=== PATIENT | male | born 1940 | race Caucasian/White ===

== ENCOUNTER → 2017-08-28 09:36 | Outpatient (CLI) | payer MEDICARE, BC, SELFPAY ==
--- NOTE | 2017-08-31 08:44 | LEAS ---
Arterial Study - Arterial Study Arterial Study: This is a 77-year-old male with a history of coronary artery disease, myocardial infarction, and hyperlipidemia. The patient presents with physical findings consistent with peripheral arterial occlusive disease, and ischemic changes in the distal lower extremities. Suspecting the presence of atherosclerotic peripheral arterial occlusive disease, the patient was brought to the noninvasive vascular laboratory at this time for the purpose of bilateral noninvasive lower extremity arterial assessment. Doppler signal assessment was used to evaluate the pulses at ankle level bilaterally. The posterior tibial and dorsalis pedis pulses were triphasic bilaterally. Segmental limb pressures were obtained bilaterally. The right ankle pressure, as determined by posterior tibial pulse, was measured at 168 mmHg. The right ankle pressure, as determined by dorsalis pedis pulse, could not be determined due to the noncompressibility of the vasculature. The right digital pressure was measured at 144 mmHg. The left ankle pressure, as determined by posterior tibial pulse, was measured at 215 mmHg. The left ankle pressure, as determined by dorsalis pedis pulse, could not be determined due to the noncompressibility of the vasculature. The left digital pressure was measured at 36 mmHg. Pulse-volume recordings were obtained bilaterally and segmentally. Waveform amplitudes appeared to be markedly diminished bilaterally at all digital levels, but for the right first digit. Resting ankle-brachial indices were calculated bilaterally. The resting right ankle-brachial index was calculated to be 1.27. The resting left ankle-brachial index was calculated to be 1.63. Digital-brachial indices were calculated bilaterally. The right digital-brachial index was calculated to be 1.09. The left digital-brachial index was calculated to be 0.27. Impression: Based upon the findings of this resting noninvasive lower extremity study, there is evidence of arterial calcification bilaterally. The arterial tree is noncompressible at ankle level bilaterally based upon dorsalis pedis pulse assessment. Triphasic waveforms were noted at ankle level bilaterally, which suggests relatively normal arterial flow at this level. The resting right ankle-brachial index appears to be normal. The resting left ankle-brachial index appears to be supra-normal. The presence of arterial calcification may artifactually elevate pressures and indices, with results that may not accurately reflect the presence of arterial occlusive disease. The right digital-brachial index is normal. The left digital-brachial index is severely diminished, suggesting the presence of severe, distal, small-vessel arterial occlusive disease in the left lower extremity, for which clinical correlation is advised.
--- NOTE | 2017-08-31 08:50 | LEAS_ITS ---
Arterial Study - Arterial Study Arterial Study: This is a 77-year-old male with a history of coronary artery disease, myocardial infarction, and hyperlipidemia. The patient presents with physical findings consistent with peripheral arterial occlusive disease, and ischemic changes in the distal lower extremities. Suspecting the presence of atherosclerotic peripheral arterial occlusive disease, the patient was brought to the noninvasive vascular laboratory at this time for the purpose of bilateral noninvasive lower extremity arterial assessment. Doppler signal assessment was used to evaluate the pulses at ankle level bilaterally. The posterior tibial and dorsalis pedis pulses were triphasic bilaterally. Segmental limb pressures were obtained bilaterally. The right ankle pressure, as determined by posterior tibial pulse, was measured at 168 mmHg. The right ankle pressure, as determined by dorsalis pedis pulse, could not be determined due to the noncompressibility of the vasculature. The right digital pressure was measured at 144 mmHg. The left ankle pressure, as determined by posterior tibial pulse, was measured at 215 mmHg. The left ankle pressure, as determined by dorsalis pedis pulse, could not be determined due to the noncompressibility of the vasculature. The left digital pressure was measured at 36 mmHg. Pulse-volume recordings were obtained bilaterally and segmentally. Waveform amplitudes appeared to be markedly diminished bilaterally at all digital levels , but for the right first digit. Resting ankle-brachial indices were calculated bilaterally. The resting right ankle-brachial index was calculated to be 1.27. The resting left ankle- brachial index was calculated to be 1.63. Digital-brachial indices were calculated bilaterally. The right digital- brachial index was calculated to be 1.09. The left digital-brachial index was calculated to be 0.27. Impression: Based upon the findings of this resting noninvasive lower extremity study, there is evidence of arterial calcification bilaterally. The arterial tree is noncompressible at ankle level bilaterally based upon dorsalis pedis pulse assessment. Triphasic waveforms were noted at ankle level bilaterally, which suggests relatively normal arterial flow at this level. The resting right ankle-brachial index appears to be normal. The resting left ankle- brachial index appears to be supra-normal. The presence of arterial calcification may artifactually elevate pressures and indices, with results that may not accurately reflect the presence of arterial occlusive disease. The right digital-brachial index is normal. The left digital-brachial index is severely diminished, suggesting the presence of severe, distal, small-vessel arterial occlusive disease in the left lower extremity, for which clinical correlation is advised.
== END ==
PROVIDERS: Family Provider Family Medicine; PCP Family Medicine; Visit Provider Podiatrist
DX: I73.9 Peripheral vascular disease, unspecified (principal)
CPT/HCPCS: 93922

== ENCOUNTER → 2017-08-28 10:19 | Outpatient (CLI) | payer MEDICARE, BC, SELFPAY ==
[2017-08-28 11:43] LABS: AST(SGOT) 33 U/L (15-37); Alanine Aminotransfer ALT/SGPT 50 U/L (16-61); Albumin, Serum 3.7 g/dL (3.2-5.0); Alkaline Phosphatase 94 U/L (45-117); Bilirubin, Direct 0.33 mg/dL (0.00-0.30); Cholesterol 94 mg/dL (200); Globulin 3.4 g/dL (2.2-4.2); High Density Lipoprotein 61 mg/dL; Protein, Total 7.1 g/dL (6.4-8.2); Triglycerides 44 mg/dL; Very Low Density Lipoprotein 9 mg/dL (5-40)
== END ==
PROVIDERS: Family Provider Family Medicine; PCP Family Medicine; Visit Provider Nurse Practitioner Family
DX: E78.5 Hyperlipidemia, unspecified (principal); I25.10 Atherosclerotic heart disease of native coronary artery without angina pectoris; I48.0 Paroxysmal atrial fibrillation; I10 Essential (primary) hypertension; Z79.899 Other long term (current) drug therapy; I73.9 Peripheral vascular disease, unspecified
CPT/HCPCS: 36415; 80061; 80076; 93922

== ENCOUNTER → 2018-01-21 11:11 | Outpatient (CLI) | payer MEDICARE, BC, SELFPAY ==
[2018-01-21 15:43] LABS: Absolute Lymphocyte Count 0.76 X10^3/ul (0.83-4.51); Basophil# 0.02 X10^3/uL; Basophil% 0.4 % (0-1); Eosinophils% 1.8 % (0-5); Hematocrit 41.6 % (40-54); Hemoglobin 13.6 g/dl (13.0-16.5); Lymphocyte # 0.76 X10^3/ul (4.0); Lymphocyte % 13.9 % (19-41); Mean Corp Hgb Conc 32.7 g/gl (32-36); Mean Corpuscular Hgb 30.3 pg (27.0-32.0); Mean Corpuscular Volume 92.7 fL (80-94); Mean Platelet Vol. 10.8 fl (6.2-12.0); Monocyte# 0.59 X10^3/uL; Monocyte% 10.8 % (0-10); Neutrophil # 3.95 X10^3/uL (2.7-7.7); Neutrophil % 72.5 % (47-70); Platelet Count 237 K/mm3 (150-450); RBC Distribution Width CV 13.1 % (11.6-14.6); RBC Distribution Width SD 43.9 fl (35.1-43.9); Red Blood Count 4.49 M/mm3 (4.6-6.2); White Blood Count 5.5 K/mm3 (4.4-11.0)
[2018-01-21 15:48] LABS: POSITIVE COUNT NO; POSITIVE DIFFERENTIAL NO; POSITIVE MORPHOLOGY NO
[2018-01-21 16:00] LABS: BUN 17 mg/dL (7-18); Creatinine, Serum 0.73 mg/dL (0.70-1.30); EST Glomerular Filtration Rate 110 mL/min (>60); Glucose 90 mg/dL (74-106)
[2018-01-21 16:01] LABS: AST(SGOT) 25 U/L (15-37); Alanine Aminotransfer ALT/SGPT 46 U/L (16-61); Albumin, Serum 3.8 g/dL (3.2-5.0); Alkaline Phosphatase 89 U/L (45-117); Anion Gap 8 (5-15); BUN/Creat Ratio 23.2 RATIO (10-20); Calcium,Total 8.5 mg/dL (8.5-10.1); Chloride 104 mmol/L (98-107); Est Glom Filt Rate - Afr Amer 133 mL/min (>60); Globulin 3.7 g/dL (2.2-4.2); Potassium 4.2 mmol/L (3.5-5.1); Protein, Total 7.5 g/dL (6.4-8.2); Sodium Level 142 mmol/L (136-145); Thyroid Stim Hormone (TSH) 1.37 uIU/mL (0.358-3.74)
== END ==
PROVIDERS: Family Provider Family Medicine; PCP Family Medicine; Visit Provider Family Medicine
DX: I25.10 Atherosclerotic heart disease of native coronary artery without angina pectoris (principal); I48.91 Unspecified atrial fibrillation; I10 Essential (primary) hypertension
CPT/HCPCS: 36415; 80053; 84443; 85025

== ENCOUNTER → 2018-03-07 14:27 | Outpatient (CLI) | payer MEDICARE, BC, SELFPAY ==
[2018-03-07 15:27] LABS: AST(SGOT) 20 U/L (15-37); Alanine Aminotransfer ALT/SGPT 37 U/L (16-61); Albumin, Serum 3.7 g/dL (3.2-5.0); Alkaline Phosphatase 101 U/L (45-117); Bilirubin, Direct 0.29 mg/dL (0.00-0.30); Cholesterol 91 mg/dL (200); Globulin 3.9 g/dL (2.2-4.2); High Density Lipoprotein 52 mg/dL; Protein, Total 7.6 g/dL (6.4-8.2); Triglycerides 66 mg/dL; Very Low Density Lipoprotein 13 mg/dL (5-40)
== END ==
PROVIDERS: Family Provider Family Medicine; PCP Family Medicine; Visit Provider Nurse Practitioner Family
DX: E78.5 Hyperlipidemia, unspecified (principal); Z79.899 Other long term (current) drug therapy
CPT/HCPCS: 36415; 80061; 80076

== ENCOUNTER 2018-06-20 02:54 | Emergency (ER) | payer MEDICARE, BC, SELFPAY ==
[2018-06-20 02:55] VITALS: BP 88/74; PULSE 64; RESP 16; TEMP 36.8; O2SAT 100; BMI 34.9
--- NOTE | 2018-06-20 03:30 | RAD_ITS ---
HISTORY: fall, right sided hip pain COMPARISON: CT abdomen and pelvis 09/14/2016 FINDINGS: XR right Hip Unilateral with Pelvis 3 Views: No fracture, dislocation, or acute disease identified. Mild narrowing of both hip joints. Left hip mild subchondral cyst formation. Degenerative spondylosis of the lower lumbar spine. The SI joints are not widened. Partial ankylosis of the SI joints bilaterally, worse on the left. RAD/HIP, UNI W/ Pelvis 2-3 Views IMPRESSION: 1. No fracture or acute osseous abnormality. 2. Chronic degenerative changes, details above. at 0408 Reported and signed by: Olivier Yuen MD Electronically Signed: Olivier Yuen, at 4:07 EST Tel , Service support ,
[2018-06-20 03:31] VITALS: BP 90/40; PULSE 51; RESP 17
--- NOTE | 2018-06-20 03:33 | ED.RN ---
PT PRESENTED PALE WITH A SBP IN THE 80'S.IV STARTED AND FLUID INITATED.MD AWARE.MANUAL BP CONFIRMED 90/40 AND PER MD IV FLUIDS STOPPED.
--- NOTE | 2018-06-20 03:40 | ED.VIS.GEN ---
History of Present Illness Chief Complaint: Fall Informant: Patient Onset: Today - JPTA Context: Sudden Onset Timing: Continuous Quality: sore Location: right posterior thigh/buttock Current Severity: Mild Maximum Severity: Moderate Worsened by: movement, palpation Relieved by: remaining still Associated Symptoms: off-balance earlier. no other injuries. 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 Therefore, he got up to light some candles to make sure there was light for her. He uses a cane because he has issues with balance, and he was holding the candle in one hand and the striker in the other, not holding his cane, felt off balance causing him to fall down to the floor against his right buttock and proximal posterior thigh very hard. He had trouble getting up but that is because of a pre-existing knee problem. Afterwards, after his son helped him up, he was able to weight-bear without any difficulty, and I did not make the pain worse. He has no groin pain. He has chronic paresthesias in his left foot, those are unchanged. No other injuries, states he has no pain in his back, head, neck, he did not injure those. Of note, patient states his blood pressure usually runs low. He has been 100 over 40s in the past. He denies feeling any lightheadedness tonight or having any recent illness. - Past Medical History (1) PAD (peripheral artery disease) Status: Chronic (2) Hyperlipidemia Status: Chronic (3) Hypertension Status: Chronic (4) Old myocardial infarction Status: Chronic (5) Paroxysmal atrial fibrillation Status: Chronic Past Medical History - Allergies and Home Meds Allergies/Adverse Reactions: Allergies No Known Allergies Allergy (Verified 06/20/18 03:01) Primary Care Physician: Donte Wang MD [Primary Care Provider] - Surgical History: rotator cuff repair - bilateral shoulder rotator cuff repair., - - bilateral knees repair of quadricepts. Piolonidal cystectomy. Cardiac stent. Lives: Spouse/ Significant Other Smoking Status: Never smoker Review of Systems General: Denies: Chills, Fever Eyes: Denies: Visual changes - bilaterally, Diplopia ENT: Denies: Rhinorrhea, Sore throat Cardiovascular: Denies: Chest pain, Palpitations Respiratory: Denies: Dyspnea, Cough Gastrointestinal: Denies: Abdominal pain, Nausea, Vomiting, Diarrhea Musculoskeletal: Reports: Extremity Pain - R thigh/buttock. Denies: Neck pain, Back pain Skin: Denies: Rash, Wounds Neurological: Reports: Parasthesia - left foot, chronic. Denies: Headache, Weakness Physical Exam Vital Signs/Narrative: Vital Signs Temp Pulse Resp BP Pulse Ox 06/20/18 03:31 51 L 17 90/40 L 06/20/18 02:55 98.2 F 64 16 88/74 L 100 Inital Vital Signs reviewed: Yes General: Well nourished, Well developed Head: Normocephalic, Atraumatic Eyes: Perrl, EOMI ENT: Moist mucous membranes, No rhinorrhea. Negative for: Sinus tenderness Neck: Supple - FROM, Nontender Cardiovascular: Regular rate, Regular rhythm, No murmurs Respiratory: No distress, CTA bilaterally, Chest nontender Abdomen: Soft, Nontender, Nondistended, Normal bowel sounds Back: Nontender, Normal Inspection. Negative for: Spinal tenderness Extremities: Tenderness - mild posterior R proximal thigh just distal to ischial tuberosity, which is nontender. FROM hip w/o groin pain. FROM all other joints of all 4 ext's. No leg shortening. All right thigh compartments soft, nondistended. Skin: Normal color, No rash, No Trauma - skin of affected area inspected and normal. Neurological: Alert, Oriented x3, Cranial nerves II-XII grossly intact, Normal Strength, Normal Sensation Psychological: Normal affect Diagnostic/Tx/Re-eval Clinical Impression(s) from Imaging Studies Hip/Pelvis X-Ray 06/20/18 03:30 IMPRESSION: 1. No fracture or acute osseous abnormality. 2. Chronic degenerative changes, details above. at 0408 Reported and signed by: Olivier Yuen MD Electronically Signed: Olivier Yuen, at 4:07 EST Tel , Service support , - Medical Decision Making X-rays are unremarkable, patient is able to ambulate, he was given some Tylenol and reassured and he is cleared to be discharged and he is comfortable with this plan. ED Disposition - Plan for ED Patient: Disposition: Home or Assisted Living Chief Complaint: Fall Diagnosis: Contusion of left thigh, initial encounter Instructions: ED Mechanical Fall, ED Contusion Lower Ext Referrals: Donte Wang MD [Primary Care Provider] - As Needed
[2018-06-20] MEDS: Acetaminophen 500 MG Tablet 1000 MG PO (04:34)
[2018-06-20 04:43] VITALS: BP 90/40; PULSE 585; RESP 20; O2SAT 98
== END 2018-06-20 04:44 | disposition home or self-care (01) ==
PROVIDERS: Emergency Provider Emergency Medicine; Family Provider Family Medicine; PCP Family Medicine
DX: S70.12XA Contusion of left thigh, initial encounter (principal); W19.XXXA Unspecified fall, initial encounter; Y93.9 Activity, unspecified; Y92.9 Unspecified place or not applicable; R20.0 Anesthesia of skin; I73.9 Peripheral vascular disease, unspecified; E78.5 Hyperlipidemia, unspecified; I25.2 Old myocardial infarction; I48.0 Paroxysmal atrial fibrillation; Z95.5 Presence of coronary angioplasty implant and graft; Z79.82 Long term (current) use of aspirin; Z79.899 Other long term (current) drug therapy
CPT/HCPCS: 73502; 99285; J7030; A4216

== ENCOUNTER → 2018-07-03 14:59 | Outpatient (CLI) | payer MEDICARE, BC, SELFPAY ==
[2018-06-20 02:55] VITALS: BMI 34.9
--- NOTE | 2018-07-03 15:05 | VDLE_ITS ---
Reason For Study: LEG SWELLING RIGHT LEFT CFV is compressible, spontaneous, phasic, CFV is compressible, spontaneous, phasic, competent and demonstrates normal competent, and demonstrates normal augmentation. augmentation. GSV is normal. FV is compressible, spontaneous, phasic, competent and demonstrates normal augmentation. POP V is compressible, spontaneous, phasic, competent and demonstrates normal augmentation. T/P Trunk is compressible. PTV is compressible. RT PerV is compressible. Procedure Exam performed in department. A preliminary report was called and/or faxed to Dr. Gleason. Interpretation Summary Deep veins of the right lower extremity are patent and compressible segmentally. There is no evidence of right lower extremity deep vein thrombosis. Valvular competence appears intact within the proximal deep venous system on the right . The right greater saphenous vein appears patent and compressible segmentally. Ordering Physician: Ivonne Gleason Referring Physician: Ivonne Gleason Performed By: Giovana Gonzalez RVT
== END ==
PROVIDERS: Family Provider Family Medicine; PCP Family Medicine; Referring Provider Podiatrist; Visit Provider Podiatrist
DX: R60.0 Localized edema (principal); I82.409 Acute embolism and thrombosis of unspecified deep veins of unspecified lower extremity; R52 Pain, unspecified
CPT/HCPCS: 93971

== ENCOUNTER → 2018-11-26 10:24 | Outpatient (CLI) | payer MEDICARE, BC, SELFPAY ==
[2018-09-25 11:21] VITALS: BMI 33.0
[2018-11-26 12:49] LABS: AST(SGOT) 26 U/L (15-37); Alanine Aminotransfer ALT/SGPT 45 U/L (16-61); Albumin, Serum 3.8 g/dL (3.2-5.0); Alkaline Phosphatase 125 U/L (45-117); Bilirubin, Direct 0.21 mg/dL (0.00-0.30); Cholesterol 96 mg/dL (200); Globulin 3.8 g/dL (2.2-4.2); High Density Lipoprotein 57 mg/dL; Protein, Total 7.6 g/dL (6.4-8.2); Triglycerides 52 mg/dL; Very Low Density Lipoprotein 10 mg/dL (5-40)
== END ==
PROVIDERS: Family Provider Family Medicine; PCP Family Medicine; Referring Provider Internal Medicine Cardiovascular Disease; Visit Provider Internal Medicine Cardiovascular Disease
DX: E78.5 Hyperlipidemia, unspecified (principal)
CPT/HCPCS: 36415; 80061; 80076

== ENCOUNTER 2020-01-02 14:23 | Inpatient (IN) | payer MEDICARE, BC, SELFPAY ==
[2019-03-30 10:15] VITALS: BMI 34.5
[2020-01-02 14:25] VITALS: BP 131/83; PULSE 63; RESP 18; TEMP 36.3; O2SAT 98; BMI 29.5
--- NOTE | 2020-01-02 15:05 | ED.DCSUM_ITS ---
History of Present Illness Chief Complaint: Wound Informant: Patient Narrative: Patient is a 79-year-old male with a history of CAD with stents placed who presents to the emergency department for swelling, pain, erythema and warmth of his right lower extremity. This initially started less than 1 week ago with a skin flap on the lateral aspect of his right foot. 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 Starting just yesterday he noticed the redness and warmth. It became very swollen overnight. He denies any history of blood clots in his legs. He states it is very tender to walk on the foot. No pain with passive range of motion of the toes, ankle. He has had a history of cellulitis in that leg before in the past. It has been multiple months since he has been on antibiotics for this issue before. He denies any systemic symptoms including any fever/chills or nausea/vomiting. Past Medical History - Allergies and Home Meds Allergies/Adverse Reactions: Allergies No Known Allergies Allergy (Verified 01/02/20 14:24) Surgical History: rotator cuff repair - bilateral shoulder rotator cuff repair., - - bilateral knees repair of quadricepts. Piolonidal cystectomy. Cardiac stent. Smoking Status: Never smoker - Family History Maternal Family History: Family History (Last Reviewed 01/02/20 @ 17:[address] Ernesto Bals DO) Mother CHF (congestive heart failure) Paternal Family History: Family History (Last Reviewed 01/02/20 @ 17:[address] Ernesto Blas DO) Mother CHF (congestive heart failure) Family History: Reports: - - emphysema Review of Systems All systems negative except as indicated General: Denies: Chills, Fever, Sweats Eyes: Denies: Visual changes - bilaterally, Diplopia ENT: Denies: Rhinorrhea, Sore throat Cardiovascular: Denies: Chest pain, Palpitations Respiratory: Denies: Dyspnea, Cough, Dyspnea on exertion Gastrointestinal: Denies: Abdominal pain, Nausea, Vomiting, Diarrhea Musculoskeletal: Reports: Swelling, Extremity Pain. Denies: Back pain Skin: Reports: Rash, Wounds Neurological: Denies: Headache, Weakness, Numbness Physical Exam Vital Signs/Narrative: Vital Signs Temp Pulse Resp BP Pulse Ox 01/02/20 14:25 97.4 F L 63 18 131/83 H 98 Inital Vital Signs reviewed: Yes General: Well nourished, Well developed, No Acute Distress Head: Normocephalic, Atraumatic Eyes: Perrl, EOMI ENT: Moist mucous membranes, No rhinorrhea Neck: Supple, Nontender Cardiovascular: Regular rate, Regular rhythm, No murmurs Respiratory: No distress, CTA bilaterally, Chest nontender Abdomen: Soft, Nontender, Nondistended, Normal bowel sounds Back: Nontender, Normal Inspection Extremities: Nontender, No edema, Edema - Right LE Skin: - - Entire right foot and circumferentially around his right calf is er ythema, warmth and tenderness palpation. He has 2+ pitting edema of that leg. No swelling in the other leg. The right lateral foot has an open sore. This is foul-smelling. Neurological: Alert, Oriented x3, Cranial nerves II-XII grossly intact, Normal Strength, Normal Sensation Psychological: Normal affect, Normal Mood Diagnostic/Tx/Re-eval - Medical Decision Making Patient presents to emerge department for cellulitis of his right lower extremity. This is circumferential. Upon arrival vital signs within normal limits. Does not appear in any acute distress. We will start him on Ancef and obtain basic lab work. Patient's lab work did not reveal any significant acute abnormality. Fo rtunately we are unable to do an ultrasound test at this time due to availability. The fact that this has progressed so rapidly I do feel patient be better be served in a hospital setting. Will require an ultrasound once available. Continued on antibiotics. Will check a d-dimer at request of hospitalist. X-ray is currently pending to evaluate for any gas producing organisms or osteomyelitis. This was all made aware to the patient, he understands and is agreeable with this plan. ED Disposition - Plan for ED Patient: Disposition: [facility] Diagnosis: Cellulitis of right lower extremity, Right leg swelling
[2020-01-02] MEDS: Cefazolin 1 GM/50 ML BAG IV ×2 (15:15→21:40)
[2020-01-02 15:16] LABS: Absolute Lymphocyte Count 0.96 X10^3/uL (0.83-4.51); Absolute Neutrophil Count 5.2 X10^3/uL (2.0-7.7); Basophil# 0.02 X10^3/uL; Basophil% 0.3 % (0-1); Eosinophil# 0.12 X10^3/uL; Eosinophils% 1.7 % (0-5); Hemoglobin 12.9 g/dL (13.0-16.5); Lymphocyte # 0.96 X10^3/ul (4.0); Lymphocyte % 13.2 % (19-41); Mean Corp Hgb Conc 32.3 g/dL (32-36); Mean Corpuscular Hgb 30.1 pg (27.0-32.0); Mean Corpuscular Volume 93.5 fL (80-94); Mean Platelet Vol. 10.3 fl (6.2-12.0); Monocyte# 0.86 X10^3/uL; Monocyte% 11.9 % (0-10); NRBC Flagged by Analyzer 0 % (0-5); Neutrophil # 5.23 X10^3/uL (2.7-7.7); Neutrophil % 72.1 % (47-70); POSITIVE MORPHOLOGY YES; Platelet Count 300 K/mm3 (150-450); RBC Distribution Width SD 44.6 fl (35.1-43.9); Red Blood Count 4.28 M/mm3 (4.6-6.2); White Blood Count 7.3 K/mm3 (4.4-11.0)
[2020-01-02 15:32] LABS: Anion Gap 4 (5-15); BUN 16 mg/dL (7-18); BUN/Creat Ratio 23.2 RATIO (10-20); Calcium,Total 8.8 mg/dL (8.5-10.1); Chloride 100 mmol/L (98-107); Creatinine, Serum 0.69 mg/dL (0.70-1.30); EST Glomerular Filtration Rate 117 mL/min (>60); Est Glom Filt Rate - Afr Amer 142 mL/min (>60); Glucose 110 mg/dL (74-106); Potassium 3.9 mmol/L (3.5-5.1); Sodium Level 137 mmol/L (136-145)
[2020-01-02 15:34] LABS: Differential Indicated SCAN CRITERIA MET
[2020-01-02 16:21] LABS: Atypical Lymphocyte RARE %; Differential Comment SCANNED
[2020-01-02 16:24] VITALS: BP 141/82; PULSE 72; RESP 18; O2SAT 98
--- NOTE | 2020-01-02 16:34 | RAD_ITS ---
STUDY: X-RAY - RIGHT FOOT CLINICAL: Male, 79 years old. History of chronic wound, redness and swelling. TECHNIQUE: 3 view(s) of the foot. COMPARISON: None. FINDINGS: There is an enthesophyte involving the posterior superior calcaneus at the site of insertion of the Achilles tendon. There is a plantar calcaneal spur. Normal visualized subtalar, talonavicular, calcaneocuboid, tarsal and tarsometatarsal articulations. Normal metatarsi. There is degenerative arthrosis of the metatarsophalangeal joint of the hallux . Normal tibial and fibular sesamoid bones. There is lateral deviation of the interphalangeal joint of the great toe. Normal phalanges of the great toe. There is flexion deformity of the metatarsophalangeal joints. 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 There may be an old fracture of the proximal phalanx of the fifth toe. There is soft tissue swelling of the fifth metatarsophalangeal joint. RAD/Foot min 3 Views IMPRESSION: 1. Degenerative changes as described above. 2. Soft tissue swelling. 3. No demonstrated definite destructive bony process. 4. If osteomyelitis is suspected clinically, three-phase bone scan is recommended. Electronically Signed: Marek Salgado MD at 17:39 EDT Tel , Service support ,
--- NOTE | 2020-01-02 16:35 | HP.PCM_ITS ---
<Etienne Roth - Last Filed: 01/02/20 16:35> Problem List (1) Cellulitis Status: Acute (2) CAD (coronary artery disease) Status: Chronic (3) Hyperlipidemia Status: Chronic Qualifiers: Hyperlipidemia type: mixed hyperlipidemia Qualified Code(s): E78.2 - Mixed hyperlipidemia (4) Hypertension Status: Chronic Qualifiers: Hypertension type: essential hypertension Qualified Code(s): I10 - Essential (primary) hypertension (5) Paroxysmal atrial fibrillation Status: Chronic History of Present Illness Date of Admission: 01/02/20 Chief Complaint: RLE infection The patient is a 79 year old M with pmhx of PAD with chronic right foot wound near the fifth digit on the plantar/lateral aspect for whom he follows Dr. Gleason, also hx CAD wit prior stents, HTN, HLD, who presents to the ER with c/o RLE infection. The patient noticed that his chronic right foot wound had an enlarged blister forming about 3 weeks ago. He went to see Dr. Gleason who performed some office based local debridement. On Saturday he had increased burning pain and on saturday night started having erythema of the area but it was localized. This morning he woke up and his whole foot and much of his distal leg were swollen, red, and hot. His wound is open but without purulent drainage or abscess. He has no fevers or chills. He has no cough/SOB, no nausea vomiting. He has some fatigu e, otherwise he feels well. He has not recently had any surgery and has no history of blood clots. [] Past Medical History Past Medical History (Chronic Problems): Chronic Problems (Last Reviewed 03/30/19 @ 10:50 by JOCELYN Dc) CAD (coronary artery disease) (Chronic) PAD (peripheral artery disease) (Chronic) intermediate use of drug (Chronic) Antithrombotics/antiplatelets Hyperlipidemia (Chronic) Hypertension (Chronic) S/P coronary artery stent placement (Chronic) PCI- XU- Prox RCA, Prox-Mid RCA and RPLB (Synergy Stents) 01/11/16 @ [facility] Old myocardial infarction (Chronic) Atherosclerotic heart disease of [place] coronary artery without angina pectoris (Chronic) PCI- XU- Prox RCA, Prox-Mid RCA and RPLB (Synergy Stents) 01/11/16 @ [facility] Paroxysmal atrial fibrillation (Chronic) Dilated aortic root (Chronic) Medical History: Medical History (Last Reviewed 03/30/19 @ 10:50 by JOCELYN Dc) PAD (peripheral artery disease) (Chronic) I73.9 medical terminologist use of drug (Chronic) Z79.899 Antithrombotics/antiplatelets Hyperlipidemia (Chronic) E78.5 Hypertension (Chronic) I10 Old myocardial infarction (Chronic) I25.2 Atherosclerotic heart disease of [place] coronary artery without angina pectoris (Chronic) I25.10 PCI- XU- Prox RCA, Prox-Mid RCA and RPLB (Synergy Stents) 01/11/16 @ [facility] Paroxysmal atrial fibrillation (Chronic) I48.0 Dilated aortic root (Chronic) I77.810 Allergies No Known Allergies Allergy (Verified 01/02/20 14:24) Home Medications: Ambulatory Orders Medication Instructions Recorded Aspirin [Adult Low Dose Aspirin EC] 81 mg PO DAILY 01/30/16 finasteride 5 mg tablet 5 mg PO QDAY 07/18/17 acetaminophen 500 mg tablet 500 mg PO Q4H PRN 09/25/18 atorvastatin 80 mg tablet 80 mg PO QHS #90 tab 03/30/19 clopidogrel 75 mg tablet See Rx Instructions .ROUTE 12/21/19 .COMPLEX #90 tablet Surgical History: Surgical History (Last Reviewed 03/30/19 @ 10:50 by JOCELYN Dc) S/P coronary artery stent placement (Chronic) Z95.5 PCI- XU- Prox RCA, Prox-Mid RCA and RPLB (Synergy Stents) 01/11/16 @ [facility] History of knee surgery Z98.890 bilat History of pilonidal cyst Z87.2 S/P rotator cuff repair Z98.890 bilat Surgical History: rotator cuff repair - bilateral shoulder rotator cuff repair., - - bilateral knees repair of quadricepts. Piolonidal cystectomy. Cardiac stent. Psychiatric History: No pertinent psych hx Lives: Alone Smoking Status: Never smoker Tobacco Use: Non-smoker Alcohol: Occasional Drugs: None - *Family History Maternal Family History: Family History (Last Reviewed 01/02/20 @ 16:40 by JOCELYN Willoughby) Mother CHF (congestive heart failure) Paternal Family History: Family History (Last Reviewed 01/02/20 @ 16:40 by JOCELYN Willoughby) Mother CHF (congestive heart failure) History Items: - - emphysema Review of Systems Constitutional: Reports: Fatigue. Denies: Chills, Fever, Weight Change HEENT: Denies: Head Aches, Sinus Congestion, Sinus Drainage Cardiovascular: Denies: Chest Pain, Palpitations Respiratory: Denies: Cough, Shortness of breath at rest, Sputum production Gastrointestinal: Denies: Abdominal Pain, Nausea, Vomiting Genitourinary: Denies: Dysuria Musculoskeletal: Denies: Joint Pain, Joint Tenderness Skin: Reports: Lesions, Rash, Skin Changes, Wounds Neurological: Denies: Numbness, Tingling, Focal weakness Psychiatric: Denies: Anxiety, Depression, Homicidal Ideations, Suicidal Ideations Hematologic/ Lymphatic: Denies: Easy Bruising, Easy Bleeding VTE Information - Inpt Only VTE Present on Admission: No VTE Mechan Device Prophylaxis: None VTE Pharm Prophylaxis ordered?: Yes Patient Problems: Active and Suspected Problems (Last Reviewed 03/30/19 @ 10:50 by JOCELYN Dc) Cellulitis (Acute) - Physical Exam Vitals/I&O's: Vital Signs Temp Pulse Resp BP Pulse Ox 97.4 F L 63 18 131/83 H 98 01/02/20 14:25 01/02/20 14:25 01/02/20 14:25 01/02/20 14:25 01/02/20 14:25 Oxygen Delivery Method Room Air Weight: 200 lb Body Mass Index (BMI) 29.5 Intake and Output for Last 24 Hours 12/31/19 01/01/20 01/02/20 23:59 23:59 23:59 Intake Total 50 / 50 Balance 50 / 50 General: Alert, Oriented x3, Cooperative HEENT: Atraumatic, PERRLA, EOMI, Normocephalic Neck: Supple, No JVD, Negative Carotid Bruits Lungs: Clear to auscultation, Normal air movement Cardiovascular: Regular rate, No murmurs Abdomen: Bowel Sounds Present, Soft, Non Tender Extremities: Capillary Refill Less than 3 Seconds, Diminished Peripheral Pulses, Edema - Right foot and ankle Skin: No rashes, No breakdown, Ulcer/ Wound - right foot near fifth digit pl aashish/lateral surface. surrounding erythema, edema, warmth. no lymphangitis. No purulent drainge. Musculoskeletal: No Tenderness to Palpation of Joints or Extremities Neurological: Cranial nerves II-XII grossly intact Psych/Mental Status: Normal Affect, Appropriate, Alert and oriented to time, place, person, mood and affect Laboratory Results 01/02/20 13:00: D-Dimer Quant (PE/DVT) Pending 01/02/20 15:00: WBC 7.3, RBC 4.28 L, Hgb 12.9 L, Hct 40.0, MCV 93.5, MCH 30.1, MCHC 32.3, RDW Std Deviation 44.6 H, RDW Coeff of [place] 13.0, Plt Count 300, MPV 10.3, Immature Gran % (Auto) 0.800, Neut % (Auto) 72.1 H, Lymph % (Auto) 13.2 L, [place] % (Auto) 11.9 H, Eos % (Auto) 1.7, Baso % (Auto) 0.3, Absolute Neuts (auto) 5.2, Absolute Lymphs (auto) 0.96, Nucleated RBC % 0, Differential Comment SCANNED, Atypical Lymphocytes RARE 01/02/20 15:00: Lactic Acid 1.0 01/02/20 15:00: Sodium 137, Potassium 3.9, Chloride 100, Carbon Dioxide 33.0 H, Anion Gap 4 L, BUN 16, Creatinine 0.69 L, Estim Creat Clear Calc 59.90, Est GFR (MDRD) Af Amer 142, Est GFR (MDRD) Non-Af 117, BUN/Creatinine Ratio 23.2 H, Glucose 110 H, Calcium 8.8 Assessment/Plan All Active Problems (Last Reviewed 03/30/19 @ 10:50 by JOCELYN Dc) Cellulitis (Acute) 1. Acute cellulitis RLE 2/2 infected chronic ulcer likely related to his underlying PAD - no sepsis, no fever/leukocytosis/tachycardia or tachypnea/lactic acidosis. pt otherwise feels well. Check D dimer, if positive will check venous US LE to rule out clot but this appears c/w cellulitis. No hx clots and no recent surgery. -Received cefazolin in the ER. continue beta lactam. -Denies hx mrsa, does have hx cellulitis of the leg -no prior cultures -obtain wound culture, MRSA/MSSA pcr. -consult wound care -f/u with Dr. Gleason 2. Hx CAD - hx stents - pt of Dr. Ahumada. on asp/statin/plavix 3. Hx pAfib - rate controlled, not on rate limiting meds. not on OAC due to hx of hematuria. 4. PAD - arterial study [place] [address] Quigley demonstrated arterial calcification. left digital brachial index was severely diminished, right digital was normal. Suspect progression. 5. BPH - finasteride DVT ppx: lovenox This patient was seen by Etienne Roth PA-C under the supervision of Dr. Blas <Ernesto Blas - Last Filed: 01/02/20 17:05> History of Present Illness The patient is a 79 year old M presents with a 1 day history of right lower extremity erythema and swelling. Patient had had a blister on his right lateral foot. Patient was having periodic debridements of the callus on that side but then had a blister that was unroofed. Patient presented to the emergency room and it was concerning for cellulitis patient did receive ceftezole and. D-dimer was performed and came back at 1.32. Patient states that he has been relatively immobile just due to being weak overall and this blister as well. [] Past Medical History Medical History: Medical History (Last Reviewed 01/02/20 @ 17:[address] Ernesto Blas DO) PAD (peripheral artery disease) (Chronic) I73.9 medical terminologist use of drug (Chronic) Z79.899 Antithrombotics/antiplatelets Hyperlipidemia (Chronic) E78.5 Hypertension (Chronic) I10 Old myocardial infarction (Chronic) I25.2 Atherosclerotic heart disease of [place] coronary artery without angina pectoris (Chronic) I25.10 PCI- XU- Prox RCA, Prox-Mid RCA and RPLB (Synergy Stents) 01/11/16 @ [facility] Paroxysmal atrial fibrillation (Chronic) I48.0 Dilated aortic root (Chronic) I77.810 Allergies No Known Allergies Allergy (Verified 01/02/20 14:24) Surgical History: Surgical History (Last Reviewed 01/02/20 @ 17:[address] Ernesto Blas DO) S/P coronary artery stent placement (Chronic) Z95.5 PCI- XU- Prox RCA, Prox-Mid RCA and RPLB (Synergy Stents) 01/11/16 @ [facility] History of knee surgery Z98.890 bilat History of pilonidal cyst Z87.2 S/P rotator cuff repair Z98.890 bilat Surgical History: rotator cuff repair, - Psychiatric History: No pertinent psych hx Lives: Alone Smoking Status: Never smoker Tobacco Use: Non-smoker Alcohol: Occasional Drugs: None - *Family History Maternal Family History: Family History (Last Reviewed 01/02/20 @ 17:[address] Ernesto Blas DO) Mother CHF (congestive heart failure) Paternal Family History: Family History (Last Reviewed 01/02/20 @ 17:[address] Ernesto Blas DO) Mother CHF (congestive heart failure) Review of Systems Constitutional: Reports: Fatigue. Denies: Chills, Fever, Weight Change HEENT: Denies: Head Aches, Sinus Congestion, Sinus Drainage Cardiovascular: Reports: Edema - RLE. Denies: Chest Pain, Palpitations Respiratory: Denies: Cough, Shortness of breath at rest Skin: Reports: Lesions, Rash, Skin Changes, Wounds Neurological: Denies: Focal weakness, Numbness, Tingling Psychiatric: Denies: Anxiety, Depression, Homicidal Ideations, Suicidal Ideations Hematologic/ Lymphatic: Denies: Easy Bruising, Easy Bleeding VTE Information - Inpt Only VTE Present on Admission: No VTE Mechan Device Prophylaxis: None VTE Pharm Prophylaxis ordered?: No Reason prophylaxis not ordered:: Treatment Not Indicated - Physical Exam Vitals/I&O's: Vital Signs Temp Pulse Resp BP Pulse Ox 36.8 C 72 18 141/82 H 98 01/02/20 16:42 01/02/20 16:42 01/02/20 16:42 01/02/20 16:42 01/02/20 16:42 Oxygen Delivery Method Room Air Weight: 90.718 kg Body Mass Index (BMI) 29.5 Intake and Output for Last 24 Hours 12/31/19 01/01/20 01/02/20 23:59 23:59 23:59 Intake Total 50 / 50 Balance 50 / 50 General: Alert, Cooperative HEENT: Atraumatic, Normocephalic Extremities: Capillary Refill Less than 3 Seconds, Edema - Right foot and ankle. Much larger than his left. Skin: Ulcer/ Wound, - - Mild erythema of the right anterior regalado. Psych/Mental Status: Normal Affect, Appropriate Laboratory Results 01/02/20 13:00: D-Dimer Quant (PE/DVT) 1.32 H* 01/02/20 15:00: WBC 7.3, RBC 4.28 L, Hgb 12.9 L, Hct 40.0, MCV 93.5, MCH 30.1, MCHC 32.3, RDW Std Deviation 44.6 H, RDW Coeff of [place] 13.0, Plt Count 300, MPV 10.3, Immature Gran % (Auto) 0.800, Neut % (Auto) 72.1 H, Lymph % (Auto) 13.2 L, [place] % (Auto) 11.9 H, Eos % (Auto) 1.7, Baso % (Auto) 0.3, Absolute Neuts (auto) 5.2, Absolute Lymphs (auto) 0.96, Nucleated RBC % 0, Differential Comment SCANNED, Atypical Lymphocytes RARE 01/02/20 15:00: Lactic Acid 1.0 01/02/20 15:00: Sodium 137, Potassium 3.9, Chloride 100, Carbon Dioxide 33.0 H, Anion Gap 4 L, BUN 16, Creatinine 0.69 L, Estim Creat Clear Calc 59.90, Est GFR (MDRD) Af Amer 142, Est GFR (MDRD) Non-Af 117, BUN/Creatinine Ratio 23.2 H, Glucose 110 H, Calcium 8.8 Assessment/Plan Patient seen and examined independently. Data reviewed. I agree with the above note by the physician certified nursing assistant. 1. Suspected right lower extremity DVT. D-dimer is elevated at 1.32. Though this is nonspecific given the amount of swelling I am most concerned about DVT in his right lower extremity. Patient will be initiated on weight-based enoxaparin. Check a duplex. If patient is confirmed to have a DVT in the right lower extremity then would recommend transitioning her treatment novel oral anticoagulant upon discharge and treat for 3 months. I feel that this is p rovoked as patient has had some relative immobility given overall weakness and at this lesion that he has on his right lateral foot. Patient does have some erythema which could be related with the DVT if he does have 1 the patient will also be on empiric cefazolin right now. Patient does have a history of hematuria but that is remote at this time. However, if patient does develop bleeding, then may need to consult vascular surgery for a IVC filter. 2. Debility: Patient uses a walker but feels wobbly. Physical and occupational therapy evaluate and treat. 3. VTE prophylaxis not indicated as patient already be anticoagulated. 4. Advanced care planning: Discussed with patient. Patient wishes to be DNR Comfort Care arrest. Inpatient E&M: [id number] Init Hosp L3
[2020-01-02 16:42] VITALS: BP 141/82; PULSE 72; RESP 18; TEMP 36.8; O2SAT 98
[2020-01-02 16:50] LABS: D-Dimer Quantitative (DVT/PE) 1.32 FEU/ug/m (0.27-0.49)
--- NOTE | 2020-01-02 16:56 | ED.RN ---
d-dimer high per call from md juan m notified
[2020-01-02 17:17] VITALS: BP 141/82; PULSE 72; RESP 18; TEMP 37; O2SAT 98
[2020-01-02 17:25] VITALS: BMI 29.5
[2020-01-02 17:39] VITALS: BP 156/66; PULSE 74; RESP 16; TEMP 36.8; O2SAT 98
[2020-01-02] MEDS: Enoxaparin 100 MG/ML Syringe 90 MG SC (18:03)
[2020-01-02 19:28] LABS: M R Staph aureus DNA By PCR Negative (Negative); Probe Check PASS; Staph aureus DNA By PCR POSITIVE (Negative)
[2020-01-02 20:07] VITALS: BP 122/65; PULSE 77; RESP 16; TEMP 36.5; O2SAT 98
[2020-01-02] MEDS: Atorvastatin Calcium 80 MG Tablet PO (21:35)
[2020-01-02] MEDS: Finasteride 5 MG Tablet PO (21:35)
[2020-01-03] VITALS (7 sets, daily range): BP systolic 111–143; BP diastolic 47–73; PULSE 58–75; RESP 18–20; TEMP 36.6–37.2; O2SAT 96–99
[2020-01-03] MEDS: Cefazolin 1 GM/50 ML BAG IV ×3 (05:25→21:38)
[2020-01-03] MEDS: Acetaminophen 325 MG Tablet 650 MG PO ×2 (05:49→21:38)
--- NOTE | 2020-01-03 05:55 | VDLE_ITS ---
Reason For Study: Elevated D-Dimer RIGHT LEFT GSV is normal. CFV is compressible, spontaneous, phasic, CFV is compressible, spontaneous, phasic, competent, and demonstrates normal competent and demonstrates normal augmentation. augmentation. FV is compressible, spontaneous, phasic, competent and demonstrates normal augmentation. POP V is compressible, spontaneous, phasic, competent and demonstrates normal augmentation. T/P Trunk is compressible. PTV is compressible. RT PerV is compressible. Procedure Exam performed portable in patient room. A preliminary report was called and/or faxed to strapper. Interpretation Summary There is no evidence of right lower extremity deep vein thrombosis. Right great saphenous vein appears patent and compressible segmentally. Normal flow patterns left common femoral vein Ordering Physician: Etienne Roth Referring Physician: Donte Wang Performed By: Brittney Betts, MENA, RVT
[2020-01-03 06:22] LABS: Absolute Lymphocyte Count 1.65 X10^3/uL (0.83-4.51); Absolute Neutrophil Count 3.1 X10^3/uL (2.0-7.7); Basophil# 0.04 X10^3/uL; Basophil% 0.7 % (0-1); Eosinophil# 0.18 X10^3/uL; Eosinophils% 3.1 % (0-5); Hematocrit 38.9 % (40-54); Hemoglobin 12.3 g/dL (13.0-16.5); Lymphocyte # 1.65 X10^3/ul (4.0); Lymphocyte % 28.5 % (19-41); Mean Corp Hgb Conc 31.6 g/dL (32-36); Mean Corpuscular Hgb 29.9 pg (27.0-32.0); Mean Corpuscular Volume 94.4 fL (80-94); Mean Platelet Vol. 10.4 fl (6.2-12.0); Monocyte# 0.71 X10^3/uL; Monocyte% 12.3 % (0-10); NRBC Flagged by Analyzer 0 % (0-5); Neutrophil # 3.11 X10^3/uL (2.7-7.7); Neutrophil % 53.8 % (47-70); POSITIVE MORPHOLOGY YES; Platelet Count 291 K/mm3 (150-450); Red Blood Count 4.12 M/mm3 (4.6-6.2); White Blood Count 5.8 K/mm3 (4.4-11.0)
[2020-01-03 06:54] LABS: Anion Gap 5 (5-15); BUN 20 mg/dL (7-18); BUN/Creat Ratio 26.1 RATIO (10-20); Calcium,Total 8.2 mg/dL (8.5-10.1); Chloride 101 mmol/L (98-107); Creatinine, Serum 0.77 mg/dL (0.70-1.30); EST Glomerular Filtration Rate 104 mL/min (>60); Est Glom Filt Rate - Afr Amer 126 mL/min (>60); Glucose 93 mg/dL (74-106); Potassium 4.3 mmol/L (3.5-5.1); Sodium Level 136 mmol/L (136-145)
[2020-01-03 07:05] LABS: Differential Indicated SCAN CRITERIA MET
[2020-01-03 07:07] LABS: Atypical Lymphocyte RARE %
--- NOTE | 2020-01-03 07:36 | NURSING ---
supervisor endless track vehicle notified of STAT r/o DVT venous duplex order
[2020-01-03] MEDS: Aspirin E.C. 81 MG Tablet PO (08:09)
[2020-01-03] MEDS: Clopidogrel Bisulfate 75 MG Tablet PO (10:48)
[2020-01-03] MEDS: Enoxaparin 100 MG/ML Syringe 90 MG SC (10:49)
--- NOTE | 2020-01-03 13:15 | PCM.PN.HOSP ---
<Etienne Roth - Last Filed: 01/03/20 13:15> Patient Problems: Active and Suspected Problems (Last Reviewed 01/02/20 @ 17:[address] Ernesto Blas DO) Cellulitis (Acute) Cellulitis of right lower extremity (Acute) Right leg swelling (Acute) Reason for Visit: nonhealing wound right foot, cellulitis. Subjective: c/o muscle spasms right leg, has frequent restless legs in bed at home. no fever/chills overnight. no nausea/vomiting/diarrhea. Vitals/I&O's: Vital Signs Temp Pulse Resp BP Pulse Ox 97.8 F 60 20 H 114/62 99 01/03/20 08:16 01/03/20 10:58 01/03/20 10:58 01/03/20 08:16 01/03/20 10:58 Oxygen Delivery Method Room Air Weight: 199 lb 15.983 oz Body Mass Index (BMI) 29.5 Intake and Output for Last 24 Hours 01/01/20 01/02/20 01/03/20 23:59 23:59 23:59 Intake Total 350 / 350 358.25 / 358.25 Output Total 275 / 275 Balance 75 / 75 358.25 / 358.25 General: Alert, Oriented x3, Cooperative HEENT: Atraumatic, PERRLA, EOMI, Normocephalic Neck: Supple, No JVD, Negative Carotid Bruits Lungs: Clear to auscultation, Normal air movement Cardiovascular: Regular rate, No murmurs Abdomen: Bowel Sounds Present, Soft, Non Tender Extremities: No edema, Capillary Refill Less than 3 Seconds Skin: No rashes, No breakdown, - - ongoing edema, erythema, warmth, tenderness to palp. no lymphangitis. Musculoskeletal: No Tenderness to Palpation of Joints or Extremities Neurological: Cranial nerves II-XII grossly intact Psych/Mental Status: Normal Affect, Appropriate Microbiology Past 72 Hours 01/02/20 17:51 Wound - Right Foot Gram Stain - Final 01/02/20 17:51 Wound - Right Foot Wound Culture - Preliminary Staphylococcus species Beta streptococcus Gram positive emily Laboratory Results 01/02/20 13:00: D-Dimer Quant (PE/DVT) 1.32 H* 01/02/20 15:00: WBC 7.3, RBC 4.28 L, Hgb 12.9 L, Hct 40.0, MCV 93.5, MCH 30.1, MCHC 32.3, RDW Std Deviation 44.6 H, RDW Coeff of [place] 13.0, Plt Count 300, MPV 10.3, Immature Gran % (Auto) 0.800, Neut % (Auto) 72.1 H, Lymph % (Auto) 13.2 L, [place] % (Auto) 11.9 H, Eos % (Auto) 1.7, Baso % (Auto) 0.3, Absolute Neuts (auto) 5.2, Absolute Lymphs (auto) 0.96, Nucleated RBC % 0, Differential Comment SCANNED, Atypical Lymphocytes RARE 01/02/20 15:00: Lactic Acid 1.0 01/02/20 15:00: Sodium 137, Potassium 3.9, Chloride 100, Carbon Dioxide 33.0 H, Anion Gap 4 L, BUN 16, Creatinine 0.69 L, Estim Creat Clear Calc 59.90, Est GFR (MDRD) Af Amer 142, Est GFR (MDRD) Non-Af 117, BUN/Creatinine Ratio 23.2 H, Glucose 110 H, Calcium 8.8 01/02/20 17:51: S.aureus Protein A PCR POSITIVE H, MRSA (PCR) Negative 01/03/20 05:55: WBC 5.8, RBC 4.12 L, Hgb 12.3 L, Hct 38.9 L, MCV 94.4 H, MCH 29.9, MCHC 31.6 L, RDW Std Deviation 45.0 H, RDW Coeff of [place] 13.0, Plt Count 291, MPV 10.4, Immature Gran % (Auto) 1.600 H, Neut % (Auto) 53.8, Lymph % (Auto) 28.5, [place] % (Auto) 12.3 H, Eos % (Auto) 3.1, Baso % (Auto) 0.7, Absolute Neuts (auto) 3.1, Absolute Lymphs (auto) 1.65, Nucleated RBC % 0, Atypical Lymphocytes RARE 01/03/20 05:55: Sodium 136, Potassium 4.3, Chloride 101, Carbon Dioxide 30.0, Anion Gap 5, BUN 20 H, Creatinine 0.77, Estim Creat Clear Calc 59.90, Est GFR (MDRD) Af Amer 126, Est GFR (MDRD) Non-Af 104, BUN/Creatinine Ratio 26.1 H, Glucose 93, Calcium 8.2 L Current Medications Acetaminophen (Tylenol) 650 mg PO Q6H PRN PRN PRN Reason: Pain Score 1-10/10 Last Admin: 01/03/20 05:49 Dose: 650 mg Documented by: [facility] Last Admin: 01/03/20 08:09 Dose: 81 mg Documented by: Atorvastatin Calcium (Lipitor) 80 mg PO QHS [facility] Last Admin: 01/02/20 21:35 Dose: 80 mg Documented by: Clopidogrel Bisulfate (Plavix) 75 mg PO DAILY [facility] Last Admin: 01/03/20 10:48 Dose: 75 mg Documented by: Enoxaparin Sodium (Lovenox) 40 mg SC DAILY@0600 [facility] Finasteride (Proscar) 5 mg PO QHS [facility] Last Admin: 01/02/20 21:35 Dose: 5 mg Documented by: Cefazolin Sodium () 1 gm in 50 mls @ 100 mls/hr IV Q8 [facility] Last Infusion: 01/03/20 05:55 Dose: Infused Documented by: Sodium Chloride () 250 mls @ 15 mls/hr IV .[id number] PRN PRN Reason: Saline Flush Last Infusion: 01/03/20 05:55 Dose: 15 mls/hr Documented by: Sodium Chloride () 250 mls @ 15 mls/hr IV .[id number] PRN PRN Reason: Additional IVPB Infusion Nutritional Formula (Lactose Free) (Ensure Enlive) 120 ml PO 4X/DAY [facility] Last Admin: 01/03/20 10:52 Dose: 120 ml Documented by: Ondansetron HCl (Zofran Odt) 4 mg PO Q6H PRN PRN PRN Reason: NAUSEA Oxycodone HCl (Oxyir) 5 mg PO Q6H PRN PRN PRN Reason: Pain Score 6-10/10 Pramipexole Dihydrochloride (Mirapex) 0.125 mg PO TID [facility] Sodium Chloride () 10 - 40 ml IV UD PRN PRN Reason: SALINE FLUSH STROKE Vital Signs/Narrative: Vital Signs Pulse Resp Pulse Ox 01/03/20 10:58 60 20 H 99 Medical Necessity - Tobacco Use Smoking Status: Former smoker Tobacco Use: Non-smoker Assessment/Plan All Active Problems (Last Reviewed 01/02/20 @ 17:[address] Ernesto Blas, DO) Cellulitis (Acute) Cellulitis of right lower extremity (Acute) Right leg swelling (Acute) 1. Acute cellulitis RLE 2/2 infected chronic ulcer likely related to his underlying PAD - no sepsis, no fever/leukocytosis/tachycardia or tachypnea/lactic acidosis. elevated neuts and now left shift with inc immature grans on CBC. cellulitis demarcated. complicated by PAD. -consult wound care -f/u with Dr. Gleason -DVT ruled out -wound culture showing MSSA, ольга strep, gram positive rods. -continue cefazolin. -xray with soft tissue swelling. 2. Hx CAD - hx stents - pt of Dr. Ahumada. on asp/statin/plavix 3. Hx pAfib - rate controlled, not on rate limiting meds. not on OAC due to hx of hematuria. 4. PAD - arterial study [place] [address] Quigley demonstrated arterial calcification. left digital brachial index was severely diminished, right digital was normal. Suspect progression, f/u as outpatient for further workup. 5. BPH - finasteride 6. RLS - mirapex DVT ppx: lovenox This patient was seen by Etienne Roth PA-C under the supervision of Dr. Lee <Cathleen Lee - Last Filed: 01/03/20 13:29> Vitals/I&O's: Vital Signs Temp Pulse Resp BP Pulse Ox 98 F 65 20 H 111/47 L 97 01/03/20 12:15 01/03/20 12:15 01/03/20 12:15 01/03/20 12:15 01/03/20 12:15 Oxygen Delivery Method Room Air Weight: 199 lb 15.983 oz Body Mass Index (BMI) 29.5 Intake and Output for Last 24 Hours 01/01/20 01/02/20 01/03/20 23:59 23:59 23:59 Intake Total 350 / 350 558.25 / 558.25 Output Total 275 / 275 Balance 75 / 75 558.25 / 558.25 Microbiology Past 72 Hours 01/02/20 17:51 Wound - Right Foot Gram Stain - Final 01/02/20 17:51 Wound - Right Foot Wound Culture - Preliminary Staphylococcus species Beta streptococcus Gram positive emily Laboratory Results 01/02/20 13:00: D-Dimer Quant (PE/DVT) 1.32 H* 01/02/20 15:00: WBC 7.3, RBC 4.28 L, Hgb 12.9 L, Hct 40.0, MCV 93.5, MCH 30.1, MCHC 32.3, RDW Std Deviation 44.6 H, RDW Coeff of [place] 13.0, Plt Count 300, MPV 10.3, Immature Gran % (Auto) 0.800, Neut % (Auto) 72.1 H, Lymph % (Auto) 13.2 L, [place] % (Auto) 11.9 H, Eos % (Auto) 1.7, Baso % (Auto) 0.3, Absolute Neuts (auto) 5.2, Absolute Lymphs (auto) 0.96, Nucleated RBC % 0, Differential Comment SCANNED, Atypical Lymphocytes RARE 01/02/20 15:00: Lactic Acid 1.0 01/02/20 15:00: Sodium 137, Potassium 3.9, Chloride 100, Carbon Dioxide 33.0 H, Anion Gap 4 L, BUN 16, Creatinine 0.69 L, Estim Creat Clear Calc 59.90, Est GFR (MDRD) Af Amer 142, Est GFR (MDRD) Non-Af 117, BUN/Creatinine Ratio 23.2 H, Glucose 110 H, Calcium 8.8 01/02/20 17:51: S.aureus Protein A PCR POSITIVE H, MRSA (PCR) Negative 01/03/20 05:55: WBC 5.8, RBC 4.12 L, Hgb 12.3 L, Hct 38.9 L, MCV 94.4 H, MCH 29.9, MCHC 31.6 L, RDW Std Deviation 45.0 H, RDW Coeff of [place] 13.0, Plt Count 291, MPV 10.4, Immature Gran % (Auto) 1.600 H, Neut % (Auto) 53.8, Lymph % (Auto) 28.5, [place] % (Auto) 12.3 H, Eos % (Auto) 3.1, Baso % (Auto) 0.7, Absolute Neuts (auto) 3.1, Absolute Lymphs (auto) 1.65, Nucleated RBC % 0, Atypical Lymphocytes RARE 01/03/20 05:55: Sodium 136, Potassium 4.3, Chloride 101, Carbon Dioxide 30.0, Anion Gap 5, BUN 20 H, Creatinine 0.77, Estim Creat Clear Calc 59.90, Est GFR (MDRD) Af Amer 126, Est GFR (MDRD) Non-Af 104, BUN/Creatinine Ratio 26.1 H, Glucose 93, Calcium 8.2 L Current Medications Acetaminophen (Tylenol) 650 mg PO Q6H PRN PRN PRN Reason: Pain Score 1-10/10 Last Admin: 01/03/20 05:49 Dose: 650 mg Documented by: [facility]) [facility] Last Admin: 01/03/20 08:09 Dose: 81 mg Documented by: Atorvastatin Calcium (Lipitor) 80 mg PO QHS [facility] Last Admin: 01/02/20 21:35 Dose: 80 mg Documented by: Clopidogrel Bisulfate (Plavix) 75 mg PO DAILY [facility] Last Admin: 01/03/20 10:48 Dose: 75 mg Documented by: Enoxaparin Sodium (Lovenox) 40 mg SC DAILY@0600 [facility] Finasteride (Proscar) 5 mg PO QHS [facility] Last Admin: 01/02/20 21:35 Dose: 5 mg Documented by: Cefazolin Sodium () 1 gm in 50 mls @ 100 mls/hr IV Q8 [facility] Last Infusion: 01/03/20 05:55 Dose: Infused Documented by: Sodium Chloride () 250 mls @ 15 mls/hr IV .[id number] PRN PRN Reason: Saline Flush Last Infusion: 01/03/20 05:55 Dose: 15 mls/hr Documented by: Sodium Chloride () 250 mls @ 15 mls/hr IV .[id number] PRN PRN Reason: Additional IVPB Infusion Nutritional Formula (Lactose Free) (Ensure Enlive) 120 ml PO 4X/DAY [facility] Last Admin: 01/03/20 10:52 Dose: 120 ml Documented by: Ondansetron HCl (Zofran Odt) 4 mg PO Q6H PRN PRN PRN Reason: NAUSEA Oxycodone HCl (Oxyir) 5 mg PO Q6H PRN PRN PRN Reason: Pain Score 6-10/10 Pramipexole Dihydrochloride (Mirapex) 0.125 mg PO TID [facility] Sodium Chloride () 10 - 40 ml IV UD PRN PRN Reason: SALINE FLUSH STROKE Vital Signs/Narrative: Vital Signs Temp Pulse Resp BP Pulse Ox 01/03/20 12:15 98 F 65 20 H 111/47 L 97 01/03/20 10:58 60 20 H 99 Assessment/Plan Hospitalist note: I am seeing this patient in conjunction with Etienne Roth. I independently seen and examined the patient. Progress note above reviewed, laboratory data and imaging studies reviewed and I concur with above treatment plan. Apart from mild leg pain and cramps, patient had no other complaints. Denied fever chills. His vital signs are stable. - Physical Exam General: Alert, Oriented x3, Cooperative, No apparent distress. HEENT: Atraumatic, PERRLA, EOMI. Neck: Supple, No JVD, Negative Carotid Bruits, Trachea Midline, Thyroid Normal. Lungs: Diminished breath sounds bilateral, otherwise clear no rhonchi, No wheeze, No rales. Cardiovascular: Regular rate, Regular Rhythm, Normal S1, Normal S2, PMI Normal. Abdomen: Bowel Sounds Present, Soft, Non Tender, Non-Distended, No Hepato-splenomegaly. Extremities: No clubbing, No cyanosis, edema. Right leg: Erythema and swelling involving the lower one half of the right leg extending to the right foot. Nonhealing ulcer on the lateral aspect of the right foot measuring about 3 x 3 cm surrounded by erythema, no drainage. Skin: No rashes, chronic nonhealing right foot ulcer on the lateral aspect. Neurological: Cranial nerves are intact, neuro grossly intact Vital Signs are stable. Assessment and plan: #1 acute right lower leg/right foot cellulitis/nonhealing infected right foot ulcer: Patient is on IV cefazolin. Staph aureus PCR was positive, MRSA was negative. Wound culture revealed staph species, beta Streptococcus and gram-positive rods, final is pending. Patient is afebrile, vital signs are stable, no leukocytosis. Venous Doppler of the right leg showed no acute DVT. Routine blood work was unremarkable. Plan to continue same treatment, wound care nurse consult. #2 other chronic medical problems: Stable, continue current medications as above. This note was generated with [employer] dictation software. It may contain incorrect words, spelling, and punctuation that were not noted in checking the note before signing. Inpatient E&M: 59741 Subs Hosp L2
[2020-01-03] MEDS: Pramipexole Di-HCl 0.125 MG Tablet PO ×2 (14:46→21:38)
[2020-01-03] MEDS: Atorvastatin Calcium 80 MG Tablet PO (21:38)
[2020-01-03] MEDS: Finasteride 5 MG Tablet PO (21:40)
[2020-01-04 02:35] VITALS: BP 110/57; PULSE 60; RESP 20; TEMP 36.4; O2SAT 97
[2020-01-04] MEDS: Pramipexole Di-HCl 0.125 MG Tablet PO (05:37)
[2020-01-04] MEDS: Cefazolin 1 GM/50 ML BAG IV (05:38)
[2020-01-04] MEDS: Enoxaparin 40 MG/0.4 ML Syringe SC (05:38)
[2020-01-04 08:22] VITALS: BP 137/70; PULSE 69; RESP 16; TEMP 36.6; O2SAT 97
[2020-01-04] MEDS: Aspirin E.C. 81 MG Tablet PO (08:33)
--- NOTE | 2020-01-04 09:24 | NURSING ---
wound photo: right foot
--- NOTE | 2020-01-04 09:25 | NURSING ---
skin photo: right lower leg
--- NOTE | 2020-01-04 09:35 | DCINST_ITS ---
- Discharge Diagnoses Current Active Problems: Current Active and Chronic Problems (Last Reviewed 01/02/20 @ 17:[address] Ernesto Blas, DO) CAD (coronary artery disease) (Chronic) Cellulitis (Acute) Cellulitis of right lower extremity (Acute) Right leg swelling (Acute) You will use the following diet at home:: Cardiac Your food should be the consistency of: Regular Your liquids should be the consistency of: Regular/Thin Discharge Activity: Return to Normal Activity Allergies/Adverse Reactions: Allergies No Known Allergies Allergy (Verified 01/02/20 14:24) Medications to take at Discharge Aspirin [Adult Low Dose Aspirin EC] 81 mg PO DAILY 01/30/16 finasteride 5 mg tablet 5 mg PO QHS 07/18/17 acetaminophen 500 mg tablet 500 mg PO Q4H PRN 09/25/18 atorvastatin 80 mg tablet 80 mg PO QHS #90 tab 03/30/19 clopidogrel 75 mg tablet See Rx Instructions .ROUTE .COMPLEX #90 tablet 12/21/19 Cefdinir [Omnicef [equiv]] 300 mg PO Q12H #14 cap 01/04/20 The following prescriptions were given: Cefdinir [Omnicef [equiv]] 300 mg PO Q12H #14 cap Transmission Status: Pending to [id number] Primary Care Physician: Donte Wang MD [Primary Care Provider] - Please follow up with your Primary Care Physician in: 1-2 weeks Test Results: Test results from this visit will be discussed in further detail at your follow- up appointment, if applicable. Please Follow Up With: Ivonne Gleason DPM - podiatry When: keep current appointment Please Follow Up With: Mitchel Quigley MD - vascular surgery When: 3-4 weeks Proposed Discharge Date: 01/04/20
[2020-01-04] MEDS: Clopidogrel Bisulfate 75 MG Tablet PO (10:05)
--- NOTE | 2020-01-04 10:23 | PHA.DC.MC ---
Pharmacy Service has performed discharge medication reconciliation and counseling for this patient. The patient was counseled on the following discharge medications and changes in medications for homegoing were reviewed. 1. OMNICEF The Reason for Use, instructions for use, and potential side effects were reviewed for all new medications. The patient's questions regarding all of their medications were answered. The patient was able to verbally demonstrate an understanding of their discharge medications. Home Medications Aspirin [Adult Low Dose Aspirin EC] 81 mg PO DAILY 01/30/16 finasteride 5 mg tablet 5 mg PO QHS 07/18/17 acetaminophen 500 mg tablet 500 mg PO Q4H PRN 09/25/18 atorvastatin 80 mg tablet 80 mg PO QHS #90 tab 03/30/19 clopidogrel 75 mg tablet See Rx Instructions .ROUTE .COMPLEX #90 tablet 12/21/19 Cefdinir [Omnicef [equiv]] 300 mg PO Q12H #14 cap 01/04/20 The patient's discharge medication list was reviewed for discrepancies and discrepancies were resolved.
--- NOTE | 2020-01-04 10:40 | CASEMGMT ---
RN AMEYA Face to Face with patient for initial transition planning/care coordination assessment. RN CM introduced self and role at [facility]. Patient lying in bed, alert and oriented. Patient willing to participate in assessment and is able to answer all questions appropriately. Care providers, pharmacy, and demographics verified. Patient wishes to discharge home, denies need for home health at this time. Patient states he has no further needs or concerns at this time. CM to follow for discharge planning needs that may arise. PCP: Felipe Specialists: Brandyn, vapor coater, Pricila, urologist; Rosibel laundry washer Preferred Pharmacy: [facility] Insurance: [employer] Prescription Benefit: yes Living Will/HPOA: Yes, daughter Arti Mccabe LNOK: daughter Living Arrangements: Patient lives alone in single story home with 3 steps and chair lift to enter the home. Patient states he is independent at home. Transportation: daughter DME/HHC: Patient states he has shower chair, raised toilet, walker, cane, grab bars and wheelchair at home. Disposition Plan: Patient wishes to discharge home with family support and follow-up plans in place. Jacinda AGUILAR, RN, CM
--- NOTE | 2020-01-04 10:54 | DS.PCM_ITS ---
Discharge Date and Diagnosis - Problem List Patient Problems: Active and Suspected Problems (Last Reviewed 01/02/20 @ 17:[address] Ernesto Blas DO) Cellulitis (Acute) Cellulitis of right lower extremity (Acute) Right leg swelling (Acute) Date of Admission: 01/02/20 Date of Discharge: 01/04/20 - Primary Discharge Diagnosis Acute Problems: Active Problems (Last Reviewed 01/02/20 @ 17:[address] Ernesto Blas DO) Cellulitis RLE 2/2 MSSA DVT ruled out complicated by PAD - Secondary Discharge Diagnosis Chronic Problems: Chronic Problems (Last Reviewed 01/02/20 @ 17:[address] 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) Antithrombotics/antiplatelets Hyperlipidemia (Chronic) Hypertension (Chronic) S/P coronary artery stent placement (Chronic) PCI- XU- Prox RCA, Prox-Mid RCA and RPLB (Synergy Stents) 01/11/16 @ [facility] Old myocardial infarction (Chronic) Atherosclerotic heart disease of [place] coronary artery without angina pectoris (Chronic) PCI- XU- Prox RCA, Prox-Mid RCA and RPLB (Synergy Stents) 01/11/16 @ [facility] Paroxysmal atrial fibrillation (Chronic) Dilated aortic root (Chronic) Hospital Course and Treatment Imaging Results: RAD/Foot min 3 Views IMPRESSION: 1. Degenerative changes as described above. 2. Soft tissue swelling. 3. No demonstrated definite destructive bony process. 4. If osteomyelitis is suspected clinically, three-phase bone scan is recommended. Venous doppler Interpretation Summary There is no evidence of right lower extremity deep vein thrombosis. Right great saphenous vein appears patent and compressible segmentally. Normal flow patterns left common femoral vein Consultations 01/02/20 17:21 Consult: Onc/Wound/spark plug tester Routine Comment: Operations: None Procedures: None Summary of Care Provided: Hospital course: The patient is a 79 year old M with pmhx of chronic R foot nonhealing wound likely related to his underlying PAD, pt of Dr. Gleason and Dr. Quigley, who presented to the ER with increased swelling, redness, and pain in his RLE around his chronic wound and spreading proximally into the RLE. He noted that he had worsening of his chronic wound with blister formation that ruptured at home, and had seen his conditioning yard supervisor as an outpatient for in office debridement. He however had worsening of swelling at home so he came to the ER. He did not have fever or WBC elevation and did not appear septic. He was placed on IV cefazolin for suspected cellulitis, and started on therapeutic lovenox as D Dimer was elevated and there was suspicion for DVT. The next day Venous duplex ruled out DVT and lovenox was stopped. He did grow MSSA in his wound cx as well as strep group A and a gram positive emily, blood cultures neg. He was transitioned to 7 days of omnicef. He will need follow up with his PCP in 1-2 weeks, his conditioning yard supervisor (keep current appointment), and should see Dr. Quigley as he likely has worsening of his PAD and will need further workup. He was discharged home in stable condition. This patient was seen by Etienne Roth PA-C under the supervision of Doctor Chao. [] Patient Problems: Active and Suspected Problems (Last Reviewed 01/02/20 @ 17:[address] Ernesto Blas, DO) Cellulitis (Acute) Cellulitis of right lower extremity (Acute) Right leg swelling (Acute) - Physical Exam Vitals/I&O's: Vital Signs Temp Pulse Resp BP Pulse Ox 97.8 F 69 16 137/70 H 97 01/04/20 08:22 01/04/20 08:22 01/04/20 08:22 01/04/20 08:22 01/04/20 08:22 Oxygen Delivery Method Room Air Weight: 199 lb 15.983 oz Body Mass Index (BMI) 29.5 Intake and Output for Last 24 Hours 01/02/20 01/03/20 01/04/20 23:59 23:59 23:59 Intake Total 350 / 350 1479.50 / 1479.50 290 / 290 Output Total 275 / 275 750 / 750 350 / 350 Balance 75 / 75 729.50 / 729.50 -60 / -60 General: Alert, Oriented x3, Cooperative HEENT: Atraumatic, PERRLA, EOMI, Normocephalic Neck: Supple, No JVD, Negative Carotid Bruits Lungs: Clear to auscultation, Normal air movement Cardiovascular: Regular rate, No murmurs Abdomen: Bowel Sounds Present, Soft, Non Tender Extremities: Capillary Refill Less than 3 Seconds, Edema - edema improved. erythema and warmth improved. Skin: No rashes, No breakdown Musculoskeletal: No Tenderness to Palpation of Joints or Extremities Neurological: Cranial nerves II-XII grossly intact Psych/Mental Status: Normal Affect, Appropriate, Alert and oriented to time, place, person, mood and affect Microbiology Past 72 Hours 01/02/20 17:51 Wound - Right Foot Gram Stain - Final 01/02/20 17:51 Wound - Right Foot Wound Culture - Preliminary Staphylococcus aureus Streptococcus group A Gram positive emily 01/02/20 15:12 Blood Culture (Wb) - Anticubital Right Blood Culture - Preliminary No growth in 48 hours. 01/02/20 15:00 Blood Culture (Wb) - Anticubital Right Blood Culture - Preliminary No growth in 48 hours. Current Medications Acetaminophen (Tylenol) 650 mg PO Q6H PRN PRN PRN Reason: Pain Score 1-04/02 Last Admin: 01/03/20 21:38 Dose: 650 mg Documented by: [facility]) [facility] Last Admin: 01/04/20 08:33 Dose: 81 mg Documented by: Atorvastatin Calcium (Lipitor) 80 mg PO QHS [facility] Last Admin: 01/03/20 21:38 Dose: 80 mg Documented by: Clopidogrel Bisulfate (Plavix) 75 mg PO DAILY [facility] Last Admin: 01/04/20 10:05 Dose: 75 mg Documented by: Enoxaparin Sodium (Lovenox) 40 mg SC DAILY@0600 [facility] Last Admin: 01/04/20 05:38 Dose: 40 mg Documented by: Finasteride (Proscar) 5 mg PO QHS [facility] Last Admin: 01/03/20 21:40 Dose: 5 mg Documented by: Cefazolin Sodium () 1 gm in 50 mls @ 100 mls/hr IV Q8 [facility] Last Infusion: 01/04/20 06:10 Dose: Infused Documented by: Sodium Chloride () 250 mls @ 15 mls/hr IV .[id number] PRN PRN Reason: Saline Flush Last Infusion: 01/03/20 21:38 Dose: 0 mls/hr Documented by: Sodium Chloride () 250 mls @ 15 mls/hr IV .[id number] PRN PRN Reason: Additional IVPB Infusion Nutritional Formula (Lactose Free) (Ensure Enlive) 120 ml PO 4X/DAY [facility] Last Admin: 01/04/20 10:04 Dose: Not Given Documented by: Ondansetron HCl (Zofran Odt) 4 mg PO Q6H PRN PRN PRN Reason: NAUSEA Oxycodone HCl (Oxyir) 5 mg PO Q6H PRN PRN PRN Reason: Pain Score 6-10/10 Pramipexole Dihydrochloride (Mirapex) 0.125 mg PO TID [facility] Last Admin: 01/04/20 05:37 Dose: 0.125 mg Documented by: Sodium Chloride () 10 - 40 ml IV UD PRN PRN Reason: SALINE FLUSH Discharge Diet: Low fat/ Low Cholesterol, 2000 mg Sodium Diet Discharge Activity: Return to Normal Activity Home Medications: Medications to take at Discharge Aspirin [Adult Low Dose Aspirin EC] 81 mg PO DAILY 01/30/16 finasteride 5 mg tablet 5 mg PO QHS 07/18/17 acetaminophen 500 mg tablet 500 mg PO Q4H PRN 09/25/18 atorvastatin 80 mg tablet 80 mg PO QHS #90 tab 03/30/19 clopidogrel 75 mg tablet See Rx Instructions .ROUTE .COMPLEX #90 tablet 12/21/19 Cefdinir [Omnicef [equiv]] 300 mg PO Q12H #14 cap 01/04/20 Following Prescrptions Were Given to Patient: Cefdinir [Omnicef [equiv]] 300 mg PO Q12H #14 cap Transmission Status: Received by [id number] Primary Care Physician: Donte Wang MD [Primary Care Provider] - Please follow up with your Primary Care Physician in: 1-2 weeks Please Follow Up With: Ivonne Gleason DPM - podiatry When: keep current appointment Please Follow Up With: Mitchel Quigley MD - vascular surgery When: 3-4 weeks Disposition: Home Minutes spent on discharge:: 35 Patient Condition:: Stable Medical Necessity - Tobacco Use Smoking Status: Former smoker Tobacco Use: Non-smoker Meaningful Use Info Meaningful Use Diagnoses (Choose all that apply): None applicable
== END 2020-01-04 11:50 | disposition home or self-care (01) | DRG 603 ==
LOC: ED 15:38 → MS3 16:36
PROVIDERS: Physician Assistant; Admitting Provider Hospitalist; Emergency Provider Emergency Medicine; PCP Family Medicine; Visit Provider Internal Medicine
DX: L03.115 Cellulitis of right lower limb (principal); B95.61 Methicillin susceptible Staphylococcus aureus infection as the cause of diseases classified elsewhere; L97.519 Non-pressure chronic ulcer of other part of right foot with unspecified severity; I73.9 Peripheral vascular disease, unspecified; M79.89 Other specified soft tissue disorders; I48.0 Paroxysmal atrial fibrillation; I25.10 Atherosclerotic heart disease of native coronary artery without angina pectoris; I10 Essential (primary) hypertension; E78.2 Mixed hyperlipidemia; G25.81 Restless legs syndrome; N40.0 Benign prostatic hyperplasia without lower urinary tract symptoms; I25.2 Old myocardial infarction; Z79.02 Long term (current) use of antithrombotics/antiplatelets; Z79.82 Long term (current) use of aspirin; Z79.899 Other long term (current) drug therapy; Z95.5 Presence of coronary angioplasty implant and graft; Z87.891 Personal history of nicotine dependence
CPT/HCPCS: 36415; 73630; 80048; 83605; 85025; 85379; 87040; 87070; 87077; 87186; 87205; 87640; 93971; 97162; 97165; 97802; 99284; J7040; J7050; A4216

== ENCOUNTER → 2020-02-19 07:32 | Outpatient (CLI) | payer MEDICARE, BC, SELFPAY ==
[2020-02-04 12:04] VITALS: BMI 32.9
--- NOTE | 2020-02-19 07:32 | ECHOD_ITS ---
Reason For Study: Afib/Flutter Procedure This was a 2D Doppler, Color Flow transthoracic echocardiogram. The study was technically difficult. Exam performed in department. Left Ventricle Mildly dilated left ventricle. The estimated ejection fraction is 45-50 %. Stage 1 diastolic dysfunction. No regional wall motion abnormalities noted. Right Ventricle Mildly dilated right ventricle. Normal systolic function. Atria The left atrium is mildly enlarged. Normal right atrium. Normal atrial septum. Mitral Valve The mitral valve is structurally normal. No prolapse or stenosis seen. Trivial mitral valve insufficiency. Tricuspid Valve Normal tricuspid valve. Trivial tricuspid valve insufficiency. Right ventricular systolic pressure estimated to be 35 mmHg. Aortic Valve Normal aortic valve. Trisinus/trileaflet aortic valve. Pulmonic Valve Normal pulmonic valve. Trivial pulmonic valve insufficiency. Great Vessels Normal aortic root. Normal arch. Normal inferior vena cava. Inferior vena cava collapse with sniff. Pericardium/Pleural No pericardial effusion. MMode/2D Measurements & Calculations LVIDd: 5.0 cm IVSd: 0.92 cm Ao root diam: 4.0 cm LVIDs: 4.0 cm LVPWd: 1.2 cm LA dimension: 3.4 cm RVDd: 4.1 cm FS: 21.4 % LAV(MOD-bp): 79.6 ml LA A4 area: 23.6 cm2 RA A4 area: 15.8 cm2 LAV(MOD-bp) Indexed: 39.5 ml/m2 LAV(MOD-sp2): 86.2 ml LAV(MOD-sp4): 69.6 ml Time Measurements MV dec time: 0.32 sec Doppler Measurements & Calculations MV E max yusef: 77.8 cm/sec Lat Peak E' Yusef: 8.6 cm/sec Med Peak E' Yusef: 5.7 cm/sec MV A max yusef: 98.5 cm/sec E/E' lat: 9.1 E/E' med: 13.5 MV E/A: 0.79 MV V2 max: 110.1 cm/sec MV P1/2t max yusef: 96.6 cm/sec Ao V2 max: 135.9 cm/sec MV max P.8 mmHg MV P1/2t: 120.0 msec Ao max P.4 mmHg MV V2 mean: 53.8 cm/sec MV dec slope: 235.8 cm/sec2 Ao V2 mean: 85.9 cm/sec MV mean P.4 mmHg MVA(P1/2t): 1.8 cm2 Ao mean P.4 mmHg MV V2 VTI: 42.8 cm Ao V2 VTI: 30.1 cm LV V1 max: 101.2 cm/sec PA V2 max: 100.4 cm/sec TR max yusef: 274.0 cm/sec LV V1 max P.1 mmHg TR max P.0 mmHg LV V1 mean P.9 mmHg LV V1 mean: 63.2 cm/sec LV V1 VTI: 25.0 cm Interpretation Summary Mildly dilated left ventricle. The estimated ejection fraction is 45-50 %. Stage 1 diastolic dysfunction. Mildly dilated right ventricle. The left atrium is mildly enlarged. Trivial mitral valve insufficiency. Trivial tricuspid valve insufficiency. Right ventricular systolic pressure estimated to be 35 mmHg. Compared to echo report dated 04/25/2016, LV function has decreased from 55% to around 45 to 50%, RVSP is 35 mmHg. Ordering Physician: Raul Ahumada Referring Physician: Donte Wang Performed By: Melo Jorge RCS
[2020-02-19 09:17] LABS: Absolute Lymphocyte Count 1.05 X10^3/uL (0.83-4.51); Absolute Neutrophil Count 5.1 X10^3/uL (2.0-7.7); Basophil# 0.02 X10^3/uL; Basophil% 0.3 % (0-1); Eosinophil# 0.14 X10^3/uL; Hematocrit 36.4 % (40-54); Hemoglobin 12.2 g/dL (13.0-16.5); Lymphocyte # 1.05 X10^3/ul (4.0); Lymphocyte % 14.9 % (19-41); Mean Corp Hgb Conc 33.5 g/dL (32-36); Mean Corpuscular Hgb 30.8 pg (27.0-32.0); Mean Corpuscular Volume 91.9 fL (80-94); Mean Platelet Vol. 10.3 fl (6.2-12.0); Monocyte# 0.68 X10^3/uL; Monocyte% 9.6 % (0-10); NRBC Flagged by Analyzer 0 % (0-5); Neutrophil # 5.13 X10^3/uL (2.7-7.7); Neutrophil % 72.5 % (47-70); Platelet Count 325 K/mm3 (150-450); RBC Distribution Width CV 14.6 % (11.6-14.6); RBC Distribution Width SD 48.5 fl (35.1-43.9); Red Blood Count 3.96 M/mm3 (4.6-6.2); White Blood Count 7.1 K/mm3 (4.4-11.0)
[2020-02-19 09:52] LABS: Vitamin B12 455 pg/mL (211-911)
[2020-02-19 09:59] LABS: AST(SGOT) 24 U/L (15-37); Alanine Aminotransfer ALT/SGPT 30 U/L (16-61); Albumin, Serum 3.5 g/dL (3.2-5.0); Alkaline Phosphatase 125 U/L (45-117); Anion Gap 4 (5-15); BUN 17 mg/dL (7-18); BUN/Creat Ratio 21.8 RATIO (10-20); Bilirubin, Direct 0.33 mg/dL (0.00-0.30); Calcium,Total 8.7 mg/dL (8.5-10.1); Chloride 105 mmol/L (98-107); Cholesterol 85 mg/dL (200); Creatinine, Serum 0.78 mg/dL (0.70-1.30); EST Glomerular Filtration Rate 102 mL/min (>60); Est Glom Filt Rate - Afr Amer 124 mL/min (>60); Globulin 4.6 g/dL (2.2-4.2); Glucose 86 mg/dL (74-106); High Density Lipoprotein 55 mg/dL; Magnesium 2.5 mg/dL (1.6-2.6); Protein, Total 8.1 g/dL (6.4-8.2); Sodium Level 138 mmol/L (136-145); Thyroid Stim Hormone (TSH) 3.43 uIU/mL (0.358-3.74); Triglycerides 52 mg/dL; Very Low Density Lipoprotein 10 mg/dL (5-40)
== END ==
PROVIDERS: PCP Family Medicine; Referring Provider Internal Medicine Cardiovascular Disease; Visit Provider Internal Medicine Cardiovascular Disease
DX: I48.91 Unspecified atrial fibrillation (principal); I48.92 Unspecified atrial flutter; I25.10 Atherosclerotic heart disease of native coronary artery without angina pectoris; I10 Essential (primary) hypertension; G58.9 Mononeuropathy, unspecified; E78.5 Hyperlipidemia, unspecified
CPT/HCPCS: 80048; 80061; 80076; 82607; 83735; 84443; 85025; 93306

== ENCOUNTER → 2020-04-05 13:44 | Outpatient (CLI) | payer MEDICARE, BC, SELFPAY ==
[2020-02-04 12:04] VITALS: BMI 32.9
[2020-04-05 15:41] LABS: Absolute Neutrophil Count 3.5 X10^3/uL (2.0-7.7); Basophil# 0.03 X10^3/uL; Basophil% 0.6 % (0-1); Eosinophil# 0.08 X10^3/uL; Eosinophils% 1.6 % (0-5); Hematocrit 38.8 % (40-54); Hemoglobin 12.3 g/dL (13.0-16.5); Lymphocyte % 17.6 % (19-41); Mean Corp Hgb Conc 31.7 g/dL (32-36); Mean Corpuscular Hgb 29.9 pg (27.0-32.0); Mean Corpuscular Volume 94.4 fL (80-94); Mean Platelet Vol. 10.7 fl (6.2-12.0); Monocyte% 11.7 % (0-10); NRBC Flagged by Analyzer 0 % (0-5); Neutrophil # 3.47 X10^3/uL (2.7-7.7); Neutrophil % 67.9 % (47-70); Platelet Count 272 K/mm3 (150-450); RBC Distribution Width CV 13.9 % (11.6-14.6); RBC Distribution Width SD 47.8 fl (35.1-43.9); Red Blood Count 4.11 M/mm3 (4.6-6.2); White Blood Count 5.1 K/mm3 (4.4-11.0)
[2020-04-05 16:27] LABS: Ferritin 42 ng/mL (26-388); Iron 95 ug/dL (65-175)
== END ==
PROVIDERS: PCP Family Medicine; Visit Provider Family Medicine
DX: D64.9 Anemia, unspecified (principal)
CPT/HCPCS: 36415; 82728; 83540; 85025

== ENCOUNTER 2020-09-09 14:30 | Outpatient (RCR) | payer MEDICARE, BC, SELFPAY ==
[2020-02-04 12:04] VITALS: BMI 32.9
--- NOTE | 2020-08-30 16:43 | HP.PTEVAL ---
Patient's Visit Information SARA SAHA is a 80 year old M referred to Physical Therapy by Dr. Donte Wang MD with a diagnosis of Leg weakness adn fall risks. 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 3x/week for 4-6 weeks for. 1. Progress as safety alows to standing at bars LE wt shift and strength exa dn work toward HEP. 2. Bed adn sit trasnfers, posture and gait training with walker and balance training in standing. - Subjective Taisha dtr is with him today. I can't stand anymore because my balance is poor. Uses a walker at home adn trasnport chair to get around house. Uses WC out and about. Used to get around with cane but has fallen plenty of times. Scared to break something. Wh walker at home. Cane walking has been at least 6 months or more. Falls quite a but last time 3 months ago. Was walking and lost balance 3 months ago. No pain. Has neuropathy in legs but unusre of why. Stiffness in shoulders. No Diabetes. Was sent to [facility] for blood flow. No neurology visit. Sleep is not great, gets days and nights mixed up, will fall asleep at table but be up at night. Taking melatonin. Spends day cleaning up old paperwork as he lost a couple years ago. Watches TV. Crossword puzzles. Sedentary in chair often. Sleeps in recliner at night. No regular exercises, was suing recumbent bike but not lately in the last month. Basic ADLs: Lives alone in one story house with 4 steps to get in but has a chairlift. Dress self but dtrs cook food. Bathroom self and shower walk in. Has grab bars in the shower. Uses walker to get to shower and chair once in. - Objective Pt pushed back to eval room by dtr in wheelchair, willing to propel himself with LE. Sit to stadn slow and needs UE, unsteady but able. Stand with cane unsteady but mod I. stadn without AD SBA. Stand at walker Mod I and relatively easy. Walk without AD unable. Walk with cane slow and unsteady, avoids FW weight shift and scared. Wt through heels. Walk with wh walker 80 feet today, slow, small steps, no push off, fearful. Stand to sit mod I with arm of chair. Posture is hunched over with flexed hips and knees and looking at floor when standin at walker before VC. Sit to supine Min A, supine to sit mod A, pt sleeps in chair and has not laid down lately. Needs Assist to avoid tumbling off skinnny mat table. Very tired and fatigued after trasnferring on table. Ankles aROM is minimal but able in all directions, B ankles pitting edema up to calf. No stockings on today but has them at home. 4- strength in ankle sin available AROM. Poor motor control and tends to move hips to invert and tyrone vs ankles.Whitish legs and poor capillary refill B. Knee AROM WFL flexion and -4 ext B and 4+ strength B, HS and gastroc tight B. hip aROM WFLext to -5 from neutral extension, abductiona nd flexion WFL. strength abd and et 3 and flexion 3+. Sensation LE Limited to gross light touch in feet and ankles. Coordination reciprocal toe and heel tap is poor, heel to regalado is not easy. - Goals Goal 1:: Exit chair easily without hesitation in one try. Goal Time Frame: 4-6 Weeks Goal 2:: Walk with walker in upright position 200 feet easily and mod i Goal 3:: Pt I and safe in appropriate HEP standing at counter. Goal Time Frame: 4-6 Weeks Goal 4:: Pt feel mobility at home 50% better. Goal Time Frame: 4-6 Weeks - Rehabilitation Potential Physical Therapy Diagnosis: Weakness and sedentary lifestyle limiting mobility and causing safety risk. Rehabilitation Potential: Questionable - Anticipated Interventions Patient/Client Instruction: Educate patient on: Condition, Plan of Care For the Purpose of:: To improve muscle performance and motor function, To increase tolerance to activity/condition/position, To improve ability of physical actions for home/community/work/leisure, To improve gait and locomotor functions, To improve balance, To improve safety with gait Therapeutic Exercise to Include: Strength training, Balance training, Postural training, Flexibilty training, Gait and locomotor training, Neuromotor development, Passive ROM, Active ROM For the Purpose of:: To improve muscle performance and motor function, To increase tolerance to activity/condition/position, To improve ability of physical actions for home/community/work/leisure, To improve gait and locomotor functions, To improve safety Thank you for the opportunity to evaluate your patient. For Medicare and Medicare HMO plans, please review the plan of care and approve it. It will need to be FAXED BACK to us at [phone] for Medicare purposes. For Medicare only, by signing this I certify the plan of care. Please let me know if there are questions or concerns regarding this plan of care. Physician Signature: Date:
--- NOTE | 2020-11-09 13:22 | HP.PT.NRP ---
SARA SAHA was seen in my office for initial evaluation on 08/30/20. The following Plan of Care was established for this patient: Initial Frequency: 3x /Week Initial Duration: 4-6 Weeks Patient/Client Instruction: Educate patient on: Condition, Plan of Care For the Purpose of:: To improve muscle performance and motor function, To increase tolerance to activity/condition/position, To improve ability of physical actions for home/community/work/leisure, To improve gait and locomotor functions, To improve balance, To improve safety with gait Therapeutic Exercise to Include: Strength training, Balance training, Postural training, Flexibilty training, Gait and locomotor training, Neuromotor development, Passive ROM, Active ROM For the Purpose of:: To improve muscle performance and motor function, To increase tolerance to activity/condition/position, To improve ability of physical actions for home/community/work/leisure, To improve gait and locomotor functions, To improve safety This patient was last seen in our office 09/09/20. Pertinent comments regarding their Physical therapy will appear below: Pt seen 6 visits. After that point, he cancelled visits as he was admitted to hospital. he said he would call if he needed to return. It has been two months and I will discontinue due to nonattendance. At this point I will be discontinuing this patient from physical therapy. I would be happy to see this patient again in the future if found appropriate by the physician. Thank you! Ernesto Khan, DPT, OCS, CSCS
== END 2020-09-09 19:00 | disposition home or self-care (01) ==
LOC: PT 14:30
PROVIDERS: PCP Family Medicine; Referring Provider Family Medicine; Visit Provider Family Medicine
DX: M62.81 Muscle weakness (generalized) (principal); R27.8 Other lack of coordination; R29.6 Repeated falls
CPT/HCPCS: 97110; 97163

== ENCOUNTER 2020-09-11 21:14 | Inpatient (IN) | payer MEDICARE, BC, SELFPAY ==
[2020-02-04 12:04] VITALS: BMI 32.9
[2020-09-11 21:15] VITALS: BP 132/79; PULSE 63; RESP 18; TEMP 35.7; O2SAT 97; BMI 31.0
--- NOTE | 2020-09-11 21:33 | EKG12_ITS ---
Test Reason : WEAKNESS Blood Pressure : / mmHG Vent. Rate : 057 BPM Atrial Rate : 057 BPM P-R Int : 190 ms QRS Dur : 134 ms QT Int : 434 ms P-R-T Axes : 047 -34 092 degrees QTc Int : 422 ms Sinus bradycardia Left axis deviation Left ventricular hypertrophy with QRS widening and repolarization abnormality Abnormal ECG Confirmed by MELODY HARTMANN, LORELEI ([id number]), online editor ESTRELLA CARRILLO ([id number]) on 09/13/2020 9:03:58 AM Referred By: Confirmed By:LORELEI OLIVER MD
--- NOTE | 2020-09-11 21:33 | CT_ITS ---
HISTORY: slurred speech Technique:CT Head or Brain W/O Contrast Injection. Sagittal and coronal 2-D reformats Number of Images including paperwork:278 Comparison: None available. Findings: Periventricular deep and subcortical white matter disease is present. Paranasal sinuses are clear. The brain is atrophic. Calcific ASCVD involves intracranial arteries. No acute intracranial edema or hemorrhage. No acute abnormality of orbits. Middle ear cavities and mastoid air cells are well aerated. Skull is normal. CT/Brain/Head without Contrast IMPRESSION: No acute intracranial abnormality. Chronic changes as above. ASPECT 10. Individualized dose optimization techniques were used for this CT. at 0722 Reported and signed by: Wilton Najera MD Electronically Signed: Wilton Najera MD at 23:23 EDT Tel , Service support ,
[2020-09-11 21:45] LABS: Absolute Lymphocyte Count 0.55 X10^3/uL (0.83-4.51); Absolute Neutrophil Count 3.3 X10^3/uL (2.0-7.7); Basophil# 0.02 X10^3/uL; Basophil% 0.4 % (0-1); Eosinophil# 0.05 X10^3/uL; Eosinophils% 1.1 % (0-5); Hematocrit 35.5 % (40-54); Hemoglobin 11.8 g/dL (13.0-16.5); Lymphocyte # 0.55 X10^3/ul (4.0); Lymphocyte % 12.2 % (19-41); Mean Corp Hgb Conc 33.2 g/dL (32-36); Mean Corpuscular Hgb 30.6 pg (27.0-32.0); Mean Platelet Vol. 10.8 fl (6.2-12.0); Monocyte# 0.57 X10^3/uL; Monocyte% 12.6 % (0-10); NRBC Flagged by Analyzer 0 % (0-5); Neutrophil # 3.29 X10^3/uL (2.7-7.7); POSITIVE DIFFERENTIAL YES; Platelet Count 247 K/mm3 (150-450); RBC Distribution Width CV 14.9 % (11.6-14.6); RBC Distribution Width SD 50.4 fl (35.1-43.9); Red Blood Count 3.86 M/mm3 (4.6-6.2); White Blood Count 4.5 K/mm3 (4.4-11.0)
[2020-09-11 21:49] LABS: Differential Indicated SCAN CRITERIA MET
[2020-09-11 21:49] LABS: Mucous, Urine 0 SEEN /hpf (<or=2+); Red Blood Cells-Urine 0 SEEN /hpf (0-5); Squamous Epithelial Cells - UA 0 SEEN /hpf (0-5)
[2020-09-11 21:50] LABS: Color, Urine Straw (Yellow); Glucose, Dipstick Normal (Normal); Ketone-Dipstick Negative (Negative); Leukocyte Esterase-Dipstick Negative /ul (Negative); Nitrite-Dipstick Negative (Negative); Occult Blood-Urine 25 /ul (Negative); Protein-Dipstick Negative (Negative); Specific Gravity, Urine 1.015 (1.002-1.030); Urine Bilirubin Dipstick Negative (Negative); Urine Clarity Clear (Clear); Urine Urobilinogen Normal (Normal)
[2020-09-11 21:58] LABS: Bacteria RARE /hpf (None Seen); White Blood Cells 0-5 SEEN /hpf (0-5)
[2020-09-11 22:04] LABS: Anion Gap 6 (5-15); BUN 39 mg/dL (7-18); BUN/Creat Ratio 38.6 RATIO (10-20); Calcium,Total 9.1 mg/dL (8.5-10.1); Chloride 103 mmol/L (98-107); Creatinine, Serum 1.01 mg/dL (0.70-1.30); EST Glomerular Filtration Rate 76 mL/min (>60); Est Glom Filt Rate - Afr Amer 91 mL/min (>60); Estimated Creatinine Clearance 58.33 ml/min; Glucose 87 mg/dL (74-106); Potassium 4.9 mmol/L (3.5-5.1); Sodium Level 137 mmol/L (136-145)
[2020-09-11 22:11] LABS: Differential Comment SCANNED
--- NOTE | 2020-09-11 22:25 | RAD_ITS ---
HISTORY: sob EXAM: XR Chest 1 View: COMPARISON: Chest CTA from May 28, 2016. FINDINGS: # of images incl. paperwork: 1 Slight elevation of the right hemidiaphragm with volume loss within the right hemithorax is new. Trace calcific plaque within the aortic arch I believe has slightly progressed Some left ventricular dilatation is chronic No acute lung parenchymal disease is perceived. Anchoring devices within the left humeral head related to left rotator cuff repair. Elevation of the left humeral head with pseudoarticulation of the left humeral head with the undersurface of the acromion suggestive of recurrent full-thickness left rotator cuff tear Heart is not enlarged. Pulmonary vascularity is distinct. No effusions. RAD/Chest 1 View (Portable) IMPRESSION: No acute disease perceived. Slight elevation of the right hemidiaphragm which has progressed since the previous study. Anchoring devices in the left humeral head likely related to rotator cuff repair surgery, lower, elevation of the left humeral head within the left glenoid fossa with pseudoarticulation of the left humeral head with the undersurface of the left acromion suggestive of chronic recurrent full-thickness rotator cuff tear.. at 2322 Reported and signed by: Wilton Najera MD Electronically Signed: Wilton Najera MD at 23:21 EDT Tel , Service support ,
--- NOTE | 2020-09-11 22:52 | ED.VISSUMM ---
- ER Visit Summary Date of Service: 09/11/20 Chief Complaint: Generalized weakness History of Present Illness: The patient is a 80 M presenting with generalized weakness. Patient states that he has been worsening over the past several days. Typically he is able to use a walker at home but over the past day has been unable to get out of bed and and use the walker. He has been in physical therapy but is not improving. He lives alone. Family states he had slurred speech earlier this morning which has now resolved. He has received 2 Covid vaccines. Denies fever or cough. He has mild shortness of breath. Denies chest pain. He has diffuse myalgias. Denies vision or speech changes. Denies other complaints. Physical Examination: Vitals are stable. Patient is afebrile. Alert no acute distress. HEENT exam is unremarkable. Neck is supple. Lungs are clear and equal bilaterally. Heart is regular rate and rhythm. Abdomen is soft nontender nondistended. Extremities are unremarkable. Skin is warm and dry. No focal neurologic deficit. NIH 0 Remainder of exam is unremarkable. Emergency Department Course and Treatment: EKG is sinus bradycardia rate of 57 with no acute ischemic changes. CBC normal except hemoglobin 11.8. Chemistries normal except for BUN 39. Urinalysis unremarkable. Troponin is negative. Chest x-ray read by myself and radiology shows no acute disease perceived. Slight elevation of the right hemidiaphragm which has progressed since the previous study. Anchoring devices in the left humeral head likely related to rotator cuff repair surgery, lower, elevation of the left humeral head within the left glenoid fossa with pseudoarticulation of the left humeral head with the undersurface of the left acromion suggestive of chronic recurrent full-thickness rotator cuff tear. CT head shows no acute intracranial abnormality. Patient lives alone and is unable to ambulate and care for himself. Will discuss with hospitalist for observation. Disposition: Observation Impression: Generalized weakness, debility This note was generated with [employer] dictation software. It may contain incorrect words, spelling, and punctuation that were not noted in review of the chart prior to signing ED Disposition - Plan for ED Patient: Referrals: Donte Wang MD [Primary Care Provider] -
[2020-09-11 23:17] VITALS: BP 136/94; PULSE 64; RESP 21
--- NOTE | 2020-09-11 23:49 | PCM.HP.STD ---
Problem List (1) Stroke-like symptoms Status: Acute (2) CAD (coronary artery disease) Status: Chronic (3) PAD (peripheral artery disease) Status: Chronic (4) FPC use of drug Status: Chronic Comment: Antithrombotics/antiplatelets (5) Hyperlipidemia Status: Chronic Qualifiers: Hyperlipidemia type: mixed hyperlipidemia Qualified Code(s): E78.2 - Mixed hyperlipidemia (6) Hypertension Status: Chronic Qualifiers: Hypertension type: essential hypertension Qualified Code(s): I10 - Essential (primary) hypertension (7) S/P coronary artery stent placement Status: Chronic Comment: PCI- XU- Prox RCA, Prox-Mid RCA and RPLB (Synergy Stents) 01/11/16 @ [facility] (8) 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 transplanted heart: [place] heart Qualified Code(s): I25.10 - Atherosclerotic heart disease of [place] coronary artery without angina pectoris Comment: PCI- XU- Prox RCA, Prox-Mid RCA and RPLB (Synergy Stents) 01/11/16 @ [facility] (10) Paroxysmal atrial fibrillation Status: Chronic (11) Dilated aortic root Status: Chronic (12) Leg swelling Status: Chronic History of Present Illness Date of Admission: 09/12/20 Chief Complaint: UNABLE TO AMBULATE The patient is a 80 year old M with a significant history of CAD status post stent; hypertension; hyperlipidemia; and paroxysmal A. fib who presents to the emergency department with unable to ambulate. His symptoms has been going on for 3 to 4 days. Patient has been going to outpatient physical therapy for difficulty with ambulation. Further on the same day of presentation patient had generalized body tremors. Further, he had lightheadedness and vertigo. He has had vertigo on and off but on the day of presentation his vertigo was a persistent and more extreme. He reports vertigo with every activity. Patient was scared to get up from the bed because of vertigo. Patient's daughter reports that PCP thinks patient may be having multiple sclerosis. Past Medical History Past Medical History (Chronic Problems): Chronic Problems (Last Reviewed 09/12/20 @ 00:[address] Saqib Natarajan MD) CAD (coronary artery disease) (Chronic) Leg swelling (Chronic) PAD (peripheral artery disease) (Chronic) intermission coordinator use of drug (Chronic) Antithrombotics/antiplatelets Hyperlipidemia (Chronic) Hypertension (Chronic) S/P coronary artery stent placement (Chronic) PCI- XU- Prox RCA, Prox-Mid RCA and RPLB (Synergy Stents) 01/11/16 @ [facility] Old myocardial infarction (Chronic) Atherosclerotic heart disease of [place] coronary artery without angina pectoris (Chronic) PCI- XU- Prox RCA, Prox-Mid RCA and RPLB (Synergy Stents) 01/11/16 @ [facility] Paroxysmal atrial fibrillation (Chronic) Dilated aortic root (Chronic) Medical History: Medical History (Last Reviewed 09/12/20 @ 00:[address] Saqib Natarajan MD) PAD (peripheral artery disease) (Chronic) I73.9 intermission coordinator use of drug (Chronic) Z79.899 Antithrombotics/antiplatelets Hyperlipidemia (Chronic) E78.5 Hypertension (Chronic) I10 Old myocardial infarction (Chronic) I25.2 Atherosclerotic heart disease of [place] coronary artery without angina pectoris (Chronic) I25.10 PCI- XU- Prox RCA, Prox-Mid RCA and RPLB (Synergy Stents) 01/11/16 @ [facility] Paroxysmal atrial fibrillation (Chronic) I48.0 Dilated aortic root (Chronic) I77.810 Allergies No Known Allergies Allergy (Verified 01/02/20 14:24) Home Medications: Ambulatory Orders Medication Instructions Recorded Aspirin [Adult Low Dose Aspirin EC] 81 mg PO DAILY 01/30/16 finasteride 5 mg tablet 5 mg PO QODAY 07/18/17 acetaminophen 500 mg tablet 500 mg PO Q4H PRN 09/25/18 clopidogrel 75 mg tablet See Rx Instructions .ROUTE 12/21/19 .COMPLEX #90 tab atorvastatin 80 mg tablet 80 mg PO QHS #90 tab 04/05/20 Melatonin/Pyridoxine HCl (B6) 3 mg PO QHS 09/11/20 [Melatonin 3 mg Tablet] Pramipexole Di-HCl [Mirapex] 0.125 mg PO DAILY 09/11/20 Surgical History: Surgical History (Last Reviewed 09/12/20 @ 00:[address] Saqib Natarajan MD) S/P coronary artery stent placement (Chronic) Z95.5 PCI- XU- Prox RCA, Prox-Mid RCA and RPLB (Synergy Stents) 01/11/16 @ [facility] History of knee surgery Z98.890 bilat History of pilonidal cyst Z87.2 S/P rotator cuff repair Z98.890 bilat Surgical History: rotator cuff repair, - Psychiatric History: No pertinent psych hx Smoking Status: Former smoker - *Family History Paternal Family History: Family History (Last Reviewed 09/12/20 @ 00:[address] Saqib Natarajan MD) Mother CHF (congestive heart failure) History Items: - - emphysema Review of Systems Constitutional: Reports: Weakness. Denies: Chills, Fever, Weight Change HEENT: Denies: Head Aches, Sinus Congestion, Sinus Drainage Cardiovascular: Reports: Light Headedness. Denies: Chest Pain, Palpitations Respiratory: Reports: Shortness of Breath - mild. Denies: Cough, Sputum production Gastrointestinal: Denies: Abdominal Pain, Nausea, Vomiting Genitourinary: Denies: Dysuria Musculoskeletal: Denies: Joint Pain, Joint Tenderness Skin: Denies: Rash, Wounds Neurological: Denies: Numbness, Tingling, Focal weakness Psychiatric: Denies: Anxiety, Depression, Homicidal Ideations, Suicidal Ideations Hematologic/ Lymphatic: Denies: Easy Bruising, Easy Bleeding VTE Information - Inpt Only VTE Present on Admission: No VTE Mechan Device Prophylaxis: None VTE Pharm Prophylaxis ordered?: Yes Patient Problems: Active and Suspected Problems (Last Reviewed 09/12/20 @ 00:[address] Saqib Natarajan MD) Stroke-like symptoms (Acute) - Physical Exam Vitals/I&O's: Vital Signs Temp Pulse Resp BP Pulse Ox 96.3 F L 64 21 H 136/94 H 97 09/11/20 21:15 09/11/20 23:17 09/11/20 23:17 09/11/20 23:17 09/11/20 21:15 Oxygen Delivery Method Room Air Weight: 95.254 kg Body Mass Index (BMI) 31.0 Intake and Output for Last 24 Hours 09/09/20 09/10/20 09/11/20 23:59 23:59 23:59 Intake Total 500 / 500 Balance 500 / 500 General: Alert, Oriented x3, Cooperative HEENT: Atraumatic, PERRLA, EOMI, Normocephalic Neck: Supple, No JVD, Negative Carotid Bruits Lungs: Clear to auscultation, Normal air movement Cardiovascular: Normal S1, Normal S2, No murmurs, Bradycardic, Irregular Rate Abdomen: Bowel Sounds Present, Soft, Non Tender Extremities: Capillary Refill Less than 3 Seconds, Edema - Bilateral legs Skin: No rashes, No breakdown Musculoskeletal: No Tenderness to Palpation of Joints or Extremities Neurological: Cranial nerves II-XII grossly intact Psych/Mental Status: Normal Affect, Appropriate Laboratory Results 09/11/20 21:37: WBC 4.5, RBC 3.86 L, Hgb 11.8 L, Hct 35.5 L, MCV 92.0, MCH 30.6, MCHC 33.2, RDW Std Deviation 50.4 H, RDW Coeff of [place] 14.9 H, Plt Count 247, MPV 10.8, Immature Gran % (Auto) 0.700, Neut % (Auto) 73.0 H, Lymph % (Auto) 12.2 L, [place] % (Auto) 12.6 H, Eos % (Auto) 1.1, Baso % (Auto) 0.4, Absolute Neuts (auto) 3.3, Absolute Lymphs (auto) 0.55 L, Nucleated RBC % 0, Differential Comment SCANNED 09/11/20 21:37: Sodium 137, Potassium 4.9, Chloride 103, Carbon Dioxide 28.0, Anion Gap 6, BUN 39 H, Creatinine 1.01, Estim Creat Clear Calc 58.33, Est GFR (MDRD) Af Amer 91, Est GFR (MDRD) Non-Af 76, BUN/Creatinine Ratio 38.6 H, Glucose 87, Calcium 9.1, Troponin I < 0.015 09/11/20 21:45: Urine Color Straw, Urine Clarity Clear, Urine pH 6.0, Ur Specific [place] 1.015, Urine Protein Negative, Urine Glucose (UA) Normal, Urine Ketones Negative, Urine Occult Blood 25 H, Urine Nitrite Negative, Urine Bilirubin Negative, Urine Urobilinogen Normal, Ur Leukocyte Esterase Negative, Urine RBC 0 SEEN, Urine WBC 0-5 SEEN, Ur Squamous Epith Cells 0 SEEN, Urine Bacteria RARE, Urine Mucus 0 SEEN Assessment/Plan All Active Problems (Last Reviewed 09/12/20 @ 00:[address] Saqib Natarajan MD) Stroke-like symptoms (Acute) The patient is a 80 year old M with a significant history of CAD status post stent; hypertension; hyperlipidemia; proximal A. fib who presents to the emergency department with unable to ambulate; tremors; slurry speech and vertigo. Strokelike symptoms Differentials includes a movement disorder Serial NINDS NIH Scale ordered CT of the head did not show acute bleed -Check Hba1c, Lipid level ordered Physical therapy, and occupational therapy to work with patient. N.p.o. until bedside swallow eval. Daily aspirin and Plavix continued. High intensity statin continued Lipid profile and A1c ordered. Permissive hypertension. Control blood pressure with labetalol for systolic blood pressure of more than 220 or diastolic blood pressure of more than 120. MRI/MRAM of head; brain; and neck. Echocardiogram ordered. Generalized weakness/debility PT and OT work with patient as above. Review of records show that patient had physical therapy evaluation on 08/30/2020. Bilateral leg edema Kyle wrap to bilateral lower extremities. CAD status post stent Aspirin; Plavix and high intensity statin continued. Paroxysmal A. fib Currently in A. fib with slow ventricular response. Aspirin and Plavix continued. DVT prophylaxis Subcutaneous Lovenox ordered. OBSV E&M: 09241 Initial observation care L3
[2020-09-12] VITALS (18 sets, daily range): BP systolic 90–135; BP diastolic 47–69; PULSE 48–79; RESP 15–18; TEMP 36.1–36.7; O2SAT 93–97; BMI 33.3
--- NOTE | 2020-09-12 01:13 | MRI_ITS ---
STUDY: MRI BRAIN WITHOUT CONTRAST REASON FOR EXAM: Male, 80 years old. cva TECHNIQUE: Standardized multiplanar fat and water weighted pulse sequences were obtained. COMPARISON: CT head without contrast 09/11/2020. FINDINGS: No diffusion restriction to suspect acute or subacute ischemic infarct. Normal size of the ventricles and extra-axial spaces for the patient''s age. Left posterior periventricular white matter T2 FLAIR hyperintensity focus is most likely chronic ischemic change. Normal bilateral basal ganglia. Normal thalami. There is no extra-axial fluid accumulation. Normal flow voids within the major intracranial circulation suggesting patency by spin echo criteria. Normal sella turcica, pituitary gland, infundibular stalk, optic chiasm and hypothalamus. Normal tectal plate and pineal gland. Normal midbrain, ely and medulla. Normal cerebellum. Normal basal cisterns. Normal bilateral temporal bones. Normal bilateral internal auditory canals. No demonstrated orbital abnormality, within the constraints of a routine brain study. Normal visualized paranasal sinuses. Normal calvarium and skull base. Normal visualized soft tissue structures. 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 MRI/Brain without Contrast IMPRESSION: 1. 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 Considering his age, this is presumably on a degenerative basis. 2. MRI cervical spine will be very helpful for further evaluation. 3. No MRI evidence of acute or subacute ischemic infarct or acute intracranial abnormality. 4. Chronic white matter ischemic changes in the left posterior periventricular white matter. Electronically Signed: Kevin Argueta MD at 13:56 EDT , Service support ,
--- NOTE | 2020-09-12 01:13 | ECHOCS_ITS ---
Reason For Study: TIA/CVA Procedure This was a 2D Doppler, Color Flow transthoracic echocardiogram. Technically difficult study due to patients condition. Contrast injection performed. Exam performed portable in patient room. Left Ventricle Normal LV size. Severe concentric left ventricular hypertrophy. Left ventricular systolic function is normal. The estimated ejection fraction is 65 %. Stage 1 diastolic dysfunction. No regional wall motion abnormalities noted. Right Ventricle Normal RV size. Normal systolic function. Atria Normal left atrium. Normal right atrium. Mitral Valve Mitral valve not well visualized. Tricuspid Valve The tricuspid valve is not well visualized. Mild (1+) tricuspid valve insufficiency. Pulmonary artery systolic pressure is 30 mmHg. Aortic Valve Trisinus/trileaflet aortic valve. Pulmonic Valve The pulmonic valve is not well visualized. Great Vessels Mild to moderately dilated aortic root. The pulmonary artery is normal size. Normal inferior vena cava. Pericardium/Pleural No pericardial effusion. Medication Diluted definity 3ml given slow IV push to enhance endocardial definition. Performed a rapid injection of agitated mix of 9 cc saline and 1cc air to assess for atrial septal defect. MMode/2D Measurements & Calculations LVIDd: 5.3 cm IVSd: 1.8 cm Ao root diam: 4.1 cm LVIDs: 3.9 cm LVPWd: 1.6 cm LA dimension: 4.1 cm FS: 26.7 % LAV(MOD-sp2): 101.8 ml Time Measurements MV dec time: 0.26 sec Doppler Measurements & Calculations MV E max yusef: 80.1 cm/sec Lat Peak E' Yusef: 8.5 cm/sec Med Peak E' Yusef: 6.5 cm/sec MV A max yusef: 108.5 cm/sec E/E' lat: 9.4 E/E' med: 12.3 MV E/A: 0.74 MV V2 max: 105.0 cm/sec MV P1/2t max yusef: 103.0 cm/sec Ao V2 max: 151.2 cm/sec MV max P.4 mmHg MV P1/2t: 100.4 msec Ao max P.1 mmHg MV V2 mean: 67.1 cm/sec MV mean P.0 mmHg MV dec slope: 300.5 cm/sec2 MV V2 VTI: 33.1 cm MVA(P1/2t): 2.2 cm2 LV V1 max: 121.0 cm/sec PA V2 max: 119.4 cm/sec TR max yusef: 256.6 cm/sec LV V1 max P.9 mmHg TR max P.3 mmHg Interpretation Summary Normal LV size. Severe concentric left ventricular hypertrophy. Left ventricular systolic function is normal. The estimated ejection fraction is 65 %. Stage 1 diastolic dysfunction. Mild to moderately dilated aortic root. Contrast injection was performed. Ordering Physician: Saqib Natarajan Referring Physician: Donte Wang Performed By: Melo Jorge RCS
[2020-09-12] MEDS: Acetaminophen 500 MG Tablet PO ×3 (01:40→19:38)
--- NOTE | 2020-09-12 02:18 | NURSING ---
ADMISSION COMPLETE. NIH=1 FOR LEFT LOWER EXTREMITY DECREASED SENSATION AND C/O N/T. PT IS ALERT X 3. C/O SEVERE LEFT FOOT CRAMPING AND TINGLING. TYLENOL GIVEN FOR PERSISTENT RESTLESSNESS & PAIN OF LEFT FOOT. PT REPORTS THIS IS NOT NEW AND IS USUALLY WORSE @ NIGHT. NSR ON MONITOR, VSS. PASSED DYSPHAGIA SCREEN. WILL BE NPO FOR AM LAB WORK. ORIENTED TO ROOM. PT DENIES QUESTIONS AT THIS TIME.
[2020-09-12 05:50] LABS: Cholesterol 102 mg/dL (200); High Density Lipoprotein 75 mg/dL; Triglycerides 37 mg/dL; Very Low Density Lipoprotein 7 mg/dL (5-40)
[2020-09-12] MEDS: Nystatin Powder 15gm Bottle 1 APPLIC TOPICAL ×2 (06:17→19:39)
[2020-09-12] MEDS: Aspirin E.C. 81 MG Tablet PO (07:58)
[2020-09-12] MEDS: Enoxaparin 40 MG/0.4 ML Syringe SC (07:58)
--- NOTE | 2020-09-12 09:12 | TELEMED_ITS ---
[facility] Telemed has confirmed receipt of a request for visit. This document confirms receipt of the order initiating the consult. To find the results of the consultation, please view the patient's reports for the scanned Telemed Consult.
--- NOTE | 2020-09-12 11:57 | NURSING ---
report given to Iva DRUMMOND she is assuming care of patient at 1200
[2020-09-12] MEDS: LORazepam 2 MG/ML Syringe 1 MG IV (12:13)
--- NOTE | 2020-09-12 12:49 | CT_ITS ---
INDICATION: vertigo EXAMINATION: CT BRAIN WITH CONTRAST TECHNIQUE: Noncontrast axial images were obtained of the brain. Subsequently, routine carotid CT angiogram protocol was performed without and with IV contrast. In addition, images were obtained of the [place]. Nascet criteria using the distal ICAs for comparison were used for evaluation of stenoses. 3D reconstructions were reviewed. A radiation dose optimization technique was used for this scan. IV Contrast dosage and agent: 100 mL ISOVUE 370. COMPARISON: None. FINDINGS: --CT BRAIN: BRAIN PARENCHYMA: No intra- or extra-axial hemorrhage. No evidence of acute infarct. No intracranial mass or mass effect. There is preservation of the [place]/white matter interface. Posterior fossa structures are unremarkable. CSF SPACES: Appropriate for age. No hydrocephalus. Basal cisterns are patent. CALVARIUM, SKULL BASE, PARANASAL SINUSES AND MASTOID AIR CELLS: Clear. No discrete lytic or blastic abnormalities. ASPECTS Score for Acute Strokes: 10 --CTA NECK: AORTIC ARCH AND BRANCHES: Normal anatomy, patent. RIGHT CCA: No occlusion, significant stenosis or dissection. RIGHT ICA: No occlusion, significant stenosis or dissection. LEFT CCA: No occlusion, significant stenosis or dissection. LEFT ICA: No occlusion, significant stenosis or dissection. RIGHT VERTEBRAL ARTERY: No occlusion, significant stenosis or dissection. LEFT VERTEBRAL ARTERY: No occlusion, significant stenosis or dissection. NECK SOFT TISSUES: Unremarkable. --CTA HEAD: --Anterior circulation: ICAs: No significant stenosis at the intracranial/visualized segments. ACAs: No significant stenosis at the visualized segments. ACOM: Present. MCAs: No significant stenosis at the visualized segments. --Posterior circulation: PCOMs: Not visible. caramel maker: No significant stenosis at the visualized segments. BASILAR ARTERY: No significant stenosis. VERTEBRAL ARTERIES: No significant stenosis at the intradural/visualized segments. No evidence of intracranial aneurysm or vascular malformation. CT/CTA Head AND Neck W/ Contrast IMPRESSION: 1. Negative CT Brain, CTA Carotid, and CTA Brain. 2. 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 MRI cervical spine will be very helpful for further evaluation. Electronically Signed: Kevin Argueta MD at 14:01 EDT , Service support ,
--- NOTE | 2020-09-12 14:08 | CASEMGMT ---
SW met with patient and his daughter. Introduced self and role at [facility]. SW explained that therapy is recommending patient go somewhere for rehab. SW explained how it would work going to a intermediate facility. Patient has had both of his COVID vaccines over 4 weeks ago so he should not have to quarantine at the SNF. SW explained there is limited visitation. Patient's eyes were closed during conversation so SW is not sure if he was paying attention. Patient's daughter whispered that she is not sure patient is going to agree to go anywhere. She asked if he came home with her could therapy see him at her house. SW told her that would be an option if he is doing better and explained what insurance covers. SW told her SW will follow and assist with d/c planning. SW provided patient and his daughter with a list of SNF providers including quality and resource use data and consistent with the patient?s preferred geographic region, medical needs, and insurance network. Plan: undetermined at this time Aleksandra BLEDSOE
--- NOTE | 2020-09-12 14:40 | PCM.PN.HOSP ---
<Lj Kam - Last Filed: 09/12/20 14:40> Patient Problems: Active and Suspected Problems (Last Reviewed 09/12/20 @ 00:[address] Saqib Natarajan MD) Stroke-like symptoms (Acute) Subjective: Patient is a pleasant 80-year-old male who is resting comfortably in bed, alert and oriented x3. Patient has not attempted to ambulate today so cannot comment about difficulty, denies lightheadedness and dizziness on examination. Patient admits that his lightheadedness and dizziness is intermittent. Denies chest pain, palpitations, shortness of breath, fever, N/V/D. No focal neural deficits observed. Vitals/I&O's: Vital Signs Temp Pulse Resp BP Pulse Ox 97.5 F L 63 16 103/65 96 09/12/20 14:00 09/12/20 14:00 09/12/20 14:00 09/12/20 14:00 09/12/20 14:00 Oxygen Delivery Method Room Air Weight: 225 lb 8.526 oz Body Mass Index (BMI) 33.3 Intake and Output for Last 24 Hours 09/10/20 09/11/20 09/12/20 23:59 23:59 23:59 Intake Total 500 / 500 580 / 580 Output Total 1300 / 1300 Balance 500 / 500 -720 / -720 General: Alert, Oriented x3, Cooperative HEENT: Atraumatic, PERRLA, EOMI, Normocephalic Neck: Supple, No JVD, Negative Carotid Bruits Lungs: Clear to auscultation, Normal air movement Cardiovascular: Regular rate, No murmurs Abdomen: Bowel Sounds Present, Soft, Non Tender Extremities: No edema, Capillary Refill Less than 3 Seconds Skin: No rashes, No breakdown Musculoskeletal: No Tenderness to Palpation of Joints or Extremities Neurological: Cranial nerves II-XII grossly intact Psych/Mental Status: Normal Affect, Appropriate Laboratory Results 09/11/20 21:37: WBC 4.5, RBC 3.86 L, Hgb 11.8 L, Hct 35.5 L, MCV 92.0, MCH 30.6, MCHC 33.2, RDW Std Deviation 50.4 H, RDW Coeff of [place] 14.9 H, Plt Count 247, MPV 10.8, Immature Gran % (Auto) 0.700, Neut % (Auto) 73.0 H, Lymph % (Auto) 12.2 L, [place] % (Auto) 12.6 H, Eos % (Auto) 1.1, Baso % (Auto) 0.4, Absolute Neuts (auto) 3.3, Absolute Lymphs (auto) 0.55 L, Nucleated RBC % 0, Differential Comment SCANNED 09/11/20 21:37: Sodium 137, Potassium 4.9, Chloride 103, Carbon Dioxide 28.0, Anion Gap 6, BUN 39 H, Creatinine 1.01, Estim Creat Clear Calc 58.33, Est GFR (MDRD) Af Amer 91, Est GFR (MDRD) Non-Af 76, BUN/Creatinine Ratio 38.6 H, Glucose 87, Calcium 9.1, Troponin I < 0.015 09/11/20 21:45: Urine Color Straw, Urine Clarity Clear, Urine pH 6.0, Ur Specific [place] 1.015, Urine Protein Negative, Urine Glucose (UA) Normal, Urine Ketones Negative, Urine Occult Blood 25 H, Urine Nitrite Negative, Urine Bilirubin Negative, Urine Urobilinogen Normal, Ur Leukocyte Esterase Negative, Urine RBC 0 SEEN, Urine WBC 0-5 SEEN, Ur Squamous Epith Cells 0 SEEN, Urine Bacteria RARE, Urine Mucus 0 SEEN 09/12/20 05:12: Triglycerides 37, Cholesterol 102, LDL Cholesterol 20, VLDL Cholesterol 7, HDL Cholesterol 75 09/12/20 05:12: Hemoglobin A1c 5.0 Current Medications Acetaminophen (Acetaminophen 500 Mg Tablet) 500 mg PO Q4H PRN PRN PRN Reason: Pain 1-10/Fever Last Admin: 09/12/20 06:17 Dose: 500 mg Documented by: Aspirin (Aspirin E.C. 81 Mg Tablet) [facility] Last Admin: 09/12/20 07:58 Dose: 81 mg Documented by: Atorvastatin Calcium (Atorvastatin Calcium 80 Mg Tablet) 80 mg PO QHS [facility] Clopidogrel Bisulfate (Clopidogrel Bisulfate 75 Mg Tablet) 75 mg PO DAILY [facility] Enoxaparin Sodium (Enoxaparin 40 Mg/0.4 Ml Syringe) 40 mg SC DAILY [facility] Last Admin: 09/12/20 07:58 Dose: 40 mg Documented by: Finasteride (Finasteride 5 Mg Tablet) 5 mg PO QODAY [facility] Hydralazine HCl (Hydralazine 20 Mg/Ml Vial) 5 mg IV Q30M PRN PRN Reason: to maintain BP goals Labetalol HCl (Labetalol (Prefilled) 20 Mg/4 Ml) 10 - 20 mg IV Q10M PRN PRN PRN Reason: to Maintain BP Goals Melatonin (Melatonin 3 Mg Tablet) 3 mg PO QHS [facility] Nystatin (Nystatin Powder 15gm Bottle) 1 applic TOPICAL TID [facility]; Protocol Last Admin: 09/12/20 06:17 Dose: 1 dose Documented by: Ondansetron HCl (Ondansetron 4 Mg/2 Ml Vial) 4 mg IV Q8H PRN PRN PRN Reason: NAUSEA/VOMITING Pramipexole Dihydrochloride (Pramipexole Di-Hcl 0.125 Mg Tablet) 0.125 mg PO DAILY@2200 [facility] Sodium Chloride (0.9% Saline Lock 10 Ml Syringe) 10 - 40 ml IV UD PRN PRN Reason: SALINE FLUSH STROKE Vital Signs/Narrative: Vital Signs Temp Pulse Resp BP Pulse Ox 09/12/20 14:00 97.5 F L 63 16 103/65 96 09/12/20 13:02 52 L 16 95/49 L 93 09/12/20 12:47 60 16 104/65 95 09/12/20 12:00 97 F L 69 16 90/47 L 95 09/12/20 11:39 55 L Medical Necessity - Tobacco Use Smoking Status: Former smoker Assessment/Plan All Active Problems (Last Reviewed 09/12/20 @ 00:[address] Saqib Natarajan MD) Stroke-like symptoms (Acute) Patient is an 80-year-old male who presented to the ED on 09/12/2020 with an inability to ambulate. Patient also endorsed lightheadedness and vertigo, these are chronic issues for the patient and are being addressed outpatient. On my exam today patient had not attempted to ambulate so cannot comment on his gait. Denied any lightheadedness or vertigo at the time of examination, reports that these are intermittent. CBC, BMP, lipids, troponins, hemoglobin A1c unremarkable. Brain CT and CT-A of both brain and carotids were negative. MRI demonstrated no evidence of acute or subacute infarct or intracranial abnormality. Both MRI and CT demonstrated displacement of the cervical spine at C3 and C4. SOC teleneurology consult requested. Disposition pending consult. 1) Stroke like symptoms Assessment - Brain CT, head and neck CT?A, MRI demonstrate no evidence of acute or subacute infarct or intracranial abnormality - Alert and oriented x3, no focal neuro deficits observed on exam - SOC teleneurology consult requested and confirmed - Vital signs stable - EKG NSR with left ventricular hypertrophy and wide QRS complexes - NIH stroke scale 0 Plan - Disposition pending [facility] teleneurology consult - Echocardiogram results pending 2) Generalized weakness/debility Assessment - Movement disorder considered inpatient differential diagnosis - PT/OT eval unable to take place due to patient inability to move to the chair - Fall risk assessment 9, high risk Plan - Disposition pending [facility] teleneurology consult 3) CAD s/p stent Assessment -Already on guideline directed medical therapy with aspirin, Plavix, high intensity statin Plan -Continue guideline directed medical therapy 4) Paroxysmal A-Fib Assessment - Not evident on most recent EKG evaluated Plan -Continue to monitor - Aspirin and Plavix continued DVT Prophylaxis - SC Lovenox Patient seen by Lj Kam PA-C, under the supervision of Dr. Sanchez <Gerri Sanchez - Last Filed: 09/12/20 16:39> Vitals/I&O's: Vital Signs Temp Pulse Resp BP Pulse Ox 97.5 F L 63 16 103/65 96 09/12/20 14:00 09/12/20 14:00 09/12/20 14:00 09/12/20 14:00 09/12/20 14:00 Oxygen Delivery Method Room Air Weight: 225 lb 8.526 oz Body Mass Index (BMI) 33.3 Intake and Output for Last 24 Hours 09/10/20 09/11/20 09/12/20 23:59 23:59 23:59 Intake Total 500 / 500 580 / 580 Output Total 1300 / 1300 Balance 500 / 500 -720 / -720 Laboratory Results 09/11/20 21:37: WBC 4.5, RBC 3.86 L, Hgb 11.8 L, Hct 35.5 L, MCV 92.0, MCH 30.6, MCHC 33.2, RDW Std Deviation 50.4 H, RDW Coeff of [place] 14.9 H, Plt Count 247, MPV 10.8, Immature Gran % (Auto) 0.700, Neut % (Auto) 73.0 H, Lymph % (Auto) 12.2 L, [place] % (Auto) 12.6 H, Eos % (Auto) 1.1, Baso % (Auto) 0.4, Absolute Neuts (auto) 3.3, Absolute Lymphs (auto) 0.55 L, Nucleated RBC % 0, Differential Comment SCANNED 09/11/20 21:37: Sodium 137, Potassium 4.9, Chloride 103, Carbon Dioxide 28.0, Anion Gap 6, BUN 39 H, Creatinine 1.01, Estim Creat Clear Calc 58.33, Est GFR (MDRD) Af Amer 91, Est GFR (MDRD) Non-Af 76, BUN/Creatinine Ratio 38.6 H, Glucose 87, Calcium 9.1, Troponin I < 0.015 09/11/20 21:45: Urine Color Straw, Urine Clarity Clear, Urine pH 6.0, Ur Specific [place] 1.015, Urine Protein Negative, Urine Glucose (UA) Normal, Urine Ketones Negative, Urine Occult Blood 25 H, Urine Nitrite Negative, Urine Bilirubin Negative, Urine Urobilinogen Normal, Ur Leukocyte Esterase Negative, Urine RBC 0 SEEN, Urine WBC 0-5 SEEN, Ur Squamous Epith Cells 0 SEEN, Urine Bacteria RARE, Urine Mucus 0 SEEN 09/12/20 05:12: Triglycerides 37, Cholesterol 102, LDL Cholesterol 20, VLDL Cholesterol 7, HDL Cholesterol 75 09/12/20 05:12: Hemoglobin A1c 5.0 Current Medications Acetaminophen (Acetaminophen 500 Mg Tablet) 500 mg PO Q4H PRN PRN PRN Reason: Pain 1-10/Fever Last Admin: 09/12/20 06:17 Dose: 500 mg Documented by: Aspirin (Aspirin E.C. 81 Mg Tablet) [facility] Last Admin: 09/12/20 07:58 Dose: 81 mg Documented by: Atorvastatin Calcium (Atorvastatin Calcium 80 Mg Tablet) 80 mg PO QHS [facility] Clopidogrel Bisulfate (Clopidogrel Bisulfate 75 Mg Tablet) 75 mg PO DAILY [facility] Enoxaparin Sodium (Enoxaparin 40 Mg/0.4 Ml Syringe) 40 mg SC DAILY [facility] Last Admin: 09/12/20 07:58 Dose: 40 mg Documented by: Finasteride (Finasteride 5 Mg Tablet) 5 mg PO QODAY [facility] Hydralazine HCl (Hydralazine 20 Mg/Ml Vial) 5 mg IV Q30M PRN PRN Reason: to maintain BP goals Labetalol HCl (Labetalol (Prefilled) 20 Mg/4 Ml) 10 - 20 mg IV Q10M PRN PRN PRN Reason: to Maintain BP Goals Melatonin (Melatonin 3 Mg Tablet) 3 mg PO QHS [facility] Nystatin (Nystatin Powder 15gm Bottle) 1 applic TOPICAL TID [facility]; Protocol Last Admin: 09/12/20 15:46 Dose: Not Given Documented by: Ondansetron HCl (Ondansetron 4 Mg/2 Ml Vial) 4 mg IV Q8H PRN PRN PRN Reason: NAUSEA/VOMITING Pramipexole Dihydrochloride (Pramipexole Di-Hcl 0.125 Mg Tablet) 0.125 mg PO DAILY@2200 [facility] Sodium Chloride (0.9% Saline Lock 10 Ml Syringe) 10 - 40 ml IV UD PRN PRN Reason: SALINE FLUSH STROKE Vital Signs/Narrative: Vital Signs Temp Pulse Resp BP Pulse Ox 09/12/20 14:00 97.5 F L 63 16 103/65 96 09/12/20 13:02 52 L 16 95/49 L 93 09/12/20 12:47 60 16 104/65 95 Assessment/Plan Patient seen by Lj Kam PA-C under my supervision Patient seen and examined. He was admitted with a complaint of weakness and inability to ambulate. He has been having outpatient therapy for this weakness but had gotten worse. He also had associated lightheadedness and vertigo. He is therefore been for debility and strokelike symptoms. He still complains of feeling very weak today. He also complains of intentional tremors and says that his hands will shake whenever he motions to get something. Review of systems otherwise negative. He has remained hemodynamically stable. O/E: Vital Signs Temp Pulse Resp BP Pulse Ox 97.5 F L 63 16 103/65 96 09/12/20 14:00 09/12/20 14:00 09/12/20 14:00 09/12/20 14:00 09/12/20 14:00 General: Alert, Oriented x3, Cooperative, frail HEENT: Atraumatic, PERRLA, EOMI, Normocephalic Neck: Supple, No JVD, Negative Carotid Bruits Lungs: Clear to auscultation, Normal air movement Cardiovascular: Regular rate, No murmurs Abdomen: Bowel Sounds Present, Soft, Non Tender Extremities: No edema, Capillary Refill Less than 3 Seconds Skin: No rashes, No breakdown Musculoskeletal: No Tenderness to Palpation of Joints or Extremities Neurological: Cranial nerves II-XII grossly intact, power 4/5 in all extremities. Hs intentional tremors of both UEs Psych/Mental Status: Normal Affect, Appropriate CT of the brain showed no acute intracranial pathology. MRI of the brain also showed no evidence of acute or subacute infarct or intracranial abnormality but showed posterior displacement of the cervical spinal cord which is likely secondary to anterolisthesis of C3 on C4 which could be due to degenerative changes. SOC neurology consulted. Await recommendations. Continue working with physical therapy and Occupational Therapy. Fall precautions. Will likely need placement. Rest as per Lj Kam PA-C's notes which I have reviewed and endorsed. Inpatient E&M: 52398 Subs Hosp L2
--- NOTE | 2020-09-12 18:52 | NURSING ---
Unable to place cervical collar on patient. Patients neck is stiff and short, I do not want to injure patient. Lj BANKS notified. see physician notification.
[2020-09-12] MEDS: Atorvastatin Calcium 80 MG Tablet PO (19:39)
[2020-09-12] MEDS: Pramipexole Di-HCl 0.125 MG Tablet PO (19:40)
--- NOTE | 2020-09-12 20:50 | RAD_ITS ---
HISTORY: Assess cervical skeletal structure COMPARISON: None FINDINGS: # of images incl. paperwork: 6 XR Spine Cervical 6 images: Prevertebral soft tissues are not thickened. Imaging extends into the sixth of the seventh vertebral bodies. Not all of the margins of the seventh vertebral body are identified due to attenuation from the patient's shoulders. There is a flexion deformity of the cervical spinal extending anteriorly. Degenerative disc disease is present at every level. Degenerative malalignment is present at most levels. This degenerative malalignment is greatest at the C3-C4 level. C3 is anteriorly subluxed on C4 by 11 mm. Facet arthropathy is also present at every level. Anterior enthesophytes are present at every level. Fibrotic lung disease. Pulmonary hypoexpansion. Atherosclerosis. The odontoid and its relationship to the lateral masses are not well discerned. RAD/Cerv Spine 2 or 3 Views IMPRESSION: Severely limited study due to kyphosis and inability to obtain a frontal image perpendicular to the disc spaces. Unable to visualize all of C7 on the lateral images. Unable to adequately identify the odontoid and its relationship to the lateral masses. Multilevel degenerative disc disease. Degenerative malalignment. Degenerative malalignment is greatest at the C3-C4 level where C3 is anteriorly subluxed on C4 by 11 mm. In addition to degenerative disc disease with enthesophytes there is facet arthropathy and uncovertebral hypertrophy. No acute fracture perceived. at [id number] Reported and signed by: Wilton Najera MD Electronically Signed: Wilton Najera MD at 22:45 EDT Tel , Service support ,
[2020-09-12] MEDS: MELATONIN 3 MG TABLET PO (21:09)
[2020-09-13] VITALS (9 sets, daily range): BP systolic 96–128; BP diastolic 33–64; PULSE 57–79; RESP 18; TEMP 36.6–37; O2SAT 93–95
[2020-09-13] MEDS: Nystatin Powder 15gm Bottle 1 APPLIC TOPICAL ×2 (05:36→21:11)
--- NOTE | 2020-09-13 05:55 | MRI_ITS ---
STUDY: MRI CERVICAL SPINE WITHOUT CONTRAST REASON FOR EXAM: Male, 80 years old. Cord compression. TECHNIQUE: Standardized fat and water weighted pulse sequences were obtained in the sagittal and axial planes. COMPARISON: X-ray dated 09/12/2020. FINDINGS: Normal foramen magnum and brainstem-cervical cord junction. Degenerative intact craniovertebral junction. Degenerative intact anterior atlantoaxial articulation. Intact odontoid process. Reversal of the normal cervical lordosis. No significant scoliosis. No abnormal cord signal. Vascular flow voids maintained. No acute cervical spine fracture, dislocation or cortical destruction. C2-3: Mild endplate spondylosis. Normal disc height, signal and morphology. Normal central canal and intervertebral neural foramina. Facet joint arthrosis. C3-4: Moderate endplate spondylosis. Disc bulge/uncovering. Severe central canal narrowing. Severe bilateral neural foraminal narrowing. Grade 1/2 spondylolisthesis. Facet joint arthrosis. C4-5: Mild endplate spondylosis. Disc/osteophyte complex. Severe left neural foraminal narrowing. Normal right neural foramina. Normal central canal. C5-6: Moderate endplate spondylosis. Shallow disc/osteophyte complex. Moderate left and mild right neural foraminal narrowing. C6-7: Mild endplate spondylosis. Disc/osteophyte complex. Mild central canal narrowing. Severe left and moderate right neural foraminal narrowing. C7-T1: Mild endplate spondylosis. Disc/osteophyte complex. Normal central canal. Mild right neural foraminal narrowing. Normal left neural foramina. 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
[2020-09-13] MEDS: Clopidogrel Bisulfate 75 MG Tablet PO (08:49)
[2020-09-13] MEDS: Aspirin E.C. 81 MG Tablet PO (08:49)
[2020-09-13] MEDS: Finasteride 5 MG Tablet PO (08:49)
[2020-09-13] MEDS: Enoxaparin 40 MG/0.4 ML Syringe SC (08:49)
--- NOTE | 2020-09-13 14:23 | PCM.DC.SUM ---
Discharge Date and Diagnosis - Problem List Patient Problems: Active and Suspected Problems (Last Reviewed 09/12/20 @ 00:[address] Saqib aNtarajan MD) Stroke-like symptoms (Acute) Date of Admission: 09/12/20 Date of Discharge: 09/13/20 - Primary Discharge Diagnosis Acute Problems: Active Problems (Last Reviewed 09/12/20 @ 00:[address] Saqib Natarajan MD) Stroke-like symptoms (Acute) - Secondary Discharge Diagnosis Chronic Problems: Chronic Problems (Last Reviewed 09/12/20 @ 00:[address] Saqib Natarajan MD) CAD (coronary artery disease) (Chronic) Leg swelling (Chronic) PAD (peripheral artery disease) (Chronic) [facility] use of drug (Chronic) Antithrombotics/antiplatelets Hyperlipidemia (Chronic) Hypertension (Chronic) S/P coronary artery stent placement (Chronic) PCI- XU- Prox RCA, Prox-Mid RCA and RPLB (Synergy Stents) 01/11/16 @ [facility] Old myocardial infarction (Chronic) Atherosclerotic heart disease of [place] coronary artery without angina pectoris (Chronic) PCI- XU- Prox RCA, Prox-Mid RCA and RPLB (Synergy Stents) 01/11/16 @ [facility] Paroxysmal atrial fibrillation (Chronic) Dilated aortic root (Chronic) Hospital Course and Treatment Imaging Results: 09/13/20 05:55 MRI Cervical [Spine Cervical (Routine)] [MRI] AM (NON MEDS) Clinical Impression(s) from Imaging Studies Brain CT 09/11/20 21:33 IMPRESSION: No acute intracranial abnormality. Chronic changes as above. ASPECT 10. Individualized dose optimization techniques were used for this CT. at 2325 Reported and signed by: Wilton Najera MD Electronically Signed: Wilton Najera MD at 23:23 EDT Tel , Service support , Chest X-Ray 09/11/20 22:25 IMPRESSION: No acute disease perceived. Slight elevation of the right hemidiaphragm which has progressed since the previous study. Anchoring devices in the left humeral head likely related to rotator cuff repair surgery, lower, elevation of the left humeral head within the left glenoid fossa with pseudoarticulation of the left humeral head with the undersurface of the left acromion suggestive of chronic recurrent full-thickness rotator cuff tear.. at 2322 Reported and signed by: Wilton Najera MD Electronically Signed: Wilton Najera MD at 23:21 EDT Tel , Service support , Brain MRI 09/12/20 01:13 IMPRESSION: 1. 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 Considering his age, this is presumably on a degenerative basis. 2. MRI cervical spine will be very helpful for further evaluation. 3. No MRI evidence of acute or subacute ischemic infarct or acute intracranial abnormality. 4. Chronic white matter ischemic changes in the left posterior periventricular white matter. Electronically Signed: Kevin Argueta MD at 13:56 EDT , Service support , Head/Neck CTA 09/12/20 12:49 IMPRESSION: 1. Negative CT Brain, CTA Carotid, and CTA Brain. 2. 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 MRI cervical spine will be very helpful for further evaluation. Electronically Signed: Kevin Argueta MD at 14:01 EDT , Service support , Cervical Spine X-Ray 09/12/20 20:50 IMPRESSION: Severely limited study due to kyphosis and inability to obtain a frontal image perpendicular to the disc spaces. Unable to visualize all of C7 on the lateral images. Unable to adequately identify the odontoid and its relationship to the lateral masses. Multilevel degenerative disc disease. Degenerative malalignment. Degenerative malalignment is greatest at the C3-C4 level where C3 is anteriorly subluxed on C4 by 11 mm. In addition to degenerative disc disease with enthesophytes there is facet arthropathy and uncovertebral hypertrophy. No acute fracture perceived. at 2247 Reported and signed by: Wilton Najera MD Electronically Signed: Wilton Najera MD at 22:45 EDT Tel , Service support , Operations: None Summary of Care Provided: Patient is an 80-year-old male who presented to the ED on 09/12/2020 with an inability to ambulate. Patient also endorsed lightheadedness and vertigo, these are chronic issues for the patient and are being addressed outpatient. Patient admitted for stroke like symtpoms. Brain CT and Brain MRI demonstrated no evidence of acute ishcemia or infarction. CT-A of both brain and carotids were unremarkable, although CT-A did show degenerative anterolisthesis of C3 on C4 with pronounced bilateral C3-C4 arthropathy. MRI of the neck confirmed these findings. Given the significant anterolisthesis of C3 on C4, [facility] teleneurology thought that it would be best to get a neurosurgical consult for Mr. Cruz as this could be the reason for the patients decrease in functionality. Discussed disposition with patient and he agreed to receive a Neurosurgical consult. [facility] agreed to take patient. Transfer being initiated. 1) Stroke like symptoms Assessment - Brain CT, head and neck CT?A, MRI demonstrate no evidence of acute or subacute infarct or intracranial abnormality - MRI and CT-A of neck demonstrated anterolisthesis of C3 on C4. - [facility] Tele-neurology recommended Neurosurgical consult for the patient - Echocardiogram unremarkable Plan - Patient to be transferred to [facility] for Neurosurgical consult 2) Generalized weakness/debility Assessment - Movement disorder considered inpatient differential diagnosis - PT/OT eval unable to take place due to patient inability to move to the chair - Fall risk assessment 9, high risk Plan - Patient to be transferred to [facility] for Neurosurgical consult 3) CAD s/p stent Assessment -Already on guideline directed medical therapy with aspirin, Plavix, high intensity statin Plan -Continue guideline directed medical therapy 4) Paroxysmal A-Fib Assessment - Not evident on most recent EKG evaluated Plan -Continue to monitor - Aspirin and Plavix continued DVT Prophylaxis - [facility] Patient seen by Lj Kam PA-C, under the supervision of Dr. Sanchez Patient Problems: Active and Suspected Problems (Last Reviewed 09/12/20 @ 00:[address] Saqib Natarajan MD) Stroke-like symptoms (Acute) Subjective: Patient is a pleasant 80-year-old male who is resting comfortably in bed, alert and oriented x3. Patient has not attempted to ambulate today so cannot comment about difficulty, denies lightheadedness and dizziness on examination. Patient admits that his lightheadedness and dizziness is intermittent. Denies chest pain, palpitations, shortness of breath, fever, N/V/D. No focal neural deficits observed. Objective: Clinical Impression(s) from Imaging Studies Brain CT 09/11/20 21:33 IMPRESSION: No acute intracranial abnormality. Chronic changes as above. ASPECT 10. Individualized dose optimization techniques were used for this CT. at 2325 Reported and signed by: Wilton Najera MD Electronically Signed: Wilton Najera MD at 23:23 EDT Tel , Service support , Chest X-Ray 09/11/20 22:25 IMPRESSION: No acute disease perceived. Slight elevation of the right hemidiaphragm which has progressed since the previous study. Anchoring devices in the left humeral head likely related to rotator cuff repair surgery, lower, elevation of the left humeral head within the left glenoid fossa with pseudoarticulation of the left humeral head with the undersurface of the left acromion suggestive of chronic recurrent full-thickness rotator cuff tear.. at 2322 Reported and signed by: Wilton Najera MD Electronically Signed: Wilton Najera MD at 23:21 EDT Tel , Service support , Brain MRI 09/12/20 01:13 IMPRESSION: 1. 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 Considering his age, this is presumably on a degenerative basis. 2. MRI cervical spine will be very helpful for further evaluation. 3. No MRI evidence of acute or subacute ischemic infarct or acute intracranial abnormality. 4. Chronic white matter ischemic changes in the left posterior periventricular white matter. Electronically Signed: Kevin Argueta MD at 13:56 EDT , Service support , Head/Neck CTA 09/12/20 12:49 IMPRESSION: 1. Negative CT Brain, CTA Carotid, and CTA Brain. 2. 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 MRI cervical spine will be very helpful for further evaluation. Electronically Signed: Kevin Argueta MD at 14:01 EDT , Service support , Cervical Spine X-Ray 09/12/20 20:50 IMPRESSION: Severely limited study due to kyphosis and inability to obtain a frontal image perpendicular to the disc spaces. Unable to visualize all of C7 on the lateral images. Unable to adequately identify the odontoid and its relationship to the lateral masses. Multilevel degenerative disc disease. Degenerative malalignment. Degenerative malalignment is greatest at the C3-C4 level where C3 is anteriorly subluxed on C4 by 11 mm. In addition to degenerative disc disease with enthesophytes there is facet arthropathy and uncovertebral hypertrophy. No acute fracture perceived. at 2247 Reported and signed by: Wilton Najera MD Electronically Signed: Wilton Najera MD at 22:45 EDT Tel , Service support , - Physical Exam Vitals/I&O's: Vital Signs Temp Pulse Resp BP Pulse Ox 98.1 F 79 18 101/64 93 09/13/20 08:36 09/13/20 08:36 09/13/20 08:36 09/13/20 08:36 09/13/20 08:36 Oxygen Delivery Method Room Air Weight: 225 lb 8.526 oz Body Mass Index (BMI) 33.3 Intake and Output for Last 24 Hours 09/11/20 09/12/20 09/13/20 23:59 23:59 23:59 Intake Total 500 / 500 1060 / 1060 Output Total 1800 / 1800 300 / 300 Balance 500 / 500 -740 / -740 -300 / -300 General: Alert, Oriented x3, Cooperative HEENT: Atraumatic, PERRLA, EOMI, Normocephalic Neck: Supple, No JVD, Negative Carotid Bruits Lungs: Clear to auscultation, Normal air movement Cardiovascular: Regular rate, No murmurs Abdomen: Bowel Sounds Present, Soft, Non Tender Extremities: No edema, Capillary Refill Less than 3 Seconds Skin: No rashes, No breakdown Musculoskeletal: No Tenderness to Palpation of Joints or Extremities Neurological: Sensory exam intact to light touch and pain, - - Difficult to assess neurological status given patient weakness. Psych/Mental Status: Normal Affect, Appropriate Current Medications Acetaminophen (Acetaminophen 500 Mg Tablet) 500 mg PO Q4H PRN PRN PRN Reason: Pain 1-10/Fever Last Admin: 09/12/20 19:38 Dose: 500 mg Documented by: Aspirin (Aspirin E.C. 81 Mg Tablet) [facility] Last Admin: 09/13/20 08:49 Dose: 81 mg Documented by: Atorvastatin Calcium (Atorvastatin Calcium 80 Mg Tablet) 80 mg PO QHS COUNTS INCLUDE 234 BEDS AT THE [facility] Last Admin: 09/12/20 19:39 Dose: 80 mg Documented by: Clopidogrel Bisulfate (Clopidogrel Bisulfate 75 Mg Tablet) 75 mg PO DAILY COUNTS INCLUDE 234 BEDS AT THE [facility] Last Admin: 09/13/20 08:49 Dose: 75 mg Documented by: Enoxaparin Sodium (Enoxaparin 40 Mg/0.4 Ml Syringe) 40 mg SC DAILY COUNTS INCLUDE 234 BEDS AT THE [facility] Last Admin: 09/13/20 08:49 Dose: 40 mg Documented by: Finasteride (Finasteride 5 Mg Tablet) 5 mg PO QODAY COUNTS INCLUDE 234 BEDS AT THE [facility] Last Admin: 09/13/20 08:49 Dose: 5 mg Documented by: Hydralazine HCl (Hydralazine 20 Mg/Ml Vial) 5 mg IV Q30M PRN PRN Reason: to maintain BP goals Labetalol HCl (Labetalol (Prefilled) 20 Mg/4 Ml) 10 - 20 mg IV Q10M PRN PRN PRN Reason: to Maintain BP Goals Melatonin (Melatonin 3 Mg Tablet) 3 mg PO QHS COUNTS INCLUDE 234 BEDS AT THE [facility] Last Admin: 09/12/20 21:09 Dose: 3 mg Documented by: Nutritional Formula (Lactose Free) (Ensure Enlive 120 Ml Liquid) 120 ml PO 4X/DAY COUNTS INCLUDE 234 BEDS AT THE [facility] Last Admin: 09/13/20 08:51 Dose: 120 ml Documented by: Nystatin (Nystatin Powder 15gm Bottle) 1 applic TOPICAL TID COUNTS INCLUDE 234 BEDS AT THE [facility]; Protocol Last Admin: 09/13/20 05:36 Dose: 1 dose Documented by: Ondansetron HCl (Ondansetron 4 Mg/2 Ml Vial) 4 mg IV Q8H PRN PRN PRN Reason: NAUSEA/VOMITING Pramipexole Dihydrochloride (Pramipexole Di-Hcl 0.125 Mg Tablet) 0.125 mg PO DAILY@2200 COUNTS INCLUDE 234 BEDS AT THE [facility] Last Admin: 09/12/20 19:40 Dose: 0.125 mg Documented by: Sodium Chloride (0.9% Saline Lock 10 Ml Syringe) 10 - 40 ml IV UD PRN PRN Reason: SALINE FLUSH Home Medications: Medications to take at Discharge Aspirin [Adult Low Dose Aspirin EC] 81 mg PO DAILY 01/30/16 finasteride 5 mg tablet 5 mg PO QODAY 07/18/17 acetaminophen 500 mg tablet 500 mg PO Q4H PRN 09/25/18 clopidogrel 75 mg tablet See Rx Instructions .ROUTE .COMPLEX #90 tab 12/21/19 atorvastatin 80 mg tablet 80 mg PO QHS #90 tab 04/05/20 Melatonin/Pyridoxine HCl (B6) [Melatonin 3 mg Tablet] 3 mg PO QHS 09/11/20 Pramipexole Di-HCl [Mirapex] 0.125 mg PO DAILY 09/11/20 Primary Care Physician: Donte Wang MD [Primary Care Provider] - Disposition: Acute care Hospital Minutes spent on discharge:: 35 Patient Condition:: Stable Medical Necessity - Tobacco Use Smoking Status: Former smoker Meaningful Use Info Meaningful Use Diagnoses (Choose all that apply): None applicable
[2020-09-13] MEDS: Pramipexole Di-HCl 0.125 MG Tablet PO (21:11)
[2020-09-13] MEDS: Atorvastatin Calcium 80 MG Tablet PO (21:11)
[2020-09-13] MEDS: MELATONIN 3 MG TABLET PO (21:11)
[2020-09-13] MEDS: Acetaminophen 500 MG Tablet PO (21:14)
[2020-09-14] VITALS (11 sets, daily range): BP systolic 110–145; BP diastolic 51–74; PULSE 52–77; RESP 16–18; TEMP 36.5–37.3; O2SAT 93–96
[2020-09-14] MEDS: Acetaminophen 500 MG Tablet PO ×4 (02:00→20:09)
[2020-09-14] MEDS: Aspirin E.C. 81 MG Tablet PO (08:15)
--- NOTE | 2020-09-14 08:48 | PN_ITS ---
<Lj Kam - Last Filed: 09/14/20 08:48> Patient Problems: Active and Suspected Problems (Last Reviewed 09/12/20 @ 00:[address] Saqib Natarajan MD) Stroke-like symptoms (Acute) Subjective: Patient is a pleasant 80-year-old male who is resting comfortably in bed, alert and oriented x3. Patient has not attempted to ambulate today so cannot comment about difficulty, denies lightheadedness and dizziness on examination. Patient admits that his lightheadedness and dizziness is intermittent. Denies chest olivia n, palpitations, shortness of breath, fever, N/V/D. Objective: Clinical Impression(s) from Imaging Studies Brain CT 09/11/20 21:33 IMPRESSION: No acute intracranial abnormality. Chronic changes as above. ASPECT 10. Individualized dose optimization techniques were used for this CT. at 2325 Reported and signed by: Wilton Najera MD Electronically Signed: Wilton Najera MD at 23:23 EDT Tel , Service support , Chest X-Ray 09/11/20 22:25 IMPRESSION: No acute disease perceived. Slight elevation of the right hemidiaphragm which has progressed since the previous study. Anchoring devices in the left humeral head likely related to rotator cuff repair surgery, lower, elevation of the left humeral head within the left glenoid fossa with pseudoarticulation of the left humeral head with the undersurface of the left acromion suggestive of chronic recurrent full-thickness rotator cuff tear.. at 2322 Reported and signed by: Wilton Najera MD Electronically Signed: Wilton Najera MD at 23:21 EDT Tel , Service support , Brain MRI 09/12/20 01:13 IMPRESSION: 1. 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 Considering his age, this is presumably on a degenerative basis. 2. MRI cervical spine will be very helpful for further evaluation. 3. No MRI evidence of acute or subacute ischemic infarct or acute intracranial abnormality. 4. Chronic white matter ischemic changes in the left posterior periventricular white matter. Electronically Signed: Kevin Argueta MD at 13:56 EDT , Service support , Head/Neck CTA 09/12/20 12:49 IMPRESSION: 1. Negative CT Brain, CTA Carotid, and CTA Brain. 2. 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 MRI cervical spine will be very helpful for further evaluation. Electronically Signed: Kevin Argueta MD at 14:01 EDT , Service support , Cervical Spine X-Ray 09/12/20 20:50 IMPRESSION: Severely limited study due to kyphosis and inability to obtain a frontal image perpendicular to the disc spaces. Unable to visualize all of C7 on the lateral images. Unable to adequately identify the odontoid and its relationship to the lateral masses. Multilevel degenerative disc disease. Degenerative malalignment. Degenerative malalignment is greatest at the C3-C4 level where C3 is anteriorly subluxed on C4 by 11 mm. In addition to degenerative disc disease with enthesophytes there is facet arthropathy and uncovertebral hypertrophy. No acute fracture perceived. at 2247 Reported and signed by: Wilton Najera MD Electronically Signed: Wilton Najera MD at 22:45 EDT Tel , Service support , Vitals/I&O's: Vital Signs Temp Pulse Resp BP Pulse Ox 98.0 F 74 16 127/57 H 94 09/14/20 08:20 09/14/20 08:20 09/14/20 08:20 09/14/20 08:20 09/14/20 08:20 Oxygen Delivery Method Room Air Weight: 225 lb 8.526 oz Body Mass Index (BMI) 33.3 Intake and Output for Last 24 Hours 09/12/20 09/13/20 09/14/20 23:59 23:59 23:59 Intake Total 1060 / 1060 1080 / 1080 Output Total 1800 / 1800 1800 / 1800 Balance -740 / -740 -720 / -720 General: Alert, Oriented x3, Cooperative HEENT: Atraumatic, PERRLA, EOMI, Normocephalic Neck: Supple, No JVD, Negative Carotid Bruits Lungs: Clear to auscultation, Normal air movement Cardiovascular: Regular rate, No murmurs Abdomen: Bowel Sounds Present, Soft, Non Tender Extremities: No edema, Capillary Refill Less than 3 Seconds Skin: No rashes, No breakdown Musculoskeletal: No Tenderness to Palpation of Joints or Extremities Neurological: Sensory exam intact to light touch and pain, - - Difficult to assess neurological status given patient weakness Psych/Mental Status: Normal Affect, Appropriate Current Medications Acetaminophen (Acetaminophen 500 Mg Tablet) 500 mg PO Q4H PRN PRN PRN Reason: Pain 1-10/Fever Last Admin: 09/14/20 02:00 Dose: 500 mg Documented by: Aspirin (Aspirin E.C. 81 Mg Tablet) [facility] Last Admin: 09/13/20 08:49 Dose: 81 mg Documented by: Atorvastatin Calcium (Atorvastatin Calcium 80 Mg Tablet) 80 mg PO QHS [facility] Last Admin: 09/13/20 21:11 Dose: 80 mg Documented by: Clopidogrel Bisulfate (Clopidogrel Bisulfate 75 Mg Tablet) 75 mg PO DAILY [facility] Last Admin: 09/13/20 08:49 Dose: 75 mg Documented by: Enoxaparin Sodium (Enoxaparin 40 Mg/0.4 Ml Syringe) 40 mg SC DAILY [facility] Last Admin: 09/13/20 08:49 Dose: 40 mg Documented by: Finasteride (Finasteride 5 Mg Tablet) 5 mg PO QODAY [facility] Last Admin: 09/13/20 08:49 Dose: 5 mg Documented by: Hydralazine HCl (Hydralazine 20 Mg/Ml Vial) 5 mg IV Q30M PRN PRN Reason: to maintain BP goals Labetalol HCl (Labetalol (Prefilled) 20 Mg/4 Ml) 10 - 20 mg IV Q10M PRN PRN PRN Reason: to Maintain BP Goals Melatonin (Melatonin 3 Mg Tablet) 3 mg PO QHS [facility] Last Admin: 09/13/20 21:11 Dose: 3 mg Documented by: Nutritional Formula (Lactose Free) (Ensure Enlive 120 Ml Liquid) 120 ml PO 4X/DAY [facility] Last Admin: 09/13/20 21:11 Dose: 120 ml Documented by: Nystatin (Nystatin Powder 15gm Bottle) 1 applic TOPICAL TID [facility]; Protocol Last Admin: 09/14/20 05:18 Dose: Not Given Documented by: Ondansetron HCl (Ondansetron 4 Mg/2 Ml Vial) 4 mg IV Q8H PRN PRN PRN Reason: NAUSEA/VOMITING Pramipexole Dihydrochloride (Pramipexole Di-Hcl 0.125 Mg Tablet) 0.125 mg PO DAILY@2200 [facility] Last Admin: 09/13/20 21:11 Dose: 0.125 mg Documented by: Sodium Chloride (0.9% Saline Lock 10 Ml Syringe) 10 - 40 ml IV UD PRN PRN Reason: SALINE FLUSH STROKE Vital Signs/Narrative: Vital Signs Temp Pulse Resp BP Pulse Ox 09/14/20 08:20 98.0 F 74 16 127/57 H 94 09/14/20 06:49 52 L Medical Necessity - Tobacco Use Smoking Status: Former smoker Assessment/Plan All Active Problems (Last Reviewed 09/12/20 @ 00:[address] Saqib Natarajan MD) Stroke-like symptoms (Acute) This progress note is being backdated for 09/13/2020 and is being dictated on 09/14/2020. Anticipated discharge, however patient did not have a bed at [facility] so remained admitted at [facility]. Patient is an 80-year-old male who presented to the ED on 09/12/2020 with an inability to ambulate. Patient also endorsed lightheadedness and vertigo, these are chronic issues for the patient and are being addressed outpatient. Patient admitted for stroke like symtpoms. Brain CT and Brain MRI demonstrated no evidence of acute ishcemia or infarction. CT-A of both brain and carotids were unremarkable, although CT-A did show degenerative anterolisthesis of C3 on C4 with pronounced bilateral C3-C4 arthropathy. MRI of the neck confirmed these findings. Given the significant anterolisthesis of C3 on C4, [facility] teleneurology thought that it would be best to get a neurosurgical consult for Mr. Cruz as this could be the reason for the patients decrease in functionality. Discussed disposition with patient and he agreed to receive a Neurosurgical consult. [facility] agreed to take patient. Transfer being initiated. 1) Stroke like symptoms Assessment - Brain CT, head and neck CT?A, MRI demonstrate no evidence of acute or subacute infarct or intracranial abnormality - MRI and CT-A of neck demonstrated anterolisthesis of C3 on C4. - [facility] Tele-neurology recommended Neurosurgical consult for the patient - Echocardiogram unremarkable Plan - Patient to be transferred to [facility] for Neurosurgical consult 2) Generalized weakness/debility Assessment - Movement disorder considered inpatient differential diagnosis - PT/OT eval unable to take place due to patient inability to move to the chair - Fall risk assessment 9, high risk Plan - Patient to be transferred to [facility] for Neurosurgical consult 3) CAD s/p stent Assessment -Already on guideline directed medical therapy with aspirin, Plavix, high intensity statin Plan -Continue guideline directed medical therapy 4) Paroxysmal A-Fib Assessment - Not evident on most recent EKG evaluated Plan -Continue to monitor - Aspirin and Plavix continued DVT Prophylaxis - SC Lovenox Patient seen by Lj Kam PA-C, under the supervision of Dr. Sanchez <Gerri Sanchez - Last Filed: 09/14/20 15:01> Vitals/I&O's: Vital Signs Temp Pulse Resp BP Pulse Ox 99.2 F H 68 16 110/51 L 95 09/14/20 14:15 09/14/20 14:15 09/14/20 14:15 09/14/20 14:15 09/14/20 14:15 Oxygen Delivery Method Room Air Weight: 225 lb 8.526 oz Body Mass Index (BMI) 33.3 Intake and Output for Last 24 Hours 09/12/20 09/13/20 09/14/20 23:59 23:59 23:59 Intake Total 1060 / 1060 1080 / 1080 1000 / 1000 Output Total 1800 / 1800 1800 / 1800 300 / 300 Balance -740 / -740 -720 / -720 700 / 700 Current Medications Acetaminophen (Acetaminophen 500 Mg Tablet) 500 mg PO Q4H PRN PRN PRN Reason: Pain 1-10/Fever Last Admin: 09/14/20 10:21 Dose: 500 mg Documented by: Aspirin (Aspirin E.C. 81 Mg Tablet) 81 mg PO DAILYCM [facility] Last Admin: 09/14/20 08:15 Dose: 81 mg Documented by: Atorvastatin Calcium (Atorvastatin Calcium 80 Mg Tablet) 80 mg PO QHS [facility] Last Admin: 09/13/20 21:11 Dose: 80 mg Documented by: Clopidogrel Bisulfate (Clopidogrel Bisulfate 75 Mg Tablet) 75 mg PO DAILY [facility] Last Admin: 09/14/20 10:21 Dose: 75 mg Documented by: Enoxaparin Sodium (Enoxaparin 40 Mg/0.4 Ml Syringe) 40 mg SC DAILY [facility] Last Admin: 09/14/20 10:20 Dose: 40 mg Documented by: Finasteride (Finasteride 5 Mg Tablet) 5 mg PO QODAY [facility] Last Admin: 09/13/20 08:49 Dose: 5 mg Documented by: Hydralazine HCl (Hydralazine 20 Mg/Ml Vial) 5 mg IV Q30M PRN PRN Reason: to maintain BP goals Labetalol HCl (Labetalol (Prefilled) 20 Mg/4 Ml) 10 - 20 mg IV Q10M PRN PRN PRN Reason: to Maintain BP Goals Melatonin (Melatonin 3 Mg Tablet) 3 mg PO QHS [facility] Last Admin: 09/13/20 21:11 Dose: 3 mg Documented by: Nutritional Formula (Lactose Free) (Ensure Enlive 120 Ml Liquid) 120 ml PO 4X/DAY [facility] Last Admin: 09/14/20 10:21 Dose: 120 ml Documented by: Nystatin (Nystatin Powder 15gm Bottle) 1 applic TOPICAL TID [facility]; Protocol Last Admin: 09/14/20 05:18 Dose: Not Given Documented by: Ondansetron HCl (Ondansetron 4 Mg/2 Ml Vial) 4 mg IV Q8H PRN PRN PRN Reason: NAUSEA/VOMITING Pramipexole Dihydrochloride (Pramipexole Di-Hcl 0.125 Mg Tablet) 0.125 mg PO DAILY@2200 [facility] Last Admin: 09/13/20 21:11 Dose: 0.125 mg Documented by: Sodium Chloride (0.9% Saline Lock 10 Ml Syringe) 10 - 40 ml IV UD PRN PRN Reason: SALINE FLUSH Last Admin: 09/14/20 10:22 Dose: 5 ml Documented by: STROKE Vital Signs/Narrative: Vital Signs Temp Pulse Resp BP Pulse Ox 09/14/20 14:15 99.2 F H 68 16 110/51 L 95 09/14/20 14:00 68 16 95 Assessment/Plan Late entry note for 09/13/2020 Patient seen and examined. He had no complaints and still complained of weakness. 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 He is still awaiting a bed He has no complaints , though he still feels weak. He is a bit apprehensive about the transfer because he may need surgery. Review of systems otherwise negative. He has remained hemodynamically stable. O/E: Vital Signs Temp Pulse Resp BP Pulse Ox 99.2 F H 68 16 110/51 L 95 09/14/20 14:15 09/14/20 14:15 09/14/20 14:15 09/14/20 14:15 09/14/20 14:15 General: Alert, Oriented x3, Cooperative HEENT: Atraumatic, PERRLA, EOMI, Normocephalic Neck: Supple, No JVD, Negative Carotid Bruits Lungs: Clear to auscultation, Normal air movement Cardiovascular: Regular rate, No murmurs Abdomen: Bowel Sounds Present, Soft, Non Tender Extremities: No edema, Capillary Refill Less than 3 Seconds Skin: No rashes, No breakdown Musculoskeletal: No Tenderness to Palpation of Joints or Extremities Neurological: Cranial nerves II-XII grossly intact Psych/Mental Status: Normal Affect, Appropriate CT of the cervical spine MRI is as above. PT/OT on board. Fall precautions. Neurology on board and recommended that patient be transferred o/a of cervical spine MRI findings neurosurgery evaluation. Patient to be transferred to [facility] when bed is available. Rest as per Lj Kam's note, which I have reviewed and endorsed. Inpatient E&M: 78852 Subs Hosp L2
[2020-09-14] MEDS: Enoxaparin 40 MG/0.4 ML Syringe SC (10:20)
[2020-09-14] MEDS: Clopidogrel Bisulfate 75 MG Tablet PO (10:21)
[2020-09-14] MEDS: 0.9% Saline Lock 10 ML Syringe IV (10:22)
--- NOTE | 2020-09-14 13:28 | DS.PCM_ITS ---
Discharge Date and Diagnosis - Problem List Patient Problems: Active and Suspected Problems (Last Reviewed 09/12/20 @ 00:[address] Saqib Natarajan MD) Stroke-like symptoms (Acute) Date of Admission: 09/12/20 Date of Discharge: 09/14/20 - Primary Discharge Diagnosis Acute Problems: Active Problems (Last Reviewed 09/12/20 @ 00:[address] Saqib Natarajan MD) Stroke-like symptoms (Acute) - Secondary Discharge Diagnosis Chronic Problems: Chronic Problems (Last Reviewed 09/12/20 @ 00:[address] Saqib Natarajan MD) CAD (coronary artery disease) (Chronic) Leg swelling (Chronic) PAD (peripheral artery disease) (Chronic) alf use of drug (Chronic) Antithrombotics/antiplatelets Hyperlipidemia (Chronic) Hypertension (Chronic) S/P coronary artery stent placement (Chronic) PCI- XU- Prox RCA, Prox-Mid RCA and RPLB (Synergy Stents) 01/11/16 @ [facility] Old myocardial infarction (Chronic) Atherosclerotic heart disease of ute coronary artery without angina pectoris (Chronic) PCI- XU- Prox RCA, Prox-Mid RCA and RPLB (Synergy Stents) 01/11/16 @ [facility] Paroxysmal atrial fibrillation (Chronic) Dilated aortic root (Chronic) Hospital Course and Treatment Imaging Results: Clinical Impression(s) from Imaging Studies Brain CT 09/11/20 21:33 IMPRESSION: No acute intracranial abnormality. Chronic changes as above. ASPECT 10. Individualized dose optimization techniques were used for this CT. at 2325 Reported and signed by: Wilton Najera MD Electronically Signed: Wilton Najera MD at 23:23 EDT Tel , Service support , Chest X-Ray 09/11/20 22:25 IMPRESSION: No acute disease perceived. Slight elevation of the right hemidiaphragm which has progressed since the previous study. Anchoring devices in the left humeral head likely related to rotator cuff repair surgery, lower, elevation of the left humeral head within the left glenoid fossa with pseudoarticulation of the left humeral head with the undersurface of the left acromion suggestive of chronic recurrent full-thickness rotator cuff tear.. at 2322 Reported and signed by: Wilton Najera MD Electronically Signed: Wilton Najera MD at 23:21 EDT Tel , Service support , Brain MRI 09/12/20 01:13 IMPRESSION: 1. 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 Considering his age, this is presumably on a degenerative basis. 2. MRI cervical spine will be very helpful for further evaluation. 3. No MRI evidence of acute or subacute ischemic infarct or acute intracranial abnormality. 4. Chronic white matter ischemic changes in the left posterior periventricular white matter. Electronically Signed: Kevin Argueta MD at 13:56 EDT , Service support , Head/Neck CTA 09/12/20 12:49 IMPRESSION: 1. Negative CT Brain, CTA Carotid, and CTA Brain. 2. 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 MRI cervical spine will be very helpful for further evaluation. Electronically Signed: Kevin Argueta MD at 14:01 EDT , Service support , Cervical Spine X-Ray 09/12/20 20:50 IMPRESSION: Severely limited study due to kyphosis and inability to obtain a frontal image perpendicular to the disc spaces. Unable to visualize all of C7 on the lateral images. Unable to adequately identify the odontoid and its relationship to the lateral masses. Multilevel degenerative disc disease. Degenerative malalignment. Degenerative malalignment is greatest at the C3-C4 level where C3 is anteriorly subluxed on C4 by 11 mm. In addition to degenerative disc disease with enthesophytes there is facet arthropathy and uncovertebral hypertrophy. No acute fracture perceived. 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 Patient also endorsed lightheadedness and vertigo, these are chronic issues for the patient and are being addressed outpatient. Patient admitted for stroke like symtpoms. Brain CT and Brain MRI demonstrated no evidence of acute ishcemia or infarction. CT-A of both brain and carotids were unremarkable, although CT-A did show degenerative anterolisthesis of C3 on C4 with pronounced bilateral C3-C4 arthropathy. MRI of the neck confirmed these findings. Given the significant anterolisthesis of C3 on C4, [facility] teleneurology thought that it would be best to get a neurosurgical consult for Mr. Cruz as this could be the reason for the patients decrease in functionality. Discussed disposition with patient and he agreed to receive a Neurosurgical consult. [facility] agreed to take patient. Transfer being initiated. 1) Stroke like symptoms Assessment - Brain CT, head and neck CT?A, MRI demonstrate no evidence of acute or subacute infarct or intracranial abnormality - MRI and CT-A of neck demonstrated anterolisthesis of C3 on C4. - [facility] Tele-neurology recommended Neurosurgical consult for the patient - Echocardiogram unremarkable Plan - Patient to be transferred to [facility] for Neurosurgical consult 2) Generalized weakness/debility Assessment - Movement disorder considered inpatient differential diagnosis - PT/OT eval unable to take place due to patient inability to move to the chair - Fall risk assessment 9, high risk Plan - Patient to be transferred to [facility] for Neurosurgical consult 3) CAD s/p stent Assessment -Already on guideline directed medical therapy with aspirin, Plavix, high intensity statin Plan -Continue guideline directed medical therapy 4) Paroxysmal A-Fib Assessment - Not evident on most recent EKG evaluated Plan - Continue to monitor - Aspirin and Plavix continued DVT Prophylaxis - SC Lovenox Patient seen by Lj Kam PA-C, under the supervision of Dr. Sanchez Patient Problems: Active and Suspected Problems (Last Reviewed 09/12/20 @ 00:[address] Saqib Nataraajn MD) Stroke-like symptoms (Acute) Subjective: Patient is an 80-year-old male who is resting comfortably in bed, alert and oriented x3. On my physical examination patient has pain with movement of his upper extremities. Patient also demonstrates weakness with movement of the arms. No focal neural deficits were observed. Patient has sensation down into his lower extremities however continues to have weakness and inability to ambulate. Patient denies fever, chills, chest pain, shortness of breath, N/V/D, palpitations. Objective: Clinical Impression(s) from Imaging Studies Brain CT 09/11/20 21:33 IMPRESSION: No acute intracranial abnormality. Chronic changes as above. ASPECT 10. Individualized dose optimization techniques were used for this CT. at 3379 Reported and signed by: Wilton Najera MD Electronically Signed: Wilton Najera MD at 23:23 EDT Tel , Service support , Chest X-Ray 09/11/20 22:25 IMPRESSION: No acute disease perceived. Slight elevation of the right hemidiaphragm which has progressed since the previous study. Anchoring devices in the left humeral head likely related to rotator cuff repair surgery, lower, elevation of the left humeral head within the left glenoid fossa with pseudoarticulation of the left humeral head with the undersurface of the left acromion suggestive of chronic recurrent full-thickness rotator cuff tear.. at 9998 Reported and signed by: Wilton Najera MD Electronically Signed: Wilton Najera MD at 23:21 EDT Tel , Service support , Brain MRI 09/12/20 01:13 IMPRESSION: 1. 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 Considering his age, this is presumably on a degenerative basis. 2. MRI cervical spine will be very helpful for further evaluation. 3. No MRI evidence of acute or subacute ischemic infarct or acute intracranial abnormality. 4. Chronic white matter ischemic changes in the left posterior periventricular white matter. Electronically Signed: Kevin Argueta MD at 13:56 EDT , Service support , Head/Neck CTA 09/12/20 12:49 IMPRESSION: 1. Negative CT Brain, CTA Carotid, and CTA Brain. 2. 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 MRI cervical spine will be very helpful for further evaluation. Electronically Signed: Kevin Argueta MD at 14:01 EDT , Service support , Cervical Spine X-Ray 09/12/20 20:50 IMPRESSION: Severely limited study due to kyphosis and inability to obtain a frontal image perpendicular to the disc spaces. Unable to visualize all of C7 on the lateral images. Unable to adequately identify the odontoid and its relationship to the lateral masses. Multilevel degenerative disc disease. Degenerative malalignment. Degenerative malalignment is greatest at the C3-C4 level where C3 is anteriorly subluxed on C4 by 11 mm. In addition to degenerative disc disease with enthesophytes there is facet arthropathy and uncovertebral hypertrophy. No acute fracture perceived. 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 Electronically Signed: Ernesto Ahumada, DO at 10:49 EDT Tel , Service support , - Physical Exam Vitals/I&O's: Vital Signs Temp Pulse Resp BP Pulse Ox 98.0 F 74 16 127/57 H 94 09/14/20 08:20 09/14/20 08:20 09/14/20 08:20 09/14/20 08:20 09/14/20 08:20 Oxygen Delivery Method Room Air Weight: 225 lb 8.526 oz Body Mass Index (BMI) 33.3 Intake and Output for Last 24 Hours 09/12/20 09/13/20 09/14/20 23:59 23:59 23:59 Intake Total 1060 / 1060 1080 / 1080 1000 / 1000 Output Total 1800 / 1800 1800 / 1800 300 / 300 Balance -740 / -740 -720 / -720 700 / 700 General: Alert, Oriented x3, Cooperative HEENT: Atraumatic, PERRLA, EOMI, Normocephalic Neck: Supple, No JVD, Negative Carotid Bruits Lungs: Clear to auscultation, Normal air movement Cardiovascular: Regular rate, No murmurs Abdomen: Bowel Sounds Present, Soft, Non Tender Extremities: No edema, Capillary Refill Less than 3 Seconds Skin: No rashes, No breakdown Musculoskeletal: No Tenderness to Palpation of Joints or Extremities Neurological: Unsteady Gait, - - Sensation intact about the upper and lower extremities. Patient has severe weakness about the lower extremities bilaterally. Unable to ambulate. Psych/Mental Status: Normal Affect, Appropriate Current Medications Acetaminophen (Acetaminophen 500 Mg Tablet) 500 mg PO Q4H PRN PRN PRN Reason: Pain 1-10/Fever Last Admin: 09/14/20 10:21 Dose: 500 mg Documented by: Aspirin (Aspirin E.C. 81 Mg Tablet) [facility] Admin: 09/14/20 08:15 Dose: 81 mg Documented by: Atorvastatin Calcium (Atorvastatin Calcium 80 Mg Tablet) 80 mg PO QHS [facility] Last Admin: 09/13/20 21:11 Dose: 80 mg Documented by: Clopidogrel Bisulfate (Clopidogrel Bisulfate 75 Mg Tablet) 75 mg PO DAILY [facility] Last Admin: 09/14/20 10:21 Dose: 75 mg Documented by: Enoxaparin Sodium (Enoxaparin 40 Mg/0.4 Ml Syringe) 40 mg SC DAILY [facility] Last Admin: 09/14/20 10:20 Dose: 40 mg Documented by: Finasteride (Finasteride 5 Mg Tablet) 5 mg PO QODAY [facility] Last Admin: 09/13/20 08:49 Dose: 5 mg Documented by: Hydralazine HCl (Hydralazine 20 Mg/Ml Vial) 5 mg IV Q30M PRN PRN Reason: to maintain BP goals Labetalol HCl (Labetalol (Prefilled) 20 Mg/4 Ml) 10 - 20 mg IV Q10M PRN PRN PRN Reason: to Maintain BP Goals Melatonin (Melatonin 3 Mg Tablet) 3 mg PO QHS [facility] Last Admin: 09/13/20 21:11 Dose: 3 mg Documented by: Nutritional Formula (Lactose Free) (Ensure Enlive 120 Ml Liquid) 120 ml PO 4X/DAY [facility] Last Admin: 09/14/20 10:21 Dose: 120 ml Documented by: Nystatin (Nystatin Powder 15gm Bottle) 1 applic TOPICAL TID [facility]; Protocol Last Admin: 09/14/20 05:18 Dose: Not Given Documented by: Ondansetron HCl (Ondansetron 4 Mg/2 Ml Vial) 4 mg IV Q8H PRN PRN PRN Reason: NAUSEA/VOMITING Pramipexole Dihydrochloride (Pramipexole Di-Hcl 0.125 Mg Tablet) 0.125 mg PO DAILY@2200 [facility] Last Admin: 09/13/20 21:11 Dose: 0.125 mg Documented by: Sodium Chloride (0.9% Saline Lock 10 Ml Syringe) 10 - 40 ml IV UD PRN PRN Reason: SALINE FLUSH Last Admin: 09/14/20 10:22 Dose: 5 ml Documented by: Home Medications: Medications to take at Discharge Aspirin [Adult Low Dose Aspirin EC] 81 mg PO DAILY 01/30/16 finasteride 5 mg tablet 5 mg PO QODAY 07/18/17 acetaminophen 500 mg tablet 500 mg PO Q4H PRN 09/25/18 clopidogrel 75 mg tablet See Rx Instructions .ROUTE .COMPLEX #90 tab 12/21/19 atorvastatin 80 mg tablet 80 mg PO QHS #90 tab 04/05/20 Melatonin/Pyridoxine HCl (B6) [Melatonin 3 mg Tablet] 3 mg PO QHS 09/11/20 Pramipexole Di-HCl [Mirapex] 0.125 mg PO DAILY 09/11/20 Primary Care Physician: Donte Wang MD [Primary Care Provider] - Disposition: Acute care Hospital Minutes spent on discharge:: 35 Patient Condition:: Stable Medical Necessity - Tobacco Use Smoking Status: Former smoker
[2020-09-14] MEDS: Nystatin Powder 15gm Bottle 1 APPLIC TOPICAL ×2 (14:52→21:38)
--- NOTE | 2020-09-14 15:15 | PCM.PN.HOSP ---
<Lj Kam - Last Filed: 09/14/20 15:15> Patient Problems: Active and Suspected Problems (Last Reviewed 09/12/20 @ 00:[address] Saqib Natarajan MD) Stroke-like symptoms (Acute) Subjective: Patient is a pleasant 80-year-old male who is resting comfortably in bed, alert and oriented x3. Patient observed to be slightly tremulous while trying to conduct activities. Tremor not apparent at rest. Denies chest pain, palpitations, shortness of breath, fever, N/V/D. Objective: Clinical Impression(s) from Imaging Studies Brain CT 09/11/20 21:33 IMPRESSION: No acute intracranial abnormality. Chronic changes as above. ASPECT 10. Individualized dose optimization techniques were used for this CT. at 2325 Reported and signed by: Wilton Najera MD Electronically Signed: Wilton Najera MD at 23:23 EDT Tel , Service support , Chest X-Ray 09/11/20 22:25 IMPRESSION: No acute disease perceived. Slight elevation of the right hemidiaphragm which has progressed since the previous study. Anchoring devices in the left humeral head likely related to rotator cuff repair surgery, lower, elevation of the left humeral head within the left glenoid fossa with pseudoarticulation of the left humeral head with the undersurface of the left acromion suggestive of chronic recurrent full-thickness rotator cuff tear.. at 2322 Reported and signed by: Wilton Najera MD Electronically Signed: Wilton Najera MD at 23:21 EDT Tel , Service support , Brain MRI 09/12/20 01:13 IMPRESSION: 1. 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 Considering his age, this is presumably on a degenerative basis. 2. MRI cervical spine will be very helpful for further evaluation. 3. No MRI evidence of acute or subacute ischemic infarct or acute intracranial abnormality. 4. Chronic white matter ischemic changes in the left posterior periventricular white matter. Electronically Signed: Kevin Argueta MD at 13:56 EDT , Service support , Head/Neck CTA 09/12/20 12:49 IMPRESSION: 1. Negative CT Brain, CTA Carotid, and CTA Brain. 2. 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 MRI cervical spine will be very helpful for further evaluation. Electronically Signed: Kevin Argueta MD at 14:01 EDT , Service support , Cervical Spine X-Ray 09/12/20 20:50 IMPRESSION: Severely limited study due to kyphosis and inability to obtain a frontal image perpendicular to the disc spaces. Unable to visualize all of C7 on the lateral images. Unable to adequately identify the odontoid and its relationship to the lateral masses. Multilevel degenerative disc disease. Degenerative malalignment. Degenerative malalignment is greatest at the C3-C4 level where C3 is anteriorly subluxed on C4 by 11 mm. In addition to degenerative disc disease with enthesophytes there is facet arthropathy and uncovertebral hypertrophy. No acute fracture perceived. 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 Electronically Signed: Ernesto Ahumada DO at 10:49 EDT Tel , Service support , Vitals/I&O's: Vital Signs Temp Pulse Resp BP Pulse Ox 99.2 F H 68 16 110/51 L 95 09/14/20 14:15 09/14/20 14:15 09/14/20 14:15 09/14/20 14:15 09/14/20 14:15 Oxygen Delivery Method Room Air Weight: 225 lb 8.526 oz Body Mass Index (BMI) 33.3 Intake and Output for Last 24 Hours 09/12/20 09/13/20 09/14/20 23:59 23:59 23:59 Intake Total 1060 / 1060 1080 / 1080 1000 / 1000 Output Total 1800 / 1800 1800 / 1800 300 / 300 Balance -740 / -740 -720 / -720 700 / 700 General: Alert, Oriented x3, Cooperative HEENT: Atraumatic, PERRLA, EOMI, Normocephalic Neck: Supple, No JVD, Negative Carotid Bruits Lungs: Clear to auscultation, Normal air movement Cardiovascular: Regular rate, No murmurs Abdomen: Bowel Sounds Present, Soft, Non Tender Extremities: No edema, Capillary Refill Less than 3 Seconds Skin: No rashes, No breakdown Musculoskeletal: No Tenderness to Palpation of Joints or Extremities Neurological: - - Severe weakness of both lower extremities Current Medications Acetaminophen (Acetaminophen 500 Mg Tablet) 500 mg PO Q4H PRN PRN PRN Reason: Pain 1-10/Fever Last Admin: 09/14/20 14:58 Dose: 500 mg Documented by: Aspirin (Aspirin E.C. 81 Mg Tablet) [facility] Last Admin: 09/14/20 08:15 Dose: 81 mg Documented by: Atorvastatin Calcium (Atorvastatin Calcium 80 Mg Tablet) 80 mg PO QHS [facility] Last Admin: 09/13/20 21:11 Dose: 80 mg Documented by: Clopidogrel Bisulfate (Clopidogrel Bisulfate 75 Mg Tablet) 75 mg PO DAILY [facility] Last Admin: 09/14/20 10:21 Dose: 75 mg Documented by: Enoxaparin Sodium (Enoxaparin 40 Mg/0.4 Ml Syringe) 40 mg SC DAILY [facility] Last Admin: 09/14/20 10:20 Dose: 40 mg Documented by: Finasteride (Finasteride 5 Mg Tablet) 5 mg PO QODAY [facility] Last Admin: 09/13/20 08:49 Dose: 5 mg Documented by: Hydralazine HCl (Hydralazine 20 Mg/Ml Vial) 5 mg IV Q30M PRN PRN Reason: to maintain BP goals Labetalol HCl (Labetalol (Prefilled) 20 Mg/4 Ml) 10 - 20 mg IV Q10M PRN PRN PRN Reason: to Maintain BP Goals Melatonin (Melatonin 3 Mg Tablet) 3 mg PO QHS [facility] Last Admin: 09/13/20 21:11 Dose: 3 mg Documented by: Nutritional Formula (Lactose Free) (Ensure Enlive 120 Ml Liquid) 120 ml PO 4X/DAY [facility] Last Admin: 09/14/20 14:53 Dose: 120 ml Documented by: Nystatin (Nystatin Powder 15gm Bottle) 1 applic TOPICAL TID [facility]; Protocol Last Admin: 09/14/20 14:52 Dose: 1 dose Documented by: Ondansetron HCl (Ondansetron 4 Mg/2 Ml Vial) 4 mg IV Q8H PRN PRN PRN Reason: NAUSEA/VOMITING Pramipexole Dihydrochloride (Pramipexole Di-Hcl 0.125 Mg Tablet) 0.125 mg PO DAILY@2200 [facility] Last Admin: 09/13/20 21:11 Dose: 0.125 mg Documented by: Sodium Chloride (0.9% Saline Lock 10 Ml Syringe) 10 - 40 ml IV UD PRN PRN Reason: SALINE FLUSH Last Admin: 09/14/20 10:22 Dose: 5 ml Documented by: STROKE Vital Signs/Narrative: Vital Signs Temp Pulse Resp BP Pulse Ox 09/14/20 14:15 99.2 F H 68 16 110/51 L 95 09/14/20 14:00 68 16 95 Medical Necessity - Tobacco Use Smoking Status: Former smoker Assessment/Plan All Active Problems (Last Reviewed 09/12/20 @ 00:[address] Saqib Natarajan MD) Stroke-like symptoms (Acute) Patient is an 80-year-old male who presented to the ED on 09/12/2020 with an inability to ambulate. Patient also endorsed lightheadedness and vertigo, these are chronic issues for the patient and are being addressed outpatient. Patient admitted for stroke like symtpoms. Brain CT and Brain MRI demonstrated no evidence of acute ishcemia or infarction. CT-A of both brain and carotids were unremarkable, although CT-A did show degenerative anterolisthesis of C3 on C4 with pronounced bilateral C3-C4 arthropathy. MRI of the neck confirmed these findings. Given the significant anterolisthesis of C3 on C4, [facility] teleneurology thought that it would be best to get a neurosurgical consult for Mr. Cruz as this could be the reason for the patients decrease in functionality. Discussed disposition with patient and he agreed to receive a Neurosurgical consult. [facility] agreed to take patient. Awaiting on bed availability at [facility]. 1) Stroke like symptoms Assessment - Brain CT, head and neck CT?A, MRI demonstrate no evidence of acute or subacute infarct or intracranial abnormality - MRI and CT-A of neck demonstrated anterolisthesis of C3 on C4. - [facility] Tele-neurology recommended Neurosurgical consult for the patient - Echocardiogram unremarkable Plan - Patient to be transferred to [facility] for Neurosurgical consult 2) Generalized weakness/debility Assessment - Movement disorder considered inpatient differential diagnosis - PT/OT eval unable to take place due to patient inability to move to the chair - Fall risk assessment 9, high risk Plan - Patient to be transferred to [facility] for Neurosurgical consult 3) CAD s/p stent Assessment -Already on guideline directed medical therapy with aspirin, Plavix, high intensity statin Plan -Continue guideline directed medical therapy 4) Paroxysmal A-Fib Assessment - Not evident on most recent EKG evaluated Plan -Continue to monitor - Aspirin and Plavix continued DVT Prophylaxis - CA Lovenox Patient seen by Lj Kma PA-C, under the supervision of Dr. Sanchez <Gerri Sanchez - Last Filed: 09/15/20 16:41> Vitals/I&O's: Vital Signs Temp Pulse Resp BP Pulse Ox 97.4 F L 65 14 124/81 H 98 09/15/20 16:35 09/15/20 16:35 09/15/20 16:35 09/15/20 16:35 09/15/20 16:35 Oxygen Delivery Method Room Air Weight: 225 lb 8.526 oz Body Mass Index (BMI) 33.3 Intake and Output for Last 24 Hours 09/13/20 09/14/20 09/15/20 23:59 23:59 23:59 Intake Total 1080 / 1080 1640 / 1640 650 / 650 Output Total 1800 / 1800 1300 / 1300 1000 / 1000 Balance -720 / -720 340 / 340 -350 / -350 Current Medications Acetaminophen (Acetaminophen 500 Mg Tablet) 500 mg PO Q4H PRN PRN PRN Reason: Pain 1-10/Fever Last Admin: 09/15/20 08:20 Dose: 500 mg Documented by: Aspirin (Aspirin E.C. 81 Mg Tablet) 81 mg PO DAILYCM [facility] Last Admin: 09/15/20 11:10 Dose: 81 mg Documented by: Atorvastatin Calcium (Atorvastatin Calcium 80 Mg Tablet) 80 mg PO QHS [facility] Last Admin: 09/14/20 21:38 Dose: 80 mg Documented by: Clopidogrel Bisulfate (Clopidogrel Bisulfate 75 Mg Tablet) 75 mg PO DAILY [facility] Last Admin: 09/15/20 11:10 Dose: 75 mg Documented by: Enoxaparin Sodium (Enoxaparin 40 Mg/0.4 Ml Syringe) 40 mg SC DAILY [facility] Last Admin: 09/15/20 11:10 Dose: 40 mg Documented by: Finasteride (Finasteride 5 Mg Tablet) 5 mg PO QODAY [facility] Last Admin: 09/15/20 11:11 Dose: 5 mg Documented by: Hydralazine HCl (Hydralazine 20 Mg/Ml Vial) 5 mg IV Q30M PRN PRN Reason: to maintain BP goals Labetalol HCl (Labetalol (Prefilled) 20 Mg/4 Ml) 10 - 20 mg IV Q10M PRN PRN PRN Reason: to Maintain BP Goals Melatonin (Melatonin 3 Mg Tablet) 3 mg PO QHS [facility] Last Admin: 09/14/20 21:38 Dose: 3 mg Documented by: Nutritional Formula (Lactose Free) (Ensure Enlive 120 Ml Liquid) 120 ml PO 4X/DAY [facility] Last Admin: 09/15/20 13:31 Dose: Not Given Documented by: Nystatin (Nystatin Powder 15gm Bottle) 1 applic TOPICAL TID [facility]; Protocol Last Admin: 09/15/20 13:32 Dose: 1 dose Documented by: Ondansetron HCl (Ondansetron 4 Mg/2 Ml Vial) 4 mg IV Q8H PRN PRN PRN Reason: NAUSEA/VOMITING Pramipexole Dihydrochloride (Pramipexole Di-Hcl 0.125 Mg Tablet) 0.125 mg PO DAILY@2200 [facility] Last Admin: 09/14/20 21:38 Dose: 0.125 mg Documented by: Sodium Chloride (0.9% Saline Lock 10 Ml Syringe) 10 - 40 ml IV UD PRN PRN Reason: SALINE FLUSH Last Admin: 09/14/20 10:22 Dose: 5 ml Documented by: STROKE Vital Signs/Narrative: Vital Signs Temp Pulse Resp BP Pulse Ox 09/15/20 16:35 97.4 F L 65 14 124/81 H 98 09/15/20 15:50 58 L 09/15/20 14:00 100 09/15/20 13:39 97.2 F L 62 12 124/67 H 100 Assessment/Plan Patient seen and examined. He had no complaints and still complained of weakness. He was supposed to be transferred to [facility] on 09/13/2020 on account of cervical MRI findings of severe central canal and severe multilevel neural neuroforaminal narrowing and cervical lordosis reversal with osteoarthritis based on MRI of the cervical spine. He is still awaiting a bed He has no complaints , though he still feels weak. He is a bit apprehensive about the transfer because he may need surgery. Review of systems otherwise negative. He has remained hemodynamically stable. O/E: Vital Signs Temp Pulse Resp BP Pulse Ox 99.2 F H 68 16 110/51 L 95 09/14/20 14:15 09/14/20 14:15 09/14/20 14:15 09/14/20 14:15 09/14/20 14:15 General: Alert, Oriented x3, Cooperative HEENT: Atraumatic, PERRLA, EOMI, Normocephalic Neck: Supple, No JVD, Negative Carotid Bruits Lungs: Clear to auscultation, Normal air movement Cardiovascular: Regular rate, No murmurs Abdomen: Bowel Sounds Present, Soft, Non Tender Extremities: No edema, Capillary Refill Less than 3 Seconds Skin: No rashes, No breakdown Musculoskeletal: No Tenderness to Palpation of Joints or Extremities Neurological: Cranial nerves II-XII grossly intact Psych/Mental Status: Normal Affect, Appropriate CT of the cervical spine MRI is as above. PT/OT on board. Fall precautions. Neurology on board and recommended that patient be transferred o/a of cervical spine MRI findings neurosurgery evaluation. Patient to be transferred to [facility] when bed is available. Rest as per Lj Kam's note, which I have reviewed and endorsed. Inpatient E&M: 22419 Subs Hosp L2
--- NOTE | 2020-09-14 15:30 | CASEMGMT ---
Per [facility] palliative screening tool, pt does not meet criteria for a palliative referral. SStmason DRUMMOND CM
[2020-09-14] MEDS: Pramipexole Di-HCl 0.125 MG Tablet PO (21:38)
[2020-09-14] MEDS: MELATONIN 3 MG TABLET PO (21:38)
[2020-09-14] MEDS: Atorvastatin Calcium 80 MG Tablet PO (21:38)
[2020-09-15] VITALS (12 sets, daily range): BP systolic 107–124; BP diastolic 54–81; PULSE 51–69; RESP 12–18; TEMP 36.2–36.8; O2SAT 95–100
[2020-09-15] MEDS: Nystatin Powder 15gm Bottle 1 APPLIC TOPICAL ×2 (06:42→13:32)
[2020-09-15] MEDS: Acetaminophen 500 MG Tablet PO ×3 (08:20→22:08)
[2020-09-15] MEDS: Clopidogrel Bisulfate 75 MG Tablet PO (11:10)
[2020-09-15] MEDS: Enoxaparin 40 MG/0.4 ML Syringe SC (11:10)
[2020-09-15] MEDS: Aspirin E.C. 81 MG Tablet PO (11:10)
[2020-09-15] MEDS: Finasteride 5 MG Tablet PO (11:11)
--- NOTE | 2020-09-15 12:47 | PN_ITS ---
<MelitonNai LICENSED DIRECT ENTRY MIDWIFE - Last Filed: 09/15/20 13:00> Patient Problems: Active and Suspected Problems (Last Reviewed 09/12/20 @ 00:[address] Saqib wilkerson MD) Stroke-like symptoms (Acute) Subjective: Patient seen and examined. Denies new neurologic symptoms or focal deficits. Awaiting bed at [facility] for neurosurgery consult. - Physical Exam Vitals/I&O's: Vital Signs Temp Pulse Resp BP Pulse Ox 98.2 F 51 L 12 107/54 L 95 09/15/20 07:42 09/15/20 12:08 09/15/20 07:42 09/15/20 07:42 09/15/20 07:42 Oxygen Delivery Method Room Air Weight: 225 lb 8.526 oz Body Mass Index (BMI) 33.3 Intake and Output for Last 24 Hours 09/13/20 09/14/20 09/15/20 23:59 23:59 23:59 Intake Total 1080 / 1080 1640 / 1640 650 / 650 Output Total 1800 / 1800 1300 / 1300 1000 / 1000 Balance -720 / -720 340 / 340 -350 / -350 General: Alert, Oriented x3, Cooperative HEENT: Atraumatic, PERRLA, EOMI, Normocephalic Neck: Supple, No JVD, Negative Carotid Bruits Lungs: Clear to auscultation, Normal air movement Cardiovascular: Regular rate, No murmurs Abdomen: Bowel Sounds Present, Soft, Non Tender, Non-Distended Extremities: No clubbing, No cyanosis, No edema, Capillary Refill Less than 3 Seconds Skin: No rashes, No breakdown Musculoskeletal: No Tenderness to Palpation of Joints or Extremities Neurological: Cranial nerves II-XII grossly intact, Neuro grossly intact Psych/Mental Status: Normal Affect, Appropriate Current Medications Acetaminophen (Acetaminophen 500 Mg Tablet) 500 mg PO Q4H PRN PRN PRN Reason: Pain 1-10/Fever Last Admin: 09/15/20 08:20 Dose: 500 mg Documented by: Aspirin (A[facility]in E.C. 81 Mg Tablet) [facility] Last Admin: 09/15/20 11:10 Dose: 81 mg Documented by: Atorvastatin Calcium (Atorvastatin Calcium 80 Mg Tablet) 80 mg PO QHS [facility] Last Admin: 09/14/20 21:38 Dose: 80 mg Documented by: Clopidogrel Bisulfate (Clopidogrel Bisulfate 75 Mg Tablet) 75 mg PO DAILY [facility] Last Admin: 09/15/20 11:10 Dose: 75 mg Documented by: Enoxaparin Sodium (Enoxaparin 40 Mg/0.4 Ml Syringe) 40 mg SC DAILY [facility] Last Admin: 09/15/20 11:10 Dose: 40 mg Documented by: Finasteride (Finasteride 5 Mg Tablet) 5 mg PO QODAY [facility] Last Admin: 09/15/20 11:11 Dose: 5 mg Documented by: Hydralazine HCl (Hydralazine 20 Mg/Ml Vial) 5 mg IV Q30M PRN PRN Reason: to maintain BP goals Labetalol HCl (Labetalol (Prefilled) 20 Mg/4 Ml) 10 - 20 mg IV Q10M PRN PRN PRN Reason: to Maintain BP Goals Melatonin (Melatonin 3 Mg Tablet) 3 mg PO QHS [facility] Last Admin: 09/14/20 21:38 Dose: 3 mg Documented by: Nutritional Formula (Lactose Free) (Ensure Enlive 120 Ml Liquid) 120 ml PO 4X/DAY [facility] Last Admin: 09/15/20 11:10 Dose: 120 ml Documented by: Nystatin (Nystatin Powder 15gm Bottle) 1 applic TOPICAL TID [facility]; Protocol Last Admin: 09/15/20 06:42 Dose: 1 dose Documented by: Ondansetron HCl (Ondansetron 4 Mg/2 Ml Vial) 4 mg IV Q8H PRN PRN PRN Reason: NAUSEA/VOMITING Pramipexole Dihydrochloride (Pramipexole Di-Hcl 0.125 Mg Tablet) 0.125 mg PO DAILY@2200 [facility] Last Admin: 09/14/20 21:38 Dose: 0.125 mg Documented by: Sodium Chloride (0.9% Saline Lock 10 Ml Syringe) 10 - 40 ml IV UD PRN PRN Reason: SALINE FLUSH Last Admin: 09/14/20 10:22 Dose: 5 ml Documented by: Medical Necessity - Tobacco Use Smoking Status: Former smoker Assessment/Plan All Active Problems (Last Reviewed 09/12/20 @ 00:[address] Saqib Natarajan MD) Stroke-like symptoms (Acute) 1. Cervical myelopathy-cervical MRI shows multilevel moderate to severe neuroforaminal narrowing at C3-C4, C4-C5, C5-C6. Transfer to [facility] for neurosurgery evaluation pending bed availability. 2. Weakness, lightheadedness, vertigo-CVA ruled out. Cervical MRI per above. Echocardiogram unremarkable. Plan for transfer as noted above. 3. CAD with history of stent-on aspirin, Plavix, statin. 4. Paroxysmal atrial fibrillation-not on anticoagulation. 5. BPH-on finasteride. DVT prophylaxis- Lovenox ak This patient was seen by PALMA Cruz under the supervision of Dr. Sanchez. <Gerri Sanchez - Last Filed: 09/15/20 16:44> - Physical Exam Vitals/I&O's: Vital Signs Temp Pulse Resp BP Pulse Ox 97.4 F L 65 14 124/81 H 98 09/15/20 16:35 09/15/20 16:35 09/15/20 16:35 09/15/20 16:35 09/15/20 16:35 Oxygen Delivery Method Room Air Weight: 225 lb 8.526 oz Body Mass Index (BMI) 33.3 Intake and Output for Last 24 Hours 09/13/20 09/14/20 09/15/20 23:59 23:59 23:59 Intake Total 1080 / 1080 1640 / 1640 650 / 650 Output Total 1800 / 1800 1300 / 1300 1000 / 1000 Balance -720 / -720 340 / 340 -350 / -350 Current Medications Acetaminophen (Acetaminophen 500 Mg Tablet) 500 mg PO Q4H PRN PRN PRN Reason: Pain 1-10/Fever Last Admin: 09/15/20 08:20 Dose: 500 mg Documented by: Aspirin (Aspirin E.C. 81 Mg Tablet) [facility] Last Admin: 09/15/20 11:10 Dose: 81 mg Documented by: Atorvastatin Calcium (Atorvastatin Calcium 80 Mg Tablet) 80 mg PO QHS [facility] Last Admin: 09/14/20 21:38 Dose: 80 mg Documented by: Clopidogrel Bisulfate (Clopidogrel Bisulfate 75 Mg Tablet) 75 mg PO DAILY [facility] Last Admin: 09/15/20 11:10 Dose: 75 mg Documented by: Enoxaparin Sodium (Enoxaparin 40 Mg/0.4 Ml Syringe) 40 mg SC DAILY [facility] Last Admin: 09/15/20 11:10 Dose: 40 mg Documented by: Finasteride (Finasteride 5 Mg Tablet) 5 mg PO QODAY [facility] Last Admin: 09/15/20 11:11 Dose: 5 mg Documented by: Hydralazine HCl (Hydralazine 20 Mg/Ml Vial) 5 mg IV Q30M PRN PRN Reason: to maintain BP goals Labetalol HCl (Labetalol (Prefilled) 20 Mg/4 Ml) 10 - 20 mg IV Q10M PRN PRN PRN Reason: to Maintain BP Goals Melatonin (Melatonin 3 Mg Tablet) 3 mg PO QHS [facility] Last Admin: 09/14/20 21:38 Dose: 3 mg Documented by: Nutritional Formula (Lactose Free) (Ensure Enlive 120 Ml Liquid) 120 ml PO 4X/DAY [facility] Last Admin: 09/15/20 13:31 Dose: Not Given Documented by: Nystatin (Nystatin Powder 15gm Bottle) 1 applic TOPICAL TID [facility]; Protocol Last Admin: 09/15/20 13:32 Dose: 1 dose Documented by: Ondansetron HCl (Ondansetron 4 Mg/2 Ml Vial) 4 mg IV Q8H PRN PRN PRN Reason: NAUSEA/VOMITING Pramipexole Dihydrochloride (Pramipexole Di-Hcl 0.125 Mg Tablet) 0.125 mg PO DAILY@2200 [facility] Last Admin: 09/14/20 21:38 Dose: 0.125 mg Documented by: Sodium Chloride (0.9% Saline Lock 10 Ml Syringe) 10 - 40 ml IV UD PRN PRN Reason: SALINE FLUSH Last Admin: 09/14/20 10:22 Dose: 5 ml Documented by: Assessment/Plan Patient seen by Nai WALDROP under my supervision Patient seen and examined. He had no complaints, He is awaiting transfer to [facility] for neurosurgery evaluation. He has no complaints , though he still feels weak. He was working with physical therapy at time of review. Review of systems is otherwise negative. O/E: Vital Signs Temp Pulse Resp BP Pulse Ox 99.2 F H 68 16 110/51 L 95 09/14/20 14:15 09/14/20 14:15 09/14/20 14:15 09/14/20 14:15 09/14/20 14:15 General: Alert, Oriented x3, Cooperative HEENT: Atraumatic, PERRLA, EOMI, Normocephalic Neck: Supple, No JVD, Negative Carotid Bruits Lungs: Clear to auscultation, Normal air movement Cardiovascular: Regular rate, No murmurs Abdomen: Bowel Sounds Present, Soft, Non Tender Extremities: No edema, Capillary Refill Less than 3 Seconds Skin: No rashes, No breakdown Musculoskeletal: No Tenderness to Palpation of Joints or Extremities Neurological: Cranial nerves II-XII grossly intact Psych/Mental Status: Normal Affect, Appropriate CT of the cervical spine MRI is as above. PT/OT on board. Fall precautions. Neurology on board and recommended that patient be transferred o/a of cervical spine MRI findings neurosurgery evaluation. Patient to be transferred to [facility] when bed is available. Rest as per Nai Coelho LICENSED DIRECT ENTRY MIDWIFE-C's note, which I have reviewed and endorsed. Inpatient E&M: 11713 Subs Hosp L2
--- NOTE | 2020-09-15 17:57 | NURSING ---
This RN taking over care at this time
[2020-09-15] MEDS: Pramipexole Di-HCl 0.125 MG Tablet PO (22:08)
[2020-09-15] MEDS: Atorvastatin Calcium 80 MG Tablet PO (22:08)
[2020-09-15] MEDS: MELATONIN 3 MG TABLET PO (22:08)
--- NOTE | 2020-09-16 02:16 | NURSING ---
Pt has bed available at [facility]. RN notified pt. Pt stated he would let his daughter know. Report called to HODA Zimmer at [facility].
[2020-09-16] MEDS: Acetaminophen 500 MG Tablet PO (02:20)
[2020-09-16 03:00] VITALS: PULSE 67
[2020-09-16 03:34] VITALS: BP 127/54; PULSE 59; RESP 18; TEMP 36.5; O2SAT 95
--- NOTE | 2020-09-16 03:57 | NURSING ---
RN updated daughter, Arti, of patient leaving at this time for [facility]. RN gave daughter pt bed information and telephone number to the floor.
--- NOTE | 2020-09-16 08:12 | PCM.DC.SUM ---
<Nai Coelho [employer]NA[employer] - Last Filed: 09/16/20 08:15> Discharge Date and Diagnosis - Problem List Patient Problems: Active and Suspected Problems (Last Reviewed 09/12/20 @ 00:[address] Saqib Natarajan MD) Stroke-like symptoms (Acute) Date of Admission: 09/12/20 Date of Discharge: 09/16/20 - Primary Discharge Diagnosis Acute Problems: Active Problems (Last Reviewed 09/12/20 @ 00:[address] Saqib Natarajan MD) 1. Cervical myelopathy 2. Weakness, lightheadedness, vertigo-CVA ruled out. 3. CAD with history of stent 4. Paroxysmal atrial fibrillation 5. BPH - Secondary Discharge Diagnosis Chronic Problems: Chronic Problems (Last Reviewed 09/12/20 @ 00:[address] Saqib Natarajan MD) CAD (coronary artery disease) (Chronic) Leg swelling (Chronic) PAD (peripheral artery disease) (Chronic) longterm use of drug (Chronic) Antithrombotics/antiplatelets Hyperlipidemia (Chronic) Hypertension (Chronic) S/P coronary artery stent placement (Chronic) PCI- XU- Prox RCA, Prox-Mid RCA and RPLB (Synergy Stents) 01/11/16 @ [facility] Old myocardial infarction (Chronic) Atherosclerotic heart disease of [place] coronary artery without angina pectoris (Chronic) PCI- XU- Prox RCA, Prox-Mid RCA and RPLB (Synergy Stents) 01/11/16 @ [facility] Paroxysmal atrial fibrillation (Chronic) Dilated aortic root (Chronic) Hospital Course and Treatment Imaging Results: Diagnostic Data Brain CT 09/11/20 21:33 IMPRESSION: No acute intracranial abnormality. Chronic changes as above. ASPECT 10. Individualized dose optimization techniques were used for this CT. at 2325 Reported and signed by: Wilton Najera MD Electronically Signed: Wilton Najera MD at 23:23 EDT Tel , Service support , Chest X-Ray 09/11/20 22:25 IMPRESSION: No acute disease perceived. Slight elevation of the right hemidiaphragm which has progressed since the previous study. Anchoring devices in the left humeral head likely related to rotator cuff repair surgery, lower, elevation of the left humeral head within the left glenoid fossa with pseudoarticulation of the left humeral head with the undersurface of the left acromion suggestive of chronic recurrent full-thickness rotator cuff tear.. at 2322 Reported and signed by: Wilton Najera MD Electronically Signed: Wilton Najera MD at 23:21 EDT Tel , Service support , Brain MRI 09/12/20 01:13 IMPRESSION: 1. 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 Considering his age, this is presumably on a degenerative basis. 2. MRI cervical spine will be very helpful for further evaluation. 3. No MRI evidence of acute or subacute ischemic infarct or acute intracranial abnormality. 4. Chronic white matter ischemic changes in the left posterior periventricular white matter. Electronically Signed: Kevin Argueta MD at 13:56 EDT , Service support , Head/Neck CTA 09/12/20 12:49 IMPRESSION: 1. Negative CT Brain, CTA Carotid, and CTA Brain. 2. 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 MRI cervical spine will be very helpful for further evaluation. Electronically Signed: Kevin Argueta MD at 14:01 EDT , Service support , Cervical Spine X-Ray 09/12/20 20:50 IMPRESSION: Severely limited study due to kyphosis and inability to obtain a frontal image perpendicular to the disc spaces. Unable to visualize all of C7 on the lateral images. Unable to adequately identify the odontoid and its relationship to the lateral masses. Multilevel degenerative disc disease. Degenerative malalignment. Degenerative malalignment is greatest at the C3-C4 level where C3 is anteriorly subluxed on C4 by 11 mm. In addition to degenerative disc disease with enthesophytes there is facet arthropathy and uncovertebral hypertrophy. No acute fracture perceived. at 2247 Reported and signed by: Wilton Najera MD Electronically Signed: Wilotn Najera MD at 22:45 EDT Tel , Service support , Cervical Spine MRI 09/13/20 05:55 IMPRESSION: No abnormal cord signal Multilevel intervertebral disc disease with severe central canal narrowing at C3-4 Multilevel moderate/severe neural foraminal narrowing at C3-4, C4-5 and C5-6 Cervical lordosis reversal with osteoarthritis predominating at C3-4 Electronically Signed: Ernesto Ahumada DO at 10:49 EDT Tel , Service support , SOC neurology Operations: None Procedures: 2-D Echocardiogram Summary of Care Provided: The patient is a 80 year old M admitted 09/12/2020 due to difficulty ambulating. 1. Cervical myelopathy-cervical MRI shows multilevel moderate to severe neuroforaminal narrowing at C3-C4, C4-C5, C5-C6. Transfer to [facility] for neurosurgery evaluation per neurology recommendations. 2. Weakness, lightheadedness, vertigo-CVA ruled out. Cervical MRI per above. Echocardiogram demonstrated an EF of 65%, stage I diastolic dysfunction, mild to moderately dilated aortic root. 3. CAD with history of stent-on aspirin, Plavix, statin. 4. Paroxysmal atrial fibrillation-not on anticoagulation. 5. BPH-on finasteride. General: Alert, Oriented x3, Cooperative HEENT: Atraumatic, PERRLA, EOMI, Normocephalic Neck: Supple, No JVD, Negative Carotid Bruits Lungs: Clear to auscultation, Normal air movement Cardiovascular: Regular rate, No murmurs Abdomen: Bowel Sounds Present, Soft, Non Tender, Non-Distended Extremities: No clubbing, No cyanosis, No edema, Capillary Refill Less than 3 Seconds Skin: No rashes, No breakdown Musculoskeletal: No Tenderness to Palpation of Joints or Extremities Neurological: Cranial nerves II-XII grossly intact, Neuro grossly intact Psych/Mental Status: Normal Affect, Appropriate This patient was seen by PALMA Cruz under the supervision of Dr. Sanchez. Patient Problems: Active and Suspected Problems (Last Reviewed 09/12/20 @ 00:[address] Saqib Natarajan MD) Stroke-like symptoms (Acute) - Physical Exam Vitals/I&O's: Vital Signs Temp Pulse Resp BP Pulse Ox 97.7 F L 59 L 18 127/54 H 95 09/16/20 03:34 09/16/20 03:34 09/16/20 03:34 09/16/20 03:34 09/16/20 03:34 Oxygen Delivery Method Room Air Weight: 225 lb 8.526 oz Body Mass Index (BMI) 33.3 Intake and Output for Last 24 Hours 09/14/20 09/15/20 09/16/20 23:59 23:59 23:59 Intake Total 1640 / 1640 1100 / 1100 50 / 50 Output Total 1300 / 1300 1000 / 1000 450 / 450 Balance 340 / 340 100 / 100 -400 / -400 Home Medications: Medications to take at Discharge Aspirin [Adult Low Dose Aspirin EC] 81 mg PO DAILY 01/30/16 finasteride 5 mg tablet 5 mg PO QODAY 07/18/17 acetaminophen 500 mg tablet 500 mg PO Q4H PRN 09/25/18 clopidogrel 75 mg tablet See Rx Instructions .ROUTE .COMPLEX #90 tab 12/21/19 atorvastatin 80 mg tablet 80 mg PO QHS #90 tab 04/05/20 Melatonin/Pyridoxine HCl (B6) [Melatonin 3 mg Tablet] 3 mg PO QHS 09/11/20 Pramipexole Di-HCl [Mirapex] 0.125 mg PO DAILY 09/11/20 Primary Care Physician: Donte Wang MD [Primary Care Provider] - Disposition: Acute care Hospital Minutes spent on discharge:: 35 Patient Condition:: Stable Medical Necessity - Tobacco Use Smoking Status: Former smoker Meaningful Use Info Meaningful Use Diagnoses (Choose all that apply): None applicable <Gerri Sanchez - Last Filed: 09/16/20 21:12> Discharge Date and Diagnosis Date of Discharge: 09/15/20 - Primary Discharge Diagnosis Acute Problems: Active Problems (Last Reviewed 09/12/20 @ 00:[address] Saqib Natarajan MD) Stroke-like symptoms (Acute) - Secondary Discharge Diagnosis Chronic Problems: Chronic Problems (Last Reviewed 09/12/20 @ 00:[address] 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) Antithrombotics/antiplatelets Hyperlipidemia (Chronic) Hypertension (Chronic) S/P coronary artery stent placement (Chronic) PCI- XU- Prox RCA, Prox-Mid RCA and RPLB (Synergy Stents) 01/11/16 @ [facility] Old myocardial infarction (Chronic) Atherosclerotic heart disease of [place] coronary artery without angina pectoris (Chronic) PCI- XU- Prox RCA, Prox-Mid RCA and RPLB (Synergy Stents) 01/11/16 @ [facility] Paroxysmal atrial fibrillation (Chronic) Dilated aortic root (Chronic) Hospital Course and Treatment Summary of Care Provided: Patient seen by Nai WALDROP under my supervision The patient is a 80 year old M who was admitted with a complaint of worsening weakness and debility. His PCP had concerns about possible multiple sclerosis. Stroke was ruled out with a negative brain MRI. 2D echo done showed EF of 65%, with stage 1 diastolic dysfunction and mild to moderately dilated aortic root. Neurosurgery was consulted and recommended a cervical spine MRI which showed multilevel neuroforaminal narrowing at C3-4, C4-5, C5-6. Neurology recommended transfer to a tertiary center for evaluation by neurosurgery. Patient was agreeable to surgery if needed, and so was transferred to [facility] on 09.15.2020. Patient was seen and examined prior to discharge. He had no complaints and felt well. He was working well with physical therapy.Review of systems otherwise negative. Labs and vitals reviewed. Home medications reviewed and reconciled. O/E: Vital Signs Temp Pulse Resp BP Pulse Ox 97.7 F L 59 L 18 127/54 H 95 09/16/20 03:34 09/16/20 03:34 09/16/20 03:34 09/16/20 03:34 09/16/20 03:34 [] General: Alert, Oriented x3, Cooperative HEENT: Atraumatic, PERRLA, EOMI, Normocephalic Neck: Supple, No JVD, Negative Carotid Bruits Lungs: Clear to auscultation, Normal air movement Cardiovascular: Regular rate, No murmurs Abdomen: Bowel Sounds Present, Soft, Non Tender Extremities: No edema, Capillary Refill Less than 3 Seconds Skin: No rashes, No breakdown Musculoskeletal: No Tenderness to Palpation of Joints or Extremities Neurological: Cranial nerves II-XII grossly intact Psych/Mental Status: Normal Affect, Appropriate Plan is for transfer to [facility]. Rest as per Nai Coelho [employer] MANAGER-C's note, which I have reviewed and reconciled. - Physical Exam Vitals/I&O's: Vital Signs Temp Pulse Resp BP Pulse Ox 97.7 F L 59 L 18 127/54 H 95 09/16/20 03:34 09/16/20 03:34 09/16/20 03:34 09/16/20 03:34 09/16/20 03:34 Oxygen Delivery Method Room Air Weight: 225 lb 8.526 oz Body Mass Index (BMI) 33.3 Intake and Output for Last 24 Hours 09/14/20 09/15/20 09/16/20 23:59 23:59 23:59 Intake Total 1640 / 1640 1100 / 1100 50 / 50 Output Total 1300 / 1300 1000 / 1000 450 / 450 Balance 340 / 340 100 / 100 -400 / -400 Inpatient E&M: 31543 Disch Hosp
== END 2020-09-16 03:52 | disposition short-term general hospital (02) | DRG 552 ==
LOC: ED 22:01 → PCU 09-12 07:15 → MS3 09-12 11:04
PROVIDERS: Admitting Provider Hospitalist; Emergency Provider Emergency Medicine; PCP Family Medicine; Visit Provider Student in an Organized Health Care Education/Training Program
DX: M50.01 Cervical disc disorder with myelopathy, high cervical region (principal); G25.9 Extrapyramidal and movement disorder, unspecified; M48.02 Spinal stenosis, cervical region; R26.89 Other abnormalities of gait and mobility; R53.1 Weakness; I11.9 Hypertensive heart disease without heart failure; I48.0 Paroxysmal atrial fibrillation; I25.10 Atherosclerotic heart disease of native coronary artery without angina pectoris; R42 Dizziness and giddiness; E78.2 Mixed hyperlipidemia; N40.0 Benign prostatic hyperplasia without lower urinary tract symptoms; Z79.02 Long term (current) use of antithrombotics/antiplatelets; Z79.82 Long term (current) use of aspirin; Z79.899 Other long term (current) drug therapy; I25.2 Old myocardial infarction; Z87.891 Personal history of nicotine dependence; Z95.5 Presence of coronary angioplasty implant and graft
CPT/HCPCS: 70450; 70496; 70498; 70551; 71045; 72040; 72141; 80048; 80061; 81001; 83036; 84484; 85025; 93005; 93306; 97110; 97162; 97166; 97530; 97535; 99285; 99406; J7040; Q9957; Q9967; A4216; C8929

== ENCOUNTER 2020-09-23 10:56 | Inpatient (IN) | payer MEDICARE, BC, SELFPAY ==
[2020-09-12 00:22] VITALS: BMI 33.3
[2020-09-23 11:05] VITALS: BP 113/65; PULSE 77; RESP 18; TEMP 37.4; O2SAT 100; BMI 31.0
--- NOTE | 2020-09-23 11:20 | HP.PCM_ITS ---
Problem List (1) H/O laminectomy Status: Acute Comment: 09/19/[address] Neves with decompression and fusion of C3-4 (2) Anterolisthesis Status: Acute Comment: C3 on C4 (3) Eczema Status: Chronic Qualifiers: Eczema type: unspecified Qualified Code(s): L30.9 - Dermatitis, unspecified Comment: dishidrotic eczema involving both hands (4) Basal cell carcinoma Status: Resolved Qualifiers: Basal cell carcinoma location: face (5) Microscopic hematuria Status: Chronic (6) Osteoarthritis Status: Chronic (7) Renal cyst Status: Chronic (8) Tobacco dependence in remission Status: Chronic Comment: quit in 1965 (9) CAD (coronary artery disease) Status: Chronic Qualifiers: Coronary Disease-Associated Artery/Lesion type: [place] artery [place] vs. transplanted heart: [place] heart (10) Cellulitis Status: Resolved (11) Cellulitis of right lower extremity Status: Resolved (12) Right leg swelling Status: Resolved (13) Leg swelling Status: Chronic (14) PAD (peripheral artery disease) Status: Chronic (15) detention use of drug Status: Chronic Comment: Antithrombotics/antiplatelets (16) Hyperlipidemia Status: Chronic Qualifiers: (17) Hypertension Status: Chronic Qualifiers: (18) S/P coronary artery stent placement Status: Chronic Comment: PCI- XU- Prox RCA, Prox-Mid RCA and RPLB (Synergy Stents) 01/11/16 @ [facility] (19) Old myocardial infarction Status: Chronic Comment: December of 2016 (20) Atherosclerotic heart disease of [place] coronary artery without angina pectoris Status: Chronic Qualifiers: Comment: PCI- XU- Prox RCA, Prox-Mid RCA and RPLB (Synergy Stents) 01/11/16 @ [facility] (21) Paroxysmal atrial fibrillation Status: Chronic (22) Dilated aortic root Status: Chronic (23) Myelopathy Status: Acute (24) Pressure ulcer Status: Acute Qualifiers: Pressure injury location: heel (25) BPH (benign prostatic hyperplasia) Status: Chronic (26) Left ventricular hypertrophy Status: Chronic (27) Grade I diastolic dysfunction Status: Chronic (28) Urinary incontinence Status: Acute (29) Fecal incontinence Status: Acute History of Present Illness Date of Admission: 09/23/20 Chief Complaint: Debility secondary to C3-C4 spondylolisthesis with cervical canal stenosis causing myelopathy. He is status post C3-C4 decompression and fusion on 09/19/[address] Neves. The patient is a 80 year old M with a past medical history of hypertension, hyperlipidemia, tobacco dependence in remission (quit in 1965), coronary artery disease, myocardial infarction in 2016, PTCA/XU (proximal RCA, proximal to mid RCA and RPL B on 01/11/2016 at [facility]), severe left ventricular hypertrophy, grade 1 diastolic dysfunction, preserved ejection fraction, paroxysmal atrial fibrillation, chronic anticoagulation with warfarin, osteoarthritis, chronic microscopic hematuria, renal cyst and eczema who had a C3-4 decompression and laminectomy on 09/19/2020 for C3-4 anterolisthesis and cord compression causing myelopathy. He was admitted to the inpatient rehab unit at [facility] on 09/23/2020 for greater than 3 hours of therapy daily to restore him at or near his prior level of function. All records from [facility] were reviewed as well as the EMR records at [facility]. Past Medical History Past Medical History (Chronic Problems): Chronic Problems (Last Reviewed 09/29/20 @ 13:[address] 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 disease) (Chronic) detention use of drug (Chronic) Antithrombotics/antiplatelets Hyperlipidemia (Chronic) Hypertension (Chronic) S/P coronary artery stent placement (Chronic) PCI- XU- Prox RCA, Prox-Mid RCA and RPLB (Synergy Stents) 01/11/16 @ [facility] 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 Atherosclerotic heart disease of [place] coronary artery without angina pectoris (Chronic) PCI- XU- Prox RCA, Prox-Mid RCA and RPLB (Synergy Stents) 01/11/16 @ [facility] Paroxysmal atrial fibrillation (Chronic) Dilated aortic root (Chronic) Medical History: Medical History (Last Reviewed 09/29/20 @ 13:[address] Yas Quan DO) PAD (peripheral artery disease) (Chronic) I73.9 detention use of drug (Chronic) Z79.899 Antithrombotics/antiplatelets Hyperlipidemia (Chronic) E78.5 Hypertension (Chronic) I10 Old myocardial infarction (Chronic) I25.2 December of 2016 Atherosclerotic heart disease of [place] coronary artery without angina pectoris (Chronic) I25.10 PCI- XU- Prox RCA, Prox-Mid RCA and RPLB (Synergy Stents) 01/11/16 @ [facility] Paroxysmal atrial fibrillation (Chronic) I48.0 Dilated aortic root (Chronic) I77.810 Allergies No Known Allergies Allergy (Verified 01/02/20 14:24) Home Medications: Ambulatory Orders Medication Instructions Recorded Aspirin [Adult Low Dose Aspirin EC] 81 mg PO DAILY 01/30/16 finasteride 5 mg tablet 5 mg PO DAILY 07/18/17 acetaminophen 500 mg tablet 500 mg PO Q4H PRN 09/25/18 Melatonin/Pyridoxine HCl (B6) 3 mg PO QHS 09/11/20 [Melatonin 3 mg Tablet] Pramipexole Di-HCl [Mirapex] 0.125 mg PO DAILY 09/11/20 Atorvastatin Calcium [Lipitor] 80 mg PO QHS 09/23/20 Clopidogrel Bisulfate [Clopidogrel] See Rx Instructions .ROUTE .COMPLEX 09/23/20 Surgical History: Surgical History (Last Reviewed 09/23/20 @ 11:[address] Yas Quan DO) S/P coronary artery stent placement (Chronic) Z95.5 PCI- XU- Prox RCA, Prox-Mid RCA and RPLB (Synergy Stents) 01/11/16 @ [facility] History of knee surgery Z98.890 bilat History of pilonidal cyst Z87.2 S/P rotator cuff repair Z98.890 bilat Surgical History: rotator cuff repair, - - decompression and fusion of C3-4 on 09/19/[address] Neves from [facility]. Psychiatric History: No pertinent psych hx Lives: Alone Smoking Status: Former smoker - quit in 1965 Tobacco Use: Non-smoker Alcohol: Occasional - he drinks on weekends socially Drugs: None - *Family History Paternal Family History: Family History (Last Reviewed 09/23/20 @ 11:[address] Yas Quan DO) Mother CHF (congestive heart failure) History Items: - - emphysema Review of Systems Constitutional: Denies: Chills, Fever, Weight Change Eyes: Denies: Vision Change HEENT: Denies: Head Aches, Nasal Congestion, Sinus Congestion, Sinus Drainage Cardiovascular: Denies: Chest Pain, Chest Pressure, Chest Tightness, Light Headedness, Orthopnea, Palpitations Respiratory: Denies: Cough, Shortness of Breath, Shortness of breath at rest, Sputum production Gastrointestinal: Denies: Abdominal Pain, Nausea, Vomiting Genitourinary: Reports: Incontinence - this is new since the surgery. Denies: Dysuria Musculoskeletal: Reports: Neck Pain. Denies: Joint Pain, Joint Tenderness Skin: Reports: Wounds - he has a decubitus ulcer on the left heel which is stage 2. 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 Denies: Change in Speech, Slurred speech, Numbness, Tingling, Tremor, Seizures Psychiatric: Denies: Anxiety, Depression, Homicidal Ideations, Suicidal Ideations Endocrine: Denies: Change in Body Habitus, Hx of Irradiation, Hx of Thyroiditis Hematologic/ Lymphatic: Denies: Easy Bruising, Easy Bleeding, Hx of blood clot VTE Information - Inpt Only VTE Present on Admission: No VTE Mechan Device Prophylaxis: Knee High JAZMÍN Hose VTE Pharm Prophylaxis ordered?: Yes Patient Problems: Active and Suspected Problems (Last Reviewed 09/29/20 @ 13:[address] Yas Quan, DO) H/O laminectomy (Acute) 09/19/[address] Neves with decompression and fusion of C3-4 Anterolisthesis (Acute) C3 on C4 Myelopathy (Acute) Pressure ulcer (Acute) Urinary incontinence (Acute) Fecal incontinence (Acute) - Physical Exam Vitals/I&O's: Vital Signs Temp Pulse Resp BP Pulse Ox 99.3 F H 77 18 113/65 100 09/23/20 11:05 09/23/20 11:05 09/23/20 11:05 09/23/20 11:05 09/23/20 11:05 Oxygen Flow Rate (L/min) 2 Oxygen Delivery Method Nasal Cannula Weight: 210 lb Body Mass Index (BMI) 31.0 General: Alert, Oriented x3, Cooperative, - - he is having brief spasms that affect his whole body HEENT: PERRLA, EOMI, Normocephalic, - - he has an incision in the posterior neck due to recent decompression and fusion of C3-4 and the area around the incision is painful and there is a hematoma Oral: No Gingival or Mucosal Lesions/ Ulcerations, Dry Mucosa Neck: No JVD, No Nodes, Trachea Midline, - - He is holding his head and neck very still to control pain and the trapezius muscles are in spasm.....R>L Lungs: Clear to auscultation - anterior and lateral, Normal air movement, Diminished, - - he is not tachypneic and he has no conversational dyspnea and no accessory muscle use Cardiovascular: Regular rate, Regular Rhythm, Normal S1, Normal S2, No murmurs, No rub noted, No Gallop, - - heart sounds are a little distant Abdomen: Bowel Sounds Present, Soft, Non Tender, Non-Distended, - - No guarding with palpation Extremities: No clubbing, No cyanosis, Capillary Refill Less than 3 Seconds, No Calf Tenderness, Diminished Peripheral Pulses - in the feet, Edema - mild at the ankles Skin: No rashes, No breakdown, Ulcer/ Wound - He has a stage 2 L heel ulcer which is 50% yellow white slough. There is no raissa-wound erythema and no increased warmth to touch of the heel, Rash Present - The hands are very dry and flakey and there are several open cracks over the knuckles on the dorsal surface of the hands and a rare crack at joint flexure on the palmar side of the hands....no infection present., Incision - posterior neck......with hematoma and serosangiuneous drainage. No erythema and no increased warmth to touch. there are norm and the wound is coapted well. the skin over the LE's is very dry and he has a number of punctate openings in the skin of the anterior shins and knees., - Musculoskeletal: Arthritic Changes Neurological: Cranial nerves II-XII grossly intact, - - decreased room service server L>R. He has drift with the left arm. No0 drift with the R arm or the legs. Psych/Mental Status: Normal Affect, Appropriate Assessment/Plan All Active Problems (Last Reviewed 09/29/20 @ 13:[address] Yas Quan DO) H/O laminectomy (Acute) Anterolisthesis (Acute) Myelopathy (Acute) Pressure ulcer (Acute) Urinary incontinence (Acute) Fecal incontinence (Acute) Basal cell carcinoma (Resolved) Cellulitis (Resolved) Cellulitis of right lower extremity (Resolved) Right leg swelling (Resolved) Impressions 1. physical debility due to cervical cord compression due to anterolisthesis of C3 on C4 with myelopathy and radiculopathy 2. S/P decompressions and fusion of C3-[address] Neves on 09/19/20 3. generalized weakness and deconditioning 4. Dyshidrotic eczema of both hands with cracking in the flexures of the fingers 5. Urine retention 6. History of BPH 7. Renal cyst 8. Stage II decubitus ulcer left heel -present at admission to rehab 9. Tobacco dependence in remission 10. Osteoarthritis 11. Chronic microscopic hematuria 12. Hyperlipidemia 13. Hypertension 14. Peripheral vascular disease 15. Coronary artery disease with history of myocardial infarction in December 2016, PCI/XU to the proximal RCA, proximal mid RCA and RPLB at [facility] on 01/11/2016. 16. Paroxysmal atrial fibrillation 17. Dilated aortic root 18. Grade 1 diastolic dysfunction 19. Urinary incontinence prior to Marino catheter at previous institution 20. Acute fecal incontinence 21. Chronic normochromic normocytic anemia - etiology? TSH was normal less than 1 year ago. B12 was also normal. Feritin was low normal in March of 2020 22. History of restless leg syndrome on Mirapex 23. Abnormal LFT's - mild elevation in the AST, ALT and the AP. this is new since January of 2020 PLAN PT for gait stability OT for ADL's ST for evaluation Analgesics as needed Bowel protocol Fall precautions Assess for Anxiety/Depression GI prophylaxis not necessary - he has no hx of PUD and he has no GI complaints DVT prophylaxis with heparin 5000 units subcu every 12 hours. Follow up with surgery, Dr. Santiago and Dr. Donte Wang following DC from [facility] AM lab including CMP, CBC, Mag and Phos UA - urine looks concentrated and a little cloudy May need to follow up with urology for voiding trial post DC. Will need to check with the surgeon when it is OK to start Warfarin back up Inpatient E&M: [id number] Init Hosp L3
--- NOTE | 2020-09-23 11:46 | PCM.RU.PYE ---
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 Status Changes from Prescreening?: No changes Identified Actual Problem List:: Skin Intergrity, Pain, ALteration in Cmfrt, Bladder Incontinence, Bowel, Incontinence, Alteration in Sleep, Mobility Impaired, Self Care Deficit, BP, Hypertension, Fluid Change-Dehydration, Alteration-Leisure Activ. Potential Problem List:: DVT, Bleeding, Infection, UTI, Aspiration, Falls, Skin Integrity, Depression Risk of Complications DVT: LMWH, JAZMÍN Hose, - Bleeding: Monitor Lab Values, Nursing to Teach Precautions for anti-coagulation therapy., Wound, if applicable, to be assessed every shift., Stroke patients assessed for lethargy or change in status. Infection: Clinical Staff to Monitor for S/S of infection:, S/S of infection include fever, redness, warmth, etc. Urinary Tract Infection: Monitor for frequency, burning, discomfort, or incontinence., Nursing will obtain urine sample for urinalysis and C&S when ordered. Aspiration: Clinical staff will monitor for coughing, drooling, congestion., Speech will evaluate swallowing and dsyphasia., Nursing will monitor patient swallowing during meals. Falls: Patient will be evaluated for Fall Precautions, Patient will be placed on Fall Precautions as indicated per protocol. Skin Breakdown: Nursing will assess skin daily using assessment tool., Nursing will place on Skin Breakdown Precautions as indicated. Pain: Clinical staff will assess patient's pain level per protocol., Medications will be given, if needed, and the pain level reassessed., Other methods: Massage, distraction, decrease stimulus, etc. used PRN. Plan of Care Patient requires physician specializing in physical medicine and rehab oversight to provide close medical supervision of rehab issues including: Pain Management, Sleep Problems, Bowel and Bladder, Medical and co-morbidity Management, DVT prophylaxis, Rehabilitation Leadership, Coordination of treatment team Patient needs Physical Therapy: For a minimum of 1 hour, At least 5 out of 7 days Patient needs Physical Therapy to improve:: Mobility, Mobility, Mobility, Strengthening, Transfers, Stretching, ROM, Endurance, Stairs, Gait, Balance Patient needs Occupational Therapy: For a minimum of 1 hour, At least 5 out of 7 days Patient needs Occupational Therapy to improve ADL's incl.: Eating, Grooming, Bathing, Dressing, Toileting, Toilet transfers, Community Reintegration, Higher functioning activities, Household tasks, Adaptive Equipment, Splinting, Other activities as determined Patient requires speech therapy for: Swallowing, Cognition, Language Skills, Compensatory Strategies Patient requires 24/7 Rehabilitation Nursing for: Pain Issues, Identifying and preventing risk factors, Monitoring and reporting current medical conditions, Assisting with ambulation, transfer, and all ADL's, Teaching patients about disease process and medications, Family teaching, Providing safe environment, Bowel and Bladder Issues, Skin integrity, Medication Management Patient needs Napping Machine Operator/ Case Management for: Discharge Planning, Arranging Home Equipment or Services, Family Interventions Patient needs Dietary and Nutrition Services for: Adequate Nutrition, Nutritional Supplements, Nutritional Education Goals Patient will remain: free from falls, or injury at time of discharge. Patient will perform bed mobility at: MOD I level of assist. Patient will complete transfers from bed to chair at: - - CGA Patient will ambulate: 100 feet, with MOD I assist, - - with a WW - LT goal. short term goal is to ambulate 25 feet. Patient will complete upper body dressing at: - - CGA Patient will complete lower body dressing at: - - supervision using AE Patient will complete toileting at: - - CGA with Patient will perform bathing at: - - with supervision - ad terminal makeup operator goal Patient will complete grooming at: MOD I level of assist. - standing at the sink Patient will achieve: at MOD I assist, - - 1 curb step Patient will have pain level of: of 3 or less Patient's skin will: remain intact, free from infection. Patient will receive: adequate nutrition. Discharge Planning Pt Prognosis for Sig. Practical Improv. w/in Reasonable Time: Fair Estimated Length of stay (days): 4 Anticipated D/C Destination: Long Term Facility Was Preadmission Assessment Accurate?: Yes
[2020-09-23 14:10] VITALS: O2SAT 92
[2020-09-23] MEDS: tiZANidine HCl 2 MG Tablet PO ×2 (14:53→20:41)
[2020-09-23] MEDS: Acetaminophen 500 MG Tablet 1000 MG PO ×2 (14:53→20:40)
[2020-09-23 15:09] LABS: Absolute Lymphocyte Count 0.53 X10^3/uL (0.83-4.51); Absolute Neutrophil Count 5.4 X10^3/uL (2.0-7.7); Basophil# 0.02 X10^3/uL; Basophil% 0.3 % (0-1); Eosinophil# 0.23 X10^3/uL; Eosinophils% 3.3 % (0-5); Hematocrit 30.9 % (40-54); Hemoglobin 9.9 g/dL (13.0-16.5); Lymphocyte # 0.53 X10^3/ul (4.0); Lymphocyte % 7.6 % (19-41); Mean Corpuscular Hgb 30.1 pg (27.0-32.0); Mean Corpuscular Volume 93.9 fL (80-94); Mean Platelet Vol. 10.3 fl (6.2-12.0); Monocyte# 0.72 X10^3/uL; Monocyte% 10.4 % (0-10); NRBC Flagged by Analyzer 0 % (0-5); POSITIVE DIFFERENTIAL YES; Platelet Count 374 K/mm3 (150-450); RBC Distribution Width SD 47.8 fl (35.1-43.9); Red Blood Count 3.29 M/mm3 (4.6-6.2); White Blood Count 6.9 K/mm3 (4.4-11.0)
[2020-09-23 15:21] LABS: Differential Indicated SCAN CRITERIA MET
[2020-09-23 15:32] LABS: ALB/GLOB Ratio 0.6 RATIO (0.9-2.4); AST(SGOT) 69 U/L (15-37); Alanine Aminotransfer ALT/SGPT 89 U/L (16-61); Albumin, Serum 2.5 g/dL (3.2-5.0); Alkaline Phosphatase 138 U/L (45-117); Anion Gap 5 (5-15); BUN 30 mg/dL (7-18); BUN/Creat Ratio 34.4 RATIO (10-20); Calcium,Total 8.3 mg/dL (8.5-10.1); Chloride 104 mmol/L (98-107); Creatinine, Serum 0.87 mg/dL (0.70-1.30); EST Glomerular Filtration Rate 89 mL/min (>60); Est Glom Filt Rate - Afr Amer 108 mL/min (>60); Estimated Creatinine Clearance 67.72 ml/min; Globulin 3.9 g/dL (2.2-4.2); Glucose 153 mg/dL (74-106); Magnesium 2.5 mg/dL (1.6-2.6); Potassium 4.1 mmol/L (3.5-5.1); Protein, Total 6.4 g/dL (6.4-8.2); Sodium Level 138 mmol/L (136-145)
[2020-09-23 15:45] LABS: Differential Comment SCANNED
[2020-09-23] MEDS: Arthritis Pain Compound 60 CLICK TUBE TOPICAL ×2 (15:51→20:35)
[2020-09-23 16:00] LABS: Bacteria 0 SEEN /hpf (None Seen); Mucous, Urine 0 SEEN /hpf (<or=2+); White Blood Cells 0 SEEN /hpf (0-5)
[2020-09-23 16:08] LABS: Color, Urine Yellow (Yellow); Glucose, Dipstick Normal (Normal); Ketone-Dipstick Negative (Negative); Leukocyte Esterase-Dipstick Negative /ul (Negative); Nitrite-Dipstick Negative (Negative); Occult Blood-Urine 10 /ul (Negative); Protein-Dipstick 15 mg/dl (Negative); Urine Bilirubin Dipstick Negative (Negative); Urine Clarity Sl. Cloudy (Clear); Urine Urobilinogen Normal (Normal)
[2020-09-23 16:17] LABS: Amorphous Sediment 1+ URATE; Red Blood Cells-Urine 0-5 SEEN /hpf (0-5); Squamous Epithelial Cells - UA 0-5 SEEN /hpf (0-5)
--- NOTE | 2020-09-23 18:31 | NURSING ---
pt's daughter present on admit and aware of TEAM day and time.
[2020-09-23 19:30] VITALS: BP 118/63; PULSE 77; RESP 16; TEMP 36.2; O2SAT 95
[2020-09-23] MEDS: traMADol 50 MG Tablet PO (20:34)
[2020-09-23] MEDS: MELATONIN 3 MG TABLET PO (20:34)
[2020-09-23] MEDS: Ammonium Lactate 225 gm Bottle 1 APPLIC TOPICAL (20:37)
[2020-09-23] MEDS: QUEtiapine 25 MG Tablet PO (20:40)
[2020-09-23] MEDS: Atorvastatin Calcium 80 MG Tablet PO (20:41)
[2020-09-23] MEDS: Heparin Injection (Vial) 5,000 UNIT/ML VIAL 5000 UNIT SC (22:57)
[2020-09-24] MEDS: Acetaminophen 500 MG Tablet 1000 MG PO ×3 (05:32→22:23)
[2020-09-24] MEDS: Arthritis Pain Compound 60 CLICK TUBE TOPICAL ×4 (05:32→20:31)
[2020-09-24] MEDS: tiZANidine HCl 2 MG Tablet PO ×3 (05:33→20:30)
[2020-09-24 07:51] VITALS: BP 114/62; PULSE 58; RESP 18; TEMP 36.6; O2SAT 93
[2020-09-24] MEDS: Heparin Injection (Vial) 5,000 UNIT/ML VIAL 5000 UNIT SC ×2 (08:10→20:20)
[2020-09-24] MEDS: Aspirin E.C. 81 MG Tablet PO (08:10)
[2020-09-24] MEDS: Pramipexole Di-HCl 0.125 MG Tablet PO (08:10)
[2020-09-24] MEDS: traMADol 50 MG Tablet PO ×2 (08:10→20:34)
[2020-09-24] MEDS: Ammonium Lactate 225 gm Bottle 1 APPLIC TOPICAL ×2 (08:17→20:22)
--- NOTE | 2020-09-24 08:30 | PCM.PN.BLA ---
Progress Note Afebrile Vital signs are stable He is maintaining appropriate oxygen saturation on room air He tells me he slept much better last night. Nursing reports that he is retaining urine and he has had to be straight cath'ed twice since admission. Lab from yesterday afternoon was personally reviewed. The white blood cell count is normal at 6.9 but neutrophils are mildly increased at 78. Hemoglobin is 9.9 with normochromic normocytic indices-likely secondary to acute blood loss from recent surgery. Platelets are within normal limits. BUN is 30 with a creatinine of 0.87 and a BUN/creatinine ratio of 34. Mucous membranes are dry and I suspect he is dehydrated. Potassium is 4.1 and the sodium is within normal limits. Magnesium is normal at 2.5. Random blood sugar was 153. LFTs are mildly elevated with an AST of 69, ALT of 89 and an alkaline phosphatase of 138. Bilirubin is within normal limits. UA showed 0 WBCs per high-power field, 0-5 RBCs and +1 urate crystals. There was no bacteria seen. He denies any history of gout. He denies hx of Kidney stones. uric acid is likely increased due to the recent surgery. alert and oriented X 3, looks fatigued Lungs are CTA but diminished HRRR today abd - soft and NT with good BS's no significant ankle edema, no calf pain posterior cervical incision is intact and there is no redness and no DC negative Jaime and Vadim's signs no focal neurologic deficits. Impressions 1. Debility due to cervical cervical spinal cord compression due to anterior spondylolisthesis of C3 on C4. 2. Status post decompression and cervical fusion at C3-4 3. Urine retention-secondary to BPH. Not adequately controlled with Proscar 5 mg. Flomax 0.4 mg daily has been added. 4. Chronic normochromic normocytic anemia-etiology? Will defer W/U to PCP. TSH is OK. Consider multiple myeloma....Albumin/Globulin ratio is abnormal and Globulins are consistently high normal 5. History of insomnia 6. Restless leg syndrome - his last ferritin was on the low side for his age. Iron deficiency is a cause of RLS. Will recommend a ferritin, iron and TIBC with % iron saturation at DC. 7. Generalized weakness/fatigue. encourage increased water intake. continue the Proscar and add Flomax 0.4 mg daily to his drug regimen. monitor for lightheadedness and orthostasis, merissa since the BUN/creat ration was very elevated at admission. STROKE Vital Signs/Narrative: Vital Signs Temp Pulse Resp BP Pulse Ox 09/24/20 07:51 97.8 F 58 L 18 114/62 93 Inpatient E&M: 99475 Subs Hosp L2
[2020-09-24] MEDS: Finasteride 5 MG Tablet PO (11:48)
[2020-09-24 19:32] VITALS: BP 104/62; PULSE 79; RESP 16; TEMP 36.6; O2SAT 98
[2020-09-24] MEDS: MELATONIN 3 MG TABLET PO (20:19)
[2020-09-24] MEDS: Atorvastatin Calcium 80 MG Tablet PO (20:23)
[2020-09-24] MEDS: Collagenase 30gm Tube 1 APPLIC TOPICAL (20:26)
[2020-09-24] MEDS: QUEtiapine 25 MG Tablet PO (20:30)
[2020-09-24 22:00] VITALS: PULSE 58; RESP 16
[2020-09-25] MEDS: traMADol 50 MG Tablet PO ×3 (04:54→20:46)
[2020-09-25] MEDS: tiZANidine HCl 2 MG Tablet PO ×3 (05:03→20:44)
[2020-09-25] MEDS: Acetaminophen 500 MG Tablet 1000 MG PO ×3 (06:00→21:46)
[2020-09-25 07:43] VITALS: BP 128/75; PULSE 59; RESP 20; TEMP 36.3; O2SAT 94
[2020-09-25] MEDS: Pramipexole Di-HCl 0.125 MG Tablet PO (08:08)
[2020-09-25] MEDS: Ammonium Lactate 225 gm Bottle 1 APPLIC TOPICAL ×2 (08:08→20:39)
[2020-09-25] MEDS: Heparin Injection (Vial) 5,000 UNIT/ML VIAL 5000 UNIT SC ×2 (08:08→20:38)
[2020-09-25] MEDS: Finasteride 5 MG Tablet PO (08:08)
[2020-09-25] MEDS: Aspirin E.C. 81 MG Tablet PO (08:08)
[2020-09-25] MEDS: Arthritis Pain Compound 60 CLICK TUBE TOPICAL ×2 (13:17→20:35)
--- NOTE | 2020-09-25 17:00 | NURSING ---
Up in recliner visiting daughter.
--- NOTE | 2020-09-25 18:48 | NURSING ---
x2 assist for transfers with walker stand pivot only , needs max cues for how to turn and use walker, needs several reminders of spinal precautions with impulsivity and safety awareness is lacking.
[2020-09-25 19:04] VITALS: BP 107/54; PULSE 55; RESP 18; TEMP 36.6; O2SAT 95
[2020-09-25] MEDS: MELATONIN 3 MG TABLET PO (19:50)
[2020-09-25] MEDS: Atorvastatin Calcium 80 MG Tablet PO (20:42)
[2020-09-25] MEDS: Collagenase 30gm Tube 1 APPLIC TOPICAL (20:43)
[2020-09-25] MEDS: QUEtiapine 25 MG Tablet PO (20:43)
[2020-09-25 22:00] VITALS: PULSE 56; RESP 16
[2020-09-26] MEDS: Arthritis Pain Compound 60 CLICK TUBE TOPICAL ×3 (05:51→20:40)
[2020-09-26] MEDS: tiZANidine HCl 2 MG Tablet PO ×3 (05:51→20:42)
[2020-09-26] MEDS: Acetaminophen 500 MG Tablet 1000 MG PO ×3 (05:51→21:30)
[2020-09-26 07:03] VITALS: BP 121/60; PULSE 58; RESP 16; TEMP 36.5; O2SAT 96
[2020-09-26] MEDS: Aspirin E.C. 81 MG Tablet PO (07:41)
[2020-09-26] MEDS: Heparin Injection (Vial) 5,000 UNIT/ML VIAL 5000 UNIT SC ×2 (07:43→20:40)
[2020-09-26] MEDS: Ammonium Lactate 225 gm Bottle 1 APPLIC TOPICAL ×2 (07:43→21:02)
[2020-09-26] MEDS: Finasteride 5 MG Tablet PO (07:43)
[2020-09-26] MEDS: Pramipexole Di-HCl 0.125 MG Tablet PO (07:45)
--- NOTE | 2020-09-26 10:16 | CASEMGMT ---
Social Work Met with pt for initial assessment. Discussed code status. Pt wishes to be DNR-CCA, no intubation. Nursing notified. Explained Medicare approved 21 days with DC 10/14. The goal is for pt to DC home alone but has dtr support whom checks in daily. Explained Team. Will continue to follow. Bonita Mcclelland, [facility] TYPE TECHNICIAN
--- NOTE | 2020-09-26 11:21 | PN_ITS ---
Progress Note Afebrile VSS-he is consistently mildly bradycardic. Blood pressure is well controlled with no hypotension. He has been bradycardic in the past looking back through the prior cardiology visits. BP is a little on the low side but he denies lightheadedness. Maintaining appropriate oxygen saturation on RA Oral intake is adequate Discussed with nursing - He is very sleepy. Reviewed the PT/OT notes Medication list reviewed. He is on several sedating medications. He is still c/o spasms in his legs that last a few seconds. He is alert with me today and answering questions appropriately. He is more comfortable with the soft c-collar in place. Lungs-clear to auscultation but mildly diminished may be secondary to poor effort Heart-regular rate and rhythm, no murmur, no gallop Abdomen-soft, nontender, nondistended, normal bowel sounds No calf tenderness No significant peripheral edema I did not examine the Left heel ulcer today but per nursing there is no significant change......Plan to debride in the next few days No rashes the incision has no periwound erythema, no dehiscence and no purulent discharge. The wound margins are approximated well. Impressions 1. Physical debility secondary to spondylolisthesis of C3 on C4 with recent C3- C4 decompression and fusion. 2. Left heel decubitus ulcer-stage II 3. Acute blood loss anemia on chronic normochromic normocytic anemia etiology of chronic anemia? 4. Urine retention in a patient with a history of BPH on Proscar. Will add Flomax 0.4 mg daily and check orthostatic vital signs in the a.m. x3 5. Abnormal transaminases and increased alkaline phosphatase-etiology? If he remains fatigued/sleepy we will give consideration to decreasing the doses of sedating medications and/or eliminating some of them. Discontinue Marino 5 to 7 days following initiation of Flomax. Continue therapy Would consider referral to hematology to be evaluated for chronic normochromic normocytic anemia post discharge. Will defer to PCP. Inpatient E&M: [id number] Subs Hosp L2
--- NOTE | 2020-09-26 12:11 | NURSING ---
spoke with Pretty form Dr Neves office, ok to remove norm on 09/30/20
[2020-09-26 18:51] VITALS: BP 112/59; PULSE 98; RESP 18; TEMP 36.6; O2SAT 97
[2020-09-26] MEDS: MELATONIN 3 MG TABLET PO (20:39)
[2020-09-26] MEDS: traMADol 50 MG Tablet PO (20:40)
[2020-09-26] MEDS: Senna/Docusate Sodium 1 Tablet 2 TABLET PO (20:41)
[2020-09-26] MEDS: Atorvastatin Calcium 80 MG Tablet PO (20:41)
[2020-09-26] MEDS: QUEtiapine 25 MG Tablet PO (20:42)
[2020-09-26] MEDS: Collagenase 30gm Tube 1 APPLIC TOPICAL (21:04)
--- NOTE | 2020-09-27 02:22 | NURSING ---
Reviewed and agree with FRONT END DRIVER charting and documentation.
[2020-09-27] MEDS: tiZANidine HCl 2 MG Tablet PO ×3 (05:28→20:59)
[2020-09-27] MEDS: Arthritis Pain Compound 60 CLICK TUBE TOPICAL ×3 (05:28→20:56)
[2020-09-27] MEDS: Acetaminophen 500 MG Tablet 1000 MG PO ×3 (05:28→20:58)
[2020-09-27 07:32] VITALS: BP 116/68; PULSE 59; RESP 16; TEMP 36.7; O2SAT 93
[2020-09-27] MEDS: Ammonium Lactate 225 gm Bottle 1 APPLIC TOPICAL ×2 (07:44→20:50)
[2020-09-27] MEDS: Senna/Docusate Sodium 1 Tablet 2 TABLET PO (07:45)
[2020-09-27] MEDS: Pramipexole Di-HCl 0.125 MG Tablet PO (07:45)
[2020-09-27] MEDS: Aspirin E.C. 81 MG Tablet PO (07:45)
[2020-09-27] MEDS: Finasteride 5 MG Tablet PO (07:45)
[2020-09-27] MEDS: Heparin Injection (Vial) 5,000 UNIT/ML VIAL 5000 UNIT SC ×2 (07:45→20:56)
[2020-09-27 20:20] VITALS: BP 114/62; PULSE 66; RESP 18; TEMP 36.4; O2SAT 96
[2020-09-27] MEDS: Nystatin Powder 15gm Bottle 1 APPLIC TOPICAL (20:51)
[2020-09-27] MEDS: Collagenase 30gm Tube 1 APPLIC TOPICAL (20:52)
[2020-09-27] MEDS: MELATONIN 3 MG TABLET PO (20:55)
[2020-09-27] MEDS: Atorvastatin Calcium 80 MG Tablet PO (20:57)
[2020-09-27] MEDS: QUEtiapine 25 MG Tablet PO (20:58)
[2020-09-27] MEDS: traMADol 50 MG Tablet PO (21:01)
[2020-09-28] MEDS: tiZANidine HCl 2 MG Tablet PO ×3 (06:26→21:36)
[2020-09-28] MEDS: traMADol 50 MG Tablet PO ×3 (06:27→21:36)
[2020-09-28] MEDS: Acetaminophen 500 MG Tablet 1000 MG PO ×3 (06:27→21:35)
[2020-09-28] MEDS: Arthritis Pain Compound 60 CLICK TUBE TOPICAL ×3 (06:28→21:36)
[2020-09-28] MEDS: Nystatin Powder 15gm Bottle 1 APPLIC TOPICAL ×2 (06:29→21:37)
[2020-09-28 07:36] VITALS: BP 116/57; PULSE 51; RESP 16; TEMP 36.6; O2SAT 93
[2020-09-28] MEDS: Ammonium Lactate 225 gm Bottle 1 APPLIC TOPICAL ×2 (08:06→21:37)
[2020-09-28] MEDS: Aspirin E.C. 81 MG Tablet PO (08:06)
[2020-09-28] MEDS: Heparin Injection (Vial) 5,000 UNIT/ML VIAL 5000 UNIT SC ×2 (08:06→21:36)
[2020-09-28] MEDS: Finasteride 5 MG Tablet PO (08:07)
[2020-09-28] MEDS: Pramipexole Di-HCl 0.125 MG Tablet PO (08:07)
[2020-09-28] MEDS: Tamsulosin HCl 0.4 MG Capsule PO (17:04)
[2020-09-28 21:30] VITALS: BP 114/60; PULSE 70; RESP 18; TEMP 36.5; O2SAT 96
[2020-09-28] MEDS: MELATONIN 3 MG TABLET PO (21:36)
[2020-09-28] MEDS: QUEtiapine 25 MG Tablet PO (21:36)
[2020-09-28] MEDS: Atorvastatin Calcium 80 MG Tablet PO (21:36)
[2020-09-28] MEDS: Collagenase 30gm Tube 1 APPLIC TOPICAL (21:37)
[2020-09-29] MEDS: Arthritis Pain Compound 60 CLICK TUBE TOPICAL ×3 (05:16→20:45)
[2020-09-29] MEDS: traMADol 50 MG Tablet PO ×2 (05:16→12:21)
[2020-09-29] MEDS: Nystatin Powder 15gm Bottle 1 APPLIC TOPICAL ×2 (05:17→20:48)
[2020-09-29] MEDS: Acetaminophen 500 MG Tablet 1000 MG PO ×3 (05:17→20:42)
[2020-09-29] MEDS: tiZANidine HCl 2 MG Tablet PO ×2 (05:17→14:20)
[2020-09-29 05:56] LABS: Anion Gap 3 (5-15); BUN 15 mg/dL (7-18); BUN/Creat Ratio 22.8 RATIO (10-20); Calcium,Total 8.4 mg/dL (8.5-10.1); Chloride 102 mmol/L (98-107); Creatinine, Serum 0.66 mg/dL (0.70-1.30); EST Glomerular Filtration Rate 124 mL/min (>60); Est Glom Filt Rate - Afr Amer 150 mL/min (>60); Estimated Creatinine Clearance 58.92 ml/min; Glucose 81 mg/dL (74-106); Potassium 4.4 mmol/L (3.5-5.1); Sodium Level 136 mmol/L (136-145)
[2020-09-29] MEDS: Pramipexole Di-HCl 0.125 MG Tablet PO (08:16)
[2020-09-29] MEDS: Heparin Injection (Vial) 5,000 UNIT/ML VIAL 5000 UNIT SC ×2 (08:16→20:43)
[2020-09-29] MEDS: Finasteride 5 MG Tablet PO (08:16)
[2020-09-29] MEDS: Aspirin E.C. 81 MG Tablet PO (08:16)
[2020-09-29] MEDS: Ammonium Lactate 225 gm Bottle 1 APPLIC TOPICAL ×2 (08:17→20:48)
[2020-09-29 08:38] VITALS: BP 106/68; PULSE 62; RESP 16; TEMP 36.4; O2SAT 95
--- NOTE | 2020-09-29 09:45 | CASEMGMT ---
Social Work IDT met with patient and daughter via conference call for Team meeting. Discussed patient's progress in therapy and nursing. Pt progressing well, but still requiring x2 assist. Explained Medicare approved 21 days with DC 10/14. Will ReTeam and SW to assist with DC plans - home vs SNF for continued therapy. Will continue to follow. CARL PeaceW
--- NOTE | 2020-09-29 11:07 | PN_ITS ---
Progress Note Lloyd was seen on team rounds today. His daughter Arti participated by phone. Afebrile VSS Maintaining appropriate oxygen saturation on RA Oral intake is good Discussed with nursing - no problems that need addressed Reviewed the PT/OT/ST notes Medication list reviewed. All lab was personally reviewed. Potassium is 4.4 and the sodium is 136. Serum bicarb is within normal limits. The BUN is down to 15 from 30 with improved intake. Creatinine is 0.66, down from 0.87 at admission. Calcium corrected for hypoalbuminemia is within normal limits. He has a soft collar in place now and it is helping with the pain and muscle spasms in the trapezius muscles. He is not complaining of any pain in the Left heel. He slept well last night. He is complaining of having shooting pains in his legs that lasts a few seconds and then is gone. They shock him and come on very suddenly. He is also complaining of restless legs some nights. ...he is on Mirapex and he is bradycardic so can not increase the dose. He is c/o getting lightheaded when standing. He is having some chills today. Denies cough and also denies any abd pain. He has a Marino in but, the urine is very clear. No sore throat or sinus pain. Denies pain in his L heel. Urine in the Marino bag is pale yellow and clear Lloyd is very sleepy. He does arouse fairly easily. He is appropriate when awakened the lungs are diminished with poor inspiratory effort but, they are clear to auscultation. he is not tachypneic and he has no conversational dyspnea H- regular with bradycardia abd - soft and NT no calf pain the incision is intact with no dehiscence, no erythema and no discharge. The left heel ulcer is stage II with 80% -90% slough. There is no periwound er ythema and no purulent discharge. There is no odor. No undermining and no tunneling. He has a reddened area over the Achilles tendon on the left with a blood-filled blister which I left intact. He has no pain with palpation of the Achilles tendon or with dorsiflexion of the foot. There is no warmth surrounding the Achilles tendon. No purulent appearing DC. No rashes no peripheral edema the dryness of the hands is much better and the cracks in the flexures of the fingers are healing. the heel wound was debrided with a 7mm curette. Topical 4% Lidocaine solution was used for anesthesia and the pt tolerated the procedure well and denied. 100% of the wound was debrided. Impressions 1. Debility due to cervical cervical spinal cord compression due to anterior spondylolisthesis of C3 on C4. 2. Status post decompression and cervical fusion at C3-4 3. Urine retention-secondary to BPH. Not adequately controlled with Proscar 5 mg. Flomax 0.4 mg daily has been ordered. 4. Chronic normochromic normocytic anemia-etiology? 5. History of insomnia 6. Restless leg syndrome 7. Generalized weakness/fatigue. Due to multiple sedating medications including Mirapex, melatonin, tizanidine, tramadol, Seroquel. 8. Shooting pains in his legs that last a second or 2-suspect secondary to radicular pain DC Seroquel Change the tizanidine to 2 mg p.o. every 12 hours as needed muscle spasm lasting greater than 5 minutes DC Mirapex and start gabapentin 100 mg p.o. twice daily and 200 mg at bedtime. This will treat radicular plane as well as restless leg. Orthostatic vital signs in the a.m. DC melatonin Change the tramadol to 25 mg p.o. nightly and decrease the every 6 hours as needed dosage to 25 mg rather than 50 mg. change the dressing to Caty and change the dressing every 2-3 days. Add Boaz BID to his drug regimen continue the AFO to offload the left heel but use padding in the back of the splint to pad the Achilles tendon. Recheck the LFT's prior to DC Dr. Ahumada wrote in his last visit in January of 2020 that he should not be anticoagulated due to risk for falls and he should continue on ASA and Plavix. CBC with diff in the AM....if the HGB is dropping then will check a hemoccult stool and get iron studies AND start a PPI or Carafate. STROKE Vital Signs/Narrative: Vital Signs Temp Pulse Resp BP Pulse Ox 09/29/20 08:38 97.6 F L 62 16 106/68 95 Inpatient E&M: [id number] Subs Hosp L3
[2020-09-29] MEDS: Senna/Docusate Sodium 1 Tablet 2 TABLET PO ×2 (12:14→20:43)
[2020-09-29] MEDS: Lidocaine 4% 50 ML Bottle TOPICAL (14:09)
[2020-09-29 14:20] VITALS: BP 107/55; PULSE 63
--- NOTE | 2020-09-29 14:20 | NURSING ---
Addendum entered by Sylvia Mckenzie 09/29/20 19:17: after no results on bsc, prior to standing pt c/o things spinning. Original Note: when standing with therapy and nurse assist from bed pt c/o a little dizziness which resolved and pt then ambulated a short distance to bsc. bp 107/55, hr 63. dr jara made aware.
[2020-09-29] MEDS: Tamsulosin HCl 0.4 MG Capsule PO (17:55)
[2020-09-29] MEDS: Gabapentin 100 MG Capsule PO (17:55)
[2020-09-29] MEDS: Juven (unflavored) Packet 1 PACKET PO (17:55)
[2020-09-29 19:00] VITALS: BP 101/50; PULSE 52; RESP 16; TEMP 36.6; O2SAT 96
[2020-09-29] MEDS: Atorvastatin Calcium 80 MG Tablet PO (20:43)
[2020-09-29] MEDS: Gabapentin 100 MG Capsule 200 MG PO (20:43)
[2020-09-29] MEDS: traMADol 50 MG Tablet 25 MG PO (20:46)
[2020-09-29] MEDS: MELATONIN 3 MG TABLET PO (20:48)
[2020-09-30 05:38] VITALS: BP 102/50; BP 107/59; PULSE 50; PULSE 80
[2020-09-30] MEDS: Acetaminophen 500 MG Tablet 1000 MG PO ×3 (05:42→22:01)
[2020-09-30] MEDS: Arthritis Pain Compound 60 CLICK TUBE TOPICAL ×2 (05:43→22:03)
[2020-09-30] MEDS: Nystatin Powder 15gm Bottle 1 APPLIC TOPICAL ×2 (05:43→22:02)
[2020-09-30 05:45] LABS: Absolute Lymphocyte Count 1.16 X10^3/uL (0.83-4.51); Absolute Neutrophil Count 3.9 X10^3/uL (2.0-7.7); Basophil# 0.02 X10^3/uL; Basophil% 0.3 % (0-1); Eosinophil# 0.11 X10^3/uL; Eosinophils% 1.8 % (0-5); Hematocrit 33.2 % (40-54); Hemoglobin 10.4 g/dL (13.0-16.5); Lymphocyte # 1.16 X10^3/ul (4.0); Lymphocyte % 19.1 % (19-41); Mean Corp Hgb Conc 31.3 g/dL (32-36); Mean Corpuscular Hgb 30.3 pg (27.0-32.0); Mean Corpuscular Volume 96.8 fL (80-94); Mean Platelet Vol. 10.3 fl (6.2-12.0); Monocyte# 0.84 X10^3/uL; Monocyte% 13.8 % (0-10); NRBC Flagged by Analyzer 0 % (0-5); Neutrophil # 3.88 X10^3/uL (2.7-7.7); Neutrophil % 63.8 % (47-70); Platelet Count 387 K/mm3 (150-450); RBC Distribution Width CV 13.8 % (11.6-14.6); Red Blood Count 3.43 M/mm3 (4.6-6.2); White Blood Count 6.1 K/mm3 (4.4-11.0)
[2020-09-30 07:22] LABS: Anion Gap 4 (5-15); BUN 16 mg/dL (7-18); BUN/Creat Ratio 22.5 RATIO (10-20); Calcium,Total 9.1 mg/dL (8.5-10.1); Chloride 102 mmol/L (98-107); Creatinine, Serum 0.71 mg/dL (0.70-1.30); EST Glomerular Filtration Rate 113 mL/min (>60); Est Glom Filt Rate - Afr Amer 137 mL/min (>60); Estimated Creatinine Clearance 58.92 ml/min; Glucose 78 mg/dL (74-106); Potassium 4.6 mmol/L (3.5-5.1); Sodium Level 137 mmol/L (136-145)
[2020-09-30 07:50] VITALS: BP 102/53; PULSE 46; RESP 18; TEMP 36.6; O2SAT 97
--- NOTE | 2020-09-30 08:30 | NURSING ---
Denied pain this AM. x2 assist stand pivot with walker due to unsteady gait and leans back with standing.
[2020-09-30] MEDS: Heparin Injection (Vial) 5,000 UNIT/ML VIAL 5000 UNIT SC ×2 (08:52→22:03)
[2020-09-30] MEDS: Ammonium Lactate 225 gm Bottle 1 APPLIC TOPICAL ×2 (08:52→22:02)
[2020-09-30] MEDS: Juven (unflavored) Packet 1 PACKET PO ×2 (08:52→16:50)
[2020-09-30] MEDS: Finasteride 5 MG Tablet PO (08:57)
[2020-09-30] MEDS: Gabapentin 100 MG Capsule PO ×2 (08:57→16:51)
[2020-09-30] MEDS: Aspirin E.C. 81 MG Tablet PO (08:57)
[2020-09-30] MEDS: Tamsulosin HCl 0.4 MG Capsule PO (16:51)
[2020-09-30 19:21] VITALS: BP 114/64; PULSE 55; RESP 16; TEMP 36.4; O2SAT 96
[2020-09-30] MEDS: MELATONIN 3 MG TABLET PO (19:56)
[2020-09-30] MEDS: traMADol 50 MG Tablet 25 MG PO (20:24)
[2020-09-30] MEDS: Atorvastatin Calcium 80 MG Tablet PO (22:00)
[2020-09-30] MEDS: Gabapentin 100 MG Capsule 200 MG PO (22:02)
[2020-09-30] MEDS: tiZANidine HCl 2 MG Tablet PO (23:54)
[2020-10-01 05:38] VITALS: BP 105/65; BP 94/52; PULSE 69; PULSE 86
[2020-10-01] MEDS: Nystatin Powder 15gm Bottle 1 APPLIC TOPICAL ×2 (06:00→20:55)
[2020-10-01] MEDS: Arthritis Pain Compound 60 CLICK TUBE TOPICAL ×3 (06:00→20:20)
[2020-10-01] MEDS: Acetaminophen 500 MG Tablet 1000 MG PO ×3 (06:00→20:56)
[2020-10-01 07:34] VITALS: BP 105/65; PULSE 69; RESP 16; TEMP 36.6; O2SAT 95
[2020-10-01] MEDS: Gabapentin 100 MG Capsule PO ×2 (07:59→16:25)
[2020-10-01] MEDS: Ammonium Lactate 225 gm Bottle 1 APPLIC TOPICAL ×2 (07:59→20:54)
[2020-10-01] MEDS: Juven (unflavored) Packet 1 PACKET PO ×2 (07:59→16:25)
[2020-10-01] MEDS: Finasteride 5 MG Tablet PO (07:59)
[2020-10-01] MEDS: Aspirin E.C. 81 MG Tablet PO (07:59)
[2020-10-01] MEDS: Heparin Injection (Vial) 5,000 UNIT/ML VIAL 5000 UNIT SC ×2 (07:59→20:54)
[2020-10-01] MEDS: Senna/Docusate Sodium 1 Tablet 2 TABLET PO (08:04)
[2020-10-01] MEDS: Tamsulosin HCl 0.4 MG Capsule PO (18:13)
[2020-10-01 19:35] VITALS: BP 108/56; PULSE 51; RESP 16; TEMP 36.9; O2SAT 99
[2020-10-01] MEDS: tiZANidine HCl 2 MG Tablet PO (20:00)
[2020-10-01] MEDS: traMADol 50 MG Tablet 25 MG PO (20:52)
[2020-10-01] MEDS: MELATONIN 3 MG TABLET PO (20:53)
[2020-10-01] MEDS: Atorvastatin Calcium 80 MG Tablet PO (20:55)
[2020-10-01] MEDS: Gabapentin 100 MG Capsule 200 MG PO (20:55)
[2020-10-02] MEDS: Acetaminophen 500 MG Tablet 1000 MG PO ×3 (05:35→21:17)
[2020-10-02] MEDS: Nystatin Powder 15gm Bottle 1 APPLIC TOPICAL ×2 (05:36→21:19)
[2020-10-02] MEDS: Arthritis Pain Compound 60 CLICK TUBE TOPICAL ×3 (05:37→21:18)
[2020-10-02 07:30] VITALS: BP 110/60; BP 113/59; PULSE 55; PULSE 58
--- NOTE | 2020-10-02 07:30 | NURSING ---
Unable to complete orthostatic VS for standing due to patient unable to stand long enough to complete task due to severe debility. Lying and Sitting completed, denies dizziness.
[2020-10-02] MEDS: Aspirin E.C. 81 MG Tablet PO (07:38)
[2020-10-02] MEDS: Senna/Docusate Sodium 1 Tablet 2 TABLET PO (07:39)
[2020-10-02] MEDS: Heparin Injection (Vial) 5,000 UNIT/ML VIAL 5000 UNIT SC ×2 (07:39→21:18)
[2020-10-02] MEDS: Gabapentin 100 MG Capsule PO ×2 (07:39→16:47)
[2020-10-02] MEDS: Juven (unflavored) Packet 1 PACKET PO ×2 (07:39→16:47)
[2020-10-02] MEDS: Ammonium Lactate 225 gm Bottle 1 APPLIC TOPICAL ×2 (07:39→21:18)
[2020-10-02] MEDS: Finasteride 5 MG Tablet PO (07:39)
[2020-10-02 08:03] VITALS: BP 113/65; PULSE 59; RESP 16; TEMP 35.8; O2SAT 95
[2020-10-02] MEDS: Tamsulosin HCl 0.4 MG Capsule PO (16:47)
[2020-10-02 21:00] VITALS: BP 95/50; PULSE 62; RESP 18; TEMP 36.8; O2SAT 97
[2020-10-02] MEDS: MELATONIN 3 MG TABLET PO (21:03)
[2020-10-02] MEDS: traMADol 50 MG Tablet 25 MG PO (21:03)
[2020-10-02] MEDS: Atorvastatin Calcium 80 MG Tablet PO (21:17)
[2020-10-02] MEDS: Gabapentin 100 MG Capsule 200 MG PO (21:18)
[2020-10-03] MEDS: tiZANidine HCl 2 MG Tablet PO (00:21)
[2020-10-03] MEDS: Nystatin Powder 15gm Bottle 1 APPLIC TOPICAL ×2 (06:38→21:00)
[2020-10-03] MEDS: Arthritis Pain Compound 60 CLICK TUBE TOPICAL ×3 (06:38→20:59)
[2020-10-03] MEDS: Acetaminophen 500 MG Tablet 1000 MG PO ×3 (06:39→21:10)
[2020-10-03 07:40] VITALS: BP 107/62; PULSE 50; RESP 16; TEMP 36.6; O2SAT 96
[2020-10-03] MEDS: Heparin Injection (Vial) 5,000 UNIT/ML VIAL 5000 UNIT SC ×2 (08:18→21:07)
[2020-10-03] MEDS: Finasteride 5 MG Tablet PO (08:18)
[2020-10-03] MEDS: Juven (unflavored) Packet 1 PACKET PO ×2 (08:18→17:15)
[2020-10-03] MEDS: Aspirin E.C. 81 MG Tablet PO (08:18)
[2020-10-03] MEDS: Gabapentin 100 MG Capsule PO ×2 (08:18→17:15)
[2020-10-03] MEDS: Ammonium Lactate 225 gm Bottle 1 APPLIC TOPICAL ×2 (08:23→20:59)
[2020-10-03] MEDS: amLODIPine 2.5 MG Tablet PO (11:45)
--- NOTE | 2020-10-03 13:33 | PCM.PN.BLA ---
Progress Note Afebrile VSS Maintaining appropriate oxygen saturation on RA Oral intake is good Discussed with nursing - no problems that need addressed Reviewed the PT/OT/ST notes - I spoke with the therapists today and he was able to try the steps. He is more alert since many of the sedating drugs were discontinued. Medication list reviewed. Lab 1 09/30/2020 showed a stable hemoglobin at 10.4 with a normal white blood cell count and normal platelets. Electrolytes were within normal limits and the BUN was 16 with a stable creatinine at 0.71. Lloyd's only complaint today is his diet. He does not like the ground up salad and bite-size portions. He has been changed to a regular diet. He denies lightheadedness, chest pain, shortness of breath, cough. He is wearing the soft collar and he needs this to support his neck. Even with the collar he is walking with his head down and he has trouble extending his neck. He is much more alert today when I am talking with him in the therapy room. He is oriented X 3 and more conversant than he has been. Mucous membranes are moist Lungs-clear to auscultation throughout but mildly diminished. No conversational dyspnea and no tachypnea. Heart-regular rate and rhythm, no ectopy. No murmur and no gallop. Abdomen-soft, nontender, normal bowel sounds No peripheral edema No rashes The incision is healing well and there is no bleeding, purulent discharge, dehiscence or periwound erythema. Impressions 1. 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 2. Status post decompression and cervical fusion at C3-4 3. Urine retention-secondary to BPH. Not adequately controlled with Proscar 5 mg. Flomax 0.4 mg daily has been added. BP dropped a bit but he is aymptomatic. 4. Chronic normochromic normocytic anemia-etiology? Will defer W/U to PCP. TSH is OK. Consider multiple myeloma....Albumin/Globulin ratio is abnormal and Globulins are consistently high normal 5. History of insomnia - better now. 6. Restless leg syndrome - his last ferritin was on the low side for his age. Iron deficiency is a cause of RLS. Will recommend a ferritin, iron and TIBC with % iron saturation at [place]. 7. Generalized weakness/fatigue. I suspect this was related to polypharmacy and multiple sedating drugs The Neurontin has helped him to sleep , helped with his pain in the arms and legs and the spasms, and he is not c/o RLS symptoms. He is alert and doing better Will change the diet to regular. Will need to follow up with his PCP/hematology for the etiology of the chronic N/N anemia. DC the Marino catheter today Continue current drug regimen. Inpatient E&M: [id number] Subs Hosp L2
[2020-10-03] MEDS: Tamsulosin HCl 0.4 MG Capsule PO (17:14)
[2020-10-03 19:02] VITALS: BP 118/66; PULSE 61; RESP 14; TEMP 36.6; O2SAT 99
[2020-10-03] MEDS: traMADol 50 MG Tablet 25 MG PO (20:56)
[2020-10-03] MEDS: Atorvastatin Calcium 80 MG Tablet PO (21:07)
[2020-10-03] MEDS: Gabapentin 100 MG Capsule 200 MG PO (21:07)
[2020-10-03] MEDS: Senna/Docusate Sodium 1 Tablet 2 TABLET PO (21:08)
--- NOTE | 2020-10-03 22:40 | NURSING ---
Chaparro removed today around 1600 (per verbal shift report). 2209 Pt called c/o pain and unable to void. Pt attempted to use urinal and was able to void 100cc. Bladder scan done, showed greater than 800. Inserted 16Fr chaparro, d/t retention, maintaining sterile technique- cleansed first with 3 betadine swabs, inserted lubricated catheter, clear yellow urine draining. Inflatted balloon with 10cc sterile water. 900cc's output. Bag hanging below level of bladder at all times. Pt tolerated well w/relief. Cath secure placed to left upper thigh. RN aware and present for cath insertion.
[2020-10-04] MEDS: Arthritis Pain Compound 60 CLICK TUBE TOPICAL ×3 (07:29→20:59)
[2020-10-04] MEDS: Nystatin Powder 15gm Bottle 1 APPLIC TOPICAL ×2 (07:30→20:57)
[2020-10-04] MEDS: Acetaminophen 500 MG Tablet 1000 MG PO ×3 (07:30→21:01)
[2020-10-04] MEDS: Aspirin E.C. 81 MG Tablet PO (07:40)
[2020-10-04] MEDS: Juven (unflavored) Packet 1 PACKET PO ×2 (07:40→17:44)
[2020-10-04] MEDS: Gabapentin 100 MG Capsule PO ×2 (07:40→17:44)
[2020-10-04] MEDS: Heparin Injection (Vial) 5,000 UNIT/ML VIAL 5000 UNIT SC ×2 (07:40→20:59)
[2020-10-04] MEDS: Finasteride 5 MG Tablet PO (07:41)
[2020-10-04] MEDS: Ammonium Lactate 225 gm Bottle 1 APPLIC TOPICAL ×2 (07:42→21:17)
[2020-10-04 09:00] VITALS: BP 109/64; PULSE 81; RESP 16; TEMP 36.9; O2SAT 94
[2020-10-04] MEDS: amLODIPine 2.5 MG Tablet PO (10:23)
--- NOTE | 2020-10-04 15:59 | NURSING ---
dressing change done per Dr. Quan's order.
[2020-10-04] MEDS: Tamsulosin HCl 0.4 MG Capsule PO (17:44)
[2020-10-04 18:48] VITALS: BP 110/59; PULSE 64; RESP 16; TEMP 36.6; O2SAT 95
[2020-10-04 20:42] VITALS: PULSE 72; RESP 16; O2SAT 95
[2020-10-04] MEDS: traMADol 50 MG Tablet 25 MG PO (20:53)
[2020-10-04] MEDS: tiZANidine HCl 2 MG Tablet PO (20:55)
[2020-10-04] MEDS: Gabapentin 100 MG Capsule 200 MG PO (20:56)
[2020-10-04] MEDS: Atorvastatin Calcium 80 MG Tablet PO (20:58)
[2020-10-05] MEDS: Acetaminophen 500 MG Tablet 1000 MG PO ×3 (05:20→21:20)
[2020-10-05] MEDS: Nystatin Powder 15gm Bottle 1 APPLIC TOPICAL ×2 (05:23→21:30)
[2020-10-05] MEDS: Arthritis Pain Compound 60 CLICK TUBE TOPICAL ×3 (05:25→21:21)
[2020-10-05 08:17] VITALS: BP 101/63; PULSE 56; RESP 16; TEMP 36.4; O2SAT 98
[2020-10-05] MEDS: Aspirin E.C. 81 MG Tablet PO (08:31)
[2020-10-05] MEDS: Gabapentin 100 MG Capsule PO ×2 (08:31→18:17)
[2020-10-05] MEDS: Juven (unflavored) Packet 1 PACKET PO ×2 (08:31→18:17)
[2020-10-05] MEDS: Heparin Injection (Vial) 5,000 UNIT/ML VIAL 5000 UNIT SC ×2 (08:31→21:21)
[2020-10-05] MEDS: amLODIPine 2.5 MG Tablet PO (08:32)
[2020-10-05] MEDS: Senna/Docusate Sodium 1 Tablet 2 TABLET PO ×2 (08:32→21:20)
[2020-10-05] MEDS: Finasteride 5 MG Tablet PO (08:32)
[2020-10-05] MEDS: Ammonium Lactate 225 gm Bottle 1 APPLIC TOPICAL ×2 (08:32→21:23)
--- NOTE | 2020-10-05 10:00 | PCM.PN.BLA ---
Progress Note The Marino had to be reinserted for urine retention in spite of being on Proscar 5 mg and Flomax 0.4 mg. I do not feel we can push the dosing any higher due to low BP's. He will need to follow up with urology post DC and we will DC with the Marino Nursing reports that the urine is cloudy today and a UA has been ordered. Vital signs are stable-he is bradycardic at rest but the heart rate increases appropriately with exertion. He denies SOB. He is afebrile He is maintaining appropriate oxygen saturation on room air. Oral intake is good Third, appropriate, oriented x3, appears comfortable and not in any apparent distress Mucous membranes are moist, no mucosal lesions His neck is in a soft collar. The collar was removed to examine the incision and the incision is intact with no periincisional erythema, no discharge and no dehiscence. Lungs-clear to auscultation but diminished Heart-regular rate and rhythm Abdomen-soft, nontender, nondistended Impressions 1. Physical debility secondary to cervical spinal stenosis with recent laminectomy 2. Urine retention-currently on Proscar 5 mg daily and Flomax 0.4 mg daily. Voiding trial in another 3 to 4 days 3. Chronic normochromic normocytic anemia-defer to PCP for work-up as an outpatient 4. Insomnia-improved 5. Generalized weakness/fatigue -many of sedating drugs were discontinued yesterday and he is a little more alert today. Avoid addition of any additional meds that can cause drowsiness 6. RLS-symptoms have resolved with utilization of Neurontin for radicular pain Continue therapy DC the Marino catheter today-on post void residuals if he is retaining greater than 400 cc and has to be straight cathed more than 2 times will reinsert Marino and he will need to follow-up with Dr. Mcnulty as an outpatient. STROKE Vital Signs/Narrative: Vital Signs Temp Pulse Resp BP Pulse Ox 10/05/20 08:17 97.6 F L 56 L 16 101/63 98 Inpatient E&M: [id number] Subs Hosp L2
[2020-10-05 13:36] LABS: Mucous, Urine 0 SEEN /hpf (<or=2+)
[2020-10-05 13:41] LABS: Color, Urine Yellow (Yellow); Glucose, Dipstick Normal (Normal); Ketone-Dipstick Negative (Negative); Leukocyte Esterase-Dipstick 500 /ul (Negative); Nitrite-Dipstick Positive (Negative); Occult Blood-Urine 250 /ul (Negative); Protein-Dipstick 30 mg/dl (Negative); Urine Bilirubin Dipstick Negative (Negative); Urine Clarity Sl. Cloudy (Clear); Urine Urobilinogen Normal (Normal)
[2020-10-05 13:48] LABS: Red Blood Cells-Urine 5-10 SEEN /hpf (0-5); White Blood Cells 5-10 SEEN /hpf (0-5)
[2020-10-05 13:50] LABS: Bacteria 2+ /hpf (None Seen); Triple Phosphate Crystals Ur 1+ /hpf (<or=1+)
[2020-10-05] MEDS: Tamsulosin HCl 0.4 MG Capsule PO (18:17)
[2020-10-05 19:34] VITALS: BP 105/53; PULSE 78; RESP 16; TEMP 36.8; O2SAT 98
[2020-10-05] MEDS: Atorvastatin Calcium 80 MG Tablet PO (21:20)
[2020-10-05] MEDS: Gabapentin 100 MG Capsule 200 MG PO (21:20)
[2020-10-05] MEDS: Cefadroxil 500 MG CAPSULE 1000 MG PO (21:21)
[2020-10-05] MEDS: traMADol 50 MG Tablet 25 MG PO (21:22)
[2020-10-05] MEDS: tiZANidine HCl 2 MG Tablet PO (22:12)
[2020-10-06] MEDS: Acetaminophen 500 MG Tablet 1000 MG PO ×3 (06:33→20:52)
[2020-10-06] MEDS: Arthritis Pain Compound 60 CLICK TUBE TOPICAL ×3 (06:34→20:53)
[2020-10-06] MEDS: Nystatin Powder 15gm Bottle 1 APPLIC TOPICAL ×2 (06:34→20:55)
[2020-10-06] MEDS: Gabapentin 100 MG Capsule PO ×2 (08:00→17:48)
[2020-10-06] MEDS: Cefadroxil 500 MG CAPSULE 1000 MG PO ×2 (08:00→20:52)
[2020-10-06] MEDS: Juven (unflavored) Packet 1 PACKET PO ×2 (08:00→17:47)
[2020-10-06] MEDS: Aspirin E.C. 81 MG Tablet PO (08:00)
[2020-10-06] MEDS: Ammonium Lactate 225 gm Bottle 1 APPLIC TOPICAL ×2 (08:01→20:54)
[2020-10-06] MEDS: Finasteride 5 MG Tablet PO (08:01)
[2020-10-06] MEDS: Heparin Injection (Vial) 5,000 UNIT/ML VIAL 5000 UNIT SC ×2 (08:01→20:53)
[2020-10-06] MEDS: Senna/Docusate Sodium 1 Tablet 2 TABLET PO ×2 (08:02→20:55)
[2020-10-06 09:49] VITALS: BP 97/63; PULSE 51; RESP 16; TEMP 36.9; O2SAT 95
--- NOTE | 2020-10-06 12:30 | CASEMGMT ---
Social Work IDT met with patient and dtr via conference call for Team meeting. Discussed patient's progress in therapy and nursing. Pt progressing well. Explained Medicare DC date 10/14. The goal is for pt to DC home alone with family support. However, discussed possible transitioning to SNF for continued therapy prior to home. Pt agreeable if needed. Provided list of SNFs that provides include quality and resource data that is consistent with the pt's preferred geographic region, medical needs and insurance networks. Pt and dtr inquired about TCU. Offered to put on list. Pt stated he has had his two COVID vaccines already; thus, no isolation or visitation restrictions at a SNF - just their specific policies. Pt and dtr to further discuss and notify SW of final decision. SW to continue to follow. Will ReTeam. CARL PeaceW
[2020-10-06] MEDS: Tamsulosin HCl 0.4 MG Capsule PO (17:48)
--- NOTE | 2020-10-06 19:38 | PN_ITS ---
Progress Note Day #2 cefadroxil for urinary tract infection Lloyd was seen on team rounds today. His daughter Arti participated by phone. Afebrile VSS-bradycardic with heart rate sometimes in the low 50s. It does increase with exertion. Blood pressures are on the low side but he denies any lightheadedness and is standing and walking without becoming diaphoretic or dizzy. Maintaining appropriate oxygen saturation on RA Oral intake is good Discussed with nursing - no problems that need addressed Reviewed the PT/OT notes Medication list reviewed. Urine culture is growing a gram-negative emily Lloyd is c/o of pain and tingling, as though ants are crawling on him, in all extremities last night and this caused him to have a very difficult time sle eping. He also is c/o restless legs at night. The spasms resolved with Gabapentin. He is MUCH more alert this week and is progressing well in therapy. He denies CP,SOB, palpitations, lightheadedness. Alert, pleasant, no apparent distress Lungs-clear to auscultation Heart-regular rate and rhythm, no gallop, no murmur Abdomen-soft, nontender, nondistended, normal bowel sounds, no guarding with palpation No peripheral edema No calf tenderness Impressions 1. 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 2. Status post decompression and cervical fusion at C3-4 3. Urine retention-secondary to BPH. Not adequately controlled with Proscar 5 mg. Flomax was added to his drug regimen and a voiding trial was done several days later but unfortunately he is still retaining. We will discontinue the Flomax because it has not helped and blood pressure is borderline although he is denying lightheadedness 4. Chronic normochromic normocytic anemia-etiology? Will defer W/U to PCP. TSH is OK. Consider multiple myeloma....Albumin/Globulin ratio is abnormal and Globulins are consistently high normal 5. History of insomnia - better now. 6. Restless leg syndrome - his last ferritin was on the low side for his age. Iron deficiency is a cause of RLS. Will recommend a ferritin, iron and TIBC with % iron saturation at DC. 7. Stage II decubitus ulcer left heel Change the night time Gabapentin to 200 mg at 1900 and 200 mg at 2200. Will be discharged with a Marino He is agreeable to an SNF at DC if he is not ready to go home by himself He will follow up with Dr. Mcnulty post DC for a voiding trial. I am going to DC the Flomax since the BP is borderline and the urine retention persists even with the addition of the Flomax to Proscar. Continue the Cefadroxil and await the results of the urine culture to make a change in the antibiotic. I did not get a chance to examine the wound on the left heel today so will examine and debride in the AM Inpatient E&M: 46684 Subs Hosp L2
[2020-10-06 20:00] VITALS: BP 100/51; PULSE 68; RESP 16; TEMP 36.5; O2SAT 96
[2020-10-06] MEDS: Gabapentin 100 MG Capsule 200 MG PO (20:52)
[2020-10-06] MEDS: Atorvastatin Calcium 80 MG Tablet PO (20:52)
[2020-10-06] MEDS: traMADol 50 MG Tablet 25 MG PO (20:53)
--- NOTE | 2020-10-07 02:10 | NURSING ---
REVIEWED AND AGREE WITH DEVELOPMENT ADVISOR'S FUNCTIONAL ASSESSMENT CHARTING.
[2020-10-07] MEDS: Arthritis Pain Compound 60 CLICK TUBE TOPICAL ×3 (05:20→22:50)
[2020-10-07] MEDS: Acetaminophen 500 MG Tablet 1000 MG PO ×3 (05:20→22:45)
[2020-10-07] MEDS: Nystatin Powder 15gm Bottle 1 APPLIC TOPICAL ×2 (05:21→23:26)
[2020-10-07] MEDS: amLODIPine 2.5 MG Tablet PO (07:58)
[2020-10-07] MEDS: Aspirin E.C. 81 MG Tablet PO (07:59)
[2020-10-07] MEDS: Finasteride 5 MG Tablet PO (07:59)
[2020-10-07] MEDS: Heparin Injection (Vial) 5,000 UNIT/ML VIAL 5000 UNIT SC ×2 (07:59→22:50)
[2020-10-07] MEDS: Cefadroxil 500 MG CAPSULE 1000 MG PO ×2 (07:59→22:50)
[2020-10-07] MEDS: Juven (unflavored) Packet 1 PACKET PO ×2 (07:59→16:45)
[2020-10-07] MEDS: Gabapentin 100 MG Capsule PO ×2 (07:59→16:45)
[2020-10-07 08:03] VITALS: BP 100/41; PULSE 61; RESP 16; TEMP 36.6; O2SAT 93
[2020-10-07] MEDS: Ammonium Lactate 225 gm Bottle 1 APPLIC TOPICAL ×2 (08:06→23:16)
[2020-10-07] MEDS: Gabapentin 100 MG Capsule 200 MG PO ×2 (19:11→22:50)
[2020-10-07 19:26] VITALS: BP 114/62; PULSE 66; RESP 18; TEMP 36.7; O2SAT 97
[2020-10-07] MEDS: traMADol 50 MG Tablet 25 MG PO (20:46)
[2020-10-07 22:00] VITALS: PULSE 66; RESP 16; O2SAT 97
[2020-10-07] MEDS: Senna/Docusate Sodium 1 Tablet 2 TABLET PO (22:50)
[2020-10-07] MEDS: Atorvastatin Calcium 80 MG Tablet PO (22:50)
[2020-10-07] MEDS: tiZANidine HCl 2 MG Tablet PO (23:14)
[2020-10-08] MEDS: Acetaminophen 500 MG Tablet 1000 MG PO ×3 (06:37→20:52)
[2020-10-08] MEDS: Arthritis Pain Compound 60 CLICK TUBE TOPICAL ×3 (06:37→20:56)
[2020-10-08] MEDS: Nystatin Powder 15gm Bottle 1 APPLIC TOPICAL ×2 (06:37→20:55)
[2020-10-08] MEDS: Heparin Injection (Vial) 5,000 UNIT/ML VIAL 5000 UNIT SC ×2 (08:24→20:55)
[2020-10-08] MEDS: Juven (unflavored) Packet 1 PACKET PO ×2 (08:24→17:16)
[2020-10-08] MEDS: Gabapentin 100 MG Capsule PO ×2 (08:24→17:16)
[2020-10-08] MEDS: Finasteride 5 MG Tablet PO (08:25)
[2020-10-08] MEDS: amLODIPine 2.5 MG Tablet PO (08:25)
[2020-10-08] MEDS: Cefadroxil 500 MG CAPSULE 1000 MG PO (08:25)
[2020-10-08] MEDS: Aspirin E.C. 81 MG Tablet PO (08:26)
[2020-10-08] MEDS: Ammonium Lactate 225 gm Bottle 1 APPLIC TOPICAL ×2 (08:29→20:55)
[2020-10-08 09:02] VITALS: BP 90/52; PULSE 57; RESP 16; TEMP 36.8; O2SAT 92
[2020-10-08 09:56] VITALS: PULSE 57
--- NOTE | 2020-10-08 14:10 | PCM.PN.BLA ---
Progress Note The urine culture is growing Proteus hauseri which is resistant to cephalosporins and ampicillin/sulbactam. It is sensitive to gumaro quinolones and we will discontinue cefadroxil and start Cipro for a 7 day course of treatment.
[2020-10-08] MEDS: Gabapentin 100 MG Capsule 200 MG PO ×2 (18:33→20:55)
[2020-10-08 19:03] VITALS: BP 111/62; PULSE 64; RESP 16; TEMP 36.8; O2SAT 96
[2020-10-08] MEDS: Senna/Docusate Sodium 1 Tablet 2 TABLET PO (20:54)
[2020-10-08] MEDS: Atorvastatin Calcium 80 MG Tablet PO (20:55)
[2020-10-08] MEDS: Ciprofloxacin 500 MG Tablet PO (20:56)
[2020-10-08] MEDS: traMADol 50 MG Tablet 25 MG PO (20:56)
[2020-10-09] MEDS: Arthritis Pain Compound 60 CLICK TUBE TOPICAL ×3 (05:42→21:32)
[2020-10-09] MEDS: Nystatin Powder 15gm Bottle 1 APPLIC TOPICAL ×2 (05:43→21:32)
[2020-10-09] MEDS: Acetaminophen 500 MG Tablet 1000 MG PO ×3 (05:43→21:31)
[2020-10-09 09:00] VITALS: BP 104/58; PULSE 60; RESP 16; TEMP 36.6; O2SAT 94
[2020-10-09] MEDS: Ammonium Lactate 225 gm Bottle 1 APPLIC TOPICAL ×2 (09:23→21:32)
[2020-10-09] MEDS: Juven (unflavored) Packet 1 PACKET PO ×2 (09:23→17:38)
[2020-10-09] MEDS: Aspirin E.C. 81 MG Tablet PO (09:24)
[2020-10-09] MEDS: Ciprofloxacin 500 MG Tablet PO ×2 (09:24→21:32)
[2020-10-09] MEDS: Gabapentin 100 MG Capsule PO ×2 (09:24→17:39)
[2020-10-09] MEDS: Finasteride 5 MG Tablet PO (09:27)
[2020-10-09] MEDS: amLODIPine 2.5 MG Tablet PO (09:27)
[2020-10-09] MEDS: Senna/Docusate Sodium 1 Tablet 2 TABLET PO ×2 (09:28→21:34)
[2020-10-09] MEDS: Heparin Injection (Vial) 5,000 UNIT/ML VIAL 5000 UNIT SC ×2 (09:30→21:32)
[2020-10-09] MEDS: Gabapentin 100 MG Capsule 200 MG PO ×2 (18:38→21:31)
[2020-10-09 19:08] VITALS: BP 113/55; PULSE 65; RESP 17; TEMP 36.2; O2SAT 98
[2020-10-09] MEDS: Atorvastatin Calcium 80 MG Tablet PO (21:32)
[2020-10-09] MEDS: traMADol 50 MG Tablet 25 MG PO (21:33)
[2020-10-10] MEDS: Nystatin Powder 15gm Bottle 1 APPLIC TOPICAL ×2 (06:58→23:24)
[2020-10-10] MEDS: Acetaminophen 500 MG Tablet 1000 MG PO ×3 (06:58→21:59)
[2020-10-10] MEDS: Arthritis Pain Compound 60 CLICK TUBE TOPICAL ×3 (06:58→21:56)
[2020-10-10] MEDS: Gabapentin 100 MG Capsule PO ×2 (08:18→17:25)
[2020-10-10] MEDS: Juven (unflavored) Packet 1 PACKET PO ×2 (08:18→17:25)
[2020-10-10] MEDS: Heparin Injection (Vial) 5,000 UNIT/ML VIAL 5000 UNIT SC ×2 (08:18→21:56)
[2020-10-10] MEDS: Aspirin E.C. 81 MG Tablet PO (08:18)
[2020-10-10] MEDS: Ciprofloxacin 500 MG Tablet PO ×2 (08:18→21:56)
[2020-10-10] MEDS: Finasteride 5 MG Tablet PO (08:19)
[2020-10-10] MEDS: Senna/Docusate Sodium 1 Tablet 2 TABLET PO ×2 (08:19→21:58)
[2020-10-10] MEDS: Ammonium Lactate 225 gm Bottle 1 APPLIC TOPICAL ×2 (08:20→21:57)
[2020-10-10 08:39] VITALS: BP 95/50; PULSE 51; RESP 17; TEMP 37; O2SAT 95
[2020-10-10 08:40] VITALS: BP 95/50; PULSE 51; RESP 17; TEMP 37; O2SAT 95
--- NOTE | 2020-10-10 09:52 | CASEMGMT ---
Social Work Spoke with pt and dtr about DC plans. Pt agreeable to transfer to TCU for more therapy and nursing care until safe to DC home alone. IDT notified. Plan: DC to TCU 10/14 CARL Peace
--- NOTE | 2020-10-10 10:13 | PCM.PN.BLA ---
Progress Note Day # 3 /7 Cipro for CAUTI due to Proteus Hauseri Afebrile VSS - BP is on the low side even after discontinuing the Flomax. He has good oral intake. We have had to hold the Amlodipine at times......will put an order in to hold the Amlodipine if the systolic is < 110. Maintaining appropriate oxygen saturation on RA Oral intake is good Discussed with nursing - Lloyd is complaining of pain at the head of his penis and irritation around the catheter in the glans. I suspect he maqy have a yeast infection. Reviewed the PT/OT/ST notes Medication list reviewed. He is down in the dumps today and tearful. He is discouraged because he still has a Marino and we are not going to be able to remove because he failed dual therapy with Flomax and Proscar and we can not push medication any further due to low BP. He is also discouraged because he has a heel ulcer and now a wound over the achilles. alert and appropriate, tearful at times MM moist Lungs - CTA HRRR Abd is soft and NT no peripheral edema He has petechiae on the Left ankle and the Left foot. The sleeve he wears to control the edema in his legs since he can not get compression stockings on at home goes from the knee to the ankle and it is increasing the venous pressure in the foot and ankle. It is also very tight around the Achilles tendonand it is leaving a deep impression around the ankle and Achilles. The heel wound has black eschar but, it is soft since we have been using the Santyl. 4% lidocaine solution was applied to the heel for 5 minutes and the ulcer was debrided with a #15 scalpel and forceps down to healthy tissue in the subcutaneous tissue. He tolerated the procedure well without any pain and there was a trace of bleeding controlled with pressure. The eschar over the Achilles was scored to promote enzymatic debridement with Santyl. There is no increased warmth to touch around the Achilles and no purulent DC. No calf tenderness no peripheral edema. there is a malodorous DC from around the meatus and there is some mild erythema on the glans. Foreskin is easily retractable. The area of the meatus is very sensitive and painful if the Marino moves. The posterior neck incision is healing well and has no raissa-wound erythema or increased warmth to touch. There is no DC from the wound and no dehiscence Impressions 1. stage 2 decubitus ulcer on the left heel 2. unstageable pressure ulcer over the L Achilles tendon 3. Physical debility due to recent cervical laminectomy for cervical canal stenosis 4. urine retention - failed pharmacologic intervention and not tolerating the medications well due to low BP. 5. 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 Suspected Ellie infection of the glans penis and the meatus secondary to recent antibiotics 7. Depression Start Diflucan 150 mg Q 72H for [address] Mcnulty Start Effexor SR 37.5 mg daily for depression and pain control Hydrogel over the heel ulcer and Santyl on the Achilles wound consult wound care nurse to evaluate the wounds Continue the Cipro He is agreeable to transfer to TCU if needed prior to DC home......he needs to be discharged on 11/13 per insurance STROKE Vital Signs/Narrative: Vital Signs Temp Pulse Resp BP Pulse Ox 10/10/20 08:40 98.6 F 51 L 17 95/50 L 95 10/10/20 08:39 98.6 F 51 L 17 95/50 L 95 Inpatient E&M: 43162 Subs Hosp L3
--- NOTE | 2020-10-10 11:18 | NURSING ---
wound photo: left heel/Achilles
[2020-10-10] MEDS: FLUCONAZOLE 150 MG TABLET PO (11:44)
[2020-10-10 19:41] VITALS: BP 131/67; PULSE 63; RESP 96; TEMP 36.7; O2SAT 96
[2020-10-10] MEDS: Gabapentin 100 MG Capsule 200 MG PO ×2 (19:55→21:58)
[2020-10-10] MEDS: traMADol 50 MG Tablet 25 MG PO (20:41)
[2020-10-10] MEDS: Atorvastatin Calcium 80 MG Tablet PO (21:58)
[2020-10-10] MEDS: tiZANidine HCl 2 MG Tablet PO (21:59)
[2020-10-10 22:00] VITALS: PULSE 62; RESP 16; O2SAT 96
--- NOTE | 2020-10-11 05:55 | EKG12_ITS ---
Test Reason : AM Blood Pressure : / mmHG Vent. Rate : 046 BPM Atrial Rate : 046 BPM P-R Int : 174 ms QRS Dur : 118 ms QT Int : 492 ms P-R-T Axes : 032 -37 -03 degrees QTc Int : 430 ms Marked sinus bradycardia with marked sinus arrhythmia Left axis deviation Left ventricular hypertrophy with QRS widening Abnormal ECG Confirmed by ANTWAN HARTMANN, SHIRA ([id number]), online content editor KIMBER HERNANDEZ ([id number]) on 10/12/2020 1:10:21 PM Referred By: SANJUANA Confirmed By:SHIRA MONCADA MD
[2020-10-11] MEDS: Acetaminophen 500 MG Tablet 1000 MG PO ×3 (06:14→21:40)
[2020-10-11] MEDS: Arthritis Pain Compound 60 CLICK TUBE TOPICAL ×3 (06:14→20:32)
[2020-10-11] MEDS: Nystatin Powder 15gm Bottle 1 APPLIC TOPICAL ×2 (06:15→20:34)
--- NOTE | 2020-10-11 07:41 | CON.PCM_ITS ---
Problem List (1) BPH (benign prostatic hyperplasia) Status: Acute Qualifiers: Lower urinary tract symptom detail: urinary retention Reason for Consult Date of Consultation: 10/11/20 Reason for Consultation: urinary retention. History of Present Illness: The patient is a 80 year old male with h/o bph, s/p spine surgery, in rehab and had failed voiding trial on flomax and proscar. still needs assist to ambulate but improving. Marino in place and clear Past Medical History Past Medical History (Chronic Problems): Chronic Problems (Last Reviewed 09/29/20 @ 13:[address] 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) Antithrombotics/antiplatelets Hyperlipidemia (Chronic) Hypertension (Chronic) S/P coronary artery stent placement (Chronic) PCI- XU- Prox RCA, Prox-Mid RCA and RPLB (Synergy Stents) 01/11/16 @ [facility] 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 Atherosclerotic heart disease of [place] coronary artery without angina pectoris (Chronic) PCI- XU- Prox RCA, Prox-Mid RCA and RPLB (Synergy Stents) 01/11/16 @ [facility] Paroxysmal atrial fibrillation (Chronic) Dilated aortic root (Chronic) Medical History: Medical History (Last Reviewed 10/11/20 @ 07:[address] 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) Z79.899 Antithrombotics/antiplatelets Hyperlipidemia (Chronic) E78.5 Hypertension (Chronic) I10 Old myocardial infarction (Chronic) I25.2 December of 2016 Atherosclerotic heart disease of [place] coronary artery without angina pectoris (Chronic) I25.10 PCI- XU- Prox RCA, Prox-Mid RCA and RPLB (Synergy Stents) 01/11/16 @ [facility] Paroxysmal atrial fibrillation (Chronic) I48.0 Dilated aortic root (Chronic) I77.810 Allergies No Known Allergies Allergy (Verified 01/02/20 14:24) Home Medications: Ambulatory Orders Medication Instructions Recorded Aspirin [Adult Low Dose Aspirin EC] 81 mg PO DAILY 01/30/16 finasteride 5 mg tablet 5 mg PO DAILY 07/18/17 acetaminophen 500 mg tablet 500 mg PO Q4H PRN 09/25/18 Melatonin/Pyridoxine HCl (B6) 3 mg PO QHS 09/11/20 [Melatonin 3 mg Tablet] Pramipexole Di-HCl [Mirapex] 0.125 mg PO DAILY 09/11/20 Atorvastatin Calcium [Lipitor] 80 mg PO QHS 09/23/20 Clopidogrel Bisulfate [Clopidogrel] See Rx Instructions .ROUTE .COMPLEX 09/23/20 Surgical History: Surgical History (Last Reviewed 10/11/20 @ 07:[address] Venu Mcnulty MD) S/P coronary artery stent placement (Chronic) Z95.5 PCI- XU- Prox RCA, Prox-Mid RCA and RPLB (Synergy Stents) 01/11/16 @ [facility] History of knee surgery Z98.890 bilat History of pilonidal cyst Z87.2 S/P rotator cuff repair Z98.890 bilat Surgical History: rotator cuff repair, - - decompression and fusion of C3-4 on 09/19/[address] Neves from [facility]. Psychiatric History: No pertinent psych hx Lives: Alone Smoking Status: Former smoker Tobacco Use: Non-smoker Alcohol: Occasional - he drinks on weekends socially Drugs: None - *Family History Paternal Family History: Family History (Last Reviewed 10/11/20 @ 07:[address] Venu Mcnulty MD) Mother CHF (congestive heart failure) History Items: - - emphysema Review of Systems Constitutional: Denies: Chills, Fever, Weight Change HEENT: Denies: Head Aches, Sinus Congestion, Sinus Drainage Cardiovascular: Denies: Chest Pain, Palpitations Respiratory: Denies: Cough, Shortness of breath at rest, Sputum production Gastrointestinal: Denies: Abdominal Pain, Nausea, Vomiting Genitourinary: Denies: Dysuria Musculoskeletal: Denies: Joint Pain, Joint Tenderness Skin: Denies: Rash, Wounds Neurological: Denies: Numbness, Tingling, Focal weakness Psychiatric: Denies: Anxiety, Depression, Homicidal Ideations, Suicidal Ideations Hematologic/ Lymphatic: Denies: Easy Bruising, Easy Bleeding Physical Exam - Physical Exam Vital Signs Temp 98.0 F 10/10/20 19:41 Pulse 62 10/10/20 22:00 Resp 16 10/10/20 22:00 BP 131/67 H 10/10/20 19:41 Pulse Ox 96 10/10/20 22:00 Intake & Output 10/09/20 10/10/20 10/11/20 23:59 23:59 23:59 Intake Total 1700 / 1700 1080 / 1080 Output Total 2175 / 2175 950 / 950 Balance -475 / -475 130 / 130 Weight: 96.8 kg Intake: Oral 1700 / 1700 1080 / 1080 Output: Urine 2175 / 2175 950 / 950 Other: Number of Bowel Movements 1 General: Oriented x3 HEENT: Atraumatic Oral: Moist Mucosa Neck: Supple Lungs: Normal air movement Cardiovascular: Regular rate Abdomen: Soft Rectal: Exam deferred Microbiology Past 72 Hours 10/10/20 10:50 Gram Stain - Final Penile Drainage 10/05/20 13:25 Urine Culture - Final Urine, Catheterized Proteus hauseri Assessment/Plan All Active Problems (Last Reviewed 09/29/20 @ 13:[address] Yas Quan, ) H/O laminectomy (Acute) Anterolisthesis (Acute) Myelopathy (Acute) Pressure ulcer (Acute) Urinary incontinence (Acute) Fecal incontinence (Acute) BPH (benign prostatic hyperplasia) (Acute) Basal cell carcinoma (Resolved) Cellulitis (Resolved) Cellulitis of right lower extremity (Resolved) Right leg swelling (Resolved) 80 yo male with retention of urine on flomax and proscar and failed voiding trial may need some time to recover from surgery we discussed self cath with patient and right now does not feel like he can do that he can follow up as an outpatient with for a diagnostic cystoscopy to evaluate blockage also would want to do Urodynamics to see if has adequate detusor function options retirement would be TURP (after testing confirm blockage) or Self Cath if has poor bladder function. he can follow up after discharge.
[2020-10-11 08:18] VITALS: BP 85/48; PULSE 47; RESP 16; TEMP 36.4; O2SAT 95
[2020-10-11 08:26] VITALS: BP 125/65
[2020-10-11] MEDS: Juven (unflavored) Packet 1 PACKET PO ×2 (08:30→17:52)
[2020-10-11] MEDS: Aspirin E.C. 81 MG Tablet PO (08:30)
[2020-10-11] MEDS: Gabapentin 100 MG Capsule PO ×2 (08:31→17:52)
[2020-10-11] MEDS: Venlafaxine XR 37.5 MG Capsule PO (08:31)
[2020-10-11] MEDS: Ammonium Lactate 225 gm Bottle 1 APPLIC TOPICAL ×2 (08:31→20:33)
[2020-10-11] MEDS: Heparin Injection (Vial) 5,000 UNIT/ML VIAL 5000 UNIT SC ×2 (08:31→20:33)
[2020-10-11] MEDS: Ciprofloxacin 500 MG Tablet PO ×2 (08:31→20:32)
[2020-10-11] MEDS: Finasteride 5 MG Tablet PO (08:32)
[2020-10-11] MEDS: amLODIPine 2.5 MG Tablet PO (08:32)
[2020-10-11] MEDS: Senna/Docusate Sodium 1 Tablet 2 TABLET PO ×2 (08:32→20:34)
[2020-10-11 19:20] VITALS: BP 94/72; PULSE 47; RESP 16; TEMP 36.9; O2SAT 95
[2020-10-11] MEDS: Gabapentin 100 MG Capsule 200 MG PO ×2 (20:25→21:40)
[2020-10-11] MEDS: traMADol 50 MG Tablet 25 MG PO ×2 (20:30→22:37)
[2020-10-11] MEDS: Atorvastatin Calcium 80 MG Tablet PO (20:34)
[2020-10-11] MEDS: tiZANidine HCl 2 MG Tablet PO (20:36)
[2020-10-11 22:00] VITALS: PULSE 55; RESP 16; O2SAT 95
[2020-10-12] MEDS: Arthritis Pain Compound 60 CLICK TUBE TOPICAL ×3 (05:58→20:30)
[2020-10-12] MEDS: Acetaminophen 500 MG Tablet 1000 MG PO ×3 (05:58→21:58)
[2020-10-12] MEDS: Nystatin Powder 15gm Bottle 1 APPLIC TOPICAL ×2 (05:59→20:38)
[2020-10-12] MEDS: Ammonium Lactate 225 gm Bottle 1 APPLIC TOPICAL ×2 (08:17→20:31)
[2020-10-12] MEDS: Heparin Injection (Vial) 5,000 UNIT/ML VIAL 5000 UNIT SC ×2 (08:20→20:30)
[2020-10-12 08:21] VITALS: BP 129/64; PULSE 51; RESP 17; TEMP 37; O2SAT 95
[2020-10-12] MEDS: amLODIPine 2.5 MG Tablet PO (08:25)
[2020-10-12] MEDS: Ciprofloxacin 500 MG Tablet PO ×2 (08:25→20:30)
[2020-10-12] MEDS: Venlafaxine XR 37.5 MG Capsule PO (08:25)
[2020-10-12] MEDS: Finasteride 5 MG Tablet PO (08:25)
[2020-10-12] MEDS: Senna/Docusate Sodium 1 Tablet 2 TABLET PO (08:25)
[2020-10-12] MEDS: Gabapentin 100 MG Capsule PO ×2 (08:25→17:06)
[2020-10-12] MEDS: Aspirin E.C. 81 MG Tablet PO (08:25)
--- NOTE | 2020-10-12 09:37 | EKG12_ITS ---
Test Reason : BRADYCARDIC Blood Pressure : / mmHG Vent. Rate : 053 BPM Atrial Rate : 053 BPM P-R Int : 154 ms QRS Dur : 114 ms QT Int : 486 ms P-R-T Axes : 035 -42 035 degrees QTc Int : 456 ms Sinus bradycardia with sinus arrhythmia with occasional and consecutive Premature ventricular complex es Left axis deviation Abnormal ECG When compared with ECG of 11-OCT-2020 05:23, MANUAL COMPARISON REQUIRED, DATA IS UNCONFIRMED Confirmed by CHU HARTMANN, ALANNAH ([id number]), map editor ESTRELLA CARRILLO ([id number]) on 10/14/2020 8:26:07 AM Referred By: SANJUANA Confirmed By:J LUIS SAGE MD
--- NOTE | 2020-10-12 10:39 | PN_ITS ---
Progress Note Day #5/ Cipro Afebrile VSS - HR last night was in the 40's Maintaining appropriate oxygen saturation on RA Oral intake is poor last night and today Discussed with nursing - he is not feeling well and is c/o nausea. Reviewed the PT/OT notes Medication list reviewed. Lloyd is c/o nausea today. He is not able to do therapy due to this. Compazine has been ordered. Lloyd also complains of lightheadedness with standing. He denies abd pain. He had a BM today. He has not vomited. He denies CP, SOB, palpitations The Gram stain on the penile drainage has +1 white blood cells and 3+ gram- positive cocci. It is growing a gram-positive coccus possible Enterococcus species and also a gram-positive emily. Sensitivities are pending. EKG done today shows no QT prolongation and he is in SB at 53 BPM with a sinus arrhythmia. When compared to old EKG's there is no significant change. He is not on any medication to block the AV node or slow HR. TSH was WNL in January of 2020 alert, oriented X 3, lying in bed, looks pale Urine in the Marino bag is very concentrated. MM are dry Lungs - CTA H- irreg with slow rate, no gallop and no rub abd - soft and NT with hypoactive BS's the area over the left achilles is better......the eschar is smaller and softening with the Santyl. No pain with palpation around the tendon and no pain with dorsiflexion of the foot. The wound appears more superficial. Heel ulcer is stable. there is no edema Petechiae on the Left LE remain even though the sleeve has been discontinued the glans penis is still reddened and painful to touch. Impressions 1. nausea - due to dehydration? antibiotics? bradycardia? Effexor 2. bradycardia 3. CAUTI 4. urine retention 5. balanitis 6. decubitus ulcer Left heel 7. pressure ulcer over the left Achilles - non-stageable at this time due to eschar continue the Cipro Compazine added PRN for nausea Hold the Effexor in the AM orthostatics in the AM and have nursing check the HR and the BP after ambulation await the final results of the culture of the penile drainage check a BMP in the AM and a CBC with diff Will follow up with Dr. Mcnulty in the office following DC from rehab for urine retention NS 250 cc bolus and then IV NS at 75 STROKE Vital Signs/Narrative: Vital Signs Temp Pulse Resp BP Pulse Ox 10/12/20 08:21 98.6 F 51 L 17 129/64 H 95 Inpatient E&M: 20201 Subs Hosp L2
[2020-10-12] MEDS: proCHLORPERazine 5 MG Tablet PO (10:45)
[2020-10-12] MEDS: 0.9% Saline Lock 10 ML Syringe IV (12:35)
[2020-10-12] MEDS: 0.9% Normal Saline 1,000 ML 75 ML IV ×2 (12:39→23:12)
[2020-10-12] MEDS: tiZANidine HCl 2 MG Tablet PO (13:59)
[2020-10-12] MEDS: Gabapentin 100 MG Capsule 200 MG PO ×2 (18:52→21:58)
[2020-10-12 19:28] VITALS: BP 92/43; PULSE 43; RESP 16; TEMP 36.3; O2SAT 95
[2020-10-12] MEDS: traMADol 50 MG Tablet 25 MG PO (20:28)
[2020-10-12] MEDS: Atorvastatin Calcium 80 MG Tablet PO (20:31)
[2020-10-12 22:00] VITALS: PULSE 48; RESP 16; O2SAT 96
[2020-10-13] MEDS: Arthritis Pain Compound 60 CLICK TUBE TOPICAL ×3 (05:46→21:24)
[2020-10-13] MEDS: Acetaminophen 500 MG Tablet 1000 MG PO ×3 (05:46→21:19)
[2020-10-13] MEDS: Nystatin Powder 15gm Bottle 1 APPLIC TOPICAL ×2 (05:47→21:18)
[2020-10-13 06:00] VITALS: BP 102/47; BP 103/59; BP 105/61; PULSE 51; PULSE 70; PULSE 71
[2020-10-13 06:03] LABS: Absolute Lymphocyte Count 1.13 X10^3/uL (0.83-4.51); Absolute Neutrophil Count 5.4 X10^3/uL (2.0-7.7); Basophil# 0.03 X10^3/uL; Basophil% 0.4 % (0-1); Eosinophil# 0.16 X10^3/uL; Eosinophils% 2.2 % (0-5); Hematocrit 35.4 % (40-54); Hemoglobin 11.1 g/dL (13.0-16.5); Lymphocyte # 1.13 X10^3/ul (0.83-4.51); Lymphocyte % 15.3 % (19-41); Mean Corp Hgb Conc 31.4 g/dL (32-36); Mean Corpuscular Hgb 29.7 pg (27.0-32.0); Mean Corpuscular Volume 94.7 fL (80-94); Mean Platelet Vol. 9.6 fl (6.2-12.0); Monocyte# 0.66 X10^3/uL; Monocyte% 8.9 % (0-10); NRBC Flagged by Analyzer 0 % (0-5); Neutrophil # 5.35 X10^3/uL (2.7-7.7); Neutrophil % 72.4 % (47-70); Platelet Count 291 K/mm3 (150-450); RBC Distribution Width CV 13.9 % (11.6-14.6); RBC Distribution Width SD 48.2 fl (35.1-43.9); Red Blood Count 3.74 M/mm3 (4.6-6.2); White Blood Count 7.4 K/mm3 (4.4-11.0)
[2020-10-13 06:31] LABS: Anion Gap 4 (5-15); BUN 20 mg/dL (7-18); BUN/Creat Ratio 30.6 RATIO (10-20); Calcium,Total 8.1 mg/dL (8.5-10.1); Chloride 103 mmol/L (98-107); Creatinine, Serum 0.65 mg/dL (0.70-1.30); EST Glomerular Filtration Rate 125 mL/min (>60); Est Glom Filt Rate - Afr Amer 151 mL/min (>60); Estimated Creatinine Clearance 58.92 ml/min; Glucose 85 mg/dL (74-106); Potassium 4.1 mmol/L (3.5-5.1); Sodium Level 136 mmol/L (136-145)
[2020-10-13 07:48] VITALS: BP 105/61; PULSE 51; RESP 18; TEMP 36.3; O2SAT 95
[2020-10-13] MEDS: Aspirin E.C. 81 MG Tablet PO (08:03)
[2020-10-13] MEDS: Juven (unflavored) Packet 1 PACKET PO (08:03)
[2020-10-13] MEDS: Gabapentin 100 MG Capsule PO ×2 (08:04→16:22)
[2020-10-13] MEDS: Heparin Injection (Vial) 5,000 UNIT/ML VIAL 5000 UNIT SC ×2 (08:04→21:20)
[2020-10-13] MEDS: Ciprofloxacin 500 MG Tablet PO ×2 (08:04→22:49)
[2020-10-13] MEDS: Finasteride 5 MG Tablet PO (08:06)
[2020-10-13] MEDS: amLODIPine 2.5 MG Tablet PO (08:06)
[2020-10-13] MEDS: Ammonium Lactate 225 gm Bottle 1 APPLIC TOPICAL ×2 (08:06→21:54)
[2020-10-13] MEDS: Senna/Docusate Sodium 1 Tablet 2 TABLET PO ×2 (08:07→21:24)
[2020-10-13] MEDS: FLUCONAZOLE 150 MG TABLET PO (10:54)
[2020-10-13] MEDS: proCHLORPERazine 5 MG Tablet PO ×2 (13:19→19:45)
--- NOTE | 2020-10-13 15:45 | PCM.PN.BLA ---
Progress Note Afebrile Vital signs stable Tilt positive today with the BP stabel with position changes but the HR increased from 51 lying down to 71 standing. He has no lightheadedness but he is having a little nausea after being up with therapy for a while. Maintaining appropriate oxygen saturation on room air Oral intake: 421 for 720 cc however he has received proximately 1650 cc of IV fluid over the past 24 hours. All lab was personally reviewed. White blood cell count is normal at 7.4 with an unremarkable differential. Hemoglobin is improving and is 11.1 today and platelets are normal at 291,000. The BUN is 20 and creatinine is stable at 0.65. Potassium is 4.1 and sodium is 3.6. Calcium corrected for hypoalbuminemia is within normal limits. Culture of the discharge on the head of the penis grew strep angiosus and a GM + emily which is likely a diptheroid. He has better color in his face today. He is alert and appropriate. Lungs - CTA, decreased in the bases Heart regular but bradycardic with no ectopy abd - soft and NT no edema no calf tenderness The wound over the Achilles has softened considerably. There is a small amount of dark eschar at the proximal end of the wound. this is adherent. I used a #15 blade to score the eschar. There is no purulent DC and no warmth to touch around the wound. the heel ulcer is superficial now and there is no raissa-wound erythema, no odor, no DC, NT. The skin over the plantar surface of the foot is thick and hyperkeratotic and cracking. The glans penis is less red and it did not cause pain when I touched the glans today. Impressions 1. nausea - due to dehydration? antibiotics? bradycardia? Effexor 2. bradycardia 3. CAUTI 4. urine retention 5. balanitis 6. decubitus ulcer Left heel 7. pressure ulcer over the left Achilles - non-stageable at this time due to eschar...the eschar is improving and softening Continue Santyl over the Achilles wound Continue the Mepilex over the heel ulcer and off loading with the padded boot with the cut out in the heel The IV dislodged so will leave it out today and I implored him to increase his fluid intake. Finish the 7 day course of cipro for CAUTI Will follow up with Dr. cMnulty as OP Transfer to TCU in the AM If he continues to be nauseated after the antibiotic finishes will DC the Effexor to see if the nausea resolves. Inpatient E&M: 77557 Subs Hosp L2
--- NOTE | 2020-10-13 16:21 | PCM.TXEXTCAR ---
- Diet 09/29/20 16:46 Diet: Regular - General Food consistency:: Regular Liquid Consistency:: Regular/Thin Type of Dietary Supplement:: Magic Cup Dessert Is pt able to select menu?: Yes Diet Comments: Built-up utensils&cups w/handles for all drinks.Magic Cup w/ L - Routine Orders/Code Status Enema Type: Fleetz Enema Frequency: Daily PRN Suppository Type: Dulcolax 10mg Suppository Frequency: Daily PRN O2 Liters per Minute: 2 O2 Frequency: PRN Keep PO Greater than or Equal to (%): 90 Code Status: DNC-A - no intubation - Wound(s) L heel Wound Type: Pressure Injury Dressing Change: hydrogel with dry dressing Posterior neck Wound Type: Surgical Incision achilles tenden Wound Type: Pressure Injury Dressing Change: santyl with dry dressing - cover Santyl with adaptic then dry dressing - Therapies Weight Bearing: Full weight bearing Physical Therapy: Eval and Treat Occupational Therapy: Eval and Treat - Problem/Diagnosis (1) H/O laminectomy Status: Acute Comment: 09/19/[address] Neves with decompression and fusion of C3-4 (2) Anterolisthesis Status: Resolved Comment: C3 on C4 - resolved with fusion 09/2020 (3) Eczema Status: Chronic Comment: dishidrotic eczema involving both hands and both feet (4) Basal cell carcinoma Status: Resolved (5) Microscopic hematuria Status: Chronic (6) Osteoarthritis Status: Chronic (7) Renal cyst Status: Chronic (8) Tobacco dependence in remission Status: Chronic Comment: quit in 1965 (9) CAD (coronary artery disease) Status: Chronic (10) Cellulitis Status: Resolved (11) Cellulitis of right lower extremity Status: Resolved (12) Right leg swelling Status: Resolved (13) Leg swelling Status: Chronic Comment: mild and due to venous insufficiency (14) PAD (peripheral artery disease) Status: Chronic (15) FDC use of drug Status: Chronic Comment: Antithrombotics/antiplatelets (16) Hyperlipidemia Status: Chronic (17) Hypertension Status: Chronic (18) S/P coronary artery stent placement Status: Chronic Comment: PCI- XU- Prox RCA, Prox-Mid RCA and RPLB (Synergy Stents) 01/11/16 @ [facility] (19) Old myocardial infarction Status: Chronic Comment: December of 2016 (20) Atherosclerotic heart disease of [place] coronary artery without angina pectoris Status: Chronic Comment: PCI- XU- Prox RCA, Prox-Mid RCA and RPLB (Synergy Stents) 01/11/16 @ [facility] (21) Paroxysmal atrial fibrillation Status: Chronic Comment: NOT on chronic anticoagulation due to hemturia, falls (22) Dilated aortic root Status: Chronic (23) Myelopathy Status: Acute (24) Pressure ulcer Status: Acute Comment: Left heel and left achilles tendon area (25) BPH (benign prostatic hyperplasia) Status: Chronic (26) Left ventricular hypertrophy Status: Chronic (27) Grade I diastolic dysfunction Status: Chronic (28) Urinary incontinence Status: Acute (29) Fecal incontinence Status: Acute (30) Urine retention Status: Chronic (31) Dehydration Status: Acute (32) Catheter-associated urinary tract infection Status: Acute Comment: Due to Proteus hauseri (33) Balanitis Status: Acute (34) Depression Status: Acute (35) Orthostatic hypotension Status: Acute (36) Bradycardia Status: Chronic (37) Normochromic normocytic anemia Status: Acute (38) Restless leg syndrome Status: Chronic (39) Generalized weakness Status: Acute - Allergies/Procedures Done in Hospital Allergies/Adverse Reactions: Allergies No Known Allergies Allergy (Verified 01/02/20 14:24) - Type of Care/Length of Stay Estimated LOS: Convalescent Care Less Than 30 days Type of Care Needed: Skilled Rehab Potential: Good Prognosis: Good - Additional Orders/Day of Discharge Additional Orders: The Marino is not to be removed. He was tried on flomax in addition to the Proscar and voiding trial was done and he still retained. He could not tolerate flomax due to hypotension and it was discontinued.....he still retained even with Proscar and flomax. Has been seen by Dr. Mcnulty and he will follow up with Dr. Mcnulty post [place] for further W/U. He can wear his shoes with therapy but at all other times the Green boot must be on. Do NOT use JAZMÍN hose or his compression sleeves on the LLE. It is the compression sleeve that lead to the petechiae on the L foot and distal LE and also to the worsening of the pressure ulcer over the L achilles. H&P will serve as current which was dated: 09/23/20 Day of Discharge: 10/14/20 - Dietary and Speech Recommendations Dietitian Recommendations/Changes: Will continue Regular diet w/ moist foods and thin liquids as ordered. Will continue Boaz BID and Magic Cup w/ lunch as tolerated. - Follow Up Care Primary Care Physician: Donte Wang MD [Primary Care Provider] - Please Follow Up With: Dr Mcnulty When: Dr Cole Neves
--- NOTE | 2020-10-13 16:54 | PCM.DC.SUM ---
Discharge Date and Diagnosis - Problem List Patient Problems: Active and Suspected Problems (Last Reviewed 10/11/20 @ 07:[address] Venu Mcnulty MD) H/O laminectomy (Acute) 09/19/[address] Neves with decompression and fusion of C3-4 Myelopathy (Acute) Pressure ulcer (Acute) Left heel and left achilles tendon area Urinary incontinence (Acute) Fecal incontinence (Acute) BPH (benign prostatic hyperplasia) (Acute) Dehydration (Acute) Catheter-associated urinary tract infection (Acute) Due to Proteus hauseri Balanitis (Acute) Depression (Acute) Orthostatic hypotension (Acute) Normochromic normocytic anemia (Acute) Generalized weakness (Acute) Date of Admission: 09/23/20 Date of Discharge: 10/13/20 - Primary Discharge Diagnosis Acute Problems: Active Problems (Last Reviewed 10/11/20 @ 07:[address] Venu Mcnulty MD) H/O laminectomy (Acute) 09/19/[address] Neves with decompression and fusion of C3-4 Myelopathy (Acute) Pressure ulcer (Acute) Left heel and left Achilles tendon area Urinary incontinence (Acute) Fecal incontinence (Acute) - resolved Dehydration (Acute) Catheter-associated urinary tract infection (Acute) Due to Proteus hauseri Balanitis (Acute) Depression (Acute) Orthostatic hypotension (Acute) Generalized weakness (Acute) - Secondary Discharge Diagnosis Chronic Problems: Chronic Problems (Last Reviewed 10/11/20 @ 07:[address] 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) Antithrombotics/antiplatelets Hyperlipidemia (Chronic) Hypertension (Chronic) S/P coronary artery stent placement (Chronic) PCI- XU- Prox RCA, Prox-Mid RCA and RPLB (Synergy Stents) 01/11/16 @ [facility] 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 Atherosclerotic heart disease of [place] coronary artery without angina pectoris (Chronic) PCI- XU- Prox RCA, Prox-Mid RCA and RPLB (Synergy Stents) 01/11/16 @ [facility] Paroxysmal atrial fibrillation (Chronic) NOT on chronic anticoagulation due to hemturia, falls Dilated aortic root (Chronic) Normochromic normocytic anemia (Acute) Hospital Course and Treatment Imaging Results: Laboratory Last Values WBC 7.4 K/mm3 (4.4-11.0) 10/13/20 05:49 RBC 3.74 M/mm3 (4.6-6.2) L 10/13/20 05:49 Hgb 11.1 g/dL (13.0-16.5) L 10/13/20 05:49 Hct 35.4 % (40-54) L 10/13/20 05:49 MCV 94.7 fL (80-94) H 10/13/20 05:49 MCH 29.7 pg (27.0-32.0) 10/13/20 05:49 MCHC 31.4 g/dL (32-36) L 10/13/20 05:49 RDW Std Deviation 48.2 fl (35.1-43.9) H 10/13/20 05:49 RDW Coeff of [place] 13.9 % (11.6-14.6) 10/13/20 05:49 Plt Count 291 K/mm3 (150-450) 10/13/20 05:49 MPV 9.6 fl (6.2-12.0) 10/13/20 05:49 Immature Gran % (Auto) 0.800 % (0.0-0.9) 10/13/20 05:49 Neut % (Auto) 72.4 % (47-70) H 10/13/20 05:49 Lymph % (Auto) 15.3 % (19-41) L 10/13/20 05:49 [place] % (Auto) 8.9 % (0-10) 10/13/20 05:49 Eos % (Auto) 2.2 % (0-5) 10/13/20 05:49 Baso % (Auto) 0.4 % (0-1) 10/13/20 05:49 Absolute Neuts (auto) 5.4 X10^3/uL (2.0-7.7) 10/13/20 05:49 Absolute Lymphs (auto) 1.13 X10^3/uL (0.83-4.51) 10/13/20 05:49 Nucleated RBC % 0 % (0-5) 10/13/20 05:49 Differential Comment SCANNED 09/23/20 14:45 Sodium 136 mmol/L (136-145) 10/13/20 05:49 Potassium 4.1 mmol/L (3.5-5.1) 10/13/20 05:49 Chloride 103 mmol/L (98-107) 10/13/20 05:49 Carbon Dioxide 29.0 mmol/L (21.0-32.0) 10/13/20 05:49 Anion Gap 4 (5-15) L 10/13/20 05:49 BUN 20 mg/dL (7-18) H 10/13/20 05:49 Creatinine 0.65 mg/dL (0.70-1.30) L 10/13/20 05:49 Estim Creat Clear Calc 58.92 ml/min 10/13/20 05:49 Est GFR (MDRD) Af Amer 151 mL/min (>60) 10/13/20 05:49 Est GFR (MDRD) Non-Af 125 mL/min (>60) 10/13/20 05:49 BUN/Creatinine Ratio 30.6 RATIO (10-20) H 10/13/20 05:49 Glucose 85 mg/dL (74-106) 10/13/20 05:49 Calcium 8.1 mg/dL (8.5-10.1) L 10/13/20 05:49 Magnesium 2.5 mg/dL (1.6-2.6) 09/23/20 14:45 Total Bilirubin 0.60 mg/dL (0.20-1.00) 09/23/20 14:45 AST 69 U/L (15-37) H 09/23/20 14:45 ALT 89 U/L (16-61) H 09/23/20 14:45 Alkaline Phosphatase 138 U/L (45-117) H 09/23/20 14:45 Total Protein 6.4 g/dL (6.4-8.2) 09/23/20 14:45 Albumin 2.5 g/dL (3.2-5.0) L 09/23/20 14:45 Globulin 3.9 g/dL (2.2-4.2) 09/23/20 14:45 Albumin/Globulin Ratio 0.6 RATIO (0.9-2.4) L 09/23/20 14:45 Urine Color Yellow (Yellow) 10/05/20 13:25 Urine Clarity Sl. Cloudy (Clear) 10/05/20 13:25 Urine pH 8.0 (5.0 - 8.0) 10/05/20 13:25 Ur Specific [place] 1.010 (1.002-1.030) 10/05/20 13:25 Urine Protein 30 mg/dl (Negative) H 10/05/20 13:25 Urine Glucose (UA) Normal mg/dl (Normal) 10/05/20 13:25 Urine Ketones Negative mg/dl (Negative) 10/05/20 13:25 Urine Occult Blood 250 /ul (Negative) H 10/05/20 13:25 Urine Nitrite Positive (Negative) H 10/05/20 13:25 Urine Bilirubin Negative mg/dL (Negative) 10/05/20 13:25 Urine Urobilinogen Normal mg/dl (Normal) 10/05/20 13:25 Ur Leukocyte Esterase 500 /ul (Negative) H 10/05/20 13:25 Urine RBC 5-10 SEEN /hpf (0-5) 10/05/20 13:25 Urine WBC 5-10 SEEN /hpf (0-5) 10/05/20 13:25 Ur Squamous Epith Cells Not Reportable 10/05/20 13:25 Triple Phos Crystals 1+ /hpf (<or=1+) 10/05/20 13:25 Amorphous Sediment 1+ URATE 09/23/20 15:48 Urine Bacteria 2+ /hpf (None Seen) 10/05/20 13:25 Urine Mucus 0 SEEN /hpf (<or=2+) 10/05/20 13:25 Microbiology 10/10/20 10:50 Penile Drainage Gram Stain - Final 10/10/20 10:50 Penile Drainage Wound Culture - Preliminary Strep anginosus Gram positive emily 10/12/20 11:42 Mucosa - Nose SARS-CoV-2 Antigen (Rapid) - Final 10/05/20 13:25 Urine, Catheterized Urine Culture - Final Proteus hauseri Consultations 10/10/20 09:47 Consult: Onc/Wound/student finance advisor Routine Comment: Reason for Consult:: ACHILLES PRESSURE INJURY Operations: None Procedures: None Summary of Care Provided: The patient is a 80 year old M with a past medical history of hypertension, hyperlipidemia, tobacco dependence in remission (quit in 1965), coronary artery disease, myocardial infarction in 2016, PTCA/XU (proximal RCA, proximal to mid RCA and RPL B on 01/11/2016 at [facility]), severe left ventricular hypertrophy, grade 1 diastolic dysfunction, preserved ejection fraction, paroxysmal atrial fibrillation (not on anticoagulation due to falls and hematuria), osteoarthritis, chronic microscopic hematuria, renal cyst and eczema who had a C3-4 decompression and laminectomy on 09/19/2020 for C3-4 anterolisthesis and cord compression causing myelopathy. He was admitted to the inpatient rehab unit at [facility] on 09/23/2020 for greater than 3 hours of therapy daily to restore him at or near his prior level of function. When Lloyd first arrived on the rehab floor he had significant generalized weakness and required maximum assistance to even roll over in bed. He was incontinent of both urine and stool at various times but the fecal incontinence has resolved. He was quite drowsy and atigued and he was unable to do the required 3 hours of therapy initially. Several sedating medications he had been taking were discontinued and he became much more alert and able to participate in 3 hours of therapy daily. He has been quite bradycardic at times and he is no longer on any medication to block the AVN. He was on Mirapex for RLS which cause bradycardia but this was discontinued and the RLS has resolved with the use of Gabapentin for radicular pain. On 10/12/20 he was nauseated, not eating and c/o lightheadedness. He was hydrated and the following morning the lightheadedness had resolved. Orthostatics were mildly positive and the HR went from 51 lying down to 71 standing. He tolerates the bradycardia while sitting and lying down and the HR increases appropriately when he is exercising. We were constantly having to encourage him to increase his fluid intake. He had to have IV fluids on a few occasions while in rehab. Lloyd had a Marino catheter at admission to the rehab unit. A UA was negative for infection at admission. He was started on Flomax in addition to Proscar and several days late the Marino was discontinued for a voiding trial. He failed the voiding trial and the Marino was reinserted. Later in the admission he developed a CAUTI secondary to Proteus hauseri and he was treated with a 7 day course of Cipro. He was seen by Dr. Mcnulty while on rehab and he is being discharged with a Marino and will follow up with Dr. Mcnulty after he is discharged from the hospital for additional work-up. Prior to DC he was able to ambulate 134 feet with a wheeled walker using a bilateral platform at MOD I. He was able to a send/descend 5 steps with 2 handrails at CGA/Min A. He was able to ascend/descend 3 steps with 1 HR at CGA. He could do 6 sit to stands in 30 secs and he cut down his time to do the TUG from 88 sec to 54.6 sec. He could eat and groom himself at supervision/set up and required moderate assistance for bathing and upper body dressing. He is still requiring maximal assistance for lower body dressing and total assistance for toileting. He requires minimal assistance for toilet transfer and tub/shower transfer. Lloyd and the TEAM agreed he would need additional PT/OT prior to attempting to go home. He was transferred to TCU on 10/14/20 for additional therapy. He will follow up with Dr. Santiago, Dr. Neves and Dr. Donte Wang following DC from TCU. He has been frustrated and depressed and feels like it has been one thing after another with no time to recover. He was started on Effexor XR 37.5 mg but, when he had nausea and decreased intake we held the Effexor due to the nausea. I think the nausea may be related to Cipro and would consider challenging him with Effexor after the Antibiotics have concluded and the nausea has resolved. He responded very well to Beclomethasone Valerate + ammonium lactate on his hands to treat the dyshidrotic eczema and at the time of discharge to TCU his hands were no longer cracked and bleeding. The steroid was discontinued and he will remain on the ammonium lactate indefinitely. Alert, oriented x3, no apparent distress, lying in bed and appears comfortable. He has better color in his face since he has been hydrated. Mucous membranes are still a little dry The incision in the posterior neck is intact with no periincisional erythema, no discharge and no increased warmth to touch surrounding the incision Lungs-diminished in the bases but clear to auscultation, no tachypnea, no conversational dyspnea Heart-regular rhythm with a bradycardic rate in the 50s while at rest. No murmurs, no gallop, no rub. Abdomen-soft, nontender, nondistended, no guarding with palpation, no masses, normal bowel sounds No significant peripheral edema, he has petechiae on the left lower extremity extending from mid calf down to the toes secondary to a compression sleeve he was wearing on his leg from above the ankle to below the knee that led to venous hypertension. He has a stage II decubitus ulcer over the left heel which is healing and there is no evidence of infection. It is currently being dressed with a Mepilex which is changed every 2 to 3 days. He developed a 'blood blister over the Achilles tendon due to pressure from the AFO to offload the heel. This developed into a dark eschar which has been scored twice in order for the Santyl to better enzymatically debride. On 10/13/20 the eschar was much softer and more superficial. There is still a small dark eschar at the proximal end of the wound and this was scored. the wound is being dressed with Santyl, covered with an adaptic to keep it from drying out and then a dry dressing. no rashes flat affect, appropriate This note was generated with [employer] dictation software. It may contain incorrect words, spelling, and punctuation that were not noted in checking the note before signing. Patient Problems: Active and Suspected Problems (Last Reviewed 10/11/20 @ 07:[address] Venu Mcnulty MD) H/O laminectomy (Acute) 09/19/[address] Neves with decompression and fusion of C3-4 Myelopathy (Acute) Pressure ulcer (Acute) Left heel and left achilles tendon area Urinary incontinence (Acute) Fecal incontinence (Acute) BPH (benign prostatic hyperplasia) (Acute) Dehydration (Acute) Catheter-associated urinary tract infection (Acute) Due to Proteus hauseri Balanitis (Acute) Depression (Acute) Orthostatic hypotension (Acute) Normochromic normocytic anemia (Acute) Generalized weakness (Acute) - Physical Exam Vitals/I&O's: Vital Signs Temp Pulse Resp BP Pulse Ox 97.4 F L 51 L 18 105/61 95 10/13/20 07:48 10/13/20 07:48 10/13/20 07:48 10/13/20 07:48 10/13/20 07:48 Oxygen Flow Rate (L/min) 2 Oxygen Delivery Method Room Air Weight: 213 lb 6.519 oz Body Mass Index (BMI) 31.0 Orthostatic Vital Signs Start: 09/30/20 05:38 Freq: Status: Active Protocol: Activity Type Activity Date Activity User E-Sign Co-Sign Detail Recorded Client Recorded Date Recorded By Document 10/13/20 06:00 RMB [id number] 10/13/20 07:35 RMB 10/13/20 06:00 Orthostatic Vitals Standing -Blood Pressure (90/60-120/80 mm Hg) 102/47 L -Extremity Use Left Arm -Pulse Rate (60-100 beats/min) 71 Sitting -Blood Pressure (90/60-120/80 mm Hg) 103/59 L -Extremity Use Left Arm -Pulse Rate (60-100 beats/min) 70 Lying -Blood Pressure (90/60-120/80 mm Hg) 105/61 -Extremity Use Left Arm -Pulse Rate (60-100 beats/min) 51 L Intake and Output for Last 24 Hours 10/11/20 10/12/20 10/13/20 23:59 23:59 23:59 Intake Total 1180 / 1180 1511.25 / 1511.25 1790 / 1790 Output Total 1400 / 1400 825 / 825 700 / 700 Balance -220 / -220 686.25 / 686.25 1090 / 1090 Microbiology Past 72 Hours 10/10/20 10:50 Penile Drainage Gram Stain - Final 10/10/20 10:50 Penile Drainage Wound Culture - Preliminary Strep anginosus Gram positive emily 10/12/20 11:42 Mucosa - Nose SARS-CoV-2 Antigen (Rapid) - Final Laboratory Results 10/13/20 05:49: Sodium 136, Potassium 4.1, Chloride 103, Carbon Dioxide 29.0, Anion Gap 4 L, BUN 20 H, Creatinine 0.65 L, Estim Creat Clear Calc 58.92, Est GFR (MDRD) Af Amer 151, Est GFR (MDRD) Non-Af 125, BUN/Creatinine Ratio 30.6 H, Glucose 85, Calcium 8.1 L 10/13/20 05:49: WBC 7.4, RBC 3.74 L, Hgb 11.1 L, Hct 35.4 L, MCV 94.7 H, MCH 29.7, MCHC 31.4 L, RDW Std Deviation 48.2 H, RDW Coeff of [place] 13.9, Plt Count 291, MPV 9.6, Immature Gran % (Auto) 0.800, Neut % (Auto) 72.4 H, Lymph % (Auto) 15.3 L, [place] % (Auto) 8.9, Eos % (Auto) 2.2, Baso % (Auto) 0.4, Absolute Neuts (auto) 5.4, Absolute Lymphs (auto) 1.13, Nucleated RBC % 0 Current Medications Acetaminophen (Acetaminophen 500 Mg Tablet) 1,000 mg PO Q8 [facility] Last Admin: 10/13/20 13:19 Dose: 1,000 mg Documented by: Al Hydroxide/Mg Hydroxide (Mag Hydrox/Al Hydrox/Simeth 30 Ml Udc) 30 ml PO Q6H PRN PRN PRN Reason: INDIGESTION Amlodipine Besylate (Amlodipine 2.5 Mg Tablet) 2.5 mg PO DAILY [facility] Last Admin: 10/13/20 08:06 Dose: 2.5 mg Documented by: Aspirin (Aspirin E.C. 81 Mg Tablet) 81 mg PO DAILYCM [facility] Last Admin: 10/13/20 08:03 Dose: 81 mg Documented by: Atorvastatin Calcium (Atorvastatin Calcium 80 Mg Tablet) 80 mg PO QHS [facility] Last Admin: 10/12/20 20:31 Dose: 80 mg Documented by: Betamethasone Valerate (Betamethasone Valerate 1 Tube) 1 applic TOPICAL BID [facility]; Protocol Last Admin: 10/13/20 08:07 Dose: 1 applic Documented by: Bisacodyl (Bisacodyl 10 Mg Suppository) 10 mg RC .PRN X 1 PRN PRN Reason: Constipation Ciprofloxacin HCl (Ciprofloxacin 500 Mg Tablet) 500 mg PO BID [facility] Stop: 10/15/20 10:01 Last Admin: 10/13/20 08:04 Dose: 500 mg Documented by: Compound Med (Arthritis Pain Compound 60 Click Tube) 0 click TOPICAL TID [facility]; Protocol Last Admin: 10/13/20 13:20 Dose: 3 click Documented by: Finasteride (Finasteride 5 Mg Tablet) 5 mg PO DAILY [facility] Last Admin: 10/13/20 08:06 Dose: 5 mg Documented by: Fluconazole (Fluconazole 150 Mg Tablet) 150 mg PO Q72H [facility] Stop: 10/16/20 11:01 Last Admin: 10/13/20 10:54 Dose: 150 mg Documented by: Gabapentin (Gabapentin 100 Mg Capsule) 100 mg PO BIDCM [facility] Last Admin: 10/13/20 16:22 Dose: 100 mg Documented by: Gabapentin (Gabapentin 100 Mg Capsule) 200 mg PO 1900,2200 [facility] Last Admin: 10/12/20 21:58 Dose: 200 mg Documented by: Heparin Sodium (Porcine) (Heparin Injection (Vial) 5,000 Unit/Ml Vial) 5,000 unit SC Q12 [facility] Last Admin: 10/13/20 08:04 Dose: 5,000 unit Documented by: L-Arginine/L-Glutamine/Calcium HMB ([place] (Unflavored) Packet) [facility] Last Admin: 10/13/20 16:22 Dose: Not Given Documented by: Lactic Acid (Ammonium Lactate 225 Gm Bottle) 1 applic TOPICAL BID [facility]; Protocol Last Admin: 10/13/20 08:06 Dose: 1 applic Documented by: Magnesium Hydroxide (Magnesium Hydroxide 30 Ml Udc) 30 ml PO .PRN X 1 PRN PRN Reason: Constipation Multi-Ingredient Cream (Petrolatum,White 3.75gm Opth.Tube) 1 applic OPHTHALMIC PRN PRN PRN Reason: dry eyes Nystatin (Nystatin Powder 15gm Bottle) 1 applic TOPICAL BID@0600,2200 [facility]; Protocol Last Admin: 10/13/20 05:47 Dose: 1 appful Documented by: Prochlorperazine Maleate (Prochlorperazine 5 Mg Tablet) 5 mg PO Q6H PRN PRN PRN Reason: NAUSEA/VOMITING Last Admin: 10/13/20 13:19 Dose: 5 mg Documented by: Senna/Docusate Sodium (Senna/Docusate Sodium 1 Tablet) 2 tablet PO BID [facility] Last Admin: 10/13/20 08:07 Dose: 2 tablet Documented by: Sodium Chloride (Sodium Chloride 0.65% 1 [place].Btl) 2 spray NASAL BID PRN PRN PRN Reason: NASAL DRYNESS Sodium Chloride (0.9% Saline Lock 10 Ml Syringe) 10 - 40 ml IV UD PRN PRN Reason: SALINE FLUSH Last Admin: 10/12/20 12:35 Dose: 10 ml Documented by: Throat Lozenges (Benzocaine/Menthol 1 Lozenge) 1 lozenge MUCOUS MEM Q2H PRN PRN PRN Reason: SORE THROAT Tizanidine HCl (Tizanidine Hcl 2 Mg Tablet) 2 mg PO Q12H PRN PRN PRN Reason: muscle spasm lasting more than 5 minutes Last Admin: 10/12/20 13:59 Dose: 2 mg Documented by: Tramadol HCl (Tramadol 50 Mg Tablet) 25 mg PO Q6H PRN PRN PRN Reason: Pain Score 4-5 Last Admin: 10/11/20 22:37 Dose: 25 mg Documented by: Tramadol HCl (Tramadol 50 Mg Tablet) 25 mg PO 2100 [facility] Last Admin: 10/12/20 20:28 Dose: 25 mg Documented by: Venlafaxine HCl (Venlafaxine Xr 37.5 Mg Capsule) 37.5 mg PO DAILY [facility] Last Admin: 10/12/20 08:25 Dose: 37.5 mg Documented by: Home Medications: Medications to take at Discharge Aspirin [Adult Low Dose Aspirin EC] 81 mg PO DAILY 01/30/16 finasteride 5 mg tablet 5 mg PO DAILY 07/18/17 acetaminophen 500 mg tablet 500 mg PO Q4H PRN 09/25/18 Atorvastatin Calcium [Lipitor] 80 mg PO QHS 09/23/20 Amlodipine [Norvasc] 2.5 mg PO DAILY tablet 10/13/20 Ammonium Lactate 225 gm TP BID #1 lotion 10/13/20 Arthritis Pain Compound 0 click TOPICAL TID gm 10/13/20 Ciprofloxacin [Cipro] 500 mg PO BID #4 tablet 10/13/20 Fluconazole 150 mg PO X1 #1 tablet 10/13/20 Gabapentin [Neurontin] 100 mg PO BIDCM capsule 10/13/20 Gabapentin [Neurontin] 200 mg PO 1900,2200 capsule 10/13/20 Heparin Injection (Vial) [Heparin Na] 5,000 unit SC Q12 vial 10/13/20 Boaz (unflavored) [Boaz Packet] 1 packet PO BIDCM packet 10/13/20 Mag Hydrox/Al Hydrox/Simeth [Mylanta II] 30 ml PO Q6H PRN PRN udc 10/13/20 Magnesium Hydroxide [Milk Of Magnesia] 30 ml PO .PRN X 1 PRN udc 10/13/20 Nystatin Powder [Mycostatin Powder] 1 applic TOPICAL BID@0600,2200 bottle 10/13/20 Senna/Docusate Sodium [Senokot-S] 2 tablet PO BID tablet 10/13/20 Sodium Chloride 0.65% [[place] Nasal [place]] 2 spray NASAL BID PRN PRN spray.btl 10/13/20 Tizanidine HCl [Zanaflex] 2 mg PO Q12H PRN PRN tablet 10/13/20 proCHLORPERazine tablet [Compazine tablet] 5 mg PO Q6H PRN PRN tablet 10/13/20 traMADol [Ultram] 25 mg PO 2100 tablet 10/13/20 traMADol [Ultram] 25 mg PO Q6H PRN PRN tablet 10/13/20 Following Prescriptions Were Given to Patient: Ammonium Lactate 225 gm TP BID #1 lotion Primary Care Physician: Donte Wang MD [Primary Care Provider] - Please Follow Up With: Dr Mcnulty When: Dr Cole Neves Disposition: [facility] facility - Transitional care unit Minutes spent on discharge:: 45 Patient Condition:: Stable Medical Necessity - Tobacco Use Smoking Status: Former smoker Tobacco Use: Non-smoker Meaningful Use Info Meaningful Use Diagnoses (Choose all that apply): None applicable Inpatient E&M: 19247 Disch Hosp
[2020-10-13] MEDS: Gabapentin 100 MG Capsule 200 MG PO ×2 (19:00→21:19)
[2020-10-13] MEDS: traMADol 50 MG Tablet 25 MG PO (21:17)
[2020-10-13] MEDS: Atorvastatin Calcium 80 MG Tablet PO (21:18)
[2020-10-13 22:00] VITALS: BP 136/75; PULSE 63; RESP 16; TEMP 36.5; O2SAT 98
[2020-10-14] MEDS: Acetaminophen 500 MG Tablet 1000 MG PO ×2 (05:12→13:19)
[2020-10-14] MEDS: Arthritis Pain Compound 60 CLICK TUBE TOPICAL ×2 (05:12→13:19)
[2020-10-14] MEDS: proCHLORPERazine 5 MG Tablet PO (05:15)
[2020-10-14] MEDS: Nystatin Powder 15gm Bottle 1 APPLIC TOPICAL (05:16)
[2020-10-14] MEDS: Juven (unflavored) Packet 1 PACKET PO (07:54)
[2020-10-14] MEDS: Ciprofloxacin 500 MG Tablet PO (07:56)
[2020-10-14] MEDS: Aspirin E.C. 81 MG Tablet PO (07:56)
[2020-10-14] MEDS: Gabapentin 100 MG Capsule PO (07:56)
[2020-10-14] MEDS: Ammonium Lactate 225 gm Bottle 1 APPLIC TOPICAL (07:57)
[2020-10-14] MEDS: amLODIPine 2.5 MG Tablet PO (07:57)
[2020-10-14] MEDS: Heparin Injection (Vial) 5,000 UNIT/ML VIAL 5000 UNIT SC (07:57)
[2020-10-14] MEDS: Finasteride 5 MG Tablet PO (07:57)
[2020-10-14] MEDS: Senna/Docusate Sodium 1 Tablet 2 TABLET PO (07:58)
[2020-10-14 08:07] VITALS: BP 110/53; PULSE 59; RESP 16; TEMP 36.4; O2SAT 94
[2020-10-14] MEDS: NYSTATIN 500,000 UNIT/5 ML UDC 500000 UNIT PO (13:18)
[2020-10-14 13:35] VITALS: BP 110/53; PULSE 59; RESP 16; TEMP 36.4; O2SAT 94
--- NOTE | 2020-10-14 13:38 | NURSING ---
Discharged to report called to Yas DRUMMOND
== END 2020-10-14 13:39 | disposition skilled nursing facility (03) | DRG 464 ==
PROVIDERS: Admitting Provider Internal Medicine; PCP Family Medicine; Visit Provider Internal Medicine
DX: Z47.89 Encounter for other orthopedic aftercare (principal); G95.20 Unspecified cord compression; N39.0 Urinary tract infection, site not specified; T83.518A Infection and inflammatory reaction due to other urinary catheter, initial encounter; Z16.19 Resistance to other specified beta lactam antibiotics; Z16.11 Resistance to penicillins; M43.12 Spondylolisthesis, cervical region; M19.90 Unspecified osteoarthritis, unspecified site; I25.10 Atherosclerotic heart disease of native coronary artery without angina pectoris; I73.9 Peripheral vascular disease, unspecified; E78.5 Hyperlipidemia, unspecified; I11.9 Hypertensive heart disease without heart failure; I25.2 Old myocardial infarction; I48.0 Paroxysmal atrial fibrillation; L89.622 Pressure ulcer of left heel, stage 2; N40.1 Benign prostatic hyperplasia with lower urinary tract symptoms; R31.29 Other microscopic hematuria; G25.81 Restless legs syndrome; D64.9 Anemia, unspecified; Y84.6 Urinary catheterization as the cause of abnormal reaction of the patient, or of later complication, without mention of misadventure at the time of the procedure; B96.4 Proteus (mirabilis) (morganii) as the cause of diseases classified elsewhere; N48.1 Balanitis; Z87.891 Personal history of nicotine dependence; Z95.5 Presence of coronary angioplasty implant and graft; Z79.82 Long term (current) use of aspirin; Z79.899 Other long term (current) drug therapy; Z79.02 Long term (current) use of antithrombotics/antiplatelets
CPT/HCPCS: 36415; 80048; 80053; 81001; 83735; 85025; 87070; 87077; 87086; 87088; 87186; 87205; 87426; 93005; 97110; 97116; 97162; 97166; 97530; 97535; 97802; 97803; J7030; A4216

== ENCOUNTER 2020-10-14 13:53 | Inpatient (IN) | payer MEDICARE, BC, SELFPAY ==
[2020-09-23 11:05] VITALS: BMI 31.0
[2020-10-14 14:22] VITALS: BMI 31.3
[2020-10-14 14:25] VITALS: BP 105/58; PULSE 62; RESP 17; TEMP 36.3; O2SAT 96
[2020-10-14 14:30] VITALS: BMI 31.4
--- NOTE | 2020-10-14 14:41 | NURSING ---
daughter, Arti will bring in [employer] vaccine card for staff to copy.
--- NOTE | 2020-10-14 15:33 | PCM.HP.STD ---
Problem List (1) Debility Status: Acute (2) Stenosis of cervical spine with myelopathy Status: Acute (3) Cervical radiculopathy Status: Acute (4) Urinary tract infection Status: Acute (5) History of basal cell cancer Status: Chronic (6) Peripheral arterial occlusive disease Status: Chronic (7) Atrial fibrillation Status: Chronic (8) CAD (coronary artery disease) Status: Chronic (9) Osteoarthritis Status: Chronic (10) BPH (benign prostatic hyperplasia) Status: Chronic (11) Urine retention Status: Chronic (12) Restless leg syndrome Status: Chronic (13) Hyperlipidemia Status: Chronic Qualifiers: (14) Hypertension Status: Chronic Qualifiers: History of Present Illness Date of Admission: 10/14/20 Chief Complaint: Here for rehabilitation, strengthening, prior to discharge home alone. 09/19/2020 The patient is a 80 year old Male with below past medical history underwent C3-4 decompression, laminectomy at [facility]. 09/23/2020 Admit to Inpatient Rehabilitation Unit. PT/OT/ST. Subcutaneous heparin for DVT prophylaxis. 09/24/2020 Add Tamsulosin 0.4MG to Finasteride 5MG for BPH. 09/26/2020 Voiding trial 5-7 days after starting Tamsulosin. 09/29/2020 Stop Seroquel, Stop Mirapex, Stop Melatonin. Change Tizanidine to 2MG PO Q12H PRN. Start Gabapentin for radicular pain, restless leg syndrome. Decrease Tramadol dose, frequency. Aspirin, Plavix for atrial fibrillation, no anticoagulation due to risk of falls. 10/03/2020 Gabapentin helpful. Remove Chaparro Catheter. 10/05/2020 Chaparro reinserted for urinary retention. 10/06/2020 Adjust gabapentin timing. Will discharge with chaparro catheter, follow up with Dr. Mcnulty. Cefadroxil for urinary tract infection pending urine culture results. 10/08/2020 Urine culture growing Proteus Hauseri, antibiotic changed from Cefadroxil to Cipro for 7 day course. 10/10/2020 Diflucan 150MG Q72H x 3 doses for yeast balanitis. Rx Effexor 37.5MG daily for depression, pain control. 10/11/2020 Urology consulted for urinary retention, failed Tamsulosin, Finasteride. Patient unable intermittent self cath. Consider outpatient cystoscopy, urodynamics, TURP as outpatient. 10/14/2020 Admit to TCU with debility, here for rehabilitation, strengthening, prior to discharge home alone. Past Medical History Past Medical History (Chronic Problems): Chronic Problems (Last Reviewed 10/11/20 @ 07:[address] 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 BPH (benign prostatic hyperplasia) (Chronic) Left ventricular hypertrophy (Chronic) Grade I diastolic dysfunction (Chronic) Urine retention (Chronic) Bradycardia (Chronic) Restless leg syndrome (Chronic) History of basal cell cancer (Chronic) Peripheral arterial occlusive disease (Chronic) Atrial fibrillation (Chronic) PAD (peripheral artery disease) (Chronic) detention use of drug (Chronic) Antithrombotics/antiplatelets Hyperlipidemia (Chronic) Hypertension (Chronic) S/P coronary artery stent placement (Chronic) PCI- XU- Prox RCA, Prox-Mid RCA and RPLB (Synergy Stents) 01/11/16 @ [facility] 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) Z79.899 Antithrombotics/antiplatelets Hyperlipidemia (Chronic) E78.5 Hypertension (Chronic) I10 Old myocardial infarction (Chronic) I25.2 December of 2016 Atherosclerotic heart disease of [place] coronary artery without angina pectoris (Chronic) I25.10 PCI- XU- Prox RCA, Prox-Mid RCA and RPLB (Synergy Stents) 01/11/16 @ [facility] Paroxysmal atrial fibrillation (Chronic) I48.0 NOT on chronic anticoagulation due to hemturia, falls Dilated aortic root (Chronic) I77.810 Allergies No Known Allergies Allergy (Verified 01/02/20 14:24) Home Medications: Ambulatory Orders Medication Instructions Recorded Aspirin [Adult Low Dose Aspirin EC] 81 mg PO DAILY 01/30/16 finasteride 5 mg tablet 5 mg PO DAILY 07/18/17 acetaminophen 500 mg tablet 500 mg PO Q4H PRN 09/25/18 Atorvastatin Calcium [Lipitor] 80 mg PO QHS 09/23/20 Mag Hydrox/Al Hydrox/Simeth 30 ml PO Q6H PRN PRN udc 10/13/20 [Mylanta II] Magnesium Hydroxide [Milk Of 30 ml PO .PRN X 1 PRN udc 10/13/20 Magnesia] Sodium Chloride 0.65% [[place] Nasal 2 spray NASAL BID PRN PRN 10/13/20 Neal] spray.btl Tizanidine HCl [Zanaflex] 2 mg PO Q12H PRN PRN tablet 10/13/20 proCHLORPERazine tablet [Compazine 5 mg PO Q6H PRN PRN tablet 10/13/20 tablet] traMADol [Ultram] 25 mg PO Q6H PRN PRN tablet 10/13/20 Amlodipine [Norvasc] 2.5 mg PO DAILY 10/14/20 Ammonium Lactate 225 gm TP BID 10/14/20 Arthritis Pain Compound 0 click TOPICAL TID 10/14/20 Ciprofloxacin [Cipro] 500 mg PO BID 10/14/20 Fluconazole 150 mg PO X1 10/14/20 Gabapentin [Neurontin] 100 mg PO BIDCM 10/14/20 Gabapentin [Neurontin] 200 mg PO 1900,2200 10/14/20 Heparin Injection (Vial) [Heparin 5,000 unit SC Q12 10/14/20 Na] Boaz (unflavored) [Boaz Packet] 1 packet PO BIDCM 10/14/20 Nystatin Powder [Mycostatin Powder] 1 applic TOPICAL BID@0600,2200 10/14/20 Senna/Docusate Sodium [Senokot-S] 2 tablet PO BID 10/14/20 traMADol [Ultram] 25 mg PO 2100 10/14/20 Surgical History: Surgical History (Last Reviewed 10/11/20 @ 07:[address] Venu Mcnulty MD) S/P coronary artery stent placement (Chronic) Z95.5 PCI- XU- Prox RCA, Prox-Mid RCA and RPLB (Synergy Stents) 01/11/16 @ [facility] History of knee surgery Z98.890 bilat History of pilonidal cyst Z87.2 S/P rotator cuff repair Z98.890 bilat Surgical History: angioplasty - cardiac stent., rotator cuff repair, - - decompression and fusion of C3-4 on 09/19/[address] Neves from [facility]. Psychiatric History: No pertinent psych hx Lives: Alone Smoking Status: Former smoker - Quit 1965. Tobacco Use: Non-smoker Alcohol: Occasional - Alcohol on weekends. Drugs: None - *Family History Paternal Family History: Family History (Last Reviewed 10/11/20 @ 07:[address] Venu Mcnulty MD) Mother CHF (congestive heart failure) History Items: - - emphysema Review of Systems Constitutional: Denies: Chills, Fever, Weight Change HEENT: Denies: Head Aches, Sinus Congestion, Sinus Drainage Cardiovascular: Denies: Chest Pain, Palpitations Respiratory: Denies: Cough, Shortness of breath at rest, Sputum production Gastrointestinal: Denies: Abdominal Pain, Nausea, Vomiting Genitourinary: Denies: Dysuria Musculoskeletal: Denies: Joint Pain, Joint Tenderness Skin: Denies: Rash, Wounds Neurological: Denies: Numbness, Tingling, Focal weakness Psychiatric: Denies: Anxiety, Depression, Homicidal Ideations, Suicidal Ideations Hematologic/ Lymphatic: Denies: Easy Bruising, Easy Bleeding VTE Information - Inpt Only VTE Present on Admission: No VTE Mechan Device Prophylaxis: Knee High JAZMÍN Hose VTE Pharm Prophylaxis ordered?: Yes Patient Problems: Active and Suspected Problems (Last Reviewed 10/11/20 @ 07:[address] Venu Mcnulty MD) Debility (Acute) Stenosis of cervical spine with myelopathy (Acute) Cervical radiculopathy (Acute) Urinary tract infection (Acute) - Physical Exam Vitals/I&O's: Vital Signs Temp Pulse Resp BP Pulse Ox 97.3 F L 62 17 105/58 L 96 10/14/20 14:25 10/14/20 14:25 10/14/20 14:25 10/14/20 14:25 10/14/20 14:25 Oxygen Delivery Method Room Air Weight: 96.3 kg Body Mass Index (BMI) 31.3 General: Alert, Oriented x3, Cooperative HEENT: Atraumatic, PERRLA, EOMI, Normocephalic Neck: Supple, No JVD, Negative Carotid Bruits, - - Neck brace. Lungs: Clear to auscultation, Normal air movement Cardiovascular: Regular rate, No murmurs Abdomen: Bowel Sounds Present, Soft, Non Tender Extremities: No edema, Capillary Refill Less than 3 Seconds Skin: No rashes, No breakdown Musculoskeletal: No Tenderness to Palpation of Joints or Extremities Neurological: Cranial nerves II-XII grossly intact Psych/Mental Status: Normal Affect, Appropriate Current Medications Acetaminophen (Acetaminophen 500 Mg Tablet) 500 mg PO Q4H PRN PRN Reason: PAIN/FEVER Al Hydroxide/Mg Hydroxide (Mag Hydrox/Al Hydrox/Simeth 30 Ml Udc) 30 ml PO Q6H PRN PRN PRN Reason: INDIGESTION Amlodipine Besylate (Amlodipine 2.5 Mg Tablet) 2.5 mg PO DAILY [facility] Aspirin (Aspirin E.C. 81 Mg Tablet) 81 mg PO DAILY@0800 [facility] Atorvastatin Calcium (Atorvastatin Calcium 80 Mg Tablet) 80 mg PO QHS [facility] Bisacodyl (Bisacodyl 10 Mg Suppository) 10 mg RC DAILY PRN PRN PRN Reason: Constipation Ciprofloxacin HCl (Ciprofloxacin 500 Mg Tablet) 500 mg PO BID [facility] Stop: 10/15/20 09:00 Compound Med (Arthritis Pain Compound 60 Click Tube) 0 click TOPICAL TID [facility]; Protocol Finasteride (Finasteride 5 Mg Tablet) 5 mg PO DAILY [facility] Fluconazole (Fluconazole 150 Mg Tablet) 150 mg PO X1 [facility] Stop: 10/16/20 08:01 Gabapentin (Gabapentin 100 Mg Capsule) 100 mg PO BIDCM [facility] Gabapentin (Gabapentin 100 Mg Capsule) 200 mg PO 1900,2200 [facility] Heparin Sodium (Porcine) (Heparin Injection (Vial) 5,000 Unit/Ml Vial) 5,000 unit SC Q12 [facility] L-Arginine/L-Glutamine/Calcium HMB (Boaz (Unflavored) Packet) 1 packet PO BIDCM [facility] Lactic Acid (Ammonium Lactate 225 Gm Bottle) 1 applic TOPICAL BID [facility] Magnesium Hydroxide (Magnesium Hydroxide 30 Ml Udc) 30 ml PO .PRN X 1 PRN PRN Reason: Constipation Nystatin (Nystatin Powder 15gm Bottle) 1 applic TOPICAL BID@0600,2200 [facility]; Protocol Prochlorperazine Maleate (Prochlorperazine 5 Mg Tablet) 5 mg PO Q6H PRN PRN PRN Reason: NAUSEA/VOMITING Senna/Docusate Sodium (Senna/Docusate Sodium 1 Tablet) 2 tablet PO BID [facility] Sodium Chloride (Sodium Chloride 0.65% 1 Neal Neal.Btl) 2 spray NASAL BID PRN PRN PRN Reason: NASAL DRYNESS Tizanidine HCl (Tizanidine Hcl 2 Mg Tablet) 2 mg PO Q12H PRN PRN PRN Reason: muscle spasm lasting more than 5 minutes Tramadol HCl (Tramadol 50 Mg Tablet) 25 mg PO 2100 [facility] Tramadol HCl (Tramadol 50 Mg Tablet) 25 mg PO Q6H PRN PRN PRN Reason: Pain Score 4-10 Tuberculin PPD (Tuberculin,Purif.Prot.Deriv. 50 Tu/Ml Vial) 5 tu ID X1 ONE Stop: 10/15/20 10:01 Tuberculin PPD (Tuberculin,Purif.Prot.Deriv. 50 Tu/Ml Vial) 5 tu ID X1 ONE Stop: 10/22/20 10:01 Assessment/Plan All Active Problems (Last Reviewed 10/11/20 @ 07:[address] Venu Mcnulty MD) H/O laminectomy (Acute) Anterolisthesis (Resolved) Myelopathy (Acute) Pressure ulcer (Acute) Urinary incontinence (Acute) Fecal incontinence (Acute) BPH (benign prostatic hyperplasia) (Acute) Dehydration (Acute) Catheter-associated urinary tract infection (Acute) Balanitis (Acute) Depression (Acute) Orthostatic hypotension (Acute) Normochromic normocytic anemia (Acute) Generalized weakness (Acute) Debility (Acute) Stenosis of cervical spine with myelopathy (Acute) Cervical radiculopathy (Acute) Urinary tract infection (Acute) Basal cell carcinoma (Resolved) Cellulitis (Resolved) Cellulitis of right lower extremity (Resolved) Right leg swelling (Resolved) 80 year old male with below past medical history hospitalized for cervical spinal stenosis with myelopathy, underwent C3-4 decompression, laminectomy 09/19/2020, admitted to , then transferred to TCU with debility, here for rehabilitation, strengthening, prior to discharge home alone. Debility - PT/OT. Pain - Tylenol 500MG Q4H PRN, Tramadol 25MG Q6H PRN, 75MG Q9PM, Arthritis pain compound topical TID. Bowel - Senna/colace 2 tablets BID, MOM 30ML daily PRN, Dulcolax 10MG [place] daily PRN. Adult immunization - Administer Prevnar 13, Pneumovax 23, Fluzone, COVID19 vaccine as appropriate. DVT prophylaxis - Heparin 5000 units SC Q12H. Hypertension - Amlodipine 2.5MG daily. Dyshidrotic eczema - Ammonium Lactate topical BID bilateral hands, feet. Atrial fibrillation - Aspirin 81MG daily, no anticoagulation due to risk of falls. Hyperlipidemia - Atorvastatin 80MG QHS. P. Hauseri UTI - Cipro 500MG BID thru 10/15/2020. BPH - Finasteride 5MG daily, indwelling chaparro catheter, Dr. Mcnulty. Yeast Balanitis - Fluconazole 150MG PO x 1 more dose. Neuropathic pain - Gabapentin 100MG, 200MG, 100MG, 200MG. Nutrition - Boaz 1 packet BID. Indigestion - Mylanta II 30ML Q6H PRN. Tinea Corporis - Nystatin powder topical BID. Nausea - Compazine 5MG Q6H PRN. Dry nares - Sodium Chloride 2 spray nasal PRN. Muscle spasm - Tizanidine 2MG Q12H PRN.
[2020-10-14] MEDS: Juven (unflavored) Packet 1 PACKET PO (17:46)
[2020-10-14] MEDS: Gabapentin 100 MG Capsule PO (17:47)
[2020-10-14] MEDS: Ciprofloxacin 500 MG Tablet PO (17:47)
[2020-10-14] MEDS: Senna/Docusate Sodium 1 Tablet 2 TABLET PO (17:48)
[2020-10-14] MEDS: Heparin Injection (Vial) 5,000 UNIT/ML VIAL 5000 UNIT SC (17:48)
[2020-10-14] MEDS: Gabapentin 100 MG Capsule 200 MG PO ×2 (19:51→22:03)
[2020-10-14] MEDS: traMADol 50 MG Tablet 25 MG PO (21:55)
[2020-10-14] MEDS: Ammonium Lactate 225 gm Bottle 1 APPLIC TOPICAL (21:57)
[2020-10-14] MEDS: Nystatin Powder 15gm Bottle 1 APPLIC TOPICAL (22:02)
[2020-10-14] MEDS: Atorvastatin Calcium 80 MG Tablet PO (22:02)
[2020-10-14] MEDS: Arthritis Pain Compound 60 CLICK TUBE TOPICAL (22:07)
[2020-10-15] MEDS: Heparin Injection (Vial) 5,000 UNIT/ML VIAL 5000 UNIT SC ×2 (07:00→17:32)
[2020-10-15] MEDS: Senna/Docusate Sodium 1 Tablet 2 TABLET PO ×2 (07:00→17:31)
[2020-10-15] MEDS: Ciprofloxacin 500 MG Tablet PO (07:00)
[2020-10-15] MEDS: Gabapentin 100 MG Capsule PO ×2 (07:01→17:32)
[2020-10-15] MEDS: amLODIPine 2.5 MG Tablet PO (07:01)
[2020-10-15] MEDS: Finasteride 5 MG Tablet PO (07:01)
[2020-10-15] MEDS: Arthritis Pain Compound 60 CLICK TUBE TOPICAL ×3 (07:02→22:00)
[2020-10-15] MEDS: Nystatin Powder 15gm Bottle 1 APPLIC TOPICAL ×2 (07:03→22:04)
[2020-10-15 07:30] VITALS: O2SAT 94
[2020-10-15 07:43] VITALS: BP 112/59; PULSE 60; RESP 16; TEMP 36.8; O2SAT 94
[2020-10-15] MEDS: Collagenase 30gm Tube 1 APPLIC TOPICAL (07:45)
[2020-10-15 08:21] LABS: Absolute Lymphocyte Count 0.99 X10^3/uL (0.83-4.51); Absolute Neutrophil Count 3.5 X10^3/uL (2.0-7.7); Basophil# 0.01 X10^3/uL; Basophil% 0.2 % (0-1); Eosinophil# 0.16 X10^3/uL; Eosinophils% 3.1 % (0-5); Hematocrit 37.8 % (40-54); Hemoglobin 11.6 g/dL (13.0-16.5); Lymphocyte # 0.99 X10^3/ul (0.83-4.51); Mean Corp Hgb Conc 30.7 g/dL (32-36); Mean Corpuscular Hgb 28.9 pg (27.0-32.0); Mean Platelet Vol. 10.2 fl (6.2-12.0); Monocyte# 0.52 X10^3/uL; NRBC Flagged by Analyzer 0 % (0-5); Neutrophil # 3.47 X10^3/uL (2.7-7.7); Neutrophil % 66.5 % (47-70); Platelet Count 299 K/mm3 (150-450); RBC Distribution Width CV 14.1 % (11.6-14.6); RBC Distribution Width SD 47.9 fl (35.1-43.9); Red Blood Count 4.02 M/mm3 (4.6-6.2); White Blood Count 5.2 K/mm3 (4.4-11.0)
[2020-10-15 08:44] LABS: Anion Gap 5 (5-15); BUN 22 mg/dL (7-18); BUN/Creat Ratio 33.4 RATIO (10-20); Calcium,Total 8.3 mg/dL (8.5-10.1); Chloride 104 mmol/L (98-107); Creatinine, Serum 0.66 mg/dL (0.70-1.30); EST Glomerular Filtration Rate 124 mL/min (>60); Est Glom Filt Rate - Afr Amer 150 mL/min (>60); Estimated Creatinine Clearance 58.92 ml/min; Glucose 91 mg/dL (74-106); Sodium Level 137 mmol/L (136-145)
[2020-10-15] MEDS: Aspirin E.C. 81 MG Tablet PO (09:02)
[2020-10-15] MEDS: Juven (unflavored) Packet 1 PACKET PO (09:02)
[2020-10-15] MEDS: Tuberculin,Purif.prot.deriv. 50 TU/ML Vial 5 ML ID (09:03)
[2020-10-15 14:29] VITALS: BP 104/62; PULSE 64; RESP 16; TEMP 36.3; O2SAT 97
--- NOTE | 2020-10-15 15:13 | NURSING ---
Daughter here to visit updated.
--- NOTE | 2020-10-15 17:47 | NURSING ---
Pt C/O of nausea and not wanting to eat dinner. Offered pt prn medication for nausea and pt refused. Also, offered saltines and saniya geo pt stated he will try that first and let me know if he would like the medication. Will continue to monitor pt call light within reach.
[2020-10-15] MEDS: Gabapentin 100 MG Capsule 200 MG PO ×2 (19:52→21:59)
[2020-10-15] MEDS: traMADol 50 MG Tablet 25 MG PO (19:57)
[2020-10-15] MEDS: Atorvastatin Calcium 80 MG Tablet PO (21:59)
[2020-10-15] MEDS: Ammonium Lactate 225 gm Bottle 1 APPLIC TOPICAL (22:02)
[2020-10-16] MEDS: Acetaminophen 500 MG Tablet PO (02:27)
[2020-10-16 04:29] VITALS: BP 119/69; PULSE 68; RESP 18; TEMP 35.8; O2SAT 93
[2020-10-16] MEDS: Senna/Docusate Sodium 1 Tablet 2 TABLET PO ×2 (06:14→17:12)
[2020-10-16] MEDS: amLODIPine 2.5 MG Tablet PO (06:14)
[2020-10-16] MEDS: Finasteride 5 MG Tablet PO (06:15)
[2020-10-16] MEDS: Arthritis Pain Compound 60 CLICK TUBE TOPICAL ×3 (06:15→21:52)
[2020-10-16] MEDS: Heparin Injection (Vial) 5,000 UNIT/ML VIAL 5000 UNIT SC ×2 (06:16→17:12)
[2020-10-16] MEDS: Magnesium Hydroxide 30 ML UDC PO (06:18)
[2020-10-16] MEDS: Nystatin Powder 15gm Bottle 1 APPLIC TOPICAL ×2 (06:22→21:54)
[2020-10-16] MEDS: Gabapentin 100 MG Capsule PO ×2 (08:26→17:12)
[2020-10-16] MEDS: Juven (unflavored) Packet 1 PACKET PO ×2 (08:26→17:11)
[2020-10-16] MEDS: Aspirin E.C. 81 MG Tablet PO (08:26)
[2020-10-16] MEDS: FLUCONAZOLE 150 MG TABLET PO (09:17)
[2020-10-16 10:00] VITALS: PULSE 52; RESP 18; O2SAT 99
[2020-10-16] MEDS: Collagenase 30gm Tube 1 APPLIC TOPICAL (12:26)
[2020-10-16 14:19] VITALS: BP 122/56; PULSE 54; RESP 16; TEMP 36.4; O2SAT 100
[2020-10-16] MEDS: Gabapentin 100 MG Capsule 200 MG PO ×2 (19:42→21:52)
[2020-10-16] MEDS: traMADol 50 MG Tablet 25 MG PO (21:51)
[2020-10-16] MEDS: Magnesium Citrate 300 ML PO (21:51)
[2020-10-16] MEDS: Atorvastatin Calcium 80 MG Tablet PO (21:52)
[2020-10-16] MEDS: MELATONIN 10 MG TABLET PO (21:52)
[2020-10-16] MEDS: Ammonium Lactate 225 gm Bottle 1 APPLIC TOPICAL (21:53)
[2020-10-17] MEDS: Arthritis Pain Compound 60 CLICK TUBE TOPICAL ×3 (05:12→21:03)
[2020-10-17] MEDS: Finasteride 5 MG Tablet PO (05:13)
[2020-10-17] MEDS: Heparin Injection (Vial) 5,000 UNIT/ML VIAL 5000 UNIT SC (05:13)
[2020-10-17] MEDS: Senna/Docusate Sodium 1 Tablet 2 TABLET PO ×2 (05:13→17:30)
[2020-10-17] MEDS: amLODIPine 2.5 MG Tablet PO (05:13)
[2020-10-17] MEDS: Nystatin Powder 15gm Bottle 1 APPLIC TOPICAL ×2 (05:14→21:07)
[2020-10-17 05:18] VITALS: BP 112/51; PULSE 63; RESP 16; TEMP 36.2; O2SAT 93
[2020-10-17] MEDS: Bisacodyl 10 MG Suppository RC (06:45)
[2020-10-17] MEDS: Collagenase 30gm Tube 1 APPLIC TOPICAL (06:50)
[2020-10-17 08:27] VITALS: O2SAT 94
[2020-10-17] MEDS: Juven (unflavored) Packet 1 PACKET PO ×2 (08:45→17:30)
[2020-10-17] MEDS: Aspirin E.C. 81 MG Tablet PO (08:47)
[2020-10-17] MEDS: Gabapentin 100 MG Capsule PO ×2 (08:48→17:30)
[2020-10-17 10:32] LABS: Mucous, Urine 0 SEEN /hpf (<or=2+); Squamous Epithelial Cells - UA 0 SEEN /hpf (0-5)
[2020-10-17 10:35] LABS: Color, Urine Yellow (Yellow); Glucose, Dipstick Normal (Normal); Ketone-Dipstick Negative (Negative); Leukocyte Esterase-Dipstick 100 /ul (Negative); Nitrite-Dipstick Negative (Negative); Occult Blood-Urine 250 /ul (Negative); Protein-Dipstick 30 mg/dl (Negative); Urine Bilirubin Dipstick Negative (Negative); Urine Clarity Cloudy (Clear); Urine Urobilinogen Normal (Normal)
[2020-10-17 10:46] LABS: White Blood Cells 0-5 SEEN /hpf (0-5)
[2020-10-17 10:47] LABS: Bacteria RARE /hpf (None Seen); Red Blood Cells-Urine 25-50 SEEN /hpf (0-5)
--- NOTE | 2020-10-17 11:20 | NURSING ---
PT HAD XLG HARD/FORMED STOOL. RN AWARE
[2020-10-17 15:09] VITALS: BP 101/74; PULSE 63; RESP 18; TEMP 36.8; O2SAT 96
--- NOTE | 2020-10-17 15:37 | NURSING ---
Left message for Dr. Mcnulty's office to schedule appt. Waiting for return call.
--- NOTE | 2020-10-17 15:40 | PHA.CONS_ITS ---
<Maggie Oseguera - Last Filed: 10/17/20 15:40> Progress Note - Pharmacy Subjective: TCU Admission Objective: Allergies No Known Allergies Allergy (Verified 01/02/20 14:24) Current Medications Generic Name Dose Route Start Last Admin Trade Name Freq PRN Reason Stop Dose Admin Acetaminophen 500 mg 10/14/20 14:33 10/16/20 02:27 Acetaminophen 500 Mg Tablet PO 500 mg Q4H PRN Administration PAIN/FEVER Al Hydroxide/Mg Hydroxide 30 ml 10/14/20 14:34 Mag Hydrox/Al Hydrox/Simeth 30 Ml Udc PO Q6H PRN PRN INDIGESTION Amlodipine Besylate 2.5 mg 10/15/20 06:00 10/17/20 05:13 Amlodipine 2.5 Mg Tablet PO 2.5 mg DAILY DARION Administration Aspirin 81 mg 10/15/20 08:00 10/17/20 08:47 Aspirin E.C. 81 Mg Tablet PO 81 mg DAILY@0800 DARION Administration Atorvastatin Calcium 80 mg 10/14/20 22:00 10/16/20 21:52 Atorvastatin Calcium 80 Mg Tablet PO 80 mg QHS DARION Administration Bisacodyl 10 mg 10/14/20 14:14 10/17/20 06:45 Bisacodyl 10 Mg Suppository RC 10 mg DAILY PRN PRN Administration Constipation Collagenase 1 applic 10/15/20 06:00 10/17/20 06:50 Collagenase 30gm Tube TOPICAL 1 applic DAILY DARION Administration Protocol Compound Med 0 click 10/14/20 22:00 10/17/20 14:37 Arthritis Pain Compound 60 Click Tube TOPICAL 3 click TID DARION Administration Protocol Finasteride 5 mg 10/15/20 06:00 10/17/20 05:13 Finasteride 5 Mg Tablet PO 5 mg DAILY DARINO Administration Gabapentin 100 mg 10/14/20 17:00 10/17/20 08:48 Gabapentin 100 Mg Capsule PO 100 mg BIDCM DARION Administration Gabapentin 200 mg 10/14/20 19:00 10/16/20 21:52 Gabapentin 100 Mg Capsule PO 200 mg 1900,2200 DARION Administration L-Arginine/L-Glutamine/Calcium HMB 1 packet 10/14/20 17:00 10/17/20 08:45 Boaz (Unflavored) Packet PO 1 packet BIDCM DARION Administration Lactic Acid 1 applic 10/14/20 22:00 10/16/20 21:53 Ammonium Lactate 225 Gm Bottle TOPICAL 1 applic HS DARION Administration Magnesium Hydroxide 30 ml 10/14/20 14:34 10/16/20 06:18 Magnesium Hydroxide 30 Ml Udc PO 30 ml .PRN X 1 PRN Administration Constipation Melatonin 10 mg 10/16/20 22:00 10/16/20 21:52 Melatonin 10 Mg Tablet PO 10 mg QHS DARION Administration Nystatin 1 applic 10/14/20 22:00 10/17/20 05:14 Nystatin Powder 15gm Bottle TOPICAL 1 applic BID@0600,2200 DARION Administration Protocol Prochlorperazine Maleate 5 mg 10/14/20 14:34 Prochlorperazine 5 Mg Tablet PO Q6H PRN PRN NAUSEA/VOMITING Senna/Docusate Sodium 2 tablet 10/14/20 18:00 10/17/20 05:13 Senna/Docusate Sodium 1 Tablet PO 2 tablet BID DARION Administration Sodium Chloride 2 spray 10/14/20 14:34 Sodium Chloride 0.65% 1 [place].Btl NASAL BID PRN PRN NASAL DRYNESS Tizanidine HCl 2 mg 10/15/20 18:00 Tizanidine Hcl 2 Mg Tablet PO Q12H PRN PRN muscle spasm lasting more than 5 minutes Tramadol HCl 25 mg 10/14/20 21:00 10/16/20 21:51 Tramadol 50 Mg Tablet PO 25 mg 2100 DARION Administration Tramadol HCl 25 mg 10/14/20 14:34 Tramadol 50 Mg Tablet PO Q6H PRN PRN Pain Score 4-10 Tuberculin PPD 5 tu 10/22/20 10:00 Tuberculin,Purif.Prot.Deriv. 50 Tu/Ml Vial ID 10/22/20 10:01 X1 ONE Problem List (Last Reviewed 10/11/20 @ 07:[address] Venu Mcnulty MD) CAD (coronary artery disease) (Chronic) Osteoarthritis (Chronic) BPH (benign prostatic hyperplasia) (Chronic) Urine retention (Chronic) Restless leg syndrome (Chronic) Debility (Acute) Stenosis of cervical spine with myelopathy (Acute) Cervical radiculopathy (Acute) Urinary tract infection (Acute) History of basal cell cancer (Chronic) Peripheral arterial occlusive disease (Chronic) Atrial fibrillation (Chronic) Hyperlipidemia (Chronic) Hypertension (Chronic) Vital Signs Temp Pulse Resp BP Pulse Ox 98.3 F 63 18 101/74 96 10/17/20 15:09 10/17/20 15:09 10/17/20 15:09 10/17/20 15:09 10/17/20 15:09 Oxygen Delivery Method Room Air Weight: 96.3 kg Body Mass Index (BMI) 31.3 Sodium 137 mmol/L (136-145) 10/15/20 07:54 Potassium 4.0 mmol/L (3.5-5.1) 10/15/20 07:54 Chloride 104 mmol/L (98-107) 10/15/20 07:54 Carbon Dioxide 28.0 mmol/L (21.0-32.0) 10/15/20 07:54 Anion Gap 5 (5-15) 10/15/20 07:54 BUN 22 mg/dL (7-18) H 10/15/20 07:54 Creatinine 0.66 mg/dL (0.70-1.30) L 10/15/20 07:54 Est GFR (MDRD) Af Amer 150 mL/min (>60) 10/15/20 07:54 Est GFR (MDRD) Non-Af 124 mL/min (>60) 10/15/20 07:54 BUN/Creatinine Ratio 33.4 RATIO (10-20) H 10/15/20 07:54 Glucose 91 mg/dL (74-106) 10/15/20 07:54 Assessment/Plan: 1. Pain: acetaminophen 500mg PO Q4H PRN pain/fever and tramadol 25mg PO daily @ 2100 and 25mg PO Q6H PRN pain 4-10, arthritis pain compound apply 3 clicks to the shoulder TID. Please continue to monitor for increased pain, PRN usage, constipation and respiratory depression. 2. Hypertension: amlodipine 2.5mg PO daily. Please continue to monitor BP (last 101/74) and swelling. 3. Atrial fibrillation: aspirin 81mg PO DAILYCM. Please continue to monitor for S/S of bleeding and hemoglobin (last 11.6g/dL). 4. Hyperlipidemia: atorvastatin 80mh PO QHS. Please continue to monitor lipid panel (last 08/2020) and muscle pain. 5. BPH: finasteride 5mg PO daily. Please continue to monitor BP. 6. Neuropathic pain: gabapentin 100mg PO BIDCM and 200mg 1900,2200. Please continue to monitor for confusion and renal function. 7. Indigestion: Mylanta II 30mL PO Q6H PRN indigestion. Please continue to monitor for indigestion and PRN usage. 8. Nausea: prochlorperazine 5mg PO Q6H PRN nausea/vomiting. Please continue to monitor for nausea and PRN usage. 9. Dry nares: sodium chloride nasal spray 2sprays nasal PRN nasal dryness. Please continue to monitor. 10. Muscle spasm: tizanidine 2mg PO Q12H PRN muscle spasm lasting more than 5 minutes. Please continue to monitor PRN usage and for muscle pain. Psychotropic Medications: None *Unnecessary Medications: melatonin 10mg PO QHS. I did not see a documented indication for this medication. Please consider adding an indication. Thanks. Bowel Regimen: senna/docusate 2T PO BID, MOM 30mL PO daily PRN constipation, and bisacodyl 10mg RC daily PRN constipation. Please continue to monitor for constipation and PRN usage. Date of Note:: 10/17/20 - Provider Comments Provider responsibility: Provider responsible to enter orders to implement recommendations <Antonio Gómez Chi - Last Filed: 10/17/20 17:25> Progress Note - Pharmacy Subjective: [] Objective: Allergies No Known Allergies Allergy (Verified 01/02/20 14:24) Current Medications Generic Name Dose Route Start Last Admin Trade Name Freq PRN Reason Stop Dose Admin Acetaminophen 500 mg 10/14/20 14:33 10/16/20 02:27 Acetaminophen 500 Mg Tablet PO 500 mg Q4H PRN Administration PAIN/FEVER Al Hydroxide/Mg Hydroxide 30 ml 10/14/20 14:34 Mag Hydrox/Al Hydrox/Simeth 30 Ml Udc PO Q6H PRN PRN INDIGESTION Amlodipine Besylate 2.5 mg 10/15/20 06:00 10/17/20 05:13 Amlodipine 2.5 Mg Tablet PO 2.5 mg DAILY DARION Administration Aspirin 81 mg 10/15/20 08:00 10/17/20 08:47 Aspirin E.C. 81 Mg Tablet PO 81 mg DAILY@0800 DARION Administration Atorvastatin Calcium 80 mg 10/14/20 22:00 10/16/20 21:52 Atorvastatin Calcium 80 Mg Tablet PO 80 mg QHS DARION Administration Bisacodyl 10 mg 10/14/20 14:14 10/17/20 06:45 Bisacodyl 10 Mg Suppository RC 10 mg DAILY PRN PRN Administration Constipation Collagenase 1 applic 10/15/20 06:00 10/17/20 06:50 Collagenase 30gm Tube TOPICAL 1 applic DAILY DARION Administration Protocol Compound Med 0 click 10/14/20 22:00 10/17/20 14:37 Arthritis Pain Compound 60 Click Tube TOPICAL 3 click TID [facility] Administration Protocol Finasteride 5 mg 10/15/20 06:00 10/17/20 05:13 Finasteride 5 Mg Tablet PO 5 mg DAILY DARION Administration Gabapentin 100 mg 10/14/20 17:00 10/17/20 08:48 Gabapentin 100 Mg Capsule PO 100 mg BIDCM DARION Administration Gabapentin 200 mg 10/14/20 19:00 10/16/20 21:52 Gabapentin 100 Mg Capsule PO 200 mg 1900,2200 DARION Administration L-Arginine/L-Glutamine/Calcium HMB 1 packet 10/14/20 17:00 10/17/20 08:45 Boaz (Unflavored) Packet PO 1 packet BIDCM DARION Administration Lactic Acid 1 applic 10/14/20 22:00 10/16/20 21:53 Ammonium Lactate 225 Gm Bottle TOPICAL 1 applic HS DARION Administration Magnesium Hydroxide 30 ml 10/14/20 14:34 10/16/20 06:18 Magnesium Hydroxide 30 Ml Udc PO 30 ml .PRN X 1 PRN Administration Constipation Melatonin 10 mg 10/16/20 22:00 10/16/20 21:52 Melatonin 10 Mg Tablet PO 10 mg QHS DARION Administration Nystatin 1 applic 10/14/20 22:00 10/17/20 05:14 Nystatin Powder 15gm Bottle TOPICAL 1 applic BID@0600,2200 [facility] Administration Protocol Prochlorperazine Maleate 5 mg 10/14/20 14:34 Prochlorperazine 5 Mg Tablet PO Q6H PRN PRN NAUSEA/VOMITING Senna/Docusate Sodium 2 tablet 10/14/20 18:00 10/17/20 05:13 Senna/Docusate Sodium 1 Tablet PO 2 tablet BID DARION Administration Sodium Chloride 2 spray 10/14/20 14:34 Sodium Chloride 0.65% 1 [place].Btl NASAL BID PRN PRN NASAL DRYNESS Tizanidine HCl 2 mg 10/15/20 18:00 Tizanidine Hcl 2 Mg Tablet PO Q12H PRN PRN muscle spasm lasting more than 5 minutes Tramadol HCl 25 mg 10/14/20 21:00 10/16/20 21:51 Tramadol 50 Mg Tablet PO 25 mg 2100 DARION Administration Tramadol HCl 25 mg 10/14/20 14:34 Tramadol 50 Mg Tablet PO Q6H PRN PRN Pain Score 4-10 Tuberculin PPD 5 tu 10/22/20 10:00 Tuberculin,Purif.Prot.Deriv. 50 Tu/Ml Vial ID 10/22/20 10:01 X1 ONE Problem List (Last Reviewed 10/11/20 @ 07:[address] Venu Mcnulty MD) CAD (coronary artery disease) (Chronic) Osteoarthritis (Chronic) BPH (benign prostatic hyperplasia) (Chronic) Urine retention (Chronic) Restless leg syndrome (Chronic) Debility (Acute) Stenosis of cervical spine with myelopathy (Acute) Cervical radiculopathy (Acute) Urinary tract infection (Acute) History of basal cell cancer (Chronic) Peripheral arterial occlusive disease (Chronic) Atrial fibrillation (Chronic) Hyperlipidemia (Chronic) Hypertension (Chronic) Vital Signs Temp Pulse Resp BP Pulse Ox 98.3 F 63 18 101/74 96 10/17/20 15:09 10/17/20 15:09 10/17/20 15:09 10/17/20 15:09 10/17/20 15:09 Oxygen Delivery Method Room Air Weight: 96.3 kg Body Mass Index (BMI) 31.3 Sodium 137 mmol/L (136-145) 10/15/20 07:54 Potassium 4.0 mmol/L (3.5-5.1) 10/15/20 07:54 Chloride 104 mmol/L (98-107) 10/15/20 07:54 Carbon Dioxide 28.0 mmol/L (21.0-32.0) 10/15/20 07:54 Anion Gap 5 (5-15) 10/15/20 07:54 BUN 22 mg/dL (7-18) H 10/15/20 07:54 Creatinine 0.66 mg/dL (0.70-1.30) L 10/15/20 07:54 Est GFR (MDRD) Af Amer 150 mL/min (>60) 10/15/20 07:54 Est GFR (MDRD) Non-Af 124 mL/min (>60) 10/15/20 07:54 BUN/Creatinine Ratio 33.4 RATIO (10-20) H 10/15/20 07:54 Glucose 91 mg/dL (74-106) 10/15/20 07:54 Assessment/Plan: Psychotropic Medications: Unnecessary Medications: Bowel Regimen: - Provider Comments Provider responsibility: Provider responsible to enter orders to implement puma mmendations Provider Comments to Recommendations by Pharmacy: Agree
--- NOTE | 2020-10-17 16:58 | CHAPLAIN ---
Type of Pastoral Visit _x__ Initial Visit ___ Follow-up Visit ___ On-call Visit ___ General Patient Visit ___ Spiritual Assessment ___ Family Conference ___ Bereavement ___ Rapid Response ___ Code Blue ___ Other (describe below) Pastoral Care Referral From _x__ Patient ___ Family ___ Nurse ___ Physician ___ Clip Baker ___ Cloth Measurer ___ Other (describe below) Sacrament/Intervention _x__ Active listening ___ Anointing ___ Christianity ___ Bereavement ___ Communion ___ Pooja exploration ___ _x__ Life review _x__ Prayer ___ Reconciliation ___ Sacrament of Sick ___ Supportive presence ___ Wedding ___ Other (describe below) Pastoral Comments
[2020-10-17] MEDS: Gabapentin 100 MG Capsule 200 MG PO ×2 (19:45→22:07)
[2020-10-17 20:34] VITALS: PULSE 67; RESP 18; O2SAT 97
[2020-10-17] MEDS: traMADol 50 MG Tablet 25 MG PO (21:02)
[2020-10-17] MEDS: Ammonium Lactate 225 gm Bottle 1 APPLIC TOPICAL (21:04)
[2020-10-17] MEDS: Atorvastatin Calcium 80 MG Tablet PO (22:07)
[2020-10-17] MEDS: MELATONIN 10 MG TABLET PO (22:07)
[2020-10-17] MEDS: tiZANidine HCl 2 MG Tablet PO (23:43)
--- NOTE | 2020-10-17 23:43 | NURSING ---
pt having difficulty sleeping d/t nerve pain and spasms in bilateral feet. Pt given foot rub and prn Zanflex to help. Will continue to monitor call light within reach.
[2020-10-18 05:00] VITALS: BP 119/53; PULSE 79; RESP 17; TEMP 36.4; O2SAT 93
[2020-10-18] MEDS: Nystatin Powder 15gm Bottle 1 APPLIC TOPICAL ×2 (06:00→21:06)
[2020-10-18] MEDS: Finasteride 5 MG Tablet PO (06:00)
[2020-10-18] MEDS: Senna/Docusate Sodium 1 Tablet 2 TABLET PO ×2 (06:00→17:19)
[2020-10-18] MEDS: Arthritis Pain Compound 60 CLICK TUBE TOPICAL ×3 (06:00→21:04)
[2020-10-18] MEDS: amLODIPine 2.5 MG Tablet PO (06:00)
[2020-10-18] MEDS: Aspirin E.C. 81 MG Tablet PO (08:00)
[2020-10-18] MEDS: Juven (unflavored) Packet 1 PACKET PO ×2 (08:00→17:18)
[2020-10-18 10:21] VITALS: O2SAT 95
[2020-10-18 10:36] VITALS: PULSE 56; RESP 16; O2SAT 98
[2020-10-18] MEDS: Menthol/Lanolin/Calamine/Znox 113 GM Tube 1 APPLIC TOPICAL ×2 (10:50→17:20)
[2020-10-18] MEDS: Gabapentin 100 MG Capsule PO ×2 (10:55→17:20)
[2020-10-18] MEDS: Collagenase 30gm Tube 1 APPLIC TOPICAL (12:40)
[2020-10-18 14:27] VITALS: BP 95/53; PULSE 76; RESP 18; TEMP 36.1; O2SAT 98
[2020-10-18] MEDS: Gabapentin 100 MG Capsule 200 MG PO ×2 (19:40→21:04)
[2020-10-18] MEDS: traMADol 50 MG Tablet 25 MG PO (21:00)
[2020-10-18] MEDS: Atorvastatin Calcium 80 MG Tablet PO (21:04)
[2020-10-18] MEDS: MELATONIN 10 MG TABLET PO (21:04)
[2020-10-18] MEDS: Ammonium Lactate 225 gm Bottle 1 APPLIC TOPICAL (21:05)
[2020-10-18] MEDS: tiZANidine HCl 2 MG Tablet PO (21:09)
[2020-10-19 05:47] VITALS: BP 105/60; PULSE 54; RESP 18; TEMP 36.4; O2SAT 95
[2020-10-19] MEDS: Finasteride 5 MG Tablet PO (05:47)
[2020-10-19] MEDS: Senna/Docusate Sodium 1 Tablet 2 TABLET PO ×2 (05:47→17:22)
[2020-10-19] MEDS: amLODIPine 2.5 MG Tablet PO (05:47)
[2020-10-19] MEDS: Arthritis Pain Compound 60 CLICK TUBE TOPICAL ×3 (07:47→22:23)
[2020-10-19] MEDS: Aspirin E.C. 81 MG Tablet PO (07:48)
[2020-10-19] MEDS: Menthol/Lanolin/Calamine/Znox 113 GM Tube 1 APPLIC TOPICAL ×2 (07:48→17:22)
[2020-10-19] MEDS: Gabapentin 100 MG Capsule PO ×2 (07:48→17:22)
[2020-10-19] MEDS: Nystatin Powder 15gm Bottle 1 APPLIC TOPICAL ×2 (07:49→22:26)
[2020-10-19] MEDS: Juven (unflavored) Packet 1 PACKET PO ×2 (07:49→17:22)
--- NOTE | 2020-10-19 12:19 | CASEMGMT ---
Social Work IDT met with patient and dtr via conference call for care plan meeting. Discussed patient's progress in therapy and nursing. Pt progressing well, but still needing some assistance prior to DC home alone. Explained Medicare benefit and encouraged to contact secondary insurance to ensure copay coverage. SW to follow to assist with DC plans. CARL PeaceW
[2020-10-19] MEDS: Collagenase 30gm Tube 1 APPLIC TOPICAL (13:52)
[2020-10-19 14:04] VITALS: BP 112/52; PULSE 56; RESP 18; TEMP 36.3; O2SAT 97
[2020-10-19 15:50] VITALS: O2SAT 97
[2020-10-19] MEDS: Gabapentin 100 MG Capsule 200 MG PO ×2 (19:50→22:26)
[2020-10-19] MEDS: tiZANidine HCl 2 MG Tablet PO (21:07)
[2020-10-19] MEDS: traMADol 50 MG Tablet 25 MG PO (21:12)
[2020-10-19] MEDS: Ammonium Lactate 225 gm Bottle 1 APPLIC TOPICAL (22:23)
[2020-10-19] MEDS: MELATONIN 10 MG TABLET PO (22:25)
[2020-10-19] MEDS: Atorvastatin Calcium 80 MG Tablet PO (22:25)
[2020-10-19 22:44] VITALS: RESP 16
[2020-10-20] MEDS: Arthritis Pain Compound 60 CLICK TUBE TOPICAL ×3 (06:29→21:24)
[2020-10-20] MEDS: Menthol/Lanolin/Calamine/Znox 113 GM Tube 1 APPLIC TOPICAL ×2 (06:29→16:38)
[2020-10-20] MEDS: Nystatin Powder 15gm Bottle 1 APPLIC TOPICAL ×2 (06:30→21:25)
[2020-10-20] MEDS: Senna/Docusate Sodium 1 Tablet 2 TABLET PO ×2 (06:32→16:38)
[2020-10-20] MEDS: Finasteride 5 MG Tablet PO (06:33)
[2020-10-20 06:37] VITALS: BP 105/58; PULSE 73; RESP 18; TEMP 37.1; O2SAT 96
[2020-10-20] MEDS: Aspirin E.C. 81 MG Tablet PO (08:56)
[2020-10-20] MEDS: Juven (unflavored) Packet 1 PACKET PO ×2 (08:56→16:38)
[2020-10-20] MEDS: Gabapentin 100 MG Capsule PO ×2 (08:57→16:38)
[2020-10-20 09:00] VITALS: BP 98/59; PULSE 67
[2020-10-20 10:00] VITALS: PULSE 72; RESP 16; O2SAT 97
--- NOTE | 2020-10-20 12:58 | MDS.RN ---
Pain interview completed for CEDRIC 10/21/20.
--- NOTE | 2020-10-20 13:06 | PCM.CONS.U ---
Assessment & Plan Assessment/Plan (1) BPH (benign prostatic hyperplasia): Status: Chronic Code(s): N40.0 - Benign prostatic hyperplasia without lower urinary tract symptoms Plan: d/c chaparro for voiding trial replace chaparro if cant urinate continue with flomax if fails then will need TURP after discharge from TCU HPI Consult Data Date of Consult: 10/20/20 HPI Narrative HPI Narrative: SARA SAHA, is a 80 M who presents to TCU for strengthing, he has not been able to void post op is able to walk better now, will have staff c/c chaparro for a voiding trial. [facility] Medical History (Updated 10/14/20 @ 15:[address] 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 Hyperlipidemia Hypertension FDC use of drug Old myocardial infarction PAD (peripheral artery disease) Paroxysmal atrial fibrillation Home Medications aspirin 81 mg PO DAILY 01/30/16 [History Last Taken 01/02/20] finasteride 5 mg tablet 5 mg PO DAILY 07/18/17 [History Last Taken 01/01/20] acetaminophen 500 mg tablet 500 mg PO Q4H PRN 09/25/18 [History Last Taken 01/01/20] atorvastatin 80 mg PO QHS 09/23/20 [History Last Taken Unknown] alum-mag hydroxide-simeth 30 ml PO Q6H PRN PRN c 10/13/20 [Rx Last Taken Unknown] magnesium hydroxide 30 ml PO .PRN X 1 PRN [facility] 10/13/20 [Rx Last Taken Unknown] prochlorperazine maleate 5 mg PO Q6H PRN PRN tablet 10/13/20 [Rx Last Taken Unknown] sodium chloride 2 spray NASAL BID PRN PRN spray.btl 10/13/20 [Rx Last Taken Unknown] tizanidine 2 mg PO Q12H PRN PRN tablet 10/13/20 [Rx Last Taken Unknown] tramadol 25 mg PO Q6H PRN PRN tablet 10/13/20 [Rx Last Taken Unknown] Ammonium Lactate 225 gm TP BID 10/14/20 [History Last Taken Unknown] Arthritis Pain Compound 0 click TOPICAL TID 10/14/20 [History Last Taken Unknown] amlodipine 2.5 mg PO DAILY 10/14/20 [History Last Taken Unknown] [id number]-[id number] 1 packet PO BIDCM 10/14/20 [History Last Taken Unknown] ciprofloxacin HCl 500 mg PO BID 10/14/20 [History Last Taken Unknown] fluconazole 150 mg PO X1 10/14/20 [History Last Taken Unknown] gabapentin 100 mg PO BIDCM 10/14/20 [History Last Taken Unknown] gabapentin 200 mg PO 1900,2200 10/14/20 [History Last Taken Unknown] heparin (porcine) 5,000 unit SC Q12 10/14/20 [History Last Taken Unknown] nystatin 1 applic TOPICAL BID@0600,2200 10/14/20 [History Last Taken Unknown] sennosides-docusate sodium 2 tablet PO BID 10/14/20 [History Last Taken Unknown] tramadol 25 mg PO 2100 10/14/20 [History Last Taken Unknown] Allergy/AdvReac Type Severity Reaction Status Date / Time No Known Allergies Allergy Verified 01/02/20 14:24 Family History Mother CHF (congestive heart failure) Surgical History (Updated 10/14/20 @ 15:[address] Antonio Gómez MD) History of knee surgery History of pilonidal cyst S/P coronary artery stent placement S/P rotator cuff repair Social History (Updated 02/04/20 @ 15:[address] Raul Ahumada MD) Smoking Status: Former smoker alcohol intake: current alcohol intake frequency: a few times a week Alcohol type: beer substance use type: does not use caffeine: Yes Type: coffee what type of physical activity do you participate in: bicycling frequency: 1-2 times per week duration: 15-30 minutes/day seatbelt use: always do you feel safe at home: Yes Physical Exam Const alert and oriented x3 General Appearance: cooperative HEENT normocephalic, head/scalp atraumatic, EAC's normal and TM's normal bilaterally Eyes PERRL and EOMs intact bilaterally Pupil: sluggish Neck no lymphadenopathy, supple and no JVD General: trachea midline Lymph Lymphatic: no lymphadenopathy noted, lymphedema and lymphadenopathy Resp normal respiratory effort, normal air movement and clear to auscultation bilaterally Cardio regular rate, regular rhythm and peripheral pulses 2+ throughout GI soft to palpation, non-tender and non-distended Extremity normal capillary refill and no clubbing, cyanosis or edema General Extremity: no tenderness to palpation of joints or extremities Skin no rashes or lesions noted General Skin Exam: turgor normal Lesions: no lesions Rashes: no rashes Neuro CN's II-XII intact bilaterally Speech: speech normal Motor Exam: strength 5/5 throughout; Negative for general weakness Psych thought process normal, cooperative and affect normal Appearance: appropriate Lab / Micro Data Result Diagrams: 10/15/20 07:54 10/15/20 07:54 Micro: Microbiology 10/17/20 10:30 Urine Culture - Final Urine Catheter - Catheter Culture exhibits no growth.
[2020-10-20] MEDS: Collagenase 30gm Tube 1 APPLIC TOPICAL (14:35)
[2020-10-20 15:16] VITALS: BP 117/65; PULSE 62; RESP 16; TEMP 36.3; O2SAT 100
[2020-10-20] MEDS: Gabapentin 100 MG Capsule 200 MG PO ×2 (19:37→21:26)
[2020-10-20] MEDS: tiZANidine HCl 2 MG Tablet PO (19:39)
[2020-10-20] MEDS: traMADol 50 MG Tablet 25 MG PO (21:22)
[2020-10-20] MEDS: Ammonium Lactate 225 gm Bottle 1 APPLIC TOPICAL (21:24)
[2020-10-20] MEDS: Atorvastatin Calcium 80 MG Tablet PO (21:25)
[2020-10-20] MEDS: MELATONIN 10 MG TABLET PO (21:26)
[2020-10-21 06:10] VITALS: BP 110/61; PULSE 62; RESP 16; TEMP 36.2; O2SAT 97
[2020-10-21] MEDS: Arthritis Pain Compound 60 CLICK TUBE TOPICAL ×3 (06:21→21:18)
[2020-10-21] MEDS: Menthol/Lanolin/Calamine/Znox 113 GM Tube 1 APPLIC TOPICAL ×2 (06:22→17:15)
[2020-10-21] MEDS: Nystatin Powder 15gm Bottle 1 APPLIC TOPICAL ×2 (06:22→21:20)
[2020-10-21] MEDS: Citalopram 10 MG Tablet PO (06:22)
[2020-10-21] MEDS: Finasteride 5 MG Tablet PO (06:23)
[2020-10-21] MEDS: amLODIPine 2.5 MG Tablet PO (06:23)
[2020-10-21] MEDS: Senna/Docusate Sodium 1 Tablet 2 TABLET PO ×2 (06:23→17:13)
[2020-10-21] MEDS: Aspirin E.C. 81 MG Tablet PO (08:41)
[2020-10-21] MEDS: Juven (unflavored) Packet 1 PACKET PO ×2 (08:41→17:13)
[2020-10-21] MEDS: Gabapentin 100 MG Capsule PO ×2 (08:41→17:13)
--- NOTE | 2020-10-21 11:45 | NURSING ---
wound photo: left heel and Achilles
[2020-10-21] MEDS: Collagenase 30gm Tube 1 APPLIC TOPICAL (11:46)
[2020-10-21 14:00] VITALS: BP 155/56; PULSE 58; RESP 16; TEMP 36.6; O2SAT 98
--- NOTE | 2020-10-21 14:25 | NURSING ---
pt has not voided since st cath this AM, Bladder scanned 388cc, chaparro reinserted and immediate return of 600cc clear yellow urine. will update Dr Mcnulty.
[2020-10-21 21:05] VITALS: BP 128/54; PULSE 61; RESP 20; TEMP 36.7; O2SAT 96
[2020-10-21] MEDS: Gabapentin 100 MG Capsule 200 MG PO ×2 (21:14→22:40)
[2020-10-21] MEDS: traMADol 50 MG Tablet 25 MG PO (21:17)
[2020-10-21] MEDS: Ammonium Lactate 225 gm Bottle 1 APPLIC TOPICAL (21:18)
[2020-10-21] MEDS: MELATONIN 10 MG TABLET PO (21:19)
[2020-10-21] MEDS: Atorvastatin Calcium 80 MG Tablet PO (21:20)
[2020-10-21] MEDS: tiZANidine HCl 2 MG Tablet PO (21:21)
[2020-10-22] MEDS: Citalopram 10 MG Tablet PO (05:23)
[2020-10-22] MEDS: Senna/Docusate Sodium 1 Tablet 2 TABLET PO ×2 (05:23→17:41)
[2020-10-22] MEDS: Finasteride 5 MG Tablet PO (05:24)
[2020-10-22] MEDS: Menthol/Lanolin/Calamine/Znox 113 GM Tube 1 APPLIC TOPICAL ×2 (05:24→17:41)
[2020-10-22] MEDS: amLODIPine 2.5 MG Tablet PO (05:24)
[2020-10-22] MEDS: Arthritis Pain Compound 60 CLICK TUBE TOPICAL ×3 (05:24→22:40)
[2020-10-22] MEDS: Nystatin Powder 15gm Bottle 1 APPLIC TOPICAL ×2 (05:25→22:43)
[2020-10-22 05:37] VITALS: BP 94/41; PULSE 48; RESP 16; TEMP 36.6; O2SAT 94
[2020-10-22 07:32] LABS: Absolute Lymphocyte Count 0.86 X10^3/uL (0.83-4.51); Absolute Neutrophil Count 3.7 X10^3/uL (2.0-7.7); Basophil# 0.01 X10^3/uL; Basophil% 0.2 % (0-1); Eosinophil# 0.22 X10^3/uL; Hematocrit 33.9 % (40-54); Hemoglobin 10.5 g/dL (13.0-16.5); Lymphocyte # 0.86 X10^3/ul (0.83-4.51); Lymphocyte % 15.6 % (19-41); Mean Corpuscular Hgb 29.1 pg (27.0-32.0); Mean Corpuscular Volume 93.9 fL (80-94); Monocyte# 0.74 X10^3/uL; Monocyte% 13.4 % (0-10); NRBC Flagged by Analyzer 0 % (0-5); Neutrophil # 3.67 X10^3/uL (2.7-7.7); Neutrophil % 66.3 % (47-70); Platelet Count 237 K/mm3 (150-450); RBC Distribution Width CV 13.6 % (11.6-14.6); RBC Distribution Width SD 46.9 fl (35.1-43.9); Red Blood Count 3.61 M/mm3 (4.6-6.2); White Blood Count 5.5 K/mm3 (4.4-11.0)
[2020-10-22 07:54] LABS: Anion Gap 3 (5-15); BUN 23 mg/dL (7-18); BUN/Creat Ratio 36.5 RATIO (10-20); Calcium,Total 8.4 mg/dL (8.5-10.1); Chloride 104 mmol/L (98-107); Creatinine, Serum 0.63 mg/dL (0.70-1.30); EST Glomerular Filtration Rate 130 mL/min (>60); Est Glom Filt Rate - Afr Amer 157 mL/min (>60); Estimated Creatinine Clearance 58.92 ml/min; Glucose 86 mg/dL (74-106); Potassium 4.1 mmol/L (3.5-5.1); Sodium Level 138 mmol/L (136-145)
[2020-10-22] MEDS: Gabapentin 100 MG Capsule PO ×2 (08:43→17:41)
[2020-10-22] MEDS: Aspirin E.C. 81 MG Tablet PO (08:43)
[2020-10-22] MEDS: Juven (unflavored) Packet 1 PACKET PO ×2 (08:43→17:41)
[2020-10-22 10:00] VITALS: PULSE 60; RESP 18; O2SAT 92
[2020-10-22 13:15] VITALS: BP 114/54; PULSE 68; RESP 14; TEMP 36.2; O2SAT 96
[2020-10-22] MEDS: Collagenase 30gm Tube 1 APPLIC TOPICAL (13:27)
[2020-10-22] MEDS: Tuberculin,Purif.prot.deriv. 50 TU/ML Vial 5 ML ID (13:28)
[2020-10-22] MEDS: Gabapentin 100 MG Capsule 200 MG PO (22:31)
[2020-10-22] MEDS: MELATONIN 10 MG TABLET PO (22:32)
[2020-10-22] MEDS: Atorvastatin Calcium 80 MG Tablet PO (22:32)
[2020-10-22] MEDS: traMADol 50 MG Tablet 25 MG PO (22:38)
[2020-10-22] MEDS: tiZANidine HCl 2 MG Tablet PO (22:40)
[2020-10-22] MEDS: Ammonium Lactate 225 gm Bottle 1 APPLIC TOPICAL (22:42)
[2020-10-23] MEDS: Acetaminophen 500 MG Tablet PO (00:28)
[2020-10-23] MEDS: traMADol 50 MG Tablet 25 MG PO ×2 (01:56→20:09)
--- NOTE | 2020-10-23 02:15 | NURSING ---
BLE remain restless. Pt positions self in bed for comfort. Refer to MAR for medications administered for pain. In no acute distress. Allen light w/ in reach and encouraged to call for staff when needed..
[2020-10-23 06:12] VITALS: BP 98/46; PULSE 51; RESP 16; TEMP 36.6; O2SAT 93
[2020-10-23] MEDS: Nystatin Powder 15gm Bottle 1 APPLIC TOPICAL ×2 (06:14→20:07)
[2020-10-23] MEDS: Menthol/Lanolin/Calamine/Znox 113 GM Tube 1 APPLIC TOPICAL ×2 (06:14→17:54)
[2020-10-23] MEDS: Finasteride 5 MG Tablet PO (06:15)
[2020-10-23] MEDS: Arthritis Pain Compound 60 CLICK TUBE TOPICAL ×3 (06:16→20:05)
[2020-10-23] MEDS: Citalopram 10 MG Tablet PO (06:16)
[2020-10-23] MEDS: Senna/Docusate Sodium 1 Tablet 2 TABLET PO ×2 (06:16→17:55)
[2020-10-23] MEDS: Juven (unflavored) Packet 1 PACKET PO ×2 (08:21→17:54)
[2020-10-23] MEDS: Gabapentin 100 MG Capsule PO ×2 (08:21→17:54)
[2020-10-23] MEDS: Aspirin E.C. 81 MG Tablet PO (08:21)
[2020-10-23 15:15] VITALS: BP 116/52; PULSE 57; RESP 16; TEMP 36.6; O2SAT 98
[2020-10-23] MEDS: Collagenase 30gm Tube 1 APPLIC TOPICAL (17:55)
[2020-10-23] MEDS: Gabapentin 100 MG Capsule 200 MG PO ×2 (20:04→22:24)
[2020-10-23] MEDS: tiZANidine HCl 2 MG Tablet PO (20:04)
[2020-10-23] MEDS: MELATONIN 10 MG TABLET PO (20:05)
[2020-10-23] MEDS: Atorvastatin Calcium 80 MG Tablet PO (20:06)
[2020-10-23] MEDS: Ammonium Lactate 225 gm Bottle 1 APPLIC TOPICAL (20:12)
[2020-10-23 21:50] VITALS: PULSE 68; RESP 18; O2SAT 92
[2020-10-24] MEDS: amLODIPine 2.5 MG Tablet PO (06:33)
[2020-10-24] MEDS: Finasteride 5 MG Tablet PO (06:33)
[2020-10-24] MEDS: Citalopram 10 MG Tablet PO (06:33)
[2020-10-24] MEDS: Senna/Docusate Sodium 1 Tablet PO ×2 (06:33→17:30)
[2020-10-24] MEDS: Arthritis Pain Compound 60 CLICK TUBE TOPICAL ×2 (06:35→22:08)
[2020-10-24] MEDS: Nystatin Powder 15gm Bottle 1 APPLIC TOPICAL ×2 (06:38→22:09)
[2020-10-24 06:40] VITALS: BP 107/56; PULSE 58; RESP 16; TEMP 37.1
[2020-10-24] MEDS: Juven (unflavored) Packet 1 PACKET PO ×2 (08:21→17:30)
[2020-10-24] MEDS: Gabapentin 100 MG Capsule PO ×2 (08:21→17:30)
[2020-10-24] MEDS: Aspirin E.C. 81 MG Tablet PO (08:25)
--- NOTE | 2020-10-24 10:19 | NURSING ---
Dr Mcnulty office updated on pt needing chaparro reinserted 10/21 d/t failed voiding trials. Urology office will call back with appt date and time to see dr mcnulty regarding TURP procedure.
--- NOTE | 2020-10-24 11:39 | NURSING ---
wound photo: left heel/Achilles
--- NOTE | 2020-10-24 12:16 | NURSING ---
Dressing changed today per wound nurse
[2020-10-24] MEDS: Collagenase 30gm Tube 1 APPLIC TOPICAL (13:03)
--- NOTE | 2020-10-24 13:25 | CASEMGMT ---
Social Work Spoke with pt and dtr about DC plans. Both requesting DC 5/6. IDT agreeable. Pt prefers HHC vs OP therapy. Provided [facility] list of providers including quality and resource use data and consistent with the patient?s preferred geographic region, medical needs, and insurance network. Pt prefers [facility]. Referral made for PT/OT/SN. Pt requesting platform walker and 3-in-1 commode. Referred to [facility]. Provided [facility] resources as well. Dtr to transport. Plan: DC home to dtr's house with [facility] PT/OT/SN, platform walker, 3-in-1 walker CARL PeaceW
[2020-10-24 15:05] VITALS: BP 94/59; PULSE 60; RESP 16; TEMP 36.7; O2SAT 96
[2020-10-24] MEDS: Menthol/Lanolin/Calamine/Znox 113 GM Tube 1 APPLIC TOPICAL (17:32)
[2020-10-24] MEDS: Gabapentin 100 MG Capsule 200 MG PO ×2 (19:26→22:10)
[2020-10-24] MEDS: tiZANidine HCl 2 MG Tablet PO (19:27)
--- NOTE | 2020-10-24 19:39 | PCM.DC.SUM ---
Providers Date of Admission: 10/14/20 Primary Care Physician: Dr. Donte Wang MD Consultations 10/17/20 17:30 Physician Consult Routine Consulting Provider: Venu Mcnulty Consulted Physician Type:: [facility] Reason for Consult: Urinary retention. Notified: Yes Date Notified:: 10/18/20 Time Notified: 13:15 Method of Notification:: Verbal 10/21/20 10:52 Consult: Onc/Wound/photographer motion picture Routine Comment: Reason for Consult:: LT achilles and lt heel wounds Reason For Visit: LAMI C3 TO C4 Diagnosis Discharge Diagnosis (1) BPH (benign prostatic hyperplasia): Status: Chronic Code(s): N40.0 - Benign prostatic hyperplasia without lower urinary tract symptoms Medications at Discharge Home Medications aspirin 81 mg PO DAILY 01/30/16 finasteride 5 mg tablet 5 mg PO DAILY 07/18/17 acetaminophen 500 mg tablet 500 mg PO Q4H PRN 09/25/18 atorvastatin 80 mg PO QHS 09/23/20 amlodipine 2.5 mg PO DAILY 30 Days #30 tab 10/24/20 [id number] 1 packet PO BIDCM 30 Days #60 ea 10/24/20 gabapentin 100 mg PO BIDCM 30 Days #60 cap 10/24/20 tizanidine 2 mg PO Q12H PRN PRN 30 Days #60 tablet 10/24/20 Hospital Course Operations None Procedures None Summary of Care Provided Minutes Spent on Discharge: 35 Hospital Course: 80 year old male with below past medical history hospitalized for cervical spinal stenosis with myelopathy, underwent C3-4 decompression, laminectomy 09/19/2020, admitted to , then transferred to TCU with debility, here for rehabilitation, strengthening, prior to discharge home alone. Resident has urinary retention requiring indwelling chaparro catheter, follow up with Dr. Mcnulty outpatient to consider TURP. Discharge home with daughter, [facility] PT/OT/SN, 3 in 1 commode, platform walker. ABG / Lab / Microbiology Data Result Diagrams: 10/22/20 07:10 10/22/20 07:10 Microbiology: Microbiology 10/17/20 10:30 Urine Catheter - Catheter Urine Culture - Final Culture exhibits no growth. 10/14/20 18:45 Mucosa - Nose SARS-CoV-2 Antigen (Rapid) - Final D/C Instructions Discharge Diet: No restrictions Discharge Activity: Return to Normal Activity, May Shower, May Take a Tub Bath and Use Walker Weight Bearing Status: Weight bearing as tolerated Call your doctor if you observe: Fever of 101 or Higher, Shortness of breath, Dizziness, Chest pain, Increased palpitations (irregular heartbeat) and Uncontrolled pain Additional Instructions: Discharge home with daughter, [facility] PT/OT/SN, 3 in 1 commode, platform walker. Please follow up with your Primary Care Physician in: 1 week. Please Follow Up With: DR Cole Neves Meaningful Use Info Meaningful Use Diagnoses (Choose all that apply): None applicable Discharge Plan Admission Admit Date/Time: 10/14/20 13:53 Primary Reason for Your Visit: Debility Attending Provider: Antonio Gómez Chi Primary Care Provider: Donte Wang Consulting Providers: Venu Mcnulty Instructions Additional Instructions / Restrictions: Discharge home with daughter, [facility] PT/OT/SN, 3 in 1 commode, platform walker. Discharge Orders/Prescriptions Prescriptions: Continued finasteride [Proscar] 5 mg tablet 5 mg PO DAILY RF: 0 acetaminophen [Tylenol Extra Strength] 500 mg tablet 500 mg PO Q4H PRN (Reason: Pain Or Fever) RF: 0 aspirin 81 MG tablet,delayed release (DR/EC) 81 mg PO DAILY RF: 0 atorvastatin 80 MG tablet 80 mg PO QHS RF: 0 tizanidine 2 MG tablet 2 mg PO Q12H PRN PRN (Reason: muscle spasm lasting more than 5 minutes) 30 Days Qty: 60 RF: 0 amlodipine 2.5 MG tablet 2.5 mg PO DAILY 30 Days Qty: 30 RF: 0 gabapentin 100 MG capsule 100 mg PO BIDCM 30 Days Qty: 60 RF: 0 [id number]-[id number]-[id number]-[id number] 1 PACKET packet 1 packet PO BIDCM 30 Days Qty: 60 RF: 0 Discontinued prochlorperazine maleate 5 MG tablet 5 mg PO Q6H PRN PRN (Reason: NAUSEA/VOMITING) RF: 0 tramadol 50 MG tablet 25 mg PO Q6H PRN PRN (Reason: Pain Score 4-5) RF: 0 magnesium hydroxide 30 ML suspension 30 ml PO .PRN X 1 PRN (Reason: Constipation) RF: 0 alum-mag hydroxide-simeth 30 ML suspension 30 ml PO Q6H PRN PRN (Reason: Indigestion) RF: 0 sodium chloride 1 SPRAY aerosol,spray 2 spray NASAL BID PRN PRN (Reason: NASAL DRYNESS) RF: 0 Ammonium Lactate 226 GM lotion 225 gm TP BID RF: 0 Arthritis Pain Compound 60 CLICK Gm 0 click TOPICAL TID RF: 0 fluconazole 150 MG tablet 150 mg PO X1 RF: 0 sennosides-docusate sodium 1 TABLET tablet 2 tablet PO BID RF: 0 ciprofloxacin HCl 500 MG tablet 500 mg PO BID RF: 0 tramadol 50 MG tablet 25 mg PO 2100 RF: 0 gabapentin 100 MG capsule 200 mg PO 1900,2200 RF: 0 nystatin 1 APPLIC bottle 1 applic TOPICAL BID@0600,2200 RF: 0 heparin (porcine) 5,000 UNIT/ML solution 5,000 unit SC Q12 RF: 0 Referrals: Donte Wang MD [Primary Care Provider] - Disposition Disposition (needs filled in before D/C Order can be placed): Home, self care
[2020-10-24] MEDS: traMADol 50 MG Tablet 25 MG PO (22:06)
[2020-10-24] MEDS: Ammonium Lactate 225 gm Bottle 1 APPLIC TOPICAL (22:08)
[2020-10-24] MEDS: MELATONIN 10 MG TABLET PO (22:09)
[2020-10-24] MEDS: Atorvastatin Calcium 80 MG Tablet PO (22:09)
[2020-10-25 04:56] VITALS: BP 95/50; PULSE 55; RESP 16; TEMP 36.9; O2SAT 94
[2020-10-25] MEDS: Nystatin Powder 15gm Bottle 1 APPLIC TOPICAL ×2 (04:57→21:04)
[2020-10-25] MEDS: Menthol/Lanolin/Calamine/Znox 113 GM Tube 1 APPLIC TOPICAL ×2 (04:57→17:48)
[2020-10-25] MEDS: Arthritis Pain Compound 60 CLICK TUBE TOPICAL ×3 (04:57→21:00)
[2020-10-25] MEDS: Citalopram 10 MG Tablet PO (04:58)
[2020-10-25] MEDS: Senna/Docusate Sodium 1 Tablet PO ×2 (04:59→17:47)
[2020-10-25] MEDS: amLODIPine 2.5 MG Tablet PO (04:59)
[2020-10-25] MEDS: Finasteride 5 MG Tablet PO (04:59)
[2020-10-25] MEDS: Juven (unflavored) Packet 1 PACKET PO ×2 (08:17→17:47)
[2020-10-25] MEDS: Aspirin E.C. 81 MG Tablet PO (08:18)
[2020-10-25] MEDS: Gabapentin 100 MG Capsule PO ×2 (08:18→17:47)
[2020-10-25 13:06] VITALS: BP 110/54; PULSE 59; RESP 20; TEMP 36.1; O2SAT 96
[2020-10-25 19:45] VITALS: PULSE 55; RESP 16; O2SAT 96
[2020-10-25] MEDS: tiZANidine HCl 2 MG Tablet PO (19:56)
[2020-10-25] MEDS: Collagenase 30gm Tube 1 APPLIC TOPICAL (19:56)
[2020-10-25] MEDS: Gabapentin 100 MG Capsule 200 MG PO ×2 (19:56→20:59)
[2020-10-25] MEDS: MELATONIN 10 MG TABLET PO (20:59)
[2020-10-25] MEDS: Atorvastatin Calcium 80 MG Tablet PO (20:59)
[2020-10-25] MEDS: traMADol 50 MG Tablet 25 MG PO (20:59)
[2020-10-25] MEDS: Ammonium Lactate 225 gm Bottle 1 APPLIC TOPICAL (21:03)
[2020-10-25] MEDS: Acetaminophen 500 MG Tablet PO (22:41)
[2020-10-26 03:07] VITALS: BP 103/45; PULSE 55; RESP 16; TEMP 36.9; O2SAT 96
[2020-10-26] MEDS: Arthritis Pain Compound 60 CLICK TUBE TOPICAL ×3 (05:40→21:52)
[2020-10-26] MEDS: Finasteride 5 MG Tablet PO (05:40)
[2020-10-26] MEDS: Senna/Docusate Sodium 1 Tablet PO ×2 (05:40→17:18)
[2020-10-26] MEDS: amLODIPine 2.5 MG Tablet PO (05:40)
[2020-10-26] MEDS: Citalopram 10 MG Tablet PO (05:40)
[2020-10-26] MEDS: Menthol/Lanolin/Calamine/Znox 113 GM Tube 1 APPLIC TOPICAL ×2 (05:45→17:18)
[2020-10-26] MEDS: Nystatin Powder 15gm Bottle 1 APPLIC TOPICAL ×2 (05:59→21:55)
[2020-10-26] MEDS: Juven (unflavored) Packet 1 PACKET PO ×2 (08:15→17:18)
[2020-10-26] MEDS: Aspirin E.C. 81 MG Tablet PO (08:16)
[2020-10-26] MEDS: Gabapentin 100 MG Capsule PO ×2 (08:16→17:17)
[2020-10-26 13:14] VITALS: BP 113/57; PULSE 63; RESP 20; TEMP 36.4; O2SAT 94
[2020-10-26] MEDS: Collagenase 30gm Tube 1 APPLIC TOPICAL (14:34)
[2020-10-26] MEDS: tiZANidine HCl 2 MG Tablet PO (19:55)
[2020-10-26] MEDS: Gabapentin 100 MG Capsule 200 MG PO ×2 (19:56→21:50)
[2020-10-26] MEDS: MELATONIN 10 MG TABLET PO (21:50)
[2020-10-26] MEDS: traMADol 50 MG Tablet 25 MG PO (21:50)
[2020-10-26] MEDS: Atorvastatin Calcium 80 MG Tablet PO (21:50)
[2020-10-26 21:54] VITALS: PULSE 60; RESP 18; O2SAT 96
[2020-10-26] MEDS: Ammonium Lactate 225 gm Bottle 1 APPLIC TOPICAL (21:54)
[2020-10-27] MEDS: Senna/Docusate Sodium 1 Tablet PO (06:00)
[2020-10-27] MEDS: Citalopram 10 MG Tablet PO (06:00)
[2020-10-27] MEDS: Finasteride 5 MG Tablet PO (06:01)
[2020-10-27] MEDS: Arthritis Pain Compound 60 CLICK TUBE TOPICAL (06:02)
[2020-10-27] MEDS: Nystatin Powder 15gm Bottle 1 APPLIC TOPICAL (06:03)
[2020-10-27] MEDS: Menthol/Lanolin/Calamine/Znox 113 GM Tube 1 APPLIC TOPICAL (06:03)
[2020-10-27 06:04] VITALS: BP 98/50; PULSE 50; RESP 16; TEMP 36.7; O2SAT 98
[2020-10-27] MEDS: amLODIPine 2.5 MG Tablet PO (06:40)
--- NOTE | 2020-10-27 07:22 | MDS.RN ---
Information for the mds was obtained from review of the clinical record, interview of resident, staff, and direct observation of resident's care.
[2020-10-27] MEDS: Gabapentin 100 MG Capsule PO (08:33)
[2020-10-27] MEDS: Aspirin E.C. 81 MG Tablet PO (08:33)
[2020-10-27] MEDS: Juven (unflavored) Packet 1 PACKET PO (08:33)
[2020-10-27 09:15] VITALS: PULSE 63; RESP 18; O2SAT 97
[2020-10-27] MEDS: Collagenase 30gm Tube 1 APPLIC TOPICAL (09:42)
--- NOTE | 2020-10-27 09:56 | NURSING ---
Notified Dr. Gómez that patient's preferred pharmacy did not receive his prescriptions. Dr. Gómez to resend to [facility] in [place], [place]
== END 2020-10-27 09:30 | disposition home health service (06) | DRG 560 ==
PROVIDERS: Admitting Provider Family Medicine Geriatric Medicine; PCP Family Medicine; Visit Provider Family Medicine Geriatric Medicine
DX: Z47.89 Encounter for other orthopedic aftercare (principal); G99.2 Myelopathy in diseases classified elsewhere; N39.0 Urinary tract infection, site not specified; M48.02 Spinal stenosis, cervical region; N40.0 Benign prostatic hyperplasia without lower urinary tract symptoms; R32 Unspecified urinary incontinence; R15.9 Full incontinence of feces; E78.5 Hyperlipidemia, unspecified; I10 Essential (primary) hypertension; L30.1 Dyshidrosis [pompholyx]; I48.0 Paroxysmal atrial fibrillation; B35.4 Tinea corporis; G25.81 Restless legs syndrome; Z79.82 Long term (current) use of aspirin; Z91.81 History of falling; Z79.899 Other long term (current) drug therapy; B96.4 Proteus (mirabilis) (morganii) as the cause of diseases classified elsewhere; F32.9 Major depressive disorder, single episode, unspecified; I25.10 Atherosclerotic heart disease of native coronary artery without angina pectoris; Z87.891 Personal history of nicotine dependence; I73.9 Peripheral vascular disease, unspecified; I25.2 Old myocardial infarction; R33.9 Retention of urine, unspecified
CPT/HCPCS: 36415; 80048; 81001; 85025; 87086; 87426; 97110; 97116; 97163; 97166; 97530; 97535; 97802

== ENCOUNTER → 2020-11-08 | Outpatient (CLI) | payer MEDICARE, BC, SELFPAY ==
[2020-10-14 14:22] VITALS: BMI 31.3
== END | disposition home or self-care (01) ==
PROVIDERS: PCP Family Medicine; Referring Provider Podiatrist; Visit Provider Podiatrist
DX: L97.422 Non-pressure chronic ulcer of left heel and midfoot with fat layer exposed (principal)
CPT/HCPCS: 87070; 87077; 87186; 87205

== ENCOUNTER → 2021-01-11 | Outpatient (CLI) | payer MEDICARE, BC, SELFPAY | END | disposition home or self-care (01) | LOC: LABSPEC 15:17 | PROVIDERS: PCP Family Medicine; Referring Provider Podiatrist; Visit Provider Podiatrist | DX: L97.912 Non-pressure chronic ulcer of unspecified part of right lower leg with fat layer exposed (principal) | CPT/HCPCS: 87070; 87077; 87186; 87205 ==

== ENCOUNTER → 2021-04-05 15:20 | Outpatient (CLI) | payer MEDICARE, BC, SELFPAY | PROVIDERS: PCP Family Medicine; Referring Provider Podiatrist; Visit Provider Podiatrist | DX: L97.923 Non-pressure chronic ulcer of unspecified part of left lower leg with necrosis of muscle (principal) | CPT/HCPCS: 87070; 87077; 87205 ==

== ENCOUNTER → 2021-11-29 | Outpatient (CLI) | payer MEDICARE, BC, SELFPAY ==
--- NOTE | 2021-11-29 12:01 | RAD_ITS ---
STUDY: X-RAY - LEFT ANKLE REASON FOR EXAM: Male, 81 years old. Chronic ulcer. TECHNIQUE: 3 view(s) of the ankle. COMPARISON: None. FINDINGS: Osteopenia. Moderate arthrosis of the tibiotalar joint. Moderate arthrosis of the subtalar joint. Superior and inferior calcaneal spurs. Moderate arthrosis of the visualized mid foot. Diffuse soft tissue swelling. RAD/Ankle min 3 Views IMPRESSION: Osteopenia with osteoarthritic changes and diffuse soft tissue swelling. No acute abnormality, evidence of erosive changes or periostitis. Electronically Signed: Cole Mercer MD at 13:25 EDT ,
[2021-11-29 12:24] LABS: Erythrocyte Sedimentation Rate 28 mm/hr (0-20)
[2021-11-29 12:25] LABS: Absolute Lymphocyte Count 0.62 X10^3/uL (0.83-4.51); Absolute Neutrophil Count 3.6 X10^3/uL (2.0-7.7); Basophil# 0.03 X10^3/uL; Basophil% 0.6 % (0-1); Eosinophil# 0.09 X10^3/uL; Eosinophils% 1.8 % (0-5); Hematocrit 32.6 % (40-54); Hemoglobin 10.7 g/dL (13.0-16.5); Lymphocyte # 0.62 X10^3/ul (0.83-4.51); Lymphocyte % 12.7 % (19-41); Mean Corp Hgb Conc 32.8 g/dL (32-36); Mean Corpuscular Hgb 31.2 pg (27.0-32.0); Mean Platelet Vol. 10.6 fl (6.2-12.0); Monocyte# 0.46 X10^3/uL; Monocyte% 9.4 % (0-10); NRBC Flagged by Analyzer 0 % (0-5); Neutrophil # 3.64 X10^3/uL (2.7-7.7); Neutrophil % 74.9 % (47-70); Platelet Count 293 K/mm3 (150-450); RBC Distribution Width CV 13.7 % (11.6-14.6); RBC Distribution Width SD 46.6 fl (35.1-43.9); Red Blood Count 3.43 M/mm3 (4.6-6.2); White Blood Count 4.9 K/mm3 (4.4-11.0)
[2021-11-29 13:05] LABS: Anion Gap 6 (5-15); BUN 21 mg/dL (7-18); BUN/Creat Ratio 28.3 RATIO (10-20); Calcium,Total 8.8 mg/dL (8.5-10.1); Chloride 102 mmol/L (98-107); Creatinine, Serum 0.74 mg/dL (0.70-1.30); EST Glomerular Filtration Rate 108 mL/min (>60); Est Glom Filt Rate - Afr Amer 130 mL/min (>60); Glucose 103 mg/dL (74-106); Potassium 3.9 mmol/L (3.5-5.1); Sodium Level 137 mmol/L (136-145)
== END | disposition home or self-care (01) ==
LOC: LAB 11:45
PROVIDERS: PCP Family Medicine
DX: L97.923 Non-pressure chronic ulcer of unspecified part of left lower leg with necrosis of muscle (principal)
CPT/HCPCS: 36415; 73610; 80048; 85025; 85652

== ENCOUNTER → 2022-01-03 | Outpatient (CLI) | payer MEDICARE, BC, SELFPAY ==
[2022-01-03 13:21] LABS: Absolute Lymphocyte Count 0.82 X10^3/uL (0.83-4.51); Absolute Neutrophil Count 4.3 X10^3/uL (2.0-7.7); Basophil# 0.02 X10^3/uL; Basophil% 0.3 % (0-1); Eosinophil# 1.04 X10^3/uL; Hematocrit 35.1 % (40-54); Hemoglobin 11.2 g/dL (13.0-16.5); Lymphocyte # 0.82 X10^3/ul (0.83-4.51); Lymphocyte % 11.8 % (19-41); Mean Corp Hgb Conc 31.9 g/dL (32-36); Mean Corpuscular Hgb 30.4 pg (27.0-32.0); Mean Corpuscular Volume 95.1 fL (80-94); Mean Platelet Vol. 10.8 fl (6.2-12.0); Monocyte# 0.69 X10^3/uL; NRBC Flagged by Analyzer 0 % (0-5); Neutrophil # 4.31 X10^3/uL (2.7-7.7); Neutrophil % 62.3 % (47-70); Platelet Count 285 K/mm3 (150-450); RBC Distribution Width CV 13.8 % (11.6-14.6); RBC Distribution Width SD 47.9 fl (35.1-43.9); Red Blood Count 3.69 M/mm3 (4.6-6.2); White Blood Count 6.9 K/mm3 (4.4-11.0)
[2022-01-03 13:34] LABS: Anion Gap 3 (5-15); BUN 23 mg/dL (7-18); Calcium,Total 8.8 mg/dL (8.5-10.1); Chloride 105 mmol/L (98-107); Creatinine, Serum 0.77 mg/dL (0.70-1.30); EST Glomerular Filtration Rate 103 mL/min (>60); Est Glom Filt Rate - Afr Amer 125 mL/min (>60); Glucose 94 mg/dL (74-106); Sodium Level 138 mmol/L (136-145)
== END | disposition home or self-care (01) ==
LOC: LAB 11:28
PROVIDERS: PCP Family Medicine
DX: I73.9 Peripheral vascular disease, unspecified (principal); I25.10 Atherosclerotic heart disease of native coronary artery without angina pectoris
CPT/HCPCS: 36415; 80048; 85025

== ENCOUNTER → 2022-03-28 | Outpatient (CLI) | payer MEDICARE, BC, SELFPAY | END | disposition home or self-care (01) | LOC: LABSPEC 13:03 | PROVIDERS: PCP Family Medicine; Visit Provider Podiatrist | DX: L97.922 Non-pressure chronic ulcer of unspecified part of left lower leg with fat layer exposed (principal) | CPT/HCPCS: 87070; 87186; 87205 ==

== ENCOUNTER → 2022-07-04 | Outpatient (CLI) | payer MEDICARE, BC, SELFPAY ==
[2022-07-04 10:14] LABS: Absolute Lymphocyte Count 0.81 X10^3/uL (0.83-4.51); Absolute Neutrophil Count 4.4 X10^3/uL (2.0-7.7); Basophil# 0.02 X10^3/uL; Basophil% 0.3 % (0-1); Eosinophil# 0.24 X10^3/uL; Eosinophils% 3.9 % (0-5); Hematocrit 36.3 % (40-54); Hemoglobin 11.8 g/dL (13.0-16.5); Lymphocyte # 0.81 X10^3/ul (0.83-4.51); Lymphocyte % 13.1 % (19-41); Mean Corp Hgb Conc 32.5 g/dL (32-36); Mean Corpuscular Hgb 30.2 pg (27.0-32.0); Mean Corpuscular Volume 92.8 fL (80-94); Mean Platelet Vol. 9.7 fl (6.2-12.0); Monocyte# 0.67 X10^3/uL; Monocyte% 10.8 % (0-10); NRBC Flagged by Analyzer 0 % (0-5); Neutrophil # 4.43 X10^3/uL (2.7-7.7); Neutrophil % 71.6 % (47-70); Platelet Count 355 K/mm3 (150-450); RBC Distribution Width CV 14.1 % (11.6-14.6); RBC Distribution Width SD 47.8 fl (35.1-43.9); Red Blood Count 3.91 M/mm3 (4.6-6.2); White Blood Count 6.2 K/mm3 (4.4-11.0)
[2022-07-04 11:02] LABS: AST(SGOT) 21 U/L (15-37); Alanine Aminotransfer ALT/SGPT 34 U/L (16-61); Albumin, Serum 3.3 g/dL (3.2-5.0); Alkaline Phosphatase 149 U/L (45-117); Anion Gap 6 (5-15); BUN 24 mg/dL (7-18); BUN/Creat Ratio 26.1 RATIO (10-20); Bilirubin, Direct 0.29 mg/dL (0.00-0.30); Calcium,Total 8.8 mg/dL (8.5-10.1); Chloride 105 mmol/L (98-107); Cholesterol 90 mg/dL (200); Creatinine, Serum 0.92 mg/dL (0.70-1.30); EST Glomerular Filtration Rate 84 mL/min (>60); Est Glom Filt Rate - Afr Amer 101 mL/min (>60); Ferritin 28 ng/mL (26-388); Globulin 4.3 g/dL (2.2-4.2); Glucose 89 mg/dL (74-106); High Density Lipoprotein 64 mg/dL; Iron 62 ug/dL (65-175); Protein, Total 7.6 g/dL (6.4-8.2); Sodium Level 139 mmol/L (136-145); Triglycerides 37 mg/dL; Very Low Density Lipoprotein 7 mg/dL (5-40)
[2022-07-04 13:26] LABS: Vitamin B12 277 pg/mL (211-911)
== END | disposition home or self-care (01) ==
LOC: LAB 09:24
PROVIDERS: PCP Family Medicine; Referring Provider Nurse Practitioner Family; Visit Provider Nurse Practitioner Family
DX: I10 Essential (primary) hypertension (principal); D64.9 Anemia, unspecified
CPT/HCPCS: 36415; 80048; 80061; 80076; 82607; 82728; 83540; 85025

== ENCOUNTER 2022-11-05 13:52 | Day surgery (SDC) | payer MEDICARE, BC, SELFPAY ==
[2022-11-05 14:26] VITALS: BP 122/58; PULSE 60; RESP 18; TEMP 36.7; O2SAT 99; BMI 29.2
--- NOTE | 2022-11-05 15:30 | UL_PTH ---
PATIENT: SARA SAHA LOC: [facility] U#:[id number] AGE/SX: 82/M ROOM: RE11/05/[address]: Dr. Ivonne Gleason DPM : 1940 BED: DIS: 11/05/2022 SPEC #: [id number] RECD: 11/05/22 16:35 STATUS: CARLOS TAMARA #: [id number] IVONNE: 11/05/22 15:[address]: Ivonne Gleason DEPT: SURGICAL PATHOLOGY RECD BY: mEery Lewis ENTERED: 11/06/22 07:05 SP TYPE: ULCER OTHR DR: Dr. Ankur Medina, DO Tissues: ULCER Procedures: Surgery Specimen Level III HEADER OPERATION: Debridement ulcer lower leg, Achilles area PRE-OP DIAGNOSIS: Nonhealing ulcer left leg TISSUE SUBMITTED: Debrided ulcer tissue left lower leg MICROSCOPIC DIAGNOSIS Soft tissue of left lower leg, biopsy: Ulceration with associated acute and chronic inflammation and granulation. AM:greta 11/07/2022 MICROSCOPIC DESCRIPTION Slides are reviewed. GROSS DESCRIPTION Received in fixative is one container labeled with the patient's name and designated debrided ulcer tissue left lower leg. The specimen consists of multiple irregular fragments of light to dark hernandez skin and soft tissue that in aggregate measure 7.0 x 6.0 x 0.8 cm. Radio Survey Worker sections are submitted in two cassettes. / AM:greta 11/06/2022 TC:3 CPT: 45605
[2022-11-05 16:27] VITALS: BP 122/58; BP 135/64; PULSE 57; RESP 16; TEMP 36.4; O2SAT 99
--- NOTE | 2022-11-05 16:35 | PCM.OPRPT ---
Problems Associated Problem List Diagnoses (1) Open wound of left ankle: (2) Peripheral arterial occlusive disease: Report of Operation Date of Procedure: 11/05/22 Pre-Operative Diagnosis: nonhealing ulcer left posterior ankle Post-Operative Diagnosis: same Surgery/Procedure Performed:: debridement of ulcer left ankle Description of Surgical Findings:: Significant scar tissue with moderate bleeding. Patient does take some anticoagulant therapy. No purulence. Surgeon: Ivonne Gleason Type of Anesthesia: None Specimen's removed: soft tissue Drains: none Estimated Blood Loss (mL): 10 cc's Fluids Replaced: none Description of Procedure: The patient was brought into the OR and kept on his current gurney. He was then placed comfortably on his right side to allow for better exposure of the wound. The patient does have positioning difficulty as his knees are permanently contracted and he has problems with his neck. The area was scrubbed, prepped, and draped in the usual aseptic manner. No general or local anesthesia was needed as the patient has significant peripheral neuropathy. Attention was then directed to the posterior left lower extremity superficial to the Achilles tendon where utilizing pickups and a #15 blade, sharp debridement was performed. Curette and rongeurs were also utilized. Moderate bleeding was controlled with compression. The edges of the wound were debrided utilizing a curette. There was no purulence. There was no tunneling. Achilles tendon had been debrided previously. This wound measures approximately 8.0 x 7.0 x 0.5 cm. Following aggressive sharp tissue debridement, the wound was flushed with copious amounts of normal sterile saline. At that time, the wound was then dressed with 4 x 4's, ABDs, Kerlix, Kyle wrap. With the amount of seepage from bleeding, it was necessary to have a large well-padded dressing. The patient was encouraged to keep the dressing intact. The patient tolerated procedure well. He was transferred back to his preoperative room and verbal instructions were given to him. He should keep the dressing intact and do not remove it. Elevate his foot and limit walking to only necessary times. Patient is utilize a urinal in the evening and keep pressure on the wound with his foot elevated on a pillow. He should call with any concerns. The patient has an appointment in Dr. Gleason's office for postoperative check and dressing change on Saturday, November 07. Grafts/Implants Used: None Complications None Admit VTE Documentation VTE Present on Admission: No
[2022-11-05 16:49] VITALS: BP 122/58
== END 2022-11-05 16:53 | disposition home or self-care (01) ==
LOC: SDC 13:53 → AC 13:55
PROVIDERS: PCP Family Medicine; Referring Provider Podiatrist; Visit Provider Podiatrist
PROC: (CPT 11042; principal; 2022-11-05 15:15)
DX: L97.322 Non-pressure chronic ulcer of left ankle with fat layer exposed (principal); I73.9 Peripheral vascular disease, unspecified; G62.9 Polyneuropathy, unspecified; I25.2 Old myocardial infarction; Z79.02 Long term (current) use of antithrombotics/antiplatelets; Z79.899 Other long term (current) drug therapy
CPT/HCPCS: 11042; 88304; J7120

== ENCOUNTER 2023-04-25 17:00 | Inpatient (IN) | payer MEDICARE, BC, SELFPAY ==
[2023-04-25] VITALS (9 sets, daily range): BP systolic 139–143; BP diastolic 65–94; PULSE 53–73; RESP 10–17; TEMP 35.9–36.6; O2SAT 94–100; BMI 28.7; BMI 28.2
--- NOTE | 2023-04-25 18:02 | EKG12_ITS ---
Test Reason : SOB Blood Pressure : / mmHG Vent. Rate : 050 BPM Atrial Rate : 000 BPM P-R Int : 000 ms QRS Dur : 120 ms QT Int : 474 ms P-R-T Axes : 000 -33 073 degrees QTc Int : 432 ms Atrial fibrillation Left axis deviation Left ventricular hypertrophy with QRS widening and repolarization abnormality ( R in aVL , Boyd pr oduct , Romhilt-Stanley ) Abnormal ECG Confirmed by CHU HARTMANN, ALANNAH ([id number]), photographic editor JUSTINE WILSON ([id number]) on 05/06/2023 7:38:09 AM Referred By: Confirmed By:J LUIS SAGE MD
--- NOTE | 2023-04-25 18:02 | CT_ITS ---
STUDY: CTA HEAD AND NECK WITH CONTRAST REASON FOR EXAM: Male, 82 years old. Neuro deficit, acute, stroke suspected RADIATION DOSAGE (If Supplied By Facility): CTDIvol = ( 34.68 ) mGy, DLP = ( 2457.86 ) mGycm TECHNIQUE: CT angiography was performed with a multi-detector CT scanner. Data acquisition was obtained from the skull base through the vertex following intravenous administration of IV 100mL Isovue-370. MIP images were reconstructed from the axial data set. Post-processing of the angiographic images was performed, with multiplanar reformation and 3D reconstruction. Individualized dose optimization techniques were used for this CT. COMPARISON: No relevant priors. FINDINGS: Normal bilateral petrous carotid arteries. Normal right cavernous carotid artery with a normal supraclinoid bifurcation. Normal left cavernous carotid artery with a normal supraclinoid bifurcation. There is hypoplastic development of the right A1 segment of the anterior cerebral arteries with an atretic but intact artery. Normal left A1 segments of the anterior cerebral artery. Normal intact anterior communicating artery (ACOM). Normal bilateral A2 segments of the anterior cerebral arteries. Normal right M1 and M2 segments of the middle cerebral arteries, with a normal M1 bifurcation. Normal left M1 and M2 segments of the middle cerebral arteries, with a normal M1 bifurcation. Normal right posterior communicating artery (PCOM). Normal left posterior communicating artery (PCOM). Normal bilateral vertebral arteries. Normal basilar artery with a normal basilar bifurcation. The visualized bilateral superior cerebellar (SCA) arteries are normal. Normal bilateral P1, P2 and visualized P3 segments of the posterior cerebral arteries. There is no demonstrated aneurysm of the [place]. There is no acute abnormality of the visualized brain. There are involutional changes of the brain. There is degenerative postoperative changes in the cervical spine. AORTIC ARCH: Normal visualized aortic arch. Normal origins of the brachiocephalic, left common carotid, and left subclavian arteries. RIGHT CAROTID ARTERIES: Normal right common carotid artery (CCA). Normal right common carotid bulb. Normal origin of the right internal carotid (ICA) artery without a hemodynamically significant stenosis. Normal visualized cervical portion of the right internal carotid artery. Normal origin of the right external carotid artery (ECA). LEFT CAROTID ARTERIES: Normal left common carotid artery (CCA). There is mild atherosclerotic plaque formation with minimal narrowing of the left carotid bulb. There is mild atherosclerotic plaque formation of the origin of the left internal carotid artery with less than 50% cross sectional diameter stenosis. Normal visualized cervical portion of the left internal carotid artery. Normal origin of the left external carotid artery (ECA). VERTEBRAL ARTERIES: Normal bilateral vertebral arteries. CT/CTA Head AND Neck W/ Contrast IMPRESSION: There is mild, less than 50%, narrowing of the left internal carotid artery. There is no hemodynamically significant internal carotid artery stenosis. No intracranial aneurysm or large vessel occlusion. N.B. : The above Results were Read Back by Vamshi Contreras MD to Raul Patel DO, and understanding confirmed on 04/25/2023 19:31:51 (ET). Electronically Signed: Vamshi Contreras MD at 19:33 EDT ,
[2023-04-25 18:12] LABS: Absolute Lymphocyte Count 0.42 X10^3/uL (0.83-4.51); Absolute Neutrophil Count 3.5 X10^3/uL (2.0-7.7); Eosinophil# 0.02 X10^3/uL; Eosinophils% 0.5 % (0-5); Hematocrit 33.5 % (40-54); Hemoglobin 11.3 g/dL (13.0-16.5); Lymphocyte # 0.42 X10^3/ul (0.83-4.51); Lymphocyte % 9.7 % (19-41); Mean Corp Hgb Conc 33.7 g/dL (32-36); Mean Corpuscular Hgb 30.5 pg (27.0-32.0); Mean Corpuscular Volume 90.3 fL (80-94); Mean Platelet Vol. 10.2 fl (6.2-12.0); Monocyte# 0.43 X10^3/uL; Monocyte% 9.9 % (0-10); NRBC Flagged by Analyzer 0 % (0-5); Neutrophil # 3.46 X10^3/uL (2.7-7.7); Neutrophil % 79.7 % (47-70); POSITIVE DIFFERENTIAL YES; Platelet Count 279 K/mm3 (150-450); RBC Distribution Width CV 15.3 % (11.6-14.6); RBC Distribution Width SD 50.1 fl (35.1-43.9); Red Blood Count 3.71 M/mm3 (4.6-6.2); White Blood Count 4.3 K/mm3 (4.4-11.0)
--- NOTE | 2023-04-25 18:16 | RAD_ITS ---
STUDY: X-RAY CHEST REASON FOR EXAM: Male, 82 years old. Neuro deficit, acute, stroke suspected TECHNIQUE: Single AP portable view of the chest. COMPARISON: September 11, 2020 FINDINGS: The lungs are clear and expanded. There is no demonstrated pleural abnormality. Normal size heart. Normal mediastinum and rachna. Normal visualized pulmonary arteries. There is atherosclerotic calcification of the aortic arch with tortuosity. There is demineralization of the osseous structures. There is degenerative osteoarthritis of the bilateral shoulders. There is no demonstrated abnormality of the visualized soft tissue structures of the upper abdomen. RAD/Chest 1 View IMPRESSION: Degenerative changes, as described above. No demonstrated acute cardiopulmonary process. Electronically Signed: Vamshi Contreras MD at 19:10 EDT ,
[2023-04-25 18:20] LABS: Differential Indicated SCAN CRITERIA MET
[2023-04-25 18:26] LABS: Prothrombin Time (Protime)PT. 12.9 SECONDS (11.7-14.9)
[2023-04-25 18:27] LABS: Partial Thromboplast Time 35.5 Seconds (24.1-36.2)
[2023-04-25 18:33] LABS: Anion Gap 2 (5-15); BUN 19 mg/dL (7-18); BUN/Creat Ratio 26.2 RATIO (10-20); Calcium,Total 8.8 mg/dL (8.5-10.1); Chloride 104 mmol/L (98-107); Creatinine, Serum 0.72 mg/dL (0.70-1.30); EST Glomerular Filtration Rate 110 mL/min (>60); Est Glom Filt Rate - Afr Amer 133 mL/min (>60); Estimated Creatinine Clearance 56.95 ml/min; Glucose 116 mg/dL (74-106); Sodium Level 139 mmol/L (136-145); Troponin-I HS 18 pg/mL (3.0-78.0)
[2023-04-25 18:44] LABS: Differential Comment SCANNED
--- NOTE | 2023-04-25 19:08 | EDS_ITS ---
HPI History of Present Illness Chief Complaint: Numb/Ting Informant: patient and family Narrative Narrative: 82-year-old male presenting to the emergency department with a chief complaint of slurred speech. Patient states for 3 days he has had slurred speech and a right-sided headache and a sense of wobbly when he is ambulating with his walker. He states it feels like the right side of his body does not work as well. Patient has a history of atrial fibrillation but is not fully anticoagulated. Reportedly takes Pletal and Plavix. Patient denies any recent trauma. States he has noticed difficulty speaking himself and others who have told him they have had difficulty understanding him. He states it does seem better today. 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 BPH (benign prostatic hyperplasia) Bradycardia Catheter-associated urinary tract infection Cervical radiculopathy Debility Depression Dilated aortic root Eczema Essential hypertension Fecal incontinence Generalized weakness History of basal cell cancer History of ST elevation myocardial infarction (STEMI) (01/11/16) Hyperlipidemia Left ventricular hypertrophy Leg swelling Microscopic hematuria Myelopathy Normochromic normocytic anemia 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 Orthostatic hypotension Osteoarthritis PAD (peripheral artery disease) Paroxysmal atrial fibrillation Pressure ulcer Renal cyst Restless leg syndrome 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 Urinary incontinence Urinary tract infection Urine retention Home Medications finasteride 5 mg tablet (Proscar) 5 mg PO DAILY prostate 07/18/17 [History Last Taken 11/05/22] acetaminophen 500 mg tablet (Tylenol Extra Strength) 500 mg PO Q4H PRN Pain Or Fever 09/25/18 [History Last Taken 11/05/22] tizanidine 2 mg tablet 2 mg PO Q12H PRN PRN muscle spasm lasting more than 5 minutes 30 days #60 tabs 10/24/20 [Rx Last Taken 11/05/22] cilostazol 50 mg tablet 50 mg PO BID 02/02/22 [History Last Taken 11/05/22] clopidogrel 75 mg tablet 75 mg PO DAILY 02/02/22 [History Last Taken 11/03/22] atorvastatin 80 mg tablet 80 mg PO QHS cholesterol #90 tabs 04/30/22 [Rx Last Taken 11/04/22] cyanocobalamin (vitamin B-12) 1,000 mcg tablet 1,000 mcg PO DAILY 04/01/23 [History Last Taken Unknown] gabapentin 100 mg capsule 100 mg PO DAILY 04/25/23 [History Last Taken Unknown] gabapentin 100 mg capsule 200 mg PO QHS 04/25/23 [History Last Taken Unknown] Allergy/AdvReac Type Severity Reaction Status Date / Time No Known Allergies Allergy Verified 04/25/23 17:01 Family History Mother CHF (congestive heart failure) Surgical History H/O laminectomy History of coronary artery stent placement (01/11/16) History of knee surgery History of pilonidal cyst History of vascular surgery S/P debridement S/P rotator cuff repair Social History Smoking Status: Former smoker how long ago did patient quit smokin alcohol intake: current alcohol intake frequency: holidays/special occasions only substance use type: does not use caffeine: Yes Type: coffee Number of servings: 10 what type of physical activity do you participate in: bicycling frequency: 1-2 times per week duration: 15-30 minutes/day seatbelt use: always do you feel safe at home: Yes ROS ROS ED Constitutional Constitutional ED: Denies chills or weight loss Eyes Eyes: Denies change in vision or diplopia ENT ENT ED: Denies ear pain, rhinorrhea or sore throat Cardiovascular Cardiovascular: Denies chest pain, orthopnea, palpitations or racing heartbeat Respiratory/Chest Respiratory/Chest: Denies cough, dyspnea or orthopnea Gastrointestinal Gastrointestinal: Denies abdominal pain, diarrhea, nausea or vomiting Genitourinary Genitourinary ED: Denies dysuria, hematuria or urinary frequency Musculoskeletal Musculoskeletal: Denies arthralgias or myalgias Integumentary Denies abscess or rash Neurologic Neurologic: Reports weakness and other Details: Dysarthria ; Denies headache(s) Psychiatric Psychiatric: Denies anxiety, depression, suicidal ideation or suicidal thoughts Endocrine Endocrinology: Denies polydipsia, polyphagia or polyuria Allergic/Immunologic Allergic/Immunologic ED: Denies mouth swelling, tongue swelling or urticaria EXAM Physical Exam Const Vital Signs: 04/25/23 17:01 04/25/23 17:15 04/25/23 19:16 Temperature 98 F Temperature Source Temporal Pulse Rate 60 53 L 68 Respiratory Rate 14 10 L 14 Blood Pressure 139/79 H 141/65 H 141/70 H Blood Pressure Mean 99 90 93 Pulse Ox 100 97 95 Oxygen Delivery Method Room Air Room Air Room Air Positive well nourished and well developed General Appearance ED: well developed HEENT Reports normocephalic, head/scalp atraumatic and moist mucous membranes Eyes PERRL and EOMs intact bilaterally Neck no lymphadenopathy, supple and no JVD Resp normal respiratory effort and clear to auscultation bilaterally Cardio regular rhythm and no murmurs Rhythm: abnormal rhythm irregularly irregular GI normal to inspection, nondistended, normoactive bowel sounds and non-tender Palpation: soft Back/Spine no CVA tenderness and normal ROM Extremity normal to inspection General Extremety ED: Negative for edema General Extremity: Negative for edema Neuro oriented x3, CN's II-XII intact bilaterally and no sensory deficits noted Sensorium / Orientation: alert Sensory Exam: No sensory level loss detected Motor Exam: strength 5/5 throughout Psych mental status grossly normal Mood & Affect: Negative for depressed or tearful Skin no rashes or lesions noted and no wounds NIHSS NIHSS Initial: 1a Level of Consciousness: 0 1b LOC Questions (Score 2 if aphasic/stupor): 0 1c LOC Commands (Only score 1st attempt): 0 2 Best Gaze (If aphasic, use reflexive mvmts.): 0 3 Visual: 0 4 Facial Palsy: 0 5 Motor Arm Right (UN = amputation/fusion): 0 5 Motor Arm Left: 0 6 Motor Leg Right: 0 6 Motor Leg Left: 0 7 Limb ataxia (Only + if out of proportion): 0 8 Sensory (Aphasia/stupor=0 or 1, coma=2): 0 9 Best Language: 0 10 Dysarthria (mute, coma=2, intubated=UN): 1 11 Extinction and Inattention (only scored if +): 0 Total Score: 1 MDM MDM MDM Narrative Medical decision making narrative: Basic blood work was obtained. Troponin at 18. Glucose of 116. INR and PTT within normal limits. White count 4.3 hemoglobin 11.3 with a platelet count of 279. Urinalysis is negative for infection. My independent interpretation of the chest x-ray is no acute process. Initial head CT showed no hemorrhage. CTA was ordered. This demonstrated no significant LVO or plaque formation. Please see radiologist read. Patient notes that he was on Coumadin at 1 point but is unsure why he was taken off of it. He is not taking aspirin since he was placed on the Pletal and Plavix together. He states that he does not recall any GI bleeding and that he has not fallen for a very long time. History & Record Review Discussion w/independent historian: Patient and Family Lab Data Attestation: I reviewed the patient's lab results. Labs: Laboratory Results - last 24 hr 04/25/23 04/25/23 17:10 19:13 WBC 4.3 L RBC 3.71 L Hgb 11.3 L Hct 33.5 L MCV 90.3 MCH 30.5 MCHC 33.7 RDW Std Deviation 50.1 H RDW Coeff of [place] 15.3 H Plt Count 279 MPV 10.2 Immature Gran % (Auto) 0.200 Neut % (Auto) 79.7 H Lymph % (Auto) 9.7 L Bent % (Auto) 9.9 Eos % (Auto) 0.5 Baso % (Auto) 0.0 Absolute Neuts (auto) 3.5 Absolute Lymphs (auto) 0.42 L Nucleated RBC % 0 Differential Comment SCANNED PT 12.9 INR 1.0 APTT 35.5 Sodium 139 Potassium 4.0 Chloride 104 Carbon Dioxide 33.0 H Anion Gap 2 L BUN 19 H Creatinine 0.72 Estim Creat Clear Calc 56.95 Est GFR (MDRD) Af Amer 133 Est GFR (MDRD) Non-Af 110 BUN/Creatinine Ratio 26.2 H Glucose 116 H Calcium 8.8 Troponin I High Sens 18 Urine Color Yellow Urine Clarity Clear Urine pH 6.0 Ur Specific [place] 1.010 Urine Protein Negative Urine Glucose (UA) Normal Urine Ketones Negative Urine Occult Blood Negative Urine Nitrite Negative Urine Bilirubin Negative Urine Urobilinogen Normal Ur Leukocyte Esterase Negative Urine RBC 0 SEEN Urine WBC 0 SEEN Ur Squamous Epith Cells 0-5 SEEN Urine Bacteria 0 SEEN Urine Mucus 0 SEEN Radiography Diagnostic Testing: Clinical Impression(s) from Imaging Studies Head/Neck CTA 04/25/23 18:02 IMPRESSION: There is mild, less than 50%, narrowing of the left internal carotid artery. There is no hemodynamically significant internal carotid artery stenosis. No intracranial aneurysm or large vessel occlusion. N.B. : The above Results were Read Back by Vamshi Contreras MD to Raul Patel DO, and understanding confirmed on 04/25/2023 19:31:51 (ET). Electronically Signed: Vamshi Contreras MD at 19:33 EDT , ADDENDUM: 04/25/23 1940 IMPRESSION: There is mild, less than 50%, narrowing of the left internal carotid artery. There is no hemodynamically significant internal carotid artery stenosis. No intracranial aneurysm or large vessel occlusion. N.B. : The above Results were Read Back by Vamshi Contreras MD to Raul Patel DO, and understanding confirmed on 04/25/2023 19:31:51 (ET). Electronically Signed: Vamshi Contreras MD at 19:33 EDT , Chest X-Ray 04/25/23 18:16 IMPRESSION: Degenerative changes, as described above. No demonstrated acute cardiopulmonary process. Electronically Signed: Vamshi Contreras MD at 19:10 EDT , EKG Initial EKG: Attestation: I personally reviewed and interpreted this EKG as follows: Comments: Atrial fibrillation with no definitive features of ACS. Ventricular rate of 50. EKG does not appear significantly changed from EKG dated 12 October 2020 Management Discussion w/another healthcare provider: Hospitalist Discharge Plan Dx/Rx/DC Orders Clinical Impression: Acute stroke due to ischemia, Paroxysmal atrial fibrillation Disposition Disposition: Acute Care [facility]
[2023-04-25 19:18] LABS: Bacteria 0 SEEN /hpf (None Seen); Mucous, Urine 0 SEEN /hpf (<or=2+); Red Blood Cells-Urine 0 SEEN /hpf (0-5); White Blood Cells 0 SEEN /hpf (0-5)
--- NOTE | 2023-04-25 19:21 | ED.RN ---
PER DR. IVORY VERBAL ORDER, NIH ASSESSMENTS COMPLETE, ORDER DISCONTINUED.
[2023-04-25 19:24] LABS: Color, Urine Yellow (Yellow); Glucose, Dipstick Normal (Normal); Ketone-Dipstick Negative (Negative); Leukocyte Esterase-Dipstick Negative /ul (Negative); Nitrite-Dipstick Negative (Negative); Occult Blood-Urine Negative /ul (Negative); Protein-Dipstick Negative (Negative); Urine Bilirubin Dipstick Negative (Negative); Urine Clarity Clear (Clear); Urine Urobilinogen Normal (Normal)
[2023-04-25 19:32] LABS: Squamous Epithelial Cells - UA 0-5 SEEN /hpf (0-5)
--- NOTE | 2023-04-25 19:57 | HP.PCM.HOS_ITS ---
HPI - General General Date of Admission: 04/25/23 Date of Service: 04/25/23 Chief Complaint: Slurred speech, gait imbalance, right sided headache. HPI Narrative The patient is an 82 y/o M w/ PMHx: Chronic normocytic anemia, CAD w/ Hx STEMI s /p PCI, PAD with previous peripheral vascular surgery, PAF, RLS, HTN, HLD, BPH, Orthostatic hypotension, Issues with chronic urinary retention as well as incontinence, Chronic cervical spine stenosis w/ myelopathy, recent L achilles surgery with Echo Vascular Tech Dr. Gleason with VAC in place with dressing changes MWF who presents to the [facility] ED on 04/25/23 with history of at least 3 days of altered speech as well as right-sided mild throbbing headache with gait imbalance while attempting to use and ambulate with his walker describes a sensation as though the right side of his body is not working as well as normally and given family was having difficulty understanding him prompted eventual ED evaluation. In the ED daughter is present and does state that he seems better than he had been but still his speech is mildly altered. Patient is on Pletal and Plavix with PAF history and had been on Coumadin in the past but is not currently chronically anticoagulated. Patient and daughter are unsure as to the reason why he is not chronically anticoagulated. In the ED patient does have evidence of paroxysmal A-fib on monitor. Patient does admit to claustrophobia and discussion with family with plan to have low-dose Ativan for MRI. In the ED NIH stroke score per ED physician 1 for dysarthria. Work-up in the ED included T98, heart rate 60, BP 139/79, respiratory rate 14, 100% on room air with most recent vital signs T97.8, heart rate 73, BP 140/72, respiratory rate 16, 97% on room air, CBC with WC 4.3, 11.3, MCV 90.3, platelet 279 with lymphopenia, unremarkable coags, BMP with Comvax at 33, BUN/creatinine 19/0.72, glucose 116, troponin 18, urinalysis unremarkable, chest x-ray with degenerative changes with no acute cardiopulmonary findings, CT head/CTA head and neck with no acute intracranial findings with a mild less than 50% narrowing of the left internal carotid artery, EKG with atrial fibrillation rate controlled. 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 Orthostatic hypotension Osteoarthritis PAD (peripheral artery disease) Paroxysmal atrial fibrillation Pressure ulcer Renal cyst Restless leg syndrome 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 Urinary incontinence Urinary tract infection Urine retention Home Medications finasteride 5 mg tablet (Proscar) 5 mg PO DAILY prostate 07/18/17 [History Last Taken 11/05/22] acetaminophen 500 mg tablet (Tylenol Extra Strength) 500 mg PO Q4H PRN Pain Or Fever 09/25/18 [History Last Taken 11/05/22] tizanidine 2 mg tablet 2 mg PO Q12H PRN PRN muscle spasm lasting more than 5 minutes 30 days #60 tabs 10/24/20 [Rx Last Taken 11/05/22] cilostazol 50 mg tablet 50 mg PO BID 02/02/22 [History Last Taken 11/05/22] clopidogrel 75 mg tablet 75 mg PO DAILY 02/02/22 [History Last Taken 11/03/22] atorvastatin 80 mg tablet 80 mg PO QHS cholesterol #90 tabs 04/30/22 [Rx Last Taken 11/04/22] cyanocobalamin (vitamin B-12) 1,000 mcg tablet 1,000 mcg PO DAILY 04/01/23 [History Last Taken Unknown] gabapentin 100 mg capsule 100 mg PO DAILY 04/25/23 [History Last Taken Unknown] gabapentin 100 mg capsule 200 mg PO QHS 04/25/23 [History Last Taken Unknown] Allergy/AdvReac Type Severity Reaction Status Date / Time No Known Allergies Allergy Verified 04/25/23 17:01 Family History (Updated 04/25/23 @ 23:[address] Diana Weinberg MD) Mother CHF (congestive heart failure) Heart disease Hypertension Father COPD (chronic obstructive pulmonary disease) Surgical History H/O laminectomy History of coronary artery stent placement (01/11/16) History of knee surgery History of pilonidal cyst History of vascular surgery S/P debridement S/P rotator cuff repair Social History current occupation: retired current occupational exposures/hazards: No history of recent travel: No Smoking Status: Former smoker how long ago did patient quit smokin alcohol intake: current alcohol intake frequency: holidays/special occasions only details: occasional,holiday substance use type: does not use caffeine: Yes Type: coffee Number of servings: 10 what type of physical activity do you participate in: bicycling frequency: 1-2 times per week duration: 15-30 minutes/day seatbelt use: always do you feel safe at home: Yes ROS ROS Narrative Admission Review of Systems: CONSTITUTIONAL: No weight loss, fever, chills, + weakness or fatigue. HEENT: Eyes: No visual loss, blurred vision, double vision or yellow sclerae. Ears, Nose, Throat: No hearing loss, sneezing, congestion, runny nose or sore throat. SKIN: No rash or itching, lesions, wounds. CARDIOVASCULAR: No chest pain, chest pressure or chest discomfort, palpitations, edema, orthopnea, syncopal events. RESPIRATORY: No shortness of breath, cough or sputum, wheezing, hemoptysis. GASTROINTESTINAL: No anorexia, nausea, vomiting or diarrhea, abdominal pain, melena, BRBPR. GENITOURINARY: No dysuria, frequency, urgency or retention. NEUROLOGICAL: + Complaints of right-sided headache, throbbing, gait imbalance as well as aphasia with altered speech. No dizziness, syncope, focal paralysis, numbness or tingling in the extremities, focal weakness, change in bowel or bladder control, seizure. MUSCULOSKELETAL: + muscle, back pain, joint pain or stiffness. HEMATOLOGIC: + anemia, easy bleeding/bruising. LYMPHATICS: No enlarged nodes. No history of splenectomy. PSYCHIATRIC: No history of depression or anxiety. ENDOCRINOLOGIC: No reports of sweating, cold or heat intolerance. No polyuria or polydipsia. ALLERGIES: No history of asthma, hives, eczema or rhinitis. Vital Signs Vital Signs Vital Signs: 04/25/23 17:01 04/25/23 17:15 04/25/23 19:16 Temperature 98 F Temperature Source Temporal Pulse Rate 60 53 L 68 Respiratory Rate 14 10 L 14 Blood Pressure 139/79 H 141/65 H 141/70 H Blood Pressure Mean 99 90 93 Pulse Ox 100 97 95 Oxygen Delivery Method Room Air Room Air Room Air Weight Weight: 194 lb 7.163 oz Body Mass Index (BMI) 28.7 Physical Exam Narrative Physical Examination: General: Awake, alert, oriented to self, place and recent events, remains cooperative, seated upright in the ED bed, mildly fatigued otherwise notes feeling well, daughter present and states that his aphasia does seem mildly improved since initial arrival but has been persistent for at least 3 days. Skin: Normal color, normal turgor, no icterus, no cyanosis except for occasional staged ecchymoses, bilateral lower extremities venous stasis skin changes, left Achilles with VAC in place following recent surgery with Dr. Gleason. HEENT: AT/NC, EOMI, PERRLA, MMM, no carotid bruits or JVD noted. Lungs: Diminished, greater bases, appropriate effort, no rales, ronchi or wheezing. Heart: Irregular, rate controlled; no gallop, rub audible. Abdomen: Soft, overweight, NTTP, ND, hyperactive BS, no HSM. Extremities: No cyanosis, no clubbing, mild peripheral edema, see skin. Neurological: Patient awake, alert, oriented as noted, mild aphasia still present, cognitive function per family does appear intact; pupils equally reactive to light and accommodation, cranial nerves grossly normal, moving all 4 extremities although somewhat limited secondary to osteoarthritic disease, no specific focal deficits, finger-nose and rkia-[id number]-keia appropriate with some limitation, equivocal Babinski, no drift evident, strength moderately to sev erely global decrease secondary to chronic underlying disease and debility. Psychiatric: Affect appears fatigued, no acute evidence of depressive or anxiety feelings. Results Lab / Micro Data 04/25/23 17:10 04/25/23 17:10 Labs: Laboratory Results - last 24 hr 04/25/23 17:10: WBC 4.3 L, RBC 3.71 L, Hgb 11.3 L, Hct 33.5 L, MCV 90.3, MCH 30.5, MCHC 33.7, RDW Std Deviation 50.1 H, RDW Coeff of [place] 15.3 H, Plt Count 279, MPV 10.2, Immature Gran % (Auto) 0.200, Neut % (Auto) 79.7 H, Lymph % (Auto) 9.7 L, [place] % (Auto) 9.9, Eos % (Auto) 0.5, Baso % (Auto) 0.0, Absolute Neuts (auto) 3.5, Absolute Lymphs (auto) 0.42 L, Nucleated RBC % 0, Differential Comment SCANNED, PT 12.9, INR 1.0, APTT 35.5, Sodium 139, Potassium 4.0, Chloride 104, Carbon Dioxide 33.0 H, Anion Gap 2 L, BUN 19 H, Creatinine 0.72, Estim Creat Clear Calc 56.95, Est GFR (MDRD) Af Amer 133, Est GFR (MDRD) Non-Af 110, BUN/Creatinine Ratio 26.2 H, Glucose 116 H, Calcium 8.8, Troponin I High Sens 18 04/25/23 19:13: Urine Color Yellow, Urine Clarity Clear, Urine pH 6.0, Ur Specific [place] 1.010, Urine Protein Negative, Urine Glucose (UA) Normal, Urine Ketones Negative, Urine Occult Blood Negative, Urine Nitrite Negative, Urine Bilirubin Negative, Urine Urobilinogen Normal, Ur Leukocyte Esterase Negative, Urine RBC 0 SEEN, Urine WBC 0 SEEN, Ur Squamous Epith Cells 0-5 SEEN, Urine Bacteria 0 SEEN, Urine Mucus 0 SEEN Radiology Impression Head/Neck CTA 04/25/23 18:02 IMPRESSION: There is mild, less than 50%, narrowing of the left internal carotid artery. There is no hemodynamically significant internal carotid artery stenosis. No intracranial aneurysm or large vessel occlusion. N.B. : The above Results were Read Back by Vamshi Contreras MD to Raul Patel DO, and understanding confirmed on 04/25/2023 19:31:51 (ET). Electronically Signed: Vamshi Contreras MD at 19:33 EDT , ADDENDUM: 04/25/231939 IMPRESSION: There is mild, less than 50%, narrowing of the left internal carotid artery. There is no hemodynamically significant internal carotid artery stenosis. No intracranial aneurysm or large vessel occlusion. N.B. : The above Results were Read Back by Vamshi Contreras MD to Raul Patel DO, and understanding confirmed on 04/25/2023 19:31:51 (ET). Electronically Signed: Vamshi Contreras MD at 19:33 EDT Reading Location ID and State: [facility] / [place] , Service support , Chest X-Ray 04/25/23 18:16 IMPRESSION: Degenerative changes, as described above. No demonstrated acute cardiopulmonary process. Electronically Signed: Vamshi Contreras MD at 19:10 EDT , Assessment & Plan Assessment/Plan (1) CVA (cerebral vascular accident): PLAN: Plan The patient is an 82 y/o M w/ PMHx: Chronic normocytic anemia, CAD w/ Hx STEMI s/p PCI, PAD with previous peripheral vascular surgery, PAF, RLS, HTN, HLD, BPH, Orthostatic hypotension, Issues with chronic urinary retention as well as incontinence, Chronic cervical spine stenosis w/ myelopathy, recent L achilles surgery with Echo Vascular Tech Dr. Gleason with VAC in place with dressing changes MWF who presents to the [facility] ED on 04/25/23 with history of at least 3 days of altered speech as well as right-sided mild throbbing headache with gait imbalance while attempting to use and ambulate with his walker describes a sensation as though the right side of his body is not working as well as normally and given family was having difficulty understanding him prompted eventual ED evaluation. #1. Aphasia, persistent with gait imbalance concerning for CVA: Will admit to PCU, will obtain MRI Brain as no obvious evidence of recent stroke on CT although patient is only 3 days out from start of symptoms, echo requested with bubble, PT/OT/Speech/Nutrition evaluation per protocol. Will allow permissive HTN although currently not on any regimen per current list, maintain on Pletal/plavix, statin w/ AM FLP, fall precautions. Mag, TSH, FLP, HgbA1c requested. Maintain on fall and aspiration precautions. Once work-up obtained low threshold to obtain Neurology consultation if felt appropriate. If MRI of the brain does demonstrate acute stroke findings would be beneficial to discuss patient case with cardiology, follows with Dr. Santiago to review possibility of adding back anticoagulant therapy as unclear why this was discontinued as pat jamal and daughter are not the best historians regarding his A-fib history. They do mention some falls so this certainly could be the primary reason but again unclear. #2. CAD: Status post previous STEMI as well as PCI with XU proximal RCA, proximal mid RCA and RPLB 01/11/16, currently on Pletal as well as Plavix, not on any hypertensive agent, continue statin therapy. #3. PAD: Patient s/p proximal left peroneal to distal left peroneal angioplasty x3 11/02/2021, will continue Pletal, Plavix, statin therapy, not on any hypertensive regimen. #4. Chronic normocytic anemia/vitamin B12 deficiency: Admission hemoglobin 11.3, MCV 90.3, baseline hemoglobin 10-11, stable, continue to trend. #5. BP with history of previous urinary retention chart reported as well as incontinence: We will continue patient home finasteride regimen, monitor for any retention. #6. Restless leg syndrome: Patient currently uses low-dose tizanidine nightly for muscle spasms and suspect likely RLS, may benefit from consideration of Requip usage. #7. Chronic cervical spine stenosis with myelopathy, chronic pain: We will continue patient home chronic low-dose gabapentin regimen. Hyperlipidemia: Continue home statin regimen. #8. Orthostatic hypotension: Chart reported, maintain on fall precautions, enco urage slow positional changes. #9. DVT prophylaxis: Lovenox. #10. CODE status: Patient OSIRIS is Lacie his daughter who is present and living will is currently in place. Discussed CODE status at length including difference between FULL code, DNR-CCA and DNR-CC status. Following discussions about the differences in these status, requested Full Code status. Advanced Care Planning Face to Face Time: 16 minutes. Charges/Coding Visit Charges Inpatient E&M: 12689 Init Hosp L3 Procedures Hospitalists Procedures: 17051 Advncd Care Plan 30 Min
--- NOTE | 2023-04-25 20:03 | ED.RN ---
THIS RN GAVE PT TWO SIPS OF WATER. PT STARTED COUGHING AFTER SECOND SIP. PER PT DAUGHTER PT ALWAYS COUGHS LIKE THIS.
--- NOTE | 2023-04-25 20:27 | ECHOD_ITS ---
Reason For Study: TIA/CVA Procedure This was a 2D Doppler, Color Flow transthoracic echocardiogram. Exam performed portable in ICU/CCU. Left Ventricle Normal LV size. The estimated ejection fraction is 55 %. Diastolic function is indeterminate. No regional wall motion abnormalities noted. Right Ventricle Normal RV size. Normal systolic function. Atria The left atrium is mildly enlarged. Normal right atrium. No doppler evidence for ASD. Bubble contrast study negative for right to left interatrial shunt. Mitral Valve There is no mitral valve stenosis. No mitral valve insufficiency. Tricuspid Valve There is no tricuspid stenosis. Trivial tricuspid valve insufficiency. Pulmonary artery systolic pressure is 35 mmHg. Aortic Valve Trisinus/trileaflet aortic valve. There is no aortic stenosis. No aortic valve insufficiency. Pulmonic Valve There is no pulmonic valvular stenosis. No pulmonic valve insufficiency. Great Vessels The aortic root is not well visualized. Pericardium/Pleural No pericardial effusion. MMode/2D Measurements & Calculations LAV(MOD-bp): 75.1 ml LVAd ap4: 39.0 cm2 SV(MOD-sp4): 86.0 ml LAV(MOD-bp) Indexed: 36.7 ml/m2 LVLd ap4: 9.1 cm LAV(MOD-sp2): 55.3 ml EDV(MOD-sp4): 133.4 ml LAV(MOD-sp4): 88.1 ml EDV(sp4-el): 142.2 ml LVAs ap4: 19.8 cm2 LVLs ap4: 6.7 cm ESV(MOD-sp4): 47.5 ml ESV(sp4-el): 49.3 ml EF(MOD-sp4): 64.4 % EF(sp4-el): 65.3 % SV(sp4-el): 92.8 ml LA A4 area: 27.1 cm2 LA dimension(2D): 3.4 cm RA A4 area: 8.9 cm2 TAPSE: 1.9 cm Time Measurements MV dec time: 0.20 sec Doppler Measurements & Calculations MV E max yusef: 87.5 cm/sec Lat Peak E' Yusef: 11.0 cm/sec Med Peak E' Yusef: 6.5 cm/sec MV A max yusef: 126.0 cm/sec E/E' lat: 8.0 E/E' med: 13.5 MV E/A: 0.69 MV V2 max: 141.1 cm/sec MV dec slope: 458.7 cm/sec2 Ao V2 max: 183.3 cm/sec MV max P.0 mmHg Ao max P.5 mmHg MV V2 mean: 88.5 cm/sec Ao V2 mean: 127.6 cm/sec MV mean P.4 mmHg Ao mean P.5 mmHg MV V2 VTI: 39.9 cm Ao V2 VTI: 36.3 cm AV (velocity ratio): 0.79 LV V1 max: 130.2 cm/sec PA V2 max: 99.9 cm/sec TR max yusef: 270.7 cm/sec LV V1 max P.8 mmHg PA V2 mean: 57.2 cm/sec TR max P.3 mmHg LV V1 mean P.0 mmHg LV V1 mean: 95.1 cm/sec LV V1 VTI: 28.7 cm ECHO/Echo Complete Interpretation Summary The estimated ejection fraction is 55 %. Diastolic function is indeterminate. Ordering Physician: Diana Weinberg Referring Physician: Ankur Medina Performed By: Meredith Frost RCS
[2023-04-25 20:29] LABS: Magnesium 2.4 mg/dL (1.6-2.6)
--- NOTE | 2023-04-25 20:37 | ED.RN ---
DR. TAVAREZ AWARE PT REQUESTS MEDICATIONS PRIOR TO MRI OF 2037.
[2023-04-25] MEDS: 0.9% Normal Saline (1000mL) 1,000 ML 100 ML IV (21:35)
[2023-04-25] MEDS: Atorvastatin Calcium 80 MG Tablet PO (22:29)
[2023-04-25] MEDS: Cilostazol 50 MG Tablet PO (22:29)
[2023-04-25] MEDS: MELATONIN 3 MG TABLET PO (22:30)
[2023-04-25] MEDS: Acetaminophen 325 MG Tablet 650 MG PO (22:30)
[2023-04-25] MEDS: Gabapentin 100 MG Capsule 200 MG PO (22:30)
[2023-04-25] MEDS: tiZANidine HCl 2 MG Tablet PO (22:30)
[2023-04-26] VITALS (18 sets, daily range): BP systolic 86–140; BP diastolic 39–99; PULSE 48–114; RESP 12–18; TEMP 36.4–36.6; O2SAT 92–98; BMI 28.8
[2023-04-26 04:43] LABS: Absolute Lymphocyte Count 0.57 X10^3/uL (0.83-4.51); Absolute Neutrophil Count 2.3 X10^3/uL (2.0-7.7); Basophil# 0.01 X10^3/uL; Basophil% 0.3 % (0-1); Eosinophil# 0.03 X10^3/uL; Eosinophils% 0.9 % (0-5); Hematocrit 28.6 % (40-54); Hemoglobin 9.3 g/dL (13.0-16.5); Lymphocyte # 0.57 X10^3/ul (0.83-4.51); Lymphocyte % 16.6 % (19-41); Mean Corp Hgb Conc 32.5 g/dL (32-36); Mean Corpuscular Volume 92.3 fL (80-94); Monocyte# 0.47 X10^3/uL; Monocyte% 13.7 % (0-10); NRBC Flagged by Analyzer 0 % (0-5); Neutrophil # 2.34 X10^3/uL (2.7-7.7); Neutrophil % 68.2 % (47-70); POSITIVE DIFFERENTIAL YES; Platelet Count 244 K/mm3 (150-450); RBC Distribution Width CV 15.1 % (11.6-14.6); RBC Distribution Width SD 50.6 fl (35.1-43.9); White Blood Count 3.4 K/mm3 (4.4-11.0)
[2023-04-26 04:52] LABS: Differential Indicated SCAN CRITERIA MET
[2023-04-26 05:07] LABS: ALB/GLOB Ratio 0.7 RATIO (0.9-2.4); AST(SGOT) 28 U/L (15-37); Alanine Aminotransfer ALT/SGPT 39 U/L (16-61); Albumin, Serum 2.5 g/dL (3.2-5.0); Alkaline Phosphatase 160 U/L (45-117); Anion Gap 4 (5-15); BUN 17 mg/dL (7-18); BUN/Creat Ratio 23.6 RATIO (10-20); Chloride 108 mmol/L (98-107); Cholesterol 76 mg/dL (200); Creatinine, Serum 0.72 mg/dL (0.70-1.30); EST Glomerular Filtration Rate 111 mL/min (>60); Est Glom Filt Rate - Afr Amer 134 mL/min (>60); Estimated Creatinine Clearance 56.95 ml/min; Globulin 3.6 g/dL (2.2-4.2); Glucose 66 mg/dL (74-106); High Density Lipoprotein 60 mg/dL; Potassium 4.1 mmol/L (3.5-5.1); Protein, Total 6.1 g/dL (6.4-8.2); Sodium Level 139 mmol/L (136-145); Thyroid Stim Hormone (TSH) 3.02 uIU/mL (0.358-3.74); Triglycerides 31 mg/dL; Very Low Density Lipoprotein 6 mg/dL (5-40)
[2023-04-26 06:30] LABS: Differential Comment SCANNED
--- NOTE | 2023-04-26 07:22 | PCM.PN.HOSP ---
Reason for Visit Reason for Visit: Diagnoses Cerebral infarction, unspecified (04/25/23) Subjective Subjective Patient is an 82-year-old gentleman who was admitted with slurred speech and unstable gait concerning for acute CVA admitted to monitored bed for further management Objective Data Objective Data GENERAL: cooperative HEENT: Atraumatic; normocephalic EYES; Anicteric, Normal Conjunctiva NECK; supple, normal thyroid, RESPIRATORY: Diminished to auscultation CARDIOVASCULAR: Regular S1 S2, GI: soft, normoactive bowel sounds, : No Renal angle tenderness; EXTREMITIES: No edema, no clubbing, MUSCULOSKELETAL: no muscle wasting NEURO: Awake; no lateralizing signs. SKIN: No Rash PSYCH; Flat affect Vital Signs: Vital Signs Temp Pulse Resp BP Pulse Ox O2 Del Method 97.7 F L 73 16 119/76 94 Room Air 04/26/23 04:00 04/26/23 05:24 04/26/23 05:24 04/26/23 05:24 04/26/23 05:24 04/26/23 05:24 Oxygen Delivery Method Room Air Weight: 88.7 kg Body Mass Index (BMI) 28.8 Intake & Output: Intake and Output for Last 24 Hours 04/24/23 04/25/23 04/26/23 23:59 23:59 23:59 Intake Total 750 / 750 Output Total 350 / 350 Balance 400 / 400 Lab / Micro Data 04/26/23 04:35 04/26/23 04:35 Labs: Laboratory Results - last 24 hr 04/25/23 17:10: WBC 4.3 L, RBC 3.71 L, Hgb 11.3 L, Hct 33.5 L, MCV 90.3, MCH 30.5, MCHC 33.7, RDW Std Deviation 50.1 H, RDW Coeff of [place] 15.3 H, Plt Count 279, MPV 10.2, Immature Gran % (Auto) 0.200, Neut % (Auto) 79.7 H, Lymph % (Auto) 9.7 L, [place] % (Auto) 9.9, Eos % (Auto) 0.5, Baso % (Auto) 0.0, Absolute Neuts (auto) 3.5, Absolute Lymphs (auto) 0.42 L, Nucleated RBC % 0, Differential Comment SCANNED, PT 12.9, INR 1.0, APTT 35.5, Sodium 139, Potassium 4.0, Chloride 104, Carbon Dioxide 33.0 H, Anion Gap 2 L, BUN 19 H, Creatinine 0.72, Estim Creat Clear Calc 56.95, Est GFR (MDRD) Af Amer 133, Est GFR (MDRD) Non-Af 110, BUN/Creatinine Ratio 26.2 H, Glucose 116 H, Calcium 8.8, Magnesium 2.4, Troponin I High Sens 18 04/25/23 19:13: Urine Color Yellow, Urine Clarity Clear, Urine pH 6.0, Ur Specific [place] 1.010, Urine Protein Negative, Urine Glucose (UA) Normal, Urine Ketones Negative, Urine Occult Blood Negative, Urine Nitrite Negative, Urine Bilirubin Negative, Urine Urobilinogen Normal, Ur Leukocyte Esterase Negative, Urine RBC 0 SEEN, Urine WBC 0 SEEN, Ur Squamous Epith Cells 0-5 SEEN, Urine Bacteria 0 SEEN, Urine Mucus 0 SEEN 04/26/23 04:35: WBC 3.4 L, RBC 3.10 L, Hgb 9.3 L, Hct 28.6 L, MCV 92.3, MCH 30.0, MCHC 32.5, RDW Std Deviation 50.6 H, RDW Coeff of [place] 15.1 H, Plt Count 244, MPV 10.0, Immature Gran % (Auto) 0.300, Neut % (Auto) 68.2, Lymph % (Auto) 16.6 L, [place] % (Auto) 13.7 H, Eos % (Auto) 0.9, Baso % (Auto) 0.3, Absolute Neuts (auto) 2.3, Absolute Lymphs (auto) 0.57 L, Nucleated RBC % 0, Differential Comment SCANNED, Diff Path Review October, Sodium 139, Potassium 4.1, Chloride 108 H, Carbon Dioxide 27.0, Anion Gap 4 L, BUN 17, Creatinine 0.72, Estim Creat Clear Calc 56.95, Est GFR (MDRD) Af Amer 134, Est GFR (MDRD) Non-Af 111, BUN/Creatinine Ratio 23.6 H, Glucose 66 L, Calcium 8.0 L, Total Bilirubin 0.50, AST 28, ALT 39, Alkaline Phosphatase 160 H, Total Protein 6.1 L, Albumin 2.5 L, Globulin 3.6, Albumin/Globulin Ratio 0.7 L, Triglycerides 31, Cholesterol 76, LDL Cholesterol 10, VLDL Cholesterol 6, HDL Cholesterol 60, TSH 3.02 Radiography Diagnostic Testing: Radiology Impression Head/Neck CTA 04/25/23 18:02 IMPRESSION: There is mild, less than 50%, narrowing of the left internal carotid artery. There is no hemodynamically significant internal carotid artery stenosis. No intracranial aneurysm or large vessel occlusion. N.B. : The above Results were Read Back by Vamshi Contreras MD to Raul Patel DO, and understanding confirmed on 04/25/2023 19:31:51 (ET). Electronically Signed: Vamshi Contreras MD at 19:33 EDT , ADDENDUM: 04/25/23 194 IMPRESSION: There is mild, less than 50%, narrowing of the left internal carotid artery. There is no hemodynamically significant internal carotid artery stenosis. No intracranial aneurysm or large vessel occlusion. N.B. : The above Results were Read Back by Vamshi Contreras MD to Raul Patel DO, and understanding confirmed on 04/25/2023 19:31:51 (ET). Electronically Signed: Vamshi Contreras MD at 19:33 EDT , Chest X-Ray 04/25/23 18:16 IMPRESSION: Degenerative changes, as described above. No demonstrated acute cardiopulmonary process. Electronically Signed: Vamshi Contreras MD at 19:10 EDT , Physical Exam Narrative GENERAL: cooperative HEENT: Atraumatic; normocephalic EYES; Anicteric, Normal Conjunctiva NECK; supple, normal thyroid, RESPIRATORY: Diminished to auscultation CARDIOVASCULAR: Regular S1 S2, GI: soft, normoactive bowel sounds, : No Renal angle tenderness; EXTREMITIES: No edema, no clubbing, MUSCULOSKELETAL: no muscle wasting NEURO: Awake; no lateralizing signs. SKIN: No Rash PSYCH; Flat affect Assessment & Plan Assessment/Plan (1) CVA (cerebral vascular accident): PLAN: Plan Patient is an 82-year-old gentleman who was admitted with slurred speech and unstable gait concerning for acute CVA admitted to monitored bed for further management 1. Suspected CVA ? Patient presented with slurred speech and gait imbalance. Admitted to a monitored bed where patient is currently undergoing evaluation including MRI of the brain which has been ordered. Initial head CTA of the head and neck reviewed, did not demonstrate any hemodynamically significant ICA stenosis. Patient is on dual antiplatelet therapy with aspirin and Plavix as well as atorvastatin 2. Coronary artery disease ? With previous history of STEMI. We will continue with guideline directed medical therapy 3. Peripheral arterial disease ? With previous intervention proximal left peroneal to distal left peroneal angioplasty x3 11/02/2021, patient is on Pletal continue 4. Proximal A-fib ? Rate controlled patient was not started on systemic anticoagulation after he was deemed to be a poor candidate. 5. Dyslipidemia -Patient is on statin therapy, continued at home dose 6 BPH ? Patient is on finasteride continued 7. Restless leg syndrome ? Symptomatic treatment with tizanidine 8. DVT prophylaxis ? SC Lovenox Time spent in the patient's overall evaluation,decision-making process, review of diagnostic data, adjustment of management, discussion with other providers, nursing nursing and ancillary staff involved in patient's care documentation, 50 Minutes Charges/Coding Visit Charges Inpatient E&M: 72011 [facility] Hosp L3
[2023-04-26 08:13] LABS: Hemoglobin A1c 4.8 % (3.8-5.6)
[2023-04-26] MEDS: Enoxaparin 40 MG/0.4 ML Syringe SC (10:12)
[2023-04-26] MEDS: Clopidogrel Bisulfate 75 MG Tablet PO (10:13)
[2023-04-26] MEDS: Cilostazol 50 MG Tablet PO ×2 (10:13→20:59)
[2023-04-26] MEDS: Gabapentin 100 MG Capsule PO (10:16)
[2023-04-26] MEDS: Finasteride 5 MG Tablet PO (10:16)
--- NOTE | 2023-04-26 10:20 | ST.MBS ---
Modified Barium Swallow Patient Information Study Date: 04/26/23 Study Time: 10:00 Direct Billable Minutes: 120 Total Minutes procedure & reportin Diagnosis: CVA I63.9 Referring Physician: Manoj England Reason for Referral: Objectively assess swallow function, assess risk for aspiration, and determine recommendations for least restrictive diet textures and compensatory strategies to improve safety of swallow. Medical History: The patient is an 82-year-old male with PMH: Chronic normocytic anemia, CAD w/ Hx STEMI s/p PCI, PAD with previous peripheral vascular surgery, PAF, RLS, HTN, HLD, BPH, Orthostatic hypotension, Issues with chronic urinary retention and incontinence, Chronic cervical spine stenosis w/ myelopathy, recent L achilles surgery with VAC in place. He who presented to the [facility] ED on 04/25/23 with history of at least 3 days of altered speech, right-sided mild throbbing headache, and gait imbalance while attempting to use and ambulate with his walker prompting eventual ED evaluation. Chest x-ray with degenerative changes with no acute cardiopulmonary findings. Brain MRI planned for the afternoon on 04/26/23. He was referred for ST consult as part of CVA work up. BSE revealed consistent coughing and throat clearing with food/drink. Current Diet Ordered: Regular textures / Thin liquids Dentition: Natural Teeth, Upper Dentures and Partials Mental Status: WNL Respiratory Status: Oxygenating on Room Air Penetration-Aspiration Scale Penetration-Aspiration Scale: OBJECTIVE ASSESSMENT OF SWALLOW FUNCTION (QUANTITATIVE ? PER TRIAL): PENETRATION / ASPIRATION SCALE (OCONNELL): 1 = does not enter airway 2 = enters airway/above vocal folds/ejected 3 = enters airway/above vocal folds/not ejected 4 = enters airway/contacts vocal folds/ejected 5 = enters airway/contacts vocal folds/not ejected 6 = enters airway/below vocal folds/ejected 7 = enters airway/below vocal folds/not ejected despite effort 8 = enters airway/below vocal folds/no effort VIDEOFLOROSCOPIC SCALE SCORE (OCONNELL): Grade I = aspiration of material that has penetrated into the laryngeal vestibule, intact cough reflex Grade II = aspiration < 10 % of the bolus, intact cough reflex Grade III = aspiration of < 10 % of the bolus, reduced cough reflex or aspiration of > 10 % of the bolus, intact cough reflex Grade IV = aspiration of > 10 % of the bolus, reduced cough reflex Penetration-Aspiration Scale Score Thin Liquid via teaspoon: Result: 3= enters airways/above vocal folds/not ejected Thin Liquid via teaspoon Trial 2: Result: 1= does not enter airway Thin Liquid via small single sip: cup: Result: 3= enters airways/above vocal folds/not ejected Thin Liquid via small single sip: cup Effortful swallow: Result: 8= enters airway/below vocal folds/no effort [place] Thick Liquid via small single sip: cup: Result: 7= enters airways/below vocal folds/not ejected despite effort Honey Thick Liquid via small single sip: cup: Result: 1= does not enter airway Comment: Silent post prandial aspiration observed during this trial and several future trials, likely of nectar thick residues remaining in the laryngeal vestibule and on the vocal folds. Pudding via teaspoon: Result: 1= does not enter airway 1/2 Cookie: Result: 1= does not enter airway Thin Liquid via single sip: straw: Result: 7= enters airways/below vocal folds/not ejected despite effort Thin Liquid via teaspoon Effortful swallow Trial 2: Result: 1= does not enter airway Thin Liquid via teaspoon Trial 3: Result: 3= enters airways/above vocal folds/not ejected Thin Liquid via teaspoon Effortful swallow Trial 3: Result: 8= enters airway/below vocal folds/no effort Honey Thick Liquid via small single sip: cup Trial 2: Result: 1= does not enter airway Oral Phase Tongue Control During Bolus Hold: Posterior escape of greater than half of bolus Pharyngeal Phase Initiation of Pharyngeal Swallow: Bolus head in pyriforms Soft Palate Elevation: No bolus between soft palate and pharyngeal wall Laryngeal Elevation: Partial superior movement thyroid cart/partial apprx aryt-epig petiole Anterior Hyoid Excursion: No anterior movement Epiglottic Movement: Partial inversion Laryngeal Vestibule Closure at Height of Swallow: Incomplete; narrow column of air/contrast in laryngeal vestibule Pharyngeal Stripping Wave: Present - diminished Pharyngoesophageal Segment Opening: Parital distension and partial duration; parital obstruction of flow Tongue Base Retraction: Narrow column of contrast between tongue base & post. pharyngeal wall Pharyngeal Residue: Collection of residue within or on pharyngeal structures Esophageal Phase Esophageal Clearance: Esophageal retention w/ retrograde flow through pharyngoesophageal seg Treatment Strategies Effects of treatment strategies attemped:: Cough and re-swallow = somewhat effective in clearing contrast from laryngeal vestibule, but did not clear aspirated contrast. Effortful swallow = not effective. Diagnosis/Impression Diagnosis: Moderate pharyngeal phase dysphagia R13.13 Impression: For many of the above mentioned trials, the SUPERVISOR GAS METER REPAIR cannot definitively rule out aspiration due to patient's body habitus and inability to view the vocal folds and trachea during many of the trials. Due to kyphotic posture, the patient was partially reclined in [facility] [place] [place] chair. Despite this recline, SUPERVISOR GAS METER REPAIR was not able to observe or score much of the oral phase of the swallow as the patient's head was positioned so far forward. The pharyngeal phase is marked by... -Mildly decreased tongue base retraction with trace-mild pharyngeal residues after the swallow. -No anterior hyoid excursion and decreased laryngeal elevation which impaired the patient's ability for airway closure during the swallow, especially with thin liquids. -Delayed swallow onset with thin and nectar thick liquids in the pyriforms prior to swallow onset. -SILENT aspiration of thin liquids via cup and tsp with use of effortful swallow. Weak throat clear in response to aspiration of nectar/mildly thick liquids and thin liquids by straw. SILENT post prandial aspiration of nectar thick liquids. Also, suspect silent post prandial aspiration of residues of thin liquids by straw. -The esophageal phase is marked by... -Unable to complete esophageal screen due to rigidity of patient. -CP bar observed during honey thick liquid trial at the end of study, which did impact bolus clearance. Mild honey thick residue became caught above CP-bar and flowed through the upper esophageal sphincter to the pyriforms. Recommendations Diet: Regular Textures and Honey-thick Liquids Comment: SUPERVISOR GAS METER REPAIR and the patient had discussion regarding options for diet recommendations. SUPERVISOR GAS METER REPAIR educated the patient that staying on thin liquids would require strict aspiration precautions, and that, despite use of strategies, he would still experience some aspiration and be at increased risk for aspiration related illness, including PNA. With honey/moderately thick liquids, his aspiration risk would be greatly decreased; however, his risk for dehydration would increase. The patient opted to try honey/moderately thickened liquids at this time to decrease aspiration risk. IF CONCERNS FOR POOR HYDRATION IN UPCOMING ST SESSIONS, PLEASE CONSIDER THE PATIENT FOR ICE CHIPS AND SIPS OF WATER ONLY 30 MIN AFTER MEALS AND AFTER ORAL CARE (modified Gillis Free Water Protocol). Compensatory Strategies: Small Bites, Small Sips (cue cough and re-swallow if wet vocal quality), Slow Rate, Sitting upright (head/neck in as upright position as able) and Remain sitting upright for 30 minutes after PO intake Supervision: Assist as needed (Assistance feeding as needed, assistance for completing frequent oral care throughout the day) Recommend Repeat Modified Barium Swallow: Yes (Repeat MBSS in 1-2 weeks after implementation of oropharyngeal exercises. Would not recommend diet advancement of liquids without repeat study due to SILENT nature of aspiration.) Need for Skilled Speech Therapy Services: Yes Comment: Speech Therapy to include... -Oropharyngeal exercise program to promote improved airway closure during the swallow. -Train the patient in strategies to decrease risk for aspiration. -Train the patient in recommended diet textures. Recommended Referrals: GI Consult (CP-bar did impact clearance of portion of honey thickened liquids through the upper esophageal sphincter. SUPERVISOR G[employer] METER REPAIR spoke with Dr. England regarding these findings.) Education Completed: 1. Described result of evaluation. and 2. Pt understands evaluation & agrees with goals and treatment plan. Status Active ST Patient: Active Contact Information [facility] Speech Therapy:: Yenny Souza M.A. [facility]-SUPERVISOR [employer] METER REPAIR Speech-Language Pathologist [facility] [address] [place] [address] [email or web address] [phone]
--- NOTE | 2023-04-26 11:34 | WOUNDNOTE ---
wound photo: left Achilles area
[2023-04-26] MEDS: LORazepam 2 MG/ML Syringe IV (11:54)
--- NOTE | 2023-04-26 12:00 | MRI_ITS ---
EXAM: MR HEAD WITHOUT INTRAVENOUS CONTRAST CLINICAL INDICATION: CVA TECHNIQUE: Multiplanar and multisequence MR images of the brain were obtained without intravenous contrast. COMPARISON: MRI brain without contrast 09/12/2020. CTA head and neck with contrast 04/25/2023. FINDINGS: BRAIN AND EXTRA-AXIAL SPACES: Confluent T2 FLAIR hyperintensity in the left forceps major due to chronic white matter ischemic changes unchanged. No intra- or extra-axial hemorrhage. No intracranial mass or mass effect. Posterior fossa structures are unremarkable. Ventricles are appropriate for age. No hydrocephalus. Basal cisterns are patent. No diffusion restriction to suspect acute or subacute ischemic infarct. SELLA: Unremarkable. Normal sella turcica, pituitary gland, infundibular stalk, optic chiasm and hypothalamus. AUDITORY SYSTEM: Unremarkable. The internal auditory canals are patent. BONES/JOINTS: Unremarkable. No discrete lytic or blastic abnormalities. SINUSES: Unremarkable as visualized. Clear. MASTOID AIR CELLS: Unremarkable as visualized. Clear. ORBITS: Unremarkable as visualized. Both globes, extraocular muscles, optic nerves and retrobulbar fat appear unremarkable. VASCULATURE: Unremarkable as visualized. Normal flow voids in the major intracranial circulation. MRI/Brain without Contrast IMPRESSION: 1. No MRI evidence of acute or subacute ischemic infarct or remote ischemic infarct. 2. Confluent chronic white matter ischemic changes in the left forceps major. 3. No interval change when compared to 09/12/2020. Electronically Signed: Kevin Argueta MD at 13:46 EDT ,
--- NOTE | 2023-04-26 14:30 | CASEMGMT ---
[facility] Face to Face with patient for initial transition planning/care coordination assessment. RN CM introduced self and role at [facility]. Patient lying in bed, alert and oriented. Patient willing to participate in assessment and is able to answer all questions appropriately. Care providers, pharmacy, and demographics verified. Patient wishes to discharge home with resumption of [facility] HHC, patient is agreeable to add PT/OT/ST services to HHC. Patient states he has no further needs or concerns at this time. CM to follow for discharge planning needs that may arise. PCP: Carol Specialists: Rosibel snake charmer Preferred Pharmacy: [facility] Insurance: Rhona MYLES Prescription Benefit: yes Living Will/HPOA: yes, daughter Arti Mccabe LNOK: daughter Living Arrangements: Patient lives alone in a single story home with stair lift to enter the home. Patient states he is independent at home. Transportation: daughters DME/HHC: Patient has shower chair, raised toilet, cane, walker, rollator, grab bars, and lift chair at home. Patient is active with [facility]. No previous SNF RN CM called [facility] to regarding resumption of HHC and adding PT/OT/ST to services. Per Sylvia the are able to resume services with start of care for Saturday. RN AMEYA called and updated erika ch discharge plans and is agreeable. Disposition Plan: Patient to discharge home with [facility], family support, and follow-up plans in place. Jacinda AGUILAR, RN, CM
[2023-04-26] MEDS: Gabapentin 100 MG Capsule 200 MG PO (20:57)
[2023-04-26] MEDS: Juven (unflavored) Packet 1 PACKET PO (20:58)
[2023-04-26] MEDS: Atorvastatin Calcium 80 MG Tablet PO (20:58)
[2023-04-26] MEDS: tiZANidine HCl 2 MG Tablet PO (20:59)
[2023-04-26] MEDS: Acetaminophen 325 MG Tablet 650 MG PO (21:04)
[2023-04-27] VITALS (7 sets, daily range): BP systolic 102–132; BP diastolic 47–81; PULSE 58–76; RESP 15–18; TEMP 36.4–36.6; O2SAT 96–100; BMI 28.8; BMI 29.0
[2023-04-27 05:37] LABS: Absolute Lymphocyte Count 0.81 X10^3/uL (0.83-4.51); Absolute Neutrophil Count 3.2 X10^3/uL (2.0-7.7); Basophil# 0.01 X10^3/uL; Basophil% 0.2 % (0-1); Eosinophil# 0.01 X10^3/uL; Eosinophils% 0.2 % (0-5); Hematocrit 28.2 % (40-54); Hemoglobin 9.1 g/dL (13.0-16.5); Lymphocyte # 0.81 X10^3/ul (0.83-4.51); Lymphocyte % 16.9 % (19-41); Mean Corp Hgb Conc 32.3 g/dL (32-36); Mean Corpuscular Hgb 29.8 pg (27.0-32.0); Mean Corpuscular Volume 92.5 fL (80-94); Mean Platelet Vol. 9.9 fl (6.2-12.0); Monocyte# 0.69 X10^3/uL; Monocyte% 14.4 % (0-10); NRBC Flagged by Analyzer 0 % (0-5); Neutrophil # 3.24 X10^3/uL (2.7-7.7); Neutrophil % 67.9 % (47-70); Platelet Count 247 K/mm3 (150-450); RBC Distribution Width SD 50.5 fl (35.1-43.9); Red Blood Count 3.05 M/mm3 (4.6-6.2); White Blood Count 4.8 K/mm3 (4.4-11.0)
[2023-04-27 05:50] LABS: Anion Gap 6 (5-15); BUN 37 mg/dL (7-18); BUN/Creat Ratio 39.9 RATIO (10-20); Calcium,Total 8.1 mg/dL (8.5-10.1); Chloride 109 mmol/L (98-107); Creatinine, Serum 0.93 mg/dL (0.70-1.30); EST Glomerular Filtration Rate 83 mL/min (>60); Est Glom Filt Rate - Afr Amer 100 mL/min (>60); Estimated Creatinine Clearance 61.24 ml/min; Glucose 81 mg/dL (74-106); Magnesium 2.3 mg/dL (1.6-2.6); Phosphorus 3.8 mg/dL (2.5-4.9); Potassium 3.8 mmol/L (3.5-5.1); Sodium Level 142 mmol/L (136-145)
--- NOTE | 2023-04-27 06:52 | PN.HOSP_ITS ---
Reason for Visit Reason for Visit: Diagnoses Cerebral infarction, unspecified (04/25/23) Subjective Subjective Patient underwent imaging studies~ no MRI evidence of acute or subacute ischemic infarct or remote ischemic infarct. Objective Data Objective Data Vital Signs: Vital Signs Temp Pulse Resp BP Pulse Ox O2 Del Method 97.7 F L 58 L 15 102/53 L 96 Room Air 04/27/23 01:45 04/27/23 06:00 04/27/23 06:00 04/27/23 06:00 04/27/23 06:00 04/27/23 06:00 Oxygen Delivery Method Room Air Weight: 88.9 kg Body Mass Index (BMI) 29.0 Intake & Output: Intake and Output for Last 24 Hours 04/25/23 04/26/23 04/27/23 23:59 23:59 23:59 Intake Total 1330 / 1330 Output Total 1175 / 1175 300 / 300 Balance 155 / 155 -300 / -300 Lab / Micro Data 04/27/23 05:30 04/27/23 05:30 Labs: Laboratory Results - last 24 hr 04/26/23 04:35: Hemoglobin A1c 4.8 04/27/23 05:30: WBC 4.8, RBC 3.05 L, Hgb 9.1 L, Hct 28.2 L, MCV 92.5, MCH 29.8, MCHC 32.3, RDW Std Deviation 50.5 H, RDW Coeff of [place] 15.0 H, Plt Count 247, MPV 9.9, Immature Gran % (Auto) 0.400, Neut % (Auto) 67.9, Lymph % (Auto) 16.9 L, Bowman % (Auto) 14.4 H, Eos % (Auto) 0.2, Baso % (Auto) 0.2, Absolute Neuts (auto) 3.2, Absolute Lymphs (auto) 0.81 L, Nucleated RBC % 0, Sodium 142, Potassium 3.8, Chloride 109 H, Carbon Dioxide 27.0, Anion Gap 6, BUN 37 H, Creatinine 0.9 3, Estim Creat Clear Calc 61.24, Est GFR (MDRD) Af Amer 100, Est GFR (MDRD) Non- Af 83, BUN/Creatinine Ratio 39.9 H, Glucose 81, Calcium 8.1 L, Phosphorus 3.8, Magnesium 2.3 Radiography Diagnostic Testing: Radiology Impression Brain MRI 04/26/23 12:00 IMPRESSION: 1. No MRI evidence of acute or subacute ischemic infarct or remote ischemic infarct. 2. Confluent chronic white matter ischemic changes in the left forceps major. 3. No interval change when compared to 09/12/2020. Electronically Signed: Kevin Argueta MD at 13:46 EDT Reading Location ID and State: [facility] / [place] , Service support , Physical Exam Narrative GENERAL: cooperative HEENT: Atraumatic; normocephalic EYES; Anicteric, Normal Conjunctiva NECK; supple, normal thyroid, RESPIRATORY: Diminished to auscultation CARDIOVASCULAR: Regular S1 S2, GI: soft, normoactive bowel sounds, : No Renal angle tenderness; EXTREMITIES: No edema, no clubbing, MUSCULOSKELETAL: no muscle wasting NEURO: Awake; no lateralizing signs. SKIN: No Rash PSYCH; Flat affect Assessment & Plan Assessment/Plan (1) CVA (cerebral vascular accident): PLAN: Plan Patient is an 82-year-old gentleman who was admitted with slurred speech and unstable gait concerning for acute CVA admitted to monitored bed for further management 1. Suspected CVA ? Patient presented with slurred speech and gait imbalance. Admitted to a monitored bed where patient is currently undergoing evaluation including MRI of the brain which has been ordered. Initial head CTA of the head and neck reviewed, did not demonstrate any hemodynamically significant ICA stenosis. Patient is on dual antiplatelet therapy with aspirin and Plavix as well as atorvastatin ?04/27/2023 Patient underwent imaging studies~ no MRI evidence of acute or subacute ischemic infarct or remote ischemic infarct. Patient modified barium swallow (no esophageal phase) was difficult due to kyphotic posture. Consult subsequently placed to GI for possible EGD 2. Coronary artery disease ? With previous history of STEMI. We will continue with guideline directed medical therapy 3. Peripheral arterial disease ? With previous intervention proximal left peroneal to distal left peroneal angioplasty x3 11/02/2021, patient is on Pletal continue 4. Proximal A-fib ? Rate controlled patient was not started on systemic anticoagulation after he was deemed to be a poor candidate. 5. Dyslipidemia -Patient is on statin therapy, continued at home dose 6 BPH ? Patient is on finasteride continued 7. Restless leg syndrome ? Symptomatic treatment with tizanidine 8. DVT prophylaxis ? SC Lovenox 9. Physical deconditioning - Requested for PT OT eval and social media executive to assist with discharge planning Time spent in the patient's overall evaluation,decision-making process, review of diagnostic data, adjustment of management, discussion with other providers, nursing nursing and ancillary staff involved in patient's care documentation,40 Minutes Charges/Coding Visit Charges Inpatient E&M: 65690 Subs Hosp L2
[2023-04-27] MEDS: Menthol/Lanolin/Calamine/Znox 113 GM Tube 1 APPLIC TOPICAL ×3 (06:54→22:14)
--- NOTE | 2023-04-27 07:47 | CASEMGMT ---
Social Work PHQ-9 not completed as pt was negative for stroke. AZAEL Sood
[2023-04-27] MEDS: Clopidogrel Bisulfate 75 MG Tablet PO (09:50)
[2023-04-27] MEDS: Enoxaparin 40 MG/0.4 ML Syringe SC (09:50)
[2023-04-27] MEDS: Cilostazol 50 MG Tablet PO ×2 (09:51→22:15)
[2023-04-27] MEDS: Finasteride 5 MG Tablet PO (09:51)
[2023-04-27] MEDS: Gabapentin 100 MG Capsule PO (09:53)
--- NOTE | 2023-04-27 13:59 | CASEMGMT ---
Social Work SW spoke w/daughter, let her know LW/POA not on file and asked her to bring in the documents as able. AZAEL Sood
--- NOTE | 2023-04-27 14:03 | CASEMGMT ---
SW met w/pt and daughter in room in regard to discharge plan. SW spoke w/them about pt going somewhere for rehab as he needed the assist of two with therapy. Pt reluctantly agreeable. SW gave daughter lists of both rehab and SNF in pt's preferred geographic area, complete with quality and resource use data and in pt's insurance network, off of [facility]. SW reviewed the difference between rehab and TCU, pt aware as he has been to both units. SW asked pt and daughter to review the lists and come up with a few choices, and SW to follow up w/them on Saturday. Plan: rehab or SNF most likely, SW to follow up Saturday for choices. AZAEL Sood
[2023-04-27] MEDS: Atorvastatin Calcium 80 MG Tablet PO (22:14)
[2023-04-27] MEDS: tiZANidine HCl 2 MG Tablet PO (22:14)
[2023-04-27] MEDS: Gabapentin 100 MG Capsule 200 MG PO (22:14)
[2023-04-28 02:27] VITALS: BP 116/73; PULSE 76; RESP 16; TEMP 36.6; O2SAT 97; BMI 27.5
[2023-04-28 02:44] VITALS: BMI 27.5
[2023-04-28 02:47] VITALS: BMI 27.5
[2023-04-28 06:03] VITALS: BP 116/55; PULSE 64; RESP 16; TEMP 36.4; O2SAT 96
[2023-04-28] MEDS: Loperamide 2 MG Capsule PO (06:05)
[2023-04-28] MEDS: Menthol/Lanolin/Calamine/Znox 113 GM Tube 1 APPLIC TOPICAL ×3 (06:05→21:33)
--- NOTE | 2023-04-28 07:24 | PN.HOSP_ITS ---
Reason for Visit Reason for Visit: Diagnoses Cerebral infarction, unspecified (04/25/23) Subjective Subjective Patient seen complains of headache in the occipital region. Also complains of feeling weak. Transferred from intensive care unit to regular nursing floor requested for PT OT eval Objective Data Objective Data Vital Signs: Vital Signs Temp Pulse Resp BP Pulse Ox O2 Del Method 97.6 F L 64 16 116/55 L 96 Room Air 04/28/23 06:03 04/28/23 06:03 04/28/23 06:03 04/28/23 06:03 04/28/23 06:03 04/28/23 06:03 Oxygen Delivery Method Room Air Weight: 84.2 kg Body Mass Index (BMI) 27.5 Intake & Output: Intake and Output for Last 24 Hours 04/26/23 04/27/23 04/28/23 23:59 23:59 22:59 Intake Total 1330 / 1330 Output Total 1175 / 1175 900 / 1200 400 / 400 Balance 155 / 155 -900 / -1200 -400 / -400 Lab / Micro Data 04/28/23 06:15 04/27/23 05:30 Micro: Microbiology 04/27/23 15:01 Stool C. difficile GDH Antigen & Toxins - Final 04/27/23 15:01 Stool C. difficile DNA Amplification - Final Radiography Diagnostic Testing: Radiology Impression Echocardiogram 04/25/23 20:27 Interpretation Summary The estimated ejection fraction is 55 %. Diastolic function is indeterminate. Ordering Physician: Diana Weinberg Referring Physician: Ankur Medina Performed By: Meredith Frost RCS Physical Exam Narrative GENERAL: cooperative HEENT: Atraumatic; normocephalic EYES; Anicteric, Normal Conjunctiva NECK; supple, normal thyroid, RESPIRATORY: Diminished to auscultation CARDIOVASCULAR: Regular S1 S2, GI: soft, normoactive bowel sounds, : No Renal angle tenderness; EXTREMITIES: No edema, no clubbing, MUSCULOSKELETAL: no muscle wasting NEURO: Awake; no lateralizing signs. SKIN: No Rash PSYCH; Flat affect Assessment & Plan Assessment/Plan (1) CVA (cerebral vascular accident): PLAN: Plan Patient is an 82-year-old gentleman who was admitted with slurred speech and unstable gait concerning for acute CVA admitted to monitored bed for further management 1. Suspected CVA ? Patient presented with slurred speech and gait imbalance. Admitted to a monitored bed where patient is currently undergoing evaluation including MRI of the brain which has been ordered. Initial head CTA of the head and neck reviewed, did not demonstrate any hemodynamically significant ICA stenosis. Patient is on dual antiplatelet therapy with aspirin and Plavix as well as atorvastatin ?04/27/2023 Patient underwent imaging studies~ no MRI evidence of acute or suba cute ischemic infarct or remote ischemic infarct. Patient modified barium swallow (no esophageal phase) was difficult due to kyphotic posture. Consult subsequently placed to GI for possible EGD ? CVA RULED OUT. Requested for PT OT eval and transition social worker to assist with discharge plan 2. Coronary artery disease ? With previous history of STEMI. We will continue with guideline directed medical therapy 3. Peripheral arterial disease ? With previous intervention proximal left peroneal to distal left peroneal angioplasty x3 11/02/2021, patient is on Pletal continue 4. Proximal A-fib ? Rate controlled patient was not started on systemic anticoagulation after he was deemed to be a poor candidate. 5. Dyslipidemia -Patient is on statin therapy, continued at home dose 6. BPH ? Patient is on finasteride continued 7. Restless leg syndrome ? Symptomatic treatment with tizanidine 8. DVT prophylaxis ? SC Lovenox 9. Physical deconditioning - Requested for PT OT eval and transition social worker to assist with discharge planning 10. Cervicogenic headache ? Plan is to treat symptomatically Time spent in the patient's overall evaluation,decision-making process, review of diagnostic data, adjustment of management, discussion with other providers, nursing nursing and ancillary staff involved in patient's care documentation,40 Minutes Charges/Coding Visit Charges Inpatient E&M: 65306 Subs Hosp L2
[2023-04-28 07:26] VITALS: O2SAT 93
[2023-04-28 08:07] LABS: Absolute Lymphocyte Count 0.68 X10^3/uL (0.83-4.51); Absolute Neutrophil Count 3.6 X10^3/uL (2.0-7.7); Basophil# 0.01 X10^3/uL; Basophil% 0.2 % (0-1); Eosinophil# 0.03 X10^3/uL; Eosinophils% 0.6 % (0-5); Hematocrit 31.8 % (40-54); Hemoglobin 10.3 g/dL (13.0-16.5); Lymphocyte # 0.68 X10^3/ul (0.83-4.51); Lymphocyte % 13.6 % (19-41); Mean Corp Hgb Conc 32.4 g/dL (32-36); Mean Corpuscular Hgb 29.9 pg (27.0-32.0); Mean Corpuscular Volume 92.4 fL (80-94); Mean Platelet Vol. 10.4 fl (6.2-12.0); Monocyte# 0.65 X10^3/uL; NRBC Flagged by Analyzer 0 % (0-5); Neutrophil # 3.62 X10^3/uL (2.7-7.7); Neutrophil % 72.6 % (47-70); Platelet Count 253 K/mm3 (150-450); RBC Distribution Width CV 15.1 % (11.6-14.6); RBC Distribution Width SD 50.2 fl (35.1-43.9); Red Blood Count 3.44 M/mm3 (4.6-6.2)
[2023-04-28 08:31] LABS: Anion Gap 6 (5-15); BUN 26 mg/dL (7-18); BUN/Creat Ratio 39.8 RATIO (10-20); Calcium,Total 8.4 mg/dL (8.5-10.1); Chloride 107 mmol/L (98-107); Creatinine, Serum 0.65 mg/dL (0.70-1.30); EST Glomerular Filtration Rate 124 mL/min (>60); Est Glom Filt Rate - Afr Amer 150 mL/min (>60); Estimated Creatinine Clearance 56.95 ml/min; Glucose 73 mg/dL (74-106); Potassium 3.7 mmol/L (3.5-5.1); Sodium Level 141 mmol/L (136-145)
[2023-04-28 09:22] VITALS: BP 111/67; PULSE 66; RESP 16; TEMP 36.6; O2SAT 96
[2023-04-28] MEDS: Gabapentin 100 MG Capsule PO (10:50)
[2023-04-28] MEDS: Clopidogrel Bisulfate 75 MG Tablet PO (10:50)
[2023-04-28] MEDS: Cilostazol 50 MG Tablet PO ×2 (10:50→21:33)
[2023-04-28] MEDS: Enoxaparin 40 MG/0.4 ML Syringe SC (10:51)
[2023-04-28] MEDS: Finasteride 5 MG Tablet PO (10:51)
[2023-04-28 16:07] VITALS: BP 100/55; PULSE 65; RESP 18; TEMP 36.8; O2SAT 98
[2023-04-28 21:32] VITALS: BP 93/51; PULSE 86; RESP 16; TEMP 37.1; O2SAT 96
[2023-04-28] MEDS: Miconazole Nitrate 43 GM Bottle 1 APPLIC TOPICAL (21:33)
[2023-04-28] MEDS: Gabapentin 100 MG Capsule 200 MG PO (21:33)
[2023-04-28] MEDS: Atorvastatin Calcium 80 MG Tablet PO (21:33)
[2023-04-28] MEDS: tiZANidine HCl 2 MG Tablet PO (21:33)
[2023-04-29] VITALS (13 sets, daily range): BP systolic 84–119; BP diastolic 39–72; PULSE 56–84; RESP 16–18; TEMP 36.6–37.7; O2SAT 92–100; BMI 27.2; BMI 27.1
--- NOTE | 2023-04-29 | IMM_PTH ---
PATIENT: SARA SAHA LOC: MS3 U#:[id number] AGE/SX: 82/M [place] [facility] [place]: Dr. Ankur Chao DO : 1940 BED: 1 DIS: 04/30/2023 SPEC #: [id number] RECD: 04/30/23 12:49 STATUS: CARLOS REQ #: [id number] IVONNE: 04/29/23 00:[address]: Ankur Chao DEPT: IMMUNOHISTOCHEMISTRY RECD BY: Emery Lewis ENTERED: 04/30/23 12:50 SP TYPE: IMMUNO OTHR DR: MD Dr. Manoj Maciel MD Dr. Mark Stutzman, DO Tissues: Esophagus, NOS Procedures: P53 (initial) KI-67 (add) PHYSICIAN & INSTITUTION [place] [id number] SPECIMEN INFORMATION: Tissue Source: Distal esophagus Clinical Info: Dysphagia Specimen Number: [id number] CPT code: 93001, 19628 METHODOLOGY: Deparaffinized sections of prefer/formalin-fixed tissue or PAP/DQ stained slides are incubated with monoclonal/polyclonal antibodies/oligonucleotide probes. Localization is made via biotin free immunoperoxidase method. Appropriate controls are performed and reacted as expected. Results on target cell population are indicated in the following table: RESULTS: ANTIBODY / CLONE RESULT P53 (DO-7) negative Ki-67 (30-9) positive, low These tests were developed and their performance characteristics determined by [facility]. They may not have been cleared or approved by the U.S. Food and Drug Administration. The FDA has determined that such clearance or approval is not necessary. The above immunohistochemical/dualISH markers are ordered and reviewed by the Pathologist. INTERPRETATION: Distal esophagus, biopsy: Negative for dysplasia CATHERINE:edwige 05/01/2023
[2023-04-29] MEDS: 0.9% Normal Saline (500mL Bag) 500 ML 999 ML IV ×3 (04:15→09:48)
[2023-04-29] MEDS: 0.9% Saline Lock 10 ML Syringe IV ×2 (04:45→17:33)
[2023-04-29] MEDS: Menthol/Lanolin/Calamine/Znox 113 GM Tube 1 APPLIC TOPICAL ×2 (06:14→20:52)
[2023-04-29 06:48] LABS: Absolute Lymphocyte Count 0.82 X10^3/uL (0.83-4.51); Absolute Neutrophil Count 3.2 X10^3/uL (2.0-7.7); Basophil# 0.01 X10^3/uL; Basophil% 0.2 % (0-1); Eosinophil# 0.04 X10^3/uL; Eosinophils% 0.8 % (0-5); Hematocrit 29.1 % (40-54); Hemoglobin 9.2 g/dL (13.0-16.5); Lymphocyte # 0.82 X10^3/ul (0.83-4.51); Lymphocyte % 17.3 % (19-41); Mean Corp Hgb Conc 31.6 g/dL (32-36); Mean Corpuscular Hgb 30.3 pg (27.0-32.0); Mean Corpuscular Volume 95.7 fL (80-94); Mean Platelet Vol. 10.6 fl (6.2-12.0); Monocyte# 0.64 X10^3/uL; Monocyte% 13.5 % (0-10); NRBC Flagged by Analyzer 0 % (0-5); Neutrophil # 3.23 X10^3/uL (2.7-7.7); Platelet Count 253 K/mm3 (150-450); RBC Distribution Width CV 14.8 % (11.6-14.6); RBC Distribution Width SD 51.2 fl (35.1-43.9); Red Blood Count 3.04 M/mm3 (4.6-6.2); White Blood Count 4.8 K/mm3 (4.4-11.0)
[2023-04-29 07:26] LABS: Anion Gap 4 (5-15); BUN 26 mg/dL (7-18); BUN/Creat Ratio 29.8 RATIO (10-20); Calcium,Total 8.4 mg/dL (8.5-10.1); Chloride 110 mmol/L (98-107); Creatinine, Serum 0.87 mg/dL (0.70-1.30); EST Glomerular Filtration Rate 89 mL/min (>60); Est Glom Filt Rate - Afr Amer 107 mL/min (>60); Estimated Creatinine Clearance 65.46 ml/min; Glucose 78 mg/dL (74-106); Sodium Level 141 mmol/L (136-145)
[2023-04-29] MEDS: Miconazole Nitrate 43 GM Bottle 1 APPLIC TOPICAL ×2 (07:57→20:52)
[2023-04-29 08:45] LABS: Pathologist Review Reviewed
--- NOTE | 2023-04-29 08:58 | NURSING ---
This RN called Patients daughter Arti and informed her that time of greens picker for EGD today is 1000. Chelsea is already on her way.
--- NOTE | 2023-04-29 09:26 | WOUNDNOTE ---
wound photo: left Achilles area
--- NOTE | 2023-04-29 09:27 | WOUNDNOTE ---
wound photo: left inner buttock
--- NOTE | 2023-04-29 10:06 | NURSING ---
REport given to Meghan DRUMMOND in ENDO regarding pts low bp and he is on 3rd bolus.
[2023-04-29] MEDS: Lactated Ringers 1,000 ML 15 ML IV (10:23)
--- NOTE | 2023-04-29 11:15 | ESO_PTH ---
PATIENT: SARA SAHA LOC: MS3 U#:[id number] AGE/SX: 82/M [place] [facility] [place]25/[address]: Dr. Ankur Chao DO : 1940 BED: 1 DIS: 04/30/2023 SPEC #: [id number] RECD: 04/29/23 13:08 STATUS: CARLOS MCDONALD #: [id number] IVONNE: 04/29/23 11:[address]: Ankur Chao DEPT: SURGICAL PATHOLOGY RECD BY: Liz Russell ENTERED: 04/29/23 13:51 SP TYPE: ESOPH BX JAQUELIN DR: MD Dr. Manoj Maciel MD Dr. Mark Stutzman, DO Tissues: Esophagus, NOS Procedures: Surgery Specimen Level IV HEADER OPERATION: EGD with dilation, biopsy PRE-OP DIAGNOSIS: Dysphagia TISSUE SUBMITTED: Distal esophagus MICROSCOPIC DIAGNOSIS Distal esophagus, biopsy: Fragments of gastroesophageal mucosa with focal intestinal metaplasia (goblet cell metaplasia), consistent with Khanna's esophagus. Chronic inflammation. Negative for dysplasia. See comment. SJ: 04/30/2023 COMMENT Alcian blue/PAS stain with matched control is used in the evaluation of the specimen. Immunohistochemistry ([id number]) for P53 and Ki-67 will be performed and results will be reported separately. MICROSCOPIC DESCRIPTION Slides are reviewed. GROSS DESCRIPTION Received is one container labeled with the patient name and designated distal esophagus. The specimen consists of multiple irregular fragments of light hernandez soft tissue that in aggregate measure 1 x 0.5 x 0.1 cm. The specimen is totally submitted in one cassette. / CATHERINE:edwige 04/29/23 TC:5 CPT: 85129, 12846
--- NOTE | 2023-04-29 11:39 | OP.EGD_ITS ---
Patient Name: Saqib Cruz Procedure Date: 04/29/2023 11:10 AM Date of : 1940 Age: 82 Procedure: Upper GI endoscopy Indications: Dysphagia Providers: Cam Monterroso DO Medicines: Monitored Anesthesia Care Patient Profile: This is an 82 year old male. Refer to note in patient chart for documentation of history and physical. Patient has symptoms of acute dysphagia. Complications: No immediate complications. Procedure: Pre-Anesthesia Assessment: - Prior to the procedure, a History and Physical was performed, and patient medications and allergies were reviewed. The patient is competent. The risks and benefits of the procedure and the sedation options and risks were discussed with the patient. All questions were answered and informed consent was obtained. Patient identification and proposed procedure were verified by the physician. Mental Status Examination: normal. CV Examination: normal. Prophylactic Antibiotics: The patient does not require prophylactic antibiotics. Prior Anticoagulants: The patient has taken no anticoagulant or antiplatelet agents. ASA Grade Assessment: III - A patient with severe systemic disease. After reviewing the risks and benefits, the patient was deemed in satisfactory condition to undergo the procedure. The anesthesia plan was to use monitored anesthesia care (MAC). Immediately prior to administration of medications, the patient was re-assessed for adequacy to receive sedatives. The heart rate, respiratory rate, oxygen saturations, blood pressure, adequacy of pulmonary ventilation, and response to care were monitored throughout the procedure. The physical status of the patient was re-assessed after the procedure. After obtaining informed consent, the endoscope was passed under direct vision. Throughout the procedure, the patient's blood pressure, pulse, and oxygen saturations were monitored continuously. The gastroscope was introduced through the mouth, and advanced to the second part of duodenum. Scope In: 11:20:13 AM Scope Out: 11:29:14 AM Total Procedure Duration Time 0 hours 9 minutes 1 second Findings: The oropharynx was normal. Abnormal motility was noted at the cricopharyngeus. The cricopharyngeus was abnormal. There is a decrease in motility of the esophageal body. The distal esophagus/lower esophageal sphincter is spastic, but gives up passage to the endoscope. Secondary peristaltic waves are noted. A guidewire was placed and the scope was withdrawn. Dilation was performed with a Savary dilator with no resistance at 54 Fr. The dilation site was examined and showed moderate mucosal disruption. Estimated blood loss was minimal. The Z-line was irregular and was found 39 cm from the incisors. Biopsies were taken with a cold forceps for histology. Verification of patient identification for the specimen was done. Estimated blood loss was minimal. No other significant abnormalities were identified in a careful examination of the stomach. A small hiatal hernia was present. An acquired benign-appearing, intrinsic moderate stenosis was found in the duodenal bulb and was traversed. Patchy moderately congested mucosa without active bleeding and with no stigmata of bleeding was found in the duodenal bulb and in the first portion of the duodenum. Impression: - Normal oropharynx. - Abnormal esophageal motility, suspicious for achalasia. - Z-line irregular, 39 cm from the incisors. Biopsied. - Small hiatal hernia. - Acquired duodenal stenosis. - Congested duodenal mucosa. Recommendation: - [facility] to [facility] for [facility] care. - Diet per speech therapy. - Use Protonix (pantoprazole) 20 mg PO BID. - Continue present medications. Procedure Code(s): --- Professional --- 03650, Esophagogastroduodenoscopy, flexible, transoral; with insertion of guide wire followed by passage of dilator(s) through esophagus over guide wire 53523, 59,51, Esophagogastroduodenoscopy, flexible, transoral; with biopsy, single or multiple CPT copyright 2021 [employer]. All rights reserved. The codes documented in this report are preliminary and upon appeals assistant review may be revised to meet current compliance requirements. Cam Monterroso DO 04/29/2023 11:39:11 AM This report has been signed electronically. Number of Addenda: 0 Note Initiated On: 04/29/2023 11:10 AM
--- NOTE | 2023-04-29 11:39 | OP.CCLET_ITS ---
04/29/2023 Ankur Medina [address] [facility] [place] [address] Re : Upper GI endoscopy procedure for Saqib [facility] Dear Dr. Medina This procedure was performed on Saturday, April 29, 2023. My impressions and recommendations are as follows: Impressions : - Normal oropharynx. - Abnormal esophageal motility, suspicious for achalasia. - Z-line irregular, 39 cm from the incisors. Biopsied. - Small hiatal hernia. - Acquired duodenal stenosis. - Congested duodenal mucosa. Recommendations : - Return patient to [facility] for ongoing care. - Diet per speech therapy. - Use Protonix (pantoprazole) 20 mg PO BID. - Continue present medications. My findings are described in the full procedure note, which is enclosed. If I can be of further assistance, please feel free to contact me at . Sincerely, Cam Friend, 04/29/2023 11:39:11 AM This report has been signed electronically.
--- NOTE | 2023-04-29 11:49 | CASEMGMT ---
Social Work - discharge planning follow up To patient's room to check on choices for aftercare. Rehab and SNF were discussed on Saturday. Patient off floor for a procedure. Called the patient's daughter Arti at [phone] and left message to call this senior technical writer to discuss choices. Plan: Waiting on facility choices so can start referral process for patient. -BAO Hardin
--- NOTE | 2023-04-29 12:09 | NURSING ---
Just arrived back to room via bed from [facility].
--- NOTE | 2023-04-29 16:17 | CHAPLAIN ---
Type of Pastoral Visit _x__ Initial Visit ___ Follow-up Visit ___ On-call Visit ___ General Patient Visit ___ Spiritual Assessment ___ Family Conference ___ Bereavement ___ Rapid Response ___ Code Blue ___ Other (describe below) Pastoral Care Referral From _x__ Patient ___ Family ___ Nurse ___ Physician ___ Associate Professor Of Literacy ___ Electrical Engineer Mep ___ Other (describe below) Sacrament/Intervention _x__ Active listening ___ Anointing ___ Sikh ___ Bereavement ___ Communion ___ Pooja exploration ___ _x__ Life review _x__ Prayer ___ Reconciliation ___ Sacrament of Sick _x__ Supportive presence ___ Wedding ___ Other (describe below) Pastoral Comments patient and daughter are in the room; pt had a mini stroke and was just evaluated for swallowing test; pt expects to go to Rehab floor if possible; pt talks about family as his greatest asset and how he thinks often of his and their long marriage; pt welcomes presence and prayer for support today
[2023-04-29] MEDS: Juven (unflavored) Packet 1 PACKET PO (17:30)
[2023-04-29] MEDS: Clopidogrel Bisulfate 75 MG Tablet PO (17:31)
--- NOTE | 2023-04-29 18:34 | PN.HOSP_ITS ---
Reason for Visit Reason for Visit: Diagnoses Cerebral infarction, unspecified (04/25/23) Subjective Subjective Patient was seen and examined today, had a long discussion with the patient's daughter who was in the room at the time of one of my visits today, I recommended that she consider a couple of other nursing homes as the rehab unit here does not have a bed for the patient and neither does TCU. Patient had an EGD today with dilation, there was no evidence of bleeding noted on EGD. I also discussed some options for the patient with the thought that he could have had a TIA, I asked the patient if he would consider taking a baby aspirin in addition to his Plavix, I outlined the problems with possible bleeding with this combination but the patient elected to agree to take aspirin at least for the short-term (21 days). Objective Data Objective Data Vital Signs: Vital Signs Temp Pulse Resp BP Pulse Ox O2 Del Method 98.0 F 64 16 106/46 L 94 Room Air 04/29/23 17:34 04/29/23 17:34 04/29/23 17:34 04/29/23 17:34 04/29/23 17:34 04/29/23 17:34 Oxygen Delivery Method Room Air Weight: 83.4 kg Body Mass Index (BMI) 27.1 Intake & Output: Intake and Output for Last 24 Hours 04/28/23 04/28/23 04/29/23 00:59 23:59 23:59 Intake Total 1875.75 / 1875.75 Output Total 375 / 375 Balance 1500.75 / 1500.75 Lab / Micro Data 04/29/23 05:50 04/29/23 05:50 Labs: Laboratory Results - last 24 hr 04/26/23 04:35: Diff Path Review Reviewed 04/29/23 05:50: WBC 4.8, RBC 3.04 L, Hgb 9.2 L, Hct 29.1 L, MCV 95.7 H, MCH 30.3, MCHC 31.6 L, RDW Std Deviation 51.2 H, RDW Coeff of [place] 14.8 H, Plt Count 253, MPV 10.6, Immature Gran % (Auto) 0.200, Neut % (Auto) 68.0, Lymph % (Auto) 17.3 L, [place] % (Auto) 13.5 H, Eos % (Auto) 0.8, Baso % (Auto) 0.2, Absolute Neuts (auto) 3.2, Absolute Lymphs (auto) 0.82 L, Nucleated RBC % 0, Sodium 141, Potassium 4.0, Chloride 110 H, Carbon Dioxide 27.0, Anion Gap 4 L, BUN 26 H, Creatinine 0.87, Estim Creat Clear Calc 65.46, Est GFR (MDRD) Af Amer 107, Est GFR (MDRD) Non-Af 89, BUN/Creatinine Ratio 29.8 H, Glucose 78, Calcium 8.4 L Micro: Microbiology 04/27/23 15:01 Stool C. difficile GDH Antigen & Toxins - Final 04/27/23 15:01 Stool C. difficile DNA Amplification - Final Physical Exam Const alert, oriented x3, no apparent distress and average body habitus General Appearance: cooperative, well kempt and well developed Orientation / Consciousness: awake, oriented to person, oriented to place and oriented to time HEENT normocephalic, head/scalp atraumatic and moist oral mucous membranes Eyes PERRL, EOMs intact bilaterally and conjunctivae normal Neck supple, no JVD, thyroid normal and no carotid bruits General: trachea midline Resp normal respiratory effort, no retractions, no use of accessory muscles and clear to auscultation bilaterally Auscultation: Negative for rales, rhonchi or wheezes Cardio regular rate, regular rhythm, S1 normal heart sound, S2 normal heart sound, no murmurs, no rub and no gallops GI normal to inspection, nondistended, normoactive bowel sounds, soft to palpation, non-tender and non-distended Extremity no clubbing, cyanosis or edema Skin no rashes or lesions noted General Skin Exam: no breakdown Neuro oriented x3, CN's II-XII intact bilaterally, moves all extremities, no focal motor deficits and no sensory deficits noted Sensorium / Orientation: awake, alert, oriented to person, oriented to place and oriented to time Speech: speech normal Psych affect normal Assessment & Plan Assessment/Plan (1) TIA (transient ischemic attack): PLAN: Plan 1. Transient ischemic attack-patient's MRI was negative for an acute stroke, I tried to get an idea of how long the patient's symptoms were present and he was unable to give me a clear answer. Again I have elected to place the patient on aspirin 81 mg in addition to his Plavix-he will take this combination for 21 days. Patient will remain on a statin at this time. #2 acute debility-patient has agreed to go to either an extended care facility or rehab facility for inpatient rehab services, I am awaiting confirmation if we have a bed tomorrow, if not here, patient's daughter will have to consider another facility-patient's daughter knows this. #3 coronary artery disease-patient will remain on his present medications #4 hyperlipidemia-patient is on a statin at this time #5 abnormal esophageal motility suspicious for achalasia-patient underwent dilation today, patient will remain on Protonix #6 chronic anemia-I will obtain a TIBC, iron level, and ferritin on the patient, he was iron deficient at 1 time Total clinical time spent by myself addressing the patient's medical issues, reviewing all of his data, and collaborating with patient's care team: 35 minutes Charges/Coding Visit Charges Inpatient E&M: 03660 Subs Hosp L2
--- NOTE | 2023-04-29 18:54 | CASEMGMT ---
Social Work - Discharge planning This information writer followed up with patient and daughter Arti today about Rehab and SNF lists provided over the weekend. First choice is [facility] and second choice is [facility]. Uncertain what a 3rd choice would be. Arti asked if patient could be admitted ot TCU, if no beds in [facility], then transfer to [facility] when a bed becomes available. Educated that transferring from SNF to [facility] would be largely in part on level of care need at time of bed availability. Referral to Nicolasa in [facility] admissions. There will be not beds until 05.02.23, unless a pending precert falls through for other referrals. Otherwise, TCU would be able to accept patient. Transferring from TCU to [facility] would not be an option. Discussed with hospitalist, and patient will likely be ready for discharge prior to 05.02.23. Spoke with daughter about status of referrals. Daughter spoke with patient and then called this information writer. Patient still hopeful for [facility] and is first choice. However, patient and daughter understand that patient may be ready for discharge prior to a bed being available on the [facility]. In that case, patient is willing to go to [facility]. Plan: [facility] versus TCU, based on day of discharge and what unit as openings. -BAO Hardin
[2023-04-29] MEDS: Atorvastatin Calcium 80 MG Tablet PO (21:02)
[2023-04-29] MEDS: Gabapentin 100 MG Capsule 200 MG PO (21:02)
[2023-04-29] MEDS: Cilostazol 50 MG Tablet PO (21:02)
[2023-04-29] MEDS: tiZANidine HCl 2 MG Tablet PO (21:02)
[2023-04-29] MEDS: Pantoprazole Sodium 20 MG Tablet PO (21:04)
[2023-04-30 01:58] VITALS: BMI 27.1
[2023-04-30 03:00] VITALS: BP 120/62; PULSE 59; RESP 16; TEMP 36.5; O2SAT 96
[2023-04-30 05:31] VITALS: BMI 27.3
[2023-04-30] MEDS: Acetaminophen 325 MG Tablet 650 MG PO (05:37)
[2023-04-30 07:36] LABS: Hematocrit 32.3 % (40-54); Hemoglobin 10.1 g/dL (13.0-16.5)
[2023-04-30 08:07] LABS: Ferritin 46 ng/mL (26-388); Iron 33 ug/dL (65-175); Iron Binding Capacity,Total 288 ug/dL (250-450); PERCENT IRON SATURATION 11.5 % (15.0-55.0)
[2023-04-30 08:27] VITALS: BP 110/53; PULSE 74; RESP 18; TEMP 36.3; O2SAT 96
[2023-04-30] MEDS: Miconazole Nitrate 43 GM Bottle 1 APPLIC TOPICAL (09:11)
[2023-04-30] MEDS: Gabapentin 100 MG Capsule PO (09:26)
[2023-04-30] MEDS: Finasteride 5 MG Tablet PO (09:27)
[2023-04-30] MEDS: Enoxaparin 40 MG/0.4 ML Syringe SC (09:27)
[2023-04-30] MEDS: Clopidogrel Bisulfate 75 MG Tablet PO (09:27)
[2023-04-30] MEDS: Pantoprazole Sodium 20 MG Tablet PO (09:27)
--- NOTE | 2023-04-30 09:40 | CASEMGMT ---
Addendum entered by Ольга Mendoza 04/30/23 12:42: Social work Per physician, pt to dc today to Inpatient rehab. Nicolasa in [facility] and pt bedside nurse notified. Discharge orders faxed to [facility]. Disposition: [facility] Inpatient Rehab DEYSI Valera Original Note: Social Work SW spoke with Nicolasa in Inpatient Rehab and pt has been accepted and can admit today. Physician updated and pt is ready for discharge today. Phone call to pt's daughter Arti and updated that [facility] can accept with likely dc today. Dgt agreeable and requesting that she be allowed to tell the pt of the discharge plan. Plan: Inpatient Rehab, when medically ready DEYSI Valera
--- NOTE | 2023-04-30 09:56 | NURSING ---
This RN is aware of Vital Signs taken this morning by Gregory mccabe Patillas Roller Varnisher Addis.
--- NOTE | 2023-04-30 10:46 | WOUNDNOTE ---
wound VAC dressing in place to the left Achilles area. Dressing to be changed tomorrow. Pt states he is hoping to be able to go to rehab here at the hospital. Pt denies further needs at this time.
[2023-04-30] MEDS: Cilostazol 50 MG Tablet PO (10:48)
--- NOTE | 2023-04-30 11:05 | PCM.TXEXTCAR ---
Diet Diet Order/Speech Therapy: 04/25/23 20:27 Diet: Cardiac - Heart Healthy Food consistency:: Regular Liquid Consistency:: Honey/Moderately Thick Diet Comments: Supervision/Assistance feeding as needed Wound(s) Left achilles: Wound Type: nonhealing wound Dressing Change: KCI wound VAC Left buttock: Wound Type: Pressure Injury Dressing Change: Mepilex Rt areola: Wound Type: scabbed area Therapies Physical Therapy: Eval and Treat Occupational Therapy: Eval and Treat Speech Therapy: Eval and Treat Problem/Diagnosis (1) TIA (transient ischemic attack): Status: Acute Code(s): G45.9 - Transient cerebral ischemic attack, unspecified Plan 1. Transient ischemic attack-patient's MRI was negative for an acute stroke, I tried to get an idea of how long the patient's symptoms were present and he was unable to give me a clear answer. Again I have elected to place the patient on aspirin 81 mg in addition to his Plavix-he will take this combination for 21 days. Patient will remain on a statin at this time. #2 acute debility-patient has agreed to go to either an extended care facility or rehab facility for inpatient rehab services, I am awaiting confirmation if we have a bed tomorrow, if not here, patient's daughter will have to consider another facility-patient's daughter knows this. #3 coronary artery disease-patient will remain on his present medications #4 hyperlipidemia-patient is on a statin at this time #5 abnormal esophageal motility suspicious for achalasia-patient underwent dilation today, patient will remain on Protonix #6 chronic anemia-iron deficiency, will place on ferrous sulfate Total clinical time spent by myself addressing the patient's medical issues, reviewing all of his data, and collaborating with patient's care team: 35 minutes Allergies/Procedures Done in Hospital Allergies No Known Allergies Allergy (Verified 04/25/23 17:01) Procedures: EGD Type of Care/Length of Stay Estimated LOS: Convalescent Care Less Than 30 days Type of Care Needed: Acute Rehab Rehab Potential: Good Prognosis: Good Additional Orders/Day of Discharge H&P will serve as current which was dated: 04/25/23 Day of Discharge: 04/30/23 Dietary and Speech Recommendations Dietitian Recommendations/Changes: Continue Cardiac diet as ordered Will order Boaz bid w/ medpass to help w/ L achilles stasis ulcer healing if consumed Discharge Plan Admission Admit Date/Time: 04/25/23 19:59 Primary Reason for Your Visit: TIA, debility Attending Provider: Ankur Chao Primary Care Provider: Ankur Medina Consulting Providers: Diana Weinberg; Manoj England Discharge Orders/Prescriptions Prescriptions: New melatonin 3 mg Tablet 3 mg PO QHS PRN PRN (Reason: Insomnia) Qty: 0 0RF menthol-zinc oxide [Calmoseptine] 0.44-20.6 % Ointment 1 applic topical TID Qty: 0 0RF Protocol: *Topical Application Instructions APPLICATION INSTRUCTIONS: to buttocks and perirectal area Boaz (with collagen) 7-7-1.5 gram Powder In Packet 1 packet PO BIDCM Qty: 0 0RF miconazole nitrate [Desenex] 2 % Powder 1 applic topical BID Qty: 0 0RF Protocol: *Topical Application Instructions APPLICATION INSTRUCTIONS: Apply to groin sennosides-docusate sodium [Stool Softener-Stimulant Laxat] 8.6-50 mg Tablet 2 tab PO BID PRN PRN (Reason: Constipation) Qty: 0 0RF pantoprazole 20 mg Tablet,Delayed Release (Dr/Ec) 20 mg PO BID Qty: 0 0RF aspirin 81 mg tablet,delayed release (DR/EC) 81 mg PO DAILY Qty: 1 0RF Rx Instructions: use for 21 days, then discontinue ferrous sulfate 325 mg (65 mg iron) tablet 325 mg PO BID Qty: 1 0RF Continued finasteride [Proscar] 5 mg tablet 5 mg PO DAILY cilostazol 50 mg tablet 50 mg PO BID clopidogrel 75 mg tablet 75 mg PO DAILY tizanidine 2 MG tablet 2 mg PO Q12H PRN PRN (Reason: muscle spasm lasting more than 5 minutes) 30 Days Qty: 60 0RF Patient Comments: 04/26 pt states taking 2 tabs (4mg) QHS gabapentin 100 mg capsule 100 mg PO DAILY gabapentin 100 mg capsule 200 mg PO QHS Patient Comments: 04/26 pt states tried to cut back, taking only 100mg in the am, 200mg at hs atorvastatin 80 mg tablet 80 mg PO QHS Qty: 90 3RF No Action acetaminophen [Tylenol Extra Strength] 500 mg tablet 500 mg PO Q4H PRN (Reason: Pain Or Fever) cyanocobalamin (vitamin B-12) 1,000 mcg tablet 1,000 mcg PO DAILY melatonin 5 mg capsule 5 mg PO QHS PRN (Reason: insomnia) Patient Comments: 04/26 pt states takes every night Referrals / Follow Up: Ankur Medina DO [Primary Care Provider] - Disposition Disposition (needs filled in before D/C Order can be placed): Inpatient Rehab Unit/Facility
--- NOTE | 2023-04-30 11:39 | DS.PCM_ITS ---
Providers Date of Admission: 04/25/23 Date of Discharge: 04/30/23 Primary Care Physician: Dr. Ankur Medina, DO Consultations 04/25/23 22:01 Consult: Onc/Wound/graduate advisor Routine Comment: Reason for Consult:: L achilles wound with VAC, needs changed 04/26/23 04/26/23 14:57 Consult: Gastroenterology Routine Consulting Provider: [facility] Reason for Consult: dysphagia EMERGENT Consult: No MD Notified: Yes Date Notified: 04/27/23 Time Notified: 07:44 Method of Notification: Text Reason For Visit: CVA Diagnosis Discharge Diagnosis (1) TIA (transient ischemic attack): Status: Acute Code(s): G45.9 - Transient cerebral ischemic attack, unspecified Plan 1. Transient ischemic attack-patient's MRI was negative for an acute stroke, I tried to get an idea of how long the patient's symptoms were present and he was unable to give me a clear answer. Again I have elected to place the patient on aspirin 81 mg in addition to his Plavix-he will take this combination for 21 days. Patient will remain on a statin at this time. #2 acute debility-patient has agreed to go to either an extended care facility or rehab facility for inpatient rehab services, I am awaiting confirmation if we have a bed tomorrow, if not here, patient's daughter will have to consider another facility-patient's daughter knows this. #3 coronary artery disease-patient will remain on his present medications #4 hyperlipidemia-patient is on a statin at this time #5 abnormal esophageal motility suspicious for achalasia-patient underwent dilation today, patient will remain on Protonix #6 chronic anemia-iron deficiency, will place on ferrous sulfate Total clinical time spent by myself addressing the patient's medical issues, reviewing all of his data, and collaborating with patient's care team: 35 minutes Medications at Discharge Home Medications finasteride 5 mg tablet (Proscar) 5 mg PO DAILY prostate 07/18/17 acetaminophen 500 mg tablet (Tylenol Extra Strength) 500 mg PO Q4H PRN Pain Or Fever 09/25/18 tizanidine 2 mg tablet 2 mg PO Q12H PRN PRN muscle spasm lasting more than 5 minutes 30 days #60 tabs 10/24/20 cilostazol 50 mg tablet 50 mg PO BID vasodilator 02/02/22 clopidogrel 75 mg tablet 75 mg PO DAILY anti platelet 02/02/22 atorvastatin 80 mg tablet 80 mg PO QHS cholesterol #90 tabs 04/30/22 cyanocobalamin (vitamin B-12) 1,000 mcg tablet 1,000 mcg PO DAILY general health 04/01/23 gabapentin 100 mg capsule 100 mg PO DAILY nerve pain 04/25/23 gabapentin 100 mg capsule 200 mg PO QHS pain 04/25/23 melatonin 5 mg capsule 5 mg PO QHS PRN insomnia 04/26/23 arginine 7 gram-glutam 7 gram-CaHMB 1.5 [id number]-min oral pwd pkt (Boaz (with collagen)) 1 packet PO BIDCM nutrition #0 ea 04/30/23 aspirin 81 mg tablet,delayed release 81 mg PO DAILY heart health #1 TAB 04/30/23 ferrous sulfate 325 mg (65 mg iron) tablet 325 mg PO BID supplement #1 TAB 04/30/23 menthol 0.44 %-zinc oxide 20.6 % topical ointment (Calmoseptine) 1 applic topical TID rash #0 grams 04/30/23 miconazole nitrate 2 % topical powder (Desenex) 1 applic topical BID redness #0 grams 04/30/23 pantoprazole 20 mg tablet,delayed release 20 mg PO BID gerd #0 tabs 04/30/23 sennosides 8.6 mg-docusate sodium 50 mg tablet (Stool Softener-Stimulant Laxative) 2 tab PO BID PRN PRN Constipation #0 tabs 04/30/23 Hospital Course Operations None Procedures 2-D Echocardiogram and EGD Summary of Care Provided Minutes Spent on Discharge: 32 Hospital Course: This 82-year-old white male was seen in the emergency room at [facility] with chief complaint of slurred speech, he told the emergency room physician that the symptoms have been going on for about 3 days, he also complained of a sense of feeling unsteady when ambulating with his walker. Patient's NIH score was 1, blood work was obtained which showed a normal white blood cell count, hemoglobin was slightly low at 11.3, urinalysis was unremarkable. CT of the head and CTA of the head and neck were unremarkable. Patient was admitted to [place] [id number], MRI was obtained which showed no evidence of acute stroke, echocardiogram was unremarkable. Patient was seen in consultation by gastroenterology who performed an esophageal dilatation. Patient was seen by PT and OT, it was recommended the patient go to a [facility] facility for short-term rehab services and the patient agreed. On 04/30/2023, patient was seen and examined: On examination he appeared in good health and spirits. Vital signs as documented. Skin warm and dry and without overt rashes. Neck without JVD, neck was supple, trachea midline, thyroid was normal. Lungs clear bilaterally, normal air movement was noted. Heart exam notable for regular rhythm, normal sounds and absence of murmurs, rubs or gallops. Abdomen unremarkable and without evidence of organomegaly, masses, or abdominal aortic enlargement. Bowel sounds are present, abdomen is not distended. Extremities nonedematous, no cyanosis was noted, no clubbing was noted. Neuro: Cranial nerves II through XII are grossly intact, no focal motor deficits were noted, sensation to light touch and pinprick intact, motor exam 5/5 throughout. Psych: Patient is alert and oriented x3, he does not appear anxious or depressed, he does not appear agitated. Patient was transferred to TCU for inpatient rehab services on 04/30/2023 in stable condition Weight / BMI Weight Weight: 84.2 kg Body Mass Index (BMI) 27.3 ABG / Lab / Microbiology Data 04/30/23 06:35 04/29/23 05:50 Laboratory: Laboratory Results - last 24 hr 04/30/23 06:35: Hgb 10.1 L, Hct 32.3 L, Iron 33 L, TIBC 288, Iron Saturation 11.5 L, Ferritin 46 Microbiology: Microbiology 04/27/23 15:01 Stool C. difficile GDH Antigen & Toxins - Final 04/27/23 15:01 Stool C. difficile DNA Amplification - Final Meaningful Use Info Meaningful Use Diagnoses (Choose all that apply): None applicable Discharge Plan Admission Admit Date/Time: 04/25/23 19:59 Primary Reason for Your Visit: TIA, debility Attending Provider: Ankur Chao Primary Care Provider: Ankur Medina Consulting Providers: Diana Weinberg; Manoj England Discharge Orders/Prescriptions Prescriptions: New menthol-zinc oxide [Calmoseptine] 0.44-20.6 % Ointment 1 applic topical TID Qty: 0 0RF Protocol: *Topical Application Instructions APPLICATION INSTRUCTIONS: to buttocks and pe rirectal area Boaz (with collagen) 7-7-1.5 gram Powder In Packet 1 packet PO BIDCM Qty: 0 0RF miconazole nitrate [Desenex] 2 % Powder 1 applic topical BID Qty: 0 0RF Protocol: *Topical Application Instructions APPLICATION INSTRUCTIONS: Apply to groin sennosides-docusate sodium [Stool Softener-Stimulant Laxat] 8.6-50 mg Tablet 2 tab PO BID PRN PRN (Reason: Constipation) Qty: 0 0RF pantoprazole 20 mg Tablet,Delayed Release (Dr/Ec) 20 mg PO BID Qty: 0 0RF aspirin 81 mg tablet,delayed release (DR/EC) 81 mg PO DAILY Qty: 1 0RF Rx Instructions: use for 21 days, then discontinue ferrous sulfate 325 mg (65 mg iron) tablet 325 mg PO BID Qty: 1 0RF Continued finasteride [Proscar] 5 mg tablet 5 mg PO DAILY cilostazol 50 mg tablet 50 mg PO BID clopidogrel 75 mg tablet 75 mg PO DAILY tizanidine 2 MG tablet 2 mg PO Q12H PRN PRN (Reason: muscle spasm lasting more than 5 minutes) 30 Days Qty: 60 0RF Patient Comments: 04/26 pt states taking 2 tabs (4mg) QHS gabapentin 100 mg capsule 100 mg PO DAILY gabapentin 100 mg capsule 200 mg PO QHS Patient Comments: 04/26 pt states tried to cut back, taking only 100mg in the am, 200mg at hs atorvastatin 80 mg tablet 80 mg PO QHS Qty: 90 3RF No Action acetaminophen [Tylenol Extra Strength] 500 mg tablet 500 mg PO Q4H PRN (Reason: Pain Or Fever) cyanocobalamin (vitamin B-12) 1,000 mcg tablet 1,000 mcg PO DAILY melatonin 5 mg capsule 5 mg PO QHS PRN (Reason: insomnia) Patient Comments: 04/26 pt states takes every night Referrals / Follow Up: Ankur Medina DO [Primary Care Provider] - Disposition Disposition (needs filled in before D/C Order can be placed): Inpatient Rehab Unit/Facility Charges/Coding Visit Charges Inpatient E&M: 13473 Disch Hosp >30min
--- NOTE | 2023-04-30 11:49 | CASEMGMT ---
TC albin Ward at [facility], she is aware that pt will dc to the inpatient rehab unit today.
--- NOTE | 2023-04-30 12:39 | PHA.DC_ITS ---
Pharmacy [facility] Reconciliation Pharmacy Service has performed discharge medication reconciliation for this patient. The patient's discharge medication list was reviewed for discrepancies and discrepancies were resolved. Medications at Discharge Home Medications finasteride 5 mg tablet (Proscar) 5 mg PO DAILY prostate 07/18/17 acetaminophen 500 mg tablet (Tylenol Extra Strength) 500 mg PO Q4H PRN Pain Or Fever 09/25/18 tizanidine 2 mg tablet 2 mg PO Q12H PRN PRN muscle spasm lasting more than 5 minutes 30 days #60 tabs 10/24/20 cilostazol 50 mg tablet 50 mg PO BID vasodilator 02/02/22 clopidogrel 75 mg tablet 75 mg PO DAILY anti platelet 02/02/22 atorvastatin 80 mg tablet 80 mg PO QHS cholesterol #90 tabs 04/30/22 cyanocobalamin (vitamin B-12) 1,000 mcg tablet 1,000 mcg PO DAILY general health 04/01/23 gabapentin 100 mg capsule 100 mg PO DAILY 04/25/23 gabapentin 100 mg capsule 200 mg PO QHS pain 04/25/23 melatonin 5 mg capsule 5 mg PO QHS PRN insomnia 04/26/23 arginine 7 gram-glutam 7 gram-CaHMB 1.5 [id number]-[id number]-[id number]-min oral pwd pkt (Boaz (with collagen)) 1 packet PO BIDCM #0 ea 04/30/23 aspirin 81 mg tablet,delayed release 81 mg PO DAILY #1 TAB 04/30/23 ferrous sulfate 325 mg (65 mg iron) tablet 325 mg PO BID #1 TAB 04/30/23 melatonin 3 mg tablet 3 mg PO QHS PRN PRN Insomnia #0 tabs 04/30/23 menthol 0.44 %-zinc oxide 20.6 % topical ointment (Calmoseptine) 1 applic topical TID #0 grams 04/30/23 miconazole nitrate 2 % topical powder (Desenex) 1 applic topical BID #0 grams 04/30/23 pantoprazole 20 mg tablet,delayed release 20 mg PO BID #0 tabs 04/30/23 sennosides 8.6 mg-docusate sodium 50 mg tablet (Stool Softener-Stimulant Laxative) 2 tab PO BID PRN PRN Constipation #0 tabs 04/30/23
--- NOTE | 2023-04-30 13:47 | NURSING ---
This RN is aware of [facility] [place] Vital Signs that were taken this morning.
--- NOTE | 2023-04-30 13:57 | NURSING ---
This RN gave report to Lori DRUMMOND in Rehab at this time.
[2023-04-30 15:31] VITALS: BP 109/64; PULSE 68; RESP 16; TEMP 37; O2SAT 96
== END 2023-04-30 15:26 | DRG 69 ==
LOC: ED 20:09 → ICU 04-26 07:19 → MS3 04-29 06:46 → ICU 04-29 16:57 → MS3 04-29 16:57
PROVIDERS: Internal Medicine; Internal Medicine Gastroenterology; Admitting Provider Family Medicine; Emergency Provider Emergency Medicine; PCP Family Medicine; Visit Provider Internal Medicine
PROC: 0DJ08ZZ Inspection of Upper Intestinal Tract, Via Natural or Artificial Opening Endoscopic (ICD-10-PCS; CPT 43235; principal; 2023-04-29 11:10)
DX: G45.9 Transient cerebral ischemic attack, unspecified (principal); K31.5 Obstruction of duodenum; G95.9 Disease of spinal cord, unspecified; R47.01 Aphasia; K22.0 Achalasia of cardia; M48.02 Spinal stenosis, cervical region; I48.0 Paroxysmal atrial fibrillation; I73.9 Peripheral vascular disease, unspecified; G25.81 Restless legs syndrome; I10 Essential (primary) hypertension; D50.9 Iron deficiency anemia, unspecified; E78.5 Hyperlipidemia, unspecified; I95.1 Orthostatic hypotension; I25.10 Atherosclerotic heart disease of native coronary artery without angina pectoris; M40.00 Postural kyphosis, site unspecified; K44.9 Diaphragmatic hernia without obstruction or gangrene; K31.89 Other diseases of stomach and duodenum; I25.2 Old myocardial infarction; G44.86 Cervicogenic headache; R47.1 Dysarthria and anarthria; G89.29 Other chronic pain; R47.81 Slurred speech; R13.10 Dysphagia, unspecified; F40.240 Claustrophobia; N40.0 Benign prostatic hyperplasia without lower urinary tract symptoms; R53.81 Other malaise; Z79.02 Long term (current) use of antithrombotics/antiplatelets; Z79.899 Other long term (current) drug therapy; Z87.891 Personal history of nicotine dependence; Z95.5 Presence of coronary angioplasty implant and graft
CPT/HCPCS: 36415; 70496; 70498; 70551; 71045; 74230; 80048; 80053; 80061; 81001; 82728; 83036; 83540; 83550; 83735; 84100; 84443; 84484; 85014; 85018; 85025; 85610; 85730; 87493; 88305; 88341; 88342; 92522; 92526; 92610; 92611; 93005; 93306; 94668; 97110; 97116; 97129; 97163; 97166; 97530; 97535; 97802; 99285; 99406; J7030; J7040; J7120; Q9967; A4216; C1769; J2405

== ENCOUNTER 2023-04-30 15:40 | Inpatient (IN) | payer MEDICARE, BC, SELFPAY ==
[2023-04-30 16:32] VITALS: BMI 27.7
[2023-04-30 16:35] VITALS: BP 100/48; PULSE 68; RESP 16; TEMP 37.2; O2SAT 94
[2023-04-30 17:59] LABS: Bacteria 0 SEEN /hpf (None Seen); Mucous, Urine 0 SEEN /hpf (<or=2+); Red Blood Cells-Urine 0 SEEN /hpf (0-5); White Blood Cells 0 SEEN /hpf (0-5)
[2023-04-30 18:06] LABS: Color, Urine Yellow (Yellow); Glucose, Dipstick Normal (Normal); Ketone-Dipstick Negative (Negative); Leukocyte Esterase-Dipstick 25 /ul (Negative); Nitrite-Dipstick Negative (Negative); Occult Blood-Urine 10 /ul (Negative); Protein-Dipstick 15 mg/dl (Negative); Urine Bilirubin Dipstick Negative (Negative); Urine Clarity Clear (Clear); Urine Urobilinogen 1 mg/dl (Normal)
[2023-04-30 18:13] LABS: Squamous Epithelial Cells - UA 0-5 SEEN /hpf (0-5)
[2023-04-30] MEDS: Ferrous Sulfate 325 MG Tablet PO (18:19)
[2023-04-30] MEDS: Juven (unflavored) Packet 1 PACKET PO (18:19)
--- NOTE | 2023-04-30 19:13 | HP.PCM_ITS ---
HPI - General General Date of Admission: 04/30/23 Date of Service: 04/30/23 Chief Complaint: Here for 3 hours daily rehabilitation. HPI Narrative 04/25/2023 SARA SAHA, is a 82 Male who presents to [facility] Emergency Department with numbness, tingling, slurred speech.. Slurred speech, headache, off balance for 3 days, right side of body does not work. Chest X-ray negative. CT head negative, CTA head/neck, no significant large vessel occlusion. 04/25/2023 Admit to Hospital for stroke. Aspirin, Plavix, Statin, MRI brain for stroke. PT/OT/ST. 04/25/2023 Echo EF 55%. Diastolic dysfunction indeterminate. 04/26/2023 MRI brain negative for stroke. Modified barium swallow showed regular textures, honey thick liquids. 04/27/2023 Consult GI for EGD. 04/28/2023 Occipital headache, feels weak. PT/OT for debility. 04/29/2023 Friend EGD suspicious for achalasia, acquired duodenal stenosis. 04/29/2023 Aspirin 81mg daily x 21 days, Plavix 75mg daily, then Plavix 75mg daily, along with Pletal 50mg bid. Iron studies for anemia evaluation. 04/30/2023 Admit to for 3 hours daily rehabilitation, strengthening, prior to discharge home alone. [facility] Medical History (Updated 04/30/23 @ 19:[address] 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 Orthostatic hypotension Osteoarthritis PAD (peripheral artery disease) Paroxysmal atrial fibrillation Pressure ulcer Renal cyst Restless leg syndrome 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 Urinary incontinence Urinary tract infection Urine retention Home Medications finasteride 5 mg tablet (Proscar) 5 mg PO DAILY prostate 07/18/17 [History Last Taken 04/30/23] acetaminophen 500 mg tablet (Tylenol Extra Strength) 500 mg PO Q4H PRN Pain Or Fever 09/25/18 [History Last Taken 04/25/23 10:34 500 mg] tizanidine 2 mg tablet 2 mg PO Q12H PRN PRN muscle spasm lasting more than 5 minutes 30 days #60 tabs 10/24/20 [Rx Last Taken 04/29/23] cilostazol 50 mg tablet 50 mg PO BID vasodilator 02/02/22 [History Last Taken 04/30/23] clopidogrel 75 mg tablet 75 mg PO DAILY anti platelet 02/02/22 [History Last Taken 04/30/23] atorvastatin 80 mg tablet 80 mg PO QHS cholesterol #90 tabs 04/30/22 [Rx Last Taken 04/30/23] cyanocobalamin (vitamin B-12) 1,000 mcg tablet 1,000 mcg PO DAILY general health 04/01/23 [History Last Taken 04/25/23 08:00 1,000 mcg] gabapentin 100 mg capsule 100 mg PO DAILY nerve pain 04/25/23 [History Last Taken 04/30/23] gabapentin 100 mg capsule 200 mg PO QHS pain 04/25/23 [History Last Taken 04/29/23] melatonin 5 mg capsule 5 mg PO QHS PRN insomnia 04/26/23 [History Last Taken 04/24/23 22:00 5 mg] arginine 7 gram-glutam 7 gram-CaHMB 1.5 [id number]-muxab-qf-min oral pwd pkt (Boaz (with collagen)) 1 packet PO BIDCM nutrition #0 ea 04/30/23 [Rx Last Taken 04/30/23] aspirin 81 mg tablet,delayed release 81 mg PO DAILY heart health #1 TAB 04/30/23 [Rx Last Taken 04/30/23] ferrous sulfate 325 mg (65 mg iron) tablet 325 mg PO BID supplement #1 TAB 04/30/23 [Rx Last Taken Unknown] menthol 0.44 %-zinc oxide 20.6 % topical ointment (Calmoseptine) 1 applic topical TID rash #0 grams 04/30/23 [Rx Last Taken 04/30/23] miconazole nitrate 2 % topical powder (Desenex) 1 applic topical BID redness #0 grams 04/30/23 [Rx Last Taken 04/30/23] pantoprazole 20 mg tablet,delayed release 20 mg PO BID gerd #0 tabs 04/30/23 [Rx Last Taken 04/30/23] sennosides 8.6 mg-docusate sodium 50 mg tablet (Stool Softener-Stimulant Laxative) 2 tab PO BID PRN PRN Constipation #0 tabs 04/30/23 [Rx Last Taken Unknown] Allergy/AdvReac Type Severity Reaction Status Date / Time No Known Allergies Allergy Verified 04/25/23 17:01 Family History Mother CHF (congestive heart failure) Heart disease Hypertension Father COPD (chronic obstructive pulmonary disease) Surgical History H/O laminectomy History of coronary artery stent placement (01/11/16) History of knee surgery History of pilonidal cyst History of vascular surgery S/P debridement S/P rotator cuff repair Social History (Updated 04/30/23 @ 19:[address] Antonio Gómez MD) household members: none current occupation: retired current occupational exposures/hazards: No history of recent travel: No Smoking Status: Former smoker how long ago did patient quit smokin alcohol intake: current alcohol intake frequency: holidays/special occasions only details: occasional,holiday substance use type: does not use caffeine: Yes Type: coffee Number of servings: 10 what type of physical activity do you participate in: bicycling frequency: 1-2 times per week duration: 15-30 minutes/day seatbelt use: always do you feel safe at home: Yes ROS Constitutional Constitutional: Reports weakness; Denies chills, fever(s) or weight gain ENT HEENT: Denies headache(s), nasal congestion or nasal discharge Cardiovascular Cardiovascular: Denies chest pain or palpitations Respiratory/Chest Respiratory/Chest: Denies cough, excessive phlegm production or shortness of breath with exertion Gastrointestinal Gastrointestinal: Denies abdominal pain, nausea or vomiting Genitourinary Genitourinary: Denies dysuria Musculoskeletal Musculoskeletal: Denies joint pain or joint swelling Integumentary Integumentary: Denies rash or wounds Neurologic Neurologic: Denies focal weakness, numbness or tingling Psychiatric Psychiatric: Denies anxiety, auditory hallucinations, depression, homicidal ideation or suicidal ideation Vital Signs Vital Signs Vital Signs: 04/30/23 16:35 Temperature 98.9 F Temperature Source Temporal Pulse Rate 68 Respiratory Rate 16 Blood Pressure 100/48 L Blood Pressure Mean 65 Blood Pressure Source Monitor Blood Pressure Position Semi-Fowlers Blood Pressure Location Right Arm Pulse Ox 94 Oxygen Delivery Method Room Air Weight Weight: 85.2 kg Body Mass Index (BMI) 27.7 Indicators for Scoring Admitted with or Primary Diagnosis of CVA/Stroke: No Hx of CVA/Stroke: No Modified [place] Score MRS Score at time of Evaluation: 3-Moderate disability NIHSS NIHSS 1a. Level of Consciousness: Alert; keenly responsive 1b. LOC Questions: Answers BOTH questions correctly. 1c. LOC Commands: Performs both tasks correctly. 2. Best Gaze: Normal 3. Visual: No visual loss 4. Facial Palsy: Normal symmetrical movements 5a. Left Arm: No drift; arm holds 90 (or 45) degrees for full 10 seconds 5b. Right Arm: No drift; arm holds 90 (or 45) degrees for full 10 seconds 6a. Left Leg: No drift; leg holds 30-degree position for full 5 seconds 6b. Right Leg: No drift; leg holds 30-degree position for full 5 seconds 7. Limb Ataxia: Absent 8. Sensory: Normal; no sensory loss 9. Best Language: No aphasia; normal 10. Dysarthria: Normal 11. Extinction and Inattention: No abnormality Total: 0 Physical Exam Const alert General Appearance: cooperative HEENT normocephalic Eyes PERRL and EOMs intact bilaterally Neck supple, no JVD and no carotid bruits Resp normal respiratory effort, normal air movement and clear to auscultation bilaterally Cardio regular rate and regular rhythm GI normal to inspection, nondistended, normoactive bowel sounds, non-tender and non-distended Extremity normal capillary refill Extremity Narrative: Left posterior lower extremity wound VAC. General Extremity: Negative for edema Skin no rashes or lesions noted General Skin Exam: no breakdown Psych affect normal Appearance: appropriate Results Lab / Micro Data Labs: Laboratory Results - last 24 hr 04/30/23 17:50: Urine Color Yellow, Urine Clarity Clear, Urine pH 5.0, Ur Specific [place] 1.020, Urine Protein 15 H, Urine Glucose (UA) Normal, Urine Ketones Negative, Urine Occult Blood 10 H, Urine Nitrite Negative, Urine Bilirubin Negative, Urine Urobilinogen 1 H, Ur Leukocyte Esterase 25 H, Urine RBC 0 SEEN, Urine WBC 0 SEEN, Ur Squamous Epith Cells 0-5 SEEN, Urine Bacteria 0 SEEN, Urine Mucus 0 SEEN Micro: Microbiology 04/30/23 17:05 Nasal Secretion SARS-CoV-2 Antigen (Rapid) - Final Assessment & Plan Assessment/Plan (1) Debility: (2) TIA (transient ischemic attack): (3) Right hemiparesis: (4) Dysarthria: (5) Hypertension: (6) Atrial fibrillation: (7) Hyperlipidemia: QUALIFIERS: Hyperlipidemia type: mixed hyperlipidemia Qualified Code(s): E78.2 - Mixed hyperlipidemia (8) BPH (benign prostatic hyperplasia): (9) Neuropathic pain: (10) Cervical spinal stenosis: (11) Muscle spasm: PLAN: Plan 82 year old male with below past medical history hospitalized for TIA, right hemiparesis, complicated by dysphagia/achalasia, admitted to for 3 hours daily rehabilitation, strengthening, prior to discharge home alone. * Debility - PT/OT/ST. * Pain - Tylenol 1000mg q6 prn pain (1-10). * Bowel - senna/colace 2 tablets bid prn, MOM 30ml daily prn. * DVT prophylaxis - Lovenox 40mg sc daily. * TIA - Plavix 75mg daily, Pletal 50mg bid, Aspirin 81mg daily x 21 days, then stop. * Hyperlipidemia - Atorvastatin 80mg qhs. * PAOD - Plavix 75mg daily, Pletal 50mg bid. * Vitamin B12 deficiency - B12 1000mcg daily. * Iron deficiency - Ferrous sulfate 325mg bidcm. * BPH - Finasteride 5mg daily. * Neuropathic pain - Gabapentin 100mg am, 200mg qhs. * Left lower extremity wound - wound VAC, Boaz 1 packet bidcm. * Insomnia - Melatonin 5mg qhs prn. * Skin irritation - Calmoseptine topical bid. * Tinea corporis - Miconazole topical bid. * GERD - Pantoprazole 20mg bid. * Muscle spasm - Tizanidine 2mg q12h prn.
[2023-04-30 19:52] VITALS: BP 104/41; PULSE 81; RESP 18; TEMP 37.4; O2SAT 95
[2023-04-30 20:07] LABS: Absolute Lymphocyte Count 0.52 X10^3/uL (0.83-4.51); Absolute Neutrophil Count 2.6 X10^3/uL (2.0-7.7); Basophil# 0.01 X10^3/uL; Basophil% 0.3 % (0-1); Eosinophil# 0.07 X10^3/uL; Eosinophils% 1.8 % (0-5); Hematocrit 30.6 % (40-54); Hemoglobin 9.7 g/dL (13.0-16.5); Lymphocyte # 0.52 X10^3/ul (0.83-4.51); Lymphocyte % 13.3 % (19-41); Mean Corp Hgb Conc 31.7 g/dL (32-36); Mean Corpuscular Hgb 29.9 pg (27.0-32.0); Mean Corpuscular Volume 94.4 fL (80-94); Mean Platelet Vol. 10.3 fl (6.2-12.0); Monocyte# 0.72 X10^3/uL; Monocyte% 18.4 % (0-10); NRBC Flagged by Analyzer 0 % (0-5); Neutrophil # 2.58 X10^3/uL (2.7-7.7); Neutrophil % 65.9 % (47-70); POSITIVE DIFFERENTIAL YES; Platelet Count 223 K/mm3 (150-450); RBC Distribution Width CV 14.7 % (11.6-14.6); RBC Distribution Width SD 50.9 fl (35.1-43.9); Red Blood Count 3.24 M/mm3 (4.6-6.2); White Blood Count 3.9 K/mm3 (4.4-11.0)
[2023-04-30 20:10] VITALS: BP 106/49; PULSE 80
[2023-04-30 20:13] LABS: Differential Indicated SCAN CRITERIA MET
[2023-04-30] MEDS: Atorvastatin Calcium 80 MG Tablet PO (20:13)
[2023-04-30] MEDS: Miconazole Nitrate 43 GM Bottle 1 APPLIC TOPICAL (20:13)
[2023-04-30] MEDS: Pantoprazole Sodium 20 MG Tablet PO (20:14)
[2023-04-30] MEDS: Gabapentin 100 MG Capsule 200 MG PO (20:14)
[2023-04-30] MEDS: Cilostazol 50 MG Tablet PO (20:14)
[2023-04-30] MEDS: Acetaminophen 500 MG Tablet 1000 MG PO (20:15)
[2023-04-30] MEDS: Menthol/Lanolin/Calamine/Znox 113 GM Tube 1 APPLIC TOPICAL (20:26)
[2023-04-30 20:30] LABS: ALB/GLOB Ratio 0.7 RATIO (0.9-2.4); AST(SGOT) 24 U/L (15-37); Alanine Aminotransfer ALT/SGPT 32 U/L (16-61); Albumin, Serum 2.5 g/dL (3.2-5.0); Alkaline Phosphatase 132 U/L (45-117); Anion Gap 4 (5-15); BUN 30 mg/dL (7-18); BUN/Creat Ratio 38.8 RATIO (10-20); Calcium,Total 8.1 mg/dL (8.5-10.1); Chloride 109 mmol/L (98-107); Creatinine, Serum 0.77 mg/dL (0.70-1.30); EST Glomerular Filtration Rate 102 mL/min (>60); Est Glom Filt Rate - Afr Amer 124 mL/min (>60); Estimated Creatinine Clearance 56.95 ml/min; Globulin 3.8 g/dL (2.2-4.2); Glucose 126 mg/dL (74-106); Potassium 4.3 mmol/L (3.5-5.1); Protein, Total 6.3 g/dL (6.4-8.2); Sodium Level 140 mmol/L (136-145)
[2023-04-30 20:41] LABS: Differential Comment SCANNED
[2023-05-01] MEDS: Menthol/Lanolin/Calamine/Znox 113 GM Tube 1 APPLIC TOPICAL ×2 (05:33→20:10)
[2023-05-01] MEDS: Enoxaparin 40 MG/0.4 ML Syringe SC (05:34)
[2023-05-01] MEDS: Miconazole Nitrate 43 GM Bottle 1 APPLIC TOPICAL ×2 (05:43→20:09)
[2023-05-01 07:15] VITALS: O2SAT 95
[2023-05-01 08:14] VITALS: BP 97/49; PULSE 78; RESP 17; TEMP 37.3; O2SAT 94
[2023-05-01] MEDS: Ferrous Sulfate 325 MG Tablet PO ×2 (10:04→16:28)
[2023-05-01] MEDS: Aspirin E.C. 81 MG Tablet PO (10:04)
[2023-05-01] MEDS: Cyanocobalamin 500 MCG Tablet 1000 MCG PO (10:04)
[2023-05-01] MEDS: Gabapentin 100 MG Capsule PO (10:04)
[2023-05-01] MEDS: Cilostazol 50 MG Tablet PO ×2 (10:04→20:11)
[2023-05-01] MEDS: Finasteride 5 MG Tablet PO (10:04)
[2023-05-01] MEDS: Pantoprazole Sodium 20 MG Tablet PO ×2 (10:04→20:09)
[2023-05-01] MEDS: Clopidogrel Bisulfate 75 MG Tablet PO (10:04)
[2023-05-01 12:56] VITALS: BP 88/36; PULSE 63; RESP 16; TEMP 37.4; O2SAT 98
[2023-05-01] MEDS: 0.9% Normal Saline (1000mL) 1,000 ML 75 ML IV (13:33)
--- NOTE | 2023-05-01 14:25 | WOUNDNOTE ---
wound photo: left Achilles area
[2023-05-01] MEDS: Juven (unflavored) Packet 1 PACKET PO (16:28)
[2023-05-01] MEDS: Ensure Plus High Protein 120 ML LIQUID PO ×2 (16:29→20:10)
--- NOTE | 2023-05-01 19:31 | PCM.RU.PYE ---
Admission Information Primary Diagnosis:: TIA Status Changes from Prescreening?: No changes Identified Actual Problem List:: Falls, Skin Intergrity, Mobility Impaired, Ineffective Communication, Know.Dfct/Disease Process and Alteration-Leisure Activ. Potential Problem List:: DVT, Bleeding, Infection, UTI, Aspiration, Falls, Skin Integrity and Depression Risk of Complications DVT: JAZMÍN Munoz Bleeding: Monitor Lab Values, Nursing to Teach Precautions for anti-coagulation therapy., Wound, if applicable, to be assessed every shift. and Stroke patients assessed for lethargy or change in status. Infection: Clinical Staff to Monitor for S/S of infection: and S/S of infection include fever, redness, warmth, etc. Urinary Tract Infection: Monitor for frequency, burning, discomfort, or incontinence. and Nursing will obtain urine sample for urinalysis and C&S when ordered. Aspiration: Clinical staff will monitor for coughing, drooling, congestion., Speech will evaluate swallowing and dsyphasia. and Nursing will monitor patient swallowing during meals. Falls: Patient will be evaluated for Fall Precautions and Patient will be placed on Fall Precautions as indicated per protocol. Skin Breakdown: Nursing will assess skin daily using assessment tool. and Nursing will place on Skin Breakdown Precautions as indicated. Pain: Clinical staff will assess patient's pain level per protocol., Medications will be given, if needed, and the pain level reassessed. and Other methods: Massage, distraction, decrease stimulus, etc. used PRN. Plan of Care Patient requires physician specializing in physical medicine and rehab oversight to provide close medical supervision of rehab issues including: Pain Management, Sleep Problems, Bowel and Bladder, Medical and co-morbidity Management, DVT prophylaxis, Rehabilitation Leadership and Coordination of treatment team Patient needs Physical Therapy: For a minimum of 1 hour and At least 5 out of 7 days Patient needs Physical Therapy to improve:: Mobility, Strengthening, Transfers, Stretching, ROM, Endurance, Stairs, Gait and Balance Patient needs Occupational Therapy: For a minimum of 1 hour and At least 5 out of 7 days Patient needs Occupational Therapy to improve ADL's incl.: Eating, Grooming, Bathing, Dressing, Toileting, Toilet transfers, Community Reintegration, Higher functioning activities, Household tasks, Adaptive Equipment and Other activities as determined Patient requires speech therapy: For a minimum of 1 hour and At least 5 out of 7 days Patient requires speech therapy for: Swallowing, Cognition and Language Skills Patient requires 24/7 Rehabilitation Nursing for: Pain Issues, Identifying and preventing risk factors, Monitoring and reporting current medical conditions, Assisting with ambulation, transfer, and all ADL's, Teaching patients about disease process and medications, Family teaching, Providing safe environment, Bowel and Bladder Issues, Skin integrity and Medication Management Patient needs Architect Marine/ Case Management for: Discharge Planning, Arranging Home Equipment or Services and Family Interventions Patient needs Dietary and Nutrition Services for: Adequate Nutrition, Nutritional Supplements and Nutritional Education Goals Patient will remain: free from falls and or injury at time of discharge. Patient will perform bed mobility at: MOD I level of assist. Patient will complete transfers from bed to chair at: Standby Assist. Patient will ambulate: - (20 feet Min A) Patient will complete upper body dressing at: MOD I level of assist. Patient will complete lower body dressing at: MOD I level of assist. Patient will complete toileting at: MOD I level of assist. Patient will complete grooming at: MOD I level of assist. Patient's skin will: free from infection. Patient will receive: adequate nutrition. Discharge Planning Pt Prognosis for Sig. Practical Improv. w/in Reasonable Time: Fair Estimated Length of stay (days): 21 Anticipated D/C Destination: Home with Home Health Was Preadmission Assessment Accurate?: Yes
[2023-05-01] MEDS: Atorvastatin Calcium 80 MG Tablet PO (20:10)
--- NOTE | 2023-05-01 20:11 | PN_ITS ---
Subjective Subjective Patient seen, examined. He is sitting up working with Riri from OT. Fever workup negative, but blood pressure low, patient does not like honey thick liquids, will not drink very much, start IV fluids. Objective Data Objective Data Vital Signs: Vital Signs Temp Pulse Resp BP Pulse Ox O2 Del Method 99.3 F H 63 16 88/36 L 98 Room Air 05/01/23 12:56 05/01/23 12:56 05/01/23 12:56 05/01/23 12:56 05/01/23 12:56 05/01/23 12:56 Oxygen Delivery Method Room Air Weight: 85.2 kg Body Mass Index (BMI) 27.7 Intake & Output: Intake and Output for Last 24 Hours 04/29/23 04/30/23 05/01/23 23:59 23:59 23:59 Intake Total 620 / 620 Output Total 475 / 475 Balance 145 / 145 Lab / Micro Data Attestation: I reviewed the patient's lab results. 04/30/23 19:55 04/30/23 19:55 Labs: Laboratory Results - last 24 hr 04/30/23 19:55: WBC 3.9 L, RBC 3.24 L, Hgb 9.7 L, Hct 30.6 L, MCV 94.4 H, MCH 29.9, MCHC 31.7 L, RDW Std Deviation 50.9 H, RDW Coeff of [place] 14.7 H, Plt Count 223, MPV 10.3, Immature Gran % (Auto) 0.300, Neut % (Auto) 65.9, Lymph % (Auto) 13.3 L, [place] % (Auto) 18.4 H, Eos % (Auto) 1.8, Baso % (Auto) 0.3, Absolute Neuts (auto) 2.6, Absolute Lymphs (auto) 0.52 L, Nucleated RBC % 0, Differential Comment SCANNED, Diff Path Review October, Sodium 140, Potassium 4.3, Chloride 109 H, Carbon Dioxide 27.0, Anion Gap 4 L, BUN 30 H, Creatinine 0.77, Estim Creat Clear Calc 56.95, Est GFR (MDRD) Af Amer 124, Est GFR (MDRD) Non-Af 102, BUN/Creatinine Ratio 38.8 H, Glucose 126 H, Calcium 8.1 L, Total Bilirubin 0.50, AST 24, ALT 32, Alkaline Phosphatase 132 H, Total Protein 6.3 L, Albumin 2.5 L, Globulin 3.8, Albumin/Globulin Ratio 0.7 L Micro: Microbiology 04/30/23 17:50 Urine Catheter - Catheter Urine Culture - Preliminary Culture exhibits no growth. 04/30/23 17:15 Mucosa - Nasopharyngeal Respiratory Panel (PCR) - Final 04/30/23 17:05 Nasal Secretion SARS-CoV-2 Antigen (Rapid) - Final Physical Exam Const alert General Appearance: cooperative HEENT normocephalic Eyes PERRL and EOMs intact bilaterally Neck supple, no JVD and no carotid bruits Resp normal respiratory effort, normal air movement and clear to auscultation bila terally Cardio regular rate and regular rhythm GI normal to inspection, nondistended, normoactive bowel sounds, non-tender and non-distended Extremity normal capillary refill Extremity Narrative: Left posterior lower extremity wound VAC. General Extremity: Negative for edema Skin no rashes or lesions noted Skin Narrative: Left achilles wound per wound nurse. General Skin Exam: no breakdown Psych affect normal Appearance: appropriate Assessment & Plan Assessment/Plan (1) Debility: (2) TIA (transient ischemic attack): (3) Right hemiparesis: (4) Dysarthria: (5) Hypertension: (6) Atrial fibrillation: (7) Hyperlipidemia: QUALIFIERS: Hyperlipidemia type: mixed hyperlipidemia Qualified Code(s): E78.2 - Mixed hyperlipidemia (8) BPH (benign prostatic hyperplasia): (9) Neuropathic pain: (10) Cervical spinal stenosis: (11) Muscle spasm: PLAN: Plan 82 year old male with below past medical history hospitalized for TIA, right hemiparesis, complicated by dysphagia/achalasia, admitted to for 3 hours daily rehabilitation, strengthening, prior to discharge home alone. * Debility - PT/OT/ST. * Pain - Tylenol 1000mg q6 prn pain (1-10). * Bowel - senna/colace 2 tablets bid prn, MOM 30ml daily prn. * DVT prophylaxis - Lovenox 40mg sc daily. * TIA - Plavix 75mg daily, Pletal 50mg bid, Aspirin 81mg daily x 21 days, then stop. * Hyperlipidemia - Atorvastatin 80mg qhs. * PAOD - Plavix 75mg daily, Pletal 50mg bid. * Vitamin B12 deficiency - B12 1000mcg daily. * Iron deficiency - Ferrous sulfate 325mg bidcm. * BPH - Finasteride 5mg daily. * Neuropathic pain - Gabapentin 100mg am, 200mg qhs. * Left lower extremity wound - wound VAC, Boaz 1 packet bidcm. * Insomnia - Melatonin 5mg qhs prn. * Skin irritation - Calmoseptine topical bid. * Tinea corporis - Miconazole topical bid. * GERD - Pantoprazole 20mg bid. * Muscle spasm - Tizanidine 2mg q12h prn. * Fever - urinalysis negative, covid negative, respiratory panel negative. * Hypotension - Normal saline 75ml IV. Capacity Capacity Assessment Tool Can the patient make a choice & communicate that choice?: Yes Can the patient understand benefits, risks and alternatives?: Yes Can the patient make a logical, rational choice?: Yes Is the choice the patient makes consistent w/ their values?: Yes Is there an impending, emergent risk to the patient?: No Does the patient have an Advance Directive?: Yes Is there a Surrogate Available?: Yes i.e. HCPOA: Yes i.e. close relative (spouse, child, parent, sibling)?: Yes
[2023-05-01] MEDS: MELATONIN 10 MG TABLET 5 MG PO (20:15)
[2023-05-01] MEDS: Acetaminophen 500 MG Tablet 1000 MG PO (20:16)
[2023-05-01] MEDS: Gabapentin 100 MG Capsule 200 MG PO (20:16)
[2023-05-01 22:00] VITALS: BP 119/53; PULSE 54; RESP 16; TEMP 36.7; O2SAT 96
[2023-05-01] MEDS: tiZANidine HCl 2 MG Tablet PO (23:36)
[2023-05-02] MEDS: Enoxaparin 40 MG/0.4 ML Syringe SC (05:19)
[2023-05-02] MEDS: Miconazole Nitrate 43 GM Bottle 1 APPLIC TOPICAL ×2 (05:20→22:33)
[2023-05-02] MEDS: Menthol/Lanolin/Calamine/Znox 113 GM Tube 1 APPLIC TOPICAL ×2 (05:21→22:33)
[2023-05-02] MEDS: 0.9% Normal Saline (1000mL) 1,000 ML 75 ML IV (05:23)
[2023-05-02 07:46] VITALS: BP 104/59; PULSE 54; RESP 16; TEMP 36.6; O2SAT 97
--- NOTE | 2023-05-02 08:16 | CASEMGMT ---
Social Work IDT met with patient and dtr via conference call for Team meeting. Discussed patient's progress in PT/OT/ST/SN. Educated to Medicare benefit. SW to update pt/dtr once approval of days are received. SW will continue to follow for DC planning. Will ReTeam weekly. CARL PeaceW
[2023-05-02] MEDS: Ferrous Sulfate 325 MG Tablet PO ×2 (08:38→17:37)
[2023-05-02] MEDS: Cilostazol 50 MG Tablet PO ×2 (08:38→22:32)
[2023-05-02] MEDS: Clopidogrel Bisulfate 75 MG Tablet PO (08:38)
[2023-05-02] MEDS: Aspirin E.C. 81 MG Tablet PO (08:39)
[2023-05-02] MEDS: Pantoprazole Sodium 20 MG Tablet PO ×2 (08:40→22:34)
[2023-05-02] MEDS: Cyanocobalamin 500 MCG Tablet 1000 MCG PO (08:40)
[2023-05-02] MEDS: Finasteride 5 MG Tablet PO (08:40)
[2023-05-02] MEDS: Ensure Plus High Protein 120 ML LIQUID PO ×2 (08:49→17:37)
[2023-05-02] MEDS: Gabapentin 100 MG Capsule PO (08:49)
[2023-05-02 09:12] LABS: Anion Gap 2 (5-15); BUN 23 mg/dL (7-18); Calcium,Total 8.4 mg/dL (8.5-10.1); Chloride 108 mmol/L (98-107); Creatinine, Serum 0.72 mg/dL (0.70-1.30); EST Glomerular Filtration Rate 111 mL/min (>60); Est Glom Filt Rate - Afr Amer 135 mL/min (>60); Estimated Creatinine Clearance 56.95 ml/min; Glucose 101 mg/dL (74-106); Potassium 3.7 mmol/L (3.5-5.1); Sodium Level 139 mmol/L (136-145)
[2023-05-02 09:21] LABS: Pathologist Review Reviewed
[2023-05-02 09:25] LABS: Absolute Lymphocyte Count 0.62 X10^3/uL (0.83-4.51); Absolute Neutrophil Count 3.4 X10^3/uL (2.0-7.7); Basophil# 0.01 X10^3/uL; Basophil% 0.2 % (0-1); Eosinophil# 0.07 X10^3/uL; Eosinophils% 1.5 % (0-5); Hematocrit 33.3 % (40-54); Hemoglobin 10.4 g/dL (13.0-16.5); Lymphocyte # 0.62 X10^3/ul (0.83-4.51); Lymphocyte % 13.5 % (19-41); Mean Corp Hgb Conc 31.2 g/dL (32-36); Mean Corpuscular Hgb 29.7 pg (27.0-32.0); Mean Corpuscular Volume 95.1 fL (80-94); Mean Platelet Vol. 10.7 fl (6.2-12.0); Monocyte# 0.48 X10^3/uL; Monocyte% 10.5 % (0-10); NRBC Flagged by Analyzer 0 % (0-5); Neutrophil # 3.41 X10^3/uL (2.7-7.7); Neutrophil % 74.3 % (47-70); Platelet Count 261 K/mm3 (150-450); RBC Distribution Width CV 14.9 % (11.6-14.6); RBC Distribution Width SD 51.6 fl (35.1-43.9); White Blood Count 4.6 K/mm3 (4.4-11.0)
[2023-05-02] MEDS: Citalopram 10 MG Tablet PO (11:30)
[2023-05-02 16:25] VITALS: O2SAT 95
--- NOTE | 2023-05-02 19:41 | PN_ITS ---
Subjective Subjective Patient seen, examined on team rounds. Patient doing well, admitted to depression over loss of spouse 2-3 years ago. Agreeable to treatment with antidepressant. Objective Data Objective Data Vital Signs: Vital Signs Temp Pulse Resp BP Pulse Ox O2 Del Method 97.9 F 54 L 16 104/59 L 95 Room Air 05/02/23 07:46 05/02/23 07:46 05/02/23 07:46 05/02/23 07:46 05/02/23 16:25 05/02/23 16:25 Oxygen Delivery Method Room Air Weight: 85.2 kg Body Mass Index (BMI) 27.7 Intake & Output: Intake and Output for Last 24 Hours 04/30/23 05/01/23 05/02/23 23:59 23:59 23:59 Intake Total 620 / 620 2918.75 / 2918.75 Output Total 925 / 925 850 / 850 Balance -305 / -305 2068.75 / 2068.75 Lab / Micro Data Attestation: I reviewed the patient's lab results. 05/02/23 08:48 05/02/23 08:48 Labs: Laboratory Results - last 24 hr 04/30/23 19:55: Diff Path Review Reviewed 05/02/23 08:48: WBC 4.6, RBC 3.50 L, Hgb 10.4 L, Hct 33.3 L, MCV 95.1 H, MCH 29.7, MCHC 31.2 L, RDW Std Deviation 51.6 H, RDW Coeff of [place] 14.9 H, Plt Count 261, MPV 10.7, Immature Gran % (Auto) 0.000, Neut % (Auto) 74.3 H, Lymph % (Auto) 13.5 L, [place] % (Auto) 10.5 H, Eos % (Auto) 1.5, Baso % (Auto) 0.2, Ab solute Neuts (auto) 3.4, Absolute Lymphs (auto) 0.62 L, Nucleated RBC % 0, So dium 139, Potassium 3.7, Chloride 108 H, Carbon Dioxide 29.0, Anion Gap 2 L, BUN 23 H, Creatinine 0.72, Estim Creat Clear Calc 56.95, Est GFR (MDRD) Af Amer 135, Est GFR (MDRD) Non-Af 111, BUN/Creatinine Ratio 32.0 H, Glucose 101, Calcium 8.4 L Micro: Microbiology 04/30/23 17:50 Urine Catheter - Catheter Urine Culture - Preliminary Culture exhibits no growth. 04/30/23 17:15 Mucosa - Nasopharyngeal Respiratory Panel (PCR) - Final 04/30/23 17:05 Nasal Secretion SARS-CoV-2 Antigen (Rapid) - Final Physical Exam Const alert General Appearance: cooperative HEENT normocephalic Eyes PERRL and EOMs intact bilaterally Neck supple, no JVD and no carotid bruits Resp normal respiratory effort, normal air movement and clear to auscultation bilaterally Cardio regular rate and regular rhythm GI normal to inspection, nondistended, normoactive bowel sounds, non-tender and non-distended Extremity normal capillary refill Extremity Narrative: Wound VAC left posterior distal lower extremity. General Extremity: Negative for edema Skin no rashes or lesions noted Skin Narrative: Left achilles wound per wound nurse. General Skin Exam: no breakdown Psych affect normal Appearance: appropriate Assessment & Plan Assessment/Plan (1) Debility: (2) TIA (transient ischemic attack): (3) Right hemiparesis: (4) Dysarthria: (5) Hypertension: (6) Atrial fibrillation: (7) Hyperlipidemia: QUALIFIERS: Hyperlipidemia type: mixed hyperlipidemia Qualified Code(s): E78.2 - Mixed hyperlipidemia (8) BPH (benign prostatic hyperplasia): (9) Neuropathic pain: (10) Cervical spinal stenosis: (11) Muscle spasm: PLAN: Plan 82 year old male with below past medical history hospitalized for TIA, right hemiparesis, complicated by dysphagia/achalasia, admitted to for 3 hours daily rehabilitation, strengthening, prior to discharge home alone. * Debility - PT/OT/ST. * Pain - Tylenol 1000mg q6 prn pain (1-10). * Bowel - senna/colace 2 tablets bid prn, MOM 30ml daily prn. * DVT prophylaxis - Lovenox 40mg sc daily. * TIA - Plavix 75mg daily, Pletal 50mg bid, Aspirin 81mg daily x 21 days, then stop. * Hyperlipidemia - Atorvastatin 80mg qhs. * PAOD - Plavix 75mg daily, Pletal 50mg bid. * Vitamin B12 deficiency - B12 1000mcg daily. * Iron deficiency - Ferrous sulfate 325mg bidcm. * BPH - Finasteride 5mg daily. * Neuropathic pain - Gabapentin 100mg am, 200mg qhs. * Left lower extremity wound - wound VAC, Boaz 1 packet bidcm. * Insomnia - Melatonin 5mg qhs prn. * Skin irritation - Calmoseptine topical bid. * Tinea corporis - Miconazole topical bid. * GERD - Pantoprazole 20mg bid. * Muscle spasm - Tizanidine 2mg q12h prn. * Fever - urinalysis negative, covid negative, respiratory panel negative. * Hypotension - Normal saline 75ml IV. * Depression - rx Citalopram 10mg daily. Capacity Capacity Assessment Tool Can the patient make a choice & communicate that choice?: Yes Can the patient understand benefits, risks and alternatives?: Yes Can the patient make a logical, rational choice?: Yes Is the choice the patient makes consistent w/ their values?: Yes Is there an impending, emergent risk to the patient?: No Does the patient have an Advance Directive?: Yes Is there a Surrogate Available?: Yes i.e. HCPOA: Yes i.e. close relative (spouse, child, parent, sibling)?: Yes
--- NOTE | 2023-05-02 19:44 | DS.PCM_ITS ---
Providers Date of Admission: 04/30/23 Primary Care Physician: Dr. Ankur Medina DO Consultations 04/30/23 16:42 Consult: Onc/Wound/lawn caretaker Routine Comment: Reason for Consult:: wound vac Lt Ankle Reason For Visit: DEBILITY Diagnosis Discharge Diagnosis (1) Debility: Status: Acute Code(s): R53.81 - Other malaise (2) TIA (transient ischemic attack): Status: Acute Code(s): G45.9 - Transient cerebral ischemic attack, unspecified (3) Right hemiparesis: Status: Acute Code(s): G81.91 - Hemiplegia, unspecified affecting right dominant side (4) Dysarthria: Status: Acute Code(s): R47.1 - Dysarthria and anarthria (5) Hypertension: Status: Chronic Code(s): I10 - Essential (primary) hypertension (6) Atrial fibrillation: Status: Acute Code(s): I48.91 - Unspecified atrial fibrillation (7) Hyperlipidemia: Status: Chronic Code(s): E78.5 - Hyperlipidemia, unspecified Qualifiers: Hyperlipidemia type: mixed hyperlipidemia Qualified Code(s): E78.2 - Mixed hyperlipidemia (8) BPH (benign prostatic hyperplasia): Status: Acute Code(s): N40.0 - Benign prostatic hyperplasia without lower urinary tract symptoms (9) Neuropathic pain: Status: Acute Code(s): M79.2 - Neuralgia and neuritis, unspecified (10) Cervical spinal stenosis: Status: Acute Code(s): M48.02 - Spinal stenosis, cervical region (11) Muscle spasm: Status: Acute Code(s): M62.838 - Other muscle spasm Plan 82 year old male with below past medical history hospitalized for TIA, right hemiparesis, complicated by dysphagia/achalasia, admitted to for 3 hours d aily rehabilitation, strengthening, prior to discharge home alone. * Debility - PT/OT/ST. * Pain - Tylenol 1000mg q6 prn pain (1-10). * Bowel - senna/colace 2 tablets bid prn, MOM 30ml daily prn. * DVT prophylaxis - Lovenox 40mg sc daily. * TIA - Plavix 75mg daily, Pletal 50mg bid, Aspirin 81mg daily x 21 days, then stop. * Hyperlipidemia - Atorvastatin 80mg qhs. * PAOD - Plavix 75mg daily, Pletal 50mg bid. * Vitamin B12 deficiency - B12 1000mcg daily. * Iron deficiency - Ferrous sulfate 325mg bidcm. * BPH - Finasteride 5mg daily. * Neuropathic pain - Gabapentin 100mg am, 200mg qhs. * Left lower extremity wound - wound VAC, [place] 1 packet bidcm. * Insomnia - Melatonin 5mg qhs prn. * Skin irritation - Calmoseptine topical bid. * Tinea corporis - Miconazole topical bid. * GERD - Pantoprazole 20mg bid. * Muscle spasm - Tizanidine 2mg q12h prn. * Fever - urinalysis negative, covid negative, respiratory panel negative. * Hypotension - Normal saline 75ml IV. * Depression - rx Citalopram 10mg daily. Medications at Discharge Home Medications finasteride 5 mg tablet (Proscar) 5 mg PO DAILY prostate 07/18/17 acetaminophen 500 mg tablet (Tylenol Extra Strength) 500 mg PO Q4H PRN Pain Or Fever 09/25/18 tizanidine 2 mg tablet 2 mg PO Q12H PRN PRN muscle spasm lasting more than 5 minutes 30 days #60 tabs 10/24/20 cilostazol 50 mg tablet 50 mg PO BID vasodilator 02/02/22 clopidogrel 75 mg tablet 75 mg PO DAILY anti platelet 02/02/22 atorvastatin 80 mg tablet 80 mg PO QHS cholesterol #90 tabs 04/30/22 cyanocobalamin (vitamin B-12) 1,000 mcg tablet 1,000 mcg PO DAILY general health 04/01/23 gabapentin 100 mg capsule 100 mg PO DAILY nerve pain 04/25/23 gabapentin 100 mg capsule 200 mg PO QHS pain 04/25/23 melatonin 5 mg capsule 5 mg PO QHS PRN insomnia 04/26/23 arginine 7 gram-glutam 7 gram-CaHMB 1.5 [id number] oral pwd pkt (Boaz (with collagen)) 1 packet PO BIDCM nutrition #0 ea 04/30/23 aspirin 81 mg tablet,delayed release 81 mg PO DAILY heart health #1 TAB 04/30/23 ferrous sulfate 325 mg (65 mg iron) tablet 325 mg PO BID supplement #1 TAB 04/30/23 menthol 0.44 %-zinc oxide 20.6 % topical ointment (Calmoseptine) 1 applic topical TID rash #0 grams 04/30/23 miconazole nitrate 2 % topical powder (Desenex) 1 applic topical BID redness #0 grams 04/30/23 pantoprazole 20 mg tablet,delayed release 20 mg PO BID gerd #0 tabs 04/30/23 sennosides 8.6 mg-docusate sodium 50 mg tablet (Stool Softener-Stimulant Laxative) 2 tab PO BID PRN PRN Constipation #0 tabs 04/30/23 Weight / BMI Weight Weight: 85.2 kg Body Mass Index (BMI) 27.7 ABG / Lab / Microbiology Data 05/02/23 08:48 05/02/23 08:48 Laboratory: Laboratory Results - last 24 hr 04/30/23 19:55: Diff Path Review Reviewed 05/02/23 08:48: WBC 4.6, RBC 3.50 L, Hgb 10.4 L, Hct 33.3 L, MCV 95.1 H, MCH 29.7, MCHC 31.2 L, RDW Std Deviation 51.6 H, RDW Coeff of [place] 14.9 H, Plt Count 261, MPV 10.7, Immature Gran % (Auto) 0.000, Neut % (Auto) 74.3 H, Lymph % (Auto) 13.5 L, [place] % (Auto) 10.5 H, Eos % (Auto) 1.5, Baso % (Auto) 0.2, A bsolute Neuts (auto) 3.4, Absolute Lymphs (auto) 0.62 L, Nucleated RBC % 0, S odium 139, Potassium 3.7, Chloride 108 H, Carbon Dioxide 29.0, Anion Gap 2 L, BUN 23 H, Creatinine 0.72, Estim Creat Clear Calc 56.95, Est GFR (MDRD) Af Amer 135, Est GFR (MDRD) Non-Af 111, BUN/Creatinine Ratio 32.0 H, Glucose 101, Calcium 8.4 L Microbiology: Microbiology 04/30/23 17:50 Urine Catheter - Catheter Urine Culture - Preliminary Culture exhibits no growth. 04/30/23 17:15 Mucosa - Nasopharyngeal Respiratory Panel (PCR) - Final 04/30/23 17:05 Nasal Secretion SARS-CoV-2 Antigen (Rapid) - Final Indicators for Scoring Admitted with or Primary Diagnosis of CVA/Stroke: Yes Hx of CVA/Stroke: No Modified Ghulam Score MRS Score at time of Evaluation: 4-Moderate/severe disability Discharge Plan Admission Admit Date/Time: 04/30/23 15:40 Attending Provider: Antonio Gómez Chi Primary Care Provider: Ankur Medina Discharge Orders/Prescriptions Prescriptions: No Action finasteride [Proscar] 5 mg tablet 5 mg PO DAILY acetaminophen [Tylenol Extra Strength] 500 mg tablet 500 mg PO Q4H PRN (Reason: Pain Or Fever) cilostazol 50 mg tablet 50 mg PO BID clopidogrel 75 mg tablet 75 mg PO DAILY cyanocobalamin (vitamin B-12) 1,000 mcg tablet 1,000 mcg PO DAILY tizanidine 2 MG tablet 2 mg PO Q12H PRN PRN (Reason: muscle spasm lasting more than 5 minutes) 30 Days Qty: 60 0RF Patient Comments: 04/26 pt states taking 2 tabs (4mg) QHS gabapentin 100 mg capsule 100 mg PO DAILY gabapentin 100 mg capsule 200 mg PO QHS Patient Comments: 04/26 pt states tried to cut back, taking only 100mg in the am, 200mg at hs melatonin 5 mg capsule 5 mg PO QHS PRN (Reason: insomnia) Patient Comments: 04/26 pt states takes every night menthol-zinc oxide [Calmoseptine] 0.44-20.6 % Ointment 1 applic topical TID Qty: 0 0RF Protocol: *Topical Application Instructions APPLICATION INSTRUCTIONS: to buttocks and perirectal area Boaz (with collagen) 7-7-1.5 gram Powder In Packet 1 packet PO BIDCM Qty: 0 0RF miconazole nitrate [Desenex] 2 % Powder 1 applic topical BID Qty: 0 0RF Protocol: *Topical Application Instructions APPLICATION INSTRUCTIONS: Apply to groin sennosides-docusate sodium [Stool Softener-Stimulant Laxat] 8.6-50 mg Tablet 2 tab PO BID PRN PRN (Reason: Constipation) Qty: 0 0RF pantoprazole 20 mg Tablet,Delayed Release (Dr/Ec) 20 mg PO BID Qty: 0 0RF aspirin 81 mg tablet,delayed release (DR/EC) 81 mg PO DAILY Qty: 1 0RF Rx Instructions: use for 21 days, then discontinue ferrous sulfate 325 mg (65 mg iron) tablet 325 mg PO BID Qty: 1 0RF atorvastatin 80 mg tablet 80 mg PO QHS Qty: 90 3RF Referrals / Follow Up: Ankur Medina DO [Primary Care Provider] -
[2023-05-02 20:30] VITALS: BP 118/64; PULSE 63; RESP 16; TEMP 36.5; O2SAT 98
[2023-05-02] MEDS: Gabapentin 100 MG Capsule 200 MG PO (22:34)
[2023-05-02] MEDS: Atorvastatin Calcium 80 MG Tablet PO (22:34)
[2023-05-02] MEDS: MELATONIN 10 MG TABLET 5 MG PO (22:34)
[2023-05-02] MEDS: tiZANidine HCl 2 MG Tablet PO (22:41)
[2023-05-03] MEDS: Acetaminophen 500 MG Tablet 1000 MG PO (02:12)
[2023-05-03 06:00] VITALS: BMI 28.0
[2023-05-03] MEDS: Menthol/Lanolin/Calamine/Znox 113 GM Tube 1 APPLIC TOPICAL ×2 (06:54→20:24)
[2023-05-03] MEDS: Miconazole Nitrate 43 GM Bottle 1 APPLIC TOPICAL ×2 (06:54→20:22)
[2023-05-03] MEDS: Enoxaparin 40 MG/0.4 ML Syringe SC (06:55)
[2023-05-03] MEDS: Finasteride 5 MG Tablet PO (09:04)
[2023-05-03] MEDS: Aspirin E.C. 81 MG Tablet PO (09:04)
[2023-05-03] MEDS: Cyanocobalamin 500 MCG Tablet 1000 MCG PO (09:04)
[2023-05-03] MEDS: Pantoprazole Sodium 20 MG Tablet PO ×2 (09:04→20:21)
[2023-05-03] MEDS: Cilostazol 50 MG Tablet PO ×2 (09:04→20:21)
[2023-05-03] MEDS: Ensure Plus High Protein 120 ML LIQUID PO ×2 (09:04→13:47)
[2023-05-03] MEDS: Ferrous Sulfate 325 MG Tablet PO ×2 (09:04→17:46)
[2023-05-03] MEDS: Clopidogrel Bisulfate 75 MG Tablet PO (09:04)
[2023-05-03] MEDS: Citalopram 10 MG Tablet PO (09:04)
[2023-05-03] MEDS: Gabapentin 100 MG Capsule PO (09:06)
[2023-05-03 10:00] VITALS: BP 118/64; PULSE 63; RESP 16; TEMP 36.5; O2SAT 98
[2023-05-03] MEDS: tiZANidine HCl 2 MG Tablet PO ×2 (11:09→20:21)
[2023-05-03 19:24] VITALS: BP 115/59; PULSE 67; RESP 18; TEMP 36.4; O2SAT 95
[2023-05-03] MEDS: Atorvastatin Calcium 80 MG Tablet PO (20:19)
[2023-05-03] MEDS: Gabapentin 100 MG Capsule 200 MG PO (20:21)
[2023-05-04] MEDS: Enoxaparin 40 MG/0.4 ML Syringe SC (05:44)
[2023-05-04] MEDS: Menthol/Lanolin/Calamine/Znox 113 GM Tube 1 APPLIC TOPICAL ×2 (05:45→20:38)
[2023-05-04] MEDS: Miconazole Nitrate 43 GM Bottle 1 APPLIC TOPICAL ×2 (05:45→20:38)
[2023-05-04 07:48] VITALS: BP 115/55; PULSE 62; RESP 15; TEMP 37.2; O2SAT 94
[2023-05-04] MEDS: Pantoprazole Sodium 20 MG Tablet PO ×2 (08:18→20:22)
[2023-05-04] MEDS: Citalopram 10 MG Tablet PO (08:18)
[2023-05-04] MEDS: Clopidogrel Bisulfate 75 MG Tablet PO (08:18)
[2023-05-04] MEDS: Aspirin E.C. 81 MG Tablet PO (08:18)
[2023-05-04] MEDS: Ferrous Sulfate 325 MG Tablet PO ×2 (08:18→17:11)
[2023-05-04] MEDS: Cyanocobalamin 500 MCG Tablet 1000 MCG PO (08:18)
[2023-05-04] MEDS: Ensure Plus High Protein 120 ML LIQUID PO ×2 (08:19→14:18)
[2023-05-04] MEDS: Finasteride 5 MG Tablet PO (08:19)
[2023-05-04] MEDS: Cilostazol 50 MG Tablet PO ×2 (08:19→20:21)
[2023-05-04] MEDS: Gabapentin 100 MG Capsule PO (08:33)
[2023-05-04] MEDS: Gabapentin 100 MG Capsule 200 MG PO (20:21)
[2023-05-04] MEDS: Atorvastatin Calcium 80 MG Tablet PO (20:21)
[2023-05-04] MEDS: tiZANidine HCl 2 MG Tablet PO (20:35)
[2023-05-04 21:30] VITALS: BP 118/58; PULSE 63; RESP 16; TEMP 37; O2SAT 98
[2023-05-05] MEDS: Enoxaparin 40 MG/0.4 ML Syringe SC (05:48)
[2023-05-05] MEDS: Menthol/Lanolin/Calamine/Znox 113 GM Tube 1 APPLIC TOPICAL ×2 (05:49→20:00)
[2023-05-05] MEDS: Miconazole Nitrate 43 GM Bottle 1 APPLIC TOPICAL ×2 (05:49→20:00)
[2023-05-05 08:03] VITALS: BP 120/63; PULSE 59; RESP 16; TEMP 36.7; O2SAT 95
[2023-05-05] MEDS: Pantoprazole Sodium 20 MG Tablet PO ×2 (08:19→21:12)
[2023-05-05] MEDS: Citalopram 10 MG Tablet PO (08:19)
[2023-05-05] MEDS: Finasteride 5 MG Tablet PO (08:19)
[2023-05-05] MEDS: Clopidogrel Bisulfate 75 MG Tablet PO (08:19)
[2023-05-05] MEDS: Aspirin E.C. 81 MG Tablet PO (08:19)
[2023-05-05] MEDS: Ferrous Sulfate 325 MG Tablet PO ×2 (08:19→17:44)
[2023-05-05] MEDS: Cyanocobalamin 500 MCG Tablet 1000 MCG PO (08:19)
[2023-05-05] MEDS: Cilostazol 50 MG Tablet PO ×2 (08:19→21:11)
[2023-05-05] MEDS: Gabapentin 100 MG Capsule PO (08:21)
[2023-05-05] MEDS: Ensure Plus High Protein 120 ML LIQUID PO ×2 (08:26→17:44)
[2023-05-05 20:00] VITALS: BP 139/60; PULSE 54; RESP 15; TEMP 37.1; O2SAT 94
[2023-05-05] MEDS: Atorvastatin Calcium 80 MG Tablet PO (21:11)
[2023-05-05] MEDS: Gabapentin 100 MG Capsule 200 MG PO (21:11)
[2023-05-05] MEDS: tiZANidine HCl 2 MG Tablet PO (21:12)
[2023-05-06] MEDS: Enoxaparin 40 MG/0.4 ML Syringe SC (05:29)
[2023-05-06] MEDS: Miconazole Nitrate 43 GM Bottle 1 APPLIC TOPICAL ×2 (05:29→20:44)
[2023-05-06] MEDS: Menthol/Lanolin/Calamine/Znox 113 GM Tube 1 APPLIC TOPICAL ×2 (05:29→20:44)
--- NOTE | 2023-05-06 07:52 | PN_ITS ---
Subjective Subjective Patient seen, examined. He is ready to eat breakfast, appetite decreased, but he is drinking fluids better. He said therapy was difficult 2 days ago, but he is ready to have another go at it today. Objective Data Objective Data Vital Signs: Vital Signs Temp Pulse Resp BP Pulse Ox O2 Del Method 98.7 F 54 L 15 139/60 H 94 Room Air 05/05/23 20:00 05/05/23 20:00 05/05/23 20:00 05/05/23 20:00 05/05/23 20:00 05/05/23 20:05 Oxygen Delivery Method Room Air Weight: 88.4 kg Body Mass Index (BMI) 28.8 Intake & Output: Intake and Output for Last 24 Hours 05/04/23 05/05/23 05/06/23 23:59 23:59 23:59 Intake Total 460 / 460 610 / 610 100 / 100 Output Total 1110 / 1110 750 / 750 350 / 350 Balance -650 / -650 -140 / -140 -250 / -250 Lab / Micro Data 05/02/23 08:48 05/02/23 08:48 Micro: Microbiology 04/30/23 17:50 Urine Catheter - Catheter Urine Culture - Final Culture exhibits no growth. 04/30/23 17:15 Mucosa - Nasopharyngeal Respiratory Panel (PCR) - Final 04/30/23 17:05 Nasal Secretion SARS-CoV-2 Antigen (Rapid) - Final Physical Exam Const alert General Appearance: cooperative HEENT normocephalic Eyes PERRL and EOMs intact bilaterally Neck supple, no JVD and no carotid bruits Resp normal respiratory effort, normal air movement and clear to auscultation bilaterally Cardio regular rate and regular rhythm GI normal to inspection, nondistended, normoactive bowel sounds, non-tender and non-distended Extremity normal capillary refill Extremity Narrative: Wound VAC left posterior distal lower extremity. General Extremity: Negative for edema Skin no rashes or lesions noted Skin Narrative: Left achilles wound per wound nurse. General Skin Exam: no breakdown Psych affect normal Appearance: appropriate Assessment & Plan Assessment/Plan (1) Debility: (2) TIA (transient ischemic attack): (3) Right hemiparesis: (4) Dysarthria: (5) Hypertension: (6) Atrial fibrillation: (7) Hyperlipidemia: QUALIFIERS: Hyperlipidemia type: mixed hyperlipidemia Qualified Code(s): E78.2 - Mixed hyperlipidemia (8) BPH (benign prostatic hyperplasia): (9) Neuropathic pain: (10) Cervical spinal stenosis: (11) Muscle spasm: PLAN: Plan 82 year old male with below past medical history hospitalized for TIA, right hemiparesis, complicated by dysphagia/achalasia, admitted to for 3 hours daily rehabilitation, strengthening, prior to discharge home alone. * Debility - PT/OT/ST. * Pain - Tylenol 1000mg q6 prn pain (1-10). * Bowel - senna/colace 2 tablets bid prn, MOM 30ml daily prn. * DVT prophylaxis - Lovenox 40mg sc daily. * TIA - Plavix 75mg daily, Pletal 50mg bid, Aspirin 81mg daily x 21 days, then stop. * Hyperlipidemia - Atorvastatin 80mg qhs. * PAOD - Plavix 75mg daily, Pletal 50mg bid. * Vitamin B12 deficiency - B12 1000mcg daily. * Iron deficiency - Ferrous sulfate 325mg bidcm. * BPH - Finasteride 5mg daily. * Neuropathic pain - Gabapentin 100mg am, 200mg qhs. * Left lower extremity wound - wound VAC, Boaz 1 packet bidcm. * Insomnia - Melatonin 5mg qhs prn. * Skin irritation - Calmoseptine topical bid. * Tinea corporis - Miconazole topical bid. * GERD - Pantoprazole 20mg bid. * Muscle spasm - Tizanidine 2mg q12h prn. * Depression - Citalopram 10mg daily. Capacity Capacity Assessment Tool Can the patient make a choice & communicate that choice?: Yes Can the patient understand benefits, risks and alternatives?: Yes Can the patient make a logical, rational choice?: Yes Is the choice the patient makes consistent w/ their values?: Yes Is there an impending, emergent risk to the patient?: No Does the patient have an Advance Directive?: Yes Is there a Surrogate Available?: Yes i.e. HCPOA: Yes i.e. close relative (spouse, child, parent, sibling)?: Yes
[2023-05-06 07:58] VITALS: BP 105/53; PULSE 57; RESP 16; TEMP 37.2; O2SAT 94
[2023-05-06] MEDS: Clopidogrel Bisulfate 75 MG Tablet PO (07:59)
[2023-05-06] MEDS: Pantoprazole Sodium 20 MG Tablet PO ×2 (07:59→20:45)
[2023-05-06] MEDS: Cyanocobalamin 500 MCG Tablet 1000 MCG PO (07:59)
[2023-05-06] MEDS: Ferrous Sulfate 325 MG Tablet PO ×2 (08:00→16:16)
[2023-05-06] MEDS: Aspirin E.C. 81 MG Tablet PO (08:00)
[2023-05-06] MEDS: Finasteride 5 MG Tablet PO (08:00)
[2023-05-06] MEDS: Cilostazol 50 MG Tablet PO ×2 (08:00→20:45)
[2023-05-06] MEDS: Ensure Plus High Protein 120 ML LIQUID PO (08:01)
[2023-05-06] MEDS: Citalopram 10 MG Tablet PO (08:01)
[2023-05-06] MEDS: Gabapentin 100 MG Capsule PO (08:06)
--- NOTE | 2023-05-06 14:08 | WOUNDNOTE ---
wound photo: left Achilles area
[2023-05-06 19:14] VITALS: BP 126/66; PULSE 62; RESP 18; TEMP 36.7; O2SAT 92
[2023-05-06] MEDS: tiZANidine HCl 2 MG Tablet PO (20:38)
[2023-05-06] MEDS: Gabapentin 100 MG Capsule 200 MG PO (20:43)
[2023-05-06] MEDS: Atorvastatin Calcium 80 MG Tablet PO (20:44)
[2023-05-06 22:00] VITALS: PULSE 62; RESP 15; O2SAT 94
[2023-05-07] MEDS: Enoxaparin 40 MG/0.4 ML Syringe SC (05:53)
[2023-05-07] MEDS: Menthol/Lanolin/Calamine/Znox 113 GM Tube 1 APPLIC TOPICAL ×2 (05:54→20:33)
[2023-05-07] MEDS: Miconazole Nitrate 43 GM Bottle 1 APPLIC TOPICAL ×2 (05:54→20:34)
[2023-05-07] MEDS: Cyanocobalamin 500 MCG Tablet 1000 MCG PO (07:54)
[2023-05-07] MEDS: Pantoprazole Sodium 20 MG Tablet PO ×2 (07:54→20:28)
[2023-05-07] MEDS: Clopidogrel Bisulfate 75 MG Tablet PO (07:54)
[2023-05-07] MEDS: Cilostazol 50 MG Tablet PO ×2 (07:54→20:27)
[2023-05-07] MEDS: Finasteride 5 MG Tablet PO (07:54)
[2023-05-07] MEDS: Aspirin E.C. 81 MG Tablet PO (07:54)
[2023-05-07] MEDS: Ferrous Sulfate 325 MG Tablet PO ×2 (07:55→17:09)
[2023-05-07] MEDS: Gabapentin 100 MG Capsule PO (07:55)
[2023-05-07] MEDS: Citalopram 10 MG Tablet PO (07:55)
--- NOTE | 2023-05-07 08:53 | PN_ITS ---
Subjective Subjective Patient seen, examined. He feels he did better in therapy yesterday. He told me he has had left posterior achilles wound for 2.5 years. His mood is still down, I let him know the citalopram will take 10 to 14 days to take effect. Objective Data Objective Data Vital Signs: Vital Signs Temp Pulse Resp BP Pulse Ox O2 Del Method 98.1 F 62 15 126/66 H 94 Room Air 05/06/23 19:14 05/06/23 22:00 05/06/23 22:00 05/06/23 19:14 05/06/23 22:00 05/06/23 22:00 Oxygen Delivery Method Room Air Weight: 88.4 kg Body Mass Index (BMI) 28.8 Intake & Output: Intake and Output for Last 24 Hours 05/05/23 05/06/23 05/07/23 23:59 23:59 23:59 Intake Total 610 / 610 820 / 820 120 / 120 Output Total 750 / 750 1000 / 1000 Balance -140 / -140 -180 / -180 120 / 120 Lab / Micro Data Attestation: I reviewed the patient's lab results. 05/02/23 08:48 05/02/23 08:48 Micro: Microbiology 04/30/23 17:50 Urine Catheter - Catheter Urine Culture - Final Culture exhibits no growth. 04/30/23 17:15 Mucosa - Nasopharyngeal Respiratory Panel (PCR) - Final 04/30/23 17:05 Nasal Secretion SARS-CoV-2 Antigen (Rapid) - Final Physical Exam Const alert General Appearance: cooperative HEENT normocephalic Eyes PERRL and EOMs intact bilaterally Neck supple, no JVD and no carotid bruits Resp normal respiratory effort, normal air movement and clear to auscultation bilaterally Cardio regular rate and regular rhythm GI normal to inspection, nondistended, normoactive bowel sounds, non-tender and non-distended Extremity normal capillary refill Extremity Narrative: Wound VAC left posterior distal lower extremity. General Extremity: Negative for edema Skin no rashes or lesions noted Skin Narrative: Left posterior distal leg wound VAC. General Skin Exam: no breakdown Psych affect normal Appearance: appropriate Assessment & Plan Assessment/Plan (1) Debility: (2) TIA (transient ischemic attack): (3) Right hemiparesis: (4) Dysarthria: (5) Hypertension: (6) Atrial fibrillation: (7) Hyperlipidemia: QUALIFIERS: Hyperlipidemia type: mixed hyperlipidemia Qualified Code(s): E78.2 - Mixed hyperlipidemia (8) BPH (benign prostatic hyperplasia): (9) Neuropathic pain: (10) Cervical spinal stenosis: (11) Muscle spasm: PLAN: Plan 82 year old male with below past medical history hospitalized for TIA, right hemiparesis, complicated by dysphagia/achalasia, admitted to for 3 hours daily rehabilitation, strengthening, prior to discharge home alone. * Debility - PT/OT/ST. * Pain - Tylenol 1000mg q6 prn pain (1-10). * Bowel - senna/colace 2 tablets bid prn, MOM 30ml daily prn. * DVT prophylaxis - Lovenox 40mg sc daily. * TIA - Plavix 75mg daily, Pletal 50mg bid, Aspirin 81mg daily x 21 days, then stop. * Hyperlipidemia - Atorvastatin 80mg qhs. * PAOD - Plavix 75mg daily, Pletal 50mg bid. * Vitamin B12 deficiency - B12 1000mcg daily. * Iron deficiency - Ferrous sulfate 325mg bidcm. * BPH - Finasteride 5mg daily. * Neuropathic pain - Gabapentin 100mg am, 200mg qhs. * Left lower extremity wound - wound VAC, Boaz 1 packet bidcm, wound nurse. * Insomnia - Melatonin 5mg qhs prn. * Skin irritation - Calmoseptine topical bid. * Tinea corporis - Miconazole topical bid. * GERD - Pantoprazole 20mg bid. * Muscle spasm - Tizanidine 2mg q12h prn. * Depression - Citalopram 10mg daily. Capacity Capacity Assessment Tool Can the patient make a choice & communicate that choice?: Yes Can the patient understand benefits, risks and alternatives?: Yes Can the patient make a logical, rational choice?: Yes Is the choice the patient makes consistent w/ their values?: No Is there an impending, emergent risk to the patient?: No Does the patient have an Advance Directive?: Yes Is there a Surrogate Available?: Yes i.e. HCPOA: Yes
[2023-05-07 09:36] VITALS: BP 104/59; PULSE 52; RESP 16; TEMP 36.4; O2SAT 95
[2023-05-07 19:51] VITALS: BP 100/50; PULSE 54; RESP 16; TEMP 36.3; O2SAT 95
[2023-05-07] MEDS: Atorvastatin Calcium 80 MG Tablet PO (20:27)
[2023-05-07] MEDS: Gabapentin 100 MG Capsule 200 MG PO (20:27)
[2023-05-07] MEDS: tiZANidine HCl 2 MG Tablet PO (20:29)
[2023-05-07] MEDS: Acetaminophen 500 MG Tablet 1000 MG PO (20:33)
[2023-05-07 22:00] VITALS: PULSE 64; RESP 14; O2SAT 93
[2023-05-08] MEDS: Enoxaparin 40 MG/0.4 ML Syringe SC (04:53)
[2023-05-08] MEDS: Miconazole Nitrate 43 GM Bottle 1 APPLIC TOPICAL ×2 (04:53→19:54)
[2023-05-08] MEDS: Menthol/Lanolin/Calamine/Znox 113 GM Tube 1 APPLIC TOPICAL ×2 (04:54→19:54)
--- NOTE | 2023-05-08 08:18 | PN_ITS ---
Subjective Subjective Patient seen, examined. He has good appetite, but does not like drinking thickened liquids. Objective Data Objective Data Vital Signs: Vital Signs Temp Pulse Resp BP Pulse Ox O2 Del Method 97.4 F L 64 14 100/50 L 93 Room Air 05/07/23 19:51 05/07/23 22:00 05/07/23 22:00 05/07/23 19:51 05/07/23 22:00 05/07/23 22:00 Oxygen Delivery Method Room Air Weight: 88.4 kg Body Mass Index (BMI) 28.8 Intake & Output: Intake and Output for Last 24 Hours 05/06/23 05/07/23 05/08/23 23:59 23:59 23:59 Intake Total 820 / 820 810 / 930 170 / 170 Output Total 1000 / 1000 350 / 350 220 / 220 Balance -180 / -180 460 / 580 -50 / -50 Lab / Micro Data 05/02/23 08:48 05/02/23 08:48 Micro: Microbiology 04/30/23 17:50 Urine Catheter - Catheter Urine Culture - Final Culture exhibits no growth. 04/30/23 17:15 Mucosa - Nasopharyngeal Respiratory Panel (PCR) - Final 04/30/23 17:05 Nasal Secretion SARS-CoV-2 Antigen (Rapid) - Final Physical Exam Const alert General Appearance: cooperative HEENT normocephalic Eyes PERRL and EOMs intact bilaterally Neck supple, no JVD and no carotid bruits Resp normal respiratory effort, normal air movement and clear to auscultation bilaterally Cardio regular rate and regular rhythm GI normal to inspection, nondistended, normoactive bowel sounds, non-tender and non-distended Extremity normal capillary refill Extremity Narrative: Wound VAC left posterior distal lower extremity. General Extremity: Negative for edema Skin no rashes or lesions noted Skin Narrative: Left posterior distal leg wound VAC. General Skin Exam: no breakdown Wound Narrative: Left posterior distal lower extremity wound VAC. Psych affect normal Appearance: appropriate Assessment & Plan Assessment/Plan (1) Debility: (2) TIA (transient ischemic attack): (3) Right hemiparesis: (4) Dysarthria: (5) Hypertension: (6) Atrial fibrillation: (7) Hyperlipidemia: QUALIFIERS: Hyperlipidemia type: mixed hyperlipidemia Qualified Code(s): E78.2 - Mixed hyperlipidemia (8) BPH (benign prostatic hyperplasia): (9) Neuropathic pain: (10) Cervical spinal stenosis: (11) Muscle spasm: PLAN: Plan 82 year old male with below past medical history hospitalized for TIA, right hemiparesis, complicated by dysphagia/achalasia, admitted to for 3 hours daily rehabilitation, strengthening, prior to discharge home alone. * Debility - PT/OT/ST. * Pain - Tylenol 1000mg q6 prn pain (1-10). * Bowel - senna/colace 2 tablets bid prn, MOM 30ml daily prn. * DVT prophylaxis - Lovenox 40mg sc daily. * TIA - Plavix 75mg daily, Pletal 50mg bid, Aspirin 81mg daily x 21 days, then stop. * Hyperlipidemia - Atorvastatin 80mg qhs. * PAOD - Plavix 75mg daily, Pletal 50mg bid. * Vitamin B12 deficiency - B12 1000mcg daily. * Iron deficiency - Ferrous sulfate 325mg bidcm. * BPH - Finasteride 5mg daily. * Neuropathic pain - Gabapentin 100mg am, 200mg qhs. * Left lower extremity wound - wound VAC, Boaz 1 packet bidcm, wound nurse. * Insomnia - Melatonin 5mg qhs prn. * Skin irritation - Calmoseptine topical bid. * Tinea corporis - Miconazole topical bid. * GERD - Pantoprazole 20mg bid. * Muscle spasm - Tizanidine 2mg q12h prn. * Depression - Citalopram 10mg daily. Capacity Capacity Assessment Tool Can the patient make a choice & communicate that choice?: Yes Can the patient understand benefits, risks and alternatives?: Yes Can the patient make a logical, rational choice?: Yes Is the choice the patient makes consistent w/ their values?: Yes Is there an impending, emergent risk to the patient?: No Does the patient have an Advance Directive?: Yes Is there a Surrogate Available?: Yes i.e. HCPOA: Yes i.e. close relative (spouse, child, parent, sibling)?: Yes
[2023-05-08] MEDS: Ferrous Sulfate 325 MG Tablet PO ×2 (08:52→17:18)
[2023-05-08] MEDS: Finasteride 5 MG Tablet PO (08:53)
[2023-05-08] MEDS: Cyanocobalamin 500 MCG Tablet 1000 MCG PO (08:53)
[2023-05-08] MEDS: Aspirin E.C. 81 MG Tablet PO (08:53)
[2023-05-08] MEDS: Cilostazol 50 MG Tablet PO ×2 (08:53→19:53)
[2023-05-08] MEDS: Citalopram 10 MG Tablet PO (08:53)
[2023-05-08] MEDS: Pantoprazole Sodium 20 MG Tablet PO ×2 (08:53→19:53)
[2023-05-08] MEDS: Clopidogrel Bisulfate 75 MG Tablet PO (08:53)
[2023-05-08] MEDS: Gabapentin 100 MG Capsule PO (08:58)
[2023-05-08 09:04] VITALS: BP 97/51; PULSE 55; RESP 16; TEMP 36.8; O2SAT 95
[2023-05-08] MEDS: Gabapentin 100 MG Capsule 200 MG PO (19:53)
[2023-05-08] MEDS: Atorvastatin Calcium 80 MG Tablet PO (19:53)
[2023-05-08 20:00] VITALS: BP 109/58; PULSE 60; RESP 18; TEMP 36.4; O2SAT 94
[2023-05-08] MEDS: tiZANidine HCl 2 MG Tablet PO (21:04)
[2023-05-09] MEDS: Enoxaparin 40 MG/0.4 ML Syringe SC (05:22)
[2023-05-09] MEDS: Miconazole Nitrate 43 GM Bottle 1 APPLIC TOPICAL ×2 (05:23→21:01)
[2023-05-09] MEDS: Menthol/Lanolin/Calamine/Znox 113 GM Tube 1 APPLIC TOPICAL ×2 (05:23→21:01)
[2023-05-09 08:22] VITALS: BP 104/48; PULSE 61; RESP 16; TEMP 36.9; O2SAT 96
--- NOTE | 2023-05-09 09:07 | CASEMGMT ---
Addendum entered by Bonita Mcclelland 05/10/23 13:50: TCU can accept. Pt updated. Original Note: Social Work IDT met with patient and dtr via conference call for Team meeting. Discussed patient's progress in PT/OT/ST/SN. Educated to Medicare approval of 15 days with DC 05/15. IDT recommending continued therapy at a SNF. SW educated to Medicare benefit in SNF and offered to provide SNF list. Pt denied and requesting referral to TCU. Dtr agreeable. SW agreed to place referral. SW requested dtr provide copies of advanced directives - dtr agreeable. SW referred to TCU. Bonita Mcclelland, CARL THORNTONW
[2023-05-09] MEDS: Cyanocobalamin 500 MCG Tablet 1000 MCG PO (09:36)
[2023-05-09] MEDS: Citalopram 10 MG Tablet PO (09:36)
[2023-05-09] MEDS: Ferrous Sulfate 325 MG Tablet PO ×2 (09:36→17:37)
[2023-05-09] MEDS: Finasteride 5 MG Tablet PO (09:36)
[2023-05-09] MEDS: Cilostazol 50 MG Tablet PO ×2 (09:36→21:00)
[2023-05-09] MEDS: Pantoprazole Sodium 20 MG Tablet PO ×2 (09:36→21:00)
[2023-05-09] MEDS: Clopidogrel Bisulfate 75 MG Tablet PO (09:36)
[2023-05-09] MEDS: Aspirin E.C. 81 MG Tablet PO (09:36)
[2023-05-09] MEDS: Gabapentin 100 MG Capsule PO (09:37)
[2023-05-09 19:40] VITALS: BP 111/58; PULSE 54; RESP 16; TEMP 36.8; O2SAT 97
[2023-05-09] MEDS: Gabapentin 100 MG Capsule 200 MG PO (21:00)
[2023-05-09] MEDS: Atorvastatin Calcium 80 MG Tablet PO (21:00)
[2023-05-09] MEDS: tiZANidine HCl 2 MG Tablet PO (21:00)
[2023-05-10] MEDS: Enoxaparin 40 MG/0.4 ML Syringe SC (05:22)
[2023-05-10] MEDS: Miconazole Nitrate 43 GM Bottle 1 APPLIC TOPICAL ×2 (05:23→22:12)
[2023-05-10] MEDS: Menthol/Lanolin/Calamine/Znox 113 GM Tube 1 APPLIC TOPICAL ×2 (05:23→22:12)
[2023-05-10 06:00] VITALS: BMI 27.6
[2023-05-10 07:38] VITALS: BP 98/54; PULSE 50; RESP 14; TEMP 36.8; O2SAT 93
[2023-05-10] MEDS: Citalopram 10 MG Tablet PO (07:42)
[2023-05-10] MEDS: Gabapentin 100 MG Capsule PO (07:42)
[2023-05-10] MEDS: Ferrous Sulfate 325 MG Tablet PO ×2 (07:42→17:15)
[2023-05-10] MEDS: Clopidogrel Bisulfate 75 MG Tablet PO (07:42)
[2023-05-10] MEDS: Pantoprazole Sodium 20 MG Tablet PO ×2 (07:42→20:36)
[2023-05-10] MEDS: Cyanocobalamin 500 MCG Tablet 1000 MCG PO (07:42)
[2023-05-10] MEDS: Finasteride 5 MG Tablet PO (07:43)
[2023-05-10] MEDS: Aspirin E.C. 81 MG Tablet PO (07:43)
[2023-05-10] MEDS: Cilostazol 50 MG Tablet PO ×2 (10:36→20:36)
--- NOTE | 2023-05-10 10:51 | ST.MBS ---
Modified Barium Swallow Patient Information Study Date: 05/10/23 Study Time: 10:00 Diagnosis: CVA/Dysphagia Referring Physician: Antonio Gómez Chi Penetration-Aspiration Scale Penetration-Aspiration Scale: OBJECTIVE ASSESSMENT OF SWALLOW FUNCTION (QUANTITATIVE ? PER TRIAL): PENETRATION / ASPIRATION SCALE ([place]ON[place]LL): 1 = does not enter airway 2 = enters airway/above vocal folds/ejected 3 = enters airway/above vocal folds/not ejected 4 = enters airway/contacts vocal folds/ejected 5 = enters airway/contacts vocal folds/not ejected 6 = enters airway/below vocal folds/ejected 7 = enters airway/below vocal folds/not ejected despite effort 8 = enters airway/below vocal folds/no effort Penetration-Aspiration Scale Score Thin Liquid via teaspoon: Result: 5= enters airways/contacts vocal folds/not ejected Thin Liquid via teaspoon Trial 2: Result: 1= does not enter airway Thin Liquid via small single sip: cup: Result: 3= enters airways/above vocal folds/not ejected Thin Liquid via small single sip: cup Effortful swallow: Result: 1= does not enter airway Thin Liquid via small single sip: cup Effortful swallow Trial 2: Result: 1= does not enter airway Pudding: Result: 1= does not enter airway Cookie: Result: 1= does not enter airway Thin Liquid via single sip: straw: Result: 8= enters airway/below vocal folds/no effort Thin Liquid via single sip: straw Trial 2: Result: 5= enters airways/contacts vocal folds/not ejected (unable to confirm if aspiration occurred d/t body habitus which limited visualization of the vocal folds) [place] Thick Liquid via small single sip: cup: Result: 8= enters airway/below vocal folds/no effort Thin Liquid via small single sip: cup Trial 2: Result: 8= enters airway/below vocal folds/no effort Thin Liquid via teaspoon Effortful swallow: Result: 1= does not enter airway [place] Thick Liquid via small single sip: cup: Result: 1= does not enter airway
--- NOTE | 2023-05-10 12:15 | SP.MBSS_ITS ---
Modified Barium Swallow Patient Information Study Date: 05/10/23 Study Time: 10:00 Direct Billable Minutes: 150 Total Minutes procedure & reportin Diagnosis: CVA I63.9, Pharyngeal Dysphagia R13.13 Referring Physician: Antonio Gómez Chi Reason for Referral: 04/25/2023 Saqib Cruz presented to [facility] Emergency Department with numbness, tingling, slurred speech. Slurred speech, headache, off balance for 3 days, right side of body does not work. Chest X-ray negative. CT head negative, CTA head/neck, no significant large vessel occlusion. Admitted to Hospital for stroke. Aspirin, Plavix, Statin, MRI brain for stroke. PT/OT/ST. Echo EF 55%. Diastolic dysfunction indeterminate. 04/26/2023 MRI brain negative for stroke. Modified barium swallow (MBSS) completed w/ recommendation for regular textures, honey thick liquids, small bites/sips, cue to cough and reswallow if wet vocal quality, slow rate, sitting upright during and for 30 minutes after intake, assist w/ feeding/tray set up, initiate Gill[place] Free Water Protocol w/ thorough oral hygiene after meals/meds and before water intake. 04/27/2023 Consult GI for EGD. 04/28/2023 Occipital headache, feels weak. PT/OT for debility. 04/29/2023 Dr. Monterroso EGD suspicious for achalasia, acquired duodenal stenosis. 04/29/2023 Aspirin 81mg daily x 21 days, Plavix 75mg daily, then Plavix 75mg daily, along with Pletal 50mg bid. Iron studies for anemia evaluation. 04/30/2023 Admit to for 3 hours daily rehabilitation, strengthening, prior to discharge home alone. Patient has been participating in oropharyngeal strengthening exercises to improve swallow function and reduce aspiration risk. Repeat MBSS recommended following 2 weeks of dysphagia services to assess appropriateness for diet advancement. Medical History: Anterolisthesis, Atherosclerotic heart disease of [place] coronary artery without angina pectoris, Balanitis, BPH (benign prostatic hyperplasia), Bradycardia, Catheter-associated urinary tract infection, Cervical radiculopathy, Debility, Depression, Dilated aortic root, Eczema, Essential hypertension, Fecal incont inence, Generalized weakness, History of basal cell cancer, History of ST elevation myocardial infarction (STEMI) (01/11/16), Hyperlipidemia, Left ventricular hypertrophy, Leg swelling, Microscopic hematuria, Myelopathy, Normochromic normocytic anemia, 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), Old myocardial infarction, Orthostatic hypotension, Osteoarthritis, PAD (peripheral artery disease), Paroxysmal atrial fibrillation, Pressure ulcer, Renal cyst, Restless leg syndrome, Stenosis of cervical spine with myelopathy, Tobacco dependence in remission, Urinary incontinence, Urinary tract infection, Urine retention Current Diet Ordered: Regular Textures/Moderately Thick (Honey) Liquids Dentition: Natural Teeth, Upper Dentures and Partials Mental Status: WNL Respiratory Status: Oxygenating on Room Air Penetration-Aspiration Scale Penetration-Aspiration Scale: OBJECTIVE ASSESSMENT OF SWALLOW FUNCTION (QUANTITATIVE ? PER TRIAL): PENETRATION / ASPIRATION SCALE (OCONNELL): 1 = does not enter airway 2 = enters airway/above vocal folds/ejected 3 = enters airway/above vocal folds/not ejected 4 = enters airway/contacts vocal folds/ejected 5 = enters airway/contacts vocal folds/not ejected 6 = enters airway/below vocal folds/ejected 7 = enters airway/below vocal folds/not ejected despite effort 8 = enters airway/below vocal folds/no effort Penetration-Aspiration Scale Score Thin Liquid via teaspoon: Result: 5= enters airways/contacts vocal folds/not ejected Thin Liquid via teaspoon Trial 2: Result: 1= does not enter airway Thin Liquid via small single sip: cup: Result: 3= enters airways/above vocal folds/not ejected Thin Liquid via small single sip: cup Effortful swallow: Result: 1= does not enter airway Thin Liquid via small single sip: cup Effortful swallow Trial 2: Result: 1= does not enter airway Pudding: Result: 1= does not enter airway Cookie: Result: 1= does not enter airway Thin Liquid via single sip: straw: Result: 8= enters airway/below vocal folds/no effort Thin Liquid via single sip: straw Trial 2: Result: 5= enters airways/contacts vocal folds/not ejected (unable to confirm if aspiration occurred d/t body habitus which limited visualization of the vocal folds) [place] Thick Liquid via small single sip: cup: Result: 8= enters airway/below vocal folds/no effort Thin Liquid via small single sip: cup Trial 2: Result: 8= enters airway/below vocal folds/no effort Thin Liquid via teaspoon Effortful swallow: Result: 1= does not enter airway Honey Thick Liquid via small single sip: cup: Result: 1= does not enter airway Oral Phase Labial Seal: Escape beyond interlabial space; no extension beyond nicole border Tongue Control During Bolus Hold: Cohesive bolus between tongue to palatal seal Bolus Preparation/Mastication: Timely and efficient chewing and mashing Bolus Transport/Lingual Motion: Brisk tongue motion Oral Residue: Trace residue lining oral structures Pharyngeal Phase Initiation of Pharyngeal Swallow: Bolus head in valleculae Soft Palate Elevation: No bolus between soft palate and pharyngeal wall Laryngeal Elevation: Partial superior movement thyroid cart/partial apprx aryt- epig petiole Anterior Hyoid Excursion: No anterior movement Epiglottic Movement: Complete inversion Laryngeal Vestibule Closure at Height of Swallow: Incomplete; narrow column of air/contrast in laryngeal vestibule Pharyngeal Stripping Wave: Present - complete Pharyngoesophageal Segment Opening: Parital distension and partial duration; parital obstruction of flow Tongue Base Retraction: Trace column of contrast between tongue base & post. pharyngeal wall Pharyngeal Residue: Trace residue within or on pharyngeal structures Esophageal Phase Esophageal Clearance: Esophageal retention w/ retrograde flow below pharyngoesophageal seg. Treatment Strategies Effects of treatment strategies attemped:: Effortful Swallow = effective Cued cough and re-swallow = somewhat effective, cleared some but not all of laryngotracheal aspirate Diagnosis/Impression Diagnosis: Moderate pharyngeal phase dysphagia Impression: The oral phase is marked by: -mildly reduced labial seal w/ anterior bolus leakage which did not extend beyond the nicole border -timely mastication and A-P bolus transportation -trace post-prandial oral residue The pharyngeal phase is marked by: -delayed pharyngeal swallow onset timing (although improved compared to prior MBS 04/26/23) w/ liquids reaching to the valleculae prior to swallow onset -mildly reduced tongue base strength w/ trace-mild tongue base residue accumulation remaining after the swallow -no anterior hyoid excursion and reduced laryngeal elevation resulting in incomplete laryngeal vestibule closure and contributing to penetration/aspiration during the swallow -airway protection was variable t/o study w/ inconsistent airway protection -all aspiration was SILENT w/ no overt response to susan aspiration of mildly thick liquids -use of an effortful swallow (cued to swallow hard and fast) was effective to improve airway closure and reduce penetration/aspiration -a cued cough and re-swallow was somewhat effective to partially eject penetrated/aspirated contrast The esophageal phase is marked by: -a CP bar was identified and resulted in decreased bolus clearance w/ honey thickened liquids trial only, all other trials cleared through the PES -esophageal screening for clearance revealed mild esophageal retention w/ retrograde flow below the PES Recommendations Diet: Regular Textures and Honey-thick Liquids Comment: Thin liquid trials recommended to commence under direct [employer] supervision only w/ small sip, hard effortful swallow and post prandial cough and re-swallow. Consider trials via tsp if unable to limit sips via cup to small volumes. Closely monitor pulmonary status for changes w/ initiation of thin liquid trials. Continue Gillis Free Water Protocol. Compensatory Strategies: Small Bites, Small Sips (cough and reswallow if wet vocal quality is present ), Slow Rate, Sitting upright and Remain sitting upright for 30 minutes after PO intake Supervision: Assist as needed (w/ tray set up and feeding d/t UE weakness, decreased shoulder ROM and limited hand dexterity) Recommend Repeat Modified Barium Swallow: Yes Comment: Repeat MBSS recommended in 2-4 weeks to assess progress made w/ continued dysphagia intervention. Need for Skilled Speech Therapy Services: Yes Comment: Skilled ST intervention is recommended for continued oropharyngeal strengthening exercises to facilitate improved swallow function/airway closure and to instruct w/ compensatory strategies to reduce aspiration risk. Education Completed: 1. Described result of evaluation., 2. Pt understands evaluation & agrees with goals and treatment plan. (Discussed findings and recommendations w/ patient at bedside following MBSS conclusion.) and 4. Family/caregivers understand evaluation & agree w/ goals & tx plan. (Telephone call placed to patient's daughterArti - updated re: MBSS findings and recommendations, education well received.) Status Active ST Patient: Active Contact Information [facility] Speech Therapy:: Jackie Ngo M.A., [facility] Speech Language Pathologist [facility] [address] [place] [address] [email or web address] [phone]
[2023-05-10] MEDS: Atorvastatin Calcium 80 MG Tablet PO (20:36)
[2023-05-10] MEDS: tiZANidine HCl 2 MG Tablet PO (20:36)
[2023-05-10] MEDS: Gabapentin 100 MG Capsule 200 MG PO (20:36)
[2023-05-10 22:00] VITALS: BP 114/60; PULSE 76; RESP 16; TEMP 36.8; O2SAT 97
[2023-05-11] MEDS: Miconazole Nitrate 43 GM Bottle 1 APPLIC TOPICAL ×2 (05:36→20:38)
[2023-05-11] MEDS: Menthol/Lanolin/Calamine/Znox 113 GM Tube 1 APPLIC TOPICAL ×2 (05:36→20:37)
[2023-05-11] MEDS: Enoxaparin 40 MG/0.4 ML Syringe SC (05:36)
[2023-05-11] MEDS: Aspirin E.C. 81 MG Tablet PO (08:34)
[2023-05-11] MEDS: Citalopram 10 MG Tablet PO (08:34)
[2023-05-11] MEDS: Finasteride 5 MG Tablet PO (08:34)
[2023-05-11] MEDS: Cyanocobalamin 500 MCG Tablet 1000 MCG PO (08:34)
[2023-05-11] MEDS: Pantoprazole Sodium 20 MG Tablet PO ×2 (08:34→20:38)
[2023-05-11] MEDS: Clopidogrel Bisulfate 75 MG Tablet PO (08:34)
[2023-05-11] MEDS: Cilostazol 50 MG Tablet PO ×2 (08:34→20:39)
[2023-05-11] MEDS: Ferrous Sulfate 325 MG Tablet PO ×2 (08:34→17:11)
[2023-05-11] MEDS: Gabapentin 100 MG Capsule PO (08:38)
[2023-05-11 09:00] VITALS: BP 100/50; PULSE 60; RESP 16; TEMP 37; O2SAT 95
[2023-05-11] MEDS: Acetaminophen 500 MG Tablet 1000 MG PO (12:10)
[2023-05-11 20:00] VITALS: BP 125/75; PULSE 80; RESP 18; TEMP 36.1; O2SAT 95
[2023-05-11 20:30] VITALS: PULSE 70; RESP 18; O2SAT 98
[2023-05-11] MEDS: tiZANidine HCl 2 MG Tablet PO (20:38)
[2023-05-11] MEDS: Gabapentin 100 MG Capsule 200 MG PO (20:39)
[2023-05-11] MEDS: Atorvastatin Calcium 80 MG Tablet PO (20:39)
[2023-05-11] MEDS: MELATONIN 10 MG TABLET 5 MG PO (20:39)
[2023-05-12] MEDS: Enoxaparin 40 MG/0.4 ML Syringe SC (05:04)
[2023-05-12] MEDS: Menthol/Lanolin/Calamine/Znox 113 GM Tube 1 APPLIC TOPICAL ×2 (05:04→20:45)
[2023-05-12] MEDS: Miconazole Nitrate 43 GM Bottle 1 APPLIC TOPICAL ×2 (05:05→20:45)
[2023-05-12 07:44] VITALS: BP 104/60; PULSE 60; RESP 18; TEMP 36.6; O2SAT 94
[2023-05-12] MEDS: Clopidogrel Bisulfate 75 MG Tablet PO (08:24)
[2023-05-12] MEDS: Pantoprazole Sodium 20 MG Tablet PO ×2 (08:24→20:39)
[2023-05-12] MEDS: Ferrous Sulfate 325 MG Tablet PO ×2 (08:24→17:42)
[2023-05-12] MEDS: Cilostazol 50 MG Tablet PO ×2 (08:24→20:40)
[2023-05-12] MEDS: Cyanocobalamin 500 MCG Tablet 1000 MCG PO (08:24)
[2023-05-12] MEDS: Aspirin E.C. 81 MG Tablet PO (08:26)
[2023-05-12] MEDS: Finasteride 5 MG Tablet PO (08:26)
[2023-05-12] MEDS: Citalopram 10 MG Tablet PO (08:26)
[2023-05-12] MEDS: Gabapentin 100 MG Capsule PO (08:28)
[2023-05-12] MEDS: Acetaminophen 500 MG Tablet 1000 MG PO ×2 (08:33→20:43)
[2023-05-12 20:20] VITALS: BP 110/63; PULSE 63; RESP 17; TEMP 36.6; O2SAT 97
[2023-05-12] MEDS: Atorvastatin Calcium 80 MG Tablet PO (20:39)
[2023-05-12] MEDS: Gabapentin 100 MG Capsule 200 MG PO (20:43)
[2023-05-12] MEDS: tiZANidine HCl 2 MG Tablet PO (20:44)
[2023-05-13] MEDS: Enoxaparin 40 MG/0.4 ML Syringe SC (06:09)
[2023-05-13] MEDS: Menthol/Lanolin/Calamine/Znox 113 GM Tube 1 APPLIC TOPICAL ×2 (06:10→21:58)
[2023-05-13] MEDS: Miconazole Nitrate 43 GM Bottle 1 APPLIC TOPICAL ×2 (06:10→21:59)
[2023-05-13 07:26] VITALS: BP 104/56; PULSE 50; RESP 16; TEMP 36.4; O2SAT 96
[2023-05-13] MEDS: Clopidogrel Bisulfate 75 MG Tablet PO (08:44)
[2023-05-13] MEDS: Cilostazol 50 MG Tablet PO ×2 (08:44→21:59)
[2023-05-13] MEDS: Cyanocobalamin 500 MCG Tablet 1000 MCG PO (08:44)
[2023-05-13] MEDS: Aspirin E.C. 81 MG Tablet PO (08:45)
[2023-05-13] MEDS: Finasteride 5 MG Tablet PO (08:45)
[2023-05-13] MEDS: Pantoprazole Sodium 20 MG Tablet PO ×2 (08:45→21:59)
[2023-05-13] MEDS: Ferrous Sulfate 325 MG Tablet PO ×2 (08:45→16:40)
[2023-05-13] MEDS: Citalopram 10 MG Tablet PO (08:45)
[2023-05-13] MEDS: Gabapentin 100 MG Capsule PO (08:58)
[2023-05-13] MEDS: Acetaminophen 500 MG Tablet 1000 MG PO ×2 (13:09→22:00)
[2023-05-13] MEDS: tiZANidine HCl 2 MG Tablet PO ×2 (13:09→22:01)
--- NOTE | 2023-05-13 15:49 | WOUNDNOTE ---
wound photo: left buttock
--- NOTE | 2023-05-13 15:50 | WOUNDNOTE ---
wound photo: left Achilles area
--- NOTE | 2023-05-13 19:44 | PN_ITS ---
Subjective Subjective Patient seen, examined. He is progressing slowly in therapy, planning discharge to TCU 05/15/2023, in 2 days. Objective Data Objective Data Vital Signs: Vital Signs Temp Pulse Resp BP Pulse Ox O2 Del Method 97.5 F L 50 L 16 104/56 L 96 Room Air 05/13/23 07:26 05/13/23 07:26 05/13/23 07:26 05/13/23 07:26 05/13/23 07:26 05/13/23 07:26 Oxygen Delivery Method Room Air Weight: 84.6 kg Body Mass Index (BMI) 27.6 Intake & Output: Intake and Output for Last 24 Hours 05/11/23 05/12/23 05/13/23 23:59 23:59 23:59 Intake Total 1810 / 1810 1600 / 1600 1860 / 1860 Output Total 1550 / 1550 1850 / 1850 500 / 500 Balance 260 / 260 -250 / -250 1360 / 1360 Lab / Micro Data Attestation: I reviewed the patient's lab results. 05/02/23 08:48 05/02/23 08:48 Micro: Microbiology 04/30/23 17:50 Urine Catheter - Catheter Urine Culture - Final Culture exhibits no growth. 04/30/23 17:15 Mucosa - Nasopharyngeal Respiratory Panel (PCR) - Final 04/30/23 17:05 Nasal Secretion SARS-CoV-2 Antigen (Rapid) - Final Physical Exam Const alert General Appearance: cooperative HEENT normocephalic Eyes PERRL and EOMs intact bilaterally Neck supple, no JVD and no carotid bruits Resp normal respiratory effort, normal air movement and clear to auscultation bilaterally Cardio regular rate and regular rhythm GI normal to inspection, nondistended, normoactive bowel sounds, non-tender and non-distended Extremity normal capillary refill Extremity Narrative: Wound VAC left posterior distal lower extremity. General Extremity: Negative for edema Skin no rashes or lesions noted Skin Narrative: Left posterior lower extremity wound VAC. General Skin Exam: no breakdown Wound Narrative: Left posterior distal lower extremity wound VAC. Psych affect normal Appearance: appropriate Assessment & Plan Assessment/Plan (1) Debility: (2) TIA (transient ischemic attack): (3) Right hemiparesis: (4) Dysarthria: (5) Hypertension: (6) Atrial fibrillation: (7) Hyperlipidemia: QUALIFIERS: Hyperlipidemia type: mixed hyperlipidemia Qualified Code(s): E78.2 - Mixed hyperlipidemia (8) BPH (benign prostatic hyperplasia): (9) Neuropathic pain: (10) Cervical spinal stenosis: (11) Muscle spasm: PLAN: Plan 82 year old male with below past medical history hospitalized for TIA, right hemiparesis, complicated by dysphagia/achalasia, admitted to for 3 hours daily rehabilitation, strengthening, prior to discharge home alone. * Debility - PT/OT/ST. * Pain - Tylenol 1000mg q6 prn pain (1-10). * Bowel - senna/colace 2 tablets bid prn, MOM 30ml daily prn. * DVT prophylaxis - Lovenox 40mg sc daily. * TIA - Plavix 75mg daily, Pletal 50mg bid, Aspirin 81mg daily x 21 days, then stop. * Hyperlipidemia - Atorvastatin 80mg qhs. * PAOD - Plavix 75mg daily, Pletal 50mg bid. * Vitamin B12 deficiency - B12 1000mcg daily. * Iron deficiency - Ferrous sulfate 325mg bidcm. * BPH - Finasteride 5mg daily. * Neuropathic pain - Gabapentin 100mg am, 200mg qhs. * Left lower extremity wound - wound VAC, Boaz 1 packet bidcm, wound nurse. * Insomnia - Melatonin 5mg qhs prn. * Skin irritation - Calmoseptine topical bid. * Tinea corporis - Miconazole topical bid. * GERD - Pantoprazole 20mg bid. * Muscle spasm - Tizanidine 2mg q12h prn. * Depression - Citalopram 10mg daily. Capacity Capacity Assessment Tool Can the patient make a choice & communicate that choice?: Yes Can the patient understand benefits, risks and alternatives?: Yes Can the patient make a logical, rational choice?: Yes Is the choice the patient makes consistent w/ their values?: Yes Is there an impending, emergent risk to the patient?: No Does the patient have an Advance Directive?: Yes Is there a Surrogate Available?: Yes i.e. HCPOA: Yes i.e. close relative (spouse, child, parent, sibling)?: Yes
[2023-05-13 21:48] VITALS: BP 126/71; PULSE 57; RESP 14; TEMP 36.6; O2SAT 96
[2023-05-13] MEDS: Gabapentin 100 MG Capsule 200 MG PO (21:59)
[2023-05-13] MEDS: Atorvastatin Calcium 80 MG Tablet PO (21:59)
[2023-05-14] MEDS: Enoxaparin 40 MG/0.4 ML Syringe SC (05:27)
[2023-05-14] MEDS: Menthol/Lanolin/Calamine/Znox 113 GM Tube 1 APPLIC TOPICAL ×2 (05:27→21:14)
[2023-05-14] MEDS: Miconazole Nitrate 43 GM Bottle 1 APPLIC TOPICAL ×2 (05:28→21:14)
[2023-05-14 07:43] VITALS: BP 122/60; PULSE 52; RESP 16; TEMP 36.7; O2SAT 94
[2023-05-14] MEDS: Clopidogrel Bisulfate 75 MG Tablet PO (08:16)
[2023-05-14] MEDS: Pantoprazole Sodium 20 MG Tablet PO ×2 (08:16→21:12)
[2023-05-14] MEDS: Cyanocobalamin 500 MCG Tablet 1000 MCG PO (08:16)
[2023-05-14] MEDS: Finasteride 5 MG Tablet PO (08:16)
[2023-05-14] MEDS: Cilostazol 50 MG Tablet PO ×2 (08:16→21:12)
[2023-05-14] MEDS: Citalopram 10 MG Tablet PO (08:16)
[2023-05-14] MEDS: Ferrous Sulfate 325 MG Tablet PO ×2 (08:16→16:36)
[2023-05-14] MEDS: Aspirin E.C. 81 MG Tablet PO (08:17)
[2023-05-14] MEDS: Gabapentin 100 MG Capsule PO (08:19)
[2023-05-14] MEDS: Acetaminophen 500 MG Tablet 1000 MG PO ×2 (08:21→21:13)
--- NOTE | 2023-05-14 09:05 | DS.PCM_ITS ---
Providers Date of Admission: 04/30/23 Primary Care Physician: Dr. Ankur Medina DO Consultations 04/30/23 16:42 Consult: Onc/Wound/police detention attendant Routine Comment: Reason for Consult:: wound vac Lt Ankle Reason For Visit: DEBILITY Diagnosis Discharge Diagnosis (1) Debility: Status: Acute Code(s): R53.81 - Other malaise (2) TIA (transient ischemic attack): Status: Inactive Code(s): G45.9 - Transient cerebral ischemic attack, unspecified (3) Right hemiparesis: Status: Acute Code(s): G81.91 - Hemiplegia, unspecified affecting right dominant side (4) Dysarthria: Status: Acute Code(s): R47.1 - Dysarthria and anarthria (5) Hypertension: Status: Chronic Code(s): I10 - Essential (primary) hypertension (6) Atrial fibrillation: Status: Acute Code(s): I48.91 - Unspecified atrial fibrillation (7) Hyperlipidemia: Status: Chronic Code(s): E78.5 - Hyperlipidemia, unspecified Qualifiers: Hyperlipidemia type: mixed hyperlipidemia Qualified Code(s): E78.2 - Mixed hyperlipidemia (8) BPH (benign prostatic hyperplasia): Status: Acute Code(s): N40.0 - Benign prostatic hyperplasia without lower urinary tract symptoms (9) Neuropathic pain: Status: Acute Code(s): M79.2 - Neuralgia and neuritis, unspecified (10) Cervical spinal stenosis: Status: Acute Code(s): M48.02 - Spinal stenosis, cervical region (11) Muscle spasm: Status: Acute Code(s): M62.838 - Other muscle spasm Plan 82 year old male with below past medical history hospitalized for TIA, right hemiparesis, complicated by dysphagia/achalasia, admitted to for 3 hours daily rehabilitation, strengthening, prior to discharge home alone. * Debility - PT/OT/ST. * Pain - Tylenol 1000mg q6 prn pain (1-10). * Bowel - senna/colace 2 tablets bid prn, MOM 30ml daily prn. * DVT prophylaxis - Lovenox 40mg sc daily. * TIA - Plavix 75mg daily, Pletal 50mg bid, Aspirin 81mg daily x 21 days, then stop. * Hyperlipidemia - Atorvastatin 80mg qhs. * PAOD - Plavix 75mg daily, Pletal 50mg bid. * Vitamin B12 deficiency - B12 1000mcg daily. * Iron deficiency - Ferrous sulfate 325mg bidcm. * BPH - Finasteride 5mg daily. * Neuropathic pain - Gabapentin 100mg am, 200mg qhs. * Left lower extremity wound - wound VAC, Boaz 1 packet bidcm, wound nurse. * Insomnia - Melatonin 5mg qhs prn. * Skin irritation - Calmoseptine topical bid. * Tinea corporis - Miconazole topical bid. * GERD - Pantoprazole 20mg bid. * Muscle spasm - Tizanidine 2mg q12h prn. * Depression - Citalopram 10mg daily. Medications at Discharge Home Medications finasteride 5 mg tablet (Proscar) 5 mg PO DAILY prostate 07/18/17 acetaminophen 500 mg tablet (Tylenol Extra Strength) 500 mg PO Q4H PRN Pain Or Fever 09/25/18 cilostazol 50 mg tablet 50 mg PO BID vasodilator 02/02/22 clopidogrel 75 mg tablet 75 mg PO DAILY anti platelet 02/02/22 atorvastatin 80 mg tablet 80 mg PO QHS cholesterol #90 tabs 04/30/22 cyanocobalamin (vitamin B-12) 1,000 mcg tablet 1,000 mcg PO DAILY general health 04/01/23 gabapentin 100 mg capsule 100 mg PO DAILY nerve pain 04/25/23 gabapentin 100 mg capsule 200 mg PO QHS pain 04/25/23 melatonin 5 mg capsule 5 mg PO QHS PRN insomnia 04/26/23 arginine 7 gram-glutam 7 gram-CaHMB 1.5 [id number] oral pwd pkt (Boaz (with collagen)) 1 packet PO BIDCM nutrition #0 ea 04/30/23 ferrous sulfate 325 mg (65 mg iron) tablet 325 mg PO BID supplement #1 TAB 04/30/23 menthol 0.44 %-zinc oxide 20.6 % topical ointment (Calmoseptine) 1 applic topical TID rash #0 grams 04/30/23 miconazole nitrate 2 % topical powder (Desenex) 1 applic topical BID redness #0 grams 04/30/23 pantoprazole 20 mg tablet,delayed release 20 mg PO BID gerd #0 tabs 04/30/23 sennosides 8.6 mg-docusate sodium 50 mg tablet (Stool Softener-Stimulant Laxative) 2 tab PO BID PRN PRN Constipation #0 tabs 04/30/23 tizanidine 2 mg tablet 2 mg PO .COMPLEX PRN muscle spasm lasting more than 5 minutes 05/03/23 acetaminophen 500 mg tablet 1,000 mg (2 x 500 mg) PO Q6H PRN PRN Pain Score 1-10 #0 tabs 05/14/23 citalopram 10 mg tablet 10 mg PO DAILY #0 tabs 05/14/23 enoxaparin 40 mg/0.4 mL subcutaneous syringe 40 mg (0.4 mL) subcut DAILY@0600 #0 mL 05/14/23 tizanidine 2 mg tablet 2 - 4 mg (1 - 2 x 2 mg) PO QHS PRN PRN muscle spasm lasting>5 min #0 tabs 05/14/23 Hospital Course Operations None Procedures None Summary of Care Provided Minutes Spent on Discharge: 35 Hospital Course: 82 year old male with below past medical history hospitalized for TIA, right hemiparesis, complicated by dysphagia/achalasia, admitted to for 3 hours daily rehabilitation, strengthening, prior to discharge home alone. Discharge to TCU 05/15/2023, skilled. Physical Exam Const alert General Appearance: cooperative HEENT normocephalic Eyes PERRL and EOMs intact bilaterally Neck supple, no JVD and no carotid bruits Resp normal respiratory effort, normal air movement and clear to auscultation bilaterally Cardio regular rate and regular rhythm GI normal to inspection, nondistended, normoactive bowel sounds, non-tender and non-distended Extremity normal capillary refill Extremity Narrative: Wound VAC left posterior distal lower extremity. General Extremity: Negative for edema Skin no rashes or lesions noted Skin Narrative: Left posterior lower extremity wound VAC. General Skin Exam: no breakdown Wound Narrative: Left posterior distal lower extremity wound VAC. Psych affect normal Appearance: appropriate Weight / BMI Weight Weight: 84.6 kg Body Mass Index (BMI) 27.6 ABG / Lab / Microbiology Data 05/02/23 08:48 05/02/23 08:48 Microbiology: Microbiology 04/30/23 17:50 Urine Catheter - Catheter Urine Culture - Final Culture exhibits no growth. 04/30/23 17:15 Mucosa - Nasopharyngeal Respiratory Panel (PCR) - Final 04/30/23 17:05 Nasal Secretion SARS-CoV-2 Antigen (Rapid) - Final Indicators for Scoring Admitted with or Primary Diagnosis of CVA/Stroke: Yes Hx of CVA/Stroke: No Modified Pike Score MRS Score at time of Evaluation: 4-Moderate/severe disability D/C Instructions Discharge Diet: - (Regular texture, honey thick liquids.) Discharge Activity: Return to Normal Activity, May Shower and Use Walker Weight Bearing Status: Weight bearing as tolerated Call your doctor if you observe: Fever of 101 or Higher, Inability to urinate, Inability to have a bowel movement, Shortness of breath, Dizziness, Fainting spells, Swelling in the ankles, Chest pain and Uncontrolled pain Additional Instructions: Discharge to TCU 05/15/2023, skilled. Meaningful Use Info Meaningful Use Diagnoses (Choose all that apply): None applicable Discharge Plan Admission Admit Date/Time: 04/30/23 15:40 Primary Reason for Your Visit: Debility. Attending Provider: Antonio Gómez Chi Primary Care Provider: Ankur Medina Instructions Additional Instructions / Restrictions: Discharge to TCU 05/15/2023, skilled. Discharge Orders/Prescriptions Prescriptions: New acetaminophen 500 mg Tablet 1,000 mg PO Q6H PRN PRN (Reason: Pain Score 1-10) Qty: 0 0RF tizanidine 2 mg Tablet 2 - 4 mg PO QHS PRN PRN (Reason: muscle spasm lasting>5 min) Qty: 0 0RF citalopram 10 mg Tablet 10 mg PO DAILY Qty: 0 0RF enoxaparin 40 mg/0.4 mL Syringe 40 mg subcut DAILY@0600 Qty: 0 0RF Continued finasteride [Proscar] 5 mg tablet 5 mg PO DAILY cilostazol 50 mg tablet 50 mg PO BID clopidogrel 75 mg tablet 75 mg PO DAILY cyanocobalamin (vitamin B-12) 1,000 mcg tablet 1,000 mcg PO DAILY gabapentin 100 mg capsule 100 mg PO DAILY gabapentin 100 mg capsule 200 mg PO QHS Patient Comments: 04/26 pt states tried to cut back, taking only 100mg in the am, 200mg at hs melatonin 5 mg capsule 5 mg PO QHS PRN (Reason: insomnia) Patient Comments: 04/26 pt states takes every night menthol-zinc oxide [Calmoseptine] 0.44-20.6 % Ointment 1 applic topical TID Qty: 0 0RF Protocol: *Topical Application Instructions APPLICATION INSTRUCTIONS: to buttocks and perirectal area miconazole nitrate [Desenex] 2 % Powder 1 applic topical BID Qty: 0 0RF Protocol: *Topical Application Instructions APPLICATION INSTRUCTIONS: Apply to groin sennosides-docusate sodium [Stool Softener-Stimulant Laxat] 8.6-50 mg Tablet 2 tab PO BID PRN PRN (Reason: Constipation) Qty: 0 0RF pantoprazole 20 mg Tablet,Delayed Release (Dr/Ec) 20 mg PO BID Qty: 0 0RF ferrous sulfate 325 mg (65 mg iron) tablet 325 mg PO BID Qty: 1 0RF atorvastatin 80 mg tablet 80 mg PO QHS Qty: 90 3RF Discontinued aspirin 81 mg tablet,delayed release (DR/EC) 81 mg PO DAILY Qty: 1 0RF Rx Instructions: use for 21 days, then discontinue No Action acetaminophen [Tylenol Extra Strength] 500 mg tablet 500 mg PO Q4H PRN (Reason: Pain Or Fever) tizanidine 2 MG tablet 2 mg PO .COMPLEX PRN (Reason: muscle spasm lasting more than 5 minutes) Rx Instructions: 2 mg orally 1-2 tabs at hs PRN; Boaz (with collagen) 7-7-1.5 gram Powder In Packet 1 packet PO BIDCM Qty: 0 0RF Referrals / Follow Up: Ankur Medina DO [Primary Care Provider] - Disposition Disposition (needs filled in before D/C Order can be placed): [facility]
--- NOTE | 2023-05-14 09:14 | TREXTCAR_ITS ---
Diet Diet Order/Speech Therapy: 05/10/23 14:35 Diet: Cardiac - Heart Healthy Is pt able to select menu?: Yes Diet Comments: send all drinks in plastic cups WITH HANDLES please, Magic cup w/ all meals Routine Orders/Code Status Code Status: DNRCC-A (No intubation.) Wound(s) Coccyx: Wound Type: Pressure Injury Left Achilles: Wound Type: nonhealing wound Dressing Change: KCI wound VAC left buttock: Wound Type: Pressure Injury Dressing Change: Mepilex Therapies Weight Bearing: Weight bearing as tolerated Extremity Affected:: Bilateral Lower Physical Therapy: Eval and Treat Occupational Therapy: Eval and Treat Speech Therapy: Eval and Treat Problem/Diagnosis (1) Debility: Status: Acute Code(s): R53.81 - Other malaise (2) TIA (transient ischemic attack): Status: Inactive Code(s): G45.9 - Transient cerebral ischemic attack, unspecified (3) Right hemiparesis: Status: Acute Code(s): G81.91 - Hemiplegia, unspecified affecting right dominant side (4) Dysarthria: Status: Acute Code(s): R47.1 - Dysarthria and anarthria (5) Hypertension: Status: Chronic Code(s): I10 - Essential (primary) hypertension (6) Atrial fibrillation: Status: Acute Code(s): I48.91 - Unspecified atrial fibrillation (7) Hyperlipidemia: Status: Chronic Code(s): E78.5 - Hyperlipidemia, unspecified (8) BPH (benign prostatic hyperplasia): Status: Acute Code(s): N40.0 - Benign prostatic hyperplasia without lower urinary tract symptoms (9) Neuropathic pain: Status: Acute Code(s): M79.2 - Neuralgia and neuritis, unspecified (10) Cervical spinal stenosis: Status: Acute Code(s): M48.02 - Spinal stenosis, cervical region (11) Muscle spasm: Status: Acute Code(s): M62.838 - Other muscle spasm Plan 82 year old male with below past medical history hospitalized for TIA, right hemiparesis, complicated by dysphagia/achalasia, admitted to for 3 hours daily rehabilitation, strengthening, prior to discharge home alone. * Debility - PT/OT/ST. * Pain - Tylenol 1000mg q6 prn pain (1-10). * Bowel - senna/colace 2 tablets bid prn, MOM 30ml daily prn. * DVT prophylaxis - Lovenox 40mg sc daily. * TIA - Plavix 75mg daily, Pletal 50mg bid, Aspirin 81mg daily x 21 days, then stop. * Hyperlipidemia - Atorvastatin 80mg qhs. * PAOD - Plavix 75mg daily, Pletal 50mg bid. * Vitamin B12 deficiency - B12 1000mcg daily. * Iron deficiency - Ferrous sulfate 325mg bidcm. * BPH - Finasteride 5mg daily. * Neuropathic pain - Gabapentin 100mg am, 200mg qhs. * Left lower extremity wound - wound VAC, Boaz 1 packet bidcm, wound nurse. * Insomnia - Melatonin 5mg qhs prn. * Skin irritation - Calmoseptine topical bid. * Tinea corporis - Miconazole topical bid. * GERD - Pantoprazole 20mg bid. * Muscle spasm - Tizanidine 2mg q12h prn. * Depression - Citalopram 10mg daily. Allergies/Procedures Done in Hospital Allergies No Known Allergies Allergy (Verified 04/25/23 17:01) Procedures: None Type of Care/Length of Stay Estimated LOS: Convalescent Care Less Than 30 days Type of Care Needed: Skilled Rehab Potential: Poor Prognosis: Fair Additional Orders/Day of Discharge Day of Discharge: 05/15/23 Dietary and Speech Recommendations Dietitian Recommendations/Changes: Continue Cardiac diet with liquid consistency per SAP CRM DEVELOPER to manage medical conditions. RD will discontinue Boaz BID and EPHP due to pt dislike. Discharge Plan Admission Admit Date/Time: 04/30/23 15:40 Primary Reason for Your Visit: Debility. Attending Provider: Antonio Gómez Chi Primary Care Provider: Ankur Medina Instructions Additional Instructions / Restrictions: Discharge to TCU 05/15/2023, skilled. Discharge Orders/Prescriptions Prescriptions: New acetaminophen 500 mg Tablet 1,000 mg PO Q6H PRN PRN (Reason: Pain Score 1-10) Qty: 0 0RF tizanidine 2 mg Tablet 2 - 4 mg PO QHS PRN PRN (Reason: muscle spasm lasting>5 min) Qty: 0 0RF citalopram 10 mg Tablet 10 mg PO DAILY Qty: 0 0RF enoxaparin 40 mg/0.4 mL Syringe 40 mg subcut DAILY@0600 Qty: 0 0RF Continued finasteride [Proscar] 5 mg tablet 5 mg PO DAILY cilostazol 50 mg tablet 50 mg PO BID clopidogrel 75 mg tablet 75 mg PO DAILY cyanocobalamin (vitamin B-12) 1,000 mcg tablet 1,000 mcg PO DAILY gabapentin 100 mg capsule 100 mg PO DAILY gabapentin 100 mg capsule 200 mg PO QHS Patient Comments: 04/26 pt states tried to cut back, taking only 100mg in the am, 200mg at hs melatonin 5 mg capsule 5 mg PO QHS PRN (Reason: insomnia) Patient Comments: 04/26 pt states takes every night menthol-zinc oxide [Calmoseptine] 0.44-20.6 % Ointment 1 applic topical TID Qty: 0 0RF Protocol: *Topical Application Instructions APPLICATION INSTRUCTIONS: to buttocks and perirectal area miconazole nitrate [Desenex] 2 % Powder 1 applic topical BID Qty: 0 0RF Protocol: *Topical Application Instructions APPLICATION INSTRUCTIONS: Apply to groin sennosides-docusate sodium [Stool Softener-Stimulant Laxat] 8.6-50 mg Tablet 2 tab PO BID PRN PRN (Reason: Constipation) Qty: 0 0RF pantoprazole 20 mg Tablet,Delayed Release (Dr/Ec) 20 mg PO BID Qty: 0 0RF ferrous sulfate 325 mg (65 mg iron) tablet 325 mg PO BID Qty: 1 0RF atorvastatin 80 mg tablet 80 mg PO QHS Qty: 90 3RF Discontinued aspirin 81 mg tablet,delayed release (DR/EC) 81 mg PO DAILY Qty: 1 0RF Rx Instructions: use for 21 days, then discontinue No Action acetaminophen [Tylenol Extra Strength] 500 mg tablet 500 mg PO Q4H PRN (Reason: Pain Or Fever) tizanidine 2 MG tablet 2 mg PO .COMPLEX PRN (Reason: muscle spasm lasting more than 5 minutes) Rx Instructions: 2 mg orally 1-2 tabs at hs PRN; Boaz (with collagen) 7-7-1.5 gram Powder In Packet 1 packet PO BIDCM Qty: 0 0RF Referrals / Follow Up: Ankur Medina DO [Primary Care Provider] - Disposition Disposition (needs filled in before D/C Order can be placed): Assisted Facility (7) Hyperlipidemia Qualifiers: Hyperlipidemia type: mixed hyperlipidemia Qualified Code(s): E78.2 - Mixed hyperlipidemia
--- NOTE | 2023-05-14 14:30 | CHAPLAIN ---
Type of Pastoral Visit ___ Initial Visit _x__ Follow-up Visit ___ On-call Visit ___ General Patient Visit ___ Spiritual Assessment ___ Family Conference ___ Bereavement ___ Rapid Response ___ Code Blue ___ Other (describe below) Pastoral Care Referral From _x__ Patient ___ Family ___ Nurse ___ Physician ___ Convertible Top Installer ___ Hog Handler ___ Other (describe below) Sacrament/Intervention _x__ Active listening ___ Anointing ___ Quaker ___ Bereavement ___ Communion ___ Pooja exploration ___ _x__ Life review _x__ Prayer ___ Reconciliation ___ Sacrament of Sick _x__ Supportive presence ___ Wedding ___ Other (describe below) Pastoral Comments patient remembers this brush stainer from previous visit in [place]; pt reports that he has been making some progress and will be moved to [facility] soon; pt gives some life review and talks about focusing on his memories of 64 year old marriage and his departed ; pt has a goal to get home; pt welcomes visit and a prayer
[2023-05-14 19:21] VITALS: BP 110/54; PULSE 50; RESP 16; TEMP 36.7; O2SAT 98
[2023-05-14] MEDS: Gabapentin 100 MG Capsule 200 MG PO (21:12)
[2023-05-14] MEDS: Atorvastatin Calcium 80 MG Tablet PO (21:12)
[2023-05-14] MEDS: tiZANidine HCl 2 MG Tablet PO (21:13)
[2023-05-14 22:00] VITALS: PULSE 54; RESP 16
[2023-05-15] MEDS: Enoxaparin 40 MG/0.4 ML Syringe SC (05:03)
[2023-05-15] MEDS: Menthol/Lanolin/Calamine/Znox 113 GM Tube 1 APPLIC TOPICAL (05:03)
[2023-05-15] MEDS: Miconazole Nitrate 43 GM Bottle 1 APPLIC TOPICAL (05:04)
[2023-05-15 07:34] VITALS: BP 115/55; PULSE 46; RESP 15; TEMP 36.4; O2SAT 95
[2023-05-15] MEDS: Pantoprazole Sodium 20 MG Tablet PO (08:44)
[2023-05-15] MEDS: Cyanocobalamin 500 MCG Tablet 1000 MCG PO (08:44)
[2023-05-15] MEDS: Gabapentin 100 MG Capsule PO (08:44)
[2023-05-15] MEDS: Clopidogrel Bisulfate 75 MG Tablet PO (08:44)
[2023-05-15] MEDS: Finasteride 5 MG Tablet PO (08:45)
[2023-05-15] MEDS: Citalopram 10 MG Tablet PO (08:45)
[2023-05-15] MEDS: Aspirin E.C. 81 MG Tablet PO (08:45)
[2023-05-15] MEDS: Cilostazol 50 MG Tablet PO (08:45)
[2023-05-15] MEDS: Ferrous Sulfate 325 MG Tablet PO (08:45)
[2023-05-15 10:37] VITALS: BP 115/55; PULSE 46; RESP 15; TEMP 36.4; O2SAT 95
--- NOTE | 2023-05-15 10:38 | NURSING ---
discharged to TCU. Report called to Margaret DRUMMOND
== END 2023-05-15 10:36 | disposition skilled nursing facility (03) | DRG 57 ==
PROVIDERS: Admitting Provider Family Medicine Geriatric Medicine; PCP Family Medicine; Referring Provider Family Medicine Geriatric Medicine; Visit Provider Family Medicine Geriatric Medicine
DX: I69.351 Hemiplegia and hemiparesis following cerebral infarction affecting right dominant side (principal); D64.9 Anemia, unspecified; E53.8 Deficiency of other specified B group vitamins; B35.4 Tinea corporis; E78.2 Mixed hyperlipidemia; I48.0 Paroxysmal atrial fibrillation; I73.9 Peripheral vascular disease, unspecified; I69.322 Dysarthria following cerebral infarction; F32.A Depression, unspecified; E61.1 Iron deficiency; M62.838 Other muscle spasm; M48.02 Spinal stenosis, cervical region; I25.10 Atherosclerotic heart disease of native coronary artery without angina pectoris; G62.9 Polyneuropathy, unspecified; I69.391 Dysphagia following cerebral infarction; S91.002D Unspecified open wound, left ankle, subsequent encounter; Z79.02 Long term (current) use of antithrombotics/antiplatelets; Z87.891 Personal history of nicotine dependence; Z95.5 Presence of coronary angioplasty implant and graft; N40.0 Benign prostatic hyperplasia without lower urinary tract symptoms; Z79.82 Long term (current) use of aspirin; Z79.899 Other long term (current) drug therapy; X58.XXXD Exposure to other specified factors, subsequent encounter
CPT/HCPCS: 36415; 74230; 80048; 80053; 81001; 85025; 87086; 87633; 87811; 92507; 92523; 92526; 92610; 92611; 94668; 97110; 97112; 97116; 97162; 97166; 97530; 97535; 97802; 97803; 99406; J7030

== ENCOUNTER 2023-05-15 10:57 | Inpatient (IN) | payer MEDICARE, BC, SELFPAY ==
[2023-05-15 11:12] VITALS: BP 120/57; PULSE 51; PULSE 58; RESP 16; RESP 18; TEMP 36.4; O2SAT 95; BMI 26.6
[2023-05-15 11:26] VITALS: BMI 26.6
[2023-05-15 11:35] VITALS: BP 107/46; PULSE 51; RESP 18; TEMP 36.6; O2SAT 95
[2023-05-15] MEDS: Menthol/Lanolin/Calamine/Znox 113 GM Tube 1 APPLIC TOPICAL ×2 (14:07→22:33)
--- NOTE | 2023-05-15 14:15 | WOUNDNOTE ---
wound photo: left Achilles area
--- NOTE | 2023-05-15 15:16 | HP.PCM_ITS ---
HPI - General General Date of Admission: 05/15/23 Date of Service: 05/15/23 Chief Complaint: Here for rehabiliation. HPI Narrative 04/25/2023 SARA SAHA, is a 82 Male who presents to [facility] Emergency Department with numbness, tingling, slurred speech.. Slurred speech, headache, off balance for 3 days, right side of body does not work. Chest X-ray negative. CT head negative, CTA head/neck, no significant large vessel occlusion. 04/25/2023 Admit to Hospital for stroke. Aspirin, Plavix, Statin, MRI brain for stroke. PT/OT/ST. 04/25/2023 Echo EF 55%. Diastolic dysfunction indeterminate. 04/26/2023 MRI brain negative for stroke. Modified barium swallow showed regular textures, honey thick liquids. 04/27/2023 Consult GI for EGD. 04/28/2023 Occipital headache, feels weak. PT/OT for debility. 04/29/2023 Dr. Monterroso EGD suspicious for achalasia, acquired duodenal stenosis. 04/29/2023 Aspirin 81mg daily x 21 days, Plavix 75mg daily, then Plavix 75mg daily, along with Pletal 50mg bid. Iron studies for anemia evaluation. 04/30/2023 Admit to for 3 hours daily rehabilitation, strengthening, prior to discharge home alone. Patient depressed, Citalopram 10mg daily added. Patient hypotensive, encouraged oral fluid intake. 05/15/2023 Admit to TCU with debility, here for rehabilitation, strengthening, prior to disposition determination. 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 Balanitis BPH (benign prostatic hyperplasia) Bradycardia Catheter-associated urinary tract infection Cervical radiculopathy Debility Depression Dilated aortic root Eczema Essential hypertension Fecal incontinence Generalized weakness History of basal cell cancer History of ST elevation myocardial infarction (STEMI) (01/11/16) Hyperlipidemia Left ventricular hypertrophy Leg swelling Microscopic hematuria Myelopathy Normochromic normocytic anemia 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 Orthostatic hypotension Osteoarthritis PAD (peripheral artery disease) Paroxysmal atrial fibrillation Pressure ulcer Renal cyst Restless leg syndrome Stenosis of cervical spine with myelopathy TIA (transient ischemic attack) Tobacco dependence in remission Urinary incontinence Urinary tract infection Urine retention Home Medications finasteride 5 mg tablet (Proscar) 5 mg PO DAILY prostate 07/18/17 [History Last Taken 05/15/23] acetaminophen 500 mg tablet (Tylenol Extra Strength) 500 mg PO Q4H PRN Pain Or Fever 09/25/18 [History Last Taken 04/25/23 10:34 500 mg] cilostazol 50 mg tablet 50 mg PO BID vasodilator 02/02/22 [History Last Taken 05/15/23] clopidogrel 75 mg tablet 75 mg PO DAILY anti platelet 02/02/22 [History Last Taken 05/15/23] atorvastatin 80 mg tablet 80 mg PO QHS cholesterol #90 tabs 04/30/22 [Rx Last Taken 05/15/23] cyanocobalamin (vitamin B-12) 1,000 mcg tablet 1,000 mcg PO DAILY general health 04/01/23 [History Last Taken 05/15/23] gabapentin 100 mg capsule 100 mg PO DAILY nerve pain 04/25/23 [History Last Taken 05/15/23] gabapentin 100 mg capsule 200 mg PO QHS pain 04/25/23 [History Last Taken 05/14/23] melatonin 5 mg capsule 5 mg PO QHS PRN insomnia 04/26/23 [History Last Taken 05/11/23] arginine 7 gram-glutam 7 gram-CaHMB 1.5 [id number]-min oral pwd pkt (Boaz (with collagen)) 1 packet PO BIDCM nutrition #0 ea 04/30/23 [Rx Last Taken 04/30/23] ferrous sulfate 325 mg (65 mg iron) tablet 325 mg PO BID supplement #1 TAB 04/30/23 [Rx Last Taken 05/15/23] menthol 0.44 %-zinc oxide 20.6 % topical ointment (Calmoseptine) 1 applic topical TID rash #0 grams 04/30/23 [Rx Last Taken 05/15/23] miconazole nitrate 2 % topical powder (Desenex) 1 applic topical BID redness #0 grams 04/30/23 [Rx Last Taken 05/15/23] pantoprazole 20 mg tablet,delayed release 20 mg PO BID gerd #0 tabs 04/30/23 [Rx Last Taken 05/15/23] sennosides 8.6 mg-docusate sodium 50 mg tablet (Stool Softener-Stimulant Laxative) 2 tab PO BID PRN PRN Constipation #0 tabs 04/30/23 [Rx Last Taken Unknown] tizanidine 2 mg tablet 2 mg PO .COMPLEX PRN muscle spasm lasting more than 5 minutes 05/03/23 [History Last Taken 05/14/23] acetaminophen 500 mg tablet 1,000 mg (2 x 500 mg) PO Q6H PRN PRN Pain Score 1-10 #0 tabs 05/14/23 [Rx Last Taken 05/14/23] citalopram 10 mg tablet 10 mg PO DAILY mood #0 tabs 05/14/23 [Rx Last Taken Unknown] enoxaparin 40 mg/0.4 mL subcutaneous syringe 40 mg (0.4 mL) subcut DAILY@0600 blood thinner #0 mL 05/14/23 [Rx Last Taken 05/15/23] tizanidine 2 mg tablet 2 - 4 mg (1 - 2 x 2 mg) PO QHS PRN PRN muscle spasm lasting>5 min #0 tabs 05/14/23 [Rx Last Taken Unknown] Allergy/AdvReac Type Severity Reaction Status Date / Time No Known Allergies Allergy Verified 04/25/23 17:01 Family History Mother CHF (congestive heart failure) Heart disease Hypertension Father COPD (chronic obstructive pulmonary disease) Surgical History H/O laminectomy History of coronary artery stent placement (01/11/16) History of knee surgery History of pilonidal cyst History of vascular surgery S/P debridement S/P rotator cuff repair Social History household members: none current occupation: retired current occupational exposures/hazards: No history of recent travel: No Smoking Status: Former smoker how long ago did patient quit smokin alcohol intake: current alcohol intake frequency: holidays/special occasions only details: occasional,holiday substance use type: does not use caffeine: Yes Type: coffee Number of servings: 10 what type of physical activity do you participate in: bicycling frequency: 1-2 times per week duration: 15-30 minutes/day seatbelt use: always do you feel safe at home: Yes ROS Constitutional Constitutional: Denies chills, fever(s) or weight gain ENT HEENT: Denies headache(s), nasal congestion or nasal discharge Cardiovascular Cardiovascular: Denies chest pain or palpitations Respiratory/Chest Respiratory/Chest: Denies cough, excessive phlegm production or shortness of breath with exertion Gastrointestinal Gastrointestinal: Denies abdominal pain, nausea or vomiting Genitourinary Genitourinary: Denies dysuria Musculoskeletal Musculoskeletal: Denies joint pain or joint swelling Integumentary Integumentary: Denies rash or wounds Neurologic Neurologic: Denies focal weakness, numbness or tingling Psychiatric Psychiatric: Denies anxiety, auditory hallucinations, depression, homicidal ideation or suicidal ideation Vital Signs Vital Signs Vital Signs: 05/15/23 11:35 05/15/23 11:12 05/15/23 11:12 Temperature 98 F 97.6 F L Temperature Source Temporal Temporal Pulse Rate 51 L 51 L 58 L Pulse Rhythm Regular Pulse Strength Normal (2+) Respiratory Rate 18 18 16 Respiratory Effort Normal Non-Labored Respiratory Depth Normal Respiratory Pattern Normal Blood Pressure 107/46 L 120/57 L Blood Pressure Mean 66 78 Blood Pressure Source Monitor Monitor Blood Pressure Position Semi-Fowlers Supine Blood Pressure Location Left Arm Right Arm Pulse Ox 95 95 Oxygen Delivery Method Room Air Room Air Room Air Weight Weight: 81.873 kg Body Mass Index (BMI) 26.6 Physical Exam Const alert General Appearance: cooperative HEENT normocephalic Eyes PERRL and EOMs intact bilaterally Neck supple, no JVD and no carotid bruits Resp normal respiratory effort, normal air movement and clear to auscultation bilaterally Cardio regular rate and regular rhythm GI normal to inspection, nondistended, normoactive bowel sounds, non-tender and non-distended Extremity normal capillary refill Extremity Narrative: Wound VAC left posterior distal lower extremity. General Extremity: Negative for edema Skin no rashes or lesions noted Skin Narrative: Left posterior lower extremity wound VAC. General Skin Exam: no breakdown Wound Narrative: Left posterior distal lower extremity wound VAC. Psych affect normal Appearance: appropriate Assessment & Plan Assessment/Plan (1) Debility: (2) Right hemiparesis: (3) Dysarthria: (4) Hypertension: (5) Atrial fibrillation: (6) BPH (benign prostatic hyperplasia): (7) Neuropathic pain: (8) Cervical spinal stenosis: (9) Muscle spasm: (10) Hyperlipidemia: QUALIFIERS: Hyperlipidemia type: mixed hyperlipidemia Qualified Code(s): E78.2 - Mixed hyperlipidemia (11) Peripheral arterial occlusive disease: PLAN: Plan 82 year old male with below past medical history hospitalized for TIA, right hemiparesis, complicated by dysphagia/achalasia, admitted to for 3 hours daily rehabilitation, strengthening, prior to discharge home alone. * Debility - PT/OT/ST. * Pain - Tylenol 1000mg q6 prn pain (1-10). * Bowel - senna/colace 2 tablets bid prn, MOM 30ml daily prn. * DVT prophylaxis - Lovenox 40mg sc daily. * TIA - Plavix 75mg daily, Pletal 50mg bid. * Hyperlipidemia - Atorvastatin 80mg qhs. * PAOD - Plavix 75mg daily, Pletal 50mg bid. * Vitamin B12 deficiency - B12 1000mcg daily. * Iron deficiency - Ferrous sulfate 325mg bidcm. * BPH - Finasteride 5mg daily. * Neuropathic pain - Gabapentin 100mg am, 200mg qhs. * Left lower extremity wound - wound VAC, Boaz 1 packet bidcm. * Insomnia - Melatonin 5mg qhs prn. * Skin irritation - Calmoseptine topical bid. * Tinea corporis - Miconazole topical bid. * GERD - Pantoprazole 20mg bid. * Muscle spasm - Tizanidine 2mg q12h prn. * Depression - Citalopram 10mg daily, stable chronic mcc use, GDR not recommended.
--- NOTE | 2023-05-15 15:38 | NURSING ---
Assistant Producer Note; Activity Asset: Felipe Cerrato is independent in his choice of daily activities. He also goes by Lloyd. Lloyd will watch tv and enjoys [employer]. He welcomes visits from the sales enablement manager and [facility] will come visits. Staff will continue to offer in room and group activities and respect his right to say no.
[2023-05-15] MEDS: Ferrous Sulfate 325 MG Tablet PO (17:00)
--- NOTE | 2023-05-15 17:35 | CASEMGMT ---
Social Work Pt admitted from [facility]. No changes to assessment. Pt aware of Medicare benefit and copay coverage. Reminded pt for dtr to provide copies of advanced directives. SW will continue to follow for DC planning. CARL PeaceW
[2023-05-15] MEDS: Gabapentin 100 MG Capsule 200 MG PO (22:24)
[2023-05-15] MEDS: Acetaminophen 500 MG Tablet 1000 MG PO (22:24)
[2023-05-15] MEDS: tiZANidine HCl 2 MG Tablet PO (22:25)
[2023-05-15] MEDS: Pantoprazole Sodium 20 MG Tablet PO (22:25)
[2023-05-15] MEDS: Atorvastatin Calcium 80 MG Tablet PO (22:26)
[2023-05-15] MEDS: Cilostazol 50 MG Tablet PO (22:27)
[2023-05-15] MEDS: Nystatin Powder 15gm Bottle 1 APPLIC TOPICAL (22:33)
[2023-05-16] MEDS: Enoxaparin 40 MG/0.4 ML Syringe SC (05:45)
[2023-05-16] MEDS: Menthol/Lanolin/Calamine/Znox 113 GM Tube 1 APPLIC TOPICAL ×3 (05:45→21:10)
[2023-05-16 07:38] LABS: Absolute Lymphocyte Count 0.69 X10^3/uL (0.83-4.51); Absolute Neutrophil Count 1.8 X10^3/uL (2.0-7.7); Basophil# 0.01 X10^3/uL; Basophil% 0.3 % (0-1); Eosinophil# 0.06 X10^3/uL; Eosinophils% 1.9 % (0-5); Lymphocyte # 0.69 X10^3/ul (0.83-4.51); Lymphocyte % 22.1 % (19-41); Mean Corp Hgb Conc 31.3 g/dL (32-36); Mean Corpuscular Hgb 29.6 pg (27.0-32.0); Mean Corpuscular Volume 94.7 fL (80-94); Mean Platelet Vol. 10.6 fl (6.2-12.0); Monocyte# 0.54 X10^3/uL; Monocyte% 17.3 % (0-10); NRBC Flagged by Analyzer 0 % (0-5); Neutrophil % 57.8 % (47-70); Platelet Count 322 K/mm3 (150-450); RBC Distribution Width SD 48.1 fl (35.1-43.9); Red Blood Count 3.38 M/mm3 (4.6-6.2); White Blood Count 3.1 K/mm3 (4.4-11.0)
[2023-05-16 07:53] LABS: Anion Gap 2 (5-15); BUN 19 mg/dL (7-18); BUN/Creat Ratio 27.3 RATIO (10-20); Calcium,Total 8.1 mg/dL (8.5-10.1); Chloride 106 mmol/L (98-107); EST Glomerular Filtration Rate 115 mL/min (>60); Est Glom Filt Rate - Afr Amer 139 mL/min (>60); Estimated Creatinine Clearance 56.95 ml/min; Glucose 85 mg/dL (74-106); Potassium 4.1 mmol/L (3.5-5.1); Sodium Level 139 mmol/L (136-145)
[2023-05-16] MEDS: Clopidogrel Bisulfate 75 MG Tablet PO (09:44)
[2023-05-16] MEDS: Gabapentin 100 MG Capsule PO (09:44)
[2023-05-16] MEDS: Citalopram 10 MG Tablet PO (09:44)
[2023-05-16] MEDS: Nystatin Powder 15gm Bottle 1 APPLIC TOPICAL ×2 (09:45→21:11)
[2023-05-16] MEDS: Pantoprazole Sodium 20 MG Tablet PO ×2 (09:45→21:05)
[2023-05-16] MEDS: Finasteride 5 MG Tablet PO (09:45)
[2023-05-16] MEDS: Cyanocobalamin 500 MCG Tablet 1000 MCG PO (09:45)
[2023-05-16] MEDS: Cilostazol 50 MG Tablet PO ×2 (09:45→21:05)
[2023-05-16] MEDS: Tuberculin,Purif.prot.deriv. 50 TU/ML Vial 0.1 ML ID (12:37)
[2023-05-16] MEDS: Ferrous Sulfate 325 MG Tablet PO ×2 (12:37→17:19)
[2023-05-16] MEDS: Acetaminophen 500 MG Tablet 1000 MG PO ×2 (13:44→21:03)
[2023-05-16] MEDS: Senna/Docusate Sodium 1 Tablet 2 TABLET PO (13:49)
--- NOTE | 2023-05-16 13:51 | NURSING ---
Patient has been doing own oral care after meals today. Swabs within reach. Educated to perform oral care after medications with applesauce as well.
[2023-05-16 15:42] VITALS: BP 89/56; PULSE 63; RESP 16; TEMP 36.4; O2SAT 96
[2023-05-16] MEDS: Gabapentin 100 MG Capsule 200 MG PO (21:03)
[2023-05-16] MEDS: tiZANidine HCl 2 MG Tablet PO (21:04)
[2023-05-16] MEDS: Atorvastatin Calcium 80 MG Tablet PO (21:05)
[2023-05-17] MEDS: Enoxaparin 40 MG/0.4 ML Syringe SC (06:02)
[2023-05-17] MEDS: Menthol/Lanolin/Calamine/Znox 113 GM Tube 1 APPLIC TOPICAL ×3 (06:05→21:46)
[2023-05-17] MEDS: Pantoprazole Sodium 20 MG Tablet PO ×2 (09:45→21:48)
[2023-05-17] MEDS: Cyanocobalamin 500 MCG Tablet 1000 MCG PO (09:45)
[2023-05-17] MEDS: Citalopram 10 MG Tablet PO (09:45)
[2023-05-17] MEDS: Clopidogrel Bisulfate 75 MG Tablet PO (09:45)
[2023-05-17] MEDS: Finasteride 5 MG Tablet PO (09:45)
[2023-05-17] MEDS: Cilostazol 50 MG Tablet PO ×2 (09:45→21:47)
[2023-05-17] MEDS: Nystatin Powder 15gm Bottle 1 APPLIC TOPICAL ×2 (09:46→21:47)
[2023-05-17] MEDS: Acetaminophen 500 MG Tablet 1000 MG PO ×2 (09:49→21:45)
[2023-05-17] MEDS: Gabapentin 100 MG Capsule PO (09:51)
[2023-05-17] MEDS: Ferrous Sulfate 325 MG Tablet PO ×2 (11:59→16:47)
[2023-05-17 16:00] VITALS: BP 128/65; PULSE 58; RESP 18; TEMP 36.6; O2SAT 98
--- NOTE | 2023-05-17 16:42 | PCM.PN.DRR ---
Documented by User: Maggie Oseguera 05/17/23 16:57 TCU RX Drug Regimen Review Subjective/Objective Subjective/Objective: Subjective: TCU Admission. 82 YOM presented to the ER with numbness, tingling, and slurred speech. Hospitalized for TIA, right hemiparesis, complicated by dysphagia/achalasia, admitted to [facility]. Admitted to TCU with debility for strengthening and rehabilitation. Objective: Allergies No Known Allergies Allergy (Verified 04/25/23 17:01) Current Medications Generic Name Dose Route Start Last Admin Trade Name Freq PRN Reason Stop Dose Admin Acetaminophen 1,000 mg 05/15/23 11:14 05/17/23 09:49 Acetaminophen 500 Mg Tablet PO 500 mg Q6H PRN PRN Administration Pain Score 1-10 Atorvastatin Calcium 80 mg 05/15/23 22:00 05/16/23 21:05 Atorvastatin Calcium 80 Mg Tablet PO 80 mg QHS DARION Administration Calamine/Phenol 1 applic 05/15/23 14:00 05/17/23 14:53 Menthol/Lanolin/Calamine/Znox 113 Gm Tube TOPICAL 1 applic TID DARION Administration Protocol Cilostazol 50 mg 05/15/23 22:00 05/17/23 09:45 Cilostazol 50 Mg Tablet PO 50 mg BID DARION Administration Citalopram Hydrobromide 10 mg 05/16/23 10:00 05/17/23 09:45 Citalopram 10 Mg Tablet PO 10 mg DAILY DARION Administration Clopidogrel Bisulfate 75 mg 05/16/23 10:00 05/17/23 09:45 Clopidogrel Bisulfate 75 Mg Tablet PO 75 mg DAILY DARION Administration Cyanocobalamin 1,000 mcg 05/16/23 10:00 05/17/23 09:45 Cyanocobalamin 500 Mcg Tablet PO 1,000 mcg DAILY DARION Administration Enoxaparin Sodium 40 mg 05/16/23 06:00 05/17/23 06:02 Enoxaparin 40 Mg/0.4 Ml Syringe SC 40 mg DAILY@0600 DARION Administration Ferrous Sulfate 325 mg 05/15/23 17:00 05/17/23 11:59 Ferrous Sulfate 325 Mg Tablet PO 325 mg BID@1200,1700 DARION Administration Finasteride 5 mg 05/16/23 10:00 05/17/23 09:45 Finasteride 5 Mg Tablet PO 5 mg DAILY DARION Administration Gabapentin 200 mg 05/15/23 22:00 05/16/23 21:03 Gabapentin 100 Mg Capsule PO 200 mg QHS DARION Administration Gabapentin 100 mg 05/16/23 10:00 05/17/23 09:51 Gabapentin 100 Mg Capsule PO 100 mg DAILY DARION Administration Melatonin 5 mg 05/15/23 11:31 Melatonin 10 Mg Tablet PO QHS PRN insomnia Nystatin 1 applic 05/15/23 22:00 05/17/23 09:46 Nystatin Powder 15gm Bottle TOPICAL 1 applic BID DARION Administration Protocol Pantoprazole Sodium 20 mg 05/15/23 22:00 05/17/23 09:45 Pantoprazole Sodium 20 Mg Tablet PO 20 mg BID DARION Administration Senna/Docusate Sodium 2 tablet 05/15/23 11:19 05/16/23 13:49 Senna/Docusate Sodium 1 Tablet PO 2 tablet BID PRN PRN Administration Constipation Tizanidine HCl 2 - 4 mg 05/15/23 22:00 05/16/23 21:04 Tizanidine Hcl 2 Mg Tablet PO 4 mg QHS PRN Administration muscle spasm lasting >5minutes Tuberculin PPD 0.1 ml 05/23/23 10:00 Tuberculin,Purif.Prot.Deriv. 50 Tu/Ml Vial ID 05/23/23 10:01 X1 ONE Problem List (Updated 05/08/23 @ 00:17 by Kriss Little) Muscle spasm (Acute) Cervical spinal stenosis (Acute) Neuropathic pain (Acute) BPH (benign prostatic hyperplasia) (Acute) Atrial fibrillation (Acute) Hypertension (Chronic) Dysarthria (Acute) Right hemiparesis (Acute) Debility (Acute) Hyperlipidemia (Chronic) Peripheral arterial occlusive disease (Chronic) Vital Signs Temp Pulse Resp BP Pulse Ox O2 Del Method 97.5 F L 63 16 89/56 L 96 Room Air 05/16/23 15:42 05/16/23 15:42 05/16/23 15:42 05/16/23 15:42 05/16/23 15:42 05/16/23 15:42 Oxygen Delivery Method Room Air Weight: 81.873 kg Body Mass Index (BMI) 26.6 Sodium 139 mmol/L (136-145) 05/16/23 06:45 Potassium 4.1 mmol/L (3.5-5.1) 05/16/23 06:45 Chloride 106 mmol/L (98-107) 05/16/23 06:45 Carbon Dioxide 31.0 mmol/L (21.0-32.0) 05/16/23 06:45 Anion Gap 2 (5-15) L 05/16/23 06:45 BUN 19 mg/dL (7-18) H 05/16/23 06:45 Creatinine 0.70 mg/dL (0.70-1.30) 05/16/23 06:45 Est GFR (MDRD) Af Amer 139 mL/min (>60) 05/16/23 06:45 Est GFR (MDRD) Non-Af 115 mL/min (>60) 05/16/23 06:45 BUN/Creatinine Ratio 27.3 RATIO (10-20) H 05/16/23 06:45 Glucose 85 mg/dL (74-106) 05/16/23 06:45 Assessment/Plan: 1. Pain: acetaminophen 1000mg PO Q6H PRN pain 1-10. Resident has received 4 doses from pain of 2-3 in foot/ankle. Please continue to monitor for increased pain and PRN usage. 2. Bowel: senna/docusate 2T PO BID PRN constipation. Resident has received 1 dose. Last documented bowel movement was 05/10. Please continue to monitor for constipation and PRN usage. 3. DVT prophylaxis: enoxaparin 40mg SC daily. Please continue to monitor for S/S of bleeding, hemoglobin (last 10g/dL), platelets (last 322,000) and renal function. 4. TIA/PAOD: clopidogrel 75mg PO daily and cilostazol 50mg PO BID. Please continue to monitor for S/S of bleeding and hemoglobin. 5. Hyperlipidemia: atorvastatin 80mg PO QHS. Please continue to monitor lipid panel (last 04/26/23), LFTs (last 04/30/23) and muscle pain. 6. Iron deficiency: ferrous sulfate 325mg PO BIDCM. Please continue to monitor hemoglobin, constipation and dark stools. 7. BPH: finasteride 5mg PO daily. Please continue to monitor for S/S of BPH and rash. 8. GERD: pantoprazole 20mg PO BID. Please continue to monitor for S/S of GERD and diarrhea (BEERs medication). 9. Muscle spasm: tizanidine 2mg PO Q12H PRN muscle spasm lasting >5 minutes. Resident has received 2 doses. Please continue to monitor for muscle spasms, drowsiness and PRN usage. 10. Insomnia: melatonin 5mg PO QHS PRN insomnia. Resident has not used any doses. Please continue to monitor for insomnia and PRN usage.. 11. Vitamin B12 deficiency: cyanocobalamin 1000mcg PO daily. Please continue to monitor B12 levels (last 05/04/23.) Assessment/Plan for indications treated with psychotropic medications: 1. Neuropathic pain: gabapentin 100mg PO daily and 200mg PO QHS. GDR not appropriate as this is being used for neuropathy. Please continue to monitor for S/S of pain, renal function and falls/fractures (BEERs medication). 2. Depression: citalopram 10mg PO daily. Please see physician note regarding GDR. Please continue to monitor for S/S of suicidal ideation (black box warning), falls/fractures (BEERs medication) and sodium (last 139mmol/L). Medical chart and medication regimen reviewed. The following medication irregularities or issues were identified: None Date Date of Note:: 05/17/23 Documented by User: Dr. Antonio Gómez MD 05/17/23 19:01 TCU RX Drug Regimen Review Provider Comments Provider responsibility Provider Comments to Recommendations by Pharmacy: Agree
[2023-05-17] MEDS: Gabapentin 100 MG Capsule 200 MG PO (21:45)
[2023-05-17] MEDS: Atorvastatin Calcium 80 MG Tablet PO (21:46)
[2023-05-17] MEDS: tiZANidine HCl 2 MG Tablet PO (21:49)
[2023-05-18] MEDS: Acetaminophen 500 MG Tablet 1000 MG PO ×2 (06:20→17:09)
[2023-05-18] MEDS: Enoxaparin 40 MG/0.4 ML Syringe SC (06:22)
[2023-05-18] MEDS: Menthol/Lanolin/Calamine/Znox 113 GM Tube 1 APPLIC TOPICAL ×3 (06:24→19:52)
[2023-05-18 07:14] LABS: Hematocrit 32.2 % (40-54); Hemoglobin 10.2 g/dL (13.0-16.5)
[2023-05-18] MEDS: Clopidogrel Bisulfate 75 MG Tablet PO (10:55)
[2023-05-18] MEDS: Pantoprazole Sodium 20 MG Tablet PO ×2 (10:55→19:51)
[2023-05-18] MEDS: Finasteride 5 MG Tablet PO (10:55)
[2023-05-18] MEDS: Gabapentin 100 MG Capsule PO (10:55)
[2023-05-18] MEDS: Citalopram 10 MG Tablet PO (10:55)
[2023-05-18] MEDS: Cyanocobalamin 500 MCG Tablet 1000 MCG PO (10:55)
[2023-05-18] MEDS: Cilostazol 50 MG Tablet PO ×2 (10:55→19:51)
[2023-05-18] MEDS: Nystatin Powder 15gm Bottle 1 APPLIC TOPICAL ×2 (10:56→19:52)
[2023-05-18] MEDS: Ferrous Sulfate 325 MG Tablet PO ×2 (13:12→17:09)
[2023-05-18 16:00] VITALS: BP 121/62; PULSE 61; RESP 16; TEMP 36.3; O2SAT 97
[2023-05-18] MEDS: tiZANidine HCl 2 MG Tablet PO (19:51)
[2023-05-18] MEDS: Gabapentin 100 MG Capsule 200 MG PO (19:52)
[2023-05-18] MEDS: Atorvastatin Calcium 80 MG Tablet PO (19:52)
[2023-05-19] MEDS: Menthol/Lanolin/Calamine/Znox 113 GM Tube 1 APPLIC TOPICAL ×3 (06:04→22:43)
[2023-05-19] MEDS: Enoxaparin 40 MG/0.4 ML Syringe SC (06:04)
[2023-05-19] MEDS: Clopidogrel Bisulfate 75 MG Tablet PO (10:55)
[2023-05-19] MEDS: Pantoprazole Sodium 20 MG Tablet PO ×2 (10:55→22:39)
[2023-05-19] MEDS: Cyanocobalamin 500 MCG Tablet 1000 MCG PO (10:55)
[2023-05-19] MEDS: Cilostazol 50 MG Tablet PO ×2 (10:56→22:38)
[2023-05-19] MEDS: Finasteride 5 MG Tablet PO (10:56)
[2023-05-19] MEDS: Citalopram 10 MG Tablet PO (10:56)
[2023-05-19] MEDS: Nystatin Powder 15gm Bottle 1 APPLIC TOPICAL ×2 (10:57→22:43)
[2023-05-19] MEDS: Ferrous Sulfate 325 MG Tablet PO ×2 (11:00→17:10)
[2023-05-19] MEDS: Acetaminophen 500 MG Tablet 1000 MG PO ×2 (11:00→22:37)
[2023-05-19] MEDS: Gabapentin 100 MG Capsule PO (11:00)
[2023-05-19 16:00] VITALS: BP 101/60; PULSE 56; RESP 16; TEMP 36.2; O2SAT 97
--- NOTE | 2023-05-19 18:33 | NURSING ---
Patient and patient family notified that there was a patient that tested positive for Covid today. Patient will be tested tomorrow.
[2023-05-19] MEDS: Gabapentin 100 MG Capsule 200 MG PO (22:37)
[2023-05-19] MEDS: tiZANidine HCl 2 MG Tablet PO (22:38)
[2023-05-19] MEDS: Atorvastatin Calcium 80 MG Tablet PO (22:39)
[2023-05-19 23:26] VITALS: PULSE 65; RESP 16; O2SAT 97
[2023-05-20] MEDS: Enoxaparin 40 MG/0.4 ML Syringe SC (05:22)
[2023-05-20] MEDS: Menthol/Lanolin/Calamine/Znox 113 GM Tube 1 APPLIC TOPICAL ×3 (05:30→21:45)
[2023-05-20 06:10] LABS: Hematocrit 32.6 % (40-54); Hemoglobin 10.3 g/dL (13.0-16.5)
[2023-05-20 06:20] VITALS: PULSE 48; RESP 16; O2SAT 95
[2023-05-20] MEDS: Acetaminophen 500 MG Tablet 1000 MG PO ×2 (10:02→21:43)
[2023-05-20] MEDS: Cyanocobalamin 500 MCG Tablet 1000 MCG PO (10:03)
[2023-05-20] MEDS: Gabapentin 100 MG Capsule PO (10:03)
[2023-05-20] MEDS: Citalopram 10 MG Tablet PO (10:03)
[2023-05-20] MEDS: Finasteride 5 MG Tablet PO (10:03)
[2023-05-20] MEDS: Cilostazol 50 MG Tablet PO ×2 (10:03→21:44)
[2023-05-20] MEDS: Clopidogrel Bisulfate 75 MG Tablet PO (10:03)
[2023-05-20] MEDS: Pantoprazole Sodium 20 MG Tablet PO ×2 (10:03→21:44)
--- NOTE | 2023-05-20 10:35 | WOUNDNOTE ---
wound photo: left Achilles area
--- NOTE | 2023-05-20 10:44 | NURSING ---
Covid vaccine not offered, patient had last covid vaccine less than 8 weeks ago.
[2023-05-20] MEDS: Ferrous Sulfate 325 MG Tablet PO ×2 (12:36→17:03)
[2023-05-20] MEDS: Nystatin Powder 15gm Bottle 1 APPLIC TOPICAL ×2 (12:50→21:44)
--- NOTE | 2023-05-20 13:28 | NURSING ---
Updated patient and family that a patient on the unit tested covid positive
[2023-05-20 14:50] VITALS: BP 101/52; RESP 16; TEMP 36.8; O2SAT 96
[2023-05-20] MEDS: Atorvastatin Calcium 80 MG Tablet PO (21:43)
[2023-05-20] MEDS: Gabapentin 100 MG Capsule 200 MG PO (21:43)
[2023-05-20] MEDS: tiZANidine HCl 2 MG Tablet PO (21:43)
[2023-05-21] MEDS: Menthol/Lanolin/Calamine/Znox 113 GM Tube 1 APPLIC TOPICAL ×3 (06:28→20:04)
[2023-05-21] MEDS: Enoxaparin 40 MG/0.4 ML Syringe SC (06:28)
[2023-05-21 08:42] VITALS: BP 93/48; PULSE 63; RESP 16; TEMP 36.8; O2SAT 94
[2023-05-21] MEDS: Cyanocobalamin 500 MCG Tablet 1000 MCG PO (08:45)
[2023-05-21] MEDS: Pantoprazole Sodium 20 MG Tablet PO ×2 (08:45→20:04)
[2023-05-21] MEDS: Finasteride 5 MG Tablet PO (08:45)
[2023-05-21] MEDS: Citalopram 10 MG Tablet PO (08:45)
[2023-05-21] MEDS: Nystatin Powder 15gm Bottle 1 APPLIC TOPICAL ×2 (08:45→20:04)
[2023-05-21] MEDS: Cilostazol 50 MG Tablet PO ×2 (08:45→20:05)
[2023-05-21] MEDS: Clopidogrel Bisulfate 75 MG Tablet PO (08:45)
[2023-05-21] MEDS: Gabapentin 100 MG Capsule PO (08:49)
[2023-05-21] MEDS: Ferrous Sulfate 325 MG Tablet PO ×2 (11:42→16:59)
[2023-05-21 13:38] VITALS: BMI 26.9
[2023-05-21 20:00] VITALS: PULSE 68; RESP 18; O2SAT 99
[2023-05-21] MEDS: Acetaminophen 500 MG Tablet 1000 MG PO (20:03)
[2023-05-21] MEDS: tiZANidine HCl 2 MG Tablet PO (20:03)
[2023-05-21] MEDS: Atorvastatin Calcium 80 MG Tablet PO (20:05)
[2023-05-21] MEDS: Gabapentin 100 MG Capsule 200 MG PO (20:09)
--- NOTE | 2023-05-21 20:15 | NURSING ---
HS medications administered at this time per pt. preference/request
[2023-05-22] MEDS: Menthol/Lanolin/Calamine/Znox 113 GM Tube 1 APPLIC TOPICAL ×3 (06:13→21:39)
[2023-05-22] MEDS: Enoxaparin 40 MG/0.4 ML Syringe SC (06:14)
--- NOTE | 2023-05-22 08:51 | NURSING ---
[employer] Membership Sales Agent Note; MDS for 05/22/2023 Complete
--- NOTE | 2023-05-22 09:27 | CASEMGMT ---
Social Work IDT met with patient and dtr for care plan meeting. Discussed patient's progress in PT/OT/ST/SN. Educated to Medicare benefit and copay coverage. Pt does have wound vac but can DC with that vac. However, pt is x2 assist currently and inquired about DC plan. Dtr and pt are hopeful for pt to return home. Dtr inquired about wound pictures and measurements. SW updated via wound notes. Dtr appreciative.SW requested dtr to provide copies of advanced directives. SW will continue to follow. Bonita Mcclelland, SURFACE WATER MANAGER SENIOR SOFTWARE ARCHITECT
[2023-05-22] MEDS: Gabapentin 100 MG Capsule PO (11:04)
[2023-05-22] MEDS: Citalopram 10 MG Tablet PO (11:04)
[2023-05-22] MEDS: Clopidogrel Bisulfate 75 MG Tablet PO (11:05)
[2023-05-22] MEDS: Cilostazol 50 MG Tablet PO ×2 (11:05→21:22)
[2023-05-22] MEDS: Cyanocobalamin 500 MCG Tablet 1000 MCG PO (11:06)
[2023-05-22] MEDS: Ferrous Sulfate 325 MG Tablet PO ×2 (11:06→16:27)
[2023-05-22] MEDS: Pantoprazole Sodium 20 MG Tablet PO ×2 (11:06→21:23)
[2023-05-22] MEDS: Finasteride 5 MG Tablet PO (11:06)
[2023-05-22] MEDS: Acetaminophen 500 MG Tablet 1000 MG PO ×2 (11:08→21:21)
[2023-05-22] MEDS: Nystatin Powder 15gm Bottle 1 APPLIC TOPICAL ×2 (11:14→21:39)
[2023-05-22 12:10] VITALS: BP 105/59; PULSE 69; RESP 18; TEMP 36.4; O2SAT 95
--- NOTE | 2023-05-22 14:20 | CASEMGMT ---
Social Work BIMS () and PHQ-2 () completed for MDS assessment. Bonita Mcclelland MSW FIELD OPERATIONS COORDINATOR
--- NOTE | 2023-05-22 15:15 | NURSING ---
Updated patient that staff member tested positive for covid. He will update his family.
[2023-05-22] MEDS: Atorvastatin Calcium 80 MG Tablet PO (21:22)
[2023-05-22] MEDS: Gabapentin 100 MG Capsule 200 MG PO (21:22)
[2023-05-22] MEDS: tiZANidine HCl 2 MG Tablet PO (21:35)
[2023-05-22 23:01] VITALS: PULSE 71; RESP 16; O2SAT 97
[2023-05-23] MEDS: Enoxaparin 40 MG/0.4 ML Syringe SC (04:28)
[2023-05-23] MEDS: Menthol/Lanolin/Calamine/Znox 113 GM Tube 1 APPLIC TOPICAL ×3 (05:48→20:16)
[2023-05-23 06:00] VITALS: RESP 16; O2SAT 98
[2023-05-23 06:05] LABS: Absolute Lymphocyte Count 0.61 X10^3/uL (0.83-4.51); Absolute Neutrophil Count 2.7 X10^3/uL (2.0-7.7); Basophil# 0.01 X10^3/uL; Basophil% 0.2 % (0-1); Eosinophil# 0.06 X10^3/uL; Eosinophils% 1.5 % (0-5); Hematocrit 35.5 % (40-54); Hemoglobin 11.2 g/dL (13.0-16.5); Lymphocyte # 0.61 X10^3/ul (0.83-4.51); Mean Corp Hgb Conc 31.5 g/dL (32-36); Mean Corpuscular Hgb 29.6 pg (27.0-32.0); Mean Corpuscular Volume 93.7 fL (80-94); Mean Platelet Vol. 10.2 fl (6.2-12.0); Monocyte# 0.72 X10^3/uL; Monocyte% 17.7 % (0-10); NRBC Flagged by Analyzer 0 % (0-5); Neutrophil # 2.65 X10^3/uL (2.7-7.7); Neutrophil % 65.4 % (47-70); Platelet Count 230 K/mm3 (150-450); RBC Distribution Width CV 14.1 % (11.6-14.6); RBC Distribution Width SD 48.3 fl (35.1-43.9); Red Blood Count 3.79 M/mm3 (4.6-6.2); White Blood Count 4.1 K/mm3 (4.4-11.0)
[2023-05-23 06:23] LABS: Anion Gap 6 (5-15); BUN 21 mg/dL (7-18); BUN/Creat Ratio 28.8 RATIO (10-20); Calcium,Total 8.3 mg/dL (8.5-10.1); Chloride 105 mmol/L (98-107); Creatinine, Serum 0.73 mg/dL (0.70-1.30); EST Glomerular Filtration Rate 109 mL/min (>60); Est Glom Filt Rate - Afr Amer 132 mL/min (>60); Estimated Creatinine Clearance 56.95 ml/min; Glucose 79 mg/dL (74-106); Sodium Level 139 mmol/L (136-145)
[2023-05-23 08:56] VITALS: BP 96/52; PULSE 71; RESP 17; TEMP 36.6; O2SAT 96
[2023-05-23] MEDS: Gabapentin 100 MG Capsule PO (08:58)
[2023-05-23] MEDS: Pantoprazole Sodium 20 MG Tablet PO ×2 (08:58→20:09)
[2023-05-23] MEDS: Cilostazol 50 MG Tablet PO ×2 (08:58→20:08)
[2023-05-23] MEDS: Cyanocobalamin 500 MCG Tablet 1000 MCG PO (08:58)
[2023-05-23] MEDS: Clopidogrel Bisulfate 75 MG Tablet PO (08:58)
[2023-05-23] MEDS: Citalopram 10 MG Tablet PO (08:58)
[2023-05-23] MEDS: Finasteride 5 MG Tablet PO (08:59)
[2023-05-23] MEDS: Nystatin Powder 15gm Bottle 1 APPLIC TOPICAL ×2 (08:59→20:15)
[2023-05-23] MEDS: Tuberculin,Purif.prot.deriv. 50 TU/ML Vial 0.1 ML ID (10:08)
[2023-05-23] MEDS: Ferrous Sulfate 325 MG Tablet PO ×2 (12:46→16:54)
[2023-05-23] MEDS: Acetaminophen 500 MG Tablet 1000 MG PO (20:07)
[2023-05-23] MEDS: Atorvastatin Calcium 80 MG Tablet PO (20:09)
[2023-05-23] MEDS: Gabapentin 100 MG Capsule 200 MG PO (20:09)
[2023-05-23] MEDS: tiZANidine HCl 2 MG Tablet PO (20:10)
[2023-05-24] MEDS: Menthol/Lanolin/Calamine/Znox 113 GM Tube 1 APPLIC TOPICAL ×3 (05:05→20:09)
[2023-05-24] MEDS: Enoxaparin 40 MG/0.4 ML Syringe SC (05:05)
[2023-05-24] MEDS: Finasteride 5 MG Tablet PO (10:07)
[2023-05-24] MEDS: Cyanocobalamin 500 MCG Tablet 1000 MCG PO (10:07)
[2023-05-24] MEDS: Ferrous Sulfate 325 MG Tablet PO ×2 (10:08→17:01)
[2023-05-24] MEDS: Cilostazol 50 MG Tablet PO ×2 (10:08→20:03)
[2023-05-24] MEDS: Citalopram 10 MG Tablet PO (10:08)
[2023-05-24] MEDS: Pantoprazole Sodium 20 MG Tablet PO ×2 (10:08→20:04)
[2023-05-24] MEDS: Clopidogrel Bisulfate 75 MG Tablet PO (10:08)
[2023-05-24] MEDS: Gabapentin 100 MG Capsule PO (11:14)
[2023-05-24] MEDS: Nystatin Powder 15gm Bottle 1 APPLIC TOPICAL ×2 (11:22→20:10)
--- NOTE | 2023-05-24 14:45 | CHAPLAIN ---
Type of Pastoral Visit ___ Initial Visit _x__ Follow-up Visit ___ On-call Visit ___ General Patient Visit ___ Spiritual Assessment ___ Family Conference ___ Bereavement ___ Rapid Response ___ Code Blue ___ Other (describe below) Pastoral Care Referral From _x__ Patient ___ Family ___ Nurse ___ Physician ___ Computer Graphic Designer ___ Software Support Engineer ___ Other (describe below) Sacrament/Intervention _x__ Active listening ___ Anointing ___ Holiness ___ Bereavement ___ Communion ___ Pooja exploration ___ ___ Life review ___ Prayer ___ Reconciliation ___ Sacrament of Sick ___ Supportive presence ___ Wedding ___ Other (describe below) Pastoral Comments patient gives updates on his therapy and slow progress as he called it; pt is interested in day and status of this test specialist and focuses on that for some of the conversation; pt states that he is tired after therapy and that a time of rest is needed; made the visit brief after seeking any other needs or concerns of which patient denies any
[2023-05-24 15:27] VITALS: BP 96/56; PULSE 74; RESP 18; TEMP 37.2; O2SAT 93
[2023-05-24] MEDS: Atorvastatin Calcium 80 MG Tablet PO (20:04)
[2023-05-24] MEDS: Gabapentin 100 MG Capsule 200 MG PO (20:04)
[2023-05-24] MEDS: tiZANidine HCl 2 MG Tablet PO ×2 (20:04→21:03)
--- NOTE | 2023-05-24 20:12 | NURSING ---
Medication was requested early by patient.
[2023-05-25] MEDS: Enoxaparin 40 MG/0.4 ML Syringe SC (05:51)
[2023-05-25] MEDS: Menthol/Lanolin/Calamine/Znox 113 GM Tube 1 APPLIC TOPICAL ×3 (05:52→21:27)
[2023-05-25] MEDS: Clopidogrel Bisulfate 75 MG Tablet PO (11:02)
[2023-05-25] MEDS: Finasteride 5 MG Tablet PO (11:02)
[2023-05-25] MEDS: Ferrous Sulfate 325 MG Tablet PO ×2 (11:02→17:55)
[2023-05-25] MEDS: Gabapentin 100 MG Capsule PO (11:02)
[2023-05-25] MEDS: Cilostazol 50 MG Tablet PO ×2 (11:02→21:26)
[2023-05-25] MEDS: Pantoprazole Sodium 20 MG Tablet PO ×2 (11:02→21:26)
[2023-05-25] MEDS: Cyanocobalamin 500 MCG Tablet 1000 MCG PO (11:02)
[2023-05-25] MEDS: Nystatin Powder 15gm Bottle 1 APPLIC TOPICAL ×2 (11:03→21:27)
[2023-05-25] MEDS: Citalopram 10 MG Tablet PO (11:03)
[2023-05-25 14:27] VITALS: BP 91/46; PULSE 65; RESP 18; TEMP 36.6; O2SAT 98
[2023-05-25] MEDS: tiZANidine HCl 2 MG Tablet PO (21:26)
[2023-05-25] MEDS: Atorvastatin Calcium 80 MG Tablet PO (21:26)
[2023-05-25] MEDS: Gabapentin 100 MG Capsule 200 MG PO (21:30)
[2023-05-26] MEDS: Menthol/Lanolin/Calamine/Znox 113 GM Tube 1 APPLIC TOPICAL ×3 (05:59→20:09)
[2023-05-26] MEDS: Enoxaparin 40 MG/0.4 ML Syringe SC (05:59)
[2023-05-26] MEDS: Gabapentin 100 MG Capsule PO (07:50)
[2023-05-26] MEDS: Pantoprazole Sodium 20 MG Tablet PO ×2 (07:51→20:11)
[2023-05-26] MEDS: Finasteride 5 MG Tablet PO (07:51)
[2023-05-26] MEDS: Citalopram 10 MG Tablet PO (07:52)
[2023-05-26] MEDS: Cyanocobalamin 500 MCG Tablet 1000 MCG PO (07:52)
[2023-05-26] MEDS: Cilostazol 50 MG Tablet PO ×2 (07:52→20:11)
[2023-05-26] MEDS: Clopidogrel Bisulfate 75 MG Tablet PO (07:52)
[2023-05-26] MEDS: Nystatin Powder 15gm Bottle 1 APPLIC TOPICAL ×2 (07:52→20:10)
[2023-05-26] MEDS: Ferrous Sulfate 325 MG Tablet PO ×2 (07:53→16:56)
[2023-05-26 14:26] VITALS: BP 95/48; PULSE 58; RESP 18; TEMP 36.3; O2SAT 93
[2023-05-26] MEDS: Gabapentin 100 MG Capsule 200 MG PO (20:09)
[2023-05-26] MEDS: Atorvastatin Calcium 80 MG Tablet PO (20:11)
[2023-05-26] MEDS: tiZANidine HCl 2 MG Tablet PO (20:11)
[2023-05-26 20:14] VITALS: PULSE 55; RESP 16; O2SAT 94
[2023-05-27] MEDS: Enoxaparin 40 MG/0.4 ML Syringe SC (04:31)
[2023-05-27] MEDS: Menthol/Lanolin/Calamine/Znox 113 GM Tube 1 APPLIC TOPICAL ×3 (04:32→20:33)
[2023-05-27] MEDS: Citalopram 10 MG Tablet PO (09:31)
[2023-05-27] MEDS: Cilostazol 50 MG Tablet PO ×2 (09:32→20:32)
[2023-05-27] MEDS: Finasteride 5 MG Tablet PO (09:32)
[2023-05-27] MEDS: Clopidogrel Bisulfate 75 MG Tablet PO (09:32)
[2023-05-27] MEDS: Pantoprazole Sodium 20 MG Tablet PO ×2 (09:32→20:32)
[2023-05-27] MEDS: Nystatin Powder 15gm Bottle 1 APPLIC TOPICAL ×2 (09:32→20:33)
[2023-05-27] MEDS: Cyanocobalamin 500 MCG Tablet 1000 MCG PO (09:32)
[2023-05-27] MEDS: Gabapentin 100 MG Capsule PO (10:02)
[2023-05-27] MEDS: Ferrous Sulfate 325 MG Tablet PO ×2 (12:22→16:39)
[2023-05-27 15:22] VITALS: BP 137/53; PULSE 69; RESP 20; TEMP 36.5; O2SAT 95
--- NOTE | 2023-05-27 15:53 | WOUNDNOTE ---
wound photo: left Achilles area
--- NOTE | 2023-05-27 15:54 | WOUNDNOTE ---
wound photo: left Achilles area
[2023-05-27] MEDS: Atorvastatin Calcium 80 MG Tablet PO (20:32)
[2023-05-27] MEDS: Gabapentin 100 MG Capsule 200 MG PO (20:32)
[2023-05-27] MEDS: tiZANidine HCl 2 MG Tablet PO (20:33)
[2023-05-27] MEDS: Acetaminophen 500 MG Tablet 1000 MG PO (23:06)
[2023-05-28] MEDS: Enoxaparin 40 MG/0.4 ML Syringe SC (06:12)
[2023-05-28] MEDS: Menthol/Lanolin/Calamine/Znox 113 GM Tube 1 APPLIC TOPICAL ×3 (06:13→21:23)
[2023-05-28] MEDS: Acetaminophen 500 MG Tablet 1000 MG PO ×2 (06:17→21:27)
[2023-05-28] MEDS: Clopidogrel Bisulfate 75 MG Tablet PO (08:10)
[2023-05-28] MEDS: Citalopram 10 MG Tablet PO (08:10)
[2023-05-28] MEDS: Cilostazol 50 MG Tablet PO ×2 (08:10→21:22)
[2023-05-28] MEDS: Nystatin Powder 15gm Bottle 1 APPLIC TOPICAL ×2 (08:10→21:22)
[2023-05-28] MEDS: Pantoprazole Sodium 20 MG Tablet PO ×2 (08:10→21:21)
[2023-05-28] MEDS: Cyanocobalamin 500 MCG Tablet 1000 MCG PO (08:10)
[2023-05-28] MEDS: Finasteride 5 MG Tablet PO (08:10)
[2023-05-28] MEDS: Gabapentin 100 MG Capsule PO (08:13)
--- NOTE | 2023-05-28 09:39 | MDS.RN ---
Information for the mds was obtained from review of the clinical record, interview of resident, staff, and direct observation of resident's care.
[2023-05-28] MEDS: Ferrous Sulfate 325 MG Tablet PO ×2 (11:55→17:29)
[2023-05-28 13:00] VITALS: BMI 26.7
[2023-05-28 16:00] VITALS: BP 110/58; PULSE 55; RESP 14; TEMP 36.6; O2SAT 98
[2023-05-28] MEDS: Gabapentin 100 MG Capsule 200 MG PO (21:21)
[2023-05-28] MEDS: Atorvastatin Calcium 80 MG Tablet PO (21:22)
[2023-05-28] MEDS: tiZANidine HCl 2 MG Tablet PO (21:26)
[2023-05-29] MEDS: Enoxaparin 40 MG/0.4 ML Syringe SC (05:08)
[2023-05-29] MEDS: Menthol/Lanolin/Calamine/Znox 113 GM Tube 1 APPLIC TOPICAL ×3 (05:10→20:19)
[2023-05-29] MEDS: Gabapentin 100 MG Capsule PO (10:29)
[2023-05-29] MEDS: Cyanocobalamin 500 MCG Tablet 1000 MCG PO (10:30)
[2023-05-29] MEDS: Cilostazol 50 MG Tablet PO ×2 (10:30→20:13)
[2023-05-29] MEDS: tiZANidine HCl 2 MG Tablet PO ×2 (10:30→20:12)
[2023-05-29] MEDS: Citalopram 10 MG Tablet PO (10:31)
[2023-05-29] MEDS: Clopidogrel Bisulfate 75 MG Tablet PO (10:31)
[2023-05-29] MEDS: Finasteride 5 MG Tablet PO (10:31)
[2023-05-29] MEDS: Pantoprazole Sodium 20 MG Tablet PO ×2 (10:31→20:12)
[2023-05-29] MEDS: Nystatin Powder 15gm Bottle 1 APPLIC TOPICAL ×2 (10:32→20:19)
[2023-05-29] MEDS: Ferrous Sulfate 325 MG Tablet PO ×2 (12:16→16:30)
[2023-05-29 14:05] VITALS: BP 107/50; PULSE 70; RESP 16; TEMP 36.6; O2SAT 97
[2023-05-29] MEDS: Gabapentin 100 MG Capsule 200 MG PO (20:11)
[2023-05-29] MEDS: Acetaminophen 500 MG Tablet 1000 MG PO (20:11)
[2023-05-29] MEDS: Atorvastatin Calcium 80 MG Tablet PO (20:13)
[2023-05-29 20:22] VITALS: PULSE 53; RESP 16; O2SAT 95
[2023-05-30] MEDS: Enoxaparin 40 MG/0.4 ML Syringe SC (05:31)
[2023-05-30] MEDS: Menthol/Lanolin/Calamine/Znox 113 GM Tube 1 APPLIC TOPICAL ×3 (05:34→20:12)
[2023-05-30 05:46] LABS: Absolute Lymphocyte Count 0.69 X10^3/uL (0.83-4.51); Absolute Neutrophil Count 3.4 X10^3/uL (2.0-7.7); Eosinophil# 0.08 X10^3/uL; Eosinophils% 1.7 % (0-5); Hemoglobin 10.5 g/dL (13.0-16.5); Lymphocyte # 0.69 X10^3/ul (0.83-4.51); Lymphocyte % 14.4 % (19-41); Mean Corp Hgb Conc 32.8 g/dL (32-36); Mean Corpuscular Hgb 30.7 pg (27.0-32.0); Mean Corpuscular Volume 93.6 fL (80-94); Mean Platelet Vol. 10.5 fl (6.2-12.0); Monocyte# 0.58 X10^3/uL; Monocyte% 12.1 % (0-10); NRBC Flagged by Analyzer 0 % (0-5); Neutrophil # 3.44 X10^3/uL (2.7-7.7); Neutrophil % 71.6 % (47-70); Platelet Count 172 K/mm3 (150-450); RBC Distribution Width SD 47.7 fl (35.1-43.9); Red Blood Count 3.42 M/mm3 (4.6-6.2); White Blood Count 4.8 K/mm3 (4.4-11.0)
[2023-05-30 06:08] VITALS: PULSE 44; RESP 14; O2SAT 95
[2023-05-30 06:35] LABS: Anion Gap 3 (5-15); BUN 19 mg/dL (7-18); BUN/Creat Ratio 25.4 RATIO (10-20); Calcium,Total 8.3 mg/dL (8.5-10.1); Chloride 105 mmol/L (98-107); Creatinine, Serum 0.75 mg/dL (0.70-1.30); EST Glomerular Filtration Rate 106 mL/min (>60); Est Glom Filt Rate - Afr Amer 129 mL/min (>60); Estimated Creatinine Clearance 56.95 ml/min; Glucose 79 mg/dL (74-106); Potassium 3.5 mmol/L (3.5-5.1); Sodium Level 138 mmol/L (136-145)
[2023-05-30] MEDS: Acetaminophen 500 MG Tablet 1000 MG PO ×2 (10:40→20:09)
[2023-05-30] MEDS: Citalopram 10 MG Tablet PO (10:41)
[2023-05-30] MEDS: Finasteride 5 MG Tablet PO (10:42)
[2023-05-30] MEDS: Nystatin Powder 15gm Bottle 1 APPLIC TOPICAL ×2 (10:42→20:12)
[2023-05-30] MEDS: Cyanocobalamin 500 MCG Tablet 1000 MCG PO (10:42)
[2023-05-30] MEDS: Pantoprazole Sodium 20 MG Tablet PO ×2 (10:42→20:08)
[2023-05-30] MEDS: Cilostazol 50 MG Tablet PO ×2 (10:42→20:08)
[2023-05-30] MEDS: Clopidogrel Bisulfate 75 MG Tablet PO (10:42)
[2023-05-30] MEDS: Gabapentin 100 MG Capsule PO (10:49)
--- NOTE | 2023-05-30 11:34 | RAD_ITS ---
STUDY: X-RAY - ABDOMEN/PELVIS REASON FOR EXAM: Male, 82 years old. Diarrhea TECHNIQUE: Single AP view of the abdomen / pelvis. COMPARISON: None. FINDINGS: Elevation of the right hemidiaphragm. The lung bases are clear. There is a moderate amount of colonic fecal material. The visualized liver, spleen and kidneys are grossly normal in size and morphology. Normal soft tissue structures. There are diffuse degenerative changes of the visualized lumbar spine. Osteoarthritis of both hip joints. RAD/Abdomen Single View IMPRESSION: Moderate amount of fecal material is seen in the colon. Electronically Signed: Irving Crook MD at 12:04 [facility] ,
[2023-05-30] MEDS: Ferrous Sulfate 325 MG Tablet PO ×2 (13:31→16:15)
[2023-05-30 14:37] VITALS: BP 111/63; PULSE 65; RESP 16; TEMP 36.3; O2SAT 96
[2023-05-30] MEDS: Atorvastatin Calcium 80 MG Tablet PO (20:08)
[2023-05-30] MEDS: tiZANidine HCl 2 MG Tablet PO (20:08)
[2023-05-30] MEDS: Gabapentin 100 MG Capsule 200 MG PO (20:09)
[2023-05-31] MEDS: Acetaminophen 500 MG Tablet 1000 MG PO ×2 (05:36→20:57)
[2023-05-31] MEDS: Enoxaparin 40 MG/0.4 ML Syringe SC (05:37)
[2023-05-31] MEDS: Menthol/Lanolin/Calamine/Znox 113 GM Tube 1 APPLIC TOPICAL ×3 (05:40→20:59)
[2023-05-31 06:05] VITALS: PULSE 50; RESP 14; O2SAT 94
[2023-05-31] MEDS: Finasteride 5 MG Tablet PO (10:32)
[2023-05-31] MEDS: Cyanocobalamin 500 MCG Tablet 1000 MCG PO (10:32)
[2023-05-31] MEDS: Clopidogrel Bisulfate 75 MG Tablet PO (10:32)
[2023-05-31] MEDS: Cilostazol 50 MG Tablet PO ×2 (10:32→20:59)
[2023-05-31] MEDS: Gabapentin 100 MG Capsule PO (10:32)
[2023-05-31] MEDS: Pantoprazole Sodium 20 MG Tablet PO ×2 (10:32→20:58)
[2023-05-31] MEDS: Nystatin Powder 15gm Bottle 1 APPLIC TOPICAL ×2 (10:32→20:59)
[2023-05-31] MEDS: Citalopram 10 MG Tablet PO (10:32)
[2023-05-31] MEDS: Ferrous Sulfate 325 MG Tablet PO ×2 (12:31→16:41)
[2023-05-31 15:48] VITALS: BP 124/67; PULSE 62; RESP 19; TEMP 36.3; O2SAT 97
[2023-05-31] MEDS: Atorvastatin Calcium 80 MG Tablet PO (20:58)
[2023-05-31] MEDS: tiZANidine HCl 2 MG Tablet PO (20:58)
[2023-05-31] MEDS: Gabapentin 100 MG Capsule 200 MG PO (20:58)
[2023-06-01] MEDS: Enoxaparin 40 MG/0.4 ML Syringe SC (07:29)
[2023-06-01] MEDS: Menthol/Lanolin/Calamine/Znox 113 GM Tube 1 APPLIC TOPICAL ×2 (07:31→21:43)
[2023-06-01 10:00] VITALS: RESP 16
[2023-06-01 10:37] VITALS: BP 84/47; PULSE 64; RESP 17; TEMP 36.6; O2SAT 94
[2023-06-01] MEDS: Citalopram 10 MG Tablet PO (10:41)
[2023-06-01] MEDS: Nystatin Powder 15gm Bottle 1 APPLIC TOPICAL ×2 (10:42→21:44)
[2023-06-01] MEDS: Clopidogrel Bisulfate 75 MG Tablet PO (10:42)
[2023-06-01] MEDS: Cilostazol 50 MG Tablet PO ×2 (10:42→21:45)
[2023-06-01] MEDS: Finasteride 5 MG Tablet PO (10:43)
[2023-06-01] MEDS: Cyanocobalamin 500 MCG Tablet 1000 MCG PO (10:43)
[2023-06-01] MEDS: Pantoprazole Sodium 20 MG Tablet PO ×2 (10:43→21:45)
[2023-06-01] MEDS: Gabapentin 100 MG Capsule PO (10:45)
[2023-06-01 12:06] VITALS: BP 95/52; PULSE 100
[2023-06-01] MEDS: Ferrous Sulfate 325 MG Tablet PO ×2 (13:10→18:31)
[2023-06-01] MEDS: Loperamide 2 MG Capsule PO ×2 (13:12→18:32)
[2023-06-01] MEDS: Gabapentin 100 MG Capsule 200 MG PO (21:42)
[2023-06-01] MEDS: Atorvastatin Calcium 80 MG Tablet PO (21:44)
[2023-06-01] MEDS: tiZANidine HCl 2 MG Tablet PO (21:46)
[2023-06-01] MEDS: Acetaminophen 500 MG Tablet 1000 MG PO (21:48)
[2023-06-02] MEDS: Menthol/Lanolin/Calamine/Znox 113 GM Tube 1 APPLIC TOPICAL ×3 (05:13→21:13)
[2023-06-02] MEDS: Enoxaparin 40 MG/0.4 ML Syringe SC (05:14)
[2023-06-02 05:21] VITALS: PULSE 48; RESP 14; O2SAT 93
[2023-06-02] MEDS: Cyanocobalamin 500 MCG Tablet 1000 MCG PO (09:34)
[2023-06-02] MEDS: Pantoprazole Sodium 20 MG Tablet PO ×2 (09:35→21:13)
[2023-06-02] MEDS: Cilostazol 50 MG Tablet PO ×2 (09:35→21:14)
[2023-06-02] MEDS: Finasteride 5 MG Tablet PO (09:36)
[2023-06-02] MEDS: Citalopram 10 MG Tablet PO (09:37)
[2023-06-02] MEDS: Clopidogrel Bisulfate 75 MG Tablet PO (09:37)
[2023-06-02] MEDS: Nystatin Powder 15gm Bottle 1 APPLIC TOPICAL ×2 (09:37→21:12)
[2023-06-02] MEDS: Gabapentin 100 MG Capsule PO (09:46)
[2023-06-02 10:52] VITALS: BP 110/68; PULSE 61; RESP 18; O2SAT 98
[2023-06-02] MEDS: Ferrous Sulfate 325 MG Tablet PO ×2 (11:34→17:04)
[2023-06-02] MEDS: Acetaminophen 500 MG Tablet 1000 MG PO ×2 (11:37→21:12)
[2023-06-02 16:00] VITALS: TEMP 36.2
[2023-06-02] MEDS: Gabapentin 100 MG Capsule 200 MG PO (21:12)
[2023-06-02] MEDS: tiZANidine HCl 2 MG Tablet PO (21:14)
[2023-06-02] MEDS: Atorvastatin Calcium 80 MG Tablet PO (21:14)
[2023-06-03] MEDS: Enoxaparin 40 MG/0.4 ML Syringe SC (05:09)
[2023-06-03] MEDS: Menthol/Lanolin/Calamine/Znox 113 GM Tube 1 APPLIC TOPICAL ×3 (05:10→20:34)
[2023-06-03] MEDS: Gabapentin 100 MG Capsule PO (09:50)
[2023-06-03] MEDS: Finasteride 5 MG Tablet PO (09:52)
[2023-06-03] MEDS: Clopidogrel Bisulfate 75 MG Tablet PO (09:52)
[2023-06-03] MEDS: Cyanocobalamin 500 MCG Tablet 1000 MCG PO (09:52)
[2023-06-03] MEDS: Cilostazol 50 MG Tablet PO ×2 (09:52→20:23)
[2023-06-03] MEDS: Pantoprazole Sodium 20 MG Tablet PO ×2 (09:52→20:24)
[2023-06-03] MEDS: Citalopram 10 MG Tablet PO (09:52)
[2023-06-03] MEDS: Nystatin Powder 15gm Bottle 1 APPLIC TOPICAL ×2 (09:56→20:33)
[2023-06-03] MEDS: Ferrous Sulfate 325 MG Tablet PO ×2 (12:23→17:29)
[2023-06-03 13:14] VITALS: BP 112/71; PULSE 73; RESP 16; TEMP 36.3; O2SAT 94
--- NOTE | 2023-06-03 15:36 | WOUNDNOTE ---
wound photo: left Achilles area
[2023-06-03 20:08] VITALS: PULSE 64; RESP 16; O2SAT 97
[2023-06-03] MEDS: Gabapentin 100 MG Capsule 200 MG PO (20:22)
[2023-06-03] MEDS: Acetaminophen 500 MG Tablet 1000 MG PO (20:22)
[2023-06-03] MEDS: Atorvastatin Calcium 80 MG Tablet PO (20:24)
[2023-06-03] MEDS: tiZANidine HCl 2 MG Tablet PO (21:00)
[2023-06-04] MEDS: Enoxaparin 40 MG/0.4 ML Syringe SC (05:55)
[2023-06-04] MEDS: Menthol/Lanolin/Calamine/Znox 113 GM Tube 1 APPLIC TOPICAL ×3 (05:56→20:24)
[2023-06-04] MEDS: Citalopram 10 MG Tablet PO (09:51)
[2023-06-04] MEDS: Finasteride 5 MG Tablet PO (09:51)
[2023-06-04] MEDS: Clopidogrel Bisulfate 75 MG Tablet PO (09:51)
[2023-06-04] MEDS: Gabapentin 100 MG Capsule PO (09:51)
[2023-06-04] MEDS: Nystatin Powder 15gm Bottle 1 APPLIC TOPICAL ×2 (09:51→20:24)
[2023-06-04] MEDS: Pantoprazole Sodium 20 MG Tablet PO ×2 (09:51→20:18)
[2023-06-04] MEDS: Cyanocobalamin 500 MCG Tablet 1000 MCG PO (09:51)
[2023-06-04] MEDS: Cilostazol 50 MG Tablet PO ×2 (09:51→20:18)
[2023-06-04] MEDS: Ferrous Sulfate 325 MG Tablet PO ×2 (12:20→17:17)
[2023-06-04 13:00] VITALS: BMI 26.4
[2023-06-04 15:04] VITALS: BP 92/54; PULSE 62; RESP 18; TEMP 36.2; O2SAT 96
[2023-06-04 20:00] VITALS: RESP 16; O2SAT 96
[2023-06-04] MEDS: Acetaminophen 500 MG Tablet 1000 MG PO (20:14)
[2023-06-04] MEDS: Gabapentin 100 MG Capsule 200 MG PO (20:18)
[2023-06-04] MEDS: tiZANidine HCl 2 MG Tablet PO (20:19)
[2023-06-04] MEDS: Atorvastatin Calcium 80 MG Tablet PO (20:19)
[2023-06-05] MEDS: Enoxaparin 40 MG/0.4 ML Syringe SC (05:34)
[2023-06-05] MEDS: Menthol/Lanolin/Calamine/Znox 113 GM Tube 1 APPLIC TOPICAL ×3 (05:35→20:09)
[2023-06-05] MEDS: Gabapentin 100 MG Capsule PO (09:50)
[2023-06-05] MEDS: Citalopram 10 MG Tablet PO (09:50)
[2023-06-05] MEDS: Clopidogrel Bisulfate 75 MG Tablet PO (09:50)
[2023-06-05] MEDS: Cyanocobalamin 500 MCG Tablet 1000 MCG PO (09:50)
[2023-06-05] MEDS: Nystatin Powder 15gm Bottle 1 APPLIC TOPICAL ×2 (09:50→20:10)
[2023-06-05] MEDS: Pantoprazole Sodium 20 MG Tablet PO ×2 (09:50→20:09)
[2023-06-05] MEDS: Finasteride 5 MG Tablet PO (09:50)
[2023-06-05] MEDS: Cilostazol 50 MG Tablet PO ×2 (09:50→20:08)
[2023-06-05] MEDS: Ferrous Sulfate 325 MG Tablet PO ×2 (12:08→17:08)
[2023-06-05 15:48] VITALS: BP 113/57; PULSE 64; RESP 16; TEMP 36.3; O2SAT 98
[2023-06-05] MEDS: Loperamide 2 MG Capsule PO (16:18)
[2023-06-05 19:51] VITALS: PULSE 64; RESP 18; O2SAT 98
[2023-06-05] MEDS: Gabapentin 100 MG Capsule 200 MG PO (20:07)
[2023-06-05] MEDS: Acetaminophen 500 MG Tablet 1000 MG PO (20:07)
[2023-06-05] MEDS: tiZANidine HCl 2 MG Tablet PO (20:08)
[2023-06-05] MEDS: Atorvastatin Calcium 80 MG Tablet PO (20:09)
[2023-06-06 05:29] LABS: Absolute Lymphocyte Count 0.73 X10^3/uL (0.83-4.51); Absolute Neutrophil Count 2.8 X10^3/uL (2.0-7.7); Basophil# 0.01 X10^3/uL; Basophil% 0.2 % (0-1); Eosinophil# 0.08 X10^3/uL; Eosinophils% 1.9 % (0-5); Hematocrit 32.3 % (40-54); Hemoglobin 10.5 g/dL (13.0-16.5); Lymphocyte # 0.73 X10^3/ul (0.83-4.51); Lymphocyte % 17.2 % (19-41); Mean Corp Hgb Conc 32.5 g/dL (32-36); Mean Corpuscular Hgb 30.9 pg (27.0-32.0); Mean Platelet Vol. 9.9 fl (6.2-12.0); Monocyte% 14.2 % (0-10); NRBC Flagged by Analyzer 0 % (0-5); Platelet Count 227 K/mm3 (150-450); RBC Distribution Width SD 48.8 fl (35.1-43.9); White Blood Count 4.2 K/mm3 (4.4-11.0)
[2023-06-06] MEDS: Enoxaparin 40 MG/0.4 ML Syringe SC (05:34)
[2023-06-06] MEDS: Menthol/Lanolin/Calamine/Znox 113 GM Tube 1 APPLIC TOPICAL ×3 (05:36→20:46)
[2023-06-06 05:51] LABS: Anion Gap 2 (5-15); BUN 16 mg/dL (7-18); BUN/Creat Ratio 22.4 RATIO (10-20); Calcium,Total 7.8 mg/dL (8.5-10.1); Chloride 108 mmol/L (98-107); Creatinine, Serum 0.71 mg/dL (0.70-1.30); EST Glomerular Filtration Rate 112 mL/min (>60); Est Glom Filt Rate - Afr Amer 135 mL/min (>60); Estimated Creatinine Clearance 56.95 ml/min; Glucose 81 mg/dL (74-106); Potassium 3.8 mmol/L (3.5-5.1); Sodium Level 141 mmol/L (136-145)
[2023-06-06] MEDS: Gabapentin 100 MG Capsule PO (08:38)
[2023-06-06] MEDS: Cilostazol 50 MG Tablet PO ×2 (08:39→20:46)
[2023-06-06] MEDS: Clopidogrel Bisulfate 75 MG Tablet PO (08:39)
[2023-06-06] MEDS: Cyanocobalamin 500 MCG Tablet 1000 MCG PO (08:39)
[2023-06-06] MEDS: Pantoprazole Sodium 20 MG Tablet PO ×2 (08:39→20:47)
[2023-06-06] MEDS: Finasteride 5 MG Tablet PO (08:39)
[2023-06-06] MEDS: Citalopram 10 MG Tablet PO (08:40)
[2023-06-06] MEDS: Nystatin Powder 15gm Bottle 1 APPLIC TOPICAL ×2 (12:23→20:46)
[2023-06-06] MEDS: Ferrous Sulfate 325 MG Tablet PO ×2 (12:23→18:18)
[2023-06-06 15:10] VITALS: BP 118/59; PULSE 68; RESP 18; TEMP 36.2; O2SAT 98
[2023-06-06] MEDS: Gabapentin 100 MG Capsule 200 MG PO (20:43)
[2023-06-06] MEDS: Acetaminophen 500 MG Tablet 1000 MG PO (20:43)
[2023-06-06] MEDS: tiZANidine HCl 2 MG Tablet PO (20:45)
[2023-06-06] MEDS: Atorvastatin Calcium 80 MG Tablet PO (20:45)
[2023-06-07] MEDS: Menthol/Lanolin/Calamine/Znox 113 GM Tube 1 APPLIC TOPICAL ×3 (06:18→20:34)
[2023-06-07] MEDS: Enoxaparin 40 MG/0.4 ML Syringe SC (06:19)
[2023-06-07] MEDS: Citalopram 10 MG Tablet PO (11:04)
[2023-06-07] MEDS: Gabapentin 100 MG Capsule PO (11:05)
[2023-06-07] MEDS: Cilostazol 50 MG Tablet PO ×2 (11:05→20:33)
[2023-06-07] MEDS: Clopidogrel Bisulfate 75 MG Tablet PO (11:05)
[2023-06-07] MEDS: Pantoprazole Sodium 20 MG Tablet PO ×2 (11:06→20:33)
[2023-06-07] MEDS: Finasteride 5 MG Tablet PO (11:06)
[2023-06-07] MEDS: Cyanocobalamin 500 MCG Tablet 1000 MCG PO (11:06)
[2023-06-07] MEDS: Ferrous Sulfate 325 MG Tablet PO ×2 (11:07→18:00)
[2023-06-07] MEDS: Nystatin Powder 15gm Bottle 1 APPLIC TOPICAL ×2 (11:09→20:33)
[2023-06-07 16:00] VITALS: BP 102/45; PULSE 59; RESP 16; TEMP 35.6; O2SAT 96
[2023-06-07] MEDS: tiZANidine HCl 2 MG Tablet PO (20:32)
[2023-06-07] MEDS: Acetaminophen 500 MG Tablet 1000 MG PO (20:32)
[2023-06-07] MEDS: Atorvastatin Calcium 80 MG Tablet PO (20:33)
[2023-06-07] MEDS: Gabapentin 100 MG Capsule 200 MG PO (20:33)
[2023-06-08] MEDS: Menthol/Lanolin/Calamine/Znox 113 GM Tube 1 APPLIC TOPICAL ×3 (05:33→20:09)
[2023-06-08] MEDS: Enoxaparin 40 MG/0.4 ML Syringe SC (05:33)
[2023-06-08] MEDS: Finasteride 5 MG Tablet PO (10:32)
[2023-06-08] MEDS: Nystatin Powder 15gm Bottle 1 APPLIC TOPICAL ×2 (10:33→20:10)
[2023-06-08] MEDS: Citalopram 10 MG Tablet PO (10:33)
[2023-06-08] MEDS: Pantoprazole Sodium 20 MG Tablet PO ×2 (10:34→20:05)
[2023-06-08] MEDS: Clopidogrel Bisulfate 75 MG Tablet PO (10:34)
[2023-06-08] MEDS: Cilostazol 50 MG Tablet PO ×2 (10:34→20:05)
[2023-06-08] MEDS: Cyanocobalamin 500 MCG Tablet 1000 MCG PO (10:34)
[2023-06-08] MEDS: Gabapentin 100 MG Capsule PO (10:38)
[2023-06-08] MEDS: Ferrous Sulfate 325 MG Tablet PO ×2 (12:21→17:07)
[2023-06-08 14:00] VITALS: BP 97/55; PULSE 60; RESP 17; TEMP 36.1; O2SAT 99
[2023-06-08 14:30] VITALS: BP 106/60
[2023-06-08 19:46] VITALS: PULSE 83; RESP 16; O2SAT 98
[2023-06-08] MEDS: tiZANidine HCl 2 MG Tablet PO (20:04)
[2023-06-08] MEDS: Atorvastatin Calcium 80 MG Tablet PO (20:05)
[2023-06-08] MEDS: Acetaminophen 500 MG Tablet 1000 MG PO (20:06)
[2023-06-08] MEDS: Gabapentin 100 MG Capsule 200 MG PO (20:06)
[2023-06-09] MEDS: Acetaminophen 500 MG Tablet 1000 MG PO ×2 (06:36→20:01)
[2023-06-09] MEDS: Enoxaparin 40 MG/0.4 ML Syringe SC (06:38)
[2023-06-09] MEDS: Menthol/Lanolin/Calamine/Znox 113 GM Tube 1 APPLIC TOPICAL ×3 (06:41→20:00)
[2023-06-09] MEDS: Gabapentin 100 MG Capsule PO (09:18)
[2023-06-09] MEDS: Pantoprazole Sodium 20 MG Tablet PO ×2 (09:19→20:02)
[2023-06-09] MEDS: Finasteride 5 MG Tablet PO (09:19)
[2023-06-09] MEDS: Citalopram 10 MG Tablet PO (09:19)
[2023-06-09] MEDS: Cilostazol 50 MG Tablet PO ×2 (09:19→20:02)
[2023-06-09] MEDS: Clopidogrel Bisulfate 75 MG Tablet PO (09:19)
[2023-06-09] MEDS: Cyanocobalamin 500 MCG Tablet 1000 MCG PO (09:19)
[2023-06-09] MEDS: Nystatin Powder 15gm Bottle 1 APPLIC TOPICAL ×2 (09:26→20:06)
[2023-06-09] MEDS: Ferrous Sulfate 325 MG Tablet PO ×2 (11:21→17:28)
[2023-06-09] MEDS: Loperamide 2 MG Capsule PO (14:51)
[2023-06-09 15:12] VITALS: BP 102/61; PULSE 64; RESP 20; TEMP 36.4; O2SAT 98
[2023-06-09] MEDS: tiZANidine HCl 2 MG Tablet PO (20:01)
[2023-06-09] MEDS: Gabapentin 100 MG Capsule 200 MG PO (20:03)
[2023-06-09] MEDS: Atorvastatin Calcium 80 MG Tablet PO (20:03)
[2023-06-10] MEDS: Enoxaparin 40 MG/0.4 ML Syringe SC (05:16)
[2023-06-10] MEDS: Menthol/Lanolin/Calamine/Znox 113 GM Tube 1 APPLIC TOPICAL ×3 (05:18→20:01)
[2023-06-10] MEDS: Citalopram 10 MG Tablet PO (09:07)
[2023-06-10] MEDS: Finasteride 5 MG Tablet PO (09:07)
[2023-06-10] MEDS: Clopidogrel Bisulfate 75 MG Tablet PO (09:07)
[2023-06-10] MEDS: Pantoprazole Sodium 20 MG Tablet PO ×2 (09:07→20:02)
[2023-06-10] MEDS: Cilostazol 50 MG Tablet PO ×2 (09:07→20:03)
[2023-06-10] MEDS: Cyanocobalamin 500 MCG Tablet 1000 MCG PO (09:08)
[2023-06-10] MEDS: Gabapentin 100 MG Capsule PO (09:08)
[2023-06-10] MEDS: Nystatin Powder 15gm Bottle 1 APPLIC TOPICAL ×2 (09:11→20:01)
[2023-06-10 10:00] VITALS: RESP 16
--- NOTE | 2023-06-10 11:21 | WOUNDNOTE ---
wound photo: left Achilles area
[2023-06-10] MEDS: Ferrous Sulfate 325 MG Tablet PO ×2 (12:19→17:30)
[2023-06-10 15:48] VITALS: BP 147/64; PULSE 58; RESP 16; TEMP 36.6; O2SAT 96
--- NOTE | 2023-06-10 19:10 | PN.TCU_ITS ---
Subjective Subjective Patient seen, examined for regulatory visit. He is sitting in chair, watching television, waiting for supper. He has no new complaints. He is planning on, looking forward to discharge this weekend. Objective Data Objective Data Vital Signs: Vital Signs Temp Pulse Resp BP Pulse Ox O2 Del Method 97.8 F 58 L 16 147/64 H 96 Room Air 06/10/23 15:48 06/10/23 15:48 06/10/23 15:48 06/10/23 15:48 06/10/23 15:48 06/10/23 15:48 Oxygen Delivery Method Room Air Weight: 81.238 kg Body Mass Index (BMI) 26.4 Intake & Output: Intake and Output for Last 24 Hours 06/08/23 06/09/23 06/10/23 23:59 23:59 23:59 Intake Total 720 / 720 840 / 840 480 / 480 Balance 720 / 720 840 / 840 480 / 480 Lab / Micro Data Attestation: I reviewed the patient's lab results. 06/06/23 05:22 06/06/23 05:22 Micro: Microbiology 06/03/23 04:48 Nasal Secretion SARS-CoV-2 Antigen (Rapid) - Final 05/30/23 05:28 Nasal Secretion SARS-CoV-2 Antigen (Rapid) - Final 05/27/23 04:30 Nasal Secretion SARS-CoV-2 Antigen (Rapid) - Final 05/23/23 04:27 Nasal Secretion SARS-CoV-2 Antigen (Rapid) - Final 05/20/23 05:25 Nasal Secretion SARS-CoV-2 Antigen (Rapid) - Final Physical Exam Const alert General Appearance: cooperative HEENT normocephalic Eyes PERRL and EOMs intact bilaterally Neck supple, no JVD and no carotid bruits Resp normal respiratory effort, normal air movement and clear to auscultation bilaterally Cardio regular rate and regular rhythm GI normal to inspection, nondistended, normoactive bowel sounds, non-tender and non-distended Extremity normal capillary refill Extremity Narrative: Wound VAC left posterior distal lower extremity. General Extremity: Negative for edema Skin no rashes or lesions noted Skin Narrative: Left posterior lower extremity wound VAC. General Skin Exam: no breakdown Wound Narrative: Left posterior distal lower extremity wound VAC. Psych affect normal Appearance: appropriate Assessment & Plan Assessment/Plan (1) Debility: (2) Right hemiparesis: (3) Dysarthria: (4) Hypertension: (5) Atrial fibrillation: (6) BPH (benign prostatic hyperplasia): (7) Neuropathic pain: (8) Cervical spinal stenosis: (9) Muscle spasm: (10) Hyperlipidemia: QUALIFIERS: Hyperlipidemia type: mixed hyperlipidemia Qualified Code(s): E78.2 - Mixed hyperlipidemia (11) Peripheral arterial occlusive disease: PLAN: Plan 82 year old male with below past medical history hospitalized for TIA, right h emiparesis, complicated by dysphagia/achalasia, admitted to TCU for rehabilitation, strengthening, prior to discharge home alone. * Debility - PT/OT/ST. * Pain - Tylenol 1000mg q6 prn pain (1-10). * Bowel - senna/colace 2 tablets bid prn, Loperamide 2mg q4h prn. * DVT prophylaxis - Lovenox 40mg sc daily. * TIA - Plavix 75mg daily, Pletal 50mg bid. * Hyperlipidemia - Atorvastatin 80mg qhs. * PAOD - Plavix 75mg daily, Pletal 50mg bid. * Vitamin B12 deficiency - B12 1000mcg daily. * Iron deficiency - Ferrous sulfate 325mg bidcm. * BPH - Finasteride 5mg daily. * Neuropathic pain - Gabapentin 100mg am, 200mg qhs. * Left lower extremity wound - wound VAC. * Insomnia - Melatonin 5mg qhs prn. * Skin irritation - Calmoseptine topical bid. * Tinea corporis - Nystating powder topical bid. * GERD - Pantoprazole 20mg bid. * Muscle spasm - Tizanidine 2mg q12h prn. * Depression - Citalopram 10mg daily, stable chronic termite helper use, GDR not recommended. Capacity Capacity Assessment Tool Can the patient make a choice & communicate that choice?: Yes Can the patient understand benefits, risks and alternatives?: Yes Can the patient make a logical, rational choice?: Yes Is the choice the patient makes consistent w/ their values?: Yes Is there an impending, emergent risk to the patient?: No Does the patient have an Advance Directive?: No Is there a Surrogate Available?: Yes i.e. HCPOA: Yes i.e. close relative (spouse, child, parent, sibling)?: Yes
[2023-06-10] MEDS: Acetaminophen 500 MG Tablet 1000 MG PO (20:02)
[2023-06-10] MEDS: Gabapentin 100 MG Capsule 200 MG PO (20:02)
[2023-06-10] MEDS: tiZANidine HCl 2 MG Tablet PO (20:02)
[2023-06-10] MEDS: Atorvastatin Calcium 80 MG Tablet PO (20:02)
--- NOTE | 2023-06-10 20:05 | NURSING ---
Administered HS meds early as requested by the patient.
[2023-06-11] MEDS: Menthol/Lanolin/Calamine/Znox 113 GM Tube 1 APPLIC TOPICAL ×3 (05:08→20:22)
[2023-06-11] MEDS: Enoxaparin 40 MG/0.4 ML Syringe SC (05:08)
--- NOTE | 2023-06-11 06:20 | NURSING ---
Restless legs continue despite current medications. Written communication left for Dr. Gómez review this AM requesting med review to assist with restless legs.
[2023-06-11] MEDS: Finasteride 5 MG Tablet PO (10:16)
[2023-06-11] MEDS: Gabapentin 100 MG Capsule PO (10:16)
[2023-06-11] MEDS: Cilostazol 50 MG Tablet PO ×2 (10:16→20:24)
[2023-06-11] MEDS: Pantoprazole Sodium 20 MG Tablet PO ×2 (10:16→20:23)
[2023-06-11] MEDS: Cyanocobalamin 500 MCG Tablet 1000 MCG PO (10:16)
[2023-06-11] MEDS: Citalopram 10 MG Tablet PO (10:16)
[2023-06-11] MEDS: Clopidogrel Bisulfate 75 MG Tablet PO (10:16)
[2023-06-11] MEDS: Nystatin Powder 15gm Bottle 1 APPLIC TOPICAL ×2 (10:22→20:22)
[2023-06-11 13:00] VITALS: BMI 26.4
[2023-06-11 16:00] VITALS: BP 97/55; PULSE 74; RESP 16; TEMP 36.3; O2SAT 98
--- NOTE | 2023-06-11 16:48 | CASEMGMT ---
Social Work: SW spoke with pt to follow up on DC plans. Pt is requesting to discharge to home. SW educated pt to insurance benefits. SW discussed the DC date and pt agreed to 06/20/23. SW inquired about readiness to return home. Pt inquired about HHC with [facility] to help him care for his wound vac because he used them prior. SW will coordinate services with [facility] for OT/PT/SN/GARCIA at time of discharge. KRISTAL discussed the Life Alert button with pt who agreed to look at Life Alert information provided to pt by KRISTAL. SW inquired about the possiblity of [employer] to assist with showering and daily needs. Pt agreed to review information provided by KRISTAL. Provided resource list to pt of [facility] [employer] and [employer]. Dtr will transport pt to home. KRISTAL phoned referral to [facility] for OT/PT/SN/GARCIA. Plan: DC to home alone 06/20/23 with [facility] HHC with OT/PT/SN/GARCIA. Susan JO
[2023-06-11] MEDS: Gabapentin 100 MG Capsule 200 MG PO (20:22)
[2023-06-11] MEDS: Acetaminophen 500 MG Tablet 1000 MG PO (20:23)
[2023-06-11] MEDS: Pramipexole Di-HCl 0.25 MG Tablet PO (20:24)
[2023-06-11] MEDS: Atorvastatin Calcium 80 MG Tablet PO (20:24)
[2023-06-11] MEDS: tiZANidine HCl 2 MG Tablet PO (21:04)
[2023-06-12] MEDS: Enoxaparin 40 MG/0.4 ML Syringe SC (05:27)
[2023-06-12] MEDS: Menthol/Lanolin/Calamine/Znox 113 GM Tube 1 APPLIC TOPICAL ×3 (05:28→20:21)
--- NOTE | 2023-06-12 09:15 | RAD_ITS ---
STUDY: X-RAY - ABDOMEN/PELVIS REASON FOR EXAM: Male, 82 years old. Diarrhea, stool incontinence. TECHNIQUE: Single AP view of the abdomen / pelvis. COMPARISON: None. FINDINGS: Normal visualized lung bases. There is an abundance of fecal material throughout the colon. The visualized liver, spleen and kidneys are grossly normal in size and morphology. Normal soft tissue structures. There are diffuse degenerative changes of the visualized lumbar spine. RAD/Abdomen Single View IMPRESSION: Large amount of fecal material is seen in the colon. Electronically Signed: Irving Crook MD at 14:04 EST ,
[2023-06-12] MEDS: Citalopram 10 MG Tablet PO (09:38)
[2023-06-12] MEDS: Cilostazol 50 MG Tablet PO ×2 (09:38→20:21)
[2023-06-12] MEDS: Pantoprazole Sodium 20 MG Tablet PO ×2 (09:38→20:23)
[2023-06-12] MEDS: Cyanocobalamin 500 MCG Tablet 1000 MCG PO (09:38)
[2023-06-12] MEDS: Clopidogrel Bisulfate 75 MG Tablet PO (09:38)
[2023-06-12] MEDS: Finasteride 5 MG Tablet PO (09:38)
[2023-06-12] MEDS: Nystatin Powder 15gm Bottle 1 APPLIC TOPICAL ×2 (09:39→20:22)
[2023-06-12] MEDS: Gabapentin 100 MG Capsule PO (09:43)
--- NOTE | 2023-06-12 13:58 | WOUNDNOTE ---
wound photo: left heel
--- NOTE | 2023-06-12 13:59 | WOUNDNOTE ---
Pt asking this nurse about area nursing homes and states that may end up being my plan B. Pt is scheduled to be discharged home on 06/20/23. Pt aware to let nursing and case management know if he does not feel that going home is the best thing. Pt states I will see how things go this week and next.
[2023-06-12] MEDS: Magnesium Citrate 300 ML PO (18:15)
--- NOTE | 2023-06-12 19:48 | DS.PCM_ITS ---
Providers Date of Admission: 05/15/23 Primary Care Physician: Dr. Ankur Medina DO Consultations 05/20/23 06:28 Consult: Onc/Wound/meter mechanic Routine Comment: Reason for Consult:: VAC L Achilles area Reason For Visit: DEBILITY Diagnosis Discharge Diagnosis (1) Debility: Status: Acute Code(s): R53.81 - Other malaise (2) Right hemiparesis: Status: Resolved Code(s): G81.91 - Hemiplegia, unspecified affecting right dominant side (3) Dysarthria: Status: Resolved Code(s): R47.1 - Dysarthria and anarthria (4) Hypertension: Status: Chronic Code(s): I10 - Essential (primary) hypertension (5) Atrial fibrillation: Status: Acute Code(s): I48.91 - Unspecified atrial fibrillation (6) BPH (benign prostatic hyperplasia): Status: Acute Code(s): N40.0 - Benign prostatic hyperplasia without lower urinary tract symptoms (7) Neuropathic pain: Status: Acute Code(s): M79.2 - Neuralgia and neuritis, unspecified (8) Cervical spinal stenosis: Status: Acute Code(s): M48.02 - Spinal stenosis, cervical region (9) Muscle spasm: Status: Acute Code(s): M62.838 - Other muscle spasm (10) Hyperlipidemia: Status: Chronic Code(s): E78.5 - Hyperlipidemia, unspecified Qualifiers: Hyperlipidemia type: mixed hyperlipidemia Qualified Code(s): E78.2 - Mixed hyperlipidemia (11) Peripheral arterial occlusive disease: Status: Chronic Code(s): I77.9 - Disorder of arteries and arterioles, unspecified Plan 82 year old male with below past medical history hospitalized for TIA, right hemiparesis, complicated by dysphagia/achalasia, admitted to TCU for rehabilitation, strengthening, prior to discharge home alone. * Debility - PT/OT/ST. * Pain - Tylenol 1000mg q6 prn pain (1-10). * Bowel - senna/colace 2 tablets bid prn, Loperamide 2mg q4h prn. * DVT prophylaxis - Lovenox 40mg sc daily. * TIA - Plavix 75mg daily, Pletal 50mg bid. * Hyperlipidemia - Atorvastatin 80mg qhs. * PAOD - Plavix 75mg daily, Pletal 50mg bid. * Vitamin B12 deficiency - B12 1000mcg daily. * Iron deficiency - Ferrous sulfate 325mg bidcm. * BPH - Finasteride 5mg daily. * Neuropathic pain - Gabapentin 100mg am, 200mg qhs. * Left lower extremity wound - wound VAC. * Insomnia - Melatonin 5mg qhs prn. * Skin irritation - Calmoseptine topical bid. * Tinea corporis - Nystating powder topical bid. * GERD - Pantoprazole 20mg bid. * Muscle spasm - Tizanidine 2mg q12h prn. 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 Medications at Discharge Home Medications finasteride 5 mg tablet (Proscar) 5 mg PO DAILY prostate 07/18/17 cilostazol 50 mg tablet 50 mg PO BID vasodilator 02/02/22 clopidogrel 75 mg tablet 75 mg PO DAILY anti platelet 02/02/22 atorvastatin 80 mg tablet 80 mg PO QHS cholesterol #90 tabs 04/30/22 cyanocobalamin (vitamin B-12) 1,000 mcg tablet 1,000 mcg PO DAILY general health 04/01/23 gabapentin 100 mg capsule 100 mg PO DAILY nerve pain 04/25/23 gabapentin 100 mg capsule 200 mg PO QHS pain 04/25/23 menthol 0.44 %-zinc oxide 20.6 % topical ointment (Calmoseptine) 1 applic topical TID rash #0 grams 04/30/23 miconazole nitrate 2 % topical powder (Desenex) 1 applic topical BID redness #0 grams 04/30/23 tizanidine 2 mg tablet 2 mg PO .COMPLEX PRN muscle spasm lasting more than 5 minutes 05/03/23 acetaminophen 500 mg tablet 1,000 mg (2 x 500 mg) PO Q6H PRN PRN Pain Score 1-10 #0 tabs 06/12/23 citalopram 10 mg tablet 10 mg PO DAILY 30 days #30 tabs 06/12/23 pantoprazole 20 mg tablet,delayed release 20 mg PO BID 30 days #60 tabs 06/12/23 pramipexole 0.25 mg tablet 0.25 mg PO QHS 30 days #30 tabs 06/12/23 Hospital Course Operations None Procedures None Summary of Care Provided Minutes Spent on Discharge: 35 Hospital Course: 82 year old male with below past medical history hospitalized for TIA, right hemiparesis, complicated by dysphagia/achalasia, admitted to for 3 hours daily rehabilitation, strengthening, prior to discharge home alone. Discharge home alone 06/20/2023, [facility] PT/OT/SN/GARCIA. Physical Exam Const alert General Appearance: cooperative HEENT normocephalic Eyes PERRL and EOMs intact bilaterally Neck supple, no JVD and no carotid bruits Resp normal respiratory effort, normal air movement and clear to auscultation bilaterally Cardio regular rate and regular rhythm GI normal to inspection, nondistended, normoactive bowel sounds, non-tender and non-distended Extremity normal capillary refill Extremity Narrative: Wound VAC left posterior distal lower extremity. General Extremity: Negative for edema Skin no rashes or lesions noted Skin Narrative: Left posterior lower extremity wound VAC. General Skin Exam: no breakdown Wound Narrative: Left posterior distal lower extremity wound VAC. Psych affect normal Appearance: appropriate Weight / BMI Weight Weight: 81.284 kg Body Mass Index (BMI) 26.4 ABG / Lab / Microbiology Data 06/06/23 05:22 06/06/23 05:22 Microbiology: Microbiology 06/03/23 04:48 Nasal Secretion SARS-CoV-2 Antigen (Rapid) - Final 05/30/23 05:28 Nasal Secretion SARS-CoV-2 Antigen (Rapid) - Final 05/27/23 04:30 Nasal Secretion SARS-CoV-2 Antigen (Rapid) - Final 05/23/23 04:27 Nasal Secretion SARS-CoV-2 Antigen (Rapid) - Final 05/20/23 05:25 Nasal Secretion SARS-CoV-2 Antigen (Rapid) - Final Radiography Diagnostic Testing: Radiology Impression KUB X-Ray 06/12/23 09:15 IMPRESSION: Large amount of fecal material is seen in the colon. Electronically Signed: Irving Crook MD at 14:04 EST , D/C Instructions Discharge Diet: No restrictions Discharge Activity: Return to Normal Activity, May Shower and Use Walker Weight Bearing Status: Weight bearing as tolerated Call your doctor if you observe: Fever of 101 or Higher, Inability to urinate, Inability to have a bowel movement, Shortness of breath, Dizziness, Fainting spells, Swelling in the ankles, Chest pain and Uncontrolled pain Additional Instructions: charge home alone 06/20/2023, [facility] PT/OT/SN/GARCIA. Meaningful Use Info Meaningful Use Diagnoses (Choose all that apply): None applicable Discharge Plan Admission Admit Date/Time: 05/15/23 10:57 Primary Reason for Your Visit: Debility. Attending Provider: Antonio Gómez Chi Primary Care Provider: Ankur Medina Instructions Additional Instructions / Restrictions: Discharge home alone 06/20/2023, [facility] PT/OT/SN/GARCIA. Discharge Orders/Prescriptions Prescriptions: New acetaminophen 500 mg Tablet 1,000 mg PO Q6H PRN PRN (Reason: Pain Score 1-10) Qty: 0 0RF citalopram 10 mg Tablet 10 mg PO DAILY 30 Days Qty: 30 0RF pantoprazole 20 mg Tablet,Delayed Release (Dr/Ec) 20 mg PO BID 30 Days Qty: 60 0RF pramipexole 0.25 mg Tablet 0.25 mg PO QHS 30 Days Qty: 30 0RF Continued finasteride [Proscar] 5 mg tablet 5 mg PO DAILY cilostazol 50 mg tablet 50 mg PO BID clopidogrel 75 mg tablet 75 mg PO DAILY cyanocobalamin (vitamin B-12) 1,000 mcg tablet 1,000 mcg PO DAILY tizanidine 2 MG tablet 2 mg PO .COMPLEX PRN (Reason: muscle spasm lasting more than 5 minutes) Rx Instructions: 2 mg orally 1-2 tabs at hs PRN; gabapentin 100 mg capsule 100 mg PO DAILY gabapentin 100 mg capsule 200 mg PO QHS Patient Comments: 04/26 pt states tried to cut back, taking only 100mg in the am, 200mg at hs menthol-zinc oxide [Calmoseptine] 0.44-20.6 % Ointment 1 applic topical TID Qty: 0 0RF Protocol: *Topical Application Instructions APPLICATION INSTRUCTIONS: to buttocks and perirectal area miconazole nitrate [Desenex] 2 % Powder 1 applic topical BID Qty: 0 0RF Protocol: *Topical Application Instructions APPLICATION INSTRUCTIONS: Apply to groin atorvastatin 80 mg tablet 80 mg PO QHS Qty: 90 3RF Discontinued acetaminophen [Tylenol Extra Strength] 500 mg tablet 500 mg PO Q4H PRN (Reason: Pain Or Fever) acetaminophen 500 mg Tablet 1,000 mg PO Q6H PRN PRN (Reason: Pain Score 1-10) Qty: 0 0RF tizanidine 2 mg Tablet 2 - 4 mg PO QHS PRN PRN (Reason: muscle spasm lasting>5 min) Qty: 0 0RF citalopram 10 mg Tablet 10 mg PO DAILY Qty: 0 0RF enoxaparin 40 mg/0.4 mL Syringe 40 mg subcut DAILY@0600 Qty: 0 0RF melatonin 5 mg capsule 5 mg PO QHS PRN (Reason: insomnia) Boaz (with collagen) 7-7-1.5 gram Powder In Packet 1 packet PO BIDCM Qty: 0 0RF sennosides-docusate sodium [Stool Softener-Stimulant Laxat] 8.6-50 mg Tablet 2 tab PO BID PRN PRN (Reason: Constipation) Qty: 0 0RF pantoprazole 20 mg Tablet,Delayed Release (Dr/Ec) 20 mg PO BID Qty: 0 0RF ferrous sulfate 325 mg (65 mg iron) tablet 325 mg PO BID Qty: 1 0RF Referrals / Follow Up: Ankur Medina DO [Primary Care Provider] - Disposition Disposition (needs filled in before D/C Order can be placed): Home Health Service
[2023-06-12 20:00] VITALS: PULSE 60; RESP 16
[2023-06-12] MEDS: Gabapentin 100 MG Capsule 200 MG PO (20:20)
[2023-06-12] MEDS: Acetaminophen 500 MG Tablet 1000 MG PO (20:20)
[2023-06-12] MEDS: tiZANidine HCl 2 MG Tablet PO (20:21)
[2023-06-12] MEDS: Pramipexole Di-HCl 0.25 MG Tablet PO (20:22)
[2023-06-12] MEDS: Atorvastatin Calcium 80 MG Tablet PO (20:22)
[2023-06-13 05:52] LABS: Absolute Lymphocyte Count 0.74 X10^3/uL (0.83-4.51); Absolute Neutrophil Count 3.4 X10^3/uL (2.0-7.7); Eosinophil# 0.06 X10^3/uL; Eosinophils% 1.2 % (0-5); Hematocrit 34.4 % (40-54); Hemoglobin 10.7 g/dL (13.0-16.5); Lymphocyte # 0.74 X10^3/ul (0.83-4.51); Lymphocyte % 15.3 % (19-41); Mean Corp Hgb Conc 31.1 g/dL (32-36); Mean Corpuscular Hgb 29.3 pg (27.0-32.0); Mean Corpuscular Volume 94.2 fL (80-94); Mean Platelet Vol. 10.3 fl (6.2-12.0); Monocyte# 0.61 X10^3/uL; Monocyte% 12.6 % (0-10); NRBC Flagged by Analyzer 0 % (0-5); Neutrophil # 3.41 X10^3/uL (2.7-7.7); Neutrophil % 70.7 % (47-70); Platelet Count 284 K/mm3 (150-450); RBC Distribution Width CV 13.6 % (11.6-14.6); RBC Distribution Width SD 47.2 fl (35.1-43.9); Red Blood Count 3.65 M/mm3 (4.6-6.2); White Blood Count 4.8 K/mm3 (4.4-11.0)
[2023-06-13 06:20] LABS: Anion Gap 6 (5-15); BUN 15 mg/dL (7-18); BUN/Creat Ratio 22.8 RATIO (10-20); Calcium,Total 7.8 mg/dL (8.5-10.1); Chloride 106 mmol/L (98-107); Creatinine, Serum 0.66 mg/dL (0.70-1.30); EST Glomerular Filtration Rate 123 mL/min (>60); Est Glom Filt Rate - Afr Amer 149 mL/min (>60); Estimated Creatinine Clearance 56.95 ml/min; Glucose 84 mg/dL (74-106); Potassium 3.7 mmol/L (3.5-5.1); Sodium Level 143 mmol/L (136-145)
[2023-06-13] MEDS: Menthol/Lanolin/Calamine/Znox 113 GM Tube 1 APPLIC TOPICAL ×3 (06:43→20:10)
[2023-06-13] MEDS: Enoxaparin 40 MG/0.4 ML Syringe SC (06:43)
[2023-06-13 06:51] VITALS: PULSE 68; RESP 18; O2SAT 98
[2023-06-13] MEDS: Citalopram 10 MG Tablet PO (09:25)
[2023-06-13] MEDS: Finasteride 5 MG Tablet PO (09:25)
[2023-06-13] MEDS: Clopidogrel Bisulfate 75 MG Tablet PO (09:25)
[2023-06-13] MEDS: Cilostazol 50 MG Tablet PO ×2 (09:25→20:06)
[2023-06-13] MEDS: Cyanocobalamin 500 MCG Tablet 1000 MCG PO (09:26)
[2023-06-13] MEDS: Pantoprazole Sodium 20 MG Tablet PO ×2 (09:26→20:06)
[2023-06-13] MEDS: Gabapentin 100 MG Capsule PO (09:28)
[2023-06-13] MEDS: Nystatin Powder 15gm Bottle 1 APPLIC TOPICAL ×2 (12:04→20:10)
[2023-06-13 14:00] VITALS: BP 94/54; PULSE 69; RESP 16; TEMP 36.7; O2SAT 96
[2023-06-13] MEDS: Gabapentin 100 MG Capsule 200 MG PO (20:05)
[2023-06-13] MEDS: Acetaminophen 500 MG Tablet 1000 MG PO (20:06)
[2023-06-13] MEDS: Pramipexole Di-HCl 0.25 MG Tablet PO (20:07)
[2023-06-13] MEDS: tiZANidine HCl 2 MG Tablet PO (20:07)
[2023-06-13] MEDS: Atorvastatin Calcium 80 MG Tablet PO (20:07)
--- NOTE | 2023-06-14 02:52 | NURSING ---
Patient did not want sock taken off of left foot, stating that the dressing to heel keeps coming off, so he wants sock left on to keep it in place. Patient does suffer from restless legs, with feet constantly moving through the night. Will continue to monitor.
[2023-06-14] MEDS: Enoxaparin 40 MG/0.4 ML Syringe SC (05:21)
[2023-06-14] MEDS: Menthol/Lanolin/Calamine/Znox 113 GM Tube 1 APPLIC TOPICAL ×3 (05:22→20:11)
[2023-06-14] MEDS: Cyanocobalamin 500 MCG Tablet 1000 MCG PO (09:35)
[2023-06-14] MEDS: Pantoprazole Sodium 20 MG Tablet PO ×2 (09:35→20:08)
[2023-06-14] MEDS: Cilostazol 50 MG Tablet PO ×2 (09:36→20:08)
[2023-06-14] MEDS: Clopidogrel Bisulfate 75 MG Tablet PO (09:36)
[2023-06-14] MEDS: Nystatin Powder 15gm Bottle 1 APPLIC TOPICAL ×2 (09:36→23:26)
[2023-06-14] MEDS: Gabapentin 100 MG Capsule PO (09:36)
[2023-06-14] MEDS: Citalopram 10 MG Tablet PO (09:37)
[2023-06-14] MEDS: Finasteride 5 MG Tablet PO (09:37)
[2023-06-14] MEDS: Acetaminophen 500 MG Tablet 1000 MG PO ×2 (09:41→20:07)
[2023-06-14 10:00] VITALS: RESP 16
[2023-06-14 14:52] VITALS: BP 101/56; PULSE 69; RESP 16; TEMP 37.1; O2SAT 95
--- NOTE | 2023-06-14 15:33 | CASEMGMT ---
Social Work Pt thinking of an alternative DC plan and requested list of [facility] SNFs. SW printed list with quality and resource data via [employer] and provided to pt. Pt appreciative. Bonita Mcclelland, [employer] SAFETY PROGRAM COORDINATOR RETAIL DEPARTMENT SUPERVISOR
[2023-06-14] MEDS: Gabapentin 100 MG Capsule 200 MG PO (20:07)
[2023-06-14] MEDS: Atorvastatin Calcium 80 MG Tablet PO (20:08)
[2023-06-14] MEDS: tiZANidine HCl 2 MG Tablet PO (20:10)
[2023-06-14] MEDS: Pramipexole Di-HCl 0.25 MG Tablet PO (20:11)
[2023-06-15] MEDS: Menthol/Lanolin/Calamine/Znox 113 GM Tube 1 APPLIC TOPICAL ×3 (05:47→20:47)
[2023-06-15] MEDS: Enoxaparin 40 MG/0.4 ML Syringe SC (05:47)
[2023-06-15 06:16] VITALS: RESP 16
[2023-06-15] MEDS: Cyanocobalamin 500 MCG Tablet 1000 MCG PO (08:06)
[2023-06-15] MEDS: Citalopram 10 MG Tablet PO (08:06)
[2023-06-15] MEDS: Finasteride 5 MG Tablet PO (08:06)
[2023-06-15] MEDS: Pantoprazole Sodium 20 MG Tablet PO ×2 (08:06→20:46)
[2023-06-15] MEDS: Cilostazol 50 MG Tablet PO ×2 (08:07→20:46)
[2023-06-15] MEDS: Clopidogrel Bisulfate 75 MG Tablet PO (08:07)
[2023-06-15] MEDS: Nystatin Powder 15gm Bottle 1 APPLIC TOPICAL ×2 (08:08→20:48)
[2023-06-15] MEDS: Gabapentin 100 MG Capsule PO (08:11)
[2023-06-15 14:55] VITALS: BP 103/57; PULSE 66; RESP 16; TEMP 36.6; O2SAT 99
[2023-06-15] MEDS: Gabapentin 100 MG Capsule 200 MG PO (20:45)
[2023-06-15] MEDS: tiZANidine HCl 2 MG Tablet PO (20:46)
[2023-06-15] MEDS: Atorvastatin Calcium 80 MG Tablet PO (20:46)
[2023-06-15] MEDS: Pramipexole Di-HCl 0.25 MG Tablet PO (20:46)
[2023-06-15] MEDS: Acetaminophen 500 MG Tablet 1000 MG PO (20:53)
[2023-06-16] MEDS: Menthol/Lanolin/Calamine/Znox 113 GM Tube 1 APPLIC TOPICAL ×3 (05:43→21:20)
[2023-06-16] MEDS: Enoxaparin 40 MG/0.4 ML Syringe SC (05:44)
[2023-06-16] MEDS: Cyanocobalamin 500 MCG Tablet 1000 MCG PO (08:07)
[2023-06-16] MEDS: Pantoprazole Sodium 20 MG Tablet PO ×2 (08:07→21:20)
[2023-06-16] MEDS: Gabapentin 100 MG Capsule PO (08:07)
[2023-06-16] MEDS: Finasteride 5 MG Tablet PO (08:08)
[2023-06-16] MEDS: Citalopram 10 MG Tablet PO (08:08)
[2023-06-16] MEDS: Clopidogrel Bisulfate 75 MG Tablet PO (08:08)
[2023-06-16] MEDS: Cilostazol 50 MG Tablet PO ×2 (08:08→21:17)
[2023-06-16] MEDS: Nystatin Powder 15gm Bottle 1 APPLIC TOPICAL ×2 (08:08→21:20)
[2023-06-16] MEDS: Acetaminophen 500 MG Tablet 1000 MG PO ×2 (08:11→21:18)
[2023-06-16 15:20] VITALS: BP 101/49; PULSE 61; RESP 18; TEMP 36.2; O2SAT 96
[2023-06-16] MEDS: Gabapentin 100 MG Capsule 200 MG PO (21:17)
[2023-06-16] MEDS: tiZANidine HCl 2 MG Tablet PO (21:18)
[2023-06-16] MEDS: Pramipexole Di-HCl 0.25 MG Tablet PO (21:19)
[2023-06-16] MEDS: Atorvastatin Calcium 80 MG Tablet PO (21:20)
[2023-06-17] MEDS: Menthol/Lanolin/Calamine/Znox 113 GM Tube 1 APPLIC TOPICAL ×3 (06:08→20:05)
[2023-06-17] MEDS: Enoxaparin 40 MG/0.4 ML Syringe SC (06:09)
--- NOTE | 2023-06-17 08:55 | NURSING ---
Wound vac dressing change to left achilles heel completed per order. Wound bed, periwound skin, and skin to medial aspect of lower leg to medial knee cleansed w/ soap and water and pat dry. Wound bed w/ granulation and a small area of white tissue. Wound edge white and slightly macerated. Mild odor to wound. No redness, warmth, or swelling noted. pt denies any c/o pain or discomfort. Skin prep applied to periwound skin and skin to medal aspects of lt lower leg and knee. Drape applied over areas where skin prep was applied. Two pieces of black foam applied from wound bed and tracked up to medial knee. Secured w/ additional drape. Hole cut in drape to medial approximately quarter-sized. Track pad applied and secured w/ additional drape. Connected to tubing for canister. Wound vac turned on at 150 mmHg continuous suction. No leak detected. Additional piece of drape applied to distal aspect of dressing per pt request to ensure seal when donning and doffing socks. Pt tolerated well.
[2023-06-17] MEDS: Acetaminophen 500 MG Tablet 1000 MG PO ×2 (09:13→20:04)
[2023-06-17] MEDS: Gabapentin 100 MG Capsule PO (09:14)
[2023-06-17] MEDS: Clopidogrel Bisulfate 75 MG Tablet PO (09:15)
[2023-06-17] MEDS: Finasteride 5 MG Tablet PO (09:15)
[2023-06-17] MEDS: Citalopram 10 MG Tablet PO (09:15)
[2023-06-17] MEDS: Cilostazol 50 MG Tablet PO ×2 (09:15→20:07)
[2023-06-17] MEDS: Pantoprazole Sodium 20 MG Tablet PO ×2 (09:16→20:07)
[2023-06-17] MEDS: Cyanocobalamin 500 MCG Tablet 1000 MCG PO (09:16)
[2023-06-17] MEDS: Nystatin Powder 15gm Bottle 1 APPLIC TOPICAL ×2 (09:24→20:06)
[2023-06-17 15:29] VITALS: BP 108/69; PULSE 61; RESP 16; TEMP 36.8; O2SAT 96
[2023-06-17] MEDS: Gabapentin 100 MG Capsule 200 MG PO (20:04)
[2023-06-17] MEDS: tiZANidine HCl 2 MG Tablet PO (20:05)
[2023-06-17] MEDS: Atorvastatin Calcium 80 MG Tablet PO (20:06)
[2023-06-17] MEDS: Pramipexole Di-HCl 0.25 MG Tablet PO (20:06)
[2023-06-18] MEDS: Enoxaparin 40 MG/0.4 ML Syringe SC (05:36)
[2023-06-18] MEDS: Menthol/Lanolin/Calamine/Znox 113 GM Tube 1 APPLIC TOPICAL ×3 (05:37→20:13)
[2023-06-18] MEDS: Finasteride 5 MG Tablet PO (09:03)
[2023-06-18] MEDS: Citalopram 10 MG Tablet PO (09:03)
[2023-06-18] MEDS: Gabapentin 100 MG Capsule PO (09:03)
[2023-06-18] MEDS: Cilostazol 50 MG Tablet PO ×2 (09:03→20:08)
[2023-06-18] MEDS: Clopidogrel Bisulfate 75 MG Tablet PO (09:03)
[2023-06-18] MEDS: Cyanocobalamin 500 MCG Tablet 1000 MCG PO (09:04)
[2023-06-18] MEDS: Pantoprazole Sodium 20 MG Tablet PO ×2 (09:04→20:09)
[2023-06-18] MEDS: Nystatin Powder 15gm Bottle 1 APPLIC TOPICAL ×2 (09:06→20:12)
[2023-06-18 13:00] VITALS: BMI 26.7
[2023-06-18 16:00] VITALS: BP 103/63; PULSE 63; RESP 16; TEMP 36.6; O2SAT 95
[2023-06-18] MEDS: Acetaminophen 500 MG Tablet 1000 MG PO (20:05)
[2023-06-18] MEDS: Gabapentin 100 MG Capsule 200 MG PO (20:05)
[2023-06-18] MEDS: Atorvastatin Calcium 80 MG Tablet PO (20:06)
[2023-06-18] MEDS: Pramipexole Di-HCl 0.25 MG Tablet PO (20:08)
[2023-06-18] MEDS: tiZANidine HCl 2 MG Tablet PO (20:09)
--- NOTE | 2023-06-18 23:06 | NURSING ---
Patient put call light on, stated he was very confused and didn't know what was happening to him. He stated that the ceiling and wall were reversed in placement. He was able to tell me month, where he was at, and that today was his birthday. He stated that it has happened to him before on a previous unit. After a few minutes, things appeared normal for him. Will continue to monitor.
[2023-06-19] MEDS: Acetaminophen 500 MG Tablet 1000 MG PO ×2 (05:24→20:06)
[2023-06-19] MEDS: Enoxaparin 40 MG/0.4 ML Syringe SC (05:26)
[2023-06-19] MEDS: Menthol/Lanolin/Calamine/Znox 113 GM Tube 1 APPLIC TOPICAL ×3 (05:28→20:05)
[2023-06-19] MEDS: Cilostazol 50 MG Tablet PO ×2 (10:10→20:07)
[2023-06-19] MEDS: Gabapentin 100 MG Capsule PO (10:10)
[2023-06-19] MEDS: Finasteride 5 MG Tablet PO (10:10)
[2023-06-19] MEDS: Cyanocobalamin 500 MCG Tablet 1000 MCG PO (10:10)
[2023-06-19] MEDS: Citalopram 10 MG Tablet PO (10:10)
[2023-06-19] MEDS: Clopidogrel Bisulfate 75 MG Tablet PO (10:10)
[2023-06-19] MEDS: Pantoprazole Sodium 20 MG Tablet PO ×2 (10:10→20:08)
--- NOTE | 2023-06-19 10:50 | WOUNDNOTE ---
wound photo: left Achilles area
--- NOTE | 2023-06-19 10:51 | WOUNDNOTE ---
wound photo: left heel
[2023-06-19] MEDS: Nystatin Powder 15gm Bottle 1 APPLIC TOPICAL ×2 (14:05→20:05)
[2023-06-19 14:50] VITALS: BP 123/71; PULSE 66; RESP 16; TEMP 36.6; O2SAT 96
[2023-06-19 20:00] VITALS: PULSE 80; RESP 16; O2SAT 95
[2023-06-19] MEDS: Gabapentin 100 MG Capsule 200 MG PO (20:06)
[2023-06-19] MEDS: Atorvastatin Calcium 80 MG Tablet PO (20:07)
[2023-06-19] MEDS: Pramipexole Di-HCl 0.25 MG Tablet PO (20:07)
[2023-06-19] MEDS: tiZANidine HCl 2 MG Tablet PO (20:09)
[2023-06-20 06:07] LABS: Absolute Lymphocyte Count 0.84 X10^3/uL (0.83-4.51); Absolute Neutrophil Count 3.1 X10^3/uL (2.0-7.7); Basophil# 0.01 X10^3/uL; Basophil% 0.2 % (0-1); Eosinophil# 0.04 X10^3/uL; Eosinophils% 0.9 % (0-5); Hematocrit 32.7 % (40-54); Hemoglobin 10.2 g/dL (13.0-16.5); Lymphocyte # 0.84 X10^3/ul (0.83-4.51); Lymphocyte % 18.1 % (19-41); Mean Corp Hgb Conc 31.2 g/dL (32-36); Mean Corpuscular Hgb 29.9 pg (27.0-32.0); Mean Corpuscular Volume 95.9 fL (80-94); Mean Platelet Vol. 10.5 fl (6.2-12.0); Monocyte# 0.66 X10^3/uL; Monocyte% 14.2 % (0-10); NRBC Flagged by Analyzer 0 % (0-5); Neutrophil # 3.07 X10^3/uL (2.7-7.7); Neutrophil % 66.2 % (47-70); Platelet Count 232 K/mm3 (150-450); RBC Distribution Width CV 13.5 % (11.6-14.6); RBC Distribution Width SD 47.3 fl (35.1-43.9); Red Blood Count 3.41 M/mm3 (4.6-6.2); White Blood Count 4.6 K/mm3 (4.4-11.0)
[2023-06-20] MEDS: Enoxaparin 40 MG/0.4 ML Syringe SC (06:31)
[2023-06-20] MEDS: Menthol/Lanolin/Calamine/Znox 113 GM Tube 1 APPLIC TOPICAL (06:33)
[2023-06-20 06:43] VITALS: PULSE 51; RESP 16; O2SAT 95
[2023-06-20 06:51] LABS: Anion Gap 5 (5-15); BUN 14 mg/dL (7-18); BUN/Creat Ratio 22.9 RATIO (10-20); Calcium,Total 7.8 mg/dL (8.5-10.1); Chloride 106 mmol/L (98-107); Creatinine, Serum 0.61 mg/dL (0.70-1.30); EST Glomerular Filtration Rate 134 mL/min (>60); Est Glom Filt Rate - Afr Amer 162 mL/min (>60); Estimated Creatinine Clearance 55.97 ml/min; Glucose 84 mg/dL (74-106); Potassium 3.6 mmol/L (3.5-5.1); Sodium Level 142 mmol/L (136-145)
[2023-06-20] MEDS: Citalopram 10 MG Tablet PO (08:24)
[2023-06-20] MEDS: Nystatin Powder 15gm Bottle 1 APPLIC TOPICAL (08:24)
[2023-06-20] MEDS: Cilostazol 50 MG Tablet PO (08:24)
[2023-06-20] MEDS: Clopidogrel Bisulfate 75 MG Tablet PO (08:24)
[2023-06-20] MEDS: Finasteride 5 MG Tablet PO (08:25)
[2023-06-20] MEDS: Pantoprazole Sodium 20 MG Tablet PO (08:25)
[2023-06-20] MEDS: Cyanocobalamin 500 MCG Tablet 1000 MCG PO (08:25)
[2023-06-20] MEDS: Gabapentin 100 MG Capsule PO (08:29)
--- NOTE | 2023-06-20 09:29 | WOUNDNOTE ---
Pt switched over to the home VAC. reviewed alarms, etc. with patient. patient had wound VAC at home for quite some time so denies any further questions or concerns. home health care to change dressing tomorrow. pt very appreciative of care.
--- NOTE | 2023-06-20 10:03 | CASEMGMT ---
Social Work BIMS () and PHQ-2 (07/26) completed for MDS assessment. Bonita Mcclelland MSW UNIT AIDE TECH
[2023-06-20 10:29] VITALS: BP 106/65; PULSE 61; RESP 16; TEMP 36.3; O2SAT 97
== END 2023-06-20 10:45 | disposition home health service (06) | DRG 57 ==
PROVIDERS: Admitting Provider Family Medicine Geriatric Medicine; PCP Family Medicine; Visit Provider Family Medicine Geriatric Medicine
DX: I69.351 Hemiplegia and hemiparesis following cerebral infarction affecting right dominant side (principal); K22.0 Achalasia of cardia; D64.9 Anemia, unspecified; E53.8 Deficiency of other specified B group vitamins; B35.4 Tinea corporis; E78.2 Mixed hyperlipidemia; I48.0 Paroxysmal atrial fibrillation; I73.9 Peripheral vascular disease, unspecified; I69.391 Dysphagia following cerebral infarction; I10 Essential (primary) hypertension; G62.9 Polyneuropathy, unspecified; M62.838 Other muscle spasm; I25.10 Atherosclerotic heart disease of native coronary artery without angina pectoris; I69.322 Dysarthria following cerebral infarction; E61.1 Iron deficiency; G25.81 Restless legs syndrome; N40.0 Benign prostatic hyperplasia without lower urinary tract symptoms; Z87.891 Personal history of nicotine dependence; Z95.5 Presence of coronary angioplasty implant and graft; Z79.899 Other long term (current) drug therapy; Z79.02 Long term (current) use of antithrombotics/antiplatelets; G47.00 Insomnia, unspecified; R13.10 Dysphagia, unspecified
CPT/HCPCS: 36415; 74018; 80048; 85014; 85018; 85025; 87811; 92507; 92526; 92610; 97110; 97116; 97162; 97166; 97530; 97535; 97802

== ENCOUNTER → 2023-06-26 | Outpatient (CLI) | payer MEDICARE, BC, SELFPAY ==
--- NOTE | 2023-06-26 11:59 | RAD_ITS ---
STUDY: X-RAY - ABDOMEN/PELVIS REASON FOR EXAM: Male, 83 years old. DIARRHEA/SUSPECT OBSTIPATION TECHNIQUE: Single AP view of the abdomen / pelvis. COMPARISON: None. FINDINGS: Normal visualized lung bases. There is gaseous distention of the colon, most compatible with a colonic ileus. Moderate right-sided fecal retention. There is no demonstrated free abdominal air. The visualized liver, spleen and kidneys are grossly normal in size and morphology. Normal soft tissue structures. There are diffuse degenerative changes of the visualized lumbar spine. RAD/Abdomen Single View IMPRESSION: Probable colonic ileus with moderate fecal retention. Electronically Signed: Adriano Soto MD at 19:57 EST ,
== END | disposition home or self-care (01) ==
LOC: MTRAD 11:58
PROVIDERS: PCP Family Medicine; Referring Provider Family Medicine; Visit Provider Family Medicine
DX: K59.00 Constipation, unspecified (principal)
CPT/HCPCS: 74018

== ENCOUNTER 2023-07-15 13:46 | Observation (INO) | payer MEDICARE, BC, SELFPAY ==
[2023-07-15 13:47] VITALS: BP 132/76; PULSE 84; RESP 16; TEMP 36.7; O2SAT 96; BMI 27.6
--- NOTE | 2023-07-15 14:12 | EX.ED.DYSGE1 ---
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 He states he had a stroke 2 months ago and has been getting home PT/OT. He ambulates with a walker at baseline even prior to the stroke and has balance issues. He uses a transfer chair. Since yesterday both legs felt heavy like they were nailed to the ground and he could only take a few steps with his walker so he was brought in by his daughter for evaluation. She helped him to the car using a gait belt. He had no falls or injury. He has no other symptoms and denies fever or chills, headache, respiratory symptoms, chest pain or shortness of breath, or bladder or bowel changes. He has twice weekly home health nurse visits to assess his left Achilles wound and he states it is getting better. PFSH <JOCELYN Brooks - Last Filed: 07/15/23 16:39> [facility] Medical History Anterolisthesis Atherosclerotic heart disease of [place] coronary artery without angina pectoris Balanitis BPH (benign prostatic hyperplasia) Bradycardia Catheter-associated urinary tract infection Cervical radiculopathy Debility Depression Dilated aortic root Eczema Essential hypertension Fecal incontinence Generalized weakness History of basal cell cancer History of ST elevation myocardial infarction (STEMI) (01/11/16) Hyperlipidemia Left ventricular hypertrophy Leg swelling Microscopic hematuria Myelopathy Normochromic normocytic anemia 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 Orthostatic hypotension Osteoarthritis PAD (peripheral artery disease) Paroxysmal atrial fibrillation Pressure ulcer Renal cyst Restless leg syndrome Stenosis of cervical spine with myelopathy TIA (transient ischemic attack) Tobacco dependence in remission Urinary incontinence Urinary tract infection Urine retention Home Medications finasteride 5 mg tablet (Proscar) 5 mg PO DAILY PROSTATES 07/18/17 [History Last Taken 05/15/23] cilostazol 50 mg tablet 50 mg PO BID vasodilator 02/02/22 [History Last Taken 05/15/23] clopidogrel 75 mg tablet 75 mg PO DAILY BLOOD THINNER 02/02/22 [History Last Taken 05/15/23] cyanocobalamin (vitamin B-12) 1,000 mcg tablet 1,000 mcg PO DAILY SUPPLEMENT 04/01/23 [History Last Taken 05/15/23] gabapentin 100 mg capsule 100 mg PO DAILY nerve pain 04/25/23 [History Last Taken 05/15/23] gabapentin 100 mg capsule 200 mg PO QHS NERVE PAIN 04/25/23 [History Last Taken 05/14/23] menthol 0.44 %-zinc oxide 20.6 % topical ointment (Calmoseptine) 1 applic topical TID SKIN IRRITATION #0 grams 04/30/23 [Rx Last Taken 05/15/23] miconazole nitrate 2 % topical powder (Desenex) 1 applic topical BID redness #0 grams 04/30/23 [Rx Last Taken 05/15/23] tizanidine 2 mg tablet 2 - 4 mg PO QHS PRN muscle spasm 05/03/23 [History Last Taken 05/14/23] acetaminophen 500 mg tablet 1,000 mg (2 x 500 mg) PO Q6H PRN PRN Pain Score 1-10 #0 tabs 06/12/23 [Rx Last Taken Unknown] citalopram 10 mg tablet 10 mg PO DAILY DEPRESSION 30 days #30 tabs 06/12/23 [Rx Last Taken Unknown] pantoprazole 20 mg tablet,delayed release 20 mg PO BID ACID REFLUX 30 days #60 tabs 06/12/23 [Rx Last Taken Unknown] pramipexole 0.25 mg tablet 0.25 mg PO QHS PARKINSON'S 30 days #30 tabs 06/12/23 [Rx Last Taken Unknown] atorvastatin 80 mg tablet 80 mg PO DAILY CHOLESTEROL 07/15/23 [History Last Taken Unknown] lactulose 10 gram/15 mL oral solution 15 ml PO BID PRN CONSTIPATION 07/15/23 [History Last Taken Unknown] Allergy/AdvReac Type Severity Reaction Status Date / Time No Known Allergies Allergy Verified 07/15/23 13:49 Family History Mother CHF (congestive heart failure) Heart disease Hypertension Father COPD (chronic obstructive pulmonary disease) Surgical History H/O laminectomy History of coronary artery stent placement (07/20/16) History of knee surgery History of pilonidal cyst History of vascular surgery S/P debridement S/P rotator cuff repair Social History household members: none current occupation: retired current occupational exposures/hazards: No history of recent travel: No Smoking Status: Former smoker how long ago did patient quit smokin alcohol intake: current alcohol intake frequency: holidays/special occasions only details: occasional,holiday substance use type: does not use caffeine: Yes Type: coffee Number of servings: 10 what type of physical activity do you participate in: bicycling frequency: 1-2 times per week duration: 15-30 minutes/day seatbelt use: always do you feel safe at home: Yes ROS <JOCELYN Brooks - Last Filed: 07/15/23 16:39> ROS ED ROS Narrative Constitutional: Negative for fever, chills, malaise. CVS: Negative for palpitations, chest pain, syncope. Respiratory: Negative for shortness of breath, cough. GI: Negative for abdominal pain, nausea, vomiting, diarrhea, melena, hematochezia. : Negative for dysuria. Neuro: Negative for headache. EXAM <JOCELYN Brooks - Last Filed: 07/15/23 16:39> Physical Exam Narrative Exam Narrative: CONST: Patient sitting in no acute distress. EYES: Normal inspection. NECK: Normal inspection. RESP: No respiratory distress, CTAB. CVS: Regular rate and rhythm, no murmur, no gallop. ABD: Soft and nontender, no guarding or rebound, nondistended. SKIN: Color normal, no rash, warm, dry, intact. EXTREMITIES: Normal appearance, no pedal edema. NEURO: Oriented x4. PSYCH: Normal affect. Const Vital Signs: 07/15/23 13:47 07/15/23 13:56 Temperature 98.1 F Temperature Source Temporal Pulse Rate 84 Respiratory Rate 16 Respiratory Effort Normal Non-Labored Blood Pressure 132/76 H Blood Pressure Mean 94 Pulse Ox 96 <Dr. Rafiq Hines MD - Last Filed: 07/15/23 16:54> Physical Exam Const Vital Signs: 07/15/23 13:47 07/15/23 13:56 Temperature 98.1 F Temperature Source Temporal Pulse Rate 84 Respiratory Rate 16 Respiratory Effort Normal Non-Labored Blood Pressure 132/76 H Blood Pressure Mean 94 Pulse Ox 96 MDM <JOCELYN Brooks - Last Filed: 07/15/23 16:39> [facility] Narrative Medical decision making narrative: History gathered from: Patient and daughter Patient uses walker at baseline and over the last 2 days has not been able to ambulate independently. Both legs feel heavy. He appears well and nontoxic. Afebrile with normal vital signs. He has no focal neurological deficits and overall benign exam. Lab work reveals no acute abnormalities. Chronic anemia stable at 10.1. CXR and UA negative for acute findings. Patient cannot ambulate with a walker even with 2 people assisting him and is not safe to go home. He is a high fall risk. Case was discussed with the hospitalist for admission. Differential: Electrolyte abnormality, infectious etiology, deconditioning, no symptoms of TIA/CVA Lab Data Attestation: I reviewed the patient's lab results. Labs: Laboratory Results - last 24 hr 07/15/23 07/15/23 14:25 16:20 WBC 4.9 RBC 3.37 L Hgb 10.1 L Hct 30.7 L MCV 91.1 MCH 30.0 MCHC 32.9 RDW Std Deviation 49.0 H RDW Coeff of [place] 14.9 H Plt Count 272 MPV 10.4 Immature Gran % (Auto) 0.200 Neut % (Auto) 75.1 H Lymph % (Auto) 14.0 L [place] % (Auto) 10.3 H Eos % (Auto) 0.2 Baso % (Auto) 0.2 Absolute Neuts (auto) 3.6 Absolute Lymphs (auto) 0.68 L Nucleated RBC % 0 Sodium 138 Potassium 3.9 Chloride 103 Carbon Dioxide 30.0 Anion Gap 5 BUN 14 Creatinine 0.59 L Estim Creat Clear Calc 69.96 Est GFR (MDRD) Af Amer 167 Est GFR (MDRD) Non-Af 138 BUN/Creatinine Ratio 23.6 H Glucose 88 Calcium 9.1 Total Bilirubin 0.60 AST 40 H ALT 37 Alkaline Phosphatase 146 H Total Protein 6.7 Albumin 2.9 L Globulin 3.8 Albumin/Globulin Ratio 0.8 L Urine Color Yellow Urine Clarity Clear Urine pH 7.0 Ur Specific [place] 1.005 Urine Protein Negative Urine Glucose (UA) Normal Urine Ketones Negative Urine Occult Blood Negative Urine Nitrite Negative Urine Bilirubin Negative Urine Urobilinogen Normal Ur Leukocyte Esterase Negative Urine RBC 0 SEEN Urine WBC 0 SEEN Ur Squamous Epith Cells 0 SEEN Urine Bacteria 0 SEEN Urine Mucus 0 SEEN Radiography Diagnostic Testing: Clinical Impression(s) from Imaging Studies Chest X-Ray 07/15/23 14:40 IMPRESSION: No acute abnormality is seen. Electronically Signed: Irvign Crook MD at 15:09 EST , ED attending interpretation of 2-view chest x-ray shows normal heart size, no acute infiltrate, edema, or effusion. EKG Initial EKG: Attestation: I personally reviewed and interpreted this EKG as follows: Comments: A-fib at 59 bpm (read as sinus bradycardia but artifact was being picked up as P waves). No STEMI criteria <Dr. Rafiq Hines MD - Last Filed: 07/15/23 16:54> [facility] MDM Narrative Medical decision making narrative: History gathered from: Patient and daughter Patient uses walker at baseline and over the last 2 days has not been able to ambulate independently. Both legs feel heavy. He appears well and nontoxic. Afebrile with normal vital signs. He has no focal neurological deficits and overall benign exam. Lab work reveals no acute abnormalities. Chronic anemia stable at 10.1. CXR and UA negative for acute findings. Patient cannot ambulate with a walker even with 2 people assisting him and is not safe to go home. He is a high fall risk. Case was discussed with the hospitalist for admission. Differential: Electrolyte abnormality, infectious etiology, deconditioning, no symptoms of TIA/CVA I have personally performed a face to face assessment of the patient and have reviewed the JUSTIN Note. I performed a substantive portion of the visit including all aspects of the following. My cox findings include: History is remarkable for generalized weakness unable to stand or ambulate this morning. Patient was seen by visiting nurse. Wound VAC was changed. Nurse was concerned because he looked ill. Patient had problems with speech since his stroke. He denies headache. He does admit to falls but no head trauma. He denies double vision, blurred vision loss of vision. [place] trouble with speech or swallowing. He denies cardiac or respiratory symptoms. He denies GI symptoms. He states he did have diarrhea when he was discharged in the hospital June 20. This did resolve. He denies urologic symptoms. Exam is patient appears slightly pale. He does have slurring of his words, which is baseline for patient. There is no evidence of head trauma. There is no clinical signs of basilar skull fracture. Nares patent. Posterior pharynx is normal. Neck is supple. Lungs are clear to auscultation. There is a bruise noted over the left scapula. There are bruises noted upper extremity as well as lower extremity. Heart is without murmur, gallop or rub. Abdomen is soft nontender. There is no paraspinal megaly. There is no palpable mass or pulsatile mass. There is no abdominal bruit. There is no midline dorsal or lumbar pain to palpation. He is alert oriented x 3. He does lean to the right. He has had trouble with vertigo for some time. Patient withdraws to Babinski testing. He has wraps on his legs which were not removed since he has wound vacs on and did not want to disrupt this. Patient informed me and so did his daughter that the wound nurse states the wounds look better. Medical Decision Making need to evaluate for metabolic or infectious cause of his acute physical change. Workup was unremarkable. Since patient is unable to stand without assistance let alone ambulate will contact hospitalist for admission Other additions or changes: None Lab Data Lab results narrative: CBC is remarkable for mild anemia with normal indices. Electrolyte panel is unremarkable and unchanged from prior. Alkaline phosphatase slightly elevated 146 otherwise hepatic is normal. UA is negative. Labs: Laboratory Results - last 24 hr 07/15/23 07/15/23 14:25 16:20 WBC 4.9 RBC 3.37 L Hgb 10.1 L Hct 30.7 L MCV 91.1 MCH 30.0 MCHC 32.9 RDW Std Deviation 49.0 H RDW Coeff of [place] 14.9 H Plt Count 272 MPV 10.4 Immature Gran % (Auto) 0.200 Neut % (Auto) 75.1 H Lymph % (Auto) 14.0 L [place] % (Auto) 10.3 H Eos % (Auto) 0.2 Baso % (Auto) 0.2 Absolute Neuts (auto) 3.6 Absolute Lymphs (auto) 0.68 L Nucleated RBC % 0 Sodium 138 Potassium 3.9 Chloride 103 Carbon Dioxide 30.0 Anion Gap 5 BUN 14 Creatinine 0.59 L Estim Creat Clear Calc 69.96 Est GFR (MDRD) Af Amer 167 Est GFR (MDRD) Non-Af 138 BUN/Creatinine Ratio 23.6 H Glucose 88 Calcium 9.1 Total Bilirubin 0.60 AST 40 H ALT 37 Alkaline Phosphatase 146 H Total Protein 6.7 Albumin 2.9 L Globulin 3.8 Albumin/Globulin Ratio 0.8 L Urine Color Yellow Urine Clarity Clear Urine pH 7.0 Ur Specific [place] 1.005 Urine Protein Negative Urine Glucose (UA) Normal Urine Ketones Negative Urine Occult Blood Negative Urine Nitrite Negative Urine Bilirubin Negative Urine Urobilinogen Normal Ur Leukocyte Esterase Negative Urine RBC 0 SEEN Urine WBC 0 SEEN Ur Squamous Epith Cells 0 SEEN Urine Bacteria 0 SEEN Urine Mucus 0 SEEN Radiography Diagnostic Testing: Clinical Impression(s) from Imaging Studies Chest X-Ray 07/15/23 14:40 IMPRESSION: No acute abnormality is seen. Electronically Signed: Irving Crook MD at 15:09 EST , Management Discussion w/another healthcare provider: Hospitalist Treatment and Re-Evaluation :: Patient was unable to stand without assistance of 2 people while holding walker. Patient not safe to go home. Will contact hospitalist for admission. Discharge Plan Triage Chief Complaint: Weakness ED Midlevel Provider: Pebbles Roberts ED Provider: Rafiq Hines Dx/Rx/DC Orders Clinical Impression: Inability to walk, Generalized weakness Primary Care Provider: Ankur Medina
[2023-07-15 14:37] LABS: Absolute Lymphocyte Count 0.68 X10^3/uL (0.83-4.51); Absolute Neutrophil Count 3.6 X10^3/uL (2.0-7.7); Basophil# 0.01 X10^3/uL; Basophil% 0.2 % (0-1); Eosinophil# 0.01 X10^3/uL; Eosinophils% 0.2 % (0-5); Hematocrit 30.7 % (40-54); Hemoglobin 10.1 g/dL (13.0-16.5); Lymphocyte # 0.68 X10^3/ul (0.83-4.51); Mean Corp Hgb Conc 32.9 g/dL (32-36); Mean Corpuscular Volume 91.1 fL (80-94); Mean Platelet Vol. 10.4 fl (6.2-12.0); Monocyte% 10.3 % (0-10); NRBC Flagged by Analyzer 0 % (0-5); Neutrophil # 3.64 X10^3/uL (2.7-7.7); Neutrophil % 75.1 % (47-70); Platelet Count 272 K/mm3 (150-450); RBC Distribution Width CV 14.9 % (11.6-14.6); Red Blood Count 3.37 M/mm3 (4.6-6.2); White Blood Count 4.9 K/mm3 (4.4-11.0)
--- NOTE | 2023-07-15 14:40 | RAD_ITS ---
STUDY: X-RAY CHEST REASON FOR EXAM: Male, 83 years old. Weakness TECHNIQUE: AP and lateral views of the chest. COMPARISON: Comparison is made with prior study dated April 25, 2023. FINDINGS: The lungs are clear and expanded. There is no demonstrated pleural abnormality. Normal size heart. Normal mediastinum and rachna. Normal visualized pulmonary arteries. There is atherosclerotic tortuosity of the aortic arch and descending thoracic aorta. There are diffuse degenerative changes of the visualized thoracic spine. There is evidence of prior left rotator cuff surgery. There is no demonstrated abnormality of the visualized soft tissue structures of the upper abdomen. RAD/Chest PA and Lateral IMPRESSION: No acute abnormality is seen. Electronically Signed: Irving Crook MD at 15:09 EST ,
[2023-07-15 14:54] LABS: ALB/GLOB Ratio 0.8 RATIO (0.9-2.4); AST(SGOT) 40 U/L (15-37); Alanine Aminotransfer ALT/SGPT 37 U/L (16-61); Albumin, Serum 2.9 g/dL (3.2-5.0); Alkaline Phosphatase 146 U/L (45-117); Anion Gap 5 (5-15); BUN 14 mg/dL (7-18); BUN/Creat Ratio 23.6 RATIO (10-20); Calcium,Total 9.1 mg/dL (8.5-10.1); Chloride 103 mmol/L (98-107); Creatinine, Serum 0.59 mg/dL (0.70-1.30); EST Glomerular Filtration Rate 138 mL/min (>60); Est Glom Filt Rate - Afr Amer 167 mL/min (>60); Estimated Creatinine Clearance 69.96 ml/min; Globulin 3.8 g/dL (2.2-4.2); Glucose 88 mg/dL (74-106); Potassium 3.9 mmol/L (3.5-5.1); Protein, Total 6.7 g/dL (6.4-8.2); Sodium Level 138 mmol/L (136-145)
--- NOTE | 2023-07-15 16:21 | PCM.HP.STD ---
HPI - General General Date of Admission: 07/15/23 Date of Service: 07/15/23 Chief Complaint: Debility HPI Narrative SARA SAHA, is a 83 M who presented to [facility] ED on 07/15/2024 from home with worsening debility. Patient seen at bedside in the ED, daughter present. Patient was laying comfortably in bed, conversing normally, in no acute distress. Patient was hospitalized at [facility] from 04/25-04/30/2023 for a TIA complicated by acute debility. Was discharged to the TCU on 04/30 and stayed there until 06/12. Was then discharged home, where he lives by himself. He has had home health care coming to the home twice per week for physical therapy. Patient and daughter state that he did well in the TCU and felt like he was closer to his baseline when he was discharged to TCU, but since going home he has steadily declined despite working with therapy. Patient notably ambulated with a walker prior to his TIA and previously had balance issues. Since returning home, he has continued to use the walker as well as a transfer chair. States that starting yesterday, his legs felt increasingly heavy and he could only take a few steps with a walker before having to sit down. So, his daughter brought him in for further evaluation. He denies any falls at home recently. Denies any fevers or chills. Denies any other infectious type symptoms. Denies any chest pain, shortness of breath, abdominal pain or discomfort. Patient has a known chronic left Achilles wound, has had wound therapy coming to the home twice weekly to manage this. States that the wound does appear to be getting better and he has no Achilles pain at this time. No other acute concerns this time. 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 Orthostatic hypotension Osteoarthritis PAD (peripheral artery disease) Paroxysmal atrial fibrillation Pressure ulcer Renal cyst Restless leg syndrome Stenosis of cervical spine with myelopathy TIA (transient ischemic attack) Tobacco dependence in remission Urinary incontinence Urinary tract infection Urine retention Home Medications finasteride 5 mg tablet (Proscar) 5 mg PO DAILY PROSTATES 07/18/17 [History Last Taken 07/14/23] cilostazol 50 mg tablet 50 mg PO BID vasodilator 02/02/22 [History Last Taken 07/14/23] clopidogrel 75 mg tablet 75 mg PO DAILY BLOOD THINNER 02/02/22 [History Last Taken 07/14/23] cyanocobalamin (vitamin B-12) 1,000 mcg tablet 1,000 mcg PO DAILY SUPPLEMENT 04/01/23 [History Last Taken 07/14/23] gabapentin 100 mg capsule 100 mg PO DAILY nerve pain 04/25/23 [History Last Taken 07/14/23] gabapentin 100 mg capsule 200 mg PO QHS NERVE PAIN 04/25/23 [History Last Taken 07/14/23] tizanidine 2 mg tablet 2 - 4 mg PO QHS PRN muscle spasm 05/03/23 [History Last Taken 05/14/23] citalopram 10 mg tablet 10 mg PO DAILY DEPRESSION 30 days #30 tabs 06/12/23 [Rx Last Taken 07/14/23] pramipexole 0.25 mg tablet 0.25 mg PO QHS P[place]'S 30 days #30 tabs 06/12/23 [Rx Last Taken Unknown] acetaminophen 500 mg tablet 1,000 mg PO Q6H PRN Pain Score 1-10 07/15/23 [History Last Taken 07/14/23] amoxicillin 875 mg-potassium clavulanate 125 mg tablet 1 tab PO BID ANTIBIOTIC 07/15/23 [History Last Taken 07/14/23] atorvastatin 80 mg tablet 80 mg PO DAILY CHOLESTEROL 07/15/23 [History Last Taken 07/14/23] miconazole nitrate 2 % topical powder (Desenex) 1 applic topical BID PRN redness 07/15/23 [History Last Taken 07/13/23] Allergy/AdvReac Type Severity Reaction Status Date / Time No Known Allergies Allergy Verified 07/15/23 13:49 Family History Mother CHF (congestive heart failure) Heart disease Hypertension Father COPD (chronic obstructive pulmonary disease) Surgical History H/O laminectomy History of coronary artery stent placement (01/11/16) History of knee surgery History of pilonidal cyst History of vascular surgery S/P debridement S/P rotator cuff repair Social History household members: none current occupation: retired current occupational exposures/hazards: No history of recent travel: No Smoking Status: Former smoker how long ago did patient quit smokin alcohol intake: current alcohol intake frequency: holidays/special occasions only details: occasional,holiday substance use type: does not use caffeine: Yes Type: coffee Number of servings: 10 what type of physical activity do you participate in: bicycling frequency: 1-2 times per week duration: 15-30 minutes/day seatbelt use: always do you feel safe at home: Yes ROS Constitutional Constitutional: Reports weakness; Denies chills, fatigue, fever(s) or malaise Eyes Eyes: Denies change in vision ENT HEENT: Denies dysphagia Cardiovascular Cardiovascular: Denies chest pain or dyspnea on exertion Respiratory/Chest Respiratory/Chest: Denies cough, shortness of breath at rest or wheezing Gastrointestinal Gastrointestinal: Denies abdominal pain, constipation, diarrhea, nausea or vomiting Genitourinary Genitourinary: Denies dysuria Musculoskeletal Musculoskeletal: Denies arthralgias or back pain Neurologic Neurologic: Denies abnormal speech, confusion, focal weakness, headache(s) or numbness Vital Signs Vital Signs Vital Signs: 07/15/23 13:47 07/15/23 13:56 Temperature 98.1 F Temperature Source Temporal Pulse Rate 84 Respiratory Rate 16 Respiratory Effort Normal Non-Labored Blood Pressure 132/76 H Blood Pressure Mean 94 Pulse Ox 96 Weight Weight: 84.822 kg Body Mass Index (BMI) 27.6 Physical Exam Const alert, oriented x3, no apparent distress and average body habitus Constitutional Narrative: Pleasant elderly male, laying comfortably in bed, conversing normally, no acute distress. General Appearance: cooperative and comfortable HEENT normocephalic, head/scalp atraumatic, hearing grossly normal bilaterally, nasal mucous membranes and turbinates normal and moist oral mucous membranes Eyes PERRL, EOMs intact bilaterally and conjunctivae normal Neck full ROM, no lymphadenopathy and supple Lymph Lymphatic: no lymphadenopathy noted Chest inspection of chest normal Resp normal respiratory effort, normal air movement, no use of accessory muscles and clear to auscultation bilaterally Cardio regular rate, regular rhythm, no murmurs and peripheral pulses 2+ throughout GI normal to inspection, nondistended, normoactive bowel sounds, soft to palpation, non-tender and non-distended Back/Spine normal ROM Extremity full ROM and no pedal edema Extremity Narrative: Left Achilles wound with wound VAC noted. Skin no rashes or lesions noted Neuro oriented x3, moves all extremities and no focal motor deficits Speech: speech normal Psych mental status grossly normal Results Lab / Micro Data 07/15/23 14:25 07/15/23 14:25 Labs: Laboratory Results - last 24 hr 07/15/23 14:25: WBC 4.9, RBC 3.37 L, Hgb 10.1 L, Hct 30.7 L, MCV 91.1, MCH 30.0, MCHC 32.9, RDW Std Deviation 49.0 H, RDW Coeff of [place] 14.9 H, Plt Count 272, MPV 10.4, Immature Gran % (Auto) 0.200, Neut % (Auto) 75.1 H, Lymph % (Auto) 14.0 L, [place] % (Auto) 10.3 H, Eos % (Auto) 0.2, Baso % (Auto) 0.2, Absolute Neuts (auto) 3.6, Absolute Lymphs (auto) 0.68 L, Nucleated RBC % 0, Sodium 138, Potassium 3.9, Chloride 103, Carbon Dioxide 30.0, Anion Gap 5, BUN 14, Creatinine 0.59 L, Estim Creat Clear Calc 69.96, Est GFR (MDRD) Af Amer 167, Est GFR (MDRD) Non-Af 138, BUN/Creatinine Ratio 23.6 H, Glucose 88, Calcium 9.1, Total Bilirubin 0.60, AST 40 H, ALT 37, Alkaline Phosphatase 146 H, Total Protein 6.7, Albumin 2.9 L, Globulin 3.8, Albumin/Globulin Ratio 0.8 L Imagaing Radiology Impression Chest X-Ray 07/15/23 14:40 IMPRESSION: No acute abnormality is seen. Electronically Signed: Irving Crook MD at 15:09 EST , Assessment & Plan Assessment/Plan (1) Debility: PLAN: Plan Patient is an 83-year-old male who presented to [facility] ED on 07/15/2023 with worsening weakness. 1. Acute on chronic debility Unclear etiology of general worsening of debility over the past few days to weeks. Lab workup fairly benign. UA noninfectious. Chest x-ray nonacute. ? Admit under observation status to [facility]. PT/OT/case management consulted. Notably had recent stay in the TCU and had good experience, would be happy to return to TCU if possible. 2. Recent history of TIA Hospitalized from 04/25-04/30 at [facility]. Presented with slurred speech, right-sided weakness and gait and balance. MRI was negative for acute stroke, suspected patient had TIA. Deficits had resolved prior to discharge. Treated with aspirin and Plavix for 3 weeks, then Plavix continued after this. ? Continue home Plavix and statin. Therapy consulted as above. 3. Abnormal esophageal motility suspicious for achalasia ? Noted during previous hospitalization. Underwent esophageal dilation with Dr. Monterroso on 04/29, tolerated this well. No further issues with dysphagia since then per patient. Continue home PPI. 4. Chronic normocytic anemia ? Hemoglobin 10.1, MCV 91 on admit. Baseline hemoglobin 10-11. Known history of iron deficiency anemia, again demonstrated on labs during April hospitalization. Did not tolerate oral iron supplement well, has not been taking. Monitor CBC. Chronic medical conditions: ? CAD with history of STEMI, hypertension, hyperlipidemia: Continue home statin, Plavix. ? BPH with obstructive symptoms: Continue home finasteride. ? Peripheral artery disease: Continue home cilostazol. ? Neuropathy: Continue home gabapentin. ? Depression: Continue home citalopram. ? Restless leg syndrome: Continue home pramipexole. DVT prophylaxis: Lovenox CODE STATUS: Full code, verified Expected disposition: SNF, 1 to 2 days Total clinical time spent by myself addressing the patient's medical issues, reviewing all the data, and collaborating with patient's care team: 55 minutes. Charges/Coding Visit Charges Inpatient E&M: 29770 Init Hosp L2
[2023-07-15 16:26] LABS: Bacteria 0 SEEN /hpf (None Seen); Mucous, Urine 0 SEEN /hpf (<or=2+); Red Blood Cells-Urine 0 SEEN /hpf (0-5); Squamous Epithelial Cells - UA 0 SEEN /hpf (0-5); White Blood Cells 0 SEEN /hpf (0-5)
[2023-07-15 16:30] LABS: Color, Urine Yellow (Yellow); Glucose, Dipstick Normal (Normal); Ketone-Dipstick Negative (Negative); Leukocyte Esterase-Dipstick Negative /ul (Negative); Nitrite-Dipstick Negative (Negative); Occult Blood-Urine Negative /ul (Negative); Protein-Dipstick Negative (Negative); Specific Gravity, Urine 1.005 (1.002-1.030); Urine Bilirubin Dipstick Negative (Negative); Urine Clarity Clear (Clear); Urine Urobilinogen Normal (Normal)
[2023-07-15 16:47] VITALS: BP 119/50; PULSE 83; RESP 16; TEMP 36.4; O2SAT 95
--- OUTSIDE RECORDS SUMMARY | 2023-07-15 16:50 | XMS RPT_ITS | CCD ---
Author Name Unknown Address [address] [place] [address] Organization [facility] Care Team Providers Care Director Of Pupil Personnel Program Name Role Phone Enriquez, Yanique Unavailable Unavailable Enriquez, Yanique Unavailable Unavailable DeFinis, Harumi Y Unavailable Unavailable Enriquez, Yanique Unavailable Unavailable Unavailable Primary Care Provider Unavailnamita Wang MD, Antoni Encarnacion Primary Care Provider WUBRISSA THAOJAS AUBREY Attending Unavailable WU, JUAN AUBREY Referring Unavailable ANTONI WANG Primary Care Unavailable WU, JUAN AUBREY Attending Unavailable WU, JUAN AUBREY Referring Unavailable ANTONI WANG Primary Care Unavailable Antoni Wang MD Primary Care Provider ANTONI WANG Primary Care Unavailable WU, JUAN AUBREY Attending Unavailable WU, JUAN AUBREY Admitting Unavailable WU, JUAN AUBREY Attending Unavailable WU, JUAN AUBREY Admitting Unavailable ANTONI WANG Primary Care Unavailable WU, JUAN AUBREY Attending Unavailable ANTONI WANG Primary Care Unavailable ELLIOT GLEASON Referring Unavailable WU, JUAN AUBREY Admitting Unavailable ANTONI WANG Primary Care Unavailable LEILANI NY Attending Unavailable WU, JUAN AUBREY Attending Unavailable ANTONI WANG Primary Care Unavailable WU, JUAN AUBREY Attending Unavailable ANTONI WANG Primary Care Unavailable Unknown, Referring Provider Unavailable Unav ailable Unavailable Unavailable Dr. Elliot Gleason Referring Unavailable ANNE, DO VIET CONTRERAS Attending Unav ailable UNKNOWN, PCP Primary Care Unavailable ANNE, DO VIETSUDHA CONTRERAS Attending Unav ailable UNKNOWN, PCP Primary Care Unavailable Dr. Elliot Gleason Referring Unavailable Felipe HARTMANN, Antoni Encarnacion Primary Care Provider Medications Current Medications Medication Drug Class(es) Dates Sig (Normalized) Sig (Original) acetaminophen 500 mg oral tablet (8 sources) Start: 09-25-2018 acetaminophen (TYLENOL) 500 MG tablet 500 mg daily as needed . 0 09/25/2018 Active aspirin 81 mg delayed release oral tablet (10 sources) Platelet Aggregation Inhibitor, Nonsteroidal Anti-inflammatory Drug Start: 01-30-2016 take 1 tablet by mouth once daily aspirin 81 MG EC tablet Take 81 mg by mouth daily . 0 01/30/2016 Active atorvastatin 80 mg oral tablet (16 sources) HMG-CoA Reductase Inhibitor Start: 08-17-2021 take 1 tablet by mouth once daily atorvastatin (LIPITOR) 80 MG tablet Take 80 mg by mouth daily . 0 08/17/2021 Active Completed/Discontinued Medications Medication Drug Class(es) Dates Sig (Normalized) Sig (Original) ginseng preparation 250 mg oral capsule (3 sources) Start: 12-13-2016 take 1 tablet by mouth once daily GINSENG CAPS One tablet by mouth daily GINSENG CAPS Raul Ahumada MD melatonin 5 mg oral tablet (8 sources) Start: 02-24-2016 End: 02-28-2016 take 1 tablet by mouth once daily as needed MELATONIN 5 MG TABS One tablet by mouth daily as needed MELATONIN [id number] Raul Ahumada MD metoprolol tartrate 25 mg oral tablet (16 sources) beta-Adrenergic Jina Start: 02-24-2016 take 1 tablet by mouth twice daily METOPROLOL TARTRATE 25 MG TABS One tablet by mouth twice daily METOPROLOL TARTRATE [id number] Raul Ahumada MD Problems Active Problems Problem Classification Problem Date Documented Date Episodic/Chronic Aortic; peripheral; and visceral artery aneurysms (2 sources) Aortic root dilatation; Translations: [Aortic ectasia, unspecified site] Onset: 02-24-2016 02-24-2016 Chronic Cardiac dysrhythmias (4 sources) Paroxysmal atrial fibrillation; Translations: [Paroxysmal atrial fibrillation] Onset: 02-24-2016 02-24-2016 Chronic Chronic ulcer of skin (11 sources) Chronic ulcer of skin; Translations: [Non-pressure chronic ulcer of skin of other sites with unspecified severity] Onset: 10-04-2021 Chronic Coronary atherosclerosis and other heart disease (20 sources) Atherosclerotic heart disease of [place] coronary artery without angina pectoris; Translations: [Old myocardial infarction] Onset: 02-24-2016 02-24-2016 Chronic Disorders of lipid metabolism (14 sources) Hyperlipidemia; Translations: [Dyslipidemia] Onset: 02-24-2016 02-24-2016 Chronic Essential hypertension (4 sources) Hypertensive disorder; Translations: [Essential (primary) hypertension] Onset: 02-24-2016 02-24-2016 Chronic Heart valve disorders (6 sources) H/O: artificial heart valve; Translations: [Aortic root dilatation] Onset: 02-24-2016 02-24-2016 Chronic Other nervous system disorders (3 sources) Idiopathic peripheral neuropathy; Translations: [Unspecified hereditary and idiopathic peripheral neuropathy] Chronic Other nutritional; endocrine; and metabolic disorders (4 sources) Body mass index (BMI) 31.0-31.9, adult; Translations: [Body mass index (BMI) 31.0-31.9, adult] Onset: 02-24-2016 02-24-2016 Chronic Peripheral and visceral atherosclerosis (20 sources) Peripheral vascular disease, unspecified; Translations: [Peripheral vascular disease, unspecified] Onset: 09-27-2021 Chronic Unclassified (2 sources) Placement of stent in coronary artery ; Translations: [Presence of coronary angioplasty implant and graft] Onset: 02-24-2016 02-24-2016 Unclassified (2 sources) Long-term drug therapy; Translations: [Other bed bug exterminator (current) drug therapy] Onset: 02-24-2016 02-24-2016 Unclassified (2 sources) Warfarin therapy started; Translations: [termination clerk (current) use of anticoagulants] Onset: 02-24-2016 02-24-2016 Past or Other Problems Problem Classification Problem Date Documented Da te Episodic/Chronic Cardiac dysrhythmias (5 sources) Bradycardia; Translations: [Bradycardia, unspecified] Onset: 12-13-2021 12-13-2021 Episodic Other aftercare (8 sources) termination clerk (current) use of antithrombotics/ antiplatelets; Translations: [prison (current) use of anticoagulants] Onset: 02-24-2016 02-24-2016 Episodic Results Test Name Value Interpretation Reference Range Facil ity Vital Signs Date Time Vital Sign Value Performing Clinician Facility 10-30-2022 13:37-0400 Body height 175.26 cm Referring Provider Unknown QA-Rmsqlphrxr-YEI [facility] DO Work Phone: 10-30-2022 13:37-0400 Body mass index (BMI) [Ratio] 30.27 kg/m2 Referring Provider Unknown WV-Cxgtvcnalg-BML [facility] DO Work Phone: 10-30-2022 13:37-0400 Body surface area Derived from formula 2.09 m2 Referring Provider Unknown XJ-Nrrppjprgl-UVO [facility] DO Work Phone: 10-30-2022 13:37-0400 Body weight 92.99 kg Referring Provider Unknown ZZ-Sitphnzinp-VOY [facility] DO Work Phone: 10-30-2022 13:37-0400 Diastolic blood pressure 63 mm[Hg] Referring Provider Unknown XI-Xsiopwenjs-RTD [facility] DO Work Phone: 10-30-2022 13:37-0400 Heart rate 75 /min Referring Provider Unknown NK-Qdowzbsgbk-VGM [facility] DO Work Phone: 10-30-2022 13:37-0400 Respiratory rate 18 /min Referring Provider Unknown VJ-Rdbkslyvlu-POZ [facility] DO Work Phone: 10-30-2022 13:37-0400 Systolic blood pressure 132 mm[Hg] Referring Provider Unknown RA-Ydxnvatzuf-TGH [facility] DO Work Phone: 09-27-2021 15:06-0400 Diastolic blood pressure 80 mm[Hg] Juan Wu MD Work Phone: [facility] 09-27-2021 15:06-0400 Systolic blood pressure 142 mm[Hg] Juan Wu MD Work Phone: [facility] 09-27-2021 14:49-0400 Body height 175.3 cm Juan Wu MD Work Phone: [facility] 09-27-2021 14:49-0400 Body mass index (BMI) [Ratio] 29.68 kg/m2 Juna Wu MD Work Phone: [facility] 09-27-2021 14:49-0400 Body weight 91.17 kg Juan Wu MD Work Phone: [facility] 09-27-2021 14:49-0400 Heart rate 58 /min Juan Wu MD Work Phone: [facility] 09-27-2021 14:49-0400 SaO2% (BldA) [Mass fraction] 97 % Juan Wu MD Work Phone: [facility] 12-13-2016 14:19-0400 Heart rate 51 /min Yanique Fernandoby [facility] Work Phone: 12-13-2016 13:11-0400 BP Diastolic 64 mm[Hg] Yanique Enriquez [facility] Work Phone: 12-13-2016 13:11-0400 BP Systolic 118 mm[Hg] Yanique Enriquez [facility] Work Phone: 12-13-2016 13:11-0400 Pulse (Heart Rate) 52 /min Yanique Enriquez [facility] Work Phone: 12-13-2016 13:11-0400 Respiratory Rate 18 /min Yanique Enriquez [facility] Work Phone: 06-04-2016 10:21-0500 Heart rate 61 /min Harumi DeFinis [facility] Work Phone: 06-04-2016 09:04-0500 BMI (Body Mass Index) 31.16 kg/m2 Harumi DeFinis [facility] Work Phone: 06-04-2016 09:04-0500 BP Diastolic 62 mm[Hg] Harumi DeFinis [facility] Work Phone: 06-04-2016 09:04-0500 BP Systolic 110 mm[Hg] Harumi DeFinis [facility] Work Phone: 06-04-2016 09:04-0500 BSA (Body Surface Area) 2.02 m2 Noa Gonzalez [facility] Work Phone: 06-04-2016 09:04-0500 Height 170.18 cm Noa Gonzalez [facility] Work Phone: 06-04-2016 09:04-0500 Pulse (Heart Rate) 66 /min Noa Gonzalez [facility] Work Phone: 06-04-2016 09:04-0500 Respiratory Rate 18 /min [facility] Work Phone: 06-04-2016 09:04-0500 Weight 90.27 kg Noa Gonzalez [facility] Work Phone: Encounters Encounter Date Encounter Type Care Provider Facility Start: 12-26-2022 Refill Rashida Hay To yolandai TECHNOLOGIST [facility] Procedures Date Procedure Procedure Detail Performing Clinician Start: 09-16-2020 Antibody screen Plan of Treatment Date Care Activity Detail Author Start: 02-22-2023 Influenza vaccination [facility] Start: 12-14-2022 Pneumococcal Vaccine: Age 65+ (2 - PCV) Pneumococcal Vaccine: Age 65+ (2 - PCV) [facility] Start: 11-14-2022 NPV, Provider: Iglesia Martin, Status: Pen, Time: 3:00 PM NPV, Provider: Iglesia Martin, Status: Pen, Time: 3:00 PM WZ-Umfwoiejys-QVT [facility] DO Work Phone: Start: 10-30-2022 NPV, Provider: Viet House, Status: Pen, Time: 2:30 PM NPV, Provider: Viet House, Status: Pen, Time: 2:30 PM QT-Pxupnqglvq-AKL [facility] DO Work Phone: Start: 10-30-2022 PVRWITHABI, Provider: [id number], Status: Pen, Time: 1:00 PM PVRWITHABI, Provider: [id number], Status: Pen, Time: 1:00 PM TS-Mjfygxtvoq-RFB [facility] DO Work Phone: Start: 02-22-2022 Influenza vaccination [facility] Start: 01-24-2022 End: 01-24-2022 Admission to same day surgery center 01/24/2022 Surgery Cardiology Juan Wu MD [address] [place] [address] Peripheral Lower Extremity Angiogram Possible Intervention [facility] Pad 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 Immunizations Immunization Date Immunization Notes Care Provider Fa cility 07-02-2022 pneumococcal polysaccharide vaccine, 23 valent Referring Provider Unknown FK-Rkjiwzdwbn-SBG [facility] DO Work Phone: 03-24-2022 Fluzone High-Dose Quadrivalent 0.7 ML Intramuscular Suspension Prefilled Syringe Referring Provider Unknown WM-Mstvkiehks-YST [facility] DO Work Phone: 03-24-2022 Pfizer COVID-19 Vac Bivalent 30 MCG/0.3ML Intramuscular Suspension Referring Provider Unknown VL-Ebakxjtmqy-OPY [facility] DO Work Phone: 12-14-2021 pneumococcal polysaccharide vaccine, 23 valent Mallorie Guardado RN [facility] 10-05-2021 Comirnaty 30 MCG/0.3 ML Intramuscular Suspension Referring Provider Unknown LG-Nrztypfuwq-EAP [facility] [address] DO Work Phone: 03-30-2021 Pfizer-BioNTech COVI D-19 Vacc 30 MCG/0.3ML Intramuscular Suspension Referring Provider Unknown DB-Wgenllbqgw-GQH [facility] [address] DO Work Phone: 08-12-2020 Pfizer-BioNTech COVI D-19 Vacc 30 MCG/0.3ML Intramuscular Suspension Referring Provider Unknown GX-Vnzjlqiiam-LIY [facility] DO Work Phone: 07-15-2020 Pfizer-BioNTech COVI D-19 Vacc 30 MCG/0.3ML Intramuscular Suspension Referring Provider Unknown ZA-Fleiplxsrc-XQM [facility] DO Work Phone: 03-31-2018 influenza, high dose seasonal, preservative-free Referring Provider Unknown OJ-Dpwsubnust-XON [facility] DO Work Phone: 04-05-2015 influenza, seasonal, injectable Referring Provider Unknown LZ-Vyjcphkidy-WTZ [facility] DO Work Phone: Payers Date Payer Category Payer Unknown [id number] 2019 Unknown [id number] 2005 Medicare MEDICARE MEDICAR E PART A & B [id number] 2005-Present [phone] [id number] [place] [address] [id number] 2005 Medicare [id number] 1940 Unknown [id number] 1940 Unknown [id number] 1940 Unknown [id number] 1940 Unknown [id number] 1940 Unknown [id number] 1940 Unknown [id number] 1940 Unknown [id number] 1940 Unknown [id number] 1940 Unknown [id number] 1940 Unknown [id number] Social History Date Type Detail Facility Tobacco smoking status 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 unknown [facility] Start: 1940 Sex Assigned At Not on file [facility] Start: 09-27-2021 Tobacco smoking status RIIS Never sm oked tobacco [facility] Start: 09-27-2021 Tobacco use and exposure Smokeless t obacco non-user [facility] Start: 10-08-2021 End: 01-26-2022 Alcohol intake Current drinker of alcohol (finding) [facility] Start: 09-27-2021 History SDOH Alcohol Comment Very Ra rley [facility] Start: 09-17-2021 End: 12-13-2021 Exposure to SARS-CoV-2 (event) Not sure [facility] Start: 09-27-2021 End: 01-26-2022 Cigarette pack-years [facility] Start: 01-26-2022 Tobacco use panel [facility] Start: 12-13-2021 Gender identity Identifies as male gender (finding) [facility] Start: 12-13-2021 Sexual orientation Heterosexual (fin ding) [facility] Medical Equipment Procedure Code Equipment Code Equipment Origin al Text Equipment Identifier Dates Closure 6fr Angioseal Vip - [id number] [facility] Start: 12-13-2021 Closure 5fr Vasc ular Mynx W/[employer] Analyst Min Order 10 - [id number] [facility] Start: 01-24-2022 Clinical Notes 09-16-2020 to 12-26-2022 Telephone Encounter - Rashida Saldaña TECHNOLOGIST - 12/26/2022 8:28 AM EDTTelephone Encounter - Rashida Saldaña TECHNOLOGIST - 12/26/2022 8:28 AM EDJessi Hill MA - 09/27/2021 3:03 PM EDT Note Date & Type Note Facility 12-26-2022 Telephone encounter Note Source:RF Prescription:Cilostazol 50mg Amount of medication:180 Refill:3 Recall: Sent to [facility]: Last appt:09/27/21 Next appt:return if symptoms worsen [facility] 12-26-2022 Miscellaneous Notes Source:RF Prescription:Cilostazol 50mg Amount of medication:180 Refill:3 Recall: Sent to [facility]: Last appt:09/27/21 Next appt:return if symptoms worsen documented in this encounter [facility] 11-05-2022 Telephone encounter Note Received refill request electronically via inbasket. Pt last seen 09/27/2021, F/u in PRN. Refilled Clopidogrel 75mg Daily #90 with 3. Rx sent to [facility] 11-05-2022 Miscellaneous Notes Received refill request electronically via inbasket. Pt last seen 09/27/2021, F/u in PRN. Refilled Clopidogrel 75mg Daily #90 with 3. Rx sent to [facility] documented in this encounter [facility] 01-28-2022 History of Present illness Narrative 82 yr old male CAD, CA s/p PCI x3 XU (2016), PAD s/p unsuccessful CERNER ANALYST to the left PT by Dr. 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 He has had infections a few times, that was treated with oral Abx, no pain, weekly debridement, prior graft placed and 3 mos wound vac with no adequate progress towards wound healing. Pt was refereed to us by his glassworker Dr. Elliot Gleason for assessment of PAD and possible intervention. Pt came to the office with his daughter Gwendolyn who is involved in his care and provider most of the information for this visit. She also helps Mr. Saha with wound care and managing his medication and overall healthcare. Pt reported he does not have any feeling in and around the left Achilles wound, he has had debridement of the wound and he has not felt anything, the site tends to bleed a lot and the wound usually has copious amount of yellowish thick drainage and a protruding tissue over the wound. He has been apply Aquacel Ag on the wound as instructed by his glassworker. He wears compression stocking, which he had on for this visit to help with the edema. He tries to elevate it but its difficult for him due to the spinal injury. He denies prior or routine workup for his heart, diabetes or kidney since he had CA. He reported was briefly in afib after taking Abx but once it was stopped returned to normal rhythm. He is not very ambulatory, uses wheelchair and walker to get around. Pt denies CP, SOB, palpitation, syncope,PND fever, chills or night sweats. MU-Etrwjbxdfb-Forwu [facility] Work Phone: 01-28-2022 History of Present illness Narrative 82 yr old male CAD, CA s/p PCI x3 XU (2015), PAD s/p unsuccessful CERNER ANALYST to the left PT by Dr. 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 He has had infections a few times, that was treated with oral Abx, no pain, weekly debridement, prior graft placed and 3 mos wound vac with no adequate progress towards wound healing. Pt was refereed to us by his glassworker Dr. Elliot Gleason for assessment of PAD and possible intervention. Pt came to the office with his daughter Gwendolyn who is involved in his care and provider most of the information for this visit. She also helps Mr. Saha with wound care and managing his medication and overall healthcare. Pt reported he does not have any feeling in and around the left Achilles wound, he has had debridement of the wound and he has not felt anything, the site tends to bleed a lot and the wound usually has copious amount of yellowish thick drainage and a protruding tissue over the wound. He has been apply Aquacel Ag on the wound as instructed by his glassworker. He wears compression stocking, which he had on for this visit to help with the edema. He tries to elevate it but its difficult for him due to the spinal injury. He denies prior or routine workup for his heart, diabetes or kidney since he had CA. He reported was briefly in afib after taking Abx but once it was stopped returned to normal rhythm. He is not very ambulatory, uses wheelchair and walker to get around. Pt denies CP, SOB, palpitation, syncope,PND fever, chills or night sweats. [facility] Work Phone: 01-28-2022 History of Present illness Narrative 82 yr old male CAD, CA s/p PCI x3 XU (2015), PAD s/p unsuccessful CERNER ANALYST to the left PT by Dr. 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 He has had infections a few times, that was treated with oral Abx, no pain, weekly debridement, prior graft placed and 3 mos wound vac with no adequate progress towards wound healing. Pt was refereed to us by his glassworker Dr. Elliot Gleason for assessment of PAD and possible intervention. Pt came to the office with his daughter Gwendolyn who is involved in his care and provider most of the information for this visit. She also helps Mr. Saha with wound care and managing his medication and overall healthcare. Pt reported he does not have any feeling in and around the left Achilles wound, he has had debridement of the wound and he has not felt anything, the site tends to bleed a lot and the wound usually has copious amount of yellowish thick drainage and a protruding tissue over the wound. He has been apply Aquacel Ag on the wound as instructed by his glassworker. He wears compression stocking, which he had on for this visit to help with the edema. He tries to elevate it but its difficult for him due to the spinal injury. He denies prior or routine workup for his heart, diabetes or kidney since he had CA. He reported was briefly in afib after taking Abx but once it was stopped returned to normal rhythm. He is not very ambulatory, uses wheelchair and walker to get around. Pt denies CP, SOB, palpitation, syncope,PND fever, chills or night sweats. DS-Gjhdmjwrid-MUW [facility] DO Work Phone: 10-08-2021 Note Addended by: JUAN WU on: 10/08/2021 08:45 PM Modules accepted: Orders [facility] 10-08-2021 Note Addended by: JUAN WU on: 10/08/2021 08:45 PM Modules accepted: Orders [facility] 10-08-2021 Miscellaneous Notes Addended by: JUAN WU on: 10/08/2021 08:45 PM Modules accepted: Orders Associated Problem(s): Nonhealing skin ulcer (HCC) Continue as per Dr. Gleason Associated Problem(s): PAD (peripheral artery disease) (HCC) Ascending We will see if he had formal noninvasive vascular testing recently, if not, we will repeat it and if it shows significant stenosis proximal to his wound that may be impacting wound healing, we will pursue invasive angiography. Continue aspirin and statin documented in this encounter [facility] 10-08-2021 Evaluation + Plan note Associated Problem(s): Nonhealing skin ulcer (HCC) Continue as per Dr. Gleason [facility] 10-08-2021 Evaluation + Plan note Associated Problem(s): PAD (peripheral artery disease) (HCC) Ascending We will see if he had formal noninvasive vascular testing recently, if not, we will repeat it and if it shows significant stenosis proximal to his wound that may be impacting wound healing, we will pursue invasive angiography. Continue aspirin and statin [facility] 10-04-2021 History of Present illness Narrative Peripheral Vascular Cardiology Clinic Consult Heart & Vascular [facility] 09/27/2021 Juan Wu MD [address] [address] Patient: Sara Saha Date of : 1940 (81 y.o.) Referring Provider: Elliot Gleason, DPM PCP: Antoni Wang MD Assessment & Plan PAD (peripheral artery disease) (HCC) Ascending We will see if he had formal noninvasive vascular testing recently, if not, we will repeat it and if it shows significant stenosis proximal to his wound that may be impacting wound healing, we will pursue invasive angiography. Continue aspirin and statin Nonhealing skin ulcer (HCC) Continue as per Dr. Gleason Follow-up: Return if symptoms worsen or fail to improve. Chief Complaint: Consult (Patient here due to wound on left leg for about 1 year, with medication list) Subjective History of Present Illness: Sara Saha is a 81 y.o. male who comes in today with his daughter for evaluation and a second opinion regarding possible peripheral arterial disease. He has had a wound on his left lower extremity for approximately 1 year. It is on the posterior aspect of his left lower calf. He does not have any issues of anterior tibial wounds. He denies any toe issues with wound healing or ischemic change. He has known history of coronary artery disease and has had a previous right coronary stent and follows with a local solutions manager. He previously saw vascular specialist also locally who did not feel any further evaluation was warranted. I was able to review records from his wound care glassworker to did some office testing suggesting tibial disease more distal to his wound. I am not sure if this was an official duplex or hand-held Doppler in the office. Objective Tobacco Use Smoking Status Never Smoker Smokeless Tobacco Never Used HOME Medications: Patient's Medications New Prescriptions No medications on file Previous Medications ACETAMINOPHEN (TYLENOL) 500 MG TABLET 500 mg daily as needed . ASPIRIN 81 MG EC TABLET Take 81 mg by mouth daily . ATORVASTATIN (LIPITOR) 80 MG TABLET Take 80 mg by mouth daily . FINASTERIDE (PROSCAR) 5 MG TABLET Take by mouth daily . GABAPENTIN (NEURONTIN) 100 MG CAPSULE Take 100 mg by mouth 2 (two) times a day . TIZANIDINE (ZANAFLEX) 2 MG TABLET TAKE 1 TABLET BY MOUTH TWICE DAILY NEEDED for muscle spasicity Modified Medications No medications on file Discontinued Medications No medications on file Vital Signs: BP (!) 142/80 (BP Location: Left arm, Patient Position: Sitting, BP Cuff Size: Adult) Pulse (!) 58 Ht 5' 9 Wt 91.2 kg (201 lb) SpO2 97% BMI 29.68 kg/m Physical Exam Constitutional: Appearance: Normal appearance. He is well-developed. He is not toxic-appearing. HENT: Head: Normocephalic and atraumatic. Right Ear: Hearing and external ear normal. Left Ear: Hearing and external ear normal. Nose: Nose normal. Eyes: General: Lids are normal. Conjunctiva/sclera: Conjunctivae normal. Pupils: Pupils are equal, round, and reactive to light. Neck: Vascular: No carotid bruit. Cardiovascular: Rate and Rhythm: Normal rate and regular rhythm. Pulses: Normal pulses. Heart sounds: S1 normal and S2 normal. Murmur heard. Systolic murmur is present. Comments: No cyanosis, clubbing or edema Pulmonary: Effort: Pulmonary effort is normal. Breath sounds: Normal breath sounds. Musculoskeletal: General: Normal range of motion. Cervical back: Normal range of motion. Comments: Left lower extremity wrapped, no wounds on his toes. Skin: General: Skin is warm and dry. Neurological: Mental Status: He is alert and oriented to person, place, and time. Psychiatric: Behavior: Behavior normal. Thought Content: Thought content normal. Judgment: Judgment normal. No results found for: CHOL, LDLCALC, LDLDIRECT, TRIG, HDL Review of Systems Constitutional: Positive for malaise/fatigue. Negative for diaphoresis, weight gain and weight loss. HENT: Negative for hearing loss, nosebleeds and tinnitus. Eyes: Positive for blurred vision and visual disturbance. Cardiovascular: Positive for claudication, irregular heartbeat and leg swelling. Negative for chest pain, cyanosis, dyspnea on exertion, near-syncope, orthopnea, palpitations, paroxysmal nocturnal dyspnea and syncope. Respiratory: Negative for hemoptysis, shortness of breath and snoring. Endocrine: Negative for cold intolerance and heat intolerance. Hematologic/Lymphatic: Bruises/bleeds easily. Skin: Positive for poor wound healing. Negative for flushing and rash. Musculoskeletal: Positive for muscle cramps. Negative for back pain, muscle weakness and myalgias. Gastrointestinal: Negative for abdominal pain, change in bowel habit, melena, nausea and vomiting. Genitourinary: Negative for decreased libido and hematuria. Neurological: Positive for numbness. Negative for loss of balance. Psychiatric/Behavioral: Negative for memory loss. The patient is nervous/anxious. documented in this encounter [facility] 01-04-2021 Note HNO ID: [id number] Author: Cole Neves MD Service: ? Author Type: Physician Type: Progress Notes Filed: 01/04/2021 2:37 PM Note Text: Virtual Visit - TELEPHONE Pt consented to a phone encounter People present : Dr. Neves and Patient Time Spent for call, record review and documentation: 20 minutes DATE OF SURGERY/PROCEDURE:??09/19/2020 SURGEON: ?Cole Neves M.D. SURGERY/PROCEDURE: ?C3 and C4 laminectomy with C3-C4 posterior instrumented fusion ? Neck pain: no Weakness: no Arm pain: no Arm numbness: no Imbalance: yes, but much improved Hand dexterity loss: no 4 mos out walking improved, now able to walk w walker. very pleased no symptoms d/c'd from PT A/P 4 mos out Doing great RTC PRN Cole Neves MD [facility] 11-03-2020 Note HNO ID: [id number] Author: Curtis Fragoso PA-C Service: ? Author Type: Physician Head Animal Trainer Type: Progress Notes Filed: 11/03/2020 1:44 PM Note Text: SPINE SURGERY FOLLOW-UP DATE OF SURGERY/PROCEDURE: 09/19/2020 SURGEON: Cole Neves M.D. SURGERY/PROCEDURE: C3 and C4 laminectomy with C3-C4 posterior instrumented fusion HPI: 6 week post-op Doing well Improvement in his walking, uses a walker, better than before surgery No neck pain at this time He is home living with his daughter, PT/OT/Home Care 2-3 x week Exam: Incision is well-healed Motor: 10/26 SILT Assessment/Plan: 6 weeks s/p C3-4 laminectomy/fusion ? Doing well ? Continue PT/OT ? Encouraged walking/ambulation ? Follow-up 6 months PIETER Robles MD [facility] 11-01-2020 History of Present illness Narrative 82 yr old male CAD, CA s/p PCI x3 XU (2016), spinal cord injury to cervical spine fusion of C3 and C4 with decompression 2 years ago, the wound started 2 years ago while in the hospital. and has not heeled since, He has had infections a few times, no pain, weekly debridement, graft placed, no feeling no sensation, Aquacel silver 3 mos wound vac, large yellowish drainage, hyperkeratinized, he has been treated with Augmentin. Last visit was Saturday. He has loss of sensation in and around the wound, diminished sensation of the foot and lower legs worse on the plantar surface. redness at the ankle, left toes are purple in color, +2 b/l edema, wares compression stockings, decreased motor function foot, unable to move the toes individually or together in the left, the right there movement and intact sensation.he comes with his daughter Gwendolyn [id number] Florencia Conrad [address] DO Work Phone: 09-23-2020 Note HNO ID: [id number] Author: Tabby ChaconRn) HODA Valenzuela Service: Care Management Author Type: Registered Nurse Type: Care Mgt Progress Note Filed: 09/23/2020 7:51 AM Note Text: CARE MANAGEMENT DISCHARGE NOTE SERVICE DATE: 09/23/2020 SERVICE TIME: 7:49 AM LOS: 7 days Admission Date: 09/16/2020 DISCHARGE ARRANGEMENT (list agency and phone number) Discharge Arrangement: Acute rehab Provider Name: [facility] [place] Phone: Nurse to Nurse report #: [phone] CAREGIVER ASSESSMENT: Caregiver is ready, willing and able to meet the patient's needs as recommended by the inter-professional team:: Yes Does the patient have an acute stroke diagnosis, or has the patient had a stroke during this admission?: No Patient's transition needs and plan for meeting these needs: [place] HANDOFF COMMUNICATION: Handoff to: Primary Care Physician (d/c instructions reviewed with patient by bedside nurse. Summary of care sent to PCP and AR.) Primary Care Physician Name/Phone: Dr. Larios [phone] TRANSPORTATION ARRANGEMENTS: Transportation Arrangements: Ambulance/[facility] Agency and Phone #:: [facility] [phone] Date of Trip: 09/23/20 Time of Trip: 0900 Type of Service: BLS Non-emergency Is Patient Medicaid Pending?: No Discussion of financial coverage occurred with: Patient;Family Meter Record Clerk Location: Main [place] Destination: [facility] Financial Care Management Responsibility: None IMM Follow Up Copy Given: No Reason: Acute Rehab D/C today to [facility] [place] via [facility] transportation @ 9:00am as agreed upon by patient, medical team, AR. Report # provided and nurse aware. Chart envelope updated on inpatient rack. D/C instructions sent to AR via [facility]. D/C summary sent to AR via [facility]. SIGNATURE: Tabby Valenzuela RN PATIENT NAME: Sara Saha DATE: September 23, 2020 TIME: 7:49 AM PAGER/CONTACT #: [phone] [facility] 09-22-2020 Note HNO ID: [id number] Author: Tabby ChaconRn) HODA Valenzuela Service: Care Management Author Type: Registered Nurse Type: Care Mgt Initial Assessment Filed: 09/22/2020 10:19 AM Note Text: CARE MANAGEMENT PROGRESS NOTE SERVICE DATE: 09/22/2020 SERVICE TIME: 10:16 AM LOS: 6 days Needs Prior to Discharge: Ready for Discharge D/C ready. [facility] [place] @9am via [facility] transportation. tasked [facility] for transport today if possible. Will follow for d/c planning needs. SIGNATURE: Tabby Valenzuela RN PATIENT NAME: Sara Saha DATE: September 22, 2020 TIME: 10:16 AM PAGER/CONTACT #: [phone] [facility] 09-22-2020 Note HNO ID: [id number] Author: Aj Hernandez Service: Neurosurgery Author Type: Physician Head Animal Trainer Type: Progress Notes Filed: 09/22/2020 9:36 AM Note Text: SERVICE DATE: 09/22/2020 SERVICE TIME: 9:36 AM SPINE SURGERY TEAM PROGRESS NOTE After 4 PM (1600) please page Zan Waite PA-C [phone]. After 1800, and weekends please page [phone]. Attending: Dr. Cole Neves Location: H060 [id number]/[id number] Hospital Day: 6 09/19/2020 1 Day Post-Op S/P: C3-4 decompression and fusion MEDICATIONS: Current medications and allergies reviewed. Recommended/planned medication changes discussed in detail in the A/P section below. INTERVAL HPI (Subjective): is a 80 year old male who reports pain is controlled, and denies bleeding, drainage, nausea, vomiting, chest pain, shortness of breath, swelling, calf pain, constipation, numbness, tingling, parasthesias and worsening pain. Overnight events noted: none. Not delirious or confused. Doing well. Bowel / Bladder dysfunction: No OBJECTIVE: LABS: CBC: Recent Labs 09/22/20 0629 09/21/20 0419 09/20/20 1344 09/18/20 0845 09/17/20 0922 09/17/20 0922 09/16/20 0654 09/16/20 0654 WBC 6.84 8.97 9.33 4.80 -- 5.91 -- 6.08 HB 9.5* 8.6* 10.2* 11.5* -- 12.6* -- 12.1* HCT 29.3* 27.0* 32.4* 34.6* -- 37.7* -- 37.2* PLT 284 238 238 242 -- 213 -- 188 MCV 94.5 93.8 95.0 91.8 < > 90.8 < > 91.9 RDWCV 14.2 14.3 14.2 14.1 < > 14.0 < > 14.3 NEUTP -- -- -- 68.5 -- 73.3 -- 64.8 ABSNEUT -- -- -- 3.29 -- 4.33 -- 3.94 LYMPHP -- -- -- 13.1 -- 10.7 -- 16.3 MONOP -- -- -- 16.5 -- 14.7 -- 16.4 EODINP -- -- -- 1.7 -- 1.0 -- 2.3 < > = values in this interval not displayed. COAG: Recent Labs 09/18/20 0845 09/17/20 0922 09/16/20 0654 APTT -- -- 28.6 INR 1.0 1.0 1.0 BMP: Recent Labs 09/22/20 0609/21/2041809/20/20 1344 09/18/20 0845 09/17/20 0922 09/16/20 0654 GLUC 88 85 104* 74 76 83 NA 137 135* 136 139 135* 139 K 4.3 3.9 4.3 4.3 4.5 4.1 CHLOR 102 107* 102 102 100 101 CO2 24 18* 26 26 21* 29 ANION 11 10 8* 11 14 9 BUN 23 14 17 20 15 19 CREAT 0.75 0.57* 0.66* 0.64* 0.55* 0.66* CHEM: Recent Labs 09/22/2062809/21/2041809/20/20 1345 09/20/20 1344 09/18/20 0845 09/17/20 0922 09/16/20 0654 ALB 3.1* 2.7* -- 3.5* 3.4* 3.7* 3.9 TPROT 6.1* 5.4* -- 6.5 6.6 7.4 7.3 CA 8.3* 7.3* -- 8.2* 8.6 8.9 9.0 MG -- -- 2.2 -- 2.1 2.0 2.1 P -- -- -- -- 3.4 3.1 3.2 HEPATIC: Recent Labs 09/22/20 0629 09/21/20 0419 09/20/20 1344 09/18/20 0845 09/17/20 0922 09/16/20 0654 ALKPHOS 129* 110 129* 142* 161* 165* ALT 53 35 40 56* 76* 88* AST 52* 33 30 35 50* 75* TBILI 0.8 0.7 1.0 1.0 1.1 1.1 URINALYSIS: Recent Labs 09/19/20 0930 09/16/20 0702 PH 7.41 -- SPGR -- 1.012 UGLUC -- Negative UBILI -- Negative UKET -- Negative UHB -- 1+* UPROT -- Negative UWBC -- 0-5 LEUKEST -- Negative CARDIAC: Recent Labs 09/16/20 0654 CKMBP 3.7 TROPT 0.010 HbA1C: No results found for: HBA1C CRP: No results found for: CRP ESR: No results found for: WSR Blood Glucose Checks: Lab Results Component Value Date PCGLUCOSE 119 (A) 09/18/2020 PCGLUCOSE 90 09/18/2020 Vitamin D: No results found for: VITD25 CULTURES: N/A Estimated Creatinine Clearance: 89.4 mL/min (based on SCr of 0.75 mg/dL). 09/21/20213609/21/205 09/22/20 0638 09/22/20 0904 BP: (!) 101/40 113/51 115/58 Pulse: (!) 57 61 64 Resp: Temp: 36.7 ?C (98.1 ?F) 37.3 ?C (99.2 ?F) TempSrc: Oral Oral Oral SpO2: 91% 95% 95% 97% Weight: Height: NAD Alert, Oriented to Person, Place, Time EOMI PERRL Cranial nerves II-XII grossly intact No Drift DTR's intact EXT: No edema, pulses intact Motor: RUE: D 5/5, B 5/5, T 5/5, G 5/5, HI 5/5 LUE: D 5/5, B 5/5, T 5/5, G 5/5, HI 5/5 RLE: HF 5/5, KE 5/5, KF 5/5, DF 5/5, PF 5/5 EHL 4/5 LLE: HF 5/5, KE 5/5, KF 5/5, DF 5/5, PF 5/5 EHL 4/5 SILT globally Incision: Clean, dry , intact LUNGS:CTAB CVS:RRR, no Murmurs ABD:+BS, ND, NT QUALITY CHECKLIST: Lines, Drains, and Airways Line Peripheral 09/18/20 0310 Short Left Hand 22 Gauge 4 days Peripheral 09/19/20 1203 Assessment Short Right Wrist 16 Gauge 2 days Drain Drain/Tube 09/19/20 1018 Hemovac Right Posterior Neck 2 days Reviewed lines and needs to be continued: REASONS: Intravenous fluids and Intravenous antibiotics Current restraint orders: None Assessment AND Plan Active Hospital Problems as of 09/22/2020 Noted - Resolved Neurology Post-op pain 09/20/2020 - Present Cardiovascular Atrial fibrillation (HCC) Unknown - Present Coronary artery disease Unknown - Present Hyperlipidemia Unknown - Present Musculoskeletal * (Principal) Anterolisthesis 09/16/2020 - Present Current Assessment AND Plan Assessment: C3-C4 spondylolisthesis and stenosis. POA PLAN: Pain control continue-minimize narcotics Do not remove dressing Remove drain today PT/O (more content not included)... [facility] 09-21-2020 Note HNO ID: [id number] Author: Aj Hernandez Service: Neurosurgery Author Type: Physician Head Animal Trainer Type: Progress Notes Filed: 09/21/2020 11:42 AM Note Text: SERVICE DATE: 09/21/2020 SERVICE TIME: 11:42 AM SPINE SURGERY TEAM PROGRESS NOTE After 4 PM (1600) please page Zan Waite PA-C [phone]. After 1800, and weekends please page [phone]. Attending: Dr. Cole Neves Location: H060 025/H060 Hospital Day: 6 09/19/2020 1 Day Post-Op S/P: C3-4 decompression and fusion MEDICATIONS: Current medications and allergies reviewed. Recommended/planned medication changes discussed in detail in the A/P section below. INTERVAL HPI (Subjective): is a 80 year old male who reports pain is controlled, and denies bleeding, drainage, nausea, vomiting, chest pain, shortness of breath, swelling, calf pain, constipation, numbness, tingling, parasthesias and worsening pain. Overnight events noted: none. Delirium but resolved this morning. No new complaints. Bowel / Bladder dysfunction: No OBJECTIVE: LABS: CBC: Recent Labs 09/21/20 04109/20/20 1344 09/18/20 0845 09/17/20 0922 09/16/20 0654 09/16/20 0654 WBC 8.97 9.33 4.80 5.91 -- 6.08 HB 8.6* 10.2* 11.5* 12.6* -- 12.1* HCT 27.0* 32.4* 34.6* 37.7* -- 37.2* PLT 238 238 242 213 -- 188 MCV 93.8 95.0 91.8 90.8 < > 91.9 RDWCV 14.3 14.2 14.1 14.0 < > 14.3 NEUTP -- -- 68.5 73.3 -- 64.8 ABSNEUT -- -- 3.29 4.33 -- 3.94 LYMPHP -- -- 13.1 10.7 -- 16.3 MONOP -- -- 16.5 14.7 -- 16.4 EODINP -- -- 1.7 1.0 -- 2.3 < > = values in this interval not displayed. COAG: Recent Labs 09/18/20 0845 09/17/20 0922 09/16/20 0654 APTT -- -- 28.6 INR 1.0 1.0 1.0 BMP: Recent Labs 09/21/20 0419 09/20/20 1344 09/18/20 0845 09/17/20 0922 09/16/20 0654 GLUC 85 104* 74 76 83 NA 135* 136 139 135* 139 K 3.9 4.3 4.3 4.5 4.1 CHLOR 107* 102 102 100 101 CO2 18* 26 26 21* 29 ANION 10 8* 11 14 9 BUN 14 17 20 15 19 CREAT 0.57* 0.66* 0.64* 0.55* 0.66* CHEM: Recent Labs 09/21/20 0419 09/20/20 1345 09/20/20 1344 09/18/20 0845 09/17/20 0922 09/16/20 0654 ALB 2.7* -- 3.5* 3.4* 3.7* 3.9 TPROT 5.4* -- 6.5 6.6 7.4 7.3 CA 7.3* -- 8.2* 8.6 8.9 9.0 MG -- 2.2 -- 2.1 2.0 2.1 P -- -- -- 3.4 3.1 3.2 HEPATIC: Recent Labs 09/21/20 0419 09/20/20 1344 09/18/20 0845 09/17/20 0922 09/16/20 0654 ALKPHOS 110 129* 142* 161* 165* ALT 35 40 56* 76* 88* AST 33 30 35 50* 75* TBILI 0.7 1.0 1.0 1.1 1.1 URINALYSIS: Recent Labs 09/19/20 0930 09/16/20 0702 PH 7.41 -- SPGR -- 1.012 UGLUC -- Negative UBILI -- Negative UKET -- Negative UHB -- 1+* UPROT -- Negative UWBC -- 0-5 LEUKEST -- Negative CARDIAC: Recent Labs 09/16/20 0654 CKMBP 3.7 TROPT 0.010 HbA1C: No results found for: HBA1C CRP: No results found for: CRP ESR: No results found for: WSR Blood Glucose Checks: Lab Results Component Value Date PCGLUCOSE 119 (A) 09/18/2020 PCGLUCOSE 90 09/18/2020 Vitamin D: No results found for: VITD25 CULTURES: N/A Estimated Creatinine Clearance: 117.7 mL/min (A) (based on SCr of 0.57 mg/dL (L)). 09/21/20 0051 09/21/20 0621 09/21/20 0626 09/21/20 0915 BP: 112/65 140/68 113/53 Pulse: 68 (!) 57 66 (!) 52 Resp: 16 17 16 18 Temp: 36.8 ?C (98.3 ?F) 36.8 ?C (98.2 ?F) 36.7 ?C (98 ?F) 36.6 ?C (97.9 ?F) TempSrc: Oral Oral Oral Axillary SpO2: 98% 97% 99% 97% Weight: 95.3 kg (210 lb 1.6 oz) Height: NAD Alert, Oriented to Person, Place, Time EOMI PERRL Cranial nerves II-XII grossly intact No Drift DTR's intact EXT: No edema, pulses intact Motor: RUE: D 5/5, B 5/5, T 5/5, G 5/5, HI 5/5 LUE: D 5/5, B 5/5, T 5/5, G 5/5, HI 5/5 RLE: HF 5/5, KE 5/5, KF 5/5, DF 5/5, PF 5/5 EHL 4/5 LLE: HF 5/5, KE 5/5, KF 5/5, DF 5/5, PF 5/5 EHL 4/5 SILT globally Incision: Clean, dry , intact LUNGS:CTAB CVS:RRR, no Murmurs ABD:+BS, ND, NT QUALITY CHECKLIST: Lines, Drains, and Airways Line Peripheral 09/18/20 0310 Short Left Hand 22 Gauge 3 days Peripheral 09/19/20 1203 Assessment Short Right Wrist 16 Gauge 1 day Drain Drain/Tube 09/19/20 1018 Hemovac Right Posterior Neck 2 days Reviewed lines and needs to be continued: REASONS: Intravenous fluids and Intravenous antibiotics Current restraint orders: None Assessment AND Plan Active Hospital Problems as of 09/21/2020 Noted - Resolved Neurology Post-op pain 09/20/2020 - Present Cardiovascular Atrial fibrillation (HCC) Unknown - Present Coronary artery disease Unknown - Present Hyperlipidemia Unknown - Present Musculoskeletal * (Principal) Anterolisthesis 09/16/2020 - Present Current Assessment AND Plan Assessment: C3-C4 spondylolisthesis and stenosis. POA PLAN: Pain control continue-minimize narcotics Do not remove dressing Monitor drain output XR today if able PT/OT/PMR-AR Incentive Spirometer 10-15 times every hour instructed No central lines Mobilize QID (more content not included)... [facility] 09-21-2020 Note HNO ID: [id number] Author: Karena Vora (Sw) Service: Care Management Author Type: Music Leader Type: Care Mgt Progress Note Filed: 09/21/2020 10:58 AM Note Text: CARE MANAGEMENT PROGRESS NOTE SERVICE DATE: 09/21/2020 SERVICE TIME: 9:59 AM LOS: 5 days Patient has been accepted to [facility]'s Acute Rehab. Plan for d/c tomorrow pending transport availability. [facility] tasked to assist with scheduling long distance transport. Nurse report can be called to [phone] Addendum 10:52 AM Referrals sent to the following transport companies with the following results: [facility] - available to provide trip Saturday at 0900 [facility] - Please try back tomorrow for availability 14/[facility] - unable to accept patient [facility] - unable to accept patient [facility], [facility] - unable to accept patient [facility] - No response as of 1055 Trip scheduled for Saturday at 0900 with [facility]. Facility and patient's family updated. Floor CM will continue to follow. SIGNATURE: RAKAN Wiley PATIENT NAME: Sara Saha DATE: September 21, 2020 TIME: 9:59 AM PAGER/CONTACT #: [phone] [facility] 09-20-2020 Note HNO ID: [id number] Author: Karena Vora (Sw) Service: Care Management Author Type: Music Leader Type: Care Mgt Progress Note Filed: 09/20/2020 3:42 PM Note Text: CARE MANAGEMENT PROGRESS NOTE SERVICE DATE: 09/20/2020 SERVICE TIME: 3:40 PM LOS: 4 days [place] of Choice Given: Yes Level of Care Discussed: Inpatient Rehab Facility Financial Disclosure Provided: Yes Provider List: Rehab Facility Provider list within the patient's requested geographic area shared with the patient/family: Yes within: 25 miles (As well and [place] connected facilities) of zip code: [address] met with patient and his daughter Arti at bedside and discussed FOC. Patient selected [facility]'s acute rehab. Referral tasked to [facility], awaiting acceptance. No precert required. D/c transport will need to be arranged. SW will continue to follow. SIGNATURE: RAKAN Wiley PATIENT NAME: Sara Saha DATE: September 20, 2020 TIME: 3:40 PM PAGER/CONTACT #: [phone] [facility] 09-20-2020 Note HNO ID: [id number] Author: Aj Hernandez Service: Neurosurgery Author Type: Physician Head Animal Trainer Type: Progress Notes Filed: 09/20/2020 10:54 AM Note Text: SERVICE DATE: 09/20/2020 SERVICE TIME: 10:54 AM SPINE SURGERY TEAM PROGRESS NOTE After 4 PM (1600) please page Zan Waite PA-C [phone]. After 1800, and weekends please page [phone]. Attending: Dr. Cole Neves Location: [facility] [id number]/[id number] Hospital Day: 5 09/19/2020 1 Day Post-Op S/P: C3-4 decompression and fusion MEDICATIONS: Current medications and allergies reviewed. Recommended/planned medication changes discussed in detail in the A/P section below. INTERVAL HPI (Subjective): is a 80 year old male who reports pain is controlled, and denies bleeding, drainage, nausea, vomiting, chest pain, shortness of breath, swelling, calf pain, constipation, numbness, tingling, parasthesias and worsening pain. Overnight events noted: none. Able to flex LE and lift LLE since sx improved. Bowel / Bladder dysfunction: No OBJECTIVE: LABS: CBC: Recent Labs 09/18/20 0845 09/17/20 0922 09/16/20 0654 WBC 4.80 5.91 6.08 HB 11.5* 12.6* 12.1* HCT 34.6* 37.7* 37.2* PLT 242 213 188 MCV 91.8 90.8 91.9 RDWCV 14.1 14.0 14.3 NEUTP 68.5 73.3 64.8 ABSNEUT 3.29 4.33 3.94 LYMPHP 13.1 10.7 16.3 MONOP 16.5 14.7 16.4 EODINP 1.7 1.0 2.3 COAG: Recent Labs 09/18/20 0845 09/17/20 0922 09/16/20 0654 APTT -- -- 28.6 INR 1.0 1.0 1.0 BMP: Recent Labs 09/18/20 0845 09/17/20 0922 09/16/20 0654 GLUC 74 76 83 NA 139 135* 139 K 4.3 4.5 4.1 CHLOR 102 100 101 CO2 26 21* 29 ANION 11 14 9 BUN 20 15 19 CREAT 0.64* 0.55* 0.66* CHEM: Recent Labs 09/18/20 0845 09/17/20 0922 09/16/20 0654 ALB 3.4* 3.7* 3.9 TPROT 6.6 7.4 7.3 CA 8.6 8.9 9.0 MG 2.1 2.0 2.1 P 3.4 3.1 3.2 HEPATIC: Recent Labs 09/18/20 0845 09/17/20 0922 09/16/20 0654 ALKPHOS 142* 161* 165* ALT 56* 76* 88* AST 35 50* 75* TBILI 1.0 1.1 1.1 URINALYSIS: Recent Labs 09/19/20 0930 09/16/20 0702 PH 7.41 -- SPGR -- 1.012 UGLUC -- Negative UBILI -- Negative UKET -- Negative UHB -- 1+* UPROT -- Negative UWBC -- 0-5 LEUKEST -- Negative CARDIAC: Recent Labs 09/16/20 0654 CKMBP 3.7 TROPT 0.010 HbA1C: No results found for: HBA1C CRP: No results found for: CRP ESR: No results found for: WSR Blood Glucose Checks: Lab Results Component Value Date PCGLUCOSE 119 (A) 09/18/2020 PCGLUCOSE 90 09/18/2020 Vitamin D: No results found for: VITD25 CULTURES: N/A Estimated Creatinine Clearance: 106 mL/min (A) (based on SCr of 0.64 mg/dL (L)). 09/19/20210809/20/20 0100 09/20/20 0530 09/20/20 0908 BP: (!) 93/42 100/54 111/55 (!) 111/48 Pulse: (!) 56 (!) 59 61 Resp: 17 18 17 Temp: 36.5 ?C (97.7 ?F) 36.6 ?C (97.9 ?F) 36.9 ?C (98.4 ?F) TempSrc: Oral Oral Oral SpO2: 95% 95% Weight: Height: NAD Alert, Oriented to Person, Place, Time EOMI PERRL Cranial nerves II-XII grossly intact No Drift DTR's intact EXT: No edema, pulses intact Motor: RUE: D 5/5, B 5/5, T 5/5, G 5/5, HI 5/5 LUE: D 5/5, B 5/5, T 5/5, G 5/5, HI 5/5 RLE: HF 5/5, KE 5/5, KF 5/5, DF 5/5, PF 5/5 EHL 4/5 LLE: HF 5/5, KE 5/5, KF 5/5, DF 5/5, PF 5/5 EHL 4/5 SILT globally Incision: Clean, dry , intact LUNGS:CTAB CVS:RRR, no Murmurs ABD:+BS, ND, NT QUALITY CHECKLIST: Lines, Drains, and Airways Line Peripheral 09/18/20 0310 Short Left Hand 22 Gauge 2 days Peripheral 09/19/20 1203 Assessment Short Right Wrist 16 Gauge <1 day Drain Drain/Tube 09/19/20 1018 Hemovac Right Posterior Neck 1 day Reviewed lines and needs to be continued: REASONS: Intravenous fluids and Intravenous antibiotics Current restraint orders: None Assessment AND Plan Active Hospital Problems as of 09/20/2020 Noted - Resolved Neurology Post-op pain 09/20/2020 - Present Current Assessment AND Plan Assessment: Acute post-operative pain PLAN: Pain control continue present analgesic regimen Monitor Cardiovascular Atrial fibrillation (HCC) Unknown - Present Current Assessment AND Plan Assessment: POA--Cardiology consulted d/t bigeminy noted by anesthesia intra-op PLAN: Tele Replete K+ and Mg Cards following Coronary artery disease Unknown - Present Current Assessment AND Plan Assessment: POA status post PCI PLAN: Resume Plavix POD # 7 Hyperlipidemia Unknown - Present Musculoskeletal * (Principal) Anterolisthesis 09/16/2020 - Present Current Assessment AND Plan Assessment: C3-C4 spondylolisthesis and stenosis. POA PLAN: Pain control continue present analgesic regimen Do not remove dressing Monitor drain output XR POD 2 PT/OT Incentive Spirometer 10-15 times every hour instructed No central lines Mobilize QID OOB w/ assistance DVT ppx: IPCs, SQH 5,000 units q12h POD 2 Urinary Catheter: DC today Discharge: Dispo to [place] D/w Dr. Neves Psychiatry (more content not included)... [facility] 09-19-2020 Note HNO ID: [id number] Author: Olivier (Sabina) Juan Service: Orthopaedic Surgery Author Type: Resident Type: Plan of Care Filed: 09/19/2020 12:09 PM Note Text: ORTHOPAEDIC SURGERY: POSTOPERATIVE EXAMINATION PATIENT NAME: Sara Saha Attending: Dr. Cole Neves A/P: 80 year old yo male s/p C3-4 decompression and fusion w/ Dr. Cole Neves on 09/19/20. Orthopaedics returns to bedside for postoperative examination. Physical Exam: Gen: awake, alert, converses appropriately, NAD Resp: Unlabored on NC, no wheeze Cardio: regular rate to peripheral palpation Upper Extremities UE Arm Abduction Arm Flexion Arm Extension Wrist Ext Wrist Flex [employer] Analyst HI R 5 5 4+ 5 5 5 5 L 4 5 4+ 5 5 5 5 +2 radial pulse Lower Extremities LE Hip Flex Knee Flex Knee Extend Plantarflex Dorsiflex EHL R 5 5 5 5 5 4+ L 5 5 5 5 4+ 4 +2 dorsalis pedis pulse Dressing c/d/i, drain x1 to suction with bloody output Plan: - Activity: WBAT, no heavy bending lifting or twisting - Drain x 1, continue to monitor output - Antibiotics x 24 hrs periop - Upright Xrays POD2 - Marino: remove POD1 - Pain - PO and IV breakthrough - DVT prophylaxis - SCDs; Cardiology recommends heparin gtt postoperatively with eventual plan to transition to DOAC vs Plavix. To discuss with Dr. Neves - Cardiology consulted preoperatively and requested to follow postoperatively. Per anesthesia, patient was in bigeminy during case - PT/OT, appreciate recs for discharge Olivier Martinez MD, PGY-1 Orthopaedic Surgery p:[phone] If after 6PM and before 6AM OR on Weekends OR for Emergent needs, please page [phone] ([phone]) [facility] 09-19-2020 Note HNO ID: [id number] Author: Karena Vora (Sw) Service: Care Management Author Type: Music Leader Type: Care Mgt Progress Note Filed: 09/19/2020 10:46 AM Note Text: CARE MANAGEMENT PROGRESS NOTE SERVICE DATE: 09/19/2020 SERVICE TIME: 10:40 AM LOS: 3 days Plan for OR today. Therapy evals post op for d/c planning. No precert need if skilled for a facility. KRISTAL will continue to follow. SIGNATURE: RAKAN Wiley PATIENT NAME: Sara Saha DATE: September 19, 2020 TIME: 10:40 AM PAGER/CONTACT #: [phone] [facility] 09-19-2020 Note HNO ID: [id number] Author: Olivier Martinez Service: Orthopaedic Surgery Author Type: Resident Type: Plan of Care Filed: 09/19/2020 7:41 AM Note Text: Orthopaedic Surgery: Plan of Care Note Preoperative Exam: Upper Extremities UE Arm Abduction Arm Flexion Arm Extension Wrist Ext Wrist Flex [employer] Analyst HI R 5 5 4+ 5 5 5 5 L 4 5 4+ 5 5 5 5 Endorses numbness in fingers and hands, otherwise sensation to light touch intact to bilateral upper extremities +2 radial pulse Lower Extremities LE Hip Flex Knee Flex Knee Extend Plantarflex Dorsiflex EHL R 5 5 5 5 5 4+ L 5 5 5 5 4+ 4 Sensation to light touch intact to bilateral lower extremities +2 dorsalis pedis pulse Olivier Martinez MD, PGY-1 Orthopaedic Surgery p:[phone] After 5pm or on weekends, or if urgent and unable to reach, please page [phone]) [facility] 09-18-2020 Note HNO ID: [id number] Author: Keanu Leary MD Service: Neurosurgery Author Type: Resident Type: Plan of Care Filed: 09/18/2020 1:07 PM Note Text: Neurosurgery Plan of Care Assessment/Plan -Will move OR date to 09/19 due to new availability -NPO at midnight -Pre-op labs already completed (covid/typescreen from 09/16) Keanu Leary MD PGY-2, Neurological Surgery Pager: [phone] 1:07 PM 09/18/20 Please page [phone] after 6pm [facility] 09-18-2020 Note HNO ID: [id number] Author: Keanu Leary MD Service: Neurosurgery Author Type: Resident Type: Progress Notes Filed: 09/18/2020 10:16 AM Note Text: Neurosurgery Inpatient Progress Note Interval HPI: NAEON. Neuro strength overall stable. Patient with continued visual hallucinations. Reports seeing a singing cowboy in the room while examining patient. Objective: 09/17/20 2136 09/18/20 0112 09/18/20 0627 09/18/20 1005 BP: 99/70 123/65 128/69 114/51 Pulse: 60 65 62 (!) 52 Resp: 17 17 16 18 Temp: 36.6 ?C (97.9 ?F) 36.7 ?C (98.1 ?F) 36.3 ?C (97.3 ?F) 36.5 ?C (97.7 ?F) TempSrc: Oral Oral Axillary Axillary SpO2: 95% 97% 95% 95% EXAM: AAOx3, NAD RUE (prior rotator cuff injury): D 5/5, B 5/5, T 5/5, HG 5/5, IO 5/5 LUE (prior rotator cuff injury): D 4+/5, B 5/5, T 5/5, HG 5/5, IO 5/5 RLE: HF 5/5, KE 5/5, DF 5/5, PF 5/5, EHL 4+/5 LLE: HF 5/5, KE 5/5, DF 4+/5, PF 5/5, EHL 4-/5 ? Sensation intact to light touch ? A/P: 80 year old male with PMH significant for HTN, HLD, CAD c/b CA s/p stents in 2016 (on DAPT), PAD, pAF, presenting with one week of increased difficulty walking, 3-4 months of trouble holding objects. He presented to an OSH where CTA head/neck demonstrated anterolisthesis of C3 on C4, and MRI cervical spine demonstrated the same anterolisthesis of C3 on C4 with resultant canal stenosis. - Neuro as above, stable - Medicine recs: acceptable risk for proposed procedure. Trend LFTs and INR. LFTs downtrending - Cards c/s: Recommend starting full dose AC post-op when okay from surgical standpoint. Otherwise no additional testing needed - Plan for OR 09/20 - CT C spine completed - Patient with continued hallucinations, on pramipexole as well. Will c/s psychiatry for recs regarding possible adverse interaction with antipsych meds - SCDs, SQH - Mobilize - PTOT Keanu Leary MD PGY-2, Neurological Surgery Pager: [phone] 10:14 AM 09/18/20 Please page [phone] after 6pm [facility] 09-18-2020 Note HNO ID: [id number] Author: Sylvia ChaconRn) HODA Castillo Service: Nursing Author Type: Registered Nurse Type: Nursing Progress Note Filed: 09/17/2020 11:13 PM Note Text: patient refuses to wear IPC's stockings. Team notified. Patient educated about prevention [facility] 09-17-2020 Note HNO ID: [id number] Author: Keanu Navas (Res) MD Gibran Service: Neurosurgery Author Type: Resident Type: Progress Notes Filed: 09/17/2020 10:55 AM Note Text: Neurosurgery Inpatient Progress Note Interval HPI: REGINALDON Objective: 09/16/20 1012 09/16/20 1035 BP: 93/62 97/63 Pulse: (!) 51 64 Resp: 18 Temp: 36.2 ?C (97.2 ?F) TempSrc: Oral SpO2: 98% 99% EXAM: AAOx3, NAD RUE (prior rotator cuff injury): D 5/5, B 5/5, T 5/5, HG 5/5, IO 5/5 LUE (prior rotator cuff injury): D 4+/5, B 5/5, T 5/5, HG 5/5, IO 5/5 RLE: HF 5/5, KE 5/5, DF 5/5, PF 5/5, EHL 4+/5 LLE: HF 5/5, KE 5/5, DF 4+/5, PF 5/5, EHL 4-/5 ? Sensation intact to light touch ? A/P: 80 year old male with PMH significant for HTN, HLD, CAD c/b CA s/p stents in 2016 (on DAPT), PAD, pAF, presenting with one week of increased difficulty walking, 3-4 months of trouble holding objects. He presented to an OSH where CTA head/neck demonstrated anterolisthesis of C3 on C4, and MRI cervical spine demonstrated the same anterolisthesis of C3 on C4 with resultant canal stenosis. - Neuro as above, stable - Medicine recs: acceptable risk for proposed procedure. Trend LFTs and INR - Cards c/s: Recommend starting full dose AC post-op when okay from surgical standpoint. Otherwise no additional testing needed - Surgical date and final plan pending for cervical decompression and fusion - CT C spine completed - RUQ US pending - SCDs, SQH - Mobilize - PTOT Keanu Leary MD PGY-2, Neurological Surgery Pager: [phone] 10:55 AM 09/17/20 Please page [phone] after 6pm [facility] 09-16-2020 Note HNO ID: [id number] Author: Karena Vora (Sw) Service: Care Management Author Type: Music Leader Type: Care Mgt Initial Assessment Filed: 09/16/2020 1:14 PM Note Text: CARE MANAGEMENT: ASSESSMENT AND DISCHARGE PLAN SERVICE DATE: September 16, 2020 SERVICE TIME: 1:10 PM PRIMARY CARE PHYSICIAN: Antoni Wang MD ADMISSION STATUS: Inpatient Needs Prior to Discharge: To Be Determined;OT/PT Evaluation;Other: See Comment (OR day/time) MEDICAL: MEDICARE A AND B Patient/Base Filler Stated Goals: To improve my functional status;To have reduction in pain Health Insurance: Medicare Health Issues Impacting Discharge Plan: (Anterolisthesis) Last Discharge Date: N/A Is this Within the Past 30 days? Last discharge within 30 days: No Advance Directive: Health LiteracyHow often do you need to have someone help you when you read instructions, pamphlets, or other written material from your doctor or pharmacy? : 3 - Sometimes How confident are you filling out medical forms by yourself?: 2 - Quite a bit If Patient scores > 3 on either question, the following interventions were put into place:: Use of plain language and active listening with Patient and family;Use concrete and specific phrases, avoid medical jargon;Gave Patient the opportunity to ask questions Baseline Mental Status Prior to this Illness what was the patient's Baseline Mental Status?: Alert AND Oriented Prior to this illness, has anyone described the patient having any of the following behaviors?: Not Applicable Relationship of the informant to the patient:: Self Functional Status: Independent Does Patient Currently Receive Any Community Services or Home Care?: None Equipment Prior to Admission: Walker;Cane Has the Patient Been in a Detention Facility in the Past 30 days?: No SOCIAL: Living Arrangements: Home Lives With: Alone Financial Resources: Retired Primary Contact: Extended Emergency Contact Information Primary Emergency Contact: Arti Mccabe Mobile Relation: Daughter Supportive Patient Contact:: Yes Contact Resources: Family Family Name/Phone: Arti Mccabe ([facility]) [phone] (K) Caregiver AssessmentCaregiver is ready, willing and able to meet the patient's needs as recommended by the inter-professional team:: Other: See Comment (TBD) Does the patient have an acute stroke diagnosis, or has the patient had a stroke during this admission?: No Patient's transition needs and plan for meeting these needs: d/c needs TBD Patient's perception of need for this admission: Patient is aANDo x 4 and able to vocalize plan hospital course so far. Patient open to discussing all LOC at d/c Medication Adherance I am convinced of the importance of my prescription medication: 0 - Agree Completely I worry that my prescription medication will do more harm than good to me : 0 - Disagree Completely I feel financially burdened by my [id number] expenses for my prescription medication:: 0 - Disagree Completely Risk Score: 0 Patient is categorized as: Low risk < 2 Are you interested in bedside delivery of your medications? Yes Is Patient Psychosocially Complex?: No ASSESSMENT AND PLAN: Medical Needs: Medical Needs: None Psychosocial Needs: Psychosocial Needs: None FREEDOM OF CHOICE EXPLAINED: [place] of Choice Given: No Reason Not Given: No placements necessary;Unable to complete with this assessment - revisit (d/c needs TBD) POTENTIAL TRANSITION PLANS To Be Determined Patient is a 80 year old male admitted 09/16/20 r/t one week of increased difficulty walking, 3-4 months of trouble holding objects. Patient's daughter Arti present at bedside. At baseline patient lives at home alone. Recent decline requiring use of walker instead of a cane. Plan for OR next week with Dr. Neves. Postop PT/OT evals needed for dispo recs. Patient is open to discussing facility placement if needed but would prefer d/c to daughter's home with C. SW will continue to follow. For any weekend questions, concerns, updates, or needs, please contact pager #[phone] SIGNATURE: RAKAN Wiley PATIENT NAME: Sara Saha DATE: September 16, 2020 TIME: 1:10 PM PAGER/CONTACT #: [phone] [facility] 09-16-2020 Note HNO ID: [id number] Author: Flo Damico (Tech) Service: Radiology Author Type: Cloth Dyeing Range Tender Type: Progress Notes Filed: 09/16/2020 12:16 PM Note Text: Radiology Service Progress Note PATIENT NAME: Sara Saha DATE OF SERVICE: September 16, 2020 TIME: 12:09 PM PATIENT IDENTITY VERIFICATION COMPLETED USING TWO (2) IDENTIFIERS: Name and Date of confirmed by patient verbally and Name and Date of confirmed by identification band. FALL SCREENING: Has the patient had 2 falls in the last year or 1 fall with injury or currently using an Ambulatory Assistive Device (Walker, Cane, Wheelchair, Crutches, etc.)? No PATIENT GENDER DATA: Male PATIENT RELEVANT IMPLANT DATA REVIEWED: Yes RADIOLOGY DEPARTMENT: CT; Exam(s) Completed: Spine PERIPHERAL IV DATA: Not applicable SIGNED BY: Flo Damico September 16, 2020 12:09 PM [facility] Chief complaint Narrative - Reported SARA SAHA is being seen for a consultation for PAD and non-healing wound. RM-Eejcteqqng-Adfma I Work Phone: Chief complaint Narrative - Reported SARA SAHA is being seen for a consultation for PAD and non-healing wound. [facility] Work Phone: Chief complaint Narrative - Reported SARA SAHA is being seen for a consultation for PAD and non-healing wound. EY-Yushiyasoz-YDB Florencia Elkins DO Work Phone: [facility] Diagnosis Dyslipidemia- Primary Other and unspecified hyperlipidemia PAD (peripheral artery disease) (HCC) Unspecified peripheral vascular disease Coronary artery disease involving [place] coronary artery of [place] heart without angina pectoris Nonhealing skin ulcer, unspecified ulcer stage (HCC) [facility] Diagnosis Nonhealing skin ulcer, unspecified ulcer stage (HCC)- Primary [facility] Diagnosis PAD (peripheral artery disease) (HCC)- Primary Unspecified peripheral vascular disease Coronary artery disease involving [place] coronary artery of [place] heart without angina pectoris documented in this encounter [facility] Summary Purpose Family History No Family History Records FoundNo Family History Records FoundNo Family History Records FoundNo Family History Records FoundNo Family History Records FoundNo Family History Records FoundNo Family History Records Found Advance Directives Documents on File Type Date Recorded Patient Base Filler Expl anation Advance Directives and Living Will Documents on File Type Date Recorded Patient Base Filler Expl anation Advance Directives and Livin g Will 10/24/2021 12:32 PM Documents on File Type Date Recorded Patient Base Filler Expl anation Advance Directives and Livin g Will 12/13/2021 5:37 AM Latest Code Status on File Code Status Date Activated Date Inactivated Comments Full Code - Unverified 12/13/2021 11:23 AM 12/14/2021 12 :03 PM Full Code - Unverified 12/13/2021 9:28 AM 12/13/2021 11: 23 AM Latest Code Status on File Code Status Date Activated Date Inactivated Comments Full Code 01/24/2022 4:35 PM 01/25/2022 1:19 PM Code Status History Code Status Date Activated Date Inactivated Comments Full Code 01/24/2022 4:34 PM 01/24/2022 4:35 PM Full Code - Unverified 12/13/2021 11:23 AM 12/14/2021 12 :03 PM Full Code - Unverified 12/13/2021 9:28 AM 12/13/2021 11: 23 AM Reason for Referral Specialty Diagnoses / Procedures Referred By Ananda t Referred To Contact Cardiology Diagnoses PAD (peripheral artery disease) (HCC) Elliot Gleason, MADDY [address] [place] [address] Juan Wu MD [address] [facility] [address] [place] [address] Referral ID Status Reason Start Date Expiration Date Visits Requested Visits Authorized [id number] Authorized Specialty Services Required/Pat ient's Best Interest 09/13/2021 09/13/2022 1 1 Specialty Diagnoses / Procedures Referred By Contac t Referred To Contact Cardiology Diagnoses PAD (peripheral artery disease) (HCC) Nonhealing skin ulcer, unspecified ulcer stage (HCC) Procedures Ultrasound duplex arterial leg left Juan Wu MD [address] [facility] [address] [place] [id number] Referral ID Status Reason Start Date Expiration Date V isits Requested Visits Authorized [id number] New Request 10/08/2021 10/08/2022 1 1 Specialty Diagnoses / Procedures Referred By Contac t Referred To Contact Cardiology Diagnoses PAD (peripheral artery disease) (HCC) Nonhealing skin ulcer, unspecified ulcer stage (HCC) Procedures Ultrasound ankle / brachial indices extremity complete Juan Wu MD [address] [facility] [address] [place] [address] Referral ID Status Reason Start Date Expiration Date V isits Requested Visits Authorized [id number] New Request 10/08/2021 10/08/2022 1 1 Additional Source Comments (unrecognized sect ion and content) No Status Records FoundNo Status Records FoundNo Status Records FoundNo Status Records FoundNo Status Records FoundNo Status Records FoundNo Status Records Found INFORMATION SOURCE (unrecogn ized section and content) DATE CREATED AUTHOR [facility]S [facility] AT[facility] AUTHOR AUTHOR'S ORGANIZ ATION [facility]/11/2022 [facility] DATE CREATED AUTHOR AUTHOR'S ORGANIZ ATION 02/02/2022 [facility] DATE CREATED AUTHOR AUTHOR'S ORGANIZ ATION 03/26/2022 [facility] DATE CREATED AUTHOR AUTHOR'S ORGANIZ ATION 11/03/2022 [facility] DATE CREATED AUTHOR AUTHOR'S ORGANIZ ATION 11/30/2022 [employer] Reason for Visit (unrecogniz ed section and content) Specialty Diagnoses / Procedures Referred By Ananda alaniz Referred To Contact Cardiology Diagnoses PAD (peripheral artery disease) ([facility]) Elliot Gleason, DPM [address] [place] [address] Juan Wu MD [address] [facility] [address] [place] [address] Referral ID Status Reason Start Date Expiration Date V isits Requested Visits Authorized [id number] Closed Specialty Services Required/[place] ent's Best Interest 09/13/2021 09/13/2022 1 1 Reason Onset Date Comments Medication Refill 12/26/2021 Reason Comments Medication Refill Clopidogrel Reason Onset Date Comments Medication Refill 12/26/2022 Cilostazol 50m g Care Teams (unrecognized sec tion and content) Director Of Pupil Personnel Program Relationship Specialty Start Date End Date Antoni Wang MD [address] [place] [address] PCP - General Family Medicine 09/14/21 Director Of Pupil Personnel Program Relationship Specialty Start Date End Date Antoni Wang MD [address], [place] [phone] PCP - General Family Medicine 09/14/21 Director Of Pupil Personnel Program Relationship Specialty Start Date End Date Antoni Wang MD [address] [place] [address] PCP - General Family Medicine 09/14/21 Director Of Pupil Personnel Program Relationship Specialty Start Date End Date Antoni Wang MD [address] [place] [address] PCP - General Family Medicine 09/14/21 Director Of Pupil Personnel Program Relationship Specialty Start Date End Date Antoni Wang MD [address] [phone] PCP - General Family Medicine 09/14/21 Director Of Pupil Personnel Program Relationship Specialty Start Date End Date Antoni Wang MD [address] [place] [address] PCP - General Family Medicine 09/14/21 FOR RECORDS PERTAINING TO PATIENTS WHO ARE OR HAVE BEEN ENROLLED IN A CHEMICAL DEPENDENCY/SUBSTANCEABUSE PROGRAM, SOME INFORMATION MAY BE OMITTED. This clinical summary was aggregated from multiple sources. Caution should be exercised in using it in the provision of clinical care. This summary normalizes information from multiple sources, and as a consequence, information in this document may materially change the coding, format and clinical context of patient data. In addition, data may be omitted in some cases. CLINICAL DECISIONS SHOULD BE BASED ON THE PRIMARY CLINICAL RECORDS. [facility]. provides no warranty or guarantee of the accuracy or completeness of information in this document.
--- OUTSIDE RECORDS SUMMARY | 2023-07-15 17:29 | XMS RPT_ITS | CCD ---
Author Name Unknown Address [address] [place] [address] Organization [facility] Care Team Providers Care Carbon 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 Manager Name Role Phone Enriquez, Yanique Unavailable Unavailable [...] tablet by mouth daily as needed MELATONIN [id number] Raul Ahumada MD metoprolol tartrate 25 mg oral tablet (16 sources) beta-Adrenergic Jina Start: 02-24-2016 take 1 tablet by mouth twice daily METOPROLOL TARTRATE 25 MG TABS One tablet by mouth twice daily METOPROLOL TARTRATE [id number] Raul Ahumada MD Problems Active Problems Problem [...] disease (20 sources) Atherosclerotic heart disease of nondalton coronary artery without angina pectoris; Translations: [Old [...] (2 sources) Long-term drug therapy; Translations: [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 therapy] Onset: 02-24-2016 02-24-2016 Unclassified (2 sources) Warfarin therapy started; Translations: [long term care administrator (current) use of anticoagulants] Onset: 02-24-2016 02-24-2016 Past or Other Problems Problem Classification Problem Date Documented Da te Episodic/Chronic Cardiac dysrhythmias (5 sources) Bradycardia; Translations: [Bradycardia, unspecified] Onset: 12-13-2021 12-13-2021 Episodic Other aftercare (8 sources) long term care administrator (current) use of antithrombotics/ antiplatelets; Translations: [halfway (current) use of anticoagulants] Onset: 02-24-2016 02-24-2016 Episodic Results Test Name Value Interpretation Reference Range Facil ity Vital Signs Date Time Vital Sign Value Performing Clinician Facility 10-30-2022 13:37-0400 Body height 175.26 cm Referring Provider Unknown AI-Dwyylxjsye-LWN [facility] DO Work Phone: 10-30-2022 13:37-0400 Body mass index (BMI) [Ratio] 30.27 kg/m2 Referring Provider Unknown GJ-Wcddfhdeyb-LPR [facility] DO Work Phone: 10-30-2022 13:37-0400 Body surface area Derived from formula 2.09 m2 Referring Provider Unknown GO-Yznrbdhtnt-BII [facility] 1500 DO Work Phone: 10-30-2022 13:37-0400 Body weight 92.99 kg Referring Provider Unknown TK-Hsinalnpwo-VGT [facility] 1500 DO Work Phone: 10-30-2022 13:37-0400 Diastolic blood pressure 63 mm[Hg] Referring Provider Unknown NJ-Nnmzyssigo-OHJ [facility] 1500 DO Work Phone: 10-30-2022 13:37-0400 Heart rate 75 /min Referring Provider Unknown UT-Lwslvhwbsq-BXN [facility] DO Work Phone: 10-30-2022 13:37-0400 Respiratory rate 18 /min Referring Provider Unknown NA-Oqvstznkbs-ZCP [facility] DO Work Phone: 10-30-2022 13:37-0400 Systolic blood pressure 132 mm[Hg] Referring Provider Unknown AZ-Ekaugsjeqd-CAZ [facility] 1500 DO Work Phone: 09-27-2021 15:06-0400 Diastolic blood pressure 80 mm[Hg] Juan Wu MD Work Phone: [facility] 09-27-2021 15:06-0400 Systolic blood pressure 142 mm[Hg] Juan Wu MD Work Phone: [facility] 09-27-2021 14:49-0400 Body height 175.3 cm Juan Wu MD Work Phone: [facility] 09-27-2021 14:49-0400 Body mass index (BMI) [Ratio] 29.68 kg/m2 Juan Wu MD Work Phone: [facility] 09-27-2021 14:49-0400 Body weight 91.17 kg Juan Wu MD Work Phone: [facility] 09-27-2021 14:49-0400 Heart rate 58 /min Juan Wu MD Work Phone: [facility] 09-27-2021 14:49-0400 SaO2% (BldA) [Mass fraction] 97 % Juan Wu MD Work Phone: [facility] 12-13-2016 14:19-0400 Heart rate 51 /min Yanique Fernandoby [facility] Work Phone: 12-13-2016 13:11-0400 BP Diastolic 64 mm[Hg] Yanique Enriquez [facility] Work Phone: 12-13-2016 13:11-0400 BP Systolic 118 mm[Hg] Yanique Enriquez [facility] Work Phone: 12-13-2016 13:11-0400 Pulse (Heart Rate) 52 /min Yanique Enriquez [facility] Work Phone: 12-13-2016 13:11-0400 Respiratory Rate 18 /min Yanique Enriquez [facility] Work Phone: 06-04-2016 10:21-0500 Heart rate 61 /min Harumi DeFinis [facility] Work Phone: 06-04-2016 09:04-0500 BMI (Body Mass Index) 31.16 kg/m2 Harumi DeFinis [facility] Work Phone: 06-04-2016 09:04-0500 BP Diastolic 62 mm[Hg] Harumi DeFinis [facility] Work Phone: 06-04-2016 09:04-0500 BP Systolic 110 mm[Hg] Harumi DeFinis [facility] Work Phone: 06-04-2016 09:04-0500 BSA (Body Surface Area) 2.02 m2 Noa Gonzalez [facility] Work Phone: 06-04-2016 09:04-0500 Height 170.18 cm Noa Gonzalez [facility] Work Phone: 06-04-2016 09:04-0500 Pulse (Heart Rate) 66 /min Noa Gonzalez [facility] Work Phone: 06-04-2016 09:04-0500 Respiratory Rate 18 /min [facility] Work Phone: 06-04-2016 09:04-0500 Weight 90.27 kg Noa Gonzalez [facility] Work Phone: Encounters Encounter Date Encounter Type Care Provider Facility Start: 12-26-2022 Refill Rashida Hay To yolandai TECHNOLOGIST [facility] Procedures Date Procedure Procedure Detail Performing Clinician Start: 09-16-2020 Antibody screen Plan of Treatment Date Care Activity Detail Author Start: 02-22-[address] [facility] Start: 12-14-2022 Pneumococcal Vaccine: Age 65+ (2 - PCV) Pneumococcal Vaccine: Age 65+ (2 - PCV) [facility] Start: 11-14-2022 NPV, Provider: Iglesia Martin, Status: Pen, Time: 3:00 PM NPV, Provider: Iglesia Martin, Status: Pen, Time: 3:00 PM SA-Heckvojhqu-YUV [facility] DO Work Phone: Start: 10-30-2022 NPV, Provider: Viet House, Status: Pen, Time: 2:30 PM NPV, Provider: Viet House, Status: Pen, Time: 2:30 PM KI-Qisiuixcwi-HFG [facility] DO Work Phone: Start: 10-30-2022 PVRWITHABI, Provider: [id number], Status: Pen, Time: 1:00 PM PVRWITHABI, Provider: [id number], Status: Pen, Time: 1:00 PM WH-Ainyzwgpnh-XBV [facility] DO Work Phone: Start: 02-22-[address] [facility] Start: 01-24-2022 End: 01-24-2022 Admission to same day surgery center 01/24/2022 Surgery Cardiology Juan Wu MD [address] [place] [address] Peripheral Lower Extremity Angiogram Possible Intervention [facility] Learning And Development Manager Immunizations Immunization Date Immunization Notes Care Provider Fa cility 07-02-2022 pneumococcal polysaccharide vaccine, 23 valent Referring Provider Unknown BL-Mqwypkehnf-TNA [facility] DO Work Phone: 03-24-2022 Fluzone High-Dose Quadrivalent 0.7 ML Intramuscular Suspension Prefilled Syringe Referring Provider Unknown UX-Ktriczjjqb-LVM [facility] DO Work Phone: 03-24-2022 Pfizer COVID-19 Vac Bivalent 30 MCG/0.3ML Intramuscular Suspension Referring Provider Unknown RI-Gvuawgixxd-BXT [facility] DO Work Phone: 12-14-2021 pneumococcal polysaccharide vaccine, 23 valent Mallorie Guardado RN [facility] 10-05-2021 Comirnaty 30 MCG/0.3 ML Intramuscular Suspension Referring Provider Unknown NK-Twriopuyxm-EEV [facility] 1500 DO Work Phone: 03-30-2021 Pfizer-BioNTech COVI D-19 Vacc 30 MCG/0.3ML Intramuscular Suspension Referring Provider Unknown PS-Ztlxlsgkuj-RHN [facility] 1500 DO Work Phone: 08-12-2020 Pfizer-BioNTech COVI D-19 Vacc 30 MCG/0.3ML Intramuscular Suspension Referring Provider Unknown BU-Ygvsfptsiw-PWQ [facility] DO Work Phone: 07-15-2020 Pfizer-BioNTech COVI D-19 Vacc 30 MCG/0.3ML Intramuscular Suspension Referring Provider Unknown RX-Zkzegkiyvr-OVZ [facility] DO Work Phone: 03-31-2018 influenza, high dose seasonal, preservative-free Referring Provider Unknown XI-Eabnudxmyj-LXB [facility] DO Work Phone: 04-05-2015 influenza, seasonal, injectable Referring Provider Unknown RX-Tldbiczfot-LPL [facility] DO Work Phone: Payers Date Payer Category Payer Unknown [id number] 2019 Unknown [id number] 2005 Medicare MEDICARE MEDICAR E PART A & B [id number] 2005-Present [phone] [id number] [place] [address] [id number] 2005 Medicare [id number] 1940 Unknown [id number] 1940 Unknown [id number] 1940 Unknown [id number] 1940 Unknown [id number] 1940 Unknown [id number] 1940 Unknown [id number] 1940 Unknown [id number] 1940 Unknown [id number] 1940 Unknown [id number] 1940 Unknown [id number] Social History Date Type Detail Facility Tobacco smoking status UTIS 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 Start: 1940 Sex Assigned At [facility] on file [facility] Start: 09-27-2021 Tobacco smoking status UTIS Never sm oked tobacco [facility] Start: 09-27-2021 Tobacco use and exposure Smokeless t obacco non-user [facility] Start: 10-08-2021 End: 01-26-2022 Alcohol intake Current drinker of alcohol (finding) [facility] Start: 09-27-2021 History SDOH Alcohol Comment Very Ra rley [facility] Start: 09-17-2021 End: 12-13-2021 Exposure to SARS-CoV-2 (event) Not sure [facility] Start: 09-27-2021 End: 01-26-2022 Cigarette pack-years [facility] Start: 01-26-2022 Tobacco use panel [facility] Start: 12-13-2021 Gender identity Identifies as male gender (finding) [facility] Start: 12-13-2021 Sexual orientation Heterosexual (fin ding) [facility] Medical Equipment Procedure Code Equipment Code Equipment Origin al Text Equipment Identifier Dates Closure 6fr Angioseal Vip - [id number] [facility] Start: 12-13-2021 Closure 5fr Vasc ular Mynx W/Extra Greenkeeper Min Order 10 - [id number], [id number] [facility] Start: 01-24-2022 Clinical Notes 09-16-2020 to 12-26-2022 Telephone Encounter - Rashida Saldaña TECHNOLOGIST - 12/26/2022 8:28 AM EDTTelephone Encounter - Rashida Saldaña TECHNOLOGIST - 12/26/2022 8:28 AM EDJessi Hill MA - 09/27/2021 3:03 PM EDT Note Date & Type Note Facility 12-26-2022 Telephone encounter Note Source:RF Prescription:Cilostazol 50mg Amount of medication:180 Refill:3 Recall: Sent to case management manager: Last appt:09/27/21 Next appt:return if symptoms worsen [facility] 12-26-2022 Miscellaneous Notes Source:RF Prescription:Cilostazol 50mg Amount of medication:180 Refill:3 Recall: Sent to case management manager: Last appt:09/27/21 Next appt:return if symptoms worsen documented in this encounter [facility] 11-05-2022 Telephone encounter Note Received refill request electronically via inbasket. Pt last seen 09/27/2021, F/u in PRN. Refilled Clopidogrel 75mg Daily #90 with 3. Rx sent to [facility] 11-05-2022 Miscellaneous Notes Received refill request electronically via inbasket. Pt last seen 09/27/2021, F/u in PRN. Refilled Clopidogrel 75mg Daily #90 with 3. Rx sent to [facility] documented in this encounter 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 Juan Wu at [facility] in 01/28/2022,spinal cord injury to [...] Pt was refereed to us by his public policy associate Dr. Elliot Gleason for assessment of PAD [...] on the wound as instructed by his public policy associate. He wears compression stocking, which he had on for this visit to help with the edema. He tries to elevate it but its difficult for him due to the spinal injury. He denies prior or routine workup for his heart, diabetes or kidney since he had IL. He reported was briefly in afib after taking Abx but once it was stopped returned to normal rhythm. He is not very ambulatory, uses wheelchair and walker to get around. Pt denies CP, SOB, palpitation, syncope,PND fever, chills or night sweats. NE-Mdbthebdjv-Jsfmh [facility] Work Phone: 01-28-2022 History of Present illness Narrative 82 yr old male CAD, [place] s/p PCI x3 XU (2015), PAD s/p unsuccessful MUD ANALYSIS WELL LOGGING OPERATOR to the left PT by Dr. Juan Wu at [facility] in 01/28/2022,spinal cord injury to [...] Pt was refereed to us by his public policy associate Dr. Elliot Gleason for assessment of PAD [...] on the wound as instructed by his public policy associate. He wears compression stocking, which he had on for this visit to help with the edema. He tries to elevate it but its difficult for him due to the spinal injury. He denies prior or routine workup for his heart, diabetes or kidney since he had IL. He reported was briefly in afib after taking Abx but once it was stopped returned to normal rhythm. He is not very ambulatory, uses wheelchair and walker to get around. Pt denies CP, SOB, palpitation, syncope,PND fever, chills or night sweats. [facility] Work Phone: 01-28-2022 History of Present illness Narrative 82 yr old male CAD, [place] s/p PCI x3 XU (2015), PAD s/p unsuccessful MUD ANALYSIS WELL LOGGING OPERATOR to the left PT by Dr. Juan Wu at [facility] in 01/28/2022,spinal cord injury to [...] Pt was refereed to us by his public policy associate Dr. Elliot Gleason for assessment of PAD [...] on the wound as instructed by his public policy associate. He wears compression stocking, which he had on for this visit to help with the edema. He tries to elevate it but its difficult for him due to the spinal injury. He denies prior or routine workup for his heart, diabetes or kidney since he had IL. He reported was briefly in afib after taking Abx but once it was stopped returned to normal rhythm. He is not very ambulatory, uses wheelchair and walker to get around. Pt denies CP, SOB, palpitation, syncope,PND fever, chills or night sweats. SS-Dymwuyxrmn-TOG [facility] DO Work Phone: 10-08-2021 Note Addended by: JUAN WU on: 10/08/2021 08:45 PM Modules accepted: Orders [facility] 10-08-2021 Note Addended by: JUAN WU on: 10/08/2021 08:45 PM Modules accepted: Orders [facility] 10-08-2021 Miscellaneous Notes Addended by: JUAN [...] aspirin and statin documented in this encounter [facility] 10-08-2021 Evaluation + Plan note Associated Problem(s): Nonhealing skin ulcer (HCC) Continue as per Dr. Gleason [facility] 10-08-2021 Evaluation + Plan note Associated Problem(s): PAD (peripheral artery disease) (HCC) Ascending We will see if he had formal noninvasive vascular testing recently, if not, we will repeat it and if it shows significant stenosis proximal to his wound that may be impacting wound healing, we will pursue invasive angiography. Continue aspirin and statin [facility] 10-04-2021 History of Present illness Narrative Peripheral Vascular Cardiology Clinic Consult Heart & Vascular [facility] 09/27/2021 Juan Wu MD [address] [address] Patient: Sara Saha Date of [...] coronary stent and follows with a local potato spotter. He previously saw vascular specialist also locally who did not feel any further evaluation was warranted. I was able to review records from his wound care public policy associate to did some office testing suggesting tibial [...] patient is nervous/anxious. documented in this encounter [facility] 01-04-2021 Note HNO ID: [id number] Author: Cole Neves MD Service: ? Author [...] Doing great RTC PRN Cole Neves MD [facility] 11-03-2020 Note HNO ID: [id number] Author: Curtis Fragoso PA-C Service: ? Author Type: Physician Extras Casting Director Type: Progress Notes Filed: 11/03/2020 1:44 PM Note Text: SPINE SURGERY FOLLOW-UP DATE OF SURGERY/PROCEDURE: 09/19/2020 SURGEON: Cole Nevse M.D. SURGERY/PROCEDURE: C3 and C4 laminectomy with [...] ? Follow-up 6 months PIETER Robles MD [facility] 11-01-2020 History of Present illness Narrative 82 yr old male CAD, [place] s/p PCI x3 XU (2016), spinal cord [...] intact sensation.he comes with his daughter Gwendolyn UI-Frneeksqjx-JOM [facility] DO Work Phone: 09-23-2020 Note HNO ID: [id number] Author: Tabby ChaconRn) HODA Valenzuela Service: Care Management Author Type: Registered Nurse Type: Care Mgt Progress Note Filed: 09/23/2020 7:51 AM Note Text: CARE MANAGEMENT DISCHARGE NOTE SERVICE DATE: 09/23/2020 SERVICE TIME: 7:49 AM LOS: 7 days Admission Date: 09/16/2020 DISCHARGE ARRANGEMENT (list agency and phone number) Discharge Arrangement: Acute rehab Provider Name: [facility] [place] Phone: Nurse to Nurse report #: [phone] CAREGIVER ASSESSMENT: Caregiver is ready, willing and [...] AR.) Primary Care Physician Name/Phone: Dr. Larios [phone] TRANSPORTATION ARRANGEMENTS: Transportation Arrangements: Ambulance/[facility] Transportation Agency and Phone #:: [facility] [phone] Date of Trip: 09/23/20 Time of Trip: 0900 Type of Service: BLS Non-emergency Is Patient Medicaid Pending?: No Discussion of financial coverage occurred with: Patient;Family Certified Medical Dosimetrist Location: Main [place] Destination: [facility] Financial Care Management Responsibility: None IMM Follow Up Copy Given: No Reason: Acute Rehab D/C today to [facility] via [facility] transportation @ 9:00am as agreed upon by patient, medical team, AR. Report # provided and nurse aware. Chart envelope updated on inpatient rack. D/C instructions sent to AR via [facility]. D/C summary sent to AR via [facility]. SIGNATURE: Tabby Valenzuela RN PATIENT NAME: Sara Saha DATE: September 23, 2020 TIME: 7:49 AM PAGER/CONTACT #: [phone] [facility] 09-22-2020 Note HNO ID: [id number] Author: Tabby ChaconRn) HODA Valenzuela Service: Care Management Author Type: Registered Nurse Type: Care Mgt Initial Assessment Filed: 09/22/2020 10:19 AM Note Text: CARE MANAGEMENT PROGRESS NOTE SERVICE DATE: 09/22/2020 SERVICE TIME: 10:16 AM LOS: 6 days Needs Prior to Discharge: Ready for Discharge D/C ready. [facility] @9am via [facility] transportation. tasked [facility] for transport today if possible. Will follow for d/c planning needs. SIGNATURE: Tabby Valenzuela RN PATIENT NAME: Sara Saha DATE: September 22, 2020 TIME: 10:16 AM PAGER/CONTACT #: [phone] [facility] 09-22-2020 Note HNO ID: [id number] Author: Aj Hernandez Service: Neurosurgery Author Type: Physician Extras Casting Director Type: Progress Notes Filed: 09/22/2020 9:36 AM Note Text: SERVICE DATE: 09/22/2020 SERVICE TIME: 9:36 AM SPINE SURGERY TEAM PROGRESS NOTE After 4 PM (1600) please page Zan Waite PA-C [phone]. After 1800, and weekends please page [phone]. Attending: Dr. Cole Neves Location: H060 025/H060-26 [...] drain today PT/O (more content not included)... [facility] 09-21-2020 Note HNO ID: [id number] Author: Aj Hernandez Service: Neurosurgery Author Type: Physician Extras Casting Director Type: Progress Notes Filed: 09/21/2020 11:42 AM Note Text: SERVICE DATE: 09/21/2020 SERVICE TIME: 11:42 AM SPINE SURGERY TEAM PROGRESS NOTE After 4 PM (1600) please page Zan Waite PA-C [phone]. After 1800, and weekends please page [phone]. Attending: Dr. Cole Neves Location: H060 025/H060 [...] lines Mobilize QID (more content not included)... [facility] 09-21-2020 Note HNO ID: [id number] Author: Karena Vora (Sw) Service: Care Management Author Type: Paper Baling Machine Operator Type: Care Mgt Progress Note Filed: 09/21/2020 10:58 AM Note Text: CARE MANAGEMENT PROGRESS NOTE SERVICE DATE: 09/21/2020 SERVICE TIME: 9:59 AM LOS: 5 days Patient has been accepted to [facility]. Plan for d/c tomorrow pending transport availability. [facility] tasked to assist with scheduling long distance transport. Nurse report can be called to [phone] Addendum 10:52 AM Referrals sent to the following transport companies with the following results: [facility] - available to provide trip Saturday at 0900 [facility] - Please try back tomorrow for availability 14/[facility] - unable to accept patient [facility] - unable to accept patient [facility], [facility] - unable to accept patient [facility] - No response as of 1055 Trip scheduled for Saturday at 0900 with MMT. Facility and patient's family updated. Floor CM will continue to follow. SIGNATURE: RAKAN Wiley PATIENT NAME: Sara Saha DATE: September 21, 2020 TIME: 9:59 AM PAGER/CONTACT #: [phone] [facility] 09-20-2020 Note HNO ID: [id number] Author: Karena Vora (Sw) Service: Care Management Author Type: Paper Baling Machine Operator Type: Care Mgt Progress Note Filed: 09/20/2020 3:42 PM Note Text: CARE MANAGEMENT PROGRESS NOTE SERVICE DATE: 09/20/2020 SERVICE TIME: 3:40 PM LOS: 4 days [place] of Choice Given: Yes Level of Care Discussed: Inpatient Rehab Facility Financial Disclosure Provided: Yes Provider List: Rehab Facility Provider list within the patient's requested geographic area shared with the patient/family: Yes within: 25 miles (As well and [place] connected facilities) of zip code: [address] met with patient and his daughter Arti at bedside and discussed FOC. Patient selected [facility]. Referral tasked to [facility], awaiting acceptance. No precert required. D/c transport will need to be arranged. SW will continue to follow. SIGNATURE: RAKAN Wiley PATIENT NAME: Sara Saha DATE: September 20, 2020 TIME: 3:40 PM PAGER/CONTACT #: [phone] [facility] 09-20-2020 Note HNO ID: [id number] Author: Aj Hernandez Service: Neurosurgery Author Type: Physician Extras Casting Director Type: Progress Notes Filed: 09/20/2020 10:54 AM Note Text: SERVICE DATE: 09/20/2020 SERVICE TIME: 10:54 AM SPINE SURGERY TEAM PROGRESS NOTE After 4 PM (1600) please page Zan Waite PA-C [phone]. After 1800, and weekends please page [phone]. Attending: Dr. Cole Neves Location: [facility] 025/H060-26 Hospital Day: 5 09/19/2020 1 [...] Dr. Neves Psychiatry (more content not included)... [facility] 09-19-2020 Note HNO ID: [id number] Author: Olivier (Sabina) Juan Service: Orthopaedic Surgery [...] Flexion Arm Extension Wrist Ext Wrist Flex Greenkeeper HI R 5 5 4+ 5 5 [...] discharge Olivier Martinez MD, PGY-1 Orthopaedic Surgery p:[phone] If after 6PM and before 6AM OR on Weekends OR for Emergent needs, please page [phone] ([phone]) [facility] 09-19-2020 Note HNO ID: [id number] Author: Karena Vora (Sw) Service: Care Management Author Type: Paper Baling Machine Operator Type: Care Mgt Progress Note Filed: 09/19/2020 [...] 19, 2020 TIME: 10:40 AM PAGER/CONTACT #: [phone] [facility] 09-19-2020 Note HNO ID: [id number] Author: Olivier Martinez Service: Orthopaedic Surgery Author Type: Resident Type: Plan of Care Filed: 09/19/2020 7:41 AM Note Text: Orthopaedic Surgery: Plan of Care Note Preoperative Exam: Upper Extremities UE Arm Abduction Arm Flexion Arm Extension Wrist Ext Wrist Flex Greenkeeper HI R 5 5 4+ 5 5 [...] pulse Olivier Martinez MD, PGY-1 Orthopaedic Surgery p:[phone] After 5pm or on weekends, or if urgent and unable to reach, please page [phone]) [facility] 09-18-2020 Note HNO ID: [id number] Author: Keanu Leary MD Service: Neurosurgery Author Type: Resident Type: Plan of Care Filed: 09/18/2020 1:07 PM Note Text: Neurosurgery Plan of Care Assessment/Plan -Will move OR date to 09/19 due to new availability -NPO at midnight -Pre-op labs already completed (covid/typescreen from 09/16) Keanu Leary MD PGY-2, Neurological Surgery Pager: [phone] 1:07 PM 09/18/20 Please page [phone] after 6pm [facility] 09-18-2020 Note HNO ID: [id number] Author: Keanu Leary MD Service: Neurosurgery Author [...] PMH significant for HTN, HLD, CAD c/b [place] s/p stents in 2016 (on DAPT), PAD, [...] Keanu Leary MD PGY-2, Neurological Surgery Pager: [phone] 10:14 AM 09/18/20 Please page [phone] after 6pm [facility] 09-18-2020 Note HNO ID: [id number] Author: Sylvia ChaconRn) HODA Castillo Service: Nursing Author Type: Registered Nurse Type: Nursing Progress Note Filed: 09/17/2020 11:13 PM Note Text: patient refuses to wear IPC's stockings. Team notified. Patient educated about prevention [facility] 09-17-2020 Note HNO ID: [id number] Author: Keanu Navas (Res) MD Gibran Service: [...] PMH significant for HTN, HLD, CAD c/b [place] s/p stents in 2016 (on DAPT), PAD, [...] Keanu Leary MD PGY-2, Neurological Surgery Pager: [phone] 10:55 AM 09/17/20 Please page [phone] after 6pm [facility] 09-16-2020 Note HNO ID: [id number] Author: Karena Vora (Sw) Service: Care Management Author Type: Paper Baling Machine Operator Type: Care Mgt Initial Assessment Filed: 09/16/2020 1:14 PM Note Text: CARE MANAGEMENT: ASSESSMENT AND DISCHARGE PLAN SERVICE DATE: September 16, 2020 SERVICE TIME: 1:10 PM PRIMARY CARE PHYSICIAN: Antoni Wang MD ADMISSION STATUS: Inpatient Needs Prior to Discharge: To Be Determined;OT/PT Evaluation;Other: See Comment (OR day/time) MEDICAL: MEDICARE A AND B Patient/911 Emergency Services Dispatcher Stated Goals: To improve my functional status;To [...] Walker;Cane Has the Patient Been in a Assisted Facility in the Past 30 days?: No SOCIAL: Living Arrangements: Home Lives With: Alone Financial Resources: Retired Primary Contact: Extended Emergency Contact Information Primary Emergency Contact: Arti Mccabe Mobile Relation: Daughter Supportive Patient Contact:: Yes Contact Resources: Family Family Name/Phone: Arti Mccabe ([facility]) [phone] (A) Caregiver AssessmentCaregiver is ready, willing and able [...] Completely I feel financially burdened by my [id number] expenses for my prescription medication:: 0 - Disagree Completely Risk Score: 0 Patient is categorized as: Low risk < 2 Are you interested in bedside delivery of your medications? Yes Is Patient Psychosocially Complex?: No ASSESSMENT AND PLAN: Medical Needs: Medical Needs: None Psychosocial Needs: Psychosocial Needs: None FREEDOM OF CHOICE EXPLAINED: [place] of Choice Given: No Reason Not Given: [...] concerns, updates, or needs, please contact pager #[phone] SIGNATURE: RAKAN Wiley PATIENT NAME: Sara aSha DATE: September 16, 2020 TIME: 1:10 PM PAGER/CONTACT #: [phone] [facility] 09-16-2020 Note HNO ID: [id number] Author: Flo Damico (Tech) Service: Radiology Author Type: Test Preparation Tutor Type: Progress Notes Filed: 09/16/2020 12:16 PM [...] Flo Damico September 16, 2020 12:09 PM [facility] Chief complaint Narrative - Reported SARA SAHA is being seen for a consultation for PAD and non-healing wound. [facility] Work Phone: Chief complaint Narrative - Reported SARA SAHA is being seen for a consultation for PAD and non-healing wound. [facility] Work Phone: Chief complaint Narrative - Reported SARA SAHA is being seen for a consultation for PAD and non-healing wound. 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 Summary Purpose Family History No Family History Records FoundNo Family History Records FoundNo Family History Records FoundNo Family History Records FoundNo Family History Records FoundNo Family History Records FoundNo Family History Records Found Advance Directives Documents on File Type Date Recorded Patient 911 Emergency Services Dispatcher Expl anation Advance Directives and Living Will Documents on File Type Date Recorded Patient 911 Emergency Services Dispatcher Expl anation Advance Directives and Livin g Will 10/24/2021 12:32 PM Documents on File Type Date Recorded Patient 911 Emergency Services Dispatcher Expl anation Advance Directives and Livin g [...] (HCC) Elliot Gleason, MADDY [address] [place] [address] Juan Wu MD [address] [facility] [address] [place] [address] Referral ID Status Reason Start Date Expiration Date Visits Requested Visits Authorized [id number] Authorized Specialty Services Required/Pat ient's Best Interest 09/13/2021 09/13/2022 1 1 Specialty Diagnoses / Procedures Referred By Contac t Referred To Contact Cardiology Diagnoses PAD (peripheral artery disease) (HCC) Nonhealing skin ulcer, unspecified ulcer stage (HCC) Procedures Ultrasound duplex arterial leg left Juan Wu MD [address] [facility] [address] [place] [phone] Referral ID Status Reason Start Date Expiration Date V isits Requested Visits Authorized [id number] New Request 10/08/2021 10/08/2022 1 1 Specialty Diagnoses / Procedures Referred By Contac t Referred To Contact Cardiology Diagnoses PAD (peripheral artery disease) (HCC) Nonhealing skin ulcer, unspecified ulcer stage (HCC) Procedures Ultrasound ankle / brachial indices extremity complete Juan Wu MD [address] [facility] [address] [place] [address] Referral ID Status Reason Start Date Expiration Date V isits Requested Visits Authorized [id number] New Request 10/08/2021 10/08/2022 1 1 Additional Source Comments (unrecognized sect ion and content) No Status Records FoundNo Status Records FoundNo Status Records FoundNo Status Records FoundNo Status Records FoundNo Status Records FoundNo Status Records Found INFORMATION SOURCE (unrecogn ized section and content) DATE CREATED AUTHOR AUTHOR'S ORGANIZ ATION [facility] DATE CREATED AUTHOR AUTHOR'S ORGANIZ ATION 01/11/2022 [facility] DATE CREATED AUTHOR AUTHOR'S ORGANIZ ATION 02/02/2022 [facility] DATE CREATED AUTHOR AUTHOR'S ORGANIZ ATION 03/26/2022 [facility] DATE CREATED AUTHOR AUTHOR'S ORGANIZ ATION 11/03/2022 [facility] DATE CREATED AUTHOR AUTHOR'S ORGANIZ ATION 11/30/2022 [employer] Reason for Visit (unrecogniz ed section and content) Specialty Diagnoses / Procedures Referred By Ananda alaniz Referred To Contact Cardiology Diagnoses PAD (peripheral artery disease) ([facility]) Elliot Gleason, DPM [address] [place] [address] Juan Wu MD [address] [facility] [address] [place] [address] Referral ID Status Reason Start Date Expiration Date V isits Requested Visits Authorized [id number] Closed Specialty Services Required/[place] ent's Best Interest 09/13/2021 09/13/2022 1 1 Reason Onset Date Comments Medication Refill 12/26/2021 Reason Comments Medication Refill Clopidogrel Reason Onset Date Comments Medication Refill 12/26/2022 Cilostazol 50m g Care Teams (unrecognized sec tion and content) 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 Manager Relationship Specialty Start Date End Date Antoni Wang MD [address] [place] [address] PCP - General Family Medicine 09/14/21 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 Manager Relationship Specialty Start Date End Date Antoni Wang MD [address], [place] [phone] PCP - General Family Medicine 09/14/21 [employer] 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 Manager Relationship Specialty Start Date End Date Antoni Wang MD [address] [place] [address] PCP - General Family Medicine 09/14/21 [employer] 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 [employer] [facility]. provides no warranty or guarantee of the accuracy or completeness of information in this document.
[2023-07-15 17:30] VITALS: BP 134/90; PULSE 79; RESP 18; TEMP 37.1; O2SAT 99
--- OUTSIDE RECORDS SUMMARY | 2023-07-15 17:32 | XMS RPT_ITS | CCD ---
Author Name Unknown Address [address] [place] [address] Organization [facility] Care Team Providers Care Geographic Information Systems Analyst Name Role Phone Enriquez, Yanique Unavailable Unavailable [...] tablet by mouth daily as needed MELATONIN [id number] Raul Ahumada MD metoprolol tartrate 25 mg oral tablet (16 sources) beta-Adrenergic Jina Start: 02-24-2016 take 1 tablet by mouth twice daily METOPROLOL TARTRATE 25 MG TABS One tablet by mouth twice daily METOPROLOL TARTRATE [id number] Raul Ahumada MD Problems Active Problems Problem [...] disease (20 sources) Atherosclerotic heart disease of [place] coronary artery without angina pectoris; Translations: [Old [...] (2 sources) Long-term drug therapy; Translations: [Other intermediate frame tender (current) drug therapy] Onset: 02-24-2016 02-24-2016 Unclassified (2 sources) Warfarin therapy started; Translations: [extermination inspector (current) use of anticoagulants] Onset: 02-24-2016 02-24-2016 Past or Other Problems Problem Classification Problem Date Documented Da te Episodic/Chronic Cardiac dysrhythmias (5 sources) Bradycardia; Translations: [Bradycardia, unspecified] Onset: 12-13-2021 12-13-2021 Episodic Other aftercare (8 sources) extermination inspector (current) use of antithrombotics/ antiplatelets; Translations: [long-term (current) use of anticoagulants] Onset: 02-24-2016 02-24-2016 Episodic Results Test Name Value Interpretation Reference Range Facil ity Vital Signs Date Time Vital Sign Value Performing Clinician Facility 10-30-2022 13:37-0400 Body height 175.26 cm Referring Provider Unknown NN-Kdpoizjwaq-NRU [facility] DO Work Phone: 10-30-2022 13:37-0400 Body mass index (BMI) [Ratio] 30.27 kg/m2 Referring Provider Unknown QO-Wuttrysieu-JSO [facility] DO Work Phone: 10-30-2022 13:37-0400 Body surface area Derived from formula 2.09 m2 Referring Provider Unknown VL-Eunowlcfgr-UBN [facility] DO Work Phone: 10-30-2022 13:37-0400 Body weight 92.99 kg Referring Provider Unknown CF-Ejcuceblla-LDL [facility] DO Work Phone: 10-30-2022 13:37-0400 Diastolic blood pressure 63 mm[Hg] Referring Provider Unknown ND-Inekfkwalv-WUE [facility] DO Work Phone: 10-30-2022 13:37-0400 Heart rate 75 /min Referring Provider Unknown TO-Rneflomokz-EJP [facility] DO Work Phone: 10-30-2022 13:37-0400 Respiratory rate 18 /min Referring Provider Unknown CP-Lmdkdflcbr-YRJ [facility] DO Work Phone: 10-30-2022 13:37-0400 Systolic blood pressure 132 mm[Hg] Referring Provider Unknown HN-Isvwhgmizw-JNR [facility] DO Work Phone: 09-27-2021 15:06-0400 Diastolic blood pressure 80 mm[Hg] Juan Wu MD Work Phone: [facility] 09-27-2021 15:06-0400 Systolic blood pressure 142 mm[Hg] Juan Wu MD Work Phone: [facility] 09-27-2021 14:49-0400 Body height 175.3 cm Juan Wu MD Work Phone: [facility] 09-27-2021 14:49-0400 Body mass index (BMI) [Ratio] 29.68 kg/m2 Juan Wu MD Work Phone: [facility] 09-27-2021 14:49-0400 Body weight 91.17 kg Juan Wu MD Work Phone: [facility] 09-27-2021 14:49-0400 Heart rate 58 /min Juan Wu MD Work Phone: [facility] 09-27-2021 14:49-0400 SaO2% (BldA) [Mass fraction] 97 % Juan Wu MD Work Phone: [facility] 12-13-2016 14:19-0400 Heart rate 51 /min Yanique Fernandoby [facility] Work Phone: 12-13-2016 13:11-0400 BP Diastolic 64 mm[Hg] Yanique Enriquez [facility] Work Phone: 12-13-2016 13:11-0400 BP Systolic 118 mm[Hg] Yanique Enriquez [facility] Work Phone: 12-13-2016 13:11-0400 Pulse (Heart Rate) 52 /min Yanique Enriquez [facility] Work Phone: 12-13-2016 13:11-0400 Respiratory Rate 18 /min Yanique Enriquez [facility] Work Phone: 06-04-2016 10:21-0500 Heart rate 61 /min Harumi DeFinis [facility] Work Phone: 06-04-2016 09:04-0500 BMI (Body Mass Index) 31.16 kg/m2 Harumi DeFinis [facility] Work Phone: 06-04-2016 09:04-0500 BP Diastolic 62 mm[Hg] Harumi DeFinis [facility] Work Phone: 06-04-2016 09:04-0500 BP Systolic 110 mm[Hg] Harumi DeFinis [facility] Work Phone: 06-04-2016 09:04-0500 BSA (Body Surface Area) 2.02 m2 Noa Gonzalez [facility] Work Phone: 06-04-2016 09:04-0500 Height 170.18 cm Noa Gonzalez [facility] Work Phone: 06-04-2016 09:04-0500 Pulse (Heart Rate) 66 /min Noa Gonzalez [facility] Work Phone: 06-04-2016 09:04-0500 Respiratory Rate 18 /min [facility] Work Phone: 06-04-2016 09:04-0500 Weight 90.27 kg Noa Gonzalez [facility] Work Phone: Encounters Encounter Date Encounter Type Care Provider Facility Start: 12-26-2022 Refill Rashida Hay To yolandai TECHNOLOGIST [facility] Procedures Date Procedure Procedure Detail Performing Clinician Start: 09-16-2020 Antibody screen Plan of Treatment Date Care Activity Detail Author Start: 02-22-2023 Influenza vaccination [facility] Start: 12-14-2022 Pneumococcal Vaccine: Age 65+ (2 - PCV) Pneumococcal Vaccine: Age 65+ (2 - PCV) [facility] Start: 11-14-2022 NPV, Provider: Iglesia Martin, Status: Pen, Time: 3:00 PM NPV, Provider: Iglesia Martin, Status: Pen, Time: 3:00 PM CV-Fanhkyjiun-ULO [facility] DO Work Phone: Start: 10-30-2022 NPV, Provider: Viet House, Status: Pen, Time: 2:30 PM NPV, Provider: Viet House, Status: Pen, Time: 2:30 PM BJ-Xganzvrfyh-HNC [facility] DO Work Phone: Start: 10-30-2022 PVRWITHABI, Provider: [id number], Status: Pen, Time: 1:00 PM PVRWITHABI, Provider: [id number], Status: Pen, Time: 1:00 PM HD-Drxksiujll-AHQ [facility] DO Work Phone: Start: 02-22-2022 Influenza vaccination [facility] Start: 01-24-2022 End: 01-24-2022 Admission to same day surgery center 01/24/2022 Surgery Cardiology Juan Wu MD [address] [place] [address] Peripheral Lower Extremity Angiogram Possible Intervention [facility]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 Immunizations Immunization Date Immunization Notes Care Provider Fa cility 07-02-2022 pneumococcal polysaccharide vaccine, 23 valent Referring Provider Unknown MI-Nuevloirpo-TLD [facility] DO Work Phone: 03-24-2022 Fluzone High-Dose Quadrivalent 0.7 ML Intramuscular Suspension Prefilled Syringe Referring Provider Unknown CB-Ezjwrdkecq-XNI [facility] DO Work Phone: 03-24-2022 Pfizer COVID-19 Vac Bivalent 30 MCG/0.3ML Intramuscular Suspension Referring Provider Unknown UT-Twdpaxbcha-OWI [facility] DO Work Phone: 12-14-2021 pneumococcal polysaccharide vaccine, 23 valent Mallorie Guardado RN [facility] 10-05-2021 Comirnaty 30 MCG/0.3 ML Intramuscular Suspension Referring Provider Unknown LX-Nryjebqrwt-ZQH [facility] DO Work Phone: 03-30-2021 Pfizer-BioNTech COVI D-19 Vacc 30 MCG/0.3ML Intramuscular Suspension Referring Provider Unknown IB-Vnutigopjr-CLQ [facility] DO Work Phone: 08-12-2020 Pfizer-BioNTech COVI D-19 Vacc 30 MCG/0.3ML Intramuscular Suspension Referring Provider Unknown MP-Tlfaodtccf-YCB [facility] DO Work Phone: 07-15-2020 Pfizer-BioNTech COVI D-19 Vacc 30 MCG/0.3ML Intramuscular Suspension Referring Provider Unknown QZ-Jihcrvmqeq-ZSF [facility] DO Work Phone: 03-31-2018 influenza, high dose seasonal, preservative-free Referring Provider Unknown CQ-Cwlcnllumj-CCO [facility] DO Work Phone: 04-05-2015 influenza, seasonal, injectable Referring Provider Unknown GH-Kbnvstcywm-SFN [facility] DO Work Phone: Payers Date Payer Category Payer Unknown [id number] 2019 Unknown [id number] 2005 Medicare MEDICARE MEDICAR E PART A & B [id number] 2005-Present [phone] [id number] [place] [address] [id number] 2005 Medicare [id number] 1940 Unknown [id number] 1940 Unknown [id number] 1940 Unknown [id number] 1940 Unknown [id number] 1940 Unknown [id number] 1940 Unknown [id number] 1940 Unknown [id number] 1940 Unknown [id number] 1940 Unknown [id number] 1940 Unknown [id number] Social History Date Type Detail Facility Tobacco smoking status 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 smoking consumption unknown [facility] Start: 1940 Sex Assigned At Not on file [facility] Start: 09-27-2021 Tobacco smoking status LAIS Never sm oked tobacco [facility] Start: 09-27-2021 Tobacco use and exposure Smokeless t obacco non-user [facility] Start: 10-08-2021 End: 01-26-2022 Alcohol intake Current drinker of alcohol (finding) [facility] Start: 09-27-2021 History SDOH Alcohol Comment Very Ra rley [facility] Start: 09-17-2021 End: 12-13-2021 Exposure to SARS-CoV-2 (event) Not sure [facility] Start: 09-27-2021 End: 01-26-2022 Cigarette pack-years [facility] Start: 01-26-2022 Tobacco use panel [facility] Start: 12-13-2021 Gender identity Identifies as male gender (finding) [facility] Start: 12-13-2021 Sexual orientation Heterosexual (fin ding) [facility] Medical Equipment Procedure Code Equipment Code Equipment Origin al Text Equipment Identifier Dates Closure 6fr Angioseal Vip - [id number] [facility] Start: 12-13-2021 Closure 5fr Vasc ular Mynx W/Extra Instructional Coach Min Order 10 - [id number] [facility] Start: 01-24-2022 Clinical Notes 09-16-2020 to 12-26-2022 Telephone Encounter - Rashida Saldaña TECHNOLOGIST - 12/26/2022 8:28 AM EDTTelephone Encounter - Rashida Saldaña TECHNOLOGIST - 12/26/2022 8:28 AM EDJessi Hill MA - 09/27/2021 3:03 PM EDT Note Date & Type Note Facility 12-26-2022 Telephone encounter Note Source:RF Prescription:Cilostazol 50mg Amount of medication:180 Refill:3 Recall: Sent to cadmium [facility]: Last appt:09/27/21 Next appt:return if symptoms worsen [facility] 12-26-2022 Miscellaneous Notes Source:RF Prescription:Cilostazol 50mg Amount of medication:180 Refill:3 Recall: Sent to [facility]: Last appt:09/27/21 Next appt:return if symptoms worsen documented in this encounter [facility] 11-05-2022 Telephone encounter Note Received refill request electronically via inbasket. Pt last seen 09/27/2021, F/u in PRN. Refilled Clopidogrel 75mg Daily #90 with 3. Rx sent to [facility] 11-05-2022 Miscellaneous Notes Received refill request electronically via inbasket. Pt last seen 09/27/2021, F/u in PRN. Refilled Clopidogrel 75mg Daily #90 with 3. Rx sent to [facility] documented in this encounter [facility] 01-28-2022 History of Present illness Narrative 82 yr old male CAD, ND s/p PCI x3 XU (2016), PAD s/p unsuccessful RIGHT OF WAY WORKER to the left PT by Dr. 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 Elliot Gleason for assessment of PAD [...] on the wound as instructed by his control system manager. He wears compression stocking, which he had on for this visit to help with the edema. He tries to elevate it but its difficult for him due to the spinal injury. He denies prior or routine workup for his heart, diabetes or kidney since he had ND. He reported was briefly in afib after taking Abx but once it was stopped returned to normal rhythm. He is not very ambulatory, uses wheelchair and walker to get around. Pt denies CP, SOB, palpitation, syncope,PND fever, chills or night sweats. PW-Rkigqjtypq-Thlyi Freddy Work Phone: 01-28-2022 History of Present illness Narrative 82 yr old male CAD, ND s/p PCI x3 XU (2015), PAD s/p unsuccessful RIGHT OF WAY WORKER to the left PT by Dr. 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 Elliot Gleason for assessment of PAD [...] on the wound as instructed by his control system manager. He wears compression stocking, which he had on for this visit to help with the edema. He tries to elevate it but its difficult for him due to the spinal injury. He denies prior or routine workup for his heart, diabetes or kidney since he had ND. He reported was briefly in afib after taking Abx but once it was stopped returned to normal rhythm. He is not very ambulatory, uses wheelchair and walker to get around. Pt denies CP, SOB, palpitation, syncope,PND fever, chills or night sweats. [facility] Work Phone: 01-28-2022 History of Present illness Narrative 82 yr old male CAD, ND s/p PCI x3 XU (2015), PAD s/p unsuccessful RIGHT OF WAY WORKER to the left PT by Dr. 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 Elliot Gleason for assessment of PAD [...] on the wound as instructed by his control system manager. He wears compression stocking, which he had on for this visit to help with the edema. He tries to elevate it but its difficult for him due to the spinal injury. He denies prior or routine workup for his heart, diabetes or kidney since he had ND. He reported was briefly in afib after taking Abx but once it was stopped returned to normal rhythm. He is not very ambulatory, uses wheelchair and walker to get around. Pt denies CP, SOB, palpitation, syncope,PND fever, chills or night sweats. XU-Mjijgqicfs-KST [facility] DO Work Phone: 10-08-2021 Note Addended by: JUAN WU on: 10/08/2021 08:45 PM Modules accepted: Orders [facility] 10-08-2021 Note Addended by: JUAN WU on: 10/08/2021 08:45 PM Modules accepted: Orders [facility] 10-08-2021 Miscellaneous Notes Addended by: JUAN [...] aspirin and statin documented in this encounter [facility] 10-08-2021 Evaluation + Plan note Associated Problem(s): Nonhealing skin ulcer (HCC) Continue as per Dr. Gleason [facility] 10-08-2021 Evaluation + Plan note Associated Problem(s): PAD (peripheral artery disease) (HCC) Ascending We will see if he had formal noninvasive vascular testing recently, if not, we will repeat it and if it shows significant stenosis proximal to his wound that may be impacting wound healing, we will pursue invasive angiography. Continue aspirin and statin [facility] 10-04-2021 History of Present illness Narrative Peripheral Vascular Cardiology Clinic Consult Heart & Vascular [facility] 09/27/2021 Juan Wu MD [address] [address] Patient: Sara Saha Date of [...] coronary stent and follows with a local research agricultural engineer. He previously saw vascular specialist also locally who did not feel any further evaluation was warranted. I was able to review records from his wound care control system manager to did some office testing suggesting tibial [...] patient is nervous/anxious. documented in this encounter [facility] 01-04-2021 Note HNO ID: [id number] Author: Cole Neves MD Service: ? Author [...] Doing great RTC PRN Cole Neves MD [facility] 11-03-2020 Note HNO ID: [id number] Author: Curtis Fragoso PA-C Service: ? Author Type: Physician Campaign Associate Type: Progress Notes Filed: 11/03/2020 1:44 PM [...] ? Follow-up 6 months PIETER Robles MD [facility] 11-01-2020 History of Present illness Narrative 82 yr old male CAD, ND s/p PCI x3 XU (2016), spinal cord [...] intact sensation.he comes with his daughter Gwendolyn ZJ-Dhorrpcsfy-UNF [facility] DO Work Phone: 09-23-2020 Note HNO ID: [id number] Author: Tabby ChaconRn) HODA Valenzuela Service: Care Management Author Type: Registered Nurse Type: Care Mgt Progress Note Filed: 09/23/2020 7:51 AM Note Text: CARE MANAGEMENT DISCHARGE NOTE SERVICE DATE: 09/23/2020 SERVICE TIME: 7:49 AM LOS: 7 days Admission Date: 09/16/2020 DISCHARGE ARRANGEMENT (list agency and phone number) Discharge Arrangement: Acute rehab Provider Name: [facility] [place] Phone: Nurse to Nurse report #: [phone] CAREGIVER ASSESSMENT: Caregiver is ready, willing and [...] AR.) Primary Care Physician Name/Phone: Dr. Larios [phone] TRANSPORTATION ARRANGEMENTS: Transportation Arrangements: Ambulance/[facility] Transportation Agency and Phone #:: [facility] [phone] Date of Trip: 09/23/20 Time of Trip: 0900 Type of Service: BLS Non-emergency Is Patient Medicaid Pending?: No Discussion of financial coverage occurred with: Patient;Family Ac/Dc Rewinder Location: Main [place] Destination: [facility] Financial Care Management Responsibility: None IMM Follow Up Copy Given: No Reason: Acute Rehab D/C today to [facility] via [facility] transportation @ 9:00am as agreed upon by patient, medical team, AR. Report # provided and nurse aware. Chart envelope updated on inpatient rack. D/C instructions sent to AR via [facility]. D/C summary sent to AR via [facility]. SIGNATURE: Tabby Valenzuela RN PATIENT NAME: Sara Saha DATE: September 23, 2020 TIME: 7:49 AM PAGER/CONTACT #: [phone] [facility] 09-22-2020 Note HNO ID: [id number] Author: Tabby ChaconRn) HODA Valenzuela Service: Care Management Author Type: Registered Nurse Type: Care Mgt Initial Assessment Filed: 09/22/2020 10:19 AM Note Text: CARE MANAGEMENT PROGRESS NOTE SERVICE DATE: 09/22/2020 SERVICE TIME: 10:16 AM LOS: 6 days Needs Prior to Discharge: Ready for Discharge D/C ready. [facility] @9am via [facility] transportation. tasked [facility] for transport today if possible. Will follow for d/c planning needs. SIGNATURE: Tabby Valenzuela RN PATIENT NAME: Sara Saha DATE: September 22, 2020 TIME: 10:16 AM PAGER/CONTACT #: [phone] [facility] 09-22-2020 Note HNO ID: [id number] Author: Aj Hernandez Service: Neurosurgery Author Type: Physician Campaign Associate Type: Progress Notes Filed: 09/22/2020 9:36 AM Note Text: SERVICE DATE: 09/22/2020 SERVICE TIME: 9:36 AM SPINE SURGERY TEAM PROGRESS NOTE After 4 PM (1600) please page Zan Waite PA-C [phone]. After 1800, and weekends please page [phone]. Attending: Dr. Cole Neves Location: H060 025/H060-26 [...] drain today PT/O (more content not included)... [facility] 09-21-2020 Note HNO ID: [id number] Author: Aj Hernandez Service: Neurosurgery Author Type: Physician Campaign Associate Type: Progress Notes Filed: 09/21/2020 11:42 AM Note Text: SERVICE DATE: 09/21/2020 SERVICE TIME: 11:42 AM SPINE SURGERY TEAM PROGRESS NOTE After 4 PM (1600) please page Zan Waite PA-C [phone]. After 1800, and weekends please page [phone]. Attending: Dr. Cole Neves Location: H060 025/H060 [...] lines Mobilize QID (more content not included)... [facility] 09-21-2020 Note HNO ID: [id number] Author: Karena Vora (Sw) Service: Care Management Author Type: Wax Pattern Coater Type: Care Mgt Progress Note Filed: 09/21/2020 10:58 AM Note Text: CARE MANAGEMENT PROGRESS NOTE SERVICE DATE: 09/21/2020 SERVICE TIME: 9:59 AM LOS: 5 days Patient has been accepted to [facility] Acute [facility]. Plan for d/c tomorrow pending transport availability. [facility] tasked to assist with scheduling long distance transport. Nurse report can be called to [phone] Addendum 10:52 AM Referrals sent to the following transport companies with the following results: [facility] - available to provide trip Saturday at 0900 [facility] - Please try back tomorrow for availability 14/01 [facility] - unable to accept patient [facility] - unable to accept patient [facility], [facility] - unable to accept patient [facility] - No response as of 1055 Trip scheduled for Saturday at 0900 with [facility]. Facility and patient's family updated. Floor CM will continue to follow. SIGNATURE: RAKAN Wiley PATIENT NAME: Sara Saha DATE: September 21, 2020 TIME: 9:59 AM PAGER/CONTACT #: [phone] [facility] 09-20-2020 Note HNO ID: [id number] Author: Karena Vora (Sw) Service: Care Management Author Type: Wax Pattern Coater Type: Care Mgt Progress Note Filed: 09/20/2020 3:42 PM Note Text: CARE MANAGEMENT PROGRESS NOTE SERVICE DATE: 09/20/2020 SERVICE TIME: 3:40 PM LOS: 4 days [place] of Choice Given: Yes Level of Care Discussed: Inpatient Rehab Facility Financial Disclosure Provided: Yes Provider List: Rehab Facility Provider list within the patient's requested geographic area shared with the patient/family: Yes within: 25 miles (As well and [place] connected facilities) of zip code: [address] met with patient and his daughter Arti at bedside and discussed FOC. Patient selected [facility]'s acute rehab. Referral tasked to [facility], awaiting acceptance. No precert required. D/c transport will need to be arranged. SW will continue to follow. SIGNATURE: RAKAN Wiley PATIENT NAME: Sara Saha DATE: September 20, 2020 TIME: 3:40 PM PAGER/CONTACT #: [phone] [facility] 09-20-2020 Note HNO ID: [id number] Author: Aj Hernandez Service: Neurosurgery Author Type: Physician Campaign Associate Type: Progress Notes Filed: 09/20/2020 10:54 AM Note Text: SERVICE DATE: 09/20/2020 SERVICE TIME: 10:54 AM SPINE SURGERY TEAM PROGRESS NOTE After 4 PM (1600) please page Zan Waite PA-C [phone]. After 1800, and weekends please page [phone]. Attending: Dr. Cole Neves Location: [facility] 025/H060-26 Hospital Day: 5 09/19/2020 1 [...] Dr. Neves Psychiatry (more content not included)... [facility] 09-19-2020 Note HNO ID: [id number] Author: Olivier (Sabina) Juan Service: Orthopaedic Surgery [...] Flexion Arm Extension Wrist Ext Wrist Flex Instructional Coach HI R 5 5 4+ 5 5 [...] discharge Olivier Martinez MD, PGY-1 Orthopaedic Surgery p:[phone] If after 6PM and before 6AM OR on Weekends OR for Emergent needs, please page [phone] ([phone]) [facility] 09-19-2020 Note HNO ID: [id number] Author: Karena Vora (Sw) Service: Care Management Author Type: Wax Pattern Coater Type: Care Mgt Progress Note Filed: 09/19/2020 [...] 19, 2020 TIME: 10:40 AM PAGER/CONTACT #: [phone] [facility] 09-19-2020 Note HNO ID: [id number] Author: Olivier Martinez Service: Orthopaedic Surgery Author Type: Resident Type: Plan of Care Filed: 09/19/2020 7:41 AM Note Text: Orthopaedic Surgery: Plan of Care Note Preoperative Exam: Upper Extremities UE Arm Abduction Arm Flexion Arm Extension Wrist Ext Wrist Flex Instructional Coach HI R 5 5 4+ 5 5 [...] pulse Olivier Martinez MD, PGY-1 Orthopaedic Surgery p:[phone] After 5pm or on weekends, or if urgent and unable to reach, please page [phone] ([phone]) [facility] 09-18-2020 Note HNO ID: [id number] Author: Keanu Leary MD Service: Neurosurgery Author Type: Resident Type: Plan of Care Filed: 09/18/2020 1:07 PM Note Text: Neurosurgery Plan of Care Assessment/Plan -Will move OR date to 09/19 due to new availability -NPO at midnight -Pre-op labs already completed (covid/typescreen from 09/16) Keanu Leary MD PGY-2, Neurological Surgery Pager: [id number] 1:07 PM 09/18/20 Please page [phone] after 6pm [facility] 09-18-2020 Note HNO ID: [id number] Author: Keanu Leary MD Service: Neurosurgery Author [...] PMH significant for HTN, HLD, CAD c/b ND s/p stents in 2016 (on DAPT), PAD, [...] Keanu Leary MD PGY-2, Neurological Surgery Pager: [phone] 10:14 AM 09/18/20 Please page [phone] after 6pm [facility] 09-18-2020 Note HNO ID: [id number] Author: Sylvia ChaconRn) HODA Castillo Service: Nursing Author Type: Registered Nurse Type: Nursing Progress Note Filed: 09/17/2020 11:13 PM Note Text: patient refuses to wear IPC's stockings. Team notified. Patient educated about prevention [facility] 09-17-2020 Note HNO ID: [id number] Author: Keanu Navas (Res) MD Gibran Service: [...] PMH significant for HTN, HLD, CAD c/b ND s/p stents in 2016 (on DAPT), PAD, [...] Keanu Leary MD PGY-2, Neurological Surgery Pager: [phone] 10:55 AM 09/17/20 Please page [phone] after 6pm [facility] 09-16-2020 Note HNO ID: [id number] Author: Karena Vora (Sw) Service: Care Management Author Type: Wax Pattern Coater Type: Care Mgt Initial Assessment Filed: 09/16/2020 1:14 PM Note Text: CARE MANAGEMENT: ASSESSMENT AND DISCHARGE PLAN SERVICE DATE: September 16, 2020 SERVICE TIME: 1:10 PM PRIMARY CARE PHYSICIAN: Antoni Wang MD ADMISSION STATUS: Inpatient Needs Prior to Discharge: To Be Determined;OT/PT Evaluation;Other: See Comment (OR day/time) MEDICAL: MEDICARE A AND B Patient/Pst Supervisor Stated Goals: To improve my functional status;To [...] Walker;Cane Has the Patient Been in a Chcf Facility in the Past 30 days?: No SOCIAL: Living Arrangements: Home Lives With: Alone Financial Resources: Retired Primary Contact: Extended Emergency Contact Information Primary Emergency Contact: Arti Mccabe Mobile Relation: Daughter Supportive Patient Contact:: Yes Contact Resources: Family Family Name/Phone: Arti Mccabe ([facility]) [phone] (B) Caregiver AssessmentCaregiver is ready, willing and able [...] Completely I feel financially burdened by my [id number] expenses for my prescription medication:: 0 - Disagree Completely Risk Score: 0 Patient is categorized as: Low risk < 2 Are you interested in bedside delivery of your medications? Yes Is Patient Psychosocially Complex?: No ASSESSMENT AND PLAN: Medical Needs: Medical Needs: None Psychosocial Needs: Psychosocial Needs: None FREEDOM OF CHOICE EXPLAINED: [place] of Choice Given: No Reason Not Given: [...] concerns, updates, or needs, please contact pager #[phone] SIGNATURE: RAKAN Wiley PATIENT NAME: Sara Saha DATE: September 16, 2020 TIME: 1:10 PM PAGER/CONTACT #: [phone] [facility] 09-16-2020 Note HNO ID: [id number] Author: Flo Damico (Tech) Service: Radiology Author Type: Derrickman Helper Type: Progress Notes Filed: 09/16/2020 12:16 PM [...] Flo Damico September 16, 2020 12:09 PM [facility] Chief complaint Narrative - Reported SARA SAHA is being seen for a consultation for PAD and non-healing wound. [facility] Work Phone: Chief complaint Narrative - Reported SARA SAHA is being seen for a consultation for PAD and non-healing wound. [facility] Work Phone: Chief complaint Narrative - Reported SARA SAHA is being seen for a consultation for PAD and non-healing wound. BE-Dkcjmybpyb-AHT Florencia Elkins DO Work Phone: [facility] Diagnosis Dyslipidemia- Primary Other and unspecified hyperlipidemia PAD (peripheral artery disease) (HCC) Unspecified peripheral vascular disease Coronary artery disease involving [place] coronary artery of [place] heart without angina pectoris Nonhealing skin ulcer, unspecified ulcer stage (HCC) [facility] Diagnosis Nonhealing skin ulcer, unspecified ulcer stage (HCC)- Primary [facility] Diagnosis PAD (peripheral artery disease) (HCC)- Primary Unspecified peripheral vascular disease Coronary artery disease involving [place] coronary artery of [place] heart without angina pectoris documented in this encounter [facility] Summary Purpose Family History No Family History Records FoundNo Family History Records FoundNo Family History Records FoundNo Family History Records FoundNo Family History Records FoundNo Family History Records FoundNo Family History Records Found Advance Directives Documents on File Type Date Recorded Patient Pst Supervisor Expl anation Advance Directives and Living Will Documents on File Type Date Recorded Patient Pst Supervisor Expl anation Advance Directives and Livin g Will 10/24/2021 12:32 PM Documents on File Type Date Recorded Patient Pst Supervisor Expl anation Advance Directives and Livin g [...] (HCC) Elliot Gleason, MADDY [address] [place] [address] Juan Wu MD [address] [facility] [address] [place] [address] Referral ID Status Reason Start Date Expiration Date Visits Requested Visits Authorized [id number] Authorized Specialty Services Required/Pat ient's Best Interest 09/13/2021 09/13/2022 1 1 Specialty Diagnoses / Procedures Referred By Contac t Referred To Contact Cardiology Diagnoses PAD (peripheral artery disease) (HCC) Nonhealing skin ulcer, unspecified ulcer stage (HCC) Procedures Ultrasound duplex arterial leg left Juan Wu MD [address] [facility] [address] [place] [id number] Referral ID Status Reason Start Date Expiration Date V isits Requested Visits Authorized [id number] New Request 10/08/2021 10/08/2022 1 1 Specialty Diagnoses / Procedures Referred By Contac t Referred To Contact Cardiology Diagnoses PAD (peripheral artery disease) (HCC) Nonhealing skin ulcer, unspecified ulcer stage (HCC) Procedures Ultrasound ankle / brachial indices extremity complete Juan Wu MD [address] [facility] [address] [place] [address] Referral ID Status Reason Start Date Expiration Date V isits Requested Visits Authorized [id number] New Request 10/08/2021 10/08/2022 1 1 Additional Source Comments (unrecognized sect ion and content) No Status Records FoundNo Status Records FoundNo Status Records FoundNo Status Records FoundNo Status Records FoundNo Status Records FoundNo Status Records Found INFORMATION SOURCE (unrecogn ized section and content) DATE CREATED AUTHOR AUTHOR'S ORGANIZ ATION [facility] DATE CREATED AUTHOR AUTHOR'S ORGANIZ ATION 01/11/2022 [facility] DATE CREATED AUTHOR AUTHOR'S ORGANIZ ATION 02/02/2022 [facility] DATE CREATED AUTHOR AUTHOR'S ORGANIZ ATION 03/26/2022 [facility] DATE CREATED AUTHOR AUTHOR'S ORGANIZ ATION 11/03/2022 [facility] DATE CREATED AUTHOR AUTHOR'S ORGANIZ ATION 11/30/2022 [employer] Reason for Visit (unrecogniz ed section and content) Specialty Diagnoses / Procedures Referred By Ananda alaniz Referred To Contact Cardiology Diagnoses PAD (peripheral artery disease) ([facility]) Elliot Gleason, DPM [address] [place] [address] Juan Wu MD [address] [facility] [address] [place] [address] Referral ID Status Reason Start Date Expiration Date V isits Requested Visits Authorized [id number] Closed Specialty Services Required/Floriad ent's Best Interest 09/13/2021 09/13/2022 1 1 Reason Onset Date Comments Medication Refill 12/26/2021 Reason Comments Medication Refill Clopidogrel Reason Onset Date Comments Medication Refill 12/26/2022 Cilostazol 50m g Care Teams (unrecognized sec tion and content) Geographic Information Systems Analyst Relationship Specialty Start Date End Date Antoni Wang MD [address] [place] [address] PCP - General Family Medicine 09/14/21 Geographic Information Systems Analyst Relationship Specialty Start Date End Date Antoni Wang MD [address] [place], [place] [phone] PCP - General Family Medicine 09/14/21 Geographic Information Systems Analyst Relationship Specialty Start Date End Date Antoni Wang MD [address] [place] [address] PCP - General Family Medicine 09/14/21 Geographic Information Systems Analyst Relationship Specialty Start Date End Date Antoni Wang MD [address] [place] [address] PCP - General Family Medicine 09/14/21 Geographic Information Systems Analyst Relationship Specialty Start Date End Date Antoni Wang MD [address] [place], [place] [phone] PCP - General Family Medicine 09/14/21 Geographic Information Systems Analyst Relationship Specialty Start Date End Date Antoni Wang MD [address] [place] [address] PCP - General Family Medicine 09/14/21 FOR [...] BE BASED ON THE PRIMARY CLINICAL RECORDS. [facility]. provides no warranty or guarantee of the accuracy or completeness of information in this document.
[2023-07-15 17:34] VITALS: BMI 27.2
[2023-07-15 20:05] VITALS: BP 100/48; PULSE 83; RESP 18; TEMP 36.7; O2SAT 94
[2023-07-15] MEDS: Pramipexole Di-HCl 0.25 MG Tablet PO (22:25)
[2023-07-15] MEDS: Atorvastatin Calcium 80 MG Tablet PO (22:25)
[2023-07-15] MEDS: Cilostazol 50 MG Tablet PO (22:25)
[2023-07-15] MEDS: Gabapentin 100 MG Capsule 200 MG PO (22:25)
[2023-07-16 02:05] VITALS: BP 100/52; PULSE 86; RESP 18; TEMP 37; O2SAT 94
[2023-07-16 07:24] LABS: Hemoglobin 9.1 g/dL (13.0-16.5); Mean Corp Hgb Conc 32.5 g/dL (32-36); Mean Corpuscular Hgb 29.9 pg (27.0-32.0); Mean Corpuscular Volume 92.1 fL (80-94); Mean Platelet Vol. 10.5 fl (6.2-12.0); Platelet Count 238 K/mm3 (150-450); RBC Distribution Width CV 14.9 % (11.6-14.6); RBC Distribution Width SD 50.1 fl (35.1-43.9); Red Blood Count 3.04 M/mm3 (4.6-6.2); White Blood Count 5.2 K/mm3 (4.4-11.0)
--- NOTE | 2023-07-16 07:38 | PCM.PN.HOSP ---
Reason for Visit Reason for Visit: Diagnoses Other malaise (07/15/23) Subjective Subjective Patient is an 83-year-old male who presented to [facility] ED on 07/15/2023 with worsening weakness. Objective Data Objective Data Vital Signs: Vital Signs Temp Pulse Resp BP Pulse Ox O2 Del Method 98.6 F 86 18 100/52 L 94 Room Air 07/16/23 02:05 07/16/23 02:05 07/16/23 02:05 07/16/23 02:05 07/16/23 02:05 07/16/23 02:05 Oxygen Delivery Method Room Air Weight: 83.597 kg Body Mass Index (BMI) 27.2 Intake & Output: Intake and Output for Last 24 Hours 07/14/23 07/15/23 07/16/23 23:59 23:59 23:59 Output Total 100 / 100 50 / 50 Balance -100 / -100 -50 / -50 Lab / Micro Data 07/16/23 07:10 07/16/23 07:10 Labs: Laboratory Results - last 24 hr 07/15/23 14:25: WBC 4.9, RBC 3.37 L, Hgb 10.1 L, Hct 30.7 L, MCV 91.1, MCH 30.0, MCHC 32.9, RDW Std Deviation 49.0 H, RDW Coeff of [place] 14.9 H, Plt Count 272, MPV 10.4, Immature Gran % (Auto) 0.200, Neut % (Auto) 75.1 H, Lymph % (Auto) 14.0 L, [place] % (Auto) 10.3 H, Eos % (Auto) 0.2, Baso % (Auto) 0.2, Absolute Neuts (auto) 3.6, Absolute Lymphs (auto) 0.68 L, Nucleated RBC % 0, Sodium 138, Potassium 3.9, Chloride 103, Carbon Dioxide 30.0, Anion Gap 5, BUN 14, Creatinine 0.59 L, Estim Creat Clear Calc 69.96, Est GFR (MDRD) Af Amer 167, Est GFR (MDRD) Non-Af 138, BUN/Creatinine Ratio 23.6 H, Glucose 88, Calcium 9.1, Total Bilirubin 0.60, AST 40 H, ALT 37, Alkaline Phosphatase 146 H, Total Protein 6.7, Albumin 2.9 L, Globulin 3.8, Albumin/Globulin Ratio 0.8 L 07/15/23 16:20: Urine Color Yellow, Urine Clarity Clear, Urine pH 7.0, Ur Specific [place] 1.005, Urine Protein Negative, Urine Glucose (UA) Normal, Urine Ketones Negative, Urine Occult Blood Negative, Urine Nitrite Negative, Urine Bilirubin Negative, Urine Urobilinogen Normal, Ur Leukocyte Esterase Negative, Urine RBC 0 SEEN, Urine WBC 0 SEEN, Ur Squamous Epith Cells 0 SEEN, Urine Bacteria 0 SEEN, Urine Mucus 0 SEEN 07/16/23 07:10: WBC 5.2, RBC 3.04 L, Hgb 9.1 L, Hct 28.0 L, MCV 92.1, MCH 29.9, MCHC 32.5, RDW Std Deviation 50.1 H, RDW Coeff of [place] 14.9 H, Plt Count 238, MPV 10.5 Radiography Diagnostic Testing: Radiology Impression Chest X-Ray 07/15/23 14:40 IMPRESSION: No acute abnormality is seen. Electronically Signed: Irving Crook MD at 15:09 EST , Physical Exam Narrative GENERAL: cooperative HEENT: Atraumatic; normocephalic EYES; Anicteric, Normal Conjunctiva NECK; supple, normal thyroid, RESPIRATORY: Diminished to auscultation CARDIOVASCULAR: Regular S1 S2, GI: soft, normoactive bowel sounds, : No Renal angle tenderness; EXTREMITIES: No edema, no clubbing, MUSCULOSKELETAL: no muscle wasting NEURO: Awake; no lateralizing signs. SKIN: No Rash PSYCH; Flat affect Assessment & Plan Assessment/Plan (1) Debility: PLAN: Plan Patient is an 83-year-old male who presented to [facility] ED on 07/15/2023 with worsening weakness. 1. Physical deconditioning - Requested for PT OT eval and social worker delinquency prevention to assist with discharge planning 2. Recent history of TIA Hospitalized from 04/25-04/[address] [facility]. Presented with slurred speech, right-sided weakness and gait and balance. MRI was negative for acute stroke, suspected patient had TIA. Deficits had resolved prior to discharge. Treated with aspirin and Plavix for 3 weeks, then Plavix continued after this. Continue home Plavix and statin. Therapy consulted as above. 3. Abnormal esophageal motility suspicious for achalasia ? Noted during previous hospitalization. Underwent esophageal dilation with Dr. Monterroso on 04/29, tolerated this well. No further issues with dysphagia since then per patient. Continue home PPI. 4. Anemia - Secondary to chronic disorder monitoring H&H and transfuse if patient becomes symptomatic or hemoglobin falls below 7 5. Coronary artery disease with history of STEMI ? Patient is on guideline directed medical therapy 6. Peripheral arterial disease ? With previous intervention proximal left peroneal to distal left peroneal angioplasty x3 11/02/2021, patient is on Pletal continue 7. Proximal A-fib ? Rate controlled patient was not started on systemic anticoagulation after he was deemed to be a poor candidate. 8. Dyslipidemia -Patient is on statin therapy, continued at home dose 9. BPH with lower urinary obstructive symptoms ? Patient is on finasteride continued 10. Restless leg syndrome ? Symptomatic treatment with pramipexole. 11. DVT prophylaxis ? SC Lovenox Time spent in the patient's overall evaluation,decision-making process, review of diagnostic data, adjustment of management, discussion with other providers, nursing nursing and ancillary staff involved in patient's care documentation, 35 Minutes Charges/Coding Visit Charges Inpatient E&M: 63174 Subs Hosp L2
[2023-07-16 07:56] LABS: Anion Gap 3 (5-15); BUN 15 mg/dL (7-18); BUN/Creat Ratio 22.2 RATIO (10-20); Chloride 105 mmol/L (98-107); Creatinine, Serum 0.68 mg/dL (0.70-1.30); EST Glomerular Filtration Rate 119 mL/min (>60); Est Glom Filt Rate - Afr Amer 144 mL/min (>60); Estimated Creatinine Clearance 69.96 ml/min; Glucose 72 mg/dL (74-106); Potassium 3.5 mmol/L (3.5-5.1); Sodium Level 138 mmol/L (136-145)
[2023-07-16 08:35] VITALS: BP 103/51; PULSE 57; RESP 16; TEMP 36.5; O2SAT 96
[2023-07-16] MEDS: Gabapentin 100 MG Capsule PO (08:49)
[2023-07-16] MEDS: Finasteride 5 MG Tablet PO (10:14)
[2023-07-16] MEDS: Enoxaparin 40 MG/0.4 ML Syringe SC (10:14)
[2023-07-16] MEDS: Citalopram 10 MG Tablet PO (10:15)
[2023-07-16] MEDS: Clopidogrel Bisulfate 75 MG Tablet PO (10:15)
[2023-07-16] MEDS: Cyanocobalamin 500 MCG Tablet 1000 MCG PO (10:15)
[2023-07-16] MEDS: Cilostazol 50 MG Tablet PO (10:16)
[2023-07-16] MEDS: Ensure Plus High Protein 120 ML LIQUID PO ×2 (10:19→16:43)
[2023-07-16] MEDS: Potassium Chloride Oral Tablet 20 MEQ PO ×2 (10:19→16:38)
--- NOTE | 2023-07-16 12:02 | CASEMGMT ---
Addendum entered by Bonita Mcclelland 07/16/23 14:36: Dr. England stated pt is ready for DC today. KRISTAL spoke with Nicolasa in RU and agreed to admit today. KRISTAL updated RN. KRISTAL met with pt and dtr in room. Updated on RU admission today with Medicare coverage. Pt agreed to admission. SW educated to THUR Team meeting on RU. BIMS (). DC orders tubed to RU. Plan: DC 07/16 to RU CARL Peace Addendum entered by Bonita Mcclelland 07/16/23 14:03: RU approved pt. KRISTAL updated Dr. England and inquired about DC date. Will await response. Original Note: Social Work SW received referral for DC planning - home vs SNF. Pt is getting a wound vac placed again today. IDT recommending SNF. SW met with patient. Pt recalled this worker by name from previous stays. SW inquired about DC plan. Pt acknowledged his recent debility and agreed to SNF stay. SW educated to being observation status, not inpatient, thus currently, pt would have to pay OOP for SNF stay as he does not meet criteria for Medicare SNF coverage. Pt inquired about RU. SW educated that Medicare would cover RU stay, if approved. Educated pt must be able to participate in 3 hrs daily of therapy. Pt would like that as first referral. SW requested alternative options. SW offered to review finances if pt qualifies for Medicaid. Pt stated he would have the funds to pay OOP for SNF. Pt requested TCU or [facility] as SNF options. SW to make referrals and keep pt updated. Pt appreciative. KRISTAL phoned referral to Nicolasa on RU. However, noted, pt DC's from TCU, after RU stay, within 30 days and inquired about using past 3-midnight stay for SNF coverage. Nicolasa to review and update this worker. KRISTAL will continue to follow. CARL Peace
--- NOTE | 2023-07-16 13:36 | WOUNDNOTE ---
wound photo: left heel/left Achilles area
--- NOTE | 2023-07-16 13:36 | WOUNDNOTE ---
wound photo: right lower leg
--- NOTE | 2023-07-16 14:14 | DS.PCM_ITS ---
Providers Date of Admission: 07/15/23 Date of Discharge: 07/16/23 Primary Care Physician: Dr. Ankur Medina, DO Consultations 07/15/23 17:39 Consult: Onc/Wound/equal opportunity officer Routine Comment: Reason for Consult:: wound vac care Reason For Visit: INABILITY TO AMBULATE Diagnosis Discharge Diagnosis (1) Debility: Status: Acute Code(s): R53.81 - Other malaise Plan Patient is an 83-year-old male who presented to [facility] ED on 07/15/2023 with worsening weakness. 1. Physical deconditioning - Requested for PT OT eval and social service liaison to assist with discharge planning 2. Recent history of TIA Hospitalized from 04/25-04/30 at [facility]. Presented with slurred speech, right-sided weakness and gait and balance. MRI was negative for acute stroke, suspected patient had TIA. Deficits had resolved prior to discharge. Treated with aspirin and Plavix for 3 weeks, then Plavix continued after this. Continue home Plavix and statin. Therapy consulted as above. 3. Abnormal esophageal motility suspicious for achalasia ? Noted during previous hospitalization. Underwent esophageal dilation with Dr. Monterroso on 04/29, tolerated this well. No further issues with dysphagia since then per patient. Continue home PPI. 4. Anemia - Secondary to chronic disorder monitoring H&H and transfuse if patient becomes symptomatic or hemoglobin falls below 7 5. Coronary artery disease with history of STEMI ? Patient is on guideline directed medical therapy 6. Peripheral arterial disease ? With previous intervention proximal left peroneal to distal left peroneal angioplasty x3 11/02/2021, patient is on Pletal continue 7. Proximal A-fib ? Rate controlled patient was not started on systemic anticoagulation after he was deemed to be a poor candidate. 8. Dyslipidemia -Patient is on statin therapy, continued at home dose 9. BPH with lower urinary obstructive symptoms ? Patient is on finasteride continued 10. Restless leg syndrome ? Symptomatic treatment with pramipexole. 11. DVT prophylaxis ? SC Lovenox Time spent in the patient's overall evaluation,decision-making process, review of diagnostic data, adjustment of management, discussion with other providers, nursing nursing and ancillary staff involved in patient's care documentation, 35 Minutes Medications at Discharge Home Medications finasteride 5 mg tablet (Proscar) 5 mg PO DAILY PROSTATES 01/25/18 cilostazol 50 mg tablet 50 mg PO BID vasodilator 02/02/22 clopidogrel 75 mg tablet 75 mg PO DAILY BLOOD THINNER 02/02/22 cyanocobalamin (vitamin B-12) 1,000 mcg tablet 1,000 mcg PO DAILY SUPPLEMENT 04/01/23 gabapentin 100 mg capsule 100 mg PO DAILY nerve pain 04/25/23 gabapentin 100 mg capsule 200 mg PO QHS NERVE PAIN 04/25/23 tizanidine 2 mg tablet 2 - 4 mg PO QHS PRN muscle spasm 05/03/23 citalopram 10 mg tablet 10 mg PO DAILY DEPRESSION 30 days #30 tabs 06/12/23 pramipexole 0.25 mg tablet 0.25 mg PO QHS PARKINSON'S 30 days #30 tabs 06/12/23 acetaminophen 500 mg tablet 1,000 mg PO Q6H PRN Pain Score 1-10 07/15/23 amoxicillin 875 mg-potassium clavulanate 125 mg tablet 1 tab PO BID ANTIBIOTIC 07/15/23 atorvastatin 80 mg tablet 80 mg PO DAILY CHOLESTEROL 07/15/23 miconazole nitrate 2 % topical powder (Desenex) 1 applic topical BID PRN redness 07/15/23 enoxaparin 40 mg/0.4 mL subcutaneous syringe 40 mg (0.4 mL) subcut DAILY #0 mL 07/16/23 food supplemt, lactose-reduced 0.08 gram-1.5 kcal/mL oral liquid (Ensure Plus High Protein) 120 ml PO 4X/DAY #0 mL 07/16/23 melatonin 3 mg tablet 3 mg PO QHS PRN PRN Insomnia #0 tabs 07/16/23 potassium chloride 20 mEq tablet,extended release(part/cryst) 20 meq PO BIDCM #0 tabs 07/16/23 Hospital Course Summary of Care Provided Minutes Spent on Discharge: 35 Physical Exam Narrative GENERAL: cooperative HEENT: Atraumatic; normocephalic EYES; Anicteric, Normal Conjunctiva NECK; supple, normal thyroid, RESPIRATORY: Diminished to auscultation CARDIOVASCULAR: Regular S1 S2, GI: soft, normoactive bowel sounds, : No Renal angle tenderness; EXTREMITIES: No edema, no clubbing, MUSCULOSKELETAL: no muscle wasting NEURO: Awake; no lateralizing signs. SKIN: No Rash PSYCH; Flat affect Weight / BMI Weight Weight: 83.597 kg Body Mass Index (BMI) 27.2 ABG / Lab / Microbiology Data 07/16/23 07:10 07/16/23 07:10 Laboratory: Laboratory Results - last 24 hr 07/15/23 14:25: WBC 4.9, RBC 3.37 L, Hgb 10.1 L, Hct 30.7 L, MCV 91.1, MCH 30.0, MCHC 32.9, RDW Std Deviation 49.0 H, RDW Coeff of [place] 14.9 H, Plt Count 272, MPV 10.4, Immature Gran % (Auto) 0.200, Neut % (Auto) 75.1 H, Lymph % (Auto) 14.0 L, [place] % (Auto) 10.3 H, Eos % (Auto) 0.2, Baso % (Auto) 0.2, Absolute Neuts (auto) 3.6, Absolute Lymphs (auto) 0.68 L, Nucleated RBC % 0, Sodium 138, Potassium 3.9, Chloride 103, Carbon Dioxide 30.0, Anion Gap 5, BUN 14, Creatinine 0.59 L, Estim Creat Clear Calc 69.96, Est GFR (MDRD) Af Amer 167, Est GFR (MDRD) Non-Af 138, BUN/Creatinine Ratio 23.6 H, Glucose 88, Calcium 9.1, Total Bilirubin 0.60, AST 40 H, ALT 37, Alkaline Phosphatase 146 H, Total Protein 6.7, Albumin 2.9 L, Globulin 3.8, Albumin/Globulin Ratio 0.8 L 07/15/23 16:20: Urine Color Yellow, Urine Clarity Clear, Urine pH 7.0, Ur Specific [place] 1.005, Urine Protein Negative, Urine Glucose (UA) Normal, Urine Ketones Negative, Urine Occult Blood Negative, Urine Nitrite Negative, Urine Bilirubin Negative, Urine Urobilinogen Normal, Ur Leukocyte Esterase Negative, Urine RBC 0 SEEN, Urine WBC 0 SEEN, Ur Squamous Epith Cells 0 SEEN, Urine Bacteria 0 SEEN, Urine Mucus 0 SEEN 07/16/23 07:10: WBC 5.2, RBC 3.04 L, Hgb 9.1 L, Hct 28.0 L, MCV 92.1, MCH 29.9, MCHC 32.5, RDW Std Deviation 50.1 H, RDW Coeff of [place] 14.9 H, Plt Count 238, MPV 10.5, Sodium 138, Potassium 3.5, Chloride 105, Carbon Dioxide 30.0, Anion Gap 3 L, BUN 15, Creatinine 0.68 L, Estim Creat Clear Calc 69.96, Est GFR (MDRD) Af Amer 144, Est GFR (MDRD) Non-Af 119, BUN/Creatinine Ratio 22.2 H, Glucose 72 L, Calcium 9.0 Radiography Diagnostic Testing: Radiology Impression Chest X-Ray 07/15/23 14:40 IMPRESSION: No acute abnormality is seen. Electronically Signed: Irving Crook MD at 15:09 EST , D/C Instructions Discharge Diet: No restrictions Discharge Activity: Return to Normal Activity Call your doctor if you observe: Fever of 101 or Higher, Shortness of breath, Fainting spells and Chest pain Meaningful Use Info Meaningful Use Diagnoses (Choose all that apply): None applicable Discharge Plan Admission Admit Date/Time: 07/15/23 16:45 Attending Provider: Manoj England Primary Care Provider: Ankur Medina Consulting Providers: Rodrigo Chiang Discharge Orders/Prescriptions Prescriptions: New melatonin 3 mg Tablet 3 mg PO QHS PRN PRN (Reason: Insomnia) Qty: 0 0RF potassium chloride 20 mEq Tablet,Er Particles/Crystals 20 meq PO BIDCM Qty: 0 0RF enoxaparin 40 mg/0.4 mL Syringe 40 mg subcut DAILY Qty: 0 0RF Ensure Plus High Protein 0.08 gram-1.5 kcal/mL Liquid 120 ml PO 4X/DAY Qty: 0 0RF Continued finasteride [Proscar] 5 mg tablet 5 mg PO DAILY cilostazol 50 mg tablet 50 mg PO BID clopidogrel 75 mg tablet 75 mg PO DAILY cyanocobalamin (vitamin B-12) 1,000 mcg tablet 1,000 mcg PO DAILY tizanidine 2 MG tablet 2 - 4 mg PO QHS PRN (Reason: muscle spasm) gabapentin 100 mg capsule 100 mg PO DAILY Patient Comments: 07/15/23- pt states tried to cut back , taking only 100mg in the am, 200mg at hs gabapentin 100 mg capsule 200 mg PO QHS Patient Comments: 07/15/23- pt states tried to cut back , taking only 100mg in the am, 200mg at hs citalopram 10 mg Tablet 10 mg PO DAILY 30 Days Qty: 30 0RF pramipexole 0.25 mg Tablet 0.25 mg PO QHS 30 Days Qty: 30 0RF atorvastatin 80 mg tablet 80 mg PO DAILY miconazole nitrate [Desenex] 2 % Powder 1 applic topical BID PRN (Reason: redness) Protocol: *Topical Application Instructions APPLICATION INSTRUCTIONS: Apply to groin amoxicillin-pot clavulanate 875-125 mg tablet 1 tab PO BID acetaminophen 500 mg Tablet 1,000 mg PO Q6H PRN (Reason: Pain Score 1-10) Referrals / Follow Up: Ankur Medina DO [Primary Care Provider] - Within 1 Month Disposition Disposition (needs filled in before D/C Order can be placed): Inpatient Rehab Unit/Facility Charges/Coding Visit Charges Inpatient E&M: 19834 Disch Hosp >30min
[2023-07-16 14:23] VITALS: BP 118/62; PULSE 70; RESP 12; TEMP 36.6; O2SAT 95
[2023-07-16 14:37] VITALS: RESP 12; O2SAT 95
== END 2023-07-16 17:58 ==
LOC: ED 15:48 → MS3 16:54
PROVIDERS: Physician Assistant; Admitting Provider Hospitalist; Emergency Provider Emergency Medicine; PCP Family Medicine; Visit Provider Internal Medicine
DX: R53.81 Other malaise (principal); I73.9 Peripheral vascular disease, unspecified; I48.0 Paroxysmal atrial fibrillation; I10 Essential (primary) hypertension; D64.9 Anemia, unspecified; Z79.02 Long term (current) use of antithrombotics/antiplatelets; R26.2 Difficulty in walking, not elsewhere classified; I25.10 Atherosclerotic heart disease of native coronary artery without angina pectoris; E78.5 Hyperlipidemia, unspecified; N40.1 Benign prostatic hyperplasia with lower urinary tract symptoms; Z87.891 Personal history of nicotine dependence; Z86.73 Personal history of transient ischemic attack (TIA), and cerebral infarction without residual deficits; Z79.899 Other long term (current) drug therapy; F32.A Depression, unspecified; N13.8 Other obstructive and reflux uropathy
CPT/HCPCS: 96372; 99283; 36415; 71046; 80048; 80053; 81001; 85025; 85027; 93005; 94668; 97802; 99221; G0378

== ENCOUNTER 2023-07-16 18:24 | Inpatient (IN) | payer MEDICARE, BC, SELFPAY ==
--- OUTSIDE RECORDS SUMMARY | 2023-07-16 18:36 | XMS RPT_ITS | CCD ---
Author Name Unknown Address [address] [place] [address] Organization [facility] Care Team Providers Care Collection Systems Technician Name Role Phone Enriquez, Yanique Unavailable Unavailable [...] Unavailable ELLIOT GLEASON Referring Unavailable WU, JUAN UABREY Admitting Unavailable ANTONI WANG Primary Care Unavailable [...] tablet by mouth daily as needed MELATONIN [id number] Raul Ahumada MD metoprolol tartrate 25 mg oral tablet (16 sources) beta-Adrenergic Jina Start: 02-24-2016 take 1 tablet by mouth twice daily METOPROLOL TARTRATE 25 MG TABS One tablet by mouth twice daily METOPROLOL TARTRATE [id number] Raul Ahumada MD Problems Active Problems Problem [...] disease (20 sources) Atherosclerotic heart disease of [place] coronary artery without angina pectoris; Translations: [Old [...] (2 sources) Long-term drug therapy; Translations: [Other intermission coordinator (current) drug therapy] Onset: 02-24-2016 02-24-2016 Unclassified (2 sources) Warfarin therapy started; 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] Onset: 02-24-2016 02-24-2016 Past or Other Problems Problem Classification Problem Date Documented Da te Episodic/Chronic Cardiac dysrhythmias (5 sources) Bradycardia; Translations: [Bradycardia, unspecified] Onset: 12-13-2021 12-13-2021 Episodic Other aftercare (8 sources) 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; Translations: [retirement (current) use of anticoagulants] Onset: 02-24-2016 02-24-2016 Episodic Results Test Name Value Interpretation Reference Range Facil ity Vital Signs Date Time Vital Sign Value Performing Clinician Facility 10-30-2022 13:37-0400 Body height 175.26 cm Referring Provider Unknown BA-Fyiuxbeyxu-WAG [facility] DO Work Phone: 10-30-2022 13:37-0400 Body mass index (BMI) [Ratio] 30.27 kg/m2 Referring Provider Unknown CS-Lonotrgrmt-AYM [facility] DO Work Phone: 10-30-2022 13:37-0400 Body surface area Derived from formula 2.09 m2 Referring Provider Unknown UC-Ambhjvrmsn-ELM [facility] DO Work Phone: 10-30-2022 13:37-0400 Body weight 92.99 kg Referring Provider Unknown NY-Enwrtvlgmc-NXR [facility] DO Work Phone: 10-30-2022 13:37-0400 Diastolic blood pressure 63 mm[Hg] Referring Provider Unknown TK-Igqqmvqtte-HPG [facility] DO Work Phone: 10-30-2022 13:37-0400 Heart rate 75 /min Referring Provider Unknown IS-Oexjsewcag-JJA [facility] DO Work Phone: 10-30-2022 13:37-0400 Respiratory rate 18 /min Referring Provider Unknown KG-Tfttehhnhp-HJK [facility] DO Work Phone: 10-30-2022 13:37-0400 Systolic blood pressure 132 mm[Hg] Referring Provider Unknown GF-Kcowbmbbfa-PFI [facility] DO Work Phone: 09-27-2021 15:06-0400 Diastolic blood pressure 80 mm[Hg] Juan Wu MD Work Phone: [facility] 09-27-2021 15:06-0400 Systolic blood pressure 142 mm[Hg] Juan Wu MD Work Phone: [facility] 09-27-2021 14:49-0400 Body height 175.3 cm Juan Wu MD Work Phone: [facility] 09-27-2021 14:49-0400 Body mass index (BMI) [Ratio] 29.68 kg/m2 Juan Wu MD Work Phone: [facility] 09-27-2021 14:49-0400 Body weight 91.17 kg Juan Wu MD Work Phone: [facility] 09-27-2021 14:49-0400 Heart rate 58 /min Juan Wu MD Work Phone: [facility] 09-27-2021 14:49-0400 SaO2% (BldA) [Mass fraction] 97 % Juan Wu MD Work Phone: [facility] 12-13-2016 14:19-0400 Heart rate 51 /min Yanique Fernandoby [facility] Work Phone: 12-13-2016 13:11-0400 BP Diastolic 64 mm[Hg] Yanique Enriquez [facility] Work Phone: 12-13-2016 13:11-0400 BP Systolic 118 mm[Hg] Yanique Enriquez [facility] Work Phone: 12-13-2016 13:11-0400 Pulse (Heart Rate) 52 /min Yanique Enriquez [facility] Work Phone: 12-13-2016 13:11-0400 Respiratory Rate 18 /min Yanique Enriquez [facility] Work Phone: 06-04-2016 10:21-0500 Heart rate 61 /min Harumi DeFinis [facility] Work Phone: 06-04-2016 09:04-0500 BMI (Body Mass Index) 31.16 kg/m2 Harumi DeFinis [facility] Work Phone: 06-04-2016 09:04-0500 BP Diastolic 62 mm[Hg] Harumi DeFinis [facility] Work Phone: 06-04-2016 09:04-0500 BP Systolic 110 mm[Hg] Harumi DeFinis [facility] Work Phone: 06-04-2016 09:04-0500 BSA (Body Surface Area) 2.02 m2 Noa Gonzalez [facility] Work Phone: 06-04-2016 09:04-0500 Height 170.18 cm Noa Gonzalez [facility] Work Phone: 06-04-2016 09:04-0500 Pulse (Heart Rate) 66 /min Noa Gonzalez [facility] Work Phone: 06-04-2016 09:04-0500 Respiratory Rate 18 /min [facility] Work Phone: 06-04-2016 09:04-0500 Weight 90.27 kg Noa Gonzalez [facility] Work Phone: Encounters Encounter Date Encounter Type Care Provider Facility Start: 12-26-2022 Refill Rashida Hay To yolandai TECHNOLOGIST [facility] Procedures Date Procedure Procedure Detail Performing Clinician Start: 09-16-2020 Antibody screen Plan of Treatment Date Care Activity Detail Author Start: 02-22-2023 Influenza vaccination [facility] Start: 12-14-2022 Pneumococcal Vaccine: Age 65+ (2 - PCV) Pneumococcal Vaccine: Age 65+ (2 - PCV) [facility] Start: 11-14-2022 NPV, Provider: Iglesia Martin, Status: Pen, Time: 3:00 PM NPV, Provider: Iglesia Martin, Status: Pen, Time: 3:00 PM UT-Cqbamkoiqs-JUI [facility] DO Work Phone: Start: 10-30-2022 NPV, Provider: Viet House, Status: Pen, Time: 2:30 PM NPV, Provider: Viet House, Status: Pen, Time: 2:30 PM XK-Jendrfqxpb-AJV [facility] DO Work Phone: Start: 10-30-2022 PVRWITHABI, Provider: [id number], Status: Pen, Time: 1:00 PM PVRWITHABI, Provider: [id number], Status: Pen, Time: 1:00 PM MC-Tkyphhogiz-CII [facility] DO Work Phone: Start: 02-22-2022 Influenza vaccination [facility] Start: 01-24-2022 End: 01-24-2022 Admission to same day surgery center 01/24/2022 Surgery Cardiology Juan Wu MD [address] [place] [address] Peripheral Lower Extremity Angiogram Possible Intervention [facility] 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 Immunizations Immunization Date Immunization Notes Care Provider Fa cility 07-02-2022 pneumococcal polysaccharide vaccine, 23 valent Referring Provider Unknown TN-Bbwwtzphwj-TXM [facility] DO Work Phone: 03-24-2022 Fluzone High-Dose Quadrivalent 0.7 ML Intramuscular Suspension Prefilled Syringe Referring Provider Unknown QI-Okgfrhthmo-FYM [facility] DO Work Phone: 03-24-2022 Pfizer COVID-19 Vac Bivalent 30 MCG/0.3ML Intramuscular Suspension Referring Provider Unknown PX-Sgrmazxbwg-SEZ [facility] DO Work Phone: 12-14-2021 pneumococcal polysaccharide vaccine, 23 valent Mallorie Guardado RN [facility] 10-05-2021 Comirnaty 30 MCG/0.3 ML Intramuscular Suspension Referring Provider Unknown SM-Ezhntfhibf-BSZ [facility] DO Work Phone: 03-30-2021 Pfizer-BioNTech COVI D-19 Vacc 30 MCG/0.3ML Intramuscular Suspension Referring Provider Unknown XY-Fdstzhufon-UNI [facility] DO Work Phone: 08-12-2020 Pfizer-BioNTech COVI D-19 Vacc 30 MCG/0.3ML Intramuscular Suspension Referring Provider Unknown AR-Xtuoepmspg-JBA [facility] DO Work Phone: 07-15-2020 Pfizer-BioNTech COVI D-19 Vacc 30 MCG/0.3ML Intramuscular Suspension Referring Provider Unknown CK-Jzuskxjaum-JKH [facility] DO Work Phone: 03-31-2018 influenza, high dose seasonal, preservative-free Referring Provider Unknown DF-Htkcrvndqh-JOW [facility] DO Work Phone: 04-05-2015 influenza, seasonal, injectable Referring Provider Unknown OQ-Mgtqemytpc-VKN [facility] DO Work Phone: Payers Date Payer Category Payer Unknown [id number] 2019 Unknown [id number] 2005 Medicare MEDICARE MEDICAR E PART A & B [id number] 2005-Present [phone] [id number] [place] [address] [id number] 2005 Medicare [id number] 1940 Unknown [id number] 1940 Unknown [id number] 1940 Unknown [id number] 1940 Unknown [id number] 1940 Unknown [id number] 1940 Unknown [id number] 1940 Unknown [id number] 1940 Unknown [id number] 1940 Unknown [id number] 1940 Unknown [id number] Social History Date Type Detail Facility Tobacco smoking status 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 consumption unknown [facility] Start: 1940 Sex Assigned At Not on file [facility] Start: 09-27-2021 Tobacco smoking status DCIS Never sm oked tobacco [facility] Start: 09-27-2021 Tobacco use and exposure Smokeless t obacco non-user [facility] Start: 10-08-2021 End: 01-26-2022 Alcohol intake Current drinker of alcohol (finding) [facility] Start: 09-27-2021 History SDOH Alcohol Comment Very Ra rley [facility] Start: 09-17-2021 End: 12-13-2021 Exposure to SARS-CoV-2 (event) Not sure [facility] Start: 09-27-2021 End: 01-26-2022 Cigarette pack-years [facility] Start: 01-26-2022 Tobacco use panel [facility] Start: 12-13-2021 Gender identity Identifies as male gender (finding) [facility] Start: 12-13-2021 Sexual orientation Heterosexual (fin ding) [facility] Medical Equipment Procedure Code Equipment Code Equipment Origin al Text Equipment Identifier Dates Closure 6fr Angioseal Vip - [id number] [facility] Start: 12-13-2021 Closure 5fr Vasc ular Mynx W/Extra Seo Professional Min Order 10 - [id number] [facility] Start: 01-24-2022 Clinical Notes 09-16-2020 to 12-26-2022 Telephone Encounter - Rashida Saldaña TECHNOLOGIST - 12/26/2022 8:28 AM EDTTelephone Encounter - Rashida Saldaña TECHNOLOGIST - 12/26/2022 8:28 AM EDJessi Hill MA - 09/27/2021 3:03 PM EDT Note Date & Type Note Facility 12-26-2022 Telephone encounter Note Source:RF Prescription:Cilostazol 50mg Amount of medication:180 Refill:3 Recall: Sent to yarding supervisor: Last appt:09/27/21 Next appt:return if symptoms worsen [facility] 12-26-2022 Miscellaneous Notes Source:RF Prescription:Cilostazol 50mg Amount of medication:180 Refill:3 Recall: Sent to yarding supervisor: Last appt:09/27/21 Next appt:return if symptoms worsen documented in this encounter [facility] 11-05-2022 Telephone encounter Note Received refill request electronically via inbasket. Pt last seen 09/27/2021, F/u in PRN. Refilled Clopidogrel 75mg Daily #90 with 3. Rx sent to [facility] 11-05-2022 Miscellaneous Notes Received refill request electronically via inbasket. Pt last seen 09/27/2021, F/u in PRN. Refilled Clopidogrel 75mg Daily #90 with 3. Rx sent to [facility] documented in this encounter [facility] 01-28-2022 History of Present illness Narrative 82 yr old male CAD, NH s/p PCI x3 XU (2016), PAD s/p unsuccessful ASSAYER to the left PT by Dr. 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 Elliot Gleason for assessment of PAD [...] on the wound as instructed by his wet primer powder blender. He wears compression stocking, which he had on for this visit to help with the edema. He tries to elevate it but its difficult for him due to the spinal injury. He denies prior or routine workup for his heart, diabetes or kidney since he had NH. He reported was briefly in afib after taking Abx but once it was stopped returned to normal rhythm. He is not very ambulatory, uses wheelchair and walker to get around. Pt denies CP, SOB, palpitation, syncope,PND fever, chills or night sweats. HV-Dqwmamolsd-Ukdmg [facility] Work Phone: 01-28-2022 History of Present illness Narrative 82 yr old male CAD, NH s/p PCI x3 XU (2015), PAD s/p unsuccessful ASSAYER to the left PT by Dr. 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 Elliot Gleason for assessment of PAD [...] on the wound as instructed by his wet primer powder blender. He wears compression stocking, which he had on for this visit to help with the edema. He tries to elevate it but its difficult for him due to the spinal injury. He denies prior or routine workup for his heart, diabetes or kidney since he had NH. He reported was briefly in afib after taking Abx but once it was stopped returned to normal rhythm. He is not very ambulatory, uses wheelchair and walker to get around. Pt denies CP, SOB, palpitation, syncope,PND fever, chills or night sweats. [facility] Work Phone: 01-28-2022 History of Present illness Narrative 82 yr old male CAD, NH s/p PCI x3 XU (2015), PAD s/p unsuccessful ASSAYER to the left PT by Dr. 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 Elliot Gleason for assessment of PAD [...] on the wound as instructed by his wet primer powder blender. He wears compression stocking, which he had on for this visit to help with the edema. He tries to elevate it but its difficult for him due to the spinal injury. He denies prior or routine workup for his heart, diabetes or kidney since he had NH. He reported was briefly in afib after taking Abx but once it was stopped returned to normal rhythm. He is not very ambulatory, uses wheelchair and walker to get around. Pt denies CP, SOB, palpitation, syncope,PND fever, chills or night sweats. SR-Muuhktauhb-MOX [facility] DO Work Phone: 10-08-2021 Note Addended by: JUAN WU on: 10/08/2021 08:45 PM Modules accepted: Orders [facility] 10-08-2021 Note Addended by: JUAN WU on: 10/08/2021 08:45 PM Modules accepted: Orders [facility] 10-08-2021 Miscellaneous Notes Addended by: [...] aspirin and statin documented in this encounter [facility] 10-08-2021 Evaluation + Plan note Associated Problem(s): Nonhealing skin ulcer (HCC) Continue as per Dr. Gleason [facility] 10-08-2021 Evaluation + Plan note Associated Problem(s): PAD (peripheral artery disease) (HCC) Ascending We will see if he had formal noninvasive vascular testing recently, if not, we will repeat it and if it shows significant stenosis proximal to his wound that may be impacting wound healing, we will pursue invasive angiography. Continue aspirin and statin [facility] 10-04-2021 History of Present illness Narrative Peripheral Vascular Cardiology Clinic Consult Heart & Vascular [facility] 09/27/2021 Juan Wu MD [address] [address] Patient: Sara Saha Date of [...] coronary stent and follows with a local sfdc consultant. He previously saw vascular specialist also locally who did not feel any further evaluation was warranted. I was able to review records from his wound care wet primer powder blender to did some office testing suggesting tibial [...] patient is nervous/anxious. documented in this encounter [facility] 01-04-2021 Note HNO ID: [id number] Author: Cole Neves MD Service: ? Author [...] Doing great RTC PRN Cole Neves MD [facility] 11-03-2020 Note HNO ID: [id number] Author: Curtis Fragoso PA-C Service: ? Author Type: Physician Cardiology Tech Type: Progress Notes Filed: 11/03/2020 1:44 PM [...] ? Follow-up 6 months PIETER Robles MD [facility] 11-01-2020 History of Present illness Narrative 82 yr old male CAD, NH s/p PCI x3 XU (2016), spinal cord [...] intact sensation.he comes with his daughter Gwendolyn EU-Dnczuphhtf-MTT [facility] DO Work Phone: 09-23-2020 Note HNO ID: [id number] Author: Tabby ChaconRn) HODA Valenzuela Service: Care Management Author Type: Registered Nurse Type: Care Mgt Progress Note Filed: 09/23/2020 7:51 AM Note Text: CARE MANAGEMENT DISCHARGE NOTE SERVICE DATE: 09/23/2020 SERVICE TIME: 7:49 AM LOS: 7 days Admission Date: 09/16/2020 DISCHARGE ARRANGEMENT (list agency and phone number) Discharge Arrangement: Acute rehab Provider Name: [facility] [place] Phone: Nurse to Nurse report #: [phone] CAREGIVER ASSESSMENT: Caregiver is ready, willing and [...] AR.) Primary Care Physician Name/Phone: Dr. Larios [phone] TRANSPORTATION ARRANGEMENTS: Transportation Arrangements: Ambulance/[facility] Agency and Phone #:: [facility] [phone] Date of Trip: 09/23/20 Time of Trip: 0900 Type of Service: BLS Non-emergency Is Patient Medicaid Pending?: No Discussion of financial coverage occurred with: Patient;Family Cathode Builder Location: Main [place] Destination: [facility] Financial Care Management Responsibility: None IMM Follow Up Copy Given: No Reason: Acute Rehab D/C today to [facility] [place] via [facility] transportation @ 9:00am as agreed upon by patient, medical team, AR. Report # provided and nurse aware. Chart envelope updated on inpatient rack. D/C instructions sent to AR via [facility]. D/C summary sent to AR via [facility]. SIGNATURE: Tabby Valenzuela RN PATIENT NAME: Sara Saha DATE: September 23, 2020 TIME: 7:49 AM PAGER/CONTACT #: [phone] [facility] 09-22-2020 Note HNO ID: [id number] Author: Tabby ChaconRn) HODA Valenzuela Service: Care Management Author Type: Registered Nurse Type: Care Mgt Initial Assessment Filed: 09/22/2020 10:19 AM Note Text: CARE MANAGEMENT PROGRESS NOTE SERVICE DATE: 09/22/2020 SERVICE TIME: 10:16 AM LOS: 6 days Needs Prior to Discharge: Ready for Discharge D/C ready. [facility] @9am via [facility] transportation. tasked [facility] for transport today if possible. Will follow for d/c planning needs. SIGNATURE: Tabby Valenzuela RN PATIENT NAME: Sara Saha DATE: September 22, 2020 TIME: 10:16 AM PAGER/CONTACT #: [phone] [facility] 09-22-2020 Note HNO ID: [id number] Author: Aj Hernandez Service: Neurosurgery Author Type: Physician Cardiology Tech Type: Progress Notes Filed: 09/22/2020 9:36 AM Note Text: SERVICE DATE: 09/22/2020 SERVICE TIME: 9:36 AM SPINE SURGERY TEAM PROGRESS NOTE After 4 PM (1600) please page Zan Waite PA-C [phone]. After 1800, and weekends please page [phone]. Attending: Dr. Cole Neves Location: H060 025/H060-26 [...] drain today PT/O (more content not included)... [facility] 09-21-2020 Note HNO ID: [id number] Author: Aj Hernandez Service: Neurosurgery Author Type: Physician Cardiology Tech Type: Progress Notes Filed: 09/21/2020 11:42 AM Note Text: SERVICE DATE: 09/21/2020 SERVICE TIME: 11:42 AM SPINE SURGERY TEAM PROGRESS NOTE After 4 PM (1600) please page Zan Waite PA-C [phone]. After 1800, and weekends please page [phone]. Attending: Dr. Cole Neves Location: H060 025/H060 [...] lines Mobilize QID (more content not included)... [facility] 09-21-2020 Note HNO ID: [id number] Author: Karena Vora (Sw) Service: Care Management Author Type: Retail Operations Manager Type: Care Mgt Progress Note Filed: 09/21/2020 10:58 AM Note Text: CARE MANAGEMENT PROGRESS NOTE SERVICE DATE: 09/21/2020 SERVICE TIME: 9:59 AM LOS: 5 days Patient has been accepted to [facility] Acute Rehab. Plan for d/c tomorrow pending transport availability. [facility] tasked to assist with scheduling long distance transport. Nurse report can be called to [phone] Addendum 10:52 AM Referrals sent to the following transport companies with the following results: [facility] - available to provide trip Saturday at 0900 [facility] - Please try back tomorrow for availability 14/[facility] - unable to accept patient [facility] - unable to accept patient [facility], [facility] - unable to accept patient [facility] - No response as of 1055 Trip scheduled for Saturday at 0900 with [facility]. Facility and patient's family updated. Floor CM will continue to follow. SIGNATURE: RAKAN Wiley PATIENT NAME: Sara Saha DATE: September 21, 2020 TIME: 9:59 AM PAGER/CONTACT #: [phone] [facility] 09-20-2020 Note HNO ID: [id number] Author: Karena Vora (Sw) Service: Care Management Author Type: Retail Operations Manager Type: Care Mgt Progress Note Filed: 09/20/2020 3:42 PM Note Text: CARE MANAGEMENT PROGRESS NOTE SERVICE DATE: 09/20/2020 SERVICE TIME: 3:40 PM LOS: 4 days [place] of Choice Given: Yes Level of Care Discussed: Inpatient Rehab Facility Financial Disclosure Provided: Yes Provider List: Rehab Facility Provider list within the patient's requested geographic area shared with the patient/family: Yes within: 25 miles (As well and [place] connected facilities) of zip code: [address] met with patient and his daughter Arti at bedside and discussed FOC. Patient selected [facility]'s acute rehab. Referral tasked to [facility], awaiting acceptance. No precert required. D/c transport will need to be arranged. SW will continue to follow. SIGNATURE: RAKAN Wiley PATIENT NAME: Sara Saha DATE: September 20, 2020 TIME: 3:40 PM PAGER/CONTACT #: [phone] [facility] 09-20-2020 Note HNO ID: [id number] Author: Aj Hernandez Service: Neurosurgery Author Type: Physician Cardiology Tech Type: Progress Notes Filed: 09/20/2020 10:54 AM Note Text: SERVICE DATE: 09/20/2020 SERVICE TIME: 10:54 AM SPINE SURGERY TEAM PROGRESS NOTE After 4 PM (1600) please page Zan Waite PA-C [phone]. After 1800, and weekends please page [phone]. Attending: Dr. Cole Neves Location: [facility] 025/H060-26 Hospital Day: 5 09/19/2020 1 Day [...] Dr. Neves Psychiatry (more content not included)... [facility] 09-19-2020 Note HNO ID: [id number] Author: Olivier (Sabina) Juan Service: Orthopaedic Surgery [...] Flexion Arm Extension Wrist Ext Wrist Flex Seo Professional HI R 5 5 4+ 5 5 [...] discharge Olivier Martinez MD, PGY-1 Orthopaedic Surgery p:[phone] If after 6PM and before 6AM OR on Weekends OR for Emergent needs, please page [phone] ([phone]) [facility] 09-19-2020 Note HNO ID: [id number] Author: Karena Vora (Sw) Service: Care Management Author Type: Retail Operations Manager Type: Care Mgt Progress Note Filed: 09/19/2020 [...] 19, 2020 TIME: 10:40 AM PAGER/CONTACT #: [phone] [facility] 09-19-2020 Note HNO ID: [id number] Author: Olivier Martinez Service: Orthopaedic Surgery Author Type: Resident Type: Plan of Care Filed: 09/19/2020 7:41 AM Note Text: Orthopaedic Surgery: Plan of Care Note Preoperative Exam: Upper Extremities UE Arm Abduction Arm Flexion Arm Extension Wrist Ext Wrist Flex Seo Professional HI R 5 5 4+ 5 5 [...] pulse Olivier Martinez MD, PGY-1 Orthopaedic Surgery p:[phone] After 5pm or on weekends, or if urgent and unable to reach, please page [phone]) [facility] 09-18-2020 Note HNO ID: [id number] Author: Keanu Leary MD Service: Neurosurgery Author Type: Resident Type: Plan of Care Filed: 09/18/2020 1:07 PM Note Text: Neurosurgery Plan of Care Assessment/Plan -Will move OR date to 09/19 due to new availability -NPO at midnight -Pre-op labs already completed (covid/typescreen from 09/16) Keanu Leary MD PGY-2, Neurological Surgery Pager: [phone] 1:07 PM 09/18/20 Please page [phone] after 6pm [facility] 09-18-2020 Note HNO ID: [id number] Author: Keanu Leary MD Service: Neurosurgery Author [...] PMH significant for HTN, HLD, CAD c/b NH s/p stents in 2016 (on DAPT), PAD, [...] Keanu Leary MD PGY-2, Neurological Surgery Pager: [phone] 10:14 AM 09/18/20 Please page [phone] after 6pm [facility] 09-18-2020 Note HNO ID: [id number] Author: Sylvia ChaconRn) HODA Castillo Service: Nursing Author Type: Registered Nurse Type: Nursing Progress Note Filed: 09/17/2020 11:13 PM Note Text: patient refuses to wear IPC's stockings. Team notified. Patient educated about prevention [facility] 09-17-2020 Note HNO ID: [id number] Author: Keanu Navas (Res) MD Gibran Service: [...] PMH significant for HTN, HLD, CAD c/b NH s/p stents in 2016 (on DAPT), PAD, [...] Keanu Leary MD PGY-2, Neurological Surgery Pager: [phone] 10:55 AM 09/17/20 Please page [phone] after 6pm 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 Stated Goals: To improve my functional status;To [...] Walker;Cane Has the Patient Been in a Fpc Facility in the Past 30 days?: No SOCIAL: Living Arrangements: Home Lives With: Alone Financial Resources: Retired Primary Contact: Extended Emergency Contact Information Primary Emergency Contact: Arti Mccabe Mobile Relation: Daughter Supportive Patient Contact:: Yes Contact Resources: Family Family Name/Phone: Arti Mccabe ([facility]) [phone] (Q) Caregiver AssessmentCaregiver is ready, willing and able [...] Completely I feel financially burdened by my zhu-up-hsioac expenses for my prescription medication:: 0 - Disagree Completely Risk Score: 0 Patient is categorized as: Low risk < 2 Are you interested in bedside delivery of your medications? Yes Is Patient Psychosocially Complex?: No ASSESSMENT AND PLAN: Medical Needs: Medical Needs: None Psychosocial Needs: Psychosocial Needs: None FREEDOM OF CHOICE EXPLAINED: [place] of Choice Given: No Reason Not Given: [...] concerns, updates, or needs, please contact pager #[phone] SIGNATURE: RAKAN Wiley PATIENT NAME: Sara Saha DATE: September 16, 2020 TIME: 1:10 PM PAGER/CONTACT #: [phone] [facility] 09-16-2020 Note HNO ID: [id number] Author: Flo Damico (Tech) Service: Radiology Author Type: Director Global Sales Type: Progress Notes Filed: 09/16/2020 12:16 PM [...] Flo Damico September 16, 2020 12:[address] [facility] Chief complaint Narrative - Reported SARA SAHA is being seen for a consultation for PAD and non-healing wound. XZ-[id number]-[id number] I Work Phone: Chief complaint Narrative - Reported SARA SAHA is being seen for a consultation for PAD and non-healing wound. [facility] Work Phone: Chief complaint Narrative - Reported SARA SAHA is being seen for a consultation for PAD and non-healing wound. [id number]-ZYW Florencia Elkins DO Work Phone: [facility] Dys[facility]- Primary Other and unspecified hyperlipidemia PAD (peripheral artery disease) (HCC) Unspecified peripheral vascular disease Coronary artery disease involving [place] coronary artery of [place] heart without angina pectoris Nonhealing skin ulcer, unspecified ulcer stage (HCC) [facility] Nonhealing skin ulcer, unspecified ulcer stage (HCC)- Primary [facility] Diagnosis PAD (peripheral artery disease) (HCC)- Primary Unspecified peripheral vascular disease Coronary artery disease involving [place] coronary artery of [place] heart without angina pectoris documented in this encounter [facility] Summary Purpose Family History No Family History Records FoundNo Family History Records FoundNo Family History Records FoundNo Family History Records FoundNo Family History Records FoundNo Family History Records FoundNo Family History Records Found Advance Directives Documents on File Type Date Recorded 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 Advance Directives and Living Will Documents on File Type Date Recorded 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 Advance Directives and Livin g Will 10/24/2021 12:32 PM Documents on File Type Date Recorded 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 Advance Directives and Livin g [...] (HCC) Elliot Gleason, MADDY [address] [place] [address] Juan Wu MD [address] [facility] [address] [place] [address] Referral ID Status Reason Start Date Expiration Date Visits Requested Visits Authorized [id number] Authorized Specialty Services Required/Pat ient's Best Interest 09/13/2021 09/13/2022 1 1 Specialty Diagnoses / Procedures Referred By Contac t Referred To Contact Cardiology Diagnoses PAD (peripheral artery disease) (HCC) Nonhealing skin ulcer, unspecified ulcer stage (HCC) Procedures Ultrasound duplex arterial leg left Juan Wu MD [address] [facility] [address] [place] [id number] Referral ID Status Reason Start Date Expiration Date V isits Requested Visits Authorized [id number] New Request 10/08/2021 10/08/2022 1 1 Specialty Diagnoses / Procedures Referred By Contac t Referred To Contact Cardiology Diagnoses PAD (peripheral artery disease) (HCC) Nonhealing skin ulcer, unspecified ulcer stage (HCC) Procedures Ultrasound ankle / brachial indices extremity complete Juan Wu MD [address] [facility] [address] [place] [address] Referral ID Status Reason Start Date Expiration Date V isits Requested Visits Authorized [id number] New Request 10/08/2021 10/08/2022 1 1 Additional Source Comments (unrecognized sect ion and content) No Status Records FoundNo Status Records FoundNo Status Records FoundNo Status Records FoundNo Status Records FoundNo Status Records FoundNo Status Records Found INFORMATION SOURCE (unrecogn ized section and content) DATE CREATED AUTHOR [facility]S [facility]IZ AT[facility] AUTHOR AUTHOR'S ORGANIZ ATION 01/11/2022 [facility] DATE CREATED AUTHOR AUTHOR'S ORGANIZ ATION 02/02/2022 [facility] DATE CREATED AUTHOR AUTHOR'S ORGANIZ ATION 03/26/2022 [facility] DATE CREATED AUTHOR AUTHOR'S ORGANIZ ATION 11/03/2022 [facility] DATE CREATED AUTHOR AUTHOR'S ORGANIZ ATION 11/30/2022 [employer] Reason for Visit (unrecogniz ed section and content) Specialty Diagnoses / Procedures Referred By Ananda alaniz Referred To Contact Cardiology Diagnoses PAD (peripheral artery disease) ([facility]) Elliot Gleason, DPM [address] [place] [address] Juan Wu MD [address] [facility] [address] [place] [address] Referral ID Status Reason Start Date Expiration Date V isits Requested Visits Authorized [id number] Closed Specialty Services Required/[place] ent's Best Interest 09/13/2021 09/13/2022 1 1 Reason Onset Date Comments Medication Refill 12/26/2021 Reason Comments Medication Refill Clopidogrel Reason Onset Date Comments Medication Refill 12/26/2022 Cilostazol 50m g Care Teams (unrecognized sec tion and content) Collection Systems Technician Relationship Specialty Start Date End Date Antoni Wang MD [address] [place] [address] PCP - General Family Medicine 09/14/21 Collection Systems Technician Relationship Specialty Start Date End Date Antoni Wang MD [address] [place], [place] [phone] PCP - General Family Medicine 09/14/21 Collection Systems Technician Relationship Specialty Start Date End Date Antoni Wang MD [address] [place] [address] PCP - General Family Medicine 09/14/21 Collection Systems Technician Relationship Specialty Start Date End Date Antoni Wang MD [address] [place] [address] PCP - General Family Medicine 09/14/21 Collection Systems Technician Relationship Specialty Start Date End Date Antoni Wang MD [address] [place], [place] [id number] PCP - General Family Medicine 09/14/21 Collection Systems Technician Relationship Specialty Start Date End Date Antoni Wang MD [address] [place] [address] PCP - General Family Medicine 09/14/21 FOR [...] BE BASED ON THE PRIMARY CLINICAL RECORDS. [employer] [facility]. provides no warranty or guarantee of the accuracy or completeness of information in this document.
[2023-07-16 18:56] VITALS: BP 101/54; PULSE 68; RESP 18; TEMP 36.8; O2SAT 94; BMI 27.0
[2023-07-16 20:05] VITALS: O2SAT 94
[2023-07-16 21:37] VITALS: BMI 27.0
[2023-07-16] MEDS: Ensure Plus High Protein 120 ML LIQUID PO (21:46)
[2023-07-16] MEDS: Amox/Clavulanate 875 MG Tablet PO (21:46)
[2023-07-16] MEDS: Pramipexole Di-HCl 0.25 MG Tablet PO (21:47)
[2023-07-16] MEDS: Cilostazol 50 MG Tablet PO (21:47)
[2023-07-16] MEDS: Gabapentin 100 MG Capsule 200 MG PO (21:49)
[2023-07-16 22:00] VITALS: BP 124/60; PULSE 76; PULSE 77; RESP 16; TEMP 36.4; O2SAT 95
[2023-07-16] MEDS: tiZANidine HCl 2 MG Tablet 4 MG PO (22:14)
[2023-07-17] MEDS: Enoxaparin 40 MG/0.4 ML Syringe SC (05:51)
[2023-07-17] MEDS: 0.9% Saline Lock 10 ML Syringe IV (05:54)
[2023-07-17 06:00] VITALS: BMI 27.1
[2023-07-17 07:22] VITALS: O2SAT 93
[2023-07-17 07:45] VITALS: BP 107/56; PULSE 73; RESP 18; TEMP 36.6; O2SAT 94
[2023-07-17] MEDS: Amox/Clavulanate 875 MG Tablet PO ×2 (08:56→21:16)
[2023-07-17] MEDS: Potassium Chloride Oral Tablet 20 MEQ PO ×2 (08:56→16:48)
[2023-07-17] MEDS: Menthol/Lanolin/Calamine/Znox 113 GM Tube 1 APPLIC TOPICAL ×2 (08:56→21:16)
[2023-07-17] MEDS: Citalopram 10 MG Tablet PO (08:57)
[2023-07-17] MEDS: Cilostazol 50 MG Tablet PO ×2 (08:57→21:16)
[2023-07-17] MEDS: Cyanocobalamin 500 MCG Tablet 1000 MCG PO (08:57)
[2023-07-17] MEDS: Clopidogrel Bisulfate 75 MG Tablet PO (08:57)
[2023-07-17] MEDS: Finasteride 5 MG Tablet PO (08:58)
[2023-07-17] MEDS: Ensure Plus High Protein 120 ML LIQUID PO ×4 (09:00→21:16)
[2023-07-17] MEDS: Atorvastatin Calcium 80 MG Tablet PO (10:00)
[2023-07-17] MEDS: Gabapentin 100 MG Capsule PO (10:00)
[2023-07-17 14:50] VITALS: BMI 27.1
--- NOTE | 2023-07-17 15:03 | HP.PCM_ITS ---
HPI - General General Date of Admission: 07/16/23 Date of Service: 07/17/23 Chief Complaint: Physical debility due to weakness and non-healing wound HPI Narrative SARA SAHA, is a 83 YO M who presents Lloyd was recently admitted to acute rehab by Dr. Gómez on 04/30/23 for post stroke debility. Following acute rehab he was admitted to the transitional care unit and was discharged home on 06/20/2023. He was discharged with a Wound vac and [facility] for a non-healing wound over the L Achilles. 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 He lives by himself but, his dtr lives only 3 miles away and she checks on him frequently. Lloyd and his dtr presented to the ED at [facility] on 07/15/2023 for progressive decline in his functional abilities since being discharged from TCU. He was getting [facility] with therapy but, still experienced progressive decline. W/U in the ED was benign and he was admitted to the hospitalist service for observation. Gal was seen by the wound care/ostomy nurse following admission to the hospital for a left heel decubitus ulcer wound on the R anterior regalado and left Achilles ulcer. Had a wound vac at home and the wounds are improving. Lloyd was transferred to the acute rehab unit on 07/16/2023 for 3 hours of therapy daily to restore strength/independence at or near his prior level and to continue aggressive wound care. MRI in April was negative for acute or subacute stroke and it was a non- contrast MRI. There is no teleneurology consult from that admission in the EMR so a neurologist did not overread the radiology report. He had dysarthria and R hemiparesis for a few days prior to coming to the ED to be evaluated. NIHSS score was 1 in the emergency department for dysarthria. Admitted to the hospital on 04/25/2023 for suspected stroke......sx lasted longer than 24 hours and this is not consistent with TIA. Transferred to the acute rehab unit on 04/30/2023 for PT/OT/ST. Transferred to TCU on 05/15/2023 for additional therapy prior to returning home. Discharged home on 06/20/2023 with home health care for therapy and wound management. He was in [facility] from 04/25/23 to 06/20/23 and he got stronger. He went home with therapy and wound care and now is back at [facility] for failure to thrive/generalized weakness in less than 1 month. I suspect it is time to approach Lloyd and his dtr about alternative living situations. All lab done 07/16/2023 was personally reviewed. Hemoglobin is 9.1, down from 10.2 on 06/20/2023. White blood cell count is normal. MCV is normal at 92. RDW standard deviation and RDW coefficient of variation are both elevated. Platelets are within normal limits. Chemistries showed a sodium of 138 and a potassium of 3.5. The BUN is 15 and the creatinine is 0.68 which is within his baseline. Calcium was normal. I reviewed the iron studies done in early April and the patient had an iron saturation of 11.5% which is consistent with iron deficiency. Serum iron was also low. Ferritin was 46. Echocardiogram done 04/25/2023 showed a normal left ventricular ejection fraction, right atrial enlargement and indeterminate diastolic function. EGD done on 04/29/2023 showed abnormal esophageal dysmotility suspicious for achalasia, small hiatal hernia, acquired duodenal stenosis and congested duodenal mucosa. Biopsy of the Z-line was negative for dysplasia. Protonix BID was recommended but, Lloyd stopped this after going home because he though it was causing diarrhea......he had been taking it BID while in the hospital for 2 months prior to going home and then developing diarrhea. He was placed on an antibiotic a few days prior to this admission to the hospital for suspected cellulitis of the LLE. [facility] Medical History (Updated 07/18/23 @ 18:[address] 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) Orthostatic hypotension Osteoarthritis PAD (peripheral artery disease) Paroxysmal atrial fibrillation Pressure ulcer Renal cyst Restless leg syndrome Stenosis of cervical spine with myelopathy TIA (transient ischemic attack) Tobacco dependence in remission Urinary incontinence Urine retention Home Medications finasteride 5 mg tablet (Proscar) 5 mg PO DAILY PROSTATES 07/18/17 [History Last Taken 07/16/23] cilostazol 50 mg tablet 50 mg PO BID vasodilator 02/02/22 [History Last Taken 07/16/23] clopidogrel 75 mg tablet 75 mg PO DAILY BLOOD THINNER 02/02/22 [History Last Taken 07/16/23] cyanocobalamin (vitamin B-12) 1,000 mcg tablet 1,000 mcg PO DAILY SUPPLEMENT 04/01/23 [History Last Taken 07/16/23] gabapentin 100 mg capsule 100 mg PO DAILY nerve pain 04/25/23 [History Last Taken 07/16/23] gabapentin 100 mg capsule 200 mg PO QHS NERVE PAIN 04/25/23 [History Last Taken 07/15/23] tizanidine 2 mg tablet 2 - 4 mg PO QHS PRN muscle spasm 05/03/23 [History Last Taken 05/14/23] citalopram 10 mg tablet 10 mg PO DAILY DEPRESSION 30 days #30 tabs 06/12/23 [Rx Last Taken 07/16/23] pramipexole 0.25 mg tablet 0.25 mg PO QHS PARKINSON'S 30 days #30 tabs 06/12/23 [Rx Last Taken 07/15/23] acetaminophen 500 mg tablet 1,000 mg PO Q6H PRN Pain Score 1-10 07/15/23 [History Last Taken 07/14/23] amoxicillin 875 mg-potassium clavulanate 125 mg tablet 1 tab PO BID ANTIBIOTIC 07/15/23 [History Last Taken 07/14/23] atorvastatin 80 mg tablet 80 mg PO DAILY CHOLESTEROL 07/15/23 [History Last Taken 07/15/23] miconazole nitrate 2 % topical powder (Desenex) 1 applic topical BID PRN redness 07/15/23 [History Last Taken 07/13/23] enoxaparin 40 mg/0.4 mL subcutaneous syringe 40 mg (0.4 mL) subcut DAILY propaltic #0 mL 07/16/23 [Rx Last Taken 07/16/23] food supplemt, lactose-reduced 0.08 gram-1.5 kcal/mL oral liquid (Ensure Plus High Protein) 120 ml PO 4X/DAY supplement #0 mL 07/16/23 [Rx Last Taken 07/16/23] melatonin 3 mg tablet 3 mg PO QHS PRN PRN Insomnia #0 tabs 07/16/23 [Rx Last Taken Unknown] potassium chloride 20 mEq tablet,extended release(part/cryst) 20 meq PO BIDCM supplement #0 tabs 07/16/23 [Rx Last Taken 07/16/23] Allergy/AdvReac Type Severity Reaction Status Date / Time No Known Allergies Allergy Verified 07/15/23 21:45 Family History Mother CHF (congestive heart failure) Heart disease Hypertension Father COPD (chronic obstructive pulmonary disease) Surgical History H/O laminectomy History of coronary artery stent placement (01/11/16) History of knee surgery History of pilonidal cyst History of vascular surgery S/P debridement S/P rotator cuff repair Social History (Updated 07/18/23 @ 18:[address] Yas Quan DO) household members: none housing: house number of children: 5 current occupation: retired current occupational exposures/hazards: No history of recent travel: No Smoking Status: Former smoker how long ago did patient quit smokin alcohol intake: current alcohol intake frequency: holidays/special occasions only details: occasional,holiday substance use type: does not use caffeine: Yes Type: coffee Number of servings: 10 what type of physical activity do you participate in: bicycling frequency: 1-2 times per week duration: 15-30 minutes/day seatbelt use: always do you feel safe at home: Yes ROS Constitutional Constitutional: Reports anorexia, fatigue, frequent falls and other Details: had 2 falls at home prior to this admission. could no get up by himself. ; Denies change in weight, chills, fever(s), night sweats or weakness Eyes Eyes: Denies blurry vision, change in vision, eye pain or loss of vision ENT HEENT: Reports other Details: admits to having weak neck muscles and not being able to hold his head up to look people in the eye. Denies neck pain and ce phalgia ; Denies abnormal hearing, dysphagia, headache(s), hearing loss, nasal congestion or sore throat Cardiovascular Cardiovascular: Reports edema and fatigue; Denies chest pain, dyspnea on exertion, lightheadedness, orthopnea, palpitations, paroxysmal nocturnal dyspnea or syncope Respiratory/Chest Respiratory/Chest: Denies cough, dyspnea, shortness of breath at rest, shortness of breath with exertion or wheezing Gastrointestinal Gastrointestinal: Reports other Details: Denies chest fullness. ; Denies abdominal pain, constipation, diarrhea, dyspepsia, heartburn, hematemesis, hematochezia, nausea or vomiting Genitourinary Genitourinary: Reports urinary incontinence; Denies dysuria, hematuria, nocturia, urinary frequency, urinary hesitancy or urinary urgency Musculoskeletal Musculoskeletal: Denies back pain, joint pain, joint swelling or neck pain Neurologic Neurologic: Reports weakness; Denies confusion, disequilibrium, dizziness, focal weakness, headache(s), paresthesias, seizures or tremor(s) Psychiatric Psychiatric: Reports depression; Denies anxiety, homicidal ideation or suicidal ideation Endocrine Endocrinology: Denies change in body appearance, polydipsia or polyuria Hematologic/Lymphatic Hematologic/Lymphatic: Reports easy bruising; Denies easy bleeding or lymphadenopathy Allergic/Immunologic Allergic/Immunologic: Denies rhinitis, eczemia or asthma Vital Signs Vital Signs Vital Signs: 07/16/23 18:56 07/16/23 20:05 07/16/23 22:00 Temperature 98.2 F 97.6 F L Temperature Source Temporal Temporal Pulse Rate 68 77 Respiratory Rate 18 16 Respiratory Effort Respiratory Depth Respiratory Pattern Blood Pressure 101/54 L 124/60 H Blood Pressure Mean 69 81 Blood Pressure Source Monitor Monitor Blood Pressure Position Semi-Fowlers Semi-Fowlers Blood Pressure Location Right Arm Right Arm Pulse Ox 94 94 95 Oxygen Delivery Method Room Air Room Air Room Air 07/16/23 22:00 07/17/23 07:22 07/17/23 07:45 Temperature 97.9 F Temperature Source Temporal Pulse Rate 76 73 Respiratory Rate 16 18 Respiratory Effort Normal Non-Labored Respiratory Depth Normal Respiratory Pattern Normal Blood Pressure 107/56 L Blood Pressure Mean 73 Blood Pressure Source Monitor Blood Pressure Position Semi-Fowlers Blood Pressure Location Right Arm Pulse Ox 95 93 94 Oxygen Delivery Method Room Air Room Air Room Air Weight Weight: 183 lb 6.793 oz Body Mass Index (BMI) 27.1 Physical Exam Const alert, oriented x3 and no apparent distress Constitutional Narrative: Kyphotic, appears weak and fatigued. Poor exercise tolerance during therapy today. Having trouble holding his head up. His chin rests close to his chest. He states this has been longstanding and even predated the cervical fusion/ laminectomy. General Appearance: cooperative HEENT normocephalic and head/scalp atraumatic HEENT Narrative: Dry mucous membranes. Mouth: dry mucous membranes, No lesions and No thrush Eyes PERRL, EOMs intact bilaterally, conjunctivae normal and no scleral icterus Eyes Narrative: No visual field cuts. No mattering of the eyelashes on either eye and no discharge from either eye. General Eye: normal appearance of both eyes Neck Neck Narrative: He is kyphotic and his chin rests close to his chest. General: trachea midline Chest Chest: symmetrical chest wall rise Resp normal respiratory effort, no use of accessory muscles and clear to auscultation bilaterally Resp Narrative: Not tachypneic. Effort and Inspection: able to speak in complete sentences Cardio S1 normal heart sound, S2 normal heart sound, no murmurs, no rub and no gallops Cardio Narrative: The heart rhythm is irreg but, it is slow and I can not tell if he is in AFIB or if he is having ectopy. GI normal to inspection, nondistended, normoactive bowel sounds, soft to palpation and non-tender GI Narrative: No guarding with palpation. Not tympanic Back/Spine no CVA tenderness Extremity Extremity Narrative: He had pedal edema and it is now well controlled with compression stockings. Skin Skin Narrative: the wound vac was changed yesterday and will be changed again on Saturday. I reviewed the photos taken by the ostomy nurse and will be present for the wound VAC change on Saturday. 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 There are large hypertrophic callouses with cracking of the skin/fissures. No erythema and no purulent DC. The fissures have black edges. General Skin Exam: hypertrophy and turgor decreased; Negative for jaundice Rashes: no rashes Neuro oriented x3, CN's II-XII intact bilaterally and moves all extremities Neuro Narrative: Does not have full range of motion in his upper extremities but I suspect this is due to osteoarthritis of both shoulders. He has generalized weakness but no true focal weakness. No ataxia. He has intact sensation. No extinction. No dysarthria. Psych Appearance: grossly normal and appropriate Attitude: calm Activity / Motor Behavior: avoids eye contact Speech: normal speech Mood & Affect: depressed Thought Process: normal thought process Thought Content: normal thought content, No suicidality, No homicidality, No delusion(s) and No hallucination(s) Attention / Concentration: attention grossly intact Memory / Cognition: memory grossly intact Insight: fair Assessment & Plan Assessment/Plan (1) Debility: (2) Generalized weakness: (3) Inability to walk: (4) Peripheral arterial occlusive disease: (5) Pressure ulcer: QUALIFIERS: Pressure injury location: heel Laterality: left (6) Urinary incontinence: QUALIFIERS: Urinary Incontinence type: unspecified incontinence Qualified Code(s): R32 - Unspecified urinary incontinence (7) BPH (benign prostatic hyperplasia): QUALIFIERS: Lower urinary tract symptom presence: symptoms absent Qualified Code(s): N40.0 - Benign prostatic hyperplasia without lower urinary tract symptoms (8) History of vascular surgery: (9) Essential hypertension: (10) Hyperlipidemia: QUALIFIERS: Hyperlipidemia type: mixed hyperlipidemia Qualified Code(s): E78.2 - Mixed hyperlipidemia (11) History of coronary artery stent placement: (12) Atherosclerotic heart disease of [place] coronary artery without angina pectoris: QUALIFIERS: [place] vs. transplanted heart: mentasta heart Qualified Code(s): I25.10 - Atherosclerotic heart disease of ment[place] coronary artery without angina pectoris (13) Atrial fibrillation: (14) Cellulitis and abscess of left leg: (15) History of iron deficiency anemia: (16) Restless leg syndrome: PLAN: Why? could it be due to untreated iron deficiency? 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 Denies any hx of C DIFF. After he is off Augmentin will restart Protonix If he has no diarrhea from the antibiotic. DVT prophylaxis with enoxaparin, 40 mg subcu daily Follow up with PCP following DC from [facility] AM lab including CMP, CBC, Mag, Phos and repeat iron studies ordered. Check a Hemoccult stool Not sure he has been taking his medications at home......tells me that he quit taking Protonix and he had also quite using the hand cream to treat dyshidrotic eczema. Wonder if he also discontinued citalopram. Will discontinue citalopram now and start Remeron which hopefully will stimulate his appetite and intake. Discuss alternate living situations for Lloyd at the next team meeting. I do not feel at this time that he is able to care for himself at home and will require more assistance than his daughter is able to provide. Examine the wounds on the Legs/L heel on Saturday when the wound vac is changed. Charges/Coding Visit Charges Inpatient E&M: 84299 Init Hosp L2
--- NOTE | 2023-07-17 16:10 | CHAPLAIN ---
Type of Pastoral Visit _x__ Initial Visit ___ Follow-up Visit ___ On-call Visit ___ General Patient Visit ___ Spiritual Assessment ___ Family Conference ___ Bereavement ___ Rapid Response ___ Code Blue ___ Other (describe below) Pastoral Care Referral From _x__ Patient ___ Family ___ Nurse ___ Physician ___ Mechanical Design Drafter ___ Table Worker Packager ___ Other (describe below) Sacrament/Intervention _x__ Active listening ___ Anointing ___ Latter-Day ___ Bereavement ___ Communion ___ Pooja exploration ___ _x__ Life review _x__ Prayer ___ Reconciliation ___ Sacrament of Sick _x__ Supportive presence ___ Wedding ___ Other (describe below) Pastoral Comments patient was discharged about a month ago and is back in the hospital for more rehab; pt had been seen in previous admission and is able to give update, talk about his coping and his level of hope for the future; pt is given time to talk about his life and feelings; prayer is also given
[2023-07-17 19:27] VITALS: BP 110/75; PULSE 80; RESP 16; TEMP 36.6; O2SAT 97
[2023-07-17] MEDS: Pramipexole Di-HCl 0.25 MG Tablet PO (21:16)
[2023-07-17] MEDS: tiZANidine HCl 2 MG Tablet 4 MG PO (21:16)
[2023-07-17] MEDS: Gabapentin 100 MG Capsule 200 MG PO (21:16)
[2023-07-17] MEDS: Hydrocortisone 2.5% Crm 1 APPLIC TOPICAL (21:17)
[2023-07-17] MEDS: Ammonium Lactate 225 gm Bottle 1 APPLIC TOPICAL (21:17)
[2023-07-18 00:33] VITALS: BMI 27.1
[2023-07-18] MEDS: Enoxaparin 40 MG/0.4 ML Syringe SC (05:41)
[2023-07-18 07:19] VITALS: BP 120/67; PULSE 59; RESP 16; TEMP 36.7; O2SAT 94
[2023-07-18 07:24] VITALS: O2SAT 97
[2023-07-18] MEDS: Finasteride 5 MG Tablet PO (09:16)
[2023-07-18] MEDS: Cyanocobalamin 500 MCG Tablet 1000 MCG PO (09:16)
[2023-07-18] MEDS: Gabapentin 100 MG Capsule PO (09:16)
[2023-07-18] MEDS: Ammonium Lactate 225 gm Bottle 1 APPLIC TOPICAL ×2 (09:17→20:08)
[2023-07-18] MEDS: Hydrocortisone 2.5% Crm 1 APPLIC TOPICAL ×2 (09:17→20:06)
[2023-07-18] MEDS: Cilostazol 50 MG Tablet PO ×2 (09:17→20:08)
[2023-07-18] MEDS: Citalopram 10 MG Tablet PO (09:17)
[2023-07-18] MEDS: Clopidogrel Bisulfate 75 MG Tablet PO (09:17)
[2023-07-18] MEDS: Amox/Clavulanate 875 MG Tablet PO ×2 (09:17→20:07)
[2023-07-18] MEDS: Ensure Plus High Protein 120 ML LIQUID PO ×4 (09:17→20:05)
[2023-07-18] MEDS: Potassium Chloride Oral Tablet 20 MEQ PO ×2 (09:17→17:54)
[2023-07-18] MEDS: Menthol/Lanolin/Calamine/Znox 113 GM Tube 1 APPLIC TOPICAL ×2 (10:31→20:06)
--- NOTE | 2023-07-18 11:17 | REHABEVAL_ITS ---
Admission Information Primary Diagnosis:: Physical debility secondary to generalized weakness Status Changes from Prescreening?: No changes Identified Actual Problem List:: Infection, Falls, Skin Intergrity, Depression, Bladder Incontinence, Alteration in Sleep, Mobility Impaired, Self Care Deficit, Kn ow.Dfct of Medicaitons, Fluid Change-Dehydration and Alteration-Leisure Activ. Potential Problem List:: DVT, Bleeding, Infection, UTI, Aspiration, Falls, Skin Integrity and Depression Goals Goals Patient will remain: free from falls Patient will perform eating at: MOD I level of assist. Patient will perform bed mobility at: MOD I level of assist. Patient will complete transfers from bed to chair at: - (With minimal assistance ) Patient will ambulate: - (20 feet with a wheeled walker at min assist) Patient will complete upper body dressing at: - (Set up level) Patient will complete lower body dressing at: - (Minimal assistance with adaptive equipment as needed) Patient will complete toilet transfer at: - (Minimal assistance) Patient will complete toileting at: - (Minimal assistance) Patient will perform bathing at: - (He will complete upper body bathing at independent level and lower body bathing at min assist with adaptive equipment as needed.) Patient will perform Tub/Shower transfer at: - (Minimal to moderate assistance) Patient will complete grooming at: - (Set up level) Patient will achieve: - (2 steps with 2 handrails at mod assist) Patient will have pain level of: of 3 or less Patient's skin will: remain intact Patient will receive: adequate nutrition. Discharge Planning Pt Prognosis for Sig. Practical Improv. w/in Reasonable Time: Fair Estimated Length of stay (days): 21 Was Preadmission Assessment Accurate?: Yes
--- NOTE | 2023-07-18 11:46 | PCM.PROGNOTE ---
Subjective Subjective Lloyd was seen on team rounds today. His daughter, Arti, was present in the room. Afebrile VSS Maintaining appropriate oxygen saturation on RA Oral intake is good most of the time. Sometimes 75 to 100% of his meals and at other times only 25 to 49%. Discussed with nursing - no problems that need addressed Reviewed the PT/OT/ST notes Medication list reviewed. Arti told us that he had not been taking the medication for the dyshidrotic eczema on his hands until just recently. He also has not been taking Protonix. Lloyd's only true complaint is feeling excessively tired and weak. He denies chest pain, cough, rhinorrhea, cephalgia, lightheadedness, nausea/vomiting, heartburn, diarrhea/constipation, dysuria and calf pain. Objective Data Objective Data Vital Signs: Vital Signs Temp Pulse Resp BP Pulse Ox O2 Del Method 98.1 F 59 L 16 120/67 97 Room Air 07/18/23 07:19 07/18/23 07:19 07/18/23 07:19 07/18/23 07:19 07/18/23 07:24 07/18/23 07:24 Oxygen Delivery Method Room Air Weight: 183 lb 6.793 oz Body Mass Index (BMI) 27.1 Intake & Output: Intake and Output for Last 24 Hours 07/16/23 07/17/23 07/18/23 23:59 23:59 23:59 Intake Total 240 / 240 1290 / 1290 420 / 420 Output Total 350 / 350 425 / 675 350 / 350 Balance -110 / -110 865 / 615 70 / 70 Physical Exam Const alert and oriented x3 Constitutional Narrative: Was sleeping when I went back to talk with him after TEAM rounds. Not irritable. Flat/depressed affect. Did not make eye contact with the staff when they were reporting on his progress. He is able to make good eye contact with me when I am talking with him . General Appearance: cooperative HEENT normocephalic and head/scalp atraumatic Eyes PERRL, EOMs intact bilaterally, conjunctivae normal and no scleral icterus Eyes Narrative: No visual field cuts. No mattering of the eyelashes on either eye and no discharge from either eye. General Eye: normal appearance of both eyes Neck Neck Narrative: He is kyphotic and his chin rests close to his chest. General: trachea midline Chest Chest: symmetrical chest wall rise Resp normal respiratory effort and clear to auscultation bilaterally Resp Narrative: No conversational dyspnea at rest. Effort and Inspection: Negative for tachypneic Cardio regular rate, regular rhythm, S1 normal heart sound, S2 normal heart sound, no murmurs, no rub and no gallops Cardio Narrative: Heart rate is in the 50s currently and somewhat irregular. Cannot tell without an EKG whether he is in a sinus rhythm with ectopy or in a slow A-fib. GI normal to inspection, nondistended, normoactive bowel sounds, soft to palpation and non-tender GI Narrative: Not tympanic, no guarding with palpation. Back/Spine no CVA tenderness Extremity no calf tenderness Extremity Narrative: No ankle edema. Compressive stockings are present. Skin Skin Narrative: the wound vac was changed yesterday and will be changed again on Saturday. I reviewed the photos taken by the ostomy nurse and will be present for the wound VAC change on Saturday. 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 There are large hypertrophic callouses with cracking of the skin/fissures. No erythema and no purulent DC. The fissures have black edges. General Skin Exam: hypertrophy and turgor decreased; Negative for jaundice Rashes: no rashes Wound Narrative: Will examine the wounds on the left lower extremity when the wound VAC is changed by the ostomy nurse tomorrow. Neuro CN's II-XII intact bilaterally, no focal motor deficits and no sensory deficits noted Neuro Narrative: Generalized muscle weakness. Speech: speech normal Psych Psych Narrative: Flat, depressed affect. Appearance: grossly normal and appropriate Attitude: calm Activity / Motor Behavior: avoids eye contact Speech: normal speech Mood & Affect: depressed Thought Process: normal thought process Thought Content: normal thought content, No suicidality, No homicidality, No delusion(s) and No hallucination(s) Attention / Concentration: attention grossly intact Memory / Cognition: memory grossly intact Insight: fair Assessment & Plan Assessment/Plan (1) Debility: (2) Generalized weakness: (3) Inability to walk: (4) Peripheral arterial occlusive disease: (5) Pressure ulcer: QUALIFIERS: Pressure injury location: heel Laterality: left (6) Urinary incontinence: QUALIFIERS: Urinary Incontinence type: unspecified incontinence Qualified Code(s): R32 - Unspecified urinary incontinence (7) BPH (benign prostatic hyperplasia): QUALIFIERS: Lower urinary tract symptom presence: symptoms absent Qualified Code(s): N40.0 - Benign prostatic hyperplasia without lower urinary tract symptoms (8) Essential hypertension: (9) Atrial fibrillation: (10) Cellulitis and abscess of left leg: (11) History of iron deficiency anemia: (12) Restless leg syndrome: PLAN: Why? could it be due to untreated iron deficiency? 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 Continue therapy 2. I asked Arti to bring in a pair of clean white cotton gloves to apply to Lloyd's hands following application of ammonium lactate and steroid cream twice daily. 3. We discussed his decline in less than 1 month out of the hospital. we also discussed that he was just recently in [facility] for 2 months and now is back in < 1 month. I told Arti and Lloyd that I think he needs more assistance than what Arti can provide. We talked about investigating alternate living situations, such as assisted living, at [place] from rehab. He will consider and the will discuss options with him and Arti. 4. Start Remeron tonight. Discontinue citalopram as he is either not taking it or is not helping his depression. Lloyd is agreeable to this and he admits that he has been feeling depressed. He admitted to getting depressed at this time of year because he associates this time of year with her passing 5 years ago. Hopefully this will also help with appetite. 5. When I went back and chatted with him after rounds later in the day he told me he is thinking about assisted living. He lived with his daughter for a time after the cervical fusion and laminectomy in 2020 but felt he was intruding and went home. I think he would benefit greatly from more socialization and having someone around to talk to. He is isolated at home and although he talks to his friends on the phone because he is not able to get around at home he has few visitors. 6. Hold Mirapex tonight to see if the bradycardia improves. 7. Encouraged him to increase his fluid intake. Mucous membranes are very dry today. 8. Check orthostatics in the a.m. Charges/Coding Visit Charges Inpatient E&M: 63757 Subs Hosp L2
[2023-07-18 13:25] VITALS: BMI 27.1
--- NOTE | 2023-07-18 13:27 | CASEMGMT ---
Social Work IDT met with patient and dtr for Team meeting. Discussed patient's progress in PT/OT/SN. Educated to Medicare benefit. Will notify pt and dtr once MC days are approved. Pt has new wound vac. Broached topic of multiple readmissions and the high LOC pt requires, with concerns about pt returning home alone safely, especially without more consistent support. Recommending 24/7 care and either at home or SNF/AL. pt inquired about transferring to TCU at DC. IDT denied as pt is not appropriate for that unit. SW offered to discuss other options of SNFs. Pt and dtr expressed understanding. SW will continue to follow for DC planning. Will ReTeam weekly. CARL PeaceW
[2023-07-18 19:00] VITALS: BP 110/50; PULSE 68; RESP 17; TEMP 36; O2SAT 96
[2023-07-18 19:45] VITALS: PULSE 68; RESP 17; O2SAT 96; BMI 27.1
[2023-07-18] MEDS: Gabapentin 100 MG Capsule 200 MG PO (20:06)
[2023-07-18] MEDS: Atorvastatin Calcium 80 MG Tablet PO (20:09)
[2023-07-18] MEDS: Pramipexole Di-HCl 0.25 MG Tablet PO (20:09)
[2023-07-18] MEDS: tiZANidine HCl 2 MG Tablet 4 MG PO (20:10)
[2023-07-18] MEDS: Mirtazapine 15 MG Tablet 7.5 MG PO (20:14)
[2023-07-18] MEDS: Acetaminophen 500 MG Tablet 1000 MG PO (20:15)
[2023-07-19 06:02] LABS: Absolute Lymphocyte Count 0.83 X10^3/uL (0.83-4.51); Absolute Neutrophil Count 1.8 X10^3/uL (2.0-7.7); Basophil# 0.01 X10^3/uL; Basophil% 0.3 % (0-1); Eosinophil# 0.06 X10^3/uL; Eosinophils% 1.8 % (0-5); Hematocrit 28.9 % (40-54); Lymphocyte # 0.83 X10^3/ul (0.83-4.51); Lymphocyte % 25.3 % (19-41); Mean Corp Hgb Conc 31.1 g/dL (32-36); Mean Corpuscular Hgb 29.3 pg (27.0-32.0); Mean Corpuscular Volume 94.1 fL (80-94); Mean Platelet Vol. 10.6 fl (6.2-12.0); Monocyte% 18.3 % (0-10); NRBC Flagged by Analyzer 0 % (0-5); Neutrophil # 1.77 X10^3/uL (2.7-7.7); Platelet Count 212 K/mm3 (150-450); RBC Distribution Width SD 51.6 fl (35.1-43.9); Red Blood Count 3.07 M/mm3 (4.6-6.2); White Blood Count 3.3 K/mm3 (4.4-11.0)
[2023-07-19] MEDS: Enoxaparin 40 MG/0.4 ML Syringe SC (06:10)
[2023-07-19 07:09] LABS: ALB/GLOB Ratio 0.7 RATIO (0.9-2.4); AST(SGOT) 38 U/L (15-37); Alanine Aminotransfer ALT/SGPT 34 U/L (16-61); Albumin, Serum 2.5 g/dL (3.2-5.0); Alkaline Phosphatase 130 U/L (45-117); Anion Gap 2 (5-15); BUN 26 mg/dL (7-18); BUN/Creat Ratio 36.5 RATIO (10-20); Calcium,Total 8.5 mg/dL (8.5-10.1); Chloride 106 mmol/L (98-107); Creatinine, Serum 0.71 mg/dL (0.70-1.30); EST Glomerular Filtration Rate 112 mL/min (>60); Est Glom Filt Rate - Afr Amer 136 mL/min (>60); Estimated Creatinine Clearance 69.96 ml/min; Ferritin 47 ng/mL (26-388); Globulin 3.7 g/dL (2.2-4.2); Glucose 83 mg/dL (74-106); Iron 44 ug/dL (65-175); Iron Binding Capacity,Total 244 ug/dL (250-450); Magnesium 2.5 mg/dL (1.6-2.6); Potassium 4.2 mmol/L (3.5-5.1); Protein, Total 6.2 g/dL (6.4-8.2); Sodium Level 137 mmol/L (136-145)
[2023-07-19] MEDS: Potassium Chloride Oral Tablet 20 MEQ PO ×2 (08:29→18:06)
[2023-07-19] MEDS: Amox/Clavulanate 875 MG Tablet PO (08:29)
[2023-07-19] MEDS: Cyanocobalamin 500 MCG Tablet 1000 MCG PO (08:30)
[2023-07-19] MEDS: Clopidogrel Bisulfate 75 MG Tablet PO (08:30)
[2023-07-19] MEDS: Hydrocortisone 2.5% Crm 1 APPLIC TOPICAL ×2 (08:30→20:42)
[2023-07-19] MEDS: Menthol/Lanolin/Calamine/Znox 113 GM Tube 1 APPLIC TOPICAL ×2 (08:30→20:00)
[2023-07-19] MEDS: Finasteride 5 MG Tablet PO (08:30)
[2023-07-19] MEDS: Cilostazol 50 MG Tablet PO ×2 (08:30→20:43)
[2023-07-19] MEDS: Ensure Plus High Protein 120 ML LIQUID PO ×4 (08:31→20:41)
[2023-07-19] MEDS: Ammonium Lactate 225 gm Bottle 1 APPLIC TOPICAL ×2 (08:39→20:42)
--- NOTE | 2023-07-19 09:07 | CASEMGMT ---
Social Work: A list of 25 providers including quality and resource data and consistent with patient's preferred geographic region, medical needs, and insurance network were provided via the [facility]Port Guide Link. DEYSI Pond
[2023-07-19 09:28] VITALS: BMI 27.1
[2023-07-19] MEDS: Gabapentin 100 MG Capsule PO (09:46)
[2023-07-19 10:00] VITALS: BP 101/51; PULSE 60; RESP 16; TEMP 36.3; O2SAT 98
[2023-07-19 10:33] VITALS: BP 101/51; BP 113/57; BP 90/50; PULSE 64; PULSE 71; PULSE 94
--- NOTE | 2023-07-19 11:14 | PN_ITS ---
Subjective Subjective Afebrile VSS-orthostatics are negative today. Maintaining appropriate oxygen saturation on RA Oral intake-took 75 to 100% of his breakfast this a.m. Discussed with nursing - very loose stool......yesterday (X2).......the BM today was normal. Started on lactobacillus yesterday. Reviewed the PT/OT/ST notes Medication list reviewed. Started on mirtazapine 7.5 mg last night. Celexa has been discontinued. I do not think he was actually compliant with this medication at home following Dc for TCU. Today is the last day of Augmentin for treatment of cellulitis of the left lower extremity. All lab from today was personally reviewed. White blood cell count today is low at 3.3 and the differential shows increased monocytes but is otherwise unremarkable. Hemoglobin is stable at 9.0. Potassium is 4.2 and the sodium is 137. The BUN is 26 with a creatinine of 0.71 and a BUN/creatinine ratio of 36.5. The magnesium is 2.5 and phosphorus is normal at 4. TIBC is low at 244. Iron saturation in 18% which is normal and the ferritin is 47. Heme stool is +. The C. difficile PCR is positive. C. difficile GDH antigen and toxin's are pending. He had + PCR for C. DIFF on 04/27/23. AG was + but, the toxins were negative. Had copious diarrhea and was never treated. It was never mentioned in the notes. He was on antibiotics at the time for treatment of an infected LLE decubitus ulcer. Continued to have diarrhea after DC home on 06/20/23. He read that Protonix can cause diarrhea so he stopped the Protonix he was taking for Achalasia/GERD and inflammation in the duodenum and the diarrhea got somewhat better. He was placed on Augmentin recently for suspected cellulitis of the left heel recently and the diarrhea once again started. He has had fecal incontinence and numerous loose stools again. He has never been told he had C. Diff or that he was probably a carrier. Since he has stopped the Protonix the stool is heme +. Lloyd denies lightheadedness, cephalgia, chest pain, cough, shortness of breath, nausea/vomiting/abdominal pain, dysuria and calf tenderness. He tells me he slept very well last night and he had a good breakfast this morning. He relates that he has been having 2 BM's a day at home and they are formed, since he stopped the PPI. Objective Data Objective Data Vital Signs: Vital Signs Temp Pulse Resp BP Pulse Ox O2 Del Method 97.3 F L 71 16 90/50 L 98 Room Air 07/19/23 10:00 07/19/23 10:33 07/19/23 10:00 07/19/23 10:33 07/19/23 10:00 07/19/23 10:00 Oxygen Delivery Method Room Air Weight: 183 lb 6.793 oz Body Mass Index (BMI) 27.1 Intake & Output: Intake and Output for Last 24 Hours 07/17/23 07/18/23 07/19/23 23:59 23:59 23:59 Intake Total 1290 / 1290 1340 / 1340 60 / 60 Output Total 425 / 675 350 / 350 275 / 275 Balance 865 / 615 990 / 990 -215 / -215 Lab / Micro Data 07/19/23 05:41 07/19/23 05:41 Labs: Laboratory Results - last 24 hr 07/19/23 05:41: WBC 3.3 L, RBC 3.07 L, Hgb 9.0 L, Hct 28.9 L, MCV 94.1 H, MCH 29.3, MCHC 31.1 L, RDW Std Deviation 51.6 H, RDW Coeff of [place] 15.0 H, Plt Count 212, MPV 10.6, Immature Gran % (Auto) 0.300, Neut % (Auto) 54.0, Lymph % (Auto) 25.3, [place] % (Auto) 18.3 H, Eos % (Auto) 1.8, Baso % (Auto) 0.3, Absolute Neuts (auto) 1.8 L, Absolute Lymphs (auto) 0.83, Nucleated RBC % 0, Sodium 137, Potassium 4.2, Chloride 106, Carbon Dioxide 29.0, Anion Gap 2 L, BUN 26 H, C reatinine 0.71, Estim Creat Clear Calc 69.96, Est GFR (MDRD) Af Amer 136, Est GFR (MDRD) Non-Af 112, BUN/Creatinine Ratio 36.5 H, Glucose 83, Calcium 8.5, Phosphorus 4.0, Magnesium 2.5, Iron 44 L, TIBC 244 L, Iron Saturation 18.0, Ferritin 47, Total Bilirubin 0.70, AST 38 H, ALT 34, Alkaline Phosphatase 130 H, Total Protein 6.2 L, Albumin 2.5 L, Globulin 3.7, Albumin/Globulin Ratio 0.7 L Micro: Microbiology 07/19/23 09:52 Stool Stool Occult Blood (JENNIFER) - Final Occult Blood Positive Physical Exam Const alert and oriented x3 General Appearance: cooperative HEENT Mouth: dry mucous membranes Resp clear to auscultation bilaterally Cardio no gallops Cardio Narrative: Irregular irregular with increased heart rate today when compared to the previous few days. GI normal to inspection, nondistended, normoactive bowel sounds, soft to palpation and non-tender GI Narrative: No guarding with palpation. Extremity no calf tenderness Skin Skin Narrative: I was present for the wound vac change today. The ostomy nurse told me that the heel and Achilles ulcers have been present for a few years and have never healed. Please see the photos in the wound note for today. The lesion over the Achilles has good granulation tissue present, 100%. There is no erythema or increased warmth to touch around the wound. No purulent DC. There is a small rim of macerated skin immediately surround the wound over the Achilles. The left heel has some new islands of epithelialization, a fair amount of yellow slough. No raissa-wound erythema and no purulent DC. No eschar. The wound vac was replaced. Lloyd is not wearing any type of device to decrease pressure on the heel and the Left distal posterior calf over the Achilles. He tells me it has been grafted in the past and it did not take. He has worn an AFO in the past to decreases the pressure on the heel but, it was this device that lead to the wound over the Achilles. The wounds on the anterior regalado are healed. Peripheral edema is controlled.. Psych thought process normal and cooperative Appearance: appropriate Attitude: No agitated Assessment & Plan Assessment/Plan (1) Debility: (2) Generalized weakness: (3) Inability to walk: (4) Peripheral arterial occlusive disease: (5) Pressure ulcer: QUALIFIERS: Pressure injury location: heel Laterality: left Pressure injury stage: stage 2 Qualified Code(s): L89.622 - Pressure ulcer of left heel, stage 2 PLAN: Left heel and left distal posterior calf over the Achilles and extending proximally. (6) Urinary incontinence: QUALIFIERS: Urinary Incontinence type: unspecified incontinence Qualified Code(s): R32 - Unspecified urinary incontinence (7) BPH (benign prostatic hyperplasia): QUALIFIERS: Lower urinary tract symptom presence: symptoms absent Qualified Code(s): N40.0 - Benign prostatic hyperplasia without lower urinary tract symptoms (8) Essential hypertension: (9) Atrial fibrillation: (10) Cellulitis and abscess of left leg: (11) History of iron deficiency anemia: (12) Restless leg syndrome: (13) Depression: QUALIFIERS: Depression Type: persistent depressive disorder Qualified Code(s): 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 Continue therapy 2. Discontinue Augmentin after the last dose today. 3. Start ferrous sulfate 325 mg daily to be taken with 500 mg of vitamin C at lunchtime. 4. Continue Remeron 7.5 mg p.o. nightly 5. Discontinue melatonin as he is not taking it and he is now on Remeron to help with sleep at night. 6. Continue the potassium supplement to keep the potassium between 4 and 4.5. 7. Recheck a CBC next week with differential. Augmentin is known to cause leukopenia. If he is still neutropenic next week we will need to look for other causes of neutropenia. 8. Keep him in isolation for the + C.DIFF. 9. Consult Dr. Monterroso for + toxigenic C. DIFF and heme + stool. 10. He had a formed BM today and he is no longer incontinent.........since he has never been treated should he be treated........even if toxin is negative. 11. Will look for an orthotic device that off loads the heel while padding the Achilles to prevent pressure on the Achilles. Charges/Coding Visit Charges Inpatient E&M: 49027 Subs Hosp L2
[2023-07-19] MEDS: Ascorbic Acid 500 MG Tablet PO (14:04)
[2023-07-19] MEDS: Ferrous Sulfate 325 MG Tablet PO (14:04)
--- NOTE | 2023-07-19 15:32 | WOUNDNOTE ---
wound photo: left Achilles/heel
--- NOTE | 2023-07-19 15:33 | WOUNDNOTE ---
wound photo: left Achilles/heel
[2023-07-19 20:16] VITALS: BP 115/56; PULSE 67; RESP 16; TEMP 36.4; O2SAT 94
[2023-07-19 20:40] VITALS: BMI 27.1
[2023-07-19] MEDS: 0.9% Saline Lock 10 ML Syringe IV (20:41)
[2023-07-19] MEDS: Atorvastatin Calcium 80 MG Tablet PO (20:42)
[2023-07-19] MEDS: Mirtazapine 15 MG Tablet 7.5 MG PO (20:43)
[2023-07-19] MEDS: Pramipexole Di-HCl 0.25 MG Tablet PO (20:45)
[2023-07-19] MEDS: Gabapentin 100 MG Capsule 200 MG PO (20:47)
[2023-07-19] MEDS: tiZANidine HCl 2 MG Tablet 4 MG PO (20:53)
[2023-07-20] MEDS: Vancomycin 125 MG/5 ML Susp PO.SYRINGE PO ×4 (00:26→17:33)
[2023-07-20] MEDS: Acetaminophen 500 MG Tablet 1000 MG PO ×2 (00:32→21:30)
[2023-07-20] MEDS: Enoxaparin 40 MG/0.4 ML Syringe SC (05:33)
[2023-07-20] MEDS: Hydrocortisone 2.5% Crm 1 APPLIC TOPICAL ×2 (08:23→21:19)
[2023-07-20] MEDS: Potassium Chloride Oral Tablet 20 MEQ PO ×2 (08:23→17:33)
[2023-07-20 08:45] VITALS: BP 104/59; PULSE 50; RESP 16; TEMP 36.3; O2SAT 97
[2023-07-20] MEDS: Ensure Plus High Protein 120 ML LIQUID PO ×4 (09:37→21:34)
[2023-07-20] MEDS: Clopidogrel Bisulfate 75 MG Tablet PO (09:37)
[2023-07-20] MEDS: Cilostazol 50 MG Tablet PO ×2 (09:37→21:22)
[2023-07-20] MEDS: Finasteride 5 MG Tablet PO (09:38)
[2023-07-20] MEDS: Cyanocobalamin 500 MCG Tablet 1000 MCG PO (09:38)
[2023-07-20] MEDS: Menthol/Lanolin/Calamine/Znox 113 GM Tube 1 APPLIC TOPICAL ×2 (09:39→21:38)
[2023-07-20] MEDS: Gabapentin 100 MG Capsule PO (09:41)
[2023-07-20] MEDS: Ammonium Lactate 225 gm Bottle 1 APPLIC TOPICAL ×2 (11:06→21:39)
[2023-07-20 11:28] VITALS: BMI 27.1
[2023-07-20] MEDS: Ascorbic Acid 500 MG Tablet PO (12:18)
[2023-07-20] MEDS: Ferrous Sulfate 325 MG Tablet PO (12:18)
[2023-07-20] MEDS: Pramipexole Di-HCl 0.25 MG Tablet PO (21:20)
[2023-07-20] MEDS: Mirtazapine 15 MG Tablet 7.5 MG PO (21:21)
[2023-07-20] MEDS: Atorvastatin Calcium 80 MG Tablet PO (21:23)
[2023-07-20] MEDS: Gabapentin 100 MG Capsule 200 MG PO (21:25)
[2023-07-20] MEDS: tiZANidine HCl 2 MG Tablet 4 MG PO (21:29)
[2023-07-20 21:43] VITALS: BP 113/60; PULSE 75; RESP 17; TEMP 36.3; O2SAT 95
[2023-07-20 23:59] VITALS: BMI 27.1
[2023-07-21] MEDS: Vancomycin 125 MG/5 ML Susp PO.SYRINGE PO ×5 (00:03→23:37)
[2023-07-21] MEDS: Enoxaparin 40 MG/0.4 ML Syringe SC (05:12)
[2023-07-21 07:18] VITALS: BP 106/52; PULSE 61; RESP 14; TEMP 36.6; O2SAT 99
[2023-07-21] MEDS: Potassium Chloride Oral Tablet 20 MEQ PO ×2 (08:24→17:42)
[2023-07-21] MEDS: Hydrocortisone 2.5% Crm 1 APPLIC TOPICAL ×2 (08:24→21:22)
[2023-07-21 08:30] VITALS: BMI 27.1
[2023-07-21] MEDS: Cilostazol 50 MG Tablet PO ×2 (10:34→21:33)
[2023-07-21] MEDS: Clopidogrel Bisulfate 75 MG Tablet PO (10:34)
[2023-07-21] MEDS: Gabapentin 100 MG Capsule PO (10:34)
[2023-07-21] MEDS: Cyanocobalamin 500 MCG Tablet 1000 MCG PO (10:35)
[2023-07-21] MEDS: Ensure Plus High Protein 120 ML LIQUID PO ×4 (10:35→21:21)
[2023-07-21] MEDS: Finasteride 5 MG Tablet PO (10:35)
[2023-07-21] MEDS: Ammonium Lactate 225 gm Bottle 1 APPLIC TOPICAL ×2 (11:51→21:35)
[2023-07-21] MEDS: Menthol/Lanolin/Calamine/Znox 113 GM Tube 1 APPLIC TOPICAL ×2 (11:52→21:23)
[2023-07-21] MEDS: Ferrous Sulfate 325 MG Tablet PO (12:18)
[2023-07-21] MEDS: Ascorbic Acid 500 MG Tablet PO (12:18)
[2023-07-21 19:13] VITALS: BP 103/64; PULSE 68; RESP 18; TEMP 36.6; O2SAT 95
[2023-07-21 21:15] VITALS: BMI 27.1
[2023-07-21] MEDS: Pramipexole Di-HCl 0.25 MG Tablet PO (21:32)
[2023-07-21] MEDS: Mirtazapine 15 MG Tablet 7.5 MG PO (21:33)
[2023-07-21] MEDS: Miconazole Nitrate 43 GM Bottle 1 APPLIC TOPICAL (21:34)
[2023-07-21] MEDS: Gabapentin 100 MG Capsule 200 MG PO (21:38)
[2023-07-21] MEDS: Acetaminophen 500 MG Tablet 1000 MG PO (21:42)
[2023-07-21] MEDS: Atorvastatin Calcium 80 MG Tablet PO (21:59)
[2023-07-21 22:00] VITALS: PULSE 63; RESP 17; O2SAT 95
[2023-07-21] MEDS: 0.9% Saline Lock 10 ML Syringe IV (22:01)
[2023-07-22] MEDS: Vancomycin 125 MG/5 ML Susp PO.SYRINGE PO ×4 (05:08→23:59)
[2023-07-22] MEDS: Enoxaparin 40 MG/0.4 ML Syringe SC (05:08)
[2023-07-22 07:04] VITALS: BP 106/62; PULSE 61; RESP 18; TEMP 36.9; O2SAT 95
[2023-07-22] MEDS: Hydrocortisone 2.5% Crm 1 APPLIC TOPICAL ×2 (07:57→20:39)
[2023-07-22] MEDS: Potassium Chloride Oral Tablet 20 MEQ PO ×2 (07:58→17:27)
[2023-07-22 09:31] VITALS: BMI 27.1
[2023-07-22] MEDS: Ensure Plus High Protein 120 ML LIQUID PO ×4 (09:52→20:45)
[2023-07-22] MEDS: Menthol/Lanolin/Calamine/Znox 113 GM Tube 1 APPLIC TOPICAL ×2 (09:52→20:37)
[2023-07-22] MEDS: Cilostazol 50 MG Tablet PO ×2 (09:53→20:37)
[2023-07-22] MEDS: Finasteride 5 MG Tablet PO (09:53)
[2023-07-22] MEDS: Clopidogrel Bisulfate 75 MG Tablet PO (09:53)
[2023-07-22] MEDS: Cyanocobalamin 500 MCG Tablet 1000 MCG PO (09:53)
[2023-07-22] MEDS: Gabapentin 100 MG Capsule PO (09:53)
[2023-07-22] MEDS: Ammonium Lactate 225 gm Bottle 1 APPLIC TOPICAL ×2 (09:55→20:36)
[2023-07-22] MEDS: Ferrous Sulfate 325 MG Tablet PO (12:08)
[2023-07-22] MEDS: Ascorbic Acid 500 MG Tablet PO (12:08)
--- NOTE | 2023-07-22 14:38 | CASEMGMT ---
Social Work IDT discussed pt's new isolation d/t cdiff until 07/29. Pt is needing the therapy gym equipment to effectively participate in PT/OT for required amount. Recommending pt transfer to SNF, as that is the DC recommendation already discussed. Pt would admit to [facility] skilled. KRISTAL phoned dtr to explain Medicare approved 16 days for RU stay, however, recommending early transfer to SNF d/t cdiff isolation restrictions with therapy. Dtr expressed understanding and inquired about pricing after skilled time is completed. KRISTAL provided estimates for pricing. Offered to provide dtr with SNF list to review. Dtr stated pt is adamant about only going to a SNF that will send pt to [facility] ER, if needed. Dtr agreed to printed list with quality and resource data via [facility]Port Guide left in pt's room to review, however, provided choices initial as [facility], [facility] (if sends to [facility]) and [facility] ([place]). SW agreed to place referrals. SNF list left in pt's room. KRISTAL phoned [facility] and confirmed if pt it is pts preference, pt will be sent to [facility] ER. Referrals placed to SNFs via [facility]Port. Bonita Mcclelland [employer]ING INSPECTOR
--- NOTE | 2023-07-22 15:08 | PN_ITS ---
Subjective Subjective Vancomycin day #3 Afebrile VSS - HR is mildly decreased in the AM but, it does increase with exertion. He takes Mirapex at night and this possibly decreases his heart rate in the a.m. Maintaining appropriate oxygen saturation on RA Oral intake is good. He is eating 75 to 100% of all of his meals now. Discussed with nursing - 1 episode fecal incontinence yesterday. Stool is still loose but, no longer liquid. He is confined to his room and therapy is working with him in his room. This will continue for the duration of the 10 days of vancomycin. Diarrhea is improving. Stool now has some form to it. Reviewed the PT/OT notes Examined the wound with the ostomy nurse when the vac was changed. Medication list reviewed. Tolerating the Remeron and appetite is improving. He is sleeping well at night. Lloyd denies lightheadedness, chest pain, cough, shortness of breath at rest, vertigo, nausea/vomiting/abdominal pain, calf tenderness, dysuria. Objective Data Objective Data Vital Signs: Vital Signs Temp Pulse Resp BP Pulse Ox O2 Del Method 98.4 F 61 18 106/62 95 Room Air 07/22/23 07:04 07/22/23 07:04 07/22/23 07:04 07/22/23 07:04 07/22/23 07:04 07/22/23 07:04 Oxygen Delivery Method Room Air Weight: 183 lb 6.793 oz Body Mass Index (BMI) 27.1 Intake & Output: Intake and Output for Last 24 Hours 07/20/23 07/21/23 07/22/23 23:59 23:59 23:59 Intake Total 1670 / 1670 1330 / 1330 800 / 800 Output Total 1550 / 1550 1900 / 1900 1200 / 1200 Balance 120 / 120 -570 / -570 -400 / -400 Lab / Micro Data 07/19/23 05:41 07/19/23 05:41 Micro: Microbiology 07/19/23 09:52 Stool C. difficile GDH Antigen & Toxins - Final 07/19/23 09:52 Stool Clostridioides difficile (PCR) - Final 07/19/23 09:52 Stool Stool Occult Blood (JENNIFER) - Final Occult Blood Positive Physical Exam Const alert, oriented x3 and no apparent distress General Appearance: cooperative Orientation / Consciousness: Negative for confused HEENT Mouth: dry mucous membranes Resp normal respiratory effort and clear to auscultation bilaterally Effort and Inspection: Negative for tachypneic Cardio regular rate, regular rhythm and no gallops GI normal to inspection, nondistended, normoactive bowel sounds, soft to palpation and non-tender Extremity General Extremity: Negative for edema Skin Wound Narrative: The large wound over the left Achilles has no purulent discharge and no slough. The base is 100% granulating and beefy red in color. The wound does have an o sigrid to it but there is no evidence of any infection. There is no erythema around the wound. The decubitus ulcer on the plantar surface of the left heel is essentially unchanged. Some granulation tissue but about 50% slough noted. Wound base is somewhat pale. No erythema around the wound and no sign of infection. Psych thought process normal and cooperative Psych Narrative: affect is flat not anxious. Appearance: appropriate Attitude: No agitated Activity / Motor Behavior: Negative for restless Assessment & Plan Assessment/Plan (1) Debility: (2) Generalized weakness: (3) Inability to walk: (4) Peripheral arterial occlusive disease: (5) Pressure ulcer: QUALIFIERS: Pressure injury location: heel Pressure injury stage: stage 2 Laterality: left Qualified Code(s): L89.622 - Pressure ulcer of left heel, stage 2 (6) Urinary incontinence: QUALIFIERS: Urinary Incontinence type: unspecified incontinence Qualified Code(s): R32 - Unspecified urinary incontinence (7) BPH (benign prostatic hyperplasia): QUALIFIERS: Lower urinary tract symptom presence: symptoms absent Qualified Code(s): N40.0 - Benign prostatic hyperplasia without lower urinary tract symptoms (8) Essential hypertension: (9) Atrial fibrillation: (10) Cellulitis and abscess of left leg: (11) History of iron deficiency anemia: (12) Restless leg syndrome: (13) Depression: QUALIFIERS: Depression Type: persistent depressive disorder Qualified Code(s): 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 Continue therapy 2. Recheck a CBC with differential and a BMP on . 3. Continue vancomycin - plan 10 days of tx 4. Continue lactobacillus 3 times daily - Toxin A and B are negative so he is a carrier since the PCR was positive. He has never been treated for C.Diff and did not know he was a carrier. the incontinence raises a problem with carriers when they are incontinent of stool, merissa if they are going to a SNF or ECF 5. Still having diarrhea with occasional incontinence. Charges/Coding Visit Charges Inpatient E&M: 20696 Subs Hosp L2
--- NOTE | 2023-07-22 15:35 | WOUNDNOTE ---
wound photo: left heel
--- NOTE | 2023-07-22 15:36 | WOUNDNOTE ---
wound photo: left Achilles area
--- NOTE | 2023-07-22 16:52 | CASEMGMT ---
Social Work: Sent PT referrals to [facility], [facility] and [facility] via Susan Lofton LSW
[2023-07-22] MEDS: 0.9% Saline Lock 10 ML Syringe IV (17:49)
[2023-07-22 20:00] VITALS: BP 120/67; PULSE 70; RESP 18; TEMP 37; O2SAT 97; BMI 27.1
[2023-07-22] MEDS: Miconazole Nitrate 43 GM Bottle 1 APPLIC TOPICAL (20:36)
[2023-07-22] MEDS: Pramipexole Di-HCl 0.25 MG Tablet PO (20:37)
[2023-07-22] MEDS: tiZANidine HCl 2 MG Tablet 4 MG PO (20:37)
[2023-07-22] MEDS: Mirtazapine 15 MG Tablet 7.5 MG PO (20:37)
[2023-07-22] MEDS: Acetaminophen 500 MG Tablet 1000 MG PO (20:38)
[2023-07-22] MEDS: Atorvastatin Calcium 80 MG Tablet PO (20:38)
[2023-07-22] MEDS: Gabapentin 100 MG Capsule 200 MG PO (20:38)
[2023-07-23] MEDS: Vancomycin 125 MG/5 ML Susp PO.SYRINGE PO ×3 (05:14→17:58)
[2023-07-23] MEDS: Enoxaparin 40 MG/0.4 ML Syringe SC (05:14)
[2023-07-23 08:00] VITALS: BP 115/64; PULSE 58; RESP 16; TEMP 36.5; O2SAT 98
[2023-07-23] MEDS: Hydrocortisone 2.5% Crm 1 APPLIC TOPICAL ×2 (08:18→21:59)
[2023-07-23] MEDS: Potassium Chloride Oral Tablet 20 MEQ PO ×2 (08:19→17:37)
[2023-07-23] MEDS: Menthol/Lanolin/Calamine/Znox 113 GM Tube 1 APPLIC TOPICAL ×2 (08:19→21:59)
[2023-07-23] MEDS: Clopidogrel Bisulfate 75 MG Tablet PO (08:20)
[2023-07-23] MEDS: Cyanocobalamin 500 MCG Tablet 1000 MCG PO (08:20)
[2023-07-23] MEDS: Cilostazol 50 MG Tablet PO ×2 (08:20→22:01)
[2023-07-23] MEDS: Finasteride 5 MG Tablet PO (08:21)
[2023-07-23] MEDS: Ensure Plus High Protein 120 ML LIQUID PO ×4 (08:24→21:59)
[2023-07-23] MEDS: Gabapentin 100 MG Capsule PO (08:24)
[2023-07-23] MEDS: Ammonium Lactate 225 gm Bottle 1 APPLIC TOPICAL ×2 (08:27→22:07)
[2023-07-23 11:42] VITALS: BMI 27.1
[2023-07-23] MEDS: Ascorbic Acid 500 MG Tablet PO (12:19)
[2023-07-23] MEDS: Ferrous Sulfate 325 MG Tablet PO (12:19)
[2023-07-23 19:59] VITALS: BP 123/72; PULSE 69; RESP 18; TEMP 37.2; O2SAT 97
[2023-07-23] MEDS: Gabapentin 100 MG Capsule 200 MG PO (21:59)
[2023-07-23 22:00] VITALS: PULSE 69; RESP 18; BMI 27.1
[2023-07-23] MEDS: Mirtazapine 15 MG Tablet 7.5 MG PO (22:00)
[2023-07-23] MEDS: Atorvastatin Calcium 80 MG Tablet PO (22:00)
[2023-07-23] MEDS: Acetaminophen 500 MG Tablet 1000 MG PO (22:00)
[2023-07-23] MEDS: tiZANidine HCl 2 MG Tablet 4 MG PO (22:00)
[2023-07-23] MEDS: Pramipexole Di-HCl 0.25 MG Tablet PO (22:01)
[2023-07-24] MEDS: Vancomycin 125 MG/5 ML Susp PO.SYRINGE PO ×4 (00:17→17:22)
[2023-07-24] MEDS: Enoxaparin 40 MG/0.4 ML Syringe SC (05:29)
[2023-07-24 06:00] VITALS: BMI 27.0
[2023-07-24 07:42] VITALS: BP 127/73; PULSE 56; RESP 16; TEMP 36.2; O2SAT 99
[2023-07-24] MEDS: Hydrocortisone 2.5% Crm 1 APPLIC TOPICAL ×2 (08:34→20:35)
[2023-07-24] MEDS: Cyanocobalamin 500 MCG Tablet 1000 MCG PO (08:35)
[2023-07-24] MEDS: Potassium Chloride Oral Tablet 20 MEQ PO ×2 (08:35→17:21)
[2023-07-24] MEDS: Cilostazol 50 MG Tablet PO ×2 (08:36→20:35)
[2023-07-24] MEDS: Clopidogrel Bisulfate 75 MG Tablet PO (08:36)
[2023-07-24] MEDS: Finasteride 5 MG Tablet PO (08:37)
[2023-07-24] MEDS: Ensure Plus High Protein 120 ML LIQUID PO ×4 (08:37→20:34)
[2023-07-24] MEDS: Menthol/Lanolin/Calamine/Znox 113 GM Tube 1 APPLIC TOPICAL ×2 (08:37→20:39)
[2023-07-24] MEDS: Gabapentin 100 MG Capsule PO (08:51)
[2023-07-24] MEDS: Ammonium Lactate 225 gm Bottle 1 APPLIC TOPICAL ×2 (08:53→20:35)
[2023-07-24] MEDS: Ferrous Sulfate 325 MG Tablet PO (12:18)
[2023-07-24] MEDS: Ascorbic Acid 500 MG Tablet PO (12:18)
--- NOTE | 2023-07-24 14:36 | CASEMGMT ---
Addendum entered by Bonita Mcclelland 07/25/23 11:36: 7000 completed and sent with TX summary to W. Original Note: Social Work SW followed up with all SNFs. [facility] and [facility] can accept. [facility] still reviewing, unsure of beds. SW phoned dtr to update. [facility] is pt's [facility] and they can accept 2. IDT agreeable to DC 2. Dtr spoke with pt and pt is agreeable. SNFs updated. IDT updated. W/C transport scheduled through [facility] for 1300. 7000 started. Plan: DC 2 to [facility], skilled Bonita Mcclelland, CARL THORNTONW
[2023-07-24 14:53] VITALS: BMI 27.0
[2023-07-24 20:00] VITALS: BP 102/49; PULSE 74; RESP 15; TEMP 37.2; O2SAT 96
[2023-07-24] MEDS: Gabapentin 100 MG Capsule 200 MG PO (20:33)
[2023-07-24] MEDS: Pramipexole Di-HCl 0.25 MG Tablet PO (20:34)
[2023-07-24] MEDS: Atorvastatin Calcium 80 MG Tablet PO (20:34)
[2023-07-24] MEDS: Mirtazapine 15 MG Tablet 7.5 MG PO (20:34)
[2023-07-24] MEDS: tiZANidine HCl 2 MG Tablet 4 MG PO (20:34)
[2023-07-24] MEDS: Acetaminophen 500 MG Tablet 1000 MG PO (20:34)
[2023-07-24 22:01] VITALS: BMI 27.0
[2023-07-25] MEDS: Vancomycin 125 MG/5 ML Susp PO.SYRINGE PO ×3 (00:17→11:46)
[2023-07-25] MEDS: Acetaminophen 500 MG Tablet 1000 MG PO (05:29)
[2023-07-25] MEDS: Enoxaparin 40 MG/0.4 ML Syringe SC (05:30)
[2023-07-25 05:57] LABS: Absolute Neutrophil Count 2.2 X10^3/uL (2.0-7.7); Basophil# 0.01 X10^3/uL; Basophil% 0.3 % (0-1); Eosinophil# 0.08 X10^3/uL; Eosinophils% 2.2 % (0-5); Hematocrit 31.7 % (40-54); Hemoglobin 9.9 g/dL (13.0-16.5); Lymphocyte % 18.9 % (19-41); Mean Corp Hgb Conc 31.2 g/dL (32-36); Mean Corpuscular Hgb 29.5 pg (27.0-32.0); Mean Corpuscular Volume 94.3 fL (80-94); Mean Platelet Vol. 10.4 fl (6.2-12.0); Monocyte# 0.65 X10^3/uL; Monocyte% 17.6 % (0-10); NRBC Flagged by Analyzer 0 % (0-5); Neutrophil # 2.24 X10^3/uL (2.7-7.7); Neutrophil % 60.5 % (47-70); Platelet Count 273 K/mm3 (150-450); RBC Distribution Width CV 14.8 % (11.6-14.6); RBC Distribution Width SD 51.1 fl (35.1-43.9); Red Blood Count 3.36 M/mm3 (4.6-6.2); White Blood Count 3.7 K/mm3 (4.4-11.0)
[2023-07-25 06:30] LABS: Anion Gap 2 (5-15); BUN 35 mg/dL (7-18); BUN/Creat Ratio 54.7 RATIO (10-20); Calcium,Total 8.4 mg/dL (8.5-10.1); Chloride 106 mmol/L (98-107); Creatinine, Serum 0.64 mg/dL (0.70-1.30); EST Glomerular Filtration Rate 127 mL/min (>60); Est Glom Filt Rate - Afr Amer 154 mL/min (>60); Estimated Creatinine Clearance 69.96 ml/min; Glucose 81 mg/dL (74-106); Potassium 4.2 mmol/L (3.5-5.1); Sodium Level 136 mmol/L (136-145)
[2023-07-25 07:04] VITALS: BP 113/62; PULSE 88; RESP 17; TEMP 36.8; O2SAT 95
[2023-07-25] MEDS: Hydrocortisone 2.5% Crm 1 APPLIC TOPICAL (08:37)
[2023-07-25] MEDS: Finasteride 5 MG Tablet PO (08:37)
[2023-07-25] MEDS: Potassium Chloride Oral Tablet 20 MEQ PO (08:38)
[2023-07-25] MEDS: Cyanocobalamin 500 MCG Tablet 1000 MCG PO (08:38)
[2023-07-25] MEDS: Ensure Plus High Protein 120 ML LIQUID PO (08:38)
[2023-07-25] MEDS: Clopidogrel Bisulfate 75 MG Tablet PO (08:38)
[2023-07-25] MEDS: Cilostazol 50 MG Tablet PO (08:38)
[2023-07-25] MEDS: Gabapentin 100 MG Capsule PO (08:40)
[2023-07-25] MEDS: Ammonium Lactate 225 gm Bottle 1 APPLIC TOPICAL (08:46)
--- NOTE | 2023-07-25 09:59 | PCM.TXEXTCAR ---
Diet Diet Order/Speech Therapy: 07/16/23 18:55 Diet: Regular - General Diet Comments: built up utensils, sippy cups without lids Dairy free for the next 2 weeks Routine Orders/Code Status Enema Type: Fleetz Enema Frequency: Daily PRN Suppository Type: Dulcolax 10mg Suppository Frequency: Daily PRN O2 Liters per Minute: 1-2 O2 Frequency: PRN Keep PO Greater than or Equal to (%): 90 Routine Lab Work: - (CBC and BMP in 1 week) Code Status: DNRCC-A (No intubation) Wound(s) LLE: Wound Type: Pressure Injury (Plantar surface of Left heel and distal posterior L calf over the Angela's) LEFT ELBOW: Wound Type: Skin Tear RT ELBOW: Wound Type: Skin Tear BILAT HANDS: Wound Type: fissures (improving with steroid + ammonium lactate cream BID) RT LLANOS: Wound Type: Stasis Ulcer Dressing Change: foam dressing LEFT HEEL: Wound Type: Pressure Injury Dressing Change: AntiMicrobial (Aquacel AG, etc) left Achilles area: Wound Type: nonhealing wound Dressing Change: KCI wound VAC Therapies Weight Bearing: Full weight bearing Extremity Affected:: Bilateral Lower and Bilateral Upper Physical Therapy: Eval and Treat Occupational Therapy: Eval and Treat Problem/Diagnosis (1) Debility: Status: Chronic Code(s): R53.81 - Other malaise Plan: Transfer to [facility] custodial. Comment: Due to generalized weakness. Not able to care for himself at home alone. (2) Generalized weakness: Status: Chronic Code(s): R53.1 - Weakness (3) Inability to walk: Status: Acute Code(s): R26.2 - Difficulty in walking, not elsewhere classified (4) Peripheral arterial occlusive disease: Status: Chronic Code(s): I77.9 - Disorder of arteries and arterioles, unspecified (5) Pressure ulcer: Status: Acute Code(s): L89.90 - Pressure ulcer of unspecified site, unspecified stage Comment: Left heel and left Achilles tendon area. (6) Urinary incontinence: Status: Acute Code(s): R32 - Unspecified urinary incontinence (7) Fecal incontinence: Status: Acute Code(s): R15.9 - Full incontinence of feces (8) BPH (benign prostatic hyperplasia): Status: Acute Code(s): N40.0 - Benign prostatic hyperplasia without lower urinary tract symptoms Comment: Postvoid residuals are less than 50. (9) Essential hypertension: Status: Chronic Code(s): I10 - Essential (primary) hypertension (10) Atrial fibrillation: Status: Chronic Code(s): I48.91 - Unspecified atrial fibrillation Comment: Paroxysmal...... not on anticoagulation due to history of GI bleed and falls. Rate is controlled. (11) Cellulitis and abscess of left leg: Status: Resolved Code(s): L03.116 - Cellulitis of left lower limb; L02.416 - Cutaneous abscess of left lower limb (12) History of iron deficiency anemia: Status: Acute Code(s): Z86.2 - Personal history of diseases of the blood and blood-forming organs and certain disorders involving the immune mechanism Comment: Iron studies at admission to rehab were not consistent with iron deficiency BUT, he has heme + stool and needs to stay on an iron supplement. (13) Restless leg syndrome: Status: Acute Code(s): G25.81 - Restless legs syndrome Comment: He is on pramipexole at at bedtime and this is known to cause bradycardia. Heart rate is less than 60 in the a.m. but never less than 55. The heart rate does increase with exertion. (14) Depression: Status: Acute Code(s): F32.9 - Major depressive disorder, single episode, unspecified Plan: He was started on Remeron while on rehab and this is definitely improved his appetite. He is eating 75 to 100% of his meals now. He is sleeping well. He is sad about having to consider placement and would rather stay at home but is unable to take care of himself. Would continue Remeron for at least 6 months before trying to stop this medication. (15) Achalasia: Status: Acute Code(s): K22.0 - Achalasia of cardia Comment: Diagnosed by Dr. Monterroso. Should be on a PPI BUT, he stopped the PPI because he though it was causing diarrhea. Diarrhea continues despite stopping Protonix. He also stopped taking an iron supplement because he thought the iron supplement was causing diarrhea. Needs to follow up with Dr.. Monterroso in the office for heme + stool and persistent diarrhea. 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 He had a + PCR and Positive A/B antigen on 04/27/23 and was never treated. Recent PCR + but, the AG and the toxin were negative. He can still shed C. DIFF spores as a carrier. Started on oral Vancomycin while on rehab in attempt to eradicate C. difficile colonization. He will follow-up with Dr. Cam Monterroso in the office postdischarge from rehab for persistently heme positive stool and persistent loose stool. (18) Atherosclerotic heart disease of [place] coronary artery without angina pectoris: Status: Chronic Code(s): I25.10 - Atherosclerotic heart disease of [place] coronary artery without angina pectoris (19) Hyperlipidemia: Status: Chronic Code(s): E78.5 - Hyperlipidemia, unspecified (20) Dilated aortic root: Status: Chronic Code(s): I77.810 - Thoracic aortic ectasia (21) Leukopenia: Status: Acute Code(s): D72.819 - Decreased white blood cell count, unspecified Plan: Etiology unknown. May need further W/U if persists. Plan 1. DC to [facility] custodial. 2. Finish 10 days of PO Vancomycin 3. Follow up with Dr. Monterroso in the office for persistent diarrhea, C DIFF carrier state and heme + stool 4. No dairy products for the next 2 weeks 5. Continue lactobacillus TID Allergies/Procedures Done in Hospital Allergies No Known Allergies Allergy (Verified 07/15/23 21:45) Procedures: None Type of Care/Length of Stay Estimated LOS: Convalescent Care Less Than 30 days Type of Care Needed: Skilled Rehab Potential: Fair Prognosis: Fair Additional Orders/Day of Discharge Additional Orders: Needs constant encouragement to increase fluid intake. H&P will serve as current which was dated: 07/17/23 Day of Discharge: 07/25/23 Dietary and Speech Recommendations Dietitian Recommendations/Changes: continue regular, lactose free diet, ensure clear 120mL 4x/day w/ medpass as ordered; built up silverware per pt request Follow Up Care Please follow up with your Primary Care Physician in: as needed Please Follow Up With: Cam Monterroso DO Discharge Plan Admission Admit Date/Time: 07/16/23 18:24 Primary Reason for Your Visit: Debility due to generalized weakness Attending Provider: Yas Quan Primary Care Provider: Ankur Medina Discharge Orders/Prescriptions Prescriptions: New ammonium lactate 12 % Lotion 1 applic topical BID Qty: 1 0RF Protocol: *Topical Application Instructions APPLICATION INSTRUCTIONS: Apply to both hands starting at the wrists and continuing to the finger tips BID Rx Instructions: Mix ammonium lactate with Hydrocortisone and apply to both hands BID. He is to wear cotton gloves at night while sleeping. ascorbic acid (vitamin C) 500 mg Tablet 500 mg PO 1200 Qty: 1 0RF ferrous sulfate [FeroSul] 325 mg (65 mg iron) Tablet 325 mg PO DAILY@1200 Qty: 1 0RF hydrocortisone 2.5 % Cream 1 applic topical 1999,0800 Qty: 1 0RF Protocol: *Topical Application Instructions APPLICATION INSTRUCTIONS: use this in conjunction with Ammonium lactate BID. Apply from the wrist to the tips of the fingers on both the palmar and dorsal hands BL. mirtazapine 15 mg Tablet 7.5 mg PO QHS Qty: 1 0RF acidophilus-pectin, citrus 25 million cell -100 mg Tablet 1 tab PO TID Qty: 1 0RF menthol-zinc oxide [Calmoseptine] 0.44-20.6 % Ointment 1 applic topical BID Qty: 1 0RF Protocol: *Topical Application Instructions APPLICATION INSTRUCTIONS: bilat buttocks vancomycin [Firvanq] 25 mg/mL Recon Soln 125 mg PO Q6 Qty: 20 0RF Continued finasteride [Proscar] 5 mg tablet 5 mg PO DAILY cilostazol 50 mg tablet 50 mg PO BID clopidogrel 75 mg tablet 75 mg PO DAILY cyanocobalamin (vitamin B-12) 1,000 mcg tablet 1,000 mcg PO DAILY tizanidine 2 MG tablet 2 - 4 mg PO QHS PRN (Reason: muscle spasm) gabapentin 100 mg capsule 100 mg PO DAILY gabapentin 100 mg capsule 200 mg PO QHS Patient Comments: 07/15/23- pt states tried to cut back , taking only 100mg in the am, 200mg at hs pramipexole 0.25 mg Tablet 0.25 mg PO QHS 30 Days Qty: 30 0RF atorvastatin 80 mg tablet 80 mg PO DAILY miconazole nitrate [Desenex] 2 % Powder 1 applic topical BID PRN (Reason: redness) Protocol: *Topical Application Instructions APPLICATION INSTRUCTIONS: Apply to groin acetaminophen 500 mg Tablet 1,000 mg PO Q6H PRN (Reason: Pain Score 1-10) potassium chloride 20 mEq Tablet,Er Particles/Crystals 20 meq PO BIDCM Qty: 0 0RF Discontinued citalopram 10 mg Tablet 10 mg PO DAILY 30 Days Qty: 30 0RF amoxicillin-pot clavulanate 875-125 mg tablet 1 tab PO BID melatonin 3 mg Tablet 3 mg PO QHS PRN PRN (Reason: Insomnia) Qty: 0 0RF enoxaparin 40 mg/0.4 mL Syringe 40 mg subcut DAILY Qty: 0 0RF Ensure Plus High Protein 0.08 gram-1.5 kcal/mL Liquid 120 ml PO 4X/DAY Qty: 0 0RF Referrals / Follow Up: Ankur Medina DO [Primary Care Provider] - Friend,DO Cam [Med Staff - Active Staff] - Disposition Disposition (needs filled in before D/C Order can be placed): [facility] Facility (5) Pressure ulcer Qualifiers: Laterality: left Pressure injury location: heel Pressure injury stage: stage 2 Qualified Code(s): L89.622 - Pressure ulcer of left heel, stage 2 (6) Urinary incontinence Qualifiers: Urinary Incontinence type: unspecified incontinence Qualified Code(s): R32 - Unspecified urinary incontinence (7) Fecal incontinence Qualifiers: Fecal incontinence type: full incontinence of feces Qualified Code(s): R15.9 - Full incontinence of feces (8) BPH (benign prostatic hyperplasia) Qualifiers: Lower urinary tract symptom presence: symptoms absent Qualified Code(s): N40.0 - Benign prostatic hyperplasia without lower urinary tract symptoms (10) Atrial fibrillation Qualifiers: Atrial fibrillation type: paroxysmal Qualified Code(s): I48.0 - Paroxysmal atrial fibrillation (14) Depression Qualifiers: Depression Type: persistent depressive disorder Qualified Code(s): F34.1 - Dysthymic disorder (18) Atherosclerotic heart disease of [place] coronary artery without angina pectoris Qualifiers: [place] vs. transplanted heart: [place] heart Qualified Code(s): I25.10 - Atherosclerotic heart disease of [place] coronary artery without angina pectoris (19) Hyperlipidemia Qualifiers: Hyperlipidemia type: mixed hyperlipidemia Qualified Code(s): E78.2 - Mixed hyperlipidemia (21) Leukopenia Qualifiers: Leukopenia type: lymphocytopenia Qualified Code(s): D72.810 - Lymphocytopenia
--- NOTE | 2023-07-25 11:31 | DS.PCM_ITS ---
Providers Date of Admission: 07/16/23 Date of Discharge: 07/25/23 Primary Care Physician: Dr. Ankur Medina, DO Consultations 07/19/23 13:16 Consult: Gastroenterology Routine Consulting Provider: [facility] Reason for Consult: diarrhea with + C.DIFF and heme positive stool EMERGENT Consult: No MD Notified: Yes Date Notified: 07/19/23 Time Notified: 13:17 Method of Notification: Verbal Method of Consult:: In-Person Comments:: Spoke with Laura Pt was never seen in the hospital so will need to follow up with Dr. Monterroso as an OP for C.DIFF colonization, persistent diarrhea and persistent heme + stool. Reason For Visit: DEBILITY Diagnosis Discharge Diagnosis (1) Debility: Status: Chronic Code(s): R53.81 - Other malaise Plan: Transfer to [facility] nursing home. (2) Generalized weakness: Status: Chronic Code(s): R53.1 - Weakness (3) Inability to walk: Status: Acute Code(s): R26.2 - Difficulty in walking, not elsewhere classified (4) Peripheral arterial occlusive disease: Status: Chronic Code(s): I77.9 - Disorder of arteries and arterioles, unspecified (5) Pressure ulcer: Status: Acute Code(s): L89.90 - Pressure ulcer of unspecified site, unspecified stage Qualifiers: Laterality: left Pressure injury location: heel Pressure injury stage: stage 2 Qualified Code(s): L89.622 - Pressure ulcer of left heel, stage 2 (6) Urinary incontinence: Status: Acute Code(s): R32 - Unspecified urinary incontinence Qualifiers: Urinary Incontinence type: unspecified incontinence Qualified Code(s): R32 - Unspecified urinary incontinence (7) Fecal incontinence: Status: Acute Code(s): R15.9 - Full incontinence of feces Qualifiers: Fecal incontinence type: full incontinence of feces Qualified Code(s): R15.9 - Full incontinence of feces (8) BPH (benign prostatic hyperplasia): Status: Acute Code(s): N40.0 - Benign prostatic hyperplasia without lower urinary tract symptoms Qualifiers: Lower urinary tract symptom presence: symptoms absent Qualified Code(s): N40.0 - Benign prostatic hyperplasia without lower urinary tract symptoms (9) Essential hypertension: Status: Chronic Code(s): I10 - Essential (primary) hypertension (10) Atrial fibrillation: Status: Chronic Code(s): I48.91 - Unspecified atrial fibrillation Qualifiers: Atrial fibrillation type: paroxysmal Qualified Code(s): I48.0 - Paroxysmal atrial fibrillation (11) Cellulitis and abscess of left leg: Status: Resolved Code(s): L03.116 - Cellulitis of left lower limb; L02.416 - Cutaneous abscess of left lower limb (12) History of iron deficiency anemia: Status: Acute Code(s): Z86.2 - Personal history of diseases of the blood and blood-forming organs and certain disorders involving the immune mechanism (13) Restless leg syndrome: Status: Acute Code(s): G25.81 - Restless legs syndrome (14) Depression: Status: Acute Code(s): F32.9 - Major depressive disorder, single episode, unspecified Qualifiers: Depression Type: persistent depressive disorder Qualified Code(s): F34.1 - Dysthymic disorder Plan: He was started on Remeron while on rehab and this is definitely improved his appetite. He is eating 75 to 100% of his meals now. He is sleeping well. He is sad about having to consider placement and would rather stay at home but is unable to take care of himself. Would continue Remeron for at least 6 months before trying to stop this medication. 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 He had a + PCR and Positive A/B antigen on 04/27/23 and was never treated. Recent PCR + but, the AG and the toxin were negative. He can still shed C. DIFF spores as a carrier. Started on oral Vancomycin while on rehab in attempt to eradicate C. difficile colonization. He will follow-up with Dr. Cam Monterroso in the office postdischarge from rehab for persistently heme positive stool and persistent loose stool. (18) Atherosclerotic heart disease of [place] coronary artery without angina pectoris: Status: Chronic Code(s): I25.10 - Atherosclerotic heart disease of [place] coronary artery without angina pectoris Qualifiers: [place] vs. transplanted heart: [place] heart Qualified Code(s): I25.10 - Atherosclerotic heart disease of [place] coronary artery without angina pectoris (19) Hyperlipidemia: Status: Chronic Code(s): E78.5 - Hyperlipidemia, unspecified Qualifiers: Hyperlipidemia type: mixed hyperlipidemia Qualified Code(s): E78.2 - Mi xed hyperlipidemia (20) Dilated aortic root: Status: Chronic Code(s): I77.810 - Thoracic aortic ectasia (21) Leukopenia: Status: Acute Code(s): D72.819 - Decreased white blood cell count, unspecified Qualifiers: Leukopenia type: lymphocytopenia Qualified Code(s): D72.810 - Lymphocytopenia Plan: Etiology unknown. May need further W/U if persists. Plan 1. DC to [facility] nursing home. 2. Finish 10 days of PO Vancomycin 3. Follow up with Dr. Monterroso in the office for persistent diarrhea, C DIFF carrier state and heme + stool 4. No dairy products for the next 2 weeks 5. Continue lactobacillus TID Medications at Discharge Home Medications finasteride 5 mg tablet (Proscar) 5 mg PO DAILY PROSTATES 07/18/17 cilostazol 50 mg tablet 50 mg PO BID vasodilator 02/02/22 clopidogrel 75 mg tablet 75 mg PO DAILY BLOOD THINNER 02/02/22 cyanocobalamin (vitamin B-12) 1,000 mcg tablet 1,000 mcg PO DAILY SUPPLEMENT 04/01/23 gabapentin 100 mg capsule 100 mg PO DAILY nerve pain 04/25/23 gabapentin 100 mg capsule 200 mg PO QHS NERVE PAIN 04/25/23 tizanidine 2 mg tablet 2 - 4 mg PO QHS PRN muscle spasm 05/03/23 pramipexole 0.25 mg tablet 0.25 mg PO QHS PARKINSON'S 30 days #30 tabs 06/12/23 acetaminophen 500 mg tablet 1,000 mg PO Q6H PRN Pain Score 1-10 07/15/23 atorvastatin 80 mg tablet 80 mg PO DAILY CHOLESTEROL 07/15/23 miconazole nitrate 2 % topical powder (Desenex) 1 applic topical BID PRN redness 07/15/23 potassium chloride 20 mEq tablet,extended release(part/cryst) 20 meq PO BIDCM supplement #0 tabs 07/16/23 acidophilus 25 million cell-pectin, citrus 100 mg tablet 1 tab PO TID #1 TAB 07/25/23 ammonium lactate 12 % lotion 1 applic topical BID #1 g 07/25/23 ascorbic acid (vitamin C) 500 mg tablet 500 mg PO 1200 #1 TAB 07/25/23 ferrous sulfate 325 mg (65 mg iron) tablet (FeroSul) 325 mg PO DAILY@1200 #1 TAB 07/25/23 hydrocortisone 2.5 % topical cream 1 applic topical 1999,0800 #1 g 07/25/23 menthol 0.44 %-zinc oxide 20.6 % topical ointment (Calmoseptine) 1 applic topical BID #1 g 07/25/23 mirtazapine 15 mg tablet 7.5 mg (1/2 x 15 mg) PO QHS #1 TAB 07/25/23 vancomycin 25 mg/mL oral solution (Firvanq) 125 mg (5 mL) PO Q6 #20 doses 07/25/23 Hospital Course Operations None Procedures None Summary of Care Provided Minutes Spent on Discharge: 45 Hospital Course: Lloyd Cruz is an 83 YO M with a PMH of hypertension, hyperlipidemia, coronary artery disease, history of inferior wall myocardial infarction in 2016, peripheral vascular disease, paroxysmal atrial fibrillation (not on anticoagulation due to GI bleeding and falls), depression, iron deficiency anemia, BPH, urinary incontinence, neuropathic pain, tobacco dependence in remission and a stroke in April 2023. Lloyd was admitted to acute rehab by Dr. Gómez on 04/30/23 for post stroke debility. He was admitted to [facility] on 04/25/23 with slurred speech and right hemiparesis he had for > 24 H. MRI was read as negative but, there was no neurology over read and SX were present for several days. He was diagnosed with TIA but, this hx is not consistent with TIA, it is consistent with stroke. Following acute rehab he was admitted to the transitional care unit for additional therapy and was discharged home on 06/20/2023. He was discharged with a Wound vac and [facility] for a non-healing wounds over the L Achilles and the plantar surface of the left heel. 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 He lives by himself but, his dtr lives only 3 miles away and she checks on him frequently. Lloyd and his dtr presented to the ED at [facility] on 07/15/2023 for progressive decline in his functional abilities since being discharged from TCU. He was getting HHC with therapy but, still experienced progressive decline. W/U in the ED was benign and he was admitted to the hospitalist service for observation. Lloyd was seen by the wound care/ostomy nurse following admission to the hospital for a left heel decubitus ulcer, wounds on the R anterior regalado and a non- healing left Achilles ulcer. Had a wound vac at home and the wounds were said to be improving. Lloyd was transferred to the acute rehab unit on 07/16/2023 for 3 hours of therapy daily to restore strength/independence at or near his prior level and to continue aggressive wound care. Review of the EMR from April revealed he had a + PCR for C. DIFF. Antigens were + but, the Toxin was negative. This made him either a carrier or the toxin level was below the limit of detection. He was never told of the C. DIFF status and he denies any hx of C. Diff in the past. He has never been treated for C. DIFF. Lloyd had been placed on Augmentin a few days prior to coming to the ED for cellulitis of the RLE. At presentation to rehab he was having diarrhea with fecal incontinence. C. DIFF PCR was + but, the AG's and toxins were negative. We elected to treat with Vancomycin to try and eradicate the C. DIFF. He was placed in enteric isolation. Carriers can still spread toxigenic C. DIFF through spores. This limited his ability to do PT because we could only work with him in his room. Lloyd is anemic and also has leukopenia. Iron studies were borderline low. He was restarted on oral iron and Vitamin C. Stool is heme +. Not surprising since he has discontinued Protonix because he thinks it causes diarrhea. He has diarrhea even though he is not taking a PPI.....he had also stopped taking iron because it thought it caused diarrhea but, the diarrhea persisted. We restarted iron. HGB is 9.9 at [place] and is stable. BUN is 35 at OH, up from 14 at admission to the hospital. CREAT is stable. The increase in the BUN/creat ration is likely due to both heme+ stool and dehydration. We are always encouraging him to increase his fluid intake. He denies lightheadedness at OH. At the time of DC from rehab Lloyd is requiring mod assist with bathing and upper body dressing. He is max assist with LB dressing and total assist with toileting. He requires moderate assistance to stand if he is pushing from surfaces with intermittent retro lean. He has not walked far enough to do a TUG test. He has walked up to 10' in the parallel bars at MIN assist. Ambulation not adequate to [place] home. Has not done stairs. He can not complete 3 hours of therapy daily and is being down graded to SNF. Ultimately Lloyd needs placement. He is unable to adequately care for himself at home and he is not able to stay active enough to keep his strength up. His dtr helps him with some things but, he needs more assistance than she can provide. Lloyd was transferred to [facility] nursing home on 07/25/23. Lloyd will follow up with Dr. Ankur Medina and Dr. Monterroso post OH. We added a dairy restriction to his diet at OH to see if this would help with diarrhea. Physical Exam Const alert, oriented x3 and no apparent distress General Appearance: cooperative Orientation / Consciousness: Negative for confused HEENT Mouth: dry mucous membranes Resp normal respiratory effort and clear to auscultation bilaterally Effort and Inspection: Negative for tachypneic Cardio regular rate, regular rhythm and no gallops Cardio Narrative: HR is increased from what it was at admission to the hospital......I suspect this is due to IV volume depletion. He was once again reminded that he must keep his fluid intake up. GI normal to inspection, nondistended, normoactive bowel sounds, soft to palpation and non-tender Extremity General Extremity: Negative for edema Skin Wound Narrative: The large wound over the left Achilles has no purulent discharge and no slough. The base is 100% granulating and beefy red in color. The wound does have an odor to it but there is no evidence of any infection. There is no erythema around the wound. The decubitus ulcer on the plantar surface of the left heel is essentially unchanged. Some granulation tissue but about 50% slough noted. Wound base is somewhat pale. No erythema around the wound and no sign of infection. Psych thought process normal and cooperative Psych Narrative: affect is flat not anxious. Appearance: appropriate Attitude: No agitated Activity / Motor Behavior: Negative for restless Weight / BMI Weight Weight: 182 lb 15.739 oz Body Mass Index (BMI) 27.0 ABG / Lab / Microbiology Data 07/25/23 05:38 07/25/23 05:38 Laboratory: Laboratory Results - last 24 hr 07/25/23 05:38: WBC 3.7 L, RBC 3.36 L, Hgb 9.9 L, Hct 31.7 L, MCV 94.3 H, MCH 29.5, MCHC 31.2 L, RDW Std Deviation 51.1 H, RDW Coeff of [place] 14.8 H, Plt Count 273, MPV 10.4, Immature Gran % (Auto) 0.500, Neut % (Auto) 60.5, Lymph % (Auto) 18.9 L, [place] % (Auto) 17.6 H, Eos % (Auto) 2.2, Baso % (Auto) 0.3, Absolute Neuts (auto) 2.2, Absolute Lymphs (auto) 0.70 L, Nucleated RBC % 0, Sodium 136, Potassium 4.2, Chloride 106, Carbon Dioxide 28.0, Anion Gap 2 L, BUN 35 H, Creatinine 0.64 L, Estim Creat Clear Calc 69.96, Est GFR (MDRD) Af Amer 154, Est GFR (MDRD) Non-Af 127, BUN/Creatinine Ratio 54.7 H, Glucose 81, Calcium 8.4 L Microbiology: Microbiology 07/19/23 09:52 Stool C. difficile GDH Antigen & Toxins - Final 07/19/23 09:52 Stool Clostridioides difficile (PCR) - Final 07/19/23 09:52 Stool Stool Occult Blood (JENNIFER) - Final Occult Blood Positive D/C Instructions Please Follow Up With: Friend,Cam, DO Meaningful Use Info Meaningful Use Diagnoses (Choose all that apply): None applicable Discharge Plan Admission Admit Date/Time: 07/16/23 18:24 Primary Reason for Your Visit: Debility due to generalized weakness Attending Provider: Yas Quan Primary Care Provider: Ankur Medina Discharge Orders/Prescriptions Prescriptions: New ammonium lactate 12 % Lotion 1 applic topical BID Qty: 1 0RF Protocol: *Topical Application Instructions APPLICATION INSTRUCTIONS: Apply to both hands starting at the wrists and continuing to the finger tips BID Rx Instructions: Mix ammonium lactate with Hydrocortisone and apply to both hands BID. He is to wear cotton gloves at night while sleeping. ascorbic acid (vitamin C) 500 mg Tablet 500 mg PO 1200 Qty: 1 0RF ferrous sulfate [FeroSul] 325 mg (65 mg iron) Tablet 325 mg PO DAILY@1200 Qty: 1 0RF hydrocortisone 2.5 % Cream 1 applic topical 1999,0800 Qty: 1 0RF Protocol: *Topical Application Instructions APPLICATION INSTRUCTIONS: use this in conjunction with Ammonium lactate BID. Apply from the wrist to the tips of the fingers on both the palmar and dorsal hands BL. mirtazapine 15 mg Tablet 7.5 mg PO QHS Qty: 1 0RF acidophilus-pectin, citrus 25 million cell -100 mg Tablet 1 tab PO TID Qty: 1 0RF menthol-zinc oxide [Calmoseptine] 0.44-20.6 % Ointment 1 applic topical BID Qty: 1 0RF Protocol: *Topical Application Instructions APPLICATION INSTRUCTIONS: bilat buttocks vancomycin [Firvanq] 25 mg/mL Recon Soln 125 mg PO Q6 Qty: 20 0RF Continued finasteride [Proscar] 5 mg tablet 5 mg PO DAILY cilostazol 50 mg tablet 50 mg PO BID clopidogrel 75 mg tablet 75 mg PO DAILY cyanocobalamin (vitamin B-12) 1,000 mcg tablet 1,000 mcg PO DAILY tizanidine 2 MG tablet 2 - 4 mg PO QHS PRN (Reason: muscle spasm) gabapentin 100 mg capsule 100 mg PO DAILY gabapentin 100 mg capsule 200 mg PO QHS Patient Comments: 07/15/23- pt states tried to cut back , taking only 100mg in the am, 200mg at hs pramipexole 0.25 mg Tablet 0.25 mg PO QHS 30 Days Qty: 30 0RF atorvastatin 80 mg tablet 80 mg PO DAILY miconazole nitrate [Desenex] 2 % Powder 1 applic topical BID PRN (Reason: redness) Protocol: *Topical Application Instructions APPLICATION INSTRUCTIONS: Apply to groin acetaminophen 500 mg Tablet 1,000 mg PO Q6H PRN (Reason: Pain Score 1-10) potassium chloride 20 mEq Tablet,Er Particles/Crystals 20 meq PO BIDCM Qty: 0 0RF Discontinued citalopram 10 mg Tablet 10 mg PO DAILY 30 Days Qty: 30 0RF amoxicillin-pot clavulanate 875-125 mg tablet 1 tab PO BID melatonin 3 mg Tablet 3 mg PO QHS PRN PRN (Reason: Insomnia) Qty: 0 0RF enoxaparin 40 mg/0.4 mL Syringe 40 mg subcut DAILY Qty: 0 0RF Ensure Plus High Protein 0.08 gram-1.5 kcal/mL Liquid 120 ml PO 4X/DAY Qty: 0 0RF Referrals / Follow Up: Ankur Medina DO [Primary Care Provider] - Friend,DO Cam [Med Staff - Active Staff] - (pt need appointment for +occult stool and persistent diarrhea message left to make appointment please follow up) Disposition Disposition (needs filled in before D/C Order can be placed): [facility] Facility Charges/Coding Visit Charges Inpatient E&M: 38902 Disch Hosp >30min
[2023-07-25] MEDS: Ascorbic Acid 500 MG Tablet PO (11:46)
[2023-07-25] MEDS: Ferrous Sulfate 325 MG Tablet PO (11:46)
[2023-07-25 14:06] VITALS: BMI 27.0
[2023-07-25 14:07] VITALS: BP 113/62; PULSE 88; RESP 17; TEMP 36.8; O2SAT 95
--- NOTE | 2023-07-25 14:09 | NURSING ---
discharged to [facility]
== END 2023-07-25 13:45 | disposition skilled nursing facility (03) | DRG 603 ==
PROVIDERS: Admitting Provider Internal Medicine; PCP Family Medicine; Visit Provider Internal Medicine
DX: L03.116 Cellulitis of left lower limb (principal); K22.0 Achalasia of cardia; L89.622 Pressure ulcer of left heel, stage 2; I73.9 Peripheral vascular disease, unspecified; I87.2 Venous insufficiency (chronic) (peripheral); I48.0 Paroxysmal atrial fibrillation; G25.81 Restless legs syndrome; D50.9 Iron deficiency anemia, unspecified; I77.810 Thoracic aortic ectasia; I10 Essential (primary) hypertension; E78.2 Mixed hyperlipidemia; I25.10 Atherosclerotic heart disease of native coronary artery without angina pectoris; N40.1 Benign prostatic hyperplasia with lower urinary tract symptoms; Z95.5 Presence of coronary angioplasty implant and graft; R32 Unspecified urinary incontinence; Z87.891 Personal history of nicotine dependence; L02.416 Cutaneous abscess of left lower limb; Z79.899 Other long term (current) drug therapy
CPT/HCPCS: 36415; 71046; 80048; 80053; 81001; 82274; 82728; 83540; 83550; 83735; 84100; 85025; 85027; 87493; 93005; 94668; 96372; 97110; 97116; 97162; 97166; 97530; 97535; 97802; 99221; 99283; A4216; G0378

== ENCOUNTER → 2023-09-25 | Outpatient (REF) | payer MEDICARE, BC, SELFPAY ==
[2023-09-25 08:29] LABS: Absolute Lymphocyte Count 1.02 X10^3/uL (0.83-4.51); Absolute Neutrophil Count 2.6 X10^3/uL (2.0-7.7); Basophil# 0.02 X10^3/uL; Basophil% 0.4 % (0-1); Eosinophil# 0.08 X10^3/uL; Eosinophils% 1.8 % (0-5); Hematocrit 33.8 % (40-54); Lymphocyte # 1.02 X10^3/ul (0.83-4.51); Lymphocyte % 22.7 % (19-41); Mean Corp Hgb Conc 32.5 g/dL (32-36); Mean Corpuscular Hgb 30.6 pg (27.0-32.0); Mean Corpuscular Volume 94.2 fL (80-94); Mean Platelet Vol. 10.9 fl (6.2-12.0); Monocyte# 0.77 X10^3/uL; Monocyte% 17.1 % (0-10); NRBC Flagged by Analyzer 0 % (0-5); Neutrophil # 2.59 X10^3/uL (2.7-7.7); Neutrophil % 57.6 % (47-70); Platelet Count 258 K/mm3 (150-450); RBC Distribution Width CV 14.1 % (11.6-14.6); Red Blood Count 3.59 M/mm3 (4.6-6.2); White Blood Count 4.5 K/mm3 (4.4-11.0)
[2023-09-25 08:45] LABS: Vitamin B12 1404 pg/mL (211-911)
[2023-09-25 08:46] LABS: AST(SGOT) 44 U/L (15-37); Alanine Aminotransfer ALT/SGPT 62 U/L (16-61); Albumin, Serum 3.2 g/dL (3.2-5.0); Alkaline Phosphatase 162 U/L (45-117); Anion Gap 3 (5-15); BUN 23 mg/dL (7-18); BUN/Creat Ratio 34.2 RATIO (10-20); Bilirubin, Direct 0.27 mg/dL (0.00-0.30); Calcium,Total 8.6 mg/dL (8.5-10.1); Chloride 107 mmol/L (98-107); Cholesterol 90 mg/dL (200); Creatinine, Serum 0.67 mg/dL (0.70-1.30); EST Glomerular Filtration Rate 120 mL/min (>60); Est Glom Filt Rate - Afr Amer 145 mL/min (>60); Globulin 3.9 g/dL (2.2-4.2); Glucose 79 mg/dL (74-106); High Density Lipoprotein 62 mg/dL; Potassium 4.3 mmol/L (3.5-5.1); Protein, Total 7.1 g/dL (6.4-8.2); Sodium Level 138 mmol/L (136-145); Triglycerides 33 mg/dL; Very Low Density Lipoprotein 7 mg/dL (5-40)
== END ==
LOC: OLS.WHLTSB 04:00
PROVIDERS: PCP Family Medicine; Referring Provider Family Medicine; Visit Provider Family Medicine
DX: I10 Essential (primary) hypertension (principal); I25.10 Atherosclerotic heart disease of native coronary artery without angina pectoris; I48.0 Paroxysmal atrial fibrillation; D51.8 Other vitamin B12 deficiency anemias
CPT/HCPCS: 36415; 80048; 80061; 80076; 82607; 85025

== ENCOUNTER → 2023-10-02 | Outpatient (REF) | payer MEDICARE, BC, SELFPAY ==
[2023-10-02 06:44] LABS: Absolute Lymphocyte Count 0.86 X10^3/uL (0.83-4.51); Absolute Neutrophil Count 1.8 X10^3/uL (2.0-7.7); Basophil# 0.02 X10^3/uL; Basophil% 0.6 % (0-1); Eosinophil# 0.06 X10^3/uL; Eosinophils% 1.8 % (0-5); Hematocrit 33.7 % (40-54); Hemoglobin 10.8 g/dL (13.0-16.5); Lymphocyte # 0.86 X10^3/ul (0.83-4.51); Lymphocyte % 25.2 % (19-41); Mean Corpuscular Hgb 30.3 pg (27.0-32.0); Mean Corpuscular Volume 94.7 fL (80-94); Mean Platelet Vol. 10.7 fl (6.2-12.0); Monocyte# 0.64 X10^3/uL; Monocyte% 18.8 % (0-10); NRBC Flagged by Analyzer 0 % (0-5); Neutrophil # 1.81 X10^3/uL (2.7-7.7); Platelet Count 249 K/mm3 (150-450); RBC Distribution Width CV 14.2 % (11.6-14.6); RBC Distribution Width SD 49.1 fl (35.1-43.9); Red Blood Count 3.56 M/mm3 (4.6-6.2); White Blood Count 3.4 K/mm3 (4.4-11.0)
[2023-10-02 06:58] LABS: Anion Gap 5 (5-15); BUN 23 mg/dL (7-18); BUN/Creat Ratio 35.7 RATIO (10-20); Calcium,Total 8.6 mg/dL (8.5-10.1); Chloride 107 mmol/L (98-107); Creatinine, Serum 0.64 mg/dL (0.70-1.30); EST Glomerular Filtration Rate 126 mL/min (>60); Est Glom Filt Rate - Afr Amer 152 mL/min (>60); Glucose 73 mg/dL (74-106); Potassium 4.1 mmol/L (3.5-5.1); Sodium Level 139 mmol/L (136-145)
== END ==
LOC: OLS.WHLTSB 04:00
PROVIDERS: PCP Family Medicine; Referring Provider Family Medicine; Visit Provider Family Medicine
DX: I10 Essential (primary) hypertension (principal); I25.10 Atherosclerotic heart disease of native coronary artery without angina pectoris
CPT/HCPCS: 36415; 80048; 85025

== ENCOUNTER 2023-10-31 07:35 | Outpatient (CLI) | payer MEDICARE, BC, SELFPAY ==
[2023-10-31 08:27] VITALS: BP 120/54; PULSE 60; RESP 16; TEMP 36.1; O2SAT 100
[2023-10-31 08:28] VITALS: BMI 25.8
[2023-10-31] MEDS: 0.9% NaCl IVPB Med Flush (250 mL) 15 ML IV (08:30)
[2023-10-31] MEDS: 0.9% NaCl Peripheral Flush Adult/Peds IV ×2 (08:33→09:39)
[2023-10-31] MEDS: BEZLOTOXUMAB IV (08:33)
[2023-10-31] MEDS: NORMAL SALINE 0.9% IV (08:33)
[2023-10-31 09:41] VITALS: BP 123/58; PULSE 55; RESP 16; O2SAT 100
[2023-10-31 10:26] VITALS: BP 123/58; PULSE 55; RESP 16; TEMP 36; O2SAT 100
== END 2023-10-31 11:58 | disposition home or self-care (01) ==
LOC: MEDOUTP 07:48 → ICU 08:49
PROVIDERS: PCP Family Medicine; Referring Provider Internal Medicine Gastroenterology; Visit Provider Internal Medicine Gastroenterology
DX: A04.72 Enterocolitis due to Clostridium difficile, not specified as recurrent (principal)
CPT/HCPCS: 96365; J7050; A4216; J0565

== ENCOUNTER → 2023-11-14 | Outpatient (CLI) | payer MEDICARE, BC, SELFPAY ==
[2023-11-14 12:40] LABS: Anion Gap 7 (5-15); BUN 28 mg/dL (7-18); BUN/Creat Ratio 36.2 RATIO (10-20); Calcium,Total 8.7 mg/dL (8.5-10.1); Chloride 104 mmol/L (98-107); Creatinine, Serum 0.77 mg/dL (0.70-1.30); EST Glomerular Filtration Rate 102 mL/min (>60); Est Glom Filt Rate - Afr Amer 123 mL/min (>60); Glucose 101 mg/dL (74-106); Potassium 4.7 mmol/L (3.5-5.1); Sodium Level 138 mmol/L (136-145)
== END | disposition home or self-care (01) ==
LOC: BFHLAB 11:04
PROVIDERS: PCP Family Medicine; Referring Provider Family Medicine; Visit Provider Family Medicine
DX: E87.6 Hypokalemia (principal)
CPT/HCPCS: 36415; 80048

== ENCOUNTER 2023-11-30 22:14 | Inpatient (IN) | payer MEDICARE, BC, SELFPAY ==
[2023-11-30] MEDS: 0.9% Normal Saline (1000mL) 1,000 ML 999 ML IV ×2 (22:15→23:10)
[2023-11-30 22:17] VITALS: BP 71/44; PULSE 50; RESP 13; TEMP 36; O2SAT 99; BMI 29.2
--- NOTE | 2023-11-30 22:41 | EKG12_ITS ---
Test Reason : Blood Pressure : / mmHG Vent. Rate : 054 BPM Atrial Rate : 054 BPM P-R Int : 200 ms QRS Dur : 138 ms QT Int : 452 ms P-R-T Axes : 053 -37 076 degrees QTc Int : 428 ms Sinus bradycardia with Premature atrial complexes Left axis deviation Non-specific intra-ventricular conduction block Minimal voltage criteria for LVH, may be normal variant ( R in aVL ) Cannot rule out Septal infarct , age undetermined Abnormal ECG Confirmed by Darrius Duque ([id number]), manager editorial ESTRELLA CARRILLO ([id number]) on 12/02/2023 1:57:36 PM Referred By: Confirmed By:Darrius Duque
--- NOTE | 2023-11-30 22:41 | RAD_ITS ---
EXAM: XR CHEST, 1 VIEW CLINICAL INDICATION: cough TECHNIQUE: Frontal view of the chest. COMPARISON: July 15, 2023. September 11, 2020. FINDINGS: LUNGS AND PLEURAL SPACES: Mildly low lung volumes similar to prior exam. No pneumothorax. No effusion. HEART: Unremarkable. Cardiac silhouette not enlarged. MEDIASTINUM: Central airways and mediastinal contour are unremarkable. BONES/JOINTS: Postoperative changes at the superior left humeral head are again noted but there is severe narrowing of the subacromial space and presumed chronic rotator cuff tear, similar to prior exams. Mild thoracic spondylosis. No acute fracture. SOFT TISSUES: Unremarkable. RAD/Chest 1 View (Portable) IMPRESSION: No acute findings in the chest. Electronically Signed: Sabine Berry MD at 23:11 EDT ,
--- NOTE | 2023-11-30 22:50 | RAD_ITS ---
EXAM: XR LEFT ANKLE, 2 VIEWS CLINICAL INDICATION: ? osteo TECHNIQUE: Frontal and lateral views of the left ankle. COMPARISON: November 29, 2021. FINDINGS: BONES/JOINTS: Degenerative changes of the ankle and calcaneal spur again noted. No visible joint effusion or fracture. There is diffuse demineralization. Narrowing of the medial joint compartment on the frontal view appears similar. No sclerotic or destructive changes observed. SOFT TISSUES: Mild bilateral soft tissue swelling, similar to prior exam. No radiopaque foreign body. RAD/Ankle 2 Views IMPRESSION: Chronic changes and soft tissue swelling. No convincing acute abnormality. Electronically Signed: Sabine Berry MD at 23:14 EDT ,
[2023-11-30 22:57] LABS: Absolute Lymphocyte Count 0.67 X10^3/uL (0.83-4.51); Absolute Neutrophil Count 2.2 X10^3/uL (2.0-7.7); Basophil# 0.01 X10^3/uL; Basophil% 0.3 % (0-1); Eosinophil# 0.07 X10^3/uL; Hematocrit 31.4 % (40-54); Hemoglobin 10.3 g/dL (13.0-16.5); Lymphocyte # 0.67 X10^3/ul (0.83-4.51); Lymphocyte % 19.1 % (19-41); Mean Corp Hgb Conc 32.8 g/dL (32-36); Mean Corpuscular Hgb 31.1 pg (27.0-32.0); Mean Corpuscular Volume 94.9 fL (80-94); Mean Platelet Vol. 10.4 fl (6.2-12.0); Monocyte# 0.55 X10^3/uL; Monocyte% 15.7 % (0-10); NRBC Flagged by Analyzer 0 % (0-5); Neutrophil % 62.6 % (47-70); Platelet Count 298 K/mm3 (150-450); RBC Distribution Width CV 14.1 % (11.6-14.6); Red Blood Count 3.31 M/mm3 (4.6-6.2); White Blood Count 3.5 K/mm3 (4.4-11.0)
[2023-11-30 23:07] LABS: Partial Thromboplast Time 36.6 Seconds (24.1-36.2); Prothrombin Time (Protime)PT. 13.4 SECONDS (11.7-14.9)
[2023-11-30 23:11] LABS: Anion Gap 5 (5-15); BUN 30 mg/dL (7-18); BUN/Creat Ratio 31.8 RATIO (10-20); Chloride 103 mmol/L (98-107); Creatinine, Serum 0.94 mg/dL (0.70-1.30); EST Glomerular Filtration Rate 81 mL/min (>60); Est Glom Filt Rate - Afr Amer 98 mL/min (>60); Estimated Creatinine Clearance 66.01 ml/min; Glucose 190 mg/dL (74-106); Magnesium 2.1 mg/dL (1.6-2.6); Potassium 3.9 mmol/L (3.5-5.1); Sodium Level 138 mmol/L (136-145)
[2023-11-30 23:15] VITALS: BP 89/67; PULSE 55; RESP 12; O2SAT 98
[2023-11-30 23:25] LABS: Bacteria 0 SEEN /hpf (None Seen); Mucous, Urine 0 SEEN /hpf (<or=2+); Red Blood Cells-Urine 0 SEEN /hpf (0-5); Squamous Epithelial Cells - UA 0 SEEN /hpf (0-5)
[2023-11-30 23:26] LABS: Color, Urine Yellow (Yellow); Glucose, Dipstick Normal (Normal); Ketone-Dipstick Negative (Negative); Leukocyte Esterase-Dipstick 25 /ul (Negative); Nitrite-Dipstick Negative (Negative); Occult Blood-Urine 25 /ul (Negative); Protein-Dipstick 15 mg/dl (Negative); Specific Gravity, Urine 1.015 (1.002-1.030); Urine Bilirubin Dipstick Negative (Negative); Urine Clarity Clear (Clear); Urine Urobilinogen Normal (Normal)
[2023-11-30 23:29] LABS: Procalcitonin 0.08 ng/mL (0.00-0.09)
[2023-11-30 23:36] LABS: White Blood Cells 0-5 SEEN /hpf (0-5)
[2023-12-01] VITALS (11 sets, daily range): BP systolic 86–154; BP diastolic 50–95; PULSE 50–95; RESP 13–18; TEMP 36.2–36.9; O2SAT 95–100; BMI 27.1
[2023-12-01] MEDS: 0.9% Normal Saline (500mL Bag) 500 ML 999 ML IV (00:14)
[2023-12-01 00:37] LABS: Troponin-I HS 28 pg/mL (3.0-78.0)
--- NOTE | 2023-12-01 01:41 | PCM.HP.STD ---
[facility] - General General Date of Admission: 12/01/23 Date of Service: 12/01/23 Chief Complaint: Fatigue and Low Blood Pressure. HPI Narrative SARA SAHA, is a 83 M with a past medical history of essential hypertension, hyperlipidemia, overweight; with BMI of 29.3 this admission, history of tobacco abuse (quit 1979), CAD; s/p inferior wall STEMI (2015); s/p stent, PAF; not on anticoagulation due to previous GI bleed and increased fall risk, history of dilated aortic root, history of LVH, history of CVA (2022); with residual Right hemiparesis and subsequent stint in TCU, PAD; with chronic pressure ulcer over Left Achilles and the plantar surface of the Left heel and Right anterior regalado, history of vascular surgery LLE (2021), chronic stage II-III sacral decubitus ulcer, GOLD, chronic leukopenia, neuropathy, history of stenosis of the cervical spine; with myelopathy and radiculopathy with subsequent C3-C4 laminectomy (2020), RLS, history of achalasia; with esophageal dysmotility, 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 difficile in the past followed by Dr. Monterroso of gastroenterology, history of basal cell carcinoma, history of pilonidal cyst, history of eczema; on daily hydrocortisone cream, BPH, history of renal cyst, urinary incontinence, depression, chronic debility, OA; with history of knee surgery and still with Full Code status who presents to [facility] ER complaining of fatigue and low blood pressure. Mr. Saha reports his symptoms began approximately one hour prior to arrival when the nurse at his [facility] check routine vital signs and found he was hypotensive allegedly in the allegedly ~50 mmHg range along with feeling fatigued and generally weak so EMS was activated. He admits he has had diminished intake of fluids with the patient only drinking 1 cup of water with meals and 1 to 2 cups of coffee per day. There is no report of fever, chills, nausea, vomiting, dysuria, chest pain, chest pressure diaphoresis, SOB, syncope or near syncope. In the ER he was initially noted to have a blood pressure of 71/44 mmHg and then he was persistently hypotensive in the ~80 mmHg systolic range even after 2L IVF with labs and imaging showing no signs of acute infection on imaging or laboratory testing but he was noted to have laboratory evidence of dehydration with a BUN/creatinine ratio of ~30:1 along with suspected relative adrenal insufficiency complicated by generalized weakness with ambulatory dysfunction and he was then admitted to the PCU for ongoing care for a stay that is expected to extend beyond 2 midnights. 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) Essential hypertension Peripheral arterial occlusive disease History of basal cell cancer Cervical radiculopathy Stenosis of cervical spine with myelopathy Debility Restless leg syndrome Normochromic normocytic anemia Orthostatic hypotension Depression Urine retention Urinary incontinence Left ventricular hypertrophy BPH (benign prostatic hyperplasia) Pressure ulcer Myelopathy Tobacco dependence in remission Renal cyst Osteoarthritis Microscopic hematuria Eczema Anterolisthesis Leg swelling PAD (peripheral artery disease) Hyperlipidemia Atherosclerotic heart disease of tribal coronary artery without angina pectoris Paroxysmal atrial fibrillation Dilated aortic root Home Medications ?Medication ?Instructions ?Recorded ?Last Taken ?Type finasteride 5 mg tablet (Proscar) 5 mg PO DAILY PROSTATES 07/18/17 07/16/23 History cilostazol 50 mg tablet 50 mg PO BID vasodilator 02/02/22 07/16/23 History gabapentin 100 mg capsule 100 mg PO DAILY nerve pain 04/25/23 07/16/23 History gabapentin 100 mg capsule 200 mg PO QHS NERVE PAIN 04/25/23 07/15/23 History tizanidine 2 mg tablet 2 - 4 mg PO QHS PRN muscle spasm 05/03/23 05/14/23 History acetaminophen 500 mg tablet 1,000 mg PO Q6H PRN Pain Score 1-10 07/15/23 07/14/23 History atorvastatin 80 mg tablet 80 mg PO DAILY CHOLESTEROL 07/15/23 07/15/23 History ascorbic acid (vitamin C) 500 mg 500 mg PO 1200 #1 TAB 07/25/23 Unknown Rx tablet ferrous sulfate 325 mg (65 mg 325 mg PO DAILY@1200 #1 TAB 07/25/23 Unknown Rx iron) tablet (FeroSul) ammonium lactate 12 % topical cream 1 applic topical QHS 11/30/23 Unknown History hydrocortisone 2.5 % topical cream applic topical QHS 11/30/23 Unknown History miconazole nitrate 2 % topical 1 applic topical BID 11/30/23 Unknown History powder mirtazapine 7.5 mg tablet 7.5 mg PO QHS 11/30/23 Unknown History Allergy/AdvReac Type Severity Reaction Status Date / Time No Known Allergies Allergy Verified 11/30/23 22:19 Family History Mother CHF (congestive heart failure) Heart disease Hypertension Father COPD (chronic obstructive pulmonary disease) Surgical History S/P debridement History of vascular surgery History of coronary artery stent placement (01/11/16) H/O laminectomy History of knee surgery S/P rotator cuff repair History of pilonidal cyst Social History household members: none housing: house number of children: 5 current occupation: retired current occupational exposures/hazards: No history of recent travel: No Smoking Status: Former smoker how long ago did patient quit smokin alcohol intake: current alcohol intake frequency: holidays/special occasions only details: occasional,holiday substance use type: does not use caffeine: Yes Type: coffee Number of servings: 10 what type of physical activity do you participate in: bicycling frequency: 1-2 times per week duration: 15-30 minutes/day seatbelt use: always do you feel safe at home: Yes ROS ROS Narrative Review of systems: General: Patient denies fever or chills. HENT: Denies headache, denies stuffy nose, denies sore throat EYES: Denies changes in vision or discharge from eyes Resp: Denies cough, denies shortness of breath Cardiac: Denies chest pain, palpitations or heart racing GI: Denies abdominal pain, denies changes in bowel, denies nausea or vomiting. : Denies changes in urination Extremity: Patient has chronic wounds on Left lower extremity as per HPI. Musculoskeletal: Feels somewhat generally weak and unwell but denies arthralgias or myalgias. Neuro: Patient denies headache, paresthesias or new focal neurologic weakness. Heme: Denies any bleeding or bruising Skin: Patient admits to chronic decubitus ulcers of Left heel and sacrum. He also has a tinea cruris rash in groin. Psychiatric: No complaints voiced related to uncontrolled depression or anxiety. Endocrine: No polyuria, polydipsia or polyphagia. The rest of the 14 point ROS was negative except for positives in HPI. Vital Signs Vital Signs Vital Signs: 11/30/23 22:17 11/30/23 22:20 11/30/23 23:15 Temperature 96.8 F L Temperature Source Axillary Pulse Rate 50 L 55 L Respiratory Rate 13 12 Respiratory Effort Normal Non-Labored Blood Pressure 71/44 L 89/67 L Blood Pressure Mean 53 74 Pulse Ox 99 98 Oxygen Delivery Method Room Air Room Air 12/01/23 00:00 12/01/23 01:00 Temperature Temperature Source Pulse Rate 51 L 71 Respiratory Rate 13 14 Respiratory Effort Blood Pressure 87/53 L 86/50 L Blood Pressure Mean 64 62 Pulse Ox 98 95 Oxygen Delivery Method Room Air Room Air Weight Weight: 198 lb 3.129 oz Body Mass Index (BMI) 29.2 Physical Exam Const alert, oriented x3 and no apparent distress Constitutional Narrative: Patient appears chronically ill. General Appearance: cooperative HEENT normocephalic, head/scalp atraumatic and hearing grossly normal bilaterally Eyes PERRL and EOMs intact bilaterally Neck no lymphadenopathy and supple Resp normal respiratory effort, no retractions, no use of accessory muscles and clear to auscultation bilaterally Cardio Cardio Narrative: Irregularly irregular at ~80 bpm. GI normal to inspection, nondistended, normoactive bowel sounds, soft to palpation, non-tender and non-distended Extremity Extremity Narrative: Patient has evidence of chronic wound over his Left ankle that does not appear to be acutely infected Skin Skin Narrative: Patient has evidence of chronic wound over his Left ankle that does not appear to be acutely infected Neuro oriented x3, CN's II-XII intact bilaterally, moves all extremities and no focal motor deficits Neuro Narrative: Patient hard of hearing. Sensorium / Orientation: awake, alert, oriented to person, oriented to place and oriented to time Speech: speech normal Psych affect normal Results Medical Records Data Attestation: I reviewed the patient's medical records Lab / Micro Data Attestation: I reviewed the patient's lab results. 11/30/23 22:00 11/30/23 22:00 Labs: Laboratory Results - last 24 hr 11/30/23 22:00: WBC 3.5 L, RBC 3.31 L, Hgb 10.3 L, Hct 31.4 L, MCV 94.9 H, MCH 31.1, MCHC 32.8, RDW Std Deviation 49.0 H, RDW Coeff of [place] 14.1, Plt Count 298, MPV 10.4, Immature Gran % (Auto) 0.300, Neut % (Auto) 62.6, Lymph % (Auto) 19.1, [place] % (Auto) 15.7 H, Eos % (Auto) 2.0, Baso % (Auto) 0.3, Absolute Neuts (auto) 2.2, Absolute Lymphs (auto) 0.67 L, Nucleated RBC % 0, PT 13.4, INR 1.0, APTT 36.6 H, Sodium 138, Potassium 3.9, Chloride 103, Carbon Dioxide 30.0, Anion Gap 5, BUN 30 H, Creatinine 0.94, Estim Creat Clear Calc 66.01, Est GFR (MDRD) Af Amer 98, Est GFR (MDRD) Non-Af 81, BUN/Creatinine Ratio 31.8 H, Glucose 190 H, Calcium 9.0, Magnesium 2.1, Procalcitonin 0.08 11/30/23 22:50: Lactic Acid 1.0 11/30/23 23:20: Urine Color Yellow, Urine Clarity Clear, Urine pH 6.0, Ur Specific Atlas 1.015, Urine Protein 15 H, Urine Glucose (UA) Normal, Urine Ketones Negative, Urine Occult Blood 25 H, Urine Nitrite Negative, Urine Bilirubin Negative, Urine Urobilinogen Normal, Ur Leukocyte Esterase 25 H, Urine RBC 0 SEEN, Urine WBC 0-5 SEEN, Ur Squamous Epith Cells 0 SEEN, Urine Bacteria 0 SEEN, Urine Mucus 0 SEEN 12/01/23 00:07: Troponin I High Sens 28 Imaging Radiology Impression Chest X-Ray 11/30/23 22:41 IMPRESSION: No acute findings in the chest. Electronically Signed: Sabine Berry MD at 23:11 EDT , Ankle X-Ray 11/30/23 22:50 IMPRESSION: Chronic changes and soft tissue swelling. No convincing acute abnormality. Electronically Signed: Sabine Berry MD at 23:14 EDT , Assessment & Plan Assessment/Plan (1) Dehydration: (2) Adrenal insufficiency: (3) Hypotension: QUALIFIERS: Hypotension type: unspecified hypotension type Qualified Code(s): I95.9 - Hypotension, unspecified (4) Pressure ulcer: QUALIFIERS: Laterality: left Pressure injury location: heel Pressure injury stage: stage 2 Qualified Code(s): L89.622 - Pressure ulcer of left heel, stage 2 (5) Generalized weakness: (6) Debility: (7) Old inferior wall myocardial infarction: PLAN: Plan 1. Laboratory evidence of acute dehydration with BUN/creatinine ratio of ~30:1 present on admission with suspected adrenal insufficiency with patient notably on chronic topical steroids - Admit to PCU. Continue volume resuscitation with IV fluid plus give albumin IV once since blood pressure does not increase above 100 mmHg after volume resuscitation and stress-dose Solu-Medrol. 2. Generalized weakness with ambulatory dysfunction in the setting of a known history of CVA (2022); with residual Right hemiparesis and subsequent stint in TCU and chronic debility complicating #1 - PT/OT and case management consult and treat in a.m. on rounds for further recommendations with help appreciated in advance. 3. PAD; with chronic pressure ulcer over Left Achilles and the previous wounds over the plantar surface of the Left heel and Right anterior regalado with previous history of wound VAC treatment compounding #1 & #2 - Noted with no signs of acute infection at this time but with wound not completely healed. Start vitamin D3, vitamin C and zinc to enhance wound healing and boost immunity. We will consult wound RN to see patient on rounds in the a.m. for further recommendations regarding optimize wound care regimen with help appreciated in advance. Low Albumin of 2.7 g/dL present on admission worrisome for possible protein-calorie malnutrition accompanied by poor wound healing so we will check prealbumin to confirm suspicion. 4. History of vascular surgery LLE (2021); with proximal Left peroneal to distal Left peroneal angioplasty x 3 - Noted. 5. Chronic stage II-III sacral decubitus ulcer with associated severe tinea cruris - Stable with no signs of acute infection at this time. Give nystatin powder to affected areas 3 times daily. 6. Essential hypertension - Hold scheduled antihypertensives until hypotension outlined #1 resolves. 7. Hyperlipidemia - Resume statin. 8. Overweight; with BMI of 29.3 this admission - Weight loss will be recommended but is unlikely due to patient's chronic lack of mobility. 9. History of tobacco abuse (quit 1979) - Noted. 10. CAD; s/p inferior wall STEMI (2015); s/p stent - Stable. 11. PAF; not on anticoagulation due to previous GI bleed and increased fall risk - Noted with patient currently rate controlled. 12. History of dilated aortic root - Noted. 13. History of LVH - Noted. 14. GOLD - Stable. Resume current iron supplementation with hemoglobin of 10.3 g/dL present on admission. 15. Chronic leukopenia - Stable with WBC of 3.5 present on admission. 16. Neuropathy - Continue gabapentin as previous. 17. History of stenosis of the cervical spine; with myelopathy and radiculopathy with subsequent C3-C4 laminectomy (2020) - Noted. 18. RLS - Continue mirtazapine as before. 19. History of achalasia; with esophageal dysmotility - Stable. 20. 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 difficile in the past followed by Dr. Monterroso of gastroenterology - Noted. Avoid systemic antibiotics if at all possible to minimize risk of recurrence. 21. History of basal cell carcinoma - Noted. 22. History of pilonidal cyst - Noted. 23. History of eczema - Stable. 24. BPH - Stable. 25. History of renal cyst - Noted. 26. Urinary incontinence - Stable. 27. Depression - Stable with patient currently not on antidepressant therapy. 28. OA; with history of knee surgery - Stable. 29. Full Code status - Noted. 30. DVT prophylaxis - SCD's only with history of GI bleed. Total time: Approximately 75 minutes. Update: After patient was given additional IV fluid and 1 dose of IV Solu-Medrol his blood pressure increased to 119/71 mmHg at approximately 2 AM with patient feeling back to his baseline. [employer] was updated with plan. Charges/Coding Visit Charges Inpatient E&M: 08433 Init Hosp L3
--- NOTE | 2023-12-01 01:56 | EX.ED.DYSGE1 ---
HPI History of Present Illness Chief Complaint: Hypotension Informant: patient, family and SNF Narrative Narrative: Patient is a 83-year-old male with past medical history of generalized weakness depression coronary artery disease paroxysmal atrial fibrillation. Patient states that this evening he just felt tired. He states he informed the nursing staff of this and they checked his vitals and reportedly his blood pressure was 55 systolically. Patient states that he did not have chest pain or shortness of breath he denies abdominal pain nausea vomiting diarrhea or dysuria. Because of the hypotension EMS was called. EMS state when they arrived patient was awake and alert but they were getting blood pressures of approximately 70 systolically and secondary to his persist hypotension the patient was brought to the hospital for evaluation. 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) Essential hypertension Peripheral arterial occlusive disease History of basal cell cancer Cervical radiculopathy Stenosis of cervical spine with myelopathy Debility Restless leg syndrome Normochromic normocytic anemia Orthostatic hypotension Depression Urine retention Urinary incontinence Left ventricular hypertrophy BPH (benign prostatic hyperplasia) Pressure ulcer Myelopathy Tobacco dependence in remission Renal cyst Osteoarthritis Microscopic hematuria Eczema Anterolisthesis Leg swelling PAD (peripheral artery disease) Hyperlipidemia Atherosclerotic heart disease of [place] coronary artery without angina pectoris Paroxysmal atrial fibrillation Dilated aortic root Home Medications ?Medication ?Instructions ?Recorded ?Last Taken ?Type finasteride 5 mg tablet (Proscar) 5 mg PO DAILY PROSTATES 07/18/17 07/16/23 History cilostazol 50 mg tablet 50 mg PO BID vasodilator 02/02/22 07/16/23 History gabapentin 100 mg capsule 100 mg PO DAILY nerve pain 04/25/23 07/16/23 History gabapentin 100 mg capsule 200 mg PO QHS NERVE PAIN 04/25/23 07/15/23 History tizanidine 2 mg tablet 2 - 4 mg PO QHS PRN muscle spasm 05/03/23 05/14/23 History acetaminophen 500 mg tablet 1,000 mg PO Q6H PRN Pain Score 1-10 07/15/23 07/14/23 History atorvastatin 80 mg tablet 80 mg PO DAILY CHOLESTEROL 07/15/23 07/15/23 History ascorbic acid (vitamin C) 500 mg 500 mg PO 1200 #1 TAB 07/25/23 Unknown Rx tablet ferrous sulfate 325 mg (65 mg 325 mg PO DAILY@1200 #1 TAB 07/25/23 Unknown Rx iron) tablet (FeroSul) ammonium lactate 12 % topical cream 1 applic topical QHS 11/30/23 Unknown History hydrocortisone 2.5 % topical cream applic topical QHS 11/30/23 Unknown History miconazole nitrate 2 % topical 1 applic topical BID 11/30/23 Unknown History powder mirtazapine 7.5 mg tablet 7.5 mg PO QHS 11/30/23 Unknown History Allergy/AdvReac Type Severity Reaction Status Date / Time No Known Allergies Allergy Verified 11/30/23 22:19 Family History Mother CHF (congestive heart failure) Heart disease Hypertension Father COPD (chronic obstructive pulmonary disease) Surgical History S/P debridement History of vascular surgery History of coronary artery stent placement (01/11/16) H/O laminectomy History of knee surgery S/P rotator cuff repair History of pilonidal cyst Social History household members: none housing: house number of children: 5 current occupation: retired current occupational exposures/hazards: No history of recent travel: No Smoking Status: Former smoker how long ago did patient quit smokin alcohol intake: current alcohol intake frequency: holidays/special occasions only details: occasional,holiday substance use type: does not use caffeine: Yes Type: coffee Number of servings: 10 what type of physical activity do you participate in: bicycling frequency: 1-2 times per week duration: 15-30 minutes/day seatbelt use: always do you feel safe at home: Yes ROS ROS ED Constitutional Constitutional ED: Denies chills or fever(s) Eyes Eyes: Denies change in vision ENT ENT ED: Denies rhinorrhea or sore throat Cardiovascular Cardiovascular: Denies chest pain or racing heartbeat Respiratory/Chest Respiratory/Chest: Denies cough or dyspnea Gastrointestinal Gastrointestinal: Denies abdominal pain, diarrhea, nausea or vomiting Genitourinary Genitourinary ED: Denies dysuria or hematuria Musculoskeletal Musculoskeletal: Denies myalgias Integumentary Denies rash Neurologic Neurologic: Reports weakness; Denies headache(s) Hematologic/Lymphatic Hematologic/Lymphatic: Denies easy bleeding or easy bruising EXAM Physical Exam Const Vital Signs: 11/30/23 22:17 11/30/23 22:20 11/30/23 23:15 Temperature 96.8 F L Temperature Source Axillary Pulse Rate 50 L 55 L Respiratory Rate 13 12 Respiratory Effort Normal Non-Labored Blood Pressure 71/44 L 89/67 L Blood Pressure Mean 53 74 Pulse Ox 99 98 Oxygen Delivery Method Room Air Room Air 12/01/23 00:00 12/01/23 01:00 12/01/23 02:00 Temperature 97.1 F L Temperature Source Pulse Rate 51 L 71 50 L Respiratory Rate 13 14 13 Respiratory Effort Blood Pressure 87/53 L 86/50 L 119/71 Blood Pressure Mean 64 62 87 Pulse Ox 98 95 97 Oxygen Delivery Method Room Air Room Air 12/01/23 02:00 Temperature 98.1 F Temperature Source Oral Pulse Rate 56 L Respiratory Rate 13 Respiratory Effort Blood Pressure 123/73 H Blood Pressure Mean 89 Pulse Ox 97 Oxygen Delivery Method Room Air Positive well nourished and well developed General Appearance ED: well developed and pallor HEENT HEENT Narrative: Mucous membranes are slightly dry and tacky No tongue or lip swelling no oral lesions no airway edema or compromise Eyes PERRL and EOMs intact bilaterally Eyes Narrative: Positive subconjunctival pallor noted General Eye ED: Yes pale conjunctiva; Negative for scleral icterus Neck supple Neck Narrative: No nuchal rigidity or meningeal signs Chest Wall palpation of chest normal Resp normal respiratory effort and clear to auscultation bilaterally Resp Narrative: Breath sounds are diminished throughout but overall clear to auscultation without signs of respiratory distress Cardio Rate: other Other Details: Irregularly irregular rhythm with bradycardic rate of approximately 50 GI normal to inspection, nondistended, normoactive bowel sounds, non-tender, non-distended and no masses GI Narrative: No voluntary guarding or rigidity or pulsatile mass Auscultation: normoactive bowel sounds Palpation: soft Extremity Extremity Narrative: Patient has a chronic wound to the posterior aspect of the left lower leg/ankle. There is mild ooze of brownish/green purulent material. However no lymphangitic streaking or surrounding erythema or warmth. No obvious bony deformity or joint effusion noted Neuro oriented x3 and CN's II-XII intact bilaterally Sensorium / Orientation: alert Psych Psych Narrative: Patient has a flat affect Skin No no wounds and No skin turgor normal Skin Narrative: Skin is pale in color but capillary refill remains less than 3 seconds Skin turgor is increased Chronic wound to the left posterior lower leg/ankle as documented above General Skin Exam: pallor; Negative for jaundice MDM MDM MDM Narrative Medical decision making narrative: Patient arrived to the ER awake and alert with normal neurologic exam and he was afebrile. However heart rate was bradycardic and blood pressure was hypotensive. Differential diagnosis is for acute blood loss anemia versus septicemia versus acute kidney injury versus infection such as pneumonia or osteomyelitis or UTI. There is concern for malnourishment versus dehydration. Secondary to his basic blood work was obtained but as the patient is awake alert and oriented I did not feel the need for vasopressors. As physical exam showed changes concerning for dehydration IV fluids were started and he did have mild improvement of his hypotension. Lab work revealed a stable H&H and therefore there is no need for transfusion. There is also no signs of acute kidney injury or severe electrolyte abnormality or obvious infection. He did not have a fever or leukocytosis or left shift and therefore I do not feel need for a CT scan of his abdomen or pelvis. Despite receiving 2.5 L of fluid he only had mild improvement of his hypotension. Secondary to this the case was discussed with the hospitalist who has concern that the patient might be malnourished and or have adrenal insufficiency. Therefore he recommends patient be admitted to the hospital for continued evaluation. History & Record Review Discussion w/independent historian: Patient and Family Lab Data Attestation: I reviewed the patient's lab results. Labs: Laboratory Results - last 24 hr 11/30/23 11/30/23 11/30/23 22:00 22:50 23:20 WBC 3.5 L RBC 3.31 L Hgb 10.3 L Hct 31.4 L MCV 94.9 H MCH 31.1 MCHC 32.8 RDW Std Deviation 49.0 H RDW Coeff of [place] 14.1 Plt Count 298 MPV 10.4 Immature Gran % (Auto) 0.300 Neut % (Auto) 62.6 Lymph % (Auto) 19.1 Bell % (Auto) 15.7 H Eos % (Auto) 2.0 Baso % (Auto) 0.3 Absolute Neuts (auto) 2.2 Absolute Lymphs (auto) 0.67 L Nucleated RBC % 0 PT 13.4 INR 1.0 APTT 36.6 H Sodium 138 Potassium 3.9 Chloride 103 Carbon Dioxide 30.0 Anion Gap 5 BUN 30 H Creatinine 0.94 Estim Creat Clear Calc 66.01 Est GFR (MDRD) Af Amer 98 Est GFR (MDRD) Non-Af 81 BUN/Creatinine Ratio 31.8 H Glucose 190 H Lactic Acid 1.0 Calcium 9.0 Magnesium 2.1 Total Bilirubin Direct Bilirubin AST ALT Alkaline Phosphatase Troponin I High Sens Total Protein Albumin Globulin Procalcitonin 0.08 Urine Color Yellow Urine Clarity Clear Urine pH 6.0 Ur Specific [place] 1.015 Urine Protein 15 H Urine Glucose (UA) Normal Urine Ketones Negative Urine Occult Blood 25 H Urine Nitrite Negative Urine Bilirubin Negative Urine Urobilinogen Normal Ur Leukocyte Esterase 25 H Urine RBC 0 SEEN Urine WBC 0-5 SEEN Ur Squamous Epith Cells 0 SEEN Urine Bacteria 0 SEEN Urine Mucus 0 SEEN 12/01/23 12/01/23 00:07 00:07 WBC RBC Hgb Hct MCV MCH MCHC RDW Std Deviation RDW Coeff of [place] Plt Count MPV Immature Gran % (Auto) Neut % (Auto) Lymph % (Auto) Bell % (Auto) Eos % (Auto) Baso % (Auto) Absolute Neuts (auto) Absolute Lymphs (auto) Nucleated RBC % PT INR APTT Sodium Potassium Chloride Carbon Dioxide Anion Gap BUN Creatinine Estim Creat Clear Calc Est GFR (MDRD) Af Amer Est GFR (MDRD) Non-Af BUN/Creatinine Ratio Glucose Lactic Acid Calcium Magnesium Total Bilirubin 0.40 Direct Bilirubin 0.18 AST 27 ALT 28 Alkaline Phosphatase 120 H Troponin I High Sens 28 Total Protein 6.1 L Albumin 2.6 L 2.7 L Globulin 3.5 Procalcitonin Urine Color Urine Clarity Urine pH Ur Specific [place] Urine Protein Urine Glucose (UA) Urine Ketones Urine Occult Blood Urine Nitrite Urine Bilirubin Urine Urobilinogen Ur Leukocyte Esterase Urine RBC Urine WBC Ur Squamous Epith Cells Urine Bacteria Urine Mucus Radiography Diagnostic Testing: Clinical Impression(s) from Imaging Studies Chest X-Ray 11/30/23 22:41 IMPRESSION: No acute findings in the chest. Electronically Signed: Sabine Berry MD at 23:11 EDT , Ankle X-Ray 11/30/23 22:50 IMPRESSION: Chronic changes and soft tissue swelling. No convincing acute abnormality. Electronically Signed: Sabine Berry MD at 23:14 EDT , Chest x-ray as interpreted by the emergency medicine physician reveals no acute infiltrate pneumothorax or pleural effusion Left ankle x-ray as interpreted by the emergency medicine physician reveals no signs of osteomyelitis Management Discussion w/another healthcare provider: Hospitalist Discharge Plan Dx/Rx/DC Orders Clinical Impression: Hypotension, Generalized weakness, Dehydration, Paroxysmal atrial fibrillation Disposition Disposition: Acute Care Hospital [facility] Discharge Date/Time: 12/01/23 02:56
[2023-12-01 02:07] LABS: AST(SGOT) 27 U/L (15-37); Alanine Aminotransfer ALT/SGPT 28 U/L (16-61); Albumin, Serum 2.6 g/dL (3.2-5.0); Alkaline Phosphatase 120 U/L (45-117); Bilirubin, Direct 0.18 mg/dL (0.00-0.30); Globulin 3.5 g/dL (2.2-4.2); Protein, Total 6.1 g/dL (6.4-8.2)
[2023-12-01] MEDS: MethylPREDNISolone 125 MG/2 ML Vial IV (02:14)
[2023-12-01 03:41] LABS: Albumin, Serum 2.7 g/dL (3.2-5.0)
[2023-12-01] MEDS: Albumin Human 25% (100 mL) 25 GM/100 ML BAG IV (04:04)
[2023-12-01] MEDS: 0.9% Normal Saline (1000mL) 1,000 ML 70 ML IV ×2 (04:04→17:12)
[2023-12-01 05:41] LABS: Absolute Neutrophil Count 1.8 X10^3/uL (2.0-7.7); Basophil# 0.01 X10^3/uL; Basophil% 0.4 % (0-1); Eosinophil# 0.02 X10^3/uL; Eosinophils% 0.8 % (0-5); Hematocrit 28.4 % (40-54); Hemoglobin 9.2 g/dL (13.0-16.5); Lymphocyte % 16.7 % (19-41); Mean Corp Hgb Conc 32.4 g/dL (32-36); Mean Corpuscular Hgb 30.9 pg (27.0-32.0); Mean Corpuscular Volume 95.3 fL (80-94); Mean Platelet Vol. 9.9 fl (6.2-12.0); Monocyte# 0.14 X10^3/uL; Monocyte% 5.8 % (0-10); NRBC Flagged by Analyzer 0 % (0-5); Neutrophil # 1.83 X10^3/uL (2.7-7.7); Neutrophil % 76.3 % (47-70); POSITIVE DIFFERENTIAL YES; Platelet Count 225 K/mm3 (150-450); RBC Distribution Width CV 14.4 % (11.6-14.6); Red Blood Count 2.98 M/mm3 (4.6-6.2); White Blood Count 2.4 K/mm3 (4.4-11.0)
[2023-12-01 06:13] LABS: Differential Indicated SCAN CRITERIA MET
[2023-12-01 06:20] LABS: ALB/GLOB Ratio 0.8 RATIO (0.9-2.4); AST(SGOT) 27 U/L (15-37); Alanine Aminotransfer ALT/SGPT 30 U/L (16-61); Albumin, Serum 2.9 g/dL (3.2-5.0); Alkaline Phosphatase 121 U/L (45-117); Anion Gap 5 (5-15); BUN 25 mg/dL (7-18); BUN/Creat Ratio 42.4 RATIO (10-20); Chloride 111 mmol/L (98-107); Creatinine, Serum 0.59 mg/dL (0.70-1.30); EST Glomerular Filtration Rate 140 mL/min (>60); Est Glom Filt Rate - Afr Amer 169 mL/min (>60); Estimated Creatinine Clearance 69.96 ml/min; Globulin 3.7 g/dL (2.2-4.2); Glucose 88 mg/dL (74-106); Magnesium 2.1 mg/dL (1.6-2.6); Phosphorus 3.1 mg/dL (2.5-4.9); Protein, Total 6.6 g/dL (6.4-8.2); Sodium Level 140 mmol/L (136-145)
[2023-12-01 06:51] LABS: Differential Comment SCANNED
--- NOTE | 2023-12-01 08:03 | PN_ITS ---
Progress Note Patient is an 83-year-old male who presented to [facility] with progressive generalized weakness diagnosed with dehydration admitted to a monitored bed for further management. Patient seen and examined initial assessment including history and physical diagnostic vp data orders reviewed will follow.
[2023-12-01] MEDS: Zinc Sulfate 50 mg zinc (220 mg) ORAL capsule PO (09:30)
[2023-12-01] MEDS: Gabapentin 100 MG Capsule PO (09:30)
[2023-12-01] MEDS: Finasteride 5 MG Tablet PO (09:30)
[2023-12-01] MEDS: Cilostazol 50 MG Tablet PO ×2 (09:30→21:24)
[2023-12-01] MEDS: Ascorbic Acid 500 MG Tablet 1000 MG PO ×2 (09:30→17:10)
[2023-12-01] MEDS: Cholecalciferol (Vit D3) 125 MCG CAPSULE (5,000 UNITS) PO (09:30)
[2023-12-01] MEDS: Acetaminophen 325 MG Tablet 650 MG PO ×2 (09:31→21:30)
[2023-12-01] MEDS: Miconazole Nitrate 43 GM Bottle 1 APPLIC TOPICAL ×2 (09:31→21:22)
[2023-12-01] MEDS: Ferrous Sulfate 325 MG Tablet PO (12:33)
[2023-12-01] MEDS: Ascorbic Acid 500 MG Tablet PO (12:33)
[2023-12-01] MEDS: Gabapentin 100 MG Capsule 200 MG PO (21:22)
[2023-12-01] MEDS: Atorvastatin Calcium 80 MG Tablet PO (21:24)
[2023-12-01] MEDS: Mirtazapine 15 MG Tablet 7.5 MG PO (21:25)
[2023-12-01] MEDS: tiZANidine HCl 2 MG Tablet PO (21:31)
[2023-12-02 03:32] VITALS: BP 103/56; PULSE 52; RESP 18; TEMP 36.8; O2SAT 96
[2023-12-02] MEDS: 0.9% Normal Saline (1000mL) 1,000 ML 70 ML IV (06:51)
[2023-12-02] MEDS: Ascorbic Acid 500 MG Tablet 1000 MG PO ×2 (08:17→16:12)
[2023-12-02] MEDS: Gabapentin 100 MG Capsule PO (08:18)
[2023-12-02] MEDS: Finasteride 5 MG Tablet PO (08:18)
[2023-12-02] MEDS: Cholecalciferol (Vit D3) 125 MCG CAPSULE (5,000 UNITS) PO (08:18)
[2023-12-02] MEDS: Miconazole Nitrate 43 GM Bottle 1 APPLIC TOPICAL (08:18)
[2023-12-02] MEDS: Zinc Sulfate 50 mg zinc (220 mg) ORAL capsule PO (08:18)
[2023-12-02] MEDS: Cilostazol 50 MG Tablet PO ×2 (08:18→20:39)
[2023-12-02] MEDS: Acetaminophen 325 MG Tablet 650 MG PO ×2 (08:25→20:40)
[2023-12-02 10:00] VITALS: BP 126/63; PULSE 62; RESP 16; TEMP 36.4; O2SAT 98
--- NOTE | 2023-12-02 11:12 | WOUNDNOTE ---
wound photo: left Achilles area
[2023-12-02] MEDS: Ferrous Sulfate 325 MG Tablet PO (11:45)
[2023-12-02] MEDS: Ascorbic Acid 500 MG Tablet PO (11:45)
--- NOTE | 2023-12-02 13:40 | PN_ITS ---
Subjective Subjective Patient seen and examined. He complained of some pain in his lower extremities due to his peripheral neuropathy. He was admitted with hypotension noted to be due to dehydration and medication induced. Hypotension has now resolved. IV fluids discontinued today. He is from assisted living and therapy is recommending SNF. Objective Data Objective Data Vital Signs: Vital Signs Temp Pulse Resp BP Pulse Ox O2 Del Method 97.5 F L 62 16 126/63 H 98 Room Air 12/02/23 10:00 12/02/23 10:00 12/02/23 10:12/02/23 10:12/02/23 10:12/02/23 10:00 Oxygen Delivery Method Room Air Weight: 183 lb 10.321 oz Body Mass Index (BMI) 27.1 Intake & Output: Intake and Output for Last 24 Hours 11/30/23 12/01/23 12/02/23 23:59 23:59 23:59 Intake Total 1215.75 / 1215.75 3729.33 / 3729.33 1073.33 / 1073.33 Output Total 1500 / 1500 1850 / 1850 Balance 1215.75 / 1215.75 2229.33 / 2229.33 -776.67 / -776.67 Lab / Micro Data 12/01/23 05:20 12/01/23 05:20 Labs: Laboratory Results - last 24 hr 12/01/23 05:20: Cortisol 13.80 Physical Exam Const alert, oriented x3 and no apparent distress General Appearance: cooperative HEENT normocephalic, head/scalp atraumatic, moist oral mucous membranes and oropharynx normal Eyes PERRL and EOMs intact bilaterally Neck no lymphadenopathy and supple Lymph Lymphatic: no lymphadenopathy noted and no lymphedema noted Resp normal respiratory effort, normal air movement and clear to auscultation bilaterally Cardio regular rate, regular rhythm, S1 normal heart sound, S2 normal heart sound and no murmurs GI normal to inspection, nondistended, normoactive bowel sounds, soft to palpation, non-tender and non-distended Extremity normal capillary refill, no clubbing, cyanosis or edema and no calf tenderness General Extremity: no tenderness to palpation of joints or extremities Skin General Skin Exam: no breakdown Neuro CN's II-XII intact bilaterally, no focal motor deficits, no sensory deficits noted and deep tendon reflexes 2+ bilaterally Motor Exam: strength 5/5 throughout and general weakness Psych thought process normal and cooperative Appearance: appropriate Assessment & Plan Assessment/Plan (1) Dehydration: (2) Hypotension: QUALIFIERS: Hypotension type: unspecified hypotension type Q ualified Code(s): I95.9 - Hypotension, unspecified PLAN: Plan #Hypotension * resolved. 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 Recommending placement in SNF. #Peripheral artery disease: has chronic pressure ulcers on left achilles heel. has had previus wound vac treatment. Wound care on board. Benign essential hypertension: Continue holding BP meds in light of hypotension. Blood pressures improved to the low 120s systolic. #Stage II-III sacral decubitus ulcer: Present on admission. Wound care on board. #Hyperlipidemia: On statin #CAD: S/p stents. Stable. On aspirin and statin #Paroxysmal A-fib: Anticoagulated. Not on blood thinners due to history of GI bleed. Increased fall risk #History of peripheral neuropathy: On gabapentin # Restless leg syndrome: On ropinirole DVT prophylaxis: Lovenox Disposition: Awaiting placement in half-way facility. Case management on board. Charges/Coding Visit Charges Inpatient E&M: 90200 Subs Hosp L2
--- NOTE | 2023-12-02 13:55 | CHAPLAIN ---
Type of Pastoral Visit _x__ Initial Visit ___ Follow-up Visit ___ On-call Visit ___ General Patient Visit ___ Spiritual Assessment ___ Family Conference ___ Bereavement ___ Rapid Response ___ Code Blue ___ Other (describe below) Pastoral Care Referral From _x__ Patient ___ Family ___ Nurse ___ Physician ___ Director Nursing Service ___ Membership Manager ___ Other (describe below) Sacrament/Intervention _x__ Active listening ___ Anointing ___ Restorationist ___ Bereavement ___ Communion ___ Pooja exploration ___ _x__ Life review _x__ Prayer ___ Reconciliation ___ Sacrament of Sick _x__ Supportive presence ___ Wedding ___ Other (describe below) Pastoral Comments 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
[2023-12-02 13:59] LABS: Pathologist Review Reviewed
[2023-12-02 16:00] VITALS: BP 146/74; PULSE 62; RESP 16; TEMP 36.4; O2SAT 100
--- NOTE | 2023-12-02 16:50 | CASEMGMT ---
Social Work Received notice from RN AMEYA Monaco that patient is from [facility]. Chart review: Noted [facility], and was discharged from TCU to [facility]. Living Will and [facility] are on file for this patient. Daughter Arti is the [facility]. Patient intervention: Met with patient in room, introducing to self and social work role. Patient talkative throughout social work visit, reminiscent over the experiences throughout the last 7 months, and even back into childhood and early adulthood. Patient talked of being home only 3 weeks in the last 7 months, with ultimate goals to be able to return back home. Patient discussed that currently residing at [facility] assisted living and receiving PT/OT a couple of times a week. Patient expresses frustration about varying degrees of endurance, as this is impeding goals to make it home. Patient reflective about loss of and how life has changed, not been what patient has expected for this stage of life. Much supportive listening, reflection, and emotional support provided. Explored whether patient has been experiencing any depression or anxiety. Patient acknowledges that has had some blues in the past, and especially when patient thinks of expectations and loss of . Patient reports to be feeling okay right now, is hopeful for the future, and reports to feel antidepressant medication is working well. Patient did discuss the time of night patient likes to take meds, especially for restless leg and how important this is to patient for sleep. Reviewed PT/OT notes and noted recommendation for continued skilled care. Patient reports would like as much therapy as possible, so is open and willing to have a SNF stay again. Offered patient a list of SNF choices, which would include [facility] and quality data. Patient declined list reporting that would like to stay at [facility], where patient has been residing for months now. Updated Dr. Sanchez to therapy recommendations. Referral to [facility] via [facility]. Spoke with patient's daughter via the phone and updated to recommendations for skilled care for rehab. Arti asked if this was like the [facility] TCU. Explained that yes, this would be the level of care, but that patient expressed wish to go to [facility]. Explored whether Arti has any issues with [facility] and Arti had no concerns voiced to this. Would have concern about the ability of private paying at the cost of . Arti expressed some questions about what is going on with medical care, and some questions about the adrenal gland, which was mentioned to Arti in the ED. Arti expressed would appreciate speaking to the doctor for an update. Let Arti know pass message along to hospitalist, but uncertain whether physician available today yet or whether would be tomorrow. Arti expressed understanding and flexible on timing (except the am tomorrow due to a prior family obligation). Updated Dr. Sanchez, providing Arti's number. Provider to follow up with family on 12.03.2023. Per [facility], patient could be accepted to [facility] and would have a new skilled benefit available (has had longer than a 60 day break in services). Plan: Referral to [facility] for skilled care. -BAO Hardin
[2023-12-02] MEDS: Gabapentin 100 MG Capsule 200 MG PO (20:39)
[2023-12-02] MEDS: Mirtazapine 15 MG Tablet 7.5 MG PO (20:47)
[2023-12-02] MEDS: Atorvastatin Calcium 80 MG Tablet PO (20:47)
[2023-12-02] MEDS: tiZANidine HCl 2 MG Tablet PO (20:56)
[2023-12-02 22:00] VITALS: BP 130/85; PULSE 67; RESP 16; TEMP 36.7; O2SAT 98
[2023-12-03] MEDS: Acetaminophen 325 MG Tablet 650 MG PO ×2 (03:26→20:46)
[2023-12-03 04:00] VITALS: BP 106/68; PULSE 66; RESP 17; TEMP 36.8; O2SAT 95
[2023-12-03 04:42] VITALS: BMI 27.0
[2023-12-03 05:55] LABS: Absolute Lymphocyte Count 0.99 X10^3/uL (0.83-4.51); Absolute Neutrophil Count 2.8 X10^3/uL (2.0-7.7); Basophil# 0.01 X10^3/uL; Basophil% 0.2 % (0-1); Eosinophil# 0.05 X10^3/uL; Eosinophils% 1.1 % (0-5); Hematocrit 31.4 % (40-54); Lymphocyte # 0.99 X10^3/ul (0.83-4.51); Mean Corp Hgb Conc 31.8 g/dL (32-36); Mean Corpuscular Hgb 30.1 pg (27.0-32.0); Mean Corpuscular Volume 94.6 fL (80-94); Mean Platelet Vol. 10.3 fl (6.2-12.0); Monocyte# 0.63 X10^3/uL; NRBC Flagged by Analyzer 0 % (0-5); Neutrophil # 2.81 X10^3/uL (2.7-7.7); Neutrophil % 62.5 % (47-70); Platelet Count 257 K/mm3 (150-450); RBC Distribution Width CV 14.2 % (11.6-14.6); RBC Distribution Width SD 49.2 fl (35.1-43.9); Red Blood Count 3.32 M/mm3 (4.6-6.2); White Blood Count 4.5 K/mm3 (4.4-11.0)
[2023-12-03 06:33] LABS: Anion Gap 1 (5-15); BUN 23 mg/dL (7-18); BUN/Creat Ratio 34.7 RATIO (10-20); Calcium,Total 8.5 mg/dL (8.5-10.1); Chloride 110 mmol/L (98-107); Creatinine, Serum 0.66 mg/dL (0.70-1.30); EST Glomerular Filtration Rate 122 mL/min (>60); Est Glom Filt Rate - Afr Amer 147 mL/min (>60); Estimated Creatinine Clearance 69.96 ml/min; Glucose 77 mg/dL (74-106); Sodium Level 141 mmol/L (136-145)
[2023-12-03 08:10] VITALS: O2SAT 95
[2023-12-03 09:41] VITALS: BP 97/63; PULSE 66; RESP 16; TEMP 36.8; O2SAT 100
[2023-12-03] MEDS: Gabapentin 100 MG Capsule PO ×2 (09:44→20:45)
[2023-12-03] MEDS: Ascorbic Acid 500 MG Tablet 1000 MG PO (09:44)
[2023-12-03] MEDS: Cilostazol 50 MG Tablet PO ×2 (09:45→20:45)
[2023-12-03] MEDS: Zinc Sulfate 50 mg zinc (220 mg) ORAL capsule PO (09:45)
[2023-12-03] MEDS: Cholecalciferol (Vit D3) 125 MCG CAPSULE (5,000 UNITS) PO (09:45)
[2023-12-03] MEDS: Finasteride 5 MG Tablet PO (09:45)
--- NOTE | 2023-12-03 11:33 | PN_ITS ---
Subjective Subjective Patient seen and examined. He said his peripheral neuropathy bothered him last night, but it resolved with the use of the gabapentin. He denies any dizziness, lightheadedness, palpitations, nausea or vomiting. He was worried because he said his blood pressure was up in the 140s. He is not on any blood pressure medications. Blood pressure however subsequently came down to 97/63. Review of systems otherwise negative. Objective Data Objective Data Vital Signs: Vital Signs Temp Pulse Resp BP Pulse Ox O2 Del Method 98.2 F 66 16 97/63 100 Room Air 12/03/23 09:41 12/03/23 09:41 12/03/23 09:41 12/03/23 09:41 12/03/23 09:41 12/03/23 09:41 Oxygen Delivery Method Room Air Weight: 182 lb 15.739 oz Body Mass Index (BMI) 27.0 Intake & Output: Intake and Output for Last 24 Hours 12/01/23 12/02/23 12/03/23 23:59 23:59 23:59 Intake Total 3729.33 / 3729.33 1493.33 / 1733.33 360 / 360 Output Total 1500 / 1500 2100 / 2101 Balance 2229.33 / 2229.33 -606.67 / -367.67 359 / 359 Lab / Micro Data 12/03/23 05:20 12/03/23 05:20 Labs: Laboratory Results - last 24 hr 12/01/23 05:20: Diff Path Review Reviewed 12/03/23 05:20: WBC 4.5, RBC 3.32 L, Hgb 10.0 L, Hct 31.4 L, MCV 94.6 H, MCH 30.1, MCHC 31.8 L, RDW Std Deviation 49.2 H, RDW Coeff of [place] 14.2, Plt Count 257, MPV 10.3, Immature Gran % (Auto) 0.200, Neut % (Auto) 62.5, Lymph % (Auto) 22.0, [place] % (Auto) 14.0 H, Eos % (Auto) 1.1, Baso % (Auto) 0.2, Absolute Neuts (auto) 2.8, Absolute Lymphs (auto) 0.99, Nucleated RBC % 0, Sodium 141, Potassium 4.0, Chloride 110 H, Carbon Dioxide 30.0, Anion Gap 1 L, BUN 23 H, C reatinine 0.66 L, Estim Creat Clear Calc 69.96, Est GFR (MDRD) Af Amer 147, Est GFR (MDRD) Non-Af 122, BUN/Creatinine Ratio 34.7 H, Glucose 77, Calcium 8.5 Physical Exam Const alert, oriented x3 and no apparent distress Constitutional Narrative: frail General Appearance: cooperative HEENT normocephalic, head/scalp atraumatic, hearing grossly normal bilaterally, moist oral mucous membranes and oropharynx normal Eyes PERRL and EOMs intact bilaterally Neck no lymphadenopathy and supple Lymph Lymphatic: no lymphadenopathy noted and no lymphedema noted Resp normal respiratory effort, normal air movement, no retractions, no use of accessory muscles and clear to auscultation bilaterally Cardio regular rate, regular rhythm, S1 normal heart sound, S2 normal heart sound and no murmurs Cardio Narrative: Irregularly irregular at ~80 bpm. GI normal to inspection, nondistended, normoactive bowel sounds, soft to palpation, non-tender and non-distended Extremity normal capillary refill, no clubbing, cyanosis or edema and no calf tenderness General Extremity: no tenderness to palpation of joints or extremities Skin Skin Narrative: Patient has evidence of chronic wound over his Left ankle that does not appear to be acutely infected General Skin Exam: no breakdown Neuro oriented x3, CN's II-XII intact bilaterally, moves all extremities, no focal motor deficits, no sensory deficits noted and deep tendon reflexes 2+ bilaterally Sensorium / Orientation: awake, alert, oriented to person, oriented to place and oriented to time Speech: speech normal Motor Exam: strength 5/5 throughout and general weakness Psych thought process normal, cooperative and affect normal Appearance: appropriate Assessment & Plan Assessment/Plan (1) Dehydration: (2) Hypotension: QUALIFIERS: Hypotension type: unspecified hypotension type Q ualified Code(s): I95.9 - Hypotension, unspecified PLAN: Plan #Hypotension * resolved. Was thought to be due to dehydration * BP was elevated this morning in the 140s systolic, but now down to 97/63. * check orthostatics. 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 Recommending placement in SNF. #Peripheral artery disease: has chronic pressure ulcers on left achilles heel. has had previous wound vac treatment. Wound care on board. Benign essential hypertension: Continue holding BP meds in light of hypotension. Blood pressures improved to the low 120s systolic. #Stage II-III sacral decubitus ulcer: Present on admission. Wound care on board. #Hyperlipidemia: On statin #CAD: S/p stents. Stable. On aspirin and statin #Paroxysmal A-fib: Anticoagulated. Not on blood thinners due to history of GI bleed. Increased fall risk #History of peripheral neuropathy: On gabapentin # Restless leg syndrome: On ropinirole DVT prophylaxis: Lovenox Disposition: Awaiting placement in fdc facility. Case management on board. Charges/Coding Visit Charges Inpatient E&M: 69688 Subs Hosp L2
[2023-12-03] MEDS: Ferrous Sulfate 325 MG Tablet PO (14:14)
[2023-12-03 14:16] VITALS: BP 124/65; PULSE 64; RESP 14; TEMP 36.3; O2SAT 96
[2023-12-03 14:56] LABS: Prealbumin 10.4 mg/dL (20.0-40.0)
--- NOTE | 2023-12-03 19:11 | CASEMGMT ---
Social Work Met with patient and patient's daughter Arti. Reported that patient can be accepted to [facility], when ready for discharge. Educated that per [facility], patients is eligible for a new skilled benefit period. 0700 has been started in the [facility]. Plan: [facility], short term, skilled level of care. -BAO Hardin
[2023-12-03 20:15] VITALS: BP 115/62; PULSE 70; RESP 16; TEMP 36.2; O2SAT 96
[2023-12-03] MEDS: Atorvastatin Calcium 80 MG Tablet PO (20:44)
[2023-12-03] MEDS: Mirtazapine 15 MG Tablet 7.5 MG PO (20:46)
[2023-12-03] MEDS: tiZANidine HCl 2 MG Tablet PO (20:47)
[2023-12-03] MEDS: Ammonium Lactate 225 gm Bottle 1 APPLIC TOPICAL (20:48)
[2023-12-03 20:57] VITALS: BP 115/62; PULSE 68; RESP 16; TEMP 36.2; O2SAT 96
[2023-12-04] VITALS (8 sets, daily range): BP systolic 87–126; BP diastolic 45–75; PULSE 60–90; RESP 16–18; TEMP 36.3–36.4; O2SAT 94–113; BMI 27.3
[2023-12-04] MEDS: Acetaminophen 325 MG Tablet 650 MG PO ×2 (02:44→09:57)
[2023-12-04 06:26] LABS: Absolute Lymphocyte Count 0.92 X10^3/uL (0.83-4.51); Absolute Neutrophil Count 2.7 X10^3/uL (2.0-7.7); Basophil# 0.01 X10^3/uL; Basophil% 0.2 % (0-1); Eosinophils% 2.2 % (0-5); Hematocrit 32.2 % (40-54); Hemoglobin 10.3 g/dL (13.0-16.5); Lymphocyte # 0.92 X10^3/ul (0.83-4.51); Lymphocyte % 20.5 % (19-41); Mean Corpuscular Hgb 30.2 pg (27.0-32.0); Mean Corpuscular Volume 94.4 fL (80-94); Mean Platelet Vol. 10.2 fl (6.2-12.0); Monocyte% 15.6 % (0-10); NRBC Flagged by Analyzer 0 % (0-5); Neutrophil # 2.73 X10^3/uL (2.7-7.7); Neutrophil % 61.1 % (47-70); Platelet Count 268 K/mm3 (150-450); RBC Distribution Width CV 14.1 % (11.6-14.6); RBC Distribution Width SD 48.4 fl (35.1-43.9); Red Blood Count 3.41 M/mm3 (4.6-6.2); White Blood Count 4.5 K/mm3 (4.4-11.0)
[2023-12-04 06:38] LABS: Anion Gap 5 (5-15); BUN 22 mg/dL (7-18); BUN/Creat Ratio 39.4 RATIO (10-20); Calcium,Total 8.7 mg/dL (8.5-10.1); Chloride 105 mmol/L (98-107); Creatinine, Serum 0.56 mg/dL (0.70-1.30); EST Glomerular Filtration Rate 149 mL/min (>60); Est Glom Filt Rate - Afr Amer 180 mL/min (>60); Estimated Creatinine Clearance 69.96 ml/min; Glucose 76 mg/dL (74-106); Potassium 3.8 mmol/L (3.5-5.1); Sodium Level 139 mmol/L (136-145)
[2023-12-04] MEDS: Gabapentin 100 MG Capsule PO (09:49)
[2023-12-04] MEDS: Ascorbic Acid 500 MG Tablet 1000 MG PO (09:54)
[2023-12-04] MEDS: Finasteride 5 MG Tablet PO (09:54)
[2023-12-04] MEDS: Cilostazol 50 MG Tablet PO (09:54)
[2023-12-04] MEDS: Cholecalciferol (Vit D3) 125 MCG CAPSULE (5,000 UNITS) PO (09:54)
[2023-12-04] MEDS: Zinc Sulfate 50 mg zinc (220 mg) ORAL capsule PO (09:54)
[2023-12-04] MEDS: 0.9% Normal Saline (1000mL) 1,000 ML 999 ML IV (10:15)
[2023-12-04] MEDS: Ferrous Sulfate 325 MG Tablet PO (11:21)
--- NOTE | 2023-12-04 11:38 | TREXTCAR_ITS ---
Diet Diet Order/Speech Therapy: 12/01/23 02:56 Diet: Cardiac - Heart Healthy Food consistency:: Regular Liquid Consistency:: Regular/Thin Is pt able to select menu?: Yes Diet Comments: Built up silverware, sippy cup with double handles Routine Orders/Code Status Enema Type: Fleetz Enema Frequency: Daily PRN Suppository Type: Dulcolax 10mg Suppository Frequency: Daily PRN O2 Frequency: PRN Keep PO Greater than or Equal to (%): 90 Wound(s) left posterior ancle: Wound Type: Pressure Injury coccyx: Wound Type: Pressure Injury groin folds: Wound Type: excoriation left Achilles area: Wound Type: nonhealing wound Dressing Change: Fibracol Therapies Weight Bearing: Weight bearing as tolerated Physical Therapy: Eval and Treat Occupational Therapy: Eval and Treat Problem/Diagnosis (1) Dehydration: Status: Acute Code(s): E86.0 - Dehydration (2) Hypotension: Status: Acute Code(s): I95.9 - Hypotension, unspecified Plan #Hypotension * resolved. Was thought to be due to dehydration * BP was elevated this morning in the 140s systolic, but now down to 97/63. * check orthostatics. 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 Recommending placement in SNF. #Peripheral artery disease: has chronic pressure ulcers on left achilles heel. has had previous wound vac treatment. Wound care on board. Benign essential hypertension: Continue holding BP meds in light of hypotension. Blood pressures improved to the low 120s systolic. #Stage II-III sacral decubitus ulcer: Present on admission. Wound care on board. #Hyperlipidemia: On statin #CAD: S/p stents. Stable. On aspirin and statin #Paroxysmal A-fib: Anticoagulated. Not on blood thinners due to history of GI bleed. Increased fall risk #History of peripheral neuropathy: On gabapentin # Restless leg syndrome: On ropinirole DVT prophylaxis: Lovenox Disposition: Awaiting placement in group home facility. Case management on board. Allergies/Procedures Done in Hospital Allergies No Known Allergies Allergy (Verified 11/30/23 22:19) Procedures: None Type of Care/Length of Stay Estimated LOS: Convalescent Care Less Than 30 days Type of Care Needed: Skilled Rehab Potential: Fair Prognosis: Fair Additional Orders/Day of Discharge Day of Discharge: 12/04/23 Dietary and Speech Recommendations Dietitian Recommendations/Changes: Continue cardiac diet to manage medical conditions. Continue 118mL Ensure Compact TID with medpass to provide supplemental protein intake. Discharge Plan Admission Admit Date/Time: 12/01/23 02:40 Primary Reason for Your Visit: hypotension Attending Provider: Gerri Sanchez Primary Care Provider: Ankur Medina Consulting Providers: Manoj Dominguez; Manoj England Instructions Patient Instructions: Hypotension Dc, ED Low Blood Pressure, All Causes Additional Instructions / Restrictions: to wear compression stockings to help with hypotension Discharge Orders/Prescriptions Prescriptions: New (DME) compression socks, medium Misc See Rx Instructions .ROUTE Qty: 2 0RF Rx Instructions: As directed Continued finasteride [Proscar] 5 mg tablet 5 mg PO DAILY cilostazol 50 mg tablet 50 mg PO BID atorvastatin 80 mg tablet 80 mg PO DAILY acetaminophen 500 mg Tablet 1,000 mg PO Q6H PRN (Reason: Pain Score 1-10) ascorbic acid (vitamin C) 500 mg Tablet 500 mg PO 1200 Qty: 1 0RF ferrous sulfate [FeroSul] 325 mg (65 mg iron) Tablet 325 mg PO DAILY@1200 Qty: 1 0RF mirtazapine 7.5 mg tablet 7.5 mg PO QHS miconazole nitrate 2 % powder 1 applic topical BID ammonium lactate 12 % cream 1 applic topical QHS hydrocortisone 2.5 % cream topical QHS Changed tizanidine 2 MG tablet 2 mg PO QHS PRN (Reason: muscle spasm) Qty: 30 0RF gabapentin 100 mg capsule 100 mg PO BIDCM Qty: 30 0RF Discontinued gabapentin 100 mg capsule 200 mg PO QHS Patient Comments: 07/15/23- pt states tried to cut back, taking only 100mg in the am, 200mg at hs Referrals / Follow Up: Ankur Medina DO [Primary Care Provider] - Within 1 Week Disposition Disposition (needs filled in before D/C Order can be placed): [facility] Facility (2) Hypotension Qualifiers: Hypotension type: unspecified hypotension type Qualified Code(s): I95.9 - Hypotension, unspecified
--- NOTE | 2023-12-04 11:40 | DS.PCM_ITS ---
Providers Date of Admission: 12/01/23 Date of Discharge: 12/04/23 Primary Care Physician: Dr. Ankur Medina, DO Consultations 12/01/23 02:56 Consult: Onc/Wound/vision rehabilitation therapist Routine Comment: Reason for Consult:: Chronic Left ankle wound. Reason For Visit: hypotension Diagnosis Discharge Diagnosis (1) Dehydration: Status: Acute Code(s): E86.0 - Dehydration (2) Hypotension: Status: Acute Code(s): I95.9 - Hypotension, unspecified Qualifiers: Hypotension type: unspecified hypotension type Qualified Code(s): I95.9 - Hypotension, unspecified Plan #Hypotension * resolved. Was thought to be due to dehydration * BP was elevated this morning in the 140s systolic, but now down to 97/63. * check orthostatics. 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 Recommending placement in SNF. #Peripheral artery disease: has chronic pressure ulcers on left achilles heel. has had previous wound vac treatment. Wound care on board. Benign essential hypertension: Continue holding BP meds in light of hypotension. Blood pressures improved to the low 120s systolic. #Stage II-III sacral decubitus ulcer: Present on admission. Wound care on board. #Hyperlipidemia: On statin #CAD: S/p stents. Stable. On aspirin and statin #Paroxysmal A-fib: Anticoagulated. Not on blood thinners due to history of GI bleed. Increased fall risk #History of peripheral neuropathy: On gabapentin # Restless leg syndrome: On ropinirole DVT prophylaxis: Lovenox Disposition: Awaiting placement in long-term facility. Case management on board. Medications at Discharge Home Medications finasteride 5 mg tablet (Proscar) 5 mg PO DAILY PROSTATES 07/18/17 cilostazol 50 mg tablet 50 mg PO BID vasodilator 02/02/22 acetaminophen 500 mg tablet 1,000 mg PO Q6H PRN Pain Score 1-10 07/15/23 atorvastatin 80 mg tablet 80 mg PO DAILY CHOLESTEROL 07/15/23 ascorbic acid (vitamin C) 500 mg tablet 500 mg PO 1200 #1 TAB 07/25/23 ferrous sulfate 325 mg (65 mg iron) tablet (FeroSul) 325 mg PO DAILY@1200 #1 TAB 07/25/23 ammonium lactate 12 % topical cream 1 applic topical QHS 11/30/23 hydrocortisone 2.5 % topical cream applic topical QHS 11/30/23 miconazole nitrate 2 % topical powder 1 applic topical BID 11/30/23 mirtazapine 7.5 mg tablet 7.5 mg PO QHS 11/30/23 compression socks, medium #2 ea 12/04/23 gabapentin 100 mg capsule 100 mg PO BIDCM nerve pain #30 caps 12/04/23 tizanidine 2 mg tablet 2 mg PO QHS PRN muscle spasm #30 tabs 12/04/23 Hospital Course Operations None Procedures None Summary of Care Provided Minutes Spent on Discharge: 48 Hospital Course: Patient is an 83 y/o male with a PMH as outlined with a PMH as outlined who was admitted via the ED on 12/04/2023 with a complaint of fatigue and low blood pressure. His blood pressure was checked and his extended care facility and was noted to be in the 70s systolic. He felt fatigued and weak. He had not been drinking adequate fluids and said he drank just about 1 cup of water and 1 to 2 cups of coffee daily. He denied any nausea or vomiting, fever or chills or any other symptoms. In the ED he was noted to have a blood pressure of 71/44 mmHg. He was hydrated with IV fluids and blood pressure did start trending upwards. Also concern for relative adrenal insufficiency though patient did not have any low sodium and high potassium 2 points towards this. He was admitted and managed for hypotension. Orthostatics were negative. He was hydrated aggressively with IV fluids. His hypotension resolved. IV fluids were discontinued. On review of his meds, patient was on a multitude of medications which could cause low blood pressure in the synergistic effect with exacerbating low blood pressure. These were tizanidine, finasteride, gabapentin and cilostazol. He was also on mirtazapine which could cause low blood pressure. Patient and daughter were counseled about this and his gabapentin evening dose was reduced to 100 mg. He was therefore on 100 mg twice daily of gabapentin. His tizanidine dose was also decreased to 2 mg instead of 2 to 4 mg. He was counseled to follow-up with his PCP and keep a blood pressure log for medications to be adjusted further as needed. He and his daughter were counseled that there was no clear indicator towards adrenal insufficiency in light of patient not having been on any long-term steroids and he did not have hyperkalemia with concomitant hyponatremia to point towards adrenal insufficiency when he came in. He was counseled to follow-up with his PCP for workup for adrenal insufficiency if it was felt necessary by his PCP. Patient's blood pressure did improve and he said his blood pressure usually runs low with a systolic being in the 100s. His blood pressure at time of discharge was in the 120s and 130s systolic. Patient was seen and examined prior to discharge. He had no active complaints. He had an uneventful night. Labs and vitals reviewed. Home medications reviewed and reconciled. Physical Exam Const alert, oriented x3 and no apparent distress Constitutional Narrative: frail General Appearance: cooperative, comfortable and well kempt Orientation / Consciousness: awake HEENT normocephalic, head/scalp atraumatic, hearing grossly normal bilaterally, moist oral mucous membranes and oropharynx normal Mouth: oral and palatal mucosa normal Eyes PERRL and EOMs intact bilaterally Neck no lymphadenopathy, supple and no JVD Lymph Lymphatic: no lymphadenopathy noted and no lymphedema noted Resp normal respiratory effort, normal air movement, no retractions, no use of accessory muscles and clear to auscultation bilaterally Cardio regular rate, regular rhythm, S1 normal heart sound, S2 normal heart sound and no murmurs GI normal to inspection, nondistended, normoactive bowel sounds, soft to palpation, non-tender and non-distended Extremity normal capillary refill, no clubbing, cyanosis or edema and no calf tenderness Extremity Narrative: Patient has evidence of chronic wound over his Left ankle that does not appear to be acutely infected General Extremity: no tenderness to palpation of joints or extremities Skin General Skin Exam: no breakdown Neuro oriented x3, CN's II-XII intact bilaterally, moves all extremities, no focal motor deficits, no sensory deficits noted and deep tendon reflexes 2+ bilaterally Neuro Narrative: Patient hard of hearing. Sensorium / Orientation: awake, alert, oriented to person, oriented to place and oriented to time Speech: speech normal Motor Exam: strength 5/5 throughout and general weakness Psych thought process normal, cooperative and affect normal Appearance: appropriate Weight / BMI Weight Weight: 185 lb 3.013 oz Body Mass Index (BMI) 27.3 ABG / Lab / Microbiology Data 12/04/23 05:22 12/04/23 05:22 Laboratory: Laboratory Results - last 24 hr 12/01/23 05:20: Prealbumin 10.4 L 12/04/23 05:22: WBC 4.5, RBC 3.41 L, Hgb 10.3 L, Hct 32.2 L, MCV 94.4 H, MCH 30.2, MCHC 32.0, RDW Std Deviation 48.4 H, RDW Coeff of [place] 14.1, Plt Count 268, MPV 10.2, Immature Gran % (Auto) 0.400, Neut % (Auto) 61.1, Lymph % (Auto) 20.5, [place] % (Auto) 15.6 H, Eos % (Auto) 2.2, Baso % (Auto) 0.2, Absolute Neuts (auto) 2.7, Absolute Lymphs (auto) 0.92, Nucleated RBC % 0, Sodium 139, Potassium 3.8, Chloride 105, Carbon Dioxide 29.0, Anion Gap 5, BUN 22 H, Creatinine 0.56 L, Estim Creat Clear Calc 69.96, Est GFR (MDRD) Af Amer 180, Est GFR (MDRD) Non-Af 149, BUN/Creatinine Ratio 39.4 H, Glucose 76, Calcium 8.7 D/C Instructions Discharge Diet: Low fat / Low cholesterol Discharge Activity: Return to Normal Activity Weight Bearing Status: Weight bearing as tolerated Call your doctor if you observe: Fever of 101 or Higher, Shortness of breath, Dizziness, Swelling in the ankles, Chest pain and Increased palpitations (irregular heartbeat) Meaningful Use Info Meaningful Use Meaningful Use Diagnoses (Choose all that apply): None applicable Ischemic Stroke Statin Dosing Therapy Reference: STATIN DOSE THERAPY REFERENCE: * Patients > 75 years receive moderate or high dose statin therapy. * Patients 75 years or YOUNGER should receive HIGH intensity statin dose unless contraindicated. You will be required to document reason for non-treatment if statin daily dose does not meet guidelines. HIGH DOSE STATIN THERAPY DAILY Atorvastatin > than or = to 40 mg Rosuvastatin > than or = to 20 mg Amlodipine + Atorvastatin > than or = to 2.5/40 mg Ezetimibe + Simvastatin 10/80 mg Simvastatin 80mg Discharge Plan Admission Admit Date/Time: 12/01/23 02:40 Primary Reason for Your Visit: hypotension Attending Provider: Gerri Sanchez Primary Care Provider: Ankur Medina Consulting Providers: Manoj Dominguez; Manoj England Instructions Patient Instructions: Hypotension Dc, ED Low Blood Pressure, All Causes Additional Instructions / Restrictions: to wear compression stockings to help with hypotension Discharge Orders/Prescriptions Prescriptions: New (DME) compression socks, medium Misc See Rx Instructions .ROUTE Qty: 2 0RF Rx Instructions: As directed Continued finasteride [Proscar] 5 mg tablet 5 mg PO DAILY cilostazol 50 mg tablet 50 mg PO BID atorvastatin 80 mg tablet 80 mg PO DAILY acetaminophen 500 mg Tablet 1,000 mg PO Q6H PRN (Reason: Pain Score 1-10) ascorbic acid (vitamin C) 500 mg Tablet 500 mg PO 1200 Qty: 1 0RF ferrous sulfate [FeroSul] 325 mg (65 mg iron) Tablet 325 mg PO DAILY@1200 Qty: 1 0RF mirtazapine 7.5 mg tablet 7.5 mg PO QHS miconazole nitrate 2 % powder 1 applic topical BID ammonium lactate 12 % cream 1 applic topical QHS hydrocortisone 2.5 % cream topical QHS Changed tizanidine 2 MG tablet 2 mg PO QHS PRN (Reason: muscle spasm) Qty: 30 0RF gabapentin 100 mg capsule 100 mg PO BIDCM Qty: 30 0RF Discontinued gabapentin 100 mg capsule 200 mg PO QHS Patient Comments: 07/15/23- pt states tried to cut back, taking only 100mg in the am, 200mg at hs Referrals / Follow Up: Ankur Medina DO [Primary Care Provider] - Within 1 Week Disposition Disposition (needs filled in before D/C Order can be placed): Longterm Facility Charges/Coding Visit Charges Inpatient E&M: 25722 Disch Hosp >30min
--- NOTE | 2023-12-04 12:16 | CASEMGMT ---
Social Work Patient being discharged to [facility] SNF today. Convalescent exemption form completed via the [employer]. Copy placed in chart and copy for packet to the longterm. Plan: Skilled level of care on a convalescent exemption form to [facility]. No other services requested or indicated. Violeta, Discharge Drawing Kiln Supervisor finalizing transport time, and communication to necessary parties about discharge. -BAO Hardin
--- NOTE | 2023-12-04 12:46 | CASEMGMT ---
Discharge Planning Discharge orders, signed med list, covid results and transport time sent to [facility] via [facility]. Physicians will transport patient by cot at 2p. Nursing, SW, patient, and his daughter/HCPOA (Arti) updated. Violeta Dangelo DC Planning Asst.
--- NOTE | 2023-12-04 13:31 | NURSING ---
This RN called and gave report to HODA Lubin at [facility].
== END 2023-12-04 16:32 | disposition skilled nursing facility (03) | DRG 641 ==
LOC: ED 12-01 01:52 → PCU 12-01 01:57
PROVIDERS: Admitting Provider Internal Medicine; Emergency Provider Emergency Medicine; PCP Family Medicine; Visit Provider Student in an Organized Health Care Education/Training Program
DX: E86.0 Dehydration (principal); I69.351 Hemiplegia and hemiparesis following cerebral infarction affecting right dominant side; E27.40 Unspecified adrenocortical insufficiency; L89.152 Pressure ulcer of sacral region, stage 2; B35.6 Tinea cruris; G25.81 Restless legs syndrome; I95.9 Hypotension, unspecified; I48.0 Paroxysmal atrial fibrillation; L89.622 Pressure ulcer of left heel, stage 2; I73.9 Peripheral vascular disease, unspecified; I10 Essential (primary) hypertension; I25.10 Atherosclerotic heart disease of native coronary artery without angina pectoris; E78.5 Hyperlipidemia, unspecified; G62.9 Polyneuropathy, unspecified; I25.2 Old myocardial infarction; E66.3 Overweight; R53.81 Other malaise; Z95.5 Presence of coronary angioplasty implant and graft; Z87.891 Personal history of nicotine dependence; Z68.29 Body mass index [BMI] 29.0-29.9, adult; Z79.899 Other long term (current) drug therapy; R53.1 Weakness; Z85.828 Personal history of other malignant neoplasm of skin
CPT/HCPCS: 36415; 71045; 73600; 80048; 80053; 80076; 81001; 82040; 82533; 83605; 83735; 84100; 84134; 84145; 84443; 84484; 85025; 85610; 85730; 87811; 93005; 94668; 97162; 97166; 97530; 97535; 99285; J7030; P9047; A4216

== ENCOUNTER 2024-02-07 15:06 | Inpatient (IN) | payer MEDICARE, BC, SELFPAY ==
[2024-02-07] VITALS (13 sets, daily range): BP systolic 112–136; BP diastolic 59–70; PULSE 58–73; RESP 12–19; TEMP 35.6–36.1; O2SAT 95–98; BMI 27.5; BMI 26.4
--- NOTE | 2024-02-07 15:37 | EX.ED.DYSGE1 ---
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) Essential hypertension Peripheral arterial occlusive disease History of basal cell cancer Cervical radiculopathy Stenosis of cervical spine with myelopathy Debility Restless leg syndrome Normochromic normocytic anemia Orthostatic hypotension Depression Urine retention Urinary incontinence Left ventricular hypertrophy BPH (benign prostatic hyperplasia) Pressure ulcer Myelopathy Tobacco dependence in remission Renal cyst Osteoarthritis Microscopic hematuria Eczema Anterolisthesis Leg swelling PAD (peripheral artery disease) Hyperlipidemia Atherosclerotic heart disease of [place] coronary artery without angina pectoris Paroxysmal atrial fibrillation Dilated aortic root Home Medications ?Medication ?Instructions ?Recorded ?Last Taken ?Type finasteride 5 mg tablet (Proscar) 5 mg PO DAILY PROSTATES 07/18/17 07/16/23 History cilostazol 50 mg tablet 50 mg PO BID vasodilator 02/02/22 07/16/23 History acetaminophen 500 mg tablet 1,000 mg PO Q6H PRN Pain Score 1-10 07/15/23 07/14/23 History atorvastatin 80 mg tablet 80 mg PO DAILY CHOLESTEROL 07/15/23 07/15/23 History ascorbic acid (vitamin C) 500 mg 500 mg PO 1200 #1 TAB 07/25/23 Unknown Rx tablet ferrous sulfate 325 mg (65 mg 325 mg PO DAILY@1200 #1 TAB 07/25/23 Unknown Rx iron) tablet (FeroSul) ammonium lactate 12 % topical cream 1 applic topical QHS 11/30/23 Unknown History miconazole nitrate 2 % topical 1 applic topical BID 11/30/23 Unknown History powder mirtazapine 7.5 mg tablet 7.5 mg PO QHS 11/30/23 Unknown History compression socks, medium #2 ea 12/04/23 Unknown Rx gabapentin 100 mg capsule 100 mg PO BIDCM nerve pain #30 caps 12/04/23 07/16/23 Rx tizanidine 2 mg tablet 2 mg PO QHS PRN muscle spasm #30 12/04/23 05/14/23 Rx tabs Allergy/AdvReac Type Severity Reaction Status Date / Time No Known Allergies Allergy Verified 02/07/24 15:09 Family History Mother CHF (congestive heart failure) Heart disease Hypertension Father COPD (chronic obstructive pulmonary disease) Surgical History S/P debridement History of vascular surgery History of coronary artery stent placement (01/11/16) H/O laminectomy History of knee surgery S/P rotator cuff repair History of pilonidal cyst Social History household members: none housing: house number of children: 5 current occupation: retired current occupational exposures/hazards: No history of recent travel: No Smoking Status: Former smoker how long ago did patient quit smokin alcohol intake: current alcohol intake frequency: holidays/special occasions only details: occasional,holiday substance use type: does not use caffeine: Yes Type: coffee Number of servings: 10 what type of physical activity do you participate in: bicycling frequency: 1-2 times per week duration: 15-30 minutes/day seatbelt use: always do you feel safe at home: Yes EXAM Physical Exam Const Vital Signs: 02/07/24 15:09 02/07/24 15:14 02/07/24 16:09 Temperature 96.9 F L Temperature Source Temporal Pulse Rate 61 Respiratory Rate 18 Respiratory Effort Normal Respiratory Pattern Normal Blood Pressure 112/61 Blood Pressure Mean 78 Pulse Ox 95 Oxygen Delivery Method Room Air Room Air 02/07/24 16:23 02/07/24 16:30 02/07/24 16:45 Temperature Temperature Source Pulse Rate 59 L 73 Respiratory Rate 15 19 H Respiratory Effort Respiratory Pattern Blood Pressure 132/60 H Blood Pressure Mean 82 Pulse Ox 95 Oxygen Delivery Method 02/07/24 17:00 02/07/24 17:13 02/07/24 17:15 Temperature Temperature Source Pulse Rate 72 58 L 63 Respiratory Rate 16 16 12 Respiratory Effort Respiratory Pattern Blood Pressure 129/59 H Blood Pressure Mean 79 Pulse Ox 97 98 97 Oxygen Delivery Method Room Air 02/07/24 19:00 Temperature Temperature Source Pulse Rate 65 Respiratory Rate 18 Respiratory Effort Respiratory Pattern Blood Pressure 128/69 H Blood Pressure Mean 88 Pulse Ox 95 Oxygen Delivery Method Room Air MDM MDM MDM Narrative Medical decision making narrative: HISTORY OF PRESENT ILLNESS: 83-year-old male presents with a chief complaint of headache feeling rotten. He complains of slurred speech that began 2 to 3 weeks ago. He notes 4 days ago he started having severe headache. He also endorses heaviness in his legs, decreased physical activity, slurred speech. Notes history of stroke in April 2023. Notes a fall but does not remember hitting his head. Notes he just bruised his knees and elbows. REVIEW OF SYSTEMS: Pertinent positives: Weakness, slurred speech Pertinent negatives: Vomiting, fever, urinary complaint PHYSICAL EXAM: Nursing triage notes reviewed, Vital signs reviewed Constitutional: please see mdm HENT: MMM Eyes: Pupils equal round and reactive to light, Extraocular muscles intact Neck: No stridor, no JVD, full neck ROM Lungs: Clear to auscultation, No wheezing or rales. No increased work of breathing, no conversational dyspnea, no accessory muscle use, no nasal flaring. No respiratory distress noted Heart: Regular rate and rhythm, No murmurs, No rubs and No gallops, 2+ distal pulses (radial, femoral, posterior tibial) in all extremities Abdomen: Soft, there is no tenderness, rigidity, rebound or guarding, no obvious peritoneal signs, no palpable pulsatile abdominal masses, no auscultated abdominal bruit : No CVAT Extremities: No edema, full range of motion bilateral elbows intact extension, full range of motion bilateral knees in flexion extension. Suspicion for fracture or dislocation. Neuro: Alert, oriented 3, slurred speech noted, no aphasia noted, no other cranial nerve deficits noted, no ataxia, intact sensation and upper and lower extremities. NIH of 1 Skin: No rash or lesions noted MEDICAL DECISION MAKING: Chief Complaint: Weakness, slurred speech External records reviewed: Reviewed PCP visit from earlier today Factors affecting care: TIA, MS, hypertension, peripheral artery disease, debility, history of tobacco abuse, hyperlipidemia, atrial fibrillation Social determinants of health: no elderly, former tobacco abuser History obtained from others: the patient's daughter Consults: Internal medicine [facility] Narrative: Patient was hemodynamically stable, afebrile and nontoxic-appearing. Exam with NIH of 1 for slurred speech otherwise nonfocal. The patient was not a TNK or thrombectomy candidate given last known well was greater than 24 hours prior to arrival. I considered the following differential diagnosis: CVA, LVO, ICH, electro disturbance, ACS, arrhythmia, anemia, Protocol orders were placed by nursing which included chest x-ray, PT/INR, BMP, PTT and CBC as well as an EKG I added a Noncon CT of the head, CT of the head neck, urinalysis to the patient's protocol orders ALL IMAGES (IF OBTAINED) HAVE BEEN PERSONALLY REVIEWED AND INTERPRETED BY MYSELF. CTA of the head neck shows no evidence of large vessel, ICH, occlusion I have personally reviewed the patient's chest x-ray. Chest x-ray is unremarkable for pulmonary edema, pneumothorax, pneumonia or focal cardiopulmonary abnormality. CBC with no leukocytosis, mild anemia, no thrombocytopenia INR within norm limits BMP without evidence of significant electrolyte abnormalities, no anion gap, no acute kidney injury. Urinalysis shows no evidence of urinary inflammation suggestive of UTI Patient was reevaluated at 6:50 PM continues to have slurred speech but no other new focal deficits. Patient and family updated on results given slurred speech and concern for CVA will admit for MRI and respiratory modification. Discussed with hospitalist Dr. Starr The patient and/or family, caregivers express understanding. The patient and/or family, caregivers agrees with the plan. Shared decision making: I will have a discussion with the patient and or visitors regarding risk/benefits of further testing or admission. They will be made aware of of the risk/benefits inherent in this decision they will be given the opportunity to voice understanding. Total critical care time today provided was at least 0 minutes. This excludes separately billable procedures. Critical care time (if documented) is secondary to the patient having high probability of clinically significant/life threatening deterioration in the patient's condition which required my urgent intervention. Impression: 1. Weakness 2. Slurred speech 3. History of TIA Dispo: Admit to [facility] observation This note was generated with [employer] dictation software. It may contain incorrect words, spelling, and punctuation that were not noted in review of the chart prior to signing. Lab Data Labs: Laboratory Results - last 24 hr 02/07/24 02/07/24 15:27 16:18 WBC 3.7 L RBC 3.34 L Hgb 10.2 L Hct 31.8 L MCV 95.2 H MCH 30.5 MCHC 32.1 RDW Std Deviation 52.2 H RDW Coeff of [place] 15.1 H Plt Count 212 MPV 10.6 Immature Gran % (Auto) 0.300 Neut % (Auto) 70.7 H Lymph % (Auto) 15.4 L [place] % (Auto) 11.1 H Eos % (Auto) 2.2 Baso % (Auto) 0.3 Absolute Neuts (auto) 2.6 Absolute Lymphs (auto) 0.57 L Nucleated RBC % 0 PT 14.4 INR 1.1 APTT 53.0 H Sodium 139 Potassium 4.3 Chloride 105 Carbon Dioxide 31.0 Anion Gap 3 L BUN 26 H Creatinine 0.75 Estim Creat Clear Calc 69.96 Est GFR (MDRD) Af Amer 127 Est GFR (MDRD) Non-Af 105 BUN/Creatinine Ratio 34.6 H Glucose 104 Calcium 9.1 Urine Color Yellow Urine Clarity Clear Urine pH 6.5 Ur Specific [place] 1.010 Urine Protein Negative Urine Glucose (UA) Normal Urine Ketones Negative Urine Occult Blood Negative Urine Nitrite Negative Urine Bilirubin Negative Urine Urobilinogen Normal Ur Leukocyte Esterase Negative Urine RBC 0 SEEN Urine WBC 0 SEEN Ur Squamous Epith Cells 0 SEEN Urine Bacteria 0 SEEN Urine Mucus 0 SEEN Radiography Diagnostic Testing: Clinical Impression(s) from Imaging Studies Head/Neck CTA 02/07/24 15:57 IMPRESSION: Negative CTA carotid and CTA brain. Electronically Signed: Bala Call MD at 17:56 EDT , Chest X-Ray 02/07/24 16:19 IMPRESSION: No radiographic evidence of acute cardiopulmonary disease. Electronically Signed: Bala Call MD at 17:01 EDT , Discharge Plan Triage Chief Complaint: Weakness Other Complaint: Neuro S/Sx ED Provider: Darrian Rosen Dx/Rx/DC Orders Prescriptions: No Action finasteride [Proscar] 5 mg tablet 5 mg PO DAILY cilostazol 50 mg tablet 50 mg PO BID atorvastatin 80 mg tablet 80 mg PO DAILY acetaminophen 500 mg Tablet 1,000 mg PO Q6H PRN (Reason: Pain Score 1-10) ascorbic acid (vitamin C) 500 mg Tablet 500 mg PO 1200 Qty: 1 0RF ferrous sulfate [FeroSul] 325 mg (65 mg iron) Tablet 325 mg PO DAILY@1200 Qty: 1 0RF mirtazapine 7.5 mg tablet 7.5 mg PO QHS miconazole nitrate 2 % powder 1 applic topical BID ammonium lactate 12 % cream 1 applic topical QHS tizanidine 2 MG tablet 2 mg PO QHS PRN (Reason: muscle spasm) Qty: 30 0RF gabapentin 100 mg capsule 100 mg PO BIDCM Qty: 30 0RF (DME) compression socks, medium Misc See Rx Instructions .ROUTE Qty: 2 0RF Rx Instructions: As directed Primary Care Provider: Ankur Medina Referrals: Ankur Medina DO [Primary Care Provider] - Print Language: Bulgarian
--- NOTE | 2024-02-07 15:48 | EKG12_ITS ---
Test Reason : Blood Pressure : / mmHG Vent. Rate : 072 BPM Atrial Rate : 072 BPM P-R Int : 144 ms QRS Dur : 112 ms QT Int : 430 ms P-R-T Axes : 048 -40 076 degrees QTc Int : 470 ms Normal sinus rhythm Left axis deviation Incomplete right bundle branch block Minimal voltage criteria for LVH, may be normal variant ( R in aVL ) Abnormal ECG Confirmed by Darrius Duque ([id number]), tape editor JUSTINE WILSON ([id number]) on 02/10/2024 9:53:41 AM Referred By: Confirmed By:Darrius Duque
--- NOTE | 2024-02-07 15:57 | CT_ITS ---
EXAM: CT ANGIOGRAPHY HEAD AND NECK WITH INTRAVENOUS CONTRAST CLINICAL INDICATION: slurred speeech TECHNIQUE: [place]/head and neck CT angiography protocol performed with intravenous contrast. This CT exam was performed using one or more of the following dose reduction techniques: automated exposure control, adjustment of the mA and/or kV according to patient size, and/or use of iterative reconstruction technique. MIP reconstructed images were created and reviewed. CONTRAST: IV 100mL [id number] COMPARISON: No relevant prior studies available. FINDINGS: HEAD: RIGHT ANTERIOR CEREBRAL ARTERY: Unremarkable. No occlusion or significant stenosis. Anterior communicating artery is present. No aneurysm. RIGHT MIDDLE CEREBRAL ARTERY: Unremarkable. No occlusion or significant stenosis. No aneurysm. RIGHT POSTERIOR CEREBRAL ARTERY: Unremarkable. No occlusion or significant stenosis. No aneurysm. RIGHT INTRACRANIAL INTERNAL CAROTID ARTERY: Unremarkable. No significant stenosis. No dissection or occlusion. RIGHT INTRACRANIAL VERTEBRAL ARTERY: Unremarkable. No significant stenosis. No dissection or occlusion. LEFT ANTERIOR CEREBRAL ARTERY: Unremarkable. No occlusion or significant stenosis. No aneurysm. LEFT MIDDLE CEREBRAL ARTERY: Unremarkable. No occlusion or significant stenosis. No aneurysm. LEFT POSTERIOR CEREBRAL ARTERY: Unremarkable. No occlusion or significant stenosis. No aneurysm. LEFT INTRACRANIAL INTERNAL CAROTID ARTERY: Unremarkable. No significant stenosis. No dissection or occlusion. LEFT INTRACRANIAL VERTEBRAL ARTERY: Unremarkable. No significant stenosis. No dissection or occlusion. BASILAR ARTERY: Unremarkable. No occlusion or significant stenosis. No aneurysm. OTHER VASCULATURE: No vascular malformation. NECK: RIGHT COMMON CAROTID ARTERY: Unremarkable. No significant stenosis. No dissection or occlusion. RIGHT EXTRACRANIAL INTERNAL CAROTID ARTERY: Unremarkable. No significant stenosis. No dissection or occlusion. RIGHT EXTERNAL CAROTID ARTERY: Unremarkable. No occlusion. RIGHT EXTRACRANIAL VERTEBRAL ARTERY: Unremarkable. No significant stenosis. No dissection or occlusion. LEFT COMMON CAROTID ARTERY: Unremarkable. No significant stenosis. No dissection or occlusion. LEFT EXTRACRANIAL INTERNAL CAROTID ARTERY: Unremarkable. No significant stenosis. No dissection or occlusion. LEFT EXTERNAL CAROTID ARTERY: Unremarkable. No occlusion. LEFT EXTRACRANIAL VERTEBRAL ARTERY: Unremarkable. No significant stenosis. No dissection or occlusion. BRACHIOCEPHALIC AND SUBCLAVIAN ARTERIES: Unremarkable as visualized. No occlusion or significant stenosis. LUNG APICES: Unremarkable as visualized. HEAD and NECK: BONES/JOINTS: Unremarkable. No discrete lytic or blastic abnormalities. SOFT TISSUES: Unremarkable. CAROTID STENOSIS REFERENCE USING NASCET CRITERIA: % ICA stenosis = (1 - narrowest ICA diameter/diameter of distal cervical ICA) x 100. Mild - <50% stenosis. Moderate - 50-69% stenosis. Severe - 70-94% stenosis. Near occlusion - 95-99% stenosis. Occluded - 100% stenosis. CT/CTA Head AND Neck W/ Contrast IMPRESSION: Negative CTA carotid and CTA brain. Electronically Signed: Bala Call MD at 17:56 EDT ,
[2024-02-07 16:06] LABS: Absolute Lymphocyte Count 0.57 X10^3/uL (0.83-4.51); Absolute Neutrophil Count 2.6 X10^3/uL (2.0-7.7); Basophil# 0.01 X10^3/uL; Basophil% 0.3 % (0-1); Eosinophil# 0.08 X10^3/uL; Eosinophils% 2.2 % (0-5); Hematocrit 31.8 % (40-54); Hemoglobin 10.2 g/dL (13.0-16.5); Lymphocyte # 0.57 X10^3/ul (0.83-4.51); Lymphocyte % 15.4 % (19-41); Mean Corp Hgb Conc 32.1 g/dL (32-36); Mean Corpuscular Hgb 30.5 pg (27.0-32.0); Mean Corpuscular Volume 95.2 fL (80-94); Mean Platelet Vol. 10.6 fl (6.2-12.0); Monocyte# 0.41 X10^3/uL; Monocyte% 11.1 % (0-10); NRBC Flagged by Analyzer 0 % (0-5); Neutrophil # 2.62 X10^3/uL (2.7-7.7); Neutrophil % 70.7 % (47-70); POSITIVE DIFFERENTIAL YES; Platelet Count 212 K/mm3 (150-450); RBC Distribution Width CV 15.1 % (11.6-14.6); RBC Distribution Width SD 52.2 fl (35.1-43.9); Red Blood Count 3.34 M/mm3 (4.6-6.2); White Blood Count 3.7 K/mm3 (4.4-11.0)
[2024-02-07 16:17] LABS: Anion Gap 3 (5-15); BUN 26 mg/dL (7-18); BUN/Creat Ratio 34.6 RATIO (10-20); Calcium,Total 9.1 mg/dL (8.5-10.1); Chloride 105 mmol/L (98-107); Creatinine, Serum 0.75 mg/dL (0.70-1.30); EST Glomerular Filtration Rate 105 mL/min (>60); Est Glom Filt Rate - Afr Amer 127 mL/min (>60); Estimated Creatinine Clearance 69.96 ml/min; Glucose 104 mg/dL (74-106); Potassium 4.3 mmol/L (3.5-5.1); Sodium Level 139 mmol/L (136-145)
--- NOTE | 2024-02-07 16:19 | RAD_ITS ---
EXAM: XR CHEST, 1 VIEW CLINICAL INDICATION: Stroke TECHNIQUE: Frontal view of the chest. COMPARISON: 11/30/2023 FINDINGS: LUNGS AND PLEURAL SPACES: Unremarkable. No consolidation or edema. No pneumothorax. No effusion. HEART: Unremarkable. Cardiac silhouette not enlarged. MEDIASTINUM: Central airways and mediastinal contour are unremarkable. BONES/JOINTS: Unremarkable. No acute fracture. SOFT TISSUES: Unremarkable. RAD/Chest 1 View (Portable) IMPRESSION: No radiographic evidence of acute cardiopulmonary disease. Electronically Signed: Bala Call MD at 17:01 EDT ,
--- NOTE | 2024-02-07 16:24 | ED.RN ---
1615: I spoke w/ primary provider regarding orders for Q30 NIHSS, I asked Do you want them ordered and completed. No orders for it at this time?. I was told by Dr. Rosen No, symptoms started approx 1-2 weeks ago. It is not longer relevant.
[2024-02-07 16:25] LABS: Bacteria 0 SEEN /hpf (None Seen); Mucous, Urine 0 SEEN /hpf (<or=2+); Red Blood Cells-Urine 0 SEEN /hpf (0-5); Squamous Epithelial Cells - UA 0 SEEN /hpf (0-5); White Blood Cells 0 SEEN /hpf (0-5)
[2024-02-07 16:47] LABS: International Normalized Ratio 1.1; Prothrombin Time (Protime)PT. 14.4 SECONDS (11.7-14.9)
[2024-02-07 16:53] LABS: Color, Urine Yellow (Yellow); Glucose, Dipstick Normal (Normal); Ketone-Dipstick Negative (Negative); Leukocyte Esterase-Dipstick Negative /ul (Negative); Nitrite-Dipstick Negative (Negative); Occult Blood-Urine Negative /ul (Negative); Protein-Dipstick Negative (Negative); Urine Bilirubin Dipstick Negative (Negative); Urine Clarity Clear (Clear); Urine Urobilinogen Normal (Normal); Urine pH 6.5 (5.0 - 8.0)
--- NOTE | 2024-02-07 19:21 | PCM.HP.STD ---
[facility] - General General Date of Admission: 02/07/24 Date of Service: 02/07/24 Chief Complaint: Headache, Generalized Weakness and Slurred Speech x 3 weeks. HPI Narrative SARA SAHA, is a 83 M with a past medical history of essential hypertension, hyperlipidemia, overweight; with BMI of 27.5 this admission, history of tobacco abuse (quit 1979), CAD; s/p inferior wall STEMI (2015); s/p stent, PAF; not on anticoagulation due to previous GI bleed and increased fall risk, history of dilated aortic root, history of LVH, history of CVA (2022); with residual Right hemiparesis and subsequent stint in TCU, PAD; with chronic pressure ulcer over Left Achilles and the plantar surface of the Left heel and Right anterior regalado, history of vascular surgery LLE (2021), chronic stage II-III sacral decubitus ulcer, GOLD, chronic leukopenia, neuropathy, history of stenosis of the cervical spine; with myelopathy and radiculopathy with subsequent C3-C4 laminectomy (2020), RLS, history of achalasia; with esophageal dysmotility, 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 difficile in the past followed by Dr. Monterroso of gastroenterology, history of basal cell carcinoma, history of pilonidal cyst, history of eczema; on daily hydrocortisone cream, BPH, history of renal cyst, urinary incontinence, depression, chronic debility, OA; with history of knee surgery and recent admission here from December 01, 2023 to December 04, 2023 for treatment of hypotension due to dehydration with patient still with Full Code status who presents to [facility] ER complaining of headache, generalized weakness and slurred speech. Mr. Saha reports his symptoms began approximately 3 weeks prior to admission with slurred speech and then ~4 days ago he developed a severe generalized headache. He also admits to a sensation of heaviness in his legs with a recent fall but he denies LOC or significant head trauma with that fall - only bruised knees and elbows. He denies associated fever, chills, nausea, vomiting, diarrhea, constipation, visual changes or other focal neurologic weakness but he does admit to decreased physical activity due to increased fatigue. In the ER he was noted to have a CTA of the head and neck that was negative for acute pathologic changes along with an unremarkable CXR, normal vital signs and lab tests that were also unremarkable. Nevertheless, the ER physician was concerned for possible subacute CVA that was not evident on the CTA and he recommended patient have an MRI of the brain to be sure with patient then admitted to the PCU under observation status for a stay that is expected to be less than 2 midnights. [facility] Medical History (Updated 02/08/24 @ 05:[address] Manoj Dominguez, DO) Paroxysmal atrial fibrillation Hypotension Generalized weakness 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 History of iron deficiency anemia Cervical spinal stenosis Neuropathic pain Atrial fibrillation TIA (transient ischemic attack) History of ST elevation myocardial infarction (STEMI) (01/11/16) 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) Essential hypertension Peripheral arterial occlusive disease History of basal cell cancer Cervical radiculopathy Stenosis of cervical spine with myelopathy Debility Restless leg syndrome Normochromic normocytic anemia Orthostatic hypotension Depression Urine retention Urinary incontinence Left ventricular hypertrophy BPH (benign prostatic hyperplasia) Pressure ulcer Myelopathy Tobacco dependence in remission Renal cyst Osteoarthritis Microscopic hematuria Eczema Anterolisthesis Leg swelling PAD (peripheral artery disease) Hyperlipidemia Atherosclerotic heart disease of [place] coronary artery without angina pectoris Paroxysmal atrial fibrillation Dilated aortic root Home Medications ?Medication ?Instructions ?Recorded ?Last Taken ?Type finasteride 5 mg tablet (Proscar) 5 mg PO DAILY PROSTATES 07/18/17 07/16/23 History cilostazol 50 mg tablet 50 mg PO BID vasodilator 02/02/22 07/16/23 History acetaminophen 500 mg tablet 1,000 mg PO Q6H PRN Pain Score 1-10 07/15/23 07/14/23 History atorvastatin 80 mg tablet 80 mg PO DAILY CHOLESTEROL 07/15/23 07/15/23 History ascorbic acid (vitamin C) 500 mg 500 mg PO 1200 #1 TAB 07/25/23 Unknown Rx tablet ferrous sulfate 325 mg (65 mg 325 mg PO DAILY@1200 #1 TAB 07/25/23 Unknown Rx iron) tablet (FeroSul) ammonium lactate 12 % topical cream 1 applic topical QHS 11/30/23 02/06/24 History miconazole nitrate 2 % topical 1 applic topical BID 11/30/23 Unknown History powder mirtazapine 7.5 mg tablet 7.5 mg PO QHS 11/30/23 Unknown History compression socks, medium #2 ea 12/04/23 Unknown Rx gabapentin 100 mg capsule 100 mg PO BIDCM nerve pain #30 caps 12/04/23 07/16/23 Rx tizanidine 2 mg tablet 2 mg PO QHS PRN muscle spasm #30 12/04/23 05/14/23 Rx tabs Allergy/AdvReac Type Severity Reaction Status Date / Time No Known Allergies Allergy Verified 02/07/24 15:09 Family History Mother CHF (congestive heart failure) Heart disease Hypertension Father COPD (chronic obstructive pulmonary disease) Surgical History S/P debridement History of vascular surgery History of coronary artery stent placement (01/11/16) H/O laminectomy History of knee surgery S/P rotator cuff repair History of pilonidal cyst Social History household members: none housing: house number of children: 5 current occupation: retired current occupational exposures/hazards: No history of recent travel: No Smoking Status: Former smoker how long ago did patient quit smokin alcohol intake: current alcohol intake frequency: holidays/special occasions only details: occasional,holiday substance use type: does not use caffeine: Yes Type: coffee Number of servings: 10 what type of physical activity do you participate in: bicycling frequency: 1-2 times per week duration: 15-30 minutes/day seatbelt use: always do you feel safe at home: Yes ROS ROS Narrative Review of systems: General: Patient denies fever of chills but he does admit to fatigue and low energy as per HPI. HENT: Denies headache, denies stuffy nose, denies sore throat EYES: Denies changes in vision or discharge from eyes. Resp: Denies cough, denies shortness of breath Cardiac: Denies chest pain, palpitations or heart racing. GI: Denies abdominal pain, denies changes in bowel, denies nausea or vomiting. : Denies changes in urination Extremity: Denies swelling Musculoskeletal: Feels somewhat generally weak and unwell with a sensation of heaviness in legs and recent fall as per HPI. Neuro: Patient admits to headache with slurred speech and heaviness in his legs but he denies paresthesias or other focal neurologic deficits. Heme: Denies any bleeding or bruising Skin: Denies rashes Psychiatric: No complaints voiced related to uncontrolled depression or anxiety. Endocrine: No polyuria, polydipsia or polyphagia. The rest of the 14 point ROS was negative except for positives in HPI. Vital Signs Vital Signs Vital Signs: 02/07/24 15:09 02/07/24 15:14 02/07/24 16:09 Temperature 96.9 F L Temperature Source Temporal Pulse Rate 61 Respiratory Rate 18 Respiratory Effort Normal Respiratory Pattern Normal Blood Pressure 112/61 Blood Pressure Mean 78 Pulse Ox 95 Oxygen Delivery Method Room Air Room Air 02/07/24 16:23 02/07/24 16:30 02/07/24 16:45 Temperature Temperature Source Pulse Rate 59 L 73 Respiratory Rate 15 19 H Respiratory Effort Respiratory Pattern Blood Pressure 132/60 H Blood Pressure Mean 82 Pulse Ox 95 Oxygen Delivery Method 02/07/24 17:00 02/07/24 17:13 02/07/24 17:15 Temperature Temperature Source Pulse Rate 72 58 L 63 Respiratory Rate 16 16 12 Respiratory Effort Respiratory Pattern Blood Pressure 129/59 H Blood Pressure Mean 79 Pulse Ox 97 98 97 Oxygen Delivery Method Room Air 02/07/24 19:00 Temperature Temperature Source Pulse Rate 65 Respiratory Rate 18 Respiratory Effort Respiratory Pattern Blood Pressure 128/69 H Blood Pressure Mean 88 Pulse Ox 95 Oxygen Delivery Method Room Air Weight Weight: 186 lb 8.177 oz Body Mass Index (BMI) 27.5 Physical Exam Const alert, oriented x3, no apparent distress and average body habitus General Appearance: cooperative HEENT normocephalic, head/scalp atraumatic, hearing grossly normal bilaterally and moist oral mucous membranes Eyes PERRL and EOMs intact bilaterally Neck no lymphadenopathy and supple Resp normal respiratory effort, no retractions, no use of accessory muscles and clear to auscultation bilaterally Cardio regular rate and regular rhythm GI normal to inspection, nondistended, normoactive bowel sounds, soft to palpation, non-tender and non-distended Extremity normal to inspection and full ROM Skin Skin Narrative: Patient has no evidence of rash, abscess or jaundice. Neuro oriented x3, CN's II-XII intact bilaterally, moves all extremities and no focal motor deficits Sensorium / Orientation: awake, alert, oriented to person, oriented to place and oriented to time Speech: speech normal Psych affect normal Results Medical Records Data Attestation: I reviewed the patient's medical records Lab / Micro Data Attestation: I reviewed the patient's lab results. 02/07/24 15:27 02/07/24 15:27 Labs: Laboratory Results - last 24 hr 02/07/24 15:27: WBC 3.7 L, RBC 3.34 L, Hgb 10.2 L, Hct 31.8 L, MCV 95.2 H, MCH 30.5, MCHC 32.1, RDW Std Deviation 52.2 H, RDW Coeff of [place] 15.1 H, Plt Count 212, MPV 10.6, Immature Gran % (Auto) 0.300, Neut % (Auto) 70.7 H, Lymph % (Auto) 15.4 L, [place] % (Auto) 11.1 H, Eos % (Auto) 2.2, Baso % (Auto) 0.3, Absolute Neuts (auto) 2.6, Absolute Lymphs (auto) 0.57 L, Nucleated RBC % 0, PT 14.4, INR 1.1, APTT 53.0 H, Sodium 139, Potassium 4.3, Chloride 105, Carbon Dioxide 31.0, Anion Gap 3 L, BUN 26 H, Creatinine 0.75, Estim Creat Clear Calc 69.96, Est GFR (MDRD) Af Amer 127, Est GFR (MDRD) Non-Af 105, BUN/Creatinine Ratio 34.6 H, Glucose 104, Calcium 9.1 02/07/24 16:18: Urine Color Yellow, Urine Clarity Clear, Urine pH 6.5, Ur Specific [place] 1.010, Urine Protein Negative, Urine Glucose (UA) Normal, Urine Ketones Negative, Urine Occult Blood Negative, Urine Nitrite Negative, Urine Bilirubin Negative, Urine Urobilinogen Normal, Ur Leukocyte Esterase Negative, Urine RBC 0 SEEN, Urine WBC 0 SEEN, Ur Squamous Epith Cells 0 SEEN, Urine Bacteria 0 SEEN, Urine Mucus 0 SEEN Imaging Radiology Impression Head/Neck CTA 02/07/24 15:57 IMPRESSION: Negative CTA carotid and CTA brain. Electronically Signed: Bala Call MD at 17:56 EDT , Chest X-Ray 02/07/24 16:19 IMPRESSION: No radiographic evidence of acute cardiopulmonary disease. Electronically Signed: Bala Call MD at 17:01 EDT , Assessment & Plan Assessment/Plan (1) Headache: QUALIFIERS: Headache type: unspecified Headache chronicity pattern: acute headache Intractability: not intractable Qualified Code(s): R51.9 - Headache, unspecified (2) Slurred speech: (3) Generalized weakness: (4) Paroxysmal atrial fibrillation: (5) History of CVA (cerebrovascular accident): PLAN: Plan 1. Generalized Headache and Slurred Speech with Leg Heaviness in the setting of previous CVA (2022); with residual Right hemiparesis - Admit to PCU under observation status. Check MRI of the brain to confirm the low-index of clinical suspicion he has had a new neurologic insult. Continue ECASA begun in the ER. Finally, we will consult PT/OT and Case Management to see this patient on-rounds in the AM for further recommendations with help appreciated in advance. 2. Hyperlipidemia - With possible Adverse Drug Reaction to statin-induced myotoxicity causing or contributing to #1. 3. PAF; not on anticoagulation due to previous GI bleed and increased fall risk complicating #1 & #2 - Stable with patient currently in NSR. 4. Essential hypertension - Hold scheduled antihypertensives until CVA definitively ruled out on MRI to allow for 'permissive hypertension'. 5. Recent admission here from December 01, 2023 to December 04, 2023 for treatment of hypotension due to dehydration with patient still with Full Code status - Noted. 6. Chronic debility and OA; with history of knee surgery adding to the pathology of #1 - #5 - Noted. 7. Overweight; with BMI of 27.5 this admission - Weight loss will be recommended. Check TSH. 8. History of tobacco abuse (quit 1979) - Noted. 9. CAD; s/p inferior wall STEMI (2015); s/p stent - Stable. 10. History of dilated aortic root - Noted. 11. History of LVH - Stable. 12. PAD; with chronic pressure ulcer over Left Achilles and the plantar surface of the Left heel and Right anterior regalado - Noted. 13. History of vascular surgery LLE (2021) - Noted. 14. Chronic stage II-III sacral decubitus ulcer - Noted. 15. GOLD - Stable with hemoglobin of 10.2 g/dL with MCV of 95.2 fL present on admission. 16. Chronic leukopenia - Stable with slightly low WBC of 3.7 present on admission. 17. Neuropathy - Continue current regimen. 18. History of stenosis of the cervical spine; with myelopathy and radiculopathy with subsequent C3-C4 laminectomy (2020) - Stable. 19. RLS - Stable. 20. History of achalasia; with esophageal dysmotility - Stable. 21. 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 difficile in the past followed by Dr. Monterroso of gastroenterology - Stable with no signs of recurrence. 22. History of basal cell carcinoma - Noted. 23. History of pilonidal cyst - Noted. 24. History of eczema; on daily hydrocortisone cream - Stable. 25. BPH - Continue Finasteride as previous. 26. History of renal cyst - Noted. 27. Urinary incontinence - Stable. 28. Depression - Resume current treatment. 29. DVT prophylaxis - Lovenox 40 mg sq daily. Total time: Approximately 70 minutes. Charges/Coding Visit Charges OBSV E&M: 30562 Observ/hosp same date L2
[2024-02-07] MEDS: Aspirin 325 MG Tablet PO (19:33)
--- NOTE | 2024-02-07 20:10 | MRI_ITS ---
STUDY: MRI BRAIN WITHOUT CONTRAST REASON FOR EXAM: Male, 83 years old. Evaluate for CVA. TECHNIQUE: Standardized multiplanar fat and water weighted pulse sequences were obtained. COMPARISON: MRI April 26, 2023. CT February 07, 2024 FINDINGS: There is mild cerebral atrophy with widening of the extra-axial spaces and ventricular dilatation. There are a limited number of small white matter hyperintensities, distributed throughout the deep white matter tracts of the cerebral hemispheres, consistent with mild chronic white matter ischemic changes. There is no evidence for recent intracranial ischemia or other cause of cytotoxic edema on diffusion weighted imaging (DWI). Normal T2* images of the brain without demonstrated susceptibility artifact. There is no demonstrated hemosiderin stain. Normal bilateral basal ganglia. Normal thalami. There is no extra-axial fluid accumulation. Normal flow voids within the major intracranial circulation suggesting patency by spin echo criteria. Normal sella turcica, pituitary gland, infundibular stalk, optic chiasm and hypothalamus. Normal tectal plate and pineal gland. Normal midbrain, ely and medulla. Normal cerebellum. Normal basal cisterns. There is mild left mastoid fluid. Normal bilateral internal auditory canals. No demonstrated orbital abnormality, within the constraints of a routine brain study. Normal visualized paranasal sinuses. Normal calvarium and skull base. Normal visualized soft tissue structures. Normal visualized upper cervical spine. MRI/Brain without Contrast IMPRESSION: Involutional changes of the brain, as described above. Electronically Signed: Vamshi Contreras MD at 12:36 EDT ,
--- NOTE | 2024-02-07 20:10 | ECHOD_ITS ---
Reason For Study: TIA/Stroke Procedure This was a 2D Doppler, Color Flow transthoracic echocardiogram. Exam performed portable in patient room. Left Ventricle Normal LV size. The estimated ejection fraction is 55 %. No evidence for diastolic dysfunction. No regional wall motion abnormalities noted. Right Ventricle Normal RV size. Normal systolic function. Atria The left and right atria are normal. No doppler evidence for ASD. Mitral Valve There is no mitral valve stenosis. Trivial mitral valve insufficiency. Tricuspid Valve There is no tricuspid stenosis. Mild tricuspid valve insufficiency. Pulmonary artery systolic pressure is 30 mmHg. Aortic Valve Trisinus/trileaflet aortic valve. There is no aortic stenosis. No aortic valve insufficiency. Pulmonic Valve There is no pulmonic valvular stenosis. No pulmonic valve insufficiency. Great Vessels Normal aortic root. Pericardium/Pleural No pericardial effusion. MMode/2D Measurements & Calculations LVIDd: 4.6 cm IVSd: 1.2 cm Ao root diam: 3.8 cm LVIDs: 3.7 cm LVPWd: 1.3 cm RVDd: 4.6 cm FS: 20.5 % LAV(MOD-bp): 61.9 ml LA A4 area: 21.4 cm2 LA dimension(2D): 3.4 cm LAV(MOD-bp) Indexed: 30.9 ml/m2 LAV(MOD-sp2): 67.3 ml LAV(MOD-sp4): 55.9 ml TAPSE: 2.8 cm RA A4 area: 12.6 cm2 Time Measurements MV dec time: 0.32 sec Doppler Measurements & Calculations MV E max yusef: 78.1 cm/sec Lat Peak E' Yusef: 6.7 cm/sec Med Peak E' Yusef: 6.5 cm/sec MV A max yusef: 111.3 cm/sec E/E' lat: 11.7 E/E' med: 11.9 MV E/A: 0.70 MV dec slope: 245.9 cm/sec2 Ao V2 max: 166.2 cm/sec LV V1 max: 128.2 cm/sec Ao max P.1 mmHg LV V1 max P.6 mmHg Ao V2 mean: 113.8 cm/sec Ao mean P.8 mmHg Ao V2 VTI: 35.5 cm PA V2 max: 70.7 cm/sec TR max yusef: 257.9 cm/sec TR max P.6 mmHg ECHO/Echo Complete Interpretation Summary The estimated ejection fraction is 55 %. No evidence for diastolic dysfunction. Trivial mitral valve insufficiency. Ordering Physician: Manoj Dominguez Referring Physician: Ankur Medina Performed By: Brittney Betts, MENA, RVT
[2024-02-07 21:12] LABS: Hemoglobin A1c 4.9 % (3.8-5.6)
[2024-02-07 21:13] LABS: CPK Total, Creatine Kinase 108 U/L (39-308)
[2024-02-07] MEDS: Cilostazol 50 MG Tablet PO (22:17)
[2024-02-07] MEDS: Mirtazapine 15 MG Tablet 7.5 MG PO (22:17)
[2024-02-07] MEDS: 0.9% Normal Saline (1000mL) 1,000 ML 50 ML IV (22:19)
[2024-02-07] MEDS: tiZANidine HCl 2 MG Tablet PO (22:20)
[2024-02-08] VITALS (8 sets, daily range): BP systolic 92–128; BP diastolic 53–78; PULSE 66–112; RESP 16–18; TEMP 36.1–36.8; O2SAT 93–96; BMI 26.4
[2024-02-08] MEDS: Acetaminophen 325 MG Tablet 650 MG PO ×3 (02:22→22:01)
[2024-02-08] MEDS: Morphine 2 MG/ML Syringe IV (05:59)
[2024-02-08 07:15] LABS: Cholesterol 91 mg/dL (200); High Density Lipoprotein 73 mg/dL; Triglycerides 32 mg/dL; Very Low Density Lipoprotein 6 mg/dL (5-40)
--- NOTE | 2024-02-08 09:02 | NEURO.CONS ---
Assessment and Plan: Neuro Assessment/Plan SARA SAHA is a 83 M with a past medical history of stroke, pAfib being evaluated by Teleneurology for slurried speech x 3 weeks. Also reporting headache for the last week. Could be migraine, although very mild and unclear associated symptoms. Suspect symptoms related either to recrudescence vs migraine. Could consider new stroke although not clearly focal exam. Diagnosis: Recrudescence vs migraine vs new stroke Plan: Agree with MRI Brain, if no new stroke no further work up from neurology perspective. If ongoing headache can treat with tylenol, or if this is not sufficient trial compazine/benadryl and Mag. Agree with PT/OT consults I personally attended this patient and spent a total time of 41 minutes evaluating this patient including clinical assessment, review of chart, medical history imaging, and determining appropriate treatment and workup. HPI Consult Data Date of Consult: 02/08/24 HPI Narrative HPI Narrative: SARA SAHA, is a 83 M with history of prior stroke with residual right sided weakness, CAD, pAfib (not on AC) who presents 3 weeks of slurried speech and 4-5 days of mild headache and generalized weakness. Slurried speech began about 3 weeks ago. He feels it is still slurred. This was one of the symptoms he had with his prior stroke. He is having trouble walking, which began on Saturday. [place] like both feet were glued to the floor, had a lot trouble lifting them to walk. This has happened a few times before, but he is not sure when. He reports it would always improve in a few days. For the last week he reports a bad headache, on the right side of the head. No nausea, no phonophobia. Reports headache feels better when eyes are closed. He is not very active so is unsure if it worsens with activity. He denies any new numbness, vision changes. 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 Does have chronic diplopia which is also stable. He denies recent infectious symptoms, maybe felt some chills but otherwise nothing. 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) Essential hypertension Peripheral arterial occlusive disease History of basal cell cancer Cervical radiculopathy Stenosis of cervical spine with myelopathy Debility Restless leg syndrome Normochromic normocytic anemia Orthostatic hypotension Depression Urine retention Urinary incontinence Left ventricular hypertrophy BPH (benign prostatic hyperplasia) Pressure ulcer Myelopathy Tobacco dependence in remission Renal cyst Osteoarthritis Microscopic hematuria Eczema Anterolisthesis Leg swelling PAD (peripheral artery disease) Hyperlipidemia Atherosclerotic heart disease of [place] coronary artery without angina pectoris Paroxysmal atrial fibrillation Dilated aortic root Home Medications ?Medication ?Instructions ?Recorded ?Last Taken ?Type finasteride 5 mg tablet (Proscar) 5 mg PO DAILY PROSTATES 07/18/17 07/16/23 History cilostazol 50 mg tablet 50 mg PO BID vasodilator 02/02/22 07/16/23 History acetaminophen 500 mg tablet 1,000 mg PO Q6H PRN Pain Score 1-10 07/15/23 07/14/23 History atorvastatin 80 mg tablet 80 mg PO DAILY CHOLESTEROL 07/15/23 07/15/23 History ascorbic acid (vitamin C) 500 mg 500 mg PO 1200 #1 TAB 07/25/23 Unknown Rx tablet ferrous sulfate 325 mg (65 mg 325 mg PO DAILY@1200 #1 TAB 07/25/23 Unknown Rx iron) tablet (FeroSul) ammonium lactate 12 % topical cream 1 applic topical QHS 11/30/23 02/06/24 History miconazole nitrate 2 % topical 1 applic topical BID 11/30/23 Unknown History powder mirtazapine 7.5 mg tablet 7.5 mg PO QHS 11/30/23 Unknown History compression socks, medium #2 ea 12/04/23 Unknown Rx gabapentin 100 mg capsule 100 mg PO BIDCM nerve pain #30 caps 12/04/23 07/16/23 Rx tizanidine 2 mg tablet 2 mg PO QHS PRN muscle spasm #30 12/04/23 05/14/23 Rx tabs Allergy/AdvReac Type Severity Reaction Status Date / Time No Known Allergies Allergy Verified 02/07/24 15:09 Family History Mother CHF (congestive heart failure) Heart disease Hypertension Father COPD (chronic obstructive pulmonary disease) Surgical History S/P debridement History of vascular surgery History of coronary artery stent placement (01/11/16) H/O laminectomy History of knee surgery S/P rotator cuff repair History of pilonidal cyst Social History household members: none housing: house number of children: 5 current occupation: retired current occupational exposures/hazards: No history of recent travel: No Smoking Status: Former smoker how long ago did patient quit smokin alcohol intake: current alcohol intake frequency: holidays/special occasions only details: occasional,holiday substance use type: does not use caffeine: Yes Type: coffee Number of servings: 10 what type of physical activity do you participate in: bicycling frequency: 1-2 times per week duration: 15-30 minutes/day seatbelt use: always do you feel safe at home: Yes Vital Signs Vital Signs Vital Signs: 02/07/24 15:09 02/07/24 15:14 02/07/24 16:09 Temperature 96.9 F L Temperature Source Temporal Pulse Rate 61 Respiratory Rate 18 Respiratory Effort Normal Respiratory Depth Respiratory Pattern Normal Blood Pressure 112/61 Blood Pressure Mean 78 Blood Pressure Source Blood Pressure Position Blood Pressure Location Pulse Ox 95 Oxygen Delivery Method Room Air Room Air Oxygen Flow Rate (L/min) 02/07/24 16:23 02/07/24 16:30 02/07/24 16:45 Temperature Temperature Source Pulse Rate 59 L 73 Respiratory Rate 15 19 H Respiratory Effort Respiratory Depth Respiratory Pattern Blood Pressure 132/60 H Blood Pressure Mean 82 Blood Pressure Source Blood Pressure Position Blood Pressure Location Pulse Ox 95 Oxygen Delivery Method Oxygen Flow Rate (L/min) 02/07/24 17:00 02/07/24 17:13 02/07/24 17:15 Temperature Temperature Source Pulse Rate 72 58 L 63 Respiratory Rate 16 16 12 Respiratory Effort Respiratory Depth Respiratory Pattern Blood Pressure 129/59 H Blood Pressure Mean 79 Blood Pressure Source Blood Pressure Position Blood Pressure Location Pulse Ox 97 98 97 Oxygen Delivery Method Room Air Oxygen Flow Rate (L/min) 02/07/24 19:00 02/07/24 19:26 02/07/24 20:45 Temperature 96.9 F L 96.0 F L Temperature Source Oral Pulse Rate 65 65 62 Respiratory Rate 18 18 17 Respiratory Effort Respiratory Depth Respiratory Pattern Blood Pressure 128/69 H 128/65 H 136/70 H Blood Pressure Mean 88 86 92 Blood Pressure Source Monitor Blood Pressure Position Semi-Fowlers Blood Pressure Location Left Arm Pulse Ox 95 95 96 Oxygen Delivery Method Room Air Room Air Oxygen Flow Rate (L/min) 96 02/07/24 20:45 02/07/24 21:00 02/07/24 22:35 Temperature 96.0 F L Temperature Source Oral Pulse Rate 62 Respiratory Rate 16 Respiratory Effort Normal Non-Labored Respiratory Depth Respiratory Pattern Blood Pressure 136/70 H Blood Pressure Mean 92 Blood Pressure Source Monitor Blood Pressure Position Semi-Fowlers Blood Pressure Location Left Arm Pulse Ox 96 96 Oxygen Delivery Method Room Air Room Air Room Air Oxygen Flow Rate (L/min) 02/07/24 22:54 02/08/24 01:00 02/08/24 03:50 Temperature 96.0 F L 98.2 F Temperature Source Oral Temporal Pulse Rate 62 68 Respiratory Rate 16 17 Respiratory Effort Normal Non-Labored Respiratory Depth Respiratory Pattern Blood Pressure 136/70 H 124/78 H Blood Pressure Mean 92 93 Blood Pressure Source Monitor Blood Pressure Position Semi-Fowlers Blood Pressure Location Right Arm Pulse Ox 96 95 Oxygen Delivery Method Room Air Room Air Room Air Oxygen Flow Rate (L/min) 02/08/24 04:54 02/08/24 05:00 02/08/24 07:20 Temperature 97.8 F 97.9 F Temperature Source Temporal Temporal Pulse Rate 66 67 Respiratory Rate 16 16 Respiratory Effort Normal Non-Labored Respiratory Depth Normal Respiratory Pattern Normal Blood Pressure 115/65 115/65 Blood Pressure Mean 81 81 Blood Pressure Source Monitor Blood Pressure Position Semi-Fowlers Blood Pressure Location Right Arm Pulse Ox 95 95 Oxygen Delivery Method Room Air Room Air Room Air Oxygen Flow Rate (L/min) 02/08/24 07:30 Temperature Temperature Source Pulse Rate Respiratory Rate Respiratory Effort Respiratory Depth Respiratory Pattern Blood Pressure Blood Pressure Mean Blood Pressure Source Blood Pressure Position Blood Pressure Location Pulse Ox 96 Oxygen Delivery Method Room Air Oxygen Flow Rate (L/min) Weight Weight: 81.3 kg Body Mass Index (BMI) 26.4 EEG Results Procedure Details EEG Procedure Details: SARA SAHA is a 83 year old M with a past medical history of , who presents for evaluation of Electroencephalogram on DATE at TIME NIHSS NIHSS Nursing Documentation NIHSS Nursing Documentation: NIH Stroke Scale Start: 02/07/24 15:39 Freq: Status: Discharge Protocol: Activity Type Activity Date Activity User E-sign Co-sign Detail Recorded Client Recorded Date Recorded By Document 02/07/24 15:39 JS desktop 02/07/24 15:39 JS 02/07/24 15:39 NIH Stroke Scale [NIHSS] A score of 0 is normal or asymptomatic . Total possible score is 42. Inpatient: RN or Physician to activate a stroke alert for onset of new stroke symptoms or with NIHSS increase >/= 3 points. Following change in neurological status, NIHSS will be performed per physician order or more frequently PRN. -1a. Level of Consciousness Alert; keenly responsive -1b. LOC Questions Answers BOTH questions correctly. -1c. LOC Commands Performs both tasks correctly . -2. Best Gaze Normal -3. Visual No visual loss -4. Facial Palsy Normal symmetrical movements -5a. Left Arm No drift; arm holds 90 (or 45 ) degrees for full 10 seconds -5b. Right Arm No drift; arm holds 90 (or 45 ) degrees for full 10 seconds -6a. Left Leg No drift; leg holds 30-degree position for full 5 seconds -6b. Right Leg No drift; leg holds 30-degree position for full 5 seconds -7. Limb Ataxia Absent -8. Sensory Normal; no sensory loss -9. Best Language Mild-to- moderate aphasia; -10. Dysarthria Mild-to- moderate dysarthria; -11. Extinction and Inattention No abnormality -Total 2 Query Text:A score of 0 is normal or asymptomatic. Total possible score is 42 . ED: Notify Physician for NIHSS increase by > / = 3 points. Inpatient: RN or Physician to activate a stroke alert for NIHSS increase of > / = 3 points. NIHSS: Ischemic Stroke/TIA Start: 02/07/24 21:24 Text: For PCU Patients: NIH and Neuro Check every 4 Status: Active hours, PRN and with change in RN caregiver. Freq: [id number] Protocol: Activity Type Activity Date Activity User E-sign Co-sign Detail Recorded Client Recorded Date Recorded By Document 02/08/24 05:00 MML desktop 02/08/24 05:13 MML 02/08/24 05:00 -1a. Level of Consciousness Alert; keenly responsive -1b. LOC Questions Answers BOTH questions correctly. -2. Best Gaze Normal -3. Visual No visual loss -4. Facial Palsy Normal symmetrical movements -5a. Left Arm No drift; arm holds 90 (or 45 ) degrees for full 10 seconds -5b. Right Arm No drift; arm holds 90 (or 45 ) degrees for full 10 seconds -6a. Left Leg No drift; leg holds 30-degree position for full 5 seconds -6b. Right Leg No drift; leg holds 30-degree position for full 5 seconds -7. Limb Ataxia Absent -8. Sensory Normal; no sensory loss -9. Best Language No aphasia; normal -10. Dysarthria Normal -11. Extinction and Inattention No abnormality -Total 0 Query Text:A score of 0 is normal or asymptomatic. Total possible score is 42 . ED: Notify Physician for NIHSS increase by > / = 3 points. Inpatient: RN or Physician to activate a stroke alert for NIHSS increase of > / = 3 points. Coma Scale [Assess] -Eye Opening Spontaneous -Motor Obeys Commands -Verbal Oriented [Total] -Coma Scale Total 15 NIHSS 1a. Level of Consciousness: Alert; keenly responsive 1b. LOC Questions: Answers BOTH questions correctly. 1c. LOC Commands: Performs both tasks correctly. 2. Best Gaze: Normal 3. Visual: No visual loss 4. Facial Palsy: Normal symmetrical movements 5a. Left Arm: No drift; arm holds 90 (or 45) degrees for full 10 seconds 5b. Right Arm: No drift; arm holds 90 (or 45) degrees for full 10 seconds 6a. Left Leg: No drift; leg holds 30-degree position for full 5 seconds 6b. Right Leg: No drift; leg holds 30-degree position for full 5 seconds 7. Limb Ataxia: Absent 8. Sensory: Normal; no sensory loss 9. Best Language: No aphasia; normal 10. Dysarthria: [id number] dysarthria; 11. Extinction and Inattention: No abnormality Total: 1 Physical Exam Neuro Neuro Narrative: Speech very mildly slurried, no aphasia. Sensorium / Orientation: awake, alert, oriented to person, oriented to place and oriented to time Cranial Nerves: CN normal except as noted Coordination / Balance: [id number] test normal and [id number] test normal Motor Exam: strength 5/5 throughout Pupil Exam: Normal Pupillary Reactivity/Response: bilateral Lab / Micro Data 02/07/24 15:27 02/07/24 15:27 Labs: Laboratory Results - last 24 hr 02/07/24 15:27: WBC 3.7 L, RBC 3.34 L, Hgb 10.2 L, Hct 31.8 L, MCV 95.2 H, MCH 30.5, MCHC 32.1, RDW Std Deviation 52.2 H, RDW Coeff of [place] 15.1 H, Plt Count 212, MPV 10.6, Immature Gran % (Auto) 0.300, Neut % (Auto) 70.7 H, Lymph % (Auto) 15.4 L, [place] % (Auto) 11.1 H, Eos % (Auto) 2.2, Baso % (Auto) 0.3, Absolute Neuts (auto) 2.6, Absolute Lymphs (auto) 0.57 L, Nucleated RBC % 0, PT 14.4, INR 1.1, APTT 53.0 H, Sodium 139, Potassium 4.3, Chloride 105, Carbon Dioxide 31.0, Anion Gap 3 L, BUN 26 H, Creatinine 0.75, Estim Creat Clear Calc 69.96, Est GFR (MDRD) Af Amer 127, Est GFR (MDRD) Non-Af 105, BUN/Creatinine Ratio 34.6 H, Glucose 104, Hemoglobin A1c 4.9, Calcium 9.1, Total Creatine Kinase 108, TSH 3.920 H 02/07/24 16:18: Urine Color Yellow, Urine Clarity Clear, Urine pH 6.5, Ur Specific [place] 1.010, Urine Protein Negative, Urine Glucose (UA) Normal, Urine Ketones Negative, Urine Occult Blood Negative, Urine Nitrite Negative, Urine Bilirubin Negative, Urine Urobilinogen Normal, Ur Leukocyte Esterase Negative, Urine RBC 0 SEEN, Urine WBC 0 SEEN, Ur Squamous Epith Cells 0 SEEN, Urine Bacteria 0 SEEN, Urine Mucus 0 SEEN 02/08/24 05:50: Triglycerides 32, Cholesterol 91, LDL Cholesterol 12, VLDL Cholesterol 6, HDL Cholesterol 73 Imaging Radiology Impression Head/Neck CTA 02/07/24 15:57 IMPRESSION: Negative CTA carotid and CTA brain. Electronically Signed: Bala Call MD at 17:56 EDT , Chest X-Ray 02/07/24 16:19 IMPRESSION: No radiographic evidence of acute cardiopulmonary disease. Electronically Signed: Bala Call MD at 17:01 EDT , Active Medications Active Medications Active Medications: Current Medications Generic Name Dose Route Start Last Admin Trade Name Freq PRN Reason Stop Dose Admin Acetaminophen 650 mg 02/07/24 21:24 02/08/24 02:22 Acetaminophen 325 Mg Tablet PO 650 mg Q6H PRN PRN Administration Pain Score 1-10 or fever Ascorbic Acid 500 mg 02/08/24 12:00 Ascorbic Acid 500 Mg Tablet PO 1200 [facility] Aspirin 325 mg 02/08/24 08:00 Aspirin E.C. 325 [facility] Cilostazol 50 mg 02/07/24 22:00 02/07/24 22:17 Cilostazol 50 Mg Tablet PO 50 mg BID DARION Administration Enoxaparin Sodium 40 mg 02/08/24 10:00 Enoxaparin 40 Mg/0.4 Ml Syringe SC DAILY [facility] Ferrous Sulfate 325 mg 02/08/24 12:00 Ferrous Sulfate 325 Mg Tablet PO DAILY@1200 [facility] Finasteride 5 mg 02/08/24 10:00 Finasteride 5 Mg Tablet PO DAILY [facility] Gabapentin 100 mg 02/08/24 08:00 Gabapentin [facility] Sodium Chloride 1,000 mls @ 50 mls/hr 02/07/24 20:12 02/07/24 22:19 IV 50 mls/hr .Q20H DARION Administration Sodium Chloride 250 mls @ 15 mls/hr 02/07/24 20:58 IV .[id number] PRN Additional IVPB Infusion Sodium Chloride 250 mls @ 15 mls/hr 02/07/24 20:58 IV .[id number] PRN Saline Flush Lactic Acid 1 applic 02/07/24 22:00 02/07/24 22:18 Ammonium Lactate 225 Gm Bottle TOPICAL Not Given QHS [facility] Mirtazapine 7.5 mg 02/07/24 22:00 02/07/24 22:17 Mirtazapine 15 Mg Tablet PO 7.5 mg QHS DARION Administration Nystatin 1 applic 02/07/24 22:00 02/07/24 22:18 Nystatin Powder 15gm Bottle TOPICAL Not Given BID DARION Pantoprazole Sodium 40 mg 02/08/24 10:00 Pantoprazole Sodium 40 Mg Tablet PO DAILY DARION Sodium Chloride 10 - 40 ml 02/07/24 20:58 0.9% Saline Lock 10 Ml Syringe IV UD PRN SALINE FLUSH Tizanidine HCl 2 mg 02/07/24 21:24 02/07/24 22:20 Tizanidine Hcl 2 Mg Tablet PO 2 mg QHS PRN Administration muscle spasm
[2024-02-08] MEDS: Gabapentin 100 MG Capsule PO ×2 (09:39→16:57)
[2024-02-08] MEDS: Enoxaparin 40 MG/0.4 ML Syringe SC (09:40)
[2024-02-08] MEDS: Pantoprazole Sodium 40 MG Tablet PO (09:40)
[2024-02-08] MEDS: Aspirin E.C. 325 MG Tablet PO (09:41)
[2024-02-08] MEDS: Finasteride 5 MG Tablet PO (09:42)
[2024-02-08] MEDS: Cilostazol 50 MG Tablet PO ×2 (09:42→22:01)
[2024-02-08] MEDS: Ferrous Sulfate 325 MG Tablet PO (11:39)
[2024-02-08] MEDS: Ascorbic Acid 500 MG Tablet PO (11:39)
--- NOTE | 2024-02-08 12:32 | CASEMGMT ---
Therapy notified SW that patient will need to go somewhere for rehab. Patient is currently Medicare observation status therefore, SNF stay would not be covered. Patient was recently at [facility] on the SNF side so depending on when he was discharged from [facility] he may still be in his 30 day window and not require a new 3 midnight stay. SW met with patient and his daughter Arti. SW introduced self and role at [facility]. SW explained therapy's recommendation for rehab/SNF. SW also explained that patient is currently observation status so a SNF stay would not be covered by insurance and patient would have to private pay. SW asked when patient was discharged from [facility]. Patient was discharged from [facility] 7-. Unfortunately patient is outside the 30 day window. Patient asked about [facility] Acute Rehab Unit. SW explained this would be covered by insurance as it is not billed as a jail. SW explained once more results come back patient may be switched to inpatient, but SW cannot guarantee this. SW will follow up with patient and daughter Saturday. Aleksandra BLEDSOE
--- NOTE | 2024-02-08 12:46 | CASEMGMT ---
SW did not complete a PHQ 9 as patient did not have a Stroke. Aleksandra BLEDSOE
--- NOTE | 2024-02-08 13:01 | CASEMGMT ---
SW did ask Nicolasa to review patient for Acute Rehab. Aleksandra [place] JACKERMAN RAKAN
[2024-02-08] MEDS: Ensure Plus High Protein 120 ML LIQUID PO ×3 (14:22→22:04)
--- NOTE | 2024-02-08 15:45 | CASEMGMT ---
HODA CM in to discuss M[facility] form with patient. RN CM explained M[facility] form, patient voiced understanding. Pt signed form and filed in chart. Pt provided with a copy of signed MCGUIRE form. Patient had no further questions or concerns at this time.
[2024-02-08] MEDS: 0.9% Normal Saline (1000mL) 1,000 ML 50 ML IV (16:57)
--- NOTE | 2024-02-08 18:18 | PN.HOSP_ITS ---
Reason for Visit Reason for Visit: Diagnoses Paroxysmal atrial fibrillation (02/07/24) Slurred speech (02/07/24) Headache, unspecified (02/07/24) Weakness (02/07/24) Personal history of transient ischemic attack (TIA), and cerebral infarction without residual deficits (02/07/24) Subjective Subjective Pt feeling generally weak today, got morphine in the ED and pt reports being very tired since that time and just generally weak Objective Data Objective Data Vital Signs: Vital Signs Temp Pulse Resp BP Pulse Ox O2 Del Method O2 Flow Rate 98.1 F 112 H 18 92/53 L 94 Room Air 96 02/08/24 14:20 02/08/24 15:00 02/08/24 14:20 02/08/24 14:20 02/08/24 14:20 02/08/24 14:49 02/07/24 20:45 Oxygen Flow Rate (L/min) 96 Oxygen Delivery Method Room Air Weight: 81.3 kg Body Mass Index (BMI) 26.4 Intake & Output: Intake and Output for Last 24 Hours 02/06/24 02/07/24 02/08/24 23:59 23:59 23:59 Intake Total 1591.67 / 1591.67 Output Total 800 / 800 Balance 791.67 / 791.67 Lab / Micro Data 02/07/24 15:27 02/07/24 15:27 Labs: Laboratory Results - last 24 hr 02/07/24 15:27: Hemoglobin A1c 4.9, Total Creatine Kinase 108, TSH 3.920 H 02/08/24 05:50: Triglycerides 32, Cholesterol 91, LDL Cholesterol 12, VLDL Cholesterol 6, HDL Cholesterol 73 Radiography Diagnostic Testing: Radiology Impression Brain MRI 02/07/24 20:10 IMPRESSION: Involutional changes of the brain, as described above. Electronically Signed: Vamshi Contreras MD at 12:36 EDT , Echocardiogram 02/07/24 20:10 Interpretation Summary The estimated ejection fraction is 55 %. No evidence for diastolic dysfunction. Trivial mitral valve insufficiency. Ordering Physician: Manoj Dominguez Referring Physician: Ankur Medina Performed By: Brittney Betts, MENA, RVT Physical Exam Narrative General: Alert, oriented, tired but not acutely distressed HEENT: Atraumatic, normocephalic Eyes: Anicteric, normal conjunctiva, extraocular movements grossly intact Neck: Supple Respiratory: Clear to auscultation bilaterally, normal respiratory effort Cardiovascular: Regular rate GI: Soft, nontender, nondistended Extremities: No edema Musculoskeletal: Moving all extremities in bed, bilateral upper extremities without significant asymmetry and strength, cranial nerves II through XII appear intact Neuro: No overt focal neurological deficits Skin: No rashes appreciated Psych: Cooperative Assessment & Plan Assessment/Plan (1) Headache: QUALIFIERS: Headache type: unspecified Headache chronicity pattern: acute headache Intractability: not intractable Qualified Code(s): R 51.9 - Headache, unspecified (2) Slurred speech: (3) Generalized weakness: (4) Paroxysmal atrial fibrillation: (5) History of CVA (cerebrovascular accident): PLAN: Plan # Generalized weakness and slurred speech -There is concern for stroke on admission, echo and MRI within normal limits, CTA with no critical stenosis -Unclear reason for patient's generalized weakness, UA normal, CK normal -Labs not overly revealing and vitally overall has been stable -PT/OT -Will reassess in the a.m. after morphine has worn off as patient reports he had been tired since that time -TSH very slightly elevated, check free T4 -Check B12 and vitamin D - if all is negative may need to consider changing tizanidine and/or gabapentin however these are on for spasticity do not want to hold them unnecessarily # History of paroxysmal atrial fibrillation -Not on anticoagulation due to falls, patient in normal sinus rhythm -Not presently on rate control -Being monitored on telemetry # History of coronary artery disease and stent -His atorvastatin was held on presentation due to concerns that this may have been contributing to his weakness -May be able to reintroduce tomorrow -Continue aspirin #Chronic BPH with obstruction -Continue home medications #DVT ppx: Lovenox subcu Dayanara Rider MD Charges/Coding Visit Charges Inpatient E&M: 77818 Subs Hosp L1
[2024-02-08] MEDS: Ammonium Lactate 225 gm Bottle 1 APPLIC TOPICAL (21:56)
[2024-02-08] MEDS: tiZANidine HCl 2 MG Tablet PO (22:01)
[2024-02-08] MEDS: Mirtazapine 15 MG Tablet 7.5 MG PO (22:02)
[2024-02-09] VITALS (7 sets, daily range): BP systolic 98–122; BP diastolic 52–60; PULSE 55–75; RESP 16–18; TEMP 36.3–36.7; O2SAT 95–98; BMI 26.4
[2024-02-09 05:17] LABS: Absolute Lymphocyte Count 0.68 X10^3/uL (0.83-4.51); Absolute Neutrophil Count 4.8 X10^3/uL (2.0-7.7); Basophil# 0.01 X10^3/uL; Basophil% 0.2 % (0-1); Eosinophil# 0.17 X10^3/uL; Eosinophils% 2.7 % (0-5); Hematocrit 29.2 % (40-54); Hemoglobin 9.5 g/dL (13.0-16.5); Lymphocyte # 0.68 X10^3/ul (0.83-4.51); Lymphocyte % 10.7 % (19-41); Mean Corp Hgb Conc 32.5 g/dL (32-36); Mean Corpuscular Hgb 31.1 pg (27.0-32.0); Mean Corpuscular Volume 95.7 fL (80-94); Mean Platelet Vol. 10.6 fl (6.2-12.0); Monocyte# 0.67 X10^3/uL; Monocyte% 10.6 % (0-10); NRBC Flagged by Analyzer 0 % (0-5); Neutrophil # 4.78 X10^3/uL (2.7-7.7); Neutrophil % 75.3 % (47-70); Platelet Count 200 K/mm3 (150-450); RBC Distribution Width CV 15.2 % (11.6-14.6); RBC Distribution Width SD 52.4 fl (35.1-43.9); Red Blood Count 3.05 M/mm3 (4.6-6.2); White Blood Count 6.3 K/mm3 (4.4-11.0)
[2024-02-09 05:47] LABS: ALB/GLOB Ratio 0.7 RATIO (0.9-2.4); AST(SGOT) 28 U/L (15-37); Alanine Aminotransfer ALT/SGPT 29 U/L (16-61); Albumin, Serum 2.7 g/dL (3.2-5.0); Alkaline Phosphatase 136 U/L (45-117); Anion Gap 6 (5-15); BUN 21 mg/dL (7-18); BUN/Creat Ratio 34.3 RATIO (10-20); Chloride 105 mmol/L (98-107); Creatinine, Serum 0.61 mg/dL (0.70-1.30); EST Glomerular Filtration Rate 134 mL/min (>60); Est Glom Filt Rate - Afr Amer 162 mL/min (>60); Estimated Creatinine Clearance 69.96 ml/min; Globulin 4.1 g/dL (2.2-4.2); Glucose 81 mg/dL (74-106); Magnesium 2.1 mg/dL (1.6-2.6); Phosphorus 3.4 mg/dL (2.5-4.9); Potassium 4.2 mmol/L (3.5-5.1); Protein, Total 6.8 g/dL (6.4-8.2); Sodium Level 140 mmol/L (136-145)
[2024-02-09] MEDS: Gabapentin 100 MG Capsule PO ×2 (07:42→16:19)
[2024-02-09] MEDS: Enoxaparin 40 MG/0.4 ML Syringe SC (07:42)
[2024-02-09] MEDS: Cilostazol 50 MG Tablet PO ×2 (07:43→20:24)
[2024-02-09] MEDS: Pantoprazole Sodium 40 MG Tablet PO (07:43)
[2024-02-09] MEDS: Finasteride 5 MG Tablet PO (07:43)
[2024-02-09] MEDS: Aspirin E.C. 325 MG Tablet PO (07:43)
[2024-02-09] MEDS: Nystatin Powder 15gm Bottle 1 APPLIC TOPICAL ×2 (07:44→20:26)
[2024-02-09] MEDS: Acetaminophen 325 MG Tablet 650 MG PO ×2 (07:46→20:27)
[2024-02-09] MEDS: Ensure Plus High Protein 120 ML LIQUID PO ×4 (07:46→20:24)
[2024-02-09 08:52] LABS: Ferritin 140 ng/mL (26-388); Iron 31 ug/dL (65-175); Iron Binding Capacity,Total 266 ug/dL (250-450); PERCENT IRON SATURATION 11.7 % (15.0-55.0)
[2024-02-09] MEDS: Ascorbic Acid 500 MG Tablet PO (11:31)
[2024-02-09] MEDS: Ferrous Sulfate 325 MG Tablet PO (11:31)
--- NOTE | 2024-02-09 12:46 | PN.HOSP_ITS ---
Reason for Visit Reason for Visit: Diagnoses Paroxysmal atrial fibrillation (02/07/24) Slurred speech (02/07/24) Headache, unspecified (02/07/24) Weakness (02/07/24) Personal history of transient ischemic attack (TIA), and cerebral infarction without residual deficits (02/07/24) Subjective Subjective Patient feeling a little bit better and stronger today but still overall weak but has no focal complaints Objective Data Objective Data Vital Signs: Vital Signs Temp Pulse Resp BP Pulse Ox O2 Del Method O2 Flow Rate 98.1 F 55 L 18 98/55 L 98 Room Air 96 02/09/24 10:40 02/09/24 10:40 02/09/24 10:40 02/09/24 10:40 02/09/24 10:40 02/09/24 10:40 02/07/24 20:45 Oxygen Flow Rate (L/min) 96 Oxygen Delivery Method Room Air Weight: 81.3 kg Body Mass Index (BMI) 26.4 Intake & Output: Intake and Output for Last 24 Hours 02/07/24 02/08/24 02/09/24 23:59 23:59 23:59 Intake Total 1591.67 / 1591.67 1349.17 / 1349.17 Output Total 1500 / 1500 480 / 480 Balance 91.67 / 91.67 869.17 / 869.17 Lab / Micro Data 02/09/24 04:43 02/09/24 04:43 Labs: Laboratory Results - last 24 hr 02/09/24 04:43: WBC 6.3, RBC 3.05 L, Hgb 9.5 L, Hct 29.2 L, MCV 95.7 H, MCH 31.1, MCHC 32.5, RDW Std Deviation 52.4 H, RDW Coeff of [place] 15.2 H, Plt Count 200, MPV 10.6, Immature Gran % (Auto) 0.500, Neut % (Auto) 75.3 H, Lymph % (Auto) 10.7 L, [place] % (Auto) 10.6 H, Eos % (Auto) 2.7, Baso % (Auto) 0.2, Absolute Neuts (auto) 4.8, Absolute Lymphs (auto) 0.68 L, Nucleated RBC % 0, Sodium 140, Potassium 4.2, Chloride 105, Carbon Dioxide 29.0, Anion Gap 6, BUN 21 H, Creatinine 0.61 L, Estim Creat Clear Calc 69.96, Est GFR (MDRD) Af Amer 162, Est GFR (MDRD) Non-Af 134, BUN/Creatinine Ratio 34.3 H, Glucose 81, Calcium 9.0, Phosphorus 3.4, Magnesium 2.1, Iron 31 L, TIBC 266, Iron Saturation 11.7 L, Ferritin 140, Total Bilirubin 0.60, AST 28, ALT 29, Alkaline Phosphatase 136 H, Total Protein 6.8, Albumin 2.7 L, Globulin 4.1, Albumin/Globulin Ratio 0.7 L, Free T4 1.00 Radiography Diagnostic Testing: Radiology Impression Echocardiogram 02/07/24 20:10 Interpretation Summary The estimated ejection fraction is 55 %. No evidence for diastolic dysfunction. Trivial mitral valve insufficiency. Ordering Physician: Manoj Dominguez Referring Physician: Ankur Medina Performed By: Brittney Betts RDCS, RVT Physical Exam Narrative General: Alert, oriented, tired but not acutely distressed HEENT: Atraumatic, normocephalic Eyes: Anicteric, normal conjunctiva, extraocular movements grossly intact Neck: Supple Respiratory: Clear to auscultation bilaterally, normal respiratory effort Cardiovascular: Regular rate GI: Soft, nontender, nondistended Extremities: No edema Musculoskeletal: Moving all extremities in bed Neuro: No overt focal neurological deficits Skin: Lower extremity wrapped, has chronic Achilles wound Psych: Cooperative Assessment & Plan Assessment/Plan (1) Headache: QUALIFIERS: Headache type: unspecified Headache chronicity pattern: acute headache Intractability: not intractable Qualified Code(s): R 51.9 - Headache, unspecified (2) Slurred speech: (3) Generalized weakness: (4) Paroxysmal atrial fibrillation: (5) History of CVA (cerebrovascular accident): PLAN: Plan # Generalized weakness and slurred speech -There is concern for stroke on admission, echo and MRI within normal limits, CTA with no critical stenosis -Unclear reason for patient's generalized weakness, UA normal, CK normal -Labs not overly revealing and vitally overall has been stable -PT/OT -Will reassess in the a.m. after morphine has worn off as patient reports he had been tired since that time -TSH very slightly elevated, check free T4 -Check B12 and vitamin D - if all is negative may need to consider changing tizanidine and/or gabapentin however these are on for spasticity do not want to hold them unnecessarily -02/08: Query if patient's age and comorbidities in addition to the gabapentin and tizanidine may contribute to patient's overall weakness as well as a component of relative volume depletion. Patient afebrile, does not have a leukocytosis, vitally stable, chronically anemic, iron is on the low end so we will give IV iron. B12 and vitamin D pending, free T4 within normal limits, UA on presentation unremarkable. Does seem somewhat better today and has been hydrated, patient to work with PT/OT and will likely need rehab prior to going home if possible. His atorvastatin has been held due to concerns this could be contributing to weakness, may consider starting back at lower dose or switching to pravastatin pending patient progress Chronic medical problems: # History of paroxysmal atrial fibrillation -Not on anticoagulation due to falls, patient in normal sinus rhythm -Not presently on rate control -Being monitored on telemetry # History of coronary artery disease and stent -His atorvastatin was held on presentation due to concerns that this may have been contributing to his weakness -May be able to reintroduce tomorrow -Continue aspirin #Chronic BPH with obstruction -Continue home medications #DVT ppx: Lovenox subcu Dayanara Rider MD Charges/Coding Visit Charges Inpatient E&M: 95905 Subs Hosp L1
[2024-02-09] MEDS: 0.9% Saline Lock 10 ML Syringe IV ×2 (13:29→20:27)
[2024-02-09] MEDS: Sodium Ferric Gluconat/Sucrose 250 MG in 0.9% Normal Saline (250mL Bag) 250 ML 135 MG IV (13:29)
[2024-02-09] MEDS: Mirtazapine 15 MG Tablet 7.5 MG PO (20:24)
[2024-02-09] MEDS: Ammonium Lactate 225 gm Bottle 1 APPLIC TOPICAL (20:25)
[2024-02-09] MEDS: tiZANidine HCl 2 MG Tablet PO (20:28)
[2024-02-10 02:00] VITALS: BP 105/59; PULSE 60; RESP 16; TEMP 36.3; O2SAT 93
[2024-02-10 04:00] VITALS: PULSE 59
[2024-02-10] MEDS: Acetaminophen 325 MG Tablet 650 MG PO ×2 (04:12→22:11)
[2024-02-10 04:31] VITALS: PULSE 59; BMI 26.4
[2024-02-10 06:13] LABS: Absolute Lymphocyte Count 0.68 X10^3/uL (0.83-4.51); Absolute Neutrophil Count 2.8 X10^3/uL (2.0-7.7); Basophil# 0.01 X10^3/uL; Basophil% 0.2 % (0-1); Eosinophil# 0.14 X10^3/uL; Eosinophils% 3.2 % (0-5); Hemoglobin 9.1 g/dL (13.0-16.5); Lymphocyte # 0.68 X10^3/ul (0.83-4.51); Lymphocyte % 15.6 % (19-41); Mean Corp Hgb Conc 32.5 g/dL (32-36); Mean Corpuscular Hgb 31.2 pg (27.0-32.0); Mean Corpuscular Volume 95.9 fL (80-94); Mean Platelet Vol. 10.7 fl (6.2-12.0); Monocyte# 0.67 X10^3/uL; Monocyte% 15.4 % (0-10); NRBC Flagged by Analyzer 0 % (0-5); Neutrophil # 2.84 X10^3/uL (2.7-7.7); Neutrophil % 65.1 % (47-70); Platelet Count 191 K/mm3 (150-450); RBC Distribution Width CV 15.1 % (11.6-14.6); RBC Distribution Width SD 52.1 fl (35.1-43.9); Red Blood Count 2.92 M/mm3 (4.6-6.2); White Blood Count 4.4 K/mm3 (4.4-11.0)
[2024-02-10 06:37] LABS: ALB/GLOB Ratio 0.7 RATIO (0.9-2.4); AST(SGOT) 26 U/L (15-37); Alanine Aminotransfer ALT/SGPT 25 U/L (16-61); Albumin, Serum 2.7 g/dL (3.2-5.0); Alkaline Phosphatase 128 U/L (45-117); Anion Gap 4 (5-15); BUN 27 mg/dL (7-18); BUN/Creat Ratio 43.1 RATIO (10-20); Calcium,Total 8.9 mg/dL (8.5-10.1); Chloride 105 mmol/L (98-107); Creatinine, Serum 0.63 mg/dL (0.70-1.30); EST Glomerular Filtration Rate 130 mL/min (>60); Est Glom Filt Rate - Afr Amer 157 mL/min (>60); Estimated Creatinine Clearance 69.96 ml/min; Globulin 3.8 g/dL (2.2-4.2); Glucose 75 mg/dL (74-106); Protein, Total 6.5 g/dL (6.4-8.2); Sodium Level 138 mmol/L (136-145)
[2024-02-10 08:00] VITALS: BP 145/79; PULSE 62; RESP 16; TEMP 36.6; O2SAT 97
[2024-02-10] MEDS: Pantoprazole Sodium 40 MG Tablet PO (08:13)
[2024-02-10] MEDS: Gabapentin 100 MG Capsule PO ×2 (08:13→17:00)
[2024-02-10] MEDS: Finasteride 5 MG Tablet PO (08:14)
[2024-02-10] MEDS: Ensure Plus High Protein 120 ML LIQUID PO ×4 (08:14→21:59)
[2024-02-10] MEDS: Aspirin E.C. 325 MG Tablet PO (08:14)
[2024-02-10 08:23] LABS: Vitamin B12 1229 pg/mL (211-911); Vitamin D,25 Hydroxy 27.2 ng/mL
--- NOTE | 2024-02-10 09:59 | CASEMGMT ---
Patient is now inpatient. TCU accepted patient. KRISTAL spoke with patient and his daughter Arti. Patient expressed he would like to go to [facility] for rehab. KRISTAL let patient know SW will work on a referral. KRISTAL let Nicolasa in TCU know and asked Violeta d/yoselyn estate planning attorney to send a referral to [facility]. Aleksandra Richmond ENGLISH DRAWER RAKAN
--- NOTE | 2024-02-10 10:22 | CASEMGMT ---
Addendum entered by Violeta Dangelo 02/10/24 11:19: [facility] has accepted patient. SW updated. Violeta Dangelo DC Planning Asst. Original Note: Discharge Planning Referral sent to [facility] via [facility]. Violeta Dangelo DC Planning Asst.
[2024-02-10] MEDS: Nystatin Powder 15gm Bottle 1 APPLIC TOPICAL ×2 (10:51→22:00)
[2024-02-10] MEDS: Enoxaparin 40 MG/0.4 ML Syringe SC (10:51)
[2024-02-10] MEDS: Cilostazol 50 MG Tablet PO ×2 (10:52→22:02)
--- NOTE | 2024-02-10 11:39 | CASEMGMT ---
Addendum entered by Aleksandra Richmond 02/10/24 12:29: SW notified patient and his daughter that [facility] can take patient. Plan: d/c to [facility] under skilled level of care when medically ready. Aleksandra BLEDSOE Original Note: [facility] is able to take patient. KRISTAL will notify patient. Aleksandra BLEDSOE
--- NOTE | 2024-02-10 11:45 | PCM.PN.HOSP ---
Reason for Visit Reason for Visit: Diagnoses Paroxysmal atrial fibrillation (02/09/24) Slurred speech (02/09/24) Headache, unspecified (02/09/24) Weakness (02/09/24) Personal history of transient ischemic attack (TIA), and cerebral infarction without residual deficits (02/09/24) Subjective Subjective Patient feeling similar today. Still somewhat tired, no other new or acute complaints but still very weak Objective Data Objective Data Vital Signs: Vital Signs Temp Pulse Resp BP Pulse Ox O2 Del Method O2 Flow Rate 97.9 F 62 16 145/79 H 97 Room Air 96 02/10/24 08:00 02/10/24 08:00 02/10/24 08:00 02/10/24 08:00 02/10/24 08:00 02/10/24 10:00 02/07/24 20:45 Oxygen Flow Rate (L/min) 96 Oxygen Delivery Method Room Air Weight: 81.3 kg Body Mass Index (BMI) 26.4 Intake & Output: Intake and Output for Last 24 Hours 02/08/24 02/09/24 02/10/24 23:59 23:59 23:59 Intake Total 1591.67 / 1591.67 1619.17 / 1979.17 360 / 360 Output Total 1500 / 1500 980 / 980 550 / 550 Balance 91.67 / 91.67 639.17 / 999.17 -190 / -190 Lab / Micro Data 02/10/24 05:55 02/10/24 05:55 Labs: Laboratory Results - last 24 hr 02/09/24 04:43: Vitamin B12 1229 H, Vitamin D 25-Hydroxy 27.2 02/10/24 05:55: WBC 4.4, RBC 2.92 L, Hgb 9.1 L, Hct 28.0 L, MCV 95.9 H, MCH 31.2, MCHC 32.5, RDW Std Deviation 52.1 H, RDW Coeff of [place] 15.1 H, Plt Count 191, MPV 10.7, Immature Gran % (Auto) 0.500, Neut % (Auto) 65.1, Lymph % (Auto) 15.6 L, [place] % (Auto) 15.4 H, Eos % (Auto) 3.2, Baso % (Auto) 0.2, Absolute Neuts (auto) 2.8, Absolute Lymphs (auto) 0.68 L, Nucleated RBC % 0, Sodium 138, Potassium 4.0, Chloride 105, Carbon Dioxide 29.0, Anion Gap 4 L, BUN 27 H, Creatinine 0.63 L, Estim Creat Clear Calc 69.96, Est GFR (MDRD) Af Amer 157, Est GFR (MDRD) Non-Af 130, BUN/Creatinine Ratio 43.1 H, Glucose 75, Calcium 8.9, Total Bilirubin 0.60, AST 26, ALT 25, Alkaline Phosphatase 128 H, Total Protein 6.5, Albumin 2.7 L, Globulin 3.8, Albumin/Globulin Ratio 0.7 L Physical Exam Narrative General: Alert, oriented, tired but not acutely distressed HEENT: Atraumatic, normocephalic Eyes: Anicteric, normal conjunctiva, extraocular movements grossly intact Neck: Supple Respiratory: Clear to auscultation bilaterally, normal respiratory effort Cardiovascular: Regular rate GI: Soft, nontender, nondistended Extremities: No edema Musculoskeletal: Moving all extremities in bed Neuro: No overt focal neurological deficits Skin: Lower extremity wrapped, has chronic Achilles wound Psych: Cooperative Assessment & Plan Assessment/Plan (1) Headache: QUALIFIERS: Headache chronicity pattern: acute headache Headache type: unspecified Intractability: not intractable Qualified Code(s): R51.9 - Headache, unspecified (2) Slurred speech: (3) Generalized weakness: (4) Paroxysmal atrial fibrillation: (5) History of CVA (cerebrovascular accident): PLAN: Plan # Generalized weakness and slurred speech -There is concern for stroke on admission, echo and MRI within normal limits, CTA with no critical stenosis -Unclear reason for patient's generalized weakness, UA normal, CK normal -Labs not overly revealing and vitally overall has been stable -PT/OT -Will reassess in the a.m. after morphine has worn off as patient reports he had been tired since that time -TSH very slightly elevated, check free T4 -Check B12 and vitamin D - if all is negative may need to consider changing tizanidine and/or gabapentin however these are on for spasticity do not want to hold them unnecessarily -02/08: Query if patient's age and comorbidities in addition to the gabapentin and tizanidine may contribute to patient's overall weakness as well as a component of relative volume depletion. Patient afebrile, does not have a leukocytosis, vitally stable, chronically anemic, iron is on the low end so we will give IV iron. B12 and vitamin D pending, free T4 within normal limits, UA on presentation unremarkable. Does seem somewhat better today and has been hydrated, patient to work with PT/OT and will likely need rehab prior to going home if possible. His atorvastatin has been held due to concerns this could be contributing to weakness, may consider starting back at lower dose or switching to pravastatin pending patient progress -02/09: Patient's daughter reports outpatient physician was worried for PMR, ESR 28 and CRP 45.7, difficult to tell in total clinical picture of this could be due to chronic wounds and other comorbidities are patient does have PMR. If FOBT negative/GI bleed ruled out will discuss with patient and if patient has morning stiffness will consider trial of prednisone # Anemia -Hemoglobin 9.1 today, on admission 10.2 and is down trended -Baseline appears around 10 so was somewhat lower than typical -Given weakness of unclear etiology will check FOBT as lowering hemoglobin and iron deficiency with anemia could be secondary to GI bleed Chronic medical problems: # History of paroxysmal atrial fibrillation -Not on anticoagulation due to falls, patient in normal sinus rhythm -Not presently on rate control -Being monitored on telemetry # History of coronary artery disease and stent -His atorvastatin was held on presentation due to concerns that this may have been contributing to his weakness -May be able to reintroduce tomorrow -Continue aspirin #Chronic BPH with obstruction -Continue home medications #DVT ppx: Lovenox subcu Dayanara Rider MD Time spent in the patient's overall evaluation,decision-making process, review of diagnostic data, adjustment of management, discussion with other providers, nursing nursing and ancillary staff involved in patient's care documentation, 38 minutes Charges/Coding Visit Charges Inpatient E&M: 12369 Subs Hosp L2
[2024-02-10 12:14] LABS: Erythrocyte Sedimentation Rate 28 mm/hr (0-20)
[2024-02-10] MEDS: Ferrous Sulfate 325 MG Tablet PO (12:29)
[2024-02-10] MEDS: Ascorbic Acid 500 MG Tablet PO (12:29)
--- NOTE | 2024-02-10 15:16 | WOUNDNOTE ---
wound photo: left Achilles area
--- NOTE | 2024-02-10 15:31 | CHAPLAIN ---
Type of Pastoral Visit _x__ Initial Visit ___ Follow-up Visit ___ On-call Visit ___ General Patient Visit ___ Spiritual Assessment ___ Family Conference ___ Bereavement ___ Rapid Response ___ Code Blue ___ Other (describe below) Pastoral Care Referral From _x__ Patient ___ Family ___ Nurse ___ Physician ___ Vocational Teacher ___ Gear Lapping Machine Operator ___ Other (describe below) Sacrament/Intervention ___ Active listening ___ Anointing ___ Adventism ___ Bereavement ___ Communion ___ Pooja exploration ___ ___ Life review ___ Prayer ___ Reconciliation ___ Sacrament of Sick _x__ Supportive presence ___ Wedding ___ Other (describe below) Pastoral Comments 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
[2024-02-10 16:00] VITALS: BP 120/70; PULSE 60; RESP 18; TEMP 36.6; O2SAT 97
[2024-02-10 21:54] VITALS: BP 137/75; PULSE 60; RESP 18; TEMP 36; O2SAT 96
[2024-02-10] MEDS: Pantoprazole Sodium 40 MG in 0.9% Normal Saline (100mL MB+) 100 ML 330 MG IV (22:00)
[2024-02-10] MEDS: Mirtazapine 15 MG Tablet 7.5 MG PO (22:01)
[2024-02-10] MEDS: Ammonium Lactate 225 gm Bottle 1 APPLIC TOPICAL (22:02)
[2024-02-11] VITALS (15 sets, daily range): BP systolic 54–135; BP diastolic 37–70; PULSE 51–74; RESP 16–18; TEMP 36.1–36.7; O2SAT 96–100; BMI 26.4
--- NOTE | 2024-02-11 05:55 | EKG12_ITS ---
Test Reason : AM EKG Blood Pressure : / mmHG Vent. Rate : 054 BPM Atrial Rate : 054 BPM P-R Int : 186 ms QRS Dur : 128 ms QT Int : 452 ms P-R-T Axes : 062 -35 095 degrees QTc Int : 428 ms Sinus bradycardia Left axis deviation Left ventricular hypertrophy with QRS widening and repolarization abnormality ( R in aVL ) Cannot rule out Anteroseptal infarct , age undetermined Abnormal ECG When compared with ECG of 07-FEB-2024 16:06, Minimal criteria for Anteroseptal infarct are now Present Confirmed by CHU HARTMANN, ALANNAH ([id number]), supervising film or videotape editor JUSTINE WILSON ([id number]) on 02/14/2024 7:23:58 AM Referred By: Confirmed By:J LUIS SAGE MD
[2024-02-11 07:10] LABS: Absolute Lymphocyte Count 0.75 X10^3/uL (0.83-4.51); Absolute Neutrophil Count 2.1 X10^3/uL (2.0-7.7); Basophil# 0.01 X10^3/uL; Basophil% 0.3 % (0-1); Eosinophil# 0.14 X10^3/uL; Eosinophils% 3.9 % (0-5); Hematocrit 31.6 % (40-54); Hemoglobin 10.1 g/dL (13.0-16.5); Lymphocyte # 0.75 X10^3/ul (0.83-4.51); Lymphocyte % 20.8 % (19-41); Mean Corpuscular Hgb 30.9 pg (27.0-32.0); Mean Corpuscular Volume 96.6 fL (80-94); Mean Platelet Vol. 11.2 fl (6.2-12.0); Monocyte# 0.56 X10^3/uL; Monocyte% 15.6 % (0-10); NRBC Flagged by Analyzer 0 % (0-5); Neutrophil # 2.09 X10^3/uL (2.7-7.7); Platelet Count 194 K/mm3 (150-450); RBC Distribution Width CV 15.2 % (11.6-14.6); RBC Distribution Width SD 53.8 fl (35.1-43.9); Red Blood Count 3.27 M/mm3 (4.6-6.2); White Blood Count 3.6 K/mm3 (4.4-11.0)
[2024-02-11 07:51] LABS: ALB/GLOB Ratio 0.7 RATIO (0.9-2.4); AST(SGOT) 28 U/L (15-37); Alanine Aminotransfer ALT/SGPT 31 U/L (16-61); Albumin, Serum 2.8 g/dL (3.2-5.0); Alkaline Phosphatase 140 U/L (45-117); Anion Gap 4 (5-15); BUN 30 mg/dL (7-18); Calcium,Total 9.5 mg/dL (8.5-10.1); Chloride 107 mmol/L (98-107); EST Glomerular Filtration Rate 115 mL/min (>60); Est Glom Filt Rate - Afr Amer 139 mL/min (>60); Estimated Creatinine Clearance 69.96 ml/min; Globulin 4.2 g/dL (2.2-4.2); Glucose 77 mg/dL (74-106); Potassium 4.2 mmol/L (3.5-5.1); Sodium Level 139 mmol/L (136-145)
[2024-02-11] MEDS: Gabapentin 100 MG Capsule PO ×2 (08:27→18:09)
[2024-02-11] MEDS: Pantoprazole Sodium 40 MG in 0.9% Normal Saline (100mL MB+) 100 ML 330 MG IV ×2 (08:28→20:28)
[2024-02-11] MEDS: Nystatin Powder 15gm Bottle 1 APPLIC TOPICAL ×2 (08:28→20:20)
[2024-02-11] MEDS: Finasteride 5 MG Tablet PO (08:28)
[2024-02-11] MEDS: 0.9% Saline Lock 10 ML Syringe IV (08:28)
--- NOTE | 2024-02-11 10:10 | PN.HOSP_ITS ---
Reason for Visit Reason for Visit: Diagnoses Anemia, unspecified (02/09/24) Paroxysmal atrial fibrillation (02/09/24) Slurred speech (02/09/24) Headache, unspecified (02/09/24) Weakness (02/09/24) Personal history of transient ischemic attack (TIA), and cerebral infarction without residual deficits (02/09/24) Subjective Subjective Patient feeling somewhat tired again this morning however still overall better than presentation. Slept better last night Objective Data Objective Data Vital Signs: Vital Signs Temp Pulse Resp BP Pulse Ox O2 Del Method O2 Flow Rate 98 F 60 18 54/39 L 98 Room Air 96 02/11/24 16:56 02/11/24 16:56 02/11/24 16:56 02/11/24 16:56 02/11/24 16:56 02/11/24 16:56 02/11/24 16:08 Oxygen Flow Rate (L/min) 96 Oxygen Delivery Method Room Air Weight: 81.3 kg Body Mass Index (BMI) 26.4 Intake & Output: Intake and Output for Last 24 Hours 02/09/24 02/10/24 02/11/24 23:59 23:59 23:59 Intake Total 1619.17 / 1979.17 470 / 470 140 / 140 Output Total 980 / 980 750 / 750 800 / 800 Balance 639.17 / 999.17 -280 / -280 -660 / -660 Lab / Micro Data 02/11/24 05:55 02/11/24 05:55 Labs: Laboratory Results - last 24 hr 02/11/24 05:55: WBC 3.6 L, RBC 3.27 L, Hgb 10.1 L, Hct 31.6 L, MCV 96.6 H, MCH 30.9, MCHC 32.0, RDW Std Deviation 53.8 H, RDW Coeff of [place] 15.2 H, Plt Count 194, MPV 11.2, Immature Gran % (Auto) 1.400 H, Neut % (Auto) 58.0, Lymph % (Auto) 20.8, [place] % (Auto) 15.6 H, Eos % (Auto) 3.9, Baso % (Auto) 0.3, Absolute Neuts (auto) 2.1, Absolute Lymphs (auto) 0.75 L, Nucleated RBC % 0, Sodium 139, Potassium 4.2, Chloride 107, Carbon Dioxide 28.0, Anion Gap 4 L, BUN 30 H, Creatinine 0.70, Estim Creat Clear Calc 69.96, Est GFR (MDRD) Af Amer 139, Est GFR (MDRD) Non-Af 115, BUN/Creatinine Ratio 43.0 H, Glucose 77, Calcium 9.5, Total Bilirubin 0.50, AST 28, ALT 31, Alkaline Phosphatase 140 H, Total Protein 7.0, Albumin 2.8 L, Globulin 4.2, Albumin/Globulin Ratio 0.7 L Micro: Microbiology 02/10/24 17:05 Stool Stool Occult Blood (JENNIFER) - Final Occult Blood Positive Radiography Diagnostic Testing: Radiology Impression Venous Doppler Study 02/07/24 15:59 Interpretation Summary Deep veins of the right lower extremity are patent and compressible segmentally. There is no evidence of right lower extremity deep vein thrombosis. Valvular competence appears intact within the proximal deep venous system on the right . The right great saphenous vein appears patent and compressible segmentally. Ordering Physician: Darrian Rosen Referring Physician: Ankur Medina Performed By: Jacinda Prather RVT Physical Exam Narrative General: Alert, oriented, somewhat more awake today HEENT: Atraumatic, normocephalic Eyes: Anicteric, normal conjunctiva, extraocular movements grossly intact Neck: Supple Respiratory: Clear to auscultation bilaterally, normal respiratory effort Cardiovascular: Regular rate GI: Soft, nontender, nondistended Extremities: No edema Musculoskeletal: Moving all extremities in bed Neuro: No overt focal neurological deficits Skin: Lower extremity wrapped, has chronic Achilles wound Psych: Cooperative Assessment & Plan Assessment/Plan (1) Headache: QUALIFIERS: Headache type: unspecified Headache chronicity pattern: acute headache Intractability: not intractable Qualified Code(s): R 51.9 - Headache, unspecified (2) Slurred speech: (3) Generalized weakness: (4) Paroxysmal atrial fibrillation: (5) History of CVA (cerebrovascular accident): PLAN: Plan # Anemia-found to have esophageal ulcers and duodenal ulcer -Hemoglobin 9.1 today, on admission 10.2 and is down trended -Baseline appears around 10 so was somewhat lower than typical -Given weakness of unclear etiology will check FOBT as lowering hemoglobin and iron deficiency with anemia could be secondary to GI bleed -02/10: Patient had positive FOBT, GI consulted and patient scheduled for upper endoscopy. Patient found to have esophageal ulcers oozing blood that were treated with heater probe and oozing duodenal ulcer with visible vessel that was also treated with heater probe. Continue IV PPI. Also start Carafate, DC aspirin for the time being # Generalized weakness and slurred speech -There is concern for stroke on admission, echo and MRI within normal limits, CTA with no critical stenosis -Unclear reason for patient's generalized weakness, UA normal, CK normal -Labs not overly revealing and vitally overall has been stable -PT/OT -Will reassess in the a.m. after morphine has worn off as patient reports he had been tired since that time -TSH very slightly elevated, check free T4 -Check B12 and vitamin D - if all is negative may need to consider changing tizanidine and/or gabapentin however these are on for spasticity do not want to hold them unnecessarily -02/08: Query if patient's age and comorbidities in addition to the gabapentin and tizanidine may contribute to patient's overall weakness as well as a component of relative volume depletion. Patient afebrile, does not have a leukocytosis, vitally stable, chronically anemic, iron is on the low end so we will give IV iron. B12 and vitamin D pending, free T4 within normal limits, UA on presentation unremarkable. Does seem somewhat better today and has been hydrated, patient to work with PT/OT and will likely need rehab prior to going home if possible. His atorvastatin has been held due to concerns this could be contributing to weakness, may consider starting back at lower dose or switching to pravastatin pending patient progress -02/09: Patient's daughter reports outpatient physician was worried for PMR, ESR 28 and CRP 45.7, difficult to tell in total clinical picture of this could be due to chronic wounds and other comorbidities are patient does have PMR. If FOBT negative/GI bleed ruled out will discuss with patient and if patient has morning stiffness will consider trial of prednisone -02/10: Patient was FOBT positive and found to have multiple bleeding esophageal ulcers and a bleeding duodenal ulcer, query if continual blood loss may have been contributing to patient's generalized weakness and tiredness. Will treat underlying GI bleed, monitor hemoglobin, if symptoms do not improve with improvement in underlying GI bleed can again revisit rheumatologic disorders, may be able to do this on an outpatient basis depending on progress and ability to be placed # History of coronary artery disease and stent -His atorvastatin was held on presentation due to concerns that this may have been contributing to his weakness -May be able to reintroduce tomorrow -Continue aspirin -02/10: Aspirin held, given GI bleed found may be able to restart atorvastatin on discharge, can consider trialing at lower dose or switching to pravastatin Chronic medical problems: # History of paroxysmal atrial fibrillation -Not on anticoagulation due to falls, patient in normal sinus rhythm -Not presently on rate control -Being monitored on telemetry #Chronic BPH with obstruction -Continue home medications #DVT ppx: SCDs if tolerated Dayanara Rider MD Time spent in the patient's overall evaluation,decision-making process, review of diagnostic data, adjustment of management, discussion with other providers, nursing nursing and ancillary staff involved in patient's care documentation, 39 minutes Charges/Coding Visit Charges Inpatient E&M: 53165 Subs Hosp L2
[2024-02-11] MEDS: Ascorbic Acid 500 MG Tablet PO (11:32)
[2024-02-11] MEDS: Ferrous Sulfate 325 MG Tablet PO (11:32)
--- NOTE | 2024-02-11 15:29 | CASEMGMT ---
Social Work Pt has a living will and health care power of employment attorney on file at [facility]. [facility] names 1. Sabine Cruz and 2. Arti Mccabe, daughter as decision makers. DEYSI Valera
--- NOTE | 2024-02-11 16:02 | PCM.PRE.AN2 ---
ASA Classification* ASA Classification ASA Classification: 3 Assessment & Plan Anesthesia* Anesthesia Assessment Anesthesia Assessment: Discussed sedation and/or anesthesia options, risks, benefits, and alternatives with patient/parents/legal guardian/POA. Questions invited. The patient/parents/legal guardian/POA seems to understand and agrees to proceed with anesthesia plan. Reviewed the physical assessment, medical history, allergy history and patient home medications list prior to surgery/procedure/anesthetic and documented any changes. Performed airway and anesthesia risk assessments. Anesthesia Type Anesthesia Type: MAC History Source History Obtained from:: Patient and Chart Anesthesia Focused Assessment* Temperature: 98.1 F Pulse Rate: 51 Blood Pressure: 123/66 Respiratory Rate: 18 Pulse Ox: 96 Oxygen Delivery Method: Room Air Airway Assessment Mouth opens: >3 cm Mallampati Score: I Teeth Condition: Full (Full upper plate removed. Lower partial is also out.) Neck Range of motion (ROM): Limited ROM (Severely decreased extension secondary to fusion of C3-C4) Pertinent Findings EKG Pertinent Findings:: February 11, 2024. Sinus bradycardia 54 bpm. Left axis deviation. Left ventricular hypertrophy. Cannot rule out anterior septal infarct Focused Labs Anesthesia Preop lab: CBC WBC 3.6 K/mm3 (4.4-11.0) L 02/11/24 05:55 RBC 3.27 M/mm3 (4.6-6.2) L 02/11/24 05:55 Hgb 10.1 g/dL (13.0-16.5) L 02/11/24 05:55 Hct 31.6 % (40-54) L 02/11/24 05:55 Plt Count 194 K/mm3 (150-450) 02/11/24 05:55 CHEMISTRY Potassium 4.2 mmol/L (3.5-5.1) 02/11/24 05:55 Sodium 139 mmol/L (136-145) 02/11/24 05:55 Magnesium 2.1 mg/dL (1.6-2.6) 02/09/24 04:43 Phosphorus 3.4 mg/dL (2.5-4.9) 02/09/24 04:43 BUN 30 mg/dL (7-18) H 02/11/24 05:55 Creatinine 0.70 mg/dL (0.70-1.30) 02/11/24 05:55 Glucose 77 mg/dL (74-106) 02/11/24 05:55 TSH 3.920 uIU/mL (0.358-3.740) H 02/07/24 15:27 COAG PT 14.4 SECONDS (11.7-14.9) 02/07/24 15:27 Pre-Assessment Diagnosis/Proposed Procedure Planned Operative Procedure(s): Esophagogastroduodenoscopy. 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 When Was Last Pacemaker Check QUESTION #4 FULL TEXT: You/Your Family Experience fever (hyperthermia) with Anesthesia Last Oral Intake Last Oral intake: Last Oral Intake NPO since Meds taken in AM with sips of water? Meds patient instructed to take am of surgery Any additional information?: Yes NPO since: 00:00 Meds taken in AM with sips of water?: Yes PONV PONV - nuclear technician: PONV - nuclear technician Female HX of Motion Sickness HX of N/V After Surgery Non-Smoker Duration of Surgery greater than 60 minutes Number of Risk Factors PONV Score Height & Weight Height & Weight: Anesthesia: Height & Weight Height 5 ft 9 in 02/11/24 15:50 Weight: 81.3 kg 02/11/24 15:50 Body Mass Index (BMI) 26.4 02/11/24 10:54 Respiratory Assessment Respiratory Assessment - nuclear technician: Respiratory Tract Infection Hx - nuclear technician Hx Respiratory Tract Infection No 02/11/24 01:10 STOP Sleep Apnea STOP Sleep Apnea - nuclear technician: STOP Sleep Apnea - nuclear technician Hx Hypertension No 02/11/24 10:54 Hx Sleep Apnea No 02/07/24 20:45 CPAP BIPAP Do you snore loudly (louder Yes 02/07/24 20:45 than talking or can be heard Do you often feel tired/ Yes 02/07/24 20:45 fatigued/ sleepy during daytime? Has anyone observed you stop No 02/07/24 20:45 breathing during sleep? STOP Results Positive 02/07/24 20:45 QUESTION #5 FULL TEXT : Do you snore loudly (louder than talking or can be heard through closed doors)? 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 Specify any problems Hx of Preganancy in last 3 N/A 02/07/24 20:45 Months Nurse Filling Out Transfusion [id number] 02/07/24 20:45 & Questions: Date: 02/07/24 02/07/24 20:45 Time: 20:53 02/07/24 20:45 Patient unable to answer at this time (ie. confused, unrespo /Reproduction History /Reproductive History - nuclear technician: /Reproductive Hx- nuclear technician Hx Now No 02/11/24 01:10 Gestational Age (in weeks): EDC: Hx Hx Para Hx Section SAB No 02/11/24 01:10 Active Medications Active Medications: Current Medications Generic Name Dose Route Start Last Admin Trade Name Freq PRN Reason Stop Dose Admin Acetaminophen 650 mg 02/07/24 21:24 02/10/24 22:11 Acetaminophen 325 Mg Tablet PO 650 mg Q6H PRN PRN Administration Pain Score 1-10 or fever Ascorbic Acid 500 mg 02/08/24 12:00 02/11/24 11:32 Ascorbic Acid 500 Mg Tablet PO 500 mg 1200 DARION Administration Aspirin 325 mg 02/08/24 08:00 02/10/24 08:14 Aspirin E.C. 325 Mg Tablet PO 325 mg DAILYCM DARION Administration Cilostazol 50 mg 02/07/24 22:00 02/11/24 08:26 Cilostazol 50 Mg Tablet PO Not Given BID DARION Enoxaparin Sodium 40 mg 02/08/24 10:00 02/10/24 10:51 Enoxaparin 40 Mg/0.4 Ml Syringe SC 40 mg DAILY DARION Administration Ferrous Sulfate 325 mg 02/08/24 12:00 02/11/24 11:32 Ferrous Sulfate 325 Mg Tablet PO 325 mg DAILY@1200 DARION Administration Finasteride 5 mg 02/08/24 10:00 02/11/24 08:28 Finasteride 5 Mg Tablet PO 5 mg DAILY DARION Administration Gabapentin 100 mg 02/08/24 08:00 02/11/24 08:27 Gabapentin 100 Mg Capsule PO 100 mg BIDCM DARION Administration Sodium Chloride 250 mls @ 15 mls/hr 02/07/24 20:58 IV .[id number] PRN Additional IVPB Infusion Sodium Chloride 250 mls @ 15 mls/hr 02/07/24 20:58 IV .[id number] PRN Saline Flush Pantoprazole Sodium 40 mg/ 110 mls @ 330 mls/hr 02/10/24 22:00 02/11/24 09:18 Sodium Chloride IV Infused Q12 DARION Infusion Sodium Chloride 1,000 mls @ 15 mls/hr 02/11/24 14:55 IV .Q48H DARION Lactic Acid 1 applic 02/07/24 22:00 02/10/24 22:02 Ammonium Lactate 225 Gm Bottle TOPICAL 1 applic QHS DARION Administration Mirtazapine 7.5 mg 02/07/24 22:00 02/10/24 22:01 Mirtazapine 15 Mg Tablet PO 7.5 mg QHS DARION Administration Nutritional Formula (Lactose Free) 120 ml 02/08/24 14:00 02/11/24 13:17 Ensure Plus High Protein 120 Ml Liquid PO Not Given 4X/DAY DARION Nystatin 1 applic 02/07/24 22:00 02/11/24 08:28 Nystatin Powder 15gm Bottle TOPICAL 1 applic BID DARION Administration Sodium Chloride 10 - 40 ml 02/07/24 20:58 08/20/24 08:28 0.9% Saline Lock 10 Ml Syringe IV 10 ml UD PRN Administration SALINE FLUSH Tizanidine HCl 2 mg 02/07/24 21:24 02/09/24 20:28 Tizanidine Hcl 2 Mg Tablet PO 2 mg QHS PRN Administration muscle spasm PFSH Medical History Paroxysmal atrial fibrillation Hypotension Generalized weakness 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 History of iron deficiency anemia Cervical spinal stenosis Neuropathic pain Atrial fibrillation TIA (transient ischemic attack) History of ST elevation myocardial infarction (STEMI) (01/11/16) 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) Essential hypertension Peripheral arterial occlusive disease History of basal cell cancer Cervical radiculopathy Stenosis of cervical spine with myelopathy Debility Restless leg syndrome Normochromic normocytic anemia Orthostatic hypotension Depression Urine retention Urinary incontinence Left ventricular hypertrophy BPH (benign prostatic hyperplasia) Pressure ulcer Myelopathy Tobacco dependence in remission Renal cyst Osteoarthritis Microscopic hematuria Eczema Anterolisthesis Leg swelling PAD (peripheral artery disease) Hyperlipidemia Atherosclerotic heart disease of [place] coronary artery without angina pectoris Paroxysmal atrial fibrillation Dilated aortic root Home Medications ?Medication ?Instructions ?Recorded ?Last Taken ?Type finasteride 5 mg tablet (Proscar) 5 mg PO DAILY PROSTATES 07/18/17 07/16/23 History cilostazol 50 mg tablet 50 mg PO BID vasodilator 02/02/22 07/16/23 History acetaminophen 500 mg tablet 1,000 mg PO Q6H PRN Pain Score 1-10 07/15/23 07/14/23 History atorvastatin 80 mg tablet 80 mg PO DAILY CHOLESTEROL 07/15/23 07/15/23 History ascorbic acid (vitamin C) 500 mg 500 mg PO 1200 #1 TAB 07/25/23 Unknown Rx tablet ferrous sulfate 325 mg (65 mg 325 mg PO DAILY@1200 #1 TAB 07/25/23 Unknown Rx iron) tablet (FeroSul) ammonium lactate 12 % topical cream 1 applic topical QHS 11/30/23 02/06/24 History miconazole nitrate 2 % topical 1 applic topical BID 11/30/23 Unknown History powder mirtazapine 7.5 mg tablet 7.5 mg PO QHS 11/30/23 Unknown History compression socks, medium #2 ea 12/04/23 Unknown Rx gabapentin 100 mg capsule 100 mg PO BIDCM nerve pain #30 caps 12/04/23 07/16/23 Rx tizanidine 2 mg tablet 2 mg PO QHS PRN muscle spasm #30 12/04/23 05/14/23 Rx tabs vitamin B12 0.5 mg-folic acid 1 mg 1 tab PO DAILY 02/09/24 02/07/24 History tablet Allergy/AdvReac Type Severity Reaction Status Date / Time No Known Allergies Allergy Verified 02/07/24 15:09 Family History Mother CHF (congestive heart failure) Heart disease Hypertension Father COPD (chronic obstructive pulmonary disease) Surgical History S/P debridement History of vascular surgery History of coronary artery stent placement (01/11/16) H/O laminectomy History of knee surgery S/P rotator cuff repair History of pilonidal cyst Social History household members: none housing: house number of children: 5 current occupation: retired current occupational exposures/hazards: No history of recent travel: No Smoking Status: Former smoker how long ago did patient quit smokin alcohol intake: current alcohol intake frequency: holidays/special occasions only details: occasional,holiday substance use type: does not use caffeine: Yes Type: coffee Number of servings: 10 what type of physical activity do you participate in: bicycling frequency: 1-2 times per week duration: 15-30 minutes/day seatbelt use: always do you feel safe at home: Yes Review of Systems (Anesthesia) ROS Narrative System reviewed and no additional complaints, except as documented.
--- NOTE | 2024-02-11 16:12 | EX.PCM.CON.G ---
HPI Consult Data Date of Consult: 02/11/24 HPI Narrative Reason for Consultation: Anemia HPI Narrative: SARA SAHA, is a 83 M with multiple comorbidities presented to [facility] complaint of generalized weakness and slurred speech. There was concern for possible acute CVA so he was admitted for workup. His echo and MRI within normal limits and his CTA with no critical stenosis. There was some concern about possible giant cell arteritis. They are considering putting him on steroids. I got called to see him due to decreasing hemoglobin. He has a history of CAD; s/p inferior wall STEMI (2015); s/p stent, PAF; not on anticoagulation due to previous GI bleed and increased fall risk, history of dilated aortic root, history of LVH, history of CVA (2022); with residual Right hemiparesis. 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 difficile. Most of the history was obtained from chart and the patient's daughter who is at the bedside. 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) Essential hypertension Peripheral arterial occlusive disease History of basal cell cancer Cervical radiculopathy Stenosis of cervical spine with myelopathy Debility Restless leg syndrome Normochromic normocytic anemia Orthostatic hypotension Depression Urine retention Urinary incontinence Left ventricular hypertrophy BPH (benign prostatic hyperplasia) Pressure ulcer Myelopathy Tobacco dependence in remission Renal cyst Osteoarthritis Microscopic hematuria Eczema Anterolisthesis Leg swelling PAD (peripheral artery disease) Hyperlipidemia Atherosclerotic heart disease of [place] coronary artery without angina pectoris Paroxysmal atrial fibrillation Dilated aortic root Home Medications ?Medication ?Instructions ?Recorded ?Last Taken ?Type finasteride 5 mg tablet (Proscar) 5 mg PO DAILY PROSTATES 07/18/17 07/16/23 History cilostazol 50 mg tablet 50 mg PO BID vasodilator 02/02/22 07/16/23 History acetaminophen 500 mg tablet 1,000 mg PO Q6H PRN Pain Score 1-10 07/15/23 07/14/23 History atorvastatin 80 mg tablet 80 mg PO DAILY CHOLESTEROL 07/15/23 07/15/23 History ascorbic acid (vitamin C) 500 mg 500 mg PO 1200 #1 TAB 07/25/23 Unknown Rx tablet ferrous sulfate 325 mg (65 mg 325 mg PO DAILY@1200 #1 TAB 07/25/23 Unknown Rx iron) tablet (FeroSul) ammonium lactate 12 % topical cream 1 applic topical QHS 11/30/23 02/06/24 History miconazole nitrate 2 % topical 1 applic topical BID 11/30/23 Unknown History powder mirtazapine 7.5 mg tablet 7.5 mg PO QHS 11/30/23 Unknown History compression socks, medium #2 ea 12/04/23 Unknown Rx gabapentin 100 mg capsule 100 mg PO BIDCM nerve pain #30 caps 12/04/23 07/16/23 Rx tizanidine 2 mg tablet 2 mg PO QHS PRN muscle spasm #30 12/04/23 05/14/23 Rx tabs vitamin B12 0.5 mg-folic acid 1 mg 1 tab PO DAILY 02/09/24 02/07/24 History tablet Allergy/AdvReac Type Severity Reaction Status Date / Time No Known Allergies Allergy Verified 02/07/24 15:09 Family History Mother CHF (congestive heart failure) Heart disease Hypertension Father COPD (chronic obstructive pulmonary disease) Surgical History S/P debridement History of vascular surgery History of coronary artery stent placement (01/11/16) H/O laminectomy History of knee surgery S/P rotator cuff repair History of pilonidal cyst Social History household members: none housing: house number of children: 5 current occupation: retired current occupational exposures/hazards: No history of recent travel: No Smoking Status: Former smoker how long ago did patient quit smokin alcohol intake: current alcohol intake frequency: holidays/special occasions only details: occasional,holiday substance use type: does not use caffeine: Yes Type: coffee Number of servings: 10 what type of physical activity do you participate in: bicycling frequency: 1-2 times per week duration: 15-30 minutes/day seatbelt use: always do you feel safe at home: Yes ROS ROS Narrative Review of systems: General: Patient denies fever of chills but he does admit to fatigue and low energy as per HPI. HENT: Denies headache, denies stuffy nose, denies sore throat EYES: Denies changes in vision or discharge from eyes. Resp: Denies cough, denies shortness of breath Cardiac: Denies chest pain, palpitations or heart racing. GI: Denies abdominal pain, denies changes in bowel, denies nausea or vomiting. : Denies changes in urination Extremity: Denies swelling Musculoskeletal: Feels somewhat generally weak and unwell with a sensation of heaviness in legs and recent fall as per HPI. Neuro: Patient admits to headache with slurred speech and heaviness in his legs but he denies paresthesias or other focal neurologic deficits. Heme: Denies any bleeding or bruising Skin: Denies rashes Psychiatric: No complaints voiced related to uncontrolled depression or anxiety. Endocrine: No polyuria, polydipsia or polyphagia. The rest of the 14 point ROS was negative except for positives in HPI. Physical Exam Narrative General: Alert, oriented, tired but not acutely distressed HEENT: Atraumatic, normocephalic Eyes: Anicteric, normal conjunctiva, extraocular movements grossly intact Neck: Supple Respiratory: Clear to auscultation bilaterally, normal respiratory effort Cardiovascular: Regular rate GI: Soft, nontender, nondistended Extremities: No edema Musculoskeletal: Moving all extremities in bed Neuro: No overt focal neurological deficits Skin: Lower extremity wrapped, has chronic Achilles wound Psych: Cooperative Lab / Micro Data 02/11/24 05:55 02/11/24 05:55 Labs: Laboratory Results - last 24 hr 02/11/24 05:55: WBC 3.6 L, RBC 3.27 L, Hgb 10.1 L, Hct 31.6 L, MCV 96.6 H, MCH 30.9, MCHC 32.0, RDW Std Deviation 53.8 H, RDW Coeff of [place] 15.2 H, Plt Count 194, MPV 11.2, Immature Gran % (Auto) 1.400 H, Neut % (Auto) 58.0, Lymph % (Auto) 20.8, [place] % (Auto) 15.6 H, Eos % (Auto) 3.9, Baso % (Auto) 0.3, Absolute Neuts (auto) 2.1, Absolute Lymphs (auto) 0.75 L, Nucleated RBC % 0, Sodium 139, Potassium 4.2, Chloride 107, Carbon Dioxide 28.0, Anion Gap 4 L, BUN 30 H, Creatinine 0.70, Estim Creat Clear Calc 69.96, Est GFR (MDRD) Af Amer 139, Est GFR (MDRD) Non-Af 115, BUN/Creatinine Ratio 43.0 H, Glucose 77, Calcium 9.5, Total Bilirubin 0.50, AST 28, ALT 31, Alkaline Phosphatase 140 H, Total Protein 7.0, Albumin 2.8 L, Globulin 4.2, Albumin/Globulin Ratio 0.7 L Micro: Microbiology 02/10/24 17:05 Stool Stool Occult Blood (JENNIFER) - Final Occult Blood Positive Imaging Radiology Impression Venous Doppler Study 02/07/24 15:59 Interpretation Summary Deep veins of the right lower extremity are patent and compressible segmentally. There is no evidence of right lower extremity deep vein thrombosis. Valvular competence appears intact within the proximal deep venous system on the right . The right great saphenous vein appears patent and compressible segmentally. Ordering Physician: Darrian Rosen Referring Physician: Ankur Medina Performed By: Jacinda Prather, RVT Assessment & Plan Assessment/Plan (1) Anemia: PLAN: Possible iron deficiency anemia secondary to GI bleed. Also different diagnosis would be angiodysplasia, gastric antral vascular ectasia, Fei's erosions on anticoagulation. He has a history iron deficiency anemia which also brings in a possibility of celiac disease or malignancy. Him and his family explained alternatives, risk, benefits include not withstanding bleeding, infection, sepsis, perforation, need for x-ray to . He will have an ASA of 3. Charges/Coding Visit Charges Inpatient E&M: 43370 Init Hosp L3
--- NOTE | 2024-02-11 16:48 | OP.EGD_ITS ---
Patient Name: Saqib Cruz Procedure Date: 02/11/2024 4:16 PM Date of : 1940 Age: 83 Procedure: Upper GI endoscopy Indications: Iron deficiency anemia, Melena Providers: Cam Monterroso DO Medicines: Monitored Anesthesia Care Patient Profile: This is an 83 year old male. Refer to note in patient chart for documentation of history and physical. Patient has symptoms. Complications: No immediate complications. Procedure: Pre-Anesthesia Assessment: - Prior to the procedure, a History and Physical was performed, and patient medications and allergies were reviewed. The patient is competent. The risks and benefits of the procedure and the sedation options and risks were discussed with the patient. All questions were answered and informed consent was obtained. Patient identification and proposed procedure were verified by the physician in the pre-procedure area. Mental Status Examination: alert and oriented. Airway Examination: normal oropharyngeal airway and neck mobility. Respiratory Examination: clear to auscultation. CV Examination: normal. Prophylactic Antibiotics: The patient does not require prophylactic antibiotics. Prior Anticoagulants: The patient has taken no anticoagulant or antiplatelet agents. ASA Grade Assessment: III - A patient with severe systemic disease. After reviewing the risks and benefits, the patient was deemed in satisfactory condition to undergo the procedure. The anesthesia plan was to use monitored anesthesia care (MAC). Immediately prior to administration of medications, the patient was re-assessed for adequacy to receive sedatives. The heart rate, respiratory rate, oxygen saturations, blood pressure, adequacy of pulmonary ventilation, and response to care were monitored throughout the procedure. The physical status of the patient was re-assessed after the procedure. After obtaining informed consent, the endoscope was passed under direct vision. Throughout the procedure, the patient's blood pressure, pulse, and oxygen saturations were monitored continuously. The gastroscope was introduced through the mouth, and advanced to the second part of duodenum. The upper GI endoscopy was accomplished without difficulty. The patient tolerated the procedure well. Scope In: 4:36:46 PM Scope Out: 4:42:14 PM Total Procedure Duration Time 0 hours 5 minutes 28 seconds Findings: Two cratered esophageal ulcers oozing blood were found 38 to 40 cm from the incisors. The largest lesion was 4 mm in largest dimension. Coagulation for hemostasis using heater probe was successful. Estimated blood loss was minimal. No gross lesions were noted in the entire examined stomach. One oozing cratered duodenal ulcer with a visible vessel was found in the duodenal bulb. The lesion was 10 mm in largest dimension. Coagulation for hemostasis using heater probe was successful. Estimated blood loss was minimal. Impression: - Esophageal ulcers oozing blood. Treated with a heater probe. - No gross lesions in the entire stomach. - Oozing duodenal ulcer with a visible vessel. Treated with a heater probe. - No specimens collected. Recommendation: - [facility]. - Resume previous diet. - Continue present medications. Procedure Code(s): --- Professional --- 30607, Esophagogastroduodenoscopy, flexible, transoral; with control of bleeding, any method CPT copyright 2021 [employer]. All rights reserved. The codes documented in this report are preliminary and upon clinical coder review may be revised to meet current compliance requirements. Cam Monterroso DO 02/11/2024 4:48:25 PM This report has been signed electronically. Number of Addenda: 0 Note Initiated On: 02/11/2024 4:16 PM
--- NOTE | 2024-02-11 16:48 | OP.CCLET_ITS ---
02/11/2024 Ankur Medina [address] [facility] [place] [address] [place] [address] Re : Upper GI endoscopy procedure for [facility] Dear Dr. Medina This procedure was performed on Sunday, February 11, 2024. My impressions and recommendations are as follows: Impressions : - Esophageal ulcers oozing blood. Treated with a heater probe. - No gross lesions in the entire stomach. - Oozing duodenal ulcer with a visible vessel. Treated with a heater probe. - No specimens collected. Recommendations : - [facility]. - Resume previous diet. - Continue present medications. My findings are described in the full procedure note, which is enclosed. If I can be of further assistance, please feel free to contact me at . Sincerely, Cam Monterroso, 02/11/2024 4:48:25 PM This report has been signed electronically.
--- NOTE | 2024-02-11 16:55 | PCM.POST.ANE ---
Anesthesia: Postop Eval I Current Vital Signs Temperature: 98 F Pulse Rate: 60 Blood Pressure: 54/39 Respiratory Rate: 18 Pulse Ox: 98 Oxygen Delivery Method: Room Air Assessment Airway patent: Yes Spontaneous unlabored respirations: Yes Mental status: Asleep nausea: No Vomiting: No Anesthesia Complication: Yes Anesthesia Complication Comment:: hypotention Fluid Hydration Crystalloid volume administer (ml): 200 Total IV fluid infused: 200 Progress Note Anesthesia document: Postop Eval 1 completed: Yes
[2024-02-11] MEDS: Ensure Plus High Protein 120 ML LIQUID PO ×2 (18:09→20:21)
--- NOTE | 2024-02-11 18:16 | PCM.POSTANE2 ---
Anesthesia Postop Eval I Sum Postop Eval Completion status Anesthesia document: Postop Eval 1 completed: Yes Anesthesia Postop Eval I Summary Anesthesia Postop Eval I Summary: Anesthesia Postop Eval I: Assessment Summary Airway patent Yes 02/11/24 16:56 [email or web address] Spontaneous unlabored Yes 02/11/24 16:56 [email or web address] respirations Mental status Asleep 02/11/24 16:56 [email or web address] nausea No 02/11/24 16:56 [email or web address] Vomiting No 02/11/24 16:56 [email or web address] Anesthesia Postop Eval I: Fluid Summary Crystalloid volume administer 200 02/11/24 16:56 [email or web address] (ml) Colloids volume administered ( ml) Blood Product volume administered (ml) Total IV fluid infused 200 02/11/24 16:56 [email or web address] Anesthesia Postop Eval I: Summary Notes Anesthesia Complication Yes 02/11/24 16:56 [email or web address] Anesthesia Complication hypotention 02/11/24 16:56 [email or web address] Comment: Post-operative progress note Anesthesia: Postop Eval II Evaluation Mental status: Awake Pain Level: 0 nausea: No Vomiting: No
[2024-02-11] MEDS: Sucralfate 1 GM Tablet PO (20:09)
[2024-02-11] MEDS: Ammonium Lactate 225 gm Bottle 1 APPLIC TOPICAL (20:20)
[2024-02-11] MEDS: Mirtazapine 15 MG Tablet 7.5 MG PO (20:22)
[2024-02-11] MEDS: Cilostazol 50 MG Tablet PO (20:22)
[2024-02-11] MEDS: tiZANidine HCl 2 MG Tablet PO (20:24)
[2024-02-11] MEDS: Acetaminophen 325 MG Tablet 650 MG PO (20:27)
[2024-02-12 01:00] VITALS: BMI 26.4
[2024-02-12 02:00] VITALS: BP 104/64; PULSE 66; RESP 16; TEMP 36.3; O2SAT 94
[2024-02-12] MEDS: Acetaminophen 325 MG Tablet 650 MG PO (02:10)
[2024-02-12 06:16] LABS: Absolute Lymphocyte Count 0.55 X10^3/uL (0.83-4.51); Absolute Neutrophil Count 4.6 X10^3/uL (2.0-7.7); Basophil# 0.01 X10^3/uL; Basophil% 0.2 % (0-1); Eosinophil# 0.12 X10^3/uL; Hematocrit 32.2 % (40-54); Hemoglobin 10.2 g/dL (13.0-16.5); Lymphocyte # 0.55 X10^3/ul (0.83-4.51); Lymphocyte % 9.1 % (19-41); Mean Corp Hgb Conc 31.7 g/dL (32-36); Mean Corpuscular Hgb 30.6 pg (27.0-32.0); Mean Corpuscular Volume 96.7 fL (80-94); Mean Platelet Vol. 10.9 fl (6.2-12.0); Monocyte# 0.76 X10^3/uL; Monocyte% 12.5 % (0-10); NRBC Flagged by Analyzer 0 % (0-5); Neutrophil # 4.58 X10^3/uL (2.7-7.7); Neutrophil % 75.5 % (47-70); POSITIVE DIFFERENTIAL YES; Platelet Count 233 K/mm3 (150-450); RBC Distribution Width CV 15.3 % (11.6-14.6); RBC Distribution Width SD 53.7 fl (35.1-43.9); Red Blood Count 3.33 M/mm3 (4.6-6.2); White Blood Count 6.1 K/mm3 (4.4-11.0)
[2024-02-12 06:41] LABS: ALB/GLOB Ratio 0.6 RATIO (0.9-2.4); AST(SGOT) 28 U/L (15-37); Alanine Aminotransfer ALT/SGPT 29 U/L (16-61); Albumin, Serum 2.8 g/dL (3.2-5.0); Alkaline Phosphatase 140 U/L (45-117); Anion Gap 4 (5-15); BUN 27 mg/dL (7-18); BUN/Creat Ratio 35.5 RATIO (10-20); Calcium,Total 9.4 mg/dL (8.5-10.1); Chloride 102 mmol/L (98-107); Creatinine, Serum 0.76 mg/dL (0.70-1.30); EST Glomerular Filtration Rate 104 mL/min (>60); Est Glom Filt Rate - Afr Amer 126 mL/min (>60); Estimated Creatinine Clearance 69.96 ml/min; Globulin 4.6 g/dL (2.2-4.2); Glucose 72 mg/dL (74-106); Potassium 4.8 mmol/L (3.5-5.1); Protein, Total 7.4 g/dL (6.4-8.2); Sodium Level 135 mmol/L (136-145)
[2024-02-12] MEDS: Sucralfate 1 GM Tablet PO ×2 (06:43→11:26)
[2024-02-12 07:00] VITALS: PULSE 54
--- NOTE | 2024-02-12 07:47 | PN.HOSP_ITS ---
Reason for Visit Reason for Visit: Diagnoses Anemia, unspecified (02/09/24) Paroxysmal atrial fibrillation (02/09/24) Slurred speech (02/09/24) Headache, unspecified (02/09/24) Weakness (02/09/24) Personal history of transient ischemic attack (TIA), and cerebral infarction without residual deficits (02/09/24) Subjective Subjective Patient is an 83-year-old gentleman admitted with progressive generalized weakness found to be anemic Objective Data Objective Data Vital Signs: Vital Signs Temp Pulse Resp BP Pulse Ox O2 Del Method O2 Flow Rate 97.3 F L 66 16 104/64 94 Room Air 96 02/12/24 02:00 02/12/24 02:00 02/12/24 02:00 02/12/24 02:00 02/12/24 02:00 02/12/24 03:57 02/11/24 16:08 Oxygen Flow Rate (L/min) 96 Oxygen Delivery Method Room Air Weight: 81.3 kg Body Mass Index (BMI) 26.4 Intake & Output: Intake and Output for Last 24 Hours 02/10/24 02/11/24 02/12/24 23:59 23:59 23:59 Intake Total 470 / 470 370 / 820 1000 / 1000 Output Total 750 / 750 800 / 1000 400 / 400 Balance -280 / -280 -430 / -180 600 / 600 Lab / Micro Data 02/12/24 05:41 02/12/24 05:41 Labs: Laboratory Results - last 24 hr 02/11/24 05:55: Sodium 139, Potassium 4.2, Chloride 107, Carbon Dioxide 28.0, A nion Gap 4 L, BUN 30 H, Creatinine 0.70, Estim Creat Clear Calc 69.96, Est GFR (MDRD) Af Amer 139, Est GFR (MDRD) Non-Af 115, BUN/Creatinine Ratio 43.0 H, Glucose 77, Calcium 9.5, Total Bilirubin 0.50, AST 28, ALT 31, Alkaline Phosphatase 140 H, Total Protein 7.0, Albumin 2.8 L, Globulin 4.2, A lbumin/Globulin Ratio 0.7 L 02/12/24 05:41: WBC 6.1, RBC 3.33 L, Hgb 10.2 L, Hct 32.2 L, MCV 96.7 H, MCH 30.6, MCHC 31.7 L, RDW Std Deviation 53.7 H, RDW Coeff of Marion 15.3 H, Plt Count 233, MPV 10.9, Immature Gran % (Auto) 0.700, Neut % (Auto) 75.5 H, Lymph % (Auto) 9.1 L, Mcmullen % (Auto) 12.5 H, Eos % (Auto) 2.0, Baso % (Auto) 0.2, Absolute Neuts (auto) 4.6, Absolute Lymphs (auto) 0.55 L, Nucleated RBC % 0, S odium 135 L, Potassium 4.8, Chloride 102, Carbon Dioxide 29.0, Anion Gap 4 L, B UN 27 H, Creatinine 0.76, Estim Creat Clear Calc 69.96, Est GFR (MDRD) Af Amer 126, Est GFR (MDRD) Non-Af 104, BUN/Creatinine Ratio 35.5 H, Glucose 72 L, Calcium 9.4, Total Bilirubin 0.70, AST 28, ALT 29, Alkaline Phosphatase 140 H, Total Protein 7.4, Albumin 2.8 L, Globulin 4.6 H, Albumin/Globulin Ratio 0.6 L Micro: Microbiology 02/10/24 17:05 Stool Stool Occult Blood (JENNIFER) - Final Occult Blood Positive Radiography Diagnostic Testing: Radiology Impression Venous Doppler Study 02/07/24 15:59 Interpretation Summary Deep veins of the right lower extremity are patent and compressible segmentally. There is no evidence of right lower extremity deep vein thrombosis. Valvular competence appears intact within the proximal deep venous system on the right . The right great saphenous vein appears patent and compressible segmentally. Ordering Physician: Darrian Rosen Referring Physician: Ankur Medina Performed By: Jacinda Prather, RVT Physical Exam Narrative GENERAL: cooperative HEENT: Atraumatic; normocephalic EYES; Anicteric, Normal Conjunctiva NECK; supple, normal thyroid, RESPIRATORY: Diminished to auscultation CARDIOVASCULAR: Regular S1 S2, GI: soft, normoactive bowel sounds, : No Renal angle tenderness; EXTREMITIES: No edema, no clubbing, MUSCULOSKELETAL: no muscle wasting NEURO: Awake; no lateralizing signs. PSYCH; Flat affect Skin: Lower extremity wrapped, has chronic Achilles wound Assessment & Plan Assessment/Plan (1) Headache: QUALIFIERS: Headache chronicity pattern: acute headache Headache type: unspecified Intractability: not intractable Qualified Code(s): R51.9 - Headache, unspecified (2) Slurred speech: (3) Generalized weakness: (4) Paroxysmal atrial fibrillation: (5) History of CVA (cerebrovascular accident): PLAN: Plan Patient is an 83-year-old gentleman admitted with progressive generalized weakness found to be anemic 1. Anemia Secondary to chronic blood loss anemia patient underwent EGD was found to have o have esophageal ulcers oozing blood that were treated with heater probe and oozing duodenal ulcer with visible vessel that was also treated with heater probe. Managed with PPI as well as sucralfate patient was on aspirin discontinued 2. Physical deconditioning ? Requested for PT OT eval and certified social workers in health care to assist with discharge planning 3. Coronary artery disease ? With history of previous STEMI patient on antiplatelet therapy held on discharge given the above findings 4. Previous history of abnormal esophageal motility suspicious for achalasia ? Patient has undergone previous esophageal dilatation by Dr. Monterroso on 04/29/2023 5.. Peripheral arterial disease ? With previous intervention proximal left peroneal to distal left peroneal angioplasty x3 11/02/2021 6. Paroxysmal A-fib ? Rate controlled patient was not started on systemic anticoagulation after he was deemed to be a poor candidate. 7. Dyslipidemia -Patient is on statin therapy, continued at home dose 8. BPH with lower urinary obstructive symptoms ? Patient is on finasteride continued 9. Restless leg syndrome ? Symptomatic treatment with pramipexole. 10. DVT prophylaxis ? Bilateral SCD Time spent in the patient's overall evaluation,decision-making process, review of diagnostic data, adjustment of management, discussion with other providers, nursing nursing and ancillary staff involved in patient's care documentation, 35 minutes
[2024-02-12 09:25] VITALS: BP 92/44; PULSE 57; RESP 16; TEMP 35.9; O2SAT 94
[2024-02-12] MEDS: Pantoprazole Sodium 40 MG in 0.9% Normal Saline (100mL MB+) 100 ML 330 MG IV (09:35)
[2024-02-12] MEDS: Ensure Plus High Protein 120 ML LIQUID PO (09:35)
[2024-02-12] MEDS: Nystatin Powder 15gm Bottle 1 APPLIC TOPICAL (09:37)
--- NOTE | 2024-02-12 10:36 | TREXTCAR_ITS ---
Diet Diet Order/Speech Therapy: 02/11/24 17:40 Diet: Regular - General Diet Comments: please send up built up silverware with all meals Wound(s) Left Leg: Wound Type: Pressure Injury R elbow: Wound Type: Abrasion left Achilles area: Wound Type: chronic nonhealing wound Dressing Change: AntiMicrobial (Aquacel AG, etc) Therapies Physical Therapy: Eval and Treat Occupational Therapy: Eval and Treat Problem/Diagnosis (1) Headache: Status: Acute Code(s): R51.9 - Headache, unspecified (2) Slurred speech: Status: Acute Code(s): R47.81 - Slurred speech (3) Generalized weakness: Status: Acute Code(s): R53.1 - Weakness (4) Paroxysmal atrial fibrillation: Status: Acute Code(s): I48.0 - Paroxysmal atrial fibrillation (5) History of CVA (cerebrovascular accident): Status: Acute Code(s): Z86.73 - Personal history of transient ischemic attack (TIA), and cerebral infarction without residual deficits Plan Patient is an 83-year-old gentleman admitted with progressive generalized weakness found to be anemic 1. Anemia Secondary to chronic blood loss anemia patient underwent EGD was found to have o have esophageal ulcers oozing blood that were treated with heater probe and oozing duodenal ulcer with visible vessel that was also treated with heater probe. Managed with PPI as well as sucralfate patient was on aspirin discontinued 2. Physical deconditioning ? Requested for PT OT eval and psychiatric social worker supervisor to assist with discharge planning 3. Coronary artery disease ? With history of previous STEMI patient on antiplatelet therapy held on [facility] given the above findings 4. Previous history of abnormal esophageal motility suspicious for achalasia ? Patient has undergone previous esophageal dilatation by Dr. Monterroso on 04/29/2023 5.. Peripheral arterial disease ? With previous intervention proximal left peroneal to distal left peroneal angioplasty x3 11/02/2021 6. Paroxysmal A-fib ? Rate controlled patient was not started on systemic anticoagulation after he was deemed to be a poor candidate. 7. Dyslipidemia -Patient is on statin therapy, continued at home dose 8. BPH with lower urinary obstructive symptoms ? Patient is on finasteride continued 9. Restless leg syndrome ? Symptomatic treatment with pramipexole. 10. DVT prophylaxis ? Bilateral SCD Time spent in the patient's overall evaluation,decision-making process, review of diagnostic data, adjustment of management, discussion with other providers, nursing nursing and ancillary staff involved in patient's care documentation, 35 minutes Allergies/Procedures Done in Hospital Allergies No Known Allergies Allergy (Verified 02/07/24 15:09) Type of Care/Length of Stay Estimated LOS: Convalescent Care Less Than 30 days Type of Care Needed: Skilled Rehab Potential: Fair Prognosis: Fair Additional Orders/Day of Discharge Day of Discharge: 02/12/24 Dietary and Speech Recommendations Dietitian Recommendations/Changes: ADAT to Cardiac diet when medically able to optimize oral intakes. Recommend 120mL ensure plus high protein 4x daily with medpass once diet has been advanced Speech Linguistic Eval Summary: Referral Reason: The patient was evaluated for speech therapy services following a possible transient ischemic attack (TIA), with concerns about residual communication deficits. Subjective: The patient reported being aware of recent changes in speech clarity. No significant concerns were noted regarding memory or comprehension. The patient expressed interest in improving speech intelligibility. Objective: 1. Cognitive Communication: - Attention and Orientation: The patient was alert and oriented to person, place, time, and situation. Temporal and spatial orientation were intact. - Memory: Memory assessment revealed intact recall abilities, both immediate and delayed, indicating functional memory. 2. Language: - Auditory Comprehension: The patient demonstrated good auditory comprehension, accurately following both simple and complex instructions. - Problem-Solving: Functional problem-solving skills were observed during conversational tasks. 3. Speech Production: - Articulation and Phonology: The patient presented with slurred speech, indicative of mild dysarthria. Speech intelligibility was reduced, particularly during longer utterances or under fatigue. - Prosody and Fluency: Speech rate and rhythm were generally appropriate, though prosody was occasionally disrupted by dysarthric features. 4. Oral-Motor Function: - The patient presented with mild deficits in lingual elevation, protrusion, retraction, and range of motion, which are negatively impacting speech intelligibility. - An oral-motor examination indicated mild deficits in strength and coordination, contributing to the observed dysarthria. 5. Swallowing Function: - Diet: The patient was provided with regular solids and thin liquid PO trials. - Observation: No overt clinical signs or symptoms of aspiration (e.g., coughing, choking, wet vocal quality) were noted during trials. However, given the patient?s history of achalasia, ongoing monitoring of swallow function is recommended to ensure safety. Assessment: The patient presents with mild dysarthria, which, along with mild deficits in lingual elevation, protrusion, retraction, and range of motion, is contributing to reduced speech intelligibility. Cognitive communication abilities, including memory and comprehension, are intact. Although no clinical signs of aspiration were observed, given the patient's history of achalasia, there is a need to monitor safe swallow function. The patient would benefit from continued speech therapy services focused on improving speech intelligibility, enhancing oral- motor strength and coordination, and ensuring safe swallow function. Plan: 1. Continue speech therapy to address: - Speech intelligibility. - Oral-motor strength and coordination. - Safe swallow function. 2. Monitor for any signs of aspiration during meals. 3. Reassess as needed based on patient progress and any changes in medical status. Discharge Plan Admission Admit Date/Time: 02/09/24 13:09 Attending Provider: Manoj England Primary Care Provider: Ankur Medina Consulting Providers: Manoj Dominguez; Dayanara Rider Discharge Orders/Prescriptions Prescriptions: New sucralfate 1 gram Tablet 1 g PO 1HR_ACHS Qty: 0 0RF Ensure Plus High Protein 0.08 gram-1.5 kcal/mL Liquid 120 ml PO 4X/DAY Qty: 0 0RF pantoprazole [Protonix] 40 mg tablet,delayed release (DR/EC) 40 mg PO DAILY Qty: 60 0RF Continued finasteride [Proscar] 5 mg tablet 5 mg PO DAILY cilostazol 50 mg tablet 50 mg PO BID atorvastatin 80 mg tablet 80 mg PO DAILY acetaminophen 500 mg Tablet 1,000 mg PO Q6H PRN (Reason: Pain Score 1-10) ascorbic acid (vitamin C) 500 mg Tablet 500 mg PO 1200 Qty: 1 0RF ferrous sulfate [FeroSul] 325 mg (65 mg iron) Tablet 325 mg PO DAILY@1200 Qty: 1 0RF mirtazapine 7.5 mg tablet 7.5 mg PO QHS miconazole nitrate 2 % powder 1 applic topical BID ammonium lactate 12 % cream 1 applic topical QHS tizanidine 2 MG tablet 2 mg PO QHS PRN (Reason: muscle spasm) Qty: 30 0RF gabapentin 100 mg capsule 100 mg PO BIDCM Qty: 30 0RF (DME) compression socks, medium Misc See Rx Instructions .ROUTE Qty: 2 0RF Rx Instructions: As directed vitamin P42-ykhsx acid 0.5-1 mg tablet 1 tab PO DAILY Referrals / Follow Up: Ankur Medina DO [Primary Care Provider] - Within 2 Weeks Disposition Disposition (needs filled in before D/C Order can be placed): Residential Facility (1) Headache Qualifiers: Headache type: unspecified Headache chronicity pattern: acute headache Intractability: not intractable Qualified Code(s): R51.9 - Headache, unspecified
--- NOTE | 2024-02-12 10:39 | PCM.DC.SUM ---
Providers Date of Admission: 02/09/24 Date of Discharge: 02/12/24 Primary Care Physician: Dr. Ankur Medina, DO Consultations 02/09/24 15:40 Consult: Onc/Wound/assembler musical instruments Routine Comment: Reason for Consult:: Left Heel chronic wound 02/10/24 17:39 Consult: Gastroenterology Routine Consulting Provider: [facility] Reason for Consult: Decreasing hgb, FOBT + EMERGENT Consult: No MD Notified: Yes Date Notified: 02/10/24 Time Notified: 17:58 Method of Notification: Text Reason For Visit: HEADACHE SLURRED SPEECH HEAVINESS IN LEGS Diagnosis Discharge Diagnosis (1) Headache: Status: Acute Code(s): R51.9 - Headache, unspecified Qualifiers: Headache type: unspecified Headache chronicity pattern: acute headache Intractability: not intractable Qualified Code(s): R51.9 - Headache, unspecified (2) Slurred speech: Status: Acute Code(s): R47.81 - Slurred speech (3) Generalized weakness: Status: Acute Code(s): R53.1 - Weakness (4) Paroxysmal atrial fibrillation: Status: Acute Code(s): I48.0 - Paroxysmal atrial fibrillation (5) History of CVA (cerebrovascular accident): Status: Acute Code(s): Z86.73 - Personal history of transient ischemic attack (TIA), and cerebral infarction without residual deficits Plan Patient is an 83-year-old gentleman admitted with progressive generalized weakness found to be anemic 1. Anemia Secondary to chronic blood loss anemia patient underwent EGD was found to have o have esophageal ulcers oozing blood that were treated with heater probe and oozing duodenal ulcer with visible vessel that was also treated with heater probe. Managed with PPI as well as sucralfate patient was on aspirin discontinued 2. Physical deconditioning ? Requested for PT OT eval and social media executive to assist with discharge planning 3. Coronary artery disease ? With history of previous STEMI patient on antiplatelet therapy held on discharge given the above findings 4. Previous history of abnormal esophageal motility suspicious for achalasia ? Patient has undergone previous esophageal dilatation by Dr. Monterroso on 04/29/2023 5.. Peripheral arterial disease ? With previous intervention proximal left peroneal to distal left peroneal angioplasty x3 11/02/2021 6. Paroxysmal A-fib ? Rate controlled patient was not started on systemic anticoagulation after he was deemed to be a poor candidate. 7. Dyslipidemia -Patient is on statin therapy, continued at home dose 8. BPH with lower urinary obstructive symptoms ? Patient is on finasteride continued 9. Restless leg syndrome ? Symptomatic treatment with pramipexole. 10. DVT prophylaxis ? Bilateral SCD Time spent in the patient's overall evaluation,decision-making process, review of diagnostic data, adjustment of management, discussion with other providers, nursing nursing and ancillary staff involved in patient's care documentation, 35 minutes Medications at Discharge Home Medications finasteride 5 mg tablet (Proscar) 5 mg PO DAILY PROSTATES 07/18/17 cilostazol 50 mg tablet 50 mg PO BID vasodilator 02/02/22 acetaminophen 500 mg tablet 1,000 mg PO Q6H PRN Pain Score 1-10 07/15/23 atorvastatin 80 mg tablet 80 mg PO DAILY CHOLESTEROL 07/15/23 ascorbic acid (vitamin C) 500 mg tablet 500 mg PO 1200 #1 TAB 07/25/23 ferrous sulfate 325 mg (65 mg iron) tablet (FeroSul) 325 mg PO DAILY@1200 #1 TAB 07/25/23 ammonium lactate 12 % topical cream 1 applic topical QHS 11/30/23 miconazole nitrate 2 % topical powder 1 applic topical BID 11/30/23 mirtazapine 7.5 mg tablet 7.5 mg PO QHS 11/30/23 compression socks, medium #2 ea 12/04/23 gabapentin 100 mg capsule 100 mg PO BIDCM nerve pain #30 caps 12/04/23 tizanidine 2 mg tablet 2 mg PO QHS PRN muscle spasm #30 tabs 12/04/23 vitamin B12 0.5 mg-folic acid 1 mg tablet 1 tab PO DAILY 02/09/24 food supplemt, lactose-reduced 0.08 gram-1.5 kcal/mL oral liquid (Ensure Plus High Protein) 120 ml PO 4X/DAY #0 mL 02/12/24 pantoprazole 40 mg tablet,delayed release (Protonix) 40 mg PO DAILY #60 tabs 02/12/24 sucralfate 1 gram tablet 1 g PO 1HR_ACHS #0 tabs 02/12/24 Physical Exam Narrative GENERAL: cooperative HEENT: Atraumatic; normocephalic EYES; Anicteric, Normal Conjunctiva NECK; supple, normal thyroid, RESPIRATORY: Diminished to auscultation CARDIOVASCULAR: Regular S1 S2, GI: soft, normoactive bowel sounds, : No Renal angle tenderness; EXTREMITIES: No edema, no clubbing, MUSCULOSKELETAL: no muscle wasting NEURO: Awake; no lateralizing signs. PSYCH; Flat affect Skin: Lower extremity wrapped, has chronic Achilles wound Weight / BMI Weight Weight: 81.3 kg Body Mass Index (BMI) 26.4 ABG / Lab / Microbiology Data 02/12/24 05:41 02/12/24 05:41 Laboratory: Laboratory Results - last 24 hr 02/12/24 05:41: WBC 6.1, RBC 3.33 L, Hgb 10.2 L, Hct 32.2 L, MCV 96.7 H, MCH 30.6, MCHC 31.7 L, RDW Std Deviation 53.7 H, RDW Coeff of [place] 15.3 H, Plt Count 233, MPV 10.9, Immature Gran % (Auto) 0.700, Neut % (Auto) 75.5 H, Lymph % (Auto) 9.1 L, Burke % (Auto) 12.5 H, Eos % (Auto) 2.0, Baso % (Auto) 0.2, Absolute Neuts (auto) 4.6, Absolute Lymphs (auto) 0.55 L, Nucleated RBC % 0, Sodium 135 L, Potassium 4.8, Chloride 102, Carbon Dioxide 29.0, Anion Gap 4 L, BUN 27 H, Creatinine 0.76, Estim Creat Clear Calc 69.96, Est GFR (MDRD) Af Amer 126, Est GFR (MDRD) Non-Af 104, BUN/Creatinine Ratio 35.5 H, Glucose 72 L, Calcium 9.4, Total Bilirubin 0.70, AST 28, ALT 29, Alkaline Phosphatase 140 H, Total Protein 7.4, Albumin 2.8 L, Globulin 4.6 H, Albumin/Globulin Ratio 0.6 L Microbiology: Microbiology 02/10/24 17:05 Stool Stool Occult Blood (JENNIFER) - Final Occult Blood Positive Radiography Diagnostic Testing: Radiology Impression Venous Doppler Study 02/07/24 15:59 Interpretation Summary Deep veins of the right lower extremity are patent and compressible segmentally. There is no evidence of right lower extremity deep vein thrombosis. Valvular competence appears intact within the proximal deep venous system on the right . The right great saphenous vein appears patent and compressible segmentally. Ordering Physician: Darrian Rosen Referring Physician: Ankur Medina Performed By: Jacinda Prather RVT D/C Instructions Discharge Diet: No restrictions Discharge Activity: Return to Normal Activity Call your doctor if you observe: Fever of 101 or Higher, Shortness of breath, Fainting spells and Chest pain Meaningful Use Info Meaningful Use Meaningful Use Diagnoses (Choose all that apply): None applicable Ischemic Stroke Statin Dosing Therapy Reference: STATIN DOSE THERAPY REFERENCE: * Patients > 75 years receive moderate or high dose statin therapy. * Patients 75 years or YOUNGER should receive HIGH intensity statin dose unless contraindicated. You will be required to document reason for non-treatment if statin daily dose does not meet guidelines. HIGH DOSE STATIN THERAPY DAILY Atorvastatin > than or = to 40 mg Rosuvastatin > than or = to 20 mg Amlodipine + Atorvastatin > than or = to 2.5/40 mg Ezetimibe + Simvastatin 10/80 mg Simvastatin 80mg Discharge Plan Admission Admit Date/Time: 02/09/24 13:09 Attending Provider: Manoj England Primary Care Provider: Ankur Medina Consulting Providers: Manoj Dominguez; Dayanara Rider Discharge Orders/Prescriptions Prescriptions: New sucralfate 1 gram Tablet 1 g PO 1HR_ACHS Qty: 0 0RF Ensure Plus High Protein 0.08 gram-1.5 kcal/mL Liquid 120 ml PO 4X/DAY Qty: 0 0RF pantoprazole [Protonix] 40 mg tablet,delayed release (DR/EC) 40 mg PO DAILY Qty: 60 0RF Continued finasteride [Proscar] 5 mg tablet 5 mg PO DAILY cilostazol 50 mg tablet 50 mg PO BID atorvastatin 80 mg tablet 80 mg PO DAILY acetaminophen 500 mg Tablet 1,000 mg PO Q6H PRN (Reason: Pain Score 1-10) ascorbic acid (vitamin C) 500 mg Tablet 500 mg PO 1200 Qty: 1 0RF ferrous sulfate [FeroSul] 325 mg (65 mg iron) Tablet 325 mg PO DAILY@1200 Qty: 1 0RF mirtazapine 7.5 mg tablet 7.5 mg PO QHS miconazole nitrate 2 % powder 1 applic topical BID ammonium lactate 12 % cream 1 applic topical QHS tizanidine 2 MG tablet 2 mg PO QHS PRN (Reason: muscle spasm) Qty: 30 0RF gabapentin 100 mg capsule 100 mg PO BIDCM Qty: 30 0RF (DME) compression socks, medium Misc See Rx Instructions .ROUTE Qty: 2 0RF Rx Instructions: As directed vitamin Q84-mmbaj acid 0.5-1 mg tablet 1 tab PO DAILY Referrals / Follow Up: Ankur Medina DO [Primary Care Provider] - Within 2 Weeks Disposition Disposition (needs filled in before D/C Order can be placed): Nursing Home Facility Charges/Coding Visit Charges Inpatient E&M: 19666 Disch Hosp >30min
[2024-02-12 10:58] VITALS: BP 96/47; PULSE 58; RESP 16; TEMP 36.4; O2SAT 97
[2024-02-12] MEDS: Cilostazol 50 MG Tablet PO (11:11)
[2024-02-12] MEDS: Finasteride 5 MG Tablet PO (11:11)
--- NOTE | 2024-02-12 11:14 | PHA.DC.MR.R ---
Pharmacy [place] Med Reconciliation Pharmacy Service has performed discharge medication reconciliation for this patient. The patient's discharge medication list was reviewed for discrepancies and discrepancies were resolved. Medications at Discharge Home Medications finasteride 5 mg tablet (Proscar) 5 mg PO DAILY PROSTATES 07/18/17 cilostazol 50 mg tablet 50 mg PO BID vasodilator 02/02/22 acetaminophen 500 mg tablet 1,000 mg PO Q6H PRN Pain Score 1-10 07/15/23 atorvastatin 80 mg tablet 80 mg PO DAILY CHOLESTEROL 07/15/23 ascorbic acid (vitamin C) 500 mg tablet 500 mg PO 1200 #1 TAB 07/25/23 ferrous sulfate 325 mg (65 mg iron) tablet (FeroSul) 325 mg PO DAILY@1200 #1 TAB 07/25/23 ammonium lactate 12 % topical cream 1 applic topical QHS 11/30/23 miconazole nitrate 2 % topical powder 1 applic topical BID 11/30/23 mirtazapine 7.5 mg tablet 7.5 mg PO QHS 11/30/23 compression socks, medium #2 ea 12/04/23 gabapentin 100 mg capsule 100 mg PO BIDCM nerve pain #30 caps 12/04/23 tizanidine 2 mg tablet 2 mg PO QHS PRN muscle spasm #30 tabs 12/04/23 vitamin B12 0.5 mg-folic acid 1 mg tablet 1 tab PO DAILY 02/09/24 food supplemt, lactose-reduced 0.08 gram-1.5 kcal/mL oral liquid (Ensure Plus High Protein) 120 ml PO 4X/DAY #0 mL 02/12/24 pantoprazole 40 mg tablet,delayed release (Protonix) 40 mg PO DAILY #60 tabs 02/12/24 sucralfate 1 gram tablet 1 g PO 1HR_ACHS #0 tabs 02/12/24
--- NOTE | 2024-02-12 11:30 | CASEMGMT ---
Patient is ready for discharge to [facility]. SW completed a 7000 in [facility]ENS system. Physicians will transport patient. Plan: d/c to [facility] under skilled level of care on a convalescent stay. Physicians will transport patient via wheelchair. Aleksandra BLEDSOE
--- NOTE | 2024-02-12 11:35 | CASEMGMT ---
Discharge Planning Discharge orders, signed med list, and transport time sent to [facility] snf via [facility]. Physicians will transport patient by wheelchair at 12:30. Nursing, SW, patient, and his daughter/POA (Arti) updated. Violeta Dangelo DC Planning Asst.
--- NOTE | 2024-02-12 11:56 | NURSING ---
Report called to Sarina at [facility] living
[2024-02-12] MEDS: Ascorbic Acid 500 MG Tablet PO (12:35)
[2024-02-12] MEDS: Ferrous Sulfate 325 MG Tablet PO (12:35)
--- NOTE | 2024-02-12 14:39 | CHAPLAIN ---
Type of Pastoral Visit ___ Initial Visit _x__ Follow-up Visit ___ On-call Visit ___ General Patient Visit ___ Spiritual Assessment ___ Family Conference ___ Bereavement ___ Rapid Response ___ Code Blue ___ Other (describe below) Pastoral Care Referral From _x__ Patient ___ Family ___ Nurse ___ Physician ___ Creative Services Manager ___ Tile Finisher ___ Other (describe below) Sacrament/Intervention _x__ Active listening ___ Anointing ___ Jewish ___ Bereavement ___ Communion ___ Pooja exploration ___ ___ Life review ___ Prayer ___ Reconciliation ___ Sacrament of Sick _x__ Supportive presence ___ Wedding ___ Other (describe below) Pastoral Comments follow up to patient and his daughter; pt is eating his lunch and states that he will be transported back to ECF soon thereafter; pt is welcoming and presents with hopeful and positive words of improvement and return to ECF; pt speaks affirmation of the support given by this heading and priming tool setter and others during his several stays in the hospital; no other needs
== END 2024-02-12 12:56 | disposition skilled nursing facility (03) | DRG 381 ==
LOC: ED 19:40 → PCU 20:32
PROVIDERS: Internal Medicine; Internal Medicine Gastroenterology; Admitting Provider Internal Medicine; Emergency Provider Emergency Medicine; PCP Family Medicine; Visit Provider Internal Medicine
PROC: 0DJ08ZZ Inspection of Upper Intestinal Tract, Via Natural or Artificial Opening Endoscopic (ICD-10-PCS; CPT 43235; principal; 2024-02-11 16:10)
DX: K22.11 Ulcer of esophagus with bleeding (principal); N13.8 Other obstructive and reflux uropathy; I69.351 Hemiplegia and hemiparesis following cerebral infarction affecting right dominant side; K26.4 Chronic or unspecified duodenal ulcer with hemorrhage; G25.81 Restless legs syndrome; I48.0 Paroxysmal atrial fibrillation; D50.0 Iron deficiency anemia secondary to blood loss (chronic); I73.9 Peripheral vascular disease, unspecified; I10 Essential (primary) hypertension; F32.A Depression, unspecified; L89.620 Pressure ulcer of left heel, unstageable; G62.9 Polyneuropathy, unspecified; I25.10 Atherosclerotic heart disease of native coronary artery without angina pectoris; E78.5 Hyperlipidemia, unspecified; I25.2 Old myocardial infarction; I69.328 Other speech and language deficits following cerebral infarction; N40.1 Benign prostatic hyperplasia with lower urinary tract symptoms; R33.8 Other retention of urine; R32 Unspecified urinary incontinence; R53.81 Other malaise; E66.3 Overweight; Z68.27 Body mass index [BMI] 27.0-27.9, adult; Z87.891 Personal history of nicotine dependence; Z95.5 Presence of coronary angioplasty implant and graft
CPT/HCPCS: 36415; 70496; 70498; 70551; 71045; 80048; 80053; 80061; 81001; 82274; 82306; 82550; 82607; 82728; 83036; 83540; 83550; 83735; 84100; 84439; 84443; 85025; 85610; 85652; 85730; 86140; 92507; 92523; 92526; 92610; 93005; 93306; 93971; 97110; 97162; 97167; 97530; 97535; 97802; 99285; J7030; J7040; J7050; Q9967; A4216; J2405; J2916

== ENCOUNTER 2024-02-25 12:08 | Inpatient (IN) | payer MEDICARE, BC, SELFPAY ==
[2024-02-25] VITALS (11 sets, daily range): BP systolic 90–144; BP diastolic 46–80; PULSE 47–68; RESP 12–18; TEMP 36.1–36.7; O2SAT 93–100; BMI 27.3; BMI 24.7
--- NOTE | 2024-02-25 13:30 | EKG12_ITS ---
Test Reason : ERIKA Blood Pressure : / mmHG Vent. Rate : 053 BPM Atrial Rate : 053 BPM P-R Int : 180 ms QRS Dur : 136 ms QT Int : 456 ms P-R-T Axes : 052 -42 073 degrees QTc Int : 427 ms Sinus bradycardia with Premature atrial complexes Left axis deviation Left ventricular hypertrophy with QRS widening and repolarization abnormality ( R in aVL , [place] pr oduct ) Abnormal ECG Confirmed by MELODY HARTMANN, LORELEI ([id number]), technical editor ESTRELLA CARRILLO ([id number]) on 02/27/2024 1:41:32 PM Referred By: OSCAR Confirmed By:LORELEI OLIVER MD
--- NOTE | 2024-02-25 13:31 | EX.ED.DYSGE1 ---
HPI History of Present Illness Chief Complaint: Palpitations Detail of Chief Complaint: Weakness and dizziness Informant: patient Narrative Narrative: [facility] with complaint of generalized weakness that started this morning. Patient also felt dizzy this morning. Patient was evaluated by [facility] staff and noted to have a low pulse ox in the mid to upper 80s and was placed on nasal cannula O2. Blood pressure was running low in the 80/40 range. He was referred to the emergency department. Patient apparently had multiple episodes like this in the past. Patient was admitted apparently 2 weeks ago and had an ulcer in his small bowel that had to be cauterized. Patient denying any blood in the stool or black stool. He states that his stool is dark but he takes iron and they are so it is always dark. Patient denies chest pain. He denies abdominal pain. He denies shortness of breath. Patient apparently had a negative COVID test yesterday [facility] the [facility]. Patient also complains of difficulty with ambulating and gait that started 5 days ago. He has had similar episodes in the past. Patient currently not anticoagulated. 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) Essential hypertension Peripheral arterial occlusive disease History of basal cell cancer Cervical radiculopathy Stenosis of cervical spine with myelopathy Debility Restless leg syndrome Normochromic normocytic anemia Orthostatic hypotension Depression Urine retention Urinary incontinence Left ventricular hypertrophy BPH (benign prostatic hyperplasia) Pressure ulcer Myelopathy Tobacco dependence in remission Renal cyst Osteoarthritis Microscopic hematuria Eczema Anterolisthesis Leg swelling PAD (peripheral artery disease) Hyperlipidemia Atherosclerotic heart disease of nondalton coronary artery without angina pectoris Paroxysmal atrial fibrillation Dilated aortic root Home Medications ?Medication ?Instructions ?Recorded ?Last Taken ?Type finasteride 5 mg tablet (Proscar) 5 mg PO DAILY PROSTATES 07/18/17 07/16/23 History cilostazol 50 mg tablet 50 mg PO BID vasodilator 02/02/22 07/16/23 History acetaminophen 500 mg tablet 1,000 mg PO Q6H PRN Pain Score 1-10 07/15/23 07/14/23 History atorvastatin 80 mg tablet 80 mg PO DAILY CHOLESTEROL 07/15/23 07/15/23 History ascorbic acid (vitamin C) 500 mg 500 mg PO 1200 #1 TAB 07/25/23 Unknown Rx tablet ferrous sulfate 325 mg (65 mg 325 mg PO DAILY@1200 #1 TAB 07/25/23 Unknown Rx iron) tablet (FeroSul) ammonium lactate 12 % topical cream 1 applic topical QHS 11/30/23 02/06/24 History miconazole nitrate 2 % topical 1 applic topical BID 11/30/23 Unknown History powder mirtazapine 7.5 mg tablet 7.5 mg PO QHS 11/30/23 Unknown History compression socks, medium #2 ea 12/04/23 Unknown Rx gabapentin 100 mg capsule 100 mg PO BIDCM nerve pain #30 caps 12/04/23 07/16/23 Rx tizanidine 2 mg tablet 2 mg PO QHS PRN muscle spasm #30 12/04/23 05/14/23 Rx tabs vitamin B12 0.5 mg-folic acid 1 mg 1 tab PO DAILY 02/09/24 02/07/24 History tablet food supplemt, lactose-reduced 120 ml PO 4X/DAY #0 mL 02/12/24 Unknown Rx 0.08 gram-1.5 kcal/mL oral liquid (Ensure Plus High Protein) pantoprazole 40 mg tablet,delayed 40 mg PO DAILY #60 tabs 02/12/24 Unknown Rx release (Protonix) sucralfate 1 gram tablet 1 g PO 1HR_ACHS #0 tabs 02/12/24 Unknown Rx Allergy/AdvReac Type Severity Reaction Status Date / Time No Known Allergies Allergy Verified 02/25/24 12:25 Family History Mother CHF (congestive heart failure) Heart disease Hypertension Father COPD (chronic obstructive pulmonary disease) Surgical History S/P debridement History of vascular surgery History of coronary artery stent placement (01/11/16) H/O laminectomy History of knee surgery S/P rotator cuff repair History of pilonidal cyst Social History household members: none housing: house number of children: 5 current occupation: retired current occupational exposures/hazards: No history of recent travel: No Smoking Status: Former smoker how long ago did patient quit smokin alcohol intake: current alcohol intake frequency: holidays/special occasions only details: occasional,holiday substance use type: does not use caffeine: Yes Type: coffee Number of servings: 10 what type of physical activity do you participate in: bicycling frequency: 1-2 times per week duration: 15-30 minutes/day seatbelt use: always do you feel safe at home: Yes ROS ROS ED Review of Systems ROS Unobtainable: other Constitutional Constitutional ED: Reports lethargy; Denies chills, fever(s), sweats or weight loss Eyes Eyes: Denies blurry vision, change in vision or diplopia ENT ENT ED: Denies rhinorrhea or sore throat Cardiovascular Cardiovascular: Denies chest pain, orthopnea or racing heartbeat Respiratory/Chest Respiratory/Chest: Denies cough, dyspnea, dyspnea on exertion, orthopnea or sputum Gastrointestinal Gastrointestinal: Denies abdominal pain, diarrhea, nausea or vomiting Genitourinary Genitourinary ED: Denies dysuria, hematuria or urinary frequency Musculoskeletal Musculoskeletal: Denies arthralgias, back pain, myalgias or neck pain Integumentary Denies abscess, Abrasions or rash Neurologic Neurologic: Reports weakness and other Details: Dizziness, difficulty with gait ; Denies headache(s) Psychiatric Psychiatric: Denies anxiety, depression or suicidal thoughts Endocrine Endocrinology: Denies polydipsia, polyphagia or polyuria Hematologic/Lymphatic Hematologic/Lymphatic: Denies easy bleeding, easy bruising or lymphadenopathy Allergic/Immunologic Allergic/Immunologic ED: Denies mouth swelling, tongue swelling or urticaria EXAM Physical Exam Const Vital Signs: 02/25/24 12:11 02/25/24 13:09 02/25/24 14:00 Temperature 98.0 F Temperature Source Oral Pulse Rate 55 L 49 L 53 L Respiratory Rate 13 13 12 Blood Pressure 97/54 L 90/56 L 117/56 L Blood Pressure Mean 68 67 76 Pulse Ox 100 100 100 Oxygen Delivery Method Nasal Cannula Room Air Nasal Cannula Oxygen Flow Rate (L/min) 3 2.5 02/25/24 15:00 Temperature Temperature Source Pulse Rate 47 L Respiratory Rate 14 Blood Pressure 104/59 L Blood Pressure Mean 74 Pulse Ox 100 Oxygen Delivery Method Nasal Cannula Oxygen Flow Rate (L/min) Positive well nourished and well developed General Appearance ED: well developed and NAD HEENT Reports TM's clear and moist mucous membranes normocephalic and atraumatic; Negative for trauma or tenderness Tympanic Membrane ED: Yes TM's clear Eyes PERRL and EOMs intact bilaterally General Eye ED: Negative for pale conjunctiva or scleral icterus Neck no lymphadenopathy, supple and no JVD General: Negative for tenderness Chest Wall inspection of chest normal and palpation of chest normal Chest: Negative for tenderness Resp normal respiratory effort and clear to auscultation bilaterally Effort and Inspection: Negative for respiratory distress or pain with movement Auscultation: Negative for rhonchi, wheezes or diminished lung sounds Cardio regular rate, regular rhythm, S1 normal heart sound, S2 normal heart sound and no murmurs Peripheral Pulses: pulses 2+ throughout GI normal to inspection, nondistended, normoactive bowel sounds, soft to palpation, non-tender, non-distended and no masses Back/Spine no CVA tenderness and no thoracic nor lumbar tenderness Extremity normal to inspection General Extremety ED: Negative for edema General Extremity: Negative for edema Neuro oriented x3, CN's II-XII intact bilaterally, no sensory deficits noted and gait normal Neuro Narrative: No focal deficits noted on exam. GCS 15. No facial droop. Sensorium / Orientation: awake, alert, oriented to person, oriented to place and oriented to time Motor Exam: strength 5/5 throughout and strength abnormal Psych mental status grossly normal Skin no rashes or lesions noted and no wounds MDM MDM MDM Narrative Medical decision making narrative: Patient brought to the emergency department by [facility] at request of nurse practitioner that evaluated him there. He has history of recent upper GI hemorrhage and cautery of esophageal ulcer as well as duodenal ulcer. He denies abdominal pain. Denies vomiting. He said some difficulty walking over the last 5 days. Generally felt weak this morning and dizzy. Noted to have low blood pressure and noted to be hypoxic [facility] therefore referred to the ER for evaluation. Patient denies any chest pain or abdominal pain. He has had no hematemesis or change in stool. IV line established. Patient placed on a electronic device monitor. Patient 2 L nasal cannula O2. EKG obtained showed a sinus rhythm with ventricular rate of 53 bpm with left ventricular hypertrophy. CBC with differential recommend 4.9 with hemoglobin 9.9 and platelet count of of 301. Chemistries unremarkable. BUN 21 creatinine 0.8. LFTs unremarkable. Urinalysis was normal. CT scan of the brain without contrast showed chronic involutional changes. 1 view chest x-ray was essentially unremarkable. Question some atelectasis in the left lower lobe. Patient ordered normal saline fluid bolus 1 L. Blood pressure improved into the low 100 systolic. Case discussed with hospitalist to evaluate patient for admission. His D-dimer when corrected for age was normal at 0.8. Lab Data Attestation: I reviewed the patient's lab results. Labs: Laboratory Results - last 24 hr 02/25/24 02/25/24 13:43 13:48 WBC 4.9 RBC 3.25 L Hgb 9.9 L Hct 30.7 L MCV 94.5 H MCH 30.5 MCHC 32.2 RDW Std Deviation 49.5 H RDW Coeff of [place] 14.4 Plt Count 301 MPV 10.9 Immature Gran % (Auto) 0.400 Neut % (Auto) 72.8 H Lymph % (Auto) 12.5 L Crockett % (Auto) 12.9 H Eos % (Auto) 1.2 Baso % (Auto) 0.2 Absolute Neuts (auto) 3.5 Absolute Lymphs (auto) 0.61 L Nucleated RBC % 0 D-Dimer Quant (PE/DVT) 0.80 H* Sodium 138 Potassium 4.3 Chloride 102 Carbon Dioxide 31.0 Anion Gap 5 BUN 21 H Creatinine 0.80 Estim Creat Clear Calc 69.96 Est GFR (MDRD) Af Amer 118 Est GFR (MDRD) Non-Af 98 BUN/Creatinine Ratio 26.2 H Glucose 69 L Lactic Acid 0.9 Calcium 8.8 Total Bilirubin 0.60 AST 22 ALT 23 Alkaline Phosphatase 145 H Troponin I High Sens 17 Total Protein 7.0 Albumin 2.9 L Globulin 4.1 Albumin/Globulin Ratio 0.7 L Urine Color Straw Urine Clarity Clear Urine pH 6.5 Ur Specific [place]art 1.005 Urine Protein Negative Urine Glucose (UA) Normal Urine Ketones Negative Urine Occult Blood Negative Urine Nitrite Negative Urine Bilirubin Negative Urine Urobilinogen Normal Ur Leukocyte Esterase Negative Urine RBC 0 SEEN Urine WBC 0 SEEN Ur Squamous Epith Cells 0 SEEN Urine Bacteria 0 SEEN Urine Mucus 0 SEEN Radiography Diagnostic Testing: Clinical Impression(s) from Imaging Studies Brain CT 02/25/24 13:34 IMPRESSION: No acute intracranial process identified. Chronic involutional and white matter changes. Electronically Signed: Rosette Ramirez MD at 14:39 EDT , Chest X-Ray 02/25/24 13:35 IMPRESSION: Mild left basilar opacity, which may represent atelectasis or inflammation. Limited evaluation of the lung apices. Electronically Signed: Rosette Ramirez MD at 14:26 EDT , 1 view chest x-ray obtained interpreted by myself as no evidence of infiltrate or pneumothorax or acute disease process. Radiology felt there was a mild left basilar opacity which may represent atelectasis or inflammation. EKG Initial EKG: Attestation: I personally reviewed and interpreted this EKG as follows: Comments: Sinus bradycardia with ventricular rate of 53 bpm with left intraocular hypertrophy Discharge Plan Triage Chief Complaint: Palpitations ED Provider: Yamile Duque Dx/Rx/DC Orders Clinical Impression: Weakness, Hypotension, Hypoxemia Prescriptions: No Action finasteride [Proscar] 5 mg tablet 5 mg PO DAILY cilostazol 50 mg tablet 50 mg PO BID atorvastatin 80 mg tablet 80 mg PO DAILY acetaminophen 500 mg Tablet 1,000 mg PO Q6H PRN (Reason: Pain Score 1-10) ascorbic acid (vitamin C) 500 mg Tablet 500 mg PO 1200 Qty: 1 0RF ferrous sulfate [FeroSul] 325 mg (65 mg iron) Tablet 325 mg PO DAILY@1200 Qty: 1 0RF mirtazapine 7.5 mg tablet 7.5 mg PO QHS miconazole nitrate 2 % powder 1 applic topical BID ammonium lactate 12 % cream 1 applic topical QHS tizanidine 2 MG tablet 2 mg PO QHS PRN (Reason: muscle spasm) Qty: 30 0RF gabapentin 100 mg capsule 100 mg PO BIDCM Qty: 30 0RF (DME) compression socks, medium Misc See Rx Instructions .ROUTE Qty: 2 0RF Rx Instructions: As directed vitamin H25-ajdqr acid 0.5-1 mg tablet 1 tab PO DAILY sucralfate 1 gram Tablet 1 g PO 1HR_ACHS Qty: 0 0RF Ensure Plus High Protein 0.08 gram-1.5 kcal/mL Liquid 120 ml PO 4X/DAY Qty: 0 0RF pantoprazole [Protonix] 40 mg tablet,delayed release (DR/EC) 40 mg PO DAILY Qty: 60 0RF Primary Care Provider: Ankur Medina Referrals: Ankur Medina DO [Primary Care Provider] - Print Language: Kazakh Disposition Disposition: Acute Care Hospital [facility]
--- NOTE | 2024-02-25 13:34 | CT_ITS ---
HISTORY: Dizziness, difficulty with ambulation. TECHNIQUE: Multiple axial images were obtained of the head without intravenous contrast. A radiation dose optimization technique was used for this scan. 273 images. COMPARISON: 02/07/2024. FINDINGS: Artifact from suboptimal positioning and kyphosis. BRAIN PARENCHYMA: Multiple foci and zones of low attenuation in the bilateral cerebral white matter compatible with chronic small vessel ischemic gliosis. No acute intra-axial hemorrhage identified. CSF SPACES: Generalized volume loss. No midline shift or other significant mass effect. No acute extra-axial hemorrhage seen. OTHER: Intact calvarium. No significant air fluid levels in the paranasal sinuses or mastoid air cells. Bilateral lens resections. CT/Brain/Head without Contrast IMPRESSION: No acute intracranial process identified. Chronic involutional and white matter changes. Electronically Signed: Rosette Ramirez MD at 14:39 EDT ,
--- NOTE | 2024-02-25 13:35 | RAD_ITS ---
HISTORY: hypocemia. TECHNIQUE: XR Chest 1 View. COMPARISON: 02/07/2024. FINDINGS: CARDIOMEDIASTINAL BORDERS: Cardiac silhouette within normal limits in size. Mediastinal contour unremarkable with calcification of the aortic knob. LUNGS: Limited evaluation of the lung apices and upper mediastinum due to positioning. Mild left basilar opacity. PLEURA: No pleural effusion or pneumothorax seen. OSSEOUS STRUCTURES: Postoperative changes of the left shoulder. Degenerative change. RAD/Chest 1 View (Portable) IMPRESSION: Mild left basilar opacity, which may represent atelectasis or inflammation. Limited evaluation of the lung apices. Electronically Signed: Rosette Ramirez MD at 14:26 EDT ,
[2024-02-25] MEDS: 0.9% Normal Saline (1000mL) 1,000 ML 1000 ML IV (13:45)
[2024-02-25 13:53] LABS: Absolute Lymphocyte Count 0.61 X10^3/uL (0.83-4.51); Absolute Neutrophil Count 3.5 X10^3/uL (2.0-7.7); Basophil# 0.01 X10^3/uL; Basophil% 0.2 % (0-1); Eosinophil# 0.06 X10^3/uL; Eosinophils% 1.2 % (0-5); Hematocrit 30.7 % (40-54); Hemoglobin 9.9 g/dL (13.0-16.5); Lymphocyte # 0.61 X10^3/ul (0.83-4.51); Lymphocyte % 12.5 % (19-41); Mean Corp Hgb Conc 32.2 g/dL (32-36); Mean Corpuscular Hgb 30.5 pg (27.0-32.0); Mean Corpuscular Volume 94.5 fL (80-94); Mean Platelet Vol. 10.9 fl (6.2-12.0); Monocyte# 0.63 X10^3/uL; Monocyte% 12.9 % (0-10); NRBC Flagged by Analyzer 0 % (0-5); Neutrophil # 3.54 X10^3/uL (2.7-7.7); Neutrophil % 72.8 % (47-70); Platelet Count 301 K/mm3 (150-450); RBC Distribution Width CV 14.4 % (11.6-14.6); RBC Distribution Width SD 49.5 fl (35.1-43.9); Red Blood Count 3.25 M/mm3 (4.6-6.2); White Blood Count 4.9 K/mm3 (4.4-11.0)
[2024-02-25 13:54] LABS: Bacteria 0 SEEN /hpf (None Seen); Mucous, Urine 0 SEEN /hpf (<or=2+); Red Blood Cells-Urine 0 SEEN /hpf (0-5); Squamous Epithelial Cells - UA 0 SEEN /hpf (0-5); White Blood Cells 0 SEEN /hpf (0-5)
[2024-02-25 13:57] LABS: Color, Urine Straw (Yellow); Glucose, Dipstick Normal (Normal); Ketone-Dipstick Negative (Negative); Leukocyte Esterase-Dipstick Negative /ul (Negative); Nitrite-Dipstick Negative (Negative); Occult Blood-Urine Negative /ul (Negative); Protein-Dipstick Negative (Negative); Specific Gravity, Urine 1.005 (1.002-1.030); Urine Bilirubin Dipstick Negative (Negative); Urine Clarity Clear (Clear); Urine Urobilinogen Normal (Normal); Urine pH 6.5 (5.0 - 8.0)
[2024-02-25 14:11] LABS: ALB/GLOB Ratio 0.7 RATIO (0.9-2.4); AST(SGOT) 22 U/L (15-37); Alanine Aminotransfer ALT/SGPT 23 U/L (16-61); Albumin, Serum 2.9 g/dL (3.2-5.0); Alkaline Phosphatase 145 U/L (45-117); Anion Gap 5 (5-15); BUN 21 mg/dL (7-18); BUN/Creat Ratio 26.2 RATIO (10-20); Calcium,Total 8.8 mg/dL (8.5-10.1); Chloride 102 mmol/L (98-107); EST Glomerular Filtration Rate 98 mL/min (>60); Est Glom Filt Rate - Afr Amer 118 mL/min (>60); Estimated Creatinine Clearance 69.96 ml/min; Globulin 4.1 g/dL (2.2-4.2); Glucose 69 mg/dL (74-106); Potassium 4.3 mmol/L (3.5-5.1); Sodium Level 138 mmol/L (136-145); Troponin-I HS 17 pg/mL (3.0-78.0)
[2024-02-25 14:18] LABS: Lactic Acid 0.9 mmol/L (0.4-1.9)
--- NOTE | 2024-02-25 16:00 | HP.PCM.HOS_ITS ---
HPI - General General Date of Admission: 02/25/24 Date of Service: 02/25/24 Chief Complaint: Generalized weakness. HPI Narrative SARA SAHA, is a 83 M with a past medical history as outlined was admitted through the ED on 02/25/2024 with complaint of weakness and dizziness. He was brought in from his senior living via EMS. Patient had complained of dizziness on the morning of admission and also said he had generalized weakness. His vitals were checked by the senior living staff and was noted the patient was hypotensive with blood pressure down to 80/40. He was also hypoxic and so was placed on oxygen by nasal cannula, which is pulse ox reportedly been in the mid to upper 80s. He was admitted and discharged about 2 weeks prior to admission with a discharge date being 02/12/2024 and was managed for acute on chronic anemia and had EGD which showed an ulcer in the small bowel which was cauterized. Daughter said that last week patient was ambulating with therapy in the senior living but today he felt too weak to even walk. He denied any fever or chills, nausea or vomiting, palpitations or any other symptoms. Review of systems otherwise negative. VItals in the ED at time of review showed BP of 127/69, [place] of 56, RR of 13 and temp of 97.6F. He was saturating at 100% on 2L of oxygen. CBC showed wbc of 4.9, Hb of 9.9, platelets of 301 and D dimer of 0.8. Chemistry showed sodium of 138, potassium of 4.3 and bicarb of 31 and Cr of 0.8. Urinalysis showed no evidence of UTI. CXR showed mild left basilar opacity, which may represent atelectasis or inflammation and limited evaluation of the lung apices. CT brain showed no acute intracranial pathology. He is being admitted to be managed for hypotension and dizziness, as well as debility and weakness. 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) Essential hypertension Peripheral arterial occlusive disease History of basal cell cancer Cervical radiculopathy Stenosis of cervical spine with myelopathy Debility Restless leg syndrome Normochromic normocytic anemia Orthostatic hypotension Depression Urine retention Urinary incontinence Left ventricular hypertrophy BPH (benign prostatic hyperplasia) Pressure ulcer Myelopathy Tobacco dependence in remission Renal cyst Osteoarthritis Microscopic hematuria Eczema Anterolisthesis Leg swelling PAD (peripheral artery disease) Hyperlipidemia Atherosclerotic heart disease of [place] coronary artery without angina pectoris Paroxysmal atrial fibrillation Dilated aortic root Home Medications ?Medication ?Instructions ?Recorded ?Last Taken ?Type finasteride 5 mg tablet (Proscar) 5 mg PO DAILY PROSTATES 07/18/17 02/25/24 History cilostazol 50 mg tablet 50 mg PO BID vasodilator 02/02/22 02/25/24 History acetaminophen 500 mg tablet 1,000 mg PO Q6H PRN Pain Score 1-10 07/15/23 02/25/24 History ascorbic acid (vitamin C) 500 mg 500 mg PO 1200 #1 TAB 07/25/23 02/24/24 Rx tablet ferrous sulfate 325 mg (65 mg 325 mg PO DAILY@1200 #1 TAB 07/25/23 02/24/24 Rx iron) tablet (FeroSul) ammonium lactate 12 % topical cream 1 applic topical QHS 11/30/23 02/24/24 History mirtazapine 7.5 mg tablet 7.5 mg PO QHS 11/30/23 02/24/24 History compression socks, medium #2 ea 12/04/23 Unknown Rx gabapentin 100 mg capsule 100 mg PO BIDCM nerve pain #30 caps 12/04/23 02/25/24 Rx tizanidine 2 mg tablet 2 mg PO QHS PRN muscle spasm #30 12/04/23 02/24/24 Rx tabs vitamin B12 0.5 mg-folic acid 1 mg 1 tab PO DAILY 02/09/24 02/25/24 History tablet pantoprazole 40 mg tablet,delayed 40 mg PO DAILY #60 tabs 02/12/24 02/25/24 Rx release (Protonix) atorvastatin 20 mg tablet 20 mg PO QHS 02/25/24 02/24/24 History hydrocortisone 2.5 % topical cream 1 applic topical BID 02/25/24 02/24/24 History nystatin 100,000 unit/gram topical 1 applic topical BID 02/25/24 02/24/24 History ointment sucralfate 100 mg/mL oral 1 g PO 4X/DAY 02/25/24 Unknown History suspension (Carafate) Allergy/AdvReac Type Severity Reaction Status Date / Time No Known Allergies Allergy Verified 02/25/24 12:25 Family History Mother CHF (congestive heart failure) Heart disease Hypertension Father COPD (chronic obstructive pulmonary disease) Surgical History S/P debridement History of vascular surgery History of coronary artery stent placement (01/11/16) H/O laminectomy History of knee surgery S/P rotator cuff repair History of pilonidal cyst Social History household members: none housing: house number of children: 5 current occupation: retired current occupational exposures/hazards: No history of recent travel: No Smoking Status: Former smoker how long ago did patient quit smokin alcohol intake: current alcohol intake frequency: holidays/special occasions only details: occasional,holiday substance use type: does not use caffeine: Yes Type: coffee Number of servings: 10 what type of physical activity do you participate in: bicycling frequency: 1-2 times per week duration: 15-30 minutes/day seatbelt use: always do you feel safe at home: Yes ROS Constitutional Constitutional: Denies anorexia, chills, fatigue, fever(s), malaise or weakness Eyes Eyes: Denies change in vision ENT HEENT: Denies dysphagia, headache(s), nasal congestion or sore throat Cardiovascular Cardiovascular: Denies chest pain, dyspnea on exertion, edema, lightheadedness, orthopnea, palpitations, paroxysmal nocturnal dyspnea, rapid heart rate or syncope Respiratory/Chest Respiratory/Chest: Denies cough, dyspnea, productive cough, shortness of breath at rest or shortness of breath with exertion Gastrointestinal Gastrointestinal: Denies abdominal pain, constipation, diarrhea, dyspepsia, nausea or vomiting Genitourinary Genitourinary: Denies burning urination or dysuria Musculoskeletal Musculoskeletal: Denies joint stiffness Neurologic Neurologic: Denies confusion, dizziness, headache(s) or syncope Psychiatric Psychiatric: Denies anxiety Vital Signs Vital Signs Vital Signs: 02/25/24 12:11 02/25/24 13:09 02/25/24 14:00 Temperature 98.0 F Temperature Source Oral Pulse Rate 55 L 49 L 53 L Respiratory Rate 13 13 12 Blood Pressure 97/54 L 90/56 L 117/56 L Blood Pressure Mean 68 67 76 Pulse Ox 100 100 100 Oxygen Delivery Method Nasal Cannula Room Air Nasal Cannula Oxygen Flow Rate (L/min) 3 2.5 02/25/24 15:00 Temperature Temperature Source Pulse Rate 47 L Respiratory Rate 14 Blood Pressure 104/59 L Blood Pressure Mean 74 Pulse Ox 100 Oxygen Delivery Method Nasal Cannula Oxygen Flow Rate (L/min) Weight Weight: 185 lb 3.013 oz Body Mass Index (BMI) 27.3 Physical Exam Const alert, oriented x3 and no apparent distress Constitutional Narrative: frail and weak General Appearance: cooperative HEENT normocephalic, head/scalp atraumatic and oropharynx normal HEENT Narrative: dry oral mucosal membranes Eyes PERRL, EOMs intact bilaterally and conjunctivae normal Neck no lymphadenopathy and supple Resp normal respiratory effort, no retractions, no use of accessory muscles and clear to auscultation bilaterally Cardio regular rate, regular rhythm, S1 normal heart sound, S2 normal heart sound and no murmurs GI normal to inspection, nondistended, normoactive bowel sounds, soft to palpation, non-tender and non-distended Extremity normal to inspection, full ROM and no clubbing, cyanosis or edema Neuro oriented x3, CN's II-XII intact bilaterally, moves all extremities and no focal motor deficits Sensorium / Orientation: awake and alert Motor Exam: strength 5/5 throughout Psych affect normal Results Lab / Micro Data 02/25/24 13:43 02/25/24 13:43 Labs: Laboratory Results - last 24 hr 02/25/24 13:43: WBC 4.9, RBC 3.25 L, Hgb 9.9 L, Hct 30.7 L, MCV 94.5 H, MCH 30.5, MCHC 32.2, RDW Std Deviation 49.5 H, RDW Coeff of [place] 14.4, Plt Count 301, MPV 10.9, Immature Gran % (Auto) 0.400, Neut % (Auto) 72.8 H, Lymph % (Auto) 12.5 L, [place] % (Auto) 12.9 H, Eos % (Auto) 1.2, Baso % (Auto) 0.2, Absolute Neuts (auto) 3.5, Absolute Lymphs (auto) 0.61 L, Nucleated RBC % 0, D-Dimer Quant (PE/DVT) 0.80 H*, Sodium 138, Potassium 4.3, Chloride 102, Carbon Dioxide 31.0, Anion Gap 5, BUN 21 H, Creatinine 0.80, Estim Creat Clear Calc 69.96, Est GFR (MDRD) Af Amer 118, Est GFR (MDRD) Non-Af 98, BUN/Creatinine Ratio 26.2 H, G lucose 69 L, Lactic Acid 0.9, Calcium 8.8, Total Bilirubin 0.60, AST 22, ALT 23, Alkaline Phosphatase 145 H, Troponin I High Sens 17, Total Protein 7.0, Albumin 2.9 L, Globulin 4.1, Albumin/Globulin Ratio 0.7 L 02/25/24 13:48: Urine Color Straw, Urine Clarity Clear, Urine pH 6.5, Ur Specific [place] 1.005, Urine Protein Negative, Urine Glucose (UA) Normal, Urine Ketones Negative, Urine Occult Blood Negative, Urine Nitrite Negative, Urine Bilirubin Negative, Urine Urobilinogen Normal, Ur Leukocyte Esterase Negative, Urine RBC 0 SEEN, Urine WBC 0 SEEN, Ur Squamous Epith Cells 0 SEEN, Urine Bacteria 0 SEEN, Urine Mucus 0 SEEN Micro: Microbiology 02/25/24 13:48 Mucosa - Nose SARS-CoV-2, Influenza & RSV (PCR) - Final Imaging Radiology Impression Brain CT 02/25/24 13:34 IMPRESSION: No acute intracranial process identified. Chronic involutional and white matter changes. Electronically Signed: Rosetet Ramirez MD at 14:39 EDT Reading Location ID and State: [employer] [facility] / [place] Tel , Service support , Chest X-Ray 02/25/24 13:35 IMPRESSION: Mild left basilar opacity, which may represent atelectasis or inflammation. Limited evaluation of the lung apices. Electronically Signed: Rosette Ramirez MD at 14:26 EDT , Assessment & Plan Assessment/Plan (1) Hypotension: (2) Generalized weakness: PLAN: Plan #Debility and weakness due to hypotension * admit to med surg * Hydrated with IV fluid normal saline at 125 cc/h. * Check orthostatic blood pressure. Will hold any rate limiting medications due to bradycardia. * Consult PT OT. Fall precautions. * Daughter states that this weakness and debility has been episodic. Will be times where he will be doing well and working with therapy in the bedside where he will be very weak and debilitated. She states has been told in the past that he may have polymyalgia rheumatica versus polymyositis and told that he needs a muscle biopsy. Patient and daughter counseled that he would benefit from an in person neurology evaluation once he is stable and leaves the hospital for a more extensive neurological evaluation to be done. * fall precautions * #Hypotension: * BP was done in the 80s over 40s. Hold all BP meds. * Hold flomax also as well as cilostazol which can contribute to hypotension.Hydrate with IV fluids as above. * Check orthostatics. #Bradycardia: * Patient also noted to be mildly bradycardic. * This could be contributing to his weakness and hypotension as well. * All BP meds and bradycardia meds held. * EKG showed sinus bradycardia. * Will monitor closely. 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 #Peripheral artery disease: Has chronic pressure ulcers of the left Achilles heel. Wound care consult. #Hyperlipidemia: Statin #CAD s/p stents: Stable #Paroxysmal A-fib: Not anticoagulated due to history of GI bleed and increased fall risk. #History of peripheral neuropathy: On gabapentin #Restless leg syndrome: On ropinirole DVT prophylaxis: SCDs CODE STATUS: Full code * Patient counseled extensively about different types of CODE STATUS including full code, DNR CCA and DNR CCA. Patient elects to be full code. * Total [id number] time 16 minutes. Charges/Coding Visit Charges Inpatient E&M: 31242 Init Hosp L3 Procedures Hospitalists Procedures: 34011 Advncd Care Plan 30 Min
[2024-02-25] MEDS: 0.9% Normal Saline (1000mL) 1,000 ML 125 ML IV (19:45)
[2024-02-25] MEDS: 0.9% Saline Lock 10 ML Syringe IV (19:45)
[2024-02-25] MEDS: tiZANidine HCl 2 MG Tablet PO (21:27)
[2024-02-25] MEDS: Acetaminophen 325 MG Tablet 650 MG PO (21:27)
[2024-02-25] MEDS: Mirtazapine 15 MG Tablet 7.5 MG PO (21:27)
[2024-02-25] MEDS: Atorvastatin Calcium 20 MG Tablet PO (21:27)
[2024-02-25 22:19] LABS: BNP,B-Type NATRIURETIC PEPTIDE 59.2 pg/mL (0-100)
[2024-02-25] MEDS: Ammonium Lactate 225 gm Bottle 1 APPLIC TOPICAL (22:30)
[2024-02-25] MEDS: Sucralfate 1 GM Tablet PO (22:30)
[2024-02-25] MEDS: Gabapentin 100 MG Capsule PO (23:10)
[2024-02-26] MEDS: oxyCODONE 5 MG Tablet PO (02:33)
[2024-02-26] MEDS: 0.9% Normal Saline (1000mL) 1,000 ML 125 ML IV (02:37)
[2024-02-26 03:01] VITALS: BP 113/55; PULSE 58; RESP 16; TEMP 36.2; O2SAT 98
[2024-02-26 05:56] LABS: Absolute Lymphocyte Count 0.69 X10^3/uL (0.83-4.51); Absolute Neutrophil Count 2.7 X10^3/uL (2.0-7.7); Basophil# 0.01 X10^3/uL; Basophil% 0.2 % (0-1); Eosinophil# 0.07 X10^3/uL; Eosinophils% 1.7 % (0-5); Hematocrit 28.8 % (40-54); Hemoglobin 9.4 g/dL (13.0-16.5); Lymphocyte # 0.69 X10^3/ul (0.83-4.51); Lymphocyte % 17.1 % (19-41); Mean Corp Hgb Conc 32.6 g/dL (32-36); Mean Platelet Vol. 10.6 fl (6.2-12.0); Monocyte# 0.55 X10^3/uL; Monocyte% 13.6 % (0-10); NRBC Flagged by Analyzer 0 % (0-5); Neutrophil # 2.71 X10^3/uL (2.7-7.7); Neutrophil % 67.2 % (47-70); Platelet Count 240 K/mm3 (150-450); RBC Distribution Width CV 14.5 % (11.6-14.6); RBC Distribution Width SD 50.1 fl (35.1-43.9); Red Blood Count 3.03 M/mm3 (4.6-6.2)
[2024-02-26] MEDS: Sucralfate 1 GM Tablet PO ×4 (06:18→21:28)
[2024-02-26 06:56] LABS: Anion Gap 3 (5-15); BUN 19 mg/dL (7-18); BUN/Creat Ratio 32.5 RATIO (10-20); Calcium,Total 8.5 mg/dL (8.5-10.1); Chloride 108 mmol/L (98-107); Creatinine, Serum 0.58 mg/dL (0.70-1.30); EST Glomerular Filtration Rate 141 mL/min (>60); Est Glom Filt Rate - Afr Amer 170 mL/min (>60); Estimated Creatinine Clearance 69.96 ml/min; Glucose 62 mg/dL (74-106); Potassium 4.2 mmol/L (3.5-5.1); Sodium Level 140 mmol/L (136-145)
[2024-02-26 07:58] VITALS: O2SAT 94
--- NOTE | 2024-02-26 08:02 | PCM.PN.HOSP ---
Reason for Visit Reason for Visit: Diagnoses Hypotension, unspecified (02/25/24) Weakness (02/25/24) Subjective Subjective Patient is an 83-year-old gentleman admitted with progressive generalized weakness. Found to be bradycardic with hypotension. Admitted to monitored bed for further management Objective Data Objective Data Vital Signs: Vital Signs Temp Pulse Resp BP Pulse Ox O2 Del Method O2 Flow Rate 97.2 F L 58 L 16 113/55 L 94 Room Air 2.5 02/26/24 03:01 02/26/24 03:01 02/26/24 03:01 02/26/24 03:01 02/26/24 07:58 02/26/24 07:58 02/25/24 14:00 Oxygen Flow Rate (L/min) 2.5 Oxygen Delivery Method Room Air Weight: 76.1 kg Body Mass Index (BMI) 24.7 Intake & Output: Intake and Output for Last 24 Hours 02/24/24 02/25/24 02/26/24 23:59 23:59 23:59 Intake Total 1000 / 1000 858.33 / 858.33 Output Total 1200 / 1200 Balance 1000 / 1000 -341.67 / -341.67 Lab / Micro Data 02/26/24 05:15 02/26/24 05:11 Labs: Laboratory Results - last 24 hr 02/25/24 13:43: WBC 4.9, RBC 3.25 L, Hgb 9.9 L, Hct 30.7 L, MCV 94.5 H, MCH 30.5, MCHC 32.2, RDW Std Deviation 49.5 H, RDW Coeff of [place] 14.4, Plt Count 301, MPV 10.9, Immature Gran % (Auto) 0.400, Neut % (Auto) 72.8 H, Lymph % (Auto) 12.5 L, [place] % (Auto) 12.9 H, Eos % (Auto) 1.2, Baso % (Auto) 0.2, Absolute Neuts (auto) 3.5, Absolute Lymphs (auto) 0.61 L, Nucleated RBC % 0, D-Dimer Quant (PE/DVT) 0.80 H*, Sodium 138, Potassium 4.3, Chloride 102, Carbon Dioxide 31.0, Anion Gap 5, BUN 21 H, Creatinine 0.80, Estim Creat Clear Calc 69.96, Est GFR (MDRD) Af Amer 118, Est GFR (MDRD) Non-Af 98, BUN/Creatinine Ratio 26.2 H, Glucose 69 L, Lactic Acid 0.9, Calcium 8.8, Total Bilirubin 0.60, AST 22, ALT 23, Alkaline Phosphatase 145 H, Troponin I High Sens 17, B-Natriuretic Peptide 59.2, Total Protein 7.0, Albumin 2.9 L, Globulin 4.1, Albumin/Globulin Ratio 0.7 L 02/25/24 13:48: Urine Color Straw, Urine Clarity Clear, Urine pH 6.5, Ur Specific [place] 1.005, Urine Protein Negative, Urine Glucose (UA) Normal, Urine Ketones Negative, Urine Occult Blood Negative, Urine Nitrite Negative, Urine Bilirubin Negative, Urine Urobilinogen Normal, Ur Leukocyte Esterase Negative, Urine RBC 0 SEEN, Urine WBC 0 SEEN, Ur Squamous Epith Cells 0 SEEN, Urine Bacteria 0 SEEN, Urine Mucus 0 SEEN 02/26/24 05:11: Sodium 140, Potassium 4.2, Chloride 108 H, Carbon Dioxide 29.0, Anion Gap 3 L, BUN 19 H, Creatinine 0.58 L, Estim Creat Clear Calc 69.96, Est GFR (MDRD) Af Amer 170, Est GFR (MDRD) Non-Af 141, BUN/Creatinine Ratio 32.5 H, Glucose 62 L, Calcium 8.5 02/26/24 05:15: WBC 4.0 L, RBC 3.03 L, Hgb 9.4 L, Hct 28.8 L, MCV 95.0 H, MCH 31.0, MCHC 32.6, RDW Std Deviation 50.1 H, RDW Coeff of [place] 14.5, Plt Count 240, MPV 10.6, Immature Gran % (Auto) 0.200, Neut % (Auto) 67.2, Lymph % (Auto) 17.1 L, [place] % (Auto) 13.6 H, Eos % (Auto) 1.7, Baso % (Auto) 0.2, Absolute Neuts (auto) 2.7, Absolute Lymphs (auto) 0.69 L, Nucleated RBC % 0 Micro: Microbiology 02/25/24 13:48 Mucosa - Nose SARS-CoV-2, Influenza & RSV (PCR) - Final Radiography Diagnostic Testing: Radiology Impression Brain CT 02/25/24 13:34 IMPRESSION: No acute intracranial process identified. Chronic involutional and white matter changes. Electronically Signed: Rosette Ramirez MD at 14:39 EDT , Chest X-Ray 02/25/24 13:35 IMPRESSION: Mild left basilar opacity, which may represent atelectasis or inflammation. Limited evaluation of the lung apices. Electronically Signed: Rosette Ramirez MD at 14:26 EDT , Physical Exam Narrative GENERAL: cooperative HEENT: Atraumatic; normocephalic EYES; Anicteric, Normal Conjunctiva NECK; supple, normal thyroid, RESPIRATORY: Diminished to auscultation CARDIOVASCULAR: Regular S1 S2, GI: soft, normoactive bowel sounds, : No Renal angle tenderness; EXTREMITIES: No edema, no clubbing, MUSCULOSKELETAL: no muscle wasting NEURO: Awake; no lateralizing signs. PSYCH; Flat affect Skin: Lower extremity wrapped, has chronic Achilles wound Assessment & Plan Assessment/Plan (1) Hypotension: (2) Generalized weakness: PLAN: Plan Patient is an 83-year-old gentleman admitted with progressive generalized weakness. Found to be bradycardic with hypotension. Admitted to monitored bed for further management 1. Orthostatic hypotension ? Patient resuscitated with IV fluids. Patient is on finasteride known to cause hypotension held patient was also started on midodrine 2. Physical deconditioning ? Patient has had repeated admissions for progressive generalized weakness. A diagnosis of polymyalgia rheumatica had apparently been entertained as outpatient. Patient started empirically on low-dose steroids [place] monitoring response. Requested for PT OT eval and social services counselor to assist with discharge planning 3. Bradycardia ? Placed on telemetry for continuous monitoring. Ordered TSH 4. History of peptic ulcer disease: Recently had EGD on 02/11/2024 which showed esophageal ulcers which were oozing blood and treated with heater probe and an oozing duodenal ulcer with a visible vessel which was also treated with heater probe patient is on PPI continue 5. 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 Complicating care requested for PT OT eval 6. Chronic pressure ulcers of the left Achilles heel - Wound care consult. 7. Coronary artery disease ? With history of previous STEMI with subsequent PCI with stent placement patient on antiplatelet therapy held on discharge given his peptic ulcer disease 8. Previous history of abnormal esophageal motility suspicious for achalasia ? Patient has undergone previous esophageal dilatation by Dr. Monterroso on 04/29/2023 9. Peripheral arterial disease ? With previous intervention proximal left peroneal to distal left peroneal angioplasty x3 11/02/2021 10. Paroxysmal A-fib ? Rate controlled patient was not started on systemic anticoagulation after he was deemed to be a poor candidate. 11 BPH with lower urinary obstructive symptoms ? Patient is on finasteride Held given patient low blood pressure on admission 12. Anemia ? Secondary to chronic disorder monitoring H&H and transfuse if patient becomes symptomatic or hemoglobin falls below 7 13. Peripheral neuropathy ? Patient is on gabapentin 14. Restless leg syndrome ? Symptomatic treatment with pramipexole 15. DVT prophylaxis ? Bilateral SCD Time spent in the patient's overall evaluation,decision-making process, review of diagnostic data, adjustment of management, discussion with other providers, nursing nursing and ancillary staff involved in patient's care documentation, 55 minutes Charges/Coding Visit Charges Inpatient E&M: [address] [facility] Hosp L3
[2024-02-26 08:58] VITALS: BP 137/68; PULSE 62; RESP 18; TEMP 36.4; O2SAT 99
[2024-02-26] MEDS: Gabapentin 100 MG Capsule PO ×2 (08:58→16:24)
[2024-02-26] MEDS: Nystatin Ointment 1 APPLIC TOPICAL (08:59)
[2024-02-26] MEDS: Pantoprazole Sodium 40 MG Tablet PO (08:59)
--- NOTE | 2024-02-26 09:59 | CASEMGMT ---
Discharge Planning Updates sent to [facility] via [facility]. Violeta Dangelo DC Planning Asst.
[2024-02-26] MEDS: Ferrous Sulfate 325 MG Tablet PO (11:02)
[2024-02-26] MEDS: Ascorbic Acid 500 MG Tablet PO (11:03)
--- NOTE | 2024-02-26 13:32 | CASEMGMT ---
Patient is from [place]. SW spoke with patient and his daughter and they confirmed the plan is to return to [place] at discharge. Plan: d/c back to [place] under skilled level of care. Aleksandra BLEDSOE
[2024-02-26] MEDS: predniSONE 5 MG Tablet PO ×2 (13:39→16:21)
--- NOTE | 2024-02-26 16:13 | CASEMGMT ---
Met with patient to complete MCGUIRE form. MCGUIRE form explained to patient who voiced understanding and signed form. Original form placed in pt?s chart and copy provided to patient. Violeta Dangelo, Discharge Planning Asst
[2024-02-26 16:20] VITALS: BP 127/75; PULSE 55; RESP 18; TEMP 36.6; O2SAT 97
[2024-02-26] MEDS: Midodrine HCl 5 MG Tablet PO (16:21)
[2024-02-26 16:38] LABS: T4 Free Direct 0.93 ng/dL (0.76-1.46)
[2024-02-26 19:35] LABS: T3 Total - Triiodothyronine 1.13 ng/mL (0.6-1.81)
[2024-02-26 21:17] VITALS: BP 138/73; PULSE 63; RESP 16; TEMP 36.7; O2SAT 96
[2024-02-26] MEDS: Mirtazapine 15 MG Tablet 7.5 MG PO (21:28)
[2024-02-26] MEDS: Hydrocortisone 2.5% Crm 1 APPLIC TOPICAL (21:28)
[2024-02-26] MEDS: Atorvastatin Calcium 20 MG Tablet PO (21:28)
[2024-02-26] MEDS: tiZANidine HCl 2 MG Tablet PO (21:28)
[2024-02-27 03:30] VITALS: BP 130/66; PULSE 50; RESP 16; TEMP 36.4; O2SAT 98
[2024-02-27 06:00] LABS: Absolute Lymphocyte Count 0.78 X10^3/uL (0.83-4.51); Basophil# 0.01 X10^3/uL; Basophil% 0.2 % (0-1); Eosinophil# 0.03 X10^3/uL; Eosinophils% 0.7 % (0-5); Hematocrit 31.2 % (40-54); Hemoglobin 10.1 g/dL (13.0-16.5); Lymphocyte # 0.78 X10^3/ul (0.83-4.51); Lymphocyte % 17.9 % (19-41); Mean Corp Hgb Conc 32.4 g/dL (32-36); Mean Corpuscular Hgb 30.7 pg (27.0-32.0); Mean Corpuscular Volume 94.8 fL (80-94); Mean Platelet Vol. 10.7 fl (6.2-12.0); Monocyte# 0.51 X10^3/uL; Monocyte% 11.7 % (0-10); NRBC Flagged by Analyzer 0 % (0-5); Neutrophil # 3.01 X10^3/uL (2.7-7.7); Platelet Count 253 K/mm3 (150-450); RBC Distribution Width CV 14.2 % (11.6-14.6); RBC Distribution Width SD 49.5 fl (35.1-43.9); Red Blood Count 3.29 M/mm3 (4.6-6.2); White Blood Count 4.4 K/mm3 (4.4-11.0)
[2024-02-27] MEDS: Sucralfate 1 GM Tablet PO ×2 (06:14→12:14)
[2024-02-27] MEDS: 0.9% Saline Lock 10 ML Syringe IV (06:14)
[2024-02-27 06:25] LABS: Anion Gap 4 (5-15); BUN 22 mg/dL (7-18); BUN/Creat Ratio 31.2 RATIO (10-20); Calcium,Total 8.8 mg/dL (8.5-10.1); Chloride 105 mmol/L (98-107); Creatinine, Serum 0.71 mg/dL (0.70-1.30); EST Glomerular Filtration Rate 113 mL/min (>60); Est Glom Filt Rate - Afr Amer 137 mL/min (>60); Estimated Creatinine Clearance 69.96 ml/min; Glucose 110 mg/dL (74-106); Magnesium 2.2 mg/dL (1.6-2.6); Phosphorus 2.9 mg/dL (2.5-4.9); Potassium 4.2 mmol/L (3.5-5.1); Sodium Level 138 mmol/L (136-145)
--- NOTE | 2024-02-27 07:36 | PN.HOSP_ITS ---
Reason for Visit Reason for Visit: Diagnoses Hypotension, unspecified (02/26/24) Weakness (02/26/24) Subjective Subjective Patient seen. Had a relatively uneventful night. Started on midodrine for orthostatic hypotension, prednisone for suspected PMR and low-dose levothyroxine for elevated TSH Objective Data Objective Data Vital Signs: Vital Signs Temp Pulse Resp BP Pulse Ox O2 Del Method O2 Flow Rate 97.6 F L 50 L 16 130/66 H 98 Room Air 2.5 02/27/24 03:30 02/27/24 03:30 02/27/24 03:30 02/27/24 03:30 02/27/24 03:30 02/27/24 03:30 02/25/24 14:00 Oxygen Flow Rate (L/min) 2.5 Oxygen Delivery Method Room Air Weight: 76.1 kg Body Mass Index (BMI) 24.7 Intake & Output: Intake and Output for Last 24 Hours 02/25/24 02/26/24 02/27/24 23:59 23:59 23:59 Intake Total 1000 / 1000 2678.33 / 2928.33 500 / 500 Output Total 3700 / 4100 400 / 400 Balance 1000 / 1000 -1021.67 / -1171.67 100 / 100 Lab / Micro Data 02/27/24 05:09 02/27/24 05:09 Labs: Laboratory Results - last 24 hr 02/26/24 05:11: TSH 5.460 H, Free T4 0.93, Total T3 1.13 02/27/24 05:09: WBC 4.4, RBC 3.29 L, Hgb 10.1 L, Hct 31.2 L, MCV 94.8 H, MCH 30.7, MCHC 32.4, RDW Std Deviation 49.5 H, RDW Coeff of [place] 14.2, Plt Count 253, MPV 10.7, Immature Gran % (Auto) 0.500, Neut % (Auto) 69.0, Lymph % (Auto) 17.9 L, [place] % (Auto) 11.7 H, Eos % (Auto) 0.7, Baso % (Auto) 0.2, Absolute Neuts (auto) 3.0, Absolute Lymphs (auto) 0.78 L, Nucleated RBC % 0, Sodium 138, Potassium 4.2, Chloride 105, Carbon Dioxide 29.0, Anion Gap 4 L, BUN 22 H, Creatinine 0.71, Estim Creat Clear Calc 69.96, Est GFR (MDRD) Af Amer 137, Est GFR (MDRD) Non-Af 113, BUN/Creatinine Ratio 31.2 H, Glucose 110 H, Calcium 8.8, Phosphorus 2.9, Magnesium 2.2 Micro: Microbiology 02/25/24 13:48 Mucosa - Nose SARS-CoV-2, Influenza & RSV (PCR) - Final Physical Exam Narrative GENERAL: cooperative HEENT: Atraumatic; normocephalic EYES; Anicteric, Normal Conjunctiva NECK; supple, normal thyroid, RESPIRATORY: Diminished to auscultation CARDIOVASCULAR: Regular S1 S2, GI: soft, normoactive bowel sounds, : No Renal angle tenderness; EXTREMITIES: No edema, no clubbing, MUSCULOSKELETAL: no muscle wasting NEURO: Awake; no lateralizing signs. PSYCH; Flat affect Skin: Lower extremity wrapped, has chronic Achilles wound Assessment & Plan Assessment/Plan (1) Hypotension: (2) Generalized weakness: PLAN: Plan Patient is an 83-year-old gentleman admitted with progressive generalized weakness. Found to be bradycardic with hypotension. Admitted to monitored bed for further management 1. Orthostatic hypotension ? Patient resuscitated with IV fluids. Patient is on finasteride known to cause hypotension held patient was also started on midodrine ? 02/27/2024; patient started on midodrine the day prior blood pressure appears stable 2. Physical deconditioning ? Patient has had repeated admissions for progressive generalized weakness. A diagnosis of polymyalgia rheumatica had apparently been entertained as outpatient. Patient started empirically on low-dose steroids [place] monitoring response. Requested for PT OT eval and social services counselor to assist with discharge planning ? 02/27/2024; patient started on low-dose steroid the day prior 3. Bradycardia ? Placed on telemetry for continuous monitoring. Ordered TSH ? Patient TSH slightly elevated free T4 and total T3 3 however were within normal limit. Given the slight elevation in TSH patient was started on low-dose levothyroxine 12.5 mcg daily 4. History of peptic ulcer disease: Recently had EGD on 02/11/2024 which showed esophageal ulcers which were oozing blood and treated with heater probe and an oozing duodenal ulcer with a visible vessel which was also treated with heater probe patient is on PPI continue 5. 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 Complicating care requested for PT OT eval 6. Chronic pressure ulcers of the left Achilles heel - Wound care consult. 7. Coronary artery disease ? With history of previous STEMI with subsequent PCI with stent placement patient on antiplatelet therapy held on discharge given his peptic ulcer disease 8. Previous history of abnormal esophageal motility suspicious for achalasia ? Patient has undergone previous esophageal dilatation by Dr. Monterroso on 04/29/2023 9. Peripheral arterial disease ? With previous intervention proximal left peroneal to distal left peroneal angioplasty x3 11/02/2021 10. Paroxysmal A-fib ? Rate controlled patient was not started on systemic anticoagulation after he was deemed to be a poor candidate. 11 BPH with lower urinary obstructive symptoms ? Patient is on finasteride Held given patient low blood pressure on admission 12. Anemia ? Secondary to chronic disorder monitoring H&H and transfuse if patient becomes symptomatic or hemoglobin falls below 7 13. Peripheral neuropathy ? Patient is on gabapentin 14. Restless leg syndrome ? Symptomatic treatment with pramipexole 15. DVT prophylaxis ? Bilateral SCD Time spent in the patient's overall evaluation,decision-making process, review of diagnostic data, adjustment of management, discussion with other providers, nursing nursing and ancillary staff involved in patient's care documentation, 38 minutes Charges/Coding Visit Charges Inpatient E&M: 97374 Subs Hosp L2
[2024-02-27 08:01] VITALS: O2SAT 95
[2024-02-27] MEDS: Gabapentin 100 MG Capsule PO (08:42)
[2024-02-27] MEDS: predniSONE 5 MG Tablet PO ×2 (08:43→12:15)
[2024-02-27] MEDS: Midodrine HCl 5 MG Tablet PO ×2 (08:43→12:15)
[2024-02-27] MEDS: Hydrocortisone 2.5% Crm 1 APPLIC TOPICAL (08:44)
[2024-02-27] MEDS: Nystatin Ointment 1 APPLIC TOPICAL (08:45)
[2024-02-27] MEDS: Pantoprazole Sodium 40 MG Tablet PO (08:46)
[2024-02-27] MEDS: Acetaminophen 325 MG Tablet 650 MG PO (08:58)
[2024-02-27 09:00] VITALS: BP 141/69; PULSE 53; RESP 16; TEMP 35.6; O2SAT 97
--- NOTE | 2024-02-27 10:33 | WOUNDNOTE ---
wound photo: left Achilles area
--- NOTE | 2024-02-27 11:33 | DS.PCM_ITS ---
Providers Date of Admission: 02/26/24 Date of Discharge: 02/27/24 Primary Care Physician: Dr. Ankur Medina, DO Consultations 02/25/24 23:38 Consult: Onc/Wound/extrusion utility worker Routine Comment: Reason for Consult:: nonhealing pressure injury to left achilles Reason For Visit: palpitations Diagnosis Discharge Diagnosis (1) Hypotension: Status: Acute Code(s): I95.9 - Hypotension, unspecified (2) Generalized weakness: Status: Acute Code(s): R53.1 - Weakness Plan Patient is an 83-year-old gentleman admitted with progressive generalized weakness. Found to be bradycardic with hypotension. Admitted to monitored bed for further management 1. Orthostatic hypotension ? Patient resuscitated with IV fluids. Patient is on finasteride known to cause hypotension held patient was also started on midodrine ? 02/27/2024; patient started on midodrine the day prior blood pressure appears stable 2. Physical deconditioning ? Patient has had repeated admissions for progressive generalized weakness. A diagnosis of polymyalgia rheumatica had apparently been entertained as outpatient. Patient started empirically on low-dose steroids [place] monitoring response. Requested for PT OT eval and group social worker to assist with discharge planning ? 02/27/2024; patient started on low-dose steroid the day prior 3. Bradycardia ? Placed on telemetry for continuous monitoring. Ordered TSH ? Patient TSH slightly elevated free T4 and total T3 3 however were within normal limit. Given the slight elevation in TSH patient was started on low-dose levothyroxine 12.5 mcg daily 4. History of peptic ulcer disease: Recently had EGD on 02/11/2024 which showed esophageal ulcers which were oozing blood and treated with heater probe and an oozing duodenal ulcer with a visible vessel which was also treated with heater probe patient is on PPI continue 5. 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 Complicating care requested for PT OT eval 6. Chronic pressure ulcers of the left Achilles heel - Wound care consult. 7. Coronary artery disease ? With history of previous STEMI with subsequent PCI with stent placement patient on antiplatelet therapy held on discharge given his peptic ulcer disease 8. Previous history of abnormal esophageal motility suspicious for achalasia ? Patient has undergone previous esophageal dilatation by Dr. Monterroso on 04/29/2023 9. Peripheral arterial disease ? With previous intervention proximal left peroneal to distal left peroneal angioplasty x3 11/02/2021 10. Paroxysmal A-fib ? Rate controlled patient was not started on systemic anticoagulation after he was deemed to be a poor candidate. 11 BPH with lower urinary obstructive symptoms ? Patient is on finasteride Held given patient low blood pressure on admission 12. Anemia ? Secondary to chronic disorder monitoring H&H and transfuse if patient becomes symptomatic or hemoglobin falls below 7 13. Peripheral neuropathy ? Patient is on gabapentin 14. Restless leg syndrome ? Symptomatic treatment with pramipexole 15. DVT prophylaxis ? Bilateral SCD Time spent in the patient's overall evaluation,decision-making process, review of diagnostic data, adjustment of management, discussion with other providers, nursing nursing and ancillary staff involved in patient's care documentation, 38 minutes Medications at Discharge Home Medications finasteride 5 mg tablet (Proscar) 5 mg PO DAILY PROSTATES 07/18/17 cilostazol 50 mg tablet 50 mg PO BID vasodilator 02/02/22 acetaminophen 500 mg tablet 1,000 mg PO Q6H PRN Pain Score 1-10 07/15/23 ascorbic acid (vitamin C) 500 mg tablet 500 mg PO 1200 #1 TAB 07/25/23 ferrous sulfate 325 mg (65 mg iron) tablet (FeroSul) 325 mg PO DAILY@1200 #1 TAB 07/25/23 ammonium lactate 12 % topical cream 1 applic topical QHS 11/30/23 mirtazapine 7.5 mg tablet 7.5 mg PO QHS 11/30/23 compression socks, medium #2 ea 12/04/23 gabapentin 100 mg capsule 100 mg PO BIDCM nerve pain #30 caps 12/04/23 tizanidine 2 mg tablet 2 mg PO QHS PRN muscle spasm #30 tabs 12/04/23 vitamin B12 0.5 mg-folic acid 1 mg tablet 1 tab PO DAILY 02/09/24 pantoprazole 40 mg tablet,delayed release (Protonix) 40 mg PO DAILY #60 tabs 02/12/24 atorvastatin 20 mg tablet 20 mg PO QHS 02/25/24 hydrocortisone 2.5 % topical cream 1 applic topical BID 02/25/24 nystatin 100,000 unit/gram topical ointment 1 applic topical BID 02/25/24 sucralfate 100 mg/mL oral suspension (Carafate) 1 g PO 4X/DAY 02/25/24 levothyroxine 25 mcg tablet 12.5 mcg (1/2 x 25 mcg) PO DAILY@0600 #0 tabs 02/27/24 midodrine 5 mg tablet 5 mg PO TIDCM #0 tabs 02/27/24 prednisone 5 mg tablet 10 mg (2 x 5 mg) PO DAILY #0 tabs 02/27/24 Physical Exam Narrative GENERAL: cooperative HEENT: Atraumatic; normocephalic EYES; Anicteric, Normal Conjunctiva NECK; supple, normal thyroid, RESPIRATORY: Diminished to auscultation CARDIOVASCULAR: Regular S1 S2, GI: soft, normoactive bowel sounds, : No Renal angle tenderness; EXTREMITIES: No edema, no clubbing, MUSCULOSKELETAL: no muscle wasting NEURO: Awake; no lateralizing signs. PSYCH; Flat affect Skin: Lower extremity wrapped, has chronic Achilles wound Weight / BMI Weight Weight: 76.1 kg Body Mass Index (BMI) 24.7 ABG / Lab / Microbiology Data 02/27/24 05:09 02/27/24 05:09 Laboratory: Laboratory Results - last 24 hr 02/26/24 05:11: TSH 5.460 H, Free T4 0.93, Total T3 1.13 02/27/24 05:09: WBC 4.4, RBC 3.29 L, Hgb 10.1 L, Hct 31.2 L, MCV 94.8 H, MCH 30.7, MCHC 32.4, RDW Std Deviation 49.5 H, RDW Coeff of [place] 14.2, Plt Count 253, MPV 10.7, Immature Gran % (Auto) 0.500, Neut % (Auto) 69.0, Lymph % (Auto) 17.9 L, [place] % (Auto) 11.7 H, Eos % (Auto) 0.7, Baso % (Auto) 0.2, Absolute Neuts (auto) 3.0, Absolute Lymphs (auto) 0.78 L, Nucleated RBC % 0, Sodium 138, Potassium 4.2, Chloride 105, Carbon Dioxide 29.0, Anion Gap 4 L, BUN 22 H, Creatinine 0.71, Estim Creat Clear Calc 69.96, Est GFR (MDRD) Af Amer 137, Est GFR (MDRD) Non-Af 113, BUN/Creatinine Ratio 31.2 H, Glucose 110 H, Calcium 8.8, Phosphorus 2.9, Magnesium 2.2 Microbiology: Microbiology 02/25/24 13:48 Mucosa - Nose SARS-CoV-2, Influenza & RSV (PCR) - Final D/C Instructions Discharge Diet: No restrictions Discharge Activity: Return to Normal Activity Call your doctor if you observe: Fever of 101 or Higher, Shortness of breath, Fainting spells and Chest pain Meaningful Use Info Meaningful Use Meaningful Use Diagnoses (Choose all that apply): None applicable Ischemic Stroke Statin Dosing Therapy Reference: STATIN DOSE THERAPY REFERENCE: * Patients > 75 years receive moderate or high dose statin therapy. * Patients 75 years or YOUNGER should receive HIGH intensity statin dose unless contraindicated. You will be required to document reason for non-treatment if statin daily dose does not meet guidelines. HIGH DOSE STATIN THERAPY DAILY Atorvastatin > than or = to 40 mg Rosuvastatin > than or = to 20 mg Amlodipine + Atorvastatin > than or = to 2.5/40 mg Ezetimibe + Simvastatin 10/80 mg Simvastatin 80mg Discharge Plan Admission Admit Date/Time: 02/26/24 18:20 Attending Provider: Manoj England Primary Care Provider: Ankur Medina Consulting Providers: Gerri Sanchez Discharge Orders/Prescriptions Prescriptions: New prednisone 5 mg Tablet 10 mg PO DAILY Qty: 0 0RF midodrine 5 mg Tablet 5 mg PO TIDCM Qty: 0 0RF levothyroxine 25 mcg Tablet 12.5 mcg PO DAILY@0600 Qty: 0 0RF Continued finasteride [Proscar] 5 mg tablet 5 mg PO DAILY cilostazol 50 mg tablet 50 mg PO BID acetaminophen 500 mg Tablet 1,000 mg PO Q6H PRN (Reason: Pain Score 1-10) ascorbic acid (vitamin C) 500 mg Tablet 500 mg PO 1200 Qty: 1 0RF ferrous sulfate [FeroSul] 325 mg (65 mg iron) Tablet 325 mg PO DAILY@1200 Qty: 1 0RF mirtazapine 7.5 mg tablet 7.5 mg PO QHS ammonium lactate 12 % cream 1 applic topical QHS tizanidine 2 MG tablet 2 mg PO QHS PRN (Reason: muscle spasm) Qty: 30 0RF gabapentin 100 mg capsule 100 mg PO BIDCM Qty: 30 0RF (DME) compression socks, medium Misc See Rx Instructions .ROUTE Qty: 2 0RF Rx Instructions: As directed vitamin [id number] acid 0.5-1 mg tablet 1 tab PO DAILY pantoprazole [Protonix] 40 mg tablet,delayed release (DR/EC) 40 mg PO DAILY Qty: 60 0RF atorvastatin 20 mg tablet 20 mg PO QHS sucralfate [Carafate] 100 mg/mL suspension 1 g PO 4X/DAY Rx Instructions: BEFORE MEALS AND AT BEDTIME hydrocortisone 2.5 % cream 1 applic topical BID nystatin 100,000 unit/gram ointment 1 applic topical BID Referrals / Follow Up: Ankur Medina DO [Primary Care Provider] - Within 2 Weeks Disposition Disposition (needs filled in before D/C Order can be placed): Long-Term Facility Charges/Coding Visit Charges Inpatient E&M: 39597 Disch Hosp >30min
--- NOTE | 2024-02-27 11:42 | TREXTCAR_ITS ---
Diet Diet Order/Speech Therapy: 02/26/24 10:52 Diet: Regular - General Diet Comments: Built up silverware and sippy cup with handles Routine Orders/Code Status Code Status: Full Code Wound(s) Left Achilles: Wound Type: chronic nonhealing wound Dressing Change: AntiMicrobial (Aquacel AG, etc) Therapies Physical Therapy: Eval and Treat Occupational Therapy: Eval and Treat Problem/Diagnosis (1) Hypotension: Status: Acute Code(s): I95.9 - Hypotension, unspecified (2) Generalized weakness: Status: Acute Code(s): R53.1 - Weakness Plan Patient is an 83-year-old gentleman admitted with progressive generalized weakness. Found to be bradycardic with hypotension. Admitted to monitored bed for further management 1. Orthostatic hypotension ? Patient resuscitated with IV fluids. Patient is on finasteride known to cause hypotension held patient was also started on midodrine ? 02/27/2024; patient started on midodrine the day prior blood pressure appears stable 2. Physical deconditioning ? Patient has had repeated admissions for progressive generalized weakness. A diagnosis of polymyalgia rheumatica had apparently been entertained as outpatient. Patient started empirically on low-dose steroids [place] monitoring response. Requested for PT OT eval and director of social work to assist with discharge planning ? 02/27/2024; patient started on low-dose steroid the day prior 3. Bradycardia ? Placed on telemetry for continuous monitoring. Ordered TSH ? Patient TSH slightly elevated free T4 and total T3 3 however were within normal limit. Given the slight elevation in TSH patient was started on low-dose levothyroxine 12.5 mcg daily 4. History of peptic ulcer disease: Recently had EGD on 02/11/2024 which showed esophageal ulcers which were oozing blood and treated with heater probe and an oozing duodenal ulcer with a visible vessel which was also treated with heater probe patient is on PPI continue 5. 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 Complicating care requested for PT OT eval 6. Chronic pressure ulcers of the left Achilles heel - Wound care consult. 7. Coronary artery disease ? With history of previous STEMI with subsequent PCI with stent placement patient on antiplatelet therapy held on discharge given his peptic ulcer disease 8. Previous history of abnormal esophageal motility suspicious for achalasia ? Patient has undergone previous esophageal dilatation by Dr. Monterroso on 04/29/2023 9. Peripheral arterial disease ? With previous intervention proximal left peroneal to distal left peroneal angioplasty x3 11/02/2021 10. Paroxysmal A-fib ? Rate controlled patient was not started on systemic anticoagulation after he was deemed to be a poor candidate. 11 BPH with lower urinary obstructive symptoms ? Patient is on finasteride Held given patient low blood pressure on admission 12. Anemia ? Secondary to chronic disorder monitoring H&H and transfuse if patient becomes symptomatic or hemoglobin falls below 7 13. Peripheral neuropathy ? Patient is on gabapentin 14. Restless leg syndrome ? Symptomatic treatment with pramipexole 15. DVT prophylaxis ? Bilateral SCD Time spent in the patient's overall evaluation,decision-making process, review of diagnostic data, adjustment of management, discussion with other providers, nursing nursing and ancillary staff involved in patient's care documentation, 38 minutes Allergies/Procedures Done in Hospital Allergies morphine Adverse Reaction (Intermediate, Verified 02/25/24 23:51) Other Per daughter pt became confused and saying off the wall stuff. Took days to go back to normal Type of Care/Length of Stay Estimated LOS: More Than 30 Days Type of Care Needed: Skilled Rehab Potential: Fair Prognosis: Fair Additional Orders/Day of Discharge Day of Discharge: 02/27/24 Discharge Plan Admission Admit Date/Time: 02/26/24 18:20 Attending Provider: Manoj England Primary Care Provider: Ankur Medina Consulting Providers: Gerri Sanchez Discharge Orders/Prescriptions Prescriptions: New prednisone 5 mg Tablet 10 mg PO DAILY Qty: 0 0RF midodrine 5 mg Tablet 5 mg PO TIDCM Qty: 0 0RF levothyroxine 25 mcg Tablet 12.5 mcg PO DAILY@0600 Qty: 0 0RF Continued finasteride [Proscar] 5 mg tablet 5 mg PO DAILY cilostazol 50 mg tablet 50 mg PO BID acetaminophen 500 mg Tablet 1,000 mg PO Q6H PRN (Reason: Pain Score 1-10) ascorbic acid (vitamin C) 500 mg Tablet 500 mg PO 1200 Qty: 1 0RF ferrous sulfate [FeroSul] 325 mg (65 mg iron) Tablet 325 mg PO DAILY@1200 Qty: 1 0RF mirtazapine 7.5 mg tablet 7.5 mg PO QHS ammonium lactate 12 % cream 1 applic topical QHS tizanidine 2 MG tablet 2 mg PO QHS PRN (Reason: muscle spasm) Qty: 30 0RF gabapentin 100 mg capsule 100 mg PO BIDCM Qty: 30 0RF (DME) compression socks, medium Misc See Rx Instructions .ROUTE Qty: 2 0RF Rx Instructions: As directed vitamin [id number] acid 0.5-1 mg tablet 1 tab PO DAILY pantoprazole [Protonix] 40 mg tablet,delayed release (DR/EC) 40 mg PO DAILY Qty: 60 0RF atorvastatin 20 mg tablet 20 mg PO QHS sucralfate [Carafate] 100 mg/mL suspension 1 g PO 4X/DAY Rx Instructions: BEFORE MEALS AND AT BEDTIME hydrocortisone 2.5 % cream 1 applic topical BID nystatin 100,000 unit/gram ointment 1 applic topical BID Referrals / Follow Up: Ankur Medina DO [Primary Care Provider] - Within 2 Weeks Disposition Disposition (needs filled in before D/C Order can be placed): Nursing Home Facility
[2024-02-27] MEDS: Ferrous Sulfate 325 MG Tablet PO (12:15)
[2024-02-27] MEDS: Ascorbic Acid 500 MG Tablet PO (12:15)
--- NOTE | 2024-02-27 12:19 | CASEMGMT ---
Patient will be discharged back to [facility] today under skilled level of care. Physicians will transport patient via wheelchair van. Plan: d/c back to [facility] under skilled level of care. Physicians will transport patient via wheelchair van. Aleksandra BLEDSOE
--- NOTE | 2024-02-27 12:27 | CASEMGMT ---
Discharge Planning Discharge orders, signed med list, and transport time sent to [facility] via [facility]. Physicians (Corazon) will transport patient by wheelchair at 1:30p. Nursing, SW, patient, and his daughter/HC POA (Arti) updated. Violeta Dangelo DC Planning Asst.
--- NOTE | 2024-02-27 13:02 | CHAPLAIN ---
Type of Pastoral Visit _x__ Initial Visit ___ Follow-up Visit ___ On-call Visit ___ General Patient Visit ___ Spiritual Assessment ___ Family Conference ___ Bereavement ___ Rapid Response ___ Code Blue ___ Other (describe below) Pastoral Care Referral From _x__ Patient ___ Family ___ Nurse ___ Physician ___ Dimensional Inspector ___ Booster Pump Oiler ___ Other (describe below) Sacrament/Intervention _x__ Active listening ___ Anointing ___ Judaism ___ Bereavement ___ Communion ___ Pooja exploration ___ ___ Life review _x__ Prayer ___ Reconciliation ___ Sacrament of Sick _x__ Supportive presence ___ Wedding ___ Other (describe below) Pastoral Comments 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
== END 2024-02-27 14:05 | disposition skilled nursing facility (03) | DRG 312 ==
LOC: ED 16:03 → PCU 02-26 07:04
PROVIDERS: Admitting Provider Student in an Organized Health Care Education/Training Program; Emergency Provider Emergency Medicine; PCP Family Medicine; Visit Provider Internal Medicine
DX: I95.1 Orthostatic hypotension (principal); I69.351 Hemiplegia and hemiparesis following cerebral infarction affecting right dominant side; N13.8 Other obstructive and reflux uropathy; K22.0 Achalasia of cardia; L89.629 Pressure ulcer of left heel, unspecified stage; G25.81 Restless legs syndrome; I48.0 Paroxysmal atrial fibrillation; I73.9 Peripheral vascular disease, unspecified; I10 Essential (primary) hypertension; M35.3 Polymyalgia rheumatica; I25.10 Atherosclerotic heart disease of native coronary artery without angina pectoris; E78.5 Hyperlipidemia, unspecified; G62.9 Polyneuropathy, unspecified; R00.1 Bradycardia, unspecified; R94.6 Abnormal results of thyroid function studies; N40.1 Benign prostatic hyperplasia with lower urinary tract symptoms; R09.02 Hypoxemia; R53.1 Weakness; R53.81 Other malaise; Z66 Do not resuscitate; Z87.891 Personal history of nicotine dependence; Z95.5 Presence of coronary angioplasty implant and graft; Z98.62 Peripheral vascular angioplasty status
CPT/HCPCS: 36415; 70450; 71045; 80048; 80053; 81001; 83605; 83735; 83880; 84100; 84439; 84443; 84480; 84484; 85025; 85379; 87040; 87631; 93005; 99252; 99285; J7030; A4216; G0463

== ENCOUNTER → 2024-04-28 | Outpatient (CLI) | payer MEDICARE, BC, SELFPAY ==
[2024-04-28 17:46] LABS: Absolute Lymphocyte Count 0.58 X10^3/uL (0.83-4.51); Absolute Neutrophil Count 4.6 X10^3/uL (2.0-7.7); Eosinophil# 0.01 X10^3/uL; Eosinophils% 0.2 % (0-5); Hematocrit 35.8 % (40-54); Hemoglobin 11.2 g/dL (13.0-16.5); Lymphocyte # 0.58 X10^3/ul (0.83-4.51); Lymphocyte % 10.4 % (19-41); Mean Corp Hgb Conc 31.3 g/dL (32-36); Mean Corpuscular Hgb 30.5 pg (27.0-32.0); Mean Corpuscular Volume 97.5 fL (80-94); Mean Platelet Vol. 10.4 fl (6.2-12.0); Monocyte# 0.43 X10^3/uL; Monocyte% 7.7 % (0-10); NRBC Flagged by Analyzer 0 % (0-5); Neutrophil # 4.55 X10^3/uL (2.7-7.7); Neutrophil % 81.3 % (47-70); POSITIVE DIFFERENTIAL YES; Platelet Count 287 K/mm3 (150-450); RBC Distribution Width CV 13.3 % (11.6-14.6); RBC Distribution Width SD 48.2 fl (35.1-43.9); Red Blood Count 3.67 M/mm3 (4.6-6.2); White Blood Count 5.6 K/mm3 (4.4-11.0)
[2024-04-28 18:40] LABS: Anion Gap 5 (5-15); BUN 19 mg/dL (7-18); BUN/Creat Ratio 27.5 RATIO (10-20); Chloride 105 mmol/L (98-107); Creatinine, Serum 0.69 mg/dL (0.70-1.30); EST Glomerular Filtration Rate 116 mL/min (>60); Est Glom Filt Rate - Afr Amer 141 mL/min (>60); Glucose 136 mg/dL (74-106); Potassium 4.3 mmol/L (3.5-5.1); Sodium Level 139 mmol/L (136-145)
== END | disposition home or self-care (01) ==
LOC: BFHLAB 15:23
PROVIDERS: PCP Family Medicine; Referring Provider Family Medicine; Visit Provider Family Medicine
DX: E87.6 Hypokalemia (principal); D64.9 Anemia, unspecified; E03.9 Hypothyroidism, unspecified
CPT/HCPCS: 36415; 80048; 84443; 85025

== ENCOUNTER → 2024-05-18 04:00 | Outpatient (REF) | payer MEDICARE, BC, SELFPAY ==
[2024-05-18 07:51] LABS: Anion Gap 6 (5-15); BUN 27 mg/dL (7-18); BUN/Creat Ratio 29.9 RATIO (10-20); Calcium,Total 8.9 mg/dL (8.5-10.1); Chloride 106 mmol/L (98-107); EST Glomerular Filtration Rate 85 mL/min (>60); Est Glom Filt Rate - Afr Amer 103 mL/min (>60); Glucose 74 mg/dL (74-106); Potassium 4.2 mmol/L (3.5-5.1); Sodium Level 139 mmol/L (136-145)
== END ==
LOC: OLS.WHLTSB 04:00
PROVIDERS: PCP Family Medicine; Referring Provider Family Medicine; Visit Provider Family Medicine
DX: I25.10 Atherosclerotic heart disease of native coronary artery without angina pectoris (principal)
CPT/HCPCS: 36415; 80048

== ENCOUNTER 2024-05-23 15:22 | Emergency (ER) | payer MEDICARE, BC, SELFPAY ==
[2024-05-23 15:25] VITALS: BP 161/66; PULSE 57; RESP 18; TEMP 36.8; O2SAT 100
--- NOTE | 2024-05-23 15:39 | CT_ITS ---
EXAM: CT Abdomen And Pelvis W/ Contrast Injection HISTORY: abdominal pain TECHNIQUE: Routine protocol CT abdomen pelvis. IV Contrast: IV 100mL [id number] . Oral Contrast: without. Sagittal and coronal images were reconstructed. RADIATION DOSAGE (If Supplied By Facility): CTDIvol = ( 16.66 ) mGy, DLP = ( 1218.28 ) mGycm Individualized dose optimization techniques were used for this CT. COMPARISON: None. LIMITATIONS: None. FINDINGS: LOWER CHEST: Patchy opacities in the right lower lobe. A few small nodular opacities in the right middle lobe, largest is 6 mm.. Coronary artery calcifications are noted. LIVER: Unremarkable. GALLBLADDER/BILE DUCTS: Gallstones in the gallbladder. PANCREAS: Unremarkable. SPLEEN: Unremarkable. ADRENAL GLANDS: Unremarkable. KIDNEYS / URETERS: Small calculus in the left kidney. No hydronephrosis. Cysts in the right kidney, no follow-up needed. BOWEL / MESENTERY: Unremarkable. No bowel obstruction. Moderate amount of stool in the colon mainly in the right colon. APPENDIX: Identified and normal. No evidence of acute appendicitis. PERITONEUM: No free air. No free fluid. VESSELS: Abdominal aorta is normal caliber. RETROPERITONEUM: Bulky lobular soft tissue structures presumed adenopathy. Largest along the pelvic sidewall deep to the inguinal ring bilaterally, on the right 5.1 x 1.9 cm, on the left, 4.4 x 2.4 cm. Left iliac chain enlarged node is 2.4 x 1.5 cm. Smaller nodes periaortic and aortocaval. REPRODUCTIVE ORGANS: Unremarkable. BLADDER: Unremarkable. ABDOMINAL WALL: Several prominent inguinal lymph nodes bilaterally. Enlarged lymph nodes in the lower lateral chest wall bilaterally likely at the lower margin of the axilla. Larger lobular bulky mass right anterior lower chest wall likely inferior breast, abuts the skin, measures 4.4 x 2.2 cm. BONES: No acute abnormality. Degenerative changes in lumbar spine OTHER: None. CT/Abdomen/Pelvis W IV Cont ONLY IMPRESSION: 1. Soft tissue mass subcutaneous right lower anterior chest wall likely inferior/lateral breast. Suspicious for primary breast malignancy. 2. Pelvic and retroperitoneal adenopathy, and bilateral axillary adenopathy partially included in lower chest. This may be consistent with metastatic disease, versus lymphoma. 3. Cholelithiasis. 4. A few pulmonary nodules in the right middle lobe largest 6 mm. Given the additional findings suspicious for malignancy/metastatic disease. Fleischner Society follow-up recommendation for high risk patient: CT chest at 3-6 months, or as otherwise indicated based on the additional findings. *Fleischner Society Recommendations (Radiology 2017, 284:228-243.) (Follow-up and management of multiple nodules smaller than 8 mm detected incidentally at non-screening CT. Newly detected indeterminate nodule in persons 35 years of age or older.) Low risk patient: Minimal or absent history of smoking and of other known risk factors. < 6 mm: No followup needed 6-8mm: Initial Follow-up CT at 3-6 months, then consider CT at 18-24 months >8mm: CT at 3-6 months, then consider CT at 18-24 months High risk patient: History of smoking or of other known risk factors. < 6 mm: Optional CT at 12 months. 6-8mm: CT at 3-6 months, then CT at 18-24 months. >8mm: CT at 3-6 months, then CT at 18-24 months Electronically Signed: Kristyn Jung MD at 17:38 EST ,
--- NOTE | 2024-05-23 15:44 | EX.ED.DYSGE1 ---
HPI <JOCELYN Saba - Last Filed: 05/23/24 19:17> History of Present Illness Chief Complaint: Nausea/Vomiting Narrative Narrative: Patient presenting today due to nausea/vomiting that started last night. He has primarily had dry heaving but today did have few episodes of vomiting. He reports slight discomfort in his abdomen from vomiting. He has been having normal bowel movements, he last had a bowel movement yesterday. He denies diarrhea, urinary symptoms, fevers, and chills. He is here with his daughter who reports that he was at home last night with her, he normally resides at [facility], when she brought him back to [facility] today the nurse noticed that his pupils were dilated and he had ongoing nausea, prompting him to be brought in for evaluation. Daughter reports that she was with him the whole night, he did not take any medication he is not supposed to, no substance use at all. No previous abdominal surgeries. Patient has a PMH of HTN, HLD, A-fib, CAD with stents, PAD, and chronic left Achilles wound. 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) Essential hypertension Peripheral arterial occlusive disease History of basal cell cancer Cervical radiculopathy Stenosis of cervical spine with myelopathy Debility Restless leg syndrome Normochromic normocytic anemia Orthostatic hypotension Depression Urine retention Urinary incontinence Left ventricular hypertrophy BPH (benign prostatic hyperplasia) Pressure ulcer Myelopathy Tobacco dependence in remission Renal cyst Osteoarthritis Microscopic hematuria Eczema Anterolisthesis Leg swelling PAD (peripheral artery disease) Hyperlipidemia Atherosclerotic heart disease of [place] coronary artery without angina pectoris Paroxysmal atrial fibrillation Dilated aortic root Home Medications ?Medication ?Instructions ?Recorded ?Last Taken ?Type finasteride 5 mg tablet (Proscar) 5 mg PO DAILY PROSTATES 07/18/17 02/25/24 History cilostazol 50 mg tablet 50 mg PO BID vasodilator 02/02/22 02/25/24 History acetaminophen 500 mg tablet 1,000 mg PO Q6H PRN Pain Score 1-10 07/15/23 02/25/24 History ascorbic acid (vitamin C) 500 mg 500 mg PO 1200 #1 TAB 07/25/23 02/24/24 Rx tablet ferrous sulfate 325 mg (65 mg 325 mg PO DAILY@1200 #1 TAB 07/25/23 02/24/24 Rx iron) tablet (FeroSul) ammonium lactate 12 % topical cream 1 applic topical QHS 11/30/23 02/24/24 History mirtazapine 7.5 mg tablet 7.5 mg PO QHS 11/30/23 02/24/24 History compression socks, medium #2 ea 12/04/23 Unknown Rx gabapentin 100 mg capsule 100 mg PO BIDCM nerve pain #30 caps 12/04/23 02/25/24 Rx tizanidine 2 mg tablet 2 mg PO QHS PRN muscle spasm #30 12/04/23 02/24/24 Rx tabs vitamin B12 0.5 mg-folic acid 1 mg 1 tab PO DAILY 02/09/24 02/25/24 History tablet pantoprazole 40 mg tablet,delayed 40 mg PO DAILY #60 tabs 02/12/24 02/25/24 Rx release (Protonix) atorvastatin 20 mg tablet 20 mg PO QHS 02/25/24 02/24/24 History hydrocortisone 2.5 % topical cream 1 applic topical BID 02/25/24 02/24/24 History nystatin 100,000 unit/gram topical 1 applic topical BID 02/25/24 02/24/24 History ointment sucralfate 100 mg/mL oral 1 g PO 4X/DAY 02/25/24 Unknown History suspension (Carafate) levothyroxine 25 mcg tablet 12.5 mcg (1/2 x 25 mcg) PO 02/27/24 Unknown Rx DAILY@0600 #0 tabs midodrine 5 mg tablet 5 mg PO TIDCM #0 tabs 02/27/24 Unknown Rx prednisone 5 mg tablet 10 mg (2 x 5 mg) PO DAILY #0 tabs 02/27/24 Unknown Rx ondansetron 4 mg disintegrating 4 mg PO Q8H PRN PRN Nausea #10 tabs 05/23/24 Unknown Rx tablet Allergy/AdvReac Type Severity Reaction Status Date / Time morphine AdvReac Intermediate Other Verified 05/23/24 15:25 Family History Mother CHF (congestive heart failure) Heart disease Hypertension Father COPD (chronic obstructive pulmonary disease) Surgical History S/P debridement History of vascular surgery History of coronary artery stent placement (01/11/16) H/O laminectomy History of knee surgery S/P rotator cuff repair History of pilonidal cyst Social History household members: none housing: house number of children: 5 current occupation: retired current occupational exposures/hazards: No history of recent travel: No Smoking Status: Former smoker how long ago did patient quit smokin alcohol intake: current alcohol intake frequency: holidays/special occasions only details: occasional,holiday substance use type: does not use caffeine: Yes Type: coffee Number of servings: 10 what type of physical activity do you participate in: bicycling frequency: 1-2 times per week duration: 15-30 minutes/day seatbelt use: always do you feel safe at home: Yes ROS <JOCELYN Saba - Last Filed: 05/23/24 19:17> ROS ED Constitutional Constitutional ED: Denies chills or fever(s) Eyes Eyes: Denies change in vision Cardiovascular Cardiovascular: Denies chest pain Respiratory/Chest Respiratory/Chest: Denies dyspnea Gastrointestinal Gastrointestinal: Reports abdominal pain, nausea and vomiting; Denies constipation, diarrhea or melena Genitourinary Genitourinary ED: Denies dysuria, hematuria or urinary urgency Musculoskeletal Musculoskeletal: Denies arthralgias or myalgias Integumentary Denies rash Neurologic Neurologic: Reports weakness EXAM <JOCELYN Saba - Last Filed: 05/23/24 19:17> Physical Exam Const Vital Signs: 05/23/24 15:25 05/23/24 17:24 05/23/24 18:30 Temperature 98.2 F 97.2 F L Temperature Source Temporal Pulse Rate 57 L 63 95 Respiratory Rate 18 17 22 H Blood Pressure 161/66 H 127/67 H 157/77 H Blood Pressure Mean 97 87 103 Pulse Ox 100 99 96 Oxygen Delivery Method Room Air Room Air Positive well nourished, well developed and no apparent distress General Appearance ED: well developed HEENT Reports normocephalic and head/scalp atraumatic Mouth ED: Yes moist mucous membranes normal Eyes EOMs intact bilaterally Eyes Narrative: Pinpoint pupils bilaterally Neck full ROM and supple Chest Wall inspection of chest normal Resp normal respiratory effort and clear to auscultation bilaterally Cardio regular rate and regular rhythm GI soft to palpation, non-tender, non-distended and no masses Palpation: Negative for guarding Back/Spine normal ROM and normal to inspection Extremity normal to inspection and full ROM Neuro oriented x3, CN's II-XII intact bilaterally, moves all extremities, no focal motor deficits and no sensory deficits noted Sensorium / Orientation: awake and alert Psych mental status grossly normal and thought process normal Skin no rashes or lesions noted and no wounds <Dr. Melo Choe DO - Last Filed: 05/23/24 19:21> Physical Exam Const Vital Signs: 05/23/24 15:25 05/23/24 17:24 05/23/24 18:30 Temperature 98.2 F 97.2 F L Temperature Source Temporal Pulse Rate 57 L 63 95 Respiratory Rate 18 17 22 H Blood Pressure 161/66 H 127/67 H 157/77 H Blood Pressure Mean 97 87 103 Pulse Ox 100 99 96 Oxygen Delivery Method Room Air Room Air [facility] <JOCELYN Saba - Last Filed: 05/23/24 19:17> [facility] Narrative Medical decision making narrative: Patient presenting today due to nausea and dry heaving that started last night. The triage note reports that patient has not been acting right, I did clarify this with the daughter who reports that he has been acting his normal self, he is just more weak and fatigued than usual. She reports that the nurse at the facility told her that his pupils were dilated, on my exam he does have pinpoint pupils. He does not appear fatigued but otherwise is alert and orientedx4, he does not appear altered, no deficits with an NIH of 0. Labs will be obtained and are largely unremarkable. He was medicated here with IV fluids and Zofran. CT scan of the abdomen and pelvis is concerning for a mass to the right breast concerning for malignancy. He also has a few pulmonary nodules concerning for metastatic disease as well as pelvic and retroperitoneal adenopathy and bilateral axillary adenopathy. On exam he does have a lesion to the right nipple that does not appear infected. He has slight tenderness to the right breast with a small underlying mass. These findings were communicated with the patient and his daughter and they are understanding. I did speak with Dr. Vergara, he can perform a biopsy of the right breast as an outpatient, patient was given this referral. We did discuss patient's care with the group home facility and they are comfortable with him being discharged back. He was given a prescription for Zofran. He has had no vomiting here. He will be discharged home in stable condition. Supervisory Physician Note Patient was seen and examined with the Advanced Practice Provider. Nursing notes and vital signs have been reviewed. Pertinent old records have been reviewed. I agree with the essential elements of the JUSTIN's history, physical exam, assessment, and plan. The differential diagnosis and management options were discussed with the JUSTIN. I participated in determining and agree with the management, procedures, final impression and disposition as documented. See changes noted by me. Please see addendum or separate note for any additional details. 83-year-old gentleman with history of proximal A-fib, hypotension, hypothyroidism presents for evaluation of nausea and vomiting. History taken by patient as well as daughter. Onset of symptoms last night. Associated symptom is mild diffuse abdominal pain. Denies diarrhea or bloody emesis. Denies fever, chills, chest pain, shortness of breath, URI symptoms, dysuria. Patient resides at a long-term care facility. Per daughter the nursing staff noticed that his pupils were dilated and that the patient appeared more fatigued which is why they brought him for further evaluation. No reported confusion or falls. Gen: Fatigued but easily arousable, O x3, NAD Head: Normocephalic, atraumatic Eyes: No sclera icterus, conjunctiva clear, PERRL but pinpoint and not dilated, EOMI ENT: Dry mucous membranes Neck: Trachea midline, No JVD, no meningismus CV: RRR, no murmurs, no peripheral edema, right breast mass with ulceration of the right nipple-mildly tender to palpation Resp: Lungs CTA BL, no w/r/c GI: Abd soft, mild tenderness to palpation diffusely, , no r/r/g : Circumcised penis. No penile tenderness or discharge. No penile or testicular swelling. Normal lie and position of the testicles. No testicular tenderness, masses, or skin changes. Musc: Moves all extremity Skin: Warm, chronic left Achilles wound-not infected Neuro: Oriented, grossly intact, sensation intact Psych: Cooperative, appropriate mood and affect Patient presents for evaluation of nausea and vomiting. Onset yesterday. Mild diffuse abdominal pain. Triage notes that the patient did not appear to be acting right and had dilated pupils. Daughter states that the patient has not been confused. She states the only difference from his baseline is that he has been more fatigued. She states she did not notice the dilated pupils but that the group home stated that he had dilated pupils. Patient's pupils are not dilated on exam. They are pinpoint. No narcotic use that daughter knows of. Differential diagnosis includes but is not limited to viral illness, UTI, diverticulitis, pancreatitis, cholecystitis, electrolyte abnormality, pneumonia. Laboratory workup including CT abdomen pelvis. Patient ordered fluids and Zofran. EKG and chest x-ray reviewed see below. CBC without leukocytosis. Patient has baseline anemia. CMP relatively unremarkable. No KAI. No transaminitis. Lipase unremarkable. UA positive for blood but patient was straight cath. No UTI. Talk screen negative. CT abdomen pelvis shows soft tissue mass subcutaneous right lower anterior chest suspicious for primary breast malignancy. This does correlate with the patient's physical exam. Pelvic and retroperitoneal adenopathy and bilateral axillary adenopathy etc. partially included in the lower chest. May be consistent with metastatic disease versus lymphoma. He has a few pulmonary nodules in the right middle lobe again suspicious for malignancy/metastatic disease. Patient will need repeat imaging as well as further workup for these things. At this point in time, no clear etiology for patient's nausea and vomiting. I suspect viral etiology. Patient and daughter were updated of all the results and the findings especially about the possible diagnosis of metastatic breast cancer versus lymphoma. Daughter confirmed understanding. He will need to follow-up outpatient for this with his PCP as well as general surgery which we will refer to. Nursing facility was contacted and they are comfortable with patient discharging home. Patient will be given a prescription for Zofran. Return precautions explained. EKG: Interpreted by me/EM physician: EKG shows sinus bradycardia with a heart rate of 51 no acute ischemic changes Diagnostic: Interpreted by me/EM physician: Chest x-ray without pneumonia, effusion, cardiomegaly, pneumothorax Impression: 1 Nausea and vomiting, suspect viral etiology. 2. Soft tissue mass in the right chest suspicious for primary breast malignancy 3. Pelvic and retroperitoneal adenopathy may be consistent with metastatic disease versus lymphoma 4. Pulmonary nodules possible diagnosis of metastatic breast cancer Lab Data Attestation: I reviewed the patient's lab results. Lab results narrative: H&H of 11.6 and 35.2, BUN 28, alkaline phosphatase 122, UA negative for UTI, urine drug screen is negative. Labs: Laboratory Results - last 24 hr 05/23/24 05/23/24 15:41 15:55 WBC 11.0 RBC 3.69 L Hgb 11.6 L Hct 35.2 L MCV 95.4 H MCH 31.4 MCHC 33.0 RDW Std Deviation 48.9 H RDW Coeff of [place] 14.2 Plt Count 339 MPV 9.8 Immature Gran % (Auto) 0.500 Neut % (Auto) 91.3 H Lymph % (Auto) 4.3 L [place] % (Auto) 3.5 Eos % (Auto) 0.2 Baso % (Auto) 0.2 Absolute Neuts (auto) 10.1 H Absolute Lymphs (auto) 0.47 L Nucleated RBC % 0 Sodium 138 Potassium 4.1 Chloride 101 Carbon Dioxide 28.0 Anion Gap 8 BUN 28 H Creatinine 0.73 Est GFR (MDRD) Af Amer 132 Est GFR (MDRD) Non-Af 109 BUN/Creatinine Ratio 38.5 H Glucose 163 H Calcium 8.9 Total Bilirubin 0.40 AST 19 ALT 35 Alkaline Phosphatase 122 H Troponin I High Sens 45 Total Protein 8.0 Albumin 3.5 Globulin 4.5 H Albumin/Globulin Ratio 0.8 L Lipase 47 Urine Color Yellow Urine Clarity Clear Urine pH 5.0 Ur Specific [place] 1.030 Urine Protein 100 H Urine Glucose (UA) 100 H Urine Ketones Negative Urine Occult Blood 150 H Urine Nitrite Negative Urine Bilirubin Negative Urine Urobilinogen Normal Ur Leukocyte Esterase Negative Urine RBC 0-5 SEEN Urine WBC Not Reportable Ur Squamous Epith Cells 0-5 SEEN Urine Bacteria 0 SEEN Urine Mucus 0 SEEN Urine Opiates Screen NEGATIVE Urine Methadone Screen NEGATIVE Ur Barbiturates Screen NEGATIVE Ur Phencyclidine Scrn NEGATIVE Ur Amphetamines Screen NEGATIVE MDMA (Ecstasy) Screen NEGATIVE U Benzodiazepines Scrn NEGATIVE Urine Cocaine Screen NEGATIVE U Cannabinoids Screen NEGATIVE Ur Drug Screen Comment Radiography Diagnostic Testing: Clinical Impression(s) from Imaging Studies Abdomen/Pelvis CT 05/23/24 15:39 IMPRESSION: 1. Soft tissue mass subcutaneous right lower anterior chest wall likely inferior/lateral breast. Suspicious for primary breast malignancy. 2. Pelvic and retroperitoneal adenopathy, and bilateral axillary adenopathy partially included in lower chest. This may be consistent with metastatic disease, versus lymphoma. 3. Cholelithiasis. 4. A few pulmonary nodules in the right middle lobe largest 6 mm. Given the additional findings suspicious for malignancy/metastatic disease. Fleischner Society follow-up recommendation for high risk patient: CT chest at 3-6 months, or as otherwise indicated based on the additional findings. *Fleischner Society Recommendations (Radiology 2017, 284:228-243.) (Follow-up and management of multiple nodules smaller than 8 mm detected incidentally at non-screening CT. Newly detected indeterminate nodule in persons 35 years of age or older.) Low risk patient: Minimal or absent history of smoking and of other known risk factors. < 6 mm: No followup needed 6-8mm: Initial Follow-up CT at 3-6 months, then consider CT at 18-24 months >8mm: CT at 3-6 months, then consider CT at 18-24 months High risk patient: History of smoking or of other known risk factors. < 6 mm: Optional CT at 12 months. 6-8mm: CT at 3-6 months, then CT at 18-24 months. >8mm: CT at 3-6 months, then CT at 18-24 months Electronically Signed: Kristyn Jung MD at 17:38 EST Reading Location ID and State: [facility] / [place] Tel , Service support , <Dr. Melo Choe, DO - Last Filed: 05/23/24 19:21> [facility] Narrative Medical decision making narrative: Patient presenting today due to nausea and dry heaving that started last night. The triage note reports that patient has not been acting right, I did clarify this with the daughter who reports that he has been acting his normal self, he is just more weak and fatigued than usual. She reports that the nurse at the facility told her that his pupils were dilated, on my exam he does have pinpoint pupils. He does not appear fatigued but otherwise is alert and orientedx4, he does not appear altered, no deficits with an NIH of 0. Labs will be obtained and are largely unremarkable. He was medicated here with IV fluids and Zofran. CT scan of the abdomen and pelvis is concerning for a mass to the right breast concerning for malignancy. He also has a few pulmonary nodules concerning for metastatic disease as well as pelvic and retroperitoneal adenopathy and bilateral axillary adenopathy. On exam he does have a lesion to the right nipple that does not appear infected. He has slight tenderness to the right breast with a small underlying mass. These findings were communicated with the patient and his daughter and they are understanding. I did speak with Dr. Vergara, he can perform a biopsy of the right breast as an outpatient, patient was given this referral. We did discuss patient's care with the group home facility and they are comfortable with him being discharged back. He was given a prescription for Zofran. He has had no vomiting here. He will be discharged home in stable condition. Supervisory Physician Note Patient was seen and examined with the Advanced Practice Provider. Nursing notes and vital signs have been reviewed. Pertinent old records have been reviewed. I agree with the essential elements of the JUSTIN's history, physical exam, assessment, and plan. The differential diagnosis and management options were discussed with the JUSTIN. I participated in determining and agree with the management, procedures, final impression and disposition as documented. See changes noted by me. Please see addendum or separate note for any additional details. 83-year-old gentleman with history of proximal A-fib, hypotension, hypothyroidism presents for evaluation of nausea and vomiting. History taken by patient as well as daughter. Onset of symptoms last night. Associated symptom is mild diffuse abdominal pain. Denies diarrhea or bloody emesis. Denies fever, chills, chest pain, shortness of breath, URI symptoms, dysuria. Patient resides at a long-term care facility. Per daughter the nursing staff noticed that his pupils were dilated and that the patient appeared more fatigued which is why they brought him for further evaluation. No reported confusion or falls. Gen: Fatigued but easily arousable, O x3, NAD Head: Normocephalic, atraumatic Eyes: No sclera icterus, conjunctiva clear, PERRL but pinpoint and not dilated, EOMI ENT: Dry mucous membranes Neck: Trachea midline, No JVD, no meningismus CV: RRR, no murmurs, no peripheral edema, right breast mass with ulceration of the right nipple-mildly tender to palpation Resp: Lungs CTA BL, no w/r/c GI: Abd soft, mild tenderness to palpation diffusely, , no r/r/g : Circumcised penis. No penile tenderness or discharge. No penile or testicular swelling. Normal lie and position of the testicles. No testicular tenderness, masses, or skin changes. Musc: Moves all extremity Skin: Warm, chronic left Achilles wound-not infected Neuro: Oriented, grossly intact, sensation intact Psych: Cooperative, appropriate mood and affect Patient presents for evaluation of nausea and vomiting. Onset yesterday. Mild diffuse abdominal pain. Triage notes that the patient did not appear to be acting right and had dilated pupils. Daughter states that the patient has not been confused. She states the only difference from his baseline is that he has been more fatigued. She states she did not notice the dilated pupils but that the group home stated that he had dilated pupils. Patient's pupils are not dilated on exam. They are pinpoint. No narcotic use that daughter knows of. Differential diagnosis includes but is not limited to viral illness, UTI, diverticulitis, pancreatitis, cholecystitis, electrolyte abnormality, pneumonia. Laboratory workup including CT abdomen pelvis. Patient ordered fluids and Zofran. EKG and chest x-ray reviewed see below. CBC without leukocytosis. Patient has baseline anemia. CMP relatively unremarkable. No KAI. No transaminitis. Lipase unremarkable. UA positive for blood but patient was straight cath. No UTI. Talk screen negative. CT abdomen pelvis shows soft tissue mass subcutaneous right lower anterior chest suspicious for primary breast malignancy. This does correlate with the patient's physical exam. Pelvic and retroperitoneal adenopathy and bilateral axillary adenopathy etc. partially included in the lower chest. May be consistent with metastatic disease versus lymphoma. He has a few pulmonary nodules in the right middle lobe again suspicious for malignancy/metastatic disease. Patient will need repeat imaging as well as further workup for these things. At this point in time, no clear etiology for patient's nausea and vomiting. I suspect viral etiology. Patient and daughter were updated of all the results and the findings especially about the possible diagnosis of metastatic breast cancer versus lymphoma. Daughter confirmed understanding. He will need to follow-up outpatient for this with his PCP as well as general surgery which we will refer to. Nursing facility was contacted and they are comfortable with patient discharging home. Patient will be given a prescription for Zofran. Return precautions explained. EKG: Interpreted by me/EM physician: EKG shows sinus bradycardia with a heart rate of 51 no acute ischemic changes Diagnostic: Interpreted by me/EM physician: Chest x-ray without pneumonia, effusion, cardiomegaly, pneumothorax Impression: 1 Nausea and vomiting, suspect viral etiology. 2. Soft tissue mass in the right chest suspicious for primary breast malignancy 3. Pelvic and retroperitoneal adenopathy may be consistent with metastatic disease versus lymphoma 4. Pulmonary nodules possible diagnosis of metastatic breast cancer Lab Data Labs: Laboratory Results - last 24 hr 05/23/24 05/23/24 15:41 15:55 WBC 11.0 RBC 3.69 L Hgb 11.6 L Hct 35.2 L MCV 95.4 H MCH 31.4 MCHC 33.0 RDW Std Deviation 48.9 H RDW Coeff of [place] 14.2 Plt Count 339 MPV 9.8 Immature Gran % (Auto) 0.500 Neut % (Auto) 91.3 H Lymph % (Auto) 4.3 L [place] % (Auto) 3.5 Eos % (Auto) 0.2 Baso % (Auto) 0.2 Absolute Neuts (auto) 10.1 H Absolute Lymphs (auto) 0.47 L Nucleated RBC % 0 Sodium 138 Potassium 4.1 Chloride 101 Carbon Dioxide 28.0 Anion Gap 8 BUN 28 H Creatinine 0.73 Est GFR (MDRD) Af Amer 132 Est GFR (MDRD) Non-Af 109 BUN/Creatinine Ratio 38.5 H Glucose 163 H Calcium 8.9 Total Bilirubin 0.40 AST 19 ALT 35 Alkaline Phosphatase 122 H Troponin I High Sens 45 Total Protein 8.0 Albumin 3.5 Globulin 4.5 H Albumin/Globulin Ratio 0.8 L Lipase 47 Urine Color Yellow Urine Clarity Clear Urine pH 5.0 Ur Specific [place] 1.030 Urine Protein 100 H Urine Glucose (UA) 100 H Urine Ketones Negative Urine Occult Blood 150 H Urine Nitrite Negative Urine Bilirubin Negative Urine Urobilinogen Normal Ur Leukocyte Esterase Negative Urine RBC 0-5 SEEN Urine WBC Not Reportable Ur Squamous Epith Cells 0-5 SEEN Urine Bacteria 0 SEEN Urine Mucus 0 SEEN Urine Opiates Screen NEGATIVE Urine Methadone Screen NEGATIVE Ur Barbiturates Screen NEGATIVE Ur Phencyclidine Scrn NEGATIVE Ur Amphetamines Screen NEGATIVE MDMA (Ecstasy) Screen NEGATIVE U Benzodiazepines Scrn NEGATIVE Urine Cocaine Screen NEGATIVE U Cannabinoids Screen NEGATIVE Ur Drug Screen Comment Radiography Diagnostic Testing: Clinical Impression(s) from Imaging Studies Abdomen/Pelvis CT 05/23/24 15:39 IMPRESSION: 1. Soft tissue mass subcutaneous right lower anterior chest wall likely inferior/lateral breast. Suspicious for primary breast malignancy. 2. Pelvic and retroperitoneal adenopathy, and bilateral axillary adenopathy partially included in lower chest. This may be consistent with metastatic disease, versus lymphoma. 3. Cholelithiasis. 4. A few pulmonary nodules in the right middle lobe largest 6 mm. Given the additional findings suspicious for malignancy/metastatic disease. Fleischner Society follow-up recommendation for high risk patient: CT chest at 3-6 months, or as otherwise indicated based on the additional findings. *Fleischner Society Recommendations (Radiology 2017, 284:228-243.) (Follow-up and management of multiple nodules smaller than 8 mm detected incidentally at non-screening CT. Newly detected indeterminate nodule in persons 35 years of age or older.) Low risk patient: Minimal or absent history of smoking and of other known risk factors. < 6 mm: No followup needed 6-8mm: Initial Follow-up CT at 3-6 months, then consider CT at 18-24 months >8mm: CT at 3-6 months, then consider CT at 18-24 months High risk patient: History of smoking or of other known risk factors. < 6 mm: Optional CT at 12 months. 6-8mm: CT at 3-6 months, then CT at 18-24 months. >8mm: CT at 3-6 months, then CT at 18-24 months Electronically Signed: Kristyn Jung MD at 17:38 EST , Discharge Plan Triage Chief Complaint: Nausea/Vomiting ED Midlevel Provider: Mallory Queen ED Provider: Melo Choe Dx/Rx/DC Orders Clinical Impression: Nausea & vomiting, Breast mass in male Instructions: ED Vomiting (Adult) Prescriptions: New ondansetron 4 mg tablet,disintegrating 4 mg PO Q8H PRN PRN (Reason: Nausea) Qty: 10 0RF No Action finasteride [Proscar] 5 mg tablet 5 mg PO DAILY cilostazol 50 mg tablet 50 mg PO BID acetaminophen 500 mg Tablet 1,000 mg PO Q6H PRN (Reason: Pain Score 1-10) ascorbic acid (vitamin C) 500 mg Tablet 500 mg PO 1200 Qty: 1 0RF ferrous sulfate [FeroSul] 325 mg (65 mg iron) Tablet 325 mg PO DAILY@1200 Qty: 1 0RF mirtazapine 7.5 mg tablet 7.5 mg PO QHS ammonium lactate 12 % cream 1 applic topical QHS tizanidine 2 MG tablet 2 mg PO QHS PRN (Reason: muscle spasm) Qty: 30 0RF gabapentin 100 mg capsule 100 mg PO BIDCM Qty: 30 0RF (DME) compression socks, medium Misc See Rx Instructions .ROUTE Qty: 2 0RF Rx Instructions: As directed vitamin [id number] acid 0.5-1 mg tablet 1 tab PO DAILY pantoprazole [Protonix] 40 mg tablet,delayed release (DR/EC) 40 mg PO DAILY Qty: 60 0RF atorvastatin 20 mg tablet 20 mg PO QHS sucralfate [Carafate] 100 mg/mL suspension 1 g PO 4X/DAY Rx Instructions: BEFORE MEALS AND AT BEDTIME hydrocortisone 2.5 % cream 1 applic topical BID nystatin 100,000 unit/gram ointment 1 applic topical BID prednisone 5 mg Tablet 10 mg PO DAILY Qty: 0 0RF midodrine 5 mg Tablet 5 mg PO TIDCM Qty: 0 0RF levothyroxine 25 mcg Tablet 12.5 mcg PO DAILY@0600 Qty: 0 0RF Primary Care Provider: Ankur Medina Referrals: Primo Vergara MD [Med Staff - Active Staff] - 5-7 Days Ankur Medina DO [Primary Care Provider] - Activity Restrictions/Additional Instructions: Your CT scan today showed pulmonary nodules, a mass in the right breast, and lymphadenopathy concerning for primary breast cancer with possible metastatic disease versus lymphoma. Please call Dr. Vergara's office Saturday morning to make an appointment for biopsy of the right breast. Please also follow-up with your PCP. Return for any other concerns. Print Language: Tuvaluan Disposition Disposition: Home, Self Care Discharge Date/Time: 05/23/24 19:01
--- NOTE | 2024-05-23 15:49 | EKG12_ITS ---
Test Reason : N/V Blood Pressure : */* mmHG Vent. Rate : 51 BPM Atrial Rate : 51 BPM P-R Int : 154 ms QRS Dur : 120 ms QT Int : 492 ms P-R-T Axes : 54 -31 100 degrees QTcB Int : 453 ms Sinus bradycardia Left axis deviation Left ventricular hypertrophy with QRS widening and repolarization abnormality ( R in aVL , Efren pr oduct ) Abnormal ECG Confirmed by Darrius Duque ([id number]), magazine editor ESTRELLA CARRILLO ([id number]) on 05/25/2024 11:37:49 AM Referred By: Confirmed By: Darrius Duque
[2024-05-23 15:57] LABS: Absolute Lymphocyte Count 0.47 X10^3/uL (0.83-4.51); Absolute Neutrophil Count 10.1 X10^3/uL (2.0-7.7); Basophil# 0.02 X10^3/uL; Basophil% 0.2 % (0-1); Eosinophil# 0.02 X10^3/uL; Eosinophils% 0.2 % (0-5); Hematocrit 35.2 % (40-54); Hemoglobin 11.6 g/dL (13.0-16.5); Lymphocyte # 0.47 X10^3/ul (0.83-4.51); Lymphocyte % 4.3 % (19-41); Mean Corpuscular Hgb 31.4 pg (27.0-32.0); Mean Corpuscular Volume 95.4 fL (80-94); Mean Platelet Vol. 9.8 fl (6.2-12.0); Monocyte# 0.39 X10^3/uL; Monocyte% 3.5 % (0-10); NRBC Flagged by Analyzer 0 % (0-5); Neutrophil # 10.08 X10^3/uL (2.7-7.7); Neutrophil % 91.3 % (47-70); POSITIVE DIFFERENTIAL YES; Platelet Count 339 K/mm3 (150-450); RBC Distribution Width CV 14.2 % (11.6-14.6); RBC Distribution Width SD 48.9 fl (35.1-43.9); Red Blood Count 3.69 M/mm3 (4.6-6.2)
[2024-05-23] MEDS: Ondansetron 4 MG/2 ML Vial IV (15:59)
[2024-05-23] MEDS: 0.9% Normal Saline (1000mL) 1,000 ML 999 ML IV (15:59)
[2024-05-23 16:04] LABS: Bacteria 0 SEEN /hpf (None Seen); Mucous, Urine 0 SEEN /hpf (<or=2+)
[2024-05-23 16:08] LABS: Color, Urine Yellow (Yellow); Glucose, Dipstick 100 mg/dl (Normal); Ketone-Dipstick Negative (Negative); Leukocyte Esterase-Dipstick Negative /ul (Negative); Nitrite-Dipstick Negative (Negative); Occult Blood-Urine 150 /ul (Negative); Protein-Dipstick 100 mg/dl (Negative); Urine Bilirubin Dipstick Negative (Negative); Urine Clarity Clear (Clear); Urine Urobilinogen Normal (Normal)
[2024-05-23 16:17] LABS: Amphetamine Urine VISTA NEGATIVE (<1000 ng/mL); Barbiturate Urine VISTA NEGATIVE (< 200 ng/mL); Benzodiazepine Urine VISTA NEGATIVE (< 200 ng/mL); Cocaine Urine VISTA NEGATIVE (< 300 ng/mL); Ecstacy Urine VISTA NEGATIVE (< 500 ng/mL); Methadone Urine VISTA NEGATIVE (< 300 ng/mL); PCP Urine VISTA NEGATIVE (< 25 ng/mL); THC Urine VISTA NEGATIVE (< 50 ng/mL); Vista UDS pH Range 4
[2024-05-23 16:19] LABS: ALB/GLOB Ratio 0.8 RATIO (0.9-2.4); AST(SGOT) 19 U/L (15-37); Alanine Aminotransfer ALT/SGPT 35 U/L (16-61); Albumin, Serum 3.5 g/dL (3.2-5.0); Alkaline Phosphatase 122 U/L (45-117); Anion Gap 8 (5-15); BUN 28 mg/dL (7-18); BUN/Creat Ratio 38.5 RATIO (10-20); Calcium,Total 8.9 mg/dL (8.5-10.1); Chloride 101 mmol/L (98-107); Creatinine, Serum 0.73 mg/dL (0.70-1.30); EST Glomerular Filtration Rate 109 mL/min (>60); Est Glom Filt Rate - Afr Amer 132 mL/min (>60); Globulin 4.5 g/dL (2.2-4.2); Glucose 163 mg/dL (74-106); Lipase 47 U/L (13-75); Potassium 4.1 mmol/L (3.5-5.1); Sodium Level 138 mmol/L (136-145); Troponin-I HS 45 pg/mL (3.0-78.0)
[2024-05-23 16:28] LABS: Red Blood Cells-Urine 0-5 SEEN /hpf (0-5); Squamous Epithelial Cells - UA 0-5 SEEN /hpf (0-5)
--- NOTE | 2024-05-23 17:00 | RAD_ITS ---
INDICATION: weakness EXAMINATION/TECHNIQUE: X-RAY - XR Chest 2 Views COMPARISON: Prior study dated: 02/25/2024 FINDINGS: LINES/DEVICES: None. LUNGS: No consolidation. No pneumothorax. MEDIASTINUM: Aorta is tortuous and atherosclerotic. CARDIAC SILHOUETTE: Not enlarged. BONES AND SOFT TISSUES: No acute abnormalities. Degenerative changes of the dorsal spine. RAD/Chest PA and Lateral IMPRESSION: No evidence of active intrathoracic disease. Electronically Signed: Kristyn Jung MD at 0:32 EST ,
[2024-05-23 17:24] VITALS: BP 127/67; PULSE 63; RESP 17; O2SAT 99
[2024-05-23 18:30] VITALS: BP 157/77; PULSE 95; RESP 22; TEMP 36.2; O2SAT 96
== END 2024-05-23 19:01 | disposition skilled nursing facility (03) ==
PROVIDERS: Physician Assistant; Emergency Provider Surgery; PCP Family Medicine; Visit Provider Surgery
DX: R11.2 Nausea with vomiting, unspecified (principal); N63.10 Unspecified lump in the right breast, unspecified quadrant; R91.8 Other nonspecific abnormal finding of lung field; R59.0 Localized enlarged lymph nodes; I25.10 Atherosclerotic heart disease of native coronary artery without angina pectoris; I10 Essential (primary) hypertension; I25.2 Old myocardial infarction; E78.5 Hyperlipidemia, unspecified; Z95.5 Presence of coronary angioplasty implant and graft; Z79.899 Other long term (current) drug therapy; Z87.891 Personal history of nicotine dependence
CPT/HCPCS: 71046; 74177; 80053; 80307; 81001; 83690; 84484; 85025; 93005; 96361; 96374; 99282; Q9967; A4216; J2405

== ENCOUNTER 2024-05-27 09:32 | Inpatient (IN) | payer MEDICARE, BC, SELFPAY ==
[2024-05-27] VITALS (36 sets, daily range): BP systolic 64–143; BP diastolic 39–94; PULSE 45–70; RESP 11–22; TEMP 36–36.6; O2SAT 87–99; BMI 27.6; BMI 27.3
--- NOTE | 2024-05-27 09:47 | EKG12_ITS ---
Test Reason : HYPOGLYCEMIA Blood Pressure : */* mmHG Vent. Rate : 53 BPM Atrial Rate : 53 BPM P-R Int : 184 ms QRS Dur : 128 ms QT Int : 422 ms P-R-T Axes : 61 -28 133 degrees QTcB Int : 395 ms Sinus bradycardia with marked sinus arrhythmia Left ventricular hypertrophy with QRS widening and repolarization abnormality ( R in aVL , [place] pr oduct ) Cannot rule out Septal infarct , age undetermined Abnormal ECG Confirmed by Darrius Duque ([id number]), business editor JUSTINE WILSON ([id number]) on 05/28/2024 1:04:45 PM Referred By: Confirmed By: Darrius Duque
--- NOTE | 2024-05-27 09:55 | EX.ED.DYSGE1 ---
HPI History of Present Illness Chief Complaint: Hypoglycemia Informant: patient and EMS Narrative Narrative: Sent in by EMS from [facility]. Per EMS called out for altered mental status. Last normal 7 AM. 830 he was drooling. EMS arrival glucose was 33 he was hypotensive. He is given D10 with improvement of symptoms. Patient is nondiabetic. Currently end of the 3 denies cough denies vomiting diarrhea. Denies urinary symptoms. History of coronary disease. Unclear of any history of heart failure. Patient reports recently more wheelchair transport. Nursing confirmed with facility, can perform his own activities of living on the wheelchair. Of note was seen 4 days ago for nausea and vomiting found to have right chest mass concerning for mets versus lymphoma. Echocardiogram January 2024 EF of 55%. Blood pressure 140s with systolic 150s. 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) Essential hypertension Peripheral arterial occlusive disease History of basal cell cancer Cervical radiculopathy Stenosis of cervical spine with myelopathy Debility Restless leg syndrome Normochromic normocytic anemia Orthostatic hypotension Depression Urine retention Urinary incontinence Left ventricular hypertrophy BPH (benign prostatic hyperplasia) Pressure ulcer Myelopathy Tobacco dependence in remission Renal cyst Osteoarthritis Microscopic hematuria Eczema Anterolisthesis Leg swelling PAD (peripheral artery disease) Hyperlipidemia Atherosclerotic heart disease of [place] coronary artery without angina pectoris Paroxysmal atrial fibrillation Dilated aortic root Home Medications ?Medication ?Instructions ?Recorded ?Last Taken ?Type finasteride 5 mg tablet (Proscar) 5 mg PO DAILY PROSTATES 07/18/17 02/25/24 History cilostazol 50 mg tablet 50 mg PO BID vasodilator 02/02/22 02/25/24 History acetaminophen 500 mg tablet 1,000 mg PO Q6H PRN Pain Score 1-10 07/15/23 02/25/24 History ascorbic acid (vitamin C) 500 mg 500 mg PO 1200 #1 TAB 07/25/23 02/24/24 Rx tablet ferrous sulfate 325 mg (65 mg 325 mg PO DAILY@1200 #1 TAB 07/25/23 02/24/24 Rx iron) tablet (FeroSul) ammonium lactate 12 % topical cream 1 applic topical QHS 11/30/23 02/24/24 History mirtazapine 7.5 mg tablet 7.5 mg PO QHS 11/30/23 02/24/24 History compression socks, medium #2 ea 12/04/23 Unknown Rx gabapentin 100 mg capsule 100 mg PO BIDCM nerve pain #30 caps 12/04/23 02/25/24 Rx tizanidine 2 mg tablet 2 mg PO QHS PRN muscle spasm #30 12/04/23 02/24/24 Rx tabs vitamin B12 0.5 mg-folic acid 1 mg 1 tab PO DAILY 02/09/24 02/25/24 History tablet pantoprazole 40 mg tablet,delayed 40 mg PO DAILY #60 tabs 02/12/24 02/25/24 Rx release (Protonix) atorvastatin 20 mg tablet 20 mg PO QHS 02/25/24 02/24/24 History hydrocortisone 2.5 % topical cream 1 applic topical BID 02/25/24 02/24/24 History nystatin 100,000 unit/gram topical 1 applic topical BID 02/25/24 02/24/24 History ointment sucralfate 100 mg/mL oral 1 g PO 4X/DAY 02/25/24 Unknown History suspension (Carafate) levothyroxine 25 mcg tablet 12.5 mcg (1/2 x 25 mcg) PO 02/27/24 Unknown Rx DAILY@0600 #0 tabs midodrine 5 mg tablet 5 mg PO TIDCM #0 tabs 02/27/24 Unknown Rx prednisone 5 mg tablet 10 mg (2 x 5 mg) PO DAILY #0 tabs 02/27/24 Unknown Rx ondansetron 4 mg disintegrating 4 mg PO Q8H PRN PRN Nausea #10 tabs 05/23/24 Unknown Rx tablet Allergy/AdvReac Type Severity Reaction Status Date / Time morphine AdvReac Intermediate Other Verified 05/27/24 09:42 Family History Mother CHF (congestive heart failure) Heart disease Hypertension Father COPD (chronic obstructive pulmonary disease) Surgical History S/P debridement History of vascular surgery History of coronary artery stent placement (01/11/16) H/O laminectomy History of knee surgery S/P rotator cuff repair History of pilonidal cyst Social History household members: none housing: house number of children: 5 current occupation: retired current occupational exposures/hazards: No history of recent travel: No Smoking Status: Former smoker how long ago did patient quit smokin alcohol intake: current alcohol intake frequency: holidays/special occasions only details: occasional,holiday substance use type: does not use caffeine: Yes Type: coffee Number of servings: 10 what type of physical activity do you participate in: bicycling frequency: 1-2 times per week duration: 15-30 minutes/day seatbelt use: always do you feel safe at home: Yes ROS ROS ED Constitutional Constitutional ED: Denies chills, fever(s) or sweats Eyes Eyes: Denies change in vision ENT ENT ED: Denies dysphagia or sore throat Cardiovascular Cardiovascular: Denies chest pain, leg edema, palpitations or racing heartbeat Respiratory/Chest Respiratory/Chest: Denies cough, dyspnea or dyspnea on exertion Gastrointestinal Gastrointestinal: Denies abdominal pain, diarrhea, nausea or vomiting Genitourinary Genitourinary ED: Denies dysuria, hematuria or urinary frequency Musculoskeletal Musculoskeletal: Denies back pain, extremity pain or neck pain Integumentary Denies rash or wounds Neurologic Neurologic: Denies headache(s), paresthesias or weakness EXAM Physical Exam Const Vital Signs: 05/27/24 09:35 05/27/24 09:44 05/27/24 09:47 Temperature 96.8 F L Temperature Source Temporal Pulse Rate 58 L Respiratory Rate 18 Respiratory Effort Normal Non-Labored Respiratory Pattern Normal Blood Pressure 79/53 L Blood Pressure Mean 61 Pulse Ox 98 Oxygen Delivery Method Room Air Room Air 05/27/24 10:33 05/27/24 11:00 05/27/24 12:00 Temperature Temperature Source Pulse Rate 61 54 L 57 L Respiratory Rate 18 18 16 Respiratory Effort Respiratory Pattern Blood Pressure 96/62 91/66 79/41 L Blood Pressure Mean 73 74 53 Pulse Ox 96 96 98 Oxygen Delivery Method 05/27/24 13:00 05/27/24 14:00 Temperature Temperature Source Pulse Rate 48 L 50 L Respiratory Rate 16 14 Respiratory Effort Respiratory Pattern Blood Pressure 75/46 L 88/58 L Blood Pressure Mean 55 68 Pulse Ox 98 97 Oxygen Delivery Method Room Air Positive well nourished and well developed General Appearance ED: well developed and NAD HEENT Reports moist mucous membranes normocephalic and atraumatic Eyes EOMs intact bilaterally and conjunctivae normal General Eye ED: Yes normal appearance of both eyes Neck no lymphadenopathy and supple General: Negative for tenderness Chest Wall Chest Narrative: Right chest wall induration and scabbing around the [place]. No drainage. Chest: Negative for tenderness Resp normal respiratory effort and normal air movement Effort and Inspection: symmetric chest movement; Negative for respiratory distress Cardio regular rate, regular rhythm and no murmurs Peripheral Pulses: pulses 2+ throughout GI normal to inspection, nondistended, normoactive bowel sounds and non-tender Palpation: Negative for guarding or rebound tenderness present Back/Spine no CVA tenderness and no thoracic nor lumbar tenderness Extremity normal to inspection General Extremety ED: Negative for edema or tenderness General Extremity: Negative for edema Neuro oriented x3 and no sensory deficits noted Sensorium / Orientation: awake and alert Skin no rashes or lesions noted and no wounds Sepsis Attestation Possible Source of Sepsis: Unknown MDM MDM MDM Narrative Medical decision making narrative: Interventions / MDM: Differential diagnosis: Hypotension, persistent hypoglycemia, breast mass concerning for metastasis. Diagnosis considered but do not suspect: N/A My EKG interpretation: Sinus rate of 53, no ST changes. Imaging independently reviewed and interpreted by myself: 1 view chest x-ray: No acute process. CT brain: No acute process. CT chest abdomen pelvis: Soft tissue right breast mass chest wall, axillary lymphadenopathy, groundglass changes right lung concern for pneumonia versus metastasis. Abdomen with no pancreatic mass there is retroperitoneal and pelvic lymph nodes, cholelithiasis noted. External documents reviewed: N/A Test considered but not ordered:N/A ED course: Patient presenting with hypotension blood pressure 79/55 3. His glucose was 128 after D10 bolus from EMS. Sepsis labs were ordered with his hypotension. EF of 55% in January will order 30 cc/kg bolus for hypotension. Currently alert oriented x 3. He has no diabetes history. 1100: Glucose down to 57 he still alert and oriented x 3 will allow for orange juice will start D5 for his hypoglycemia. He had a CT scan 4 days of abdomen pelvis did not note any pancreatic masses that were reported. Unclear what is causing his hypoglycemia at this point. Will CT his brain with recent mass history along with chest abdomen pelvis for further evaluation. 1120: Blood pressure currently 96/62. Daughter currently present. I discussed rule out workup per patient. Daughter reports he is on midodrine for hypotension 5 mg 3 times a day. Did not take it this morning therefore ordered 5 mg of midodrine to be given in the ED. Lactic acid was 1.1 white count 7.9 hemoglobin 10.1. Creatinine 1.09. Sodium 134 potassium 3.4. 1400: CT results negative or any new acute process. Reported right lung infiltrate findings versus metastasis. He has no cough or concern for pneumonia. I did speak with hospitalist Dr. Rider who came down to see the patient. At that time pressure was down the 60s improvement fluids. We will broadly cover with antibiotics Zosyn and vancomycin. 1426: Recheck glucose again 87 on the D5. Is alert and orient x 3 blood pressure 80/58 MAP of 69 at this time. Cath urine only notes 25 leukocytes. Lactic acid was normal at 1.1. Patient will be admitted to ICU for further management. Re-evaluation: stable Disposition discussed with patient/family/significant other: Patient and daughter Case discussed with consulting clinician: N/A This note was generated with Micello dictation software. It may contain incorrect words, spelling, and punctuation that were not noted in checking the note before signing. Lab Data Attestation: I reviewed the patient's lab results. Labs: Laboratory Results - last 24 hr 05/27/24 05/27/24 05/27/24 09:38 10:00 11:01 WBC 7.9 RBC 3.29 L Hgb 10.1 L Hct 30.9 L MCV 93.9 MCH 30.7 MCHC 32.7 RDW Std Deviation 50.7 H RDW Coeff of [place] 14.7 H Plt Count 235 MPV 10.4 Immature Gran % (Auto) 0.500 Neut % (Auto) 79.5 H Lymph % (Auto) 9.8 L Knox % (Auto) 9.8 Eos % (Auto) 0.4 Baso % (Auto) 0.0 Absolute Neuts (auto) 6.3 Absolute Lymphs (auto) 0.78 L Nucleated RBC % 0 PT 14.2 INR 1.1 APTT 35.3 Sodium 134 L Potassium 3.4 L Chloride 97 L Carbon Dioxide 30.0 Anion Gap 7 BUN 37 H Creatinine 1.09 Estim Creat Clear Calc 51.35 Est GFR (MDRD) Af Amer 83 Est GFR (MDRD) Non-Af 69 BUN/Creatinine Ratio 33.9 H Glucose 128 H Lactic Acid 1.1 Calcium 8.6 Total Bilirubin 1.00 AST 20 ALT 24 Alkaline Phosphatase 109 Total Protein 6.3 L Albumin 2.6 L Globulin 3.7 Albumin/Globulin Ratio 0.7 L Urine Color Urine Clarity Urine pH Ur Specific [place] Urine Protein Urine Glucose (UA) Urine Ketones Urine Occult Blood Urine Nitrite Urine Bilirubin Urine Urobilinogen Ur Leukocyte Esterase Urine RBC Urine WBC Ur Squamous Epith Cells Urine Bacteria Urine Mucus POC Glucose 128 H 57 L 05/27/24 05/27/24 05/27/24 12:15 13:19 13:50 WBC RBC Hgb Hct MCV MCH MCHC RDW Std Deviation RDW Coeff of [place] Plt Count MPV Immature Gran % (Auto) Neut % (Auto) Lymph % (Auto) Knox % (Auto) Eos % (Auto) Baso % (Auto) Absolute Neuts (auto) Absolute Lymphs (auto) Nucleated RBC % PT INR APTT Sodium Potassium Chloride Carbon Dioxide Anion Gap BUN Creatinine Estim Creat Clear Calc Est GFR (MDRD) Af Amer Est GFR (MDRD) Non-Af BUN/Creatinine Ratio Glucose Lactic Acid Calcium Total Bilirubin AST ALT Alkaline Phosphatase Total Protein Albumin Globulin Albumin/Globulin Ratio Urine Color Yellow Urine Clarity Clear Urine pH 6.0 Ur Specific [place] 1.010 Urine Protein 30 H Urine Glucose (UA) Normal Urine Ketones 5 H Urine Occult Blood Negative Urine Nitrite Negative Urine Bilirubin Negative Urine Urobilinogen Normal Ur Leukocyte Esterase 25 H Urine RBC 0 SEEN Urine WBC 0-5 SEEN Ur Squamous Epith Cells 0-5 SEEN Urine Bacteria 0 SEEN Urine Mucus 0 SEEN POC Glucose 99 86 05/27/24 14:21 WBC RBC Hgb Hct MCV MCH MCHC RDW Std Deviation RDW Coeff of [place] Plt Count MPV Immature Gran % (Auto) Neut % (Auto) Lymph % (Auto) [place] % (Auto) Eos % (Auto) Baso % (Auto) Absolute Neuts (auto) Absolute Lymphs (auto) Nucleated RBC % PT INR APTT Sodium Potassium Chloride Carbon Dioxide Anion Gap BUN Creatinine Estim Creat Clear Calc Est GFR (MDRD) Af Amer Est GFR (MDRD) Non-Af BUN/Creatinine Ratio Glucose Lactic Acid Calcium Total Bilirubin AST ALT Alkaline Phosphatase Total Protein Albumin Globulin Albumin/Globulin Ratio Urine Color Urine Clarity Urine pH Ur Specific [place] Urine Protein Urine Glucose (UA) Urine Ketones Urine Occult Blood Urine Nitrite Urine Bilirubin Urine Urobilinogen Ur Leukocyte Esterase Urine RBC Urine WBC Ur Squamous Epith Cells Urine Bacteria Urine Mucus POC Glucose 87 Radiography Diagnostic Testing: Clinical Impression(s) from Imaging Studies Chest X-Ray 05/27/24 10:30 IMPRESSION: No significant interval change in mild right basilar atelectasis or inflammation. Electronically Signed: Rosette Ramirez MD at 11:09 EST , Brain CT 05/27/24 11:11 IMPRESSION: No acute intracranial process identified. Chronic involutional and white matter changes. Electronically Signed: Rosette Ramirez MD at 12:41 EST , Chest/Abdomen/Pelvis CT 05/27/24 11:11 IMPRESSION: Soft tissue mass of the right breast/chest wall, suspicious for malignancy. Multiple enlarged axillary and retropectoral lymph nodes with mildly prominent lower cervical lymph nodes, which may be secondary to metastases or lymphoma. Multiple nodular, groundglass, and alveolar opacities throughout the right lung concerning for pneumonia. Recommend follow-up to resolution to exclude metastases. Multiple enlarged retroperitoneal and pelvic lymph nodes, also concerning for metastases or lymphoma. Colonic diverticulosis without acute diverticulitis. Moderate stool in the colon. Cholelithiasis. Nonobstructing left renal calculus. Electronically Signed: Rosette Ramirez MD at 12:56 EST , Critical Care Time Critical Care Time: Yes Critical care time (excluding procedures): 30-74 minutes, Discussing w/Patient &/or Family/Chlorine Operator, Discussing w/Consultants, Arranging Admission or Transfer, Performing Direct Patient Care at Bedside and - (45 minutes) Discharge Plan Dx/Rx/DC Orders Clinical Impression: Hypotension, Breast mass in male, Hypoglycemia, Metastasis Disposition Disposition: Acute Care Hospital [facility]
[2024-05-27 09:57] LABS: Bedside Glucose 128 mg/dL (74-106)
[2024-05-27 10:20] LABS: Absolute Lymphocyte Count 0.78 X10^3/uL (0.83-4.51); Absolute Neutrophil Count 6.3 X10^3/uL (2.0-7.7); Eosinophil# 0.03 X10^3/uL; Eosinophils% 0.4 % (0-5); Hematocrit 30.9 % (40-54); Hemoglobin 10.1 g/dL (13.0-16.5); Lymphocyte # 0.78 X10^3/ul (0.83-4.51); Lymphocyte % 9.8 % (19-41); Mean Corp Hgb Conc 32.7 g/dL (32-36); Mean Corpuscular Hgb 30.7 pg (27.0-32.0); Mean Corpuscular Volume 93.9 fL (80-94); Mean Platelet Vol. 10.4 fl (6.2-12.0); Monocyte# 0.78 X10^3/uL; Monocyte% 9.8 % (0-10); NRBC Flagged by Analyzer 0 % (0-5); Neutrophil % 79.5 % (47-70); Platelet Count 235 K/mm3 (150-450); RBC Distribution Width CV 14.7 % (11.6-14.6); RBC Distribution Width SD 50.7 fl (35.1-43.9); Red Blood Count 3.29 M/mm3 (4.6-6.2); White Blood Count 7.9 K/mm3 (4.4-11.0)
[2024-05-27] MEDS: VIAFLEX IV (10:24)
[2024-05-27] MEDS: NORMAL SALINE IV (10:24)
[2024-05-27 10:30] LABS: International Normalized Ratio 1.1; Prothrombin Time (Protime)PT. 14.2 SECONDS (11.7-14.9)
--- NOTE | 2024-05-27 10:30 | RAD_ITS ---
HISTORY: hypotension. TECHNIQUE: XR Chest 1 View. COMPARISON: 05/23/2024. FINDINGS: CARDIOMEDIASTINAL BORDERS: Cardiac silhouette within normal limits in size. Mediastinal contour also unchanged with calcification of the aortic knob. LUNGS: Positioning limits evaluation of the lung apices. Chronic mild right basilar opacity with elevation of the right hemidiaphragm. PLEURA: No pleural effusion or pneumothorax seen. OSSEOUS STRUCTURES: Degenerative change. Surgical anchors in the left humeral head. RAD/Chest 1 View (Portable) IMPRESSION: No significant interval change in mild right basilar atelectasis or inflammation. Electronically Signed: Rosette Ramirez MD at 11:09 EST ,
[2024-05-27 10:31] LABS: Partial Thromboplast Time 35.3 Seconds (24.1-36.2)
[2024-05-27 10:53] LABS: Lactic Acid 1.1 mmol/L (0.4-1.9)
[2024-05-27 11:01] LABS: ALB/GLOB Ratio 0.7 RATIO (0.9-2.4); AST(SGOT) 20 U/L (15-37); Alanine Aminotransfer ALT/SGPT 24 U/L (16-61); Albumin, Serum 2.6 g/dL (3.2-5.0); Alkaline Phosphatase 109 U/L (45-117); Anion Gap 7 (5-15); BUN 37 mg/dL (7-18); BUN/Creat Ratio 33.9 RATIO (10-20); Calcium,Total 8.6 mg/dL (8.5-10.1); Chloride 97 mmol/L (98-107); Creatinine, Serum 1.09 mg/dL (0.70-1.30); EST Glomerular Filtration Rate 69 mL/min (>60); Est Glom Filt Rate - Afr Amer 83 mL/min (>60); Estimated Creatinine Clearance 51.35 ml/min; Globulin 3.7 g/dL (2.2-4.2); Glucose 128 mg/dL (74-106); Potassium 3.4 mmol/L (3.5-5.1); Protein, Total 6.3 g/dL (6.4-8.2); Sodium Level 134 mmol/L (136-145)
--- NOTE | 2024-05-27 11:11 | CT_ITS ---
HISTORY: confusion. TECHNIQUE: Multiple axial images were obtained of the head without intravenous contrast. A radiation dose optimization technique was used for this scan. 273 images. COMPARISON: 02/25/2024. FINDINGS: Artifact from suboptimal positioning. BRAIN PARENCHYMA: Multiple foci and zones of low attenuation in the bilateral cerebral white matter compatible with chronic small vessel ischemic gliosis. No acute intra-axial hemorrhage identified. CSF SPACES: Generalized volume loss. No midline shift or other significant mass effect. No acute extra-axial hemorrhage seen. OTHER: Intact calvarium. No significant air fluid levels in the paranasal sinuses or mastoid air cells. Degenerative and postoperative changes of the cervical spine. CT/Brain/Head without Contrast IMPRESSION: No acute intracranial process identified. Chronic involutional and white matter changes. Electronically Signed: Rosette Ramirez MD at 12:41 EST ,
--- NOTE | 2024-05-27 11:11 | CT_ITS ---
HISTORY: hypoglycemia, recent masses -- hypoglycemia, no hx diabetes, recent chest mass. TECHNIQUE: Helically acquired images were obtained of the chest, abdomen, and pelvis after the intravenous administration of 100 mL Isovue-370 100. No oral contrast was administered. 2-D reformatted images provided. A radiation dose optimization technique was used for this scan. 1416 images. COMPARISON: XR same day, CT 05/23/2024 FINDINGS: ----Chest: LARGE AIRWAYS: Mild pelvic fluid in the trachea and right bronchus. LUNGS: Multiple nodular and groundglass opacity throughout the right upper, middle, and lower lobes with right lower lobe consolidation containing bronchograms. PLEURA: No pneumothorax or significant pleural effusion. HEART AND PERICARDIUM: Heart within normal limits in size, with coronary artery calcification. No significant pericardial effusion. VESSELS: Thoracic aorta nondilated. Mild atherosclerosis. MEDIASTINUM AND CHRISTOPHER: Multiple small lower cervical and supraclavicular lymph nodes. Multiple enlarged retropectoral and axillary lymph nodes bilaterally measuring up to 3 cm. 2.5 x 4.5 cm lobulated right retroareolar mass. No pathologically enlarged mediastinal or hilar lymph nodes. BONES: Surgical anchors in the humeral heads. Degenerative change. ----Abdomen/Pelvis: BOWEL: Bowel including appendix nondilated. Moderate stool in the colon. Colonic diverticulosis without focal inflammatory change. PERITONEUM: No significant ascites. LIVER: No enhancing mass. GALLBLADDER/BILIARY TREE: Small calcified gallstones SPLEEN/PANCREAS: Homogeneous and nonenlarged. KIDNEYS: Right simple cysts; follow-up not indicated. 4 mm left lower pole calculus without hydronephrosis. ADRENAL GLANDS: Unremarkable. VESSELS: No abdominal aortic aneurysm. Atherosclerosis of the abdominal aorta and its major branches. Borderline to mildly enlarged retroperitoneal lymph nodes with ill-defined soft tissue stranding. PELVIC ORGANS: Unremarkable. Bilateral pelvic lymphadenopathy measuring up to 1.6 x 2.5 cm and the left pelvic sidewall and 4.7 cm in the right iliac chain extending to the inguinal region. BONES: Degenerative change CT/CT Chest, Abd, Pel w/Contrast IMPRESSION: Soft tissue mass of the right breast/chest wall, suspicious for malignancy. Multiple enlarged axillary and retropectoral lymph nodes with mildly prominent lower cervical lymph nodes, which may be secondary to metastases or lymphoma. Multiple nodular, groundglass, and alveolar opacities throughout the right lung concerning for pneumonia. Recommend follow-up to resolution to exclude metastases. Multiple enlarged retroperitoneal and pelvic lymph nodes, also concerning for metastases or lymphoma. Colonic diverticulosis without acute diverticulitis. Moderate stool in the colon. Cholelithiasis. Nonobstructing left renal calculus. Electronically Signed: Rosette Ramirez MD at 12:56 EST ,
[2024-05-27 11:22] LABS: Bedside Glucose 57 mg/dL (74-106)
[2024-05-27] MEDS: Dextrose 5%/0.9% NaCl 1,000 ML 100 ML IV (11:29)
[2024-05-27] MEDS: Midodrine HCl 5 MG Tablet PO (12:27)
[2024-05-27 12:32] LABS: Bedside Glucose 99 mg/dL (74-106)
[2024-05-27 13:40] LABS: Bedside Glucose 86 mg/dL (74-106)
[2024-05-27 13:59] LABS: Bacteria 0 SEEN /hpf (None Seen); Mucous, Urine 0 SEEN /hpf (<or=2+); Red Blood Cells-Urine 0 SEEN /hpf (0-5)
[2024-05-27 14:05] LABS: Color, Urine Yellow (Yellow); Glucose, Dipstick Normal (Normal); Ketone-Dipstick 5 mg/dl (Negative); Leukocyte Esterase-Dipstick 25 /ul (Negative); Nitrite-Dipstick Negative (Negative); Occult Blood-Urine Negative /ul (Negative); Protein-Dipstick 30 mg/dl (Negative); Urine Bilirubin Dipstick Negative (Negative); Urine Clarity Clear (Clear); Urine Urobilinogen Normal (Normal)
[2024-05-27 14:11] LABS: Squamous Epithelial Cells - UA 0-5 SEEN /hpf (0-5); White Blood Cells 0-5 SEEN /hpf (0-5)
--- NOTE | 2024-05-27 14:15 | PCM.HP.STD ---
HPI - General General Date of Admission: 05/27/24 Date of Service: 05/27/24 Chief Complaint: Altered mental status HPI Narrative SARA SAHA, is a 83-year-old male history of paroxysmal atrial fibrillation, hypertension, BPH, GERD, hypothyroidism presented [facility] ED 05/27/2024 for Fransisco Heredia for altered mental status. Last known normal at 7 AM, 830 he was drooling. EMS arrived and his glucose was 33 and he was hypotensive. He was given D10 with improvement of his symptoms, of note he is not diabetic. Was seen 4 days ago for nausea and vomiting and found to have a right chest mass concerning for mets versus lymphoma. He was hypotensive but did not take his midodrine yet this morning which he is on for his hypotension. In the ED symptoms did improve with dextrose and patient had improvement in his symptoms however it was unclear why he has been hypoglycemic and additionally he continued to be hypotensive. CT of his head within normal limits. CT chest/abdomen/pelvis with soft tissue mass in the right breast/chest wall suspicious for malignancy with multiple enlarged axillary lymph nodes and prominent lower cervical lymph nodes possibly secondary to metastasis or lymphoma. Additionally there was nodular groundglass and alveolar opacities throughout the right lung concerning for pneumonia but could be metastasis. Patient's glucose continued to downtrend despite receiving dextrose so he was placed on dextrose drip to maintain glucose, additionally blood pressure trended down to 60s over 40s in the ED and he was given 30 cc/kg of IV fluids, his dose of midodrine, and broad-spectrum antibiotics started in the event that there is underlying infection that is yet to be identified. Hospitalist contacted for admission. Patient evaluated with daughter at bedside, he had not been feeling well and was nauseous prompting him to come in on Saturday and was diagnosed with viral illness and sent home, Saturday he was doing better eating better and daughter reports he was closer to baseline doing well overall however she did not see him yesterday because of an appointment and was told he hardly ate and today he was found hypoglycemic and altered. Patient reports he has had a intermittent sore throat and stuffy nose and occasional headache over the left eye, additionally has had a lot of hiccups. Does not note a fever or chills, has a slight intermittent dry cough and is intermittently lightheaded. No chest pain or shortness of breath, sometimes will get some sharp left-sided abdominal pain that is brief and goes away on its own, denies diarrhea, urinates frequently but denies any burning on urination. Does have his chronic wound on left foot that has been healing. Of note patient had chest wall mass that was identified and was called today by Dr. Vergara's office as they are going to undergo further workup with imaging and possible biopsy but this is to be scheduled once patient medically stable. 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) Essential hypertension Peripheral arterial occlusive disease History of basal cell cancer Cervical radiculopathy Stenosis of cervical spine with myelopathy Debility Restless leg syndrome Normochromic normocytic anemia Orthostatic hypotension Depression Urine retention Urinary incontinence Left ventricular hypertrophy BPH (benign prostatic hyperplasia) Pressure ulcer Myelopathy Tobacco dependence in remission Renal cyst Osteoarthritis Microscopic hematuria Eczema Anterolisthesis Leg swelling PAD (peripheral artery disease) Hyperlipidemia Atherosclerotic heart disease of [place] coronary artery without angina pectoris Paroxysmal atrial fibrillation Dilated aortic root Home Medications ?Medication ?Instructions ?Recorded ?Last Taken ?Type finasteride 5 mg tablet (Proscar) 5 mg PO DAILY PROSTATES 07/18/17 02/25/24 History cilostazol 50 mg tablet 50 mg PO BID vasodilator 02/02/22 02/25/24 History acetaminophen 500 mg tablet 1,000 mg PO Q6H PRN Pain Score 1-10 07/15/23 02/25/24 History ascorbic acid (vitamin C) 500 mg 500 mg PO 1200 #1 TAB 07/25/23 02/24/24 Rx tablet ferrous sulfate 325 mg (65 mg 325 mg PO DAILY@1200 #1 TAB 07/25/23 02/24/24 Rx iron) tablet (FeroSul) ammonium lactate 12 % topical cream 1 applic topical QHS 11/30/23 02/24/24 History mirtazapine 7.5 mg tablet 7.5 mg PO QHS 11/30/23 02/24/24 History compression socks, medium #2 ea 12/04/23 Unknown Rx gabapentin 100 mg capsule 100 mg PO BIDCM nerve pain #30 caps 12/04/23 02/25/24 Rx tizanidine 2 mg tablet 2 mg PO QHS PRN muscle spasm #30 12/04/23 02/24/24 Rx tabs vitamin B12 0.5 mg-folic acid 1 mg 1 tab PO DAILY 02/09/24 02/25/24 History tablet pantoprazole 40 mg tablet,delayed 40 mg PO DAILY #60 tabs 02/12/24 02/25/24 Rx release (Protonix) atorvastatin 20 mg tablet 20 mg PO QHS 02/25/24 02/24/24 History hydrocortisone 2.5 % topical cream 1 applic topical BID 02/25/24 02/24/24 History nystatin 100,000 unit/gram topical 1 applic topical BID 02/25/24 02/24/24 History ointment sucralfate 100 mg/mL oral 1 g PO 4X/DAY 02/25/24 Unknown History suspension (Carafate) levothyroxine 25 mcg tablet 12.5 mcg (1/2 x 25 mcg) PO 02/27/24 Unknown Rx DAILY@0600 #0 tabs midodrine 5 mg tablet 5 mg PO TIDCM #0 tabs 02/27/24 Unknown Rx prednisone 5 mg tablet 10 mg (2 x 5 mg) PO DAILY #0 tabs 02/27/24 Unknown Rx ondansetron 4 mg disintegrating 4 mg PO Q8H PRN PRN Nausea #10 tabs 05/23/24 Unknown Rx tablet Allergy/AdvReac Type Severity Reaction Status Date / Time morphine AdvReac Intermediate Other Verified 05/27/24 09:42 Family History Mother CHF (congestive heart failure) Heart disease Hypertension Father COPD (chronic obstructive pulmonary disease) Surgical History S/P debridement History of vascular surgery History of coronary artery stent placement (01/11/16) H/O laminectomy History of knee surgery S/P rotator cuff repair History of pilonidal cyst Social History household members: none housing: house number of children: 5 current occupation: retired current occupational exposures/hazards: No history of recent travel: No Smoking Status: Former smoker how long ago did patient quit smokin alcohol intake: current alcohol intake frequency: holidays/special occasions only details: occasional,holiday substance use type: does not use caffeine: Yes Type: coffee Number of servings: 10 what type of physical activity do you participate in: bicycling frequency: 1-2 times per week duration: 15-30 minutes/day seatbelt use: always do you feel safe at home: Yes ROS ROS Narrative General: Denies fever/chills HENT: Occasional left-sided headache, does have sore throat and nasal congestion EYES: Denies changes in vision Resp: Slight dry cough intermittently but this is unchanged, no shortness of breath Cardiac: Denies chest pain GI: Occasional left-sided abdominal pain, denies changes in bowel, nausea and vomiting have resolved : Does urinate frequently Extremity: Denies swelling MSK: Some general weakness Neuro: Chronic neuropathy Heme: Denies any active bleeding Skin: Has scab on right elbow and chronic left lower extremity wound Psychiatric: No complaints voiced Vital Signs Vital Signs Vital Signs: 05/27/24 09:35 05/27/24 09:44 05/27/24 09:47 Temperature 96.8 F L Temperature Source Temporal Pulse Rate 58 L Respiratory Rate 18 Respiratory Effort Normal Non-Labored Respiratory Pattern Normal Blood Pressure 79/53 L Blood Pressure Mean 61 Pulse Ox 98 Oxygen Delivery Method Room Air Room Air 05/27/24 10:33 05/27/24 11:00 05/27/24 12:00 Temperature Temperature Source Pulse Rate 61 54 L 57 L Respiratory Rate 18 18 16 Respiratory Effort Respiratory Pattern Blood Pressure 96/62 91/66 79/41 L Blood Pressure Mean 73 74 53 Pulse Ox 96 96 98 Oxygen Delivery Method 05/27/24 13:00 Temperature Temperature Source Pulse Rate 48 L Respiratory Rate 16 Respiratory Effort Respiratory Pattern Blood Pressure 75/46 L Blood Pressure Mean 55 Pulse Ox 98 Oxygen Delivery Method Weight Weight: 84.8 kg Body Mass Index (BMI) 27.6 Physical Exam Narrative General: Wakes up easily and answers questions but falls back asleep quickly HEENT: Atraumatic Eyes: Anicteric, normal conjunctiva, extraocular movements grossly intact Neck: Supple Respiratory: Some wheezes in right upper lobe, no increased work of breathing Cardiovascular: Sinus arrhythmia GI: Soft, nontender, nondistended Extremities: No significant pitting edema Musculoskeletal: Moving all extremities Neuro: No overt focal neurological deficits Skin: Left lower extremity wound wrapped, right elbow with small scab but no drainage or erythema Psych: Cooperative Results Lab / Micro Data 05/27/24 10:00 05/27/24 10:00 Labs: Laboratory Results - last 24 hr 05/27/24 09:38: POC Glucose 128 H 05/27/24 10:00: WBC 7.9, RBC 3.29 L, Hgb 10.1 L, Hct 30.9 L, MCV 93.9, MCH 30.7, MCHC 32.7, RDW Std Deviation 50.7 H, RDW Coeff of [place] 14.7 H, Plt Count 235, MPV 10.4, Immature Gran % (Auto) 0.500, Neut % (Auto) 79.5 H, Lymph % (Auto) 9.8 L, [place] % (Auto) 9.8, Eos % (Auto) 0.4, Baso % (Auto) 0.0, Absolute Neuts (auto) 6.3, Absolute Lymphs (auto) 0.78 L, Nucleated RBC % 0, PT 14.2, INR 1.1, APTT 35.3, Sodium 134 L, Potassium 3.4 L, Chloride 97 L, Carbon Dioxide 30.0, Anion Gap 7, BUN 37 H, Creatinine 1.09, Estim Creat Clear Calc 51.35, Est GFR (MDRD) Af Amer 83, Est GFR (MDRD) Non-Af 69, BUN/Creatinine Ratio 33.9 H, Glucose 128 H, Lactic Acid 1.1, Calcium 8.6, Total Bilirubin 1.00, AST 20, ALT 24, Alkaline Phosphatase 109, Total Protein 6.3 L, Albumin 2.6 L, Globulin 3.7, Albumin/Globulin Ratio 0.7 L 05/27/24 11:01: POC Glucose 57 L 05/27/24 12:15: POC Glucose 99 05/27/24 13:19: POC Glucose 86 05/27/24 13:50: Urine Color Yellow, Urine Clarity Clear, Urine pH 6.0, Ur Specific [place] 1.010, Urine Protein 30 H, Urine Glucose (UA) Normal, Urine Ketones 5 H, Urine Occult Blood Negative, Urine Nitrite Negative, Urine Bilirubin Negative, Urine Urobilinogen Normal, Ur Leukocyte Esterase 25 H, Urine RBC 0 SEEN, Urine WBC 0-5 SEEN, Ur Squamous Epith Cells 0-5 SEEN, Urine Bacteria 0 SEEN, Urine Mucus 0 SEEN Imaging Radiology Impression Chest X-Ray 05/27/24 10:30 IMPRESSION: No significant interval change in mild right basilar atelectasis or inflammation. Electronically Signed: Rosette Ramirez MD at 11:09 EST , Brain CT 05/27/24 11:11 IMPRESSION: No acute intracranial process identified. Chronic involutional and white matter changes. Electronically Signed: Rosette Ramirez MD at 12:41 EST , Chest/Abdomen/Pelvis CT 05/27/24 11:11 IMPRESSION: Soft tissue mass of the right breast/chest wall, suspicious for malignancy. Multiple enlarged axillary and retropectoral lymph nodes with mildly prominent lower cervical lymph nodes, which may be secondary to metastases or lymphoma. Multiple nodular, groundglass, and alveolar opacities throughout the right lung concerning for pneumonia. Recommend follow-up to resolution to exclude metastases. Multiple enlarged retroperitoneal and pelvic lymph nodes, also concerning for metastases or lymphoma. Colonic diverticulosis without acute diverticulitis. Moderate stool in the colon. Cholelithiasis. Nonobstructing left renal calculus. Electronically Signed: Rosette Ramirez MD at 12:56 EST , Assessment & Plan Assessment/Plan (1) Hypotension: (2) Hypoglycemia: PLAN: Plan # Hypotension -Concern for potential underlying infection given patient's hypotension and hypoglycemia though suspect that this is all compounded by patient already having chronic low blood pressure and missing his midodrine dose -No elevated white blood cell count but does have left shift -Blood culture sent -Patient did receive 30 cc/kg of IV fluids and his dose of midodrine, will increase midodrine temporarily to 10mg 3 times daily -UA not suggestive of UTI -Patient does not endorse any increased shortness of breath and only has slight cough though chest imaging suggestive of possible pneumonia will obtain urine antigens and given his nasal congestion, dry cough, and sore throat will obtain viral panel -Does have chronic left lower extremity wound however reports that this has been improving not worsening -Given patient's significantly low blood pressure and hypoglycemia without definitive explanation we will start broad-spectrum antibiotics in the event that there is underlying infection that is not yet been identified as failing to treat this could be life-threatening -Does have history of C. 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 Given his recent nausea and vomiting and generally feeling unwell daughter was concerned he had not been taking his medications reliably, if this is true and he is adrenally suppressed that may be the cause of his hyponatremia, hypoglycemia, bradycardia and hypotension. If cultures negative or if he improves drastically with just stress dose steroids can consider deseeding antibiotics -Holding gabapentin and tizanidine while patient profoundly hypotensive, add back as blood pressure improves given his chronic pain # Hypoglycemia -Could certainly be attributed to sepsis versus relative adrenal insufficiency (see above) -Every 4 glucose checks and as needed while continuing dextrose drip at this time -C-peptide sent in ED -Will send A1c as well #Suspected PMR -Patient started on 10 mg daily of prednisone several months ago for suspected PMR -Stress dose steroids as above # KAI -Creatinine 1.09 with baseline around 0.7 -Patient received IV fluids -Repeat in the a.m. -Avoid nephrotoxic agents # Right breast/chest wall mass with lymphadenopathy -Patient to follow with Dr. Vergara on discharge for further workup and possible biopsy of chest wall mass # History of coronary artery disease -Continue statin -Not on antiplatelet therapy due to recent endoscopy with esophageal and duodenal ulcers #PAD -With previous intervention proximal left peroneal to distal left peroneal angioplasty x3 11/02/2021 -Continue statin -Not on antiplatelet therapy due to recent endoscopy with esophageal and duodenal ulcers # Chronic left foot wound -Wound care #Hx pfaib -Patient presently with heart rate 40s to 50s, no rate control necessary, previously deemed to be poor anticoagulation candidate #Chronic BPH with obstruction -Continue home medications #Hypothyroidism -Continue Synthroid #GERD -Will change PPI to IV while patient on stress dose steroids in the ICU, especially given recent bleeding ulcers on EGD -Continue sucralfate #Hypokalemia -Replace -Repeat in the AM #Chronic BPH with obstruction -Continue home medications #DVT ppx: Lovenox subcu Dayanara Rider MD Time spent in the patient's overall evaluation, decision-making process, review of diagnostic data, adjustment of management, discussion with other providers, nursing and ancillary staff involved in patient's care documentation, 77 Minutes Charges/Coding Visit Charges Inpatient E&M: 43524 Init Hosp L3
[2024-05-27] MEDS: Piperacil/Tazobactam 4.5 GM in 0.9% Normal Saline (100mL MB+) 100 ML IV (14:17)
[2024-05-27 14:42] LABS: Bedside Glucose 87 mg/dL (74-106)
[2024-05-27] MEDS: Vancomycin HCl 2,000 MG in 0.9% Normal Saline (500mL Bag) 500 ML 250 MG IV (15:32)
[2024-05-27] MEDS: Hydrocortisone Sod Succinate 100 MG/2 ML Vial 50 MG IV ×2 (15:35→20:18)
[2024-05-27 15:43] LABS: Bedside Glucose 78 mg/dL (74-106)
--- NOTE | 2024-05-27 15:44 | ED.RN ---
update given to Alva about pt admission
[2024-05-27 19:00] LABS: Bedside Glucose 122 mg/dL (74-106)
--- NOTE | 2024-05-27 19:40 | PCM.RX.CS ---
Consult Antibiotic Management Pharmacy has been consulted to manage selected antibiotic: Vancomycin Type of Intervention Type of Consult: New start Suspected Infection Suspected Infection: Sepsis Labs Labs: Sodium 134 mmol/L (136-145) L 05/27/24 10:00 Potassium 3.4 mmol/L (3.5-5.1) L 05/27/24 10:00 Chloride 97 mmol/L (98-107) L 05/27/24 10:00 Carbon Dioxide 30.0 mmol/L (21.0-32.0) 05/27/24 10:00 Anion Gap 7 (5-15) 05/27/24 10:00 BUN 37 mg/dL (7-18) H 05/27/24 10:00 Creatinine 1.09 mg/dL (0.70-1.30) 05/27/24 10:00 Est GFR (MDRD) Af Amer 83 mL/min (>60) 05/27/24 10:00 Est GFR (MDRD) Non-Af 69 mL/min (>60) 05/27/24 10:00 BUN/Creatinine Ratio 33.9 RATIO (10-20) H 05/27/24 10:00 Glucose 128 mg/dL (74-106) H 05/27/24 10:00 Dosing Weight Weight used for dosin.9 kg Estimated Creatinine Clearance Estimated Creatinine Clearance: 51.35 Goal Trough Goal Trough: 15-20 mcg/mL Pharmacy Plan for Drug Dosing Pharmacy Plan for Drug Dosing: NEW START IV VANCOMYCIN Consulting Physician: Dr. Rider Indication: Sepsis Goal Trough: 15-20 SrCr: 1.09 CrCl: 51.35 ml/min Comments: Received Vancomycin 2000mg x1 dose in ED at 15:32 05/27/24 Vancomycin Dose: 750mg Q12H to start at 03:30 05/28/24 Pending Level: Vancomycin trough @ 03:00 05/29/24 Pharmacy Service will continue to monitor and adjust dosing as required. Follow-Up Labs Follow-Up Labs: Trough: Vancomycin (05/29/24 @ 03:00)
[2024-05-27] MEDS: Midodrine HCl 5 MG Tablet 10 MG PO (20:11)
[2024-05-27] MEDS: Potassium Chloride 10mEq/100mL 10 MEQ/100 ML IV.SOLN. 100 MEQ IV BOLUS (20:12)
[2024-05-27] MEDS: Atorvastatin Calcium 20 MG Tablet PO (20:17)
[2024-05-27] MEDS: Cilostazol 50 MG Tablet PO (20:18)
[2024-05-27] MEDS: Mirtazapine 15 MG Tablet 7.5 MG PO (20:22)
[2024-05-27] MEDS: Acetaminophen 325 MG Tablet 650 MG PO (20:22)
[2024-05-27] MEDS: Pantoprazole Sodium 40 MG in 0.9% Normal Saline (100mL MB+) 100 ML 330 MG IV (20:27)
[2024-05-27] MEDS: Piperacil/Tazobactam 3.375 GM in 0.9% Normal Saline (50mL MB+) 50 ML IV (21:32)
[2024-05-27 22:14] LABS: Bedside Glucose 129 mg/dL (74-106)
[2024-05-28] VITALS (17 sets, daily range): BP systolic 93–142; BP diastolic 42–79; PULSE 45–87; RESP 12–21; TEMP 35.8–36.6; O2SAT 93–100; BMI 27.7
[2024-05-28 01:02] LABS: Bedside Glucose 105 mg/dL (74-106)
[2024-05-28] MEDS: Vancomycin HCl 750 MG in 0.9% Normal Saline (250mL Bag) 250 ML 250 MG IV (02:48)
[2024-05-28] MEDS: Acetaminophen 325 MG Tablet 650 MG PO ×3 (02:50→22:40)
[2024-05-28] MEDS: Hydrocortisone Sod Succinate 100 MG/2 ML Vial 50 MG IV ×4 (04:36→22:33)
[2024-05-28] MEDS: Piperacil/Tazobactam 3.375 GM in 0.9% Normal Saline (50mL MB+) 50 ML IV ×3 (04:38→23:08)
[2024-05-28] MEDS: Levothyroxine 25 MCG TABLET 12.5 MCG PO (04:38)
[2024-05-28 05:19] LABS: Absolute Lymphocyte Count 0.43 X10^3/uL (0.83-4.51); Absolute Neutrophil Count 5.3 X10^3/uL (2.0-7.7); Hemoglobin 9.7 g/dL (13.0-16.5); Lymphocyte # 0.43 X10^3/ul (0.83-4.51); Lymphocyte % 7.1 % (19-41); Mean Corp Hgb Conc 33.4 g/dL (32-36); Mean Corpuscular Hgb 31.3 pg (27.0-32.0); Mean Corpuscular Volume 93.5 fL (80-94); Mean Platelet Vol. 10.5 fl (6.2-12.0); Monocyte# 0.25 X10^3/uL; Monocyte% 4.1 % (0-10); NRBC Flagged by Analyzer 0 % (0-5); Neutrophil # 5.32 X10^3/uL (2.7-7.7); Neutrophil % 88.1 % (47-70); POSITIVE DIFFERENTIAL YES; Platelet Count 228 K/mm3 (150-450); RBC Distribution Width CV 14.6 % (11.6-14.6); RBC Distribution Width SD 49.7 fl (35.1-43.9)
[2024-05-28 05:27] LABS: Bedside Glucose 98 mg/dL (74-106)
[2024-05-28 05:36] LABS: ALB/GLOB Ratio 0.6 RATIO (0.9-2.4); AST(SGOT) 16 U/L (15-37); Alanine Aminotransfer ALT/SGPT 24 U/L (16-61); Albumin, Serum 2.2 g/dL (3.2-5.0); Alkaline Phosphatase 96 U/L (45-117); Anion Gap 7 (5-15); BUN 28 mg/dL (7-18); BUN/Creat Ratio 40.5 RATIO (10-20); Calcium,Total 7.7 mg/dL (8.5-10.1); Chloride 106 mmol/L (98-107); Creatinine, Serum 0.69 mg/dL (0.70-1.30); EST Glomerular Filtration Rate 116 mL/min (>60); Est Glom Filt Rate - Afr Amer 140 mL/min (>60); Globulin 3.6 g/dL (2.2-4.2); Glucose 97 mg/dL (74-106); Potassium 3.8 mmol/L (3.5-5.1); Protein, Total 5.8 g/dL (6.4-8.2); Sodium Level 138 mmol/L (136-145)
--- NOTE | 2024-05-28 06:46 | PCM.RX.CS ---
Consult Antibiotic Management Pharmacy has been consulted to manage selected antibiotic: Vancomycin Type of Intervention Type of Consult: Follow-up Suspected Infection Suspected Infection: Sepsis Labs Labs: Sodium 138 mmol/L (136-145) 05/28/24 05:00 Potassium 3.8 mmol/L (3.5-5.1) 05/28/24 05:00 Chloride 106 mmol/L (98-107) 05/28/24 05:00 Carbon Dioxide 25.0 mmol/L (21.0-32.0) 05/28/24 05:00 Anion Gap 7 (5-15) 05/28/24 05:00 BUN 28 mg/dL (7-18) H 05/28/24 05:00 Creatinine 0.69 mg/dL (0.70-1.30) L 05/28/24 05:00 Est GFR (MDRD) Af Amer 140 mL/min (>60) 05/28/24 05:00 Est GFR (MDRD) Non-Af 116 mL/min (>60) 05/28/24 05:00 BUN/Creatinine Ratio 40.5 RATIO (10-20) H 05/28/24 05:00 Glucose 97 mg/dL (74-106) 05/28/24 05:00 Microbiology Microbiology: Microbiology 05/28/24 00:10 Urine, Clean Catch Legionella Antigen - Final 05/28/24 00:10 Urine, Clean Catch Streptococcus pneumoniae Antigen (M - Final 05/27/24 20:15 Mucosa - Nasopharyngeal Respiratory Panel (PCR) - Final 05/27/24 20:15 Mucosa - Nasopharyngeal SARS-CoV-2, Influenza & RSV (PCR) - Final Dosing Weight Weight used for dosin.9 kg Estimated Creatinine Clearance Estimated Creatinine Clearance: 75 Goal Trough Goal Trough: 15-20 mcg/mL Pharmacy Plan for Drug Dosing Pharmacy Plan for Drug Dosing: DAILY ASSESSMENT Current Vancomycin Dose: 750mg Q12H Number of Doses Received: 750mg x1, 2000mg x1 Current Renal Function: sCr 0.69 Renal Function Trend: improved Lab/Micro: pending Any Change in Vanc Plan: Yes - increase Vancomycin to 1250mg Q12H Pending Level: Vancomycin trough @ 15:00 05/29/24 Pharmacy Service will continue to monitor and adjust dosing as required. Follow-Up Labs Follow-Up Labs: Trough: Vancomycin (05/29/24 @ 15:00)
[2024-05-28 07:38] LABS: Hemoglobin A1c 5.3 % (3.8-5.6)
[2024-05-28 07:53] LABS: Bedside Glucose 69 mg/dL (74-106)
[2024-05-28] MEDS: Finasteride 5 MG Tablet PO (09:41)
[2024-05-28] MEDS: Menthol/Lanolin/Calamine/Znox 113 GM Tube 1 APPLIC TOPICAL ×2 (09:41→22:31)
[2024-05-28] MEDS: Enoxaparin 40 MG/0.4 ML Syringe SC (09:42)
[2024-05-28] MEDS: Ferrous Sulfate 325 MG Tablet PO (09:42)
[2024-05-28] MEDS: Midodrine HCl 5 MG Tablet 10 MG PO ×3 (09:42→16:59)
[2024-05-28] MEDS: Cilostazol 50 MG Tablet PO ×2 (09:42→22:32)
[2024-05-28] MEDS: Pantoprazole Sodium 40 MG in 0.9% Normal Saline (100mL MB+) 100 ML 330 MG IV ×2 (10:04→22:45)
[2024-05-28] MEDS: 0.9% Saline Lock 10 ML Syringe IV ×2 (10:07→16:59)
[2024-05-28 10:09] LABS: Bedside Glucose 130 mg/dL (74-106)
--- NOTE | 2024-05-28 10:24 | US_ITS ---
STUDY: ULTRASOUND BREAST - RIGHT REASON FOR EXAM: Male, 83 years old. Right retroareolar mass. TECHNIQUE: Axial and longitudinal images of the RIGHT breast were performed with a high resolution ultrasound transducer. # OF IMAGES: 31 COMPARISON: None. FINDINGS: RIGHT Breast: The retroareolar region of the right breast was examined with ultrasound. There is a 4 cm x 4.1 cm x 1.6 cm irregular hypoechoic mass. Increased vascularity is seen. A neoplastic process should be ruled out. Biopsy recommended. US/Breast Limited Unilateral IMPRESSION: 4 cm x 4.1 cm x 1.6 cm irregular hypoechoic mass in the retroareolar region of the right breast with increased vascularity. A neoplastic process should be ruled out. Biopsy recommended. ASSESSMENT CATEGORY: BIRADS Category 5: Highly Suggestive of Malignancy - Appropriate Action Should Be Taken. A letter regarding these results will be sent to the patient by the facility within 30 days. Electronically Signed: Irving Crook MD at 11:14 EST ,
--- NOTE | 2024-05-28 11:00 | CASEMGMT ---
Discharge Planning Per Elvi @ [facility], pt has a new MCR benefit period available. RN AMEYA, Dl, updated. Violeta Dangelo DC Planning Asst.
--- NOTE | 2024-05-28 11:16 | WOUNDNOTE ---
wound photo: left Achilles area
[2024-05-28 13:01] LABS: Bedside Glucose 128 mg/dL (74-106)
[2024-05-28] MEDS: Vancomycin HCl 1,250 MG in 0.9% Normal Saline (250mL Bag) 250 ML 167 MG IV (15:36)
[2024-05-28 17:27] LABS: Bedside Glucose 98 mg/dL (74-106)
--- NOTE | 2024-05-28 17:30 | PN.HOSP_ITS ---
Reason for Visit Reason for Visit: Diagnoses Hypoglycemia, unspecified (05/27/24) Hypotension, unspecified (05/27/24) Subjective Subjective Patient was seen and examined today, his blood sugars have not been below 98 today. Objective Data Objective Data Vital Signs: Vital Signs Temp Pulse Resp BP Pulse Ox O2 Del Method O2 Flow Rate 97.3 F L 87 18 104/55 L 93 Room Air 2 05/28/24 16:56 05/28/24 16:56 05/28/24 16:56 05/28/24 16:56 05/28/24 16:56 05/28/24 16:56 05/28/24 10:00 Oxygen Flow Rate (L/min) 2 Oxygen Delivery Method Room Air Weight: 85.2 kg Body Mass Index (BMI) 27.7 Intake & Output: Intake and Output for Last 24 Hours 05/26/24 05/27/24 05/28/24 23:59 23:59 23:59 Intake Total 4410 / 4410 1750 / 1750 Output Total 250 / 250 1300 / 1300 Balance 4160 / 4160 450 / 450 Lab / Micro Data 05/28/24 05:00 05/28/24 05:00 Labs: Laboratory Results - last 24 hr 05/27/24 17:19: POC Glucose 69 L 05/27/24 18:42: POC Glucose 122 H 05/27/24 21:56: POC Glucose 129 H 05/28/24 00:44: POC Glucose 105 05/28/24 05:00: WBC 6.0, RBC 3.10 L, Hgb 9.7 L, Hct 29.0 L, MCV 93.5, MCH 31.3, MCHC 33.4, RDW Std Deviation 49.7 H, RDW Coeff of [place] 14.6, Plt Count 228, MPV 10.5, Immature Gran % (Auto) 0.700, Neut % (Auto) 88.1 H, Lymph % (Auto) 7.1 L, Ceiba % (Auto) 4.1, Eos % (Auto) 0.0, Baso % (Auto) 0.0, Absolute Neuts (auto) 5.3, Absolute Lymphs (auto) 0.43 L, Nucleated RBC % 0, Sodium 138, Potassium 3.8, Chloride 106, Carbon Dioxide 25.0, Anion Gap 7, BUN 28 H, Creatinine 0.69 L , Estim Creat Clear Calc 75.70, Est GFR (MDRD) Af Amer 140, Est GFR (MDRD) Non- Af 116, BUN/Creatinine Ratio 40.5 H, Glucose 97, Hemoglobin A1c 5.3, Calcium 7.7 L, Total Bilirubin 0.50, AST 16, ALT 24, Alkaline Phosphatase 96, Total Protein 5.8 L, Albumin 2.2 L, Globulin 3.6, Albumin/Globulin Ratio 0.6 L 05/28/24 05:06: POC Glucose 98 05/28/24 09:37: POC Glucose 130 H 05/28/24 12:38: POC Glucose 128 H 05/28/24 17:08: POC Glucose 98 Micro: Microbiology 05/28/24 00:10 Urine, Clean Catch Legionella Antigen - Final 05/28/24 00:10 Urine, Clean Catch Streptococcus pneumoniae Antigen (M - Final 05/27/24 20:15 Mucosa - Nasopharyngeal Respiratory Panel (PCR) - Final 05/27/24 20:15 Mucosa - Nasopharyngeal SARS-CoV-2, Influenza & RSV (PCR) - Final Physical Exam Const alert, oriented x3 and no apparent distress General Appearance: cooperative, well kempt and well developed Orientation / Consciousness: awake, oriented to person, oriented to place and oriented to time HEENT normocephalic, head/scalp atraumatic and moist oral mucous membranes Eyes PERRL, EOMs intact bilaterally and conjunctivae normal Neck supple, no JVD, thyroid normal and no carotid bruits General: trachea midline Resp normal respiratory effort, no retractions, no use of accessory muscles and clear to auscultation bilaterally Auscultation: Negative for rales, rhonchi or wheezes Cardio regular rate, regular rhythm, S1 normal heart sound, S2 normal heart sound, no murmurs, no rub and no gallops GI normal to inspection, nondistended, normoactive bowel sounds, soft to palpation, non-tender and non-distended Extremity no clubbing, cyanosis or edema Skin no rashes or lesions noted Skin Narrative: Patient has a hard mass over the lateral aspect of his chest wall just lateral to his right nipple area. This is several centimeters in diameter General Skin Exam: no breakdown Neuro oriented x3, CN's II-XII intact bilaterally, moves all extremities, no focal motor deficits and no sensory deficits noted Sensorium / Orientation: awake and alert Speech: speech normal Psych affect normal Assessment & Plan Assessment/Plan (1) Hypoglycemia: PLAN: Plan 1. Hypoglycemia-etiology unclear, I will order an ultrasound of the patient's chest wall today, continue present medications #2 hypotension-resolved at this time, continue to monitor blood pressure #3 right chest wall mass-etiology unclear, patient was an ultrasound done today I will continue empiric antibiotic coverage for now Total clinical time spent by myself addressing the patient's medical issues, reviewing all of his data, and collaborating with patient's care team: 35 minutes Charges/Coding Visit Charges Inpatient E&M: 30708 Subs Hosp L2
[2024-05-28] MEDS: Atorvastatin Calcium 20 MG Tablet PO (22:32)
[2024-05-28] MEDS: Mirtazapine 15 MG Tablet 7.5 MG PO (22:34)
[2024-05-28 23:15] LABS: Bedside Glucose 103 mg/dL (74-106)
[2024-05-29 02:42] LABS: Bedside Glucose 111 mg/dL (74-106)
[2024-05-29] MEDS: Hydrocortisone Sod Succinate 100 MG/2 ML Vial 50 MG IV ×2 (03:43→09:30)
[2024-05-29] MEDS: Vancomycin HCl 1,250 MG in 0.9% Normal Saline (250mL Bag) 250 ML 167 MG IV (03:45)
[2024-05-29 03:52] VITALS: BP 139/80; PULSE 60; RESP 18; TEMP 35.9; O2SAT 94
[2024-05-29 04:10] VITALS: BMI 27.8
[2024-05-29] MEDS: Piperacil/Tazobactam 3.375 GM in 0.9% Normal Saline (50mL MB+) 50 ML IV (05:49)
[2024-05-29] MEDS: Levothyroxine 25 MCG TABLET 12.5 MCG PO (05:50)
[2024-05-29 06:24] LABS: Bedside Glucose 107 mg/dL (74-106)
[2024-05-29 07:32] VITALS: BP 139/80; PULSE 60; RESP 18; TEMP 35.9; O2SAT 94
[2024-05-29 08:14] LABS: C-Peptide 2.9 ng/mL (1.1-4.4)
[2024-05-29 09:25] VITALS: BP 150/81; PULSE 73; RESP 18; TEMP 36.6; O2SAT 93
[2024-05-29] MEDS: Enoxaparin 40 MG/0.4 ML Syringe SC (09:29)
[2024-05-29] MEDS: Menthol/Lanolin/Calamine/Znox 113 GM Tube 1 APPLIC TOPICAL ×2 (09:29→22:20)
[2024-05-29] MEDS: Midodrine HCl 5 MG Tablet 10 MG PO ×2 (09:29→11:38)
[2024-05-29] MEDS: Finasteride 5 MG Tablet PO (09:30)
[2024-05-29] MEDS: Cilostazol 50 MG Tablet PO ×2 (09:30→22:18)
[2024-05-29] MEDS: Pantoprazole Sodium 40 MG in 0.9% Normal Saline (100mL MB+) 100 ML 330 MG IV ×2 (09:31→22:27)
[2024-05-29] MEDS: 0.9% Saline Lock 10 ML Syringe IV ×2 (09:36→22:21)
--- NOTE | 2024-05-29 09:37 | CASEMGMT ---
Discharge Planning Pt resides in [place] but will need a skilled stay. Referral sent to [facility] snf with acceptance. Wknd phone/fax requested. Violeta Dangelo DC Planning Asst.
[2024-05-29 10:11] LABS: Bedside Glucose 140 mg/dL (74-106)
--- NOTE | 2024-05-29 10:32 | CASEMGMT ---
Patient will be going to [facility] skilled when medically ready. SW completed a PASRR in [employer] system. Plan: D/c to [facility] under skilled level of care. Aleksandra BLEDSOE
[2024-05-29] MEDS: Ferrous Sulfate 325 MG Tablet PO (11:39)
--- NOTE | 2024-05-29 13:42 | CASEMGMT ---
KRISTAL spoke with patient's daughter Arti and let her know patient has a new Medicare benefit period and tomorrow he will have his qualifying stay. Arti was in agreement. Plan: d/c back to [facility] under skilled level of care. Physicians will transport patient. Aleksandra BLEDSOE
[2024-05-29 14:54] VITALS: BP 139/80; PULSE 60; RESP 18; TEMP 35.9; O2SAT 94
[2024-05-29 15:25] VITALS: BP 123/67; PULSE 62; RESP 18; TEMP 36.7; O2SAT 97
[2024-05-29] MEDS: predniSONE 10 MG Tablet PO (15:46)
[2024-05-29] MEDS: Midodrine HCl 5 MG Tablet PO (16:47)
[2024-05-29 17:08] LABS: Bedside Glucose 86 mg/dL (74-106)
--- NOTE | 2024-05-29 18:40 | PN.HOSP_ITS ---
Reason for Visit Reason for Visit: Diagnoses Hypoglycemia, unspecified (05/27/24) Hypotension, unspecified (05/27/24) Subjective Subjective Patient was seen and examined today, I talked at length with his daughter who is in the room at the time my examination. I have decided to decrease the patient's midodrine to 5 mg 3 times daily and stop his antibiotics today, I also changed him to daily prednisone today and stopped his Solu-Cortef. Patient's sugars have not been low. Objective Data Objective Data Vital Signs: Vital Signs Temp Pulse Resp BP Pulse Ox O2 Del Method O2 Flow Rate 98.0 F 62 18 123/67 H 97 Room Air 2 05/29/24 15:25 05/29/24 15:25 05/29/24 15:25 05/29/24 15:25 05/29/24 15:25 05/29/24 15:25 05/28/24 10:00 Oxygen Flow Rate (L/min) 2 Oxygen Delivery Method Room Air Weight: 85.5 kg Body Mass Index (BMI) 27.8 Intake & Output: Intake and Output for Last 24 Hours 05/27/24 05/28/24 05/29/24 23:59 23:59 23:59 Intake Total 4410 / 4410 1910 / 1910 1205 / 1205 Output Total 250 / 250 1300 / 2000 2150 / 2150 Balance 4160 / 4160 610 / -90 -945 / -945 Lab / Micro Data 05/28/24 05:00 05/28/24 05:00 Labs: Laboratory Results - last 24 hr 05/27/24 13:50: C-Peptide 2.9 05/28/24 22:55: POC Glucose 103 05/29/24 02:19: POC Glucose 111 H 05/29/24 05:19: POC Glucose 107 H 05/29/24 09:44: POC Glucose 140 H 05/29/24 16:39: POC Glucose 86 Micro: Microbiology 05/27/24 13:50 Urine, Clean Catch Urine Culture - Final Gram negative emily 05/27/24 10:00 Blood Culture (Wb) - Right Wrist Blood Culture - Preliminary No growth in 48 hours. 05/27/24 10:00 Blood Culture (Wb) - Left Forearm Blood Culture - Preliminary No growth in 48 hours. 05/28/24 00:10 Urine, Clean Catch Legionella Antigen - Final 05/28/24 00:10 Urine, Clean Catch Streptococcus pneumoniae Antigen (M - Final 05/27/24 20:15 Mucosa - Nasopharyngeal Respiratory Panel (PCR) - Final 05/27/24 20:15 Mucosa - Nasopharyngeal SARS-CoV-2, Influenza & RSV (PCR) - Final Radiography Diagnostic Testing: Radiology Impression Breast Ultrasound 05/28/24 10:24 IMPRESSION: 4 cm x 4.1 cm x 1.6 cm irregular hypoechoic mass in the retroareolar region of the right breast with increased vascularity. A neoplastic process should be ruled out. Biopsy recommended. ASSESSMENT CATEGORY: BIRADS Category 5: Highly Suggestive of Malignancy - Appropriate Action Should Be Taken. A letter regarding these results will be sent to the patient by the facility within 30 days. Electronically Signed: Irving Crook MD at 11:14 EST , Physical Exam Narrative alert, oriented x3 and no apparent distress General Appearance: cooperative, well kempt and well developed Orientation / Consciousness: awake, oriented to person, oriented to place and oriented to time HEENT normocephalic, head/scalp atraumatic and moist oral mucous membranes Eyes PERRL, EOMs intact bilaterally and conjunctivae normal Neck supple, no JVD, thyroid normal and no carotid bruits General: trachea midline Resp normal respiratory effort, no retractions, no use of accessory muscles and clear to auscultation bilaterally Auscultation: Negative for rales, rhonchi or wheezes Cardio regular rate, regular rhythm, S1 normal heart sound, S2 normal heart sound, no murmurs, no rub and no gallops GI normal to inspection, nondistended, normoactive bowel sounds, soft to palpation, non-tender and non-distended Extremity no clubbing, cyanosis or edema Skin no rashes or lesions noted Skin Narrative: Patient has a hard mass over the lateral aspect of his chest wall just lateral to his right nipple area. This is several centimeters in diameter General Skin Exam: no breakdown Neuro oriented x3, CN's II-XII intact bilaterally, moves all extremities, no focal motor deficits and no sensory deficits noted Sensorium / Orientation: awake and alert Speech: speech normal Psych affect normal Assessment & Plan Assessment/Plan (1) Generalized weakness: (2) Hypoglycemia: PLAN: Plan 1. Hypoglycemia-etiology unclear, again patient was switched to prednisone today, blood sugars will continue to be monitored. #2 hypotension-resolved at this time, continue to monitor blood pressure #3 right chest wall mass-etiology unclear, patient will need follow-up as an outpatient with general surgery #4 generalized weakness-patient is being seen by PT and OT, it is planned that the patient will go to a senior care facility for short-term rehab services. Total clinical time spent by myself addressing the patient's medical issues, reviewing all of his data, and collaborating with patient's care team: 35 minutes Charges/Coding Visit Charges Inpatient E&M: 20353 Subs Hosp L2
[2024-05-29 22:13] VITALS: BP 135/66; PULSE 61; RESP 16; TEMP 36.4; O2SAT 98
[2024-05-29] MEDS: Atorvastatin Calcium 20 MG Tablet PO (22:18)
[2024-05-29] MEDS: tiZANidine HCl 2 MG Tablet PO (22:19)
[2024-05-29] MEDS: Mirtazapine 15 MG Tablet 7.5 MG PO (22:20)
[2024-05-29 23:50] LABS: Bedside Glucose 92 mg/dL (74-106)
[2024-05-30 04:10] VITALS: BP 125/60; PULSE 53; RESP 18; TEMP 36.3; O2SAT 92
[2024-05-30 05:30] VITALS: BMI 27.8
[2024-05-30] MEDS: Levothyroxine 25 MCG TABLET 12.5 MCG PO (06:17)
[2024-05-30 06:59] LABS: Bedside Glucose 68 mg/dL (74-106)
[2024-05-30 07:52] VITALS: BP 139/80; PULSE 60; RESP 18; TEMP 35.9; O2SAT 94
[2024-05-30 10:10] VITALS: BP 142/69; PULSE 62; RESP 18; TEMP 36.4; O2SAT 100
--- NOTE | 2024-05-30 10:18 | TREXTCAR_ITS ---
Diet Diet Order/Speech Therapy: 05/28/24 13:03 Diet: Regular - General Type of Dietary Supplement:: Beneprotein Diet Comments: Beneprotein TID Routine Orders/Code Status Routine Lab Work: - (fingerstick fasting sugars daily for seven days) Code Status: Full Code DC O2, CPAP, BIPAP needs Additional Home O2 Discharge instructions: No Wound(s) left posterior calf: Wound Type: Neuropathic/Diabetic Foot Ulcer left Achilles area: Wound Type: nonhealing wound Dressing Change: AntiMicrobial (Aquacel AG, etc) Ronnell hands: Wound Type: scabs scattered Therapies Weight Bearing: Full weight bearing Physical Therapy: Eval and Treat Occupational Therapy: Eval and Treat Problem/Diagnosis (1) Generalized weakness: Status: Acute Code(s): R53.1 - Weakness (2) Hypoglycemia: Status: Acute Code(s): E16.2 - Hypoglycemia, unspecified Plan 1. Hypoglycemia-etiology unclear, again patient was switched to prednisone today, blood sugars will continue to be monitored. #2 hypotension-resolved at this time, continue to monitor blood pressure #3 right chest wall mass-etiology unclear, patient will need follow-up as an outpatient with general surgery #4 generalized weakness-patient is being seen by PT and OT, it is planned that the patient will go to a correction facility for short-term rehab services. Total clinical time spent by myself addressing the patient's medical issues, reviewing all of his data, and collaborating with patient's care team: 35 minut es Allergies/Procedures Done in Hospital Allergies morphine Adverse Reaction (Intermediate, Verified 05/27/24 09:42) Other Per daughter pt became confused and saying off the wall stuff. Took days to go back to normal Procedures: None Type of Care/Length of Stay Estimated LOS: Convalescent Care Less Than 30 days Type of Care Needed: Skilled Rehab Potential: Good Prognosis: Good Additional Orders/Day of Discharge H&P will serve as current which was dated: 05/27/24 Day of Discharge: 05/30/24 Dietary and Speech Recommendations Dietitian Recommendations/Changes: Adjust to liberal regular diet d/t family request. Will order 1 scoop beneprotein TID with meals. If edema does not improving, consider no added salt/sodium restricted diet. Will monitor weight, as available. Reviewed and approved by Ginny Guerra RDN, LD. Discharge Plan Admission Admit Date/Time: 05/27/24 14:15 Primary Reason for Your Visit: hypoglycemia, hypotension Attending Provider: Ankur Chao Primary Care Provider: Ankur Medina Consulting Providers: Dayanara Rider Discharge Orders/Prescriptions Prescriptions: New tizanidine 2 mg Tablet 2 mg PO QHS Qty: 0 0RF Continued finasteride [Proscar] 5 mg tablet 5 mg PO DAILY cilostazol 50 mg tablet 50 mg PO BID acetaminophen 500 mg Tablet 1,000 mg PO Q6H PRN (Reason: Pain Score 1-10) ascorbic acid (vitamin C) 500 mg Tablet 500 mg PO 1200 Qty: 1 0RF ferrous sulfate [FeroSul] 325 mg (65 mg iron) Tablet 325 mg PO DAILY@1200 Qty: 1 0RF mirtazapine 7.5 mg tablet 7.5 mg PO QHS ammonium lactate 12 % cream 1 applic topical QHS gabapentin 100 mg capsule 100 mg PO BIDCM Qty: 30 0RF vitamin M89-thwcs acid 0.5-1 mg tablet 1 tab PO DAILY pantoprazole [Protonix] 40 mg tablet,delayed release (DR/EC) 40 mg PO DAILY Qty: 60 0RF atorvastatin 20 mg tablet 20 mg PO QHS sucralfate [Carafate] 100 mg/mL suspension 1 g PO 4X/DAY Rx Instructions: BEFORE MEALS AND AT BEDTIME hydrocortisone 2.5 % cream 1 applic topical BID nystatin 100,000 unit/gram ointment 1 applic topical BID prednisone 5 mg Tablet 10 mg PO DAILY Qty: 0 0RF midodrine 5 mg Tablet 5 mg PO TIDCM Qty: 0 0RF levothyroxine 25 mcg Tablet 12.5 mcg PO DAILY@0600 Qty: 0 0RF ondansetron 4 mg tablet,disintegrating 4 mg PO Q8H PRN PRN (Reason: Nausea) Qty: 10 0RF Discontinued tizanidine 2 MG tablet 2 mg PO QHS PRN (Reason: muscle spasm) Qty: 30 0RF Referrals / Follow Up: Ankur Medina DO [Primary Care Provider] - Disposition Disposition (needs filled in before D/C Order can be placed): Shelter Facility
--- NOTE | 2024-05-30 10:27 | DS.PCM_ITS ---
Providers Date of Admission: 05/27/24 Date of Discharge: 05/30/24 Primary Care Physician: Dr. Ankur Medina, Consultations 05/27/24 19:24 Consult: Onc/Wound/maintenance controller Routine Comment: Reason for Consult:: left lower extremity chronic wound Reason For Visit: HYPOTENSION, HYPOGLYCEMIA Diagnosis Discharge Diagnosis (1) Generalized weakness: Status: Inactive Code(s): R53.1 - Weakness (2) Hypoglycemia: Status: Resolved Code(s): E16.2 - Hypoglycemia, unspecified Plan 1. Hypoglycemia-etiology unclear, again patient was switched to prednisone today, blood sugars will continue to be monitored. #2 hypotension-resolved at this time, continue to monitor blood pressure #3 right chest wall mass-etiology unclear, patient will need follow-up as an outpatient with general surgery #4 generalized weakness-patient is being seen by PT and OT, it is planned that the patient will go to a shelter facility for short-term rehab services. #5 suspected polymyalgia rheumatica Total clinical time spent by myself addressing the patient's medical issues, reviewing all of his data, and collaborating with patient's care team: 35 minutes Medications at Discharge Home Medications finasteride 5 mg tablet (Proscar) 5 mg PO DAILY PROSTATES 07/18/17 cilostazol 50 mg tablet 50 mg PO BID vasodilator 02/02/22 acetaminophen 500 mg tablet 1,000 mg PO Q6H PRN Pain Score 1-10 07/15/23 ascorbic acid (vitamin C) 500 mg tablet 500 mg PO 1200 vitamin #1 TAB 07/25/23 ferrous sulfate 325 mg (65 mg iron) tablet (FeroSul) 325 mg PO DAILY@1200 supplement #1 TAB 07/25/23 ammonium lactate 12 % topical cream 1 applic topical QHS skin 11/30/23 mirtazapine 7.5 mg tablet 7.5 mg PO QHS mental health 11/30/23 gabapentin 100 mg capsule 100 mg PO BIDCM nerve pain #30 caps 12/04/23 vitamin B12 0.5 mg-folic acid 1 mg tablet 1 tab PO DAILY vitamin 02/09/24 pantoprazole 40 mg tablet,delayed release (Protonix) 40 mg PO DAILY reflux #60 tabs 02/12/24 atorvastatin 20 mg tablet 20 mg PO QHS cholesterol 02/25/24 hydrocortisone 2.5 % topical cream 1 applic topical BID skin 02/25/24 nystatin 100,000 unit/gram topical ointment 1 applic topical BID skin 02/25/24 sucralfate 100 mg/mL oral suspension (Carafate) 1 g PO 4X/DAY 02/25/24 levothyroxine 25 mcg tablet 12.5 mcg (1/2 x 25 mcg) PO DAILY@0600 thyroid #0 tabs 02/27/24 midodrine 5 mg tablet 5 mg PO TIDCM blood pressure #0 tabs 02/27/24 prednisone 5 mg tablet 10 mg (2 x 5 mg) PO DAILY inflammation #0 tabs 02/27/24 ondansetron 4 mg disintegrating tablet 4 mg PO Q8H PRN PRN Nausea #10 tabs 05/23/24 tizanidine 2 mg tablet 2 mg PO QHS #0 tabs 05/30/24 Hospital Course Operations None Procedures None Summary of Care Provided Minutes Spent on Discharge: 32 Hospital Course: This 83-year-old white male was seen in the emergency room at [facility] after he was brought in from assisted living where he resides due to a low blood sugar. Patient is on no insulin and is not diabetic. Patient's blood pressure was also noted to be low. Patient's glucose was 128 after a D10 bolus from squad, a fluid bolus was given to the patient, following this his glucose went down to 57 but he was alert and oriented x 3. Patient was given orange juice and D5 was administered. Patient was on daily midodrine as an outpatient for low blood pressure. Labs reveals a normal white blood cell count, hemoglobin was low at 10.1, potassium was slightly low at 3.4, BUN was 37 and glucose is 128. Chest x-ray showed mild right basilar atelectasis or inflammation, CT of the brain showed no acute intracranial process. Patient was admitted to PCU, patient was placed on IV Solu-Cortef due to concerns of adrenal insufficiency, patient did not become hypoglycemic during his hospital stay. Patient's blood pressure stabilized on midodrine. It was noted that in reviewing his medical record that his blood sugar had been in the 80s and 90s most of his readings. Patient's cortisol level was normal. Patient was seen by PT and OT and it was recommended that he go to a shelter facility for short-term rehab services. Patient agreed. On 05/30/2024, patient was seen and examined: On examination he appeared in good health and spirits. Vital signs as documented. Skin warm and dry and without overt rashes. Neck without JVD, neck was supple, trachea midline, thyroid was normal. Lungs clear bilaterally, normal air movement was noted. Heart exam notable for regular rhythm, normal sounds and absence of murmurs, rubs or gallops. Abdomen unremarkable and without evidence of organomegaly, masses, or abdominal aortic enlargement. Bowel sounds are present, abdomen is not distended. Extremities nonedematous, no cyanosis was noted, no clubbing was noted. Neuro: Cranial nerves II through XII are grossly intact, no focal motor deficits were noted, sensation to light touch and pinprick intact, motor exam 5/5 throughout. Psych: Patient is alert and oriented x3, he does not appear anxious or depressed, he does not appear agitated. Patient appears stable for discharge to a skilled facility on 05/30/2024 in stable condition. Weight / BMI Weight Weight: 85.7 kg Body Mass Index (BMI) 27.8 ABG / Lab / Microbiology Data 05/28/24 05:00 05/28/24 05:00 Laboratory: Laboratory Results - last 24 hr 05/30/24 09:20: Cortisol 5.40 05/30/24 10:17: POC Glucose 131 H Microbiology: Microbiology 05/27/24 10:00 Blood Culture (Wb) - Right Wrist Blood Culture - Preliminary 05/27/24 13:50 Urine, Clean Catch Urine Culture - Final Gram negative emily 05/27/24 10:00 Blood Culture (Wb) - Left Forearm Blood Culture - Preliminary No growth in 48 hours. 05/28/24 00:10 Urine, Clean Catch Legionella Antigen - Final 05/28/24 00:10 Urine, Clean Catch Streptococcus pneumoniae Antigen (M - Final 05/27/24 20:15 Mucosa - Nasopharyngeal Respiratory Panel (PCR) - Final 05/27/24 20:15 Mucosa - Nasopharyngeal SARS-CoV-2, Influenza & RSV (PCR) - Final Radiography Diagnostic Testing: Radiology Impression Breast Ultrasound 05/28/24 10:24 IMPRESSION: 4 cm x 4.1 cm x 1.6 cm irregular hypoechoic mass in the retroareolar region of the right breast with increased vascularity. A neoplastic process should be ruled out. Biopsy recommended. ASSESSMENT CATEGORY: BIRADS Category 5: Highly Suggestive of Malignancy - Appropriate Action Should Be Taken. A letter regarding these results will be sent to the patient by the facility within 30 days. Electronically Signed: Irving Crook MD at 11:14 EST , D/C Instructions DC O2, CPAP, BIPAP Needs Additional Home O2 Discharge instructions: No DC home with Oxygen: No Meaningful Use Info Meaningful Use Meaningful Use Diagnoses (Choose all that apply): None applicable Ischemic Stroke Statin Dosing Therapy Reference: STATIN DOSE THERAPY REFERENCE: * Patients > 75 years receive moderate or high dose statin therapy. * Patients 75 years or YOUNGER should receive HIGH intensity statin dose unless contraindicated. You will be required to document reason for non-treatment if statin daily dose does not meet guidelines. HIGH DOSE STATIN THERAPY DAILY Atorvastatin > than or = to 40 mg Rosuvastatin > than or = to 20 mg Amlodipine + Atorvastatin > than or = to 2.5/40 mg Ezetimibe + Simvastatin 10/80 mg Simvastatin 80mg Discharge Plan Admission Admit Date/Time: 05/27/24 14:15 Primary Reason for Your Visit: hypoglycemia, hypotension Attending Provider: Ankur Chao Primary Care Provider: Ankur Medina Consulting Providers: Dayanara Rider Discharge Orders/Prescriptions Prescriptions: New tizanidine 2 mg Tablet 2 mg PO QHS Qty: 0 0RF Continued finasteride [Proscar] 5 mg tablet 5 mg PO DAILY cilostazol 50 mg tablet 50 mg PO BID acetaminophen 500 mg Tablet 1,000 mg PO Q6H PRN (Reason: Pain Score 1-10) ascorbic acid (vitamin C) 500 mg Tablet 500 mg PO 1200 Qty: 1 0RF ferrous sulfate [FeroSul] 325 mg (65 mg iron) Tablet 325 mg PO DAILY@1200 Qty: 1 0RF mirtazapine 7.5 mg tablet 7.5 mg PO QHS ammonium lactate 12 % cream 1 applic topical QHS gabapentin 100 mg capsule 100 mg PO BIDCM Qty: 30 0RF vitamin N92-[id number] acid 0.5-1 mg tablet 1 tab PO DAILY pantoprazole [Protonix] 40 mg tablet,delayed release (DR/EC) 40 mg PO DAILY Qty: 60 0RF atorvastatin 20 mg tablet 20 mg PO QHS sucralfate [Carafate] 100 mg/mL suspension 1 g PO 4X/DAY Rx Instructions: BEFORE MEALS AND AT BEDTIME hydrocortisone 2.5 % cream 1 applic topical BID nystatin 100,000 unit/gram ointment 1 applic topical BID prednisone 5 mg Tablet 10 mg PO DAILY Qty: 0 0RF midodrine 5 mg Tablet 5 mg PO TIDCM Qty: 0 0RF levothyroxine 25 mcg Tablet 12.5 mcg PO DAILY@0600 Qty: 0 0RF ondansetron 4 mg tablet,disintegrating 4 mg PO Q8H PRN PRN (Reason: Nausea) Qty: 10 0RF Discontinued tizanidine 2 MG tablet 2 mg PO QHS PRN (Reason: muscle spasm) Qty: 30 0RF Referrals / Follow Up: Ankur Medina DO [Primary Care Provider] - Disposition Disposition (needs filled in before D/C Order can be placed): [facility] Facility Charges/Coding Visit Charges Inpatient E&M: 64648 Disch Hosp >30min
[2024-05-30 10:36] LABS: Bedside Glucose 131 mg/dL (74-106)
[2024-05-30] MEDS: Cilostazol 50 MG Tablet PO (11:06)
[2024-05-30] MEDS: predniSONE 10 MG Tablet PO (11:06)
[2024-05-30] MEDS: Finasteride 5 MG Tablet PO (11:07)
[2024-05-30] MEDS: Menthol/Lanolin/Calamine/Znox 113 GM Tube 1 APPLIC TOPICAL (11:08)
[2024-05-30 11:12] VITALS: BP 142/69; PULSE 62; RESP 18; TEMP 36.4; O2SAT 97
--- NOTE | 2024-05-30 11:43 | NURSING ---
Report called to nurse Murray for pt to be d/c to [facility] skilled.
== END 2024-05-30 11:50 | disposition skilled nursing facility (03) | DRG 315 ==
LOC: ED 14:31 → ICU 18:01 → PCU 05-28 17:17
PROVIDERS: Admitting Provider Internal Medicine; Emergency Provider Emergency Medicine; PCP Family Medicine; Visit Provider Internal Medicine
DX: I95.9 Hypotension, unspecified (principal); E27.40 Unspecified adrenocortical insufficiency; N13.8 Other obstructive and reflux uropathy; I50.9 Heart failure, unspecified; I11.0 Hypertensive heart disease with heart failure; E11.621 Type 2 diabetes mellitus with foot ulcer; E03.9 Hypothyroidism, unspecified; I73.9 Peripheral vascular disease, unspecified; M35.3 Polymyalgia rheumatica; S91.302A Unspecified open wound, left foot, initial encounter; E16.2 Hypoglycemia, unspecified; K21.9 Gastro-esophageal reflux disease without esophagitis; J98.4 Other disorders of lung; E87.6 Hypokalemia; I25.10 Atherosclerotic heart disease of native coronary artery without angina pectoris; E78.5 Hyperlipidemia, unspecified; L97.529 Non-pressure chronic ulcer of other part of left foot with unspecified severity; E11.42 Type 2 diabetes mellitus with diabetic polyneuropathy; Z79.890 Hormone replacement therapy; R59.1 Generalized enlarged lymph nodes; Z82.5 Family history of asthma and other chronic lower respiratory diseases; Z87.891 Personal history of nicotine dependence; Z95.5 Presence of coronary angioplasty implant and graft; N40.1 Benign prostatic hyperplasia with lower urinary tract symptoms; N63.41 Unspecified lump in right breast, subareolar; Z79.52 Long term (current) use of systemic steroids; R53.1 Weakness
CPT/HCPCS: 36415; 70450; 71045; 71260; 74177; 76642; 80053; 81001; 82533; 82962; 83036; 83605; 84681; 85025; 85610; 85730; 87040; 87086; 87088; 87449; 87631; 87633; 93005; 97162; 97166; 97530; 97802; 99285; J7030; J7040; J7050; P9612; Q9967; A4216

== ENCOUNTER → 2024-06-15 | Outpatient (CLI) | payer MEDICARE, BC, SELFPAY ==
--- NOTE | 2024-06-15 | IMM_PTH ---
PATIENT: SARA SAHA LOC: [facility] U#:[id number] AGE/SX: 83/M ROOM: RE06/15/[address]: Dr. Aurora Proctor MD : 1940 BED: DIS: 06/15/2024 SPEC #: [id number] RECD: 06/16/24 12:13 STATUS: CARLOS REQ #: [id number] IVONNE: 06/15/24 00:[address]: Aurora Proctor DEPT: IMMUNOHISTOCHEMISTRY RECD BY: Emery Lewis ENTERED: 06/16/24 12:16 SP TYPE: IMMUNO OTHR DR: Dr. Ankur Medina, DO Tissues: A - Right breast, NOS B - Axillary lymph node, NOS Procedures: CALPONIN-1 (add) CK5-6 (add) CK8 (add) E-CAD (add) HER2 KATELYN (add) KI-67 (add) MAMM (add) P53 (add) VT (add) GATA3 (add) P40 (add) ER (initial) PHYSICIAN & [address] [address] SPECIMEN INFORMATION: Tissue Source: A. Right breast mass, B. right axillary lymph node Clinical Info: Breast mass Specimen Number: [id number] A, B CPT code: 93394 x2, 67379 x3, 19900 11 METHODOLOGY: Deparaffinized sections of prefer/formalin-fixed tissue or PAP/DQ stained slides are incubated with monoclonal/polyclonal antibodies/oligonucleotide probes. Localization is made via biotin free immunoperoxidase method. Appropriate controls are performed and reacted as expected. Results on target cell population are indicated in the following table: RESULTS: ANTIBODY / CLONE RESULT Block A E-Cad (ECH-6) positive CK8 (25tpvqZ71) positive Calponin-1 (CG913E) negative CK5-6 (D5 & 1684) negative P40 (BC28) negative P53 (DO-7) positive, focal (wild pattern) Ki-67 (30-9) positive, moderate, ~ 30% MORPHOMETRIC ANALYSIS ER (clone 6F11) >95%, strong intensity VT (clone 16/1E2) >95%, moderate intensity Her-2Neu (clone CB11) 3+ The prognostic test for HER2 is performed on formalin-fixed paraffin embedded tissue. A 3+ (positive) staining pattern is defined as intense, homogeneous, complete, circumferential membranous staining in >10% of contiguous tumor cells. A similar weak (2+) staining pattern is interpreted as equivocal. ENRIQUE follow-up testing is recommended for all equivocal cases. Positivity/negativity for ER/VT is reported if > or < 1% of the tumor cells are immuno- reactive, respectively. The ASCO/CAP criteria is used for scoring. Reference: Journal of Clinical Oncology, 2013; 31:7998-9177 & 2010; 16:8776-6391. Ischemic time: Less than one hour. Duration of fixation: __ Hrs; Sample Adequate: Yes. These assays have not been validated on decalcified tissues. Results should be interpreted with caution given the likelihood of false negativity on decalcified specimens or fixation greater than 72 hours. Alternative testing methods (FISH/dualISH for Her2; gene expression for ER) are recommended, if applicable. Please notify the laboratory if additional testing is required. Block B ER (6F11) positive VT (1E2) positive CK8 (74pmwhH54) positive E-Cad (ECH-6) positive Mammaglobin (31A5) negative GATA3 (L50-823) positive These tests were developed and their performance characteristics determined by [facility]. They may not have been cleared or approved by the U.S. Food and Drug Administration. The FDA has determined that such clearance or approval is not necessary. The above immunohistochemical/dualISH markers are ordered and reviewed by the Pathologist. INTERPRETATION: A. Right breast mass tissue, biopsy: Invasive ductal carcinoma. Positive for estrogen receptors (favorable prognostic indicator). Positive for progesterone receptors (favorable prognostic indicator). Positive for overexpression of GLP3yvh. B. 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
--- NOTE | 2024-06-15 09:00 | BRBX_PTH ---
PATIENT: SARA SAHA LOC: [facility] U#:[id number] AGE/SX: 83/M ROOM: RE06/15/[address]: Dr. Aurora Proctor MD : 1940 BED: DIS: 06/15/2024 SPEC #: [id number] RECD: 06/15/24 10:43 STATUS: CARLOS REQ #: [id number] IVONNE: 06/15/24 09:[address]: Aurora Proctor DEPT: SURGICAL PATHOLOGY RECD BY: Hoda Clark ENTERED: 06/15/24 12:44 SP TYPE: BREAST BX OTHR DR: Dr. Ankur Medina DO Tissues: A - Right breast, NOS B - Axillary lymph node, NOS Procedures: Surgery Specimen Level IV HEADER OPERATION: Biopsy right breast mass PRE-OP DIAGNOSIS: Biopsy breast mass TISSUE SUBMITTED: A. Right breast mass tissue, B. Right axillary lymph node ISCMEMIC TIME: 1 minute FIXATION TIME: 11 hours MICROSCOPIC DIAGNOSIS A. Right breast mass tissue, core biopsy: Invasive ductal carcinoma. See cancer summary in the comment section. B. Right axillary lymph node, core biopsy: Lymph node with metastatic carcinoma, consistent with breast primary (ductal carcinoma). See comment. CATHERINE 06/18/24 COMMENT A. Immunohistochemistry ([id number]) supports the above diagnosis. B. Metastatic carcinoma measures 0.6 cm in greatest length. Immunohistochemistry ([id number]) supports the above diagnosis. INVASIVE BREAST CANCER SUMMARY: Procedure: Needle core biopsy Specimen Laterality: right Tumor site: not specified. Histologic type: invasive ductal carcinoma, no special type. Provisional Histologic grade: Tubule Differentiation Score: 3 Nuclear Pleomorphism Score: 2 Mitotic Rate Score:1 Overall grade: grade 2 (score of 6) Tumor Size (greatest dimension): 1.5 cm in greatest length Ductal Carcinoma In situ: not identified. Angiolymphatic Invasion: not identified. Microcalcifications: not identified. Additional Findings: none Breast Marker Study: [id number] ER: positive (>95%, strong intensity) AR: positive (>95%, moderate intensity) Her2: positive (3+) Ki67: positive, ~30%% [id number]: not applicable The above summary is in compliance with [employer] [place] [employer] (CAP) Cancer Protocols Checklist and [place] Joint Committee on Cancer (AJCC), Staging Manual, 8th Ed. Case has been reviewed in consultation with Dr. Stone who concurs with the above diagnosis. IDC: [id number] MICROSCOPIC DESCRIPTION Slides are reviewed. GROSS DESCRIPTION Received in formalin is one container labeled with the patient name and designated right breast mass. The specimen consists of two irregular and elongated fragments of hernandez-white tissue measuring in aggregate 1.5 x 0.3 x 0.1 cm. The specimen is totally submitted in one cassette. B. Received is one container labeled with the patient name and designated right axillary lymph node. The specimen consists of multiple irregular fragments of light hernandez soft tissue that in aggregate measure 1.5 x 0.3 x 0.1 cm. The specimen is totally submitted in one cassette. /CATHERINE:edwige 06/15/24 TC:0 CPT: 27277u7
== END | disposition home or self-care (01) ==
PROVIDERS: PCP Family Medicine; Referring Provider Surgery; Visit Provider Surgery
DX: C50.921 Malignant neoplasm of unspecified site of right male breast (principal); C77.3 Secondary and unspecified malignant neoplasm of axilla and upper limb lymph nodes; Z17.0 Estrogen receptor positive status [ER+]
CPT/HCPCS: 88305; 88341; 88342

== ENCOUNTER → 2024-07-01 | Outpatient (CLI) | payer MEDICARE, BC, SELFPAY ==
--- NOTE | 2024-07-01 14:26 | ECHOCSONC_ITS ---
Reason For Study: CARDIO TOXIC DRUG THERAPY Procedure This was a 2D Doppler, Color Flow transthoracic echocardiogram. Patient wheelchair bound. Echo performed with him sitting in the wheelchair. Unable to calculate strain due to image quality. The study was technically difficult. Exam performed in department. Left Ventricle Normal LV size. The estimated ejection fraction is 55 %. No evidence for diastolic dysfunction. No regional wall motion abnormalities noted. Right Ventricle Normal RV size. Normal systolic function. Atria The left and right atria are normal. No doppler evidence for ASD. Mitral Valve There is no mitral valve stenosis. No mitral valve insufficiency. Tricuspid Valve There is no tricuspid stenosis. Trivial tricuspid valve insufficiency. Pulmonary artery systolic pressure is 30 mmHg. Aortic Valve Trisinus/trileaflet aortic valve. There is no aortic stenosis. No aortic valve insufficiency. Pulmonic Valve There is no pulmonic valvular stenosis. No pulmonic valve insufficiency. Great Vessels Normal aortic root. Pericardium/Pleural No pericardial effusion. Medication 22 gauge I.V. with prn adaptor inserted into right arm. Diluted definity 2ml given slow IV push to enhance endocardial definition. MMode/2D Measurements & Calculations LVIDd: 4.4 cm IVSd: 1.1 cm Ao root diam: 3.8 cm LVIDs: 3.2 cm LVPWd: 1.3 cm RVDd: 3.6 cm FS: 27.1 % LAV(MOD-bp): 25.6 ml LVAd ap4: 34.9 cm2 SV(MOD-sp4): 60.4 ml LAV(MOD-bp) Indexed: 13.3 ml/m2 LVLd ap4: 8.4 cm SI(MOD-sp4): 31.4 ml/m2 LAV(MOD-sp2): 27.1 ml EDV(MOD-sp4): 117.7 ml LAV(MOD-sp4): 24.9 ml EDV(sp4-el): 123.3 ml LVAs ap4: 22.5 cm2 LVLs ap4: 7.1 cm ESV(MOD-sp4): 57.3 ml ESV(sp4-el): 60.3 ml EF(MOD-sp4): 51.4 % EF(sp4-el): 51.0 % SV(sp4-el): 62.9 ml LA A4 area: 12.0 cm2 LA dimension(2D): 2.4 cm RA A4 area: 12.9 cm2 TAPSE: 2.1 cm Time Measurements MV dec time: 0.28 sec Doppler Measurements & Calculations MV E max yusef: 57.1 cm/sec Lat Peak E' Yusef: 6.7 cm/sec Med Peak E' Yusef: 5.6 cm/sec MV A max yusef: 87.7 cm/sec E/E' lat: 8.6 E/E' med: 10.1 MV E/A: 0.65 Ao V2 max: 113.2 cm/sec LV V1 max: 99.2 cm/sec PA V2 max: 80.9 cm/sec Ao max P.1 mmHg LV V1 max P.9 mmHg TR max yusef: 252.1 cm/sec TR max P.4 mmHg ECHO/ONC Echo Complete W/ Contrast Interpretation Summary The estimated ejection fraction is 55 %. No evidence for diastolic dysfunction. Ordering Physician: Saqib العراقي Referring Physician: MIGUEL ELISE Performed By: Abby Amin RDCS
== END | disposition home or self-care (01) ==
LOC: CVS 14:26
PROVIDERS: PCP Family Medicine; Referring Provider Internal Medicine Medical Oncology; Visit Provider Internal Medicine Medical Oncology
DX: Z01.818 Encounter for other preprocedural examination (principal)
CPT/HCPCS: 93306; 93356; Q9957; A4216; C8929

== ENCOUNTER 2024-07-11 12:07 | Inpatient (IN) | payer MEDICARE, BC, SELFPAY ==
[2024-07-11] VITALS (10 sets, daily range): BP systolic 73–134; BP diastolic 51–78; PULSE 48–80; RESP 14–20; TEMP 36.4–37.2; O2SAT 94–98; BMI 27.3; BMI 22.8
--- NOTE | 2024-07-11 12:44 | EKG12_ITS ---
Test Reason : CP Blood Pressure : */* mmHG Vent. Rate : 48 BPM Atrial Rate : 48 BPM P-R Int : 184 ms QRS Dur : 120 ms QT Int : 504 ms P-R-T Axes : 58 -20 94 degrees QTcB Int : 450 ms Sinus bradycardia Left ventricular hypertrophy with QRS widening and repolarization abnormality ( R in aVL ) Cannot rule out Septal infarct , age undetermined Abnormal ECG Confirmed by CHU HARTMANN, ALANNAH ([id number]), manuscript editor ESTRELLA CARRILLO ([id number]) on 07/13/2024 10:49:58 A M Referred By: ROHAN/DIANELYS Confirmed By: ALANNAH SAGE MD
--- NOTE | 2024-07-11 12:47 | CT_ITS ---
INDICATION: headache EXAMINATION: CT BRAIN - CT Head or Brain W/O Contrast Injection TECHNIQUE: Multiple axial images were obtained of the head without intravenous contrast. The protocol utilizes one or more of the following dose reduction techniques: automated exposure control, adjustment of mA and/or kV according to patient size,and/or use of iterative reconstruction technique. IV Contrast dosage and agent: None. RADIATION DOSAGE (If Supplied By Facility): CTDIvol = ( 29.71 ) mGy, DLP = ( 626.93 ) mGycm COMPARISON: Prior study dated: 05/27/2024 FINDINGS: BRAIN PARENCHYMA: No intra- or extra-axial hemorrhage. No evidence of acute infarct. No intracranial mass or mass effect. There is preservation of the rowland/white matter interface. Posterior fossa structures are unremarkable. CSF SPACES: Mild to moderate diffuse atrophy. No hydrocephalus. Basal cisterns are patent. CALVARIUM, SKULL BASE, PARANASAL SINUSES AND MASTOID AIR CELLS: Clear. No discrete lytic or blastic abnormalities. ORBITS: Both globes, extraocular muscles, optic nerves and retrobulbar fat appear unremarkable. CT/Brain/Head without Contrast IMPRESSION: No acute intracranial process. Electronically Signed: Marek Salgado MD at 14:11 EST ,
--- NOTE | 2024-07-11 12:49 | EX.ED.DYSGE1 ---
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 As well as a headache to the right side. Patient's cancer diagnosis has been in the last month. Patient states that the headache is been 3 to 4 days. Worsening pain in the left side of his chest. Here with his daughter. 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) Essential hypertension Peripheral arterial occlusive disease History of basal cell cancer Cervical radiculopathy Stenosis of cervical spine with myelopathy Debility Restless leg syndrome Normochromic normocytic anemia Orthostatic hypotension Depression Urine retention Urinary incontinence Left ventricular hypertrophy BPH (benign prostatic hyperplasia) Pressure ulcer Myelopathy Tobacco dependence in remission Renal cyst Osteoarthritis Microscopic hematuria Eczema Anterolisthesis Leg swelling PAD (peripheral artery disease) Hyperlipidemia Atherosclerotic heart disease of [place] coronary artery without angina pectoris Paroxysmal atrial fibrillation Dilated aortic root Home Medications ?Medication ?Instructions ?Recorded ?Last Taken ?Type finasteride 5 mg tablet (Proscar) 5 mg PO DAILY PROSTATES 07/18/17 02/25/24 History cilostazol 50 mg tablet 50 mg PO BID vasodilator 02/02/22 02/25/24 History ascorbic acid (vitamin C) 500 mg 500 mg PO 1200 vitamin #1 TAB 07/25/23 02/24/24 Rx tablet ferrous sulfate 325 mg (65 mg 325 mg PO DAILY@1200 supplement #1 07/25/23 02/24/24 Rx iron) tablet (FeroSul) TAB ammonium lactate 12 % topical cream 1 applic topical QHS skin 11/30/23 02/24/24 History mirtazapine 7.5 mg tablet 7.5 mg PO QHS mental health 11/30/23 02/24/24 History gabapentin 100 mg capsule 100 mg PO BIDCM nerve pain #30 caps 12/04/23 02/25/24 Rx pantoprazole 40 mg tablet,delayed 40 mg PO DAILY reflux #60 tabs 02/12/24 02/25/24 Rx release (Protonix) atorvastatin 20 mg tablet 20 mg PO QHS cholesterol 02/25/24 02/24/24 History hydrocortisone 2.5 % topical cream 1 applic topical BID skin 02/25/24 02/24/24 History nystatin 100,000 unit/gram topical 1 applic topical BID skin 02/25/24 02/24/24 History ointment sucralfate 100 mg/mL oral 1 g PO 4X/DAY 02/25/24 Unknown History suspension (Carafate) levothyroxine 25 mcg tablet 12.5 mcg (1/2 x 25 mcg) PO 02/27/24 Unknown Rx DAILY@0600 thyroid #0 tabs midodrine 5 mg tablet 5 mg PO TIDCM blood pressure #0 02/27/24 Unknown Rx tabs prednisone 5 mg tablet 10 mg (2 x 5 mg) PO DAILY 02/27/24 Unknown Rx inflammation #0 tabs ondansetron 4 mg disintegrating 4 mg PO Q8H PRN PRN Nausea #10 tabs 05/23/24 Unknown Rx tablet citalopram 10 mg tablet 10 mg PO QDAY 06/15/24 Unknown History potassium chloride 20 mEq 20 meq PO QDAY 06/23/24 Unknown History tablet,extended release(part/cryst) tizanidine 2 mg tablet 2 mg PO QHS PRN muscle spasticity 06/23/24 Unknown History acetaminophen 500 mg tablet 1,000 mg PO BID 06/25/24 Unknown History tamoxifen 20 mg tablet 100 mg (5 x 20 mg) PO QDAY 30 days 07/08/24 Unknown Rx #450 tabs cyanocobalamin (vitamin B-12) 1,000 mcg PO DAILY 07/11/24 Unknown History 1,000 mcg capsule Allergy/AdvReac Type Severity Reaction Status Date / Time morphine AdvReac Intermediate Other Verified 07/11/24 12:08 Family History Mother CHF (congestive heart failure) Heart disease Hypertension Father COPD (chronic obstructive pulmonary disease) Surgical History S/P debridement History of vascular surgery History of coronary artery stent placement (01/11/16) H/O laminectomy History of knee surgery S/P rotator cuff repair History of pilonidal cyst Social History household members: none housing: house number of children: 5 current occupation: retired current occupational exposures/hazards: No history of recent travel: No Smoking Status: Former smoker how long ago did patient quit smokin alcohol intake: current alcohol intake frequency: holidays/special occasions only details: occasional,holiday substance use type: does not use caffeine: Yes Type: coffee Number of servings: 10 what type of physical activity do you participate in: bicycling frequency: 1-2 times per week duration: 15-30 minutes/day seatbelt use: always do you feel safe at home: Yes ROS <PALMA Saul - Last Filed: 07/11/24 17:49> ROS ED ROS Narrative Constitutional: Negative for fever, chills, weight loss. Positive for weakness Eyes: Negative for vision loss, vision change, double vision ENT: Negative for any sore throat, ear pain, congestion Cardiovascular: Negative for any chest pain, tightness, palpitations. Positive left-sided back, left chest wall pain Respiratory: Negative for any cough, sputum production, hemoptysis, dyspnea, dyspnea on exertion, orthopnea Gastrointestinal: Negative for any abdominal pain, nausea, vomiting, diarrhea, constipation, blood in stool, blood in vomit : Negative for any urinary frequency, dysuria, retention, blood in urine Muscle skeletal: Negative for any neck pain, back pain Neurological: Negative for any syncope, dizziness. Positive for headache Skin: Negative for any rashes, itching, abrasions, lacerations Psychiatric: Negative for any depression, anxiety, stress, suicidal ideation, homicidal ideation Hematologic: Negative for any excessive bruising, easy bleeding EXAM <PALMA Saul - Last Filed: 07/11/24 17:49> Physical Exam Narrative Exam Narrative: Vital signs reviewed. Patient on my initial evaluation had his eyes closed, appeared to be in some discomfort. Patient has daughter at bedside. HEET: Head normocephalic atraumatic, TMs clear bilaterally. Posterior pharynx is clear, moist mucous membranes. Nares clear bilaterally. When touching the right side of the patient's scalp, the patient does jump in pain, there is no signs or symptoms of any rash or hepatic lesions. Neck: Supple with no lymphadenopathy or tenderness. No signs of meningismus. Cardiac: Bradycardic rhythm no murmurs gallops or rubs, equal peripheral pulses bilaterally. Respiratory: Lungs clear to auscultation bilaterally. Significant left-sided chest wall tenderness, this freddy from the posterior paraspinal area to the left thoracic spine all the way to the left anterior chest wall pain. Significant pain with any movement or touching the bed. Again there is no signs or symptoms of any herpetic lesions. Abdomen: Soft, nontender, nondistended. No abdominal bruit or pulsatile masses. No hepatosplenomegaly Extremities: Both of the patient's legs are in wound care. He does see a sheet sewer for both of his lower legs. Neuro: Cranial nerves II through XII intact, no focal neurological deficits. NIH stroke scale 0. However patient does have significant pain with any palpation of his skin to the right scalp as well as left chest wall. Skin: Clean dry and intact with no rash, purpura, petechiae, vesicles or pustules. Backs/flank: No CVA tenderness, no midline spinal tenderness, no deformity. Psych: Normal mood and affect. No SI, HI or acute psychosis. Const Vital Signs: 07/11/24 12:08 07/11/24 13:07 07/11/24 14:00 Temperature 98.9 F Temperature Source Oral Pulse Rate 48 L 58 L 63 Respiratory Rate 18 14 16 Blood Pressure 98/58 L 99/54 L 92/64 Blood Pressure Mean 71 69 73 Pulse Ox 98 97 98 Oxygen Delivery Method Room Air Room Air 07/11/24 15:00 07/11/24 16:00 07/11/24 17:00 Temperature 98.7 F 98.7 F Temperature Source Temporal Temporal Pulse Rate 52 L 68 80 Respiratory Rate 18 16 16 Blood Pressure 134/78 H 113/53 L Blood Pressure Mean 96 73 Pulse Ox 95 98 98 Oxygen Delivery Method Room Air Room Air Room Air Positive cachectic General Appearance ED: cachectic Nutritional Appearance: cachectic <Dr. Harrison Duarte MD - Last Filed: 07/11/24 14:59> Physical Exam Const Vital Signs: 07/11/24 12:08 07/11/24 13:07 07/11/24 14:00 Temperature 98.9 F Temperature Source Oral Pulse Rate 48 L 58 L 63 Respiratory Rate 18 14 16 Blood Pressure 98/58 L 99/54 L 92/64 Blood Pressure Mean 71 69 73 Pulse Ox 98 97 98 Oxygen Delivery Method Room Air Room Air 07/11/24 15:00 07/11/24 16:00 07/11/24 17:00 Temperature 98.7 F 98.7 F Temperature Source Temporal Temporal Pulse Rate 52 L 68 80 Respiratory Rate 18 16 16 Blood Pressure 134/78 H 113/53 L Blood Pressure Mean 96 73 Pulse Ox 95 98 98 Oxygen Delivery Method Room Air Room Air Room Air MDM <PALMA Saul - Last Filed: 07/11/24 17:49> [facility] Lab Data Labs: Laboratory Results - last 24 hr 07/11/24 07/11/24 12:15 14:30 WBC 7.8 RBC 3.34 L Hgb 10.5 L Hct 31.9 L MCV 95.5 H MCH 31.4 MCHC 32.9 RDW Std Deviation 47.8 H RDW Coeff of [place] 13.7 Plt Count 244 MPV 10.1 Immature Gran % (Auto) 1.000 H Neut % (Auto) 73.9 H Lymph % (Auto) 12.3 L [place] % (Auto) 11.1 H Eos % (Auto) 1.4 Baso % (Auto) 0.3 Absolute Neuts (auto) 5.8 Absolute Lymphs (auto) 0.96 Nucleated RBC % 0 Sodium 140 Potassium 3.7 Chloride 104 Carbon Dioxide 32.0 Anion Gap 4 L BUN 23 H Creatinine 0.65 L Estim Creat Clear Calc 68.74 Est GFR (MDRD) Af Amer 151 Est GFR (MDRD) Non-Af 125 BUN/Creatinine Ratio 35.5 H Glucose 97 Calcium 9.2 Total Bilirubin 0.40 AST 14 L ALT 21 Alkaline Phosphatase 89 Troponin I High Sens 20 Total Protein 6.7 Albumin 3.2 Globulin 3.5 Albumin/Globulin Ratio 0.9 Urine Color Yellow Urine Clarity Clear Urine pH 5.0 Ur Specific Quail 1.025 Urine Protein 15 H Urine Glucose (UA) Normal Urine Ketones Negative Urine Occult Blood 10 H Urine Nitrite Negative Urine Bilirubin Negative Urine Urobilinogen Normal Ur Leukocyte Esterase 25 H Urine RBC 0 SEEN Urine WBC 0 SEEN Ur Squamous Epith Cells 0-5 SEEN Urine Bacteria 0 SEEN Urine Mucus 0 SEEN Radiography Diagnostic Testing: Clinical Impression(s) from Imaging Studies Brain CT 07/11/24 12:47 IMPRESSION: No acute intracranial process. Electronically Signed: Marek Salgado MD at 14:11 EST , Chest X-Ray 07/11/24 13:13 IMPRESSION: No radiographic evidence of acute cardiopulmonary disease. Electronically Signed: Marek Salgado MD at 14:20 EST Reading Location ID and State: [facility] / [place] Tel , Service support , Chest CTA 07/11/24 14:45 IMPRESSION: 1. No evidence of central pulmonary embolism. Suboptimal evaluation of the peripheral branches. 2. Mild right lower lung infiltrate could be due to pneumonia. 3. Small left pleural effusion. 4. Asymmetric right breast density for which further investigation is needed. 5. Possible small gallstones. Electronically Signed: Marek Salgado MD at 16:06 EST , Treatment and Re-Evaluation :: Differential diagnosis includes however is not limited to: Metastasis to the brain, herpetic rash, acute on chronic pain, ACS, NM, community-acquired pneumonia, neuropathy, failure to thrive Patient appears to be in mild distress secondary to pain to the right side of his head, left chest wall pain. Speaking with the patient's daughter, I do believe there is some confusion regarding the patient's CODE STATUS. I believe at this time the patient's code is full. Patient is currently getting worked up for multiple issues such as metastasis of breast cancer, recently had echocardiogram on 01 July 2024. This was negative with a EF of 55%. Currently not undergoing chemotherapy. Patient received a CT scan of the brain as well as a chest x-ray. Laboratory values including troponin will be ordered. Patient be given 25 of fentanyl with 4 Zofran. All radiologic examinations were read, reviewed by the emergency department attending. From these reads, a plan of care will be put in place. Patient blood pressure remains soft at 92/64. Patient's laboratory values show a stable hemoglobin of 10.5, no leukocytosis. Chemistries were unremarkable. Urinalysis showed no infection. Patient CT scan of the brain was negative for any acute process, chest x-ray showed no radiographic evidence of cardiopulmonary pathology. At this time, patient received a CTA of the chest to rule out any other pathology. CT of the chest was negative. At this time, the patient is still having significant amount of pain, I spoke with the patient as well as the patient's daughter, they are uncomfortable going home. Patient does have intractable pain, I do not have an answer for this pain. Patient be admitted to the hospital. A repeat fentanyl dose will be ordered. I spoke with the patient, patient be admitted to hospital. I spoke with the hospitalist. Patient does have some wounds to the lower legs, the patient does have some cellulitis of the right foot. However do not believe this is a to do with his pain. The hospitalist and I did discuss possible herpetic lesions and this is just an early presentation. However patient will be admitted to the hospital <Dr. Harrison Duarte MD - Last Filed: 07/11/24 14:59> [facility] Narrative Medical decision making narrative: I have personally performed a face to face assessment of the patient and have reviewed the JUSTIN Note. I performed a substantive portion of the visit including all aspects of the following. My cox findings include: History is 84-year-old male history of breast cancer metastases complaining of left chest wall and back pain. No fall injury or trauma. Came in from extended-care facility. Family is with him. Exam is 84-year-old male vital signs are stable as pressure is borderline at 98/58. He does not look septic or toxic. H EENT exam pupils round react light. He has tenderness on the scalp is no signs of trauma. There is no redness or warmth. There is no discoloration. There is no bruising. Neck nontender. Lungs clear to auscultation bilaterally. Exquisitely tender over the left lateral chest wall but there is no rash or shingles there is no bruising. There is no crepitus or subcu air. There is no bony deformity or signs of trauma. Heart regular rate and rhythm no murmur. Abdomen is soft and nontender. Pelvic girdle intact. Moving all 4 extremities. Trace edema right lower extremity. Prior podiatric surgery on one of his toes. Neurologically he is awake and alert. Answering questions following commands. Back is nontender is kyphotic. Medical Decision Making [84-year-old male complaining of chest wall and head pain without trauma. Labs and CT being obtained. We do not have a specific cause for the pain on his left lateral chest wall. With a history of cancer. Organ to get a CTA. I do not think it is a PE but the also concern for bony mets and rib fractures we do not see on the x-ray.] Other additions or changes: [None] History & Record Review Discussion w/independent historian: Patient Additional record(s) reviewed:: Prior inpatient record, Prior outpatient record, Prior ED visit and Prior labs Lab Data Attestation: I reviewed the patient's lab results. Lab results narrative: CBC shows a white count of 7.8. H&H 10.5 and 31.9. Platelets 244. Electrolytes show a gap of 4. BUN of 23 creatinine 0.6. Glucose 97. Liver enzymes are normal. UA is negative. Chest x-ray chronic changes. CT of the brain chronic changes. Labs: Laboratory Results - last 24 hr 07/11/24 07/11/24 12:15 14:30 WBC 7.8 RBC 3.34 L Hgb 10.5 L Hct 31.9 L MCV 95.5 H MCH 31.4 MCHC 32.9 RDW Std Deviation 47.8 H RDW Coeff of [place] 13.7 Plt Count 244 MPV 10.1 Immature Gran % (Auto) 1.000 H Neut % (Auto) 73.9 H Lymph % (Auto) 12.3 L [place] % (Auto) 11.1 H Eos % (Auto) 1.4 Baso % (Auto) 0.3 Absolute Neuts (auto) 5.8 Absolute Lymphs (auto) 0.96 Nucleated RBC % 0 Sodium 140 Potassium 3.7 Chloride 104 Carbon Dioxide 32.0 Anion Gap 4 L BUN 23 H Creatinine 0.65 L Estim Creat Clear Calc 68.74 Est GFR (MDRD) Af Amer 151 Est GFR (MDRD) Non-Af 125 BUN/Creatinine Ratio 35.5 H Glucose 97 Calcium 9.2 Total Bilirubin 0.40 AST 14 L ALT 21 Alkaline Phosphatase 89 Troponin I High Sens 20 Total Protein 6.7 Albumin 3.2 Globulin 3.5 Albumin/Globulin Ratio 0.9 Urine Color Yellow Urine Clarity Clear Urine pH 5.0 Ur Specific [place]ail 1.025 Urine Protein 15 H Urine Glucose (UA) Normal Urine Ketones Negative Urine Occult Blood 10 H Urine Nitrite Negative Urine Bilirubin Negative Urine Urobilinogen Normal Ur Leukocyte Esterase 25 H Urine RBC 0 SEEN Urine WBC 0 SEEN Ur Squamous Epith Cells 0-5 SEEN Urine Bacteria 0 SEEN Urine Mucus 0 SEEN Radiography Chest X-Ray - ED: 1 View, Read by ED Physician, Read by Radiologist, Normal, Heart, Lungs, Mediastinum, Bony Structures, No Acute Disease and Chronic Changes Diagnostic Testing: Clinical Impression(s) from Imaging Studies Brain CT 07/11/24 12:47 IMPRESSION: No acute intracranial process. Electronically Signed: Marek Salgado MD at 14:11 EST , Chest X-Ray 07/11/24 13:13 IMPRESSION: No radiographic evidence of acute cardiopulmonary disease. Electronically Signed: Marek Salgado MD at 14:20 EST , Chest CTA 07/11/24 14:45 IMPRESSION: 1. No evidence of central pulmonary embolism. Suboptimal evaluation of the peripheral branches. 2. Mild right lower lung infiltrate could be due to pneumonia. 3. Small left pleural effusion. 4. Asymmetric right breast density for which further investigation is needed. 5. Possible small gallstones. Electronically Signed: Marek Salgado MD at 16:06 EST , Chest x-ray, portable, single view returned by myself and the radiologist shows chronic changes no acute process. No obvious fractures. No pneumothorax. No pneumonia or effusion. Discharge Plan Dx/Rx/DC Orders Clinical Impression: Intractable back pain, Acute chest wall pain, Pain of scalp, Weakness, Cellulitis of foot, right Disposition Disposition: Acute Care Hospital [facility]
[2024-07-11 12:52] LABS: Absolute Lymphocyte Count 0.96 X10^3/uL (0.83-4.51); Absolute Neutrophil Count 5.8 X10^3/uL (2.0-7.7); Basophil# 0.02 X10^3/uL; Basophil% 0.3 % (0-1); Eosinophil# 0.11 X10^3/uL; Eosinophils% 1.4 % (0-5); Hematocrit 31.9 % (40-54); Hemoglobin 10.5 g/dL (13.0-16.5); Lymphocyte # 0.96 X10^3/ul (0.83-4.51); Lymphocyte % 12.3 % (19-41); Mean Corp Hgb Conc 32.9 g/dL (32-36); Mean Corpuscular Hgb 31.4 pg (27.0-32.0); Mean Corpuscular Volume 95.5 fL (80-94); Mean Platelet Vol. 10.1 fl (6.2-12.0); Monocyte# 0.86 X10^3/uL; Monocyte% 11.1 % (0-10); NRBC Flagged by Analyzer 0 % (0-5); Neutrophil # 5.75 X10^3/uL (2.7-7.7); Neutrophil % 73.9 % (47-70); Platelet Count 244 K/mm3 (150-450); RBC Distribution Width CV 13.7 % (11.6-14.6); RBC Distribution Width SD 47.8 fl (35.1-43.9); Red Blood Count 3.34 M/mm3 (4.6-6.2); White Blood Count 7.8 K/mm3 (4.4-11.0)
[2024-07-11] MEDS: Ondansetron 4 MG/2 ML Vial IV (12:56)
[2024-07-11] MEDS: 0.9% Normal Saline (1000mL) 1,000 ML 999 ML IV (12:56)
[2024-07-11] MEDS: fentaNYL 100 MCG/2 ML Ampul 25 MCG IV ×2 (12:57→16:58)
[2024-07-11 13:12] LABS: ALB/GLOB Ratio 0.9 RATIO (0.9-2.4); AST(SGOT) 14 U/L (15-37); Alanine Aminotransfer ALT/SGPT 21 U/L (16-61); Albumin, Serum 3.2 g/dL (3.2-5.0); Alkaline Phosphatase 89 U/L (45-117); Anion Gap 4 (5-15); BUN 23 mg/dL (7-18); BUN/Creat Ratio 35.5 RATIO (10-20); Calcium,Total 9.2 mg/dL (8.5-10.1); Chloride 104 mmol/L (98-107); Creatinine, Serum 0.65 mg/dL (0.70-1.30); EST Glomerular Filtration Rate 125 mL/min (>60); Est Glom Filt Rate - Afr Amer 151 mL/min (>60); Estimated Creatinine Clearance 68.74 ml/min; Globulin 3.5 g/dL (2.2-4.2); Glucose 97 mg/dL (74-106); Potassium 3.7 mmol/L (3.5-5.1); Protein, Total 6.7 g/dL (6.4-8.2); Sodium Level 140 mmol/L (136-145); Troponin-I HS 20 pg/mL (3.0-78.0)
--- NOTE | 2024-07-11 13:13 | RAD_ITS ---
INDICATION: cough EXAMINATION/TECHNIQUE: X-RAY - XR Chest 1 View COMPARISON: Prior study dated: 05/27/2024 FINDINGS: LINES/DEVICES: None. LUNGS: The examination was obtained in lordotic position. Significant artifacts limiting the examination. No focal infiltrate is seen. No evidence of pleural effusions. MEDIASTINUM AND CARDIOVASCULAR STRUCTURES: Normal cardiac silhouette. Difficult to accurately evaluate mediastinum. BONES AND SOFT TISSUES: Degenerative changes of both shoulders. Surgical pins overlying the left humeral head. RAD/Chest 1 View (Portable) IMPRESSION: No radiographic evidence of acute cardiopulmonary disease. Electronically Signed: Marek Salgado MD at 14:20 EST ,
[2024-07-11 14:35] LABS: Bacteria 0 SEEN /hpf (None Seen); Mucous, Urine 0 SEEN /hpf (<or=2+); Red Blood Cells-Urine 0 SEEN /hpf (0-5); White Blood Cells 0 SEEN /hpf (0-5)
[2024-07-11 14:37] LABS: Color, Urine Yellow (Yellow); Glucose, Dipstick Normal (Normal); Ketone-Dipstick Negative (Negative); Leukocyte Esterase-Dipstick 25 /ul (Negative); Nitrite-Dipstick Negative (Negative); Occult Blood-Urine 10 /ul (Negative); Protein-Dipstick 15 mg/dl (Negative); Specific Gravity, Urine 1.025 (1.002-1.030); Urine Bilirubin Dipstick Negative (Negative); Urine Clarity Clear (Clear); Urine Urobilinogen Normal (Normal)
[2024-07-11 14:44] LABS: Squamous Epithelial Cells - UA 0-5 SEEN /hpf (0-5)
--- NOTE | 2024-07-11 14:45 | CT_ITS ---
STUDY: CTA CHEST REASON FOR EXAM: Male, 84 years old. Left chest wall pain. Look at ribs also. RADIATION DOSAGE (If Supplied By Facility): CTDIvol = ( 16.08 ) mGy, DLP = ( 857.90 ) mGycm TECHNIQUE: The examination was performed with the intravenous administration of IV 100mL [id number]-370. Post-processing of the angiographic images was performed, with multiplanar reformation and 3D reconstruction. The protocol utilizes one or more of the following dose reduction techniques: automated exposure control, adjustment of mA and/or kV according to patient size,and/or use of iterative reconstruction technique. COMPARISON: No relevant prior comparison study available FINDINGS: Normal enhancement of the main pulmonary artery and right and left pulmonary arteries. There is limited enhancement of the bilateral peripheral pulmonary arteries. There is no demonstrated central pulmonary embolism. Suboptimal evaluation of the peripheral branches. There is atherosclerotic tortuosity of the aortic arch and descending thoracic aorta. There is no demonstrated aortic dissection. Normal heart and pericardium. There are calcifications of the coronary arteries. Normal mediastinum. Normal hilar regions. Normal visualized trachea and bronchi. Patchy infiltrates in the right lower lobe. Small left pleural effusion. Asymmetric right breast density. Correlation with clinical findings and nonemergent breast ultrasound and possible mammogram. Degenerative changes of the thoracic spine. The visualized upper abdomen demonstrate simple cyst in the right kidney. Possible gallstones. CT/CTA Chest W/WO Contrast IMPRESSION: 1. No evidence of central pulmonary embolism. Suboptimal evaluation of the peripheral branches. 2. Mild right lower lung infiltrate could be due to pneumonia. 3. Small left pleural effusion. 4. Asymmetric right breast density for which further investigation is needed. 5. Possible small gallstones. Electronically Signed: Marek Salgado MD at 16:06 [facility] ,
[2024-07-11] MEDS: fentaNYL 100 MCG/2 ML Ampul 50 MCG IV (14:51)
--- NOTE | 2024-07-11 17:38 | PCM.HP.STD ---
HPI - General General Date of Admission: 07/11/24 Date of Service: 07/11/24 Chief Complaint: Intractable left-sided thoracic pain/chest pain/headache HPI Narrative SARA SAHA, is a 84 M who presented to the emergency department at [facility] from his local ECF at [facility] on 07/11/2023 with a chief complaint of right-sided headache which had dissipated by the time I evaluated him and intractable left-sided thoracic back pain that wraps around to his left chest. The patient was diagnosed with stage IV breast cancer that is ER, OR, HER2 denise positive in early June. He follows with Dr. العراقي and is in the process of starting tamoxifen. He is not a candidate for chemotherapy or monoclonal therapy for HER2/denise per documentation. He stated his pain in his back and side/chest area started today it wraps around from his back to his anterior chest area and extremely hypersensitive to touch. He states he has had shingles previously and it feels similar to this. He does not have a rash at this time but on exam he does appear to have a couple of red bumps that seem to be developing on his back in the area of tenderness. Imaging was completely benign. Vital signs on presentation showed temperature of 98.9, heart rate 48, respiratory 18, blood pressure 98/58, oxygen saturation was 90% room air. CBC showed a mild anemia with a hemoglobin of 10.5 which is stable and chronic. Chemistry panel was overtly unremarkable. LFTs were unremarkable. Troponin x 2 were negative at 20. UA was not consistent with infection. EKG was unremarkable. Chest x-ray was unremarkable. CT of the chest showed no evidence of pulmonary emboli however injection was suboptimal for peripheral branch evaluation, mild right lower lung atelectasis with a small left pleural effusion and asymmetric right breast density with possible small gallstones. He was treated with pain medicine the emergency department given the fact that his pain is intractable request for admission was made. After my evaluation his right foot looks cellulitic and they requested that they give him a dose of Zosyn which was performed. [facility] Medical History (Updated 07/11/24 @ 17:[address] 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) Essential hypertension Peripheral arterial occlusive disease History of basal cell cancer Cervical radiculopathy Stenosis of cervical spine with myelopathy Debility Restless leg syndrome Normochromic normocytic anemia Orthostatic hypotension Depression Urine retention Urinary incontinence Left ventricular hypertrophy BPH (benign prostatic hyperplasia) Pressure ulcer Myelopathy Tobacco dependence in remission Renal cyst Osteoarthritis Microscopic hematuria Eczema Anterolisthesis Leg swelling PAD (peripheral artery disease) Hyperlipidemia Atherosclerotic heart disease of [place] coronary artery without angina pectoris Paroxysmal atrial fibrillation Dilated aortic root Home Medications ?Medication ?Instructions ?Recorded ?Last Taken ?Type finasteride 5 mg tablet (Proscar) 5 mg PO DAILY PROSTATES 07/18/17 02/25/24 History cilostazol 50 mg tablet 50 mg PO BID vasodilator 02/02/22 02/25/24 History ascorbic acid (vitamin C) 500 mg 500 mg PO 1200 vitamin #1 TAB 07/25/23 02/24/24 Rx tablet ferrous sulfate 325 mg (65 mg 325 mg PO DAILY@1200 supplement #1 07/25/23 02/24/24 Rx iron) tablet (FeroSul) TAB ammonium lactate 12 % topical cream 1 applic topical QHS skin 11/30/23 02/24/24 History mirtazapine 7.5 mg tablet 7.5 mg PO QHS mental health 11/30/23 02/24/24 History gabapentin 100 mg capsule 100 mg PO BIDCM nerve pain #30 caps 12/04/23 02/25/24 Rx pantoprazole 40 mg tablet,delayed 40 mg PO DAILY reflux #60 tabs 02/12/24 02/25/24 Rx release (Protonix) atorvastatin 20 mg tablet 20 mg PO QHS cholesterol 02/25/24 02/24/24 History hydrocortisone 2.5 % topical cream 1 applic topical BID skin 02/25/24 02/24/24 History nystatin 100,000 unit/gram topical 1 applic topical BID skin 02/25/24 02/24/24 History ointment sucralfate 100 mg/mL oral 1 g PO 4X/DAY 02/25/24 Unknown History suspension (Carafate) levothyroxine 25 mcg tablet 12.5 mcg (1/2 x 25 mcg) PO 02/27/24 Unknown Rx DAILY@0600 thyroid #0 tabs midodrine 5 mg tablet 5 mg PO TIDCM blood pressure #0 02/27/24 Unknown Rx tabs prednisone 5 mg tablet 10 mg (2 x 5 mg) PO DAILY 02/27/24 Unknown Rx inflammation #0 tabs ondansetron 4 mg disintegrating 4 mg PO Q8H PRN PRN Nausea #10 tabs 05/23/24 Unknown Rx tablet citalopram 10 mg tablet 10 mg PO QDAY 06/15/24 Unknown History potassium chloride 20 mEq 20 meq PO QDAY 06/23/24 Unknown History tablet,extended release(part/cryst) tizanidine 2 mg tablet 2 mg PO QHS PRN muscle spasticity 06/23/24 Unknown History acetaminophen 500 mg tablet 1,000 mg PO BID 06/25/24 Unknown History tamoxifen 20 mg tablet 100 mg (5 x 20 mg) PO QDAY 30 days 07/08/24 Unknown Rx #450 tabs cyanocobalamin (vitamin B-12) 1,000 mcg PO DAILY 07/11/24 Unknown History 1,000 mcg capsule Allergy/AdvReac Type Severity Reaction Status Date / Time morphine AdvReac Intermediate Other Verified 07/11/24 12:08 Family History Mother CHF (congestive heart failure) Heart disease Hypertension Father COPD (chronic obstructive pulmonary disease) Surgical History S/P debridement History of vascular surgery History of coronary artery stent placement (01/11/16) H/O laminectomy History of knee surgery S/P rotator cuff repair History of pilonidal cyst Social History household members: none housing: house number of children: 5 current occupation: retired current occupational exposures/hazards: No history of recent travel: No Smoking Status: Former smoker how long ago did patient quit smokin alcohol intake: current alcohol intake frequency: holidays/special occasions only details: occasional,holiday substance use type: does not use caffeine: Yes Type: coffee Number of servings: 10 what type of physical activity do you participate in: bicycling frequency: 1-2 times per week duration: 15-30 minutes/day seatbelt use: always do you feel safe at home: Yes ROS Constitutional Constitutional: Reports fatigue and weakness; Denies anorexia, change in weight, chills, fever(s), malaise, night sweats or other Eyes Eyes: Denies blurry vision, change in eye color, change in vision, discharge from eye(s), double vision, erythema, eye pain, loss of vision or other ENT HEENT: Denies abnormal hearing, dysphagia, ear pain, epistaxis, headache(s), hearing loss, nasal congestion, nasal discharge, post nasal drip, sinus pressure, sore throat or other Cardiovascular Cardiovascular: Reports chest pain; Denies claudication, dyspnea on exertion, edema, lightheadedness, orthopnea, palpitations, paroxysmal nocturnal dyspnea, rapid heart rate, syncope or other Respiratory/Chest Respiratory/Chest: Denies cough, dyspnea, excessive phlegm production, hemoptysis, productive cough, shortness of breath at rest, shortness of breath with exertion, wheezing or other Gastrointestinal Gastrointestinal: Denies abdominal pain, coffee ground emesis, constipation, diarrhea, dyspepsia, hematemesis, hematochezia, loose stools, melena, nausea, vomiting or other Genitourinary Genitourinary: Denies burning urination, difficulty urinating, dysuria, hematuria, nocturia, urinary frequency, urinary hesitancy, urinary incontinence, urinary urgency or other Musculoskeletal Musculoskeletal: Reports back pain; Denies arthralgias, joint pain, joint stiffness, joint swelling, myalgias, neck pain or other Neurologic Neurologic: Reports numbness and other Details: Hypersensitivity left-sided back and chest ; Denies abnormal gait, abnormal speech, confusion, disequilibrium, dizziness, focal weakness, headache(s), paresthesias, seizure-like activity, seizures, syncope, tingling or tremor(s) Psychiatric Psychiatric: Denies anxiety, depression, homicidal ideation, suicidal ideation or other Endocrine Endocrinology: Denies change in body appearance, cold intolerance, excessive sweating, heat intolerance, polydipsia, polyuria or other Hematologic/Lymphatic Hematologic/Lymphatic: Denies anemia, easy bleeding, easy bruising, lymphadenopathy or other Allergic/Immunologic Allergic/Immunologic: Denies rhinitis, hives, eczemia, asthma or other Vital Signs Vital Signs Vital Signs: 07/11/24 12:08 07/11/24 13:07 07/11/24 14:00 Temperature 98.9 F Temperature Source Oral Pulse Rate 48 L 58 L 63 Respiratory Rate 18 14 16 Blood Pressure 98/58 L 99/54 L 92/64 Blood Pressure Mean 71 69 73 Pulse Ox 98 97 98 Oxygen Delivery Method Room Air Room Air 07/11/24 15:00 07/11/24 16:00 07/11/24 17:00 Temperature 98.7 F 98.7 F Temperature Source Temporal Temporal Pulse Rate 52 L 68 80 Respiratory Rate 18 16 16 Blood Pressure 134/78 H 113/53 L Blood Pressure Mean 96 73 Pulse Ox 95 98 98 Oxygen Delivery Method Room Air Room Air Room Air Weight Weight: 83.9 kg Body Mass Index (BMI) 27.3 Physical Exam Const alert, oriented x3, no apparent distress and average body habitus Constitutional Narrative: Elderly, frail-appearing, white male, sitting up in bed, daughter at bedside, appears uncomfortable but not toxic, leaning to right side due to pain in the left General Appearance: cooperative HEENT normocephalic, head/scalp atraumatic and moist oral mucous membranes HEENT Narrative: Moderate hearing loss, Mallampati 2, no thrush Eyes conjunctivae normal Eyes Narrative: No scleral icterus Neck supple Neck Narrative: Trachea midline Resp normal respiratory effort, no retractions, no use of accessory muscles and clear to auscultation bilaterally Auscultation: Negative for rales, rhonchi or wheezes Cardio regular rate, regular rhythm, S1 normal heart sound, S2 normal heart sound, no murmurs, no rub, no gallops and no clicks GI normal to inspection, nondistended, normoactive bowel sounds, soft to palpation and non-tender Extremity Extremity Narrative: Right foot with mild edematous, skin as noted below, pedal pulses are 2+, no cyanosis or clubbing Skin Skin Narrative: Right hand with significant skin cracking patient attributes this to eczema, left foot with significant tinea pedis, right foot with erythematous changes up to the dorsum consistent with cellulitis, third digit with stitch in place and no significant drainage noted however toe is severely erythematous, well-healed incision on the posterior aspect of the neck Neuro moves all extremities Neuro Narrative: Severe sensory deficits bilateral feet, marked generalized weakness lower extremity more affected than upper extremities Speech: speech normal Psych affect normal Psych Narrative: Very pleasant, interacts appropriately, makes good eye contact Results Lab / Micro Data 07/11/24 12:15 07/11/24 12:15 Labs: Laboratory Results - last 24 hr 07/11/24 12:15: WBC 7.8, RBC 3.34 L, Hgb 10.5 L, Hct 31.9 L, MCV 95.5 H, MCH 31.4, MCHC 32.9, RDW Std Deviation 47.8 H, RDW Coeff of [place] 13.7, Plt Count 244, MPV 10.1, Immature Gran % (Auto) 1.000 H, Neut % (Auto) 73.9 H, Lymph % (Auto) 12.3 L, [place] % (Auto) 11.1 H, Eos % (Auto) 1.4, Baso % (Auto) 0.3, Absolute Neuts (auto) 5.8, Absolute Lymphs (auto) 0.96, Nucleated RBC % 0, Sodium 140, Potassium 3.7, Chloride 104, Carbon Dioxide 32.0, Anion Gap 4 L, BUN 23 H, Creatinine 0.65 L, Estim Creat Clear Calc 68.74, Est GFR (MDRD) Af Amer 151, Est GFR (MDRD) Non-Af 125, BUN/Creatinine Ratio 35.5 H, Glucose 97, Calcium 9.2, Total Bilirubin 0.40, AST 14 L, ALT 21, Alkaline Phosphatase 89, Troponin I High Sens 20, Total Protein 6.7, Albumin 3.2, Globulin 3.5, Albumin/Globulin Ratio 0.9 07/11/24 14:30: Urine Color Yellow, Urine Clarity Clear, Urine pH 5.0, Ur Specific [place] 1.025, Urine Protein 15 H, Urine Glucose (UA) Normal, Urine Ketones Negative, Urine Occult Blood 10 H, Urine Nitrite Negative, Urine Bilirubin Negative, Urine Urobilinogen Normal, Ur Leukocyte Esterase 25 H, Urine RBC 0 SEEN, Urine WBC 0 SEEN, Ur Squamous Epith Cells 0-5 SEEN, Urine Bacteria 0 SEEN, Urine Mucus 0 SEEN Imaging Radiology Impression Brain CT 07/11/24 12:47 IMPRESSION: No acute intracranial process. Electronically Signed: Marek Salgado MD at 14:11 EST , Chest X-Ray 07/11/24 13:13 IMPRESSION: No radiographic evidence of acute cardiopulmonary disease. Electronically Signed: Marek Salgado MD at 14:20 EST , Chest CTA 07/11/24 14:45 IMPRESSION: 1. No evidence of central pulmonary embolism. Suboptimal evaluation of the peripheral branches. 2. Mild right lower lung infiltrate could be due to pneumonia. 3. Small left pleural effusion. 4. Asymmetric right breast density for which further investigation is needed. 5. Possible small gallstones. Electronically Signed: Marek Salgado MD at 16:06 EST , Assessment & Plan Assessment/Plan (1) Acute chest wall pain: (2) Intractable back pain: (3) Cellulitis of foot, right: (4) Tinea pedis: (5) Acute eczema: (6) Eczema of hand: (7) Weakness: (8) Breast cancer in male: QUALIFIERS: Breast location: combined nipple and areola Estrogen receptor status: positive Laterality: right Qualified Code(s): C50.021 - Malignant neoplasm of nipple and areola, right male breast; Z17.0 - Estrogen receptor positive status [ER+] PLAN: Plan Right foot cellulitis -Patient had traumatic event where he actually had the toenail pulled off and brusher and shearer had the suture -Patient without any sensation in the foot but has marked erythema and swelling which is not consistent with his baseline and it is extending up into the dorsum of his foot -Will start Zosyn and I did choose Zosyn to Pseudomonas--> previous sensitivities reviewed reviewed and he does have history of Staph aureus but it was MSSA -Monitor clinically and only add vancomycin if clinically warrants -Wound care nurse consulted -Poultry Dresser consulted as there is a suture in the distal aspect of his third digit on his right toe -Elevate the foot Left-sided thoracic pain that wraps to the left chest area -No rash at this time however area is very hypersensitive -Strongly suspect that he may have shingles so we will treat accordingly -Will start acyclovir 800 mg 5 times daily for 7 days -Hold home gabapentin -Start Lyrica 150 mg twice daily--> creatinine clearance is 68.74 Acute eczema flare of right hand -Continue home topical agents -Add Aquaphor twice daily Left foot tinea -Continue home nystatin Headache -Patient had right-sided headache on presentation however beside my evaluation the headache had resolved -I did palpate over the temporal artery as he has a history of PMR and this was benign -Continue to monitor 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 العراقي--> plan is for tamoxifen 100 mg daily for 4 weeks then reassess -Per documentation not a candidate for chemotherapy or monoclonal therapy against HER2 -Patient agreeable to palliative care consult Generalized weakness -Patient is nonambulatory at baseline -Is receiving PT and OT so we will continue Paroxysmal atrial fibrillation -patient is not anticoagulated -Not on any rate controlling medication -Currently in sinus rhythm History of C. difficile colitis -Will utilize lactobacillus to help avoid C. difficile infection and the setting of antibiotic use for cellulitis Chronic hypotension -Continue home midodrine CAD/hyperlipidemia/PAD -Continue atorvastatin -Continue cilostazol GERD -Continue home Carafate -Continue home PPI BPH with obstruction -Continue home Proscar Chronic neuropathy -Hold hold gabapentin as we are currently using Lyrica for suspected shingles Left posterior ankle wound -This does not appear infected -Wound nurse consultation pending History of PMR -Continue prednisone 10 mg daily DVT prophylaxis -Lovenox subcu daily CODE STATUS -DNR CCA with no intubation per discussion at the time of admission -I did discuss the fact that the patient has stage IV breast cancer and that this was not curative. Patient states he did not know this. We discussed utilization of palliative care in conjunction with his hormonal therapy and he was amenable to this so we will place palliative care consultation which can be completed after discharge when he returns back to [place] if need be. Charges/Coding Visit Charges Inpatient E&M: 91183 Init Hosp L3
[2024-07-11] MEDS: Piperacil/Tazobactam 3.375 GM in 0.9% Normal Saline (50mL MB+) 50 ML IV ×2 (17:54→21:17)
[2024-07-11 18:29] LABS: Troponin-I HS 20 pg/mL (3.0-78.0)
[2024-07-11] MEDS: Midodrine HCl 5 MG Tablet PO (20:10)
[2024-07-11] MEDS: Atorvastatin Calcium 20 MG Tablet PO (21:14)
[2024-07-11] MEDS: Lactobacillis Acidophilus 1 CAP PO (21:14)
[2024-07-11] MEDS: Acyclovir 800 MG Tablet PO (21:14)
[2024-07-11] MEDS: Mirtazapine 15 MG Tablet 7.5 MG PO (21:14)
[2024-07-11] MEDS: Pregabalin 75 MG Capsule 150 MG PO (21:14)
[2024-07-11] MEDS: Acetaminophen 500 MG Tablet 1000 MG PO (21:14)
[2024-07-11] MEDS: Sucralfate 1 GM Tablet PO (21:14)
[2024-07-11] MEDS: Hydrocortisone 2.5% Crm 1 APPLIC TOPICAL (21:15)
[2024-07-11] MEDS: Ammonium Lactate 225 gm Bottle 1 APPLIC TOPICAL (21:15)
[2024-07-11] MEDS: Cilostazol 50 MG Tablet PO (21:15)
[2024-07-11] MEDS: Mineral Oil/Petrolatum Cr 1.75oz Bottle 1 APPLIC TOPICAL (21:16)
[2024-07-11] MEDS: 0.9% Saline Lock 10 ML Syringe IV (21:16)
[2024-07-11] MEDS: Nystatin Ointment 1 APPLIC TOPICAL (21:28)
[2024-07-12] VITALS (8 sets, daily range): BP systolic 78–114; BP diastolic 38–57; PULSE 66–78; RESP 16–20; TEMP 36.7–38.4; O2SAT 92–98; BMI 23.4
[2024-07-12] MEDS: Albumin Human 25% (100 mL) 25 GM/100 ML BAG IV (02:40)
[2024-07-12] MEDS: 0.9% Saline Lock 10 ML Syringe IV ×2 (02:40→18:34)
[2024-07-12 04:08] LABS: Absolute Lymphocyte Count 0.45 X10^3/uL (0.83-4.51); Absolute Neutrophil Count 6.9 X10^3/uL (2.0-7.7); Basophil# 0.01 X10^3/uL; Basophil% 0.1 % (0-1); Eosinophil# 0.03 X10^3/uL; Eosinophils% 0.4 % (0-5); Hematocrit 28.4 % (40-54); Hemoglobin 9.4 g/dL (13.0-16.5); Lymphocyte # 0.45 X10^3/ul (0.83-4.51); Lymphocyte % 5.4 % (19-41); Mean Corp Hgb Conc 33.1 g/dL (32-36); Mean Corpuscular Hgb 31.6 pg (27.0-32.0); Mean Corpuscular Volume 95.6 fL (80-94); Mean Platelet Vol. 10.2 fl (6.2-12.0); Monocyte# 0.87 X10^3/uL; Monocyte% 10.4 % (0-10); NRBC Flagged by Analyzer 0 % (0-5); Neutrophil # 6.91 X10^3/uL (2.7-7.7); POSITIVE DIFFERENTIAL YES; Platelet Count 233 K/mm3 (150-450); RBC Distribution Width CV 13.7 % (11.6-14.6); RBC Distribution Width SD 47.9 fl (35.1-43.9); Red Blood Count 2.97 M/mm3 (4.6-6.2); White Blood Count 8.3 K/mm3 (4.4-11.0)
[2024-07-12 04:30] LABS: ALB/GLOB Ratio 0.9 RATIO (0.9-2.4); AST(SGOT) 11 U/L (15-37); Alanine Aminotransfer ALT/SGPT 17 U/L (16-61); Albumin, Serum 2.9 g/dL (3.2-5.0); Alkaline Phosphatase 70 U/L (45-117); Anion Gap 3 (5-15); BUN 20 mg/dL (7-18); BUN/Creat Ratio 25.6 RATIO (10-20); Calcium,Total 8.7 mg/dL (8.5-10.1); Chloride 101 mmol/L (98-107); Creatinine, Serum 0.78 mg/dL (0.70-1.30); EST Glomerular Filtration Rate 101 mL/min (>60); Est Glom Filt Rate - Afr Amer 122 mL/min (>60); Estimated Creatinine Clearance 70.29 ml/min; Globulin 3.2 g/dL (2.2-4.2); Glucose 88 mg/dL (74-106); Magnesium 1.8 mg/dL (1.6-2.6); Phosphorus 3.2 mg/dL (2.5-4.9); Potassium 4.8 mmol/L (3.5-5.1); Protein, Total 6.1 g/dL (6.4-8.2); Sodium Level 133 mmol/L (136-145)
[2024-07-12] MEDS: Piperacil/Tazobactam 3.375 GM in 0.9% Normal Saline (50mL MB+) 50 ML IV ×3 (05:26→22:12)
[2024-07-12] MEDS: Acyclovir 800 MG Tablet PO ×2 (05:27→22:12)
[2024-07-12] MEDS: Levothyroxine 25 MCG TABLET 12.5 MCG PO (05:27)
[2024-07-12] MEDS: Sucralfate 1 GM Tablet PO ×2 (05:27→22:16)
[2024-07-12] MEDS: Acetaminophen 500 MG Tablet 1000 MG PO ×2 (05:27→22:21)
[2024-07-12] MEDS: Midodrine HCl 5 MG Tablet PO (05:28)
--- NOTE | 2024-07-12 08:14 | PN.HOSP_ITS ---
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 Increased fever. Objective Data Objective Data Vital Signs: Vital Signs Temp Pulse Resp BP Pulse Ox O2 Del Method 36.7 C 73 18 78/41 L 92 Room Air 07/12/24 07:20 07/12/24 07:20 07/12/24 07:20 07/12/24 07:20 07/12/24 07:20 07/12/24 07:20 Oxygen Delivery Method Room Air Weight: 74.2 kg Body Mass Index (BMI) 23.4 Intake & Output: Intake and Output for Last 24 Hours 07/10/24 07/11/24 07/12/24 23:59 23:59 23:59 Intake Total 1050 / 1170 420 / 420 Output Total 400 / 400 Balance 1050 / 970 Lab / Micro Data 07/12/24 03:48 07/12/24 03:48 Labs: Laboratory Results - last 24 hr 07/11/24 12:15: WBC 7.8, RBC 3.34 L, Hgb 10.5 L, Hct 31.9 L, MCV 95.5 H, MCH 31.4, MCHC 32.9, RDW Std Deviation 47.8 H, RDW Coeff of [place] 13.7, Plt Count 244, MPV 10.1, Immature Gran % (Auto) 1.000 H, Neut % (Auto) 73.9 H, Lymph % (Auto) 12.3 L, [place] % (Auto) 11.1 H, Eos % (Auto) 1.4, Baso % (Auto) 0.3, Absolute Neuts (auto) 5.8, Absolute Lymphs (auto) 0.96, Nucleated RBC % 0, Sodium 140, Potassium 3.7, Chloride 104, Carbon Dioxide 32.0, Anion Gap 4 L, BUN 23 H, C reatinine 0.65 L, Estim Creat Clear Calc 68.74, Est GFR (MDRD) Af Amer 151, Est GFR (MDRD) Non-Af 125, BUN/Creatinine Ratio 35.5 H, Glucose 97, Calcium 9.2, Total Bilirubin 0.40, AST 14 L, ALT 21, Alkaline Phosphatase 89, Troponin I High Sens 20, Total Protein 6.7, Albumin 3.2, Globulin 3.5, Albumin/Globulin Ratio 0.9 07/11/24 14:30: Urine Color Yellow, Urine Clarity Clear, Urine pH 5.0, Ur Specific [place] 1.025, Urine Protein 15 H, Urine Glucose (UA) Normal, Urine Ketones Negative, Urine Occult Blood 10 H, Urine Nitrite Negative, Urine Bilirubin Negative, Urine Urobilinogen Normal, Ur Leukocyte Esterase 25 H, Urine RBC 0 SEEN, Urine WBC 0 SEEN, Ur Squamous Epith Cells 0-5 SEEN, Urine Bacteria 0 SEEN, Urine Mucus 0 SEEN 07/11/24 17:57: Troponin I High Sens 20 07/12/24 03:48: WBC 8.3, RBC 2.97 L, Hgb 9.4 L, Hct 28.4 L, MCV 95.6 H, MCH 31.6, MCHC 33.1, RDW Std Deviation 47.9 H, RDW Coeff of [place] 13.7, Plt Count 233, MPV 10.2, Immature Gran % (Auto) 0.700, Neut % (Auto) 83.0 H, Lymph % (Auto) 5.4 L, [place] % (Auto) 10.4 H, Eos % (Auto) 0.4, Baso % (Auto) 0.1, Absolute Neuts (auto) 6.9, Absolute Lymphs (auto) 0.45 L, Nucleated RBC % 0, Sodium 133 L, Potassium 4.8, Chloride 101, Carbon Dioxide 29.0, Anion Gap 3 L, BUN 20 H, Creatinine 0.78, Estim Creat Clear Calc 70.29, Est GFR (MDRD) Af Amer 122, Est GFR (MDRD) Non-Af 101, BUN/Creatinine Ratio 25.6 H, Glucose 88, Calcium 8.7, Phosphorus 3.2, Magnesium 1.8, Total Bilirubin 0.70, AST 11 L, ALT 17, Alkaline Phosphatase 70, Total Protein 6.1 L, Albumin 2.9 L, Globulin 3.2, Albumin/Globulin Ratio 0.9 Radiography Diagnostic Testing: Radiology Impression Brain CT 07/11/24 12:47 IMPRESSION: No acute intracranial process. Electronically Signed: Marek Salgado MD at 14:11 EST , Chest X-Ray 07/11/24 13:13 IMPRESSION: No radiographic evidence of acute cardiopulmonary disease. Electronically Signed: Marek Salgado MD at 14:20 EST , Chest CTA 07/11/24 14:45 IMPRESSION: 1. No evidence of central pulmonary embolism. Suboptimal evaluation of the peripheral branches. 2. Mild right lower lung infiltrate could be due to pneumonia. 3. Small left pleural effusion. 4. Asymmetric right breast density for which further investigation is needed. 5. Possible small gallstones. Electronically Signed: Marek Salgado MD at 16:06 EST , Physical Exam Const Constitutional Narrative: lethargic. febrile. able to tell me his name. weak voice HEENT head/scalp atraumatic Resp normal respiratory effort, no retractions, no use of accessory muscles and clear to auscultation bilaterally Cardio regular rate, regular rhythm, S1 normal heart sound and S2 normal heart sound GI normal to inspection, nondistended, normoactive bowel sounds, soft to palpation, non-tender and non-distended Extremity normal to inspection Extremity Narrative: suture on distal right 3rd toe. erythema on dorsum of right foot. Neuro Sensorium / Orientation: awake and alert Assessment & Plan Assessment/Plan (1) Acute chest wall pain: (2) Intractable back pain: (3) Cellulitis of foot, right: (4) Tinea pedis: (5) Acute eczema: (6) Eczema of hand: (7) Breast cancer in male: QUALIFIERS: Breast location: combined nipple and areola Estrogen receptor status: positive Laterality: right Qualified Code(s): C50.021 - Malignant neoplasm of nipple and areola, right male breast; Z17.0 - Estrogen receptor positive status [ER+] PLAN: Plan Right foot cellulitis * Patient had traumatic event where he actually had the toenail pulled off and weather forecaster had the suture * Patient without any sensation in the foot but has marked erythema and swelling which is not consistent with his baseline and it is extending up into the dorsum of his foot * Will start Zosyn and I did choose Zosyn to Pseudomonas--> previous sensitivities reviewed reviewed and he does have history of Staph aureus but it was MSSA * Wound care nurse consulted * Children'S Minister consulted as there is a suture in the distal aspect of his third digit on his right toe * Elevate the foot Left-sided thoracic pain that wraps to the left chest area * No rash at this time. Not sensitive at this time. Reviewed imaging, no obvious vertebral fracture. * No clear evidence of shingles. Will continue acyclovir for now. * Will start acyclovir 800 mg 5 times daily for 7 days * Hold pregabalin given encephalopathy Encephalopathy * Suspect metabolic. Unclear if related with hypotension. * Had hydromorphone, pregabalin ordered. Those have been held. Did receive a pregabalin on 07/11. Hypotension * concern for adrenal crisis given his long-term prednisone. Start stress-dose steroid. * Will give additional IVF. 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 العراقي--> plan is for tamoxifen 100 mg daily for 4 weeks then reassess * Per documentation not a candidate for chemotherapy or monoclonal therapy against HER2 * Patient agreeable to palliative care consult Generalized weakness * Patient is nonambulatory at baseline * Is receiving PT and OT so we will continue Chronic conditions: * Paroxysmal atrial fibrillation -patient is not anticoagulated-Not on any rate controlling medication-Currently in sinus rhythm * History of C. difficile colitis-Will utilize lactobacillus to help avoid C. 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 Charges/Coding Visit Charges Inpatient E&M: 24516 Subs Hosp L3
[2024-07-12] MEDS: Mineral Oil/Petrolatum Cr 1.75oz Bottle 1 APPLIC TOPICAL ×2 (10:12→22:10)
[2024-07-12] MEDS: Hydrocortisone 2.5% Crm 1 APPLIC TOPICAL ×2 (10:22→22:16)
[2024-07-12] MEDS: Enoxaparin 40 MG/0.4 ML Syringe SC (10:24)
[2024-07-12 11:23] LABS: Erythrocyte Sedimentation Rate 11 mm/hr (0-20)
[2024-07-12] MEDS: Acetaminophen 650 MG Suppository RC (11:25)
[2024-07-12] MEDS: Hydrocortisone Sod Succinate 100 MG/2 ML Vial IV (11:33)
--- NOTE | 2024-07-12 11:58 | RAD_ITS ---
STUDY: XR Foot Min 3 Views CLINICAL: Male, 84 years old. RIGHT FOOT CELLULITIS TECHNIQUE: XR Foot 3 ViewsRIGHT COMPARISON: None. FINDINGS: There is a plantar calcaneal spur. Achilles spur. Degenerative arthrosis nearly tarsal bones. Degenerative changes of the ankle mortise. Healed fracture distal fifth metatarsal bone. Normal metatarsophalangeal joint of the great toe. Normal tibial and fibular sesamoid bones. Normal interphalangeal joint of the great toe. Normal phalanges of the great toe. Normal second through fifth metatarsophalangeal joints. Normal interphalangeal joints and phalanges of the lesser toes. The soft tissue structures are unremarkable. RAD/Foot min 3 Views IMPRESSION: There are no acute findings of the foot. Electronically Signed: Guanakito Crystal MD at 15:09 EST ,
--- NOTE | 2024-07-12 14:28 | PCM.CONS.GEN ---
Assessment & Plan Assessment/Plan (1) Cellulitis of foot, right: PLAN: Dressing orders given continue antibiotics will [place]. (2) Tinea pedis: PLAN: Will add ketoconazole the right lower extremity as well as the left to treat as directed. (3) Breast cancer in male: QUALIFIERS: Breast location: combined nipple and areola Estrogen receptor status: positive Laterality: right Qualified Code(s): C50.021 - Malignant neoplasm of nipple and areola, right male breast; Z17.0 - Estrogen receptor positive status [ER+] (4) Breast mass in male: HPI Consult Data Date of Consult: 07/12/24 HPI Narrative Reason for Consultation: Cellulitis right foot HPI Narrative: SARA SAHA, is a 84 M who presents seems as though this patient was recently diagnosed with breast cancer as a male who has a breast mass who now has had what appears to be metastasis to the brain. He also has intractable back pain has had C3-C4 fusion. Presented today with weakness and recently had been having surgery by Dr. Ivonne Gleason for a right third digit abscess versus infection versus bleed she had performed this on Saturday of last week and here for follow-up to make sure everything is stable. [facility] Medical History (Updated 07/11/24 @ 17:[address] 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) Essential hypertension Peripheral arterial occlusive disease History of basal cell cancer Cervical radiculopathy Stenosis of cervical spine with myelopathy Debility Restless leg syndrome Normochromic normocytic anemia Orthostatic hypotension Depression Urine retention Urinary incontinence Left ventricular hypertrophy BPH (benign prostatic hyperplasia) Pressure ulcer Myelopathy Tobacco dependence in remission Renal cyst Osteoarthritis Microscopic hematuria Eczema Anterolisthesis Leg swelling PAD (peripheral artery disease) Hyperlipidemia Atherosclerotic heart disease of [place] coronary artery without angina pectoris Paroxysmal atrial fibrillation Dilated aortic root Home Medications ?Medication ?Instructions ?Recorded ?Last Taken ?Type finasteride 5 mg tablet (Proscar) 5 mg PO DAILY PROSTATES 07/18/17 02/25/24 History cilostazol 50 mg tablet 50 mg PO BID vasodilator 02/02/22 02/25/24 History ascorbic acid (vitamin C) 500 mg 500 mg PO 1200 vitamin #1 TAB 07/25/23 02/24/24 Rx tablet ferrous sulfate 325 mg (65 mg 325 mg PO DAILY@1200 supplement #1 07/25/23 02/24/24 Rx iron) tablet (FeroSul) TAB ammonium lactate 12 % topical cream 1 applic topical QHS Achalasia of 11/30/23 07/10/24 History cardia mirtazapine 7.5 mg tablet 7.5 mg PO QHS mental health 11/30/23 02/24/24 History gabapentin 100 mg capsule 100 mg PO BIDCM nerve pain #30 caps 12/04/23 02/25/24 Rx pantoprazole 40 mg tablet,delayed 40 mg PO DAILY reflux #60 tabs 02/12/24 02/25/24 Rx release (Protonix) atorvastatin 20 mg tablet 20 mg PO QHS cholesterol 02/25/24 07/10/24 History hydrocortisone 2.5 % topical cream 1 applic topical BID skin 02/25/24 02/24/24 History nystatin 100,000 unit/gram topical 1 applic topical BID skin 02/25/24 02/24/24 History ointment sucralfate 100 mg/mL oral 1 g PO 4X/DAY GERD 02/25/24 Unknown History suspension (Carafate) levothyroxine 25 mcg tablet 12.5 mcg (1/2 x 25 mcg) PO 02/27/24 Unknown Rx DAILY@0600 thyroid #0 tabs midodrine 5 mg tablet 5 mg PO TIDCM blood pressure #0 02/27/24 Unknown Rx tabs prednisone 5 mg tablet 10 mg (2 x 5 mg) PO DAILY 02/27/24 Unknown Rx inflammation #0 tabs ondansetron 4 mg disintegrating 4 mg PO Q8H PRN PRN Nausea #10 tabs 05/23/24 Unknown Rx tablet citalopram 10 mg tablet 10 mg PO QDAY Depression 06/15/24 Unknown History potassium chloride 20 mEq 20 meq PO QDAY supplement 06/23/24 Unknown History tablet,extended release(part/cryst) tizanidine 2 mg tablet 2 mg PO QHS PRN muscle spasticity 06/23/24 Unknown History acetaminophen 500 mg tablet 1,000 mg PO BID arthritis 06/25/24 Unknown History tamoxifen 20 mg tablet 100 mg (5 x 20 mg) PO QDAY 07/08/24 Unknown Rx malignant neoplasm of skin 30 days #450 tabs cyanocobalamin (vitamin B-12) 1,000 mcg PO DAILY Vitamin B-12 07/11/24 Unknown History 1,000 mcg capsule deficiency anemia Allergy/AdvReac Type Severity Reaction Status Date / Time morphine AdvReac Intermediate Other Verified 07/11/24 12:08 Family History Mother CHF (congestive heart failure) Heart disease Hypertension Father COPD (chronic obstructive pulmonary disease) Surgical History S/P debridement History of vascular surgery History of coronary artery stent placement (01/11/16) H/O laminectomy History of knee surgery S/P rotator cuff repair History of pilonidal cyst Social History household members: none housing: house number of children: 5 current occupation: retired current occupational exposures/hazards: No history of recent travel: No Smoking Status: Former smoker how long ago did patient quit smokin alcohol intake: current alcohol intake frequency: holidays/special occasions only details: occasional,holiday substance use type: does not use caffeine: Yes Type: coffee Number of servings: 10 what type of physical activity do you participate in: bicycling frequency: 1-2 times per week duration: 15-30 minutes/day seatbelt use: always do you feel safe at home: Yes ROS ROS Narrative Patient seen with his family who was able to get most of his history. Review of Systems ROS Unobtainable: due to encephalopathy Physical Exam Narrative Most pertinent physical physical exam the patient has palpable pedal pulses DP and PT bilateral. His cellulitis of the right foot is already starting to resolve as most the redness is coming down on the top of the foot it appears to be more inflammatory at this phase. In the meantime he has a third digit that was noted to have repair with approximately 3-4 stitches of the distal tuft that seems repaired there is no active bleeding there is dried blood the entire nail plate has been resent removed at this time and appears to be open at the nailbed. The redness is starting to resolve according to the family as they noted looks much better today. There is no pain to palpation he has neuropathy I redressed with Adaptic Betadine dry dressing recommend for them to continue this dressing regimen and/or antibiotic and Adaptic will plan for dressing changes and follow-up as needed I will let Dr. Croft know that the patient is seen here and that she can follow-up as needed. Const Nutritional Appearance: cachectic and underweight Extremity Extremity Narrative: Cellulitis with inflammatory changes right dorsal foot in which they marked a line at this point appears the line is starting to resolve they are using IV antibiotic therapy at this point there is no surgical need at this point continue with IV antibiotics as preventative there is nothing really to culture patient should go on to heal once follow-up outpatient. Medical Records Data Medical Nutrition Assessment Dietitian: Malnutrition Criteria Met Start: 07/12/24 13:33 Freq: Status: Active Protocol: Document 07/12/24 13:35 RMA (Rec: 07/12/24 13:35 RMA [id number]) Nutrition Malnutrition Evidence of Malnutrition Exists Yes Malnutrition (severe): Chronic Evidenced By Suboptimal Energy Intake ( Severe),Weight Loss (Severe) Intake Problem Increased Nutrient Needs (specify) Etiology for protein related to skin/ wound healing Signs/Symptoms as evidenced by multiple site wounds Status Active Problem Clinical Problem Chronic Disease or Condition Related Malnutrition Etiology severe protein-calorie malnutrition in the context of chronic disease related to inadequate oral intake and increased energy expenditure Signs/Symptoms as evidenced by ~12% unintentional weight loss x 6 months, BMI 23.5, PO meeting less than 50% estimated nutrition needs x 3-6 months and Po meeting less than 75% estimated nutrition needs x 6- 12 months Status Active Problem Recommendation Dietitian Recommendations/Changes Will liberalize diet to regular and encourage improved PO at meals. Consider CAUSTIC ROOM OPERATOR swallowing evaluation given reported swallowing difficulty. Will d/c ensure plus HP with medpass and add 240mL ensure plus HP w/ breakfast and magic cup with lunch and dinner. Will add [place] BID to support wound healing. Adjust ONS as needed to optimize PO as tolerated. May need to consider enteral nutrition support if PO remains poor and inadequate and/or weight continues to decline. Lab / Micro Data 07/12/24 03:48 07/12/24 03:48 Labs: Laboratory Results - last 24 hr 07/11/24 14:30: Urine Color Yellow, Urine Clarity Clear, Urine pH 5.0, Ur Specific [place] 1.025, Urine Protein 15 H, Urine Glucose (UA) Normal, Urine Ketones Negative, Urine Occult Blood 10 H, Urine Nitrite Negative, Urine Bilirubin Negative, Urine Urobilinogen Normal, Ur Leukocyte Esterase 25 H, Urine RBC 0 SEEN, Urine WBC 0 SEEN, Ur Squamous Epith Cells 0-5 SEEN, Urine Bacteria 0 SEEN, Urine Mucus 0 SEEN 07/11/24 17:57: Troponin I High Sens 20 07/12/24 03:48: WBC 8.3, RBC 2.97 L, Hgb 9.4 L, Hct 28.4 L, MCV 95.6 H, MCH 31.6, MCHC 33.1, RDW Std Deviation 47.9 H, RDW Coeff of [place] 13.7, Plt Count 233, MPV 10.2, Immature Gran % (Auto) 0.700, Neut % (Auto) 83.0 H, Lymph % (Auto) 5.4 L, [place] % (Auto) 10.4 H, Eos % (Auto) 0.4, Baso % (Auto) 0.1, Absolute Neuts (auto) 6.9, Absolute Lymphs (auto) 0.45 L, Nucleated RBC % 0, ESR 11, Sodium 133 L, Potassium 4.8, Chloride 101, Carbon Dioxide 29.0, Anion Gap 3 L, BUN 20 H, Creatinine 0.78, Estim Creat Clear Calc 70.29, Est GFR (MDRD) Af Amer 122, Est GFR (MDRD) Non-Af 101, BUN/Creatinine Ratio 25.6 H, Glucose 88, Calcium 8.7, Phosphorus 3.2, Magnesium 1.8, Total Bilirubin 0.70, AST 11 L, ALT 17, Alkaline Phosphatase 70, C-React Prot Ext Range 44.60 H, Total Protein 6.1 L, Albumin 2.9 L, Globulin 3.2, Albumin/Globulin Ratio 0.9 Imaging Radiology Impression Chest CTA 07/11/24 14:45 IMPRESSION: 1. No evidence of central pulmonary embolism. Suboptimal evaluation of the peripheral branches. 2. Mild right lower lung infiltrate could be due to pneumonia. 3. Small left pleural effusion. 4. Asymmetric right breast density for which further investigation is needed. 5. Possible small gallstones. Electronically Signed: Marek Salgado MD at 16:06 EST ,
[2024-07-12] MEDS: 0.9% Normal Saline (1000mL) 1,000 ML 150 ML IV ×2 (14:45→22:09)
[2024-07-12] MEDS: Hydrocortisone Sod Succinate 100 MG/2 ML Vial 50 MG IV ×2 (18:33→23:53)
[2024-07-12] MEDS: Ammonium Lactate 225 gm Bottle 1 APPLIC TOPICAL (22:11)
[2024-07-12] MEDS: Lactobacillis Acidophilus 1 CAP PO (22:16)
[2024-07-12] MEDS: Atorvastatin Calcium 20 MG Tablet PO (22:17)
[2024-07-12] MEDS: Cilostazol 50 MG Tablet PO (22:19)
[2024-07-12] MEDS: Mirtazapine 15 MG Tablet 7.5 MG PO (22:20)
[2024-07-13 03:28] VITALS: BP 112/54; PULSE 64; RESP 18; TEMP 37; O2SAT 97
[2024-07-13] MEDS: Hydrocortisone Sod Succinate 100 MG/2 ML Vial 50 MG IV ×3 (06:02→17:51)
[2024-07-13] MEDS: 0.9% Saline Lock 10 ML Syringe IV (06:03)
[2024-07-13] MEDS: Piperacil/Tazobactam 3.375 GM in 0.9% Normal Saline (50mL MB+) 50 ML IV ×3 (06:03→22:34)
[2024-07-13] MEDS: Levothyroxine 25 MCG TABLET 12.5 MCG PO (06:11)
[2024-07-13] MEDS: Acetaminophen 500 MG Tablet 1000 MG PO ×3 (06:11→22:35)
[2024-07-13] MEDS: Sucralfate 1 GM Tablet PO ×2 (06:12→22:35)
[2024-07-13] MEDS: Acyclovir 800 MG Tablet PO (06:12)
[2024-07-13 06:47] LABS: Absolute Lymphocyte Count 0.56 X10^3/uL (0.83-4.51); Absolute Neutrophil Count 4.9 X10^3/uL (2.0-7.7); Basophil# 0.01 X10^3/uL; Basophil% 0.2 % (0-1); Lymphocyte # 0.56 X10^3/ul (0.83-4.51); Lymphocyte % 9.1 % (19-41); Mean Corp Hgb Conc 32.3 g/dL (32-36); Mean Corpuscular Hgb 31.3 pg (27.0-32.0); Mean Corpuscular Volume 97.2 fL (80-94); Mean Platelet Vol. 9.9 fl (6.2-12.0); Monocyte# 0.64 X10^3/uL; Monocyte% 10.4 % (0-10); NRBC Flagged by Analyzer 0.5 % (0-5); Neutrophil # 4.89 X10^3/uL (2.7-7.7); Neutrophil % 79.6 % (47-70); POSITIVE DIFFERENTIAL YES; Platelet Count 191 K/mm3 (150-450); RBC Distribution Width CV 13.8 % (11.6-14.6); RBC Distribution Width SD 49.4 fl (35.1-43.9); Red Blood Count 3.19 M/mm3 (4.6-6.2); White Blood Count 6.1 K/mm3 (4.4-11.0)
[2024-07-13 07:06] LABS: Anion Gap 5 (5-15); BUN 25 mg/dL (7-18); BUN/Creat Ratio 33.2 RATIO (10-20); Calcium,Total 8.4 mg/dL (8.5-10.1); Chloride 105 mmol/L (98-107); Creatinine, Serum 0.75 mg/dL (0.70-1.30); EST Glomerular Filtration Rate 105 mL/min (>60); Est Glom Filt Rate - Afr Amer 127 mL/min (>60); Estimated Creatinine Clearance 70.97 ml/min; Glucose 103 mg/dL (74-106); Potassium 3.8 mmol/L (3.5-5.1); Sodium Level 138 mmol/L (136-145)
--- NOTE | 2024-07-13 07:32 | PN.HOSP_ITS ---
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 Objective Data Objective Data Vital Signs: Vital Signs Temp Pulse Resp BP Pulse Ox O2 Del Method O2 Flow Rate 37.0 C 64 18 112/54 L 97 Nasal Cannula 2 07/13/24 03:28 07/13/24 03:28 07/13/24 03:28 07/13/24 03:28 07/13/24 03:28 07/13/24 03:28 07/13/24 03:28 Oxygen Flow Rate (L/min) 2 Oxygen Delivery Method Nasal Cannula Weight: 74.2 kg Body Mass Index (BMI) 23.4 Intake & Output: Intake and Output for Last 24 Hours 07/11/24 07/12/24 07/13/24 23:59 23:59 23:59 Intake Total 1050 / 1170 1520 / 1520 1150 / 1150 Output Total 1175 / 1175 350 / 350 Balance 1050 / 970 345 / 345 800 / 800 Medical Nutrition Assessment Dietitian: Malnutrition Criteria Met Start: 07/12/24 13:33 Freq: Status: Active Protocol: Document 07/12/24 13:35 RMA (Rec: 07/12/24 13:35 RMA [id number]) Nutrition Malnutrition Evidence of Malnutrition Exists Yes Malnutrition (severe): Chronic Evidenced By Suboptimal Energy Intake ( Severe),Weight Loss (Severe) Intake Problem Increased Nutrient Needs (specify) Etiology for protein related to skin/ wound healing Signs/Symptoms as evidenced by multiple site wounds Status Active Problem Clinical Problem Chronic Disease or Condition Related Malnutrition Etiology severe protein-calorie malnutrition in the context of chronic disease related to inadequate oral intake and increased energy expenditure Signs/Symptoms as evidenced by ~12% unintentional weight loss x 6 months, BMI 23.5, PO meeting less than 50% estimated nutrition needs x 3-6 months and Po meeting less than 75% estimated nutrition needs x 6- 12 months Status Active Problem Recommendation Dietitian Recommendations/Changes Will liberalize diet to regular and encourage improved PO at meals. Consider SECURITIES SALES ASSOCIATE swallowing evaluation given reported swallowing difficulty. Will d/c ensure plus HP with medpass and add 240mL ensure plus HP w/ breakfast and magic cup with lunch and dinner. Will add Boaz BID to support wound healing. Adjust ONS as needed to optimize PO as tolerated. May need to consider enteral nutrition support if PO remains poor and inadequate and/or weight continues to decline. Lab / Micro Data 07/13/24 06:29 07/13/24 06:29 Labs: Laboratory Results - last 24 hr 07/12/24 03:48: ESR 11, C-React Prot Ext Range 44.60 H 07/12/24 15:22: Ammonia 26.0 07/13/24 06:29: WBC 6.1, RBC 3.19 L, Hgb 10.0 L, Hct 31.0 L, MCV 97.2 H, MCH 31.3, MCHC 32.3, RDW Std Deviation 49.4 H, RDW Coeff of Marion 13.8, Plt Count 191, MPV 9.9, Immature Gran % (Auto) 0.700, Neut % (Auto) 79.6 H, Lymph % (Auto) 9.1 L, Millard % (Auto) 10.4 H, Eos % (Auto) 0.0, Baso % (Auto) 0.2, Absolute Neuts (auto) 4.9, Absolute Lymphs (auto) 0.56 L, Nucleated RBC % 0.5, Sodium 138, Potassium 3.8, Chloride 105, Carbon Dioxide 28.0, Anion Gap 5, BUN 25 H, Creatinine 0.75, Estim Creat Clear Calc 70.97, Est GFR (MDRD) Af Amer 127, Est GFR (MDRD) Non-Af 105, BUN/Creatinine Ratio 33.2 H, Glucose 103, Calcium 8.4 L Radiography Diagnostic Testing: Radiology Impression Foot X-Ray 07/12/24 11:58 IMPRESSION: There are no acute findings of the foot. Electronically Signed: Guanakito Crystal MD at 15:09 EST , Physical Exam Narrative no reproducible left sided chest pain. Const alert and no apparent distress HEENT head/scalp atraumatic and moist oral mucous membranes Resp normal respiratory effort, no retractions, no use of accessory muscles and clear to auscultation bilaterally Cardio regular rate, regular rhythm, S1 normal heart sound and S2 normal heart sound GI normal to inspection, nondistended, normoactive bowel sounds, soft to palpation, non-tender and non-distended Extremity Extremity Narrative: right foot wrapped--did not remove. 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 Left-sided thoracic pain that wraps to the left chest area * No rash at this time. Not sensitive at this time. Reviewed imaging, no obvious vertebral fracture. * No clear evidence of shingles. Will continue acyclovir for now. * Will start acyclovir 800 mg 5 times daily for 7 days * Hold pregabalin given encephalopathy Encephalopathy * Improved. Suspect metabolic. 2/2 cellulitis, sepsis, acute adrenal crisis. * Had hydromorphone, pregabalin ordered. Those have been held. Did receive a pregabalin on 07/11. Sepsis: * developed during admission. Developed 07/11 with ongoing hypotension the following day. Did not receive 30cc/kg of IVF. Held due to developing anasarca and pleural effusion. Concerning for developing worsening respiratory status due to CHF. * Complicated by what appears to be adrenal crisis. Which appears improved by stress-dose steroids. * UA unremarkable. Check blood cultures. Adrenal crisis * 2/2 to infection and his long-term prednisone. Start stress-dose steroid. * Will give additional IVF. 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 العراقي--> plan is for tamoxifen 100 mg daily for 4 weeks then reassess * Per documentation not a candidate for chemotherapy or monoclonal therapy against HER2 * Patient agreeable to palliative care consult, to likely take place as outpt. Generalized weakness * Patient is nonambulatory at baseline * Is receiving PT and OT so we will continue Chronic conditions: * Paroxysmal atrial fibrillation -patient is not anticoagulated-Not on any rate controlling medication-Currently in sinus rhythm * History of C. difficile colitis-Will utilize lactobacillus to help avoid C. 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 DVT prophylaxis -Lovenox subcu daily CODE STATUS -DNR CCA with no intubation Charges/Coding Visit Charges Inpatient E&M: 955[address] [facility] L3
[2024-07-13] MEDS: 0.9% Normal Saline (1000mL) 1,000 ML 150 ML IV (09:23)
[2024-07-13 09:25] VITALS: BP 125/64; PULSE 75; RESP 18; TEMP 37; O2SAT 96
[2024-07-13] MEDS: Mineral Oil/Petrolatum Cr 1.75oz Bottle 1 APPLIC TOPICAL ×2 (09:26→22:31)
[2024-07-13] MEDS: Enoxaparin 40 MG/0.4 ML Syringe SC (09:28)
[2024-07-13] MEDS: Midodrine HCl 5 MG Tablet PO ×3 (09:28→17:52)
[2024-07-13] MEDS: Lactobacillis Acidophilus 1 CAP PO ×4 (09:29→22:35)
[2024-07-13] MEDS: Mupirocin Ointment 22gm Tube 1 APPLIC TOPICAL (09:29)
[2024-07-13] MEDS: Citalopram 10 MG Tablet PO (09:30)
[2024-07-13] MEDS: Hydrocortisone 2.5% Crm 1 APPLIC TOPICAL ×2 (09:32→22:33)
[2024-07-13] MEDS: Cilostazol 50 MG Tablet PO ×2 (09:33→22:36)
[2024-07-13] MEDS: Finasteride 5 MG Tablet PO (09:33)
[2024-07-13] MEDS: Cyanocobalamin 500 MCG Tablet 1000 MCG PO (09:34)
[2024-07-13] MEDS: Pantoprazole Sodium 40 MG Tablet PO (09:34)
[2024-07-13 10:11] VITALS: BMI 23.1
--- NOTE | 2024-07-13 10:31 | CASEMGMT ---
Social Work SW met w/pt and his daughter Arti who is in the room in regard to discharge plan. Pt is here from [place], he just went back from the skilled side about 10 days ago, as per daughter. They had set up for therapy to work with [place] in the [place]. Pt and daughter are open to pt returning to the [place] or going skilled should that be needed. SNF list is not needed at this time, as pt would want [place] for skilled should it be warranted. KRISTAL explained we will send updates to [place] and see what they say, if SNF is needed or if pt can return to [place] at discharge. Pt and daughter state understanding. D/C city planning aide Violeta will send updates to [facility] and inquire if pt can return to [place] or if he would need to return skilled. KRISTAL will continue to follow. AZAEL Sood
--- NOTE | 2024-07-13 10:36 | CASEMGMT ---
Addendum entered by Violeta Dangelo 07/13/24 12:16: [facility] has accepted pt. Pt has skilled days remaining. SW updated. Violeta Dangelo DC Planning Asst. Original Note: Updates sent via [facility] to [facility]. Note sent asking if pt can be skilled and if he requires another qualifying stay. Awaiting response. Violeta Dangelo DC Planning Asst.
[2024-07-13] MEDS: Ferrous Sulfate 325 MG Tablet PO (12:45)
[2024-07-13] MEDS: Ascorbic Acid 500 MG Tablet PO (12:48)
--- NOTE | 2024-07-13 14:06 | CASEMGMT ---
Social Work [place] is planning to bring pt back skilled again, before returning to the [place]. KRISTAL let pt know, he is agreeable. KRISTAL also called daughter Arti and let her know, she is agreeable for pt to return to [place], skilled when ready. KRISTAL will continue to follow. AZAEL Sood
[2024-07-13 17:00] VITALS: BP 117/77; PULSE 79; RESP 16; TEMP 36.8; O2SAT 96
[2024-07-13] MEDS: Ensure Plus High Protein 120 ML LIQUID PO (17:51)
--- NOTE | 2024-07-13 17:55 | NURSING ---
Pt attempting to have a BM on the BSC at this time. Pt states, It feels like I have to go and can't. This RN offered Mr. Cruz some stool softners that are on his EMAR for prn. Pt refused. the last time I took those I couldn't stop going.
[2024-07-13 22:21] VITALS: BP 134/63; PULSE 70; RESP 16; TEMP 37.2; O2SAT 96
[2024-07-13] MEDS: Ammonium Lactate 225 gm Bottle 1 APPLIC TOPICAL (22:34)
[2024-07-13] MEDS: Atorvastatin Calcium 20 MG Tablet PO (22:36)
[2024-07-13] MEDS: Mirtazapine 15 MG Tablet 7.5 MG PO (22:37)
[2024-07-13] MEDS: Menthol/Lanolin/Calamine/Znox 113 GM Tube 1 APPLIC TOPICAL (22:42)
[2024-07-14] VITALS (8 sets, daily range): BP systolic 78–131; BP diastolic 40–90; PULSE 43–87; RESP 15–20; TEMP 36.4–37.1; O2SAT 86–97; BMI 23.3
[2024-07-14] MEDS: Hydrocortisone Sod Succinate 100 MG/2 ML Vial 50 MG IV ×5 (00:16→23:36)
[2024-07-14] MEDS: Piperacil/Tazobactam 3.375 GM in 0.9% Normal Saline (50mL MB+) 50 ML IV ×3 (06:18→23:44)
[2024-07-14] MEDS: 0.9% Saline Lock 10 ML Syringe IV ×4 (06:29→23:36)
[2024-07-14] MEDS: Levothyroxine 25 MCG TABLET 12.5 MCG PO (06:30)
[2024-07-14] MEDS: Sucralfate 1 GM Tablet PO ×4 (06:31→20:47)
[2024-07-14] MEDS: Acetaminophen 500 MG Tablet 1000 MG PO ×3 (06:31→20:47)
[2024-07-14 07:01] LABS: Absolute Lymphocyte Count 0.68 X10^3/uL (0.83-4.51); Absolute Neutrophil Count 7.8 X10^3/uL (2.0-7.7); Basophil# 0.01 X10^3/uL; Basophil% 0.1 % (0-1); Eosinophil# 0.11 X10^3/uL; Eosinophils% 1.1 % (0-5); Hematocrit 32.1 % (40-54); Hemoglobin 10.5 g/dL (13.0-16.5); Lymphocyte # 0.68 X10^3/ul (0.83-4.51); Lymphocyte % 6.8 % (19-41); Mean Corp Hgb Conc 32.7 g/dL (32-36); Mean Corpuscular Hgb 32.1 pg (27.0-32.0); Mean Corpuscular Volume 98.2 fL (80-94); Mean Platelet Vol. 10.2 fl (6.2-12.0); Monocyte# 1.23 X10^3/uL; Monocyte% 12.4 % (0-10); NRBC Flagged by Analyzer 0 % (0-5); Neutrophil # 7.84 X10^3/uL (2.7-7.7); POSITIVE MORPHOLOGY YES; Platelet Count 226 K/mm3 (150-450); RBC Distribution Width CV 13.7 % (11.6-14.6); RBC Distribution Width SD 48.9 fl (35.1-43.9); Red Blood Count 3.27 M/mm3 (4.6-6.2); White Blood Count 9.9 K/mm3 (4.4-11.0)
--- NOTE | 2024-07-14 07:15 | PCM.PN.HOSP ---
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 Wants the chaparro catheter out. Complaining of leg spasms and requesting his tizanadine ordered. Objective Data Objective Data Vital Signs: Vital Signs Temp Pulse Resp BP Pulse Ox O2 Del Method O2 Flow Rate 37.0 C 77 16 119/86 H 97 Room Air 2 07/14/24 03:18 07/14/24 03:18 07/14/24 03:18 07/14/24 03:18 07/14/24 03:18 07/14/24 03:18 07/13/24 03:28 Oxygen Flow Rate (L/min) 2 Oxygen Delivery Method Room Air Weight: 73.8 kg Body Mass Index (BMI) 23.3 Intake & Output: Intake and Output for Last 24 Hours 07/12/24 07/13/24 07/14/24 23:59 23:59 23:59 Intake Total 1520 / 1520 3000 / 3000 300 / 300 Output Total 1175 / 1175 800 / 1150 350 / 350 Balance 345 / 345 2200 / 1850 -50 / -50 Medical Nutrition Assessment Dietitian: Malnutrition Criteria Met Start: 07/12/24 13:33 Freq: Status: Active Protocol: Document 07/12/24 13:35 RMA (Rec: 07/12/24 13:35 RMA [id number]) Nutrition Malnutrition Evidence of Malnutrition Exists Yes Malnutrition (severe): Chronic Evidenced By Suboptimal Energy Intake ( Severe),Weight Loss (Severe) Intake Problem Increased Nutrient Needs (specify) Etiology for protein related to skin/ wound healing Signs/Symptoms as evidenced by multiple site wounds Status Active Problem Clinical Problem Chronic Disease or Condition Related Malnutrition Etiology severe protein-calorie malnutrition in the context of chronic disease related to inadequate oral intake and increased energy expenditure Signs/Symptoms as evidenced by ~12% unintentional weight loss x 6 months, BMI 23.5, PO meeting less than 50% estimated nutrition needs x 3-6 months and Po meeting less than 75% estimated nutrition needs x 6- 12 months Status Active Problem Recommendation Dietitian Recommendations/Changes Will liberalize diet to regular and encourage improved PO at meals. Consider MANAGER EQUITY swallowing evaluation given reported swallowing difficulty. Will d/c ensure plus HP with medpass and add 240mL ensure plus HP w/ breakfast and magic cup with lunch and dinner. Will add Boaz BID to support wound healing. Adjust ONS as needed to optimize PO as tolerated. May need to consider enteral nutrition support if PO remains poor and inadequate and/or weight continues to decline. Lab / Micro Data 07/14/24 06:07 07/14/24 06:07 Physical Exam Const alert, oriented x3 and no apparent distress HEENT head/scalp atraumatic and moist oral mucous membranes Resp normal respiratory effort and no retractions Cardio regular rate, regular rhythm, S1 normal heart sound and S2 normal heart sound GI normal to inspection, nondistended, normoactive bowel sounds, soft to palpation, non-tender and non-distended Assessment & Plan Assessment/Plan (1) Acute chest wall pain: (2) Intractable back pain: (3) Cellulitis of foot, right: (4) Breast cancer in male: QUALIFIERS: Breast location: combined nipple and areola Estrogen receptor status: positive Laterality: right Qualified Code(s): C50.021 - Malignant neoplasm of nipple and areola, 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 Left-sided thoracic pain that wraps to the left chest area No rash at this time. Not sensitive at this time. Reviewed imaging, no obvious vertebral fracture. DC'd acyclovir as no clear evidence of Shingles. Hold pregabalin given encephalopathy Encephalopathy Improved. Suspect metabolic. 2/2 cellulitis, sepsis, acute adrenal crisis. Had hydromorphone, pregabalin ordered. Those have been held. Did receive a pregabalin on 07/11. Sepsis: developed during admission. Developed 07/11 with ongoing hypotension the following day. Did not receive 30cc/kg of IVF. Held due to developing anasarca and pleural effusion. Concerning for developing worsening respiratory status due to CHF. Complicated by what appears to be adrenal crisis. Which appears improved by stress-dose steroids. UA unremarkable. Check blood cultures. Adrenal crisis Improved BP. 2/2 to infection and his long-term prednisone. Started stress-dose steroid. 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 العراقي--> plan is for tamoxifen 100 mg daily for 4 weeks then reassess Per documentation not a candidate for chemotherapy or monoclonal therapy against HER2 Patient agreeable to palliative care consult, to likely take place as outpt. Generalized weakness Patient is nonambulatory at baseline Is receiving PT and OT so we will continue Chronic conditions: Paroxysmal atrial fibrillation -patient is not anticoagulated-Not on any rate controlling medication-Currently in sinus rhythm History of C. difficile colitis-Will utilize lactobacillus to help avoid C. 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 DVT prophylaxis -Lovenox subcu daily CODE STATUS -DNR CCA with no intubation Charges/Coding Visit Charges Inpatient E&M: 15770 [facility] L2
[2024-07-14 07:17] LABS: Bedside Glucose 106 mg/dL (74-106)
[2024-07-14 07:30] LABS: Anion Gap 3 (5-15); BUN 27 mg/dL (7-18); BUN/Creat Ratio 38.4 RATIO (10-20); Calcium,Total 8.7 mg/dL (8.5-10.1); Chloride 107 mmol/L (98-107); EST Glomerular Filtration Rate 114 mL/min (>60); Est Glom Filt Rate - Afr Amer 138 mL/min (>60); Estimated Creatinine Clearance 70.97 ml/min; Glucose 100 mg/dL (74-106); Potassium 3.4 mmol/L (3.5-5.1); Sodium Level 141 mmol/L (136-145)
[2024-07-14] MEDS: Midodrine HCl 5 MG Tablet PO ×3 (08:22→17:51)
[2024-07-14 08:30] LABS: Differential Indicated SCAN CRITERIA MET
--- NOTE | 2024-07-14 11:03 | WOUNDNOTE ---
wound photo: right foot
--- NOTE | 2024-07-14 11:03 | WOUNDNOTE ---
wound photo: left Achilles area/heel
[2024-07-14] MEDS: Lactobacillis Acidophilus 1 CAP PO ×4 (11:08→20:49)
[2024-07-14] MEDS: Menthol/Lanolin/Calamine/Znox 113 GM Tube 1 APPLIC TOPICAL ×4 (11:09→21:01)
[2024-07-14] MEDS: Citalopram 10 MG Tablet PO (11:09)
[2024-07-14] MEDS: Enoxaparin 40 MG/0.4 ML Syringe SC (11:09)
[2024-07-14] MEDS: Pantoprazole Sodium 40 MG Tablet PO (11:10)
[2024-07-14] MEDS: Cyanocobalamin 500 MCG Tablet 1000 MCG PO (11:10)
[2024-07-14] MEDS: Finasteride 5 MG Tablet PO (11:10)
[2024-07-14] MEDS: Cilostazol 50 MG Tablet PO ×2 (11:10→20:48)
[2024-07-14] MEDS: tiZANidine HCl 2 MG Tablet PO (11:11)
[2024-07-14] MEDS: Ferrous Sulfate 325 MG Tablet PO (13:12)
[2024-07-14] MEDS: Ascorbic Acid 500 MG Tablet PO (13:12)
--- NOTE | 2024-07-14 14:39 | CASEMGMT ---
Social Work- SW coordinated with RNCM who reports that palliative referral completed yesterday. Palliative to follow up following d/c. Plan: [facility]; skilled level of care DEYSI Mac
--- NOTE | 2024-07-14 14:52 | CHAPLAIN ---
Type of Pastoral Visit _x__ Initial Visit ___ Follow-up Visit ___ On-call Visit ___ General Patient Visit ___ Spiritual Assessment ___ Family Conference ___ Bereavement ___ Rapid Response ___ Code Blue ___ Other (describe below) Pastoral Care Referral From _x__ Patient ___ Family ___ Nurse ___ Physician ___ Hoist Operator ___ Mechanical Pencils Assembler ___ Other (describe below) Sacrament/Intervention _x__ Active listening ___ Anointing ___ Caodaism ___ Bereavement ___ Communion ___ Pooja exploration ___ ___ Life review _x__ Prayer ___ Reconciliation ___ Sacrament of Sick _x__ Supportive presence ___ Wedding ___ Other (describe below) Pastoral Comments after having been a patient here often this patient and this dumpling machine operator are on a casual first name basis it seems; pt is welcoming and explains his situation with a new diagnosis that he was not expecting; asked questions of pt to clarify his thoughts and to express his concerns and feelings; pt is trying to process this new information he said and yet realizes that this could be his end of the journey; gave presence, time to reflect, and prayer; gave offer of future visits and times to talk and receive support
--- NOTE | 2024-07-14 15:39 | CASEMGMT ---
[facility] notified of possible after-hours discharge. Report phone/fax received, green sheet and transport forms placed on chart. Violeta Dangelo DC Planning Asst
[2024-07-14] MEDS: Gabapentin 100 MG Capsule PO (17:51)
[2024-07-14] MEDS: Atorvastatin Calcium 20 MG Tablet PO (20:46)
[2024-07-14] MEDS: Mirtazapine 15 MG Tablet 7.5 MG PO (20:47)
[2024-07-14] MEDS: Ammonium Lactate 225 gm Bottle 1 APPLIC TOPICAL (23:43)
[2024-07-15 02:27] VITALS: BP 126/63; PULSE 65; RESP 16; TEMP 37.1; O2SAT 98
[2024-07-15 05:35] LABS: Absolute Lymphocyte Count 0.45 X10^3/uL (0.83-4.51); Absolute Neutrophil Count 7.4 X10^3/uL (2.0-7.7); Hemoglobin 9.4 g/dL (13.0-16.5); Lymphocyte # 0.45 X10^3/ul (0.83-4.51); Lymphocyte % 5.1 % (19-41); Mean Corp Hgb Conc 32.4 g/dL (32-36); Mean Corpuscular Hgb 31.2 pg (27.0-32.0); Mean Corpuscular Volume 96.3 fL (80-94); Mean Platelet Vol. 9.9 fl (6.2-12.0); Monocyte% 10.2 % (0-10); NRBC Flagged by Analyzer 0 % (0-5); Neutrophil # 7.38 X10^3/uL (2.7-7.7); Neutrophil % 83.9 % (47-70); POSITIVE DIFFERENTIAL YES; Platelet Count 208 K/mm3 (150-450); RBC Distribution Width CV 13.6 % (11.6-14.6); RBC Distribution Width SD 47.7 fl (35.1-43.9); Red Blood Count 3.01 M/mm3 (4.6-6.2); White Blood Count 8.8 K/mm3 (4.4-11.0)
[2024-07-15 05:39] VITALS: BMI 33.6
[2024-07-15 05:54] LABS: Anion Gap 3 (5-15); BUN 21 mg/dL (7-18); BUN/Creat Ratio 33.2 RATIO (10-20); Calcium,Total 8.3 mg/dL (8.5-10.1); Chloride 107 mmol/L (98-107); Creatinine, Serum 0.63 mg/dL (0.70-1.30); EST Glomerular Filtration Rate 128 mL/min (>60); Est Glom Filt Rate - Afr Amer 155 mL/min (>60); Glucose 123 mg/dL (74-106); Potassium 3.5 mmol/L (3.5-5.1); Sodium Level 140 mmol/L (136-145)
[2024-07-15] MEDS: Hydrocortisone Sod Succinate 100 MG/2 ML Vial 50 MG IV (06:07)
[2024-07-15] MEDS: Acetaminophen 500 MG Tablet 1000 MG PO ×2 (06:08→13:21)
[2024-07-15] MEDS: Levothyroxine 25 MCG TABLET 12.5 MCG PO (06:08)
[2024-07-15] MEDS: Piperacil/Tazobactam 3.375 GM in 0.9% Normal Saline (50mL MB+) 50 ML IV ×2 (06:09→13:25)
[2024-07-15] MEDS: Sucralfate 1 GM Tablet PO ×3 (06:10→17:08)
[2024-07-15 07:01] VITALS: O2SAT 93
--- NOTE | 2024-07-15 07:24 | PCM.PN.HOSP ---
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 No new complaints. Objective Data Objective Data Vital Signs: Vital Signs Temp Pulse Resp BP Pulse Ox O2 Del Method O2 Flow Rate 37.1 C 65 16 126/63 H 98 Nasal Cannula 3 07/15/24 02:27 07/15/24 02:27 07/15/24 02:27 07/15/24 02:27 07/15/24 02:27 07/15/24 02:27 07/15/24 02:27 Oxygen Flow Rate (L/min) 3 Oxygen Delivery Method Nasal Cannula Weight: 106.5 kg Body Mass Index (BMI) 33.6 Intake & Output: Intake and Output for Last 24 Hours 07/13/24 07/14/24 07/15/24 23:59 23:59 23:59 Intake Total 3000 / 3000 400 / 550 200 / 200 Output Total 800 / 1150 875 / 1175 300 / 300 Balance 2200 / 1850 -475 / -625 -100 / -100 Medical Nutrition Assessment Dietitian: Malnutrition Criteria Met Start: 07/12/24 13:33 Freq: Status: Active Protocol: Document 07/12/24 13:35 RMA (Rec: 07/12/24 13:35 RMA [id number]) Nutrition Malnutrition Evidence of Malnutrition Exists Yes Malnutrition (severe): Chronic Evidenced By Suboptimal Energy Intake ( Severe),Weight Loss (Severe) Intake Problem Increased Nutrient Needs (specify) Etiology for protein related to skin/ wound healing Signs/Symptoms as evidenced by multiple site wounds Status Active Problem Clinical Problem Chronic Disease or Condition Related Malnutrition Etiology severe protein-calorie malnutrition in the context of chronic disease related to inadequate oral intake and increased energy expenditure Signs/Symptoms as evidenced by ~12% unintentional weight loss x 6 months, BMI 23.5, PO meeting less than 50% estimated nutrition needs x 3-6 months and Po meeting less than 75% estimated nutrition needs x 6- 12 months Status Active Problem Recommendation Dietitian Recommendations/Changes Will liberalize diet to regular and encourage improved PO at meals. Consider COUNTY [employer]GE swallowing evaluation given reported swallowing difficulty. Will d/c ensure plus HP with medpass and add 240mL ensure plus HP w/ breakfast and magic cup with lunch and dinner. Will add Boaz BID to support wound healing. Adjust ONS as needed to optimize PO as tolerated. May need to consider enteral nutrition support if PO remains poor and inadequate and/or weight continues to decline. Lab / Micro Data 07/15/24 05:18 07/15/24 05:18 Labs: Laboratory Results - last 24 hr 07/14/24 06:07: WBC 9.9, RBC 3.27 L, Hgb 10.5 L, Hct 32.1 L, MCV 98.2 H, MCH 32.1 H, MCHC 32.7, RDW Std Deviation 48.9 H, RDW Coeff of [place] 13.7, Plt Count 226, MPV 10.2, Immature Gran % (Auto) 0.600, Neut % (Auto) 79.0 H, Lymph % (Auto) 6.8 L, [place] % (Auto) 12.4 H, Eos % (Auto) 1.1, Baso % (Auto) 0.1, Absolute Neuts (auto) 7.8 H, Absolute Lymphs (auto) 0.68 L, Nucleated RBC % 0, Sodium 141, Potassium 3.4 L, Chloride 107, Carbon Dioxide 31.0, Anion Gap 3 L, BUN 27 H, Creatinine 0.70, Estim Creat Clear Calc 70.97, Est GFR (MDRD) Af Amer 138, Est GFR (MDRD) Non-Af 114, BUN/Creatinine Ratio 38.4 H, Glucose 100, Calcium 8.7 Physical Exam Const alert and no apparent distress HEENT head/scalp atraumatic and moist oral mucous membranes Resp normal respiratory effort, no retractions, no use of accessory muscles and clear to auscultation bilaterally Cardio regular rate and regular rhythm Extremity Extremity Narrative: right 3rd toe with sutures in placed. erythema resolved. 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 DC with Augmentin Left-sided thoracic pain that wraps to the left chest area No rash at this time. Not sensitive at this time. Reviewed imaging, no obvious vertebral fracture. DC'd acyclovir as there is no evidence of Shingles. May have been due to costochrondritis. Encephalopathy Improved. Suspect metabolic. 2/2 cellulitis, sepsis, acute adrenal crisis. Had hydromorphone, pregabalin ordered. Those have been held. Did receive a pregabalin on 07/11. Sepsis: developed during admission. Developed 07/11 with ongoing hypotension the following day. Did not receive 30cc/kg of IVF. Held due to developing anasarca and pleural effusion. Concerning for developing worsening respiratory status due to CHF. Complicated by what appears to be adrenal crisis. Which appears improved by stress-dose steroids. UA unremarkable. Blood culture so far negative. Adrenal crisis Improved BP. 2/2 to infection and his long-term prednisone. Started stress-dose steroid. Will start to taper down to home dose. 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 العراقي--> plan is for tamoxifen 100 mg daily for 4 weeks then reassess Per documentation not a candidate for chemotherapy or monoclonal therapy against HER2 Patient agreeable to palliative care consult, to likely take place as outpt. Generalized weakness Patient is nonambulatory at baseline Is receiving PT and OT so we will continue Chronic conditions: Paroxysmal atrial fibrillation -patient is not anticoagulated-Not on any rate controlling medication-Currently in sinus rhythm History of C. difficile colitis-Will utilize lactobacillus to help avoid C. 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 CODE STATUS-DNR CCA with no intubation DC to [facility] in stable condition. DW patient's dtr at bedside.
[2024-07-15 07:25] VITALS: BP 116/63; PULSE 60; RESP 16; TEMP 36.6
[2024-07-15] MEDS: Midodrine HCl 5 MG Tablet PO ×3 (08:21→17:07)
[2024-07-15] MEDS: predniSONE 20 MG Tablet 40 MG PO (08:24)
[2024-07-15] MEDS: Gabapentin 100 MG Capsule PO ×2 (08:26→17:10)
[2024-07-15] MEDS: Finasteride 5 MG Tablet PO (10:35)
[2024-07-15] MEDS: Cilostazol 50 MG Tablet PO (10:37)
[2024-07-15] MEDS: Lactobacillis Acidophilus 1 CAP PO ×3 (10:37→17:07)
[2024-07-15] MEDS: Pantoprazole Sodium 40 MG Tablet PO (10:38)
[2024-07-15] MEDS: Cyanocobalamin 500 MCG Tablet 1000 MCG PO (10:39)
[2024-07-15] MEDS: Citalopram 10 MG Tablet PO (10:40)
[2024-07-15] MEDS: Enoxaparin 40 MG/0.4 ML Syringe SC (10:46)
[2024-07-15] MEDS: Menthol/Lanolin/Calamine/Znox 113 GM Tube 1 APPLIC TOPICAL ×2 (10:58→13:22)
[2024-07-15] MEDS: Hydrocortisone 2.5% Crm 1 APPLIC TOPICAL (11:00)
--- NOTE | 2024-07-15 12:52 | TREXTCAR_ITS ---
Diet Diet Order/Speech Therapy: 07/12/24 13:34 Diet: Regular - General Food consistency:: Regular Liquid Consistency:: Regular/Thin Type of Dietary Supplement:: Magic Cup Dessert Diet Comments: magic cup with lunch and dinner DC O2, CPAP, BIPAP needs Home O2 Discharge instructions: No Wound(s) Rt elbow: Wound Type: Abrasion Lt elbow: Wound Type: Skin Tear Bilat. hands: Wound Type: eczema, cracked skin Rt knee: Wound Type: Abrasion Rt 3rd toe: Wound Type: Surgical Incision Rt foot: Wound Type: stiches Lt calf: Wound Type: Pressure Injury left Achilles area: Wound Type: nonhealing wound Dressing Change: AntiMicrobial (Aquacel AG, etc) left heel: Wound Type: Pressure Injury Dressing Change: dry, well padded dressing right 3rd toe: Wound Type: Neuropathic/Diabetic Foot Ulcer Dressing Change: betadine with dry dressing left buttock: Wound Type: Skin Tear Right nipple: Wound Type: old biopsy site Problem/Diagnosis (1) Acute chest wall pain: Status: Acute Code(s): R07.89 - Other chest pain (2) Intractable back pain: Status: Acute Code(s): M54.9 - Dorsalgia, unspecified (3) Cellulitis of foot, right: Status: Acute Code(s): L03.115 - Cellulitis of right lower limb (4) Breast cancer in male: Status: Acute Code(s): C50.929 - Malignant neoplasm of unspecified site of unspecified male breast Comment: Locally advanced disease with skin ulceration and R axillary node, ER/IN/Her2 Positive. Echocardiogram EF 55%. PET/CT 06/30/2024 reviewed, shows hypermetabolic activity in right breast, bilateral axillary lesions, bilateral hemipelvic suggestive of metastatic involvement. Discussed disease status, stage IV(cT2 cN3 M1) multiple distant nodes, treatment with Hormonal therapy, chemotherapy which I think he is not a candidate for, Monoclonal therapy against Her2 which is approved for first line therapy unless it is done with chemotherapy. 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 * DC with Augmentin Left-sided thoracic pain that wraps to the left chest area * No rash at this time. Not sensitive at this time. Reviewed imaging, no obvious vertebral fracture. * DC'd acyclovir as there is no evidence of Shingles. * May have been due to costochrondritis. Encephalopathy * Improved. Suspect metabolic. 2/2 cellulitis, sepsis, acute adrenal crisis. * Had hydromorphone, pregabalin ordered. Those have been held. Did receive a pregabalin on 07/11. Sepsis: * developed during admission. Developed 07/11 with ongoing hypotension the following day. Did not receive 30cc/kg of IVF. Held due to developing anasarca and pleural effusion. Concerning for developing worsening respiratory status due to CHF. * Complicated by what appears to be adrenal crisis. Which appears improved by stress-dose steroids. * UA unremarkable. Blood culture so far negative. Adrenal crisis * Improved BP. * 2/2 to infection and his long-term prednisone. Started stress-dose steroid. Will start to taper down to home dose. 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 العراقي--> plan is for tamoxifen 100 mg daily for 4 weeks then reassess * Per documentation not a candidate for chemotherapy or monoclonal therapy against HER2 * Patient agreeable to palliative care consult, to likely take place as outpt. Generalized weakness * Patient is nonambulatory at baseline * Is receiving PT and OT so we will continue Chronic conditions: * Paroxysmal atrial fibrillation -patient is not anticoagulated-Not on any rate controlling medication-Currently in sinus rhythm * History of C. difficile colitis-Will utilize lactobacillus to help avoid C. 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 CODE STATUS-DNR CCA with no intubation DC to [facility] in stable condition. DW patient's dtr at bedside. Allergies/Procedures Done in Hospital Allergies morphine Adverse Reaction (Intermediate, Verified 07/11/24 12:08) Other Per daughter pt became confused and saying off the wall stuff. Took days to go back to normal Type of Care/Length of Stay Estimated LOS: Convalescent Care Less Than 30 days Type of Care Needed: Skilled Rehab Potential: Good Prognosis: Good Additional Orders/Day of Discharge Day of Discharge: 07/15/24 Dietary and Speech Recommendations Dietitian Recommendations/Changes: Will continue liberalize regular diet and encourage improved PO at meals. Consider HAND TUFTER swallowing evaluation given reported swallowing difficulty. Will d/c 240mL ensure plus HP with breakfast and continue magic cup with lunch and dinner. Will continue 120mL ensure plus HP w/ medpass 3 times per day as pt willing. Will continue Boaz BID to support wound healing. Adjust ONS as needed to optimize PO as tolerated. May need to consider enteral nutrition support if PO remains poor and inadequate and/or weight continues to decline. Discharge Plan Admission Admit Date/Time: 07/11/24 17:49 Primary Reason for Your Visit: sepsis. right foot cellulitis. Attending Provider: Ernesto Blas Primary Care Provider: Ankur Medina Consulting Providers: Darrius Rodriguez; Christy Lechuga; Manoj Toussaint; Jayne Wang; Yudelka Lockwood; Mary Jaffe; Nina Medina NP; Amna Parsons Instructions Additional Instructions / Restrictions: Follow up with podiatry to have sutures removed from toe. Discharge Orders/Prescriptions Prescriptions: New L.acidoph,saliva-B.bif-S.therm 175 mg Capsule 1 cap PO 4X/DAY Qty: 0 0RF Boaz (with collagen) 7-7-1.5 gram Powder In Packet 1 packet PO BIDCM Qty: 0 0RF melatonin 3 mg Tablet 3 mg PO QHS PRN PRN (Reason: Insomnia) Qty: 0 0RF menthol-zinc oxide [Calmoseptine] 0.44-20.6 % Ointment 1 applic topical 4X/DAY Qty: 0 0RF Protocol: *Topical Application Instructions APPLICATION INSTRUCTIONS: apply to bilateral buttocks prednisone 10 mg tablet 10 mg PO DAILY Qty: 24 0RF Rx Instructions: 4 tabs daily for 2 days, then 3 tabs daily for 3 days, then 2 tabs daily for 3 days amoxicillin-pot clavulanate 875-125 mg tablet 1 tab PO BID Qty: 8 0RF Continued finasteride [Proscar] 5 mg tablet 5 mg PO DAILY cilostazol 50 mg tablet 50 mg PO BID tizanidine 2 mg tablet 2 mg PO QHS PRN (Reason: muscle spasticity) potassium chloride 20 mEq tablet,ER particles/crystals 20 meq PO QDAY citalopram 10 mg tablet 10 mg PO QDAY tamoxifen 20 mg tablet 100 mg PO QDAY 30 Days Qty: 450 3RF acetaminophen 500 mg tablet 1,000 mg PO BID ascorbic acid (vitamin C) 500 mg Tablet 500 mg PO 1200 Qty: 1 0RF ferrous sulfate [FeroSul] 325 mg (65 mg iron) Tablet 325 mg PO DAILY@1200 Qty: 1 0RF mirtazapine 7.5 mg tablet 7.5 mg PO QHS ammonium lactate 12 % cream 1 applic topical QHS gabapentin 100 mg capsule 100 mg PO BIDCM Qty: 30 0RF pantoprazole [Protonix] 40 mg tablet,delayed release (DR/EC) 40 mg PO DAILY Qty: 60 0RF atorvastatin 20 mg tablet 20 mg PO QHS sucralfate [Carafate] 100 mg/mL suspension 1 g PO 4X/DAY Rx Instructions: BEFORE MEALS AND AT BEDTIME hydrocortisone 2.5 % cream 1 applic topical BID nystatin 100,000 unit/gram ointment 1 applic topical BID midodrine 5 mg Tablet 5 mg PO TIDCM Qty: 0 0RF levothyroxine 25 mcg Tablet 12.5 mcg PO DAILY@0600 Qty: 0 0RF cyanocobalamin (vitamin B-12) 1,000 mcg capsule 1,000 mcg PO DAILY ondansetron 4 mg tablet,disintegrating 4 mg PO Q8H PRN PRN (Reason: Nausea) Qty: 10 0RF Held prednisone 5 mg Tablet 10 mg PO DAILY Qty: 0 0RF Hold Instructions: Resume on 07/24/24. 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
[2024-07-15 13:00] VITALS: BP 93/40; PULSE 94; RESP 16; TEMP 36.8; O2SAT 98
[2024-07-15] MEDS: Ferrous Sulfate 325 MG Tablet PO (13:02)
[2024-07-15] MEDS: Ascorbic Acid 500 MG Tablet PO (13:03)
--- NOTE | 2024-07-15 13:30 | DS.PCM_ITS ---
Providers Date of Admission: 07/11/24 Primary Care Physician: Dr. Ankur Medina, Consultations 07/11/24 19:40 Consult: Onc/Wound/metal trim erector Routine Comment: Consult: Podiatry Routine Consulting Provider: Darrius Rodriguez Reason for Consult: R foot infection EMERGENT Consult: No Notified: Yes Date Notified: 07/12/24 Time Notified: 06:23 Method of Notification: Text 07/11/24 19:47 Consult: Hospice / Palliative Care Routine Consulting Provider: [facility] Reason for Consult: Palliative care EMERGENT Consult: No Notified: Yes Date Notified: 07/13/24 Time Notified: 10:06 Method of Notification: Answering Service Comments:: completed by social psychologist and case mgmt. Reason For Visit: R FOOT CELLULITIS/SUSPECTED SHINGLES/STAGE 4 BREAS Diagnosis Discharge Diagnosis (1) Acute chest wall pain: Status: Acute Code(s): R07.89 - Other chest pain (2) Intractable back pain: Status: Acute Code(s): M54.9 - Dorsalgia, unspecified (3) Cellulitis of foot, right: Status: Acute Code(s): L03.115 - Cellulitis of right lower limb (4) Breast cancer in male: Status: Acute Code(s): C50.929 - Malignant neoplasm of unspecified site of unspecified male breast Qualifiers: Breast location: combined nipple and areola Estrogen receptor status: p ositive Laterality: right Qualified Code(s): C50.021 - Malignant neoplasm of nipple and areola, right male breast; Z17.0 - Estrogen receptor positive status [ER+] Plan Right foot cellulitis * Patient had traumatic event where he actually had the toenail pulled off and ancillary services manager therapy had the suture * Patient without any sensation in the foot but has marked erythema and swelling which is not consistent with his baseline and it is extending up into the dorsum of his foot * Will start Zosyn and I did choose Zosyn to Pseudomonas--> previous sensitivities reviewed reviewed and he does have history of Staph aureus but it was MSSA * Wound care nurse consulted * Foot Xray unremarkable. * DC with Augmentin Left-sided thoracic pain that wraps to the left chest area * No rash at this time. Not sensitive at this time. Reviewed imaging, no obvious vertebral fracture. * DC'd acyclovir as there is no evidence of Shingles. * May have been due to costochrondritis. Encephalopathy * Improved. Suspect metabolic. 2/2 cellulitis, sepsis, acute adrenal crisis. * Had hydromorphone, pregabalin ordered. Those have been held. Did receive a pregabalin on 07/11. Sepsis: * developed during admission. Developed 07/11 with ongoing hypotension the following day. Did not receive 30cc/kg of IVF. Held due to developing anasarca and pleural effusion. Concerning for developing worsening respiratory status due to CHF. * Complicated by what appears to be adrenal crisis. Which appears improved by stress-dose steroids. * UA unremarkable. Blood culture so far negative. Adrenal crisis * Improved BP. * 2/2 to infection and his long-term prednisone. Started stress-dose steroid. Will start to taper down to home dose. 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 العراقي--> plan is for tamoxifen 100 mg daily for 4 weeks then reassess * Per documentation not a candidate for chemotherapy or monoclonal therapy against HER2 * Patient agreeable to palliative care consult, to likely take place as outpt. Generalized weakness * Patient is nonambulatory at baseline * Is receiving PT and OT so we will continue Chronic conditions: * Paroxysmal atrial fibrillation -patient is not anticoagulated-Not on any rate controlling medication-Currently in sinus rhythm * History of C. difficile colitis-Will utilize lactobacillus to help avoid C. 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 CODE STATUS-DNR CCA with no intubation DC to [facility] in stable condition. DW patient's dtr at bedside. Medications at Discharge Home Medications finasteride 5 mg tablet (Proscar) 5 mg PO DAILY PROSTATES 07/18/17 cilostazol 50 mg tablet 50 mg PO BID vasodilator 02/02/22 ascorbic acid (vitamin C) 500 mg tablet 500 mg PO 1200 vitamin #1 TAB 07/25/23 ferrous sulfate 325 mg (65 mg iron) tablet (FeroSul) 325 mg PO DAILY@1200 supplement #1 TAB 07/25/23 ammonium lactate 12 % topical cream 1 applic topical QHS Achalasia of cardia 11/30/23 mirtazapine 7.5 mg tablet 7.5 mg PO QHS mental health 11/30/23 gabapentin 100 mg capsule 100 mg PO BIDCM nerve pain #30 caps 12/04/23 pantoprazole 40 mg tablet,delayed release (Protonix) 40 mg PO DAILY reflux #60 tabs 02/12/24 atorvastatin 20 mg tablet 20 mg PO QHS cholesterol 02/25/24 hydrocortisone 2.5 % topical cream 1 applic topical BID skin 02/25/24 nystatin 100,000 unit/gram topical ointment 1 applic topical BID skin 02/25/24 sucralfate 100 mg/mL oral suspension (Carafate) 1 g PO 4X/DAY GERD 02/25/24 levothyroxine 25 mcg tablet 12.5 mcg (1/2 x 25 mcg) PO DAILY@0600 thyroid #0 tabs 02/27/24 midodrine 5 mg tablet 5 mg PO TIDCM blood pressure #0 tabs 02/27/24 prednisone 5 mg tablet 10 mg (2 x 5 mg) PO DAILY inflammation #0 tabs 02/27/24 ondansetron 4 mg disintegrating tablet 4 mg PO Q8H PRN PRN Nausea #10 tabs 05/23/24 citalopram 10 mg tablet 10 mg PO QDAY Depression 06/15/24 potassium chloride 20 mEq tablet,extended release(part/cryst) 20 meq PO QDAY supplement 06/23/24 tizanidine 2 mg tablet 2 mg PO QHS PRN muscle spasticity 06/23/24 acetaminophen 500 mg tablet 1,000 mg PO BID arthritis 06/25/24 tamoxifen 20 mg tablet 100 mg (5 x 20 mg) PO QDAY malignant neoplasm of skin 30 days #450 tabs 07/08/24 cyanocobalamin (vitamin B-12) 1,000 mcg capsule 1,000 mcg PO DAILY Vitamin B-12 deficiency anemia 07/11/24 L.acidophil,salivari-Bifido bifidum-Strep thermoph 175 mg capsule 1 cap PO 4X/DAY #0 caps 07/15/24 amoxicillin 875 mg-potassium clavulanate 125 mg tablet 1 tab PO BID #8 tabs 07/15/24 arginine 7 gram-glutam 7 gram-CaHMB 1.5 egaa-amgmw-ce-min oral pwd pkt (Boaz (with collagen)) 1 packet PO BIDCM #0 ea 07/15/24 melatonin 3 mg tablet 3 mg PO QHS PRN PRN Insomnia #0 tabs 07/15/24 menthol 0.44 %-zinc oxide 20.6 % topical ointment (Calmoseptine) 1 applic topical 4X/DAY #0 grams 07/15/24 prednisone 10 mg tablet 10 mg PO DAILY #24 tabs 07/15/24 Hospital Course Operations None Procedures None Summary of Care Provided Minutes Spent on Discharge: 36 Hospital Course: Is an 84-year-old male presents with intractable left-sided chest pain and headache. Concern initially is that he may have had acute shingles on his left side and was started on acyclovir. Patient recently also had right third toenail injury was removed and it required sutures done as outpatient. He had developed cellulitis on that foot. The following day, the patient was very somnolent and became hypotensive. Patient was started on stress dose steroids as he chronically takes prednisone for polymyalgia rheumatica.. The day after that, the patient was mentally alert and his blood pressure was improved. Patient was septic and underwent a septic workup. Blood cultures came back negative. Patient's foot has improved. Patient overall is doing well. Patient be discharged with a prednisone tapered down to his 10 mg daily and antibiotics with Augmentin. Discussed discussed case with the patient's daughter on numerous occasions while he was in the hospital. Patient will be discharged back to [facility] stable condition. Medical Records Data Medical Nutrition Assessment Dietitian: Malnutrition Criteria Met Start: 07/12/24 13:33 Freq: Status: Active Protocol: Document 07/15/24 10:45 RMA (Rec: 07/15/24 10:45 RMA [id number]) Nutrition Malnutrition Evidence of Malnutrition Exists Yes Malnutrition (severe): Chronic Evidenced By Suboptimal Energy Intake ( Severe),Weight Loss (Severe) Intake Problem Increased Nutrient Needs (specify) Etiology for protein related to skin/ wound healing Signs/Symptoms as evidenced by multiple site wounds Status Active Problem Clinical Problem Chronic Disease or Condition Related Malnutrition Etiology severe protein-calorie malnutrition in the context of chronic disease related to inadequate oral intake and increased energy expenditure Signs/Symptoms as evidenced by ~12% unintentional weight loss x 6 months, BMI 23.5, PO meeting less than 50% estimated nutrition needs x 3-6 months and Po meeting less than 75% estimated nutrition needs x 6- 12 months Status Active Problem Recommendation Dietitian Recommendations/Changes Will continue liberalize regular diet and encourage improved PO at meals. Consider BOX BENDER swallowing evaluation given reported swallowing difficulty. Will d/c 240mL ensure plus HP with breakfast and continue magic cup with lunch and dinner. Will continue 120mL ensure plus HP w/ medpass 3 times per day as pt willing. Will continue Boaz BID to support wound healing. Adjust ONS as needed to optimize PO as tolerated. May need to consider enteral nutrition support if PO remains poor and inadequate and/or weight continues to decline. Weight / BMI Weight Weight: 73.8 kg Body Mass Index (BMI) 33.6 ABG / Lab / Microbiology Data 07/15/24 05:18 07/15/24 05:18 Laboratory: Laboratory Results - last 24 hr 07/15/24 05:18: WBC 8.8, RBC 3.01 L, Hgb 9.4 L, Hct 29.0 L, MCV 96.3 H, MCH 31.2, MCHC 32.4, RDW Std Deviation 47.7 H, RDW Coeff of [place] 13.6, Plt Count 208, MPV 9.9, Immature Gran % (Auto) 0.800, Neut % (Auto) 83.9 H, Lymph % (Auto) 5.1 L, [place] % (Auto) 10.2 H, Eos % (Auto) 0.0, Baso % (Auto) 0.0, Absolute Neuts (auto) 7.4, Absolute Lymphs (auto) 0.45 L, Nucleated RBC % 0, Sodium 140, Potassium 3.5, Chloride 107, Carbon Dioxide 30.0, Anion Gap 3 L, BUN 21 H, C reatinine 0.63 L, Estim Creat Clear Calc 84.00, Est GFR (MDRD) Af Amer 155, Est GFR (MDRD) Non-Af 128, BUN/Creatinine Ratio 33.2 H, Glucose 123 H, Calcium 8.3 L D/C Instructions Discharge Diet: No restrictions DC O2, CPAP, BIPAP Needs PSN CPAP & BiPAP: BiPAP & CPAP Settings per PSN Fraction of Inspired Oxygen ( 3 07/15/24 13:00 FIO2) Home O2 Discharge instructions: No Meaningful Use Info Meaningful Use Meaningful Use Diagnoses (Choose all that apply): None applicable Ischemic Stroke Statin Dosing Therapy Reference: STATIN DOSE THERAPY REFERENCE: * Patients > 75 years receive moderate or high dose statin therapy. * Patients 75 years or YOUNGER should receive HIGH intensity statin dose unless contraindicated. You will be required to document reason for non-treatment if statin daily dose does not meet guidelines. HIGH DOSE STATIN THERAPY DAILY Atorvastatin > than or = to 40 mg Rosuvastatin > than or = to 20 mg Amlodipine + Atorvastatin > than or = to 2.5/40 mg Ezetimibe + Simvastatin 10/80 mg Simvastatin 80mg Discharge Plan Admission Admit Date/Time: 07/11/24 17:49 Primary Reason for Your Visit: sepsis. right foot cellulitis. Attending Provider: Ernesto Blas Primary Care Provider: Ankur Medina Consulting Providers: Darrius Rodriguez; Christy Lechuga; Manoj Toussaint; Jayne Wang; Yudelka Lockwood; Mary Jaffe; Nina Medina NP; Amna Parsons Instructions Additional Instructions / Restrictions: Follow up with podiatry to have sutures removed from toe. Discharge Orders/Prescriptions Prescriptions: New L.acidoph,saliva-B.bif-S.therm 175 mg Capsule 1 cap PO 4X/DAY Qty: 0 0RF Boaz (with collagen) 7-7-1.5 gram Powder In Packet 1 packet PO BIDCM Qty: 0 0RF melatonin 3 mg Tablet 3 mg PO QHS PRN PRN (Reason: Insomnia) Qty: 0 0RF menthol-zinc oxide [Calmoseptine] 0.44-20.6 % Ointment 1 applic topical 4X/DAY Qty: 0 0RF Protocol: *Topical Application Instructions APPLICATION INSTRUCTIONS: apply to bilateral buttocks prednisone 10 mg tablet 10 mg PO DAILY Qty: 24 0RF Rx Instructions: 4 tabs daily for 2 days, then 3 tabs daily for 3 days, then 2 tabs daily for 3 days amoxicillin-pot clavulanate 875-125 mg tablet 1 tab PO BID Qty: 8 0RF Continued finasteride [Proscar] 5 mg tablet 5 mg PO DAILY cilostazol 50 mg tablet 50 mg PO BID tizanidine 2 mg tablet 2 mg PO QHS PRN (Reason: muscle spasticity) potassium chloride 20 mEq tablet,ER particles/crystals 20 meq PO QDAY citalopram 10 mg tablet 10 mg PO QDAY tamoxifen 20 mg tablet 100 mg PO QDAY 30 Days Qty: 450 3RF acetaminophen 500 mg tablet 1,000 mg PO BID ascorbic acid (vitamin C) 500 mg Tablet 500 mg PO 1200 Qty: 1 0RF ferrous sulfate [FeroSul] 325 mg (65 mg iron) Tablet 325 mg PO DAILY@1200 Qty: 1 0RF mirtazapine 7.5 mg tablet 7.5 mg PO QHS ammonium lactate 12 % cream 1 applic topical QHS gabapentin 100 mg capsule 100 mg PO BIDCM Qty: 30 0RF pantoprazole [Protonix] 40 mg tablet,delayed release (DR/EC) 40 mg PO DAILY Qty: 60 0RF atorvastatin 20 mg tablet 20 mg PO QHS sucralfate [Carafate] 100 mg/mL suspension 1 g PO 4X/DAY Rx Instructions: BEFORE MEALS AND AT BEDTIME hydrocortisone 2.5 % cream 1 applic topical BID nystatin 100,000 unit/gram ointment 1 applic topical BID midodrine 5 mg Tablet 5 mg PO TIDCM Qty: 0 0RF levothyroxine 25 mcg Tablet 12.5 mcg PO DAILY@0600 Qty: 0 0RF cyanocobalamin (vitamin B-12) 1,000 mcg capsule 1,000 mcg PO DAILY ondansetron 4 mg tablet,disintegrating 4 mg PO Q8H PRN PRN (Reason: Nausea) Qty: 10 0RF Held prednisone 5 mg Tablet 10 mg PO DAILY Qty: 0 0RF Hold Instructions: Resume on 07/24/24. Referrals / Follow Up: *[facility] [Provider Group] - 08/05/24 9:45 am Ankur Medina DO [Primary Care Provider] - Within 2 Weeks Disposition Disposition (needs filled in before D/C Order can be placed): Half-Way Facility Charges/Coding Visit Charges Inpatient E&M: 09495 Disch Hosp >30min
--- NOTE | 2024-07-15 13:48 | CASEMGMT ---
Social Work Physician reports that pt is ready for discharge today.? 7000 convalescent form completed in [facility]. [facility] notified of discharge. Final discharge arrangements and notification to patient/family as per discharge director of planning.? ? Disposition: [facility]?, skilled level of care under convalescent stay. DEYSI Mac
--- NOTE | 2024-07-15 14:20 | CASEMGMT ---
Discharge orders, signed med list, and transport time sent to [facility]. Physicians will transport patient by wheelchair at 4p. Nursing, SW, pt, and his daughter (Arti) updated. Violeta Dangelo DC Planning Asst.
--- NOTE | 2024-07-15 14:21 | NURSING ---
All documentation by student nurse Luz Mukherjee reviewed by vice president of nursing Yudelka Velásquez BSN, RN.
== END 2024-07-15 18:26 | disposition skilled nursing facility (03) | DRG 602 ==
LOC: ED 17:43 → MS3 18:43
PROVIDERS: Nurse Practitioner; Admitting Provider Internal Medicine; Emergency Provider Emergency Medicine; PCP Family Medicine
DX: L03.115 Cellulitis of right lower limb (principal); A41.9 Sepsis, unspecified organism; G93.41 Metabolic encephalopathy; E43 Unspecified severe protein-calorie malnutrition; C77.3 Secondary and unspecified malignant neoplasm of axilla and upper limb lymph nodes; C77.5 Secondary and unspecified malignant neoplasm of intrapelvic lymph nodes; J90 Pleural effusion, not elsewhere classified; E27.2 Addisonian crisis; N13.8 Other obstructive and reflux uropathy; Z66 Do not resuscitate; I10 Essential (primary) hypertension; I73.9 Peripheral vascular disease, unspecified; M35.3 Polymyalgia rheumatica; Z68.33 Body mass index [BMI] 33.0-33.9, adult; I48.0 Paroxysmal atrial fibrillation; C50.021 Malignant neoplasm of nipple and areola, right male breast; E78.5 Hyperlipidemia, unspecified; I25.10 Atherosclerotic heart disease of native coronary artery without angina pectoris; K21.9 Gastro-esophageal reflux disease without esophagitis; I95.89 Other hypotension; M54.6 Pain in thoracic spine; G62.9 Polyneuropathy, unspecified; L30.9 Dermatitis, unspecified; I25.2 Old myocardial infarction; B35.3 Tinea pedis; M94.0 Chondrocostal junction syndrome [Tietze]; N40.1 Benign prostatic hyperplasia with lower urinary tract symptoms; R53.1 Weakness; Z17.0 Estrogen receptor positive status [ER+]; Z95.5 Presence of coronary angioplasty implant and graft; Z79.02 Long term (current) use of antithrombotics/antiplatelets; Z79.52 Long term (current) use of systemic steroids; Z79.890 Hormone replacement therapy; Z79.899 Other long term (current) drug therapy; Z86.19 Personal history of other infectious and parasitic diseases; Z87.891 Personal history of nicotine dependence
CPT/HCPCS: 36415; 70450; 71045; 71275; 73630; 80048; 80053; 81001; 82140; 82378; 82962; 83735; 84100; 84484; 85025; 85045; 85652; 86140; 86300; 87040; 93005; 97162; 97166; 97530; 97802; 97803; 99285; 99406; P9047; Q9967; A4216; J2405

== ENCOUNTER 2024-07-28 10:26 | Inpatient (IN) | payer MEDICARE, BC, SELFPAY ==
[2024-07-28] VITALS (29 sets, daily range): BP systolic 72–125; BP diastolic 39–69; PULSE 58–101; RESP 12–24; TEMP 36.7–39.4; O2SAT 79–100; BMI 24.4; BMI 25.5
--- NOTE | 2024-07-28 10:55 | EKG12_ITS ---
Test Reason : Blood Pressure : */* mmHG Vent. Rate : 97 BPM Atrial Rate : 97 BPM P-R Int : 140 ms QRS Dur : 120 ms QT Int : 362 ms P-R-T Axes : 58 -26 98 degrees QTcB Int : 459 ms Sinus rhythm with Premature supraventricular complexes Left ventricular hypertrophy with QRS widening and repolarization abnormality ( R in aVL , Efren product ) Cannot rule out Septal infarct , age undetermined Abnormal ECG Confirmed by MELODY HARTMANN, LORELEI ([id number]), slot editor ESTRELLA CARRILLO ([id number]) on 07/30/2024 7:01:01 AM Referred By: Confirmed By: LORELEI OLIVER MD
--- NOTE | 2024-07-28 10:56 | EX.ED.DYSGE1 ---
HPI History of Present Illness Chief Complaint: Fever Narrative Narrative: 84-year-old male presents for [facility] for fever and confusion. According to his daughter, he was in assisted living previously. He was seen in the emergency department and admitted. He then had return to assisted living. She states that he was moved to more of an acute care bed at the facility yesterday. His history and physical is limited secondary to his age. He presents today with fever and confusion/lethargy. She states that he has had chronic cough. No exacerbating or alleviating factors. She does state that he started wearing oxygen at the facility recently. Additionally, he was recently diagnosed with right-sided male breast cancer, and is currently taking tamoxifen. 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 History of iron deficiency anemia Cervical spinal stenosis Neuropathic pain Atrial fibrillation TIA (transient ischemic attack) History of ST elevation myocardial infarction (STEMI) (01/11/16) 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) Essential hypertension Peripheral arterial occlusive disease History of basal cell cancer Cervical radiculopathy Stenosis of cervical spine with myelopathy Debility Restless leg syndrome Normochromic normocytic anemia Orthostatic hypotension Depression Urine retention Urinary incontinence Left ventricular hypertrophy BPH (benign prostatic hyperplasia) Pressure ulcer Myelopathy Tobacco dependence in remission Renal cyst Osteoarthritis Microscopic hematuria Eczema Anterolisthesis Leg swelling PAD (peripheral artery disease) Hyperlipidemia Atherosclerotic heart disease of [place] coronary artery without angina pectoris Paroxysmal atrial fibrillation Dilated aortic root Home Medications ?Medication ?Instructions ?Recorded ?Last Taken ?Type finasteride 5 mg tablet (Proscar) 5 mg PO DAILY PROSTATES 07/18/17 02/25/24 History cilostazol 50 mg tablet 50 mg PO BID vasodilator 02/02/22 02/25/24 History ascorbic acid (vitamin C) 500 mg 500 mg PO 1200 vitamin #1 TAB 07/25/23 02/24/24 Rx tablet ferrous sulfate 325 mg (65 mg 325 mg PO DAILY@1200 supplement #1 07/25/23 02/24/24 Rx iron) tablet (FeroSul) TAB ammonium lactate 12 % topical cream 1 applic topical QHS Achalasia of 11/30/23 07/10/24 History cardia mirtazapine 7.5 mg tablet 7.5 mg PO QHS mental health 11/30/23 02/24/24 History gabapentin 100 mg capsule 100 mg PO BIDCM nerve pain #30 caps 12/04/23 02/25/24 Rx pantoprazole 40 mg tablet,delayed 40 mg PO DAILY reflux #60 tabs 02/12/24 02/25/24 Rx release (Protonix) atorvastatin 20 mg tablet 20 mg PO QHS cholesterol 02/25/24 07/10/24 History hydrocortisone 2.5 % topical cream 1 applic topical BID skin 02/25/24 02/24/24 History nystatin 100,000 unit/gram topical 1 applic topical BID skin 02/25/24 02/24/24 History ointment sucralfate 100 mg/mL oral 1 g PO 4X/DAY GERD 02/25/24 Unknown History suspension (Carafate) levothyroxine 25 mcg tablet 12.5 mcg (1/2 x 25 mcg) PO 02/27/24 Unknown Rx DAILY@0600 thyroid #0 tabs midodrine 5 mg tablet 5 mg PO TIDCM blood pressure #0 02/27/24 Unknown Rx tabs prednisone 5 mg tablet 10 mg (2 x 5 mg) PO DAILY 02/27/24 Unknown Rx Held on 07/15/24. inflammation #0 tabs Instructions: Resume on 07/24/24. ondansetron 4 mg disintegrating 4 mg PO Q8H PRN PRN Nausea #10 tabs 05/23/24 Unknown Rx tablet citalopram 10 mg tablet 10 mg PO QDAY Depression 06/15/24 Unknown History potassium chloride 20 mEq 20 meq PO QDAY supplement 06/23/24 Unknown History tablet,extended release(part/cryst) tizanidine 2 mg tablet 2 mg PO QHS PRN muscle spasticity 06/23/24 Unknown History acetaminophen 500 mg tablet 1,000 mg PO BID arthritis 06/25/24 Unknown History tamoxifen 20 mg tablet 100 mg (5 x 20 mg) PO QDAY 07/08/24 Unknown Rx malignant neoplasm of skin 30 days #450 tabs cyanocobalamin (vitamin B-12) 1,000 mcg PO DAILY Vitamin B-12 07/11/24 Unknown History 1,000 mcg capsule deficiency anemia L.acidophil,salivari-Bifido 1 cap PO 4X/DAY #0 caps 07/15/24 Unknown Rx bifidum-Strep thermoph 175 mg capsule amoxicillin 875 mg-potassium 1 tab PO BID #8 tabs 07/15/24 Unknown Rx clavulanate 125 mg tablet arginine 7 gram-glutam 7 1 packet PO BIDCM #0 ea 07/15/24 Unknown Rx gram-CaHMB 1.5 [id number] oral pwd pkt (Boaz (with collagen)) melatonin 3 mg tablet 3 mg PO QHS PRN PRN Insomnia #0 07/15/24 Unknown Rx tabs menthol 0.44 %-zinc oxide 20.6 % 1 applic topical 4X/DAY #0 grams 07/15/24 Unknown Rx topical ointment (Calmoseptine) prednisone 10 mg tablet 10 mg PO DAILY #24 tabs 07/15/24 Unknown Rx Allergy/AdvReac Type Severity Reaction Status Date / Time morphine AdvReac Intermediate Other Verified 07/28/24 10:28 Family History Mother CHF (congestive heart failure) Heart disease Hypertension Father COPD (chronic obstructive pulmonary disease) Surgical History S/P debridement History of vascular surgery History of coronary artery stent placement (01/11/16) H/O laminectomy History of knee surgery S/P rotator cuff repair History of pilonidal cyst Social History household members: none housing: house number of children: 5 current occupation: retired current occupational exposures/hazards: No history of recent travel: No Smoking Status: Former smoker how long ago did patient quit smokin alcohol intake: current alcohol intake frequency: holidays/special occasions only details: occasional,holiday substance use type: does not use caffeine: Yes Type: coffee Number of servings: 10 what type of physical activity do you participate in: bicycling frequency: 1-2 times per week duration: 15-30 minutes/day seatbelt use: always do you feel safe at home: Yes ROS ROS ED ROS Narrative Limited secondary to patient mental status/condition. Constitutional: Positive fever, no chills. Generalized weakness. HEENT: No sore throat. Positive areas of blackness and green on tongue and buccal mucosa, right. Dry mucous membranes/dry mouth. Cardiovascular: No chest pain. No palpitations. No pedal edema. Respiratory: Chronic cough, no shortness of breath. Abdominal: No abdominal pain. No nausea. No vomiting. Genitourinary: No dysuria. No hematuria. Musculoskeletal: No myalgias. No arthralgias. Neurologic: No headaches. No dizziness. No lightheadedness. EXAM Physical Exam Narrative Exam Narrative: Temperature 101.9 ?F. Nontoxic-appearing. Dry mucous membranes/tongue. Areas of green and black on tongue and right buccal mucosa. No drooling or trismus. Airway patent. Cardiovascular examination reveals a regular rate and rhythm. Lungs clear to auscultation bilaterally anteriorly. Abdomen is soft and nontender. Able to wiggle toes bilaterally/move extremities. Const Vital Signs: 07/28/24 10:28 07/28/24 10:33 07/28/24 11:28 Temperature 101.9 F H 102.9 F H Temperature Source Temporal Oral Pulse Rate 97 93 Respiratory Rate 18 24 H Respiratory Effort Normal Non-Labored Respiratory Pattern Normal Blood Pressure 102/58 L 81/50 L Blood Pressure Mean 72 60 Pulse Ox 95 98 Oxygen Delivery Method Nasal Cannula Nasal Cannula Oxygen Flow Rate (L/min) 2 2 07/28/24 12:00 07/28/24 13:23 07/28/24 13:33 Temperature 102.9 F H 99.6 F H 99.5 F H Temperature Source Oral Oral Oral Pulse Rate 86 89 72 Respiratory Rate 24 H 20 H 20 H Respiratory Effort Respiratory Pattern Blood Pressure 84/40 L 95/63 97/44 L Blood Pressure Mean 54 73 61 Pulse Ox 93 95 96 Oxygen Delivery Method Nasal Cannula Room Air Room Air Oxygen Flow Rate (L/min) 2 07/28/24 13:53 07/28/24 14:08 Temperature 99.5 F H Temperature Source Pulse Rate 80 69 Respiratory Rate 19 H 19 H Respiratory Effort Respiratory Pattern Blood Pressure 97/44 L 91/47 L Blood Pressure Mean 61 61 Pulse Ox 95 96 Oxygen Delivery Method Room Air Oxygen Flow Rate (L/min) MDM MDM MDM Narrative Medical decision making narrative: Differential diagnosis includes but not limited to neutropenic fever versus pneumonia versus UTI versus viral syndrome. There is also concern for dehydration or other electrolyte abnormality. As his pulse is 97 and he has a temperature of 101.9, sepsis workup was pursued. EKG was obtained and interpreted by myself independently as sinus rhythm with premature supraventricular contractions at [address] changes. No STEMI. Laboratory work shows normal white count of 10.4 with hemoglobin stable at 9.9 when compared to prior laboratories. Platelet count normal at 328. INR is 1.2 with a PTT slightly elevated at 37.5 which I think is nonspecific, BUN elevated at 23 with normal creatinine of 0.73 consistent with mild dehydration. Lactic acid is normal at 0.8. AST is elevated at 40 which I think is nonspecific, ALT normal at 27. While urinalysis shows cloudy urine there are 0-5 white cells and 3+ bacteria. I do not feel that a urinary tract infection would be the source of his fever and lethargy. Chest x-ray in 1 view interpreted by myself independently does show a left lower lobe infiltrate with pleural effusion. I reviewed the radiology report which confirms my independent interpretation. As he has a normal lactic acid, and doubting sepsis currently, but he was started on antibiotics in the form of Zosyn and Cipro for nosocomial pneumonia given his recent admission to the hospital. Additionally, he has fluctuating blood pressure with it being above 100 systolic at times but then dipping down. His daughter states that he has chronic hypotension and is supposed to take midodrine 3 times a day. Given his fever and pneumonia, I discussed the patient with Dr. Dayanara Rider for admission. Given his fluctuating blood pressure but history of chronic hypotension, was still thought that he should be admitted to the ICU. Disposition is admitted in stable condition. Critical care time 31 minutes. History & Record Review Discussion w/independent historian: Patient and Family Additional record(s) reviewed:: Prior ED visit and Prior labs Lab Data Attestation: I reviewed the patient's lab results. Labs: Laboratory Results - last 24 hr 07/28/24 07/28/24 10:40 11:45 WBC 10.4 RBC 3.19 L Hgb 9.9 L Hct 29.6 L MCV 92.8 MCH 31.0 MCHC 33.4 RDW Std Deviation 44.0 H RDW Coeff of [place] 12.8 Plt Count 328 MPV 10.0 Immature Gran % (Auto) 0.600 Neut % (Auto) 85.0 H Lymph % (Auto) 3.5 L [place] % (Auto) 10.7 H Eos % (Auto) 0.0 Baso % (Auto) 0.2 Absolute Neuts (auto) 8.8 H Absolute Lymphs (auto) 0.36 L Nucleated RBC % 0 PT 15.7 H INR 1.2 APTT 37.5 H Sodium 132 L Potassium 3.6 Chloride 97 L Carbon Dioxide 28.0 Anion Gap 7 BUN 23 H Creatinine 0.73 Estim Creat Clear Calc 70.97 Est GFR (MDRD) Af Amer 132 Est GFR (MDRD) Non-Af 109 BUN/Creatinine Ratio 31.6 H Glucose 78 Lactic Acid 0.8 Calcium 8.4 L Total Bilirubin 0.80 AST 40 H ALT 27 Alkaline Phosphatase 91 Total Protein 7.0 Albumin 2.2 L Globulin 4.8 H Albumin/Globulin Ratio 0.5 L Urine Color Yellow Urine Clarity Cloudy Urine pH 5.0 Ur Specific [place] 1.015 Urine Protein 30 H Urine Glucose (UA) Normal Urine Ketones 15 H Urine Occult Blood 50 H Urine Nitrite Negative Urine Bilirubin Negative Urine Urobilinogen Normal Ur Leukocyte Esterase 25 H Urine RBC 5-10 SEEN Urine WBC 0-5 SEEN Ur Squamous Epith Cells 0-5 SEEN Urine Bacteria 3+ Coarse Granular Casts 0-5 SEEN Urine Mucus RARE Radiography Chest X-Ray - ED: 1 View, Read by ED Physician, Read by Radiologist, Left Infiltrate and Left Effusion Diagnostic Testing: Clinical Impression(s) from Imaging Studies Chest X-Ray 07/28/24 11:12 IMPRESSION: 1. Left basilar atelectasis or pneumonia. 2. Pulmonary venous congestion. 3. Left pleural effusion. Reading Location: [facility] Management Discussion w/another healthcare provider: Hospitalist (Dr. Dayanara Rider) Critical Care Time Critical Care Time: Yes Critical care time (excluding procedures): 30-74 minutes (31) Discharge Plan Dx/Rx/DC Orders Clinical Impression: Pneumonia, Fever, Lethargy, Hypotension, chronic Disposition Disposition: Acute Care [facility]
[2024-07-28] MEDS: 0.9% Normal Saline (1000mL) 1,000 ML 999 ML IV ×3 (11:00→13:48)
--- NOTE | 2024-07-28 11:12 | RAD_ITS ---
EXAM: XR Chest, 1 View CLINICAL INDICATION: TECHNIQUE: Frontal view of the chest. COMPARISON: No relevant prior studies available. FINDINGS: LUNGS AND PLEURAL SPACES: Left basilar atelectasis or pneumonia. Pulmonary venous congestion. Left pleural effusion. No pneumothorax. HEART: Unremarkable. No cardiomegaly. MEDIASTINUM: Unremarkable. Normal mediastinal contour. BONES/JOINTS: Unremarkable. No acute fracture. RAD/Chest 1 View (Portable) IMPRESSION: 1. Left basilar atelectasis or pneumonia. 2. Pulmonary venous congestion. 3. Left pleural effusion. Reading [facility]
[2024-07-28 11:22] LABS: Absolute Lymphocyte Count 0.36 X10^3/uL (0.83-4.51); Absolute Neutrophil Count 8.8 X10^3/uL (2.0-7.7); Basophil# 0.02 X10^3/uL; Basophil% 0.2 % (0-1); Hematocrit 29.6 % (40-54); Hemoglobin 9.9 g/dL (13.0-16.5); Lymphocyte # 0.36 X10^3/ul (0.83-4.51); Lymphocyte % 3.5 % (19-41); Mean Corp Hgb Conc 33.4 g/dL (32-36); Mean Corpuscular Volume 92.8 fL (80-94); Monocyte# 1.11 X10^3/uL; Monocyte% 10.7 % (0-10); NRBC Flagged by Analyzer 0 % (0-5); Neutrophil # 8.83 X10^3/uL (2.7-7.7); POSITIVE DIFFERENTIAL YES; Platelet Count 328 K/mm3 (150-450); RBC Distribution Width CV 12.8 % (11.6-14.6); Red Blood Count 3.19 M/mm3 (4.6-6.2); White Blood Count 10.4 K/mm3 (4.4-11.0)
[2024-07-28 11:43] LABS: ALB/GLOB Ratio 0.5 RATIO (0.9-2.4); AST(SGOT) 40 U/L (15-37); Alanine Aminotransfer ALT/SGPT 27 U/L (16-61); Albumin, Serum 2.2 g/dL (3.2-5.0); Alkaline Phosphatase 91 U/L (45-117); Anion Gap 7 (5-15); BUN 23 mg/dL (7-18); BUN/Creat Ratio 31.6 RATIO (10-20); Calcium,Total 8.4 mg/dL (8.5-10.1); Chloride 97 mmol/L (98-107); Creatinine, Serum 0.73 mg/dL (0.70-1.30); EST Glomerular Filtration Rate 109 mL/min (>60); Est Glom Filt Rate - Afr Amer 132 mL/min (>60); Estimated Creatinine Clearance 70.97 ml/min; Globulin 4.8 g/dL (2.2-4.2); Glucose 78 mg/dL (74-106); Potassium 3.6 mmol/L (3.5-5.1); Sodium Level 132 mmol/L (136-145)
[2024-07-28 11:44] LABS: Lactic Acid 0.8 mmol/L (0.4-1.9)
[2024-07-28 11:53] LABS: International Normalized Ratio 1.2; Prothrombin Time (Protime)PT. 15.7 SECONDS (11.7-14.9)
[2024-07-28 11:54] LABS: Partial Thromboplast Time 37.5 Seconds (24.1-36.2)
[2024-07-28] MEDS: Acetaminophen 325 MG Tablet 650 MG PO (12:02)
[2024-07-28 12:16] LABS: Color, Urine Yellow (Yellow); Glucose, Dipstick Normal (Normal); Ketone-Dipstick 15 mg/dl (Negative); Leukocyte Esterase-Dipstick 25 /ul (Negative); Nitrite-Dipstick Negative (Negative); Occult Blood-Urine 50 /ul (Negative); Protein-Dipstick 30 mg/dl (Negative); Specific Gravity, Urine 1.015 (1.002-1.030); Urine Bilirubin Dipstick Negative (Negative); Urine Clarity Cloudy (Clear); Urine Urobilinogen Normal (Normal)
[2024-07-28 12:32] LABS: White Blood Cells 0-5 SEEN /hpf (0-5)
[2024-07-28 12:33] LABS: Bacteria 3+ /hpf (None Seen); Coarse Granular Cast 0-5 SEEN /lpf (0-5 /lpf); Mucous, Urine RARE /hpf (<or=2+); Red Blood Cells-Urine 5-10 SEEN /hpf (0-5); Squamous Epithelial Cells - UA 0-5 SEEN /hpf (0-5)
[2024-07-28] MEDS: Ciprofloxacin 400 MG/200 ML BAG 200 MG IV (13:48)
[2024-07-28] MEDS: Piperacil/Tazobactam 4.5 GM in 0.9% Normal Saline (100mL MB+) 100 ML IV (14:12)
--- NOTE | 2024-07-28 14:45 | ED.RN ---
PER DR. PANDYA, PATIENT TO RECEIVE TOTAL OF 2500 ML NORMAL SALINE
--- NOTE | 2024-07-28 15:03 | PCM.HP.STD ---
HPI - General General Date of Admission: 07/28/24 Date of Service: 07/28/24 Chief Complaint: Decreased LOC HPI Narrative SARA SAHA, is a 84 y/o male history of paroxysmal atrial fibrillation, hypertension, BPH, GERD, hypothyroidism presented [facility] [place] ED and recent diagnosis of breast cancer on tamoxifen presented [facility] [place] ED 08/18 due to increasing lethargy and fever. In the ED he was noted to have a fever over 102 with soft blood pressures (though is on midodrine at baseline) and chest x-ray suggestive of pneumonia. Patient given broad-spectrum antibiotics and IV fluids and hospitalist contacted for admission. Patient evaluated bedside history obtained from daughter as patient was tired and not really waking up to answer questions. Reportedly patient was little bit tired on Saturday but yesterday was up and eating well and doing well overall but today has been very tired and not really waking up well to follow commands and then was noted to spike a fever and was given Tylenol but had further elevation in temperature so he was sent to the ED. Patient did squeeze my hands on command but did not wake up to answer questions however protecting airway. 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 History of iron deficiency anemia Cervical spinal stenosis Neuropathic pain Atrial fibrillation TIA (transient ischemic attack) History of ST elevation myocardial infarction (STEMI) (01/11/16) 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) Essential hypertension Peripheral arterial occlusive disease History of basal cell cancer Cervical radiculopathy Stenosis of cervical spine with myelopathy Debility Restless leg syndrome Normochromic normocytic anemia Orthostatic hypotension Depression Urine retention Urinary incontinence Left ventricular hypertrophy BPH (benign prostatic hyperplasia) Pressure ulcer Myelopathy Tobacco dependence in remission Renal cyst Osteoarthritis Microscopic hematuria Eczema Anterolisthesis Leg swelling PAD (peripheral artery disease) Hyperlipidemia Atherosclerotic heart disease of [place] coronary artery without angina pectoris Paroxysmal atrial fibrillation Dilated aortic root Home Medications ?Medication ?Instructions ?Recorded ?Last Taken ?Type finasteride 5 mg tablet (Proscar) 5 mg PO DAILY PROSTATES 07/18/17 02/25/24 History cilostazol 50 mg tablet 50 mg PO BID vasodilator 02/02/22 02/25/24 History ascorbic acid (vitamin C) 500 mg 500 mg PO 1200 vitamin #1 TAB 07/25/23 02/24/24 Rx tablet ferrous sulfate 325 mg (65 mg 325 mg PO DAILY@1200 supplement #1 07/25/23 02/24/24 Rx iron) tablet (FeroSul) TAB ammonium lactate 12 % topical cream 1 applic topical QHS Achalasia of 11/30/23 07/10/24 History cardia mirtazapine 7.5 mg tablet 7.5 mg PO QHS mental health 11/30/23 02/24/24 History gabapentin 100 mg capsule 100 mg PO BIDCM nerve pain #30 caps 12/04/23 02/25/24 Rx pantoprazole 40 mg tablet,delayed 40 mg PO DAILY reflux #60 tabs 02/12/24 02/25/24 Rx release (Protonix) atorvastatin 20 mg tablet 20 mg PO QHS cholesterol 02/25/24 07/10/24 History hydrocortisone 2.5 % topical cream 1 applic topical BID skin 02/25/24 02/24/24 History nystatin 100,000 unit/gram topical 1 applic topical BID skin 02/25/24 02/24/24 History ointment sucralfate 100 mg/mL oral 1 g PO 4X/DAY GERD 02/25/24 Unknown History suspension (Carafate) levothyroxine 25 mcg tablet 12.5 mcg (1/2 x 25 mcg) PO 02/27/24 Unknown Rx DAILY@0600 thyroid #0 tabs midodrine 5 mg tablet 5 mg PO TIDCM blood pressure #0 02/27/24 Unknown Rx tabs prednisone 5 mg tablet 10 mg (2 x 5 mg) PO DAILY 02/27/24 Unknown Rx Held on 07/15/24. inflammation #0 tabs Instructions: Resume on 07/24/24. ondansetron 4 mg disintegrating 4 mg PO Q8H PRN PRN Nausea #10 tabs 05/23/24 Unknown Rx tablet citalopram 10 mg tablet 10 mg PO QDAY Depression 06/15/24 Unknown History potassium chloride 20 mEq 20 meq PO QDAY supplement 06/23/24 Unknown History tablet,extended release(part/cryst) tizanidine 2 mg tablet 2 mg PO QHS PRN muscle spasticity 06/23/24 Unknown History acetaminophen 500 mg tablet 1,000 mg PO BID arthritis 06/25/24 Unknown History tamoxifen 20 mg tablet 100 mg (5 x 20 mg) PO QDAY 07/08/24 Unknown Rx malignant neoplasm of skin 30 days #450 tabs cyanocobalamin (vitamin B-12) 1,000 mcg PO DAILY Vitamin B-12 07/11/24 Unknown History 1,000 mcg capsule deficiency anemia L.acidophil,salivari-Bifido 1 cap PO 4X/DAY #0 caps 07/15/24 Unknown Rx bifidum-Strep thermoph 175 mg capsule amoxicillin 875 mg-potassium 1 tab PO BID #8 tabs 07/15/24 Unknown Rx clavulanate 125 mg tablet arginine 7 gram-glutam 7 1 packet PO BIDCM #0 ea 07/15/24 Unknown Rx gram-CaHMB 1.5 [id number]-zh-min oral pwd pkt (Boaz (with collagen)) melatonin 3 mg tablet 3 mg PO QHS PRN PRN Insomnia #0 07/15/24 Unknown Rx tabs menthol 0.44 %-zinc oxide 20.6 % 1 applic topical 4X/DAY #0 grams 07/15/24 Unknown Rx topical ointment (Calmoseptine) prednisone 10 mg tablet 10 mg PO DAILY #24 tabs 07/15/24 Unknown Rx Allergy/AdvReac Type Severity Reaction Status Date / Time morphine AdvReac Intermediate Other Verified 07/28/24 10:28 Family History Mother CHF (congestive heart failure) Heart disease Hypertension Father COPD (chronic obstructive pulmonary disease) Surgical History S/P debridement History of vascular surgery History of coronary artery stent placement (01/11/16) H/O laminectomy History of knee surgery S/P rotator cuff repair History of pilonidal cyst Social History household members: none housing: house number of children: 5 current occupation: retired current occupational exposures/hazards: No history of recent travel: No Smoking Status: Former smoker how long ago did patient quit smokin alcohol intake: current alcohol intake frequency: holidays/special occasions only details: occasional,holiday substance use type: does not use caffeine: Yes Type: coffee Number of servings: 10 what type of physical activity do you participate in: bicycling frequency: 1-2 times per week duration: 15-30 minutes/day seatbelt use: always do you feel safe at home: Yes ROS ROS Narrative Unable to obtain secondary to mental status Vital Signs Vital Signs Vital Signs: 07/28/24 10:28 07/28/24 10:33 07/28/24 11:28 Temperature 101.9 F H 102.9 F H Temperature Source Temporal Oral Pulse Rate 97 93 Respiratory Rate 18 24 H Respiratory Effort Normal Non-Labored Respiratory Pattern Normal Blood Pressure 102/58 L 81/50 L Blood Pressure Mean 72 60 Pulse Ox 95 98 Oxygen Delivery Method Nasal Cannula Nasal Cannula Oxygen Flow Rate (L/min) 2 2 07/28/24 12:00 07/28/24 13:23 07/28/24 13:33 Temperature 102.9 F H 99.6 F H 99.5 F H Temperature Source Oral Oral Oral Pulse Rate 86 89 72 Respiratory Rate 24 H 20 H 20 H Respiratory Effort Respiratory Pattern Blood Pressure 84/40 L 95/63 97/44 L Blood Pressure Mean 54 73 61 Pulse Ox 93 95 96 Oxygen Delivery Method Nasal Cannula Room Air Room Air Oxygen Flow Rate (L/min) 2 07/28/24 13:53 07/28/24 14:08 07/28/24 14:47 Temperature 99.5 F H 99 F Temperature Source Oral Pulse Rate 80 69 82 Respiratory Rate 19 H 19 H 19 H Respiratory Effort Respiratory Pattern Blood Pressure 97/44 L 91/47 L 116/59 L Blood Pressure Mean 61 61 78 Pulse Ox 95 96 95 Oxygen Delivery Method Room Air Room Air Oxygen Flow Rate (L/min) Weight Weight: 77.2 kg Body Mass Index (BMI) 24.4 Physical Exam Narrative General: Resting comfortably, would squeeze hand but would not wake up to verbal answer questions HEENT: Atraumatic Eyes: Was not spontaneously opening eyes Neck: Supple Respiratory: Normal respiratory effort with diminished sounds at left lung base Cardiovascular: Regular rate GI: Soft, nondistended Extremities: No edema Musculoskeletal: Moving all extremities Neuro: No overt focal neurological deficits however patient not able to cooperate with physical exam Skin: No rashes appreciated Psych: Unable to cooperate given mental status Results Lab / Micro Data 07/28/24 10:40 02/04/25 10:40 Labs: Laboratory Results - last 24 hr 07/28/24 10:40: WBC 10.4, RBC 3.19 L, Hgb 9.9 L, Hct 29.6 L, MCV 92.8, MCH 31.0, MCHC 33.4, RDW Std Deviation 44.0 H, RDW Coeff of [place] 12.8, Plt Count 328, MPV 10.0, Immature Gran % (Auto) 0.600, Neut % (Auto) 85.0 H, Lymph % (Auto) 3.5 L, [place] % (Auto) 10.7 H, Eos % (Auto) 0.0, Baso % (Auto) 0.2, Absolute Neuts (auto) 8.8 H, Absolute Lymphs (auto) 0.36 L, Nucleated RBC % 0, PT 15.7 H, INR 1.2, APTT 37.5 H, Sodium 132 L, Potassium 3.6, Chloride 97 L, Carbon Dioxide 28.0, Anion Gap 7, BUN 23 H, Creatinine 0.73, Estim Creat Clear Calc 70.97, Est GFR (MDRD) Af Amer 132, Est GFR (MDRD) Non-Af 109, BUN/Creatinine Ratio 31.6 H, Glucose 78, Lactic Acid 0.8, Calcium 8.4 L, Total Bilirubin 0.80, AST 40 H, ALT 27, Alkaline Phosphatase 91, Total Protein 7.0, Albumin 2.2 L, Globulin 4.8 H, Albumin/Globulin Ratio 0.5 L 07/28/24 11:45: Urine Color Yellow, Urine Clarity Cloudy, Urine pH 5.0, Ur Specific [place] 1.015, Urine Protein 30 H, Urine Glucose (UA) Normal, Urine Ketones 15 H, Urine Occult Blood 50 H, Urine Nitrite Negative, Urine Bilirubin Negative, Urine Urobilinogen Normal, Ur Leukocyte Esterase 25 H, Urine RBC 5-10 SEEN, Urine WBC 0-5 SEEN, Ur Squamous Epith Cells 0-5 SEEN, Urine Bacteria 3+, Coarse Granular Casts 0-5 SEEN, Urine Mucus RARE Micro: Microbiology 07/28/24 11:20 Mucosa - Nose SARS-CoV-2, Influenza & RSV (PCR) - Final Imaging Radiology Impression Chest X-Ray 07/28/24 11:12 IMPRESSION: 1. Left basilar atelectasis or pneumonia. 2. Pulmonary venous congestion. 3. Left pleural effusion. Reading Location: [facility] Assessment & Plan Assessment/Plan (1) Pneumonia: PLAN: Plan # Left lower lobe pneumonia -Imaging: Chest x-ray with left lower lobe pneumonia and pleural effusion -DuoNebs and as needed albuterol -Sputum culture, COVID negative, respiratory panel ordered -Urine antigens -Mucinex, I/S -Will cover more broadly given patient's recent hospitalization -Patient's blood pressure is low however it does stay low and is on midodrine chronically, has also been chronically on prednisone and previously required stress dose steroids, will start on stress dose steroids -IV fluids -Lab workup fairly benign, blood cultures were sent # Recently diagnosed breast cancer -On tamoxifen #Suspected PMR -Patient started on 10 mg daily of prednisone several months ago for suspected PMR -Stress dose steroids as above # KAI -Creatinine 1.09 with baseline around 0.7 -Patient received IV fluids -Repeat in the a.m. -Avoid nephrotoxic agents # Right breast/chest wall mass with lymphadenopathy -Patient to follow with Dr. Vergara on discharge for further workup and possible biopsy of chest wall mass # History of coronary artery disease -Continue statin -Not on antiplatelet therapy due to recent endoscopy with esophageal and duodenal ulcers #PAD -With previous intervention proximal left peroneal to distal left peroneal angioplasty x3 11/02/2021 -Continue statin -Not on antiplatelet therapy due to previous endoscopy with esophageal and duodenal ulcers # Chronic left foot wound -Wound care #Hx pafib -Patient presently with heart rate 40s to 50s, no rate control necessary, previously deemed to be poor anticoagulation candidate #Chronic BPH with obstruction -Continue home medications #Hypothyroidism -Continue Synthroid #GERD -Will change PPI to IV while patient on stress dose steroids in the ICU, especially given recent bleeding ulcers on EGD -Continue sucralfate #Hypokalemia -Replace -Repeat in the AM #Depression/anxiety -Continue home medications #DVT ppx: Lovenox subcu Dayanara Rider MD Charges/Coding Visit Charges Inpatient E&M: 96339 Init Hosp L2
[2024-07-28] MEDS: 0.9% Normal Saline (1000mL) 1,000 ML 100 ML IV (16:17)
[2024-07-28] MEDS: Midodrine HCl 5 MG Tablet PO (16:28)
--- NOTE | 2024-07-28 16:55 | RAD_ITS ---
PROCEDURE: CHEST 1 VIEW (PORTABLE) TECHNIQUE: Single frontal image including the chest and abdomen. COMPARISON: Shortness of breath. Patient on BiPAP. FINDINGS: Stable heart size Opacification of the left luis thorax due to left pleural fluid. Can not exclude superimposed infiltrate. Right lung is clear. Degenerative osteoarthritic changes involving both glenohumeral joints. Postoperative findings involving the right shoulder. Multilevel spondylosis. Cardiac monitoring leads overlie the chest wall RAD/Chest 1 View (Portable) IMPRESSION: Left pleural effusion which may have increased since the earlier study. No other significant changes. Reading Location: [facility]
--- NOTE | 2024-07-28 17:02 | EX.ED.DYSGE1 ---
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 History of iron deficiency anemia Cervical spinal stenosis Neuropathic pain Atrial fibrillation TIA (transient ischemic attack) History of ST elevation myocardial infarction (STEMI) (01/11/16) 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) Essential hypertension Peripheral arterial occlusive disease History of basal cell cancer Cervical radiculopathy Stenosis of cervical spine with myelopathy Debility Restless leg syndrome Normochromic normocytic anemia Orthostatic hypotension Depression Urine retention Urinary incontinence Left ventricular hypertrophy BPH (benign prostatic hyperplasia) Pressure ulcer Myelopathy Tobacco dependence in remission Renal cyst Osteoarthritis Microscopic hematuria Eczema Anterolisthesis Leg swelling PAD (peripheral artery disease) Hyperlipidemia Atherosclerotic heart disease of [place] coronary artery without angina pectoris Paroxysmal atrial fibrillation Dilated aortic root Home Medications ?Medication ?Instructions ?Recorded ?Last Taken ?Type finasteride 5 mg tablet (Proscar) 5 mg PO DAILY PROSTATES 07/18/17 02/25/24 History cilostazol 50 mg tablet 50 mg PO BID vasodilator 02/02/22 02/25/24 History ascorbic acid (vitamin C) 500 mg 500 mg PO 1200 vitamin #1 TAB 07/25/23 02/24/24 Rx tablet ferrous sulfate 325 mg (65 mg 325 mg PO DAILY@1200 supplement #1 07/25/23 02/24/24 Rx iron) tablet (FeroSul) TAB ammonium lactate 12 % topical cream 1 applic topical QHS Achalasia of 11/30/23 07/10/24 History cardia mirtazapine 7.5 mg tablet 7.5 mg PO QHS mental health 11/30/23 02/24/24 History gabapentin 100 mg capsule 100 mg PO BIDCM nerve pain #30 caps 12/04/23 02/25/24 Rx pantoprazole 40 mg tablet,delayed 40 mg PO DAILY reflux #60 tabs 02/12/24 02/25/24 Rx release (Protonix) atorvastatin 20 mg tablet 20 mg PO QHS cholesterol 02/25/24 07/10/24 History hydrocortisone 2.5 % topical cream 1 applic topical BID skin 02/25/24 02/24/24 History sucralfate 100 mg/mL oral 1 g PO 4X/DAY GERD 02/25/24 Unknown History suspension (Carafate) levothyroxine 25 mcg tablet 12.5 mcg (1/2 x 25 mcg) PO 02/27/24 Unknown Rx DAILY@0600 thyroid #0 tabs ondansetron 4 mg disintegrating 4 mg PO Q8H PRN PRN Nausea #10 tabs 05/23/24 Unknown Rx tablet citalopram 10 mg tablet 10 mg PO QDAY Depression 06/15/24 Unknown History potassium chloride 20 mEq 20 meq PO QDAY supplement 06/23/24 Unknown History tablet,extended release(part/cryst) tizanidine 2 mg tablet 2 mg PO QHS PRN muscle spasticity 06/23/24 Unknown History acetaminophen 500 mg tablet 1,000 mg PO BID arthritis 06/25/24 Unknown History tamoxifen 20 mg tablet 100 mg (5 x 20 mg) PO QDAY 07/08/24 Unknown Rx malignant neoplasm of skin 30 days #450 tabs cyanocobalamin (vitamin B-12) 1,000 mcg PO DAILY Vitamin B-12 07/11/24 Unknown History 1,000 mcg capsule deficiency anemia arginine 7 gram-glutam 7 1 packet PO BIDCM #0 ea 07/15/24 Unknown Rx gram-CaHMB 1.5 [id number]-[id number]-sq-min oral pwd pkt (Boaz (with collagen)) melatonin 3 mg tablet 3 mg PO QHS PRN PRN Insomnia #0 07/15/24 Unknown Rx tabs Lactobacillus acidophilus 250 250 mmu cells PO 4X/DAY probiotic 07/28/24 Unknown History million cell capsule arginine 7 gram-glutamine 7 1 ea PO BID wound healing 07/28/24 Unknown History gram-calcium HMB 1.5 gram oral powder pack (Boaz) midodrine 5 mg tablet 5 mg PO TIDCM blood pressure 07/28/24 Unknown History prednisone 10 mg tablet 10 mg PO DAILY steroid 07/28/24 Unknown History Allergy/AdvReac Type Severity Reaction Status Date / Time morphine AdvReac Intermediate Other Verified 07/28/24 10:28 Family History Mother CHF (congestive heart failure) Heart disease Hypertension Father COPD (chronic obstructive pulmonary disease) Surgical History S/P debridement History of vascular surgery History of coronary artery stent placement (01/11/16) H/O laminectomy History of knee surgery S/P rotator cuff repair History of pilonidal cyst Social History household members: none housing: house number of children: 5 current occupation: retired current occupational exposures/hazards: No history of recent travel: No Smoking Status: Former smoker how long ago did patient quit smokin alcohol intake: current alcohol intake frequency: holidays/special occasions only details: occasional,holiday substance use type: does not use caffeine: Yes Type: coffee Number of servings: 10 what type of physical activity do you participate in: bicycling frequency: 1-2 times per week duration: 15-30 minutes/day seatbelt use: always do you feel safe at home: Yes EXAM Physical Exam Const Vital Signs: 07/28/24 10:28 07/28/24 10:33 07/28/24 11:28 Temperature 101.9 F H 102.9 F H Temperature Source Temporal Oral Pulse Rate 97 93 Respiratory Rate 18 24 H Respiratory Effort Normal Non-Labored Respiratory Pattern Normal Blood Pressure 102/58 L 81/50 L Blood Pressure Mean 72 60 Pulse Ox 95 98 Oxygen Delivery Method Nasal Cannula Nasal Cannula Oxygen Flow Rate (L/min) 2 2 07/28/24 12:00 07/28/24 13:23 07/28/24 13:33 Temperature 102.9 F H 99.6 F H 99.5 F H Temperature Source Oral Oral Oral Pulse Rate 86 89 72 Respiratory Rate 24 H 20 H 20 H Respiratory Effort Respiratory Pattern Blood Pressure 84/40 L 95/63 97/44 L Blood Pressure Mean 54 73 61 Pulse Ox 93 95 96 Oxygen Delivery Method Nasal Cannula Nasal Cannula Nasal Cannula Oxygen Flow Rate (L/min) 2 2 2 07/28/24 13:53 07/28/24 14:08 07/28/24 14:47 Temperature 99.5 F H 99 F Temperature Source Oral Pulse Rate 80 69 82 Respiratory Rate 19 H 19 H 19 H Respiratory Effort Respiratory Pattern Blood Pressure 97/44 L 91/47 L 116/59 L Blood Pressure Mean 61 61 78 Pulse Ox 95 96 95 Oxygen Delivery Method Nasal Cannula Nasal Cannula Oxygen Flow Rate (L/min) 2 2 MDM MDM Lab Data Labs: Laboratory Results - last 24 hr 07/28/24 07/28/24 10:40 11:45 WBC 10.4 RBC 3.19 L Hgb 9.9 L Hct 29.6 L MCV 92.8 MCH 31.0 MCHC 33.4 RDW Std Deviation 44.0 H RDW Coeff of [place] 12.8 Plt Count 328 MPV 10.0 Immature Gran % (Auto) 0.600 Neut % (Auto) 85.0 H Lymph % (Auto) 3.5 L [place] % (Auto) 10.7 H Eos % (Auto) 0.0 Baso % (Auto) 0.2 Absolute Neuts (auto) 8.8 H Absolute Lymphs (auto) 0.36 L Nucleated RBC % 0 PT 15.7 H INR 1.2 APTT 37.5 H Sodium 132 L Potassium 3.6 Chloride 97 L Carbon Dioxide 28.0 Anion Gap 7 BUN 23 H Creatinine 0.73 Estim Creat Clear Calc 70.97 Est GFR (MDRD) Af Amer 132 Est GFR (MDRD) Non-Af 109 BUN/Creatinine Ratio 31.6 H Glucose 78 Lactic Acid 0.8 Calcium 8.4 L Total Bilirubin 0.80 AST 40 H ALT 27 Alkaline Phosphatase 91 Total Protein 7.0 Albumin 2.2 L Globulin 4.8 H Albumin/Globulin Ratio 0.5 L Urine Color Yellow Urine Clarity Cloudy Urine pH 5.0 Ur Specific [place] 1.015 Urine Protein 30 H Urine Glucose (UA) Normal Urine Ketones 15 H Urine Occult Blood 50 H Urine Nitrite Negative Urine Bilirubin Negative Urine Urobilinogen Normal Ur Leukocyte Esterase 25 H Urine RBC 5-10 SEEN Urine WBC 0-5 SEEN Ur Squamous Epith Cells 0-5 SEEN Urine Bacteria 3+ Coarse Granular Casts 0-5 SEEN Urine Mucus RARE Radiography Diagnostic Testing: Clinical Impression(s) from Imaging Studies Chest X-Ray 07/28/24 11:12 IMPRESSION: 1. Left basilar atelectasis or pneumonia. 2. Pulmonary venous congestion. 3. Left pleural effusion. Reading Location: [facility] Discharge Plan Dx/Rx/DC Orders Clinical Impression: Pneumonia, Fever, Lethargy, Hypotension, chronic Disposition Disposition: Acute Care Hospital [facility] Discharge Date/Time: 07/28/24 18:21
--- NOTE | 2024-07-28 17:40 | ED.RN ---
REPORT CALLED TO HODA PORTILLO IN ICU
[2024-07-28 17:45] LABS: Allen Test Positive; Base Excess -3 mmol/L (-2 to +2); Bicarbonate 23.3 mmol/L (22-26); Blood Gas Specimen Type ART; Mode Not entered; O2 Delivery Device BiPAP; PEEP 8; PO2 67 mmHG (75-100); SITE R Radial; SO2 91 % (95-99); Total Carbon Dioxide 25 mmol/L; pCO2 44.3 mmHg (35-45); pH 7.33 (7.35-7.45)
--- NOTE | 2024-07-28 18:38 | PCM.HOSP.N ---
Hospitalist Note Patient received IV fluids in the ED and subsequently dropped oxygen saturation and was placed on BiPAP. Repeat chest x-ray ordered. Pulmonology/critical care also consulted given patient's borderline blood pressures (though there is chronic component) and new hypoxia, of note patient is DNR/DNI. Stress dose steroids to start as patient has had relative adrenal insufficiency in the past even though he was on 10 mg of prednisone daily.
[2024-07-28] MEDS: Ipratropium/Albuterol Sulfate 3 ML AMPUL.NEB INHALATION (19:45)
[2024-07-28] MEDS: Vancomycin HCl 1,250 MG in 0.9% Normal Saline (250mL Bag) 250 ML 167 MG IV (19:53)
[2024-07-28] MEDS: Hydrocortisone Sod Succinate 100 MG/2 ML Vial 50 MG IV (19:53)
[2024-07-28] MEDS: 0.9% Saline Lock 10 ML Syringe IV (19:57)
--- NOTE | 2024-07-28 20:05 | PCM.RX.CS ---
Consult Antibiotic Management Pharmacy has been consulted to manage selected antibiotic: Vancomycin Type of Intervention Type of Consult: New start Suspected Infection Suspected Infection: Pneumonia Labs Labs: Sodium 132 mmol/L (136-145) L 07/28/24 10:40 Potassium 3.6 mmol/L (3.5-5.1) 07/28/24 10:40 Chloride 97 mmol/L (98-107) L 07/28/24 10:40 Carbon Dioxide 28.0 mmol/L (21.0-32.0) 07/28/24 10:40 Anion Gap 7 (5-15) 07/28/24 10:40 BUN 23 mg/dL (7-18) H 07/28/24 10:40 Creatinine 0.73 mg/dL (0.70-1.30) 07/28/24 10:40 Est GFR (MDRD) Af Amer 132 mL/min (>60) 07/28/24 10:40 Est GFR (MDRD) Non-Af 109 mL/min (>60) 07/28/24 10:40 BUN/Creatinine Ratio 31.6 RATIO (10-20) H 07/28/24 10:40 Glucose 78 mg/dL (74-106) 07/28/24 10:40 Microbiology Microbiology: Microbiology 07/28/24 11:45 Urine, Clean Catch Legionella Antigen - Final 07/28/24 11:45 Urine, Clean Catch Streptococcus pneumoniae Antigen (M - Final 07/28/24 11:20 Mucosa - Nose SARS-CoV-2, Influenza & RSV (PCR) - Final Dosing Weight Weight used for dosin.4 kg Estimated Creatinine Clearance Estimated Creatinine Clearance: 71 ML/MIN Goal Trough Goal Trough: 15-20 mcg/mL Pharmacy Plan for Drug Dosing Pharmacy Plan for Drug Dosing: Give initial standard dose of 1250mg IV x1, then continue with 1000mg q12h per [facility] dosing protocol. Check a trough before the 4th overall dose. Pharmacy Service will continue to monitor and adjust dosing as required. Follow-Up Labs Follow-Up Labs: Trough: Vancomycin Date/Time Labs Ordered Labs to be done on [date and time ordered]: 07/30/24 07:30
[2024-07-28] MEDS: Midodrine HCl 5 MG Tablet 10 MG PO (21:03)
[2024-07-28] MEDS: Atorvastatin Calcium 20 MG Tablet PO (21:04)
[2024-07-28] MEDS: Mirtazapine 15 MG Tablet 7.5 MG PO (21:04)
[2024-07-28] MEDS: Sucralfate 1 GM Tablet PO (21:04)
[2024-07-28] MEDS: guaiFENesin 1,200 MG Tablet 1200 MG PO (21:04)
[2024-07-28] MEDS: tiZANidine HCl 2 MG Tablet PO (21:25)
[2024-07-28] MEDS: Piperacil/Tazobactam 3.375 GM in 0.9% Normal Saline (50mL MB+) 50 ML IV (21:27)
[2024-07-28] MEDS: 0.9% Normal Saline (100mL Bag) 100 ML 15 ML IV (21:54)
[2024-07-29] VITALS (59 sets, daily range): BP systolic 76–138; BP diastolic 37–77; PULSE 51–80; RESP 16–25; TEMP 36.5–37.2; O2SAT 77–97; BMI 25.6
[2024-07-29] MEDS: Hydrocortisone Sod Succinate 100 MG/2 ML Vial 50 MG IV ×5 (00:09→23:07)
[2024-07-29] MEDS: Ipratropium/Albuterol Sulfate 3 ML AMPUL.NEB INHALATION ×4 (01:40→18:45)
[2024-07-29 03:06] LABS: Absolute Lymphocyte Count 0.27 X10^3/uL (0.83-4.51); Absolute Neutrophil Count 8.3 X10^3/uL (2.0-7.7); Basophil# 0.01 X10^3/uL; Basophil% 0.1 % (0-1); Hematocrit 26.4 % (40-54); Hemoglobin 8.4 g/dL (13.0-16.5); Lymphocyte # 0.27 X10^3/ul (0.83-4.51); Mean Corp Hgb Conc 31.8 g/dL (32-36); Mean Corpuscular Hgb 30.4 pg (27.0-32.0); Mean Corpuscular Volume 95.7 fL (80-94); Mean Platelet Vol. 9.5 fl (6.2-12.0); Monocyte# 0.52 X10^3/uL; Monocyte% 5.7 % (0-10); NRBC Flagged by Analyzer 0 % (0-5); Neutrophil # 8.26 X10^3/uL (2.7-7.7); Neutrophil % 90.7 % (47-70); POSITIVE DIFFERENTIAL YES; Platelet Count 287 K/mm3 (150-450); RBC Distribution Width CV 13.5 % (11.6-14.6); RBC Distribution Width SD 47.7 fl (35.1-43.9); Red Blood Count 2.76 M/mm3 (4.6-6.2); White Blood Count 9.1 K/mm3 (4.4-11.0)
[2024-07-29 03:30] LABS: Anion Gap 10 (5-15); BUN 26 mg/dL (7-18); BUN/Creat Ratio 36.6 RATIO (10-20); Calcium,Total 7.7 mg/dL (8.5-10.1); Chloride 105 mmol/L (98-107); Creatinine, Serum 0.71 mg/dL (0.70-1.30); EST Glomerular Filtration Rate 112 mL/min (>60); Est Glom Filt Rate - Afr Amer 136 mL/min (>60); Estimated Creatinine Clearance 68.74 ml/min; Glucose 96 mg/dL (74-106); Potassium 3.6 mmol/L (3.5-5.1); Sodium Level 139 mmol/L (136-145); Thyroid Stim Hormone (TSH) 0.585 uIU/mL (0.358-3.740)
--- NOTE | 2024-07-29 04:10 | PCM.HOSP.N ---
Hospitalist Note BP steadily decreasing, already administered notable hydration per discussion with ICU staff, will start NEP.
[2024-07-29] MEDS: Norepinephrine 8 MG in 0.9% Normal Saline (250mL Bag) 242 ML 9.4 MG CONT INF (04:22)
[2024-07-29] MEDS: Levothyroxine 25 MCG TABLET 12.5 MCG PO (05:35)
[2024-07-29] MEDS: Piperacil/Tazobactam 3.375 GM in 0.9% Normal Saline (50mL MB+) 50 ML IV ×3 (05:35→20:51)
[2024-07-29] MEDS: Sucralfate 1 GM Tablet PO ×4 (06:29→20:51)
[2024-07-29] MEDS: Cilostazol 50 MG Tablet PO ×2 (06:29→16:24)
--- NOTE | 2024-07-29 07:41 | EX.PCM.CONCC ---
Assessment & Plan Assessment/Plan (1) Hypotension, chronic: (2) Fever: (3) Pneumonia: PLAN: Plan RECOMMENDATIONS: 1. Wean Levophed to maintain mean arterial pressure at or above 60 mmHg. 2. Continue empiric antibiotics. 3. Continue stress dose steroids. 4. Continue scheduled midodrine. 5. Lovenox for DVT prophylaxis. IMPRESSIONS: 1. Sepsis The patient presented to the hospital with sepsis due to suspected pneumonia with acute sepsis related organ dysfunction as evidenced by persistent hypotension requiring vasopressor support. However, the patient does have chronic hypotension and is on scheduled midodrine on an outpatient basis. With this in mind, we will decrease his Levophed MAP target to 60 mmHg. In addition, the patient will be continued on scheduled midodrine. Empiric antimicrobials will be continued, pending infectious workup. The patient is otherwise clinically stable. Given his history of chronic prednisone utilization, it is reasonable continue stress dose steroids for now. 2. History of breast CVA/PMR/history of coronary artery disease/chronic left foot wound/paroxysmal atrial fibrillation/hypothyroidism Complicates care, management, recovery and prognosis. Continue home medications as indicated. This note was generated with [employer] dictation software. It may contain incorrect words, spelling, and punctuation that were not noted in checking the note before signing. HPI Consult Data Date of Consult: 07/29/24 HPI Narrative Reason for Consultation: Sepsis HPI Narrative: The patient is an 84-year-old male, with a history as outlined below, who presented to the emergency department via EMS on July 28 with altered mental status and fevers. The patient has a known history of breast cancer and is currently followed by Dr. العراقي of oncology. He has been medically managed with tamoxifen. His medical history is also significant for paroxysmal atrial fibrillation, chronic hypotension on midodrine, coronary artery disease, GERD, chronic neuropathy and history of PMR on prednisone daily. On presentation to the emergency department, the patient was documented to be febrile, tachypneic and hypotensive. Laboratory evaluation revealed a normal white blood cell count. Chemistry profile was notable for a sodium of 132 and creatinine of 0.73. Lactate was within normal limits. COVID, influenza and RSV PCR's were negative. Blood and urine cultures were collected. Respiratory viral panel was negative. Chest imaging demonstrated evidence of a left-sided pleural effusion with associated atelectasis or consolidation. In the emergency department, the patient was placed on BiPAP therapy due to respiratory distress. He was started on antimicrobials and supplemental IV fluids. Ultimately, the patient did require initiation of low-dose vasopressor support to maintain hemodynamic stability. He was admitted to the medical intensive care unit for further management. This morning, the patient is resting comfortably in bed. He does report some shortness of breath, despite maintaining oxygen saturations in the mid 90s on room air. Levophed requirement is low at 3 mcg/min. 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 History of iron deficiency anemia Cervical spinal stenosis Neuropathic pain Atrial fibrillation TIA (transient ischemic attack) History of ST elevation myocardial infarction (STEMI) (01/11/16) 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) Essential hypertension Peripheral arterial occlusive disease History of basal cell cancer Cervical radiculopathy Stenosis of cervical spine with myelopathy Debility Restless leg syndrome Normochromic normocytic anemia Orthostatic hypotension Depression Urine retention Urinary incontinence Left ventricular hypertrophy BPH (benign prostatic hyperplasia) Pressure ulcer Myelopathy Tobacco dependence in remission Renal cyst Osteoarthritis Microscopic hematuria Eczema Anterolisthesis Leg swelling PAD (peripheral artery disease) Hyperlipidemia Atherosclerotic heart disease of platinum coronary artery without angina pectoris Paroxysmal atrial fibrillation Dilated aortic root Home Medications ?Medication ?Instructions ?Recorded ?Last Taken ?Type finasteride 5 mg tablet (Proscar) 5 mg PO DAILY PROSTATES 07/18/17 02/25/24 History cilostazol 50 mg tablet 50 mg PO BID vasodilator 02/02/22 02/25/24 History ascorbic acid (vitamin C) 500 mg 500 mg PO 1200 vitamin #1 TAB 07/25/23 02/24/24 Rx tablet ferrous sulfate 325 mg (65 mg 325 mg PO DAILY@1200 supplement #1 07/25/23 02/24/24 Rx iron) tablet (FeroSul) TAB ammonium lactate 12 % topical cream 1 applic topical QHS Achalasia of 11/30/23 07/10/24 History cardia mirtazapine 7.5 mg tablet 7.5 mg PO QHS mental health 11/30/23 02/24/24 History gabapentin 100 mg capsule 100 mg PO BIDCM nerve pain #30 caps 12/04/23 02/25/24 Rx pantoprazole 40 mg tablet,delayed 40 mg PO DAILY reflux #60 tabs 02/12/24 02/25/24 Rx release (Protonix) atorvastatin 20 mg tablet 20 mg PO QHS cholesterol 02/25/24 07/10/24 History hydrocortisone 2.5 % topical cream 1 applic topical BID skin 02/25/24 02/24/24 History sucralfate 100 mg/mL oral 1 g PO 4X/DAY GERD 02/25/24 Unknown History suspension (Carafate) levothyroxine 25 mcg tablet 12.5 mcg (1/2 x 25 mcg) PO 02/27/24 Unknown Rx DAILY@0600 thyroid #0 tabs ondansetron 4 mg disintegrating 4 mg PO Q8H PRN PRN Nausea #10 tabs 05/23/24 Unknown Rx tablet citalopram 10 mg tablet 10 mg PO QDAY Depression 06/15/24 Unknown History potassium chloride 20 mEq 20 meq PO QDAY supplement 06/23/24 Unknown History tablet,extended release(part/cryst) tizanidine 2 mg tablet 2 mg PO QHS PRN muscle spasticity 06/23/24 Unknown History acetaminophen 500 mg tablet 1,000 mg PO BID arthritis 06/25/24 Unknown History tamoxifen 20 mg tablet 100 mg (5 x 20 mg) PO QDAY 07/08/24 Unknown Rx malignant neoplasm of skin 30 days #450 tabs cyanocobalamin (vitamin B-12) 1,000 mcg PO DAILY Vitamin B-12 07/11/24 Unknown History 1,000 mcg capsule deficiency anemia arginine 7 gram-glutam 7 1 packet PO BIDCM #0 ea 07/15/24 Unknown Rx gram-CaHMB 1.5 pdhl-sbapw-tv-min oral pwd pkt (Boaz (with collagen)) melatonin 3 mg tablet 3 mg PO QHS PRN PRN Insomnia #0 07/15/24 Unknown Rx tabs Lactobacillus acidophilus 250 250 mmu cells PO 4X/DAY probiotic 07/28/24 Unknown History million cell capsule arginine 7 gram-glutamine 7 1 ea PO BID wound healing 07/28/24 Unknown History gram-calcium HMB 1.5 gram oral powder pack (Boaz) midodrine 5 mg tablet 5 mg PO TIDCM blood pressure 07/28/24 Unknown History prednisone 10 mg tablet 10 mg PO DAILY steroid 07/28/24 Unknown History Allergy/AdvReac Type Severity Reaction Status Date / Time morphine AdvReac Intermediate Other Verified 07/28/24 10:28 Family History Mother CHF (congestive heart failure) Heart disease Hypertension Father COPD (chronic obstructive pulmonary disease) Surgical History S/P debridement History of vascular surgery History of coronary artery stent placement (01/11/16) H/O laminectomy History of knee surgery S/P rotator cuff repair History of pilonidal cyst Social History household members: none housing: house number of children: 5 current occupation: retired current occupational exposures/hazards: No history of recent travel: No Smoking Status: Former smoker how long ago did patient quit smokin alcohol intake: current alcohol intake frequency: holidays/special occasions only details: occasional,holiday substance use type: does not use caffeine: Yes Type: coffee Number of servings: 10 what type of physical activity do you participate in: bicycling frequency: 1-2 times per week duration: 15-30 minutes/day seatbelt use: always do you feel safe at home: Yes ROS ROS Narrative 10 systems were reviewed with pertinent positives as noted in the HPI above. Physical Exam Const alert and no apparent distress General Appearance: cooperative and ill appearing HEENT normocephalic and head/scalp atraumatic Eyes PERRL, EOMs intact bilaterally and conjunctivae normal Neck supple General: trachea midline Chest inspection of chest normal Resp normal respiratory effort Auscultation: diminished lung sounds; Negative for rales, rhonchi or wheezes Cardio regular rate and regular rhythm GI normal to inspection, nondistended, normoactive bowel sounds Extremity Extremity Narrative: Left lower extremity wound present on admission. General Extremity: Negative for edema Neuro CN's II-XII intact bilaterally and no focal motor deficits Psych Mood & Affect: flat affect Lab / Micro Data 07/29/24 02:58 07/29/24 02:58 Labs: Laboratory Results - last 24 hr 07/28/24 10:40: WBC 10.4, RBC 3.19 L, Hgb 9.9 L, Hct 29.6 L, MCV 92.8, MCH 31.0, MCHC 33.4, RDW Std Deviation 44.0 H, RDW Coeff of [place] 12.8, Plt Count 328, MPV 10.0, Immature Gran % (Auto) 0.600, Neut % (Auto) 85.0 H, Lymph % (Auto) 3.5 L, [place] % (Auto) 10.7 H, Eos % (Auto) 0.0, Baso % (Auto) 0.2, Absolute Neuts (auto) 8.8 H, Absolute Lymphs (auto) 0.36 L, Nucleated RBC % 0, PT 15.7 H, INR 1.2, APTT 37.5 H, Sodium 132 L, Potassium 3.6, Chloride 97 L, Carbon Dioxide 28.0, Anion Gap 7, BUN 23 H, Creatinine 0.73, Estim Creat Clear Calc 70.97, Est GFR (MDRD) Af Amer 132, Est GFR (MDRD) Non-Af 109, BUN/Creatinine Ratio 31.6 H, Glucose 78, Lactic Acid 0.8, Calcium 8.4 L, Total Bilirubin 0.80, AST 40 H, ALT 27, Alkaline Phosphatase 91, Total Protein 7.0, Albumin 2.2 L, Globulin 4.8 H, Albumin/Globulin Ratio 0.5 L 07/28/24 11:45: Urine Color Yellow, Urine Clarity Cloudy, Urine pH 5.0, Ur Specific [place] 1.015, Urine Protein 30 H, Urine Glucose (UA) Normal, Urine Ketones 15 H, Urine Occult Blood 50 H, Urine Nitrite Negative, Urine Bilirubin Negative, Urine Urobilinogen Normal, Ur Leukocyte Esterase 25 H, Urine RBC 5-10 SEEN, Urine WBC 0-5 SEEN, Ur Squamous Epith Cells 0-5 SEEN, Urine Bacteria 3+, Coarse Granular Casts 0-5 SEEN, Urine Mucus RARE 07/29/24 02:58: WBC 9.1, RBC 2.76 L, Hgb 8.4 L, Hct 26.4 L, MCV 95.7 H, MCH 30.4, MCHC 31.8 L, RDW Std Deviation 47.7 H, RDW Coeff of [place] 13.5, Plt Count 287, MPV 9.5, Immature Gran % (Auto) 0.500, Neut % (Auto) 90.7 H, Lymph % (Auto) 3.0 L, Johnson % (Auto) 5.7, Eos % (Auto) 0.0, Baso % (Auto) 0.1, Absolute Neuts (auto) 8.3 H, Absolute Lymphs (auto) 0.27 L, Nucleated RBC % 0, Sodium 139, Potassium 3.6, Chloride 105, Carbon Dioxide 24.0, Anion Gap 10, BUN 26 H, Creatinine 0.71, Estim Creat Clear Calc 68.74, Est GFR (MDRD) Af Amer 136, Est GFR (MDRD) Non-Af 112, BUN/Creatinine Ratio 36.6 H, Glucose 96, Calcium 7.7 L, TSH 0.585 Micro: Microbiology 07/28/24 19:40 Mucosa - Nasopharyngeal Respiratory Panel (PCR) - Final 07/28/24 11:45 Urine, Clean Catch Legionella Antigen - Final 07/28/24 11:45 Urine, Clean Catch Streptococcus pneumoniae Antigen (M - Final 07/28/24 11:20 Mucosa - Nose SARS-CoV-2, Influenza & RSV (PCR) - Final ABG Data ABG results: ABG 07/28/24 17:40 Specimen Type ART Sample Site R Radial pH 7.33 L Bicarbonate Actual 23.3 Total CO2 25 Base Excess -3 L O2 Saturation 91 L O2 % 28.0 ABG pCO2 44.3 ABG pO2 67 L Darius Test Positive O2 Delivery Device BiPAP Vent Mode Not entered POC PEEP 8 Imaging Radiology Impression Chest X-Ray 07/28/24 11:12 IMPRESSION: 1. Left basilar atelectasis or pneumonia. 2. Pulmonary venous congestion. 3. Left pleural effusion. Reading [facility] Chest X-Ray 07/28/24 16:55 IMPRESSION: Left pleural effusion which may have increased since the earlier study. No other significant changes. Reading Location: [facility] Charges/Coding Visit Charges Inpatient E&M: 59101 Init Hosp L3
[2024-07-29] MEDS: Vancomycin IV 1,000 MG/200 ML BAG 200 MG IV ×2 (07:57→19:32)
[2024-07-29] MEDS: Midodrine HCl 5 MG Tablet 10 MG PO ×3 (07:58→16:24)
[2024-07-29] MEDS: Citalopram 10 MG Tablet PO (10:51)
[2024-07-29] MEDS: Enoxaparin 40 MG/0.4 ML Syringe SC (10:51)
[2024-07-29] MEDS: guaiFENesin 1,200 MG Tablet 1200 MG PO ×2 (10:52→20:51)
[2024-07-29] MEDS: Tamoxifen 10 MG Tablet 100 MG PO (10:52)
[2024-07-29] MEDS: Finasteride 5 MG Tablet PO (10:53)
[2024-07-29] MEDS: Pantoprazole Sodium 40 MG Tablet PO (10:57)
[2024-07-29] MEDS: tiZANidine HCl 2 MG Tablet PO ×3 (11:01→20:56)
--- NOTE | 2024-07-29 12:03 | CASEMGMT ---
Social Work SW met with pt and dgt Arti. Pt is admitted from [facility], [facility] and dgt confirms plan is to return there at time of discharge. Pt living in the assisted living, but is currently in the TCC for rehab and plans to return to [facility]. Clinicals sent to [facility] via [employer]. Plan: Return to [place], DEYSI Watts
--- NOTE | 2024-07-29 16:54 | PN_ITS ---
Subjective Subjective Patient seen and examined. He was very frail and weak. He denied any fever or chills, cough, chest pain, palpitations, dizziness, nausea vomiting or any other symptoms. Review of systems otherwise negative. He is on Levophed on account of hypotension. Objective Data Objective Data Vital Signs: Vital Signs Temp Pulse Resp BP Pulse Ox O2 Del Method O2 Flow Rate 98.9 F 59 L 21 H 82/37 L 91 Room Air 2 07/29/24 11:30 07/29/24 16:05 07/29/24 16:05 07/29/24 16:28 07/29/24 16:05 07/29/24 16:05 07/29/24 14:30 FiO2 28 07/28/24 16:55 Oxygen Flow Rate (L/min) 2 Oxygen Delivery Method Room Air Weight: 173 lb 8.061 oz Body Mass Index (BMI) 25.6 Intake & Output: Intake and Output for Last 24 Hours 07/27/24 07/28/24 07/29/24 23:59 23:59 23:59 Intake Total 4175.73 / 4175.73 535.26 / 535.26 Output Total 200 / 200 600 / 600 Balance 3975.73 / 3975.73 -64.74 / -64.74 Lab / Micro Data 07/29/24 02:58 07/29/24 02:58 Labs: Laboratory Results - last 24 hr 07/29/24 02:58: WBC 9.1, RBC 2.76 L, Hgb 8.4 L, Hct 26.4 L, MCV 95.7 H, MCH 30.4, MCHC 31.8 L, RDW Std Deviation 47.7 H, RDW Coeff of [place] 13.5, Plt Count 287, MPV 9.5, Immature Gran % (Auto) 0.500, Neut % (Auto) 90.7 H, Lymph % (Auto) 3.0 L, [place] % (Auto) 5.7, Eos % (Auto) 0.0, Baso % (Auto) 0.1, Absolute Neuts (auto) 8.3 H, Absolute Lymphs (auto) 0.27 L, Nucleated RBC % 0, Sodium 139, Potassium 3.6, Chloride 105, Carbon Dioxide 24.0, Anion Gap 10, BUN 26 H, Creatinine 0.71, Estim Creat Clear Calc 68.74, Est GFR (MDRD) Af Amer 136, Est GFR (MDRD) Non-Af 112, BUN/Creatinine Ratio 36.6 H, Glucose 96, Calcium 7.7 L, TSH 0.585 Micro: Microbiology 07/28/24 11:45 Urine, Catheterized Urine Culture - Preliminary Culture exhibits no growth. 07/28/24 19:40 Mucosa - Nasopharyngeal Respiratory Panel (PCR) - Final 07/28/24 11:45 Urine, Clean Catch Legionella Antigen - Final 07/28/24 11:45 Urine, Clean Catch Streptococcus pneumoniae Antigen (M - Final 07/28/24 11:20 Mucosa - Nose SARS-CoV-2, Influenza & RSV (PCR) - Final ABG Data ABG results: ABG 07/28/24 17:40 Specimen Type ART Sample Site R Radial pH 7.33 L Bicarbonate Actual 23.3 Total CO2 25 Base Excess -3 L O2 Saturation 91 L O2 % 28.0 ABG pCO2 44.3 ABG pO2 67 L Darius Test Positive O2 Delivery Device BiPAP Vent Mode Not entered POC PEEP 8 Radiography Diagnostic Testing: Radiology Impression Chest X-Ray 07/28/24 16:55 IMPRESSION: Left pleural effusion which may have increased since the earlier study. No other significant changes. Reading Location: [facility] Physical Exam Const alert Constitutional Narrative: very frail and weak Orientation / Consciousness: lethargic HEENT normocephalic and head/scalp atraumatic Mouth: dry mucous membranes Eyes PERRL and EOMs intact bilaterally Neck no lymphadenopathy, supple and no JVD Lymph Lymphatic: no lymphadenopathy noted and no lymphedema noted Resp Resp Narrative: diminished breath sounds bibasally, few crackles bibasally. On room air. tachypneic Cardio regular rate, regular rhythm, S1 normal heart sound, S2 normal heart sound and no murmurs GI normal to inspection, nondistended, normoactive bowel sounds, soft to palpation, non-tender and non-distended Extremity normal capillary refill, no clubbing, cyanosis or edema and no calf tenderness General Extremity: no tenderness to palpation of joints or extremities Skin General Skin Exam: no breakdown Neuro CN's II-XII intact bilaterally, no focal motor deficits and no sensory deficits noted Motor Exam: general weakness Psych thought process normal and cooperative Psych Narrative: very frail and weak Mood & Affect: flat affect Assessment & Plan Assessment/Plan (1) Lethargy: (2) Pneumonia: (3) Fever: (4) Septic shock: PLAN: Plan #Septic shock due to left lower lobe pneumonia and probable UTI * Patient admitted with altered mental status the chest x-ray showed left lower lobe pneumonia and pleural effusion. COVID was negative. Respiratory panel also negative. * Patient's blood pressure was very low. He does have low blood pressure chronically but it was much lower at this time he had to be started on Levophed. * He takes steroids chronically and so was started on stress dose steroids as well as secondary adrenal insufficiency could be contributing to the hypotension * On IV vancomycin and Zosyn. Critical care on board. * Breathing treatments bronchodilators. Titrate oxygen to maintain saturation above 90%. * Also on midodrine * Of note urinalysis showed 3+ bacteria. Urine cultures also pending. Currently on broad-spectrum antibiotics. * Titrate Levophed to maintain MAP more than 65. #Anemia: * Hemoglobin was 9.9 on admission and is now down to 8.4 * May be hemodilutional his WBC and platelets have also dropped. Will monitor closely. He does have a history of dysphagia and duodenal ulcers. So if anemia worsens, will consider getting GI consult also DC [facility]. * Currently on PPI * #Right breast cancer * On tamoxifen. Recently diagnosed. Also has a right chest wall mass with lymphadenopathy. Follow-up with surgeon outpatient basis for biopsy. #Suspected polymyalgia rheumatica * Had been on prednisone chronically for this. Now on stress dose steroids due to the hypotension. * #History of CAD: On statin. Not on antiplatelets due to recent endoscopy which showed esophageal and duodenal ulcers. #History of peripheral artery disease * Previously had angioplasty to the left peroneal artery in October 2021. On statin. Not on antiplatelets on account of esophageal and duodenal ulcers as above. #Paroxysmal A-fib: Usually bradycardic. Not anticoagulated. No rate control necessary due to bradycardia. #Chronic BPH with obstruction: On Flomax #Hypothyroidism: On Synthroid #GERD: PPI #Depression and anxiety: On citalopram and mirtazapine #Hypokalemia: Resolved #DVT prophylaxis: Lovenox Charges/Coding Visit Charges Inpatient E&M: 83492 [facility] Hosp L3
[2024-07-29] MEDS: Mirtazapine 15 MG Tablet 7.5 MG PO (20:51)
[2024-07-29] MEDS: Atorvastatin Calcium 20 MG Tablet PO (20:51)
[2024-07-29] MEDS: Acetaminophen 325 MG Tablet 650 MG PO (20:52)
[2024-07-29] MEDS: 0.9% Saline Lock 10 ML Syringe IV (23:07)
[2024-07-30] VITALS (26 sets, daily range): BP systolic 98–136; BP diastolic 40–82; PULSE 50–80; RESP 15–22; TEMP 36.3–37.2; O2SAT 94–99; BMI 25.2
[2024-07-30] MEDS: Ipratropium/Albuterol Sulfate 3 ML AMPUL.NEB INHALATION ×4 (01:29→20:10)
[2024-07-30] MEDS: Piperacil/Tazobactam 3.375 GM in 0.9% Normal Saline (50mL MB+) 50 ML IV ×3 (05:11→21:42)
[2024-07-30] MEDS: Hydrocortisone Sod Succinate 100 MG/2 ML Vial 50 MG IV ×2 (05:11→21:43)
[2024-07-30] MEDS: Levothyroxine 25 MCG TABLET 12.5 MCG PO (05:12)
--- NOTE | 2024-07-30 07:32 | PN.CC_ITS ---
Assessment & Plan Assessment/Plan (1) Hypotension, chronic: (2) Fever: (3) Pneumonia: PLAN: Plan RECOMMENDATIONS: 1. Continue antibiotics to complete 7 days of therapy. 2. Stress dose steroids have been weaned to twice daily today. 3. If the patient remains hemodynamically stable tomorrow, stress dose steroids can be discontinued and baseline prednisone resumed. 4. Continue scheduled midodrine. 5. Continue appropriate DVT prophylaxis. 6. Encourage incentive spirometer use while in bed. IMPRESSIONS: 1. Sepsis The patient presented to the hospital with sepsis due to suspected pneumonia with acute sepsis related organ dysfunction as evidenced by persistent hypotension requiring vasopressor support. However, the patient does have chronic hypotension and is on scheduled midodrine on an outpatient basis. The patient has been weaned from vasopressor support this morning. Empiric antibiotics will be continued. I would recommend that the patient complete a 7- day course of antibiotics. The patient is otherwise clinically stable. Plan to continue to wean stress dose steroids as ordered. 2. History of breast CVA/PMR/history of coronary artery disease/chronic left foot wound/paroxysmal atrial fibrillation/hypothyroidism Complicates care, management, recovery and prognosis. Continue home medications as indicated. This note was generated with [employer] dictation software. It may contain incorrect words, spelling, and punctuation that were not noted in checking the note before signing. Subjective Subjective The patient was seen and examined at the bedside this morning. Events from the last 24 hours have been reviewed. The patient is currently afebrile, hemodynamically stable and maintaining appropriate oxygen saturations on room air. The patient was weaned off of Levophed this morning. He is currently documented to be overall net +3.4 L for the hospitalization. The patient reported lower extremity neuropathy complaints. White blood cell count is normal. Hemoglobin and platelet count are stable. Chemistry profile was unremarkable. Objective Data Objective Data The patient's most recent lab work, culture data and imaging studies have all been personally reviewed. Surface echocardiogram from June 2024 demonstrated an ejection fraction of 55%. Respiratory viral panel was negative. Strep and urine Legionella antigens were negative. Blood and urine cultures are pending. Vital Signs: Vital Signs Temp Pulse Resp BP Pulse Ox O2 Del Method O2 Flow Rate 97.7 F L 54 L 17 136/58 H 95 Room Air 2 07/30/24 00:00 07/30/24 07:00 07/30/24 07:00 07/30/24 07:00 07/30/24 07:00 07/30/24 07:00 07/30/24 04:00 FiO2 28 07/28/24 16:55 Oxygen Flow Rate (L/min) 2 Oxygen Delivery Method Room Air Weight: 170 lb 10.205 oz Body Mass Index (BMI) 25.2 Intake & Output: Intake and Output for Last 24 Hours 07/28/24 07/29/24 07/30/24 23:59 23:59 23:59 Intake Total 4175.73 / 4175.73 819.65 / 820.13 63.79 / 63.79 Output Total 200 / 200 800 / 800 650 / 650 Balance 3975.73 / 3975.73 19.65 / 20.13 -586.21 / -586.21 Lab / Micro Data Attestation: I reviewed the patient's lab results. 07/30/24 07:55 07/30/24 07:55 Micro: Microbiology 07/28/24 11:45 Urine, Catheterized Urine Culture - Preliminary Culture exhibits no growth. 07/28/24 19:40 Mucosa - Nasopharyngeal Respiratory Panel (PCR) - Final 07/28/24 11:45 Urine, Clean Catch Legionella Antigen - Final 07/28/24 11:45 Urine, Clean Catch Streptococcus pneumoniae Antigen (M - Final 07/28/24 11:20 Mucosa - Nose SARS-CoV-2, Influenza & RSV (PCR) - Final Physical Exam Const alert, oriented x3 and no apparent distress General Appearance: cooperative HEENT normocephalic and head/scalp atraumatic Eyes PERRL, EOMs intact bilaterally and conjunctivae normal Neck supple General: trachea midline Chest inspection of chest normal Resp normal respiratory effort Auscultation: diminished lung sounds; Negative for rales, rhonchi or wheezes Cardio regular rate and regular rhythm GI normal to inspection, nondistended, normoactive bowel sounds Extremity Extremity Narrative: Left lower extremity wound present on admission. General Extremity: Negative for edema Neuro CN's II-XII intact bilaterally and no focal motor deficits Psych cooperative and affect normal Charges/Coding Visit Charges Inpatient E&M: 65314 Subs Hosp L3
[2024-07-30] MEDS: Cilostazol 50 MG Tablet PO ×2 (07:39→16:21)
[2024-07-30] MEDS: guaiFENesin 1,200 MG Tablet 1200 MG PO ×2 (07:40→21:47)
[2024-07-30] MEDS: Sucralfate 1 GM Tablet PO ×4 (07:40→21:47)
[2024-07-30] MEDS: Midodrine HCl 5 MG Tablet 10 MG PO ×3 (07:40→16:21)
[2024-07-30] MEDS: Citalopram 10 MG Tablet PO (07:40)
[2024-07-30] MEDS: Enoxaparin 40 MG/0.4 ML Syringe SC (07:40)
[2024-07-30] MEDS: Tamoxifen 10 MG Tablet 100 MG PO (07:40)
[2024-07-30] MEDS: Finasteride 5 MG Tablet PO (07:41)
[2024-07-30] MEDS: Pantoprazole Sodium 40 MG Tablet PO (07:41)
[2024-07-30 08:17] LABS: Absolute Lymphocyte Count 0.34 X10^3/uL (0.83-4.51); Basophil# 0.01 X10^3/uL; Basophil% 0.1 % (0-1); Eosinophil# 0.01 X10^3/uL; Eosinophils% 0.1 % (0-5); Hematocrit 30.2 % (40-54); Hemoglobin 9.7 g/dL (13.0-16.5); Lymphocyte # 0.34 X10^3/ul (0.83-4.51); Lymphocyte % 4.3 % (19-41); Mean Corp Hgb Conc 32.1 g/dL (32-36); Mean Corpuscular Hgb 30.1 pg (27.0-32.0); Mean Corpuscular Volume 93.8 fL (80-94); Mean Platelet Vol. 9.9 fl (6.2-12.0); Monocyte# 0.44 X10^3/uL; Monocyte% 5.6 % (0-10); NRBC Flagged by Analyzer 0 % (0-5); Neutrophil # 6.98 X10^3/uL (2.7-7.7); Neutrophil % 89.3 % (47-70); POSITIVE DIFFERENTIAL YES; Platelet Count 330 K/mm3 (150-450); RBC Distribution Width CV 13.2 % (11.6-14.6); RBC Distribution Width SD 45.5 fl (35.1-43.9); Red Blood Count 3.22 M/mm3 (4.6-6.2); White Blood Count 7.8 K/mm3 (4.4-11.0)
[2024-07-30 08:38] LABS: Anion Gap 8 (5-15); BUN 27 mg/dL (7-18); BUN/Creat Ratio 37.3 RATIO (10-20); Calcium,Total 8.3 mg/dL (8.5-10.1); Chloride 105 mmol/L (98-107); Creatinine, Serum 0.72 mg/dL (0.70-1.30); EST Glomerular Filtration Rate 110 mL/min (>60); Est Glom Filt Rate - Afr Amer 133 mL/min (>60); Estimated Creatinine Clearance 68.74 ml/min; Glucose 130 mg/dL (74-106); Potassium 3.7 mmol/L (3.5-5.1); Sodium Level 139 mmol/L (136-145)
[2024-07-30 08:54] LABS: Vancomycin, Trough Level 14.7 ug/mL (5.0-15.0)
--- NOTE | 2024-07-30 09:06 | WOUNDNOTE ---
wound photo: right foot
--- NOTE | 2024-07-30 09:07 | NUR.TO.PHY ---
wound photo: left heel/Achilles area
--- NOTE | 2024-07-30 09:08 | WOUNDNOTE ---
wound photo: sacrum
--- NOTE | 2024-07-30 09:10 | CASEMGMT ---
Updates sent to [facility]. Violeta Dangelo DC Planning Asst.
[2024-07-30] MEDS: Vancomycin IV 1,000 MG/200 ML BAG 200 MG IV ×2 (09:40→20:14)
[2024-07-30] MEDS: Gabapentin 100 MG Capsule PO ×2 (09:41→16:21)
--- NOTE | 2024-07-30 10:43 | PN_ITS ---
Subjective Subjective Patient seen and examined. He was feeling weak but alert. He had no active complaints. His MAP target has been changed to 60 per critical care so he is now off Levophed. Review of systems otherwise negative. BP is 101/47 at time of review.. Objective Data Objective Data Vital Signs: Vital Signs Temp Pulse Resp BP Pulse Ox O2 Del Method O2 Flow Rate 97.4 F L 64 18 101/47 L 94 Room Air 2 07/30/24 08:00 07/30/24 09:00 07/30/24 09:00 07/30/24 09:45 07/30/24 09:00 07/30/24 09:00 07/30/24 04:00 FiO2 28 07/28/24 16:55 Oxygen Flow Rate (L/min) 2 Oxygen Delivery Method Room Air Weight: 170 lb 10.205 oz Body Mass Index (BMI) 25.2 Intake & Output: Intake and Output for Last 24 Hours 07/28/24 07/29/24 07/30/24 23:59 23:59 23:59 Intake Total 4175.73 / 4175.73 819.65 / 820.13 315.69 / 315.69 Output Total 200 / 200 800 / 800 650 / 650 Balance 3975.73 / 3975.73 19.65 / 20.13 -334.31 / -334.31 Lab / Micro Data 07/30/24 07:55 07/30/24 07:55 Labs: Laboratory Results - last 24 hr 07/30/24 07:55: WBC 7.8, RBC 3.22 L, Hgb 9.7 L, Hct 30.2 L, MCV 93.8, MCH 30.1, MCHC 32.1, RDW Std Deviation 45.5 H, RDW Coeff of [place] 13.2, Plt Count 330, MPV 9.9, Immature Gran % (Auto) 0.600, Neut % (Auto) 89.3 H, Lymph % (Auto) 4.3 L, [place] % (Auto) 5.6, Eos % (Auto) 0.1, Baso % (Auto) 0.1, Absolute Neuts (auto) 7.0, Absolute Lymphs (auto) 0.34 L, Nucleated RBC % 0, Sodium 139, Potassium 3.7, Chloride 105, Carbon Dioxide 26.0, Anion Gap 8, BUN 27 H, Creatinine 0.72, Estim Creat Clear Calc 68.74, Est GFR (MDRD) Af Amer 133, Est GFR (MDRD) Non-Af 110, BUN/Creatinine Ratio 37.3 H, Glucose 130 H, Calcium 8.3 L, Vancomycin Trough 14.7 Micro: Microbiology 07/28/24 11:45 Urine, Catheterized Urine Culture - Final Culture exhibits no growth. 07/28/24 19:40 Mucosa - Nasopharyngeal Respiratory Panel (PCR) - Final 07/28/24 11:45 Urine, Clean Catch Legionella Antigen - Final 07/28/24 11:45 Urine, Clean Catch Streptococcus pneumoniae Antigen (M - Final 07/28/24 11:20 Mucosa - Nose SARS-CoV-2, Influenza & RSV (PCR) - Final Physical Exam Const alert Constitutional Narrative: very frail and weak HEENT normocephalic and head/scalp atraumatic Eyes PERRL and EOMs intact bilaterally Neck no lymphadenopathy, supple and no JVD Lymph Lymphatic: no lymphadenopathy noted and no lymphedema noted Resp Resp Narrative: diminished breath sounds bibasally, few crackles bibasally. On room air. tachypneic Cardio regular rate, regular rhythm, S1 normal heart sound, S2 normal heart sound and no murmurs GI normal to inspection, nondistended, normoactive bowel sounds, soft to palpation, non-tender and non-distended Extremity normal capillary refill, no clubbing, cyanosis or edema and no calf tenderness General Extremity: no tenderness to palpation of joints or extremities Skin General Skin Exam: no breakdown Neuro CN's II-XII intact bilaterally, no focal motor deficits and no sensory deficits noted Motor Exam: general weakness Psych thought process normal and cooperative Psych Narrative: very frail and weak Mood & Affect: flat affect Assessment & Plan Assessment/Plan (1) Lethargy: (2) Pneumonia: (3) Fever: (4) Septic shock: PLAN: Plan #Septic shock due to left lower lobe pneumonia and probable UTI * Patient admitted with altered mental status the chest x-ray showed left lower lobe pneumonia and pleural effusion. COVID was negative. Respiratory panel also negative. * Patient's blood pressure was very low. He does have low blood pressure chronically but it was much lower at this time he had to be started on Levophed. * Now off Levophed. MAP target changed to 60 due to his chronic low blood pressure * He takes steroids chronically and so was started on stress dose steroids as well as secondary adrenal insufficiency could be contributing to the hypotension * On IV vancomycin and Zosyn. Critical care on board. * Breathing treatments bronchodilators. Titrate oxygen to maintain saturation above 90%. * Also on midodrine * Of note urinalysis showed 3+ bacteria. Urine cultures negative. * #Anemia: * Hemoglobin was 9.9 and dropped to 8.4. Hemoglobin however is now 9.7. * Will monitor closely. He does have a history of dysphagia and duodenal ulcers. So if anemia worsens, will consider getting GI consult also DC [place]. * Currently on PPI * #Right breast cancer * On tamoxifen. Recently diagnosed. Also has a right chest wall mass with lymphadenopathy. Follow-up with surgeon outpatient basis for biopsy. #Suspected polymyalgia rheumatica * Had been on prednisone chronically for this. Now on stress dose steroids due to the hypotension. * #History of CAD: On statin. Not on antiplatelets due to recent endoscopy which showed esophageal and duodenal ulcers. #History of peripheral artery disease * Previously had angioplasty to the left peroneal artery in October 2021. On statin. Not on antiplatelets on account of esophageal and duodenal ulcers as above. #Paroxysmal A-fib: Usually bradycardic. Not anticoagulated. No rate control necessary due to bradycardia. 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
[2024-07-30] MEDS: tiZANidine HCl 2 MG Tablet PO ×2 (11:22→21:46)
--- NOTE | 2024-07-30 12:10 | CHAPLAIN ---
Type of Pastoral Visit _x__ Initial Visit ___ Follow-up Visit ___ On-call Visit ___ General Patient Visit ___ Spiritual Assessment ___ Family Conference ___ Bereavement ___ Rapid Response ___ Code Blue ___ Other (describe below) Pastoral Care Referral From _x__ Patient ___ Family ___ Nurse ___ Physician ___ Retail Store Manager ___ Maori Physiotherapist ___ Other (describe below) Sacrament/Intervention _x__ Active listening ___ Anointing ___ Presybeterian ___ Bereavement ___ Communion ___ Pooja exploration ___ ___ Life review _x__ Prayer ___ Reconciliation ___ Sacrament of Sick _x__ Supportive presence ___ Wedding ___ Other (describe below) Pastoral Comments patient and daughter are in the room; pt reviews his current cancer diagnosis and treatment with the statement I think I have had every disease now; pt admits that he is fighting to overcome this pneumonia; pt welcomes presence and prayer; offer of support given to daughter; explored emotional needs but patient says that he is fine for now
--- NOTE | 2024-07-30 12:29 | PCM.RX.CS ---
Consult Antibiotic Management Pharmacy has been consulted to manage selected antibiotic: Vancomycin Type of Intervention Type of Consult: Follow-up Suspected Infection Suspected Infection: Pneumonia Labs Labs: Sodium 139 mmol/L (136-145) 07/30/24 07:55 Potassium 3.7 mmol/L (3.5-5.1) 07/30/24 07:55 Chloride 105 mmol/L (98-107) 07/30/24 07:55 Carbon Dioxide 26.0 mmol/L (21.0-32.0) 07/30/24 07:55 Anion Gap 8 (5-15) 07/30/24 07:55 BUN 27 mg/dL (7-18) H 07/30/24 07:55 Creatinine 0.72 mg/dL (0.70-1.30) 07/30/24 07:55 Est GFR (MDRD) Af Amer 133 mL/min (>60) 07/30/24 07:55 Est GFR (MDRD) Non-Af 110 mL/min (>60) 07/30/24 07:55 BUN/Creatinine Ratio 37.3 RATIO (10-20) H 07/30/24 07:55 Glucose 130 mg/dL (74-106) H 07/30/24 07:55 Vancomycin Trough 14.7 ug/mL (5.0-15.0) 07/30/24 07:55 Microbiology Microbiology: Microbiology 07/28/24 11:20 Blood Culture (Wb) - Left Forearm Blood Culture - Preliminary No growth in 48 hours. 07/28/24 10:40 Blood Culture (Wb) - Left Forearm Blood Culture - Preliminary No growth in 48 hours. 07/28/24 11:45 Urine, Catheterized Urine Culture - Final Culture exhibits no growth. 07/28/24 19:40 Mucosa - Nasopharyngeal Respiratory Panel (PCR) - Final 07/28/24 11:45 Urine, Clean Catch Legionella Antigen - Final 07/28/24 11:45 Urine, Clean Catch Streptococcus pneumoniae Antigen (M - Final 07/28/24 11:20 Mucosa - Nose SARS-CoV-2, Influenza & RSV (PCR) - Final Goal Trough Goal Trough: 15-20 mcg/mL Pharmacy Plan for Drug Dosing Pharmacy Plan for Drug Dosing: VANCOMYCIN LEVEL RECEIVED Current Vancomycin Dose: 1000mg q12h (08,20) Number of Doses Received: x1 1250mg dose, x2 1000mg doses Vancomycin Level: 14.7 (drawn 07/30 at 0755) Hours Since Last Dose: 12.5 hours since last 1000mg dose Renal Function: SrCr 0.72 Renal Function Trend: SrCr stable Lab/Micro: Vancomycin Plan/Comments: recommend continuing current dose of 1000mg q12h as patient likely not yet at steady state. check trough prior to 4th dose Pending Level: 07/31/24 at 1930 Pharmacy Service will continue to monitor and adjust dosing as required. Follow-Up Labs Follow-Up Labs: Trough: Vancomycin (07/31/24 at 1930)
[2024-07-30] MEDS: Ensure Plus High Protein 120 ML LIQUID PO (16:25)
[2024-07-30] MEDS: 0.9% Normal Saline (100mL Bag) 100 ML 15 ML IV (20:14)
[2024-07-30] MEDS: Atorvastatin Calcium 20 MG Tablet PO (21:47)
[2024-07-30] MEDS: Mirtazapine 15 MG Tablet 7.5 MG PO (21:47)
[2024-07-30] MEDS: Acetaminophen 325 MG Tablet 650 MG PO (21:50)
[2024-07-31] VITALS (9 sets, daily range): BP systolic 114–132; BP diastolic 57–75; PULSE 57–76; RESP 16–22; TEMP 36.3–36.8; O2SAT 92–98; BMI 25.2
[2024-07-31] MEDS: Ipratropium/Albuterol Sulfate 3 ML AMPUL.NEB INHALATION ×4 (01:30→21:25)
[2024-07-31] MEDS: Piperacil/Tazobactam 3.375 GM in 0.9% Normal Saline (50mL MB+) 50 ML IV ×3 (05:17→23:07)
[2024-07-31] MEDS: Levothyroxine 25 MCG TABLET 12.5 MCG PO (05:18)
[2024-07-31] MEDS: Sucralfate 1 GM Tablet PO ×4 (05:18→22:58)
[2024-07-31] MEDS: Cilostazol 50 MG Tablet PO ×2 (05:19→16:48)
--- NOTE | 2024-07-31 06:58 | PCM.PN.INT ---
Assessment & Plan Assessment/Plan (1) Hypotension, chronic: (2) Fever: (3) Pneumonia: PLAN: Plan RECOMMENDATIONS: 1. Continue antibiotics to complete 7 days of therapy. 2. Decrease stress dose steroids to once daily. 3. If the patient remains hemodynamically stable tomorrow, stress dose steroids can be discontinued to baseline prednisone resumed. 4. Continue scheduled midodrine. 5. Continue appropriate DVT prophylaxis. 6. Encourage incentive spirometer use while in bed. 7. Will sign off at this time from a critical care perspective. Please call with any additional questions. IMPRESSIONS: 1. Sepsis The patient presented to the hospital with sepsis due to suspected pneumonia with acute sepsis related organ dysfunction as evidenced by persistent hypotension requiring vasopressor support. However, the patient does have chronic hypotension and is on scheduled midodrine on an outpatient basis. The patient has been weaned from vasopressor support. Empiric antibiotics will be continued. I would recommend that the patient complete a 7-day course of antibiotics. The patient is otherwise clinically stable. The patient stress dose steroids will be decreased to once daily today. If he remains hemodynamically stable, I would recommend discontinuation of stress dose steroids tomorrow and resumption of baseline prednisone dose. 2. History of breast CVA/PMR/history of coronary artery disease/chronic left foot wound/paroxysmal atrial fibrillation/hypothyroidism Complicates care, management, recovery and prognosis. Continue home medications as indicated. This note was generated with [employer] dictation software. It may contain incorrect words, spelling, and punctuation that were not noted in checking the note before signing. Subjective Subjective The patient was seen and examined at the bedside this morning. Events from the last 24 hours have been reviewed. The patient is currently afebrile, hemodynamically stable and maintaining appropriate oxygen saturations on room air. No overnight events were noted by the nursing staff. White blood cell count remains normal. Hemoglobin and platelet count are stable. Objective Data Objective Data The patient's most recent lab work, culture data and imaging studies have all been personally reviewed. Surface echocardiogram from June 2024 demonstrated an ejection fraction of 55%. Respiratory viral panel was negative. Strep and urine Legionella antigens were negative. Blood and urine cultures have not demonstrated any growth to date. Vital Signs: Vital Signs Temp Pulse Resp BP Pulse Ox O2 Del Method O2 Flow Rate 97.4 F L 71 20 H 117/58 L 98 Room Air 2 07/31/24 05:00 07/31/24 05:00 07/31/24 05:00 07/31/24 05:00 07/31/24 05:00 07/31/24 05:00 07/30/24 04:00 FiO2 28 07/28/24 16:55 Oxygen Flow Rate (L/min) 2 Oxygen Delivery Method Room Air Weight: 170 lb 10.205 oz Body Mass Index (BMI) 25.2 Intake & Output: Intake and Output for Last 24 Hours 07/29/24 07/30/24 07/31/24 23:59 23:59 23:59 Intake Total 819.65 / 820.13 805.69 / 805.69 140 / 140 Output Total 800 / 800 1150 / 1400 850 / 850 Balance 19.65 / 20.13 -344.31 / -594.31 -710 / -710 Lab / Micro Data Attestation: I reviewed the patient's lab results. 07/31/24 07:12 07/30/24 07:55 Labs: Laboratory Results - last 24 hr 07/30/24 07:55: WBC 7.8, RBC 3.22 L, Hgb 9.7 L, Hct 30.2 L, MCV 93.8, MCH 30.1, MCHC 32.1, RDW Std Deviation 45.5 H, RDW Coeff of [place] 13.2, Plt Count 330, MPV 9.9, Immature Gran % (Auto) 0.600, Neut % (Auto) 89.3 H, Lymph % (Auto) 4.3 L, [place] % (Auto) 5.6, Eos % (Auto) 0.1, Baso % (Auto) 0.1, Absolute Neuts (auto) 7.0, Absolute Lymphs (auto) 0.34 L, Nucleated RBC % 0, Sodium 139, Potassium 3.7, Chloride 105, Carbon Dioxide 26.0, Anion Gap 8, BUN 27 H, Creatinine 0.72, Estim Creat Clear Calc 68.74, Est GFR (MDRD) Af Amer 133, Est GFR (MDRD) Non-Af 110, BUN/Creatinine Ratio 37.3 H, Glucose 130 H, Calcium 8.3 L, Vancomycin Trough 14.7 Micro: Microbiology 07/28/24 11:20 Blood Culture (Wb) - Left Forearm Blood Culture - Preliminary No growth in 48 hours. 07/28/24 10:40 Blood Culture (Wb) - Left Forearm Blood Culture - Preliminary No growth in 48 hours. 07/28/24 11:45 Urine, Catheterized Urine Culture - Final Culture exhibits no growth. 07/28/24 19:40 Mucosa - Nasopharyngeal Respiratory Panel (PCR) - Final 07/28/24 11:45 Urine, Clean Catch Legionella Antigen - Final 07/28/24 11:45 Urine, Clean Catch Streptococcus pneumoniae Antigen (M - Final 07/28/24 11:20 Mucosa - Nose SARS-CoV-2, Influenza & RSV (PCR) - Final Physical Exam Const alert, oriented x3 and no apparent distress General Appearance: cooperative HEENT normocephalic and head/scalp atraumatic Eyes PERRL, EOMs intact bilaterally and conjunctivae normal Neck supple General: trachea midline Chest inspection of chest normal Resp normal respiratory effort Auscultation: diminished lung sounds; Negative for rales, rhonchi or wheezes Cardio regular rate and regular rhythm GI normal to inspection, nondistended, normoactive bowel sounds Extremity Extremity Narrative: Left lower extremity wound present on admission. General Extremity: Negative for edema Neuro CN's II-XII intact bilaterally and no focal motor deficits Psych cooperative and affect normal Charges/Coding Visit Charges Inpatient E&M: 99211 Subs Hosp L2
[2024-07-31 07:32] LABS: Absolute Lymphocyte Count 0.42 X10^3/uL (0.83-4.51); Absolute Neutrophil Count 5.1 X10^3/uL (2.0-7.7); Hematocrit 27.1 % (40-54); Hemoglobin 8.6 g/dL (13.0-16.5); Lymphocyte # 0.42 X10^3/ul (0.83-4.51); Lymphocyte % 6.9 % (19-41); Mean Corp Hgb Conc 31.7 g/dL (32-36); Mean Corpuscular Hgb 29.9 pg (27.0-32.0); Mean Corpuscular Volume 94.1 fL (80-94); Mean Platelet Vol. 9.7 fl (6.2-12.0); Monocyte# 0.55 X10^3/uL; NRBC Flagged by Analyzer 0 % (0-5); Neutrophil # 5.06 X10^3/uL (2.7-7.7); Neutrophil % 83.3 % (47-70); POSITIVE DIFFERENTIAL YES; Platelet Count 302 K/mm3 (150-450); RBC Distribution Width CV 13.1 % (11.6-14.6); RBC Distribution Width SD 44.8 fl (35.1-43.9); Red Blood Count 2.88 M/mm3 (4.6-6.2); White Blood Count 6.1 K/mm3 (4.4-11.0)
[2024-07-31 08:08] LABS: Anion Gap 6 (5-15); BUN 32 mg/dL (7-18); BUN/Creat Ratio 36.3 RATIO (10-20); Calcium,Total 8.4 mg/dL (8.5-10.1); Chloride 106 mmol/L (98-107); Creatinine, Serum 0.88 mg/dL (0.70-1.30); EST Glomerular Filtration Rate 87 mL/min (>60); Est Glom Filt Rate - Afr Amer 106 mL/min (>60); Estimated Creatinine Clearance 62.49 ml/min; Glucose 112 mg/dL (74-106); Potassium 3.4 mmol/L (3.5-5.1); Sodium Level 139 mmol/L (136-145)
[2024-07-31] MEDS: Gabapentin 100 MG Capsule PO ×2 (08:43→16:50)
[2024-07-31] MEDS: Enoxaparin 40 MG/0.4 ML Syringe SC (08:44)
[2024-07-31] MEDS: Midodrine HCl 5 MG Tablet 10 MG PO ×3 (08:44→16:48)
[2024-07-31] MEDS: Citalopram 10 MG Tablet PO (08:44)
[2024-07-31] MEDS: guaiFENesin 1,200 MG Tablet 1200 MG PO ×2 (08:44→22:58)
[2024-07-31] MEDS: Pantoprazole Sodium 40 MG Tablet PO (08:45)
[2024-07-31] MEDS: Tamoxifen 10 MG Tablet 100 MG PO (08:45)
[2024-07-31] MEDS: Finasteride 5 MG Tablet PO (08:45)
[2024-07-31] MEDS: Hydrocortisone Sod Succinate 100 MG/2 ML Vial 50 MG IV (08:46)
[2024-07-31] MEDS: tiZANidine HCl 2 MG Tablet PO ×2 (08:53→22:58)
--- NOTE | 2024-07-31 13:40 | CASEMGMT ---
Social Work Green sheet placed on chart for weekend return to [facility], along w/transport forms, should pt be medically ready on the weekend. AZAEL Sood
--- NOTE | 2024-07-31 14:06 | PN_ITS ---
Subjective Subjective Patient seen and examined. He states he feels much better today. He had no active complaints. He was lying comfortably in bed. Review of systems otherwise negative. I did broach possible discharge today but patient was not very confused and would like to stay 1 more day. He is on room air. Objective Data Objective Data Vital Signs: Vital Signs Temp Pulse Resp BP Pulse Ox O2 Del Method O2 Flow Rate 97.7 F L 76 18 122/63 H 92 Room Air 2 07/31/24 08:57 07/31/24 08:57 07/31/24 08:57 07/31/24 08:57 07/31/24 08:57 07/31/24 09:00 07/30/24 04:00 FiO2 28 07/28/24 16:55 Oxygen Flow Rate (L/min) 2 Oxygen Delivery Method Room Air Weight: 170 lb 10.205 oz Body Mass Index (BMI) 25.2 Intake & Output: Intake and Output for Last 24 Hours 07/29/24 07/30/24 07/31/24 23:59 23:59 23:59 Intake Total 819.65 / 820.13 805.69 / 805.69 190 / 190 Output Total 800 / 800 1150 / 1400 1850 / 1850 Balance 19.65 / 20.13 -344.31 / -594.31 -1660 / -1660 Lab / Micro Data 07/31/24 07:12 07/31/24 07:12 Labs: Laboratory Results - last 24 hr 07/31/24 07:12: WBC 6.1, RBC 2.88 L, Hgb 8.6 L, Hct 27.1 L, MCV 94.1 H, MCH 29.9, MCHC 31.7 L, RDW Std Deviation 44.8 H, RDW Coeff of [place] 13.1, Plt Count 302, MPV 9.7, Immature Gran % (Auto) 0.800, Neut % (Auto) 83.3 H, Lymph % (Auto) 6.9 L, [place] % (Auto) 9.0, Eos % (Auto) 0.0, Baso % (Auto) 0.0, Absolute Neuts (auto) 5.1, Absolute Lymphs (auto) 0.42 L, Nucleated RBC % 0, Sodium 139, P otassium 3.4 L, Chloride 106, Carbon Dioxide 28.0, Anion Gap 6, BUN 32 H, Creatinine 0.88, Estim Creat Clear Calc 62.49, Est GFR (MDRD) Af Amer 106, Est GFR (MDRD) Non-Af 87, BUN/Creatinine Ratio 36.3 H, Glucose 112 H, Calcium 8.4 L Micro: Microbiology 07/28/24 11:20 Blood Culture (Wb) - Left Forearm Blood Culture - Preliminary No growth in 48 hours. 07/28/24 10:40 Blood Culture (Wb) - Left Forearm Blood Culture - Preliminary No growth in 48 hours. 07/28/24 11:45 Urine, Catheterized Urine Culture - Final Culture exhibits no growth. 07/28/24 19:40 Mucosa - Nasopharyngeal Respiratory Panel (PCR) - Final 07/28/24 11:45 Urine, Clean Catch Legionella Antigen - Final 07/28/24 11:45 Urine, Clean Catch Streptococcus pneumoniae Antigen (M - Final 07/28/24 11:20 Mucosa - Nose SARS-CoV-2, Influenza & RSV (PCR) - Final Physical Exam Const alert Constitutional Narrative: still frail, but looks better today. HEENT normocephalic and head/scalp atraumatic Eyes PERRL and EOMs intact bilaterally Neck no lymphadenopathy, supple and no JVD Lymph Lymphatic: no lymphadenopathy noted and no lymphedema noted Resp Resp Narrative: diminished breath sounds bibasally, few crackles bibasally. On room air. tachypneic Cardio regular rate, regular rhythm, S1 normal heart sound, S2 normal heart sound and no murmurs GI normal to inspection, nondistended, normoactive bowel sounds, soft to palpation, non-tender and non-distended Extremity normal capillary refill, no clubbing, cyanosis or edema and no calf tenderness General Extremity: no tenderness to palpation of joints or extremities Skin General Skin Exam: no breakdown Neuro CN's II-XII intact bilaterally, no focal motor deficits and no sensory deficits noted Motor Exam: general weakness Psych thought process normal and cooperative Psych Narrative: frail and weak Assessment & Plan Assessment/Plan (1) Lethargy: (2) Pneumonia: (3) Fever: (4) Septic shock: PLAN: Plan #Septic shock due to left lower lobe pneumonia and probable UTI * Patient admitted with altered mental status the chest x-ray showed left lower lobe pneumonia and pleural effusion. COVID was negative. Respiratory panel also negative. * Patient's blood pressure was very low. He does have low blood pressure chronically but it was much lower at this time he had to be started on Levophed. * Now off Levophed. MAP target changed to 60 due to his chronic low blood pressure * He takes steroids chronically and so was started on stress dose steroids as well as secondary adrenal insufficiency could be contributing to the hypotension * On IV vancomycin and Zosyn. Critical care on board. * Breathing treatments bronchodilators. Titrate oxygen to maintain saturation above 90%. * Also on midodrine * Of note urinalysis showed 3+ bacteria. Urine cultures negative. * #Anemia: * Hemoglobin was 9.9 and dropped to 8.4. Was 9.7 yesterday and is 8.6 today * Will monitor closely. He does have a history of dysphagia and duodenal ulcers. So if anemia worsens, will consider getting GI consult also DC Lovenox. * Currently on PPI * #Hypokalemia: Potassium is 3.4. Will replace and trend. #Right breast cancer * On tamoxifen. Recently diagnosed. Also has a right chest wall mass with lymphadenopathy. Follow-up with surgeon outpatient basis for biopsy. #Suspected polymyalgia rheumatica * Had been on prednisone chronically for this. Now on stress dose steroids due to the hypotension. * #History of CAD: On statin. Not on antiplatelets due to recent endoscopy which showed esophageal and duodenal ulcers. #History of peripheral artery disease * Previously had angioplasty to the left peroneal artery in October 2021. On statin. Not on antiplatelets on account of esophageal and duodenal ulcers as above. #Paroxysmal A-fib: Usually bradycardic. Not anticoagulated. No rate control necessary due to bradycardia. 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 Charges/Coding Visit Charges Inpatient E&M: 02478 Subs Hosp L2
[2024-07-31] MEDS: Ensure Plus High Protein 120 ML LIQUID PO (14:29)
[2024-07-31] MEDS: Potassium Chloride Oral Tablet 20 MEQ 40 MEQ PO (14:35)
[2024-07-31] MEDS: Acetaminophen 325 MG Tablet 650 MG PO (22:58)
[2024-07-31] MEDS: Atorvastatin Calcium 20 MG Tablet PO (22:58)
[2024-07-31] MEDS: Mirtazapine 15 MG Tablet 7.5 MG PO (22:59)
[2024-08-01 04:20] VITALS: BP 130/67; PULSE 72; RESP 18; TEMP 36.6; O2SAT 94
[2024-08-01 04:42] VITALS: BMI 26.5
[2024-08-01] MEDS: Cilostazol 50 MG Tablet PO (06:05)
[2024-08-01] MEDS: Piperacil/Tazobactam 3.375 GM in 0.9% Normal Saline (50mL MB+) 50 ML IV (06:05)
[2024-08-01] MEDS: Levothyroxine 25 MCG TABLET 12.5 MCG PO (06:05)
[2024-08-01] MEDS: Sucralfate 1 GM Tablet PO ×2 (06:05→10:24)
[2024-08-01 06:09] LABS: Absolute Lymphocyte Count 1.09 X10^3/uL (0.83-4.51); Absolute Neutrophil Count 4.3 X10^3/uL (2.0-7.7); Basophil# 0.01 X10^3/uL; Basophil% 0.2 % (0-1); Hematocrit 27.2 % (40-54); Hemoglobin 8.6 g/dL (13.0-16.5); Lymphocyte # 1.09 X10^3/ul (0.83-4.51); Lymphocyte % 17.1 % (19-41); Mean Corp Hgb Conc 31.6 g/dL (32-36); Mean Corpuscular Hgb 29.9 pg (27.0-32.0); Mean Corpuscular Volume 94.4 fL (80-94); Mean Platelet Vol. 9.9 fl (6.2-12.0); Monocyte# 0.86 X10^3/uL; Monocyte% 13.5 % (0-10); NRBC Flagged by Analyzer 0 % (0-5); Neutrophil # 4.31 X10^3/uL (2.7-7.7); Neutrophil % 67.6 % (47-70); Platelet Count 311 K/mm3 (150-450); RBC Distribution Width SD 44.8 fl (35.1-43.9); Red Blood Count 2.88 M/mm3 (4.6-6.2); White Blood Count 6.4 K/mm3 (4.4-11.0)
[2024-08-01] MEDS: Ipratropium/Albuterol Sulfate 3 ML AMPUL.NEB INHALATION ×2 (06:40→12:53)
[2024-08-01 07:03] LABS: Anion Gap 5 (5-15); BUN 28 mg/dL (7-18); BUN/Creat Ratio 36.1 RATIO (10-20); Chloride 107 mmol/L (98-107); Creatinine, Serum 0.78 mg/dL (0.70-1.30); EST Glomerular Filtration Rate 101 mL/min (>60); Est Glom Filt Rate - Afr Amer 123 mL/min (>60); Estimated Creatinine Clearance 68.74 ml/min; Glucose 81 mg/dL (74-106); Potassium 3.6 mmol/L (3.5-5.1); Sodium Level 140 mmol/L (136-145)
[2024-08-01 07:14] VITALS: PULSE 68; RESP 18; O2SAT 93
[2024-08-01] MEDS: 0.9% Saline Lock 10 ML Syringe IV (08:56)
[2024-08-01] MEDS: Hydrocortisone Sod Succinate 100 MG/2 ML Vial 50 MG IV (08:57)
[2024-08-01] MEDS: Citalopram 10 MG Tablet PO (08:57)
[2024-08-01] MEDS: Tamoxifen 10 MG Tablet 100 MG PO (08:57)
[2024-08-01] MEDS: Pantoprazole Sodium 40 MG Tablet PO (08:57)
[2024-08-01] MEDS: Finasteride 5 MG Tablet PO (08:57)
[2024-08-01] MEDS: guaiFENesin 1,200 MG Tablet 1200 MG PO (08:57)
[2024-08-01] MEDS: Enoxaparin 40 MG/0.4 ML Syringe SC (08:58)
[2024-08-01] MEDS: Gabapentin 100 MG Capsule PO (08:58)
[2024-08-01] MEDS: Midodrine HCl 5 MG Tablet 10 MG PO ×2 (08:58→12:37)
[2024-08-01 10:22] VITALS: BP 119/63; PULSE 80; RESP 19; TEMP 36.6; O2SAT 93
[2024-08-01] MEDS: tiZANidine HCl 2 MG Tablet PO (10:23)
--- NOTE | 2024-08-01 13:04 | TREXTCAR_ITS ---
Diet Diet Order/Speech Therapy: 07/28/24 18:24 Diet: Regular - General Food consistency:: Regular Liquid Consistency:: Regular/Thin Type of Dietary Supplement:: Boaz Diet Comments: Boaz w/breakfast and dinner Routine Orders/Code Status Enema Type: Fleetz Enema Frequency: Daily PRN Suppository Type: Dulcolax 10mg Suppository Frequency: Daily PRN DC O2, CPAP, BIPAP needs Home O2 Discharge instructions: No Wound(s) rt breast: Wound Type: scabbed area from breast biopsy R middle toe: Wound Type: dry eschar Both hands: Wound Type: Abrasion BLE: Wound Type: Abrasion L posterior tibia: Wound Type: Abrasion Coccyx: Wound Type: pressure/shear Dressing Change: Triad with foam dressing L Heel: Wound Type: Pressure Injury Dressing Change: dry, well padded dressing Bilat elbows: Wound Type: scabbed over abrasions left Achilles area: Wound Type: nonhealing wound Dressing Change: AntiMicrobial (Aquacel AG, etc) Therapies Weight Bearing: Weight bearing as tolerated Physical Therapy: Eval and Treat Occupational Therapy: Eval and Treat Problem/Diagnosis (1) Lethargy: Status: Acute Code(s): R53.83 - Other fatigue (2) Pneumonia: Status: Acute Code(s): J18.9 - Pneumonia, unspecified organism (3) Fever: Status: Acute Code(s): R50.9 - Fever, unspecified (4) Septic shock: Status: Acute Code(s): A41.9 - Sepsis, unspecified organism; R65.21 - Severe sepsis with septic shock Plan #Septic shock due to left lower lobe pneumonia and probable UTI * Patient admitted with altered mental status the chest x-ray showed left lower lobe pneumonia and pleural effusion. COVID was negative. Respiratory panel also negative. * Patient's blood pressure was very low. He does have low blood pressure chroni cyndie but it was much lower at this time he had to be started on Levophed. * Now off Levophed. MAP target changed to 60 due to his chronic low blood pressure * He takes steroids chronically and so was started on stress dose steroids as well as secondary adrenal insufficiency could be contributing to the hypotension * On IV vancomycin and Zosyn. Critical care on board. * Breathing treatments bronchodilators. Titrate oxygen to maintain saturation above 90%. * Also on midodrine * Of note urinalysis showed 3+ bacteria. Urine cultures negative. * #Anemia: * Hemoglobin was 9.9 and dropped to 8.4. Was 9.7 yesterday and is 8.6 today * Will monitor closely. He does have a history of dysphagia and duodenal ulcers. So if anemia worsens, will consider getting GI consult also DC Lovenox. * Currently on PPI * #Hypokalemia: Potassium is 3.4. Will replace and trend. #Right breast cancer * On tamoxifen. Recently diagnosed. Also has a right chest wall mass with lymphadenopathy. Follow-up with surgeon outpatient basis for biopsy. #Suspected polymyalgia rheumatica * Had been on prednisone chronically for this. Now on stress dose steroids due to the hypotension. * #History of CAD: On statin. Not on antiplatelets due to recent endoscopy which showed esophageal and duodenal ulcers. #History of peripheral artery disease * Previously had angioplasty to the left peroneal artery in October 2021. On s tatin. Not on antiplatelets on account of esophageal and duodenal ulcers as above. #Paroxysmal A-fib: Usually bradycardic. Not anticoagulated. No rate control necessary due to bradycardia. 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 Allergies/Procedures Done in Hospital Allergies morphine Adverse Reaction (Intermediate, Verified 07/28/24 10:28) Other Per daughter pt became confused and saying off the wall stuff. Took days to go back to normal Procedures: None Type of Care/Length of Stay Estimated LOS: Convalescent Care Less Than 30 days Type of Care Needed: Skilled Rehab Potential: Fair Prognosis: Fair Additional Orders/Day of Discharge Day of Discharge: 08/01/24 Dietary and Speech Recommendations Dietitian Recommendations/Changes: Continue regular diet. Will order 120ml ensure plus high protein 4x daily with medpass. Will order boaz BID with breakfast and dinner to promote wound healing. Adjust ONS as needed to optimize PO as tolerated. May need to consider enteral nutrition support if PO remains poor and inadequate and/or weight continues to decline. Reviewed and approved by Ginny Guerra RDN, ARIANNA. Discharge Plan Admission Admit Date/Time: 07/28/24 15:03 Primary Reason for Your Visit: sepsis due to pneumonia and UTI Attending Provider: Gerri Sanchez Primary Care Provider: Ankur Medina Consulting Providers: Dayanara Rider Instructions Patient Instructions: ED Pneumonia (Adult) Discharge Orders/Prescriptions Prescriptions: New cefdinir 300 mg capsule 300 mg PO BID Qty: 6 0RF doxycycline hyclate 100 mg tablet 100 mg PO BID Qty: 6 0RF Continued finasteride [Proscar] 5 mg tablet 5 mg PO DAILY cilostazol 50 mg tablet 50 mg PO BID tizanidine 2 mg tablet 2 mg PO QHS PRN (Reason: muscle spasticity) potassium chloride 20 mEq tablet,ER particles/crystals 20 meq PO QDAY citalopram 10 mg tablet 10 mg PO QDAY tamoxifen 20 mg tablet 100 mg PO QDAY 30 Days Qty: 450 3RF acetaminophen 500 mg tablet 1,000 mg PO BID ascorbic acid (vitamin C) 500 mg Tablet 500 mg PO 1200 Qty: 1 0RF ferrous sulfate [FeroSul] 325 mg (65 mg iron) Tablet 325 mg PO DAILY@1200 Qty: 1 0RF mirtazapine 7.5 mg tablet 7.5 mg PO QHS ammonium lactate 12 % cream 1 applic topical QHS gabapentin 100 mg capsule 100 mg PO BIDCM Qty: 30 0RF pantoprazole [Protonix] 40 mg tablet,delayed release (DR/EC) 40 mg PO DAILY Qty: 60 0RF atorvastatin 20 mg tablet 20 mg PO QHS sucralfate [Carafate] 100 mg/mL suspension 1 g PO 4X/DAY Rx Instructions: BEFORE MEALS AND AT BEDTIME hydrocortisone 2.5 % cream 1 applic topical BID Rx Instructions: apply to bilat hands levothyroxine 25 mcg Tablet 12.5 mcg PO DAILY@0600 Qty: 0 0RF cyanocobalamin (vitamin B-12) 1,000 mcg capsule 1,000 mcg PO DAILY Boaz (with collagen) 7-7-1.5 gram Powder In Packet 1 packet PO BIDCM Qty: 0 0RF melatonin 3 mg Tablet 3 mg PO QHS PRN PRN (Reason: Insomnia) Qty: 0 0RF ondansetron 4 mg tablet,disintegrating 4 mg PO Q8H PRN PRN (Reason: Nausea) Qty: 10 0RF Lactobacillus acidophilus 250 million cell capsule 250 mmu cells PO 4X/DAY Boaz 7-7-1.5 gram powder in packet 1 ea PO BID prednisone 10 mg tablet 10 mg PO DAILY midodrine 5 mg Tablet 5 mg PO TIDCM Rx Instructions: Hold for SBP > 130 Referrals / Follow Up: Ankur Medina DO [Primary Care Provider] - Within 1 Week Disposition Disposition (needs filled in before D/C Order can be placed): [facility]
--- NOTE | 2024-08-01 13:05 | DS.PCM_ITS ---
Providers Date of Admission: 07/28/24 Date of Discharge: 08/01/24 Primary Care Physician: Dr. Ankur Medina, DO Consultations 07/28/24 18:38 Consult: Electromagnet Crane Operator / Pulmonary Medicine Routine Consulting Provider: Intensivists/Pulmonary Med Reason for Consult: Hypoxic on BiPAP, borderline blood pressure post fluids, chronic component EMERGENT Consult: No MD Notified: Yes Date Notified: 07/28/24 Time Notified: 18:53 Method of Notification: Text 07/28/24 19:18 Consult: Onc/Wound/relationship manager Routine Comment: Reason for Consult:: multiple wounds, seen previously Reason For Visit: PNEUMONIA, FEVER, MENTAL STATUS CHANGE Diagnosis Discharge Diagnosis (1) Lethargy: Status: Acute Code(s): R53.83 - Other fatigue (2) Pneumonia: Status: Acute Code(s): J18.9 - Pneumonia, unspecified organism (3) Fever: Status: Acute Code(s): R50.9 - Fever, unspecified (4) Septic shock: Status: Acute Code(s): A41.9 - Sepsis, unspecified organism; R65.21 - Severe sepsis with septic shock Plan #Septic shock due to left lower lobe pneumonia and probable UTI * Patient admitted with altered mental status the chest x-ray showed left lower lobe pneumonia and pleural effusion. COVID was negative. Respiratory panel also negative. * Patient's blood pressure was very low. He does have low blood pressure chronically but it was much lower at this time he had to be started on Levophed. * Now off Levophed. MAP target changed to 60 due to his chronic low blood pressure * He takes steroids chronically and so was started on stress dose steroids as well as secondary adrenal insufficiency could be contributing to the hypotension * On IV vancomycin and Zosyn. Critical care on board. * Breathing treatments bronchodilators. Titrate oxygen to maintain saturation above 90%. * Also on midodrine * Of note urinalysis showed 3+ bacteria. Urine cultures negative. * #Anemia: * Hemoglobin was 9.9 and dropped to 8.4. Was 9.7 yesterday and is 8.6 today * Will monitor closely. He does have a history of dysphagia and duodenal ulcers. So if anemia worsens, will consider getting GI consult also DC Lovenox. * Currently on PPI * #Hypokalemia: Potassium is 3.4. Will replace and trend. #Right breast cancer * On tamoxifen. Recently diagnosed. Also has a right chest wall mass with lymphadenopathy. Follow-up with surgeon outpatient basis for biopsy. #Suspected polymyalgia rheumatica * Had been on prednisone chronically for this. Now on stress dose steroids due to the hypotension. * #History of CAD: On statin. Not on antiplatelets due to recent endoscopy which showed esophageal and duodenal ulcers. #History of peripheral artery disease * Previously had angioplasty to the left peroneal artery in October 2021. On statin. Not on antiplatelets on account of esophageal and duodenal ulcers as above. #Paroxysmal A-fib: Usually bradycardic. Not anticoagulated. No rate control necessary due to bradycardia. 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 Medications at Discharge Home Medications finasteride 5 mg tablet (Proscar) 5 mg PO DAILY PROSTATES 07/18/17 cilostazol 50 mg tablet 50 mg PO BID vasodilator 02/02/22 ascorbic acid (vitamin C) 500 mg tablet 500 mg PO 1200 vitamin #1 TAB 07/25/23 ferrous sulfate 325 mg (65 mg iron) tablet (FeroSul) 325 mg PO DAILY@1200 supplement #1 TAB 07/25/23 ammonium lactate 12 % topical cream 1 applic topical QHS Achalasia of cardia 11/30/23 mirtazapine 7.5 mg tablet 7.5 mg PO QHS mental health 11/30/23 gabapentin 100 mg capsule 100 mg PO BIDCM nerve pain #30 caps 12/04/23 pantoprazole 40 mg tablet,delayed release (Protonix) 40 mg PO DAILY reflux #60 tabs 02/12/24 atorvastatin 20 mg tablet 20 mg PO QHS cholesterol 02/25/24 hydrocortisone 2.5 % topical cream 1 applic topical BID skin 02/25/24 sucralfate 100 mg/mL oral suspension (Carafate) 1 g PO 4X/DAY GERD 02/25/24 levothyroxine 25 mcg tablet 12.5 mcg (1/2 x 25 mcg) PO DAILY@0600 thyroid #0 tabs 02/27/24 ondansetron 4 mg disintegrating tablet 4 mg PO Q8H PRN PRN Nausea #10 tabs 05/23/24 citalopram 10 mg tablet 10 mg PO QDAY Depression 06/15/24 potassium chloride 20 mEq tablet,extended release(part/cryst) 20 meq PO QDAY supplement 06/23/24 tizanidine 2 mg tablet 2 mg PO QHS PRN muscle spasticity 06/23/24 acetaminophen 500 mg tablet 1,000 mg PO BID arthritis 06/25/24 tamoxifen 20 mg tablet 100 mg (5 x 20 mg) PO QDAY malignant neoplasm of skin 30 days #450 tabs 07/08/24 cyanocobalamin (vitamin B-12) 1,000 mcg capsule 1,000 mcg PO DAILY Vitamin B-12 deficiency anemia 07/11/24 arginine 7 gram-glutam 7 gram-CaHMB 1.5 [id number] oral pwd pkt (Boaz (with collagen)) 1 packet PO BIDCM #0 ea 07/15/24 melatonin 3 mg tablet 3 mg PO QHS PRN PRN Insomnia #0 tabs 07/15/24 Lactobacillus acidophilus 250 million cell capsule 250 mmu cells PO 4X/DAY probiotic 07/28/24 arginine 7 gram-glutamine 7 gram-calcium HMB 1.5 gram oral powder pack (Boaz) 1 ea PO BID wound healing 07/28/24 midodrine 5 mg tablet 5 mg PO TIDCM blood pressure 07/28/24 prednisone 10 mg tablet 10 mg PO DAILY steroid 07/28/24 cefdinir 300 mg capsule 300 mg PO BID #6 caps 08/01/24 doxycycline hyclate 100 mg tablet 100 mg PO BID #6 tabs 08/01/24 Hospital Course Operations None Procedures None Summary of Care Provided Minutes Spent on Discharge: 55 Hospital Course: Patient is an 84-year-old male with extensive past medical history as outlined was admitted through the ED on 07/28/2024 with complaint of altered mental status as well as fever. His temperature was up to 102 Fahrenheit and patient's blood pressure was also low. He did have chronically low blood pressure and was on midodrine but this time was lower than usual. Chest x-ray was indicated of pneumonia. According to the daughter patient had been tired and not really waking up to answer questions. They then noted he spiked a fever so they brought him into the ED. He was started on broad-spectrum antibiotics and IV fluids and admitted to the ICU. Critical care was consulted. Patient required Levophed on account of the septic shock. He was eventually weaned off of Levophed. His blood cultures were negative. Urine cultures were also negative. Patient was transferred out of the ICU and improved. He remained stable and was discharged to care home facility on 08/01/2024. He was discharged on p.o. cefdinir and doxycycline for 3-day course to complete a 7-day course of antibiotics. He was continued on his midodrine and follow-up with his primary care doctor within 1 to 2 weeks. Patient seen and examined prior to discharge. He felt much better and had no complaints. He had an uneventful night. Review of systems otherwise negative. Labs and vitals reviewed. Home medication reviewed and reconciled. Physical Exam Const alert and oriented x3 Constitutional Narrative: still frail, but looks much better than when he came in. General Appearance: cooperative and lethargic Orientation / Consciousness: awake Exam Limitations: no limitations HEENT normocephalic, head/scalp atraumatic, hearing grossly normal bilaterally and moist oral mucous membranes Mouth: oral and palatal mucosa normal Eyes PERRL, EOMs intact bilaterally and conjunctivae normal Neck no lymphadenopathy, supple and no JVD Lymph Lymphatic: no lymphadenopathy noted and no lymphedema noted Resp Resp Narrative: diminished breath sounds bibasally, few crackles bibasally. On room air. Cardio regular rate, regular rhythm, S1 normal heart sound, S2 normal heart sound and no murmurs GI normal to inspection, nondistended, normoactive bowel sounds, soft to palpation, non-tender and non-distended Extremity normal to inspection, normal capillary refill, no clubbing, cyanosis or edema and no calf tenderness General Extremity: no tenderness to palpation of joints or extremities Skin no rashes or lesions noted Skin Narrative: skin over knuckles dry and peeling Neuro oriented x3, CN's II-XII intact bilaterally, no focal motor deficits and no sensory deficits noted Sensorium / Orientation: awake Motor Exam: general weakness Psych thought process normal and cooperative Psych Narrative: frail and weak Mood & Affect: flat affect Weight / BMI Weight Weight: 179 lb 10.828 oz Body Mass Index (BMI) 26.5 ABG / Lab / Microbiology Data 08/01/24 04:39 08/01/24 04:39 Laboratory: Laboratory Results - last 24 hr 08/01/24 04:39: WBC 6.4, RBC 2.88 L, Hgb 8.6 L, Hct 27.2 L, MCV 94.4 H, MCH 29.9, MCHC 31.6 L, RDW Std Deviation 44.8 H, RDW Coeff of [place] 13.0, Plt Count 311, MPV 9.9, Immature Gran % (Auto) 1.600 H, Neut % (Auto) 67.6, Lymph % (Auto) 17.1 L, Duval % (Auto) 13.5 H, Eos % (Auto) 0.0, Baso % (Auto) 0.2, Absolute Neuts (auto) 4.3, Absolute Lymphs (auto) 1.09, Nucleated RBC % 0, Sodium 140, Potassium 3.6, Chloride 107, Carbon Dioxide 28.0, Anion Gap 5, BUN 28 H, Creatinine 0.78, Estim Creat Clear Calc 68.74, Est GFR (MDRD) Af Amer 123, Est GFR (MDRD) Non-Af 101, BUN/Creatinine Ratio 36.1 H, Glucose 81, Calcium 8.0 L Microbiology: Microbiology 07/28/24 11:20 Blood Culture (Wb) - Left Forearm Blood Culture - Preliminary No growth in 48 hours. 07/28/24 10:40 Blood Culture (Wb) - Left Forearm Blood Culture - Preliminary No growth in 48 hours. 07/28/24 11:45 Urine, Catheterized Urine Culture - Final Culture exhibits no growth. 07/28/24 19:40 Mucosa - Nasopharyngeal Respiratory Panel (PCR) - Final 07/28/24 11:45 Urine, Clean Catch Legionella Antigen - Final 07/28/24 11:45 Urine, Clean Catch Streptococcus pneumoniae Antigen (M - Final 07/28/24 11:20 Mucosa - Nose SARS-CoV-2, Influenza & RSV (PCR) - Final D/C Instructions Discharge Diet: Low fat / Low cholesterol Discharge Activity: Return to Normal Activity Weight Bearing Status: Weight bearing as tolerated Call your doctor if you observe: Fever of 101 or Higher, Shortness of breath, Dizziness and Chest pain DC O2, CPAP, BIPAP Needs PSN CPAP & BiPAP: BiPAP & CPAP Settings per PSN Mode BiPAP 07/28/24 16:55 Bipap Delivery Device Face Mask 07/28/24 16:55 BiPAP Inspiratory Pressure 16 07/28/24 16:55 BiPAP Expiratory Pressure 8 07/28/24 16:55 BiPAP Rate 12 07/28/24 16:55 Fraction of Inspired Oxygen ( 28 07/28/24 16:55 FIO2) Home O2 Discharge instructions: No DC home with Oxygen: No Meaningful Use Info Meaningful Use Meaningful Use Diagnoses (Choose all that apply): None applicable Ischemic Stroke Statin Dosing Therapy Reference: STATIN DOSE THERAPY REFERENCE: * Patients > 75 years receive moderate or high dose statin therapy. * Patients 75 years or YOUNGER should receive HIGH intensity statin dose unless contraindicated. You will be required to document reason for non-treatment if statin daily dose does not meet guidelines. HIGH DOSE STATIN THERAPY DAILY Atorvastatin > than or = to 40 mg Rosuvastatin > than or = to 20 mg Amlodipine + Atorvastatin > than or = to 2.5/40 mg Ezetimibe + Simvastatin 10/80 mg Simvastatin 80mg Discharge Plan Admission Admit Date/Time: 07/28/24 15:03 Primary Reason for Your Visit: sepsis due to pneumonia and UTI Attending Provider: Gerri Sanchez Primary Care Provider: Ankur Medina Consulting Providers: Dayanara Rider Instructions Patient Instructions: ED Pneumonia (Adult) Discharge Orders/Prescriptions Prescriptions: New cefdinir 300 mg capsule 300 mg PO BID Qty: 6 0RF doxycycline hyclate 100 mg tablet 100 mg PO BID Qty: 6 0RF Continued finasteride [Proscar] 5 mg tablet 5 mg PO DAILY cilostazol 50 mg tablet 50 mg PO BID tizanidine 2 mg tablet 2 mg PO QHS PRN (Reason: muscle spasticity) potassium chloride 20 mEq tablet,ER particles/crystals 20 meq PO QDAY citalopram 10 mg tablet 10 mg PO QDAY tamoxifen 20 mg tablet 100 mg PO QDAY 30 Days Qty: 450 3RF acetaminophen 500 mg tablet 1,000 mg PO BID ascorbic acid (vitamin C) 500 mg Tablet 500 mg PO 1200 Qty: 1 0RF ferrous sulfate [FeroSul] 325 mg (65 mg iron) Tablet 325 mg PO DAILY@1200 Qty: 1 0RF mirtazapine 7.5 mg tablet 7.5 mg PO QHS ammonium lactate 12 % cream 1 applic topical QHS gabapentin 100 mg capsule 100 mg PO BIDCM Qty: 30 0RF pantoprazole [Protonix] 40 mg tablet,delayed release (DR/EC) 40 mg PO DAILY Qty: 60 0RF atorvastatin 20 mg tablet 20 mg PO QHS sucralfate [Carafate] 100 mg/mL suspension 1 g PO 4X/DAY Rx Instructions: BEFORE MEALS AND AT BEDTIME hydrocortisone 2.5 % cream 1 applic topical BID Rx Instructions: apply to bilat hands levothyroxine 25 mcg Tablet 12.5 mcg PO DAILY@0600 Qty: 0 0RF cyanocobalamin (vitamin B-12) 1,000 mcg capsule 1,000 mcg PO DAILY Boaz (with collagen) 7-7-1.5 gram Powder In Packet 1 packet PO BIDCM Qty: 0 0RF melatonin 3 mg Tablet 3 mg PO QHS PRN PRN (Reason: Insomnia) Qty: 0 0RF ondansetron 4 mg tablet,disintegrating 4 mg PO Q8H PRN PRN (Reason: Nausea) Qty: 10 0RF Lactobacillus acidophilus 250 million cell capsule 250 mmu cells PO 4X/DAY Boaz 7-7-1.5 gram powder in packet 1 ea PO BID prednisone 10 mg tablet 10 mg PO DAILY midodrine 5 mg Tablet 5 mg PO TIDCM Rx Instructions: Hold for SBP > 130 Referrals / Follow Up: Ankur Medina DO [Primary Care Provider] - Within 1 Week Disposition Disposition (needs filled in before D/C Order can be placed): [facility] Charges/Coding Visit Charges Inpatient E&M: 64041 Disch Hosp >30min
[2024-08-01 13:12] VITALS: PULSE 72; RESP 20
[2024-08-01 14:35] VITALS: BP 120/63; PULSE 56; RESP 16; TEMP 36.9; O2SAT 94
--- NOTE | 2024-08-01 14:54 | NURSING ---
Report called to JODEE Chávez. Physicians here at this time to transport patient.
== END 2024-08-01 14:48 | disposition skilled nursing facility (03) | DRG 871 ==
LOC: ED 14:08 → ICU 15:29 → PCU 07-31 19:33
PROVIDERS: Admitting Provider Internal Medicine; Emergency Provider Emergency Medicine; PCP Family Medicine; Visit Provider Student in an Organized Health Care Education/Training Program
DX: A41.9 Sepsis, unspecified organism (principal); J18.9 Pneumonia, unspecified organism; R65.21 Severe sepsis with septic shock; K22.10 Ulcer of esophagus without bleeding; E27.40 Unspecified adrenocortical insufficiency; N17.9 Acute kidney failure, unspecified; N13.8 Other obstructive and reflux uropathy; N39.0 Urinary tract infection, site not specified; K26.9 Duodenal ulcer, unspecified as acute or chronic, without hemorrhage or perforation; C50.921 Malignant neoplasm of unspecified site of right male breast; D64.9 Anemia, unspecified; Z66 Do not resuscitate; I48.0 Paroxysmal atrial fibrillation; G62.9 Polyneuropathy, unspecified; I73.9 Peripheral vascular disease, unspecified; F32.A Depression, unspecified; E03.9 Hypothyroidism, unspecified; I10 Essential (primary) hypertension; M35.3 Polymyalgia rheumatica; L97.529 Non-pressure chronic ulcer of other part of left foot with unspecified severity; E87.6 Hypokalemia; I25.10 Atherosclerotic heart disease of native coronary artery without angina pectoris; E78.5 Hyperlipidemia, unspecified; I95.89 Other hypotension; K21.9 Gastro-esophageal reflux disease without esophagitis; F41.9 Anxiety disorder, unspecified; R09.02 Hypoxemia; Z87.891 Personal history of nicotine dependence; Z85.3 Personal history of malignant neoplasm of breast; Z95.5 Presence of coronary angioplasty implant and graft; R59.0 Localized enlarged lymph nodes; N40.1 Benign prostatic hyperplasia with lower urinary tract symptoms; Z86.73 Personal history of transient ischemic attack (TIA), and cerebral infarction without residual deficits; Z11.52 Encounter for screening for COVID-19; Z79.810 Long term (current) use of selective estrogen receptor modulators (SERMs); R53.83 Other fatigue
CPT/HCPCS: 36415; 36600; 71045; 80048; 80053; 80202; 81001; 82803; 83605; 84443; 85025; 85610; 85730; 87040; 87086; 87449; 87631; 87633; 93005; 94002; 94640; 94668; 94762; 97163; 97166; 97530; 97535; 99285; 99406; P9612; A4216; J0744

== ENCOUNTER 2024-08-11 22:43 | Emergency (ER) | payer MEDICARE, BC, SELFPAY ==
[2024-08-11 22:44] VITALS: PULSE 90; RESP 18; TEMP 37.6; O2SAT 85; BMI 25.3
[2024-08-11 22:49] VITALS: BP 116/83; PULSE 83; RESP 17; O2SAT 91
[2024-08-11 22:50] VITALS: O2SAT 95
[2024-08-11 22:53] VITALS: BP 115/63; PULSE 83; RESP 19; TEMP 37.6; O2SAT 93
[2024-08-11] MEDS: proCHLORPERazine 10 MG/2 ML Vial 5 MG IV (23:49)
[2024-08-11] MEDS: 0.9% Normal Saline (1000mL) 1,000 ML 999 ML IV (23:50)
[2024-08-11 23:57] VITALS: BP 117/70; PULSE 89; RESP 20; TEMP 37.5; O2SAT 95
[2024-08-12] VITALS (13 sets, daily range): BP systolic 86–121; BP diastolic 45–80; PULSE 59–102; RESP 14–30; TEMP 36.8–38.7; O2SAT 83–98
[2024-08-12 00:26] LABS: AST(SGOT) 37 U/L (15-37); Alanine Aminotransfer ALT/SGPT 37 U/L (16-61); Albumin, Serum 2.3 g/dL (3.2-5.0); Alkaline Phosphatase 87 U/L (45-117); Anion Gap 1 (5-15); BUN 38 mg/dL (7-18); BUN/Creat Ratio 41.3 RATIO (10-20); Bilirubin, Direct 0.18 mg/dL (0.00-0.30); Calcium,Total 8.8 mg/dL (8.5-10.1); Chloride 102 mmol/L (98-107); Creatinine, Serum 0.92 mg/dL (0.70-1.30); EST Glomerular Filtration Rate 83 mL/min (>60); Est Glom Filt Rate - Afr Amer 101 mL/min (>60); Estimated Creatinine Clearance 59.77 ml/min; Globulin 5.3 g/dL (2.2-4.2); Glucose 104 mg/dL (74-106); Lipase 49 U/L (73-393); Potassium 5.9 mmol/L (3.5-5.1); Protein, Total 7.6 g/dL (6.4-8.2); Sodium Level 137 mmol/L (136-145)
[2024-08-12] MEDS: Acetaminophen 500 MG Tablet 1000 MG PO (00:55)
[2024-08-12 01:23] LABS: Absolute Neutrophil Count 11.7 X10^3/uL (2.0-7.7); Basophil# 0.02 X10^3/uL; Basophil% 0.2 % (0-1); Eosinophil# 0.05 X10^3/uL; Eosinophils% 0.4 % (0-5); Hematocrit 38.5 % (40-54); Hemoglobin 12.1 g/dL (13.0-16.5); Lymphocyte % 2.4 % (19-41); Mean Corp Hgb Conc 31.4 g/dL (32-36); Mean Corpuscular Hgb 30.3 pg (27.0-32.0); Mean Corpuscular Volume 96.3 fL (80-94); Mean Platelet Vol. 11.2 fl (6.2-12.0); Monocyte# 0.55 X10^3/uL; Monocyte% 4.4 % (0-10); NRBC Flagged by Analyzer 0 % (0-5); Neutrophil # 11.67 X10^3/uL (2.7-7.7); Neutrophil % 92.2 % (47-70); POSITIVE DIFFERENTIAL YES; Platelet Count 348 K/mm3 (150-450); RBC Distribution Width CV 13.2 % (11.6-14.6); RBC Distribution Width SD 47.3 fl (35.1-43.9); White Blood Count 12.6 K/mm3 (4.4-11.0)
--- NOTE | 2024-08-12 01:27 | CT_ITS ---
PROCEDURE: ABDOMEN/PELVIS W IV CONT ONLY REASON FOR EXAM: 84-year-old male, sudden onset diarrhea. TECHNIQUE: Abdomen and pelvis CT with intravenous contrast. No oral contrast. IV CONTRAST: [id number] COMPARISON: CT abdomen pelvis 05/27/2024. FINDINGS: Lung bases: Loculated left lower lobe fluid collection with adjacent atelectasis. Coronary artery calcifications. Liver: The liver is normal in size without focal hepatic mass. The major portal veins are patent. No biliary ductal dilation. Gallbladder: No radiopaque stones within the gallbladder. Spleen: Unremarkable. Pancreas: Atrophic. Adrenals: Unremarkable. Kidneys: Bilateral renal cysts. Punctate nonobstructing left lower renal calculus. No hydronephrosis. Bladder: Minimally distended. Reproductive Organs: Unremarkable. Bowel: Moderate retained fecal material throughout the colon. No ascites or pneumoperitoneum. No inflammatory mass in the expected region of the appendix. Lymph nodes: No suspicious lymph node enlargement. Vasculature: Moderate calcific plaque throughout the aortoiliac vessels. Bones/soft tissues: Severe thoracolumbar spondylosis. Slight decreased size of the right retroareolar mass. CT/Abdomen/Pelvis W IV Cont ONLY IMPRESSION: 1. No acute abdominopelvic finding. 2. Loculated left lower lobe fluid collection with adjacent atelectasis, new si nce prior examination. Findings most compatible with empyema. 3. Slight decreased size of the right retroareolar mass, which remains suspicio us for malignancy. One or more dose reduction techniques were used (e.g., Automated exposure contr ol, adjustment of the mA and/or kV according to patient size, use of iterative reconstruction technique). Reading Location: [id number]
--- NOTE | 2024-08-12 01:27 | RAD_ITS ---
PROCEDURE: CHEST 1 VIEW (PORTABLE) REASON FOR EXAM: 84-year-old male, cough and fever. TECHNIQUE: Frontal view of the chest. COMPARISON: Chest radiograph 07/28/2024. FINDINGS: The heart size is normal. Stable small left pleural effusion with adjacent atelectasis. Degenerative changes are identified within the thoracic spine. RAD/Chest 1 View (Portable) IMPRESSION: Stable small left pleural effusion with adjacent atelectasis. Reading Location: [id number]
[2024-08-12] MEDS: Ibuprofen 600 MG Tablet PO (02:47)
[2024-08-12 03:03] LABS: Bacteria 0 SEEN /hpf (None Seen); Mucous, Urine 0 SEEN /hpf (<or=2+); Squamous Epithelial Cells - UA 0 SEEN /hpf (0-5); White Blood Cells 0 SEEN /hpf (0-5)
[2024-08-12 03:04] LABS: Color, Urine Yellow (Yellow); Glucose, Dipstick Normal (Normal); Ketone-Dipstick Negative (Negative); Leukocyte Esterase-Dipstick 25 /ul (Negative); Nitrite-Dipstick Negative (Negative); Occult Blood-Urine 150 /ul (Negative); Protein-Dipstick 30 mg/dl (Negative); Urine Bilirubin Dipstick Negative (Negative); Urine Clarity Clear (Clear); Urine Urobilinogen Normal (Normal)
[2024-08-12 03:23] LABS: Red Blood Cells-Urine 0-5 SEEN /hpf (0-5)
[2024-08-12] MEDS: 0.9% Normal Saline (500mL Bag) 500 ML 999 ML IV (03:26)
[2024-08-12] MEDS: Midodrine HCl 5 MG Tablet PO ×2 (03:27→07:55)
--- NOTE | 2024-08-12 03:42 | CT_ITS ---
PROCEDURE: CHEST WITHOUT CONTRAST REASON FOR EXAM: 64-year-old male, concern for empyema. TECHNIQUE: Chest CT without contrast. COMPARISON: Same-day abdominal and pelvic CT. CT chest 05/27/2024. FINDINGS: Hardware: None. Lymph nodes: Bilateral axillary lymphadenopathy, improved since prior examination. No mediastinal or hilar lymphadenopathy. Heart and Vasculature: Normal heart size. No pericardial effusion. Thoracic aorta and pulmonary arteries have normal contours; noncontrast technique limits evaluation. Severe coronary artery and moderate thoracic aortic calcifications. Lungs and Airways: The central airways are patent. Mild emphysema and scattered areas of scarring. Large left pleural fluid collection with adjacent atelectasis. Additional pleural thickening of the posterior left upper lobe and fissure. Bones: Degenerative changes of the thoracic spine. Bilateral glenohumeral joint arthrosis. Right subareolar mass, which has slightly decreased in size since prior examination in May. CT/Chest without Contrast IMPRESSION: 1. Left lower lobe empyema. 2. Slight decreased size of the right subareolar mass and bilateral axillary ly mphadenopathy, suspicious for malignancy and metastatic disease. One or more dose reduction techniques were used (e.g., Automated exposure contr ol, adjustment of the mA and/or kV according to patient size, use of iterative reconstruction technique). Reading Location: [id number]
[2024-08-12 04:14] LABS: Procalcitonin 0.45 ng/mL (0.00-0.09)
--- NOTE | 2024-08-12 05:47 | ED.RN ---
contacted [facility] for transfer. Faxed face sheet.
[2024-08-12] MEDS: Piperacil/Tazobactam 3.375 GM in 0.9% Normal Saline (50mL MB+) 50 ML IV (06:08)
[2024-08-12 06:44] LABS: Lactic Acid 0.7 mmol/L (0.4-1.9)
[2024-08-12] MEDS: Vancomycin HCl 1,250 MG in 0.9% Normal Saline (250mL Bag) 250 ML 167 MG IV (07:07)
--- NOTE | 2024-08-12 07:34 | ED.RN ---
CALLED [facility] @ [phone] STILL WAITING ON AN UPDATED FROM ICU, STATED IT WAS SHIFT CHANGE
--- NOTE | 2024-08-12 07:52 | EX.ED.DYSGE1 ---
HPI History of Present Illness Chief Complaint: Nausea/Vomiting/Diarrhea Informant: patient and family Narrative Narrative: Patient is an 84-year-old male with past medical history of of paroxysmal atrial fibrillation hypertension BPH GERD hypothyroidism and recent diagnosis of breast cancer on tamoxifen he is a DNR Comfort Care arrest no intubation. He was in the hospital on July 28 secondary to fevers and was found to have pneumonia. He was admitted to the hospital received IV antibiotics and after spending multiple days in the hospital was transferred out to long-term care on oral antibiotics. 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 History of iron deficiency anemia Cervical spinal stenosis Neuropathic pain Atrial fibrillation TIA (transient ischemic attack) History of ST elevation myocardial infarction (STEMI) (01/11/16) 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) Essential hypertension Peripheral arterial occlusive disease History of basal cell cancer Cervical radiculopathy Stenosis of cervical spine with myelopathy Debility Restless leg syndrome Normochromic normocytic anemia Orthostatic hypotension Depression Urine retention Urinary incontinence Left ventricular hypertrophy BPH (benign prostatic hyperplasia) Pressure ulcer Myelopathy Tobacco dependence in remission Renal cyst Osteoarthritis Microscopic hematuria Eczema Anterolisthesis Leg swelling PAD (peripheral artery disease) Hyperlipidemia Atherosclerotic heart disease of [place] coronary artery without angina pectoris Paroxysmal atrial fibrillation Dilated aortic root Home Medications ?Medication ?Instructions ?Recorded ?Last Taken ?Type finasteride 5 mg tablet (Proscar) 5 mg PO DAILY PROSTATES 07/18/17 02/25/24 History cilostazol 50 mg tablet 50 mg PO BID vasodilator 02/02/22 02/25/24 History ascorbic acid (vitamin C) 500 mg 500 mg PO 1200 vitamin #1 TAB 07/25/23 02/24/24 Rx tablet ferrous sulfate 325 mg (65 mg 325 mg PO DAILY@1200 supplement #1 07/25/23 02/24/24 Rx iron) tablet (FeroSul) TAB ammonium lactate 12 % topical cream 1 applic topical QHS Achalasia of 11/30/23 07/10/24 History cardia mirtazapine 7.5 mg tablet 7.5 mg PO QHS mental health 11/30/23 02/24/24 History gabapentin 100 mg capsule 100 mg PO BIDCM nerve pain #30 caps 12/04/23 02/25/24 Rx pantoprazole 40 mg tablet,delayed 40 mg PO DAILY reflux #60 tabs 02/12/24 02/25/24 Rx release (Protonix) atorvastatin 20 mg tablet 20 mg PO QHS cholesterol 02/25/24 07/10/24 History hydrocortisone 2.5 % topical cream 1 applic topical BID skin 02/25/24 02/24/24 History sucralfate 100 mg/mL oral 1 g PO 4X/DAY GERD 02/25/24 Unknown History suspension (Carafate) ondansetron 4 mg disintegrating 4 mg PO Q8H PRN PRN Nausea #10 tabs 05/23/24 Unknown Rx tablet citalopram 10 mg tablet 10 mg PO QDAY Depression 06/15/24 Unknown History potassium chloride 20 mEq 20 meq PO QDAY supplement 06/23/24 Unknown History tablet,extended release(part/cryst) tizanidine 2 mg tablet 2 mg PO QHS PRN muscle spasticity 06/23/24 Unknown History acetaminophen 500 mg tablet 1,000 mg PO BID arthritis 06/25/24 Unknown History tamoxifen 20 mg tablet 100 mg (5 x 20 mg) PO QDAY 07/08/24 Unknown Rx malignant neoplasm of skin 30 days #450 tabs cyanocobalamin (vitamin B-12) 1,000 mcg PO DAILY Vitamin B-12 07/11/24 Unknown History 1,000 mcg capsule deficiency anemia arginine 7 gram-glutam 7 1 packet PO BIDCM #0 ea 07/15/24 Unknown Rx gram-CaHMB 1.5 [id number] oral pwd pkt (Boaz (with collagen)) melatonin 3 mg tablet 3 mg PO QHS PRN PRN Insomnia #0 07/15/24 Unknown Rx tabs Lactobacillus acidophilus 250 250 mmu cells PO 4X/DAY probiotic 07/28/24 Unknown History million cell capsule midodrine 5 mg tablet 5 mg PO TIDCM blood pressure 07/28/24 Unknown History prednisone 10 mg tablet 10 mg PO DAILY steroid 07/28/24 Unknown History cefdinir 300 mg capsule 300 mg PO BID #6 caps 08/01/24 Unknown Rx doxycycline hyclate 100 mg tablet 100 mg PO BID #6 tabs 08/01/24 Unknown Rx albuterol sulfate 2.5 mg/3 mL 2.5 mg inhalation BID 08/12/24 Unknown History (0.083 %) solution for nebulization levothyroxine 25 mcg tablet 25 mcg PO DAILY@0600 thyroid 08/12/24 Unknown History promethazine 25 mg/mL injection 12.5 mg IM Q6H 08/12/24 Unknown History solution (Phenergan) Allergy/AdvReac Type Severity Reaction Status Date / Time morphine AdvReac Intermediate Other Verified 08/11/24 22:44 Family History Mother CHF (congestive heart failure) Heart disease Hypertension Father COPD (chronic obstructive pulmonary disease) Surgical History S/P debridement History of vascular surgery History of coronary artery stent placement (01/11/16) H/O laminectomy History of knee surgery S/P rotator cuff repair History of pilonidal cyst Social History household members: none housing: house number of children: 5 current occupation: retired current occupational exposures/hazards: No history of recent travel: No Smoking Status: Former smoker how long ago did patient quit smokin alcohol intake: current alcohol intake frequency: holidays/special occasions only details: occasional,holiday substance use type: does not use caffeine: Yes Type: coffee Number of servings: 10 what type of physical activity do you participate in: bicycling frequency: 1-2 times per week duration: 15-30 minutes/day seatbelt use: always do you feel safe at home: Yes ROS ROS ED Constitutional Constitutional ED: Reports chills and fever(s) ENT ENT ED: Denies sore throat Cardiovascular Cardiovascular: Denies chest pain Respiratory/Chest Respiratory/Chest: Reports cough and dyspnea Gastrointestinal Gastrointestinal: Reports abdominal pain, diarrhea, nausea and vomiting Genitourinary Genitourinary ED: Denies dysuria Musculoskeletal Musculoskeletal: Reports myalgias Integumentary Denies rash Neurologic Neurologic: Denies headache(s) Hematologic/Lymphatic Hematologic/Lymphatic: Denies easy bleeding or easy bruising EXAM Physical Exam Const Vital Signs: 08/11/24 22:44 08/11/24 22:49 08/11/24 22:50 Temperature 99.7 F H Temperature Source Axillary Pulse Rate 90 83 Respiratory Rate 18 17 Blood Pressure 116/83 H Blood Pressure Mean 94 Pulse Ox 85 91 95 Oxygen Delivery Method Nasal Cannula Nasal Cannula Nasal Cannula Oxygen Flow Rate (L/min) 2 2 2 08/11/24 22:53 08/11/24 23:57 08/12/24 00:44 Temperature 99.6 F H 99.5 F H Temperature Source Axillary Axillary Pulse Rate 83 89 94 Respiratory Rate 19 H 20 H 16 Blood Pressure 115/63 117/70 121/80 H Blood Pressure Mean 80 85 93 Pulse Ox 93 95 92 Oxygen Delivery Method Nasal Cannula Nasal Cannula Nasal Cannula Oxygen Flow Rate (L/min) 2 2 2 08/12/24 01:47 08/12/24 02:41 08/12/24 03:00 Temperature 101.6 F H 101.6 F H Temperature Source Axillary Oral Pulse Rate 90 94 Respiratory Rate 28 H 21 H Blood Pressure 121/80 H 89/53 L Blood Pressure Mean 93 65 Pulse Ox 94 94 Oxygen Delivery Method Room Air Nasal Cannula Oxygen Flow Rate (L/min) 2 08/12/24 03:31 08/12/24 03:32 08/12/24 05:00 Temperature Temperature Source Pulse Rate 100 102 H 78 Respiratory Rate 30 H 24 H 23 H Blood Pressure 89/53 L Blood Pressure Mean 65 Pulse Ox 83 92 95 Oxygen Delivery Method Nasal Cannula Nasal Cannula Nasal Cannula Oxygen Flow Rate (L/min) 2 4 4 08/12/24 07:08 08/12/24 07:11 08/12/24 08:01 Temperature 98.6 F Temperature Source Oral Pulse Rate 78 68 84 Respiratory Rate 16 23 H 14 Blood Pressure 89/53 L 86/45 L 104/58 L Blood Pressure Mean 65 58 73 Pulse Ox 91 90 98 Oxygen Delivery Method Room Air Nasal Cannula Nasal Cannula Oxygen Flow Rate (L/min) 4 4 Positive well developed and cachectic General Appearance ED: well developed and cachectic Nutritional Appearance: cachectic HEENT Reports dry mucous membranes HEENT Narrative: Mucous membranes are dry and tacky. No tongue or lip swelling noted There is cobblestoning in the posterior pharynx consistent with sinus drainage without secondary changes to suggest infection Mouth ED: Yes dry mucous membranes Mouth: dry mucous membranes Eyes PERRL and EOMs intact bilaterally General Eye ED: Negative for scleral icterus Neck supple Neck Narrative: No nuchal rigidity or meningeal signs noted Resp Resp Narrative: Breath sounds are diminished throughout with rhonchi and crackles noted but mainly in the left lower lobe but no signs of respiratory distress Cardio regular rate and regular rhythm GI non-tender, non-distended and no masses GI Narrative: Abdomen is soft nontender nondistended with normal active bowel sounds. No voluntary guarding or rigidity or pulsatile mass. No organomegaly noted Auscultation: normoactive bowel sounds Palpation: soft Extremity normal to inspection Extremity Narrative: No asymmetric edema no pitting edema negative Homans' sign bilaterally Neuro oriented x3 and CN's II-XII intact bilaterally Sensorium / Orientation: alert Psych mental status grossly normal Skin no rashes or lesions noted and No skin turgor normal Skin Narrative: Skin turgor is increased General Skin Exam: Negative for jaundice MDM MDM MDM Narrative Medical decision making narrative: Patient arrived to the ER febrile but satting in the mid to low 90s on his normal 2 L. He was recently just admitted for pneumonia but this time does not appear to be in respiratory distress and with reports of nausea vomiting diarrhea there is now concern for intestinal infection such as norovirus or rotavirus versus COVID versus RSV versus influenza. Basic blood work was obtained and shows leukocytosis and with leukocytosis and patient spiking a fever up to almost 102 in the ER and the fact he is immunosuppressed on tamoxifen I did feel the need to perform a CT scan of the abdomen pelvis to check for intestinal infection such as colitis or diverticulitis or intestinal abscess. CT scan showed no signs of intestinal infection but did show what appeared to be an empyema in the left lower lobe. Therefore the patient was sent back for a CT of his chest for an improved visualization of the potential infectious process. CT scan did confirm empyema. Following this patient was started on vancomycin and Zosyn and blood cultures were obtained. The patient was given a total of 1.5 L of fluid his blood pressure is soft but he has a past medical history of hypotension and takes midodrine 3 times a day. Chart review reveals he had a CTA of his chest on July 11 which at that time showed patchy infiltrates on the right lower lobe and just a small left pleural effusion. It displays that x-rays from his recent admission on July 28 showed a small left pleural effusion with left basilar atelectasis or pneumonia. Therefore there is concern that this type of infection has been what ever worsening since the previous admission on July 28 and it is not uncommon for lower lobe pneumonia to lead to GI symptoms. At this time as patient has a empyema and is immunosuppressed he will need evaluated at a higher level of care where they can perform potentially a thoracentesis or VATS procedure and we do not have the ability to perform that without cardiothoracic surgery. At this time we have reached out to [facility] for transfer but have not received a call back. [facility] and return my phone call and talk to the nitrating acid mixer Dr. Cabello. He agrees patient needs sent to their facility and admitted but he is unsure if he would require admission to the ICU at this time. He recommends ER to ER transfer so that they can lay eyes on him and decide proper treatment such as admission to the ICU or drain placement. Therefore the case was discussed with the ER attending Dr. Parry. I talked she agrees to accept the patient to transfer and therefore patient will be sent to their facility for further care History & Record Review Discussion w/independent historian: Patient and Family Lab Data Attestation: I reviewed the patient's lab results. Labs: Laboratory Results - last 24 hr 08/11/24 08/12/24 08/12/24 23:01 02:40 02:52 WBC 12.6 H RBC 4.00 L Hgb 12.1 L Hct 38.5 L MCV 96.3 H MCH 30.3 MCHC 31.4 L RDW Std Deviation 47.3 H RDW Coeff of [place] 13.2 Plt Count 348 MPV 11.2 Immature Gran % (Auto) 0.400 Neut % (Auto) 92.2 H Lymph % (Auto) 2.4 L [place] % (Auto) 4.4 Eos % (Auto) 0.4 Baso % (Auto) 0.2 Absolute Neuts (auto) 11.7 H Absolute Lymphs (auto) 0.30 L Nucleated RBC % 0 Sodium 137 Potassium 5.9 H Chloride 102 Carbon Dioxide 33.0 H Anion Gap 1 L BUN 38 H Creatinine 0.92 Estim Creat Clear Calc 59.77 Est GFR (MDRD) Af Amer 101 Est GFR (MDRD) Non-Af 83 BUN/Creatinine Ratio 41.3 H Glucose 104 Lactic Acid Calcium 8.8 Total Bilirubin 0.60 Direct Bilirubin 0.18 AST 37 ALT 37 Alkaline Phosphatase 87 Total Protein 7.6 Albumin 2.3 L Globulin 5.3 H Lipase 49 L Procalcitonin 0.45 H Urine Color Yellow Urine Clarity Clear Urine pH 5.0 Ur Specific [place] 1.010 Urine Protein 30 H Urine Glucose (UA) Normal Urine Ketones Negative Urine Occult Blood 150 H Urine Nitrite Negative Urine Bilirubin Negative Urine Urobilinogen Normal Ur Leukocyte Esterase 25 H Urine RBC 0-5 SEEN Urine WBC 0 SEEN Ur Squamous Epith Cells 0 SEEN Urine Bacteria 0 SEEN Urine Mucus 0 SEEN 08/12/24 05:50 WBC RBC Hgb Hct MCV MCH MCHC RDW Std Deviation RDW Coeff of [place] Plt Count MPV Immature Gran % (Auto) Neut % (Auto) Lymph % (Auto) [place] % (Auto) Eos % (Auto) Baso % (Auto) Absolute Neuts (auto) Absolute Lymphs (auto) Nucleated RBC % Sodium Potassium Chloride Carbon Dioxide Anion Gap BUN Creatinine Estim Creat Clear Calc Est GFR (MDRD) Af Amer Est GFR (MDRD) Non-Af BUN/Creatinine Ratio Glucose Lactic Acid 0.7 Calcium Total Bilirubin Direct Bilirubin AST ALT Alkaline Phosphatase Total Protein Albumin Globulin Lipase Procalcitonin Urine Color Urine Clarity Urine pH Ur Specific [place] Urine Protein Urine Glucose (UA) Urine Ketones Urine Occult Blood Urine Nitrite Urine Bilirubin Urine Urobilinogen Ur Leukocyte Esterase Urine RBC Urine WBC Ur Squamous Epith Cells Urine Bacteria Urine Mucus Radiography Diagnostic Testing: Clinical Impression(s) from Imaging Studies Abdomen/Pelvis CT 08/12/24 01:27 IMPRESSION: 1. No acute abdominopelvic finding. 2. Loculated left lower lobe fluid collection with adjacent atelectasis, new since prior examination. Findings most compatible with empyema. 3. Slight decreased size of the right retroareolar mass, which remains suspicious for malignancy. One or more dose reduction techniques were used (e.g., Automated exposure control, adjustment of the mA and/or kV according to patient size, use of iterative reconstruction technique). Reading Location: [facility] Chest X-Ray 08/12/24 01:27 IMPRESSION: Stable small left pleural effusion with adjacent atelectasis. Reading Location: [facility] Chest CT 08/12/24 03:42 IMPRESSION: 1. Left lower lobe empyema. 2. Slight decreased size of the right subareolar mass and bilateral axillary lymphadenopathy, suspicious for malignancy and metastatic disease. One or more dose reduction techniques were used (e.g., Automated exposure control, adjustment of the mA and/or kV according to patient size, use of iterative reconstruction technique). Reading Location: [facility] Chest x-ray as interpreted by the emergency medicine physician reveals a left pleural effusion with atelectasis Discharge Plan Triage Chief Complaint: Nausea/Vomiting/Diarrhea ED Provider: James Jacinto Dx/Rx/DC Orders Clinical Impression: Empyema, BPH (benign prostatic hyperplasia), GERD (gastroesophageal reflux disease), Hypothyroidism, Nausea vomiting and diarrhea Prescriptions: No Action finasteride [Proscar] 5 mg tablet 5 mg PO DAILY cilostazol 50 mg tablet 50 mg PO BID tizanidine 2 mg tablet 2 mg PO QHS PRN (Reason: muscle spasticity) potassium chloride 20 mEq tablet,ER particles/crystals 20 meq PO QDAY citalopram 10 mg tablet 10 mg PO QDAY tamoxifen 20 mg tablet 100 mg PO QDAY 30 Days Qty: 450 3RF acetaminophen 500 mg tablet 1,000 mg PO BID ascorbic acid (vitamin C) 500 mg Tablet 500 mg PO 1200 Qty: 1 0RF ferrous sulfate [FeroSul] 325 mg (65 mg iron) Tablet 325 mg PO DAILY@1200 Qty: 1 0RF mirtazapine 7.5 mg tablet 7.5 mg PO QHS ammonium lactate 12 % cream 1 applic topical QHS gabapentin 100 mg capsule 100 mg PO BIDCM Qty: 30 0RF pantoprazole [Protonix] 40 mg tablet,delayed release (DR/EC) 40 mg PO DAILY Qty: 60 0RF atorvastatin 20 mg tablet 20 mg PO QHS sucralfate [Carafate] 100 mg/mL suspension 1 g PO 4X/DAY Rx Instructions: BEFORE MEALS AND AT BEDTIME hydrocortisone 2.5 % cream 1 applic topical BID Rx Instructions: apply to bilat hands cyanocobalamin (vitamin B-12) 1,000 mcg capsule 1,000 mcg PO DAILY [place]az (with collagen) 7-7-1.5 gram Powder In Packet 1 packet PO BIDCM Qty: 0 0RF melatonin 3 mg Tablet 3 mg PO QHS PRN PRN (Reason: Insomnia) Qty: 0 0RF albuterol sulfate 2.5 mg /3 mL (0.083 %) solution for nebulization 2.5 mg inhalation BID Rx Instructions: for 3 doses promethazine [Phenergan] 25 mg/mL solution 12.5 mg IM Q6H levothyroxine 25 mcg Tablet 25 mcg PO DAILY@0600 ondansetron 4 mg tablet,disintegrating 4 mg PO Q8H PRN PRN (Reason: Nausea) Qty: 10 0RF Lactobacillus acidophilus 250 million cell capsule 250 mmu cells PO 4X/DAY prednisone 10 mg tablet 10 mg PO DAILY midodrine 5 mg Tablet 5 mg PO TIDCM Rx Instructions: Hold for SBP > 130 cefdinir 300 mg capsule 300 mg PO BID Qty: 6 0RF doxycycline hyclate 100 mg tablet 100 mg PO BID Qty: 6 0RF Primary Care Provider: Lorraine Barker Referrals: Lorraine Barker MD [Primary Care Provider] - Print Language: [place] Disposition Disposition: Acute Care Hospital Discharge Location: [facility]
--- NOTE | 2024-08-12 08:37 | ED.RN ---
ACCEPTED @ [facility] ED TO ED RIDE COMING AT 1046
--- NOTE | 2024-08-12 10:29 | ED.RN ---
I CALLED PHYSICIANS FOR AN EST. ETA FOR THIS BED. THEY CHANGED THE ETA TO 1130 BUT DID NOT NOTIFY US. THE ONLY REASON I KNEW BECAUSE I CALLED.
== END 2024-08-12 12:32 | disposition short-term general hospital (02) ==
PROVIDERS: Emergency Provider Emergency Medicine; PCP Internal Medicine; Visit Provider Emergency Medicine
DX: J86.9 Pyothorax without fistula (principal); E03.9 Hypothyroidism, unspecified; K21.9 Gastro-esophageal reflux disease without esophagitis; N40.0 Benign prostatic hyperplasia without lower urinary tract symptoms; R11.2 Nausea with vomiting, unspecified; R19.7 Diarrhea, unspecified; Z95.5 Presence of coronary angioplasty implant and graft; Z66 Do not resuscitate; Z79.890 Hormone replacement therapy; Z79.899 Other long term (current) drug therapy; Z87.891 Personal history of nicotine dependence
CPT/HCPCS: 36415; 71045; 71250; 74177; 80048; 80076; 81001; 83605; 83690; 84145; 85025; 87040; 87631; 96361; 96365; 96366; 96367; 96375; 99285; Q9967; A4216